=== PATIENT | male | born 1965 | race Caucasian/White ===

== ENCOUNTER → 2019-11-02 17:10 | Outpatient (CLI) | payer MEDICAID, SELFPAY ==
[2019-11-02 17:57] LABS: Chloride 103 mmol/L (98-107); Potassium 4.5 mmoL/L (3.5-5.1); Sodium 137 mmol/L (136-145)
[2019-11-02 17:59] LABS: Blood Urea Nitrogen 6 mg/dl (9-20); Estimated Glomerular Filt Rate 118 ml/min (>60); GFR (African American) 142 ML/MIN (>60)
[2019-11-02 18:00] LABS: Alanine Aminotransferase 41 U/L (12-78); Albumin Level 3.7 g/dl (3.5-5.0); Albumin/Globulin Ratio 1.3 (1.1-1.8); Alkaline Phosphatase 215 U/L (38-126); Anion Gap 11.5 mEq/L (5-15); Aspartate Amino Transferase 61 U/L (17-59); Bilirubin,Total 0.7 mg/dl (0.2-1.3); Carbon Dioxide 27 mmol/L (22.0-30.0); Globulin 2.8 g/dL (1.3-3.2); Glucose 90 mg/dl (74-100); Lipase 177 U/L (23-300); Total Protein,Serum 6.5 g/dl (6.3-8.2)
== END ==
PROVIDERS: Visit Provider Family Medicine
DX: E87.6 Hypokalemia (principal)
CPT/HCPCS: 80053; 83690

== ENCOUNTER 2019-11-15 00:03 | Inpatient (IN) | payer MEDICAID, SELFPAY ==
[2019-11-15] VITALS (22 sets, daily range): BP systolic 124–163; BP diastolic 57–94; PULSE 76–122; RESP 16–18; TEMP 36.7–36.9; O2SAT 96–100; BMI 25.8; BMI 24.6; BMI 24.7
--- NOTE | 2019-11-15 00:26 | CT_ITS ---
PROCEDURE: CT ABDOMEN PELVIS W CON CLINICAL INDICATION: abd pain Generalized abdominal with nausea and vomiting with loss of COMPARISON: No exams were available for comparison TECHNIQUE: IV Contrast: 75ML OPTIRAY 350 Oral Contrast None Axial images obtained with sagittal and coronal reformats. All CT scans at the facility use one or more dose reduction, viz: automated exposure control, ma/kV adjustment per patient size (including targeted exams where dose is matched to indication, i.e. head), or iterative reconstruction technique. FINDINGS: LOWER THORAX: No acute finding ABDOMEN & PELVIS: The liver, spleen, and adrenal glands have an unremarkable appearance. Gallbladder slightly distended with gallstones. There is wispy and homogeneous peripancreatic fluid attenuation without definite mead adjacent to the pancreatic body and tail. Edematous changes are present within the pancreas body and tail the. There is some decreased attenuation of the pancreatic tail and lateral body. A 2 mm stone is present within the pancreatic duct image 42 series 3. No pancreatic gas. There is stranding of the left anterior pararenal fascia. Edematous changes are present involving the wall the stomach. No renal or ureteral calculi or hydronephrosis. There are left renal cysts. No intestinal obstruction or free air. Unremarkable appendix. There is thickening of the descending colon. There is scattered small mesenteric lymph nodes nonspecific. IMPRESSION: The findings are compatible with acute interstitial edematous pancreatitis with acute peripancreatic inflammation with a small amount of peripancreatic fluid. There is some decreased enhancement of the tail the pancreas. Cannot exclude the possibility of acute necrotic pancreatitis. Follow-up suggested. Small stone is present in the pancreatic duct Cholelithiasis. Dictated by: Pk Jacobsen MD 11/15/2019 08:28 Electronically signed by Pk Jacobsen MD in [place] 11/15/2019 08:28
[2019-11-15 00:32] LABS: Microscopic, Urine URINE MICROSCOPIC (MICROSCOPIC)
[2019-11-15 00:33] LABS: Appearance,Urine CLEAR (Clear); Bilirubin,Urine Negative (Negative); Blood, Urine Negative (Negative); Color,Urine YELLOW (Yellow); Glucose,Urine (UA) Negative (Negative); Ketones,Urine Negative (Negative); Leukocyte Esterase,Urine Negative (Negative); Nitrate,Urine Negative (Negative); Protein,Urine Negative (Negative); Specific Gravity, Urine 1.025 (1.005-1.030); Urobilinogen,Urine 0.2 EU/dl (0.2)
[2019-11-15 01:18] LABS: Basophils % 0.3 % (0.1-2.0); Eosinophils # 0.1 K/mm3 (0.0-0.4); Eosinophils % 0.9 % (0.1-12.0); Hematocrit 48.8 % (42.0-52.0); Hemoglobin 16.9 g/dL (14.1-18.0); Lymphocytes # 2.2 K/mm3 (0.7-4.5); Lymphocytes % 17.7 % (10-50); Mean Corpuscular HGB Conc 34.7 g/dL (31.8-35.4); Mean Corpuscular Hemoglobin 32.9 pg (27.0-31.2); Mean Corpuscular Volume 94.7 fl (80-94); Mean Platelet Volume 8.1 fl (7.4-10.4); Monocytes # 0.7 K/mm3 (0.1-1.0); Monocytes % 5.9 % (1.7-9.3); Neutrophils # 9.2 K/mm3 (1.8-7.8); Neutrophils % 75.3 % (37.0-80.0); Platelet Count 313 K/mm3 (142-424); Red Blood Count 5.15 M/mm3 (4.60-6.20); Red Cell Distribution Width 13.7 % (11.5-17.5); White Blood Count 12.3 K/mm3 (4.8-10.8)
[2019-11-15 01:24] LABS: Alanine Aminotransferase 58 U/L (12-78); Albumin Level 4.6 g/dl (3.5-5.0); Albumin/Globulin Ratio 1.3 (1.1-1.8); Alkaline Phosphatase 264 U/L (38-126); Amylase 122 U/L (30-110); Anion Gap 17.7 mEq/L (5-15); Aspartate Amino Transferase 91 U/L (17-59); Bilirubin,Total 0.8 mg/dl (0.2-1.3); Blood Urea Nitrogen 7 mg/dl (9-20); Calcium 9.6 mg/dl (8.4-10.2); Carbon Dioxide 26 mmol/L (22.0-30.0); Chloride 92 mmol/L (98-107); Creatinine Clearance Estimated 154 mL/min (50-200); Estimated Glomerular Filt Rate 140 ml/min (>60); GFR (African American) 170 ML/MIN (>60); Globulin 3.5 g/dL (1.3-3.2); Glucose 140 mg/dl (74-100); Potassium 3.7 mmoL/L (3.5-5.1); Sodium 132 mmol/L (136-145); Total Protein,Serum 8.1 g/dl (6.3-8.2)
[2019-11-15 01:26] LABS: Lipase 734 U/L (23-300)
[2019-11-15 01:29] LABS: C-Reactive Protein 0.9 mg/L (0-4)
[2019-11-15 01:41] LABS: Erythrocyte Sedimentation Rate 4 mm/hr (0-20)
--- NOTE | 2019-11-15 02:54 | HMH.EDNVD ---
ED Disposition Clinical Impression: Alcohol abuse Pancreatitis, acute Qualifiers: Pancreatitis type: unspecified pancreatitis type Acute pancreatitis complication: no infection or necrosis Qualified Code(s): K85.90 - Acute pancreatitis without necrosis or infection, unspecified Cholelithiasis Qualifiers: Cholelithiasis location: gallbladder Cholecystitis presence: with cholecystitis Cholecystitis acuity: acute and chronic Biliary obstruction: without biliary obstruction Qualified Code(s): K80.12 - Calculus of gallbladder with acute and chronic cholecystitis without obstruction Disposition: Admitted As Inpatient Condition on Discharge: Fair Instructions: DI for Acute Abdomen Referrals: Richard Edgar MD [Primary Care Provider] - - Critical Care Critical Care Time: No Attestation: On 11/15/19, the high probability of a clinically significant, sudden or life threatening deterioration of the following system(s) required my full and direct attention, intervention and personal management. The time I documented below is in addition to time spent performing reported procedures but includes the following listed in this critical care notation. Medical Decision Making - Medical Records Medical records reviewed: Yes: I reviewed the patient's medical records. - Medhat Inquiry Pt receiving controlled substance: No Vital Signs: 11/15/19 00:14 Temperature 98.4 F Temperature Source Oral Pulse Rate [Right] 122 H Respiratory Rate 16 Blood Pressure [Right Arm] 155/91 H Blood Pressure Mean [Right Arm] 112 Blood Pressure Source [Right Arm] Automatic Cuff Blood Pressure Position [Right Arm] Sitting 02 Sat by Pulse Oximetry 98 Oxygen Delivery Method Room Air - Lab Data Lab results reviewed: Yes: I reviewed the patient's lab results. Lab Results 11/15/19 00:15: Urine Color Yellow, Urine Appearance Clear, Urine pH 6.0, Ur Specific [place] 1.025, Urine Protein Negative, Urine Glucose (UA) Negative, Urine Ketones Negative, Urine Blood Negative, Urine Nitrate Negative, Urine Bilirubin Negative, Urine Urobilinogen 0.2, Ur Leukocyte Esterase Negative, Urine WBC 3-5, Ur Squamous Epith Cells 3-5 11/15/19 00:15: WBC 12.3 H, RBC 5.15, Hgb 16.9, Hct 48.8, MCV 94.7 H, MCH 32.9 H, MCHC 34.7, RDW 13.7, Plt Count 313, MPV 8.1, Neut % (Auto) 75.3, Lymph % (Auto) 17.7, [place] % (Auto) 5.9, Eos % (Auto) 0.9, Baso % (Auto) 0.3, Neut # (Auto) 9.2 H, Lymph # (Auto) 2.2, [place] # (Auto) 0.7, Eos # (Auto) 0.1, Baso # (Auto) 0.0, ESR 4 11/15/19 00:15: Sodium 132 L, Potassium 3.7, Chloride 92 L, Carbon Dioxide 26, Anion Gap 17.7 H, BUN 7 L, Creatinine 0.60 L, Estimated Creat Clear 154, Estimated GFR 140, Est GFR ( Amer) 170, Glucose 140 H, Calcium 9.6, Total Bilirubin 0.8, AST 91 H, ALT 58, Alkaline Phosphatase 264 H, C-Reactive Protein 0.9, Total Protein 8.1, Albumin 4.6, Globulin 3.5 H, Albumin/Globulin Ratio 1.3, Amylase 122 H, Lipase 734 H 11/15/19 00:15: Plasma/Serum Alcohol 84 H Result diagrams: 11/15/19 00:15 11/15/19 00:15 Orders (Tests/Meds): ED MEDICATIONS Generic Name Dose Route Start Last Admin Trade Name Freq PRN Reason Stop Dose Admin Sodium Chloride 1,000 mls @ 999 mls/hr 11/15/19 00:30 11/15/19 00:33 Sod Chlor 0.9% 1000ml Bag IV 11/15/19 01:30 999 mls/hr .Q1H1M BUZZ Administration Sodium Chloride 8 ml 11/15/19 00:26 Sodium Chloride 0.9% 10ml Vial IV 12/15/19 00:25 NEEDED PRN dilute pepcid Discontinued Medications Generic Name Dose Route Start Last Admin Trade Name Freq PRN Reason Stop Dose Admin Famotidine 20 mg 11/15/19 00:26 11/15/19 00:33 Pepcid 20mg/2ml Vial IV 11/15/19 00:27 20 mg ONCE ONE Administration Ioversol 75 ml 11/15/19 01:53 11/15/19 01:54 Rad-Optiray 350 100ml Vial IV 11/15/19 01:54 75 ml ONCE ONE Administration Protocol Ketorolac Tromethamine 30 mg 11/15/19 00:32 11/15/19 00:33 Toradol 30mg/Ml Vial IV 11/15/19 00:33 30 mg ONCE ONE
[2019-11-15 03:01] LABS: Ethyl Alcohol 84 mg/dl (0-10)
--- NOTE | 2019-11-15 06:54 | P.CONPHA_ITS ---
[facility] Pharmacy VTE Monitoring - Patient Demographics Admission date: 11/15/19 Report Date: 11/15/19 Time: 06:54 Allergies/Adverse Reactions: Patient Allergies cephalexin [From Keflex] Allergy (Mild, Verified 11/15/19 00:34) Hives diphenhydramine [DIPHENHYDRAMINE] Allergy (Unknown, Verified 11/15/19 00:34) sulfamethoxazole [From BACTRIM] Allergy (Unknown, Verified 11/15/19 00:34) trimethoprim [From BACTRIM] Allergy (Unknown, Verified 11/15/19 00:34) Height: 1.73 m Weight: 73.539 kg Patient Problems: Current Active Problems Pancreatitis, acute (Acute) Cholelithiasis (Acute) Alcohol abuse (Acute) - VTE Risk Labs: VTE Related Lab Results Hgb 16.9 g/dL (14.1-18.0) 11/15/19 00:15 Hct 48.8 % (42.0-52.0) 11/15/19 00:15 Plt Count 313 K/mm3 (142-424) 11/15/19 00:15 BUN 7 mg/dl (9-20) L 11/15/19 00:15 Creatinine 0.60 mg/dl (0.66-1.25) L 11/15/19 00:15 Estimated Creat Clear 154 mL/min (50-200) 11/15/19 00:15 VTE Score: 6 VTE Risk Level: Moderate Risk - Prophylaxis VTE Prophylaxis Ordered?: Yes Types of VTE Prophylaxis: TEDS Knee High Location of Applied Device: Bilateral Lower Extremeties - VTE Diagnosis Confirmed Treatment or plan recommended: Continue Current Treatment
--- NOTE | 2019-11-15 07:17 | PC.NURSE ---
Dr. Trevino was beeped and i spoke with him about consult
--- NOTE | 2019-11-15 08:18 | US_ITS ---
PROCEDURE: US GALLBLADDER CLINICAL INDICATION: pancreatitis Abdominal pain, gallstones COMPARISON: CT ABDOMEN PELVIS W CON from 11/15/2019 FINDINGS: Pancreas: There is some heterogeneous echogenicity of pancreas. The pancreatic tail is not well delineated. Liver: Unremarkable. There is appropriate direction of blood flow within a non dilated portal vein. Right kidney: Unremarkable appearing. No hydronephrosis. Gallbladder: There are gallstones present. Common bile duct is upper normal at 6 mm. Gallbladder wall slightly thickened 4 mm. No pericholecystic fluid evident. IMPRESSION: Cholelithiasis with mildly thickened gallbladder wall. Common bile duct upper normal at 6 mm. Heterogeneous echogenicity of the pancreas in keeping with pancreatitis as seen on recent CT Dictated by: Pk Jacobsen MD 11/15/2019 10:29 Electronically signed by Pk Jacobsen MD in [place] 11/15/2019 10:29
--- NOTE | 2019-11-15 08:26 | HMH.GSCON ---
*Admission Date: 11/15/19 *Reason for consult:: Gallstones, pancreatitis *History of present illness: Patient is a 54-year-old white male with admitted history of alcohol abuse with several hospitalizations for pancreatitis in the past. He does apparently have a history of gallstones. He was scheduled to see me in the office as an outpatient today due to his history of gallstones. Patient presented to the emergency department with cramping abdominal pain and was found to have elevated amylase and lipase. He was admitted for inpatient management and surgical consultation. Patient admits to drinking every day both day and night. Review of Systems - Review of Systems Review of systems:: pertinent systems reviewed and negative unless documented below - *Neurologic Denies localized weakness, Denies seizure-like activity [facility] History Medical History: Reports:: Anxiety, Cancer (lung, spine), Depression, MRSA Denies:: Diabetes Mellitus Type 1, Diabetes Mellitus Type 2 *Have you ever received a pneumonia vaccine?: Yes *Have you received a flu vaccine this season?: Yes Other Surgeries: Yes: No Previous Surgery Amputation: No Fractures: No - *Social History Smoking Status: Current every day smoker Tobacco Type: cigarettes # Packs/Day (cigarettes): 2 Alcohol Intake: current Alcohol Intake Frequency:: 3 or more drinks per day Substance Use Type: denies use *Occupational Status:: disabled *Travel in the last 8 weeks: None - Psychiatric History Pschychiatric History:: Reports:: Anxiety, Depression Family Hx:: Bleeding Disorder, Cancer, Alcoholism Meds Home Medications Medication Instructions Recorded Confirmed Type buspirone 15 mg tablet 15 mg PO TID tab 11/02/19 11/15/19 History levetiracetam 500 mg tablet 500 mg PO BID tab 11/02/19 11/15/19 History lorazepam 2 mg tablet 2 mg PO TID tab 11/02/19 11/15/19 History omeprazole 40 mg capsule,delayed 40 mg PO DAILY cap 11/02/19 11/15/19 History release potassium chloride 10 mEq 10 meq PO DAILY cap 11/02/19 11/15/19 History capsule,extended release Hydrocodone/Acetaminophen [[place] 1 each PO TID 11/15/19 11/15/19 History 5-325 Tablet] Leucovorin/Pyridox/Mecobalamin 1 each PO DAILY 11/15/19 11/15/19 History [Folinic-Plus Caplet] Thiamine Mononitrate (Vit B1) 100 mg PO DAILY 11/15/19 11/15/19 History [Vitamin B-1] Vitamin B Complex [B Complex] 1 each PO DAILY 11/15/19 11/15/19 History Allergies Allergy/AdvReac Type Severity Reaction Status Date / Time cephalexin [From Keflex] Allergy Mild Hives Verified 11/15/19 00:34 diphenhydramine Allergy Unknown Verified 11/15/19 00:34 [DIPHENHYDRAMINE] sulfamethoxazole Allergy Unknown Verified 11/15/19 00:34 [From BACTRIM] trimethoprim [From BACTRIM] Allergy Unknown Verified 11/15/19 00:34 Exam Vital signs and Labs for Last 24 Hours: Temp Pulse Resp BP Pulse Ox 98.0 F 117 H 16 149/94 H 97 11/15/19 07:56 11/15/19 07:56 11/15/19 07:56 11/15/19 07:56 11/15/19 07:56 Laboratory Results - last 24 hr 11/15/19 00:15: Urine Color Yellow, Urine Appearance Clear, Urine pH 6.0, Ur Specific [place] 1.025, Urine Protein Negative, Urine Glucose (UA) Negative, Urine Ketones Negative, Urine Blood Negative, Urine Nitrate Negative, Urine Bilirubin Negative, Urine Urobilinogen 0.2, Ur Leukocyte Esterase Negative, Urine WBC 3-5, Ur Squamous Epith Cells 3-5 11/15/19 00:15: WBC 12.3 H, RBC 5.15, Hgb 16.9, Hct 48.8, MCV 94.7 H, MCH 32.9 H, MCHC 34.7, RDW 13.7, Plt Count 313, MPV 8.1, Neut % (Auto) 75.3, Lymph % (Auto) 17.7, [place] % (Auto) 5.9, Eos % (Auto) 0.9, Baso % (Auto) 0.3, Neut # (Auto) 9.2 H, Lymph # (Auto) 2.2, [place] # (Auto) 0.7, Eos # (Auto) 0.1, Baso # (Auto) 0.0, ESR 4 11/15/19 00:15: Sodium 132 L, Potassium 3.7, Chloride 92 L, Carbon Dioxide 26, Anion Gap 17.7 H, BUN 7 L, Creatinine 0.60 L, Estimated Creat Clear 154, Estimated GFR 140, Est GFR ( Amer) 170, Glucose 140 H, Calcium 9.6, Total [place]
--- NOTE | 2019-11-15 08:57 | CT_ITS ---
PROCEDURE: CT CHEST W CON CLINCAL INDICATION: elevated alkaline phos with history of lung cancer Pain COMPARISON: CXR CHEST(2 VIEWS-NOT PORTABLE) from 09/22/2012 CT ABDOMEN PELVIS W CON from 11/15/2019 TECHNIQUE: IV Contrast: 75ml Optiray 350 Axial images obtained with sagittal and coronal reformats. All CT scans at the facility use one or more dose reduction, viz: automated exposure control, ma/kV adjustment per patient size (including targeted exams where dose is matched to indication, i.e. head), or iterative reconstruction technique. FINDINGS: HEART AND MEDIASTINAL STRUCTURES: No mediastinal or hilar mass or adenopathy. There is mild thickening of the distal esophagus which is nonspecific. LUNGS AND PLEURAL SPACES: Changes COPD. Irregular opacity is present along the upper aspect of the right major fissure at 13 by 7 mm. This is flat like in nature and could be due to an area of scarring or an area of treated neoplasm. There are no old CTs available for comparison at this institution. No lobar consolidation or collapse. No effusions. Minimal nodularity in the CP angle posteriorly on the left which is nonspecific. The. BONY STRUCTURES: There is mild thoracic curvature convex right. There is degenerative disc disease at C7-T1. No bony lytic or blastic lesions are evident. UPPER ABDOMEN: Changes of acute pancreatitis again noted.. There is some decreased enhancement of the tail of the pancreas compared to the body edema and fluid along the left anterior pararenal fascia noted. Cholelithiasis present. Fluid collections ADDITIONAL FINDINGS: Gynecomastia IMPRESSION: 1. COPD with irregular opacity along the right major fissure which could be due to an area of scarring or even treated neoplasm. Suggest 3 month follow-up to confirm stability as active neoplasm is not excluded. No previous studies available at this institution 2. No lytic or bony blastic lesions evident. There is degenerative disc disease at C7-T1 3. Acute pancreatitis. There is some decreased enhancement of the tail the pancreas compared to the body raising the suspicion of acute necrotic pancreatitis. Recommend follow-up . Dictated by: Pk Jacobsen MD 11/15/2019 10:38 Electronically signed by Pk Jacobsen MD in [place] 11/15/2019 10:38
--- NOTE | 2019-11-15 09:03 | HMH.HP ---
*Admission Date: 11/15/19 *Chief complaint: Abdominal pain with pancreatitis *History of present illness: Is a 54-year-old white male, followed by my practice. He was admitted last evening for increasing abdominal pain, clinical findings suggesting pancreatitis. This is his third hospital admission for pancreatitis. He was previously at [facility] in [place]. By his history previous imaging studies have suggested gallstones. We did have a pending surgery consult to address this. It also seems that alcohol is a factor. RONALD in the emergency room was 84. He does admit to drinking on a regular basis. He has been a somewhat heavy drinker for several years. On admission his white cell count was slightly elevated, his amylase and lipase were slightly elevated, and his alkaline phosphatase was slightly elevated. He is currently n.p.o., on seizure precautions, getting IV fluid, and has Ativan on board for seizures and withdrawal. He was previously taking Keppra, his last seizure was about a year and a half ago. We have spoken to the pharmacist regarding his regimen. Is had no seizure activity since being admitted. Reports moderate mid epigastric discomfort. He has had vomiting on a few occasions, no hematemesis, no black tarry stool, no overt signs of blood loss. He has no jaundiced, no flap, and is at his baseline mentation. [facility] History Medical History: Reports:: Anxiety, Cancer (lung, spine), Depression, MRSA Denies:: Diabetes Mellitus Type 1, Diabetes Mellitus Type 2 *Have you ever received a pneumonia vaccine?: Yes *Have you received a flu vaccine this season?: Yes Other Surgeries: Yes: No Previous Surgery Amputation: No Fractures: No - *Social History Smoking Status: Current every day smoker Tobacco Type: cigarettes # Packs/Day (cigarettes): 2 Alcohol Intake: current Alcohol Intake Frequency:: 3 or more drinks per day Substance Use Type: denies use *Occupational Status:: disabled *Travel in the last 8 weeks: None - Psychiatric History Expresses thoughts of harming self/others: None Pschychiatric History:: Reports:: Anxiety, Depression Family Hx:: Bleeding Disorder, Cancer, Alcoholism Review of Systems - Constitutional Reports weight loss - Eyes Denies blind spots - ENT Denies abnormal hearing - *Cardiovascular Denies chest pain, Denies shortness of breath - *Respiratory Denies change in phlegm color - *Gastrointestinal Reports abdominal pain, Reports bloating, Reports heartburn, Reports vomiting, Denies coffee ground vomit, Denies vomiting blood, Denies bright, red blood in stools - *Genitourinary Denies difficulty urinating - *Musculoskeletal Denies loss of height - Integumentary/Breasts Denies bleeding lesions - *Neurologic Denies localized weakness, Denies seizure-like activity - Psychiatric Reports anxiety, Denies confusion, Denies paranoia - Allergic/Immunologic Denies GI upset with certain foods Meds Home Medications Medication Instructions Recorded Confirmed Type buspirone 15 mg tablet 15 mg PO TID tab 11/02/19 11/15/19 History levetiracetam 500 mg tablet 500 mg PO BID tab 11/02/19 11/15/19 History lorazepam 2 mg tablet 2 mg PO TID tab 11/02/19 11/15/19 History omeprazole 40 mg capsule,delayed 40 mg PO DAILY cap 11/02/19 11/15/19 History release potassium chloride 10 mEq 10 meq PO DAILY cap 11/02/19 11/15/19 History capsule,extended release Hydrocodone/Acetaminophen [[place] 1 each PO TID 11/15/19 11/15/19 History 5-325 Tablet] Leucovorin/Pyridox/Mecobalamin 1 each PO DAILY 11/15/19 11/15/19 History [Folinic-Plus Caplet] Thiamine Mononitrate (Vit B1) 100 mg PO DAILY 11/15/19 11/15/19 History [Vitamin B-1] Vitamin B Complex [B Complex] 1 each PO DAILY 11/15/19 11/15/19 History Allergies Allergy/AdvReac Type Severity Reaction Status Date / Time cephalexin [From Keflex] Allergy Mild Hives Verified 11/15/19 00:34 diphenhydramine Allergy Unknown
--- NOTE | 2019-11-15 09:16 | PC.NURSE ---
PT TO RADIOLOGY AT THIS TIME PER W/C FOR GALLBLADDER U/S
--- NOTE | 2019-11-15 09:38 | HMH.PHAINT ---
COMPLETED MEDICATION RECONCILIATION USING EXTERNAL FILL HISTORY AND PHARMACY
--- NOTE | 2019-11-15 10:37 | FL_ITS ---
PROCEDURE: FL ERCP CLINICAL INDICATION: acute pancreatitis with cholelithiasis COMPARISON: No exams were available for comparison FINDINGS: Fluoroscopy time: 1 minutes 55 seconds. Select images submitted from the ERCP showing normal caliber common bile duct. No radiographic intraluminal filling defects were apparent. The gallbladder did not fill. Pancreatic duct was cannulated with a small amount of contrast injected showing some irregularity of the pancreatic duct. There were some possible filling defects in the pancreatic duct versus air bubbles. IMPRESSION: Irregular appearance of the pancreatic duct suggesting chronic pancreatitis with questionable small stones in the pancreatic duct. Please correlate with fluoroscopic findings. No obvious choledocholithiasis Dictated by: Pk Jacobsen MD 11/17/2019 18:40 Electronically signed by Pk Jacobsen MD in [place] 11/17/2019 18:40
[2019-11-15 11:32] LABS: Chloride 102 mmol/L (98-107); Lymphocytes # 0.4 K/mm3 (0.7-4.5); Mean Corpuscular HGB Conc 35.4 g/dL (31.8-35.4); Monocytes # 0.4 K/mm3 (0.1-1.0); White Blood Count 8.7 K/mm3 (4.8-10.8)
[2019-11-15 11:33] LABS: Potassium 4.2 mmoL/L (3.5-5.1); Sodium 133 mmol/L (136-145)
[2019-11-15 11:35] LABS: Alanine Aminotransferase 50 U/L (12-78); Alkaline Phosphatase 208 U/L (38-126); Anion Gap 8.2 mEq/L (5-15); Aspartate Amino Transferase 86 U/L (17-59); Bilirubin,Total 1.4 mg/dl (0.2-1.3); Blood Urea Nitrogen 6 mg/dl (9-20); Carbon Dioxide 27 mmol/L (22.0-30.0); Creatinine Clearance Estimated 125 mL/min (50-200); Estimated Glomerular Filt Rate 118 ml/min (>60); GFR (African American) 142 ML/MIN (>60); Phosphorous 3.7 mg/dl (2.5-4.5)
[2019-11-15 11:36] LABS: Albumin Level 3.5 g/dl (3.5-5.0); Albumin/Globulin Ratio 1.2 (1.1-1.8); Amylase 87 U/L (30-110); Calcium 8.8 mg/dl (8.4-10.2); Glucose 115 mg/dl (74-100); Magnesium 1.6 mg/dl (1.6-2.3); Total Protein,Serum 6.5 g/dl (6.3-8.2)
[2019-11-15 11:39] LABS: Basophils % 0.3 % (0.1-2.0); Eosinophils # 0.1 K/mm3 (0.0-0.4); Eosinophils % 1.6 % (0.1-12.0); Hematocrit 42.9 % (42.0-52.0); Lymphocytes % 4.2 % (10-50); Mean Corpuscular Hemoglobin 33.6 pg (27.0-31.2); Monocytes % 4.2 % (1.7-9.3); Neutrophils # 7.8 K/mm3 (1.8-7.8); Neutrophils % 89.7 % (37.0-80.0); Platelet Count 169 K/mm3 (142-424); Red Blood Count 4.52 M/mm3 (4.60-6.20); Red Cell Distribution Width 13.6 % (11.5-17.5)
[2019-11-15 11:40] LABS: Hemoglobin 15.2 g/dL (14.1-18.0)
[2019-11-15 11:44] LABS: MANUAL DIFFERENTIAL MANUAL DIFFERENTIAL (MANUAL DIFF)
[2019-11-15 12:35] LABS: Benzodiazepines Screen,Urine Negative ng/ml (<200)
[2019-11-15 12:36] LABS: Amphetamine/Metha Screen,Urine Negative ng/ml (<1000); Barbiturates Screen,Urine Negative ng/ml (<200)
[2019-11-15 12:38] LABS: Cannabinoid Screen,Urine Negative ng/ml (<50); Cocaine Screen,Urine Negative ng/ml (<300)
[2019-11-15 12:39] LABS: Methadone Screen,Urine Negative ng/ml (<300); Opiate Screen,Urine Positive ng/ml (<300)
[2019-11-15 12:40] LABS: Phencyclidine Screen,Urine Negative ng/ml (<25)
[2019-11-15 12:56] LABS: Activated Partial Thrombo Time 26.8 seconds (23.6-34.0); INR 1.18 (0.9-1.1); Prothrombin Time 12.1 seconds (9.4-11.8)
[2019-11-15 13:19] LABS: Eosinophils % 1 % (0-3); Lymphocytes % 4 % (10-50); Monocytes % 5 % (2-9); Neutrophils % 90 % (42-76); Platelet Estimate Normal; RBC Morphology Normal; Total Cells Counted 100
[2019-11-15 13:30] LABS: Coronavirus 19 IgG Antibody Negative (Negative); Coronavirus 19 IgM Antibody Negative (Negative)
--- NOTE | 2019-11-15 14:52 | PC.NURSE ---
pt off floor for procedure
--- NOTE | 2019-11-15 16:44 | HMH.PROC ---
[facility] Procedure Note Procedure Note:: ERCP procedure Report: Endoscopic retrograde cholangiopancreatography with biliary sphincterotomy, balloon extraction and cold biopsies Endoscopist: Tino Jack II, MD Referring Physician: Nelson Edgar MD Date of Procedure: November 15, 2019 Equipment: Olympus 180 side viewing endoscope duodenoscope Sedation: MAC sedation Indication: Mr. Casarez is a 54-year-old gentleman with his third bout of pancreatitis. The patient does have a history of heavy alcohol use. He also has a history of gallstones. He presents again with pancreatitis and his CAT scan did show decreased attenuation within the tail of the pancreas with a 2 mm stone in the head of the pancreas. The patient's amylase 122 and lipase 734 were mildly elevated. The patient's alkaline phosphatase 264 was moderately elevated but there was no clear evidence of biliary ductal dilation. The patient's transaminases were AST 91 and ALT 58 (transaminase ratio favoring alcohol). There was evidence of gallbladder stone/cholelithiasis but no clear evidence of cholecystitis. The patient is on hydrocodone/[place]. Procedure: Prior to the procedure, a history and physical exam was performed, and patient's medications and allergies were reviewed. The risks, benefits and alternatives of the sedation and procedure were discussed with the patient. All questions were answered and informed consent was obtained. The patient was brought to the fluoroscopic radiology room. Patient identification and proposed procedure were verified by the physician and the nurse. The patient was placed in a swimmer's position between left lateral decubitus and prone position and the scope was passed under direct vision. Throughout the procedure, the patient's blood pressure, pulse, and oxygen saturations were monitored continuously. The ERCP was accomplished without difficulty. The patient tolerated the procedure well. Findings: The side-viewing duodenal scope was passed directly into the upper esophagus and advanced to the second portion of the duodenum. The esophagus was normal without evidence of reflux esophagitis, Venegas's or varices. The stomach had moderate chronic gastritis and cold biopsies were obtained to rule out H. pylori. The duodenal bulb and post bulbar duodenum were normal. The ampulla was well visualized. Both the pancreatic duct and common bile duct were cannulated selectively. The pancreatogram did show a beaded and irregular pancreatic duct in the head and neck of the pancreas with some mild stricturing at the junction of the neck and body of the pancreas and evidence of chronic pancreatitis. There were some ductular ectasias. The common bile duct was cannulated and there was some mild stenosis at the ampulla suggestive of some sphincter of Oddi dysfunction. There was delayed drainage of contrast and bile after injection of contrast. The common bile duct was 7 to 8 mm (mildly dilated). There was a lack of filling of the cystic duct and gallbladder. The intrahepatic biliary system appeared to be normal and there were no strictures or filling defects identified. A biliary sphincterotomy was made generously. A 9 mm sweeping balloon was placed at the hilum and swept through the biliary system with the passage of mostly bile and contrast but some sludge which was thick and bright yellow consistent with early choledocholithiasis. After complete decompression of the biliary system the procedure was ended. Impression: 1. 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 Mild chronic pancreatitis Plan: The patient does have multiple reasons for pancreatitis including alcohol and choledocholithiasis. Opiates are an independent risk factor for pancreatitis and sphincter of Oddi dysfunction. Biliary sphincterotomy with balloon clearance should help. I would recommend
--- NOTE | 2019-11-15 17:05 | PC.NURSE ---
pt back to the floor from procedure
--- NOTE | 2019-11-15 18:13 | HMH.CONS ---
*Admission Date: 11/15/19 *Reason for consult:: Acute pancreatitis *History of present illness: Patient is a 54-year-old white male with long history of alcohol abuse. He reports 8-10 alcoholic drinks per day since he was a teenager and smokes 2 packs of cigarettes per day. He also reports that this is his third episode of acute pancreatitis this year. Upon arrival here with acute abdominal pain, his amylase was 122 and his lipase was 734 he also an elevation of his AST of 91 and alk phos of 264 which favors alcoholism. He did have a blood alcohol level of 84 on arrival to the ED as well. He reports a diagnosis of enlarged liver a couple of years ago but he denies any further diagnoses or treatment for any liver dysfunction. He denies any history of cirrhosis. He did have a CT scan that showed interstitial acute edematous pancreatitis and possibly a small stone present in the pancreatic duct. Dr. Trevino was consulted regarding possible cholecystectomy and recommends surgery after the acute pancreatitis resolves. The patient reports intermittent but ongoing abdominal discomfort that radiates straight through to his back. His abdomen is generally tender to palpation but mildly, worse left upper quadrant. He is normotensive with good urine output and moist mucous membranes with current IV hydration. He has seen Dr. Trevino for surgical consult regarding his cholelithiasis who recommends cholecystectomy after resolution of acute pancreatitis episode. [facility] History Medical History: Reports:: Anxiety, Cancer (lung, spine), Depression, MRSA Denies:: Diabetes Mellitus Type 1, Diabetes Mellitus Type 2 *Have you ever received a pneumonia vaccine?: Yes *Have you received a flu vaccine this season?: Yes Comment:: Chronic alcohol abuse Other Surgeries: Yes: No Previous Surgery Amputation: No Fractures: No - *Social History Smoking Status: Current every day smoker Tobacco Type: cigarettes # Packs/Day (cigarettes): 2 Alcohol Intake: current Alcohol Intake Frequency:: 3 or more drinks per day Substance Use Type: denies use *Occupational Status:: disabled *Travel in the last 8 weeks: None - Psychiatric History Expresses thoughts of harming self/others: None Pschychiatric History:: Reports:: Anxiety, Depression Family Hx:: Bleeding Disorder, Cancer, Alcoholism Review of Systems - Constitutional Denies anorexia, Denies chills, Denies fever(s) - Eyes Denies blurry vision, Denies discharge, Denies pain - ENT Denies abnormal hearing, Denies dizziness, Denies difficulty swallowing, Denies headache(s) - *Cardiovascular Denies chest pain, Denies shortness of breath, Denies leg swelling - *Respiratory Denies chest congestion, Denies cough, Denies shortness of breath, Denies wheezing - *Gastrointestinal Reports abdominal pain, Reports nausea, Denies belching, Denies bloating, Denies change in bowel habits, Denies heartburn, Denies bright, red blood in stools, Denies black, tarry stools, Denies vomiting - *Genitourinary Denies difficulty urinating, Denies blood in urine, Denies urinary incontinence - *Musculoskeletal Denies abnormal walking, Denies muscle weakness - Integumentary/Breasts Denies skin ulcer, Denies sores, Denies wounds - *Neurologic Denies abnormal hearing, Denies confusion, Denies localized weakness, Denies headache(s), Denies numbness, Denies seizure-like activity - Psychiatric Reports anxiety - Endocrine Denies cold intolerance, Denies heat intolerance Meds Home Medications Medication Instructions Recorded Confirmed Type buspirone 15 mg tablet 15 mg PO TID tab 11/02/19 11/15/19 History levetiracetam 500 mg tablet 500 mg PO BID tab 11/02/19 11/15/19 History lorazepam 2 mg tablet 2 mg PO TID tab 11/02/19 11/15/19 History omeprazole 40 mg capsule,delayed 40 mg PO DAILY cap 11/02/19 11/15/19 History release potassium chloride 10 mEq 10 meq PO DAILY cap 11/02/19 11/15/19 History capsule,extended release
--- NOTE | 2019-11-15 19:01 | PC.NURSE ---
Pt has rested in bed this shift. He reports abd pain as a 1-2/. Tylenol administered and pt resting w/eyes closed upon reassessment. He utilizes a urinal at bedside with 650mls of clear yellow urine out this shift. He has been anxious, prn ativan given x2 with relief noted. CIWA's have been zero. He remains on seizure precautions. No further questions or complaints.
--- NOTE | 2019-11-15 19:18 | PC.NURSE ---
report given to fátima
[2019-11-16] VITALS: BP 151/82; PULSE 87; RESP 18; TEMP 36.8; O2SAT 99
--- NOTE | 2019-11-16 03:07 | PC.NURSE ---
A&OX4. PT HAS TOLERATED ROOM AIR WELL THROUGHOUT SHIFT. RESPIRATIONS REGULAR AND UNLABORED. LUNG SOUNDS BILATERALLY CLEAR. NO COUGH NOTED. ABDOMEN SOFT AND TENDER. BOWEL SOUNDS HEARD IN ALL 4 QUADRANTS. HEART RATE REGULAR. PT HAS AMBULATED TO THE RESTROOM WITH STANDBY ASSIST. PT TOLERATED WELL. STEADY GAIT NOTED. PT HAS REPORTED PAIN 10/10 SEVERAL TIMES THROUGHOUT SHIFT. PT HAS RECEIVED MORPHINE PER MAR NEEDED WELL TYLENOL. ON REASSESSMENT, PT HAS BEEN PLAYING ON HIS PHONE OR RESTING W HIS EYES CLOSED. PT STATES MORPHINE HASN'T HELPED HIS PAIN AND HE HASN'T SLEPT. SEVERAL TIMES STAFF MEMBERS HAVE SEEN THE PATIENT RESTING W EYES CLOSED OR CONVERSING ON THE PHONE AND LAUGHING. PT HAS ALSO RECEIVED ATIVAN PER MAR NEEDED TO HELP W HIS ANXIETY. CIWA ASSESSMENT HAS BEEN PERFORMED NEEDED WITH A SCORE OF 0-1 THROUGHOUT THE SHIFT. WILL CONTINUE TO MONITOR. NS INFUSING AT 100ML/HR. PT CURRENTLY RESTING IN BED. BED IN LOWEST POSITION. CALL LIGHT WITHIN REACH. VSS. NO CONCERNS AT THIS TIME. WILL CONTINUE TO MONITOR.
[2019-11-16 03:58] VITALS: BP 152/88; PULSE 83; RESP 20; TEMP 36.7; O2SAT 98
[2019-11-16 03:59] VITALS: BMI 25.9
[2019-11-16 06:42] LABS: Basophils % 0.7 % (0.1-2.0); Eosinophils # 0.2 K/mm3 (0.0-0.4); Eosinophils % 4.1 % (0.1-12.0); Hematocrit 42.2 % (42.0-52.0); Hemoglobin 14.8 g/dL (14.1-18.0); Lymphocytes # 1.1 K/mm3 (0.7-4.5); Lymphocytes % 17.9 % (10-50); Mean Corpuscular Hemoglobin 33.8 pg (27.0-31.2); Mean Corpuscular Volume 96.4 fl (80-94); Mean Platelet Volume 8.7 fl (7.4-10.4); Monocytes # 0.5 K/mm3 (0.1-1.0); Monocytes % 7.7 % (1.7-9.3); Neutrophils # 4.1 K/mm3 (1.8-7.8); Neutrophils % 69.6 % (37.0-80.0); Platelet Count 129 K/mm3 (142-424); Red Blood Count 4.38 M/mm3 (4.60-6.20); Red Cell Distribution Width 13.6 % (11.5-17.5); White Blood Count 5.8 K/mm3 (4.8-10.8)
[2019-11-16 06:49] LABS: Chloride 103 mmol/L (98-107); Potassium 3.7 mmoL/L (3.5-5.1); Sodium 132 mmol/L (136-145)
[2019-11-16 06:51] LABS: Lipase 1733 U/L (23-300)
[2019-11-16 06:52] LABS: Alanine Aminotransferase 47 U/L (12-78); Albumin Level 3.3 g/dl (3.5-5.0); Alkaline Phosphatase 233 U/L (38-126); Amylase 119 U/L (30-110); Anion Gap 8.7 mEq/L (5-15); Aspartate Amino Transferase 76 U/L (17-59); Blood Urea Nitrogen 7 mg/dl (9-20); Calcium 8.9 mg/dl (8.4-10.2); Carbon Dioxide 24 mmol/L (22.0-30.0); Creatinine Clearance Estimated 154 mL/min (50-200); Estimated Glomerular Filt Rate 140 ml/min (>60); GFR (African American) 170 ML/MIN (>60); Globulin 3.2 g/dL (1.3-3.2); Glucose 75 mg/dl (74-100); Total Protein,Serum 6.5 g/dl (6.3-8.2)
[2019-11-16 07:42] VITALS: BP 143/80; PULSE 100; RESP 16; TEMP 36.6; O2SAT 96
--- NOTE | 2019-11-16 08:40 | HMH.ACPN2 ---
Internal Medicine - PN: Subj *Date: 11/16/19 *Time: 08:40 Interval history: Findings: The side-viewing duodenal scope was passed directly into the upper esophagus and advanced to the second portion of the duodenum. The esophagus was normal without evidence of reflux esophagitis, Venegas's or varices. The stomach had moderate chronic gastritis and cold biopsies were obtained to rule out H. pylori. The duodenal bulb and post bulbar duodenum were normal. The ampulla was well visualized. Both the pancreatic duct and common bile duct were cannulated selectively. The pancreatogram did show a beaded and irregular pancreatic duct in the head and neck of the pancreas with some mild stricturing at the junction of the neck and body of the pancreas and evidence of chronic pancreatitis. There were some ductular ectasias. The common bile duct was cannulated and there was some mild stenosis at the ampulla suggestive of some sphincter of Oddi dysfunction. There was delayed drainage of contrast and bile after injection of contrast. The common bile duct was 7 to 8 mm (mildly dilated). There was a lack of filling of the cystic duct and gallbladder. The intrahepatic biliary system appeared to be normal and there were no strictures or filling defects identified. A biliary sphincterotomy was made generously. A 9 mm sweeping balloon was placed at the hilum and swept through the biliary system with the passage of mostly bile and contrast but some sludge which was thick and bright yellow consistent with early choledocholithiasis. After complete decompression of the biliary system the procedure was ended. Impression: 1. 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 Mild chronic pancreatitis Plan: The patient does have multiple reasons for pancreatitis including alcohol and choledocholithiasis. Opiates are an independent risk factor for pancreatitis and sphincter of Oddi dysfunction. Biliary sphincterotomy with balloon clearance should help. I would recommend elective cholecystectomy. He has been seen by Dr. Parviz Trevino. I would like for him to have fecal elastase testing to rule out exocrine pancreatic insufficiency. I will also obtain CA-19-9 level. I would still initiate pancreatic digestive enzyme supplementation with Creon 36 2 capsules with meals. He should remain on omeprazole. I also feel that he has some alcoholic pancreatitis. He also had chronic gastritis and will rule out H. pylori. He will need follow-up as an outpatient. Patient underwent ERCP and biliary sphincterotomy yesterday per Dr. Jack. The result is included above. He is also been seen in consultation with general surgery, they have recommended elective cholecystectomy once the acute pancreatitis resolves. The patient reports ongoing abdominal discomfort. His labs this morning showed a white count of 5.8, hemoglobin of 14.8 a bilirubin of 2.0. His lipase remains elevated at 1733, up from the mid 700s yesterday. His amylase is 119. Remains n.p.o. There is some anxiety but no seizure activity. We will resume his Keppra. His history of lung cancer we also performed a CT of his chest yesterday. This showed some COPD changes. There was an opacity demonstrated along the right major fissure, more suggestive of scar tissue formation than an active neoplasm. Reevaluation in 3 months was recommended. Patient was treated with Keytruda in the past. He has not had much in the way of bowel movements, is not taking anything p.o. yet. We will increase his IV fluids to 175, and increase his morphine coverage to 2 mg IV every 2 hours as needed Exam Vital signs and Labs for Last 24 Hours: Temp Pulse Resp BP Pulse Ox 97.8 F 100 H 16 143/80 H 96 11/16/19 07:42 11/16/19 07:42 11/16/19 07:42 11/16/19 07:42 11/16/19 07:42 Laboratory Results - last 24 hr 11/15/19 00:15: U
--- NOTE | 2019-11-16 10:01 | SW/DCPLANNER ---
I have received a referral for this patient regarding alcohol cessation programs. I have spoke with this patient this morning regarding referral and resources. I have provided this patient with a list of : AA classes in [place], Inpatient and Outpatient resources. Patient did not express much interested stating I will look over paper later but was appreciative. I will follow up with this patient prior to discharge regarding resources. I will assist this patient in setting up resources if interested.
[2019-11-16 15:59] VITALS: BP 145/85; PULSE 98; RESP 18; TEMP 36.4; O2SAT 98
[2019-11-16 19:47] VITALS: BP 130/92; PULSE 101; RESP 18; TEMP 36.8; O2SAT 98
--- NOTE | 2019-11-16 19:48 | PC.NURSE ---
pt has c/o of abd pain every 2 hours. rating it a 10/10. prn meds given as ordered. pt walks in the room, in a good mood, had family visit today. vss. will cont. to monitor.
--- NOTE | 2019-11-16 19:49 | PC.NURSE ---
nurse made aware of blood pressure and heart rate
[2019-11-16 20:00] VITALS: PULSE 101
--- NOTE | 2019-11-16 22:49 | PC.NURSE ---
Late entry: @ 2029 pt very agitated with staff, stating he needs hydrocortisone for my butt, the itching is driving me crazy and when staff was asking the pt to describe further and assess the area pt kept saying huh? and what? and as staff tried to speak louder, pt sat up in bed and shouted don't yell at me! You can drop the attitude! . Staff again tried to explain to pt I was not yelling but trying to speak louder d/t him asking Huh and what after my questions. When addressing CIWA questions, pt was asked by this RN if he was hearing or seeing and disturbances and pt stated Yea, you . When asked is he was experiencing any nausea or GI upset pt stated I am gagging but nothing comes up , pt denied feeling sick to his stomach pt also denies forcing himself to throw-up. As pt was c/o his bottom itching, this RN s/w Dr. Gates about a hydrocortisone or like order for pt, no new order for this issue at this time. Staff will continue to use the barrier ointment and/or powder. Pt also requested a diaper at shift change d/t having occasional bowel incontinence when he has pancreatitis, and then the next sentence, pt requested something to help me poop, I feel like I need to . Pt reports his last BM was 11/15/2019 and denied any loose stool or incontinence a that time. When this RN was addressing this issue during his assessment and med pass, pt became very agitated and denied he ever asked for a diaper or stool med. Pt has men's briefs in his bathroom and when asked about it pt stated My mom brought those because you don't have any male underwear for me here. Pt is currently wearing mesh underwear provided by [employer] shift. Administered meds per MAR and gave PRN ativan d/t agitation and anxiety. Will continue to monitor.
[2019-11-17 04:00] VITALS: BP 161/80; PULSE 104; RESP 20; TEMP 36.9; O2SAT 97
[2019-11-17 04:47] VITALS: BMI 24.4
--- NOTE | 2019-11-17 04:51 | PC.NURSE ---
A&OX4 pt lungs clear throughout. pt has C/O Abd pain and being anxious and has been medicated per JUL. Dr smith changed pain meds to dilaudid Q4.On reaccessment pain had decrease. Pt also C/O of an itching rectum, Pt was given moisture barrier cream and offer to have a shower set up for him but he declined. Pt has rested several hours during shift.
[2019-11-17 08:00] VITALS: BP 121/79; PULSE 105; RESP 18; TEMP 36.9; O2SAT 96
[2019-11-17 08:05] LABS: Chloride 102 mmol/L (98-107); Potassium 3.7 mmoL/L (3.5-5.1); Sodium 133 mmol/L (136-145)
[2019-11-17 08:07] LABS: Alanine Aminotransferase 35 U/L (12-78); Aspartate Amino Transferase 52 U/L (17-59); Blood Urea Nitrogen 7 mg/dl (9-20); Creatinine Clearance Estimated 146 mL/min (50-200); Estimated Glomerular Filt Rate 140 ml/min (>60); GFR (African American) 170 ML/MIN (>60)
[2019-11-17 08:08] LABS: Albumin Level 3.4 g/dl (3.5-5.0); Albumin/Globulin Ratio 1.2 (1.1-1.8); Alkaline Phosphatase 228 U/L (38-126); Anion Gap 11.7 mEq/L (5-15); Bilirubin,Total 2.2 mg/dl (0.2-1.3); Calcium 8.8 mg/dl (8.4-10.2); Carbon Dioxide 23 mmol/L (22.0-30.0); Globulin 2.9 g/dL (1.3-3.2); Glucose 88 mg/dl (74-100); Total Protein,Serum 6.3 g/dl (6.3-8.2)
[2019-11-17 08:22] LABS: Basophils # 0.1 K/mm3 (0-0.2); Basophils % 1.5 % (0.1-2.0); Eosinophils # 0.2 K/mm3 (0.0-0.4); Eosinophils % 2.1 % (0.1-12.0); Hematocrit 44.6 % (42.0-52.0); Hemoglobin 13.9 g/dL (14.1-18.0); Lymphocytes # 1.6 K/mm3 (0.7-4.5); Lymphocytes % 18.5 % (10-50); Mean Corpuscular HGB Conc 31.2 g/dL (31.8-35.4); Mean Corpuscular Hemoglobin 33.4 pg (27.0-31.2); Mean Corpuscular Volume 107.1 fl (80-94); Mean Platelet Volume 11.9 fl (7.4-10.4); Monocytes # 0.6 K/mm3 (0.1-1.0); Monocytes % 6.6 % (1.7-9.3); Neutrophils # 6.2 K/mm3 (1.8-7.8); Neutrophils % 72.7 % (37.0-80.0); Platelet Count 139 K/mm3 (142-424); Red Blood Count 4.16 M/mm3 (4.60-6.20); Red Cell Distribution Width 20.7 % (11.5-17.5); White Blood Count 8.6 K/mm3 (4.8-10.8)
[2019-11-17 08:36] LABS: Lipase 642 U/L (23-300)
--- NOTE | 2019-11-17 09:11 | HMH.ACPN2 ---
Internal Medicine - PN: Subj *Date: 11/17/19 *Time: 09:11 Interval history: doing better lipase better but still with little po intake Exam Vital signs and Labs for Last 24 Hours: Temp Pulse Resp BP Pulse Ox 98.5 F 105 H 18 121/79 96 11/17/19 08:00 11/17/19 08:00 11/17/19 08:00 11/17/19 08:00 11/17/19 08:00 Laboratory Results - last 24 hr 11/17/19 07:35: WBC 8.6 D, RBC 4.16 L, Hgb 13.9 L, Hct 44.6, MCV 107.1 H, MCH 33.4 H, MCHC 31.2 L, RDW 20.7 H D, Plt Count 139 L, MPV 11.9 H, Neut % (Auto) 72.7, Lymph % (Auto) 18.5, [place] % (Auto) 6.6, Eos % (Auto) 2.1, Baso % (Auto) 1.5, Neut # (Auto) 6.2, Lymph # (Auto) 1.6, [place] # (Auto) 0.6, Eos # (Auto) 0.2, Baso # (Auto) 0.1 11/17/19 07:35: Sodium 133 L, Potassium 3.7, Chloride 102, Carbon Dioxide 23, Anion Gap 11.7, BUN 7 L, Creatinine 0.60 L, Estimated Creat Clear 146, Estimated GFR 140, Est GFR ( Amer) 170, Glucose 88, Calcium 8.8, Total Bilirubin 2.2 H, AST 52 D, ALT 35 D, Alkaline Phosphatase 228 H, Total Protein 6.3, Albumin 3.4 L, Globulin 2.9, Albumin/Globulin Ratio 1.2, Lipase 642 H I & O for Last 24 hours: Intake & Output 11/14/19 11/15/19 11/16/19 11/17/19 11:59 11:59 11:59 11:59 Intake Total 1292 / 1292 2293 / 2293 4332 / 4332 Output Total 250 / 250 1400 / 1400 2385 / 2385 Balance 1042 / 1042 893 / 893 1947 / 194 Weight 162 lb 2 oz 171 lb 1 oz 161 lb 5 oz - Constitutional no acute distress - *Routine HEENT Exam Head: Present: normocephalic Eye: Present: EOMI, PERRL ENT: Present: mucous membranes dry - *Routine Neck Exam Present: supple - *Routine Respiratory Exam Absent: respiratory distress - *Routine Cardiovascular Exam Present: RRR - *Routine Abdominal Exam Present: soft - *Routine Extremities Exam Present: full ROM - *Routine Skin Exam Present: intact - *Routine Neurological Exam Present: alert, CN II-XII intact - Routine Psychiatric Exam Present: normal affect Assessment and Plan (1) History of lung cancer Current visit: Yes Status: Chronic Category: Medical Code(s): Z85.118 - Personal history of other malignant neoplasm of bronchus and lung (2) Pancreatitis, acute Current visit: Yes Status: Acute Qualifiers: Pancreatitis type: alcohol induced Acute pancreatitis complication: no infection or necrosis Qualified Code(s): K85.20 - Alcohol induced acute pancreatitis without necrosis or infection Category: Medical Code(s): K85.90 - Acute pancreatitis without necrosis or infection, unspecified (3) Cholelithiasis Current visit: Yes Status: Acute Qualifiers: Cholelithiasis location: gallbladder and bile duct Cholecystitis presence: with cholecystitis Cholecystitis acuity: acute and chronic Biliary obstruction: without biliary obstruction Qualified Code(s): K80.66 - Calculus of gallbladder and bile duct with acute and chronic cholecystitis without obstruction Category: Medical Code(s): K80.20 - Calculus of gallbladder without cholecystitis without obstruction (4) Alcohol abuse Current visit: Yes Status: Chronic Category: Social Hx Code(s): F10.10 - Alcohol abuse, uncomplicated (5) Gallstone pancreatitis Problem details: will refer to surgery Current visit: No Status: Acute Category: Medical Code(s): K85.10 - Biliary acute pancreatitis without necrosis or infection (6) Pancreatitis Current visit: No Status: Acute Category: Medical Code(s): K85.90 - Acute pancreatitis without necrosis or infection, unspecified (7) Hypokalemia Current visit: No Status: Acute Category: Medical Code(s): E87.6 - Hypokalemia
--- NOTE | 2019-11-17 10:59 | DIET.NUTRFU ---
Pt has shown clinical improvement of pancreatitis with documented well toleration of 50-75% PO intake of low fat diet. Of note, pt has voiced confusion about symptoms/tolerance. After saying abdominal symptoms have improved and denying N/V/D he then said he does get diarrhea after eating, and then relays he has not had a BM since admit. Documentation confirms no BM in past 3 days. Weight is stable. Continuing to monitor for tolerance and further needs.
--- OUTSIDE RECORDS SUMMARY | 2019-11-17 11:10 | XMS_ITS | Continuity of Care Document ---
:1965 Author Organization [facility] Address [address] [place] [address] Phone Care Team Providers Name Role Phone Neus Primary Care Provider Neus Attending Provider Allran Attending Provider Allergies, Adverse Reactions, Alerts Allergen Type Severity Reaction Last Verified Status Updated cephalexin Allergy Mild Hives November 14, Yes Active 2019 12:34am diphenhydramine Allergy Unknown November 14, Yes Act kirill 2019 12:34am sulfamethoxazole Allergy Unknown November 14, Yes Ac tive 2019 12:34am
[2019-11-17 11:39] LABS: CA 19-9 1 U/mL (0-35)
[2019-11-17 16:00] VITALS: BP 135/86; PULSE 94; RESP 18; TEMP 36.9; O2SAT 99
--- NOTE | 2019-11-17 17:36 | PC.NURSE ---
Pt complained of abd pain the entire shift. He watched the clock and requested Dilaudid 1mg Q4hrs. Tolerablel pain level is a 5. He has not appeared to be in pain. CIWA score 1 @ 0800 and 0 @ 1200/1600. He ambulated to bathroom on his own. Has been up in chair all day. He refuses TEDS. VSS. Has been A&Ox3.
--- NOTE | 2019-11-17 19:09 | PC.NURSE ---
report given to shea
[2019-11-17 20:00] VITALS: BP 142/79; PULSE 90; RESP 16; TEMP 36.7; O2SAT 97
[2019-11-18 04:00] VITALS: BP 128/79; PULSE 114; RESP 16; TEMP 36.8; O2SAT 96
--- NOTE | 2019-11-18 04:07 | PC.NURSE ---
Pt is A&Ox4 and has ambulated in room and to the BR a few times this shift and tolerated well. Pt has c/o pain to ABD t/o this shift, rating 10/10 each assessment. Pain scale reviewed with pt, and after wards pt reports that yes, this pain is like I just broke every bone in my body. Pt's mother at bedside and after reviewing pain scale with pt, the pt and his mother were laughing. Pt able to ambulate without difficulty or guarding, denies any N/V/D. ABD tender to palpation on LUQ. Pt calls out frequently to ask Is my pain shot due? . Pt has received Dilaudid 2x and Ativan 1x thus far, and has slept for several hours after med administration. When pt has awakened for VS or d/t IV pumping beeping, he then reports with eyes still closed that his pain is 10/10. On 1 occasion that pt used call bustos to request pain medication and this RN went to assess pt and he had fallen asleep with 1 min of calling out for med. Pt c/o not having a bowel movement since 11/15/19, this RN education pt on opioids and constipation risk. Pt encouraged to drink water, offered prune juice but pt refused. Pt denies feeling bloated. Pt and mother concerned with pt still in so much pain . Pt tolerated his meals fair eating 50% of his 3 meals on previous shift. Lungs CTA. TEDS refused. Pt continues on NS IVF @ 175ml/hr. VSS, call light within reach will continue to monitor.
[2019-11-18 04:31] VITALS: BMI 25.4
[2019-11-18 07:42] VITALS: BP 137/83; PULSE 97; RESP 18; TEMP 36.9; O2SAT 98
[2019-11-18 07:44] VITALS: O2SAT 98
--- NOTE | 2019-11-18 08:25 | PC.NURSE ---
DR SHEIKH AT BEDSIDE ASSESSING PATIENT. PLANS TO DISCHARGE PATIENT TODAY IF LABS COME BACK WNL AND FOLLOW UP WITH SURGERY IN A FEW WEEKS. ORDERS RECEIVED FOR STOOL SOFTENER D/T PT C/O LBM 3 DAYS AGO- ADMIN PER JUL.
[2019-11-18 08:31] LABS: Basophils % 0.3 % (0.1-2.0); Eosinophils # 0.2 K/mm3 (0.0-0.4); Eosinophils % 2.7 % (0.1-12.0); Hematocrit 35.1 % (42.0-52.0); Hemoglobin 12.4 g/dL (14.1-18.0); Lymphocytes # 1.1 K/mm3 (0.7-4.5); Lymphocytes % 19.4 % (10-50); Mean Corpuscular HGB Conc 35.4 g/dL (31.8-35.4); Mean Corpuscular Hemoglobin 33.7 pg (27.0-31.2); Mean Corpuscular Volume 95.2 fl (80-94); Mean Platelet Volume 9.2 fl (7.4-10.4); Monocytes # 0.5 K/mm3 (0.1-1.0); Neutrophils # 4.1 K/mm3 (1.8-7.8); Neutrophils % 69.7 % (37.0-80.0); Platelet Count 103 K/mm3 (142-424); Red Blood Count 3.69 M/mm3 (4.60-6.20); Red Cell Distribution Width 13.7 % (11.5-17.5); White Blood Count 5.9 K/mm3 (4.8-10.8)
[2019-11-18 08:38] LABS: Chloride 101 mmol/L (98-107); Potassium 3.5 mmoL/L (3.5-5.1); Sodium 134 mmol/L (136-145)
[2019-11-18 08:41] LABS: Alanine Aminotransferase 26 U/L (12-78); Albumin Level 3.2 g/dl (3.5-5.0); Albumin/Globulin Ratio 1.1 (1.1-1.8); Alkaline Phosphatase 202 U/L (38-126); Anion Gap 9.5 mEq/L (5-15); Aspartate Amino Transferase 35 U/L (17-59); Bilirubin,Total 2.1 mg/dl (0.2-1.3); Blood Urea Nitrogen 4 mg/dl (9-20); Carbon Dioxide 27 mmol/L (22.0-30.0); Creatinine Clearance Estimated 152 mL/min (50-200); Estimated Glomerular Filt Rate 140 ml/min (>60); GFR (African American) 170 ML/MIN (>60); Total Protein,Serum 6.2 g/dl (6.3-8.2)
[2019-11-18 08:42] LABS: Calcium 8.8 mg/dl (8.4-10.2); Glucose 104 mg/dl (74-100)
[2019-11-18 09:03] LABS: Lipase 601 U/L (23-300)
--- NOTE | 2019-11-18 12:29 | HMH.DCSUM ---
General - General Admission date:: 11/15/19 Discharge date: 11/18/19 HPI HPI: Is a 54-year-old white male, followed by my practice. He was admitted last evening for increasing abdominal pain, clinical findings suggesting pancreatitis. This is his third hospital admission for pancreatitis. He was previously at [facility] in [place]. By his history previous imaging studies have suggested gallstones. We did have a pending surgery consult to address this. It also seems that alcohol is a factor. RONALD in the emergency room was 84. He does admit to drinking on a regular basis. He has been a somewhat heavy drinker for several years. On admission his white cell count was slightly elevated, his amylase and lipase were slightly elevated, and his alkaline phosphatase was slightly elevated. He is currently n.p.o., on seizure precautions, getting IV fluid, and has Ativan on board for seizures and withdrawal. He was previously taking Keppra, his last seizure was about a year and a half ago. We have spoken to the pharmacist regarding his regimen. Is had no seizure activity since being admitted. Reports moderate mid epigastric discomfort. He has had vomiting on a few occasions, no hematemesis, no black tarry stool, no overt signs of blood loss. He has no jaundiced, no flap, and is at his baseline mentation. red level Hospital Course Hospital Course: FINDINGS: LOWER THORAX: No acute finding ABDOMEN & PELVIS: The liver, spleen, and adrenal glands have an unremarkable appearance. Gallbladder slightly distended with gallstones. There is wispy and homogeneous peripancreatic fluid attenuation without definite mead adjacent to the pancreatic body and tail. Edematous changes are present within the pancreas body and tail the. There is some decreased attenuation of the pancreatic tail and lateral body. A 2 mm stone is present within the pancreatic duct image 42 series 3. No pancreatic gas. There is stranding of the left anterior pararenal fascia. Edematous changes are present involving the wall the stomach. No renal or ureteral calculi or hydronephrosis. There are left renal cysts. No intestinal obstruction or free air. Unremarkable appendix. There is thickening of the descending colon. There is scattered small mesenteric lymph nodes nonspecific. IMPRESSION: The findings are compatible with acute interstitial edematous pancreatitis with acute peripancreatic inflammation with a small amount of peripancreatic fluid. There is some decreased enhancement of the tail the pancreas. Cannot exclude the possibility of acute necrotic pancreatitis. Follow-up suggested. Small stone is present in the pancreatic duct Cholelithiasis. FINDINGS: Pancreas: There is some heterogeneous echogenicity of pancreas. The pancreatic tail is not well delineated. Liver: Unremarkable. There is appropriate direction of blood flow within a non dilated portal vein. Right kidney: Unremarkable appearing. No hydronephrosis. Gallbladder: There are gallstones present. Common bile duct is upper normal at 6 mm. Gallbladder wall slightly thickened 4 mm. No pericholecystic fluid evident. IMPRESSION: Cholelithiasis with mildly thickened gallbladder wall. Common bile duct upper normal at 6 mm. Heterogeneous echogenicity of the pancreas in keeping with pancreatitis as seen on recent CT [facility] Procedure Note Procedure Note:: ERCP procedure Report: Endoscopic retrograde cholangiopancreatography with biliary sphincterotomy, balloon extraction and cold biopsies Endoscopist: Tino Jack II, MD Referring Physician: Nelson Edgar MD Date of Procedure: November 15, 2019 Equipment: Olympus 180 side viewing endoscope duodenoscope Sedation: MAC sedation Indication: Mr. Casarez is a 54-year-old gentleman with his third bout of pancreatitis. The patient does have a history of heavy alcohol use. He also has a
--- NOTE | 2019-11-18 13:37 | HMH.PHAINT ---
Addendum entered and electronically signed by Jeannette Ho PharmD 11/18/19 13:41: NEW PRESCRIPTION FOR CREON 36,[address]ACY PER DR. SHEIKH' REQUEST. PT GIVEN NEW MEDICATION LIST AND MEDICATION DELIVERED TO BEDSIDE. Original Note: PATIENT WAS COUNSELED TO CONTINUE ALL HOME MEDICATIONS. THE PATIENT DID NOT HAVE ANY QUESTIONS ON THEIR MEDICATIONS.
--- NOTE | 2019-11-18 14:24 | PC.NURSE ---
pharmacy delivered patients prescription creon. mother at bedside. patient discharged all belongings sent with patient
== END 2019-11-18 14:25 | disposition home or self-care (01) | DRG 439 ==
LOC: ER 03:20 → 2ND 03:35
PROVIDERS: Internal Medicine Gastroenterology; Admitting Provider Emergency Medicine; Emergency Provider Emergency Medicine; PCP Family Medicine; Visit Provider Family Medicine
PROC: 0F798ZZ Dilation of Common Bile Duct, Via Natural or Artificial Opening Endoscopic (ICD-10-PCS; CPT 43264; principal; 2019-11-15 15:00)
DX: K85.10 Biliary acute pancreatitis without necrosis or infection (principal); C34.91 Malignant neoplasm of unspecified part of right bronchus or lung; K80.43 Calculus of bile duct with acute cholecystitis with obstruction; Z72.0 Tobacco use; F10.10 Alcohol abuse, uncomplicated; Y90.4 Blood alcohol level of 80-99 mg/100 ml; E87.6 Hypokalemia; Z79.899 Other long term (current) drug therapy; Z88.2 Allergy status to sulfonamides; K29.50 Unspecified chronic gastritis without bleeding
CPT/HCPCS: 43264; 36415; 71260; 74177; 74330; 76705; 80053; 80305; 81001; 82150; 83690; 83735; 84100; 85007; 85025; 85610; 85651; 85730; 86140; 86316; 86328; 88305; 96365; 96375; 99284; J2405; Q9967

== ENCOUNTER → 2019-11-25 15:11 | Outpatient (CLI) | payer MEDICAID, SELFPAY ==
[2019-11-25 16:13] LABS: Amylase 59 U/L (30-110); Lipase 599 U/L (23-300)
== END ==
PROVIDERS: Visit Provider Family Medicine
DX: K85.90 Acute pancreatitis without necrosis or infection, unspecified (principal)
CPT/HCPCS: 82150; 83690

== ENCOUNTER 2019-12-05 21:38 | Emergency (ER) | payer MEDICAID, SELFPAY ==
[2019-12-05 21:46] VITALS: BP 128/71; PULSE 115; RESP 16; TEMP 37.2; O2SAT 96; BMI 25.5
[2019-12-05 22:00] LABS: Basophils # 0.1 K/mm3 (0-0.2); Basophils % 0.5 % (0.1-2.0); Eosinophils # 0.3 K/mm3 (0.0-0.4); Eosinophils % 3.5 % (0.1-12.0); Hematocrit 40.5 % (42.0-52.0); Hemoglobin 13.8 g/dL (14.1-18.0); Lymphocytes # 1.6 K/mm3 (0.7-4.5); Lymphocytes % 18.3 % (10-50); Mean Corpuscular HGB Conc 34.2 g/dL (31.8-35.4); Mean Corpuscular Hemoglobin 33.1 pg (27.0-31.2); Mean Corpuscular Volume 96.8 fl (80-94); Mean Platelet Volume 8.5 fl (7.4-10.4); Monocytes # 0.5 K/mm3 (0.1-1.0); Monocytes % 5.2 % (1.7-9.3); Neutrophils # 6.3 K/mm3 (1.8-7.8); Neutrophils % 72.4 % (37.0-80.0); Platelet Count 248 K/mm3 (142-424); Red Blood Count 4.19 M/mm3 (4.60-6.20); Red Cell Distribution Width 13.9 % (11.5-17.5); White Blood Count 8.8 K/mm3 (4.8-10.8)
[2019-12-05 22:09] LABS: Alanine Aminotransferase 18 U/L (12-78); Albumin/Globulin Ratio 1.2 (1.1-1.8); Alkaline Phosphatase 152 U/L (38-126); Amylase 69 U/L (30-110); Anion Gap 11.1 mEq/L (5-15); Aspartate Amino Transferase 33 U/L (17-59); Bilirubin,Total 0.3 mg/dl (0.2-1.3); Blood Urea Nitrogen 4 mg/dl (9-20); Calcium 9.3 mg/dl (8.4-10.2); Carbon Dioxide 26 mmol/L (22.0-30.0); Chloride 106 mmol/L (98-107); Creatinine Clearance Estimated 152 mL/min (50-200); Estimated Glomerular Filt Rate 140 ml/min (>60); GFR (African American) 170 ML/MIN (>60); Globulin 3.4 g/dL (1.3-3.2); Glucose 152 mg/dl (74-100); Lipase 412 U/L (23-300); Potassium 4.1 mmoL/L (3.5-5.1); Sodium 139 mmol/L (136-145); Total Protein,Serum 7.4 g/dl (6.3-8.2)
--- NOTE | 2019-12-05 22:20 | HMH.EDNVD ---
ED Disposition Clinical Impression: Cholelithiasis Qualifiers: Cholelithiasis location: gallbladder Cholecystitis presence: without cholecystitis Biliary obstruction: without biliary obstruction Qualified Code(s): K80.20 - Calculus of gallbladder without cholecystitis without obstruction Disposition: Home, Self-Care Condition on Discharge: Good Instructions: DI for Acute Abdomen Additional Instructions: see pcp for follow up Referrals: Richard Edgar MD [Primary Care Provider] - - Critical Care Critical Care Time: No Attestation: On 12/05/19, the high probability of a clinically significant, sudden or life threatening deterioration of the following system(s) required my full and direct attention, intervention and personal management. The time I documented below is in addition to time spent performing reported procedures but includes the following listed in this critical care notation. Medical Decision Making - Medical Records Medical records reviewed: Yes: I reviewed the patient's medical records. - Medhat Inquiry Pt receiving controlled substance: No Vital Signs: 12/05/19 21:46 Temperature 98.9 F Temperature Source Oral Pulse Rate [Right Brachial] 115 H Respiratory Rate 16 Blood Pressure [Right Arm] 128/71 Blood Pressure Mean [Right Arm] 90 Blood Pressure Source [Right Arm] Automatic Cuff Blood Pressure Position [Right Arm] Sitting 02 Sat by Pulse Oximetry 96 Oxygen Delivery Method Room Air - Lab Data Lab results reviewed: Yes: I reviewed the patient's lab results. Lab Results 12/05/19 21:50: WBC 8.8, RBC 4.19 L, Hgb 13.8 L, Hct 40.5 L, MCV 96.8 H, MCH 33.1 H, MCHC 34.2, RDW 13.9, Plt Count 248, MPV 8.5, Neut % (Auto) 72.4, Lymph % (Auto) 18.3, [place] % (Auto) 5.2, Eos % (Auto) 3.5, Baso % (Auto) 0.5, Neut # (Auto) 6.3, Lymph # (Auto) 1.6, [place] # (Auto) 0.5, Eos # (Auto) 0.3, Baso # (Auto) 0.1 12/05/19 21:50: Sodium 139, Potassium 4.1, Chloride 106, Carbon Dioxide 26, Anion Gap 11.1, BUN 4 L, Creatinine 0.60 L, Estimated Creat Clear 152, Estimated GFR 140, Est GFR ( Amer) 170, Glucose 152 H, Calcium 9.3, Total Bilirubin 0.3, AST 33, ALT 18, Alkaline Phosphatase 152 H, Total Protein 7.4, Albumin 4.0, Globulin 3.4 H, Albumin/Globulin Ratio 1.2, Amylase 69, Lipase 412 H Result diagrams: 12/05/19 21:50 12/05/19 21:50 Orders (Tests/Meds): ED MEDICATIONS Generic Name Dose Route Start Last Admin Trade Name Freq PRN Reason Stop Dose Admin Sodium Chloride 1,000 mls @ 999 mls/hr 12/05/19 22:00 12/05/19 22:00 Sod Chlor 0.9% 1000ml Bag IV 12/05/19 23:00 999 mls/hr .Q1H1M BUZZ Administration Sodium Chloride 8 ml 12/05/19 21:53 Sodium Chloride 0.9% 10ml Vial IV 01/04/20 21:52 NEEDED PRN dilute pepcid Discontinued Medications Generic Name Dose Route Start Last Admin Trade Name Freq PRN Reason Stop Dose Admin Famotidine 20 mg 12/05/19 21:53 12/05/19 22:00 Pepcid 20mg/2ml Vial IV 12/05/19 21:54 20 mg ONCE ONE Administration Ketorolac Tromethamine 30 mg 12/05/19 21:53 12/05/19 22:00 Toradol 30mg/Ml Vial IV 12/05/19 21:54 30 mg ONCE ONE Administration Metoclopramide HCl 10 mg 12/05/19 21:53 12/05/19 22:00 Reglan 10mg/2ml Vial IVP 12/05/19 21:54 10 mg ONCE ONE Administration Ondansetron HCl 4 mg 12/05/19 21:53 12/05/19 22:00 Zofran 4mg/2ml Vial IV 12/05/19 21:54 4 mg ONCE ONE Administration ORDERS Category Date Time Status Blood alcohol [Ethyl Alcohol] Stat Lab 12/05/19 21:50 Received Urinalysis and Microscopic Stat Lab 12/05/19 21:54 Ordered Nausea/Vomiting/Diarrhea HPI - General Chief complaint: Abdominal Pain Stated complaint: Severe abdominal pain Time Seen by Provider: 12/05/19 22:00 Mode of Arrival: Family Vehicle Source of Information: Patient, Parent(s), Medical Record Limitations: No Limitations Description of Symptoms (Recalled from ER Triage Doc. by RN): presents with abd pain that he feels i
[2019-12-05 22:41] LABS: Ethyl Alcohol < 10 mg/dl (0-10)
--- NOTE | 2019-12-05 22:43 | PC.NURSE ---
patient instructed to call mom for signature and ride
[2019-12-05 22:49] VITALS: BP 138/77; PULSE 98; RESP 16; TEMP 36.7; O2SAT 99
== END 2019-12-05 22:55 | disposition home or self-care (01) ==
PROVIDERS: Emergency Provider Emergency Medicine; PCP Family Medicine
DX: K80.20 Calculus of gallbladder without cholecystitis without obstruction (principal); F41.8 Other specified anxiety disorders; F10.10 Alcohol abuse, uncomplicated; F17.210 Nicotine dependence, cigarettes, uncomplicated
CPT/HCPCS: 80053; 82150; 83690; 85025; 96365; 96375; 99282; 99283; J2405

== ENCOUNTER → 2019-12-13 12:25 | Outpatient (POV) | payer MEDICAID, SELFPAY | PROVIDERS: PCP Family Medicine; Visit Provider Nurse Practitioner Family | DX: Z00.00 Encounter for general adult medical examination without abnormal findings (principal) ==

== ENCOUNTER → 2019-12-13 13:29 | Outpatient (CLI) | payer MEDICAID, SELFPAY ==
[2019-12-13 14:46] LABS: Basophils % 0.5 % (0.1-2.0); Eosinophils # 0.3 K/mm3 (0.0-0.4); Eosinophils % 4.3 % (0.1-12.0); Hematocrit 43.1 % (42.0-52.0); Hemoglobin 14.7 g/dL (14.1-18.0); Lymphocytes # 1.8 K/mm3 (0.7-4.5); Lymphocytes % 22.8 % (10-50); Mean Corpuscular Hemoglobin 33.1 pg (27.0-31.2); Mean Corpuscular Volume 97.4 fl (80-94); Monocytes # 0.5 K/mm3 (0.1-1.0); Monocytes % 5.8 % (1.7-9.3); Neutrophils # 5.1 K/mm3 (1.8-7.8); Neutrophils % 66.6 % (37.0-80.0); Platelet Count 208 K/mm3 (142-424); Red Blood Count 4.43 M/mm3 (4.60-6.20); Red Cell Distribution Width 13.9 % (11.5-17.5); White Blood Count 7.7 K/mm3 (4.8-10.8)
[2019-12-13 14:48] LABS: Chloride 102 mmol/L (98-107); Potassium 5.2 mmoL/L (3.5-5.1); Sodium 136 mmol/L (136-145)
[2019-12-13 14:51] LABS: Alanine Aminotransferase 14 U/L (12-78); Albumin Level 3.9 g/dl (3.5-5.0); Albumin/Globulin Ratio 1.3 (1.1-1.8); Alkaline Phosphatase 119 U/L (38-126); Amylase 41 U/L (30-110); Anion Gap 12.2 mEq/L (5-15); Aspartate Amino Transferase 28 U/L (17-59); Bilirubin,Total 0.4 mg/dl (0.2-1.3); Blood Urea Nitrogen 6 mg/dl (9-20); Calcium 9.6 mg/dl (8.4-10.2); Carbon Dioxide 27 mmol/L (22.0-30.0); Estimated Glomerular Filt Rate 118 ml/min (>60); GFR (African American) 142 ML/MIN (>60); Globulin 2.9 g/dL (1.3-3.2); Glucose 98 mg/dl (74-100); Lipase 142 U/L (23-300); Total Protein,Serum 6.8 g/dl (6.3-8.2)
[2019-12-13 15:36] LABS: INR 1.05 (0.9-1.1); Prothrombin Time 10.8 seconds (9.4-11.8)
[2019-12-13 20:14] LABS: Coronavirus 19 IgG Antibody Negative (Negative); Coronavirus 19 IgM Antibody Negative (Negative)
== END ==
PROVIDERS: Visit Provider Surgery
DX: Z01.818 Encounter for other preprocedural examination (principal); K80.20 Calculus of gallbladder without cholecystitis without obstruction
CPT/HCPCS: 36415; 80053; 82150; 83690; 85025; 85610; 86328

== ENCOUNTER 2019-12-15 07:35 | Day surgery (SDC) | payer MEDICAID, SELFPAY ==
[2019-12-15] VITALS (11 sets, daily range): BP systolic 98–134; BP diastolic 55–88; PULSE 71–82; RESP 16–20; TEMP 36.2–36.5; O2SAT 96–100
--- NOTE | 2019-12-15 08:18 | HMH.ANESCL ---
[facility] Anesthesia Checklist - Patient Identification Patient Identification: Arm Band - Structural Data Admitted From: Home Planned Operative Procedure/s: laparoscopic cholecystectomy Consent for Planned Operative Procedure(s) Verified: Yes Verified Documents: Surgical Consent, History and Physical - NPO Status Verified Time NPO: 00:00 - Additional verifications Anesthesia Reactions: No Hx Blood Transfusions: No Blood Transfusion Reaction: No - Airway Assessment C-Spine Mobility Assessed: Yes (mp2) TMJ Mobility Assessed: Yes Dentition: Edentulous - Neurological Assessment Level of Consciousness: Awake, Alert - Anesthesia Plan Anesthesia Risk discussed: Yes Anesthesia Plan: Verified ASA Class: III Anesthesia Type: General [facility] History I have reviewed the patient's past medical history: Yes Medical History: Reports:: Anxiety, Cancer (spinal ca), Chronic Obstructive Pulmonary Disease (COPD), Depression, Gastroesophageal Reflux Disease(GERD), Hepatitis (Hx alcohol induced hepatitis ), MRSA, Seizures (1 year ago) Denies:: Diabetes Mellitus Type 1, Diabetes Mellitus Type 2, Internal Pacemaker *Have you ever received a pneumonia vaccine?: Yes *Have you received a flu vaccine this season?: Yes Other Medical History: Denies: Blood Transfusion Reaction Anesthesia experience/problems:: nac Other Surgeries: Yes: Other. No: Pacemaker Amputation: No Fractures: No - *Social History Last grade of school completed: GED Smoking Status: Current every day smoker Tobacco Type: cigarettes # Packs/Day (cigarettes): 2 Alcohol Intake: current Alcohol Intake Frequency:: a few times a week Substance Use Type: denies use *Occupational Status:: disabled Housing: house Household Members: family *Travel in the last 8 weeks: None - Psychiatric History Pschychiatric History:: Reports:: Anxiety, Depression Family Hx:: Bleeding Disorder, Cancer, Alcoholism
--- NOTE | 2019-12-15 10:25 | P.OP_ITS ---
Date of procedure: 12/15/19 Pre-op Diagnosis:: Gallstones, pancreatitis Post-op Diagnosis:: Same Procedure performed:: Laparoscopic cholecystectomy Surgeon:: Parviz Trevino MD [employer] SPECIALIST:: Mitch Lux Anesthesia: LIZ Estimated blood loss (mL): 15 Clinical Note:: Is a 54-year-old white male, followed by Nelson Edgar MD. He was recently hospitalized for his third admission for pancreatitis. He was previously at [facility] in [place]. By his history previous imaging studies have suggested gallstones. He also has a history of heavy alcohol use. When he was recently admitted his CAT scan that showed decreased attenuation with findings of possible stone in the pancreatic duct. Pancreatic enzymes were mildly elevated as were transaminases. When he was admitted he underwent gastroenterology and surgical consultations. Dr. Jack saw the patient and performed ERCP. It was felt that he would benefit from outpatient cholecystectomy although etiology of his pancreatitis may be alcohol related. Patient states that he has continued to abstain from alcohol consumption since hospitalization. He still does have some minor cramping abdominal pain but it is much improved. Operative findings:: He had a thickened gallbladder. There is evidence of cirrhosis of the liver. Operative note:: Patient was taken to the operating room. He was given preoperative intravenous antibiotics. In the operating room he was placed in a supine position. General anesthesia was induced via endotracheal tube. Abdomen was prepped and draped in the standard surgical fashion. Subumbilical skin incision was made and while performing abdominal wall lift Veress needle was inserted. CO2 pneumoperitoneum was achieved to 15 mmHg. 11 mm optical trocar was inserted at the umbilicus. Intraperitoneal contents were visualized. He was immediately noted to have evidence suggestive of liver cirrhosis. Gallbladder was identified and grasped and retracted anteriorly and superiorly over the dome of the liver. Adhesions to the gallbladder were taken down using blunt dissection. Infundibulum/H artman's pouch of the gallbladder was retracted anterior laterally. Blunt dissection was carried out the neck of the gallbladder bluntly incising the visceral peritoneum. There is evidence of chronic inflammation with thickening of the visceral peritoneum around the cystic duct. This is ultimately dissected free and isolated. Cystic duct and cystic artery were identified. Cystic duct was isolated, multiply clipped and sharply divided. Cystic artery appeared to be quite close proximity to the cystic duct and it was carefully coagulated with NBA ultrasonic robotic [place] and divided. Gallbladder was dissected free from the liver in a retrograde fashion using NBA ultrasonic harmonic [place]. Gallbladder was placed within an Endo Catch retrieval device and removed from the peritoneal cavity via the umbilical trocar site. Limited irrigation was performed of the gallbladder fossa. There was some limited use of electrocautery for good hemostasis. Trochars were removed as CO2 pneumop eritoneum was evacuated. Fascia at the umbilicus was closed with 0 Vicryl suture. Local anesthetic was infiltrated. Skin incisions were closed with 4-0 Monocryl in a subcuticular fashion. Steri-Strips and dressings were applied. Condition: stable Disposition: PACU Specimens:: Gallbladder and contents Complications:: None immediately apparent
--- NOTE | 2019-12-15 10:33 | HMH.ANESI ---
[facility] Anesthesia Record Part I Intake, IV Amount: 1,000 Estimated blood loss (mL): 25 Urine output (mL): 0 (NM) Blood Products used (#): none Blood Pressure: 98/55 SaO2: 99 Pulse Rate: 71 Respiratory Rate: 17 Temperature: 97.7 F Patient is:: Drowsy, Oral/Nasal airway, Stable Stable to PACU at:: 10:28
--- NOTE | 2019-12-15 10:40 | PC.NURSE ---
1038-oral airway removed at this time, pt awakening and drowsy, o2 sats stable on room air
--- NOTE | 2019-12-15 10:54 | PC.NURSE ---
1054-detailed report called to Anju,RN 1058-pt transported to post op via stretcher w/enrike rails up, vss, pt stable
--- NOTE | 2019-12-15 12:45 | HMH.ANESII ---
[facility] Anesthesia Record Part II Discharge Time: 10:58 Destination: Surgical Day Care (OP Surgery) PACU nurse assessment reviewed?: Yes Patient Condition:: Good Anesthesia Complications:: None Swallowing reflex intact?: Yes Cyanosis?: No Blood Pressure: 117/75 Pulse Rate: 76 Temperature: 97.6 F Mental Status: Alert & Oriented Pain level:: 0 Nausea and/or vomitting:: None Intake, IV Amount: 0
== END 2019-12-15 11:44 | disposition home or self-care (01) ==
LOC: OR 07:36
PROVIDERS: PCP Family Medicine; Visit Provider Surgery
PROC: 0FT44ZZ Resection of Gallbladder, Percutaneous Endoscopic Approach (ICD-10-PCS; CPT 47562; principal; 2019-12-15 09:15)
DX: K80.20 Calculus of gallbladder without cholecystitis without obstruction (principal); K85.10 Biliary acute pancreatitis without necrosis or infection; K66.0 Peritoneal adhesions (postprocedural) (postinfection); K70.30 Alcoholic cirrhosis of liver without ascites; F10.10 Alcohol abuse, uncomplicated; F41.9 Anxiety disorder, unspecified; Z85.89 Personal history of malignant neoplasm of other organs and systems; J44.9 Chronic obstructive pulmonary disease, unspecified; F32.9 Major depressive disorder, single episode, unspecified; K21.9 Gastro-esophageal reflux disease without esophagitis; K70.10 Alcoholic hepatitis without ascites; Z86.14 Personal history of Methicillin resistant Staphylococcus aureus infection
CPT/HCPCS: 47562; 96374; J2405; J2710

== ENCOUNTER 2020-01-18 13:36 | Emergency (ER) | payer MEDICAID, SELFPAY ==
[2020-01-18 14:12] VITALS: BP 127/73; PULSE 132; RESP 26; TEMP 37.1; O2SAT 97; BMI 24.3
--- NOTE | 2020-01-18 14:24 | HMH.EDUTC ---
[facility] [place] Clinical Impression: Vomiting Qualifiers: Vomiting type: unspecified Vomiting Intractability: unspecified Nausea presence: with nausea Qualified Code(s): R11.2 - Nausea with vomiting, unspecified Disposition: Still a Patient Condition on Discharge: Fair Referrals: Richard Edgar MD [Primary Care Provider] - Time of Disposition: 14:32 Medical Decision Making - Medhat Inquiry Pt receiving controlled substance: No Medhat was queried for this patient: No Vital Signs: 01/18/20 14:12 Temperature 98.7 F Temperature Source Oral Pulse Rate [Right Brachial] 132 H Respiratory Rate 26 H Blood Pressure [Right Arm] 127/73 Blood Pressure Mean [Right Arm] 91 Blood Pressure Source [Right Arm] Automatic Cuff Blood Pressure Position [Right Arm] Sitting 02 Sat by Pulse Oximetry 97 Oxygen Delivery Method Room Air Medical Decision Narrative: Patient laying on exam table and advised hard to raise his head up, States that he started having vomiting and diarrhea last night and had some pain/discomfort in his chest area has history of pancreatitis and reports consuming large amounts of alcohol daily and had drink earlier today Recommended that patient be transferred to ED for further work up and evaluation Patient reports feels like he is dying patient report given to ED and patient transferred to room 7 [facility] [place] HPI - General Stated complaint: vomiting, no taste, Time Seen by Provider: 01/18/20 14:24 Mode of Arrival: Ambulatory Source of Information: Patient Limitations: No Limitations Description of Symptoms (Recalled from Triage Doc. by RN): PATIENT C/O VOMITING AND DIARRHEA SINCE LAST NIGHT. HE REPORTS HE VOMITING SO MUCH LAST NIGHT THAT HIS THROAT BECAME SORE. ALSO REPORTS MID-STERNAL CHEST PAIN WHILE VOMITING. PATIENT STATES I FEEL LIKE I'M DYING . HE REPORTS HE IS A HEAVY DRINKER AND STATES HIS LAST DRINK WAS 3 BEERS RIGHT BEFORE HE CAME IN HERE HEENT Symptoms (Recalled from RN notes): No Resp Symptoms (Recalled from RN notes): No Skin Symptoms (Recalled from RN notes): No MS Symptoms (Recalled from RN notes): No Functional Status (Recalled from RN notes): WNL - History of Present Illness Provider Complaint: Patient states that he is a heavy drinker and mother reports that he often consumes large amounts of alcohol and has history of pancreatitis States that he started having vomiting and diarrhea yesterday and not sure if vomiting caused chest to hurt or chest caused vomiting States that he has been drinking and unable to keep anything down. States that he feels like he is dying today and mother concerned because he was so weak. - Related Data Home Medications Medication Instructions Recorded Confirmed buspirone 15 mg tablet 15 mg PO TID tab 11/02/19 01/07/20 levetiracetam 500 mg tablet 500 mg PO BID tab 11/02/19 01/07/20 omeprazole 40 mg capsule,delayed 40 mg PO DAILY cap 11/02/19 01/07/20 release potassium chloride 10 mEq 10 meq PO DAILY cap 11/02/19 01/07/20 capsule,extended release Hydrocodone/Acetaminophen [Reagan 1 each PO TID 11/15/19 01/07/20 5-325 Tablet] Leucovorin/Pyridox/Mecobalamin 1 each PO DAILY 11/15/19 01/07/20 [Folinic-Plus Caplet] Thiamine Mononitrate (Vit B1) 100 mg PO DAILY 11/15/19 01/07/20 [Vitamin B-1] albuterol sulfate 90 mcg/actuation 1 inh INHALATION Q4-6H PRN 11/25/19 01/07/20 breath activated powder inhaler,sensor Lipase/Protease/Amylase [Creon Dr 2 each PO TIDWM 12/05/19 01/07/20 36,000 Units Capsule] Previous Rx's Medication Instructions Recorded lorazepam 2 mg tablet See Rx Instructions .ROUTE 11/25/19 .COMPLEX #90 tab dicyclomine 20 mg tablet 20 mg PO Q6H PRN #45 tab 12/06/19 Allergies Allergy/AdvReac Type Severity Reaction Status Date / Time cephalexin [From Keflex] Allergy Mild Hives Verified 01/07/20 10:33 diphenhydramine Allergy Unknown Verified 01/07/20 10:33 [DIPHENHYDRAMINE] sulfamethoxazole Allergy Unknown Ve
--- NOTE | 2020-01-18 14:31 | HMH.EDGENADL ---
ED Disposition Clinical Impression: Dehydration, Hypokalemia Vomiting Qualifiers: Vomiting type: unspecified Vomiting Intractability: unspecified Nausea presence: with nausea Qualified Code(s): R11.2 - Nausea with vomiting, unspecified Disposition: Home, Self-Care Condition on Discharge: Good Instructions: DI for Alcohol Poisoning, DI for Dehydration -- Adult Prescriptions: Potassium Chloride [Klor-con 20 mEq tablet] 20 meq PO DAILY #5 tab Prescription Printed Ondansetron [Zofran 4mg ODT] 4 mg PO Q6 PRN #10 tab.rapdis PRN Reason: Nausea Prescription Printed Referrals: Richard Edgar MD [Primary Care Provider] - 3 days - Critical Care Critical Care Time: No Attestation: On 01/18/20, the high probability of a clinically significant, sudden or life threatening deterioration of the following system(s) required my full and direct attention, intervention and personal management. The time I documented below is in addition to time spent performing reported procedures but includes the following listed in this critical care notation. Medical Decision Making - Medical Records Medical records reviewed: Yes: I reviewed the patient's medical records. - Medhat Inquiry Pt receiving controlled substance: No Vital Signs: 01/18/20 14:12 01/18/20 14:32 01/18/20 15:28 Temperature 98.7 F 97.5 F L Temperature Source Oral Oral Pulse Rate [Right Brachial] 132 H 117 H 102 H Respiratory Rate 26 H 19 Blood Pressure [Right Arm] 127/73 121/84 114/66 Blood Pressure Mean [Right Arm] 91 96 82 Blood Pressure Source [Right Arm] Automatic Cuff Automatic Cuff Automatic Cuff Blood Pressure Position [Right Arm] Sitting Sitting Sitting 02 Sat by Pulse Oximetry 97 96 99 Oxygen Delivery Method Room Air Room Air 01/18/20 15:48 Temperature Temperature Source Pulse Rate [Right Brachial] 105 H Respiratory Rate Blood Pressure [Right Arm] 114/66 Blood Pressure Mean [Right Arm] 82 Blood Pressure Source [Right Arm] Automatic Cuff Blood Pressure Position [Right Arm] Sitting 02 Sat by Pulse Oximetry 100 Oxygen Delivery Method Room Air - Lab Data Lab results reviewed: Yes: I reviewed the patient's lab results. Lab Results 01/18/20 14:50: WBC 14.3 H, RBC 4.73, Hgb 15.6, Hct 44.8, MCV 94.8 H, MCH 33.1 H, MCHC 34.9, RDW 13.4, Plt Count 146, MPV 7.9, Neut % (Auto) 85.3 H, Lymph % (Auto) 8.7 L, [place] % (Auto) 5.5, Eos % (Auto) 0.4, Baso % (Auto) 0.2, Neut # (Auto) 12.2 H, Lymph # (Auto) 1.2, [place] # (Auto) 0.8, Eos # (Auto) 0.1, Baso # (Auto) 0.0, Total Counted 100, Neutrophils % (Manual) 83 H, Lymphocytes % (Manual) 11, Monocytes % (Manual) 6, Platelet Estimate Normal, RBC Morphology Normal 01/18/20 14:50: Sodium 134 L, Potassium 2.9 L*, Chloride 87 L, Carbon Dioxide 30, Anion Gap 19.9 H, BUN 8 L, Creatinine 0.60 L, Estimated Creat Clear 144, Estimated GFR 140, Est GFR ( Amer) 170, Glucose 127 H, Calcium 9.3, Total Bilirubin 1.6 H, AST 92 H, ALT 43, Alkaline Phosphatase 218 H, Total Protein 7.6, Albumin 4.4, Globulin 3.2, Albumin/Globulin Ratio 1.4, Lipase 97 01/18/20 14:50: Plasma/Serum Alcohol 44 H Result diagrams: 01/18/20 14:50 01/18/20 14:50 Orders (Tests/Meds): ED MEDICATIONS Generic Name Dose Route Start Last Admin Trade Name Freq PRN Reason Stop Dose Admin Sodium Chloride 10 ml 01/18/20 14:30 Sodium Chloride 0.9% 10ml Vial IV 02/17/20 14:29 NEEDED PRN dilute protonix Discontinued Medications Generic Name Dose Route Start Last Admin Trade Name Freq PRN Reason Stop Dose Admin Sodium Chloride 1,000 mls @ 999 mls/hr 01/18/20 14:30 01/18/20 14:47 Sod Chlor 0.9% 1000ml Bag IV 01/18/20 15:30 999 mls/hr .Q1H1M BUZZ Administration Sodium Chloride 1,000 mls @ 999 mls/hr 01/18/20 15:00 01/18/20 15:26 Sod Chlor 0.9% 1000ml Bag IV 01/18/20 16:00 999 mls/hr .Q1H1M BUZZ Administration Ondansetron HCl 4 mg 01/18/20 14:29 01/18/20 14:50 Zofran 4mg/2ml Vial IV 01/18/20 1
[2020-01-18 14:32] VITALS: BP 121/84; PULSE 117; RESP 19; TEMP 36.4; O2SAT 96; BMI 24.3
[2020-01-18 15:06] LABS: Basophils % 0.2 % (0.1-2.0); Eosinophils # 0.1 K/mm3 (0.0-0.4); Eosinophils % 0.4 % (0.1-12.0); Hematocrit 44.8 % (42.0-52.0); Hemoglobin 15.6 g/dL (14.1-18.0); Lymphocytes # 1.2 K/mm3 (0.7-4.5); Lymphocytes % 8.7 % (10-50); Mean Corpuscular HGB Conc 34.9 g/dL (31.8-35.4); Mean Corpuscular Hemoglobin 33.1 pg (27.0-31.2); Mean Corpuscular Volume 94.8 fl (80-94); Mean Platelet Volume 7.9 fl (7.4-10.4); Monocytes # 0.8 K/mm3 (0.1-1.0); Monocytes % 5.5 % (1.7-9.3); Neutrophils # 12.2 K/mm3 (1.8-7.8); Neutrophils % 85.3 % (37.0-80.0); Platelet Count 146 K/mm3 (142-424); Red Blood Count 4.73 M/mm3 (4.60-6.20); Red Cell Distribution Width 13.4 % (11.5-17.5); White Blood Count 14.3 K/mm3 (4.8-10.8)
[2020-01-18 15:11] LABS: Chloride 87 mmol/L (98-107); Sodium 134 mmol/L (136-145)
[2020-01-18 15:14] LABS: Alanine Aminotransferase 43 U/L (12-78); Albumin Level 4.4 g/dl (3.5-5.0); Albumin/Globulin Ratio 1.4 (1.1-1.8); Alkaline Phosphatase 218 U/L (38-126); Anion Gap 19.9 mEq/L (5-15); Aspartate Amino Transferase 92 U/L (17-59); Bilirubin,Total 1.6 mg/dl (0.2-1.3); Blood Urea Nitrogen 8 mg/dl (9-20); Calcium 9.3 mg/dl (8.4-10.2); Carbon Dioxide 30 mmol/L (22.0-30.0); Creatinine Clearance Estimated 144 mL/min (50-200); Estimated Glomerular Filt Rate 140 ml/min (>60); Ethyl Alcohol 44 mg/dl (0-10); GFR (African American) 170 ML/MIN (>60); Globulin 3.2 g/dL (1.3-3.2); Glucose 127 mg/dl (74-100); Lipase 97 U/L (23-300); Total Protein,Serum 7.6 g/dl (6.3-8.2)
[2020-01-18 15:27] LABS: Potassium 2.9 mmoL/L (3.5-5.1)
[2020-01-18 15:28] VITALS: BP 114/66; PULSE 102; O2SAT 99
[2020-01-18 15:34] LABS: MANUAL DIFFERENTIAL MANUAL DIFFERENTIAL (MANUAL DIFF)
[2020-01-18 15:48] VITALS: BP 114/66; PULSE 105; O2SAT 100
[2020-01-18 16:11] LABS: Lymphocytes % 11 % (10-50); Monocytes % 6 % (2-9); Neutrophils % 83 % (42-76); Platelet Estimate Normal; RBC Morphology Normal; Total Cells Counted 100
[2020-01-18 16:40] VITALS: BP 142/84; PULSE 88; RESP 16; TEMP 36.7; O2SAT 98
== END 2020-01-18 16:48 | disposition home or self-care (01) ==
LOC: UTC 13:41 → ER 14:24
PROVIDERS: Emergency Provider Emergency Medicine; PCP Family Medicine
DX: E86.0 Dehydration (principal); E87.6 Hypokalemia; F10.20 Alcohol dependence, uncomplicated; Y90.2 Blood alcohol level of 40-59 mg/100 ml; J44.9 Chronic obstructive pulmonary disease, unspecified; F41.8 Other specified anxiety disorders; K21.9 Gastro-esophageal reflux disease without esophagitis; F17.210 Nicotine dependence, cigarettes, uncomplicated; Z88.1 Allergy status to other antibiotic agents; Z88.2 Allergy status to sulfonamides
CPT/HCPCS: 80053; 83690; 85007; 85025; 96365; 96366; 96375; 99283; J2405

== ENCOUNTER 2020-02-14 20:34 | Emergency (ER) | payer MEDICAID, SELFPAY ==
--- NOTE | 2020-02-14 20:36 | ECG_ITS ---
APPROVED REPORT Exam: Resting ECG HR:102 bpm ECG Measurements Heart Rate 102 AXES OH 146 P 75 QRSd 84 QRS 82 QT 340 T 80 QTc 443 <Conclusion> Sinus tachycardia Otherwise normal ECG Electronically signed by : Nelson Regan, 02/15/2020 20:21:17
--- NOTE | 2020-02-14 20:40 | XR_ITS ---
PROCEDURE: XR CHEST 2V CLINICAL HISTORY: feels like his heart is racing Tachycardia, smoker COMPARISON: CR CXR CHEST(2 VIEWS-NOT PORTABLE) from 07/31/2012 CR CXR CHEST(2 VIEWS-NOT PORTABLE) from 09/22/[address] CHEST W CON from 11/15/2019 FINDINGS: The cardiomediastinal silhouette and pulmonary vascularity are within normal limits. No lobar consolidation or collapse. Mild chronic prominence of the bronchovascular markings/interstitial markings which may be seen with smoking related lung disease. No acute bony abnormalities. IMPRESSION: As above, no acute finding Dictated by: Pk Jacobsen MD 02/15/2020 05:55 Pk Jacobsen MD in [place] 02/15/2020 05:55
[2020-02-14 20:41] VITALS: BP 150/96; PULSE 104; RESP 18; TEMP 36.8; O2SAT 97; BMI 24.3
[2020-02-14 20:54] LABS: Basophils % 0.8 % (0.1-2.0); Eosinophils # 0.2 K/mm3 (0.0-0.4); Eosinophils % 4.6 % (0.1-12.0); Hematocrit 45.1 % (42.0-52.0); Hemoglobin 15.2 g/dL (14.1-18.0); Lymphocytes # 1.1 K/mm3 (0.7-4.5); Lymphocytes % 21.5 % (10-50); Mean Corpuscular HGB Conc 33.7 g/dL (31.8-35.4); Mean Corpuscular Hemoglobin 33.8 pg (27.0-31.2); Mean Corpuscular Volume 100.1 fl (80-94); Mean Platelet Volume 7.6 fl (7.4-10.4); Monocytes # 0.5 K/mm3 (0.1-1.0); Monocytes % 9.6 % (1.7-9.3); Neutrophils # 3.4 K/mm3 (1.8-7.8); Neutrophils % 63.6 % (37.0-80.0); Platelet Count 141 K/mm3 (142-424); Red Cell Distribution Width 13.8 % (11.5-17.5); White Blood Count 5.3 K/mm3 (4.8-10.8)
[2020-02-14 21:00] LABS: Chloride 94 mmol/L (98-107); Potassium 3.9 mmoL/L (3.5-5.1); Sodium 137 mmol/L (136-145)
[2020-02-14 21:02] LABS: Microscopic, Urine URINE MICROSCOPIC (MICROSCOPIC)
[2020-02-14 21:03] LABS: Blood Urea Nitrogen 2 mg/dl (9-20); Creatinine Clearance Estimated 173 mL/min (50-200); Estimated Glomerular Filt Rate 173 ml/min (>60); GFR (African American) 210 ML/MIN (>60)
[2020-02-14 21:04] LABS: Anion Gap 17.9 mEq/L (5-15); Calcium 9.8 mg/dl (8.4-10.2); Carbon Dioxide 29 mmol/L (22.0-30.0); Ethyl Alcohol 178 mg/dl (0-10); Glucose 139 mg/dl (74-100)
[2020-02-14 21:05] LABS: Appearance,Urine CLEAR (Clear); Bilirubin,Urine Negative (Negative); Blood, Urine Negative (Negative); Color,Urine YELLOW (Yellow); Glucose,Urine (UA) Negative (Negative); Ketones,Urine Negative (Negative); Leukocyte Esterase,Urine Negative (Negative); Nitrate,Urine Negative (Negative); Protein,Urine Negative (Negative); Specific Gravity, Urine <= 1.005 (1.005-1.030); Urobilinogen,Urine 0.2 EU/dl (0.2)
--- NOTE | 2020-02-14 21:05 | HMH.EDARPALP ---
ED Disposition Clinical Impression: Sinus tachycardia Alcohol intoxication Qualifiers: Complication of substance-induced condition: with unspecified complication Qualified Code(s): F10.929 - Alcohol use, unspecified with intoxication, unspecified Disposition: Home, Self-Care Condition on Discharge: Good Instructions: DI for Alcohol Abuse Additional Instructions: call pcp in am and consider rehab Referrals: Richard Edgar MD [Primary Care Provider] - - Critical Care Critical Care Time: No Attestation: On 02/14/20, the high probability of a clinically significant, sudden or life threatening deterioration of the following system(s) required my full and direct attention, intervention and personal management. The time I documented below is in addition to time spent performing reported procedures but includes the following listed in this critical care notation. Medical Decision Making - Medical Records Medical records reviewed: Yes: I reviewed the patient's medical records. - Medhat Inquiry Pt receiving controlled substance: No Vital Signs: 02/14/20 20:41 02/14/20 21:29 Temperature 98.2 F Temperature Source Oral Pulse Rate [Right] 104 H 81 Respiratory Rate 18 18 Blood Pressure [Right Arm] 150/96 H 157/87 H Blood Pressure Mean [Right Arm] 114 110 Blood Pressure Source [Right Arm] Automatic Cuff Blood Pressure Position [Right Arm] Sitting 02 Sat by Pulse Oximetry 97 98 Oxygen Delivery Method Room Air Room Air - Lab Data Lab results reviewed: Yes: I reviewed the patient's lab results. Lab Results 02/14/20 20:47: WBC 5.3, RBC 4.50 L, Hgb 15.2, Hct 45.1, MCV 100.1 H, MCH 33.8 H, MCHC 33.7, RDW 13.8, Plt Count 141 L, MPV 7.6, Neut % (Auto) 63.6, Lymph % (Auto) 21.5, [place] % (Auto) 9.6 H, Eos % (Auto) 4.6, Baso % (Auto) 0.8, Neut # (Auto) 3.4, Lymph # (Auto) 1.1, [place] # (Auto) 0.5, Eos # (Auto) 0.2, Baso # (Auto) 0.0 02/14/20 20:47: Sodium 137, Potassium 3.9, Chloride 94 L, Carbon Dioxide 29, Anion Gap 17.9 H, BUN 2 L, Creatinine 0.50 L, Estimated Creat Clear 173, Estimated GFR 173, Est GFR ( Amer) 210, Glucose 139 H, Calcium 9.8, Troponin I < 0.01 02/14/20 20:47: Plasma/Serum Alcohol 178 H 02/14/20 20:55: Urine Color Yellow, Urine Appearance Clear, Urine pH 7.0, Ur Specific [place] <= 1.005, Urine Protein Negative, Urine Glucose (UA) Negative, Urine Ketones Negative, Urine Blood Negative, Urine Nitrate Negative, Urine Bilirubin Negative, Urine Urobilinogen 0.2, Ur Leukocyte Esterase Negative, Urine WBC Occasional, Urine Bacteria Trace 02/14/20 20:55: Urine Opiates Screen Negative, Urine Methadone Screen Negative, Ur Barbituates Screen Negative, Ur Phencyclidine Scrn Negative, Ur Amphetamines Screen Negative, U Benzodiazepines Scrn Negative, Urine Cocaine Screen Negative, U Marijuana (THC) Screen Negative Result diagrams: 02/14/20 20:47 02/14/20 20:47 Orders (Tests/Meds): ED MEDICATIONS Generic Name Dose Route Start Last Admin Trade Name Almasq PRN Reason Stop Dose Admin Sodium Chloride 1,000 mls @ 999 mls/hr 02/14/20 21:00 02/14/20 20:56 Sod Chlor 0.9% 1000ml Bag IV 02/14/20 22:00 999 mls/hr .Q1H1M BUZZ Administration ORDERS Category Date Time Status XR chest 2V Stat Exams 02/14/20 20:40 Taken Troponin I Q3H Lab 02/14/20 23:45 Ordered Troponin I Q3H Lab 02/15/20 02:45 Ordered - Radiology Data #1 Image(s): Chest Image Reviewed: Yes I reviewed the patient's radiology image Preliminary Findings: Normal/NAD - ECG Data Tracing #1 Arrhythmias present: sinus tach Ischemic changes: non-specific ST-T wave changes - JAMES Score for Non-Stemi Age of Patient: 50-59 years old Heart Rate: 90-109 bpm Systolic Blood Pressure: 140-159 mmHg Serum Creatinine: 0.40-0.79 mg/dl CHF [place] Class: I-No CHF Other Risk Factors: None Non-Stemi Risk Score: 84 Arrhythmia/Palpitations HPI - General Chief Complaint: Arrhythmia/Palpitations Stated Complaint: Heart Racing Jerardo
[2020-02-14 21:15] LABS: Amphetamine/Metha Screen,Urine Negative ng/ml (<1000)
[2020-02-14 21:16] LABS: Barbiturates Screen,Urine Negative ng/ml (<200); Benzodiazepines Screen,Urine Negative ng/ml (<200)
[2020-02-14 21:17] LABS: Cannabinoid Screen,Urine Negative ng/ml (<50)
[2020-02-14 21:18] LABS: Cocaine Screen,Urine Negative ng/ml (<300); Methadone Screen,Urine Negative ng/ml (<300)
[2020-02-14 21:19] LABS: Opiate Screen,Urine Negative ng/ml (<300)
[2020-02-14 21:20] LABS: Phencyclidine Screen,Urine Negative ng/ml (<25)
[2020-02-14 21:23] LABS: Bacteria,Urine Trace /lpf; WBC,Urine Occasional #/hpf (0-3)
[2020-02-14 21:24] LABS: Troponin I < 0.01 ng/ml (0.00-0.034)
[2020-02-14 21:29] VITALS: BP 157/87; PULSE 81; RESP 18; O2SAT 98
[2020-02-14 22:04] VITALS: BP 135/78; PULSE 68; RESP 18; O2SAT 98
[2020-02-14 22:08] VITALS: BP 132/62; PULSE 68; RESP 12; TEMP 36.8; O2SAT 98
== END 2020-02-14 22:11 | disposition home or self-care (01) ==
PROVIDERS: Emergency Provider Emergency Medicine; PCP Family Medicine
DX: R00.0 Tachycardia, unspecified (principal); F10.929 Alcohol use, unspecified with intoxication, unspecified; F41.8 Other specified anxiety disorders; K21.9 Gastro-esophageal reflux disease without esophagitis; J44.9 Chronic obstructive pulmonary disease, unspecified; F17.210 Nicotine dependence, cigarettes, uncomplicated; Z88.2 Allergy status to sulfonamides
CPT/HCPCS: 71046; 80048; 80305; 81001; 84484; 85025; 93005; 96365; 96375; 99284

== ENCOUNTER → 2020-05-16 14:39 | Outpatient (CLI) | payer MEDICAID, SELFPAY ==
[2020-05-16 15:08] LABS: Hemoglobin A1C 5.1 % (4.0-6.0)
[2020-05-16 15:43] LABS: Alanine Aminotransferase 37 U/L (12-78); Albumin Level 4.2 g/dl (3.5-5.0); Albumin/Globulin Ratio 1.3 (1.1-1.8); Alkaline Phosphatase 164 U/L (38-126); Aspartate Amino Transferase 44 U/L (17-59); Bilirubin,Total 0.5 mg/dl (0.2-1.3); Blood Urea Nitrogen 4 mg/dl (9-20); Calcium 9.7 mg/dl (8.4-10.2); Carbon Dioxide 28 mmol/L (22.0-30.0); Chloride 100 mmol/L (98-107); Estimated Glomerular Filt Rate 140 ml/min (>60); GFR (African American) 169 ML/MIN (>60); Globulin 3.2 g/dL (1.3-3.2); Glucose 114 mg/dl (74-100); Sodium 132 mmol/L (136-145); Total Protein,Serum 7.4 g/dl (6.3-8.2)
[2020-05-16 15:58] LABS: Lipase 730 U/L (23-300)
== END ==
PROVIDERS: Visit Provider Family Medicine
DX: K85.90 Acute pancreatitis without necrosis or infection, unspecified (principal); R73.09 Other abnormal glucose; E11.9 Type 2 diabetes mellitus without complications
CPT/HCPCS: 80053; 83036; 83690

== ENCOUNTER → 2020-05-30 11:27 | Outpatient (CLI) | payer MEDICAID, SELFPAY ==
[2020-05-31 09:26] LABS: Lipase 180 U/L (23-300)
== END ==
PROVIDERS: Visit Provider Family Medicine
DX: K85.90 Acute pancreatitis without necrosis or infection, unspecified (principal)
CPT/HCPCS: 83690

== ENCOUNTER → 2020-06-12 07:44 | Outpatient (CLI) | payer MEDICAID, SELFPAY ==
--- NOTE | 2020-06-12 07:44 | CT_ITS ---
PROCEDURE: CT ABDOMEN WO CON CLINICAL HISTORY: pancreatitis pancreatitis f/u Pancreatitis x 4 times spot on pancreas per patient flu Asymptomatic at this time COMPARISON: CT CT ABDOMEN PELVIS W CON from 11/15/2019 TECHNIQUE: Axial images obtained with sagittal and coronal reformats. All CT scans at the facility use one or more dose reduction, viz: automated exposure control, ma/kV adjustment per patient size (including targeted exams where dose is matched to indication, i.e. head), or iterative reconstruction technique. FINDINGS: Minimal atelectatic or fibrotic changes are present in the left lung base. A 6 mm subpleural opacity is present in the left lower lobe posteriorly and could be due to an area of atelectasis versus developing nodule. Follow-up may confirm stability. Interval cholecystectomy. The liver and spleen have an unremarkable appearance. No adrenal mass evident. Previously there was a question of a necrotic area in the tail the pancreas. This is not well evaluated without IV contrast. No obvious pancreatic mass evident. The previously noted pancreatitis has improved with improvement in the peripancreatic inflammatory change. No abscess apparent. Minimal calcification noted in the head of the pancreas No renal or ureteral calculi. There is a mild amount of retained colonic feces. No evidence of appendicitis. A rounded soft tissue density is present anterior to the tail the pancreas consistent with a splenule at 12 mm. The bowel gas pattern is nonspecific. There are some fluid-filled nondistended loops of small bowel which could be related to ileus or enteritis. Degenerative disc disease L5-S1. IMPRESSION: 1. Interval improvement in the pancreatitis. No obvious pancreatic necrosis is evident however, evaluation for necrosis is limited without IV contrast. No areas pseudo cyst or abscess involvement suspected. 2. Possible ileus/enteritis 3. Nodular opacity left lung base possibly due to an area of atelectasis. Stability may be confirmed with follow-up to exclude developing nodule. Dictated by: Pk Jacobsen MD 06/13/2020 10:29 Pk Jacobsen MD in [place] 06/13/2020 10:29
== END ==
PROVIDERS: PCP Family Medicine; Visit Provider Family Medicine
DX: K85.90 Acute pancreatitis without necrosis or infection, unspecified (principal)
CPT/HCPCS: 74150

== ENCOUNTER → 2020-06-23 13:08 | Outpatient (CLI) | payer MEDICAID, SELFPAY ==
[2020-06-23 13:50] LABS: Blood Urea Nitrogen 7 mg/dl (9-20); Estimated Glomerular Filt Rate 100 ml/min (>60); GFR (African American) 121 ML/MIN (>60)
== END ==
PROVIDERS: Visit Provider Internal Medicine Medical Oncology
DX: Z01.818 Encounter for other preprocedural examination (principal)
CPT/HCPCS: 36415; 82565; 84520

== ENCOUNTER → 2020-06-26 10:19 | Outpatient (CLI) | payer MEDICAID, SELFPAY ==
--- NOTE | 2020-06-26 10:24 | MR_ITS ---
PROCEDURE: MR HEAD/BRAIN WO/W CON CLINICAL INDICATION: LUNG CANCER HX NON-SMALL CELL LUNG CANCER DIAGNOSED IN 2016. CANCER METASTASIZED TO BACK YRS AGO. Metastatic non-small cell cancer of the lung COMPARISON: No exams were available for comparison TECHNIQUE: Routine multiplanar multi echo sequences are performed without and with gadolinium enhancement. FINDINGS: No midline shift, mass effect, intracranial hemorrhage, or hydrocephalus is evident. No evidence of acute infarction. There is mild generalized atrophy. No enhancing lesions. The cerebellopontine angles, cerebellum, and brainstem have an unremarkable appearance. No mastoid effusion or sinus air-fluid level. The pituitary, optic chiasm, corpus callosum, and craniocervical junction have an unremarkable appearance. IMPRESSION: No acute intracranial findings. No evidence of metastatic disease. Dictated by: Pk Jacobsen MD 06/27/2020 11:27 Pk Jacobsen MD in [place] 06/27/2020 11:27
== END ==
PROVIDERS: PCP Family Medicine; Visit Provider Internal Medicine Medical Oncology
DX: Z85.118 Personal history of other malignant neoplasm of bronchus and lung (principal); R91.1 Solitary pulmonary nodule
CPT/HCPCS: 70553; A9576

== ENCOUNTER → 2020-11-27 17:35 | Outpatient (CLI) | payer MEDICAID, SELFPAY ==
[2020-11-27 18:20] LABS: Basophils % 0.8 % (0.1-2.0); Eosinophils # 0.1 K/mm3 (0.0-0.4); Eosinophils % 1.9 % (0.1-12.0); Hemoglobin 15.5 g/dL (14.1-18.0); Lymphocytes # 0.8 K/mm3 (0.7-4.5); Lymphocytes % 15.6 % (10-50); Mean Corpuscular HGB Conc 34.5 g/dL (31.8-35.4); Mean Corpuscular Hemoglobin 34.7 pg (27.0-31.2); Mean Corpuscular Volume 100.5 fl (80-94); Mean Platelet Volume 9.7 fl (7.4-10.4); Monocytes # 0.4 K/mm3 (0.1-1.0); Monocytes % 7.7 % (1.7-9.3); Neutrophils # 3.9 K/mm3 (1.8-7.8); Platelet Count 129 K/mm3 (142-424); Red Blood Count 4.48 M/mm3 (4.60-6.20); Red Cell Distribution Width 16.2 % (11.5-17.5); White Blood Count 5.2 K/mm3 (4.8-10.8)
[2020-11-27 18:36] LABS: Alanine Aminotransferase 102 U/L (12-78); Albumin Level 4.8 g/dl (3.5-5.0); Albumin/Globulin Ratio 1.5 (1.1-1.8); Alkaline Phosphatase 328 U/L (38-126); Aspartate Amino Transferase 251 U/L (17-59); Bilirubin,Total 1.4 mg/dl (0.2-1.3); Blood Urea Nitrogen 3 mg/dl (9-20); Calcium 9.4 mg/dl (8.4-10.2); Carbon Dioxide 24 mmol/L (22.0-30.0); Chloride 96 mmol/L (98-107); Estimated Glomerular Filt Rate 140 ml/min (>60); GFR (African American) 169 ML/MIN (>60); Globulin 3.3 g/dL (1.3-3.2); Glucose 92 mg/dl (74-100); Lipase 394 U/L (23-300); Sodium 136 mmol/L (136-145); Total Protein,Serum 8.1 g/dl (6.3-8.2)
== END ==
PROVIDERS: Visit Provider Family Medicine
DX: R10.9 Unspecified abdominal pain (principal)
CPT/HCPCS: 80053; 83690; 85025

== ENCOUNTER → 2021-01-30 18:39 | Outpatient (CLI) | payer MEDICAID, SELFPAY ==
[2021-01-30 20:07] LABS: Alanine Aminotransferase 47 U/L (12-78); Albumin Level 3.6 g/dl (3.5-5.0); Albumin/Globulin Ratio 1.1 (1.1-1.8); Alkaline Phosphatase 508 U/L (38-126); Anion Gap 16.3 mEq/L (5-15); Aspartate Amino Transferase 92 U/L (17-59); Bilirubin,Total 1.2 mg/dl (0.2-1.3); Calcium 8.9 mg/dl (8.4-10.2); Carbon Dioxide 24 mmol/L (22.0-30.0); Chloride 96 mmol/L (98-107); Estimated Glomerular Filt Rate 173 ml/min (>60); GFR (African American) 209 ML/MIN (>60); Globulin 3.4 g/dL (1.3-3.2); Glucose 110 mg/dl (74-100); Lipase 95 U/L (23-300); Potassium 5.3 mmoL/L (3.5-5.1); Sodium 131 mmol/L (136-145)
[2021-01-30 20:08] LABS: Blood Urea Nitrogen < 2 mg/dl (9-20)
== END ==
PROVIDERS: Visit Provider Family Medicine
DX: K85.90 Acute pancreatitis without necrosis or infection, unspecified (principal)
CPT/HCPCS: 80053; 83690

== ENCOUNTER 2021-02-05 13:44 | Emergency (ER) | payer MEDICAID, SELFPAY ==
[2021-02-05 13:46] VITALS: BP 118/78; PULSE 89; RESP 18; TEMP 36.8; O2SAT 100; BMI 22.8
[2021-02-05 14:00] VITALS: BP 113/78; PULSE 87; O2SAT 100
[2021-02-05 14:30] VITALS: BP 115/68; PULSE 89; O2SAT 100
[2021-02-05 14:42] LABS: Basophils # 0.1 K/mm3 (0-0.2); Basophils % 0.6 % (0.1-2.0); Eosinophils # 0.1 K/mm3 (0.0-0.4); Eosinophils % 1.5 % (0.1-12.0); Hematocrit 42.3 % (42.0-52.0); Hemoglobin 14.1 g/dL (14.1-18.0); Lymphocytes % 10.7 % (10-50); Mean Corpuscular HGB Conc 33.4 g/dL (31.8-35.4); Mean Corpuscular Hemoglobin 38.8 pg (27.0-31.2); Mean Corpuscular Volume 116.1 fl (80-94); Mean Platelet Volume 9.3 fl (7.4-10.4); Monocytes # 0.3 K/mm3 (0.1-1.0); Monocytes % 3.8 % (1.7-9.3); Neutrophils # 7.4 K/mm3 (1.8-7.8); Neutrophils % 83.3 % (37.0-80.0); Platelet Count 235 K/mm3 (142-424); Red Blood Count 3.64 M/mm3 (4.60-6.20); Red Cell Distribution Width 13.7 % (11.5-17.5); White Blood Count 8.9 K/mm3 (4.8-10.8)
[2021-02-05 15:04] LABS: Microscopic, Urine URINE MICROSCOPIC (MICROSCOPIC)
[2021-02-05 15:06] LABS: Appearance,Urine CLEAR (Clear); Bilirubin,Urine Negative (Negative); Blood, Urine Negative (Negative); Color,Urine YELLOW (Yellow); Glucose,Urine (UA) Negative (Negative); Ketones,Urine Negative (Negative); Leukocyte Esterase,Urine Negative (Negative); Nitrate,Urine Negative (Negative); Protein,Urine Negative (Negative); Specific Gravity, Urine <= 1.005 (1.005-1.030); Urobilinogen,Urine 0.2 EU/dl (0.2)
[2021-02-05 15:13] LABS: Alanine Aminotransferase 35 U/L (12-78); Albumin Level 3.2 g/dl (3.5-5.0); Alkaline Phosphatase 598 U/L (38-126); Anion Gap 12.2 mEq/L (5-15); Aspartate Amino Transferase 81 U/L (17-59); Bilirubin,Total 1.3 mg/dl (0.2-1.3); Blood Urea Nitrogen 2 mg/dl (9-20); Calcium 8.5 mg/dl (8.4-10.2); Carbon Dioxide 24 mmol/L (22.0-30.0); Chloride 97 mmol/L (98-107); Creatinine Clearance Estimated 161 mL/min (50-200); Estimated Glomerular Filt Rate 173 ml/min (>60); GFR (African American) 209 ML/MIN (>60); Globulin 3.1 g/dL (1.3-3.2); Glucose 131 mg/dl (74-100); Lipase 101 U/L (23-300); Potassium 4.2 mmoL/L (3.5-5.1); Sodium 129 mmol/L (136-145); Total Protein,Serum 6.3 g/dl (6.3-8.2)
[2021-02-05 15:14] LABS: Bacteria,Urine Trace /lpf; Squamous Epithelial Cell,Urine Occasional #/hpf (0-5)
[2021-02-05 15:25] LABS: Troponin I < 0.01 ng/ml (0.00-0.034)
--- NOTE | 2021-02-05 15:27 | HMH.EDGENADL ---
ED Disposition Clinical Impression: Chronic alcohol abuse, Elevated alkaline phosphatase level, Hyponatremia Disposition: Home, Self-Care Condition on Discharge: Good Instructions: DI for Acute Abdominal Pain Additional Instructions: Work on reducing your alcohol intake. Follow-up with PCP in 1 to 2 days. Referrals: Richard Edgar MD [Primary Care Provider] - 3 days Time of Disposition: 15:41 - Critical Care Critical Care Time: No Attestation: On 02/05/21, the high probability of a clinically significant, sudden or life threatening deterioration of the following system(s) required my full and direct attention, intervention and personal management. The time I documented below is in addition to time spent performing reported procedures but includes the following listed in this critical care notation. Medical Decision Making - Medical Records Medical records reviewed: Yes: I reviewed the patient's medical records. - Medhat Inquiry Pt receiving controlled substance: No Vital Signs: 02/05/21 13:46 02/05/21 14:00 02/05/21 14:30 Temperature 98.3 F Temperature Source Oral Pulse Rate 87 89 Pulse Rate [Left Radial] 89 Respiratory Rate 18 Blood Pressure 113/78 115/68 Blood Pressure [Right Arm] 118/78 Blood Pressure Mean 86 76 Blood Pressure Mean [Right Arm] 91 Blood Pressure Source [Right Arm] Automatic Cuff Blood Pressure Position [Right Arm] Sitting 02 Sat by Pulse Oximetry 100 100 100 Oxygen Delivery Method Room Air - Lab Data Lab results reviewed: Yes: I reviewed the patient's lab results. Lab Results 02/05/21 14:20: WBC 8.9, RBC 3.64 L, Hgb 14.1, Hct 42.3, MCV 116.1 H, MCH 38.8 H, MCHC 33.4, RDW 13.7, Plt Count 235, MPV 9.3, Neut % (Auto) 83.3 H, Lymph % (Auto) 10.7, [place] % (Auto) 3.8, Eos % (Auto) 1.5, Baso % (Auto) 0.6, Neut # (Auto) 7.4, Lymph # (Auto) 1.0, [place] # (Auto) 0.3, Eos # (Auto) 0.1, Baso # (Auto) 0.1 02/05/21 14:50: Sodium 129 L, Potassium 4.2, Chloride 97 L, Carbon Dioxide 24, Anion Gap 12.2, BUN 2 L, Creatinine 0.50 L, Estimated Creat Clear 161, Estimated GFR 173, Est GFR ( Amer) 209, Glucose 131 H, Calcium 8.5, Total Bilirubin 1.3, AST 81 H, ALT 35, Alkaline Phosphatase 598 H, Troponin I < 0.01, Total Protein 6.3, Albumin 3.2 L, Globulin 3.1, Albumin/Globulin Ratio 1.0 L, Lipase 101 02/05/21 14:50: Urine Color Yellow, Urine Appearance Clear, Urine pH 7.0, Ur Specific [place] <= 1.005, Urine Protein Negative, Urine Glucose (UA) Negative, Urine Ketones Negative, Urine Blood Negative, Urine Nitrate Negative, Urine Bilirubin Negative, Urine Urobilinogen 0.2, Ur Leukocyte Esterase Negative, Urine RBC None, Urine WBC None, Ur Squamous Epith Cells Occasional, Urine Bacteria Trace Result diagrams: 02/05/21 14:20 02/05/21 14:50 Orders (Tests/Meds): ORDERS Category Date Time Status CT abdomen pelvis w con Stat Cat Scan 02/05/21 15:26 Ordered Medical Decision Narrative: 55yo M evaluated for stated complaint of acute pancreatitis. Patient no acute distress on initial evaluation. He had no episodes of nausea or vomiting during his evaluation in the emergency department. Patient's physical exam is unremarkable except for subjective epigastric tenderness but there is no guarding, withdraw from pain, grimace. Patient's laboratory studies reveal mild hyponatremia, mild increase in AST and a consistently chronic elevated alkaline phosphatase. Given lack of concerning physical exam findings, the patient CT was canceled. He is rehydrated with normal saline and discharged home in stable condition. General Adult HPI - General Chief complaint: Abdominal Pain Stated complaint: abdominal pain Time Seen by Provider: 02/05/21 15:27 Mode of Arrival: Ambulatory Limitations: No Limitations Description of Symptoms (Recalled from ER Triage Doc. by RN): c/o cramping and shaking for one month, sent over by pcp for further evaulation - History of Present Illness HPI narrative
[2021-02-05 16:06] VITALS: BP 123/75; PULSE 89; RESP 20; TEMP 36.8; O2SAT 99
== END 2021-02-05 16:08 | disposition home or self-care (01) ==
PROVIDERS: Emergency Provider Family Medicine; PCP Family Medicine
DX: F10.10 Alcohol abuse, uncomplicated (principal); K86.0 Alcohol-induced chronic pancreatitis; E87.1 Hypo-osmolality and hyponatremia; R74.8 Abnormal levels of other serum enzymes; J44.9 Chronic obstructive pulmonary disease, unspecified; K21.9 Gastro-esophageal reflux disease without esophagitis; Z79.899 Other long term (current) drug therapy
CPT/HCPCS: 80053; 81001; 83690; 84484; 85025; 96365; 99283

== ENCOUNTER 2021-02-09 15:10 | Outpatient (CLI) | payer MEDICAID, SELFPAY ==
[2021-02-09 15:19] VITALS: BMI 22.8
[2021-02-09 15:30] VITALS: BP 115/52; PULSE 78; RESP 20; TEMP 36.9; O2SAT 98
[2021-02-09 15:39] LABS: Basophils # 0.1 K/mm3 (0-0.2); Basophils % 0.5 % (0.1-2.0); Eosinophils # 0.2 K/mm3 (0.0-0.4); Eosinophils % 1.6 % (0.1-12.0); Hematocrit 40.6 % (42.0-52.0); Hemoglobin 13.3 g/dL (14.1-18.0); Lymphocytes # 1.1 K/mm3 (0.7-4.5); Mean Corpuscular HGB Conc 32.8 g/dL (31.8-35.4); Mean Corpuscular Hemoglobin 37.8 pg (27.0-31.2); Mean Corpuscular Volume 115.3 fl (80-94); Monocytes # 0.5 K/mm3 (0.1-1.0); Monocytes % 4.4 % (1.7-9.3); Neutrophils # 8.4 K/mm3 (1.8-7.8); Neutrophils % 82.6 % (37.0-80.0); Platelet Count 220 K/mm3 (142-424); Red Blood Count 3.52 M/mm3 (4.60-6.20); Red Cell Distribution Width 13.8 % (11.5-17.5); White Blood Count 10.2 K/mm3 (4.8-10.8)
[2021-02-09 15:50] LABS: Chloride 95 mmol/L (98-107); Potassium 4.3 mmoL/L (3.5-5.1); Sodium 126 mmol/L (136-145)
[2021-02-09 15:53] LABS: Alanine Aminotransferase 40 U/L (12-78); Albumin Level 3.5 g/dl (3.5-5.0); Albumin/Globulin Ratio 1.2 (1.1-1.8); Alkaline Phosphatase 782 U/L (38-126); Anion Gap 15.3 mEq/L (5-15); Aspartate Amino Transferase 97 U/L (17-59); Bilirubin,Total 1.4 mg/dl (0.2-1.3); Calcium 8.4 mg/dl (8.4-10.2); Carbon Dioxide 20 mmol/L (22.0-30.0); Creatinine Clearance Estimated 161 mL/min (50-200); Estimated Glomerular Filt Rate 173 ml/min (>60); Ethyl Alcohol 130 mg/dl (0-10); GFR (African American) 209 ML/MIN (>60); Glucose 141 mg/dl (74-100); Lipase 85 U/L (23-300); Total Protein,Serum 6.5 g/dl (6.3-8.2)
[2021-02-09 15:58] LABS: Blood Urea Nitrogen < 2 mg/dl (9-20)
[2021-02-09 16:00] VITALS: BP 115/58; PULSE 78; RESP 20; TEMP 36.9; O2SAT 95
[2021-02-09 16:27] VITALS: BP 112/71; PULSE 68; RESP 20; TEMP 36.9; O2SAT 95
== END 2021-02-09 16:36 | disposition home or self-care (01) ==
LOC: INF 15:11
PROVIDERS: PCP Family Medicine; Visit Provider Family Medicine
DX: K85.90 Acute pancreatitis without necrosis or infection, unspecified (principal); E86.0 Dehydration
CPT/HCPCS: 80053; 83690; 85025; 96360; 96361; J2405

== ENCOUNTER 2021-02-17 14:20 | Inpatient (IN) | payer MEDICAID, SELFPAY ==
[2021-02-17] VITALS (8 sets, daily range): BP systolic 130–142; BP diastolic 60–87; PULSE 70–93; RESP 16–20; TEMP 36.8–36.9; O2SAT 96–100; BMI 21.2; BMI 22.1
--- NOTE | 2021-02-17 14:34 | ECG_ITS ---
APPROVED REPORT Exam: Resting ECG HR:88 bpm ECG Measurements Heart Rate 88 AXES KS 128 P 68 QRSd 80 QRS 72 QT 370 T 70 QTc 447 Conclusion Normal sinus rhythm Normal ECG Electronically signed by : Nelson Regan MD 02/18/2021 09:17:51
--- NOTE | 2021-02-17 14:36 | HMH.EDGENADL ---
ED Disposition Clinical Impression: Alcoholism Alcoholic pancreatitis Qualifiers: Chronicity: acute Acute pancreatitis complication: no infection or necrosis Qualified Code(s): K85.20 - Alcohol induced acute pancreatitis without necrosis or infection Disposition: Admitted As Inpatient Condition on Discharge: Fair - Critical Care Critical Care Time: No Attestation: On 02/17/21, the high probability of a clinically significant, sudden or life threatening deterioration of the following system(s) required my full and direct attention, intervention and personal management. The time I documented below is in addition to time spent performing reported procedures but includes the following listed in this critical care notation. Medical Decision Making - Medical Records Medical records reviewed: Yes: I reviewed the patient's medical records. MR Comment: Reviewed emergency department note from visit on 02/05/2021 for same complaint. Reviewed most recent note from outpatient primary care provider visit on 02/13/2021. Also noted that patient has had CT scans from outside hospitals imported into his results. Most recent result was from 01/15/2021 from the [facility]. It showed acute upon chronic pancreatitis with 3.1 and 1.7 cm pseudocyst. Mural thickening involving cecum and proximal ascending colon most compatible with infectious/inflammatory colitis. Profound fatty infiltration of liver with mild hepatomegaly. Stable lytic lesion in the left iliac wing likely reflecting metastatic disease. - Medhat Inquiry Pt receiving controlled substance: Yes Medhat was queried for this patient: Yes Risks and benefits of using a controlled substance: were not discussed with pt by me Vital Signs: 02/17/21 14:22 02/17/21 15:30 02/17/21 16:00 Temperature 98.2 F Temperature Source Oral Pulse Rate 86 81 Pulse Rate [Right] 92 H Respiratory Rate 16 Blood Pressure Blood Pressure [Right Arm] 132/64 Blood Pressure Mean [Right Arm] 86 Blood Pressure Source Blood Pressure Source [Right Arm] Automatic Cuff Blood Pressure Position Blood Pressure Position [Right Arm] Sitting 02 Sat by Pulse Oximetry 99 96 96 Oxygen Delivery Method 02/17/21 18:31 02/17/21 19:09 Temperature Temperature Source Pulse Rate 70 74 Pulse Rate [Right] Respiratory Rate 16 16 Blood Pressure 130/60 130/72 Blood Pressure [Right Arm] Blood Pressure Mean [Right Arm] Blood Pressure Source Automatic Cuff Automatic Cuff Blood Pressure Source [Right Arm] Blood Pressure Position Sitting Sitting Blood Pressure Position [Right Arm] 02 Sat by Pulse Oximetry 98 98 Oxygen Delivery Method Room Air Room Air - Lab Data Lab Results 02/17/21 14:49: Urine Color Yellow, Urine Appearance Clear, Urine pH 7.5, Ur Specific [place] 1.010, Urine Protein Negative, Urine Glucose (UA) Negative, Urine Ketones Trace, Urine Blood Negative, Urine Nitrate Negative, Urine Bilirubin 1+ A, Urine Urobilinogen 1.0, Ur Leukocyte Esterase Negative, Urine RBC None, Urine WBC None, Ur Squamous Epith Cells 5-10, Amorphous Sediment Trace, Urine Bacteria 1+ 02/17/21 15:02: WBC 10.0, RBC 3.24 L, Hgb 12.2 L, Hct 37.5 L, MCV 115.6 H, MCH 37.6 H, MCHC 32.5, RDW 13.7, Plt Count 219, MPV 9.1, Neut % (Auto) 84.5 H, Lymph % (Auto) 8.7 L, [place] % (Auto) 5.5, Eos % (Auto) 1.0, Baso % (Auto) 0.3, Neut # (Auto) 8.5 H, Lymph # (Auto) 0.9, [place] # (Auto) 0.6, Eos # (Auto) 0.1, Baso # (Auto) 0.0 02/17/21 15:02: Sodium 132 L, Potassium 4.1, Chloride 97 L, Carbon Dioxide 26, Anion Gap 13.1, BUN 2 L, Creatinine 0.50 L, Estimated Creat Clear 150, Estimated GFR 173, Est GFR ( Amer) 209, Glucose 138 H, Calcium 8.2 L, Total Bilirubin 1.1, AST 72 H, ALT 26, Alkaline Phosphatase 685 H, Total Protein 6.1 L, Albumin 3.0 L, Globulin 3.1, Albumin/Globulin Ratio 1.0 L, Amylase 68, Lipase 577 H 02/17/21 15:02: Plasma/Serum Alcohol < 10 02/17/21 15:02: Troponin I < 0.01 Result diagrams: 10
--- NOTE | 2021-02-17 15:18 | CT_ITS ---
PROCEDURE INFORMATION: Exam: CT Abdomen And Pelvis With Contrast Exam date and time: 02/17/2021 3:18 PM Age: 55 years old Clinical indication: Abdominal tenderness; Patient HX: Abdomen pain-- prior studies done and also did delays for kidneys; Additional info: Abd pain. History of pancreatitis. TECHNIQUE: Imaging protocol: Computed tomography of the abdomen and pelvis with contrast. Radiation optimization: All CT scans at this facility use at least one of these dose optimization techniques: automated exposure control; mA and/or kV adjustment per patient size (includes targeted exams where dose is matched to clinical indication); or iterative reconstruction. Contrast material: ISOVUE; Contrast volume: 75 ml; Contrast route: IV; COMPARISON: CT ABDOMEN WO CON 06/12/2020 7:56 AM FINDINGS: Lungs: Minimal chronic interstitial scarring and atelectasis at the posterolateral left lung base. No suspicious enlarging nodule compared with the prior exam. No consolidation. Liver: Heterogeneous liver attenuation suggesting patchy fatty change. No suspicious mass. Minimal liver nodularity, a tiny exophytic isodense 1 cm nodule at the inferior tip of the right lobe of liver coronal series 601, image 30; no suspicious appearing masses. Borderline hepatomegaly, slightly enlarged compared with the prior exam. Gallbladder and bile ducts: There has been interval cholecystectomy. Biliary tree is within normal limits. No calcified stones. Pancreas: Findings of recurrent pancreatitis. Infiltrative edema in the proximal pancreas and mild peripancreatic phlegmon. A new loculated, organizing pseudocyst interposed between the distal body of pancreas and stomach, measuring 2.9 x 2.6 x 2.2 cm series 3, image 38, coronal series 601, image 27. This shows faint rim enhancement. Other smaller ill-defined fluid collections. No significant ductal dilatation. Retroperitoneal soft tissue stranding/edema fluid. Spleen: No splenomegaly. Calcified splenic granulomas. Adrenal glands: The adrenal glands are normal. Kidneys and ureters: Left renal cortical cystic lesions with benign appearance, largest approximately 1.7 cm in the posterior mid left kidney coronal series 601, image 50, smaller lesion of 9 mm inferolateral to this coronal image 47, too small to accurately characterize. No suspicious masses. No hydronephrosis, hydroureter, or obstructing calcified stones. Stomach and bowel: Slight fatty thickening of multiple colon loops which may be a constitutional variant or less likely as the sequela of inflammatory bowel disease. No acute findings in the colon.There is no evidence of intestinal perforation or obstruction. There are scattered small intestinal air-fluid levels, but no significantly dilated loops or mucosal thickening, this is probably slight ileus or enteritis. There is perigastric soft tissue edema, and mild fluid, likely related to the pancreatitis, there may be associated secondary gastritis. No gastric perforation or extraluminal gas bubbles. Appendix: No findings of appendicitis. Intraperitoneal space: Trace free fluid.There is no free intraperitoneal air. Vasculature: The vasculature demonstrates scattered mild atherosclerotic calcification. There is no aortic aneurysm. Some coronary artery calcifications noted in the chest. No splenic artery aneurysm. Patent enhancing portal vein Lymph nodes: No significantly enlarged lymph nodes by short axis criteria. Urinary bladder: The bladder is normal. Reproductive: The prostate and seminal vesicles are normal. Bones/joints: Spinal degenerative changes, disc disease and spondylosis most severe L5-S1. Mild T8 anterior
[2021-02-17 15:28] LABS: Chloride 97 mmol/L (98-107); Potassium 4.1 mmoL/L (3.5-5.1); Sodium 132 mmol/L (136-145)
[2021-02-17 15:31] LABS: Alanine Aminotransferase 26 U/L (12-78); Alkaline Phosphatase 685 U/L (38-126); Amylase 68 U/L (30-110); Anion Gap 13.1 mEq/L (5-15); Aspartate Amino Transferase 72 U/L (17-59); Basophils % 0.3 % (0.1-2.0); Bilirubin,Total 1.1 mg/dl (0.2-1.3); Blood Urea Nitrogen 2 mg/dl (9-20); Calcium 8.2 mg/dl (8.4-10.2); Carbon Dioxide 26 mmol/L (22.0-30.0); Creatinine Clearance Estimated 150 mL/min (50-200); Eosinophils # 0.1 K/mm3 (0.0-0.4); Estimated Glomerular Filt Rate 173 ml/min (>60); GFR (African American) 209 ML/MIN (>60); Glucose 138 mg/dl (74-100); Hematocrit 37.5 % (42.0-52.0); Hemoglobin 12.2 g/dL (14.1-18.0); Lipase 577 U/L (23-300); Lymphocytes # 0.9 K/mm3 (0.7-4.5); Lymphocytes % 8.7 % (10-50); Mean Corpuscular HGB Conc 32.5 g/dL (31.8-35.4); Mean Corpuscular Hemoglobin 37.6 pg (27.0-31.2); Mean Corpuscular Volume 115.6 fl (80-94); Mean Platelet Volume 9.1 fl (7.4-10.4); Monocytes # 0.6 K/mm3 (0.1-1.0); Monocytes % 5.5 % (1.7-9.3); Neutrophils # 8.5 K/mm3 (1.8-7.8); Neutrophils % 84.5 % (37.0-80.0); Platelet Count 219 K/mm3 (142-424); Red Blood Count 3.24 M/mm3 (4.60-6.20); Red Cell Distribution Width 13.7 % (11.5-17.5)
[2021-02-17 15:32] LABS: Globulin 3.1 g/dL (1.3-3.2); Total Protein,Serum 6.1 g/dl (6.3-8.2)
[2021-02-17 15:34] LABS: Ethyl Alcohol < 10 mg/dl (0-10)
[2021-02-17 15:43] LABS: Microscopic, Urine URINE MICROSCOPIC (MICROSCOPIC)
[2021-02-17 15:50] LABS: Appearance,Urine CLEAR (Clear); Blood, Urine Negative (Negative); Color,Urine YELLOW (Yellow); Glucose,Urine (UA) Negative (Negative); Ketones,Urine TRACE (Negative); Leukocyte Esterase,Urine Negative (Negative); Nitrate,Urine Negative (Negative); PH,Urine 7.5 (5.0-8.5); Protein,Urine Negative (Negative)
[2021-02-17 15:52] LABS: Bilirubin,Urine 1+ (Negative)
[2021-02-17 15:53] LABS: Troponin I < 0.01 ng/ml (0.00-0.034)
[2021-02-17 16:02] LABS: Bacteria,Urine 1+ /lpf
[2021-02-17 16:03] LABS: Amorphous Sediment,Urine Trace /lpf
--- NOTE | 2021-02-17 17:00 | PC.NURSE ---
House aware of admission
[2021-02-17 17:20] LABS: Coronavirus 19, PCR Not Detected (NotDetected); Influenza A, PCR Not Detected (NotDetected); Influenza B, PCR Not Detected (NotDetected)
--- NOTE | 2021-02-17 18:03 | PC.NURSE ---
Waiting on CT results
--- NOTE | 2021-02-17 18:06 | PC.NURSE ---
waiting on Ct results before calling report.
--- NOTE | 2021-02-17 19:11 | PC.NURSE ---
Lab at bedside. Dr. Regan paged at this time
--- NOTE | 2021-02-17 19:26 | PC.NURSE ---
Unable to obtain correct medications from patient. Attempted to verify names with patient and he tells me he doesn't know what he takes or the names of any of them. Advised MD correct medication list was unobtainable at this time.
--- NOTE | 2021-02-17 19:36 | PC.NURSE ---
patient up to floor via wheelchair
[2021-02-17 19:54] LABS: Troponin I < 0.01 ng/ml (0.00-0.034)
[2021-02-17 20:04] LABS: Magnesium 1.8 mg/dl (1.6-2.3); Phosphorous 3.3 mg/dl (2.5-4.5)
[2021-02-17 20:05] LABS: Activated Partial Thrombo Time 31.6 seconds (22.8-30.6); INR 1.06 (0.9-1.1); Prothrombin Time 11.9 seconds (10.1-12.5)
[2021-02-17 20:31] LABS: Amphetamine/Metha Screen,Urine Negative ng/ml (<1000); Barbiturates Screen,Urine Negative ng/ml (<200)
[2021-02-17 20:32] LABS: Benzodiazepines Screen,Urine Negative ng/ml (<200); Cannabinoid Screen,Urine Negative ng/ml (<50)
[2021-02-17 20:33] LABS: Cocaine Screen,Urine Negative ng/ml (<300)
[2021-02-17 20:34] LABS: Methadone Screen,Urine Negative ng/ml (<300)
[2021-02-17 20:35] LABS: Opiate Screen,Urine Negative ng/ml (<300); Phencyclidine Screen,Urine Negative ng/ml (<25)
[2021-02-18 04:00] VITALS: BP 130/75; PULSE 88; RESP 16; TEMP 36.9; O2SAT 98
[2021-02-18 05:16] VITALS: BMI 22.3
--- NOTE | 2021-02-18 07:28 | PC.NURSE ---
Shift summary. Pt c/o abdominal pain x2 and slight headache t/o shift. Tx per JUL. Pt able to use urinal independently. VSS. Seizure pads in place for safety.
[2021-02-18 08:00] VITALS: BP 123/64; PULSE 82; RESP 16; TEMP 36.8; O2SAT 96; O2SAT 97
[2021-02-18 08:01] LABS: Lipase 252 U/L (23-300)
--- NOTE | 2021-02-18 09:04 | HMH.PHAVTE ---
[facility] Pharmacy VTE Monitoring - Patient Demographics Admission date: 02/17/21 Report Date: 02/18/21 Time: 09:04 Allergies/Adverse Reactions: Patient Allergies cephalexin [From Keflex] Allergy (Mild, Verified 02/13/21 13:10) Hives diphenhydramine [DIPHENHYDRAMINE] Allergy (Unknown, Verified 02/13/21 13:10) sulfamethoxazole [From BACTRIM] Allergy (Unknown, Verified 02/13/21 13:10) trimethoprim [From BACTRIM] Allergy (Unknown, Verified 02/13/21 13:10) Height: 1.73 m Weight: 66.735 kg Patient Problems: Current Active Problems (Last Updated 11/02/19 @ 14:48 by Richard Edgar MD) Alcoholic pancreatitis (Acute) Alcoholism (Acute) - VTE Risk Labs: VTE Related Lab Results Hgb 12.2 g/dL (14.1-18.0) L 02/17/21 15:02 Hct 37.5 % (42.0-52.0) L 02/17/21 15:02 Plt Count 219 K/mm3 (142-424) 02/17/21 15:02 PT 11.9 seconds (10.1-12.5) 02/17/21 15:02 INR 1.06 (0.9-1.1) 02/17/21 15:02 APTT 31.6 seconds (22.8-30.6) H 02/17/21 15:02 BUN 2 mg/dl (9-20) L 02/17/21 15:02 Creatinine 0.50 mg/dl (0.66-1.25) L 02/17/21 15:02 Estimated Creat Clear 150 mL/min (50-200) 02/17/21 15:02 Was VTE Risk Assessment Performed: No Clinical Trial Participant: No - Prophylaxis VTE Prophylaxis Ordered?: Yes Types of VTE Prophylaxis: TEDS Knee High Location of Applied Device: Bilateral Lower Extremeties
--- NOTE | 2021-02-18 09:05 | HMH.PHAINT ---
MEDICATION RECONCILIATION COMPLETE USING LIST FROM MD OFFICE AND EXTERNAL PHARMACY FILL HISTORY.
--- NOTE | 2021-02-18 10:09 | HMH.HP ---
*Admission Date: 02/17/21 *Chief complaint: abd pain *History of present illness: this patient presented to the ed with abd pain -pt epigastric pain going up into his chest. States pain has been present for a month, but keeps getting worse. He says Dr. Edgar has told him that his liver and pancreas are inflamed. He says he takes dicyclomine. It does not seem to be helping. He is an alcoholic. He says he drinks all day every day. He drinks a 12 pack a day. He has had 2 beers today. He has vomiting associated with his pain, he says he last vomited this morning. Has intermittent diarrhea without blood. Denies fever. States he last saw Dr. Edgar 1 day last week. pt had abn ct scan in the ed - eviewed emergency department note from visit on 02/05/2021 for same complaint. Reviewed most recent note from outpatient primary care provider visit on 02/13/2021. Also noted that patient has had CT scans from outside hospitals imported into his results. Most recent result was from 01/15/2021 from the [facility]. It showed acute upon chronic pancreatitis with 3.1 and 1.7 cm pseudocyst. Mural thickening involving cecum and proximal ascending colon most compatible with infectious/inflammatory colitis. Profound fatty infiltration of liver with mild hepatomegaly. Stable lytic lesion in the left iliac wing likely reflecting metastatic disease. pt was admitted at this time for iv meds and fluids H History I have reviewed the patient's past medical history: Yes Medical History: Reports:: Anxiety, Cancer, Chronic Obstructive Pulmonary Disease (COPD), Depression, Gastroesophageal Reflux Disease(GERD), Hepatitis, MRSA, Seizures Denies:: Diabetes Mellitus Type 1, Diabetes Mellitus Type 2, Internal Pacemaker *Have you ever received a pneumonia vaccine?: No *Have you received a flu vaccine this season?: No Other Medical History: Denies: Blood Transfusion Reaction Other Surgeries: Yes: No Previous Surgery, Cholecystectomy, Other. No: Pacemaker Amputation: No Fractures: No - *Social History Smoking Status: Current every day smoker Tobacco Type: cigarettes # Packs/Day (cigarettes): 3 Alcohol Intake: current Alcohol Intake Frequency:: 3 or more drinks per day Substance Use Type: denies use *Occupational Status:: unemployed Housing: house Household Members: family *Travel in the last 8 weeks: None - Psychiatric History Pschychiatric History:: Reports:: Anxiety, Depression Family Hx:: Bleeding Disorder, Cancer, Alcoholism Review of Systems - Review of Systems Review of systems:: pertinent systems reviewed and negative unless documented below - Constitutional Denies fever(s) - Eyes Denies change in vision - ENT Denies sore throat - *Cardiovascular Denies chest pain at rest - *Respiratory Denies cough - *Gastrointestinal Reports abdominal pain, Reports nausea, Reports vomiting, Denies black, tarry stools - *Genitourinary Denies blood in urine - *Musculoskeletal Denies joint pain - Integumentary/Breasts Denies rash - *Neurologic Denies headache(s), Denies seizure-like activity Meds Home Medications Medication Instructions Recorded Confirmed Type buspirone 15 mg tablet 15 mg PO TID tab 11/02/19 02/17/21 History Leucovorin/Pyridox/Mecobalamin 1 cap PO DAILY 11/15/19 02/18/21 History [Folinic-Plus Caplet] albuterol sulfate 90 mcg/actuation 1 inh INHALATION Q4-6H PRN 11/25/19 02/18/21 History breath activated powder inhaler,sensor potassium chloride 10 mEq 10 meq PO DAILY #90 cap 02/24/20 02/17/21 Rx capsule,extended release ondansetron HCl 4 mg tablet 4 mg PO Q8H PRN #60 tab 01/30/21 02/17/21 Rx levetiracetam 500 mg tablet 500 mg PO BID #60 tab 02/13/21 02/17/21 Rx oxazepam 15 mg capsule 15 mg PO BID PRN #30 cap 02/13/21 02/17/21 Rx tramadol 50 mg tablet 50 mg PO BID PRN #30 tab 02/13/21 02/17/21 Rx thiamine mononitrate (vit B1) 100 100 mg PO DAILY #90 tab 02/15/21 02/17/21 Rx mg tablet Pantoprazo
[2021-02-18 12:00] VITALS: BP 137/73; PULSE 72; RESP 22; TEMP 37; O2SAT 98
[2021-02-18 15:24] VITALS: BP 148/72; PULSE 80; RESP 20; TEMP 36.9; O2SAT 98
[2021-02-18 20:00] VITALS: BP 140/64; PULSE 62; RESP 17; TEMP 36.9; O2SAT 94; O2SAT 96
[2021-02-19] VITALS: BP 136/74; PULSE 70; RESP 17; TEMP 36.9; O2SAT 94
[2021-02-19 04:00] VITALS: BP 128/72; PULSE 85; RESP 17; TEMP 36.6; O2SAT 98
[2021-02-19 05:00] VITALS: BMI 22.3
--- NOTE | 2021-02-19 06:57 | PC.NURSE ---
Patient has had an uneventful night this shift; No s/s of acute distress noted this shift, call light within reach, bed at lowest level for safety; will continue to monitor.
[2021-02-19 07:06] LABS: Basophils % 0.5 % (0.1-2.0); Eosinophils # 0.2 K/mm3 (0.0-0.4); Eosinophils % 3.6 % (0.1-12.0); Hematocrit 32.5 % (42.0-52.0); Hemoglobin 10.8 g/dL (14.1-18.0); Lymphocytes % 14.3 % (10-50); Mean Corpuscular Hemoglobin 38.2 pg (27.0-31.2); Mean Corpuscular Volume 115.8 fl (80-94); Mean Platelet Volume 8.5 fl (7.4-10.4); Monocytes # 0.3 K/mm3 (0.1-1.0); Monocytes % 4.1 % (1.7-9.3); Neutrophils # 5.3 K/mm3 (1.8-7.8); Neutrophils % 77.5 % (37.0-80.0); Platelet Count 178 K/mm3 (142-424); Red Blood Count 2.81 M/mm3 (4.60-6.20); Red Cell Distribution Width 13.4 % (11.5-17.5); White Blood Count 6.8 K/mm3 (4.8-10.8)
[2021-02-19 07:15] LABS: Chloride 104 mmol/L (98-107); Potassium 3.8 mmoL/L (3.5-5.1); Sodium 132 mmol/L (136-145)
[2021-02-19 07:18] LABS: Amylase 45 U/L (30-110); Anion Gap 10.8 mEq/L (5-15); Blood Urea Nitrogen 4 mg/dl (9-20); Carbon Dioxide 21 mmol/L (22.0-30.0); Creatinine Clearance Estimated 197 mL/min (50-200); Estimated Glomerular Filt Rate 223 ml/min (>60); GFR (African American) 270 ML/MIN (>60); Glucose 80 mg/dl (74-100); Lipase 122 U/L (23-300)
[2021-02-19 08:00] VITALS: BP 133/74; PULSE 86; RESP 16; TEMP 36.8; O2SAT 99
--- NOTE | 2021-02-19 09:20 | HMH.DCSUM ---
General - General Admission date:: 02/17/21 Discharge date: 02/19/21 HPI HPI: this patient presented to the ed with abd pain -pt epigastric pain going up into his chest. States pain has been present for a month, but keeps getting worse. He says Dr. Edgar has told him that his liver and pancreas are inflamed. He says he takes dicyclomine. It does not seem to be helping. He is an alcoholic. He says he drinks all day every day. He drinks a 12 pack a day. He has had 2 beers today. He has vomiting associated with his pain, he says he last vomited this morning. Has intermittent diarrhea without blood. Denies fever. States he last saw Dr. Edgar 1 day last week. pt had abn ct scan in the ed - eviewed emergency department note from visit on 02/05/2021 for same complaint. Reviewed most recent note from outpatient primary care provider visit on 02/13/2021. Also noted that patient has had CT scans from outside hospitals imported into his results. Most recent result was from 01/15/2021 from the [facility]. It showed acute upon chronic pancreatitis with 3.1 and 1.7 cm pseudocyst. Mural thickening involving cecum and proximal ascending colon most compatible with infectious/inflammatory colitis. Profound fatty infiltration of liver with mild hepatomegaly. Stable lytic lesion in the left iliac wing likely reflecting metastatic disease. pt was admitted at this time for iv meds and fluids Hospital Course Hospital Course: Laboratory Tests 02/17/21 02/17/21 02/17/21 14:49 14:49 15:02 WBC 10.0 RBC 3.24 L Hgb 12.2 L Hct 37.5 L MCV 115.6 H MCH 37.6 H MCHC 32.5 RDW 13.7 Plt Count 219 MPV 9.1 Neut % (Auto) 84.5 H Lymph % (Auto) 8.7 L [place] % (Auto) 5.5 Eos % (Auto) 1.0 Baso % (Auto) 0.3 Neut # (Auto) 8.5 H Lymph # (Auto) 0.9 [place] # (Auto) 0.6 Eos # (Auto) 0.1 Baso # (Auto) 0.0 PT INR APTT Sodium Potassium Chloride Carbon Dioxide Anion Gap BUN Creatinine Estimated Creat Clear Estimated GFR Est GFR ( Amer) Glucose Calcium Phosphorus Magnesium Total Bilirubin AST ALT Alkaline Phosphatase Troponin I Total Protein Albumin Globulin Albumin/Globulin Ratio Amylase Lipase Urine Color Yellow Urine Appearance Clear Urine pH 7.5 Ur Specific [place] 1.010 Urine Protein Negative Urine Glucose (UA) Negative Urine Ketones Trace Urine Blood Negative Urine Nitrate Negative Urine Bilirubin 1+ A Urine Urobilinogen 1.0 Ur Leukocyte Esterase Negative Urine RBC None Urine WBC None Ur Squamous Epith Cells 5-10 Amorphous Sediment Trace Urine Bacteria 1+ Urine Opiates Screen Negative Urine Methadone Screen Negative Ur Barbituates Screen Negative Ur Phencyclidine Scrn Negative Ur Amphetamines Screen Negative U Benzodiazepines Scrn Negative Urine Cocaine Screen Negative U Marijuana (THC) Screen Negative Plasma/Serum Alcohol SARS-CoV-2 (PCR) Influenza A Untype (PCR) Influenza Type B (PCR) 02/17/21 02/17/21 02/17/21 15:02 15:02 15:02 WBC RBC Hgb Hct MCV MCH MCHC RDW Plt Count MPV Neut % (Auto) Lymph % (Auto) [place] % (Auto) Eos % (Auto) Baso % (Auto) Neut # (Auto) Lymph # (Auto) [place] # (Auto) Eos # (Auto) Baso # (Auto) PT INR APTT Sodium 132 L Potassium 4.1 Chloride 97 L Carbon Dioxide 26 Anion Gap 13.1 BUN 2 L Creatinine 0.50 L Estimated Creat Clear 150 Estimated GFR 173 Est GFR ( Amer) 209 Glucose 138 H Calcium 8.2 L Phosphorus Magnesium Total Bilirubin 1.1 AST 72 H ALT 26 Alkaline Phosphatase 685 H Troponin I < 0.01 Total Protein 6.1 L Albumin 3.0 L Globulin 3.1 Albumin/Globulin Ratio 1.0 L Amylase 68
--- NOTE | 2021-02-19 11:55 | HMH.PHAINT ---
medication discharge education complete. Pt expressed concern over carlineoger filling his oxazepam while he takes lorazepam. Pt hs been instructed to stop lorazepam while taking oxazepam and if eddier knows this and what it is for then it should be okay. Informed patient to call if any issues or tell the [facility] pharmacy to call us
[2021-02-19 12:00] VITALS: BP 137/69; PULSE 78; RESP 14; TEMP 36.7; O2SAT 98
== END 2021-02-19 12:45 | disposition home or self-care (01) | DRG 439 ==
LOC: ER 14:28 → 2ND 17:09
PROVIDERS: Nurse Practitioner Family; Admitting Provider Internal Medicine Adolescent Medicine; Emergency Provider Emergency Medicine; PCP Family Medicine; Visit Provider Family Medicine
DX: K85.20 Alcohol induced acute pancreatitis without necrosis or infection (principal); K86.3 Pseudocyst of pancreas; K56.7 Ileus, unspecified; K29.20 Alcoholic gastritis without bleeding; F10.20 Alcohol dependence, uncomplicated; F17.210 Nicotine dependence, cigarettes, uncomplicated; F41.9 Anxiety disorder, unspecified; F32.A Depression, unspecified; J44.9 Chronic obstructive pulmonary disease, unspecified; K21.9 Gastro-esophageal reflux disease without esophagitis
CPT/HCPCS: 36415; 74177; 80048; 80053; 80305; 81001; 82150; 83690; 83735; 84100; 84484; 85025; 85610; 85730; 93005; 96365; 96375; 99284; C9803; J2405; Q9967; U0003; U0005

== ENCOUNTER 2021-06-06 13:36 | Emergency (ER) | payer MEDICAID, SELFPAY ==
[2021-06-06 14:23] VITALS: PULSE 93; RESP 16; TEMP 37; O2SAT 98; BMI 21.2
--- NOTE | 2021-06-06 14:28 | CT_ITS ---
FINAL REPORT CLINICAL HISTORY: abdominal pain COMPARISON: February 17, 2021 FINDINGS: CT OF THE ABDOMEN AND PELVIS WITH CONTRAST Axial CT images of the abdomen and pelvis were obtained after the administration of intravenous contrast. Coronal reformatted images were also obtained and reviewed.This study was performed with techniques to keep radiation doses as low as reasonably achievable (ALARA). Individualized dose reduction techniques using automated exposure control or adjustment of mA and/or kV according to the patient's size were employed. Abdomen: There is mild scarring in the lung bases.. The heart is normal in size. There is a mild nodular contour of the liver that may represent cirrhosis. There has been cholecystectomy. There is no evidence of biliary ductal dilatation. The spleen is at the upper limits of normal measuring 12 cm. No adrenal mass is present. There is persistent stranding adjacent to the pancreas consistent with persistent pancreatitis. There is a complex fluid collection superior to the tail of the pancreas measuring 7.7 x 4.9 cm that previously measured 2.9 x 2.6 cm. This is consistent with interval enlargement of a presumed pseudocyst. There is significant wall thickening of the posterior stomach consistent with edema/inflammation. Left renal cysts are stable. There are multiple mildly distended bowel loops that may represent an ileus. There are presumed varices in the left abdomen. Pelvis: The appendix is not well-visualized. Mild urinary bladder wall thickening is likely inflammatory. No inflammatory process is seen. There is no evidence of mass or adenopathy. There are L5 pars defects. IMPRESSION: Interval enlargement of left abdomen fluid collection consistent with interval enlargement of a presumed pseudocyst. Persistent pancreatitis. Significant posterior gastric wall thickening/edema. Cirrhosis with upper abdomen varices. Reviewed, Interpreted and Dictated by Parviz Correa III, MD Transcribed by Carson Hernandez Authenticated by Parviz Correa III, MD on 06/06/2021 03:59:23 PM [facility]
--- NOTE | 2021-06-06 14:28 | HMH.EDGENADL ---
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 Take antibiotic as prescribed. Recommend you stop drinking, stay away from fatty foods as this can worsen inflammation of the pancreas. Prescriptions: Cefdinir [Omnicef 300mg Capsule] 300 mg PO BID 10 Days #20 cap Transmission Status: Received by SADIE GARCIA [facility] Referrals: Richard Edgar MD [Primary Care Provider] - - Critical Care Critical Care Time: No Attestation: On 06/06/21, the high probability of a clinically significant, sudden or life threatening deterioration of the following system(s) required my full and direct attention, intervention and personal management. The time I documented below is in addition to time spent performing reported procedures but includes the following listed in this critical care notation. Medical Decision Making - Medical Records Medical records reviewed: Yes: I reviewed the patient's medical records. - Medhat Inquiry Pt receiving controlled substance: No Vital Signs: 06/06/21 14:23 06/06/21 16:49 Temperature 98.6 F 98.2 F Temperature Source Oral Oral Pulse Rate 80 Pulse Rate [Left Radial] 93 H Respiratory Rate 16 17 Blood Pressure 128/74 02 Sat by Pulse Oximetry 98 Oxygen Delivery Method Room Air Room Air - Lab Data Lab results reviewed: Yes: I reviewed the patient's lab results. Lab Results 06/06/21 14:33: WBC 8.0, RBC 4.29 L, Hgb 14.3, Hct 43.4, MCV 101.2 H, MCH 33.5 H, MCHC 33.1, RDW 12.8, Plt Count 188, MPV 9.3, Neut % (Auto) 74.7, Lymph % (Auto) 15.5, [place] % (Auto) 8.5, Eos % (Auto) 0.6, Baso % (Auto) 0.7, Neut # (Auto) 6.0, Lymph # (Auto) 1.2, [place] # (Auto) 0.7, Eos # (Auto) 0.1, Baso # (Auto) 0.1 06/06/21 14:33: Sodium 131 L, Potassium 4.0, Chloride 94 L, Carbon Dioxide 31 H, Anion Gap 10.0, BUN 4 L, Creatinine 0.60 L, Estimated Creat Clear 123, Estimated GFR 139, Est GFR ( Amer) 169, Glucose 122 H, Calcium 9.3, Total Bilirubin 0.7, AST 29, ALT 22, Alkaline Phosphatase 147 H, Total Protein 7.1, Albumin 4.1, Globulin 3.0, Albumin/Globulin Ratio 1.4, Lipase 98 06/06/21 14:43: Urine Color Yellow, Urine Appearance Clear, Urine pH 8.5, Ur Specific [place] 1.015, Urine Protein Negative, Urine Glucose (UA) Negative, Urine Ketones Trace, Urine Blood Negative, Urine Nitrate Negative, Urine Bilirubin Negative, Urine Urobilinogen 0.2, Ur Leukocyte Esterase Negative, Urine RBC None, Urine WBC 10-20, Ur Squamous Epith Cells 3-5, Urine Bacteria 3+, Urine Yeast 1+ Result diagrams: 06/06/21 14:33 06/06/21 14:33 Orders (Tests/Meds): ED MEDICATIONS Discontinued Medications Generic Name Dose Route Start Last Admin Trade Name Papito PRN Reason Stop Dose Admin Lactated Ringer's 1,000 mls @ 999 mls/hr 06/06/21 14:30 06/06/21 14:38 Lactated Ringer's 1000 Ml Bag IV 06/06/21 15:30 999 mls/hr .Q1H1M BUZZ Administration Iopamidol 75 ml 06/06/21 15:26 06/06/21 15:27 Iopamidol-370 (76%);100ml Bottle IV 06/06/21 15:27 75 ml ONCE ONE Administration Morphine Sulfate 4 mg 06/06/21 14:30 06/06/21 14:38 Morphine 4mg/Ml Syringe IV 06/06/21 14:31 4 mg ONCE ONE Administration Ondansetron HCl 4 mg 06/06/21 14:30 06/06/21 14:38 Ondansetron 4mg/2ml Vial IV 06/06/21 14:31 4 mg ONCE ONE Administration Sodium Chloride 10 ml 06/06/21 15:26 06/06/21 15:27 Sodium Chloride 0.9% 10ml Syr (Rad Only) IV 06/06/21 15:27 10 ml ONCE ONE Administration ORDERS Category Date Time Status Urine Culture St
[2021-06-06 14:54] LABS: Microscopic, Urine URINE MICROSCOPIC (MICROSCOPIC)
[2021-06-06 14:54] LABS: Basophils # 0.1 K/mm3 (0-0.2); Basophils % 0.7 % (0.1-2.0); Eosinophils # 0.1 K/mm3 (0.0-0.4); Eosinophils % 0.6 % (0.1-12.0); Hematocrit 43.4 % (42.0-52.0); Hemoglobin 14.3 g/dL (14.1-18.0); Lymphocytes # 1.2 K/mm3 (0.7-4.5); Lymphocytes % 15.5 % (10-50); Mean Corpuscular HGB Conc 33.1 g/dL (31.8-35.4); Mean Corpuscular Hemoglobin 33.5 pg (27.0-31.2); Mean Corpuscular Volume 101.2 fl (80-94); Mean Platelet Volume 9.3 fl (7.4-10.4); Monocytes # 0.7 K/mm3 (0.1-1.0); Monocytes % 8.5 % (1.7-9.3); Neutrophils % 74.7 % (37.0-80.0); Platelet Count 188 K/mm3 (142-424); Red Blood Count 4.29 M/mm3 (4.60-6.20); Red Cell Distribution Width 12.8 % (11.5-17.5)
[2021-06-06 14:56] LABS: Alanine Aminotransferase 22 U/L (12-78); Albumin Level 4.1 g/dl (3.5-5.0); Albumin/Globulin Ratio 1.4 (1.1-1.8); Alkaline Phosphatase 147 U/L (38-126); Aspartate Amino Transferase 29 U/L (17-59); Bilirubin,Total 0.7 mg/dl (0.2-1.3); Blood Urea Nitrogen 4 mg/dl (9-20); Calcium 9.3 mg/dl (8.4-10.2); Carbon Dioxide 31 mmol/L (22.0-30.0); Chloride 94 mmol/L (98-107); Creatinine Clearance Estimated 123 mL/min (50-200); Estimated Glomerular Filt Rate 139 ml/min (>60); GFR (African American) 169 ML/MIN (>60); Glucose 122 mg/dl (74-100); Lipase 98 U/L (23-300); Sodium 131 mmol/L (136-145); Total Protein,Serum 7.1 g/dl (6.3-8.2)
[2021-06-06 15:00] LABS: Appearance,Urine CLEAR (Clear); Bilirubin,Urine Negative (Negative); Blood, Urine Negative (Negative); Color,Urine YELLOW (Yellow); Glucose,Urine (UA) Negative (Negative); Ketones,Urine TRACE (Negative); Leukocyte Esterase,Urine Negative (Negative); Nitrate,Urine Negative (Negative); PH,Urine 8.5 (5.0-8.5); Protein,Urine Negative (Negative); Specific Gravity, Urine 1.015 (1.005-1.030); Urobilinogen,Urine 0.2 EU/dl (0.2)
[2021-06-06 15:35] LABS: Yeast,Urine 1+ /lpf
[2021-06-06 15:36] LABS: Bacteria,Urine 3+ /lpf
[2021-06-06 16:49] VITALS: BP 128/74; PULSE 80; RESP 17; TEMP 36.8; O2SAT 97
== END 2021-06-06 16:50 | disposition home or self-care (01) ==
PROVIDERS: Emergency Provider Emergency Medicine; PCP Family Medicine
DX: K85.20 Alcohol induced acute pancreatitis without necrosis or infection (principal); N30.90 Cystitis, unspecified without hematuria; K86.3 Pseudocyst of pancreas; F41.8 Other specified anxiety disorders; K21.9 Gastro-esophageal reflux disease without esophagitis
CPT/HCPCS: 74177; 80053; 81001; 83690; 85025; 87086; 87088; 87186; 96365; 96375; 99283; J2405; Q9967

== ENCOUNTER → 2021-07-30 17:08 | Outpatient (CLI) | payer MEDICAID, SELFPAY ==
[2021-07-30 20:06] LABS: Basophils # 0.1 K/mm3 (0-0.2); Eosinophils # 0.2 K/mm3 (0.0-0.4); Eosinophils % 2.1 % (0.1-12.0); Hematocrit 44.9 % (42.0-52.0); Hemoglobin 14.8 g/dL (14.1-18.0); Lymphocytes # 2.2 K/mm3 (0.7-4.5); Lymphocytes % 22.1 % (10-50); Mean Corpuscular HGB Conc 32.9 g/dL (31.8-35.4); Mean Corpuscular Hemoglobin 32.6 pg (27.0-31.2); Mean Corpuscular Volume 99.1 fl (80-94); Mean Platelet Volume 9.6 fl (7.4-10.4); Monocytes # 0.7 K/mm3 (0.1-1.0); Monocytes % 6.5 % (1.7-9.3); Neutrophils # 6.8 K/mm3 (1.8-7.8); Neutrophils % 68.3 % (37.0-80.0); Platelet Count 380 K/mm3 (142-424); Red Blood Count 4.53 M/mm3 (4.60-6.20); Red Cell Distribution Width 14.1 % (11.5-17.5)
[2021-07-30 21:04] LABS: Alanine Aminotransferase 15 U/L (12-78); Albumin Level 4.6 g/dl (3.5-5.0); Albumin/Globulin Ratio 1.5 (1.1-1.8); Alkaline Phosphatase 168 U/L (38-126); Anion Gap 12.5 mEq/L (5-15); Aspartate Amino Transferase 29 U/L (17-59); Bilirubin,Total 0.7 mg/dl (0.2-1.3); Blood Urea Nitrogen 6 mg/dl (9-20); Calcium 9.5 mg/dl (8.4-10.2); Carbon Dioxide 26 mmol/L (22.0-30.0); Chloride 101 mmol/L (98-107); Estimated Glomerular Filt Rate 139 ml/min (>60); GFR (African American) 169 ML/MIN (>60); Glucose 99 mg/dl (74-100); Lipase 484 U/L (23-300); Potassium 4.5 mmoL/L (3.5-5.1); Sodium 135 mmol/L (136-145); Total Protein,Serum 7.6 g/dl (6.3-8.2)
== END ==
PROVIDERS: Visit Provider Family Medicine
DX: R11.2 Nausea with vomiting, unspecified (principal)
CPT/HCPCS: 80053; 83690; 84443; 85025

== ENCOUNTER → 2021-08-07 07:10 | Outpatient (CLI) | payer MEDICAID, SELFPAY ==
--- NOTE | 2021-08-07 07:11 | CT_ITS ---
FINAL REPORT TECHNIQUE: Axial images through the abdomen was performed by computed tomography. This study was performed with techniques to keep radiation doses as low as reasonably achievable (ALARA). Individualized dose reduction techniques using automated exposure control or adjustment of mA and/or kV according to the patient's size were employed. CLINICAL HISTORY: gastric thickening COMPARISON: 06/06/2021 FINDINGS: The liver parenchyma is homogeneous. The gallbladder is absent. The adrenals are normal. There are calcified granulomas within the spleen. There is a cystic structure within the pancreatic bed measuring 5.5 x 3.3 cm which is decreased in size since prior. There is surrounding inflammation. There are small scattered calcifications in the pancreatic head and bed consistent with chronic pancreatitis. There is a benign-appearing cyst in left kidney measuring 1.5 cm. The aorta is normal in caliber. There is no free fluid or adenopathy. There are advanced changes of degenerative disc disease in the lower lumbar spine. IMPRESSION: Cystic structure within the pancreatic bed, probably due to resolving pseudocyst. Mild changes of chronic pancreatitis. Reviewed, Interpreted and Dictated by Glenn Jones MD Transcribed by Kathleen Forbes Authenticated by Glenn Jones MD on 08/07/2021 11:26:[address] [facility]
--- NOTE | 2021-08-07 07:13 | CT_ITS ---
FINAL REPORT TECHNIQUE: Axial images were obtained through the chest without contrast. This study was performed with techniques to keep radiation doses as low as reasonably achievable (ALARA). Individualized dose reduction techniques using automated exposure control or adjustment of mA and/or kV according to the patient's size were employed. CLINICAL HISTORY: history of lung cancer COMPARISON: 11/15/2019 FINDINGS: There is a linear pleural based density in the anterior margin of the right major fissure measuring 1.4 x 0.5 cm which is stable and likely postinflammatory. There are minimal changes of obstructive airways disease. The heart size is normal. There is no pericardial or pleural effusion. Limited images of the upper abdomen are unremarkable. IMPRESSION: Stable pleural-based density in the anterior margin of the right major fissure, likely postinflammatory. Reviewed, Interpreted and Dictated by Glenn Jones MD Transcribed by Kathleen Forbes Authenticated by Glenn Jones MD on 08/07/2021 11:26:52 AM [facility]
== END ==
PROVIDERS: PCP Family Medicine; Visit Provider Family Medicine
DX: K31.89 Other diseases of stomach and duodenum (principal); Z85.118 Personal history of other malignant neoplasm of bronchus and lung
CPT/HCPCS: 71250; 74150

== ENCOUNTER 2021-08-11 17:58 | Observation (INO) | payer MEDICAID, SELFPAY ==
[2021-08-11] VITALS (9 sets, daily range): BP systolic 114–144; BP diastolic 63–90; PULSE 81–112; RESP 16–18; TEMP 36.6–36.9; O2SAT 96–100; BMI 19.8; BMI 20.5
--- NOTE | 2021-08-11 18:07 | PC.NURSE ---
pt is sitting up on the side of the bed hooked up to vital signs and nurse is bedside. call light was given to the patient.
--- NOTE | 2021-08-11 18:11 | PC.NURSE ---
urine was collected and sent to the lab.
[2021-08-11 18:23] LABS: Microscopic, Urine URINE MICROSCOPIC (MICROSCOPIC)
[2021-08-11 18:36] LABS: Appearance,Urine CLEAR (Clear); Bilirubin,Urine Negative (Negative); Blood, Urine Negative (Negative); Color,Urine YELLOW (Yellow); Glucose,Urine (UA) Negative (Negative); Ketones,Urine 1+ (Negative); Leukocyte Esterase,Urine Negative (Negative); Nitrate,Urine Negative (Negative); Protein,Urine Negative (Negative); Urobilinogen,Urine 0.2 EU/dl (0.2)
[2021-08-11 18:40] LABS: Amorphous Sediment,Urine Trace /lpf; WBC,Urine Occasional #/hpf (0-3)
--- NOTE | 2021-08-11 18:48 | HMH.EDGENADL ---
ED Disposition Clinical Impression: Dehydration Pancreatitis Qualifiers: Chronicity: acute Pancreatitis type: idiopathic Acute pancreatitis complication: no infection or necrosis Qualified Code(s): K85.00 - Idiopathic acute pancreatitis without necrosis or infection GI bleed Qualifiers: GI bleed type/associated pathology: unspecified gastrointestinal hemorrhage type Qualified Code(s): K92.2 - Gastrointestinal hemorrhage, unspecified Disposition: Admitted As Inpatient Condition on Discharge: Good Instructions: DI for Acute Abdominal Pain Referrals: Richard Edgar MD [Primary Care Provider] - - Critical Care Critical Care Time: No Attestation: On 08/11/21, the high probability of a clinically significant, sudden or life threatening deterioration of the following system(s) required my full and direct attention, intervention and personal management. The time I documented below is in addition to time spent performing reported procedures but includes the following listed in this critical care notation. Medical Decision Making - Medical Records Medical records reviewed: Yes: I reviewed the patient's medical records. - Medhat Inquiry Pt receiving controlled substance: No Vital Signs: 08/11/21 17:59 08/11/21 18:05 08/11/21 19:00 Temperature 98 F Temperature Source Oral Pulse Rate 96 H 99 H Pulse Rate [Radial] 112 H Respiratory Rate 18 16 Blood Pressure 144/90 H 114/79 Blood Pressure [Right Arm] 144/90 H Blood Pressure Mean 105 Blood Pressure Mean [Right Arm] 108 Blood Pressure Position [Right Arm] Sitting 02 Sat by Pulse Oximetry 98 99 98 Oxygen Delivery Method Room Air Room Air - Lab Data Lab Results 08/11/21 18:00: Urine Color Yellow, Urine Appearance Clear, Urine pH 8.0, Ur Specific [place] 1.020, Urine Protein Negative, Urine Glucose (UA) Negative, Urine Ketones 1+, Urine Blood Negative, Urine Nitrate Negative, Urine Bilirubin Negative, Urine Urobilinogen 0.2, Ur Leukocyte Esterase Negative, Urine WBC Occasional, Amorphous Sediment Trace 08/11/21 18:40: WBC 8.0, RBC 4.30 L, Hgb 13.6 L, Hct 43.4, MCV 101.0 H, MCH 31.6 H, MCHC 31.3 L, RDW 14.7, Plt Count 247, MPV 9.2, Neut % (Auto) 73.4, Lymph % (Auto) 17.6, [place] % (Auto) 5.1, Eos % (Auto) 3.2, Baso % (Auto) 0.7, Neut # (Auto) 5.9, Lymph # (Auto) 1.4, [place] # (Auto) 0.4, Eos # (Auto) 0.3, Baso # (Auto) 0.1 08/11/21 18:40: Sodium 135 L, Potassium 4.0, Chloride 101, Carbon Dioxide 27, Anion Gap 11.0, BUN 6 L, Creatinine 0.70, Estimated Creat Clear 98, Estimated GFR 117, Est GFR ( Amer) 141, Glucose 112 H, Calcium 8.9, Total Bilirubin 0.7, AST 30, ALT 15, Alkaline Phosphatase 126, Total Protein 6.9, Albumin 4.0, Globulin 2.9, Albumin/Globulin Ratio 1.4, Lipase 496 H 08/11/21 18:45: SARS-CoV-2 (PCR) Not detected, Influenza A Untype (PCR) Not detected, Influenza Type B (PCR) Not detected Result diagrams: 08/11/21 18:40 08/11/21 18:40 Orders (Tests/Meds): ED MEDICATIONS Generic Name Dose Route Start Last Admin Trade Name Freq PRN Reason Stop Dose Admin Lactated Ringer's 1,000 mls @ 999 mls/hr 08/11/21 18:45 08/11/21 18:59 Lactated Ringer's 1000 Ml Bag IV 08/11/21 19:45 999 mls/hr .Q1H1M BUZZ Administration Pantoprazole Sodium 80 mg/ 100 mls @ 100 mls/hr 08/11/21 19:42 Sodium Chloride IV 09/10/21 19:41 BID BUZZ Lactated Ringer's 1,000 mls @ 50 mls/hr 08/11/21 20:00 Lactated Ringer's 1000 Ml Bag IV 09/10/21 19:59 .Q20H BUZZ Pantoprazole Sodium 40 mg 08/11/21 21:00 Pantoprazole 40mg Vial IV 09/10/21 20:59 BID BUZZ Discontinued Medications Generic Name Dose Route Start Last Admin Trade Name Freq PRN Reason Stop Dose Admin Hydromorphone HCl 1 mg 08/11/21 18:53 08/11/21 18:59 Hydromorphone 2mg/Ml Syringe IV 08/11/21 18:54 1 mg ONCE ONE Administration Ondansetron HCl 4 mg 08/11/21 18:43 08/11/21 18:59 Ondansetron 4mg/2ml Vial IV 08/11/21 18:44 4 mg ONCE ONE Admin
[2021-08-11 18:53] LABS: Coronavirus 19, PCR Not Detected (NotDetected); Influenza A, PCR Not Detected (NotDetected); Influenza B, PCR Not Detected (NotDetected)
[2021-08-11 19:11] LABS: Basophils # 0.1 K/mm3 (0-0.2); Basophils % 0.7 % (0.1-2.0); Eosinophils # 0.3 K/mm3 (0.0-0.4); Eosinophils % 3.2 % (0.1-12.0); Hematocrit 43.4 % (42.0-52.0); Hemoglobin 13.6 g/dL (14.1-18.0); Lymphocytes # 1.4 K/mm3 (0.7-4.5); Lymphocytes % 17.6 % (10-50); Mean Corpuscular HGB Conc 31.3 g/dL (31.8-35.4); Mean Corpuscular Hemoglobin 31.6 pg (27.0-31.2); Mean Platelet Volume 9.2 fl (7.4-10.4); Monocytes # 0.4 K/mm3 (0.1-1.0); Monocytes % 5.1 % (1.7-9.3); Neutrophils # 5.9 K/mm3 (1.8-7.8); Neutrophils % 73.4 % (37.0-80.0); Platelet Count 247 K/mm3 (142-424); Red Cell Distribution Width 14.7 % (11.5-17.5)
[2021-08-11 19:16] LABS: Alanine Aminotransferase 15 U/L (12-78); Albumin/Globulin Ratio 1.4 (1.1-1.8); Alkaline Phosphatase 126 U/L (38-126); Aspartate Amino Transferase 30 U/L (17-59); Bilirubin,Total 0.7 mg/dl (0.2-1.3); Blood Urea Nitrogen 6 mg/dl (9-20); Calcium 8.9 mg/dl (8.4-10.2); Carbon Dioxide 27 mmol/L (22.0-30.0); Chloride 101 mmol/L (98-107); Creatinine Clearance Estimated 98 mL/min (50-200); Estimated Glomerular Filt Rate 117 ml/min (>60); GFR (African American) 141 ML/MIN (>60); Globulin 2.9 g/dL (1.3-3.2); Glucose 112 mg/dl (74-100); Lipase 496 U/L (23-300); Sodium 135 mmol/L (136-145); Total Protein,Serum 6.9 g/dl (6.3-8.2)
--- NOTE | 2021-08-11 19:26 | PC.NURSE ---
paged dr cantu at this time
--- NOTE | 2021-08-11 19:49 | PC.NURSE ---
ER talking to dr cantu
--- NOTE | 2021-08-11 19:54 | PC.NURSE ---
[facility] notified of admission for a bed
[2021-08-11 20:08] LABS: Cholesterol 153 mg/dl (140-200); HDL Cholesterol 38 mg/dl (40-60); Triglycerides 104 mg/dl (30-150); VLDL Cholesterol 21 mg/dL (0-40)
[2021-08-11 20:19] LABS: Direct LDL Cholesterol 77.89 mg/dL (100-129)
--- NOTE | 2021-08-11 21:43 | PC.NURSE ---
PT ARRIVED TO FLOOR VIA W/C FROM ED W/STAFF @ 1893
[2021-08-12] VITALS: BP 133/56; PULSE 80; RESP 17; TEMP 36.8; O2SAT 96
[2021-08-12 03:57] VITALS: BP 115/60; PULSE 74; RESP 16; TEMP 36.7; O2SAT 97
--- NOTE | 2021-08-12 04:51 | PC.NURSE ---
pt has rested well since arrival to floor, no complaints of pain or discomfort, no vomiting noted, vss, no change from previous assessment, seizure pads in place, CIWA= 4. will continue to monitor at this time
[2021-08-12 08:00] VITALS: BP 107/61; PULSE 65; RESP 18; TEMP 36.5; O2SAT 95
--- NOTE | 2021-08-12 08:13 | P.CONPHA_ITS ---
[facility] Pharmacy VTE Monitoring - Patient Demographics Admission date: 08/11/21 Report Date: 08/12/21 Time: 08:13 Allergies/Adverse Reactions: Patient Allergies cephalexin [From Keflex] Allergy (Mild, Verified 08/09/21 10:34) Hives sulfamethoxazole [From BACTRIM] Allergy (Unknown, Verified 08/09/21 10:34) trimethoprim [From BACTRIM] Allergy (Unknown, Verified 08/09/21 10:34) Height: 1.73 m Weight: 61.377 kg Patient Problems: Current Active Problems (Last Updated 11/02/19 @ 14:48 by Richard Edgar MD) GI bleed (Acute) Dehydration (Acute) Pancreatitis (Acute) - VTE Risk Labs: VTE Related Lab Results Hgb 13.6 g/dL (14.1-18.0) L 08/11/21 18:40 Hct 43.4 % (42.0-52.0) 08/11/21 18:40 Plt Count 247 K/mm3 (142-424) 08/11/21 18:40 BUN 6 mg/dl (9-20) L 08/11/21 18:40 Creatinine 0.70 mg/dl (0.66-1.25) 08/11/21 18:40 Estimated Creat Clear 98 mL/min (50-200) 08/11/21 18:40 Was VTE Risk Assessment Performed: Yes VTE Score: 6 VTE Risk Level: Moderate Risk - Prophylaxis VTE Prophylaxis Ordered?: Yes Types of VTE Prophylaxis: TEDS Knee High Location of Applied Device: Bilateral Lower Extremeties
--- NOTE | 2021-08-12 08:13 | HMH.PHAINT ---
MEDICATION RECONCILIATION COMPLETED ON PATIENT USING EXTERNAL FILL HISTORY FROM PHARMACY AND OFFICE VISIT FROM 07/30/21. -NIOKLE REYESD
--- NOTE | 2021-08-12 11:38 | HMH.HP ---
*Admission Date: 08/11/21 *Chief complaint: pancreatitis and upper gi bleed *History of present illness: Patient is a 56-year-old white male, known to me through the practice, who was admitted through the emergency room with nominal pain and coffee-ground emesis. Patient has a propensity for pancreatitis, most oftentimes alcohol induced, and has a history of pancreatic pseudocyst formation. He was seen in consultation at [facility] GI department. No procedural intervention has been performed, and radiographically the pseudocysts appear to be resolving. Patient has a history of lung cancer. He was treated with Keytruda. Patient had recent imaging of the chest and abdomen. A linear density in the fissure in the right lung was felt to be postinflammatory change. There was suggestion of pseudocyst resolution on CT abdomen. Patient relays mid epigastric tenderness with coffee-ground emesis over the last few days. Nursing staff has noted no significant instances of nature of blood loss. The repeat hemoglobin is pending. Lipase on admission was 500. Repeat lipase is pending. [facility] History Medical History: Reports:: Anxiety, Cancer, Chronic Obstructive Pulmonary Disease (COPD), Depression, Gastroesophageal Reflux Disease(GERD), Hepatitis, Seizures Denies:: Diabetes Mellitus Type 1, Diabetes Mellitus Type 2, Internal Pacemaker, MRSA *Have you ever received a pneumonia vaccine?: No *Have you received a flu vaccine this season?: No Other Medical History: Reports: Radiation Therapy, Sinus Problems. Denies: Blood Transfusion Reaction Other Surgeries: Yes: No Previous Surgery, Cholecystectomy, Other. No: Pacemaker Amputation: No Fractures: No - *Social History Last grade of school completed: GED Smoking Status: Current every day smoker Tobacco Type: cigarettes # Packs/Day (cigarettes): 2 Alcohol Intake: current Alcohol Intake Frequency:: a few times a week Substance Use Type: denies use *Occupational Status:: disabled Housing: house Household Members: family *Travel in the last 8 weeks: None - Psychiatric History Pschychiatric History:: Reports:: Anxiety, Depression Family Hx:: Asthma, Bleeding Disorder Review of Systems - Constitutional Reports anorexia, Reports lack of energy - Eyes Denies change in vision - ENT Denies abnormal hearing - *Cardiovascular Denies chest pain - *Respiratory Denies coughing up blood - *Gastrointestinal Reports abdominal pain, Reports coffee ground vomit, Reports nausea, Reports vomiting, Denies black, tarry stools - *Genitourinary Denies difficulty urinating - *Musculoskeletal Reports back pain - Integumentary/Breasts Denies yellowing of the skin - *Neurologic Reports weakness, Denies abnormal speech - Psychiatric Reports anxiety, Denies behavioral changes - Endocrine Denies cold intolerance, Denies excessive sweating - Hematologic/Lymphatic Denies easy bleeding, Denies easy bruising - Allergic/Immunologic Denies hives Meds Home Medications Medication Instructions Recorded Confirmed Type albuterol sulfate 90 mcg/actuation 1 puff IH Q4HP PRN 11/25/19 08/12/21 History breath activated powder inhaler,sensor levetiracetam 500 mg tablet 500 mg PO BID #60 tab 02/13/21 08/11/21 Rx Lipase/Protease/Amylase [Montse Fuentes 2 cap PO TIDWMEAL 02/18/21 08/11/21 History 36,000 Unit Capsule] prenat.vits,dank,zto-pknp-fcpbe 1 tab PO DAILY #90 tab 02/26/21 08/11/21 Rx thiamine mononitrate (vit B1) 100 100 mg PO DAILY #90 tab 02/26/21 08/11/21 Rx mg tablet potassium chloride 10 mEq 10 meq PO DAILY #90 cap 03/27/21 08/11/21 Rx capsule,extended release LORazepam [Lorazepam] 2 mg PO TIDP PRN 08/12/21 08/12/21 History Pantoprazole Sodium 40 mg PO DAILY 08/12/21 08/11/21 History Allergies Allergy/AdvReac Type Severity Reaction Status Date / Time cephalexin [From Keflex] Allergy Mild Hives Verified 08/09/21 10:34 sulfamethoxazole Allergy Unknown Versong
[2021-08-12 12:05] LABS: Basophils % 0.5 % (0.1-2.0); Eosinophils # 0.2 K/mm3 (0.0-0.4); Eosinophils % 4.5 % (0.1-12.0); Hematocrit 36.9 % (42.0-52.0); Lymphocytes # 1.3 K/mm3 (0.7-4.5); Lymphocytes % 26.5 % (10-50); Mean Corpuscular HGB Conc 33.1 g/dL (31.8-35.4); Mean Corpuscular Hemoglobin 32.9 pg (27.0-31.2); Mean Corpuscular Volume 99.2 fl (80-94); Monocytes # 0.3 K/mm3 (0.1-1.0); Monocytes % 6.6 % (1.7-9.3); Neutrophils # 3.1 K/mm3 (1.8-7.8); Neutrophils % 61.9 % (37.0-80.0); Platelet Count 168 K/mm3 (142-424); Red Blood Count 3.72 M/mm3 (4.60-6.20); Red Cell Distribution Width 14.5 % (11.5-17.5); White Blood Count 5.1 K/mm3 (4.8-10.8)
[2021-08-12 12:08] LABS: Hemoglobin 12.2 g/dL (14.1-18.0)
--- NOTE | 2021-08-12 12:19 | PC.NURSE ---
Pt refused PO ativan. Ativan had already been removed from packaging. Ativan wasted on Omni, and was verified w/ Shae. NANNETTE Gonzalez.
[2021-08-12 13:46] LABS: Alanine Aminotransferase 15 U/L (12-78); Albumin Level 3.2 g/dl (3.5-5.0); Albumin/Globulin Ratio 1.3 (1.1-1.8); Alkaline Phosphatase 101 U/L (38-126); Anion Gap 10.5 mEq/L (5-15); Aspartate Amino Transferase 26 U/L (17-59); Bilirubin,Total 0.9 mg/dl (0.2-1.3); Blood Urea Nitrogen 6 mg/dl (9-20); Calcium 8.6 mg/dl (8.4-10.2); Carbon Dioxide 23 mmol/L (22.0-30.0); Chloride 105 mmol/L (98-107); Creatinine Clearance Estimated 119 mL/min (50-200); Estimated Glomerular Filt Rate 139 ml/min (>60); GFR (African American) 169 ML/MIN (>60); Globulin 2.4 g/dL (1.3-3.2); Glucose 89 mg/dl (74-100); Lipase 323 U/L (23-300); Potassium 4.5 mmoL/L (3.5-5.1); Sodium 134 mmol/L (136-145); Total Protein,Serum 5.6 g/dl (6.3-8.2)
[2021-08-12 15:19] VITALS: BP 91/53; PULSE 74; RESP 16; TEMP 36.6; O2SAT 98
--- NOTE | 2021-08-12 15:57 | PC.NURSE ---
Courtesy round done. trash taken out. pt is NPO
[2021-08-12 20:00] VITALS: BP 102/55; PULSE 82; RESP 18; TEMP 36.8; O2SAT 96
[2021-08-13] VITALS: BP 98/45; PULSE 76; RESP 16; TEMP 36.7; O2SAT 94
[2021-08-13 05:00] VITALS: BMI 20.6
--- NOTE | 2021-08-13 05:15 | PC.NURSE ---
pt is resting comfortably at this time, no complaints of pain or discomfort, no episodes of nausea or vomiting, pt continues to be npo, no change from previous assessment, call light within reach will continue to monitor at this time
--- NOTE | 2021-08-13 07:29 | HMH.GSCON ---
*Admission Date: 08/11/21 *Reason for consult:: coffee ground emesis with pancreatitis *History of present illness: Patient is a 56-year-old male who had presented to the emergency department several days ago with greater than a several week long history of epigastric pain, symptoms consistent with possible coffee-ground emesis and possible melena along with weight loss. Work-up in the emergency department revealed elevated lipase. He was admitted for inpatient management on 08/11/2021. He had been started on a proton pump inhibitor for the symptoms as an outpatient. He has had decreased oral intake secondary to nausea. Patient apparently does have a history of intermittent acute pancreatitis presumably related to heavy alcohol. He also has a history of pancreatic pseudocyst. He has been seen in consultation by gastroenterology at [facility]. Hemoglobin was 13.6 on admission and 12.2 on 08/12/2021. He has not had any imaging during this admission. He did undergo an outpatient CT scan of the chest abdomen pelvis on 08/07/2021 without any contrast whatsoever which revealed cystic structure within the pancreatic bed, probably due to resolving pseudocyst. Mild changes of chronic pancreatitis. I had previously performed laparoscopic cholecystectomy on him for symptomatic gallstones and pancreatitis. Patient has been n.p.o. for several days. Review of Systems - Review of Systems Review of systems:: pertinent systems reviewed and negative unless documented below - *Neurologic Reports weakness, Denies abnormal hearing, Denies abnormal speech, Denies behavioral changes [facility] History I have reviewed the patient's past medical history: Yes Medical History: Reports:: Anxiety, Cancer, Chronic Obstructive Pulmonary Disease (COPD), Depression, Gastroesophageal Reflux Disease(GERD), Hepatitis, Seizures Denies:: Diabetes Mellitus Type 1, Diabetes Mellitus Type 2, Internal Pacemaker, MRSA *Have you ever received a pneumonia vaccine?: No *Have you received a flu vaccine this season?: No Other Medical History: Reports: Radiation Therapy, Sinus Problems. Denies: Blood Transfusion Reaction Other Surgeries: Yes: No Previous Surgery, Cholecystectomy, Other. No: Pacemaker Amputation: No Fractures: No - *Social History Last grade of school completed: GED Smoking Status: Current every day smoker Tobacco Type: cigarettes # Packs/Day (cigarettes): 2 Alcohol Intake: current Alcohol Intake Frequency:: a few times a week Substance Use Type: denies use *Occupational Status:: disabled Housing: house Household Members: family *Travel in the last 8 weeks: None - Psychiatric History Pschychiatric History:: Reports:: Anxiety, Depression Family Hx:: Asthma, Bleeding Disorder Meds Home Medications Medication Instructions Recorded Confirmed Type albuterol sulfate 90 mcg/actuation 1 puff IH Q4HP PRN 11/25/19 08/12/21 History breath activated powder inhaler,sensor levetiracetam 500 mg tablet 500 mg PO BID #60 tab 02/13/21 08/11/21 Rx Lipase/Protease/Amylase [Montse Fuentes 2 cap PO TIDWMEAL 02/18/21 08/11/21 History 36,000 Unit Capsule] prenat.vits,dank,jjj-ozwt-wfpop 1 tab PO DAILY #90 tab 02/26/21 08/11/21 Rx thiamine mononitrate (vit B1) 100 100 mg PO DAILY #90 tab 02/26/21 08/11/21 Rx mg tablet potassium chloride 10 mEq 10 meq PO DAILY #90 cap 03/27/21 08/11/21 Rx capsule,extended release LORazepam [Lorazepam] 2 mg PO TIDP PRN 08/12/21 08/12/21 History Pantoprazole Sodium 40 mg PO DAILY 08/12/21 08/11/21 History Allergies Allergy/AdvReac Type Severity Reaction Status Date / Time cephalexin [From Keflex] Allergy Mild Hives Verified 08/09/21 10:34 sulfamethoxazole Allergy Unknown Verified 08/09/21 10:34 [From BACTRIM] trimethoprim [From BACTRIM] Allergy Unknown Verified 08/09/21 10:34 Exam Vital signs and Labs for Last 24 Hours: Temp Pulse Resp BP Pulse Ox 98.1 F 76 16 98/45 L 94 L 08/13/21 00:00 07/18
[2021-08-13 08:00] VITALS: BP 103/58; PULSE 82; RESP 20; TEMP 36.6; O2SAT 98
[2021-08-13 08:06] LABS: Basophils % 1.2 % (0.1-2.0); Eosinophils # 0.2 K/mm3 (0.0-0.4); Eosinophils % 5.7 % (0.1-12.0); Hematocrit 34.9 % (42.0-52.0); Hemoglobin 11.2 g/dL (14.1-18.0); Lymphocytes # 1.2 K/mm3 (0.7-4.5); Lymphocytes % 33.2 % (10-50); Mean Corpuscular Hemoglobin 31.7 pg (27.0-31.2); Mean Corpuscular Volume 98.9 fl (80-94); Mean Platelet Volume 8.8 fl (7.4-10.4); Monocytes # 0.3 K/mm3 (0.1-1.0); Monocytes % 7.8 % (1.7-9.3); Neutrophils # 1.9 K/mm3 (1.8-7.8); Neutrophils % 52.1 % (37.0-80.0); Platelet Count 144 K/mm3 (142-424); Red Blood Count 3.53 M/mm3 (4.60-6.20); Red Cell Distribution Width 14.2 % (11.5-17.5); White Blood Count 3.6 K/mm3 (4.8-10.8)
[2021-08-13 08:18] LABS: Alanine Aminotransferase 11 U/L (12-78); Albumin Level 3.1 g/dl (3.5-5.0); Albumin/Globulin Ratio 1.2 (1.1-1.8); Alkaline Phosphatase 96 U/L (38-126); Amylase 44 U/L (30-110); Anion Gap 9.4 mEq/L (5-15); Aspartate Amino Transferase 27 U/L (17-59); Bilirubin,Total 0.7 mg/dl (0.2-1.3); Blood Urea Nitrogen 8 mg/dl (9-20); Calcium 8.4 mg/dl (8.4-10.2); Carbon Dioxide 24 mmol/L (22.0-30.0); Chloride 104 mmol/L (98-107); Creatinine Clearance Estimated 120 mL/min (50-200); Estimated Glomerular Filt Rate 139 ml/min (>60); GFR (African American) 169 ML/MIN (>60); Globulin 2.5 g/dL (1.3-3.2); Glucose 63 mg/dl (74-100); Lipase 114 U/L (23-300); Potassium 4.4 mmoL/L (3.5-5.1); Sodium 133 mmol/L (136-145); Total Protein,Serum 5.6 g/dl (6.3-8.2)
[2021-08-13 08:19] LABS: INR 1.12 (0.9-1.1); Prothrombin Time 12.5 seconds (10.1-12.5)
--- NOTE | 2021-08-13 09:32 | HMH.DCSUM ---
General - General Admission date:: 08/11/21 Discharge date: 08/13/21 HPI HPI: Patient is a 56-year-old white male, known to me through the practice, who was admitted through the emergency room with nominal pain and coffee-ground emesis. Patient has a propensity for pancreatitis, most oftentimes alcohol induced, and has a history of pancreatic pseudocyst formation. He was seen in consultation at [facility] GI department. No procedural intervention has been performed, and radiographically the pseudocysts appear to be resolving. Patient has a history of lung cancer. He was treated with Keytruda. Patient had recent imaging of the chest and abdomen. A linear density in the fissure in the right lung was felt to be postinflammatory change. There was suggestion of pseudocyst resolution on CT abdomen. Patient relays mid epigastric tenderness with coffee-ground emesis over the last few days. Nursing staff has noted no significant instances of nature of blood loss. The repeat hemoglobin is pending. Lipase on admission was 500. Repeat lipase is pending. Hospital Course Hospital Course: Patient is a 56-year-old white male, known to me through the practice, who was admitted through the emergency room with nominal pain and coffee-ground emesis. Patient has a propensity for pancreatitis, most oftentimes alcohol induced, and has a history of pancreatic pseudocyst formation. He was seen in consultation at [facility] GI department. No procedural intervention has been performed, and radiographically the pseudocysts appear to be resolving. General surgery has seen and recommends: Patient's hemoglobin has shown very slight decrease. Labs today pending. No evidence of any active acute GI bleeding. I will check his coagulation profile due to potential hepatic insufficiency. I did review his noncontrast CT scan. It does appear as though he has an appreciable residual pancreatic pseudocyst. However, this is done without oral or IV contrast. Patient may be candidate for upper endoscopy in near future to evaluate potential upper GI hemorrhage. Likely however need gastroenterology evaluation for definitive care. 56-year-old male patient sitting up in bed resting quietly, he reports he feels better today than yesterday. He denies any visible blood in stool and denies emesis. Today's hemoglobin is 11.2 lipase is decreased to 123 we will schedule a follow-up GI appointment for outpatient EGD. Discussed discharge home today and he is agreeable to this. Lengthy discussion regarding importance of taking medicines per instruction. PLAN: 1. We will discharge home today 2. Take all medications per instruction 3. Follow-up with GI at follow-up with PCP 1 week Objective Vital signs: Temp Pulse Resp BP Pulse Ox 98.1 F 76 16 98/45 L 94 L 08/13/21 00:00 08/13/21 00:00 08/13/21 00:00 08/13/21 00:00 08/13/21 00:00 no acute distress, chronically ill appearing - *Routine HEENT Exam Head: Present: normocephalic Eye: Present: EOMI ENT: Present: mucous membranes moist - *Routine Neck Exam Present: trachea midline. Absent: tracheal deviation - *Routine Respiratory Exam Present: CTA bilaterally. Absent: accessory muscle use - *Routine Cardiovascular Exam Present: RRR - *Routine Abdominal Exam Present: soft, normoactive bowel sounds. Absent: tenderness, firm - *Routine Extremities Exam Present: full ROM, pulses intact. Absent: cyanosis, clubbing - *Routine Skin Exam Present: intact, dry. Absent: cyanosis, erythema - *Routine Neurological Exam Present: alert, oriented X3. Absent: motor deficit - Routine Psychiatric Exam Present: normal affect, normal thought process. Absent: visual hallucinations Results Labs on day of discharge: Labs from last 24 hours 08/13/21 08/13/21 08/13/21 07:58 07:58 07:58 WBC 3.6 L D RBC 3.53 L Hgb 11.2 L Hct
--- NOTE | 2021-08-14 14:27 | CARE MANAGER ---
Attempted to contact patient related to post discharge hospital follow up. No voicemail option. NANNETTE Soares
== END 2021-08-13 13:38 | disposition home or self-care (01) ==
LOC: ER 20:01 → 2ND 20:11
PROVIDERS: Surgery; Admitting Provider Internal Medicine Adolescent Medicine; Emergency Provider Student in an Organized Health Care Education/Training Program; PCP Family Medicine; Visit Provider Family Medicine
DX: K85.90 Acute pancreatitis without necrosis or infection, unspecified (principal); E86.0 Dehydration; F17.210 Nicotine dependence, cigarettes, uncomplicated; Z20.822 Contact with and (suspected) exposure to COVID-19; K92.2 Gastrointestinal hemorrhage, unspecified; Z79.899 Other long term (current) drug therapy; Z88.1 Allergy status to other antibiotic agents
CPT/HCPCS: 36415; 80053; 80061; 81001; 82150; 83690; 85025; 85610; 86850; 96365; 96366; 96375; 99285; C9803; G0378; J2405; U0003; U0005

== ENCOUNTER 2021-08-14 16:50 | Inpatient (IN) | payer MEDICAID, SELFPAY ==
[2021-08-14 16:52] VITALS: BP 119/68; PULSE 76; PULSE 97; RESP 20; TEMP 36.9; O2SAT 100; O2SAT 96; BMI 20.5
--- NOTE | 2021-08-14 17:24 | HMH.EDGENADL ---
ED Disposition Clinical Impression: Pancreatitis Qualifiers: Chronicity: chronic Pancreatitis type: unspecified pancreatitis type Qualified Code(s): K86.1 - Other chronic pancreatitis Disposition: Admitted as Observation Condition on Discharge: Good Instructions: DI for Diarrhea and Traveler's Diarrhea -- Adult, DI for Diarrhea and Traveler's Diarrhea -- Child, DI for Nausea -- Adult, DI for Nausea -- Child Referrals: Richard Edgar MD [Primary Care Provider] - - Critical Care Critical Care Time: No Attestation: On 08/14/21, the high probability of a clinically significant, sudden or life threatening deterioration of the following system(s) required my full and direct attention, intervention and personal management. The time I documented below is in addition to time spent performing reported procedures but includes the following listed in this critical care notation. Medical Decision Making - Medical Records Medical records reviewed: Yes: I reviewed the patient's medical records. - Medhat Inquiry Pt receiving controlled substance: No Vital Signs: 08/14/21 16:52 Temperature 98.5 F Temperature Source Oral Pulse Rate 97 H Pulse Rate [Left Radial] 76 Respiratory Rate 20 Blood Pressure 119/68 Blood Pressure [Right Arm] 119/68 Blood Pressure Mean [Right Arm] 85 Blood Pressure Source Automatic Cuff Blood Pressure Source [Right Arm] Automatic Cuff Blood Pressure Position Supine Blood Pressure Position [Right Arm] Sitting 02 Sat by Pulse Oximetry 96 Oxygen Delivery Method Room Air - Lab Data Lab Results 08/14/21 17:10: WBC 7.1 D, RBC 4.01 L, Hgb 12.8 L, Hct 38.5 L, MCV 96.0 H, MCH 31.9 H, MCHC 33.2, RDW 14.4, Plt Count 228 D, MPV 9.3, Neut % (Auto) 75.9, Lymph % (Auto) 14.2, [place] % (Auto) 5.6, Eos % (Auto) 3.8, Baso % (Auto) 0.5, Neut # (Auto) 5.4, Lymph # (Auto) 1.0, [place] # (Auto) 0.4, Eos # (Auto) 0.3, Baso # (Auto) 0.0 08/14/21 17:10: Sodium 138, Potassium 3.6, Chloride 102, Carbon Dioxide 30, Anion Gap 9.6, BUN 5 L D, Creatinine 0.60 L, Estimated Creat Clear 119, Estimated GFR 139, Est GFR ( Amer) 169, Glucose 115 H, Calcium 8.8, Total Bilirubin 0.5, AST 24, ALT 15 D, Alkaline Phosphatase 115, Total Protein 6.7, Albumin 3.9 D, Globulin 2.8, Albumin/Globulin Ratio 1.4, Amylase 72, Lipase 626 H Result diagrams: 08/14/21 17:10 08/14/21 17:10 Orders (Tests/Meds): ED MEDICATIONS Generic Name Dose Route Start Last Admin Trade Name Freq PRN Reason Stop Dose Admin Sodium Chloride 10 ml 08/14/21 17:22 Sodium Chloride 0.9% 10ml Vial IV 09/13/21 17:21 NEEDED PRN dilute protonix Discontinued Medications Generic Name Dose Route Start Last Admin Trade Name Freq PRN Reason Stop Dose Admin Hydrocodone Bitart/Acetaminophen 1 tab 08/14/21 17:23 Hydrocodone/Apap 5/325 Mg Tablet PO 08/14/21 17:24 ONCE ONE Metoclopramide HCl 10 mg 08/14/21 17:23 Metoclopramide Hcl 10mg/2ml Vial IVP 08/14/21 17:24 ONCE ONE Pantoprazole Sodium 40 mg 08/14/21 17:22 Pantoprazole 40mg Vial IV 08/14/21 17:23 ONCE ONE General Adult HPI - General Chief complaint: Nausea/Vomiting/Diarrhea Stated complaint: vomiting abd pain Time Seen by Provider: 08/14/21 17:24 Mode of Arrival: Ambulatory Source of Information: Patient Limitations: No Limitations Description of Symptoms (Recalled from ER Triage Doc. by RN): c/o cramping, vomiting, coffee ground emesis for one month. PT states he was DC from [facility] yesterday and he feels that he was released to soon - History of Present Illness HPI narrative: upper abd pain, n/v, d/c from inpt here yest for same h/o pancreatitis, upper gi bleed worse today Radiation: non-radiation Severity: moderate Relieving factors: none Exacerbating factors: none Associated symptoms: nausea/vomiting - Related Data Home Medications Medication Instructions Recorded Confirmed albuterol sulfate 90 mcg/actuation 1 p
[2021-08-14 17:50] LABS: Basophils % 0.5 % (0.1-2.0); Eosinophils # 0.3 K/mm3 (0.0-0.4); Eosinophils % 3.8 % (0.1-12.0); Hematocrit 38.5 % (42.0-52.0); Hemoglobin 12.8 g/dL (14.1-18.0); Lymphocytes % 14.2 % (10-50); Mean Corpuscular HGB Conc 33.2 g/dL (31.8-35.4); Mean Corpuscular Hemoglobin 31.9 pg (27.0-31.2); Mean Platelet Volume 9.3 fl (7.4-10.4); Monocytes # 0.4 K/mm3 (0.1-1.0); Monocytes % 5.6 % (1.7-9.3); Neutrophils # 5.4 K/mm3 (1.8-7.8); Neutrophils % 75.9 % (37.0-80.0); Platelet Count 228 K/mm3 (142-424); Red Blood Count 4.01 M/mm3 (4.60-6.20); Red Cell Distribution Width 14.4 % (11.5-17.5); White Blood Count 7.1 K/mm3 (4.8-10.8)
[2021-08-14 17:55] LABS: Alanine Aminotransferase 15 U/L (12-78); Albumin Level 3.9 g/dl (3.5-5.0); Albumin/Globulin Ratio 1.4 (1.1-1.8); Alkaline Phosphatase 115 U/L (38-126); Amylase 72 U/L (30-110); Anion Gap 9.6 mEq/L (5-15); Aspartate Amino Transferase 24 U/L (17-59); Bilirubin,Total 0.5 mg/dl (0.2-1.3); Blood Urea Nitrogen 5 mg/dl (9-20); Calcium 8.8 mg/dl (8.4-10.2); Carbon Dioxide 30 mmol/L (22.0-30.0); Chloride 102 mmol/L (98-107); Creatinine Clearance Estimated 119 mL/min (50-200); Estimated Glomerular Filt Rate 139 ml/min (>60); GFR (African American) 169 ML/MIN (>60); Globulin 2.8 g/dL (1.3-3.2); Glucose 115 mg/dl (74-100); Potassium 3.6 mmoL/L (3.5-5.1); Sodium 138 mmol/L (136-145); Total Protein,Serum 6.7 g/dl (6.3-8.2)
[2021-08-14 18:10] LABS: Lipase 626 U/L (23-300)
--- NOTE | 2021-08-14 18:11 | PC.NURSE ---
Critical lipase given per nurse to
--- NOTE | 2021-08-14 18:32 | PC.NURSE ---
HOUSE CALLED FOR BED
[2021-08-14 19:32] LABS: Coronavirus 19, PCR Not Detected (NotDetected); Influenza A, PCR Not Detected (NotDetected); Influenza B, PCR Not Detected (NotDetected)
[2021-08-14 19:43] VITALS: BMI 20.5
[2021-08-14 19:56] VITALS: BP 117/75; PULSE 89; RESP 20; TEMP 36.9; O2SAT 96
[2021-08-14 20:00] VITALS: BP 112/68; PULSE 91; RESP 17; TEMP 37; O2SAT 97
--- NOTE | 2021-08-14 20:16 | PC.NURSE ---
pt arrived to floor via wheelchair at this time
[2021-08-14 21:03] LABS: Microscopic, Urine URINE MICROSCOPIC (MICROSCOPIC)
[2021-08-14 21:06] LABS: Appearance,Urine CLEAR (Clear); Bilirubin,Urine Negative (Negative); Blood, Urine Negative (Negative); Color,Urine YELLOW (Yellow); Glucose,Urine (UA) Negative (Negative); Ketones,Urine Negative (Negative); Leukocyte Esterase,Urine Negative (Negative); Nitrate,Urine Negative (Negative); PH,Urine 7.5 (5.0-8.5); Protein,Urine Negative (Negative); Specific Gravity, Urine 1.015 (1.005-1.030); Urobilinogen,Urine 0.2 EU/dl (0.2)
[2021-08-14 21:29] LABS: Bacteria,Urine Trace /lpf; WBC,Urine Occasional #/hpf (0-3)
[2021-08-15] VITALS (15 sets, daily range): BP systolic 93–130; BP diastolic 49–73; PULSE 57–102; RESP 14–18; TEMP 36.8–37.2; O2SAT 91–98
[2021-08-15 06:43] LABS: Basophils % 0.3 % (0.1-2.0); Eosinophils # 0.1 K/mm3 (0.0-0.4); Eosinophils % 1.5 % (0.1-12.0); Hemoglobin 12.3 g/dL (14.1-18.0); Lymphocytes # 1.5 K/mm3 (0.7-4.5); Lymphocytes % 21.2 % (10-50); Mean Corpuscular HGB Conc 33.2 g/dL (31.8-35.4); Mean Corpuscular Hemoglobin 32.2 pg (27.0-31.2); Mean Corpuscular Volume 97.2 fl (80-94); Mean Platelet Volume 9.5 fl (7.4-10.4); Monocytes # 0.8 K/mm3 (0.1-1.0); Monocytes % 10.3 % (1.7-9.3); Neutrophils # 4.9 K/mm3 (1.8-7.8); Neutrophils % 66.8 % (37.0-80.0); Platelet Count 236 K/mm3 (142-424); Red Cell Distribution Width 14.7 % (11.5-17.5); White Blood Count 7.3 K/mm3 (4.8-10.8)
[2021-08-15 06:49] LABS: Alanine Aminotransferase 16 U/L (12-78); Albumin Level 3.1 g/dl (3.5-5.0); Albumin/Globulin Ratio 1.2 (1.1-1.8); Alkaline Phosphatase 96 U/L (38-126); Anion Gap 7.3 mEq/L (5-15); Aspartate Amino Transferase 28 U/L (17-59); Bilirubin,Total 0.7 mg/dl (0.2-1.3); Blood Urea Nitrogen 4 mg/dl (9-20); Calcium 8.2 mg/dl (8.4-10.2); Carbon Dioxide 27 mmol/L (22.0-30.0); Chloride 105 mmol/L (98-107); Creatinine Clearance Estimated 102 mL/min (50-200); Estimated Glomerular Filt Rate 117 ml/min (>60); GFR (African American) 141 ML/MIN (>60); Globulin 2.6 g/dL (1.3-3.2); Glucose 138 mg/dl (74-100); Potassium 4.3 mmoL/L (3.5-5.1); Sodium 135 mmol/L (136-145); Total Protein,Serum 5.7 g/dl (6.3-8.2)
--- NOTE | 2021-08-15 07:08 | P.CONPHA_ITS ---
[facility] Pharmacy VTE Monitoring - Patient Demographics Admission date: 08/14/21 Report Date: 08/15/21 Time: 07:08 Allergies/Adverse Reactions: Patient Allergies cephalexin [From Keflex] Allergy (Mild, Verified 08/14/21 20:51) Hives sulfamethoxazole [From BACTRIM] Allergy (Unknown, Verified 08/14/21 20:51) trimethoprim [From BACTRIM] Allergy (Unknown, Verified 08/14/21 20:51) Height: 1.73 m Weight: 61.235 kg Patient Problems: Current Active Problems (Last Updated 11/02/19 @ 14:48 by Richard Edgar MD) Pancreatitis (Acute) - VTE Risk Labs: VTE Related Lab Results Hgb 12.3 g/dL (14.1-18.0) L 08/15/21 06:03 Hct 37.0 % (42.0-52.0) L 08/15/21 06:03 Plt Count 236 K/mm3 (142-424) 08/15/21 06:03 BUN 4 mg/dl (9-20) L 08/15/21 06:03 Creatinine 0.70 mg/dl (0.66-1.25) 08/15/21 06:03 Estimated Creat Clear 102 mL/min (50-200) 08/15/21 06:03 VTE Score: 8 VTE Risk Level: Moderate Risk - Prophylaxis VTE Prophylaxis Ordered?: Yes Types of VTE Prophylaxis: TEDS Knee High Location of Applied Device: Bilateral Lower Extremeties
--- NOTE | 2021-08-15 07:31 | HMH.PHAINT ---
MEDICATION RECONCILIATION COMPLETED ON PATIENT USING DISCHARGE SUMMARY FROM PREVIOUS ADMISSION. -YESIKA SMITH, NIKOLED
--- NOTE | 2021-08-15 09:57 | HMH.GSCON ---
*Admission Date: 08/14/21 *Reason for consult:: Abdominal Pain. ? gastritis *History of present illness: Asked to see this patient for possible gastritis . He is a 56-year-old male who had presented to the emergency department on 08/11/21 with greater than a several week long history of epigastric pain, symptoms consistent with possible coffee-ground emesis, and possible melena along with weight loss and some nausea. Work-up in the emergency department at that time revealed elevated lipase. He was admitted for inpatient management on 08/11/2021. Patient has a history of intermittent acute pancreatitis presumably related to heavy alcohol consumption. He also has a history of pancreatic pseudocyst. He has been seen in consultation by gastroenterology at [facility]. Hemoglobin was 13.6 on admission on 08/11/21. He did undergo an outpatient CT scan of the chest abdomen pelvis on 08/07/2021 without any contrast whatsoever which revealed cystic structure within the pancreatic bed, probably due to resolving pseudocyst. Mild changes of chronic pancreatitis. He had previously undergone laparoscopic cholecystectomy for symptomatic gallstones and pancreatitis. He had been admitted on 08/11/2021. Surgical consultation was obtained on 08/13/2021. It was felt that the majority of his symptoms may be secondary to his underlying pancreatic issues and he would ultimately need gastroenterology evaluation and input. Consideration was being given for EGD. Patient was discharged shortly after surgical consultation. His lipase had normalized to 114 on day of discharge (08/13/21). Patient presented back to the emergency department on 08/14/2021 with recurrent complaints of abdominal cramping, vomiting, possible coffee-ground emesis. He was found to have elevated lipase of 626. Hemoglobin is 12.3 which is essentially stable since 08/12/2021. Surgical consultation was ordered today. Review of Systems - Review of Systems Review of systems:: pertinent systems reviewed and negative unless documented below [facility] History I have reviewed the patient's past medical history: Yes Medical History: Reports:: Anxiety, Chronic Obstructive Pulmonary Disease (COPD), Depression, Gastroesophageal Reflux Disease(GERD), Hepatitis, Seizures Denies:: Cancer, Diabetes Mellitus Type 1, Diabetes Mellitus Type 2, Internal Pacemaker, MRSA *Have you ever received a pneumonia vaccine?: Yes *Have you received a flu vaccine this season?: Yes Other Medical History: Reports: Radiation Therapy, Sinus Problems. Denies: Blood Transfusion Reaction Other Surgeries: Yes: No Previous Surgery, Cholecystectomy, Other. No: Pacemaker Amputation: No Fractures: No - *Social History Smoking Status: Current every day smoker Tobacco Type: cigarettes # Packs/Day (cigarettes): 2 Alcohol Intake: current Alcohol Intake Frequency:: a few times a week Substance Use Type: denies use *Occupational Status:: disabled Housing: house Household Members: family *Travel in the last 8 weeks: None - Psychiatric History Pschychiatric History:: Reports:: Anxiety, Depression Family Hx:: Asthma, Bleeding Disorder Meds Home Medications Medication Instructions Recorded Confirmed Type albuterol sulfate 90 mcg/actuation 1 puff IH Q4HP PRN 11/25/19 08/14/21 History breath activated powder inhaler,sensor levetiracetam 500 mg tablet 500 mg PO BID #60 tab 02/13/21 08/14/21 Rx Lipase/Protease/Amylase [Creon Dr 2 cap PO TIDWMEAL 02/18/21 08/14/21 History 36,000 Unit Capsule] prenat.vits,dank,rvm-fslk-vzkhg 1 tab PO DAILY #90 tab 02/26/21 08/14/21 Rx thiamine mononitrate (vit B1) 100 100 mg PO DAILY #90 tab 02/26/21 08/14/21 Rx mg tablet potassium chloride 10 mEq 10 meq PO DAILY #90 cap 03/27/21 08/14/21 Rx capsule,extended release LORazepam [Lorazepam] 2 mg PO TIDP PRN 08/12/21 08/14/21 History Pantoprazole Sodium 40 mg PO DAILY 08/12/21 08/14/21 History Allergies Allergy/AdvReac Type Se
[2021-08-15 11:03] LABS: Ethyl Alcohol < 10 mg/dl (0-10)
--- NOTE | 2021-08-15 15:52 | HMH.SCOPE ---
- Procedure: Date: 08/15/21 Patient Date of :: 1965 Procedure Performed:: Esophagogastroduodenoscopy with biopsies Indications:: Asked to see this patient for possible gastritis . He is a 56-year-old male who had presented to the emergency department on 08/11/21 with greater than a several week long history of epigastric pain, symptoms consistent with possible coffee-ground emesis, and possible melena along with weight loss and some nausea. Work-up in the emergency department at that time revealed elevated lipase. He was admitted for inpatient management on 08/11/2021. Patient has a history of intermittent acute pancreatitis presumably related to heavy alcohol consumption. He also has a history of pancreatic pseudocyst. He has been seen in consultation by gastroenterology at [facility]. Hemoglobin was 13.6 on admission on 08/11/21. He did undergo an outpatient CT scan of the chest abdomen pelvis on 08/07/2021 without any contrast whatsoever which revealed cystic structure within the pancreatic bed, probably due to resolving pseudocyst. Mild changes of chronic pancreatitis. He had previously undergone laparoscopic cholecystectomy for symptomatic gallstones and pancreatitis. He had been admitted on 08/11/2021. Surgical consultation was obtained on 08/13/2021. It was felt that the majority of his symptoms may be secondary to his underlying pancreatic issues and he would ultimately need gastroenterology evaluation and input. Consideration was being given for EGD. Patient was discharged shortly after surgical consultation. His lipase had normalized to 114 on day of discharge (08/13/21). Patient presented back to the emergency department on 08/14/2021 with recurrent complaints of abdominal cramping, vomiting, possible coffee-ground emesis. He was found to have elevated lipase of 626. Hemoglobin is 12.3 which is essentially stable since 08/12/2021. Surgical consultation was ordered today. Performing Provider:: Parviz Trevino MD Referring Provider:: Deven Gates MD Sedation:: MAC sedation Procedure:: Patient was taken to endoscopy procedure room. He was positioned in lateral decubitus position. Adequate intravenous sedation was achieved with anesthesia titration of propofol. Olympus endoscope was inserted via the oropharynx. Esophagus was cannulated. Endoscope was advanced. Esophagus overall appeared normal. Gastroesophageal junction was encountered at approximately 39 cm from the incisors. Stomach was cannulated. There was some bilious liquid within the stomach which was suctioned free. Overall mucosa of the gastric lumen appeared unremarkable however in the proximal fundus there was a focal area of significant gastritis versus even possible neoplasm. Pylorus was traversed. Duodenum appeared unremarkable. Endoscope was able to be advanced a generous distance into the duodenum which appeared unremarkable. Endoscope was withdrawn into the stomach. Gastric antral mucosal biopsy was obtained. While performing retroflexion numerous cold biopsies were obtained of the area of inflammation in the proximal fundus. Stomach was desufflated and the endoscope was withdrawn. Findings:: Gastroesophageal junction at 39 cm from the incisors Area of significant inflammation in the proximal fundus. Possible severe focal gastritis versus neoplasm. Numerous biopsies obtained Recommendations:: Treat with proton pump inhibitors. Follow-up on biopsy results. He will require gastroenterology input regarding his complicated nonbiliary pancreatitis with pseudocyst formation. Complications:: None immediately apparent Estimated blood obtained (mL): 3
--- NOTE | 2021-08-15 16:08 | HMH.HP ---
*Admission Date: 08/14/21 *Chief complaint: abd pain *History of present illness: Patient presented back to the emergency department on 08/14/2021 with recurrent complaints of abdominal cramping, vomiting, possible coffee-ground emesis. PT states he was DC from [facility] on Friday. Admitted for elevated lipase of 626, hx chronic pancreatitis with cyst. general surgery consult for egd for poss gi bleed [facility] History I have reviewed the patient's past medical history: Yes Medical History: Reports:: Anxiety, Chronic Obstructive Pulmonary Disease (COPD), Depression, Gastroesophageal Reflux Disease(GERD), Hepatitis, Seizures Denies:: Cancer, Diabetes Mellitus Type 1, Diabetes Mellitus Type 2, Internal Pacemaker, MRSA *Have you ever received a pneumonia vaccine?: Yes *Have you received a flu vaccine this season?: Yes Other Medical History: Reports: Radiation Therapy, Sinus Problems. Denies: Blood Transfusion Reaction Other Surgeries: Yes: No Previous Surgery, Cholecystectomy, Other. No: Pacemaker Amputation: No Fractures: No - *Social History Smoking Status: Current every day smoker Tobacco Type: cigarettes # Packs/Day (cigarettes): 2 Alcohol Intake: current Alcohol Intake Frequency:: a few times a week Substance Use Type: denies use *Occupational Status:: disabled Housing: house Household Members: family *Travel in the last 8 weeks: None - Psychiatric History Pschychiatric History:: Reports:: Anxiety, Depression Family Hx:: Asthma, Bleeding Disorder Review of Systems - Review of Systems Review of systems:: pertinent systems reviewed and negative unless documented below - Constitutional Denies body ache(s), Denies fatigue - Eyes Denies blurry vision - ENT Denies abnormal hearing - *Cardiovascular Denies chest pain at rest - *Respiratory Denies change in phlegm color - *Gastrointestinal Reports abdominal pain, Reports bloating, Reports nausea, Reports vomiting - *Genitourinary Denies urinary frequency - *Musculoskeletal Denies muscle weakness - Integumentary/Breasts Denies rash - *Neurologic Denies abnormal hearing - Psychiatric Denies lack of enjoyment - Endocrine Denies excessive sweating - Hematologic/Lymphatic Denies easy bruising - Allergic/Immunologic Denies itchy eyes Meds Home Medications Medication Instructions Recorded Confirmed Type albuterol sulfate 90 mcg/actuation 1 puff IH Q4HP PRN 11/25/19 08/14/21 History breath activated powder inhaler,sensor levetiracetam 500 mg tablet 500 mg PO BID #60 tab 02/13/21 08/14/21 Rx Lipase/Protease/Amylase [Montse Fuentes 2 cap PO TIDWMEAL 02/18/21 08/14/21 History 36,000 Unit Capsule] prenat.vits,dank,vfv-kiib-ngemu 1 tab PO DAILY #90 tab 02/26/21 08/14/21 Rx thiamine mononitrate (vit B1) 100 100 mg PO DAILY #90 tab 02/26/21 08/14/21 Rx mg tablet potassium chloride 10 mEq 10 meq PO DAILY #90 cap 03/27/21 08/14/21 Rx capsule,extended release LORazepam [Lorazepam] 2 mg PO TIDP PRN 08/12/21 08/14/21 History Pantoprazole Sodium 40 mg PO DAILY 08/12/21 08/14/21 History Allergies Allergy/AdvReac Type Severity Reaction Status Date / Time cephalexin [From Keflex] Allergy Mild Hives Verified 08/14/21 20:51 sulfamethoxazole Allergy Unknown Verified 08/14/21 20:51 [From BACTRIM] trimethoprim [From BACTRIM] Allergy Unknown Verified 08/14/21 20:51 Exam Vital signs and Labs for Last 24 Hours: Temp Pulse Resp BP Pulse Ox 98.4 F 94 H 14 99/65 L 93 L 08/15/21 08:00 08/15/21 08:00 08/15/21 08:00 08/15/21 08:00 08/15/21 08:00 Laboratory Results - last 24 hr 08/14/21 17:10: WBC 7.1 D, RBC 4.01 L, Hgb 12.8 L, Hct 38.5 L, MCV 96.0 H, MCH 31.9 H, MCHC 33.2, RDW 14.4, Plt Count 228 D, MPV 9.3, Neut % (Auto) 75.9, Lymph % (Auto) 14.2, [place] % (Auto) 5.6, Eos % (Auto) 3.8, Baso % (Auto) 0.5, Neut # (Auto) 5.4, Lymph # (Auto) 1.0, [place] # (Auto) 0.4, Eos # (Auto) 0.3, Baso # (Auto) 0.0 08/14/21 17:10: Sodium 1
--- NOTE | 2021-08-15 17:40 | PC.NURSE ---
Pt is alert and oriented x4. Lungs are clear, bowel sounds active x4. He remains on RA w/O2 sats measuring in the upper 90's. His abd is soft and tender. Appetite has been ok. He's tolerating his clear liquid diet. He's used a urinal at the bedside. Treated x1 in the AM for abd pain. Favorable results noted on reassessment. Pt has no questions or concerns at this time.
--- NOTE | 2021-08-15 20:21 | HMH.ANESCL ---
[facility] Anesthesia Checklist - Patient Identification Patient Identification: Arm Band, Verbal (Name & ) - Structural Data Admitted From: Inpatient Planned Operative Procedure/s: EGD Consent for Planned Operative Procedure(s) Verified: Yes Verified Documents: Surgical Consent - NPO Status Verified Time NPO: 00:00 - Additional verifications Anesthesia Reactions: No Hx Blood Transfusions: No Blood Transfusion Reaction: No - Airway Assessment C-Spine Mobility Assessed: Yes TMJ Mobility Assessed: Yes Dentition: Edentulous - Neurological Assessment Level of Consciousness: Awake, Alert, Appropriate - Anesthesia Plan Anesthesia Risk discussed: Yes ASA Class: III Anesthesia Type: MAC [facility] History Medical History: Reports:: Anxiety, Chronic Obstructive Pulmonary Disease (COPD), Depression, Gastroesophageal Reflux Disease(GERD), Hepatitis, Seizures Denies:: Cancer, Diabetes Mellitus Type 1, Diabetes Mellitus Type 2, Internal Pacemaker, MRSA *Have you ever received a pneumonia vaccine?: Yes *Have you received a flu vaccine this season?: Yes Other Medical History: Reports: Radiation Therapy, Sinus Problems. Denies: Blood Transfusion Reaction Anesthesia experience/problems:: no issues Other Surgeries: Yes: No Previous Surgery, Cholecystectomy, Other. No: Pacemaker Amputation: No Fractures: No - *Social History Smoking Status: Current every day smoker Tobacco Type: cigarettes # Packs/Day (cigarettes): 2 Alcohol Intake: current Alcohol Intake Frequency:: a few times a week Substance Use Type: denies use *Occupational Status:: disabled Housing: house Household Members: family *Travel in the last 8 weeks: None - Psychiatric History Pschychiatric History:: Reports:: Anxiety, Depression Family Hx:: Asthma, Bleeding Disorder
[2021-08-16] VITALS: BP 93/50; PULSE 87; RESP 18; TEMP 36.5; O2SAT 95
[2021-08-16 04:00] VITALS: BP 98/52; PULSE 87; RESP 18; TEMP 36.9; O2SAT 93
[2021-08-16 05:00] VITALS: BMI 20.5
[2021-08-16 06:24] LABS: Basophils % 0.2 % (0.1-2.0); Eosinophils # 0.2 K/mm3 (0.0-0.4); Eosinophils % 2.9 % (0.1-12.0); Hematocrit 32.4 % (42.0-52.0); Lymphocytes # 1.2 K/mm3 (0.7-4.5); Lymphocytes % 20.6 % (10-50); Mean Corpuscular Hemoglobin 32.9 pg (27.0-31.2); Mean Corpuscular Volume 96.9 fl (80-94); Mean Platelet Volume 9.6 fl (7.4-10.4); Monocytes # 0.5 K/mm3 (0.1-1.0); Monocytes % 8.2 % (1.7-9.3); Neutrophils % 68.2 % (37.0-80.0); Platelet Count 183 K/mm3 (142-424); Red Blood Count 3.34 M/mm3 (4.60-6.20); Red Cell Distribution Width 14.3 % (11.5-17.5); White Blood Count 5.8 K/mm3 (4.8-10.8)
[2021-08-16 06:31] LABS: Amylase 81 U/L (30-110); Anion Gap 7.8 mEq/L (5-15); Blood Urea Nitrogen 4 mg/dl (9-20); Calcium 8.1 mg/dl (8.4-10.2); Carbon Dioxide 25 mmol/L (22.0-30.0); Chloride 104 mmol/L (98-107); Creatinine Clearance Estimated 119 mL/min (50-200); Estimated Glomerular Filt Rate 139 ml/min (>60); GFR (African American) 169 ML/MIN (>60); Glucose 121 mg/dl (74-100); Lipase 401 U/L (23-300); Potassium 3.8 mmoL/L (3.5-5.1); Sodium 133 mmol/L (136-145)
--- NOTE | 2021-08-16 07:12 | P.PN_ITS ---
Subjective Narrative: Patient complains of cramping pain, belching. Feels the need to vomit. Taking clears. EGD yesterday reveals inflammatory area in fundus, possible neoplasm vs. focal severe gastritis. Progress Note: A&P (1) Pancreatitis Status: Acute (2) Alcoholic pancreatitis Status: Acute (3) Chronic alcohol abuse Status: Acute (4) Chronic pancreatitis Status: Acute Assessment and Plan for All Diagnoses:: Some decrease in Hgb since admission. No clinical bleeding however. Lipase remains elevated. Continue inpatient management. Pathology on gastric lesion pending. Many of current symptoms likely secondary to non-biliary pancreatitis Exam Vital signs and Labs for Last 24 Hours: Temp Pulse Resp BP Pulse Ox 98.4 F 87 18 98/52 L 93 L 08/16/21 04:00 08/16/21 04:00 08/16/21 04:00 08/16/21 04:00 08/16/21 04:00 Laboratory Results - last 24 hr 08/15/21 06:03: Plasma/Serum Alcohol < 10 08/16/21 05:19: WBC 5.8, RBC 3.34 L, Hct 32.4 L, MCV 96.9 H, MCH 32.9 H, MCHC 34.0, RDW 14.3, Plt Count 183, MPV 9.6, Neut % (Auto) 68.2, Lymph % (Auto) 20.6, [place] % (Auto) 8.2, Eos % (Auto) 2.9, Baso % (Auto) 0.2, Neut # (Auto) 4.0, Lymph # (Auto) 1.2, [place] # (Auto) 0.5, Eos # (Auto) 0.2, Baso # (Auto) 0.0 08/16/21 05:19: Sodium 133 L, Potassium 3.8, Chloride 104, Carbon Dioxide 25, Anion Gap 7.8, BUN 4 L, Creatinine 0.60 L, Estimated Creat Clear 119, Estimated GFR 139, Est GFR ( Amer) 169, Glucose 121 H, Calcium 8.1 L, Amylase 81, Lipase 401 H I & O for Last 24 hours: Intake & Output 08/13/21 08/14/21 08/15/21 08/16/21 11:59 11:59 11:59 11:59 Intake Total 996 / 996 496 / 496 Output Total 425 / 425 1400 / 1400 Balance 571 / 571 -904 / -904 Weight 135 lb 0.001 oz 135 lb 0.001 oz - Constitutional no acute distress
[2021-08-16 08:00] VITALS: BP 92/52; PULSE 87; RESP 16; TEMP 36.9; O2SAT 98
--- NOTE | 2021-08-16 09:34 | HMH.ACPN2 ---
Internal Medicine - PN: Subj *Date: 08/16/21 *Time: 12:54 Interval history: 56-year-old male patient resting in bed quietly with eyes open, he reports he is abdomen was yeast distiller still reports pain and cramping. He had an EGD performed yesterday per general surgery which revealed: Area of significant inflammation in the proximal fundus. Possible severe focal gastritis versus neoplasm. Numerous biopsies obtained Recommendations:: Treat with proton pump inhibitors. Follow-up on biopsy results. He will require gastroenterology input regarding his complicated nonbiliary pancreatitis with pseudocyst formation. Exam Vital signs and Labs for Last 24 Hours: Temp Pulse Resp BP Pulse Ox 98.4 F 87 16 92/52 L 98 08/16/21 08:00 08/16/21 08:00 08/16/21 08:00 08/16/21 08:00 08/16/21 08:00 Laboratory Results - last 24 hr 08/15/21 06:03: Plasma/Serum Alcohol < 10 08/16/21 05:19: WBC 5.8, RBC 3.34 L, Hgb 11.0 L D, Hct 32.4 L, MCV 96.9 H, MCH 32.9 H, MCHC 34.0, RDW 14.3, Plt Count 183, MPV 9.6, Neut % (Auto) 68.2, Lymph % (Auto) 20.6, [place] % (Auto) 8.2, Eos % (Auto) 2.9, Baso % (Auto) 0.2, Neut # (Auto) 4.0, Lymph # (Auto) 1.2, [place] # (Auto) 0.5, Eos # (Auto) 0.2, Baso # (Auto) 0.0 08/16/21 05:19: Sodium 133 L, Potassium 3.8, Chloride 104, Carbon Dioxide 25, Anion Gap 7.8, BUN 4 L, Creatinine 0.60 L, Estimated Creat Clear 119, Estimated GFR 139, Est GFR ( Amer) 169, Glucose 121 H, Calcium 8.1 L, Amylase 81, Lipase 401 H I & O for Last 24 hours: Intake & Output 08/13/21 08/14/21 08/15/21 08/16/21 23:59 23:59 23:59 23:59 Intake Total 1492 / 1492 Output Total 725 / 725 1100 / 1100 Balance 767 / 767 -1100 / -1100 Weight 135 lb 0.001 oz 135 lb 0.001 oz - Constitutional no acute distress, chronically ill appearing - *Routine HEENT Exam Head: Present: normocephalic Eye: Present: EOMI ENT: Present: mucous membranes dry - *Routine Neck Exam Present: trachea midline. Absent: supple, tracheal deviation - *Routine Respiratory Exam Present: decreased breath sounds. Absent: accessory muscle use - *Routine Cardiovascular Exam Present: RRR - *Routine Abdominal Exam Present: soft, normoactive bowel sounds, tenderness. Absent: distended - *Routine Extremities Exam Present: full ROM, pulses intact. Absent: cyanosis, clubbing, edema - *Routine Skin Exam Present: intact, dry. Absent: cyanosis, erythema - *Routine Neurological Exam Present: alert, oriented X3. Absent: altered mental status - Routine Psychiatric Exam Present: normal affect, normal thought process. Absent: visual hallucinations Assessment and Plan (1) Pancreatitis Status: Acute Qualifiers: Chronicity: chronic Pancreatitis type: unspecified pancreatitis type Qualified Code(s): K86.1 - Other chronic pancreatitis Category: Medical Code(s): K85.90 - Acute pancreatitis without necrosis or infection, unspecified (2) Alcoholic pancreatitis Status: Acute Qualifiers: Chronicity: acute Acute pancreatitis complication: no infection or necrosis Qualified Code(s): K85.20 - Alcohol induced acute pancreatitis without necrosis or infection Category: Medical Code(s): K85.20 - Alcohol induced acute pancreatitis without necrosis or infection (3) Chronic alcohol abuse Status: Acute Category: Medical Code(s): F10.10 - Alcohol abuse, uncomplicated (4) Chronic pancreatitis Status: Acute Qualifiers: Pancreatitis type: alcohol induced Qualified Code(s): K86.0 - Alcohol-induced chronic pancreatitis Category: Medical Code(s): K86.1 - Other chronic pancreatitis - Assessment and plan all Dx Assessment and Plan for all problems:: Rounded with Dr. Edgar, all orders per Dr. Edgar: 1. Bentyl 10 mg 4 times daily 2. Advance diet as tolerated 3. Add Ativan as needed
[2021-08-16 12:00] VITALS: BP 114/64; PULSE 81; RESP 18; TEMP 36.9; O2SAT 94
[2021-08-16 16:00] VITALS: BP 120/70; PULSE 75; RESP 16; TEMP 37.1; O2SAT 99
[2021-08-16 20:00] VITALS: BP 108/66; PULSE 70; RESP 20; TEMP 36.9; O2SAT 96
[2021-08-17] VITALS: BP 101/58; PULSE 71; RESP 16; TEMP 36.9; O2SAT 98
[2021-08-17 04:00] VITALS: BP 102/59; PULSE 65; RESP 14; TEMP 36.8; O2SAT 99
[2021-08-17 05:00] VITALS: BMI 19.7
[2021-08-17 06:01] LABS: Basophils % 0.8 % (0.1-2.0); Eosinophils # 0.2 K/mm3 (0.0-0.4); Eosinophils % 5.2 % (0.1-12.0); Hematocrit 32.8 % (42.0-52.0); Lymphocytes # 1.2 K/mm3 (0.7-4.5); Lymphocytes % 31.5 % (10-50); Mean Corpuscular HGB Conc 33.6 g/dL (31.8-35.4); Mean Corpuscular Hemoglobin 32.8 pg (27.0-31.2); Mean Corpuscular Volume 97.5 fl (80-94); Mean Platelet Volume 9.6 fl (7.4-10.4); Monocytes # 0.3 K/mm3 (0.1-1.0); Monocytes % 8.8 % (1.7-9.3); Neutrophils % 53.7 % (37.0-80.0); Platelet Count 164 K/mm3 (142-424); Red Blood Count 3.37 M/mm3 (4.60-6.20); White Blood Count 3.7 K/mm3 (4.8-10.8)
[2021-08-17 06:05] LABS: Chloride 106 mmol/L (98-107); Potassium 3.8 mmoL/L (3.5-5.1); Sodium 135 mmol/L (136-145)
[2021-08-17 06:08] LABS: Amylase 52 U/L (30-110); Anion Gap 8.8 mEq/L (5-15); Blood Urea Nitrogen 3 mg/dl (9-20); Carbon Dioxide 24 mmol/L (22.0-30.0); Creatinine Clearance Estimated 116 mL/min (50-200); Estimated Glomerular Filt Rate 139 ml/min (>60); GFR (African American) 169 ML/MIN (>60); Lipase 118 U/L (23-300)
[2021-08-17 06:09] LABS: Glucose 104 mg/dl (74-100)
[2021-08-17 07:47] VITALS: BP 103/60; PULSE 63; RESP 16; TEMP 36.9; O2SAT 96
--- NOTE | 2021-08-17 09:31 | SW/DCPLANNER ---
The plan is for this patient to discharge home today. I discussed with patient drug/alcohol resources available and patient denied all resources at this time.
--- NOTE | 2021-08-17 10:24 | HMH.DCSUM ---
General - General Admission date:: 08/15/21 Discharge date: 08/17/21 HPI HPI: Patient presented back to the emergency department on 08/14/2021 with recurrent complaints of abdominal cramping, vomiting, possible coffee-ground emesis. PT states he was DC from [facility] floor on Friday. Admitted for elevated lipase of 626, hx chronic pancreatitis with cyst. general surgery consult for egd for poss gi bleed Hospital Course Hospital Course: Abnormal Lab Results 08/17/21 05:19: WBC 3.7 L D, RBC 3.37 L, Hgb 11.0 L, Hct 32.8 L, MCV 97.5 H, MCH 32.8 H 08/17/21 05:19: Sodium 135 L, BUN 3 L, Creatinine 0.60 L, Glucose 104 H, Calcium 8.0 L Procedure: Date: 08/15/21 Patient Date of :: 1965 Procedure Performed:: Esophagogastroduodenoscopy with biopsies Indications:: Asked to see this patient for possible gastritis . He is a 56-year-old male who had presented to the emergency department on 08/11/21 with greater than a several week long history of epigastric pain, symptoms consistent with possible coffee-ground emesis, and possible melena along with weight loss and some nausea. Work-up in the emergency department at that time revealed elevated lipase. He was admitted for inpatient management on 08/11/2021. Patient has a history of intermittent acute pancreatitis presumably related to heavy alcohol consumption. He also has a history of pancreatic pseudocyst. He has been seen in consultation by gastroenterology at [facility]. Hemoglobin was 13.6 on admission on 08/11/21. He did undergo an outpatient CT scan of the chest abdomen pelvis on 08/07/2021 without any contrast whatsoever which revealed cystic structure within the pancreatic bed, probably due to resolving pseudocyst. Mild changes of chronic pancreatitis. He had previously undergone laparoscopic cholecystectomy for symptomatic gallstones and pancreatitis. He had been admitted on 08/11/2021. Surgical consultation was obtained on 08/13/2021. It was felt that the majority of his symptoms may be secondary to his underlying pancreatic issues and he would ultimately need gastroenterology evaluation and input. Consideration was being given for EGD. Patient was discharged shortly after surgical consultation. His lipase had normalized to 114 on day of discharge (08/13/21). Patient presented back to the emergency department on 08/14/2021 with recurrent complaints of abdominal cramping, vomiting, possible coffee-ground emesis. He was found to have elevated lipase of 626. Hemoglobin is 12.3 which is essentially stable since 08/12/2021. Surgical consultation was ordered today. Performing Provider:: Parviz Trevino MD Referring Provider:: Deven Gates MD Sedation:: MAC sedation Procedure:: Patient was taken to endoscopy procedure room. He was positioned in lateral decubitus position. Adequate intravenous sedation was achieved with anesthesia titration of propofol. Olympus endoscope was inserted via the oropharynx. Esophagus was cannulated. Endoscope was advanced. Esophagus overall appeared normal. Gastroesophageal junction was encountered at approximately 39 cm from the incisors. Stomach was cannulated. There was some bilious liquid within the stomach which was suctioned free. Overall mucosa of the gastric lumen appeared unremarkable however in the proximal fundus there was a focal area of significant gastritis versus even possible neoplasm. Pylorus was traversed. Duodenum appeared unremarkable. Endoscope was able to be advanced a generous distance into the duodenum which appeared unremarkable. Endoscope was withdrawn into the stomach. Gastric antral mucosal biopsy was obtained. While performing retroflexion numerous cold biopsies were obtained of the area of inflammation in the proximal fundus. Stomach was desufflated and the endoscope was withdrawn. Findings:: Gastroesophageal junction at 39 cm from the incisors Area of significant inf
[2021-08-17 11:07] VITALS: BP 111/60; PULSE 69; RESP 16; TEMP 37; O2SAT 99
--- NOTE | 2021-08-17 11:10 | HMH.PHAINT ---
DISCHARGE MEDICATION COUNSELING PROVIDED. DISCUSSED THE NORCO AND DICYCLOMINE PRESCRIPTIONS THE PATIENT WILL BE SENT HOME WITH. DISCUSSED HOW TO TAKE (WITH FOOD) AND WHAT TO EXPECT (DRY EYES/MOUTH, DIZZINESS, WITH DICYCLOMINE, NAUSEA AND ONLY TAKE IF NEEDED FOR THE NORCO). PATIENT ENDORSED NO FURTHER QUESTIONS AT THIS TIME.
--- NOTE | 2021-08-20 14:27 | CARE MANAGER ---
CM called and spoke with patient r/t post discharge status. Patient states that he went for a f/u with Dr. Edgar today and does not have any known needs at this time.
[2021-08-22 13:43] LABS: Levetiracetam (Keppra) 13.4 ug/mL (10.0-40.0)
== END 2021-08-17 11:37 | disposition home or self-care (01) | DRG 440 ==
LOC: ER 18:19 → 2ND 19:44
PROVIDERS: Nurse Practitioner Family; Surgery; Admitting Provider Emergency Medicine; Emergency Provider Emergency Medicine; PCP Family Medicine; Visit Provider Family Medicine
PROC: 0DJ08ZZ Inspection of Upper Intestinal Tract, Via Natural or Artificial Opening Endoscopic (ICD-10-PCS; CPT 43235; principal; 2021-08-15 14:30)
DX: K85.20 Alcohol induced acute pancreatitis without necrosis or infection (principal); K86.1 Other chronic pancreatitis; J44.9 Chronic obstructive pulmonary disease, unspecified; F17.210 Nicotine dependence, cigarettes, uncomplicated; Z20.822 Contact with and (suspected) exposure to COVID-19; Z79.899 Other long term (current) drug therapy; E86.0 Dehydration; K92.9 Disease of digestive system, unspecified; Z88.1 Allergy status to other antibiotic agents; F32.A Depression, unspecified; K21.9 Gastro-esophageal reflux disease without esophagitis; R56.9 Unspecified convulsions; F10.10 Alcohol abuse, uncomplicated; F41.9 Anxiety disorder, unspecified
CPT/HCPCS: 43239; 36415; 80048; 80053; 80061; 80177; 81001; 82150; 83690; 85025; 85610; 86850; 88305; 96365; 96366; 96374; 96375; 99285; C9803; G0378; J2405; U0003; U0005

== ENCOUNTER 2021-09-07 10:14 | Inpatient (IN) | payer MEDICAID, SELFPAY ==
[2021-09-07] VITALS (13 sets, daily range): BP systolic 104–135; BP diastolic 62–78; PULSE 75–92; RESP 14–24; TEMP 36.6–37.1; O2SAT 96–100; BMI 19.8; BMI 19.4
--- NOTE | 2021-09-07 10:27 | ECG_ITS ---
APPROVED REPORT Exam: Resting ECG HR:86 bpm ECG Measurements Heart Rate 86 AXES FL 151 P 83 QRSd 87 QRS 83 QT 358 T 76 QTc 401 Conclusion SINUS RHYTHM NORMAL ECG UNCONFIRMED REPORT Electronically signed by : Nelson Regan MD 09/08/2021 12:13:11
--- NOTE | 2021-09-07 10:30 | XR_ITS ---
FINAL REPORT CLINICAL HISTORY: abd pain, nausea FINDINGS: SINGLE VIEW CHEST The heart size is enlarged. The mediastinum is within normal limits. The lungs are hyperinflated consistent with COPD. There is no acute process. There is no evidence of pneumothorax. The bony thorax is intact. IMPRESSION: No acute cardiopulmonary process. Hyperinflated lungs consistent with COPD. Reviewed, Interpreted and Dictated by Parviz Correa III, MD Transcribed by Kathleen Forbes Authenticated by Parviz Correa III, MD on 09/07/2021 11:14:06 AM [facility]
--- NOTE | 2021-09-07 10:31 | HMH.EDGENADL ---
ED Disposition Clinical Impression: Pancreatitis Qualifiers: Chronicity: acute Pancreatitis type: unspecified pancreatitis type Acute pancreatitis complication: no infection or necrosis Qualified Code(s): K85.90 - Acute pancreatitis without necrosis or infection, unspecified Hematemesis Qualifiers: Nausea presence: with nausea Qualified Code(s): K92.0 - Hematemesis Disposition: Admitted as Observation Condition on Discharge: [facility] - Critical Care Critical Care Time: No Attestation: On 09/07/21, the high probability of a clinically significant, sudden or life threatening deterioration of the following system(s) required my full and direct attention, intervention and personal management. The time I documented below is in addition to time spent performing reported procedures but includes the following listed in this critical care notation. Medical Decision Making - Medical Records Medical records reviewed: Yes: I reviewed the patient's medical records. MR Comment: Reviewed discharge summary from admission 08/15/2021 to 08/17/2021. Reviewed endoscopy results. No esophageal varices. Possible severe gastritis of the fundus versus neoplasm, biopsies negative. - [place] Inquiry Pt receiving controlled substance: No Vital Signs: 09/07/21 10:15 09/07/21 10:18 09/07/21 10:42 Temperature 97.8 F Temperature Source Oral Pulse Rate 86 87 Pulse Rate [Radial] 92 H Respiratory Rate 18 16 18 Blood Pressure 135/78 106/73 L Blood Pressure [Right Arm] 135/78 Blood Pressure Mean 111 84 Blood Pressure Mean [Right Arm] 97 Blood Pressure Position [Right Arm] Sitting 02 Sat by Pulse Oximetry 98 99 99 Oxygen Delivery Method Room Air 09/07/21 11:01 09/07/21 11:30 09/07/21 12:00 Temperature Temperature Source Pulse Rate 76 78 78 Pulse Rate [Radial] Respiratory Rate 24 24 21 Blood Pressure 112/75 125/77 123/77 Blood Pressure [Right Arm] Blood Pressure Mean 84 91 91 Blood Pressure Mean [Right Arm] Blood Pressure Position [Right Arm] 02 Sat by Pulse Oximetry 100 99 100 Oxygen Delivery Method 09/07/21 12:30 Temperature Temperature Source Pulse Rate 82 Pulse Rate [Radial] Respiratory Rate 21 Blood Pressure 108/66 L Blood Pressure [Right Arm] Blood Pressure Mean 80 Blood Pressure Mean [Right Arm] Blood Pressure Position [Right Arm] 02 Sat by Pulse Oximetry 99 Oxygen Delivery Method - Lab Data Lab Results 09/07/21 10:15: Urine Color Yellow, Urine Appearance Clear, Urine pH 8.5, Ur Specific [place] 1.010, Urine Protein Negative, Urine Glucose (UA) Negative, Urine Ketones Negative, Urine Blood Negative, Urine Nitrate Negative, Urine Bilirubin Negative, Urine Urobilinogen 0.2, Ur Leukocyte Esterase Negative, Ur Squamous Epith Cells Occasional, Amorphous Sediment Trace, Urine Bacteria Trace 09/07/21 10:36: WBC 6.3, RBC 3.97 L, Hgb 12.3 L, Hct 38.8 L, MCV 97.7 H, MCH 30.9, MCHC 31.7 L, RDW 14.8, Plt Count 218, MPV 9.1, Neut % (Auto) 70.8, Lymph % (Auto) 19.9, [place] % (Auto) 6.2, Eos % (Auto) 2.5, Baso % (Auto) 0.6, Neut # (Auto) 4.5, Lymph # (Auto) 1.3, [place] # (Auto) 0.4, Eos # (Auto) 0.2, Baso # (Auto) 0.0 09/07/21 10:36: Sodium 136, Potassium 4.5, Chloride 103, Carbon Dioxide 30, Anion Gap 7.5, BUN 5 L, Creatinine 0.80, Estimated Creat Clear 86, Estimated GFR 100, Est GFR ( Amer) 121, Glucose 117 H, Calcium 8.8, Total Bilirubin 0.6, AST 30, ALT 16, Alkaline Phosphatase 134 H, Total Protein 6.8, Albumin 3.8, Globulin 3.0, Albumin/Globulin Ratio 1.3, Lipase 991 H 09/07/21 11:35: SARS-CoV-2 (PCR) Not detected, Influenza A Untype (PCR) Not detected, Influenza Type B (PCR) Not detected Result diagrams: 09/07/21 10:36 09/07/21 10:36 Orders (Tests/Meds): ED MEDICATIONS Generic Name Dose Route Start Last Admin Trade Name Freq PRN Reason Stop Dose Admin Acetaminophen 650 mg 09/07/21 13:12 Acetaminophen 325mg Tab PO 10/07/21 13:11 Q4HP PRN Fever or Mild Pain [place]
[2021-09-07 10:42] LABS: Microscopic, Urine URINE MICROSCOPIC (MICROSCOPIC)
[2021-09-07 10:55] LABS: Basophils % 0.6 % (0.1-2.0); Eosinophils # 0.2 K/mm3 (0.0-0.4); Eosinophils % 2.5 % (0.1-12.0); Hematocrit 38.8 % (42.0-52.0); Hemoglobin 12.3 g/dL (14.1-18.0); Lymphocytes # 1.3 K/mm3 (0.7-4.5); Lymphocytes % 19.9 % (10-50); Mean Corpuscular HGB Conc 31.7 g/dL (31.8-35.4); Mean Corpuscular Hemoglobin 30.9 pg (27.0-31.2); Mean Corpuscular Volume 97.7 fl (80-94); Mean Platelet Volume 9.1 fl (7.4-10.4); Monocytes # 0.4 K/mm3 (0.1-1.0); Monocytes % 6.2 % (1.7-9.3); Neutrophils # 4.5 K/mm3 (1.8-7.8); Neutrophils % 70.8 % (37.0-80.0); Platelet Count 218 K/mm3 (142-424); Red Blood Count 3.97 M/mm3 (4.60-6.20); Red Cell Distribution Width 14.8 % (11.5-17.5); White Blood Count 6.3 K/mm3 (4.8-10.8)
[2021-09-07 10:59] LABS: Alanine Aminotransferase 16 U/L (12-78); Aspartate Amino Transferase 30 U/L (17-59); Blood Urea Nitrogen 5 mg/dl (9-20); Calcium 8.8 mg/dl (8.4-10.2); Carbon Dioxide 30 mmol/L (22.0-30.0); Creatinine Clearance Estimated 86 mL/min (50-200); Estimated Glomerular Filt Rate 100 ml/min (>60); GFR (African American) 121 ML/MIN (>60); Glucose 117 mg/dl (74-100)
[2021-09-07 11:01] LABS: Appearance,Urine CLEAR (Clear); Bilirubin,Urine Negative (Negative); Blood, Urine Negative (Negative); Color,Urine YELLOW (Yellow); Glucose,Urine (UA) Negative (Negative); Ketones,Urine Negative (Negative); Leukocyte Esterase,Urine Negative (Negative); Nitrate,Urine Negative (Negative); PH,Urine 8.5 (5.0-8.5); Protein,Urine Negative (Negative); Urobilinogen,Urine 0.2 EU/dl (0.2)
[2021-09-07 11:14] LABS: Amorphous Sediment,Urine Trace /lpf; Bacteria,Urine Trace /lpf; Squamous Epithelial Cell,Urine Occasional #/hpf (0-5)
[2021-09-07 11:25] LABS: Anion Gap 7.5 mEq/L (5-15); Chloride 103 mmol/L (98-107); Potassium 4.5 mmoL/L (3.5-5.1); Sodium 136 mmol/L (136-145)
[2021-09-07 11:28] LABS: Albumin Level 3.8 g/dl (3.5-5.0); Albumin/Globulin Ratio 1.3 (1.1-1.8); Alkaline Phosphatase 134 U/L (38-126); Bilirubin,Total 0.6 mg/dl (0.2-1.3); Total Protein,Serum 6.8 g/dl (6.3-8.2)
[2021-09-07 11:31] LABS: Lipase 991 U/L (23-300)
--- NOTE | 2021-09-07 11:31 | PC.NURSE ---
lab called with critical lipase 991 Dr Menard notified
[2021-09-07 11:43] LABS: Coronavirus 19, PCR Not Detected (NotDetected); Influenza A, PCR Not Detected (NotDetected); Influenza B, PCR Not Detected (NotDetected)
--- NOTE | 2021-09-07 11:51 | PC.NURSE ---
contacted Dr. Edgar office for admission per ER MD request, office staff states he is a room, will give him the message to call us back when his is finished.
--- NOTE | 2021-09-07 12:41 | PC.NURSE ---
KHALIF CHIRINOS speaking with Dr. Edgar.
--- NOTE | 2021-09-07 12:45 | PC.NURSE ---
has been called. will call back
--- NOTE | 2021-09-07 12:48 | PC.NURSE ---
rounded on pt at this time, pt was on the phone at the time, states no needs at this time. Notified pt ER MD is speaking with Dr. Edgar at this time for admission.
--- NOTE | 2021-09-07 13:08 | PC.NURSE ---
per second floor staff pt now assigned to room 201
--- NOTE | 2021-09-07 13:10 | PC.NURSE ---
report called to floor
--- NOTE | 2021-09-07 14:31 | HMH.GSCON ---
*Admission Date: 09/07/21 *Reason for consult:: Hematemesis *History of present illness: Patient is a 56-year-old male with history of heavy alcohol abuse who has a history of recurrent pancreatitis over several years. He does have a history of gallstones and as this was a complicating issue he underwent laparoscopic cholecystectomy 2 years ago. He was found to have what appeared to be cirrhosis of the liver. After his cholecystectomy he still continued to have bouts of pancreatitis, presumably alcohol induced. He had an admission on 08/11/2021 with epigastric pain and possible melena and pancreatitis. He was discharged a couple of days later. He returned to the emergency department due to recurrent symptoms on 08/14/2021 and was found to have elevated lipase at that time consistent with exacerbation of acute pancreatitis. He did undergo EGD during that admission at which time he was found to have an area of significant inflammation in the proximal fundus which was felt to either be focal severe gastritis versus neoplasm. Biopsies were consistent with fragmented fundic gland polyp . There was no notable evidence of any varices at that time. He was brought to the emergency department by EMS today, 09/07/21, with complaints of epigastric cramping abdominal pain for several days. He also stated he had vomited bright red blood x2 this morning. He denies recent alcohol intake. He has not noticed any obvious hematochezia or melena. Evaluation in the emergency department revealed elevated lipase. Hemoglobin is 12.3. It was 11 on discharge on 08/17/2021. BUN 5 with a creatinine of 0.8. He was admitted for inpatient management. Surgical consultation was obtained for the reported history of hematemesis. Patient has previously been seen by [facility] for his complicated pancreatitis. Since his last discharge she has seen Dr. Gage Puga, gastroenterology in [place], for his pseudocyst. Last imaging was done on 08/07/[address] scan of the pelvis which revealed cystic structure within the pancreatic head probably due to resolving pseudocyst. Mild changes of chronic pancreatitis. Review of Systems - Review of Systems Review of systems:: pertinent systems reviewed and negative unless documented below [facility] History I have reviewed the patient's past medical history: Yes Medical History: Reports:: Anxiety, Chronic Obstructive Pulmonary Disease (COPD), Depression, Gastroesophageal Reflux Disease(GERD), Hepatitis, Seizures Denies:: Cancer, Diabetes Mellitus Type 1, Diabetes Mellitus Type 2, Internal Pacemaker, MRSA *Have you ever received a pneumonia vaccine?: Yes *Have you received a flu vaccine this season?: No Other Medical History: Reports: Radiation Therapy, Sinus Problems. Denies: Blood Transfusion Reaction Other Surgeries: Yes: No Previous Surgery, Cholecystectomy, Other. No: Pacemaker Amputation: No Fractures: No - *Social History Smoking Status: Current every day smoker Tobacco Type: cigarettes # Packs/Day (cigarettes): 2 Alcohol Intake: current Alcohol Intake Frequency:: a few times a week Substance Use Type: denies use *Occupational Status:: disabled Housing: house Household Members: family *Travel in the last 8 weeks: None - Psychiatric History Pschychiatric History:: Reports:: Anxiety, Depression Family Hx:: Asthma, Bleeding Disorder Meds Home Medications Medication Instructions Recorded Confirmed Type albuterol sulfate 90 mcg/actuation 1 puff IH Q4HP PRN 11/25/19 09/07/21 History breath activated powder inhaler,sensor levetiracetam 500 mg tablet 500 mg PO BID #60 tab 02/13/21 09/07/21 Rx Lipase/Protease/Amylase [Montse Fuentes 2 cap PO TIDWMEAL 02/18/21 09/07/21 History 36,000 Unit Capsule] thiamine mononitrate (vit B1) 100 100 mg PO DAILY #90 tab 02/26/21 09/07/21 Rx mg tablet potassium chloride 10 mEq 10 meq PO DAILY #90 cap 03/27/21 09/07/21 Rx capsule,extended release Pantoprazole Sodium
[2021-09-07 15:10] LABS: Ethyl Alcohol < 10 mg/dl (0-10)
[2021-09-07 15:19] LABS: INR 1.04 (0.9-1.1); Prothrombin Time 11.7 seconds (10.1-12.5)
--- NOTE | 2021-09-07 15:26 | HMH.PHAVTE ---
[facility] Pharmacy VTE Monitoring - Patient Demographics Admission date: 09/07/21 Report Date: 09/07/21 Time: 15:26 Allergies/Adverse Reactions: Patient Allergies cephalexin [From Keflex] Allergy (Mild, Verified 08/20/21 10:38) Hives sulfamethoxazole [From BACTRIM] Allergy (Unknown, Verified 08/20/21 10:38) trimethoprim [From BACTRIM] Allergy (Unknown, Verified 08/20/21 10:38) Height: 1.73 m Weight: 58.088 kg Patient Problems: Current Active Problems (Last Updated 11/02/19 @ 14:48 by Richard Edgar MD) Hematemesis (Acute) Pancreatitis (Acute) - VTE Risk Labs: VTE Related Lab Results Hgb 12.3 g/dL (14.1-18.0) L 09/07/21 10:36 Hct 38.8 % (42.0-52.0) L 09/07/21 10:36 Plt Count 218 K/mm3 (142-424) 09/07/21 10:36 PT 11.7 seconds (10.1-12.5) 09/07/21 15:00 INR 1.04 (0.9-1.1) 09/07/21 15:00 BUN 5 mg/dl (9-20) L 09/07/21 10:36 Creatinine 0.80 mg/dl (0.66-1.25) 09/07/21 10:36 Estimated Creat Clear 86 mL/min (50-200) 09/07/21 10:36 Was VTE Risk Assessment Performed: Yes VTE Score: 4 VTE Risk Level: Low Risk Clinical Trial Participant: No - Prophylaxis VTE Prophylaxis Ordered?: Yes Types of VTE Prophylaxis: TEDS Knee High Location of Applied Device: Bilateral Lower Extremeties
--- NOTE | 2021-09-07 15:36 | HMH.PHAINT ---
MEDICATION RECONCILIATION COMPLETE USING MOST RECENT MD OFFICE VISIT (08/2021) AND EXTERNAL PHARMACY FILL HISTORY.
--- NOTE | 2021-09-07 17:08 | PC.NURSE ---
No complaints since admission other than abdominal cramping, patient receiving PRN medication as directed. Pt resting in bed at this time with no needs stated. VSS, call light in reach, will continue to monitor.
--- NOTE | 2021-09-07 18:56 | HMH.HP ---
*Admission Date: 09/07/21 *History of present illness: He was brought to the emergency department by EMS today, 09/07/21, with complaints of epigastric cramping abdominal pain for several days. He also stated he had vomited bright red blood x2 this morning. He denies recent alcohol intake. He has not noticed any obvious hematochezia or melena. Evaluation in the emergency department revealed elevated lipase. Hemoglobin is 12.3. It was 11 on discharge on 08/17/2021. BUN 5 with a creatinine of 0.8. He was admitted for inpatient management. Patient has history of heavy alcohol ingestion but has abstained for the last month or so. He is status post lap gallbladder last year, and cirrhosis was noted. Patient also has a history of pancreatic pseudocyst which by last imaging was thought to be resolving. Patient has seen Dr. Puga Patient underwent an EGD in late July during admission here. Findings included significant inflammation in the proximal fundus findings consistent with severe gastritis. Fundic gland polyp was noted on pathology report. Patient had complaints of mid epigastric pain, relieved with 1 dose of IV morphine. He is currently tolerating clear liquids and is comfortable. Palpation to the mid epigastrium continues to elicit. No palpable masses are evident. Patient has had no rectal bleeding or melanotic stools. [facility] History I have reviewed the patient's past medical history: Yes Medical History: Reports:: Anxiety, Chronic Obstructive Pulmonary Disease (COPD), Depression, Gastroesophageal Reflux Disease(GERD), Hepatitis, Seizures Denies:: Cancer, Diabetes Mellitus Type 1, Diabetes Mellitus Type 2, Internal Pacemaker, MRSA *Have you ever received a pneumonia vaccine?: Yes *Have you received a flu vaccine this season?: No Other Medical History: Reports: Radiation Therapy, Sinus Problems. Denies: Blood Transfusion Reaction Other Surgeries: Yes: No Previous Surgery, Cholecystectomy, Other. No: Pacemaker Amputation: No Fractures: No - *Social History Smoking Status: Current every day smoker Tobacco Type: cigarettes # Packs/Day (cigarettes): 3 Alcohol Intake: former Alcohol Intake Frequency:: a few times a week Substance Use Type: denies use *Occupational Status:: unemployed Housing: house Household Members: family *Travel in the last 8 weeks: None - Psychiatric History Pschychiatric History:: Reports:: Anxiety, Depression Family Hx:: Asthma, Bleeding Disorder Review of Systems - Constitutional Denies anorexia, Denies weight gain - Eyes Denies change in vision - ENT Denies abnormal hearing - *Cardiovascular Denies chest pain - *Respiratory Denies chest congestion - *Gastrointestinal Reports abdominal pain, Reports vomiting blood, Reports nausea, Denies black, tarry stools - *Genitourinary Denies difficulty urinating - *Musculoskeletal Denies abnormal walking - Integumentary/Breasts Denies yellowing of the skin - *Neurologic Denies behavioral changes - Psychiatric Denies behavioral changes - Endocrine Denies cold intolerance - Hematologic/Lymphatic Denies easy bleeding, Denies easy bruising - Allergic/Immunologic Denies hives Meds Home Medications Medication Instructions Recorded Confirmed Type albuterol sulfate 90 mcg/actuation 1 puff IH Q4HP PRN 11/25/19 09/07/21 History breath activated powder inhaler,sensor levetiracetam 500 mg tablet 500 mg PO BID #60 tab 02/13/21 09/07/21 Rx Lipase/Protease/Amylase [Creon Dr 2 cap PO TIDWMEAL 02/18/21 09/07/21 History 36,000 Unit Capsule] thiamine mononitrate (vit B1) 100 100 mg PO DAILY #90 tab 02/26/21 09/07/21 Rx mg tablet potassium chloride 10 mEq 10 meq PO DAILY #90 cap 03/27/21 09/07/21 Rx capsule,extended release Pantoprazole Sodium 40 mg PO DAILY 08/12/21 09/07/21 History lorazepam 2 mg tablet 2 mg PO TIDP PRN #90 tab 08/20/21 09/07/21 Rx prenat.vits,dank,[id number] 1 tab PO DAILY #90 tab 08/20/21
[2021-09-07 20:02] LABS: Eosinophils # 0.2 K/mm3 (0.0-0.4); Eosinophils % 3.8 % (0.1-12.0); Hematocrit 33.2 % (42.0-52.0); Lymphocytes # 1.6 K/mm3 (0.7-4.5); Lymphocytes % 35.5 % (10-50); Mean Corpuscular HGB Conc 32.6 g/dL (31.8-35.4); Mean Corpuscular Hemoglobin 31.9 pg (27.0-31.2); Mean Corpuscular Volume 97.8 fl (80-94); Mean Platelet Volume 8.7 fl (7.4-10.4); Monocytes # 0.3 K/mm3 (0.1-1.0); Monocytes % 5.6 % (1.7-9.3); Neutrophils # 2.5 K/mm3 (1.8-7.8); Neutrophils % 54.1 % (37.0-80.0); Platelet Count 178 K/mm3 (142-424); Red Blood Count 3.39 M/mm3 (4.60-6.20); Red Cell Distribution Width 14.8 % (11.5-17.5); White Blood Count 4.5 K/mm3 (4.8-10.8)
[2021-09-07 20:08] LABS: Hemoglobin 10.8 g/dL (14.1-18.0)
--- NOTE | 2021-09-08 02:58 | PC.NURSE ---
Pt resting in bed at this time no complaints thus far. VSS throughout shift, call light in reach, seizure precautions in place. Will continue to monitor.
[2021-09-08 04:00] VITALS: BP 106/48; PULSE 66; RESP 17; TEMP 36.6; O2SAT 92
[2021-09-08 05:00] VITALS: BMI 19.8
[2021-09-08 05:55] VITALS: PULSE 69; PULSE 71; O2SAT 96
--- NOTE | 2021-09-08 06:27 | P.PN_ITS ---
Subjective Narrative: When asked if the patient has had any more symptoms consistent with hematemesis he replies not yet . He wonders about going home. No melena or hematochezia. Progress Note: A&P (1) Hematemesis Status: Acute (2) Pancreatitis Status: Acute (3) Anxiety Status: Acute (4) GI bleed Status: Acute (5) History of lung cancer Status: Acute (6) Pancreatic pseudocyst Status: Acute (7) Vomiting Status: Acute Assessment and Plan for All Diagnoses:: Labs pending. CT scan ordered for today. Exam Vital signs and Labs for Last 24 Hours: Temp Pulse Resp BP Pulse Ox 97.9 F 69 17 106/48 L 96 09/08/21 04:00 09/08/21 05:55 09/08/21 04:00 09/08/21 04:00 09/08/21 05:55 Laboratory Results - last 24 hr 09/07/21 10:15: Urine Color Yellow, Urine Appearance Clear, Urine pH 8.5, Ur Specific [place] 1.010, Urine Protein Negative, Urine Glucose (UA) Negative, Urine Ketones Negative, Urine Blood Negative, Urine Nitrate Negative, Urine Bilirubin Negative, Urine Urobilinogen 0.2, Ur Leukocyte Esterase Negative, Ur Squamous Epith Cells Occasional, Amorphous Sediment Trace, Urine Bacteria Trace 09/07/21 10:36: WBC 6.3, RBC 3.97 L, Hgb 12.3 L, Hct 38.8 L, MCV 97.7 H, MCH 30.9, MCHC 31.7 L, RDW 14.8, Plt Count 218, MPV 9.1, Neut % (Auto) 70.8, Lymph % (Auto) 19.9, [place] % (Auto) 6.2, Eos % (Auto) 2.5, Baso % (Auto) 0.6, Neut # (Auto) 4.5, Lymph # (Auto) 1.3, [place] # (Auto) 0.4, Eos # (Auto) 0.2, Baso # (Auto) 0.0 09/07/21 10:36: Sodium 136, Potassium 4.5, Chloride 103, Carbon Dioxide 30, Anion Gap 7.5, BUN 5 L, Creatinine 0.80, Estimated Creat Clear 86, Estimated GFR 100, Est GFR ( Amer) 121, Glucose 117 H, Calcium 8.8, Total Bilirubin 0.6, AST 30, ALT 16, Alkaline Phosphatase 134 H, Total Protein 6.8, Albumin 3.8, Globulin 3.0, Albumin/Globulin Ratio 1.3, Lipase 991 H 09/07/21 10:36: Plasma/Serum Alcohol < 10 09/07/21 11:35: SARS-CoV-2 (PCR) Not detected, Influenza A Untype (PCR) Not detected, Influenza Type B (PCR) Not detected 09/07/21 15:00: PT 11.7, INR 1.04 09/07/21 19:54: WBC 4.5 L D, RBC 3.39 L, Hgb 10.8 L D, Hct 33.2 L, MCV 97.8 H, MCH 31.9 H, MCHC 32.6, RDW 14.8, Plt Count 178, MPV 8.7, Neut % (Auto) 54.1, Lymph % (Auto) 35.5, [place] % (Auto) 5.6, Eos % (Auto) 3.8, Baso % (Auto) 1.0, Neut # (Auto) 2.5, Lymph # (Auto) 1.6, [place] # (Auto) 0.3, Eos # (Auto) 0.2, Baso # (Auto) 0.0 I & O for Last 24 hours: Intake & Output 09/05/21 09/06/21 09/07/21 09/08/21 11:59 11:59 11:59 11:59 Intake Total 480 / 480 Output Total 975 / 975 Balance -495 / -495 Weight 130 lb 131 lb 3.2 oz - Constitutional no acute distress
[2021-09-08 07:19] LABS: Chloride 105 mmol/L (98-107); Potassium 3.7 mmoL/L (3.5-5.1); Sodium 134 mmol/L (136-145)
[2021-09-08 07:21] LABS: Blood Urea Nitrogen 5 mg/dl (9-20); Creatinine Clearance Estimated 99 mL/min (50-200); Estimated Glomerular Filt Rate 117 ml/min (>60); GFR (African American) 141 ML/MIN (>60)
[2021-09-08 07:22] LABS: Alanine Aminotransferase 15 U/L (12-78); Albumin Level 3.3 g/dl (3.5-5.0); Albumin/Globulin Ratio 1.3 (1.1-1.8); Alkaline Phosphatase 118 U/L (38-126); Anion Gap 8.7 mEq/L (5-15); Aspartate Amino Transferase 27 U/L (17-59); Bilirubin,Total 0.6 mg/dl (0.2-1.3); Calcium 8.3 mg/dl (8.4-10.2); Carbon Dioxide 24 mmol/L (22.0-30.0); Globulin 2.6 g/dL (1.3-3.2); Glucose 83 mg/dl (74-100); Lipase 225 U/L (23-300); Total Protein,Serum 5.9 g/dl (6.3-8.2)
[2021-09-08 07:39] LABS: Basophils % 0.3 % (0.1-2.0); Eosinophils # 0.2 K/mm3 (0.0-0.4); Eosinophils % 4.8 % (0.1-12.0); Hematocrit 31.3 % (42.0-52.0); Hemoglobin 10.8 g/dL (14.1-18.0); Lymphocytes # 1.5 K/mm3 (0.7-4.5); Mean Corpuscular HGB Conc 34.5 g/dL (31.8-35.4); Mean Corpuscular Hemoglobin 31.8 pg (27.0-31.2); Mean Corpuscular Volume 92.3 fl (80-94); Monocytes # 0.3 K/mm3 (0.1-1.0); Monocytes % 7.8 % (1.7-9.3); Neutrophils # 1.9 K/mm3 (1.8-7.8); Neutrophils % 49.2 % (37.0-80.0); Platelet Count 128 K/mm3 (142-424); Red Blood Count 3.39 M/mm3 (4.60-6.20); White Blood Count 3.9 K/mm3 (4.8-10.8)
[2021-09-08 07:40] VITALS: BP 108/61; PULSE 75; RESP 18; TEMP 36.7; O2SAT 97
--- NOTE | 2021-09-08 08:00 | CT_ITS ---
PROCEDURE INFORMATION: Exam: CT Abdomen With Contrast Exam date and time: 09/08/2021 8:02 AM Age: 56 years old Clinical indication: Abdominal pain; Generalized; Additional info: Pancreatitis TECHNIQUE: Imaging protocol: Computed tomography images of the abdomen with intravenous contrast. Radiation optimization: All CT scans at this facility use at least one of these dose optimization techniques: automated exposure control; mA and/or kV adjustment per patient size (includes targeted exams where dose is matched to clinical indication); or iterative reconstruction. Contrast material: ISOVUE; Contrast volume: 60 ml; Contrast route: IV; COMPARISON: CT ABDOMEN WO CON 08/07/2021 7:22 AM FINDINGS: Liver: Normal. No mass. Gallbladder and bile ducts: Cholecystectomy. Pancreas: Decreased size of the pseudocyst adjacent to the lesser curvature, now measuring approximately 4.0 x 3.3 cm, previously 6.3 x 3.7 cm. There is now a 1.4 cm pseudoaneurysm along the ventral margin of the pseudocyst, presumably arising from a branch of the left gastric artery (series 3, image 29 and series 1001, image 21). There is likely a small amount of hemorrhagic material within the pseudocyst. The pseudocyst also may be slightly less well-defined than on the prior exams. There are again changes of acute on chronic pancreatitis with some ill-defined fluid in the anterior pararenal space an adjacent to the gastric antrum. Spleen: Calcified splenic granulomas. Adrenals: Normal. No mass. Kidneys and ureters: No hydronephrosis. Left renal cyst. Stomach and bowel: Visualized stomach and bowel are unremarkable. No obstruction. No mucosal thickening. Intraperitoneal space: Unremarkable. No free air. No significant fluid collection. Arteries: See above. Lymph nodes: Unremarkable. No enlarged lymph nodes. Bones/joints: Unremarkable. No acute fracture. No dislocation. Soft tissues: Unremarkable. IMPRESSION: 1. Redemonstrated changes of acute on chronic pancreatitis. There is now a 1.4 cm pseudoaneurysm along the lesser curvature along the ventral margin of the pseudocyst. 2. The pseudocyst is mildly decreased size compared to prior as detailed above. COMMENTS: Consistent with the [employer]'s Incidental Findings Committee white paper (J Am Blair Radiol 2018): Any incidental renal lesion less than 1 cm or classified as too small to characterize, or any incidental cystic renal lesion characterized as simple-appearing, is likely benign. No follow-up imaging is recommended for these lesions per consensus recommendations based on imaging criteria.
--- NOTE | 2021-09-08 08:45 | PC.NURSE ---
notified operations accountant of CT results
[2021-09-08 09:55] VITALS: PULSE 79; PULSE 83; O2SAT 98
--- NOTE | 2021-09-08 09:55 | HMH.ACPN2 ---
Internal Medicine - PN: Subj *Date: 09/09/21 *Time: 01:42 Interval history: doing better and had ct this am - Exam Vital signs and Labs for Last 24 Hours: Temp Pulse Resp BP Pulse Ox 98.1 F 75 18 108/61 L 97 09/08/21 07:40 09/08/21 07:40 09/08/21 07:40 09/08/21 07:40 09/08/21 07:40 Laboratory Results - last 24 hr 09/07/21 10:15: Urine Color Yellow, Urine Appearance Clear, Urine pH 8.5, Ur Specific [place] 1.010, Urine Protein Negative, Urine Glucose (UA) Negative, Urine Ketones Negative, Urine Blood Negative, Urine Nitrate Negative, Urine Bilirubin Negative, Urine Urobilinogen 0.2, Ur Leukocyte Esterase Negative, Ur Squamous Epith Cells Occasional, Amorphous Sediment Trace, Urine Bacteria Trace 09/07/21 10:36: WBC 6.3, RBC 3.97 L, Hgb 12.3 L, Hct 38.8 L, MCV 97.7 H, MCH 30.9, MCHC 31.7 L, RDW 14.8, Plt Count 218, MPV 9.1, Neut % (Auto) 70.8, Lymph % (Auto) 19.9, [place] % (Auto) 6.2, Eos % (Auto) 2.5, Baso % (Auto) 0.6, Neut # (Auto) 4.5, Lymph # (Auto) 1.3, [place] # (Auto) 0.4, Eos # (Auto) 0.2, Baso # (Auto) 0.0 09/07/21 10:36: Sodium 136, Potassium 4.5, Chloride 103, Carbon Dioxide 30, Anion Gap 7.5, BUN 5 L, Creatinine 0.80, Estimated Creat Clear 86, Estimated GFR 100, Est GFR ( Amer) 121, Glucose 117 H, Calcium 8.8, Total Bilirubin 0.6, AST 30, ALT 16, Alkaline Phosphatase 134 H, Total Protein 6.8, Albumin 3.8, Globulin 3.0, Albumin/Globulin Ratio 1.3, Lipase 991 H 09/07/21 10:36: Plasma/Serum Alcohol < 10 09/07/21 11:35: SARS-CoV-2 (PCR) Not detected, Influenza A Untype (PCR) Not detected, Influenza Type B (PCR) Not detected 09/07/21 15:00: PT 11.7, INR 1.04 09/07/21 19:54: WBC 4.5 L D, RBC 3.39 L, Hgb 10.8 L D, Hct 33.2 L, MCV 97.8 H, MCH 31.9 H, MCHC 32.6, RDW 14.8, Plt Count 178, MPV 8.7, Neut % (Auto) 54.1, Lymph % (Auto) 35.5, [place] % (Auto) 5.6, Eos % (Auto) 3.8, Baso % (Auto) 1.0, Neut # (Auto) 2.5, Lymph # (Auto) 1.6, [place] # (Auto) 0.3, Eos # (Auto) 0.2, Baso # (Auto) 0.0 09/08/21 06:36: Sodium 134 L, Potassium 3.7, Chloride 105, Carbon Dioxide 24, Anion Gap 8.7, BUN 5 L, Creatinine 0.70, Estimated Creat Clear 99, Estimated GFR 117, Est GFR ( Amer) 141, Glucose 83 D, Calcium 8.3 L, Total Bilirubin 0.6, AST 27, ALT 15, Alkaline Phosphatase 118, Total Protein 5.9 L, Albumin 3.3 L D, Globulin 2.6, Albumin/Globulin Ratio 1.3, Lipase 225 09/08/21 07:18: WBC 3.9 L, RBC 3.39 L, Hgb 10.8 L, Hct 31.3 L, MCV 92.3, MCH 31.8 H, MCHC 34.5, RDW 14.0, Plt Count 128 L D, MPV 9.0, Neut % (Auto) 49.2, Lymph % (Auto) 38.0, [place] % (Auto) 7.8, Eos % (Auto) 4.8, Baso % (Auto) 0.3, Neut # (Auto) 1.9, Lymph # (Auto) 1.5, [place] # (Auto) 0.3, Eos # (Auto) 0.2, Baso # (Auto) 0.0 I & O for Last 24 hours: Intake & Output 09/05/21 09/06/21 09/07/21 09/08/21 11:59 11:59 11:59 11:59 Intake Total 720 / 720 Output Total 975 / 975 Balance -255 / -255 Weight 130 lb 131 lb 3.2 oz - Constitutional no acute distress, thin - *Routine HEENT Exam Head: Present: normocephalic Eye: Present: EOMI, PERRL ENT: Present: mucous membranes dry - *Routine Neck Exam Absent: JVD - *Routine Respiratory Exam Present: decreased breath sounds - *Routine Cardiovascular Exam Present: RRR, murmur - *Routine Abdominal Exam Present: soft. Absent: tenderness, distended - *Routine Extremities Exam Absent: edema, calf tenderness - *Routine Skin Exam Present: intact - *Routine Neurological Exam Present: alert, CN II-XII intact - Routine Psychiatric Exam Present: normal affect Assessment and Plan (1) Hematemesis Status: Acute Qualifiers: Nausea presence: with nausea Qualified Code(s): K92.0 - Hematemesis Category: Medical Code(s): K92.0 - Hematemesis (2) Pancreatitis Status: Acute Qualifiers: Chronicity: acute Pancreatitis type: unspecified pancreatitis type Acute pancreatitis complication: no infection or necrosis Qualified Code(s): K85.90 - Acute pancreatitis without necrosis or infecti
[2021-09-08 15:06] VITALS: BP 97/56; PULSE 70; RESP 17; TEMP 37.2; O2SAT 98
[2021-09-08 20:35] VITALS: BP 107/59; PULSE 68; RESP 20; TEMP 36.8; O2SAT 98
--- NOTE | 2021-09-09 04:05 | PC.NURSE ---
Pt A&O x 4. Pt has slept majority of my shift. Pt says his stomach is lathe tender at times, but has not needed pain medication this shift. Tolerating clear liquids well. Pt received one dose of Ativan thus far, no adverse effects noted. No reports of nausea or vomiting. IV infusing per order. Pt is voiding yellow urine per urinal with adequate output. Call light in reach. No needs at this time.
[2021-09-09 04:24] VITALS: BP 93/51; PULSE 63; RESP 20; TEMP 36.7; O2SAT 98
[2021-09-09 05:00] VITALS: BMI 43.4
[2021-09-09 07:33] VITALS: BP 107/64; PULSE 70; RESP 16; TEMP 36.7; O2SAT 98
[2021-09-09 07:46] LABS: Basophils % 0.5 % (0.1-2.0); Eosinophils # 0.2 K/mm3 (0.0-0.4); Eosinophils % 4.9 % (0.1-12.0); Hematocrit 30.3 % (42.0-52.0); Lymphocytes # 1.1 K/mm3 (0.7-4.5); Lymphocytes % 29.4 % (10-50); Mean Corpuscular HGB Conc 32.9 g/dL (31.8-35.4); Mean Corpuscular Hemoglobin 31.1 pg (27.0-31.2); Mean Corpuscular Volume 94.5 fl (80-94); Mean Platelet Volume 8.9 fl (7.4-10.4); Monocytes # 0.3 K/mm3 (0.1-1.0); Monocytes % 7.8 % (1.7-9.3); Neutrophils # 2.2 K/mm3 (1.8-7.8); Neutrophils % 57.4 % (37.0-80.0); Platelet Count 138 K/mm3 (142-424); Red Blood Count 3.21 M/mm3 (4.60-6.20); Red Cell Distribution Width 13.9 % (11.5-17.5); White Blood Count 3.8 K/mm3 (4.8-10.8)
[2021-09-09 07:56] LABS: Chloride 106 mmol/L (98-107); Sodium 135 mmol/L (136-145)
[2021-09-09 07:59] LABS: Alanine Aminotransferase 11 U/L (12-78); Albumin Level 3.1 g/dl (3.5-5.0); Albumin/Globulin Ratio 1.2 (1.1-1.8); Alkaline Phosphatase 94 U/L (38-126); Aspartate Amino Transferase 26 U/L (17-59); Bilirubin,Total 0.5 mg/dl (0.2-1.3); Blood Urea Nitrogen 6 mg/dl (9-20); Calcium 8.3 mg/dl (8.4-10.2); Carbon Dioxide 24 mmol/L (22.0-30.0); Creatinine Clearance Estimated 114 mL/min (50-200); Estimated Glomerular Filt Rate 117 ml/min (>60); GFR (African American) 141 ML/MIN (>60); Globulin 2.6 g/dL (1.3-3.2); Glucose 76 mg/dl (74-100); Lipase 98 U/L (23-300); Total Protein,Serum 5.7 g/dl (6.3-8.2)
--- NOTE | 2021-09-09 09:12 | HMH.GSPN ---
Subjective Narrative: Patient is without any new complaints. He had a CT scan yesterday which revealed findings of redemonstrated changes of acute on chronic pancreatitis. There is now a 1.4 cm pseudoaneurysm along the lesser curvature along the ventral margin of the pseudocyst. The pseudocyst is mildly decreased in size compared to prior . Patient's hemoglobin has been stable. He has normalized lipase. He is on clear liquids. No additional hematemesis. Progress Note: A&P (1) Hematemesis Status: Acute (2) Pancreatitis Status: Acute (3) Anxiety Status: Acute (4) GI bleed Status: Acute (5) History of lung cancer Status: Acute (6) Pancreatic pseudocyst Status: Acute (7) Vomiting Status: Acute Assessment and Plan for All Diagnoses:: Continue medical care. No indication for urgent EGD. Exam Vital signs and Labs for Last 24 Hours: Temp Pulse Resp BP Pulse Ox 98.0 F 70 16 107/64 L 98 09/09/21 07:33 09/09/21 07:33 09/09/21 07:33 09/09/21 07:33 09/09/21 07:33 Laboratory Results - last 24 hr 09/09/21 06:21: WBC 3.8 L, RBC 3.21 L, Hgb 10.0 L, Hct 30.3 L, MCV 94.5 H, MCH 31.1, MCHC 32.9, RDW 13.9, Plt Count 138 L, MPV 8.9, Neut % (Auto) 57.4, Lymph % (Auto) 29.4, [place] % (Auto) 7.8, Eos % (Auto) 4.9, Baso % (Auto) 0.5, Neut # (Auto) 2.2, Lymph # (Auto) 1.1, [place] # (Auto) 0.3, Eos # (Auto) 0.2, Baso # (Auto) 0.0 09/09/21 06:21: Sodium 135 L, Potassium 4.0, Chloride 106, Carbon Dioxide 24, Anion Gap 9.0, BUN 6 L, Creatinine 0.70, Estimated Creat Clear 114, Estimated GFR 117, Est GFR ( Amer) 141, Glucose 76, Calcium 8.3 L, Total Bilirubin 0.5, AST 26, ALT 11 L D, Alkaline Phosphatase 94, Total Protein 5.7 L, Albumin 3.1 L, Globulin 2.6, Albumin/Globulin Ratio 1.2, Lipase 98 I & O for Last 24 hours: Intake & Output 09/06/21 09/07/21 09/08/21 09/09/21 11:59 11:59 11:59 11:59 Intake Total 720 / 720 1740 / 1740 Output Total 975 / 975 1500 / 1500 Balance -255 / -255 240 / 240 Weight 130 lb 131 lb 3.2 oz 287 lb 0.67 oz - *Routine Abdominal Exam Present: soft
--- NOTE | 2021-09-09 10:41 | HMH.ACPN2 ---
Internal Medicine - PN: Subj *Date: 09/09/21 *Time: 10:41 Interval history: doing better-no bleeding - discussed with [facility] about abn ct Exam Vital signs and Labs for Last 24 Hours: Temp Pulse Resp BP Pulse Ox 98.0 F 70 16 107/64 L 98 09/09/21 07:33 09/09/21 07:33 09/09/21 07:33 09/09/21 07:33 09/09/21 07:33 Laboratory Results - last 24 hr 09/09/21 06:21: WBC 3.8 L, RBC 3.21 L, Hgb 10.0 L, Hct 30.3 L, MCV 94.5 H, MCH 31.1, MCHC 32.9, RDW 13.9, Plt Count 138 L, MPV 8.9, Neut % (Auto) 57.4, Lymph % (Auto) 29.4, [place] % (Auto) 7.8, Eos % (Auto) 4.9, Baso % (Auto) 0.5, Neut # (Auto) 2.2, Lymph # (Auto) 1.1, [place] # (Auto) 0.3, Eos # (Auto) 0.2, Baso # (Auto) 0.0 09/09/21 06:21: Sodium 135 L, Potassium 4.0, Chloride 106, Carbon Dioxide 24, Anion Gap 9.0, BUN 6 L, Creatinine 0.70, Estimated Creat Clear 114, Estimated GFR 117, Est GFR ( Amer) 141, Glucose 76, Calcium 8.3 L, Total Bilirubin 0.5, AST 26, ALT 11 L D, Alkaline Phosphatase 94, Total Protein 5.7 L, Albumin 3.1 L, Globulin 2.6, Albumin/Globulin Ratio 1.2, Lipase 98 I & O for Last 24 hours: Intake & Output 09/06/21 09/07/21 09/08/21 09/09/21 11:59 11:59 11:59 11:59 Intake Total 720 / 720 1740 / 1740 Output Total 975 / 975 1500 / 1500 Balance -255 / -255 240 / 240 Weight 130 lb 131 lb 3.2 oz 287 lb 0.67 oz - Constitutional no acute distress - *Routine HEENT Exam Head: Present: normocephalic Eye: Present: EOMI, PERRL ENT: Present: mucous membranes dry - *Routine Neck Exam Present: supple. Absent: JVD - *Routine Respiratory Exam Present: CTA bilaterally - *Routine Cardiovascular Exam Present: RRR, murmur - *Routine Abdominal Exam Present: soft, tenderness, other (no def bruit ). Absent: distended, rebound - *Routine Extremities Exam Present: full ROM - *Routine Skin Exam Present: intact - *Routine Neurological Exam Present: alert, CN II-XII intact - Routine Psychiatric Exam Present: normal affect Assessment and Plan (1) Hematemesis Status: Acute Qualifiers: Nausea presence: with nausea Qualified Code(s): K92.0 - Hematemesis Category: Medical Code(s): K92.0 - Hematemesis (2) Pancreatitis Status: Acute Qualifiers: Chronicity: acute Pancreatitis type: unspecified pancreatitis type Acute pancreatitis complication: no infection or necrosis Qualified Code(s): K85.90 - Acute pancreatitis without necrosis or infection, unspecified Category: Medical Code(s): K85.90 - Acute pancreatitis without necrosis or infection, unspecified (3) Anxiety Status: Acute Category: Medical Code(s): F41.9 - Anxiety disorder, unspecified (4) GI bleed Status: Acute Qualifiers: GI bleed type/associated pathology: unspecified gastrointestinal hemorrhage type Qualified Code(s): K92.2 - Gastrointestinal hemorrhage, unspecified Category: Medical Code(s): K92.2 - Gastrointestinal hemorrhage, unspecified (5) History of lung cancer Status: Acute Category: Medical Code(s): Z85.118 - Personal history of other malignant neoplasm of bronchus and lung (6) Pancreatic pseudocyst Status: Acute Category: Medical Code(s): K86.3 - Pseudocyst of pancreas (7) Vomiting Status: Acute Qualifiers: Vomiting type: unspecified Nausea presence: with nausea Category: Medical Code(s): R11.10 - Vomiting, unspecified (8) Pseudoaneurysm Status: Acute Category: Medical Code(s): I72.9 - Aneurysm of unspecified site
[2021-09-09 10:46] VITALS: BMI 19.8
--- NOTE | 2021-09-09 10:49 | HMH.DCSUM ---
General - General Admission date:: 09/07/21 Discharge date: 09/09/21 HPI HPI: He was brought to the emergency department by EMS today, 09/07/21, with complaints of epigastric cramping abdominal pain for several days. He also stated he had vomited bright red blood x2 this morning. He denies recent alcohol intake. He has not noticed any obvious hematochezia or melena. Evaluation in the emergency department revealed elevated lipase. Hemoglobin is 12.3. It was 11 on discharge on 08/17/2021. BUN 5 with a creatinine of 0.8. He was admitted for inpatient management. Patient has history of heavy alcohol ingestion but has abstained for the last month or so. He is status post lap gallbladder last year, and cirrhosis was noted. Patient also has a history of pancreatic pseudocyst which by last imaging was thought to be resolving. Patient has seen Dr. Puga Patient underwent an EGD in late July during admission here. Findings included significant inflammation in the proximal fundus findings consistent with severe gastritis. Fundic gland polyp was noted on pathology report. Patient had complaints of mid epigastric pain, relieved with 1 dose of IV morphine. He is currently tolerating clear liquids and is comfortable. Palpation to the mid epigastrium continues to elicit. No palpable masses are evident. Patient has had no rectal bleeding or melanotic stools. Hospital Course Hospital Course: pt with vomiting with episodes of blood with hx of pancreatitis and pancreatic pseudocyst and on current ct showed a new issue of gastric art pseudoaneurysm - pt was seen by surg -pt without any new complaints. He had a CT scan yesterday which revealed findings of redemonstrated changes of acute on chronic pancreatitis. There is now a 1.4 cm pseudoaneurysm along the lesser curvature along the ventral margin of the pseudocyst. The pseudocyst is mildly decreased in size compared to prior . Patient's hemoglobin has been stable. He has normalized lipase. He is on clear liquids. No additional hematemesis. pt was discussed with and will be transferred for care as the pt needs service not provided at [facility] on urgent basis Objective Vital signs: Temp Pulse Resp BP Pulse Ox 98.0 F 70 16 107/64 L 98 09/09/21 07:33 09/09/21 07:33 09/09/21 07:33 09/09/21 07:33 09/09/21 07:33 no acute distress, thin, cooperative - *Routine HEENT Exam Head: Present: normocephalic Eye: Present: EOMI, PERRL ENT: Present: mucous membranes moist - *Routine Neck Exam Absent: JVD - *Routine Respiratory Exam Present: CTA bilaterally - *Routine Cardiovascular Exam Present: RRR, murmur - *Routine Abdominal Exam Present: soft, tenderness, other (no bruit noted ). Absent: distended, rebound - *Routine Extremities Exam Absent: calf tenderness - *Routine Skin Exam Present: intact - *Routine Neurological Exam Present: alert, CN II-XII intact - Routine Psychiatric Exam Present: normal affect Results Labs on day of discharge: Labs from last 24 hours 09/09/21 09/09/21 06:21 06:21 WBC 3.8 L RBC 3.21 L Hgb 10.0 L Hct 30.3 L MCV 94.5 H MCH 31.1 MCHC 32.9 RDW 13.9 Plt Count 138 L MPV 8.9 Neut % (Auto) 57.4 Lymph % (Auto) 29.4 [place] % (Auto) 7.8 Eos % (Auto) 4.9 Baso % (Auto) 0.5 Neut # (Auto) 2.2 Lymph # (Auto) 1.1 [place] # (Auto) 0.3 Eos # (Auto) 0.2 Baso # (Auto) 0.0 Sodium 135 L Potassium 4.0 Chloride 106 Carbon Dioxide 24 Anion Gap 9.0 BUN 6 L Creatinine 0.70 Estimated Creat Clear 114 Estimated GFR 117 Est GFR ( Amer) 141 Glucose 76 Calcium 8.3 L Total Bilirubin 0.5 AST 26 ALT 11 L D Alkaline Phosphatase 94 Total Protein 5.7 L Albumin 3.1 L Globulin 2.6 Albumin/Globulin Ratio 1.2 Lipase 98 DS: Diagnosis - Discharge Diagnosis (1) Hematemesis Status: Acute (2) Pancreatitis Status: Acute (3)
--- NOTE | 2021-09-09 11:30 | PC.NURSE ---
Spoke with Franca BRUNSON. She spoke with Dr. Gates. Pt was accepted to , but we are waiting on a bed. I have told pt.
--- NOTE | 2021-09-09 11:31 | PC.NURSE ---
Attempted to change current IV that was placed via EMS. He refused stated that he did not want to be stuck again since this one is working fine. I told charge nurse.
[2021-09-09 15:02] VITALS: BP 103/60; PULSE 60; RESP 18; TEMP 36.7; O2SAT 99
--- NOTE | 2021-09-09 18:18 | PC.NURSE ---
Pt is starting to get combative in the fact that anything I ask him to do he has some sort of snarky comment. He is starting to have diarrhea, nausea, vomiting, and very agitated. I asked him when his last drink of alcohol was he got very irate and stated that he has not had a drink in over a month. I explained that I just wanted to make sure that he wasn't detoxing. He explained that it takes him a long time to detox so even though its been a month since his last drink he maybe detoxing anyways. He also is blaming the diarrhea on the clear liquid diet. He is still refusing to let me change the EMS IV since he is allergic to the IV tape. I offered to make a boarder with the tape he stated that he wasn't allergic to, and then place the IV tape over that he completely refused.
[2021-09-09 20:00] VITALS: BP 124/65; PULSE 64; RESP 20; TEMP 36.8; O2SAT 100
[2021-09-10 04:00] VITALS: BP 101/64; PULSE 69; RESP 18; TEMP 36.9; O2SAT 98
[2021-09-10 05:00] VITALS: BMI 19.9
--- NOTE | 2021-09-10 05:21 | PC.NURSE ---
Pt is A&O x 4. On room air, VSS. Pt has c/o abd cramps multiple times this shift. Medicating per MAR. Pt states he is so hungry but even when he has the clear liquids that he has been ordered he feels nauseous afterwards. Pt stated that he did vomit once right before shift change. Pt also states that he had one episode of diarrhea. BS active x 4, abd soft, but tender. IV infusing per order. No other complaints voiced at this time. Call light in reach.
[2021-09-10 08:00] VITALS: BP 117/63; PULSE 65; RESP 16; TEMP 36.7; O2SAT 97
--- NOTE | 2021-09-10 08:52 | HMH.ACPN2 ---
Internal Medicine - PN: Subj *Date: 09/10/21 *Time: 08:00 Interval history: pt states he did not sleep well last pm. Exam Vital signs and Labs for Last 24 Hours: Temp Pulse Resp BP Pulse Ox 98.4 F 69 18 101/64 L 98 09/10/21 04:00 09/10/21 04:00 09/10/21 04:00 09/10/21 04:00 09/10/21 04:00 I & O for Last 24 hours: Intake & Output 09/07/21 09/08/21 09/09/21 09/10/21 11:59 11:59 11:59 11:59 Intake Total 720 / 720 1740 / 1740 1440 / 1440 Output Total 975 / 975 1500 / 1500 150 / 150 Balance -255 / -255 240 / 240 1290 / 1290 Weight 130 lb 131 lb 3.2 oz 130 lb 8 oz 131 lb 9.6 oz - Constitutional no acute distress, thin - *Routine HEENT Exam Head: Present: normocephalic Eye: Present: PERRL ENT: Present: mucous membranes moist - *Routine Neck Exam Present: supple. Absent: lymphadenopathy - *Routine Respiratory Exam Present: CTA bilaterally - *Routine Cardiovascular Exam Present: RRR - *Routine Abdominal Exam Present: soft, normoactive bowel sounds, tenderness - *Routine Extremities Exam Absent: cyanosis, clubbing, edema - *Routine Skin Exam Present: warm. Absent: rash - *Routine Neurological Exam Present: alert, oriented X3 Assessment and Plan (1) Hematemesis Status: Acute Qualifiers: Nausea presence: with nausea Qualified Code(s): K92.0 - Hematemesis Category: Medical Code(s): K92.0 - Hematemesis (2) Pancreatitis Status: Acute Qualifiers: Chronicity: acute Pancreatitis type: unspecified pancreatitis type Acute pancreatitis complication: no infection or necrosis Qualified Code(s): K85.90 - Acute pancreatitis without necrosis or infection, unspecified Category: Medical Code(s): K85.90 - Acute pancreatitis without necrosis or infection, unspecified (3) Anxiety Status: Acute Category: Medical Code(s): F41.9 - Anxiety disorder, unspecified (4) GI bleed Status: Acute Qualifiers: GI bleed type/associated pathology: unspecified gastrointestinal hemorrhage type Qualified Code(s): K92.2 - Gastrointestinal hemorrhage, unspecified Category: Medical Code(s): K92.2 - Gastrointestinal hemorrhage, unspecified (5) History of lung cancer Status: Acute Category: Medical Code(s): Z85.118 - Personal history of other malignant neoplasm of bronchus and lung (6) Pancreatic pseudocyst Status: Acute Category: Medical Code(s): K86.3 - Pseudocyst of pancreas (7) Vomiting Status: Acute Qualifiers: Vomiting type: unspecified Nausea presence: with nausea Category: Medical Code(s): R11.10 - Vomiting, unspecified (8) Pseudoaneurysm Status: Acute Category: Medical Code(s): I72.9 - Aneurysm of unspecified site - Assessment and plan all Dx Assessment and Plan for all problems:: rounded with dr palomares all orders per dr smith waiting on bed at
--- NOTE | 2021-09-10 11:00 | PC.NURSE ---
[facility] called and got update on patient. no beds at this time.
[2021-09-10 12:00] VITALS: BP 104/54; PULSE 68; RESP 18; TEMP 36.6; O2SAT 100
--- NOTE | 2021-09-10 14:45 | PC.NURSE ---
patient has done well this shift. rings out as needed. independent in room. vitals stable. complaints of pain in abdomen described as a cramping sensation. tolerating diet okay. visiting with family.
--- NOTE | 2021-09-10 15:09 | PC.NURSE ---
educated patient on importance of changing iv every three days. at this time patient is refusing to have it changed out stating it works fine, noted dressing on iv was changed on 09/09.
[2021-09-10 16:00] VITALS: BP 102/64; PULSE 83; RESP 20; TEMP 36.7; O2SAT 100
[2021-09-10 20:00] VITALS: BP 99/62; PULSE 75; RESP 18; TEMP 36.7; O2SAT 98
--- NOTE | 2021-09-11 03:59 | PC.NURSE ---
Pt has rested well this shift. Pt has voiced no c/o of N/V or pain this shift. Abdomen is soft but tender. Pt has tolerated clear liquid diet with no complaints. Pt uses the urinal independently with 1,200ml in output thus far in shift. [facility] called @ 04:00 to be updated on pt's status, no bed available at this time.
[2021-09-11 04:00] VITALS: BP 101/57; PULSE 74; RESP 16; TEMP 36.7; O2SAT 98
[2021-09-11 08:00] VITALS: BP 101/59; PULSE 68; RESP 14; TEMP 37.1; O2SAT 99
[2021-09-11 08:05] LABS: Basophils % 0.5 % (0.1-2.0); Eosinophils # 0.3 K/mm3 (0.0-0.4); Eosinophils % 6.4 % (0.1-12.0); Hemoglobin 10.3 g/dL (14.1-18.0); Lymphocytes # 1.1 K/mm3 (0.7-4.5); Mean Corpuscular HGB Conc 33.4 g/dL (31.8-35.4); Mean Corpuscular Hemoglobin 32.9 pg (27.0-31.2); Mean Corpuscular Volume 98.5 fl (80-94); Mean Platelet Volume 9.3 fl (7.4-10.4); Monocytes # 0.3 K/mm3 (0.1-1.0); Neutrophils # 2.5 K/mm3 (1.8-7.8); Platelet Count 146 K/mm3 (142-424); Red Blood Count 3.14 M/mm3 (4.60-6.20); White Blood Count 4.2 K/mm3 (4.8-10.8)
[2021-09-11 08:06] LABS: Chloride 106 mmol/L (98-107); Sodium 136 mmol/L (136-145)
[2021-09-11 08:09] LABS: Blood Urea Nitrogen 5 mg/dl (9-20); Calcium 9.2 mg/dl (8.4-10.2); Carbon Dioxide 26 mmol/L (22.0-30.0); Creatinine Clearance Estimated 100 mL/min (50-200); Estimated Glomerular Filt Rate 117 ml/min (>60); GFR (African American) 141 ML/MIN (>60); Glucose 111 mg/dl (74-100)
--- NOTE | 2021-09-11 10:08 | HMH.ACPN2 ---
Internal Medicine - PN: Subj *Date: 09/11/21 *Time: 18:56 Interval history: 56-year-old male patient sitting up in bed resting quietly tolerating full liquid breakfast without any difficulties. He does report of generalized abdominal tenderness no more hematemesis since before ER and denies liquid stools. Discussed patient's status with Dr. Branham attending [facility] , he reports he would keep patient until transfer due to extreme possibilities of ruptured pseudoaneurysm. Dr. Morton from a transfer station reports he will reevaluate patient and try to expedite transfer. Patient aware of conversation as he was requesting to be discharged home and he states he will stay and be transferred to [facility] Exam Vital signs and Labs for Last 24 Hours: Temp Pulse Resp BP Pulse Ox 98.7 F 68 14 101/59 L 99 09/11/21 08:00 09/11/21 08:00 09/11/21 08:00 09/11/21 08:00 09/11/21 08:00 Laboratory Results - last 24 hr 09/11/21 07:25: WBC 4.2 L, RBC 3.14 L, Hgb 10.3 L, Hct 31.0 L, MCV 98.5 H, MCH 32.9 H, MCHC 33.4, RDW 15.0, Plt Count 146, MPV 9.3, Neut % (Auto) 58.0, Lymph % (Auto) 27.0, [place] % (Auto) 8.0, Eos % (Auto) 6.4, Baso % (Auto) 0.5, Neut # (Auto) 2.5, Lymph # (Auto) 1.1, [place] # (Auto) 0.3, Eos # (Auto) 0.3, Baso # (Auto) 0.0 09/11/21 07:25: Sodium 136, Potassium 4.0, Chloride 106, Carbon Dioxide 26, Anion Gap 8.0, BUN 5 L, Creatinine 0.70, Estimated Creat Clear 100, Estimated GFR 117, Est GFR ( Amer) 141, Glucose 111 H, Calcium 9.2 I & O for Last 24 hours: Intake & Output 09/08/21 09/09/21 09/10/21 09/11/21 23:59 23:59 23:59 23:59 Intake Total 1200 / 1200 1620 / 1620 3368 / 3368 626 / 626 Output Total 1625 / 1775 600 / 750 2100 / 2500 1000 / 1000 Balance -425 / -575 1020 / 870 1268 / 868 -374 / -374 Weight 131 lb 3.2 oz 130 lb 8 oz 131 lb 9.6 oz 131 lb 14.4 oz - Constitutional no acute distress, chronically ill appearing - *Routine Neck Exam Present: trachea midline. Absent: tracheal deviation - *Routine Respiratory Exam Present: CTA bilaterally. Absent: accessory muscle use - *Routine Cardiovascular Exam Present: RRR - *Routine Abdominal Exam Present: soft, normoactive bowel sounds, tenderness - *Routine Extremities Exam Present: full ROM, pulses intact. Absent: cyanosis, clubbing - *Routine Skin Exam Present: intact, dry. Absent: cyanosis, erythema - *Routine Neurological Exam Present: alert, oriented X3. Absent: motor deficit - Routine Psychiatric Exam Present: normal affect, normal thought process. Absent: auditory hallucinations Assessment and Plan (1) Hematemesis Status: Acute Qualifiers: Nausea presence: with nausea Qualified Code(s): K92.0 - Hematemesis Category: Medical Code(s): K92.0 - Hematemesis (2) Pancreatitis Status: Acute Qualifiers: Chronicity: acute Pancreatitis type: unspecified pancreatitis type Acute pancreatitis complication: no infection or necrosis Qualified Code(s): K85.90 - Acute pancreatitis without necrosis or infection, unspecified Category: Medical Code(s): K85.90 - Acute pancreatitis without necrosis or infection, unspecified (3) Anxiety Status: Acute Category: Medical Code(s): F41.9 - Anxiety disorder, unspecified (4) GI bleed Status: Acute Qualifiers: GI bleed type/associated pathology: unspecified gastrointestinal hemorrhage type Qualified Code(s): K92.2 - Gastrointestinal hemorrhage, unspecified Category: Medical Code(s): K92.2 - Gastrointestinal hemorrhage, unspecified (5) History of lung cancer Status: Acute Category: Medical Code(s): Z85.118 - Personal history of other malignant neoplasm of bronchus and lung (6) Pancreatic pseudocyst Status: Acute Category: Medical Code(s): K86.3 - Pseudocyst of pancreas (7) Vomiting Status: Acute Qualifiers: Vomiting type: unspecified Nausea presence: with nausea Category: Medical Code(s): R11.10 - Vomiti
--- NOTE | 2021-09-11 14:34 | PC.NURSE ---
patient has done well this shift sleeping off and on. has had no complaints. rings out as needed. patient continues to wait on bed for [facility]. tolerating liquids well.
[2021-09-11 16:00] VITALS: BP 85/56; PULSE 71; RESP 15; TEMP 36.5; O2SAT 99
[2021-09-11 20:00] VITALS: BP 100/59; PULSE 69; RESP 16; TEMP 36.3; O2SAT 100
[2021-09-12 04:00] VITALS: BP 115/60; PULSE 72; RESP 16; TEMP 36.6; O2SAT 95
[2021-09-12 05:00] VITALS: BMI 19.9
--- NOTE | 2021-09-12 05:18 | PC.NURSE ---
pt has rested intermittently t/o shift, has complained of pain one time and was treated per JUL, remains on room air with O2 sats 95-100%
[2021-09-12 06:02] VITALS: PULSE 65; PULSE 70; O2SAT 98
[2021-09-12 07:23] LABS: Chloride 104 mmol/L (98-107); Potassium 3.8 mmoL/L (3.5-5.1); Sodium 136 mmol/L (136-145)
[2021-09-12 07:26] LABS: Anion Gap 9.8 mEq/L (5-15); Blood Urea Nitrogen 7 mg/dl (9-20); Calcium 9.3 mg/dl (8.4-10.2); Carbon Dioxide 26 mmol/L (22.0-30.0); Creatinine Clearance Estimated 99 mL/min (50-200); Estimated Glomerular Filt Rate 117 ml/min (>60); GFR (African American) 141 ML/MIN (>60); Glucose 120 mg/dl (74-100)
[2021-09-12 07:34] LABS: Basophils % 0.4 % (0.1-2.0); Eosinophils # 0.2 K/mm3 (0.0-0.4); Eosinophils % 6.3 % (0.1-12.0); Hematocrit 32.4 % (42.0-52.0); Hemoglobin 10.5 g/dL (14.1-18.0); Lymphocytes # 1.4 K/mm3 (0.7-4.5); Lymphocytes % 42.9 % (10-50); Mean Corpuscular HGB Conc 32.4 g/dL (31.8-35.4); Mean Corpuscular Hemoglobin 31.1 pg (27.0-31.2); Mean Corpuscular Volume 96.2 fl (80-94); Mean Platelet Volume 9.2 fl (7.4-10.4); Monocytes # 0.2 K/mm3 (0.1-1.0); Monocytes % 5.9 % (1.7-9.3); Neutrophils # 1.5 K/mm3 (1.8-7.8); Neutrophils % 44.5 % (37.0-80.0); Platelet Count 123 K/mm3 (142-424); Red Blood Count 3.37 M/mm3 (4.60-6.20); Red Cell Distribution Width 14.2 % (11.5-17.5); White Blood Count 3.3 K/mm3 (4.8-10.8)
[2021-09-12 08:00] VITALS: BP 100/60; PULSE 81; RESP 17; TEMP 36.6; O2SAT 100
--- NOTE | 2021-09-12 09:06 | HMH.ACPN2 ---
Internal Medicine - PN: Subj *Date: 09/12/21 *Time: 09:25 Interval history: pt with nausea - no melena- - labs stable - awaiting [facility] transfer Exam Vital signs and Labs for Last 24 Hours: Temp Pulse Resp BP Pulse Ox 97.9 F 81 17 100/60 L 100 09/12/21 08:00 09/12/21 08:00 09/12/21 08:00 09/12/21 08:00 09/12/21 08:00 Laboratory Results - last 24 hr 09/12/21 07:05: WBC 3.3 L, RBC 3.37 L, Hgb 10.5 L, Hct 32.4 L, MCV 96.2 H, MCH 31.1, MCHC 32.4, RDW 14.2, Plt Count 123 L, MPV 9.2, Neut % (Auto) 44.5, Lymph % (Auto) 42.9, [place] % (Auto) 5.9, Eos % (Auto) 6.3, Baso % (Auto) 0.4, Neut # (Auto) 1.5 L, Lymph # (Auto) 1.4, [place] # (Auto) 0.2, Eos # (Auto) 0.2, Baso # (Auto) 0.0 09/12/21 07:05: Sodium 136, Potassium 3.8, Chloride 104, Carbon Dioxide 26, Anion Gap 9.8, BUN 7 L D, Creatinine 0.70, Estimated Creat Clear 99, Estimated GFR 117, Est GFR ( Amer) 141, Glucose 120 H, Calcium 9.3 I & O for Last 24 hours: Intake & Output 09/09/21 09/10/21 09/11/21 09/12/21 11:59 11:59 11:59 11:59 Intake Total 1740 / 1740 1920 / 1920 2914 / 2914 2733 / 2733 Output Total 1500 / 1500 800 / 1100 2300 / 2300 1150 / 1150 Balance 240 / 240 1120 / 820 614 / 614 1583 / 1583 Weight 130 lb 8 oz 131 lb 9.6 oz 131 lb 14.4 oz 131 lb 6.4 oz - Constitutional no acute distress - *Routine HEENT Exam Head: Present: normocephalic Eye: Present: EOMI, PERRL ENT: Present: mucous membranes dry - *Routine Neck Exam Present: supple - *Routine Respiratory Exam Present: decreased breath sounds - *Routine Cardiovascular Exam Present: RRR, murmur - *Routine Abdominal Exam Present: soft - *Routine Extremities Exam Present: edema - *Routine Skin Exam Present: intact - *Routine Neurological Exam Present: alert, CN II-XII intact - Routine Psychiatric Exam Present: normal affect Assessment and Plan (1) Hematemesis Status: Acute Qualifiers: Nausea presence: with nausea Qualified Code(s): K92.0 - Hematemesis Category: Medical Code(s): K92.0 - Hematemesis (2) Pancreatitis Status: Acute Qualifiers: Chronicity: acute Pancreatitis type: unspecified pancreatitis type Acute pancreatitis complication: no infection or necrosis Qualified Code(s): K85.90 - Acute pancreatitis without necrosis or infection, unspecified Category: Medical Code(s): K85.90 - Acute pancreatitis without necrosis or infection, unspecified (3) Anxiety Status: Acute Category: Medical Code(s): F41.9 - Anxiety disorder, unspecified (4) GI bleed Status: Acute Qualifiers: GI bleed type/associated pathology: unspecified gastrointestinal hemorrhage type Qualified Code(s): K92.2 - Gastrointestinal hemorrhage, unspecified Category: Medical Code(s): K92.2 - Gastrointestinal hemorrhage, unspecified (5) History of lung cancer Status: Acute Category: Medical Code(s): Z85.118 - Personal history of other malignant neoplasm of bronchus and lung (6) Pancreatic pseudocyst Status: Acute Category: Medical Code(s): K86.3 - Pseudocyst of pancreas (7) Vomiting Status: Acute Qualifiers: Vomiting type: unspecified Nausea presence: with nausea Category: Medical Code(s): R11.10 - Vomiting, unspecified (8) Pseudoaneurysm Status: Acute Category: Medical Code(s): I72.9 - Aneurysm of unspecified site
--- NOTE | 2021-09-12 13:28 | PC.NURSE ---
[facility] called to update on bed status, no beds available at this time. She said she will call back with daily for updates.
--- NOTE | 2021-09-12 14:36 | PC.NURSE ---
Pt is alert and oriented x4. Abdomen is soft and tender. He's complained of abdominal cramping. Morphine administered x1 with relief noted on reassessment. Tolerating clear liquid diet. He's ambulated in his room independently. He states last BM was 2 days ago, he feels like he might be able to do something but hasn't had any luck yet . Nicotine patch requested. No complaints other than abdominal cramping. Bed is locked in the lowest position, call light within reach.
[2021-09-12 15:00] VITALS: BP 106/50; PULSE 57; RESP 18; TEMP 36.8; O2SAT 92
[2021-09-12 20:00] VITALS: BP 108/64; PULSE 69; RESP 17; TEMP 36.6; O2SAT 100
[2021-09-13 05:00] VITALS: BP 109/48; PULSE 69; RESP 17; TEMP 36.6; O2SAT 99; BMI 19.7
[2021-09-13 07:28] LABS: Chloride 103 mmol/L (98-107)
[2021-09-13 07:29] LABS: Potassium 4.4 mmoL/L (3.5-5.1); Sodium 134 mmol/L (136-145)
[2021-09-13 07:31] LABS: Blood Urea Nitrogen 4 mg/dl (9-20); Creatinine Clearance Estimated 115 mL/min (50-200); Estimated Glomerular Filt Rate 139 ml/min (>60); GFR (African American) 169 ML/MIN (>60)
[2021-09-13 07:32] LABS: Anion Gap 9.4 mEq/L (5-15); Calcium 9.5 mg/dl (8.4-10.2); Carbon Dioxide 26 mmol/L (22.0-30.0); Glucose 103 mg/dl (74-100)
[2021-09-13 08:00] VITALS: BP 112/61; PULSE 64; RESP 19; TEMP 36.8; O2SAT 100
--- NOTE | 2021-09-13 08:40 | PC.NURSE ---
CALLED [facility] TO CHECK ON STATUS OF BED. STILL NO BED AVAILABLE AT THIS TIME BUT PT IS A HIGH PRIORITY PER [facility] STAFF
--- NOTE | 2021-09-13 09:01 | HMH.ACPN2 ---
Internal Medicine - PN: Subj *Date: 09/13/21 *Time: 09:01 Interval history: pt with nausea but no bleeding -awaiting transfer Exam Vital signs and Labs for Last 24 Hours: Temp Pulse Resp BP Pulse Ox 98.2 F 64 19 112/61 100 09/13/21 08:00 09/13/21 08:00 09/13/21 08:00 09/13/21 08:00 09/13/21 08:00 Laboratory Results - last 24 hr 09/13/21 07:06: Sodium 134 L, Potassium 4.4, Chloride 103, Carbon Dioxide 26, Anion Gap 9.4, BUN 4 L D, Creatinine 0.60 L, Estimated Creat Clear 115, Estimated GFR 139, Est GFR ( Amer) 169, Glucose 103 H, Calcium 9.5 I & O for Last 24 hours: Intake & Output 09/10/21 09/11/21 09/12/21 09/13/21 11:59 11:59 11:59 11:59 Intake Total 1920 / 1920 2914 / 2914 2733 / 2733 1562 / 1562 Output Total 800 / 1100 2300 / 2300 1450 / 1450 1100 / 1100 Balance 1120 / 820 614 / 614 1283 / 1283 462 / 462 Weight 131 lb 9.6 oz 131 lb 14.4 oz 131 lb 6.4 oz 130 lb - Constitutional no acute distress - *Routine HEENT Exam Head: Present: normocephalic Eye: Present: EOMI, PERRL ENT: Present: mucous membranes dry - *Routine Neck Exam Present: supple - *Routine Respiratory Exam Present: CTA bilaterally - *Routine Cardiovascular Exam Present: RRR - *Routine Abdominal Exam Present: soft - *Routine Extremities Exam Present: full ROM - *Routine Skin Exam Present: intact - *Routine Neurological Exam Present: alert, CN II-XII intact - Routine Psychiatric Exam Present: normal affect Assessment and Plan (1) Hematemesis Status: Acute Qualifiers: Nausea presence: with nausea Qualified Code(s): K92.0 - Hematemesis Category: Medical Code(s): K92.0 - Hematemesis (2) Pancreatitis Status: Acute Qualifiers: Chronicity: acute Pancreatitis type: unspecified pancreatitis type Acute pancreatitis complication: no infection or necrosis Qualified Code(s): K85.90 - Acute pancreatitis without necrosis or infection, unspecified Category: Medical Code(s): K85.90 - Acute pancreatitis without necrosis or infection, unspecified (3) Anxiety Status: Acute Category: Medical Code(s): F41.9 - Anxiety disorder, unspecified (4) GI bleed Status: Acute Qualifiers: GI bleed type/associated pathology: unspecified gastrointestinal hemorrhage type Qualified Code(s): K92.2 - Gastrointestinal hemorrhage, unspecified Category: Medical Code(s): K92.2 - Gastrointestinal hemorrhage, unspecified (5) History of lung cancer Status: Acute Category: Medical Code(s): Z85.118 - Personal history of other malignant neoplasm of bronchus and lung (6) Pancreatic pseudocyst Status: Acute Category: Medical Code(s): K86.3 - Pseudocyst of pancreas (7) Vomiting Status: Acute Qualifiers: Vomiting type: unspecified Nausea presence: with nausea Category: Medical Code(s): R11.10 - Vomiting, unspecified (8) Pseudoaneurysm Status: Acute Category: Medical Code(s): I72.9 - Aneurysm of unspecified site
[2021-09-13 09:54] LABS: Red Blood Count 3.33 M/mm3 (4.60-6.20)
[2021-09-13 09:58] LABS: Hematocrit 30.9 % (42.0-52.0); Hemoglobin 10.5 g/dL (14.1-18.0); Mean Corpuscular Volume 92.8 fl (80-94)
[2021-09-13 09:59] LABS: Basophils % 0.9 % (0.1-2.0); Eosinophils % 5.1 % (0.1-12.0); Lymphocytes # 1.1 K/mm3 (0.7-4.5); Lymphocytes % 24.3 % (10-50); Mean Corpuscular Hemoglobin 31.5 pg (27.0-31.2); Mean Platelet Volume 12.6 fl (7.4-10.4); Monocytes # 0.3 K/mm3 (0.1-1.0); Monocytes % 7.6 % (1.7-9.3); Neutrophils # 2.7 K/mm3 (1.8-7.8); Neutrophils % 61.9 % (37.0-80.0); Platelet Count 131 K/mm3 (142-424); Red Cell Distribution Width 14.2 % (11.5-17.5)
[2021-09-13 10:06] LABS: Eosinophils # 0.2 K/mm3 (0.0-0.4)
[2021-09-13 10:08] LABS: White Blood Count 4.3 K/mm3 (4.8-10.8)
--- NOTE | 2021-09-13 12:15 | PC.NURSE ---
RECEIVED CALL FROM [facility]. PT WILL HAVE BED TODAY AND FACILITY WILL CALL WHEN BED IS OFFICIALLY ASSIGNED.
--- NOTE | 2021-09-13 15:30 | PC.NURSE ---
PT CALLED OUT AND STATED HE WAS VOMITING. THIS RN ENTERED ROOM AND WITNESSED KIRA RED BLOOD IN TRASH CAN. PT WAS GIVEN PRN DOSE OF MORPHINE PER AND ZOFRAN PER MAR. MD SHEIKH WAS MADE AWARE AND ORDERED STAT H/H. FACILITY WAS ALSO CONTACTED IN CASE NEW FINDINGS WOULD AFFECT LEVEL OF CARE. STAFF STATED THAT PATIENT WAS NOW A HIGHER PRIORITY AND GAVE PT BED ASSIGNMENT AND THIS RN NUMBER TO CALL REPORT. REPORT WAS IMMEDIATELY CALLED TO JAYME DECKER RN AT [facility] AND EMS WAS CONTACTED FOR TRANSPORT. EMS HAD ANOTHER TRANSPORT BEFORE THIS ONE AND TOLD THIS RN THEY WOULD TAKE PT ONCE THEY RETURN FROM TRANSPORTING ANOTHER PT THAT WAS HIGHER ACUITY.
--- NOTE | 2021-09-13 15:33 | DIET.NUTRFU ---
Patient continues on clear liquids, waiting for transfer to [facility]. 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 At this time he is tolerating clear liquids, still c/o some nausea. Started boost clear to help caloric needs- he is at risk for weight loss d/t minimal calories taken in. Na 134L, continues on IVF. Wt stable at 59kg. Multiple vitamin are also in place secondary to PMH. RD will continue to follow
[2021-09-13 15:42] LABS: Hematocrit 36.4 % (42.0-52.0)
[2021-09-13 15:48] LABS: Hemoglobin 12.3 g/dL (14.1-18.0)
[2021-09-13 16:00] VITALS: BP 124/68; PULSE 70; RESP 16; TEMP 36.7; O2SAT 98
--- NOTE | 2021-09-13 19:02 | PC.NURSE ---
Pt leaving for with EMS at this time
== END 2021-09-13 19:03 | disposition short-term general hospital (02) | DRG 439 ==
LOC: ER 12:45 → 2ND 13:08
PROVIDERS: Emergency Medicine; Nurse Practitioner Family; Surgery; Admitting Provider Family Medicine; Emergency Provider Emergency Medicine; PCP Family Medicine; Visit Provider Family Medicine
DX: K85.90 Acute pancreatitis without necrosis or infection, unspecified (principal); K92.0 Hematemesis; K86.3 Pseudocyst of pancreas; Z20.822 Contact with and (suspected) exposure to COVID-19; F41.9 Anxiety disorder, unspecified; Z85.118 Personal history of other malignant neoplasm of bronchus and lung; I72.8 Aneurysm of other specified arteries
CPT/HCPCS: 36415; 71045; 74160; 80048; 80053; 81001; 83690; 85014; 85018; 85025; 85610; 93005; 94640; 96375; 99285; C9803; J2405; Q9967; U0003; U0005

== ENCOUNTER → 2021-09-27 19:14 | Outpatient (CLI) | payer MEDICAID, SELFPAY ==
[2021-09-27 13:29] LABS: Basophils # 0.1 K/mm3 (0-0.2); Eosinophils # 0.3 K/mm3 (0.0-0.4); Eosinophils % 4.4 % (0.1-12.0); Hematocrit 32.8 % (42.0-52.0); Hemoglobin 10.8 g/dL (14.1-18.0); Lymphocytes # 1.6 K/mm3 (0.7-4.5); Lymphocytes % 27.4 % (10-50); Mean Corpuscular Hemoglobin 33.1 pg (27.0-31.2); Mean Corpuscular Volume 100.2 fl (80-94); Mean Platelet Volume 9.8 fl (7.4-10.4); Monocytes # 0.4 K/mm3 (0.1-1.0); Monocytes % 6.1 % (1.7-9.3); Neutrophils # 3.6 K/mm3 (1.8-7.8); Neutrophils % 61.1 % (37.0-80.0); Platelet Count 281 K/mm3 (142-424); Red Blood Count 3.27 M/mm3 (4.60-6.20); Red Cell Distribution Width 14.7 % (11.5-17.5); White Blood Count 5.9 K/mm3 (4.8-10.8)
[2021-09-27 13:35] LABS: Lipase 532 U/L (23-300)
== END ==
PROVIDERS: Visit Provider Family Medicine
DX: K92.2 Gastrointestinal hemorrhage, unspecified (principal)
CPT/HCPCS: 83690; 85025

== ENCOUNTER → 2021-10-16 11:40 | Outpatient (CLI) | payer MEDICAID, SELFPAY ==
[2021-10-16 18:23] LABS: Basophils # 0.1 K/mm3 (0-0.2); Basophils % 0.8 % (0.1-2.0); Eosinophils # 0.2 K/mm3 (0.0-0.4); Eosinophils % 3.2 % (0.1-12.0); Hematocrit 40.3 % (42.0-52.0); Hemoglobin 13.2 g/dL (14.1-18.0); Lymphocytes # 1.9 K/mm3 (0.7-4.5); Lymphocytes % 27.8 % (10-50); Mean Corpuscular HGB Conc 32.8 g/dL (31.8-35.4); Mean Corpuscular Hemoglobin 31.9 pg (27.0-31.2); Mean Corpuscular Volume 97.3 fl (80-94); Mean Platelet Volume 11.1 fl (7.4-10.4); Monocytes # 0.4 K/mm3 (0.1-1.0); Neutrophils # 4.2 K/mm3 (1.8-7.8); Neutrophils % 62.2 % (37.0-80.0); Platelet Count 214 K/mm3 (142-424); Red Blood Count 4.15 M/mm3 (4.60-6.20); Red Cell Distribution Width 14.1 % (11.5-17.5); White Blood Count 6.7 K/mm3 (4.8-10.8)
[2021-10-16 18:34] LABS: Hemoglobin A1C 5.5 % (4.0-6.0)
[2021-10-16 19:58] LABS: Lipase 670 U/L (23-300)
== END ==
PROVIDERS: PCP Family Medicine; Visit Provider Family Medicine
DX: K92.2 Gastrointestinal hemorrhage, unspecified (principal); R73.9 Hyperglycemia, unspecified; E87.1 Hypo-osmolality and hyponatremia
CPT/HCPCS: 83036; 83690; 85025

== ENCOUNTER → 2021-10-26 09:45 | Outpatient (CLI) | payer MEDICAID, SELFPAY ==
[2021-10-26 17:22] LABS: Lipase 1962 U/L (23-300)
== END ==
PROVIDERS: PCP Family Medicine; Visit Provider Family Medicine
DX: K85.90 Acute pancreatitis without necrosis or infection, unspecified (principal)
CPT/HCPCS: 83690

== ENCOUNTER → 2021-11-05 13:06 | Outpatient (CLI) | payer MEDICAID, SELFPAY ==
[2021-11-05 13:33] LABS: Basophils # 0.1 K/mm3 (0-0.2); Basophils % 0.6 % (0.1-2.0); Eosinophils # 0.2 K/mm3 (0.0-0.4); Eosinophils % 1.9 % (0.1-12.0); Hematocrit 45.4 % (42.0-52.0); Hemoglobin 15.1 g/dL (14.1-18.0); Lymphocytes # 1.4 K/mm3 (0.7-4.5); Lymphocytes % 13.7 % (10-50); Mean Corpuscular HGB Conc 33.4 g/dL (31.8-35.4); Mean Corpuscular Volume 95.8 fl (80-94); Mean Platelet Volume 9.3 fl (7.4-10.4); Monocytes # 0.5 K/mm3 (0.1-1.0); Monocytes % 4.5 % (1.7-9.3); Neutrophils # 8.1 K/mm3 (1.8-7.8); Neutrophils % 79.3 % (37.0-80.0); Platelet Count 232 K/mm3 (142-424); Red Blood Count 4.74 M/mm3 (4.60-6.20); Red Cell Distribution Width 13.9 % (11.5-17.5); White Blood Count 10.2 K/mm3 (4.8-10.8)
[2021-11-05 14:25] LABS: Lipase 1050 U/L (23-300)
[2021-11-05 14:58] LABS: Thyroid Stimulating Hormone 2.55 uIU/mL (0.465-4.68)
== END ==
PROVIDERS: PCP Family Medicine; Visit Provider Family Medicine
DX: K86.1 Other chronic pancreatitis (principal)
CPT/HCPCS: 36415; 83690; 84443; 85025

== ENCOUNTER → 2021-12-14 06:34 | Outpatient (CLI) | payer MEDICAID, SELFPAY ==
[2021-12-13 19:03] LABS: Alanine Aminotransferase 20 U/L (12-78); Albumin Level 3.9 g/dl (3.5-5.0); Albumin/Globulin Ratio 1.3 (1.1-1.8); Alkaline Phosphatase 145 U/L (38-126); Anion Gap 10.3 mEq/L (5-15); Aspartate Amino Transferase 31 U/L (17-59); Bilirubin,Total 0.3 mg/dl (0.2-1.3); Blood Urea Nitrogen 6 mg/dl (9-20); Calcium 9.1 mg/dl (8.4-10.2); Carbon Dioxide 24 mmol/L (22.0-30.0); Chloride 104 mmol/L (98-107); Estimated Glomerular Filt Rate 139 ml/min (>60); GFR (African American) 169 ML/MIN (>60); Globulin 2.9 g/dL (1.3-3.2); Glucose 177 mg/dl (74-100); Potassium 4.3 mmoL/L (3.5-5.1); Sodium 134 mmol/L (136-145); Total Protein,Serum 6.8 g/dl (6.3-8.2)
[2021-12-13 19:12] LABS: Lipase 1861 U/L (23-300)
== END ==
PROVIDERS: PCP Family Medicine; Visit Provider Family Medicine
DX: K86.1 Other chronic pancreatitis (principal)
CPT/HCPCS: 80053; 83690

== ENCOUNTER 2021-12-28 10:50 | Emergency (ER) | payer MEDICAID, SELFPAY ==
--- NOTE | 2021-12-28 11:09 | HMH.EDUTC ---
[facility] [place] Clinical Impression: Chronic alcohol abuse Fatigue Qualifiers: Fatigue type: chronic, unspecified Qualified Code(s): R53.82 - Chronic fatigue, unspecified Pancreatitis Qualifiers: Chronicity: acute Pancreatitis type: unspecified pancreatitis type Acute pancreatitis complication: unspecified Qualified Code(s): K85.90 - Acute pancreatitis without necrosis or infection, unspecified Disposition: Still a Patient Condition on Discharge: Fair Referrals: Richard Edgar MD [Primary Care Provider] - Time of Disposition: 13:16 Medical Decision Making - Medical Records Medical records reviewed: No: I reviewed the patient's medical records. - Medhat Inquiry Pt receiving controlled substance: No Vital Signs: 12/28/21 11:11 Temperature 97.8 F Temperature Source Oral Pulse Rate [Left] 87 Respiratory Rate 16 Blood Pressure [Right Arm] 111/74 Blood Pressure Mean [Right Arm] 86 02 Sat by Pulse Oximetry 100 - Lab Data Lab results reviewed: Yes: I reviewed the patient's lab results. Lab Results 12/28/21 11:14: Urine Color Dark yellow, Urine Appearance Clear, Urine pH 6.5, Ur Specific [place] 1.015, Urine Protein Negative, Urine Glucose (UA) Negative, Urine Ketones Moderate, Urine Blood Negative, Urine Nitrate Negative, Urine Bilirubin Negative, Urine Urobilinogen 0.2, Ur Leukocyte Esterase Negative 12/28/21 12:05: WBC 8.2, RBC 4.21 L, Hgb 13.3 L, Hct 41.7 L, MCV 99.1 H, MCH 31.5 H, MCHC 31.8, RDW 15.2, Plt Count 267, MPV 9.5, Neut % (Auto) 63.5, Lymph % (Auto) 22.8, [place] % (Auto) 9.6 H, Eos % (Auto) 3.0, Baso % (Auto) 1.1, Neut # (Auto) 5.2, Lymph # (Auto) 1.9, [place] # (Auto) 0.8, Eos # (Auto) 0.3, Baso # (Auto) 0.1 12/28/21 12:05: Sodium 130 L, Chloride 94 L, Carbon Dioxide 29, BUN 11, Creatinine 0.60 L, Estimated Creat Clear 106, Estimated GFR 139, Est GFR ( Amer) 169, Glucose 109 H, Calcium 9.7, Total Bilirubin 0.8, AST 35, ALT 26, Alkaline Phosphatase 218 H, Total Protein 7.8, Albumin 4.4, Globulin 3.4 H, Albumin/Globulin Ratio 1.3, Amylase 133 H, Lipase 668 H 12/28/21 12:05: Phosphorus 3.4, Magnesium 1.8 Result diagrams: 12/28/21 12:05 12/28/21 12:05 Orders (Tests/Meds): ORDERS Category Date Time Status Amylase Stat Lab 12/28/21 12:05 Results Comprehensive Metabolic Panel Stat Lab 12/28/21 12:05 Results Lipase Stat Lab 12/28/21 12:05 Results PT/PTT Stat Lab 12/28/21 12:05 Received Medical Decision Narrative: He was transferred to the ER due to his abdominal pain and elevated lipase. [facility] [place] - General Stated complaint: Possible UTI Time Seen by Provider: 12/28/21 11:35 - History of Present Illness Provider Complaint: He is here with complaints of abdominal pain, poor appetite, nausea, vomiting x2 yesterday and he is having dark urine. - Related Data Home Medications Medication Instructions Recorded Confirmed albuterol sulfate 90 mcg/actuation 1 puff IH Q4HP PRN 11/25/19 12/13/21 breath activated powder inhaler,sensor Lipase/Protease/Amylase [Montse Fuentes 2 cap PO TIDWMEAL 02/18/21 12/13/21 36,000 Unit Capsule] Pantoprazole Sodium 40 mg PO DAILY 08/12/21 12/13/21 hyoscyamine sulfate 0.125 mg tablet 0.125 mg PO Q4-6H PRN tab 09/27/21 12/13/21 oxycodone 5 mg tablet 5 mg PO Q6H PRN tab 09/27/21 12/13/21 Previous Rx's Medication Instructions Recorded thiamine HCl (vitamin B1) 100 mg 100 mg PO DAILY #30 tab 09/14/21 tablet dicyclomine 10 mg capsule 10 mg PO TID #90 cap 10/16/21 pantoprazole 40 mg tablet,delayed 40 mg PO BID #180 tab 10/16/21 release levetiracetam 500 mg tablet 500 mg PO BID #60 tab 10/24/21 sennosides 8.6 mg-docusate sodium 1 tab-cap PO BID #60 tab 10/24/21 50 mg tablet lorazepam 2 mg tablet 2 mg PO TIDP PRN #45 tab 11/12/21 hydrocodone 5 mg-acetaminophen 325 1 tab PO BIDP PRN #30 tab 12/20/21 mg tablet Allergies Allergy/AdvReac Type Severity Reaction Status Date / Time cephalexin [From Keflex] Allergy Mild Hives Alda
[2021-12-28 11:11] VITALS: BP 111/74; PULSE 87; RESP 16; TEMP 36.6; O2SAT 100; BMI 18.2
[2021-12-28 11:20] LABS: Apearance,Urine Clear (Clear); Color,Urine Dark Yellow (Yellow); Glucose,Urine (UA) Negative (Negative); Ketones,Urine Moderate (Negative); PH,Urine 6.5 (5.0-8.5); Protein,Urine Negative (Negative); Specific Gravity, Urine 1.015 (1.005-1.030)
[2021-12-28 11:21] LABS: Bilirubin,Urine Negative (Negative); Blood, Urine Negative (Negative); UTC Leukocyte Esterase,Urine Negative (Negative); UTC Nitrate,Urine Negative (Negative); Urobilinogen,Urine 0.2 EU/dl (0.2)
--- NOTE | 2021-12-28 11:47 | XR_ITS ---
FINAL REPORT CLINICAL HISTORY: cough, congestion COMPARISON: September 07, 2021 FINDINGS: Two views of the chest were obtained. The heart size and pulmonary vascularity are within normal limits. The mediastinum is normal. There are mild left lung base opacities which may represent atelectasis or pneumonia. There is no pneumothorax. The bony thorax is intact. IMPRESSION: Mild left lung base atelectasis or pneumonia. Reviewed, Interpreted and Dictated by Parviz Correa III, MD Transcribed by Atiya Barrios Authenticated and [facility]
[2021-12-28 12:37] LABS: Basophils # 0.1 K/mm3 (0-0.2); Basophils % 1.1 % (0.1-2.0); Eosinophils # 0.3 K/mm3 (0.0-0.4); Hematocrit 41.7 % (42.0-52.0); Hemoglobin 13.3 g/dL (14.1-18.0); Lymphocytes # 1.9 K/mm3 (0.7-4.5); Lymphocytes % 22.8 % (10-50); Mean Corpuscular HGB Conc 31.8 g/dL (31.8-35.4); Mean Corpuscular Hemoglobin 31.5 pg (27.0-31.2); Mean Corpuscular Volume 99.1 fl (80-94); Mean Platelet Volume 9.5 fl (7.4-10.4); Monocytes # 0.8 K/mm3 (0.1-1.0); Monocytes % 9.6 % (1.7-9.3); Neutrophils # 5.2 K/mm3 (1.8-7.8); Neutrophils % 63.5 % (37.0-80.0); Platelet Count 267 K/mm3 (142-424); Red Blood Count 4.21 M/mm3 (4.60-6.20); Red Cell Distribution Width 15.2 % (11.5-17.5); White Blood Count 8.2 K/mm3 (4.8-10.8)
[2021-12-28 12:44] LABS: Alanine Aminotransferase 26 U/L (12-78); Albumin Level 4.4 g/dl (3.5-5.0); Albumin/Globulin Ratio 1.3 (1.1-1.8); Alkaline Phosphatase 218 U/L (38-126); Amylase 133 U/L (30-110); Aspartate Amino Transferase 35 U/L (17-59); Bilirubin,Total 0.8 mg/dl (0.2-1.3); Blood Urea Nitrogen 11 mg/dl (9-20); Calcium 9.7 mg/dl (8.4-10.2); Carbon Dioxide 29 mmol/L (22.0-30.0); Chloride 94 mmol/L (98-107); Creatinine Clearance Estimated 106 mL/min (50-200); Estimated Glomerular Filt Rate 139 ml/min (>60); GFR (African American) 169 ML/MIN (>60); Globulin 3.4 g/dL (1.3-3.2); Glucose 109 mg/dl (74-100); Sodium 130 mmol/L (136-145); Total Protein,Serum 7.8 g/dl (6.3-8.2)
[2021-12-28 12:45] LABS: Magnesium 1.8 mg/dl (1.6-2.3); Phosphorous 3.4 mg/dl (2.5-4.5)
[2021-12-28 12:47] LABS: Lipase 668 U/L (23-300)
[2021-12-28 13:18] VITALS: BP 119/75; PULSE 68; RESP 16; TEMP 37.1; O2SAT 100; BMI 18.1
--- NOTE | 2021-12-28 13:27 | PC.NURSE ---
KHALIF CHIRINOS at for pt jonathanal
[2021-12-28 13:32] LABS: Anion Gap 11.8 mEq/L (5-15); Potassium 4.8 mmoL/L (3.5-5.1)
[2021-12-28 13:38] LABS: Activated Partial Thrombo Time 35.5 seconds (22.8-30.6); INR 1.08 (0.9-1.1); Prothrombin Time 12.1 seconds (10.1-12.5)
--- NOTE | 2021-12-28 13:40 | HMH.EDGENADL ---
ED Disposition Clinical Impression: Fatigue Qualifiers: Fatigue type: chronic, unspecified Qualified Code(s): R53.82 - Chronic fatigue, unspecified Pancreatitis Qualifiers: Chronicity: acute Pancreatitis type: unspecified pancreatitis type Acute pancreatitis complication: unspecified Qualified Code(s): K85.90 - Acute pancreatitis without necrosis or infection, unspecified Disposition: Still a Patient Condition on Discharge: Fair Additional Instructions: At this time it was felt you are safe to be discharged home. If new or worsening symptoms please do not hesitate to return to the emergency department. Please follow-up with your family doctor early next week. Referrals: Richard Edgar MD [Primary Care Provider] - - Critical Care Critical Care Time: No Attestation: On 12/28/21, the high probability of a clinically significant, sudden or life threatening deterioration of the following system(s) required my full and direct attention, intervention and personal management. The time I documented below is in addition to time spent performing reported procedures but includes the following listed in this critical care notation. Medical Decision Making - Medhat Inquiry Pt receiving controlled substance: No Vital Signs: 12/28/21 11:11 12/28/21 13:18 Temperature 97.8 F 98.7 F Temperature Source Oral Oral Pulse Rate [Left] 87 68 Respiratory Rate 16 16 Blood Pressure [Right Arm] 111/74 119/75 Blood Pressure Mean [Right Arm] 86 89 Blood Pressure Source [Right Arm] Automatic Cuff Blood Pressure Position [Right Arm] Sitting 02 Sat by Pulse Oximetry 100 100 Oxygen Delivery Method Room Air - Lab Data Lab Results 12/28/21 11:14: Urine Color Dark yellow, Urine Appearance Clear, Urine pH 6.5, Ur Specific [place] 1.015, Urine Protein Negative, Urine Glucose (UA) Negative, Urine Ketones Moderate, Urine Blood Negative, Urine Nitrate Negative, Urine Bilirubin Negative, Urine Urobilinogen 0.2, Ur Leukocyte Esterase Negative 12/28/21 12:05: WBC 8.2, RBC 4.21 L, Hgb 13.3 L, Hct 41.7 L, MCV 99.1 H, MCH 31.5 H, MCHC 31.8, RDW 15.2, Plt Count 267, MPV 9.5, Neut % (Auto) 63.5, Lymph % (Auto) 22.8, [place] % (Auto) 9.6 H, Eos % (Auto) 3.0, Baso % (Auto) 1.1, Neut # (Auto) 5.2, Lymph # (Auto) 1.9, [place] # (Auto) 0.8, Eos # (Auto) 0.3, Baso # (Auto) 0.1 12/28/21 12:05: Sodium 130 L, Potassium 4.8, Chloride 94 L, Carbon Dioxide 29, Anion Gap 11.8, BUN 11, Creatinine 0.60 L, Estimated Creat Clear 106, Estimated GFR 139, Est GFR ( Amer) 169, Glucose 109 H, Calcium 9.7, Total Bilirubin 0.8, AST 35, ALT 26, Alkaline Phosphatase 218 H, Total Protein 7.8, Albumin 4.4, Globulin 3.4 H, Albumin/Globulin Ratio 1.3, Amylase 133 H, Lipase 668 H 12/28/21 12:05: PT 12.1, INR 1.08, APTT 35.5 H 12/28/21 12:05: Phosphorus 3.4, Magnesium 1.8 Result diagrams: 12/28/21 12:05 12/28/21 12:05 Orders (Tests/Meds): ED MEDICATIONS Generic Name Dose Route Start Last Admin Trade Name Freq PRN Reason Stop Dose Admin Lactated Ringer's 1,000 mls @ 999 mls/hr 12/28/21 13:45 12/28/21 13:56 Lactated Ringer's 1000 Ml Bag IV 12/28/21 14:45 999 mls/hr .Q1H1M BUZZ Administration Discontinued Medications Generic Name Dose Route Start Last Admin Trade Name Freq PRN Reason Stop Dose Admin Morphine Sulfate 4 mg 12/28/21 13:39 12/28/21 13:56 Morphine 4mg/Ml Syringe IV 12/28/21 13:40 Not Given ONCE ONE Ondansetron HCl 4 mg 12/28/21 13:39 12/28/21 13:55 Ondansetron 4mg/2ml Vial IV 12/28/21 13:40 4 mg ONCE ONE Administration Medical Decision Narrative: In summary this is a 56-year-old male with past medical history described above who presents emergency department for evaluation of epigastric pain in the setting of chronic pancreatitis. Patient is hemodynamically stable nontoxic-appearing upon arrival, with mild epigastric tenderness. Given that his pain is consistent with his prior pancreatitis limited work-up will be conducte
[2021-12-28 14:48] VITALS: BP 124/76; PULSE 69; RESP 16; TEMP 36.7; O2SAT 99
== END 2021-12-28 14:49 | disposition still patient (30) ==
LOC: UTC 11:53 → ER 13:01
PROVIDERS: Nurse Practitioner Family; Emergency Provider Emergency Medicine; PCP Family Medicine
DX: K85.90 Acute pancreatitis without necrosis or infection, unspecified (principal); R53.82 Chronic fatigue, unspecified; E87.6 Hypokalemia; K21.9 Gastro-esophageal reflux disease without esophagitis; K75.9 Inflammatory liver disease, unspecified; G40.909 Epilepsy, unspecified, not intractable, without status epilepticus; F41.9 Anxiety disorder, unspecified; J44.9 Chronic obstructive pulmonary disease, unspecified; Z79.52 Long term (current) use of systemic steroids; Z79.899 Other long term (current) drug therapy; Z88.2 Allergy status to sulfonamides; Z88.8 Allergy status to other drugs, medicaments and biological substances; Z87.891 Personal history of nicotine dependence; Z82.5 Family history of asthma and other chronic lower respiratory diseases
CPT/HCPCS: 71046; 80053; 81003; 82150; 83690; 83735; 84100; 85025; 85610; 85730; 96361; 96374; 96375; 99284; J2405

== ENCOUNTER → 2022-01-25 11:55 | Outpatient (CLI) | payer MEDICAID, SELFPAY ==
[2022-01-25 14:04] LABS: Basophils # 0.1 K/mm3 (0-0.2); Basophils % 1.2 % (0.1-2.0); Eosinophils # 0.3 K/mm3 (0.0-0.4); Eosinophils % 4.6 % (0.1-12.0); Hematocrit 36.8 % (42.0-52.0); Hemoglobin 11.8 g/dL (14.1-18.0); Lymphocytes # 2.1 K/mm3 (0.7-4.5); Lymphocytes % 34.9 % (10-50); Mean Corpuscular HGB Conc 32.2 g/dL (31.8-35.4); Mean Corpuscular Volume 99.4 fl (80-94); Mean Platelet Volume 16.3 fl (7.4-10.4); Monocytes # 0.4 K/mm3 (0.1-1.0); Monocytes % 7.1 % (1.7-9.3); Neutrophils # 3.1 K/mm3 (1.8-7.8); Neutrophils % 52.2 % (37.0-80.0); Platelet Count 175 K/mm3 (142-424); Red Cell Distribution Width 16.3 % (11.5-17.5)
[2022-01-25 15:00] LABS: Alanine Aminotransferase 20 U/L (12-78); Albumin Level 3.9 g/dl (3.5-5.0); Albumin/Globulin Ratio 1.6 (1.1-1.8); Alkaline Phosphatase 119 U/L (38-126); Anion Gap 9.7 mEq/L (5-15); Aspartate Amino Transferase 34 U/L (17-59); Bilirubin,Total 0.2 mg/dl (0.2-1.3); Blood Urea Nitrogen 14 mg/dl (9-20); Calcium 8.9 mg/dl (8.4-10.2); Carbon Dioxide 29 mmol/L (22.0-30.0); Chloride 102 mmol/L (98-107); Estimated Glomerular Filt Rate 117 ml/min (>60); GFR (African American) 141 ML/MIN (>60); Globulin 2.5 g/dL (1.3-3.2); Glucose 79 mg/dl (74-100); Potassium 4.7 mmoL/L (3.5-5.1); Sodium 136 mmol/L (136-145); Total Protein,Serum 6.4 g/dl (6.3-8.2)
[2022-01-27 10:15] LABS: Prealbumin 23 mg/dL (10-36)
== END ==
PROVIDERS: PCP Family Medicine; Visit Provider Student in an Organized Health Care Education/Training Program
DX: R63.4 Abnormal weight loss; Z68.1 Body mass index [BMI] 19.9 or less, adult; K86.0 Alcohol-induced chronic pancreatitis
CPT/HCPCS: 36415; 80053; 84134; 85025

== ENCOUNTER → 2022-03-04 14:02 | Outpatient (CLI) | payer MEDICAID, SELFPAY ==
[2022-03-04 17:05] LABS: Chloride 99 mmol/L (98-107); Sodium 137 mmol/L (136-145)
[2022-03-04 17:07] LABS: Alanine Aminotransferase 16 U/L (12-78); Aspartate Amino Transferase 32 U/L (17-59); Blood Urea Nitrogen 8 mg/dl (9-20); Estimated Glomerular Filt Rate 117 ml/min (>60); GFR (African American) 141 ML/MIN (>60)
[2022-03-04 17:08] LABS: Albumin Level 4.4 g/dl (3.5-5.0); Albumin/Globulin Ratio 1.7 (1.1-1.8); Alkaline Phosphatase 96 U/L (38-126); Bilirubin,Total 0.6 mg/dl (0.2-1.3); Calcium 9.3 mg/dl (8.4-10.2); Carbon Dioxide 28 mmol/L (22.0-30.0); Globulin 2.6 g/dL (1.3-3.2); Glucose 67 mg/dl (74-100); Lipase 456 U/L (23-300)
== END ==
PROVIDERS: PCP Family Medicine; Visit Provider Family Medicine
DX: E87.6 Hypokalemia (principal)
CPT/HCPCS: 80053; 83690

== ENCOUNTER → 2022-03-28 10:19 | Outpatient (CLI) | payer MEDICAID, SELFPAY ==
--- NOTE | 2022-03-28 10:23 | XR_ITS ---
FINAL REPORT TECHNIQUE: Chest PA & Lateral CLINICAL HISTORY: lung discomfort COMPARISON: December 2021 FINDINGS: 2 views of the chest were performed. The heart size is normal. The mediastinum is within normal limits. There is no acute cardiopulmonary process. There are no pleural effusions. There is no pneumothorax. The bony thorax appears intact. There is irregular density projecting in the region of the GE junction that may be artifactual. IMPRESSION: No acute cardiopulmonary process. Reviewed, Interpreted and Dictated by Glenn Jones MD Transcribed by Carson Hernandez Authenticated and [facility]
== END ==
PROVIDERS: PCP Family Medicine; Visit Provider Family Medicine
DX: Z85.118 Personal history of other malignant neoplasm of bronchus and lung (principal)
CPT/HCPCS: 71046

== ENCOUNTER 2022-04-07 11:37 | Emergency (ER) | payer MEDICAID, SELFPAY ==
[2022-04-07 13:57] VITALS: BP 0/0; PULSE 0; RESP 0; TEMP -17.7; TEMP 0
== END 2022-04-07 13:58 | disposition left against medical advice (07) ==
PROVIDERS: Emergency Provider Nurse Practitioner Family; PCP Family Medicine
DX: R11.0 Nausea (principal); M79.10 Myalgia, unspecified site; E87.6 Hypokalemia; K85.10 Biliary acute pancreatitis without necrosis or infection; K85.90 Acute pancreatitis without necrosis or infection, unspecified; F17.210 Nicotine dependence, cigarettes, uncomplicated; Z79.51 Long term (current) use of inhaled steroids; Z79.899 Other long term (current) drug therapy; Z88.2 Allergy status to sulfonamides; Z88.8 Allergy status to other drugs, medicaments and biological substances; Z53.21 Procedure and treatment not carried out due to patient leaving prior to being seen by health care provider

== ENCOUNTER 2022-05-29 22:39 | Emergency (ER) | payer MEDICAID, SELFPAY ==
[2022-05-29 22:39] VITALS: RESP 17; O2SAT 96; BMI 21.7
--- NOTE | 2022-05-29 23:14 | HMH.EDWEAK ---
Discharge Plan Disposition Patient Disposition: Home, Self-Care Chief Complaint: Weakness Prescriptions Prescriptions: No Action oxycodone 5 mg tablet 5 mg PO Q6H PRN hyoscyamine sulfate 0.125 mg tablet 0.125 mg PO Q4-6H PRN (Reason: cramping or diarrhea) mecobalamin (vitamin B12) 5,000 mcg tablet,chewable 5,000 mcg PO DAILY Qty: 90 3RF albuterol sulfate 90 mcg/actuation aero powdr breath act w/sensor 1 puff IH Q4HP PRN (Reason: Shortness Of Breath) pantoprazole 40 mg tablet,delayed release (DR/EC) 40 mg PO BID Qty: 180 3RF levetiracetam 500 mg tablet 500 mg PO BID Qty: 60 3RF sennosides-docusate sodium [Senexon-S] 8.6-50 mg tablet 1 tab-cap PO BID Qty: 60 3RF dicyclomine 10 mg capsule 10 mg PO TID Qty: 90 3RF thiamine HCl (vitamin B1) 100 mg tablet 100 mg PO DAILY Qty: 30 3RF hydrocodone-acetaminophen 5-325 mg tablet 1 tab PO DAILY PRN (Reason: Severe Pain) Qty: 20 0RF ondansetron 4 mg tablet,disintegrating 4 mg PO Q6H Qty: 60 0RF lorazepam 2 mg tablet 2 mg PO TIDP PRN (Reason: alcohol withdrawal) Qty: 90 1RF uzemoc-whgxwunf-dzebvvu 1 EACH capsule,delayed release(DR/EC) 2 cap PO TIDWMEAL Referrals Follow up/Referrals: Richard Edgar MD [Primary Care Provider] - See instructions Clinical Impressions Clinical Impression: Alcohol intoxication, Benzodiazepine misuse Instructions Patient Instructions: Alcohol Use Disorder, Taking Prescription Medications Discharge ED Provider: Jovi Gates HPI General Chief complaint: Weakness Stated complaint: withdrawal Time Seen by Provider: 05/29/22 23:14 Mode of Arrival: EMS Source of Information: Patient, EMS and Medical Record Limitations: No Limitations Description of Symptoms (Recalled from ER Triage Doc. by RN): Patient called out for EMS stating he was out of his Ativan early and is going into withdraw. History of Present Illness HPI Narrative: this pt presents to ed with c/c of out of ativan - last dose 3 days ago MD Complaint: generalized weakness Onset (ago): day(s) Duration: intermittent Location: generalized Migration: none Severity: moderate Associated symptoms: denies other symptoms Related Data Home Medications Medication Instructions Recorded Confirmed albuterol sulfate 90 mcg/actuation 1 puff inhalation Q4HP PRN 11/25/19 03/04/22 breath activated powder Shortness Of Breath inhaler,sensor inbvdd-ablcxirw-rqqljow 2 cap PO TIDWMEAL PANCREATIC 02/18/21 03/04/22 36,000-114,000-180,000 unit INSUFFICIENCY capsule,delay rel hyoscyamine sulfate 0.125 mg tablet 0.125 mg PO Q4-6H PRN cramping or 09/27/21 03/04/22 diarrhea oxycodone 5 mg tablet 5 mg PO Q6H PRN 09/27/21 03/04/22 Previous Rx's Medication Instructions Recorded pantoprazole 40 mg tablet,delayed 40 mg PO BID #180 tabs 10/16/21 release levetiracetam 500 mg tablet 500 mg PO BID seizures #60 tabs 10/24/21 sennosides 8.6 mg-docusate sodium 1 tab-cap PO BID #60 tabs 10/24/21 50 mg tablet (Senexon-S) dicyclomine 10 mg capsule 10 mg PO TID Pain #90 caps 02/12/22 mecobalamin (vitamin B12) 5,000 5,000 mcg PO DAILY #90 tabs 03/04/22 mcg chewable tablet thiamine HCl (vitamin B1) 100 mg 100 mg PO DAILY #30 tabs 03/07/22 tablet hydrocodone 5 mg-acetaminophen 325 1 tab PO DAILY PRN Severe Pain #20 05/23/22 mg tablet tabs lorazepam 2 mg tablet 2 mg PO TIDP PRN alcohol 05/28/22 withdrawal #90 tabs ondansetron 4 mg disintegrating 4 mg PO Q6H Nausea & vomiting #60 05/28/22 tablet tabs Allergies Allergy/AdvReac Type Severity Reaction Status Date / Time cephalexin [From Keflex] Allergy Mild Hives Verified 03/04/22 13:07 sulfamethoxazole Allergy Unknown Verified 03/04/22 13:07 [From BACTRIM] trimethoprim [From BACTRIM] Allergy Unknown Verified 03/04/22 13:07 [facility] Disclaimer: The information contained in this section may have been updated after the patient was seen, as thi
[2022-05-29 23:20] LABS: Basophils # 0.1 K/mm3 (0-0.2); Basophils % 1.6 % (0.1-2.0); Eosinophils # 0.2 K/mm3 (0.0-0.4); Eosinophils % 3.6 % (0.1-12.0); Hematocrit 44.1 % (42.0-52.0); Hemoglobin 14.3 g/dL (14.1-18.0); Lymphocytes # 1.4 K/mm3 (0.7-4.5); Lymphocytes % 28.7 % (10-50); Mean Corpuscular HGB Conc 32.4 g/dL (31.8-35.4); Mean Corpuscular Hemoglobin 34.6 pg (27.0-31.2); Mean Corpuscular Volume 106.9 fl (80-94); Mean Platelet Volume 8.4 fl (7.4-10.4); Monocytes # 0.4 K/mm3 (0.1-1.0); Monocytes % 8.6 % (1.7-9.3); Neutrophils # 2.8 K/mm3 (1.8-7.8); Neutrophils % 57.5 % (37.0-80.0); Platelet Count 178 K/mm3 (142-424); Red Blood Count 4.13 M/mm3 (4.60-6.20); Red Cell Distribution Width 16.6 % (11.5-17.5); White Blood Count 4.9 K/mm3 (4.8-10.8)
--- NOTE | 2022-05-29 23:27 | PC.NURSE ---
2 green tops collected. pt reported he called his sister and she is willing to come pick him up fei
[2022-05-29 23:40] LABS: Chloride 87 mmol/L (98-107); Sodium 129 mmol/L (136-145)
[2022-05-29 23:43] LABS: Alanine Aminotransferase 53 U/L (12-78); Albumin Level 3.8 g/dl (3.5-5.0); Albumin/Globulin Ratio 1.3 (1.1-1.8); Alkaline Phosphatase 305 U/L (38-126); Aspartate Amino Transferase 111 U/L (17-59); Bilirubin,Total 0.5 mg/dl (0.2-1.3); Blood Urea Nitrogen 4 mg/dl (9-20); Calcium 7.9 mg/dl (8.4-10.2); Carbon Dioxide 34 mmol/L (22.0-30.0); Creatinine Clearance Estimated 125 mL/min (50-200); Estimated Glomerular Filt Rate 139 ml/min (>60); Ethyl Alcohol 281 mg/dl (0-10); GFR (African American) 168 ML/MIN (>60); Globulin 2.9 g/dL (1.3-3.2); Glucose 112 mg/dl (74-100); Total Protein,Serum 6.7 g/dl (6.3-8.2)
[2022-05-30 00:20] VITALS: BP 130/77; PULSE 79; RESP 20; TEMP 36.6; O2SAT 94
== END 2022-05-30 00:28 | disposition home or self-care (01) ==
PROVIDERS: Emergency Provider Emergency Medicine; PCP Family Medicine
DX: F13.239 Sedative, hypnotic or anxiolytic dependence with withdrawal, unspecified (principal); F10.929 Alcohol use, unspecified with intoxication, unspecified; F17.210 Nicotine dependence, cigarettes, uncomplicated; Z87.19 Personal history of other diseases of the digestive system
CPT/HCPCS: 80053; 85025; 96361; 96374; 99285; J2405

== ENCOUNTER 2022-06-06 01:27 | Inpatient (IN) | payer MEDICAID, SELFPAY ==
[2022-06-06] VITALS (16 sets, daily range): BP systolic 106–154; BP diastolic 56–92; PULSE 65–117; RESP 16–20; TEMP 36.7–37.1; O2SAT 97–100; BMI 17.8
--- NOTE | 2022-06-06 01:29 | CT_ITS ---
PROCEDURE INFORMATION: Exam: CT Abdomen And Pelvis With Contrast Exam date and time: 06/06/2022 2:19 AM Age: 57 years old Clinical indication: Nausea and vomiting; Abdominal pain; Additional info: Abd pain, n/v, anuria 4 days. HX of pancreatitis TECHNIQUE: Imaging protocol: Computed tomography of the abdomen and pelvis with contrast. Radiation optimization: All CT scans at this facility use at least one of these dose optimization techniques: automated exposure control; mA and/or kV adjustment per patient size (includes targeted exams where dose is matched to clinical indication); or iterative reconstruction. Contrast material: ISOVUE; Contrast volume: 75 ml; Contrast route: IV; COMPARISON: CT ABDOMEN W CON 09/08/2021 8:02 AM FINDINGS: Lungs: No acute finding. Diaphragm: A small hiatal hernia is present. Liver: Mild hepatic steatosis is evident. Gallbladder and bile ducts: The gallbladder is absent. There is no biliary ductal dilation. Pancreas: Pancreatic calcifications are present consistent with chronic pancreatitis. Spleen: Normal. No splenomegaly. Adrenal glands: Normal. No mass. Kidneys and ureters: There are 17 and 10 mm left cortical cysts. The kidneys are otherwise unremarkable. Stomach and bowel: The stomach is severely distended and fluid-filled. There is edematous wall thickening of the duodenal bulb. There is a complex 3.5 cm cystic lesion adjacent to the medial aspect of the duodenal bulb causing mass effect on the pancreatic head and neck. Appendix: No evidence of appendicitis. Intraperitoneal space: Unremarkable. No free air. No significant fluid collection. Vasculature: There is mild calcific atherosclerotic disease. There is no aneurysmal dilation of the abdominal aorta. Lymph nodes: Unremarkable. No enlarged lymph nodes. Urinary bladder: The bladder is decompressed by a Huang catheter. The bladder wall is diffusely thickened. This may be secondary to chronic bladder outlet obstruction or cystitis. Reproductive: The prostate gland is enlarged. Bones/joints: Unremarkable. No acute fracture. Soft tissues: Unremarkable. IMPRESSION: 1. Findings consistent with gastric outlet obstruction with diffuse edematous wall thickening of the duodenal bulb and complex 3.5 cm cystic structure adjacent to the medial wall of the duodenal bulb causing mass effect on the pancreatic head and neck. This may represent a giant duodenal diverticulum, ulcer or pancreatic pseudocyst. There are no findings present to suggest that this represents a pseudoaneurysm. 2. The urinary bladder is decompressed by a Huang catheter however, there is diffuse wall thickening present either related to chronic bladder outlet obstruction or cystitis. 3. Other findings as detailed. COMMENTS: Consistent with the [employer]'s Incidental Findings Committee white paper (J Am Blair Radiol 2018): Any incidental renal lesion less than 1 cm or classified as too small to characterize, or any incidental cystic renal lesion characterized as simple-appearing, is likely benign. No follow-up imaging is recommended for these lesions per consensus recommendations based on imaging criteria. THIS REPORT CONTAINS FINDINGS THAT MAY BE CRITICAL TO PATIENT CARE. The findings were verbally communicated via telephone conference at 2:52 AM EST on 06/06/2022 with KALPANA HERMAN. The findings were acknowledged and understood.
[2022-06-06 01:39] LABS: Microscopic, Urine URINE MICROSCOPIC (MICROSCOPIC)
[2022-06-06 01:41] LABS: Basophils # 0.1 K/mm3 (0-0.2); Chloride 93 mmol/L (98-107); Eosinophils # 0.1 K/mm3 (0.0-0.4); Eosinophils % 1.9 % (0.1-12.0); Hematocrit 45.1 % (42.0-52.0); Lymphocytes # 1.2 K/mm3 (0.7-4.5); Lymphocytes % 18.1 % (10-50); Mean Corpuscular HGB Conc 33.2 g/dL (31.8-35.4); Mean Corpuscular Hemoglobin 34.7 pg (27.0-31.2); Mean Corpuscular Volume 104.6 fl (80-94); Mean Platelet Volume 9.3 fl (7.4-10.4); Monocytes # 0.8 K/mm3 (0.1-1.0); Monocytes % 12.1 % (1.7-9.3); Neutrophils # 4.6 K/mm3 (1.8-7.8); Platelet Count 200 K/mm3 (142-424); Potassium 3.6 mmoL/L (3.5-5.1); Red Blood Count 4.31 M/mm3 (4.60-6.20); Red Cell Distribution Width 15.9 % (11.5-17.5); Sodium 139 mmol/L (136-145); White Blood Count 6.8 K/mm3 (4.8-10.8)
[2022-06-06 01:43] LABS: Amylase 140 U/L (30-110); Blood Urea Nitrogen 14 mg/dl (9-20); Creatinine Clearance Estimated 61 mL/min (50-200); Estimated Glomerular Filt Rate 77 ml/min (>60); GFR (African American) 93 ML/MIN (>60)
[2022-06-06 01:44] LABS: Alanine Aminotransferase 49 U/L (12-78); Albumin Level 4.6 g/dl (3.5-5.0); Albumin/Globulin Ratio 1.4 (1.1-1.8); Alkaline Phosphatase 174 U/L (38-126); Anion Gap 15.6 mEq/L (5-15); Aspartate Amino Transferase 57 U/L (17-59); Bilirubin,Total 0.7 mg/dl (0.2-1.3); Calcium 9.3 mg/dl (8.4-10.2); Carbon Dioxide 34 mmol/L (22.0-30.0); Globulin 3.3 g/dL (1.3-3.2); Glucose 136 mg/dl (74-100); Lipase 513 U/L (23-300); Total Protein,Serum 7.9 g/dl (6.3-8.2)
[2022-06-06 01:45] LABS: Appearance,Urine CLEAR (Clear); Blood, Urine 2+ (Negative); Color,Urine DK YELLOW (Yellow); Glucose,Urine (UA) Negative (Negative); Ketones,Urine 1+ (Negative); Leukocyte Esterase,Urine Negative (Negative); Nitrate,Urine Negative (Negative); Protein,Urine 2+ (Negative)
[2022-06-06 01:47] LABS: Ethyl Alcohol < 10 mg/dl (0-10)
[2022-06-06 01:49] LABS: Lactic Acid 1.6 mmol/L (0.7-2.1)
[2022-06-06 01:50] LABS: Bilirubin,Urine 1+ (Negative); PH,Urine >= 9.0 (5.0-8.5)
[2022-06-06 01:57] LABS: Hyaline Casts,Urine Occasional #/lpf (0); RBC,Urine 20-50 #/hpf (0-3)
--- NOTE | 2022-06-06 02:00 | HMH.EDABDPAI ---
Discharge Plan Disposition Patient Disposition: Admitted As Inpatient Chief Complaint: Abdominal Pain Prescriptions Prescriptions: No Action hyoscyamine sulfate 0.125 mg tablet 0.125 mg PO Q4-6H PRN (Reason: cramping or diarrhea) albuterol sulfate 90 mcg/actuation aero powdr breath act w/sensor 1 puff IH Q4HP PRN (Reason: Shortness Of Breath) levetiracetam 500 mg tablet 500 mg PO BID Qty: 60 3RF dicyclomine 10 mg capsule 10 mg PO TID Qty: 90 3RF hydrocodone-acetaminophen 5-325 mg tablet 1 tab PO DAILY PRN (Reason: Severe Pain) Qty: 20 0RF ondansetron 4 mg tablet,disintegrating 4 mg PO Q6H Qty: 60 0RF lorazepam 2 mg tablet 2 mg PO TIDP PRN (Reason: alcohol withdrawal) Qty: 90 1RF zwhets-xyybqerr-jszwrpe 1 EACH capsule,delayed release(DR/EC) 2 cap PO TIDWMEAL sennosides-docusate sodium [Senexon-S] 8.6-50 mg tablet 1 tab-cap PO BID thiamine HCl (vitamin B1) 100 mg tablet 100 mg PO DAILY pantoprazole 40 mg tablet,delayed release (DR/EC) 40 mg PO BID mecobalamin (vitamin B12) 5,000 mcg tablet,chewable 5,000 mcg PO DAILY Discharge ED Provider: Jovi Gates Abdominal Pain HPI General Chief Complaint: Abdominal Pain Stated Complaint: ABD pain, n/v, no urine for 4 days Time Seen by Provider: 06/06/22 02:00 Mode of Arrival: Ambulatory Source of Information: Patient, EMS and Medical Record Limitations: No Limitations Description of Symptoms (Recalled from ER Triage Doc. by RN): the pt states that he has been vomiting for 4 days and has also been unable to urinate as well. pt stated pain in the abdomen upon palpation History of Present Illness HPI narrative: pt with reported vomiting for 4 days - pt denied etoh and also reported dec urination - pt with mid abd pain MD complaint: abdominal pain Onset (ago): day(s) Consistency: intermittent Location: diffuse Severity: moderate Radiation: epigastric Related Data Home Medications Medication Instructions Recorded Confirmed albuterol sulfate 90 mcg/actuation 1 puff inhalation Q4HP PRN 11/25/19 06/06/22 breath activated powder Shortness Of Breath inhaler,sensor snzsal-nqkzflto-dvffyqm 2 cap PO TIDWMEAL PANCREATIC 02/18/21 06/06/22 36,000-114,000-180,000 unit INSUFFICIENCY capsule,delay rel hyoscyamine sulfate 0.125 mg tablet 0.125 mg PO Q4-6H PRN cramping or 09/27/21 06/06/22 diarrhea mecobalamin (vitamin B12) 5,000 5,000 mcg PO DAILY Supplement 06/06/22 06/06/22 mcg chewable tablet pantoprazole 40 mg tablet,delayed 40 mg PO BID GERD 06/06/22 06/06/22 release sennosides 8.6 mg-docusate sodium 1 tab-cap PO BID stool softner 06/06/22 06/06/22 50 mg tablet (Senexon-S) thiamine HCl (vitamin B1) 100 mg 100 mg PO DAILY Supplement 06/06/22 06/06/22 tablet Previous Rx's Medication Instructions Recorded levetiracetam 500 mg tablet 500 mg PO BID seizures #60 tabs 10/24/21 dicyclomine 10 mg capsule 10 mg PO TID Pain #90 caps 02/12/22 hydrocodone 5 mg-acetaminophen 325 1 tab PO DAILY PRN Severe Pain #20 05/23/22 mg tablet tabs lorazepam 2 mg tablet 2 mg PO TIDP PRN alcohol 05/28/22 withdrawal #90 tabs ondansetron 4 mg disintegrating 4 mg PO Q6H Nausea & vomiting #60 05/28/22 tablet tabs Allergies Allergy/AdvReac Type Severity Reaction Status Date / Time cephalexin [From Keflex] Allergy Mild Hives Verified 03/04/22 13:07 sulfamethoxazole Allergy Unknown Verified 03/04/22 13:07 [From BACTRIM] trimethoprim [From BACTRIM] Allergy Unknown Verified 03/04/22 13:07 PFS PFS Disclaimer: The information contained in this section may have been updated after the patient was seen, as this information can be updated by other users. Medical History (Updated 05/30/22 @ 00:13 by Jovi Gates MD) Gallstone pancreatitis Hypokalemia Pancreatitis Social History (Updated 06/06/22 @ 03:44 by Norah Cevallos RN) Smoking Status: Current every day smoker tobacco type:
[2022-06-06 02:06] LABS: C-Reactive Protein 9.2 mg/L (0-4)
[2022-06-06 02:18] LABS: Erythrocyte Sedimentation Rate 18 mm/hr (0-20)
[2022-06-06 02:19] LABS: Procalcitonin 0.093 ng/mL (0.0-2.0)
--- NOTE | 2022-06-06 02:51 | PC.NURSE ---
Dr. Gates s/w [facility]
--- NOTE | 2022-06-06 03:00 | XR_ITS ---
PROCEDURE INFORMATION: Exam: XR Chest Exam date and time: 06/06/2022 3:15 AM Age: 57 years old Clinical indication: Device placement; Ng tube; Additional info: Confirm ng tube placement TECHNIQUE: Imaging protocol: Radiologic exam of the chest. Views: 1 view. COMPARISON: CR XR CHEST 2V 03/28/2022 10:47 AM FINDINGS: Tubes, catheters and devices: Interval placement of nasogastric tube with tip and side hole overlying left upper quadrant of abdomen. Lungs: Partially visualized hyperaerated lungs. Pleural spaces: Unremarkable. No pleural effusion. No pneumothorax. Heart/Mediastinum: Heart not enlarged. Bones/joints: Thoracoabdominal dextroconvex spinal curvature. Soft tissues: Upper abdominal surgical clips. IMPRESSION: Nonacute appearance.
[2022-06-06 03:05] LABS: Coronavirus 19, PCR Not Detected (NotDetected); Influenza A, PCR Not Detected (NotDetected); Influenza B, PCR Not Detected (NotDetected)
--- NOTE | 2022-06-06 03:33 | PC.NURSE ---
Addendum entered by Norah Cevallos RN 06/06/22 03:54: Correction: s/w Dr. Darnell Original Note: [facility], Dr. Jewell
--- NOTE | 2022-06-06 03:42 | PC.NURSE ---
[facility] is currently on wait list for [facility] pending bed assignment.
--- NOTE | 2022-06-06 03:51 | PC.NURSE ---
Dr. Gates s/w hospitalist Irma
--- NOTE | 2022-06-06 03:53 | PC.NURSE ---
compounding and finishing supervisor notified for bed assignment
--- NOTE | 2022-06-06 03:53 | PC.NURSE ---
Hospitalist at bedside
--- NOTE | 2022-06-06 04:05 | EXP.HP ---
History of Present Illness *Admission Date: 06/06/22 *Reason for visit:: vomiting *History of present illness: This is a 57-year-old male with past medical history of chronic alcohol abuse, chronic alcoholic pancreatitis, anxiety who presents emergency department today with complaints of 4 days of nausea vomiting and inability to void. he also endorses upper abdominal pain and distention. He has had previous visits for alcoholic pancreatitis, alcohol withdrawal and pancreatic pseudocyst and pseudoaneurysms. He presented in August of 2021 with similar complaints and was transferred to for further evaluation. Patient is a poor historian and unable to tell me if this is similar to previous event. He denies any fever, cough, congestion, chest pain. He denies any melena or hematemesis Emergency department work-up significant for elevated alk phos, elevated CRP. CT imaging of abdomen significant for gastric outlet obstruction with diffuse edematous wall thickening of the duodenal bulb and complex 3.5 cm cystic structure. Alk phos elevated, LFTs normal. Patient was attempted to be transferred to for further evaluation, he is excepted but he is waitlisted. He will be admitted here for IV hydration, NG tube And supportive care. [facility] Disclaimer: The information contained in this section may have been updated after the patient was seen, as this information can be updated by other users. Medical History Gallstone pancreatitis Hypokalemia Pancreatitis Social History Smoking Status: Current every day smoker tobacco type: cigarettes packs per day: 3 alcohol intake: current substance use type: denies use current occupational status: unemployed Travel in the last 8 weeks: None household members: family housing: house current occupational exposures/hazards: No caffeine: No Review of Systems Constitutional Constitutional: Reports system reviewed and no additional complaints, except as documented Eyes Eyes: Reports system reviewed and no additional complaints, except as documented ENT Ears, Nose, Mouth, and Throat: Reports system reviewed and no additional complaints, except as documented *Cardiovascular Cardiovascular: Reports system reviewed and no additional complaints, except as documented *Respiratory Respiratory: Reports system reviewed and no additional complaints, except as documented *Gastrointestinal Gastrointestinal: Reports abdominal pain, Reports belching, Reports early satiety and Reports vomiting *Genitourinary Genitourinary: Reports oliguria *Musculoskeletal Musculoskeletal: Reports system reviewed and no additional complaints, except as documented Integumentary/Breasts Skin/Breast: Reports system reviewed and no additional complaints, except as documented *Neurologic Neurologic: Reports system reviewed and no additional complaints, except as documented Meds Home Medications and Allergies Home Medications Medication Instructions Recorded Confirmed Type albuterol sulfate 90 mcg/actuation 1 puff inhalation Q4HP PRN 11/25/19 06/06/22 History breath activated powder Shortness Of Breath inhaler,sensor sbkhno-fhwwilvd-vjbvroj 2 cap PO TIDWMEAL PANCREATIC 02/18/21 06/06/22 History 36,000-114,000-180,000 unit INSUFFICIENCY capsule,delay rel hyoscyamine sulfate 0.125 mg tablet 0.125 mg PO Q4-6H PRN cramping or 09/27/21 06/06/22 History diarrhea levetiracetam 500 mg tablet 500 mg PO BID seizures #60 tabs 10/24/21 06/06/22 Rx dicyclomine 10 mg capsule 10 mg PO TID Pain #90 caps 02/12/22 06/06/22 Rx hydrocodone 5 mg-acetaminophen 325 1 tab PO DAILY PRN Severe Pain #20 05/23/22 06/06/22 Rx mg tablet tabs lorazepam 2 mg tablet 2 mg PO TIDP PRN alcohol 05/28/22 06/06/22 Rx withdrawal #90 tabs ondansetron 4 mg disintegrating 4 mg PO Q6H Nausea & vomiting #60 05/28/22 06/06/22
[2022-06-06 04:31] LABS: Occult Blood,Gastric Fluid Positive (Negative)
--- NOTE | 2022-06-06 04:31 | PC.NURSE ---
report called to Lora
[2022-06-06 06:16] LABS: Basophils % 0.6 % (0.1-2.0); Eosinophils # 0.1 K/mm3 (0.0-0.4); Monocytes # 0.6 K/mm3 (0.1-1.0); Red Cell Distribution Width 15.8 % (11.5-17.5)
[2022-06-06 06:27] LABS: Alanine Aminotransferase 31 U/L (12-78); Albumin Level 3.6 g/dl (3.5-5.0); Albumin/Globulin Ratio 1.4 (1.1-1.8); Alkaline Phosphatase 136 U/L (38-126); Anion Gap 10.7 mEq/L (5-15); Aspartate Amino Transferase 43 U/L (17-59); Bilirubin,Total 0.5 mg/dl (0.2-1.3); Blood Urea Nitrogen 15 mg/dl (9-20); Calcium 7.9 mg/dl (8.4-10.2); Carbon Dioxide 30 mmol/L (22.0-30.0); Chloride 99 mmol/L (98-107); Creatinine Clearance Estimated 68 mL/min (50-200); Estimated Glomerular Filt Rate 87 ml/min (>60); GFR (African American) 105 ML/MIN (>60); Globulin 2.6 g/dL (1.3-3.2); Glucose 99 mg/dl (74-100); Magnesium 2.2 mg/dl (1.6-2.3); Potassium 3.7 mmoL/L (3.5-5.1); Sodium 136 mmol/L (136-145); Total Protein,Serum 6.2 g/dl (6.3-8.2)
[2022-06-06 06:30] LABS: Activated Partial Thrombo Time 26.2 seconds (22.8-30.6); INR 1.11 (0.9-1.1); Prothrombin Time 11.9 seconds (10.1-12.5)
[2022-06-06 07:06] LABS: Eosinophils % 1.2 % (0.1-12.0); Hematocrit 37.8 % (42.0-52.0); Lymphocytes % 19.4 % (10-50); Mean Corpuscular HGB Conc 32.3 g/dL (31.8-35.4); Mean Corpuscular Volume 108.3 fl (80-94); Mean Platelet Volume 9.9 fl (7.4-10.4); Monocytes % 11.9 % (1.7-9.3); Neutrophils # 3.4 K/mm3 (1.8-7.8); Neutrophils % 66.8 % (37.0-80.0); Platelet Count 150 K/mm3 (142-424); Red Blood Count 3.49 M/mm3 (4.60-6.20)
[2022-06-06 07:07] LABS: Hemoglobin 12.2 g/dL (14.1-18.0)
[2022-06-06 07:40] LABS: Phosphorous 4.2 mg/dl (2.5-4.5)
--- NOTE | 2022-06-06 11:06 | HMH.PHAINT1 ---
Pharmacy Intervention Comments: Home medication reconciliation completed on patient using external fill history from outside pharmacy. -Hillary Hurtado, PharmD Candidate 2022
--- NOTE | 2022-06-06 13:38 | EXP.PN ---
Subjective *Date: 06/06/22 *Time: 17:27 Interval history: Date of service June 06, 2022 The patient reports that he is feeling better with his NG tube therapy. Nursing staff report that he remains afebrile with stable vital signs and saturating appropriately on room air. He is not vomiting. He reports that it has been more than 5 days since he has had any alcohol consumption. His Sister Eli Morales [phone] supports his history. His sister reports previous admissions to [facility]. His ED labs have been reviewed including a lipase of 513, normal CBC, normal INR and improved electrolytes and creatinine. CT of the abdomen and pelvis with contrast identifies no lung disease with fatty liver previous cholecystectomy and chronic pancreatitis. There is a 3.5 sonometer complex cyst at the level of the duodenal bulb causing mass-effect pancreatic head and neck. He is on a pending list for transition of care to [facility]. We will proceed with MRi of his abdomen to delineate pathology identified on CT scan of abdomen. Exam Data for Last 24 hours Vital signs and Labs for Last 24 Hours: Temp Pulse Resp BP Pulse Ox 98.1 F 87 17 121/74 98 06/06/22 11:04 06/06/22 11:04 06/06/22 11:04 06/06/22 11:04 06/06/22 11:04 Laboratory Results - last 24 hr 06/06/22 01:25: WBC 6.8, RBC 4.31 L, Hgb 15.0, Hct 45.1, MCV 104.6 H, MCH 34.7 H, MCHC 33.2, RDW 15.9, Plt Count 200, MPV 9.3, Neut % (Auto) 67.0, Lymph % (Auto) 18.1, [place] % (Auto) 12.1 H, Eos % (Auto) 1.9, Baso % (Auto) 1.0, Neut # (Auto) 4.6, Lymph # (Auto) 1.2, Le[place] # (Auto) 0.8, Eos # (Auto) 0.1, Baso # (Auto) 0.1, ESR 18 06/06/22 01:25: Sodium 139, Potassium 3.6, Chloride 93 L, Carbon Dioxide 34 H, Anion Gap 15.6 H, BUN 14, Creatinine 1.00, Estimated Creat Clear 61, Estimated GFR 77, Est GFR ( Amer) 93, Glucose 136 H, Calcium 9.3, Total Bilirubin 0.7, AST 57, ALT 49, Alkaline Phosphatase 174 H, C-Reactive Protein 9.2 H, Total Protein 7.9, Albumin 4.6, Globulin 3.3 H, Albumin/Globulin Ratio 1.4, Amylase 140 H, Lipase 513 H, Procalcitonin 0.093 06/06/22 01:25: Lactate 1.6 06/06/22 01:25: Plasma/Serum Alcohol < 10 06/06/22 01:35: Urine Color Dk yellow, Urine Appearance Clear, Urine pH >= 9.0 H, Ur Specific [place] 1.010, Urine Protein 2+, Urine Glucose (UA) Negative, Urine Ketones 1+, Urine Blood 2+, Urine Nitrate Negative, Urine Bilirubin 1+ A, Urine Urobilinogen 1.0, Ur Leukocyte Esterase Negative, Urine RBC 20-50, Urine WBC None, Ur Squamous Epith Cells 5-10, Urine Bacteria None, Hyaline Casts Occasional 06/06/22 03:00: SARS-CoV-2 (PCR) Not detected, Influenza A Untype (PCR) Not detected, Influenza Type B (PCR) Not detected 06/06/22 04:25: Gastric Occult Blood Positive 06/06/22 06:05: WBC 5.0 D, RBC 3.49 L, Hgb 12.2 L D, Hct 37.8 L, MCV 108.3 H, MCH 35.0 H, MCHC 32.3, RDW 15.8, Plt Count 150, MPV 9.9, Neut % (Auto) 66.8, Lymph % (Auto) 19.4, [place] % (Auto) 11.9 H, Eos % (Auto) 1.2, Baso % (Auto) 0.6, Neut # (Auto) 3.4, Lymph # (Auto) 1.0, Lea # (Auto) 0.6, Eos # (Auto) 0.1, Baso # (Auto) 0.0 06/06/22 06:05: Sodium 136, Potassium 3.7, Chloride 99, Carbon Dioxide 30, Anion Gap 10.7, BUN 15, Creatinine 0.90, Estimated Creat Clear 68, Estimated GFR 87, Est GFR ( Amer) 105, Glucose 99 D, Calcium 7.9 L, Magnesium 2.2, Total Bilirubin 0.5, AST 43, ALT 31 D, Alkaline Phosphatase 136 H, Total Protein 6.2 L, Albumin 3.6 D, Globulin 2.6, Albumin/Globulin Ratio 1.4 06/06/22 06:05: PT 11.9, INR 1.11 H, APTT 26.2 06/06/22 06:05: Phosphorus 4.2 I & O for Last 24 hours: Intake & Output 06/03/22 06/04/22 06/05/22 06/06/22 23:59 23:59 23:59 23:59 Intake Total 1100 / 1100 Output Total 810 / 810 Balance 290 / 290 Weight 53.07 kg Constitutional Constitutional: no acute distress, thin, chronically ill appearing and cooperative *Routine HEENT Exam Head: Present normocephalic Eye: Present EOMI and PERRL ENT: Present mucous membranes moist Comments: NG tube secu
--- NOTE | 2022-06-06 18:13 | PC.NURSE ---
VS stable, NG in place at left nare. 800 cc's out. Abdomen slightly distended, some pain noted. Bowel sounds hypoactive. No other changes noted.
[2022-06-07] VITALS (7 sets, daily range): BP systolic 116–133; BP diastolic 57–70; PULSE 66–85; RESP 15–20; TEMP 36.7–36.9; O2SAT 99–100; BMI 18.1
[2022-06-07 07:09] LABS: Basophils % 0.7 % (0.1-2.0); Eosinophils # 0.1 K/mm3 (0.0-0.4); Eosinophils % 3.2 % (0.1-12.0); Hematocrit 35.4 % (42.0-52.0); Hemoglobin 11.6 g/dL (14.1-18.0); Lymphocytes # 0.9 K/mm3 (0.7-4.5); Lymphocytes % 21.7 % (10-50); Mean Corpuscular HGB Conc 32.9 g/dL (31.8-35.4); Mean Corpuscular Hemoglobin 35.3 pg (27.0-31.2); Mean Corpuscular Volume 107.3 fl (80-94); Mean Platelet Volume 9.1 fl (7.4-10.4); Monocytes # 0.4 K/mm3 (0.1-1.0); Monocytes % 10.8 % (1.7-9.3); Neutrophils # 2.6 K/mm3 (1.8-7.8); Neutrophils % 63.7 % (37.0-80.0); Platelet Count 146 K/mm3 (142-424); Red Blood Count 3.29 M/mm3 (4.60-6.20); Red Cell Distribution Width 15.6 % (11.5-17.5)
[2022-06-07 07:17] LABS: Anion Gap 13.9 mEq/L (5-15); Blood Urea Nitrogen 17 mg/dl (9-20); Calcium 7.9 mg/dl (8.4-10.2); Carbon Dioxide 25 mmol/L (22.0-30.0); Chloride 104 mmol/L (98-107); Creatinine Clearance Estimated 90 mL/min (50-200); Estimated Glomerular Filt Rate 116 ml/min (>60); GFR (African American) 141 ML/MIN (>60); Glucose 72 mg/dl (74-100); Lipase 552 U/L (23-300); Sodium 140 mmol/L (136-145)
[2022-06-07 07:25] LABS: Potassium 2.9 mmoL/L (3.5-5.1)
--- NOTE | 2022-06-07 08:21 | DIET.NUTRFU ---
Continue NPO status due high output from NG tube of 1300ml yesterday. IV fluids continues to help with hydration. Potassium depleted, provider to replace. Will continue to monitor diet status.
--- NOTE | 2022-06-07 10:22 | EXP.PN ---
Subjective *Date: 06/07/22 *Time: 10:22 Interval history: Date of service June 07, 2022 The patient reports no acute events overnight. He reports an increased appetite. I am accompanied by several members of the multidisciplinary rounds team including his nurse. Staff are reporting approximately 1300 cc via his NG tube. He remains afebrile with stable vital signs and saturating appropriately on room air. He continues to tolerate his IV antibiotic for Klebsiella UTI. He is on transfer list to the [facility] for his abdominal findings of gastric outlet obstruction. Exam Data for Last 24 hours Vital signs and Labs for Last 24 Hours: Temp Pulse Resp BP Pulse Ox 98.1 F 76 18 130/69 99 06/07/22 08:00 06/07/22 08:00 06/07/22 08:00 06/07/22 08:00 06/07/22 08:00 Laboratory Results - last 24 hr 06/07/22 06:38: WBC 4.0 L, RBC 3.29 L, Hgb 11.6 L, Hct 35.4 L, MCV 107.3 H, MCH 35.3 H, MCHC 32.9, RDW 15.6, Plt Count 146, MPV 9.1, Neut % (Auto) 63.7, Lymph % (Auto) 21.7, [place] % (Auto) 10.8 H, Eos % (Auto) 3.2, Baso % (Auto) 0.7, Neut # (Auto) 2.6, Lymph # (Auto) 0.9, [place] # (Auto) 0.4, Eos # (Auto) 0.1, Baso # (Auto) 0.0 06/07/22 06:38: Sodium 140, Potassium 2.9 L* D, Chloride 104, Carbon Dioxide 25, Anion Gap 13.9, BUN 17, Creatinine 0.70 D, Estimated Creat Clear 90, Estimated GFR 116, Est GFR ( Amer) 141 D, Glucose 72 L, Calcium 7.9 L, Lipase 552 H I & O for Last 24 hours: Intake & Output 06/04/22 06/05/22 06/06/22 06/07/22 23:59 23:59 23:59 23:59 Intake Total 2522 / 3622 1100 / 1100 Output Total 1160 / 1960 1920 / 1920 Balance 1362 / 1662 -820 / -820 Weight 53.07 kg 54.431 kg Constitutional Constitutional: no acute distress, thin, chronically ill appearing and cooperative *Routine HEENT Exam Head: Present normocephalic Eye: Present EOMI and PERRL ENT: Present mucous membranes moist Comments: NG tube secured *Routine Neck Exam Neck: Present supple and trachea midline; Absent lymphadenopathy *Routine Respiratory Exam Respiratory: Present rhonchi, normal respiratory effort and symmetric chest movement *Routine Cardiovascular Exam Cardiovascular: Present RRR; Absent murmur *Routine Abdominal Exam Abdominal: Present soft, normoactive bowel sounds and tenderness; Absent distended, rebound or guarding *Routine Extremities Exam Extremities: Present full ROM, pulses intact and normal capillary refill; Absent cyanosis, clubbing or edema *Routine Skin Exam Skin: Present warm; Absent rash *Routine Neurological Exam Neurological: Present alert, oriented X3, moving all extremities, vision grossly intact and hearing grossly intact Routine Psychiatric Exam Psychiatric: Present normal affect, normal thought process, cooperative, good insight and good judgment Assessment and Plan *Assessment and plan (1) Gastric outlet obstruction: Status: Acute Category: Medical Code(s): K31.1 - Adult hypertrophic pyloric stenosis (2) Chronic pancreatitis: Status: Acute Qualifiers: Pancreatitis type: alcohol induced Qualified Code(s): K86.0 - Alcohol-induced chronic pancreatitis Category: Medical Code(s): K86.1 - Other chronic pancreatitis (3) Chronic alcohol abuse: Status: Acute Category: Medical Code(s): F10.10 - Alcohol abuse, uncomplicated (4) UTI due to Klebsiella species: Status: Acute Category: Medical Code(s): N39.0 - Urinary tract infection, site not specified; B96.89 - Other specified bacterial agents as the cause of diseases classified elsewhere Plan 57-year-old male that presents to the ED with nausea and vomiting not resolved with home care. In the ED he was found to have a gastric outlet obstruction via CT scan imaging. An NG tube was placed and [facility] was contacted for transition of care with his findings on CT abdomen and pelvis. Problems addressed are as follows: Gastric outlet obstru
--- NOTE | 2022-06-07 17:52 | PC.NURSE ---
no acute changes this shift. 400 cc noted in ng tube drainage container. did c/o nausea once this shift and was medicated with prn zofran with good effectiveness.
--- NOTE | 2022-06-07 23:42 | EXP.DC.SUM ---
General Admission date:: 06/06/22 Discharge date: 06/07/22 HPI HPI HPI: This is a 57-year-old male with past medical history of chronic alcohol abuse, chronic alcoholic pancreatitis, anxiety who presents emergency department today with complaints of 4 days of nausea vomiting and inability to void. he also endorses upper abdominal pain and distention. He has had previous visits for alcoholic pancreatitis, alcohol withdrawal and pancreatic pseudocyst and pseudoaneurysms. He presented in August of 2021 with similar complaints and was transferred to for further evaluation. Patient is a poor historian and unable to tell me if this is similar to previous event. He denies any fever, cough, congestion, chest pain. He denies any melena or hematemesis Emergency department work-up significant for elevated alk phos, elevated CRP. CT imaging of abdomen significant for gastric outlet obstruction with diffuse edematous wall thickening of the duodenal bulb and complex 3.5 cm cystic structure. Alk phos elevated, LFTs normal. Patient was attempted to be transferred to for further evaluation, he is excepted but he is waitlisted. He will be admitted here for IV hydration, NG tube And supportive care. Hospital Course Hospital Course Hospital Course: this is a 57-year-old male with past medical history of chronic alcohol abuse, chronic pancreatitis, prior pancreatic pseudocyst and now with gastric outlet obstruction who initially presented to emergency department with 4 days of nausea vomiting and poor p.o. intake. On work-up in the emergency department he was noted to have gastric outlet obstruction with cystic-like structure. At time of admission transfer to was attempted but due to capacity patient remained here for further evaluation. He did undergo NG tube placement, IV fluid hydration. through hospitalization he remained afebrile but was noted to have Klebsiella UTI. He tolerated antibiotics appropriately and remained waitlisted for transfer to . On the date of discharge, patient pulled out NG tube and IV and demanded to go home AMA. Bedside nurse, charge nurse and myself attempted to redirect patient and informed him of risks versus benefits of leaving the hospital and potentially engaging in further alcohol use and not completing full course of medical treatment for gastric outlet obstruction. Patient was informed of risks to include . He was able to read back the visit risks and benefits and deemed to have capacity to make own medical decisions. At the time of discharge/AMA, vital signs stable and in no distress. Exam Data for Last 24 hours Vital signs and Labs for Last 24 Hours: Temp Pulse Resp BP Pulse Ox 98.0 F 66 15 118/62 100 06/07/22 20:00 06/07/22 20:00 06/07/22 20:00 06/07/22 20:00 06/07/22 20:00 Laboratory Results - last 24 hr 06/07/22 06:38: WBC 4.0 L, RBC 3.29 L, Hgb 11.6 L, Hct 35.4 L, MCV 107.3 H, MCH 35.3 H, MCHC 32.9, RDW 15.6, Plt Count 146, MPV 9.1, Neut % (Auto) 63.7, Lymph % (Auto) 21.7, [place] % (Auto) 10.8 H, Eos % (Auto) 3.2, Baso % (Auto) 0.7, Neut # (Auto) 2.6, Lymph # (Auto) 0.9, [place] # (Auto) 0.4, Eos # (Auto) 0.1, Baso # (Auto) 0.0 06/07/22 06:38: Sodium 140, Potassium 2.9 L* D, Chloride 104, Carbon Dioxide 25, Anion Gap 13.9, BUN 17, Creatinine 0.70 D, Estimated Creat Clear 90, Estimated GFR 116, Est GFR ( Amer) 141 D, Glucose 72 L, Calcium 7.9 L, Lipase 552 H I & O for Last 24 hours: Intake & Output 06/04/22 06/05/22 06/06/22 06/07/22 23:59 23:59 23:59 23:59 Intake Total 2522 / 3622 2975 / 2975 Output Total 1160 / 1960 2670 / 2670 Balance 1362 / 1662 305 / 305 Weight 53.07 kg 54.431 kg Constitutional Constitutional: no acute distress *Routine HEENT Exam Head: Present atraumatic Eye: Present EOMI and PERRL ENT: Present mucous membranes moist *Routine Neck Exam Neck: Present supple and full ROM *Routine Respiratory Exam Respiratory: Present normal re
--- NOTE | 2022-06-07 23:54 | PC.NURSE ---
pt called out and asked to speak with this rn. pt stated he wanted to go home right now. laborer cook house made aware. pt educated on need for hospitalization and his condition. pt stated understanding. MANAGER WILLOW Irma Richey came to speak with pt regarding wanting to leave ama. pt verbalized understanding of his condition and possible outcomes if he left the hospital. pt removed his own NG tube. iv removed. pt is dressing and sitting in chair at this time calling his ride.
--- NOTE | 2022-06-11 12:48 | CARE MANAGER ---
Attempted post-discharge phone interview, no answer.
== END 2022-06-08 00:40 | disposition left against medical advice (07) | DRG 381 ==
LOC: ER 02:06 → 2ND 04:03
PROVIDERS: Nurse Practitioner Acute Care; Admitting Provider Family Medicine; Emergency Provider Emergency Medicine; PCP Family Medicine; Visit Provider Family Medicine
DX: K31.1 Adult hypertrophic pyloric stenosis (principal); K86.0 Alcohol-induced chronic pancreatitis; N39.0 Urinary tract infection, site not specified; F10.10 Alcohol abuse, uncomplicated; F17.210 Nicotine dependence, cigarettes, uncomplicated; B96.1 Klebsiella pneumoniae [K. pneumoniae] as the cause of diseases classified elsewhere; K57.10 Diverticulosis of small intestine without perforation or abscess without bleeding
CPT/HCPCS: 36415; 51702; 71045; 74177; 80048; 80053; 81001; 82150; 82272; 83605; 83690; 83735; 84100; 84145; 85025; 85610; 85651; 85730; 86140; 99285; C9803; G0328; J0696; J1953; J2405; Q9967; U0003; U0005

== ENCOUNTER → 2022-07-26 10:48 | Outpatient (CLI) | payer MEDICAID, SELFPAY ==
[2022-07-26 11:44] LABS: Basophils # 0.1 K/mm3 (0-0.2); Eosinophils # 0.3 K/mm3 (0.0-0.4); Eosinophils % 4.5 % (0.1-12.0); Hematocrit 39.6 % (42.0-52.0); Hemoglobin 12.9 g/dL (14.1-18.0); Lymphocytes # 1.6 K/mm3 (0.7-4.5); Lymphocytes % 25.1 % (10-50); Mean Corpuscular HGB Conc 32.6 g/dL (31.8-35.4); Mean Corpuscular Hemoglobin 33.2 pg (27.0-31.2); Mean Corpuscular Volume 101.9 fl (80-94); Mean Platelet Volume 8.6 fl (7.4-10.4); Monocytes # 0.4 K/mm3 (0.1-1.0); Neutrophils % 63.5 % (37.0-80.0); Platelet Count 190 K/mm3 (142-424); Red Blood Count 3.89 M/mm3 (4.60-6.20); Red Cell Distribution Width 13.4 % (11.5-17.5); White Blood Count 6.3 K/mm3 (4.8-10.8)
[2022-07-26 11:56] LABS: Chloride 101 mmol/L (98-107)
[2022-07-26 11:57] LABS: Potassium 4.7 mmoL/L (3.5-5.1); Sodium 138 mmol/L (136-145)
[2022-07-26 11:59] LABS: Alanine Aminotransferase 19 U/L (12-78); Alkaline Phosphatase 73 U/L (38-126); Anion Gap 7.7 mEq/L (5-15); Aspartate Amino Transferase 25 U/L (17-59); Bilirubin,Total 0.3 mg/dl (0.2-1.3); Blood Urea Nitrogen 19 mg/dl (9-20); Carbon Dioxide 34 mmol/L (22.0-30.0); Estimated Glomerular Filt Rate 139 ml/min (>60); GFR (African American) 168 ML/MIN (>60)
[2022-07-26 12:00] LABS: Albumin Level 4.1 g/dl (3.5-5.0); Albumin/Globulin Ratio 1.6 (1.1-1.8); Calcium 8.8 mg/dl (8.4-10.2); Globulin 2.5 g/dL (1.3-3.2); Glucose 100 mg/dl (74-100); Total Protein,Serum 6.6 g/dl (6.3-8.2)
[2022-07-26 12:27] LABS: Lipase 766 U/L (23-300)
[2022-07-26 12:34] LABS: Prostate Specific Ag Screen 0.5 ng/ml (0.0-4.0)
== END ==
PROVIDERS: PCP Family Medicine; Visit Provider Family Medicine
DX: K85.20 Alcohol induced acute pancreatitis without necrosis or infection (principal); Z12.5 Encounter for screening for malignant neoplasm of prostate
CPT/HCPCS: 36415; 80053; 83690; 85025; G0103

== ENCOUNTER 2022-09-24 14:35 | Emergency (ER) | payer MEDICAID, SELFPAY ==
[2022-09-24] VITALS (10 sets, daily range): BP systolic 107–125; BP diastolic 61–85; PULSE 67–82; RESP 18–20; TEMP 36.6–37.1; O2SAT 96–99; BMI 17.8
--- NOTE | 2022-09-24 15:01 | CT_ITS ---
FINAL REPORT TECHNIQUE: Axial images through the abdomen and pelvis was performed by computed tomography. Sagittal and coronal reformatted images were obtained and reviewed. This study was performed with techniques to keep radiation doses as low as reasonably achievable (ALARA). Individualized dose reduction techniques using automated exposure control or adjustment of mA and/or kV according to the patient's size were employed. CLINICAL HISTORY: abdominal pain COMPARISON: 06/06/2022 FINDINGS: Abdomen: Lung bases are clear. The gallbladder is unremarkable. Liver has an unremarkable CT appearance. There are changes of chronic pancreatitis. There are multiple pseudocysts in the right upper quadrant. Largest cyst is adjacent to the right pancreatic head measures 2.0 cm, previously measured 3.3 cm however there is a pseudocyst extending to the evelio hepatis which is slightly larger than previous measuring up to 1.5 cm. There has been interval replacement of a PEG tube with gastric decompression. There is progressive perigastric varicosies, likely related to portal vein compression from pancreatitis. The spleen, and adrenal glands are unremarkable. Kidneys show no mass or obstruction. No bowel obstruction or fluid collection is seen. Pelvis: The appendix is unremarkable. There is a small amount of free fluid. There is chronic bladder wall thickening. Pelvic bowel loops are unremarkable. No fluid collection or adenopathy is seen. IMPRESSION: Persistent changes of pancreatitis with chronic changes. Numerous peripancreatic pseudocysts, largest is moderately improved since prior. No evidence of biliary obstruction or bowel obstruction. No new significant inflammatory changes or pseudocysts. Reviewed, Interpreted and Dictated by Rafi Brizuela MD Transcribed by Kathleen Forbes Authenticated and [facility]
--- NOTE | 2022-09-24 15:02 | CT_ITS ---
FINAL REPORT TECHNIQUE: Thin section axial CT with contrast with multiplanar reconstruction. This study was performed with techniques to keep radiation doses as low as reasonably achievable (ALARA). Individualized dose reduction techniques using automated exposure control or adjustment of mA and/or kV according to the patient's size were employed. CLINICAL HISTORY: pain, SOA FINDINGS: Pulmonary vessels enhance in normal fashion without evidence of embolism. Thoracic aorta shows no dissection or aneurysm. No pulmonary mass or infiltrate is present. There is no significant pleural effusion. There is no significant pericardial effusion. No mediastinal or hilar adenopathy is present. IMPRESSION: 1. No evidence of pulmonary embolism Reviewed, Interpreted and Dictated by Rafi Brizuela MD Transcribed by Kathleen Forbes Authenticated and [facility]
--- NOTE | 2022-09-24 15:19 | HMH.EDABDPAI ---
Discharge Plan Disposition Patient Disposition: Home, Self-Care Condition: Good Prescriptions Prescriptions: No Action hyoscyamine sulfate 0.125 mg tablet 0.125 mg PO Q4-6H PRN (Reason: cramping or diarrhea) lorazepam 2 mg tablet 2 mg PO BID PRN (Reason: alcohol withdrawal) Qty: 60 1RF albuterol sulfate 90 mcg/actuation aero powdr breath act w/sensor 1 puff IH Q4HP PRN (Reason: Shortness Of Breath) polyethylene glycol 3350 [Miralax] 17 gram/dose powder 17 g PO DAILY Qty: 238 10RF ondansetron 4 mg tablet,disintegrating 4 mg PO Q6H Qty: 60 0RF sennosides-docusate sodium [Senexon-S] 8.6-50 mg tablet 1 tab-cap PO BID PRN (Reason: stool softener) Qty: 20 10RF dicyclomine 10 mg capsule 10 mg PO TID Qty: 90 3RF hydrocodone-acetaminophen 5-325 mg tablet 1 tab PO DAILY PRN (Reason: Severe Pain) Qty: 20 0RF sucralfate [Carafate] 1 gram tablet 1 g PO BID Qty: 180 3RF levetiracetam 500 mg tablet See Rx Instructions .ROUTE .COMPLEX Qty: 60 0RF Dose Instruction: TAKE ONE TABLET BY MOUTH TWICE A DAY FOR SEIZURES Rx Instructions: TAKE ONE TABLET BY MOUTH TWICE A DAY FOR SEIZURES [id number]-[id number] 1 EACH capsule,delayed release(DR/EC) 2 cap PO TIDWMEAL Label Comments: [id number] thiamine HCl (vitamin B1) 100 mg tablet 100 mg PO DAILY pantoprazole 40 mg tablet,delayed release (DR/EC) 40 mg PO BID mecobalamin (vitamin B12) 5,000 mcg tablet,chewable 5,000 mcg PO DAILY Referrals Follow up/Referrals: Richard Edgar MD [Primary Care Provider] - See instructions Activity Restrictions/Add. Instructions Additional Instructions/Restrictions: You were evaluated in the emergency department today. Please follow-up closely with your primary care provider over the next 48 hours. Return to the emergency department for new or worsening symptoms. Clinical Impressions Clinical Impression: Abdominal pain Qualifiers: Abdominal location: generalized Qualified Code(s): R10.84 - Generalized abdominal pain Instructions Patient Instructions: DI for Acute Abdominal Pain Discharge ED Provider: Jen Garcia Abdominal Pain HPI General Chief Complaint: Abdominal Pain Stated Complaint: Phys ref, nausea abd pain Time Seen by Provider: 09/24/22 14:54 Mode of Arrival: Ambulatory Source of Information: Patient Limitations: No Limitations Description of Symptoms (Recalled from ER Triage Doc. by RN): pt to ed c/o left lower quad pain. pt states he was sent to ed for eval by pcp. pt states a hx of gtube. pt states this pain has been persistant x2 days. 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 Patient reports that he has had abdominal pain for several days, but it acutely worsened last night. It is severe, constant, and located in the epigastric regions and around his feeding tube. He states that he feels like there is a knot beneath his feeding tube. He states he has been nauseated but has not had vomiting. He denies any changes in bowel movements, but states that he is constipated. Related Data Home Medications Medication Instructions Recorded Confirmed albuterol sulfate 90 mcg/actuation 1 puff inhalation Q4HP PRN 11/25/19 09/24/22 breath activated powder Shortness Of Breath inhaler,sensor [id number]-[id number]-[id number] 2 cap PO TIDWMEAL PANCREATIC 02/18/21 09/24/22 36,000-114,000-180,000 unit INSUFFICIENCY capsule,delay rel h
[2022-09-24 15:49] LABS: Basophils % 0.4 % (0.1-2.0); Eosinophils # 0.2 K/mm3 (0.0-0.4); Eosinophils % 3.2 % (0.1-12.0); Hematocrit 40.3 % (42.0-52.0); Hemoglobin 13.2 g/dL (14.1-18.0); Lymphocytes # 1.7 K/mm3 (0.7-4.5); Lymphocytes % 28.8 % (10-50); Mean Corpuscular HGB Conc 32.8 g/dL (31.8-35.4); Mean Corpuscular Hemoglobin 31.3 pg (27.0-31.2); Mean Corpuscular Volume 95.4 fl (80-94); Mean Platelet Volume 10.2 fl (7.4-10.4); Monocytes # 0.5 K/mm3 (0.1-1.0); Monocytes % 7.9 % (1.7-9.3); Neutrophils # 3.6 K/mm3 (1.8-7.8); Neutrophils % 59.7 % (37.0-80.0); Platelet Count 130 K/mm3 (142-424); Red Blood Count 4.23 M/mm3 (4.60-6.20); Red Cell Distribution Width 13.9 % (11.5-17.5); White Blood Count 6.1 K/mm3 (4.8-10.8)
[2022-09-24 15:55] LABS: Chloride 96 mmol/L (98-107); Potassium 3.8 mmoL/L (3.5-5.1); Sodium 139 mmol/L (136-145)
[2022-09-24 15:57] LABS: Blood Urea Nitrogen 15 mg/dl (9-20); Creatinine Clearance Estimated 68 mL/min (50-200); Estimated Glomerular Filt Rate 87 ml/min (>60); GFR (African American) 105 ML/MIN (>60)
[2022-09-24 15:58] LABS: Alanine Aminotransferase 23 U/L (12-78); Albumin Level 4.2 g/dl (3.5-5.0); Albumin/Globulin Ratio 1.4 (1.1-1.8); Alkaline Phosphatase 88 U/L (38-126); Anion Gap 16.8 mEq/L (5-15); Aspartate Amino Transferase 32 U/L (17-59); Bilirubin,Total 0.6 mg/dl (0.2-1.3); Calcium 10.3 mg/dl (8.4-10.2); Carbon Dioxide 30 mmol/L (22.0-30.0); Globulin 3.1 g/dL (1.3-3.2); Glucose 95 mg/dl (74-100); Lipase 344 U/L (23-300); Total Protein,Serum 7.3 g/dl (6.3-8.2)
[2022-09-24 15:59] LABS: Lactic Acid 0.8 mmol/L (0.7-2.1)
[2022-09-24 16:38] LABS: Microscopic, Urine URINE MICROSCOPIC (MICROSCOPIC)
--- NOTE | 2022-09-24 16:40 | PC.NURSE ---
rounded on pt, urine sent to lab at this time
[2022-09-24 17:02] LABS: Appearance,Urine CLOUDY (Clear); Blood, Urine Negative (Negative); Color,Urine YELLOW (Yellow); Glucose,Urine (UA) Negative (Negative); Ketones,Urine 3+ (Negative); Leukocyte Esterase,Urine Negative (Negative); Nitrate,Urine Negative (Negative); Protein,Urine Negative (Negative); Urobilinogen,Urine 0.2 EU/dl (0.2)
[2022-09-24 17:14] LABS: Bilirubin,Urine 1+ (Negative)
[2022-09-24 17:22] LABS: Amorphous Sediment,Urine 2+ /lpf; Squamous Epithelial Cell,Urine Occasional #/hpf (0-5); WBC,Urine Occasional #/hpf (0-3)
--- NOTE | 2022-09-24 17:23 | PC.NURSE ---
rounded on pt states no complaints at this time,call light at bs
== END 2022-09-24 18:40 | disposition home or self-care (01) ==
PROVIDERS: Emergency Provider Emergency Medicine; PCP Family Medicine
DX: R10.84 Generalized abdominal pain (principal); F10.10 Alcohol abuse, uncomplicated; R00.0 Tachycardia, unspecified
CPT/HCPCS: 71275; 74177; 80053; 81001; 83605; 83690; 85025; 96361; 96374; 96375; 99285; J2405; Q9967

== ENCOUNTER → 2022-11-05 07:04 | Outpatient (CLI) | payer MEDICAID, SELFPAY ==
[2022-11-04 18:27] LABS: Chloride 95 mmol/L (98-107); Potassium 4.5 mmoL/L (3.5-5.1); Sodium 134 mmol/L (136-145)
[2022-11-04 18:28] LABS: Basophils % 0.3 % (0.1-2.0); Eosinophils # 0.2 K/mm3 (0.0-0.4); Eosinophils % 4.5 % (0.1-12.0); Hematocrit 39.4 % (42.0-52.0); Hemoglobin 12.6 g/dL (14.1-18.0); Lymphocytes # 1.7 K/mm3 (0.7-4.5); Lymphocytes % 36.5 % (10-50); Mean Corpuscular HGB Conc 31.9 g/dL (31.8-35.4); Mean Corpuscular Hemoglobin 29.7 pg (27.0-31.2); Mean Corpuscular Volume 93.2 fl (80-94); Mean Platelet Volume 9.5 fl (7.4-10.4); Monocytes # 0.3 K/mm3 (0.1-1.0); Monocytes % 7.2 % (1.7-9.3); Neutrophils # 2.4 K/mm3 (1.8-7.8); Neutrophils % 51.7 % (37.0-80.0); Platelet Count 259 K/mm3 (142-424); Red Blood Count 4.22 M/mm3 (4.60-6.20); Red Cell Distribution Width 13.7 % (11.5-17.5); White Blood Count 4.7 K/mm3 (4.8-10.8)
[2022-11-04 18:30] LABS: Alanine Aminotransferase 16 U/L (12-78); Albumin Level 3.8 g/dl (3.5-5.0); Albumin/Globulin Ratio 1.3 (1.1-1.8); Alkaline Phosphatase 96 U/L (38-126); Anion Gap 15.5 mEq/L (5-15); Aspartate Amino Transferase 25 U/L (17-59); Bilirubin,Total 0.2 mg/dl (0.2-1.3); Blood Urea Nitrogen 9 mg/dl (9-20); Calcium 9.3 mg/dl (8.4-10.2); Carbon Dioxide 28 mmol/L (22.0-30.0); Estimated Glomerular Filt Rate 100 ml/min (>60); GFR (African American) 121 ML/MIN (>60); Globulin 2.9 g/dL (1.3-3.2); Glucose 103 mg/dl (74-100); Lipase 428 U/L (23-300); Total Protein,Serum 6.7 g/dl (6.3-8.2)
== END ==
PROVIDERS: PCP Family Medicine; Visit Provider Family Medicine
DX: K85.90 Acute pancreatitis without necrosis or infection, unspecified (principal)
CPT/HCPCS: 80053; 83690; 85025

== ENCOUNTER 2022-11-05 12:46 | Inpatient (IN) | payer MEDICAID, SELFPAY ==
[2022-11-05] VITALS (14 sets, daily range): BP systolic 74–101; BP diastolic 49–71; PULSE 67–93; RESP 16–19; TEMP 36.3–36.8; O2SAT 97–100; BMI 17.8; BMI 18.1
--- NOTE | 2022-11-05 13:02 | CT_ITS ---
FINAL REPORT TECHNIQUE: Postcontrast axial images through the abdomen and pelvis were performed. This study was performed with techniques to keep radiation doses as low as reasonably achievable, (ALARA). Individualized dose reduction techniques using automated exposure control or adjustment of mA and/or kV according to the patient's size were employed. CLINICAL HISTORY: abd pain, pancreatitis COMPARISON: September 24, 2022 FINDINGS: Abdomen: The lung bases are clear. There is mild fatty infiltration of the liver. The gallbladder is surgically absent. A gastric tube is present with a new jejunostomy in the proximal jejunum. The spleen is unremarkable. The adrenals are normal. There is dense calcification throughout the pancreas consistent with chronic pancreatitis. The kidneys enhance appropriately. The aorta is normal in caliber. No free fluid or adenopathy is identified. There are multiple fluid-filled bowel loops in the upper abdomen and right upper quadrant. There are multilocular cystic structures in the right upper quadrant probably due to multilocular pseudocysts. Pseudocysts measures 6.2 x 4.6 cm in aggregate dimensions and are slightly larger as compared to prior. There is a large amount of colonic stool consistent with constipation. Pelvis: The appendix is not identified. The urinary bladder is unremarkable. No free fluid, free air, abscess or adenopathy is identified. There is a diffuse disc bulge with endplate hypertrophy and moderate to high-grade bilateral neural foraminal narrowing at L5-S1. IMPRESSION: Worsening pseudocysts in the right upper quadrant. Interval placement of jejunostomy. Constipation. Reviewed, Interpreted and Dictated by Glenn Jones MD Transcribed by Carson Hernandez Authenticated and [facility]
[2022-11-05 13:15] LABS: Basophils % 0.4 % (0.1-2.0); Eosinophils # 0.3 K/mm3 (0.0-0.4); Hematocrit 41.9 % (42.0-52.0); Hemoglobin 13.5 g/dL (14.1-18.0); Lymphocytes # 1.7 K/mm3 (0.7-4.5); Lymphocytes % 32.8 % (10-50); Mean Corpuscular HGB Conc 32.1 g/dL (31.8-35.4); Mean Corpuscular Hemoglobin 29.7 pg (27.0-31.2); Mean Corpuscular Volume 92.4 fl (80-94); Mean Platelet Volume 8.6 fl (7.4-10.4); Monocytes # 0.4 K/mm3 (0.1-1.0); Monocytes % 7.1 % (1.7-9.3); Neutrophils # 2.9 K/mm3 (1.8-7.8); Neutrophils % 54.6 % (37.0-80.0); Platelet Count 295 K/mm3 (142-424); Red Blood Count 4.54 M/mm3 (4.60-6.20); Red Cell Distribution Width 13.5 % (11.5-17.5); White Blood Count 5.3 K/mm3 (4.8-10.8)
[2022-11-05 13:22] LABS: Alanine Aminotransferase 19 U/L (12-78); Albumin Level 4.2 g/dl (3.5-5.0); Albumin/Globulin Ratio 1.3 (1.1-1.8); Alkaline Phosphatase 124 U/L (38-126); Aspartate Amino Transferase 31 U/L (17-59); Bilirubin,Total 0.5 mg/dl (0.2-1.3); Blood Urea Nitrogen 11 mg/dl (9-20); Calcium 9.2 mg/dl (8.4-10.2); Carbon Dioxide 27 mmol/L (22.0-30.0); Chloride 98 mmol/L (98-107); Creatinine Clearance Estimated 76 mL/min (50-200); Estimated Glomerular Filt Rate 100 ml/min (>60); GFR (African American) 121 ML/MIN (>60); Globulin 3.3 g/dL (1.3-3.2); Glucose 97 mg/dl (74-100); Lipase 389 U/L (23-300); Sodium 136 mmol/L (136-145); Total Protein,Serum 7.5 g/dl (6.3-8.2)
[2022-11-05 13:23] LABS: Ethyl Alcohol < 10 mg/dl (0-10)
--- NOTE | 2022-11-05 15:30 | HMH.EDGENADL ---
Discharge Plan Disposition Patient Disposition: Admitted Condition: Fair Prescriptions Prescriptions: No Action albuterol sulfate 90 mcg/actuation aero powdr breath act w/sensor 1 puff IH Q4HP PRN (Reason: Shortness Of Breath) polyethylene glycol 3350 [Miralax] 17 gram/dose powder 17 g PO DAILY Qty: 238 10RF sennosides-docusate sodium [Senexon-S] 8.6-50 mg tablet 1 tab-cap PO BID PRN (Reason: stool softener) Qty: 30 10RF hyoscyamine sulfate 0.125 mg tablet 0.125 mg PO Q4-6H PRN (Reason: cramping or diarrhea) Qty: 60 0RF pantoprazole 40 mg tablet,delayed release (DR/EC) 40 mg PO BID Qty: 60 10RF prochlorperazine maleate [Compazine] 10 mg tablet 10 mg PO Q8H PRN (Reason: nausea and vomiting) Qty: 90 5RF dicyclomine 10 mg capsule 10 mg PO TID Qty: 90 3RF hydrocodone-acetaminophen 5-325 mg tablet 1 tab PO DAILY PRN (Reason: Severe Pain) Qty: 20 0RF sucralfate [Carafate] 1 gram tablet 1 g PO BID Qty: 180 3RF lorazepam 2 mg tablet 2 mg PO BID PRN (Reason: alcohol withdrawal) Qty: 60 1RF levetiracetam 500 mg tablet See Rx Instructions .ROUTE .COMPLEX Qty: 60 0RF Dose Instruction: TAKE ONE TABLET BY MOUTH TWICE A DAY FOR SEIZURES Rx Instructions: TAKE ONE TABLET BY MOUTH TWICE A DAY FOR SEIZURES ysdugc-owcxxahb-ahsyrbe 1 EACH capsule,delayed release(DR/EC) 2 cap PO TIDWMEAL Label Comments: -60 thiamine HCl (vitamin B1) 100 mg tablet 100 mg PO DAILY mecobalamin (vitamin B12) 5,000 mcg tablet,chewable 5,000 mcg PO DAILY Referrals Follow up/Referrals: Richard Edgar MD [Primary Care Provider] - See instructions Clinical Impressions Clinical Impression: Pancreatic pseudocyst, Pancreatitis, Chronic pancreatitis Instructions Patient Instructions: DI for Acute Abdominal Pain Discharge ED Provider: Richard Everett General Adult [facility] General Chief complaint: Abdominal Pain Stated complaint: Vomiting, weakness Time Seen by Provider: 06/20/23 14:37 Mode of Arrival: Ambulatory Limitations: No Limitations Description of Symptoms (Recalled from ER Triage Doc. by RN): 57 yo M presents to ED with abdominal pain ongoing for a few days. pt does have hx of pancreatitis. pt reports he went to see his pcp for ongoing pain, pcp alexis blood work. results come back today and pt was told by doctor that he should come to ED for evaluation for pancreatitis. History of Present Illness HPI narrative: This is a 57-year-old male with a history of pancreatitis who originally went to his primary care doctor for ongoing upper abdominal pain who did outpatient labs and told him to go to the emergency department. Patient is with epigastric pain nausea vomiting and unable to hold any food down. Patient says the pain radiates through to the back describes simply as pain nonprovoked not palliated no melena hematochezia or hematemesis. Patient does have a indwelling jejunostomy tube which was placed at [facility]. Patient denies fevers chills or dysuria Related Data Home Medications Medication Instructions Recorded Confirmed albuterol sulfate 90 mcg/actuation 1 puff inhalation Q4HP PRN 11/25/19 11/04/22 breath activated powder Shortness Of Breath inhaler,sensor zplxoa-rrxkaxlk-gjojgiz 2 cap PO TIDWMEAL PANCREATIC 02/18/21 11/04/22 36,000-114,000-180,000 unit INSUFFICIENCY capsule,delay rel mecobalamin (vitamin B12) 5,000 5,000 mcg PO DAILY Supplement 06/06/22 11/04/22 mcg chewable tablet thiamine HCl (vitamin B1) 100 mg 100 mg PO DAILY Supplement 06/06/22 11/04/22 tablet Previous Rx's Medication Instructions Recorded dicyclomine 10 mg capsule 10 mg PO TID Pain #90 caps 02/12/22 hydrocodone 5 mg-acetaminophen 325 1 tab PO DAILY PRN Severe Pain #20 05/23/22 mg tablet tabs sucralfate 1 gram tablet (Carafate) 1 g PO BID #180 tabs 08/13/22 polyethylene glycol 3350 17 17 g PO DAILY #238 grams 08/27/22 gram/dose oral powder (M
--- NOTE | 2022-11-05 15:37 | PC.NURSE ---
calling [facility]
--- NOTE | 2022-11-05 15:39 | PC.NURSE ---
[facility] states they will call back
--- NOTE | 2022-11-05 15:55 | PC.NURSE ---
per ER Doc called [facility] both of those had waiting lists so contacted [facility] and we are awaiting a callback from the GI Doctor to speak with our ER Doc
--- NOTE | 2022-11-05 16:00 | PC.NURSE ---
[facility] called back and is speaking with ER Doc
--- NOTE | 2022-11-05 16:14 | PC.NURSE ---
called [facility] per ER Doc to speak with GI Doctor.. advised they would page the doctor and call us back
--- NOTE | 2022-11-05 16:26 | PC.NURSE ---
KHALIF CHIRINOS on phone with ЕЛЕНА CHIRINOS
--- NOTE | 2022-11-05 16:33 | PC.NURSE ---
DR Gifford HAS SPOKE WITH [facility] AND HAS BEEN PLACED ON WAITING LIST . WE SPOKE WITH [facility] AND [facility] THEY ALL HAVE [address] GIFFORD SPOKE WITH HOSPITALIST AND THEY HAVE AGREED TO ADMIT PT HERE
[2022-11-05 16:50] LABS: Microscopic, Urine URINE MICROSCOPIC (MICROSCOPIC)
--- NOTE | 2022-11-05 16:53 | PC.NURSE ---
call made to [facility] attendant for bed assignment
[2022-11-05 16:55] LABS: Appearance,Urine CLEAR (Clear); Blood, Urine Negative (Negative); Color,Urine YELLOW (Yellow); Glucose,Urine (UA) Negative (Negative); Ketones,Urine 1+ (Negative); Leukocyte Esterase,Urine Negative (Negative); Nitrate,Urine Negative (Negative); PH,Urine 7.5 (5.0-8.5); Protein,Urine Negative (Negative)
[2022-11-05 17:00] LABS: Coronavirus 19, PCR Not Detected (NotDetected); Influenza A, PCR Not Detected (NotDetected); Influenza B, PCR Not Detected (NotDetected)
[2022-11-05 17:09] LABS: Amphetamine/Metha Screen,Urine Negative ng/ml (<1000); Barbiturates Screen,Urine Negative ng/ml (<200)
[2022-11-05 17:10] LABS: Amorphous Sediment,Urine Trace /lpf; Benzodiazepines Screen,Urine Negative ng/ml (<200); Bilirubin,Urine 1+ (Negative)
[2022-11-05 17:11] LABS: Cannabinoid Screen,Urine Negative ng/ml (<50); Cocaine Screen,Urine Negative ng/ml (<300)
[2022-11-05 17:12] LABS: Methadone Screen,Urine Negative ng/ml (<300); Opiate Screen,Urine Negative ng/ml (<300)
[2022-11-05 17:13] LABS: Phencyclidine Screen,Urine Negative ng/ml (<25)
--- NOTE | 2022-11-05 17:23 | PC.NURSE ---
report called to belle on second floor
--- NOTE | 2022-11-05 17:36 | PC.NURSE ---
PT BEING TRANSPORTED UP FOR ADMISSION
--- NOTE | 2022-11-05 18:04 | EXP.HP ---
History of Present Illness *Admission Date: 11/05/22 *Reason for visit:: Loculated pancreatic pseudocyst *History of present illness: Really nice patient with past medical history G-tube placement, gastric emptying issues, history of gastric bypass, metastatic lung cancer with known mets to spine. Patient's status post known radiation and Keytruda therapy. Patient also suffers from chronic pancreatitis. Patient presents complaining of several days of nausea/abdominal pain. Describes abdominal pain as 5/10, sharp, stabbing. Presents with lipase in the 300s. CT abdomen/pelvis done in emergency room shows loculated pseudocyst. Emergency room appropriately attempted transfer to , but beds unavailable for several days. Emergency room then attempted transfer to [facility], with beds unavailable for 24 to 48 hours. Patient subsequently admitted for acute on chronic pancreatitis with loculated pseudocyst management. States pain better after receiving pain meds in emergency room. [facility] Disclaimer: The information contained in this section may have been updated after the patient was seen, as this information can be updated by other users. Medical History Bone marrow disorder Cirrhosis COPD (chronic obstructive pulmonary disease) Gallstone pancreatitis will refer to surgery GERD (gastroesophageal reflux disease) Hypokalemia Pancreatitis Surgical History Hx of cholecystectomy Family History Other Cancer of lung Emphysema lung Social History Smoking Status: Current every day smoker tobacco type: cigarettes packs per day: 3 alcohol intake: current substance use type: denies use current occupational status: unemployed Travel in the last 8 weeks: None household members: family housing: house current occupational exposures/hazards: No caffeine: No Review of Systems Review of Systems Review of systems:: pertinent systems reviewed and negative unless documented below Meds Home Medications and Allergies Home Medications Medication Instructions Recorded Confirmed Type albuterol sulfate 90 mcg/actuation 1 puff inhalation Q4HP PRN 11/25/19 11/05/22 History breath activated powder Shortness Of Breath inhaler,sensor axxcfn-xnlyhhil-vmeoueo 2 cap PO TIDWMEAL PANCREATIC 02/18/21 11/05/22 History 36,000-114,000-180,000 unit INSUFFICIENCY capsule,delay rel dicyclomine 10 mg capsule 10 mg PO TID Pain #90 caps 02/12/22 11/05/22 Rx hydrocodone 5 mg-acetaminophen 325 1 tab PO DAILY PRN Severe Pain #20 05/23/22 11/05/22 Rx mg tablet tabs mecobalamin (vitamin B12) 5,000 5,000 mcg PO DAILY Supplement 06/06/22 11/05/22 History mcg chewable tablet thiamine HCl (vitamin B1) 100 mg 100 mg PO DAILY Supplement 06/06/22 11/05/22 History tablet lorazepam 2 mg tablet 2 mg PO BID PRN alcohol withdrawal 10/07/22 11/05/22 Rx #60 tabs hyoscyamine sulfate 0.125 mg tablet 0.125 mg PO Q4-6H PRN cramping or 10/22/22 11/05/22 Rx diarrhea #60 tabs pantoprazole 40 mg tablet,delayed 40 mg PO BID Acid reflux #60 tabs 10/22/22 11/05/22 Rx release sennosides 8.6 mg-docusate sodium 1 tab-cap PO BID PRN stool 10/22/22 11/05/22 Rx 50 mg tablet (Senexon-S) softener #30 tabs prochlorperazine maleate 10 mg 10 mg PO Q8H PRN nausea and 11/04/22 11/05/22 Rx tablet (Compazine) vomiting #90 tabs levetiracetam 500 mg tablet See Rx Instructions .Route 11/05/22 11/05/22 History .COMPLEX seizures zjnzrp-ivhqenek-rrmgzoy 12,000 cap PO TIDWMEAL . 11/05/22 11/05/22 History 12,000-38,000-60,000 unit capsule,delayed rel (Creon) ondansetron 4 mg disintegrating 4 mg PO NEEDED PRN Nausea 11/05/22 11/05/22 History tablet polyethylene glycol 3350 17 17 g PO DAILY cons
--- NOTE | 2022-11-05 18:21 | PC.NURSE ---
A&OX4. TOLERATING RA WELL. PT STATES HE IS FREE FROM PAIN AT THE MOMENT. AMBULATES WITH STANDBY ASSIST IN ROOM. URINAL AT BEDSIDE. PT HAD A LARGE APPETITE, STATING HE STILL EATS EVEN THOUGH G-TUBE IS PRESENT. PT IS WORRIED ABOUT HIS CAR THAT IS IN THE ER PARKING LOT, KNOWING HE WILL BE TRANSFERRED TO SOON. NO OTHER NEEDS OR C/O SINCE ARRIVAL, B/P HAS BEEN ON THE LOWER SIDE. AWARE. VSS.
--- NOTE | 2022-11-05 19:48 | DIET.NUTRFU ---
RD consulted to initiate TF, nurse helped with interview. Patient has a J-tube and eats orally. Has not been eating well and dependent on TF for nutrition. Today ate dinner at 100%, feels that is the best he has eaten in a while. Patient wants to continue both TF and oral diet. At home he runs TF at 60ml/hr continuous, he has a hx of gastric emptying and is on carafate, creon, miralax, compazine and protonix. Currently on IVF. He may not be hungry at home when running TF ATC, expressed desire to try just running TF at night and let his gut rest during day so he can eat. Ordered osmolite 1.2 at 20ml/hr x8hr during night and will interview in morning and determine goal rate and increase to best meet needs. Ordered minumal flush of 50ml [id number] while IVF running. Labs reviewed hydration and albumin WNL. He BMI is low at 18, will review wt hx with patient.
--- NOTE | 2022-11-05 20:00 | PC.NURSE ---
received in shift change report pt was indecisive about code status. After discussing options with pt, he decided to be a full code as of this evening. I educated pt that at anytime he wishes, he can change his code status. pt verbalized understanding.
[2022-11-05 21:19] LABS: POC Glucose,Bedside 170 (70-110)
--- NOTE | 2022-11-05 21:27 | PC.NURSE ---
Addendum entered by Anibal Whitten RN 11/05/22 21:30: feeding started at 2044. Original Note: spoke with photoresist printer. osmolite 1.2 dank started at 20ml/hr with q6h 50 ml flush running continuously for 8 hours/160ml total. photoresist printer will reevaluated in AM. confirmed gtube placement via auscultation 0 residual noted.
--- NOTE | 2022-11-06 01:20 | PC.NURSE ---
nauseous, gave 4mg zofran IV
[2022-11-06 04:00] VITALS: BP 94/52; PULSE 66; RESP 16; TEMP 36.7; O2SAT 99; BMI 18.1
[2022-11-06 06:06] LABS: Basophils % 0.3 % (0.1-2.0); Eosinophils # 0.2 K/mm3 (0.0-0.4); Eosinophils % 3.6 % (0.1-12.0); Hematocrit 35.1 % (42.0-52.0); Lymphocytes # 1.3 K/mm3 (0.7-4.5); Lymphocytes % 19.8 % (10-50); Mean Corpuscular HGB Conc 32.2 g/dL (31.8-35.4); Mean Corpuscular Hemoglobin 30.2 pg (27.0-31.2); Mean Corpuscular Volume 93.8 fl (80-94); Monocytes # 0.4 K/mm3 (0.1-1.0); Neutrophils # 4.4 K/mm3 (1.8-7.8); Neutrophils % 69.3 % (37.0-80.0); Platelet Count 187 K/mm3 (142-424); Red Blood Count 3.74 M/mm3 (4.60-6.20); Red Cell Distribution Width 13.6 % (11.5-17.5); White Blood Count 6.3 K/mm3 (4.8-10.8)
[2022-11-06 06:10] LABS: Chloride 101 mmol/L (98-107); Potassium 4.4 mmoL/L (3.5-5.1); Sodium 135 mmol/L (136-145)
[2022-11-06 06:13] LABS: Anion Gap 11.4 mEq/L (5-15); Blood Urea Nitrogen 14 mg/dl (9-20); Calcium 8.3 mg/dl (8.4-10.2); Carbon Dioxide 27 mmol/L (22.0-30.0); Creatinine Clearance Estimated 78 mL/min (50-200); Estimated Glomerular Filt Rate 100 ml/min (>60); GFR (African American) 121 ML/MIN (>60); Glucose 114 mg/dl (74-100); Magnesium 1.9 mg/dl (1.6-2.3); Phosphorous 2.9 mg/dl (2.5-4.5)
[2022-11-06 06:19] LABS: Hemoglobin 11.4 g/dL (14.1-18.0)
[2022-11-06 06:23] LABS: Lactic Acid < 0.5 mmol/L (0.7-2.1)
[2022-11-06 07:32] VITALS: BP 132/75; PULSE 67; RESP 18; TEMP 36.5; O2SAT 99
--- NOTE | 2022-11-06 07:55 | HMH.PHAINT1 ---
Pharmacy Intervention Comments: home medication reviewed via patient interview
--- NOTE | 2022-11-06 08:33 | DIET.NUTRFU ---
Addendum entered by Dixie Coy RD, RICKEY 11/06/22 13:43: nursing advanced up to 50ml/hr, tolerating well with no residuals. Addendum entered by Dixie Coy RD, RICKEY 11/06/22 13:32: TF is now up to 40ml/hr, tolerating with no residuals. No complaints of pain or nausea per nursing. Goal rate is 60ml/hr continuous Addendum entered by Diixe Coy RD, RICKEY 11/06/22 08:42: Meds reviewed: compazine/protonix/carafate/senekot/miralax/KCL/Zofran/Creon/Levsin. Labs reviewed slightly depleted at 135L. Patient did not want to review weight hx and asked this RD to leave. Consulted with provider and changed to NPO and increased TF at 30ml/hr and increase to 60ml/hr to provide 1440ml of formula/1728kcal (32kcal/kg)/79gm protein (1.4gm/kg) and 1180ml formula water. Once IVF discontinued increase flush to 50ml [id number] for [id number]/day or 27ml/kg. RD will continue to follow to monitor TF Original Note: This RD saw patient this morning, Reviewed oral diet at home with patient. At home he eats cheerios in the morning and sweet potatoes for dinner then junk food the remainder of the time. Likes sweets- eats multiple honey buns/little debbies and other sweet foods like ice cream. He reports oral food causes him pain today he reported 10/10. He ate 100% breakfast, he reports he likes to eat but causes him pain. He feels like he should not eat and would like the trays discontinued. He is noted to have pancreatitis with cyst present, bowl obstruction, gastric emptying. He reports he had J-tube placed about 3 months ago at , he was running it at 60ml/hr ATC at home but stopped using it about 1 month ago due to the pain the oral diet was causing. He has a pump at home and backpack to use when doing house chores. Yesterday TF ran over night at 20ml/hr [id number] with no residuals. He reports BM Q3D at home and is pretty firm, takes multiple BM meds at home. No BM since admit. He is receiving IVF and takes his meds orally with water-will continue. He also takes multiple medcation for gastic/
[2022-11-06 08:56] VITALS: BMI 18.0
[2022-11-06 15:09] VITALS: BP 91/49; PULSE 68; RESP 18; TEMP 36.7; O2SAT 99
--- NOTE | 2022-11-06 16:51 | EXP.PN ---
Subjective *Date: 11/06/22 *Time: 16:51 Interval history: Patient reports abdominal discomfort after eating breakfast this morning. Patient now amenable to being n.p.o. until nausea/vomiting respiratory distress resolves. No other complaints this AM. Exam Data for Last 24 hours Vital signs and Labs for Last 24 Hours: Temp Pulse Resp BP Pulse Ox 98.0 F 68 18 91/49 L 99 11/06/22 15:11/06/22 15:11/06/22 15:11/06/22 15:11/06/22 15:09 Laboratory Results - last 24 hr 11/05/22 16:42: Urine Color Yellow, Urine Appearance Clear, Urine pH 7.5, Ur Specific [place] 1.010, Urine Protein Negative, Urine Glucose (UA) Negative, Urine Ketones 1+, Urine Blood Negative, Urine Nitrate Negative, Urine Bilirubin 1+ A, Urine Urobilinogen 1.0, Ur Leukocyte Esterase Negative, Urine RBC None, Urine WBC None, Ur Squamous Epith Cells 3-5, Amorphous Sediment Trace, Urine Bacteria None 11/05/22 16:42: Urine Opiates Screen Negative, Urine Methadone Screen Negative, Ur Barbituates Screen Negative, Ur Phencyclidine Scrn Negative, Ur Amphetamines Screen Negative, U Benzodiazepines Scrn Negative, Urine Cocaine Screen Negative, U Marijuana (THC) Screen Negative 11/05/22 16:55: SARS-CoV-2 (PCR) Not detected, Influenza A Untype (PCR) Not detected, Influenza Type B (PCR) Not detected 11/05/22 20:46: POC Glucose 170 H 11/06/22 05:50: WBC 6.3, RBC 3.74 L, Hgb 11.4 L D, Hct 35.1 L, MCV 93.8, MCH 30.2, MCHC 32.2, RDW 13.6, Plt Count 187 D, MPV 9.0, Neut % (Auto) 69.3, Lymph % (Auto) 19.8, Hartley % (Auto) 7.0, Eos % (Auto) 3.6, Baso % (Auto) 0.3, Neut # (Auto) 4.4, Lymph # (Auto) 1.3, [place] # (Auto) 0.4, Eos # (Auto) 0.2, Baso # (Auto) 0.0 11/06/22 05:50: Sodium 135 L, Potassium 4.4, Chloride 101, Carbon Dioxide 27, Anion Gap 11.4, BUN 14 D, Creatinine 0.80, Estimated Creat Clear 78, Estimated GFR 100, Est GFR ( Amer) 121, Glucose 114 H, Calcium 8.3 L, Phosphorus 2.9, Magnesium 1.9 11/06/22 05:50: Lactate < 0.5 L I & O for Last 24 hours: Intake & Output 11/03/22 11/04/22 11/05/22 11/06/22 23:59 23:59 23:59 23:59 Intake Total 120 / 240 2607 / 2607 Output Total 1750 / 1750 Balance 120 / 40 857 / 857 Weight 54.176 kg 54 kg Constitutional Constitutional: no acute distress, thin, cachectic and chronically ill appearing *Routine HEENT Exam Head: Present normocephalic Eye: Present EOMI and normal accommodation ENT: Present mucous membranes moist *Routine Neck Exam Neck: Present supple and full ROM *Routine Respiratory Exam Respiratory: Present diminished air movement; Absent accessory muscle use *Routine Cardiovascular Exam Cardiovascular: Present RRR and Normal S1 *Routine Abdominal Exam Abdominal: Present soft, normoactive bowel sounds and guarding; Absent rebound *Routine Rectal Exam Comments: deferred *Routine Exam Comments: deferred *Routine Extremities Exam Extremities: Present full ROM and normal capillary refill *Routine Skin Exam Skin: Present intact and warm *Routine Neurological Exam Neurological: Present alert and normal reflexes Assessment and Plan *Assessment and plan (1) Pancreatic pseudocyst: Status: Acute Category: Medical Code(s): K86.3 - Pseudocyst of pancreas (2) Abdominal pain: Status: Acute Qualifiers: Abdominal location: generalized Qualified Code(s): R10.84 - Generalized abdominal pain Category: Medical Code(s): R10.9 - Unspecified abdominal pain (3) History of lung cancer: Status: Chronic Category: Medical Code(s): Z85.118 - Personal history of other malignant neoplasm of bronchus and lung (4) Dehydration: Status: Acute Category: Medical Code(s): E86.0 - Dehydration (5) Gastric outlet obstruction: Status: Acute Category: Medical Code(s): K31.1 - Adult hypertrophic pyloric stenosis (6) Pancreatitis: Status: Acute Category: Medical Code(s): K85.90 - Acute p
--- NOTE | 2022-11-06 17:40 | PC.NURSE ---
Patient complained of sharp pain in abdomen twice during shift, medicated with prn pain medications. Patient stated he had relief from medications. No residuals noted from J-tube, tube feeding advanced to 60 ml/hr. VS stable, patient remained on room air. Awaiting bed at
[2022-11-06 19:50] VITALS: BP 89/59; PULSE 81; RESP 18; TEMP 36.8; O2SAT 96
[2022-11-06 20:00] VITALS: O2SAT 96
--- NOTE | 2022-11-06 20:07 | XR_ITS ---
PROCEDURE INFORMATION: Exam: XR Chest Exam date and time: 11/06/2022 8:34 PM Age: 57 years old Clinical indication: Pain; Shortness of breath; Left-sided; Additional info: Shortness of air, chest pain TECHNIQUE: Imaging protocol: Radiologic exam of the chest. Views: 1 view. COMPARISON: CR XR CHEST PORTABLE 06/06/2022 3:15 AM FINDINGS: Lungs: Tubing overlying the left lower lung field which may be external to the patient. No consolidation. Pleural spaces: No pneumothorax. Heart/Mediastinum: No cardiomegaly. Bones/joints: No acute abnormality. IMPRESSION: No definite acute findings.
[2022-11-07 04:00] VITALS: BP 101/62; PULSE 70; RESP 18; TEMP 36.6; O2SAT 96; BMI 19.1
[2022-11-07 06:37] LABS: Basophils % 0.4 % (0.1-2.0); Chloride 104 mmol/L (98-107); Eosinophils # 0.3 K/mm3 (0.0-0.4); Hematocrit 33.2 % (42.0-52.0); Hemoglobin 10.8 g/dL (14.1-18.0); Lymphocytes # 1.1 K/mm3 (0.7-4.5); Lymphocytes % 29.4 % (10-50); Mean Corpuscular HGB Conc 32.4 g/dL (31.8-35.4); Mean Corpuscular Volume 92.4 fl (80-94); Mean Platelet Volume 9.3 fl (7.4-10.4); Monocytes # 0.3 K/mm3 (0.1-1.0); Monocytes % 7.9 % (1.7-9.3); Neutrophils % 55.2 % (37.0-80.0); Platelet Count 166 K/mm3 (142-424); Potassium 4.5 mmoL/L (3.5-5.1); Red Cell Distribution Width 13.8 % (11.5-17.5); Sodium 135 mmol/L (136-145); White Blood Count 3.7 K/mm3 (4.8-10.8)
[2022-11-07 06:40] LABS: Anion Gap 9.5 mEq/L (5-15); Blood Urea Nitrogen 9 mg/dl (9-20); Carbon Dioxide 26 mmol/L (22.0-30.0); Creatinine Clearance Estimated 94 mL/min (50-200); Estimated Glomerular Filt Rate 116 ml/min (>60); GFR (African American) 141 ML/MIN (>60); Phosphorous 2.9 mg/dl (2.5-4.5)
[2022-11-07 06:41] LABS: Glucose 83 mg/dl (74-100); Magnesium 1.9 mg/dl (1.6-2.3)
[2022-11-07 06:43] LABS: Lipase 761 U/L (23-300)
--- NOTE | 2022-11-07 06:44 | PC.NURSE ---
0640 CRITICAL LAB VALUE RECEIVED FROM LAB, LIPASE 761. CECIL Wheatley HAT MODEL NOTIFIED.
--- NOTE | 2022-11-07 06:45 | PC.NURSE ---
PATIENT RESTING IN BED. REFUSED BED BATH. TF OSMOLITE INFUSING AT 60 ML/HR/PUMP. TOLERATING WELL. DRSG C/D/I TO GT SITE. AWAITING TRANSFER TO [facility] WHEN BED AVAILABLE.
[2022-11-07 08:00] VITALS: BP 102/61; PULSE 74; RESP 16; TEMP 36.5; O2SAT 96
--- NOTE | 2022-11-07 08:46 | PC.NURSE ---
TECH NOTE; NOTIFIED NURSE OF LOW BLOOD PRESSURE 0800 VITAL SIGNS Isis MIRANDA, SRNA
--- NOTE | 2022-11-07 10:39 | DIET.NUTRFU ---
Patient is tolerating goal rate of 60ml/hr of Osmolite 1.2, providing 100% of needs with no residuals. He had BM this morning. He did complain of abdominal pain yesterday, secondary to dx, medications were effective. Patient started on clear liquids this morning, mainly just to provide some water by mouth, he was encouraged by nursing not to over do it and not to order carbonated beverages. he is still waiting for transfer to have pancreatic cysts drained. Urine output was good yesterday at 3425ml. Labs reviewed, Na 135L and lipase up at 761. Continues on IVF, continue minimal flush via J-tube.
[2022-11-07 11:56] LABS: POC Glucose,Bedside 146 (70-110)
--- NOTE | 2022-11-07 13:46 | EXP.PN ---
Subjective *Date: 11/07/22 *Time: 14:03 Interval history: Patient states nausea/vomiting better after bowel rest yesterday. Now would like to try clear liquid diet I at least want something to drink. Denies fevers, chills overnight. Eager for transfer to [facility] once bed available. Exam Data for Last 24 hours Vital signs and Labs for Last 24 Hours: Temp Pulse Resp BP Pulse Ox 97.7 F 74 16 102/61 L 96 11/07/22 08:00 11/07/22 08:00 11/07/22 08:00 11/07/22 08:00 11/07/22 08:00 Laboratory Results - last 24 hr 11/07/22 05:39: WBC 3.7 L D, RBC 3.60 L, Hgb 10.8 L, Hct 33.2 L, MCV 92.4, MCH 30.0, MCHC 32.4, RDW 13.8, Plt Count 166, MPV 9.3, Neut % (Auto) 55.2, Lymph % (Auto) 29.4, [place] % (Auto) 7.9, Eos % (Auto) 7.0, Baso % (Auto) 0.4, Neut # (Auto) 2.0, Lymph # (Auto) 1.1, [place] # (Auto) 0.3, Eos # (Auto) 0.3, Baso # (Auto) 0.0 11/07/22 05:39: Sodium 135 L, Potassium 4.5, Chloride 104, Carbon Dioxide 26, Anion Gap 9.5, BUN 9 D, Creatinine 0.70, Estimated Creat Clear 94, Estimated GFR 116, Est GFR ( Amer) 141, Glucose 83 D, Calcium 8.0 L, Phosphorus 2.9, Magnesium 1.9 11/07/22 05:39: Lipase 761 H 11/07/22 11:47: POC Glucose 146 H I & O for Last 24 hours: Intake & Output 11/04/22 11/05/22 11/06/22 11/07/22 23:59 23:59 23:59 23:59 Intake Total 120 / 240 4388 / 4388 1055 / 1055 Output Total 3425 / 3425 1390 / 1390 Balance 120 / 40 963 / 963 -335 / -335 Weight 54.176 kg 54 kg 57.351 kg Constitutional Constitutional: no acute distress, thin and cachectic *Routine HEENT Exam Head: Present normocephalic and atraumatic Eye: Present EOMI and normal accommodation ENT: Present mucous membranes moist *Routine Neck Exam Neck: Present supple Assessment and Plan *Assessment and plan (1) Pancreatic pseudocyst: Status: Acute Category: Medical Code(s): K86.3 - Pseudocyst of pancreas (2) Pancreatitis, acute: Status: Acute Qualifiers: Acute pancreatitis complication: unspecified Pancreatitis type: alcohol induced Qualified Code(s): K85.20 - Alcohol induced acute pancreatitis without necrosis or infection Category: Medical Code(s): K85.90 - Acute pancreatitis without necrosis or infection, unspecified (3) History of lung cancer: Status: Chronic Category: Medical Code(s): Z85.118 - Personal history of other malignant neoplasm of bronchus and lung (4) Dehydration: Status: Acute Category: Medical Code(s): E86.0 - Dehydration (5) Chronic pancreatitis: Status: Acute Category: Medical Code(s): K86.1 - Other chronic pancreatitis (6) Gastric outlet obstruction: Status: Acute Category: Medical Code(s): K31.1 - Adult hypertrophic pyloric stenosis Plan Acute on chronic pancreatitis with loculated pseudocyst: - Admit for supportive care, transfer to [facility] once bed available, empiric antibiotics. -11/07/2022 still awaiting transfer to [facility]. Condition improved with bowel rest over the past 24 hours. Will advance diet to clears today. Chronic malnutrition secondary to gastric outlet obstruction: ? Continue J-tube feeds. Hypotension/Hypoglycemia secondary to dehydration: ? Cautious rehydration during hospitalization. - 11/07 A.m. blood work glucose low normal while Accu-Cheks throughout day high normal. We will tentatively place patient on D5 LR over next 24 hours and watch trend closely. PPx: Lovenox subcutaneous FEN - G-tube feeds - downgraded to n.p.o. 11/06 secondary to nausea/vomiting issues. - Upgraded 11/07 to clear liquid diet. CODE STATUS 11/07/22 patient now desires full CODE STATUS. Changed to full code. Disposition: -Hopefully transfer to [facility] within next 72 hours once bed available. - 11/07/22 at 201pm called [facility] [place] transfer line [phone] ([phone]). Pt still on pending list and my get b
[2022-11-07 16:00] VITALS: BP 95/56; PULSE 73; RESP 16; TEMP 36.6; O2SAT 97
--- NOTE | 2022-11-07 16:52 | PC.NURSE ---
TECH NOTE; PT REFUSED BATHING THREE TIMES THIS SHIFT, RN NOTIFIED Isis MIRANDA, SRNA
--- NOTE | 2022-11-07 17:11 | PC.NURSE ---
Patient stated he just wanted to rest for most of shift. Patient offered to get a bath several times in the am but stated he would later in shift. Later in shift patient stated he did not want a bath and still just wanted a bath. VS stable and patient remained on room air. Tube feeding tolerated, 0 residual noted. Patient able to have BM in am. Some nausea noted, prn pain medication given with relief noted.
[2022-11-07 17:53] LABS: POC Glucose,Bedside 127 (70-110)
--- NOTE | 2022-11-07 18:50 | PC.NURSE ---
TECH NOTE; PT AGREED TO BATHE, REFUSED TO WEAR HOSPITAL GOWN, PT WANTED TO PUT THE SAME CLOTHING BACK ON. BED LINEN CHANGED AND NAIL CARE PROVIDED TO [employer]ENAILS. PT REQUESTED GAUZE BE CHANGED ON ABDOMEN FOR FEEDING TUBE, NURSE NOTIFIED. Isis MIRANDA, SRNA
[2022-11-07 20:00] VITALS: BP 110/67; PULSE 61; RESP 18; TEMP 36.5; O2SAT 100; O2SAT 97
--- NOTE | 2022-11-07 21:46 | PC.NURSE ---
UNABLE TO GET OSMOLITE TONIGHT. PATIENT IS TOLERATING CLEAR LIQS. CECIL Wheatley RESPIRATORY CARE INSTRUCTOR NOTIFIED. TO HOLD TUBE FEEDING UNTIL AM WHEN ABLE TO GET OSMOLITE.
--- NOTE | 2022-11-07 22:23 | PC.NURSE ---
RESTING IN BED. WATCHING TV. NO FURTHER C/O GAS PAINS SINCE 2148. SIMETHICON EFFECTIVE. GT IN PLACE. VOID PER URINAL. URINE CLEAR YELLOW.
[2022-11-07 23:17] LABS: POC Glucose,Bedside 154 (70-110)
[2022-11-08 04:00] VITALS: BP 87/47; PULSE 66; RESP 20; TEMP 36.7; O2SAT 95; BMI 18.8
[2022-11-08 05:42] LABS: POC Glucose,Bedside 120 (70-110)
[2022-11-08 05:57] LABS: Basophils % 0.2 % (0.1-2.0); Eosinophils # 0.3 K/mm3 (0.0-0.4); Eosinophils % 5.8 % (0.1-12.0); Hematocrit 33.2 % (42.0-52.0); Hemoglobin 10.7 g/dL (14.1-18.0); Lymphocytes # 1.1 K/mm3 (0.7-4.5); Lymphocytes % 24.2 % (10-50); Mean Corpuscular HGB Conc 32.2 g/dL (31.8-35.4); Mean Corpuscular Hemoglobin 29.7 pg (27.0-31.2); Mean Corpuscular Volume 92.1 fl (80-94); Mean Platelet Volume 9.5 fl (7.4-10.4); Monocytes # 0.4 K/mm3 (0.1-1.0); Monocytes % 7.9 % (1.7-9.3); Neutrophils # 2.9 K/mm3 (1.8-7.8); Neutrophils % 61.9 % (37.0-80.0); Platelet Count 180 K/mm3 (142-424); Red Cell Distribution Width 13.8 % (11.5-17.5); White Blood Count 4.7 K/mm3 (4.8-10.8)
[2022-11-08 06:06] LABS: Chloride 102 mmol/L (98-107)
[2022-11-08 06:07] LABS: Potassium 4.4 mmoL/L (3.5-5.1); Sodium 134 mmol/L (136-145)
[2022-11-08 06:09] LABS: Blood Urea Nitrogen 10 mg/dl (9-20); Creatinine Clearance Estimated 109 mL/min (50-200); Estimated Glomerular Filt Rate 139 ml/min (>60); GFR (African American) 168 ML/MIN (>60)
[2022-11-08 06:10] LABS: Anion Gap 11.4 mEq/L (5-15); Calcium 8.1 mg/dl (8.4-10.2); Carbon Dioxide 25 mmol/L (22.0-30.0); Glucose 107 mg/dl (74-100); Magnesium 1.8 mg/dl (1.6-2.3); Phosphorous 3.2 mg/dl (2.5-4.5)
[2022-11-08 06:29] LABS: Lipase 992 U/L (23-300)
--- NOTE | 2022-11-08 06:31 | PC.NURSE ---
0630 lab called critical lipase 992. Satnam Wheatley NP notified.
[2022-11-08 07:20] VITALS: BP 92/55; PULSE 68; RESP 18; TEMP 36.7; O2SAT 99
--- NOTE | 2022-11-08 08:17 | EXP.PHA.PN ---
Subjective *Date: 11/08/22 *Time: 08:17 Medical Exam Vital signs and Labs for Last 24 Hours: Vital Signs Temp Pulse Resp BP Pulse Ox 11/08/22 07:20 98.0 F 68 18 92/55 L 99 11/08/22 04:00 98.1 F 66 20 87/47 L 95 11/07/22 20:00 97.7 F 61 18 110/67 100 11/07/22 20:00 97 11/07/22 16:00 97.9 F 73 16 95/56 L 97 Intake and Output 11/07/22 11/08/22 11/08/22 23:59 07:59 15:59 Intake Total 3308 / 4603 1605 / 1605 Output Total 900 / 2290 1950 / 1950 Balance 2408 / 2313 -345 / -345 Intake: Intake, Oral Amount 720 / 960 720 / 720 Intake, Tube Feeding Amount 1064 / 1392 Intake, Tube Irrigant Amount 50 / 50 Intake, Total IV Amount 1474 / 2201 885 / 885 Cefepime HCl 2 gm In 0.9 % 100 / 200 100 / 100 Sodium Chloride 100 ml @ 200 mls/hr IV Q12H BUZZ Rx#:[id number] Dextrose 5%-Lactated Ringers 1, 685 / 685 000 ml @ 125 mls/hr IV .Q8H BUZZ Rx#:[id number] Lactated Ringers 1000ML 1,000 1274 / 1801 ml @ 100 mls/hr IV .Q10H BUZZ Rx #:[id number] Metronidaz/Sod Chl 500 mg In 100 / 200 100 / 100 100 ml @ 100 mls/hr IV Q8H BUZZ Rx#:[id number] Output: Output, Urine Amount 900 / 2290 1950 / 1950 Other: Number of Unmeasured Voids 2 0 Weight 56.501 kg Patient Weight 11/08/22 23:59 Weight 56.501 kg Laboratory Results - last 24 hr 11/07/22 11:47: POC Glucose 146 H 11/07/22 17:35: POC Glucose 127 H 11/07/22 23:09: POC Glucose 154 H 11/08/22 05:34: POC Glucose 120 H 11/08/22 05:35: WBC 4.7 L D, RBC 3.60 L, Hgb 10.7 L, Hct 33.2 L, MCV 92.1, MCH 29.7, MCHC 32.2, RDW 13.8, Plt Count 180, MPV 9.5, Neut % (Auto) 61.9, Lymph % (Auto) 24.2, [place] % (Auto) 7.9, Eos % (Auto) 5.8, Baso % (Auto) 0.2, Neut # (Auto) 2.9, Lymph # (Auto) 1.1, [place] # (Auto) 0.4, Eos # (Auto) 0.3, Baso # (Auto) 0.0 11/08/22 05:35: Sodium 134 L, Potassium 4.4, Chloride 102, Carbon Dioxide 25, Anion Gap 11.4, BUN 10, Creatinine 0.60 L, Estimated Creat Clear 109, Estimated GFR 139, Est GFR ( Amer) 168, Glucose 107 H D, Calcium 8.1 L, Phosphorus 3.2, Magnesium 1.8 11/08/22 05:35: Lipase 992 H I & O for Labs for Last 24 Hours: Intake & Output 11/05/22 11/06/22 11/07/22 11/08/22 23:59 23:59 23:59 23:59 Intake Total 120 / 240 4388 / 4388 4603 / 4603 1605 / 1605 Output Total 3425 / 3425 2290 / 2290 1950 / 1950 Balance 120 / 40 963 / 963 2313 / 2313 -345 / -345 Weight 54.176 kg 54 kg 57.351 kg 56.501 kg The patient's infection will respond to the chosen ABx?: Yes Is the patient receiving the right drug, dose, and route?: Yes Could a more targeted ABx be ordered?: No (NO CULTURE, WBC WNL OR LOW, AFEBRILE)
--- NOTE | 2022-11-08 08:34 | PC.NURSE ---
COURTESY TECH NOTE; ROUNDED ON PT 0750, PT DENIED NEED FOR DRINK, ASSISTANCE WITH RESTROOM, OR NEED TO REPOSITION IN BED. CALL LIGHT WITHIN REACH, NO FURTHER REQUESTS AT THIS TIME KARIN MARROQUIN
--- NOTE | 2022-11-08 09:56 | DIET.NUTRFU ---
Addendum entered by Dixie Coy RD, LD 11/08/22 13:04: Spoke to provider about discontinuing IVF and providing additional fluid via flush. Changed flush to [id number]/day, Osmolite 1.2 60ml/hr to provide 1440ml of formula/1728kcal (32kcal/kg)/79gm protein (1.4gm/kg) and 1180ml formula water total 1480ml/day or 27ml/kg. RD will continue to follow to monitor TF. provide has also upgraded diet to soft, will continue to follow tolerance of TF and oral intake Original Note: Checked on Patient this morning is up and running. Nursing notified provider they ran out of formula at 21:46 and was unable to restart. More formula was restocked on unit this AM and TF restarted. Tolerating at this time.Lipase continues to be elevated was 761 yesterday and now 992, secondary to dx. He is still reciving dextrose IVF, will continue minimal flush. If discharged home he can continue his previous TF regimen at home. He has a pump and other supplies already
[2022-11-08 12:06] LABS: POC Glucose,Bedside 181 (70-110)
[2022-11-08 15:25] VITALS: BP 98/75; PULSE 72; RESP 18; TEMP 36.9; O2SAT 97
[2022-11-08 18:32] LABS: POC Glucose,Bedside 167 (70-110)
--- NOTE | 2022-11-08 18:48 | PC.NURSE ---
COURTESY TECH NOTE; ROUNDED ON PT, PT DENIED NEED FOR DRINK, ASSISTANCE WITH RESTROOM, AND NEED TO REPOSITION. CALL LIGHT WITHIN REACH, NO FURTHER REQUESTS AT THIS TIME KARIN MARROQUIN
--- NOTE | 2022-11-08 19:20 | PC.NURSE ---
pt up to chair this shift, no complaints of pain, has tolerated diet, tube feeding running
[2022-11-08 20:00] VITALS: BP 92/66; PULSE 72; RESP 18; TEMP 36.7; O2SAT 98
[2022-11-08 21:38] LABS: POC Glucose,Bedside 190 (70-110)
--- NOTE | 2022-11-08 21:53 | EXP.PN ---
Subjective *Date: 11/08/22 *Time: 21:56 Interval history: No new issues. Patient requesting rice cakes and time spent today. Still attempting to obtain outside transfer arrangements for patient. Exam Data for Last 24 hours Vital signs and Labs for Last 24 Hours: Temp Pulse Resp BP Pulse Ox 98.1 F 72 18 92/66 L 98 11/08/22 20:00 11/08/22 20:00 11/08/22 20:00 11/08/22 20:00 11/08/22 20:00 Laboratory Results - last 24 hr 11/07/22 23:09: POC Glucose 154 H 11/08/22 05:34: POC Glucose 120 H 11/08/22 05:35: WBC 4.7 L D, RBC 3.60 L, Hgb 10.7 L, Hct 33.2 L, MCV 92.1, MCH 29.7, MCHC 32.2, RDW 13.8, Plt Count 180, MPV 9.5, Neut % (Auto) 61.9, Lymph % (Auto) 24.2, [place] % (Auto) 7.9, Eos % (Auto) 5.8, Baso % (Auto) 0.2, Neut # (Auto) 2.9, Lymph # (Auto) 1.1, [place] # (Auto) 0.4, Eos # (Auto) 0.3, Baso # (Auto) 0.0 11/08/22 05:35: Sodium 134 L, Potassium 4.4, Chloride 102, Carbon Dioxide 25, Anion Gap 11.4, BUN 10, Creatinine 0.60 L, Estimated Creat Clear 109, Estimated GFR 139, Est GFR ( Amer) 168, Glucose 107 H D, Calcium 8.1 L, Phosphorus 3.2, Magnesium 1.8 11/08/22 05:35: Lipase 992 H 11/08/22 11:54: POC Glucose 181 H 11/08/22 18:23: POC Glucose 167 H 11/08/22 21:31: POC Glucose 190 H I & O for Last 24 hours: Intake & Output 11/05/22 11/06/22 11/07/22 11/08/22 23:59 23:59 23:59 23:59 Intake Total 120 / 240 4388 / 4388 4603 / 4603 2445 / 2445 Output Total 3425 / 3425 2290 / 2290 2750 / 2750 Balance 120 / 40 963 / 963 2313 / 2313 -305 / -305 Weight 54.176 kg 54 kg 57.351 kg 56.501 kg *Routine HEENT Exam Head: Present normocephalic Eye: Present EOMI ENT: Present mucous membranes moist *Routine Neck Exam Neck: Present supple and full ROM *Routine Respiratory Exam Respiratory: Present CTA bilaterally; Absent accessory muscle use *Routine Cardiovascular Exam Cardiovascular: Present RRR and Normal S1 *Routine Abdominal Exam Abdominal: Present soft and normoactive bowel sounds *Routine Rectal Exam Comments: defered *Routine Exam Comments: defered *Routine Extremities Exam Extremities: Present normal capillary refill *Routine Skin Exam Skin: Present intact and warm *Routine Neurological Exam Neurological: Present alert, oriented X3 and normal reflexes Assessment and Plan *Assessment and plan (1) Pancreatic pseudocyst: Status: Acute Category: Medical Code(s): K86.3 - Pseudocyst of pancreas (2) History of lung cancer: Status: Chronic Category: Medical Code(s): Z85.118 - Personal history of other malignant neoplasm of bronchus and lung (3) Dehydration: Status: Acute Category: Medical Code(s): E86.0 - Dehydration (4) Chronic pancreatitis: Status: Acute Category: Medical Code(s): K86.1 - Other chronic pancreatitis (5) Gastric outlet obstruction: Status: Acute Category: Medical Code(s): K31.1 - Adult hypertrophic pyloric stenosis Plan Acute on chronic pancreatitis with loculated pseudocyst: - Admit for supportive care, transfer to [facility] once bed available, empiric antibiotics. -11/07/2022 still awaiting transfer to [facility].? Condition improved with bowel rest over the past 24 hours.? Will advance diet to clears today. Chronic malnutrition secondary to gastric outlet obstruction: ? Continue J-tube feeds. Hypotension/Hypoglycemia secondary to dehydration: ? Cautious rehydration during hospitalization. - 11/07 A.m. blood work glucose low normal while Accu-Cheks throughout day high normal.? We will tentatively place patient on D5 LR over next 24 hours and watch trend closely. PPx: Lovenox subcutaneous FEN - G-tube feeds - downgraded to n.p.o. 11/06 secondary to nausea/vomiting issues.? - Upgraded 11/07 to clear liquid diet. CODE STATUS 11/07/22 patient now desires full CODE STATUS.? Changed to full code. Disposition: -Hopefully transfer to [facility]
[2022-11-09 04:00] VITALS: BP 90/64; PULSE 72; RESP 18; TEMP 36.9; O2SAT 97; BMI 18.8
--- NOTE | 2022-11-09 04:03 | PC.NURSE ---
PATIENT HAS NOT C/O ABDOMINAL PAIN SINCE RECEIVING MORPHINE 4 MG IVP AT 2230. TOLERATING TF OSMOLITE 60 ML/HR/PUMP. BP LOW AT TIME. AFEBRILE. WAITING FOR TRANSFER.
[2022-11-09 06:14] LABS: POC Glucose,Bedside 162 (70-110)
[2022-11-09 07:28] LABS: Basophils % 0.3 % (0.1-2.0); Eosinophils # 0.4 K/mm3 (0.0-0.4); Eosinophils % 8.2 % (0.1-12.0); Hematocrit 34.1 % (42.0-52.0); Hemoglobin 11.1 g/dL (14.1-18.0); Lymphocytes # 1.5 K/mm3 (0.7-4.5); Lymphocytes % 29.8 % (10-50); Mean Corpuscular HGB Conc 32.5 g/dL (31.8-35.4); Mean Corpuscular Hemoglobin 30.2 pg (27.0-31.2); Mean Corpuscular Volume 92.8 fl (80-94); Mean Platelet Volume 9.2 fl (7.4-10.4); Monocytes # 0.4 K/mm3 (0.1-1.0); Monocytes % 8.8 % (1.7-9.3); Neutrophils # 2.6 K/mm3 (1.8-7.8); Platelet Count 181 K/mm3 (142-424); Red Blood Count 3.68 M/mm3 (4.60-6.20); Red Cell Distribution Width 13.8 % (11.5-17.5); White Blood Count 4.9 K/mm3 (4.8-10.8)
[2022-11-09 07:35] LABS: Chloride 103 mmol/L (98-107); Potassium 4.4 mmoL/L (3.5-5.1); Sodium 135 mmol/L (136-145)
[2022-11-09 07:38] VITALS: BP 107/41; PULSE 65; RESP 18; TEMP 36.3; O2SAT 100
[2022-11-09 07:38] LABS: Anion Gap 11.4 mEq/L (5-15); Blood Urea Nitrogen 14 mg/dl (9-20); Carbon Dioxide 25 mmol/L (22.0-30.0); Creatinine Clearance Estimated 93 mL/min (50-200); Estimated Glomerular Filt Rate 116 ml/min (>60); GFR (African American) 141 ML/MIN (>60); Phosphorous 3.3 mg/dl (2.5-4.5)
[2022-11-09 07:39] LABS: Calcium 7.9 mg/dl (8.4-10.2); Glucose 135 mg/dl (74-100); Magnesium 1.8 mg/dl (1.6-2.3)
[2022-11-09 08:31] LABS: Lipase 1222 U/L (23-300)
[2022-11-09 15:18] VITALS: BP 101/64; PULSE 73; RESP 18; TEMP 36.4; O2SAT 100
--- NOTE | 2022-11-09 15:47 | EXP.PN ---
Subjective *Date: 11/09/22 *Time: 15:47 Interval history: Patient's lipase continue to rise. Patient still suffering from intermittent nausea/vomiting but wishes to continue cautious oral feeding. Patient currently on [facility] transfer list awaiting bed. Exam Data for Last 24 hours Vital signs and Labs for Last 24 Hours: Temp Pulse Resp BP Pulse Ox 97.5 F L 73 18 101/64 L 100 11/09/22 15:18 11/09/22 15:18 11/09/22 15:18 11/09/22 15:18 11/09/22 15:18 Laboratory Results - last 24 hr 11/08/22 18:23: POC Glucose 167 H 11/08/22 21:31: POC Glucose 190 H 11/09/22 05:48: POC Glucose 162 H 11/09/22 06:41: WBC 4.9, RBC 3.68 L, Hgb 11.1 L, Hct 34.1 L, MCV 92.8, MCH 30.2, MCHC 32.5, RDW 13.8, Plt Count 181, MPV 9.2, Neut % (Auto) 53.0, Lymph % (Auto) 29.8, [place] % (Auto) 8.8, Eos % (Auto) 8.2, Baso % (Auto) 0.3, Neut # (Auto) 2.6, Lymph # (Auto) 1.5, [place] # (Auto) 0.4, Eos # (Auto) 0.4, Baso # (Auto) 0.0 11/09/22 06:41: Sodium 135 L, Potassium 4.4, Chloride 103, Carbon Dioxide 25, Anion Gap 11.4, BUN 14 D, Creatinine 0.70, Estimated Creat Clear 93, Estimated GFR 116, Est GFR ( Amer) 141, Glucose 135 H, Calcium 7.9 L, Phosphorus 3.3, Magnesium 1.8 11/09/22 06:41: Lipase 1222 H I & O for Last 24 hours: Intake & Output 11/06/22 11/07/22 11/08/22 11/09/22 23:59 23:59 23:59 23:59 Intake Total 4388 / 4388 4603 / 4603 2445 / 2545 2392 / 2392 Output Total 3425 / 3425 2290 / 2290 2750 / 2900 1700 / 1700 Balance 963 / 963 2313 / 2313 -305 / -355 692 / 692 Weight 54 kg 57.351 kg 56.501 kg 56.416 kg *Routine HEENT Exam Head: Present normocephalic Eye: Present EOMI and normal accommodation ENT: Present mucous membranes moist *Routine Neck Exam Neck: Present supple and full ROM *Routine Respiratory Exam Respiratory: Present CTA bilaterally; Absent accessory muscle use *Routine Cardiovascular Exam Cardiovascular: Present RRR, Normal S1 and Normal S2 *Routine Abdominal Exam Abdominal: Present soft, distended and guarding; Absent rebound *Routine Rectal Exam Comments: deferred *Routine Exam Comments: deferred *Routine Extremities Exam Extremities: Present normal capillary refill *Routine Skin Exam Skin: Present intact *Routine Neurological Exam Neurological: Present alert, oriented X3 and moving all extremities Assessment and Plan *Assessment and plan (1) Pancreatic pseudocyst: Status: Acute Category: Medical Code(s): K86.3 - Pseudocyst of pancreas (2) History of lung cancer: Status: Chronic Category: Medical Code(s): Z85.118 - Personal history of other malignant neoplasm of bronchus and lung (3) Vomiting: Status: Acute Qualifiers: Nausea presence: with nausea Vomiting Intractability: unspecified Vomiting type: unspecified Category: Medical Code(s): R11.10 - Vomiting, unspecified (4) Dehydration: Status: Acute Category: Medical Code(s): E86.0 - Dehydration (5) Anxiety: Status: Acute Category: Medical Code(s): F41.9 - Anxiety disorder, unspecified (6) Pancreatic pseudocyst: Status: Acute Category: Medical Code(s): K86.3 - Pseudocyst of pancreas (7) Gastric outlet obstruction: Status: Acute Category: Medical Code(s): K31.1 - Adult hypertrophic pyloric stenosis Plan Acute on chronic pancreatitis with loculated pseudocyst: - Admit for supportive care, transfer to [facility] once bed available, empiric antibiotics. -11/07/2022 still awaiting transfer to [facility].? Condition improved with bowel rest over the past 24 hours.? Will advance diet to clears today. ?11/09 still awaiting transfer to outside institution. Still suffering from intermittent abdominal discomfort/nausea. Lipase continues to elevate. Chronic malnutrition secondary to gastric outlet obstruction: ? Continue J-tube f
[2022-11-09 17:58] LABS: POC Glucose,Bedside 122 (70-110)
--- NOTE | 2022-11-09 18:56 | PC.NURSE ---
bed available @ [facility]. Report clled to Alejandro Allen
--- NOTE | 2022-11-09 19:17 | EXP.DC.SUM ---
General Admission date:: 11/05/22 Discharge date: 11/09/22 HPI HPI HPI: Really nice patient with past medical history G-tube placement, gastric emptying issues, history of gastric bypass, metastatic lung cancer with known mets to spine. Patient's status post known radiation and Keytruda therapy. Patient also suffers from chronic pancreatitis. Patient presents complaining of several days of nausea/abdominal pain. Describes abdominal pain as 5/10, sharp, stabbing. Presents with lipase in the 300s. CT abdomen/pelvis done in emergency room shows loculated pseudocyst. Emergency room appropriately attempted transfer to , but beds unavailable for several days. Emergency room then attempted transfer to [facility], with beds unavailable for 24 to 48 hours. Patient subsequently admitted for acute on chronic pancreatitis with loculated pseudocyst management. States pain better after receiving pain meds in emergency room. Hospital Course Hospital Course Hospital Course: Really nice yet unfortunate patient with past medical history of metastatic lung cancer and acute on chronic pancreatitis. Patient presented to emergency room 11/05/2022 complaining of abdominal discomfort, nausea. Patient also had elevated lipase and diagnosed with acute on chronic pancreatitis. Patient also has past medical history of gastric outlet obstruction with J-tube placement. Patient placed on J-tube feedings throughout hospitalization. Patient intermittently had oral feedings during hospitalization. Patient noted to suffer from numerous nausea/abdominal pain episodes while eating, yet expressed continued desire to continue soft diet throughout hospitalization. Patient will require evaluation for gastric outlet obstruction at [facility] after transfer. Patient empirically started on IV antibiotics at time of admission. General surgery Dr. Trammell was consulted on day of admission, and stated patient and appropriate for long-term admission or surgical amelioration of problem at this institution. General surgery recommended MICAELA transfer to [facility] for possible infected pseudocyst drainage, and gastric outlet obstruction evaluation. CT abdomen/pelvis done at admission showed numerous pseudocysts with questionable acute infection. Radiologist commented that pseudocyst had increased in number and size versus previous CT abdomen/pelvis a few months ago. Emergency room physician called [facility]. [facility] accepted patient, but bed was unavailable from over 5 days. [facility] was also called by emergency room physician at time of admission, and accepted patient, but inpatient transfer bed never became available. [facility] was called, but had no bed availability. [facility] was called, but also had no bed availability. [facility] was contacted, with bed become available finally 11/09/2022 around 7 PM. Patient then transferred to [facility] without hesitation or complication. Of special note, patient's lipase is continued to trend upward during hospitalization and by time of hospital discharge patient's lipase over thousand. Patient afebrile without leukocytosis throughout hospitalization on IV cefepime/Flagyl therapy. Patient did suffer from low normal blood pressures throughout hospitalization, treated initially with maintenance IV fluids, then by increasing J-tube flush amount administration. Exam Data for Last 24 hours Vital signs and Labs for Last 24 Hours: Temp Pulse Resp BP Pulse Ox 97.5 F L 73 18 101/64 L 100 11/09/22 15:18 11/09/22 15:18 11/09/22 15:18 11/09/22 15:18 11/09/22 15:18 Laboratory Results - last 24 hr 11/08/22 21:31: POC Glucose 190 H 11/09/22 05:48: POC Glucose 162 H 11/09/22 06:41: WBC 4.9, RBC 3.68 L, Hgb 11.1 L, Hct 34.1 L, MCV 92.8, MCH 30.2, MCHC 32.5, RDW 13.8, Plt Count 18
[2022-11-09 19:44] VITALS: BP 96/57; PULSE 94; RESP 18; TEMP 36.8; O2SAT 99
--- NOTE | 2022-11-09 20:09 | PC.NURSE ---
[facility] CALLED TO TELL THIS RN THAT PT ROOM STATUS AND LOCATION HAD CHANGED. PT IS STILL GOING TO [facility] BUT WILL NOW BE ON . REPORT WAS GIVEN TO NANNETTE CANTU AT [facility] AT 2009.
[2022-11-09 20:41] LABS: POC Glucose,Bedside 132 (70-110)
[2022-11-09 21:46] LABS: POC Glucose,Bedside 97 (70-110)
--- NOTE | 2022-11-09 21:50 | PC.NURSE ---
PT CALLED OUT TO SAY HE FELT WEIRD AND WANTED HIS VITAL SIGNS TAKEN. VITALS ARE WNL AND FSBS WAS 97. NIDIA CADENA WAS NOTIFIED AND SAW PT. TAMMI STATED IT WAS OK TO GIVE PT'S KEPPRA 15 MINUTES EARLY AND TO GIVE HIM A DOSE OF ATIVAN.
--- NOTE | 2022-11-09 22:23 | PC.NURSE ---
Pt off floor via stretcher with EMS to [facility] @ this time
== END 2022-11-09 22:23 | disposition short-term general hospital (02) | DRG 438 ==
LOC: ER 16:37 → 2ND 11-06 00:11
PROVIDERS: Admitting Provider Internal Medicine; Emergency Provider Emergency Medicine; PCP Family Medicine; Visit Provider Internal Medicine
DX: K85.20 Alcohol induced acute pancreatitis without necrosis or infection (principal); E43 Unspecified severe protein-calorie malnutrition; C34.90 Malignant neoplasm of unspecified part of unspecified bronchus or lung; K86.3 Pseudocyst of pancreas; K31.1 Adult hypertrophic pyloric stenosis; C79.51 Secondary malignant neoplasm of bone; Z68.1 Body mass index [BMI] 19.9 or less, adult; K56.609 Unspecified intestinal obstruction, unspecified as to partial versus complete obstruction; E46 Unspecified protein-calorie malnutrition; K85.90 Acute pancreatitis without necrosis or infection, unspecified; E86.0 Dehydration; F17.210 Nicotine dependence, cigarettes, uncomplicated; Z79.899 Other long term (current) drug therapy; J44.9 Chronic obstructive pulmonary disease, unspecified; K74.60 Unspecified cirrhosis of liver; F41.9 Anxiety disorder, unspecified; Z93.1 Gastrostomy status
CPT/HCPCS: 36415; 71045; 74177; 80048; 80053; 80305; 81001; 82962; 83605; 83690; 83735; 84100; 85025; 87636; 99285; C9803; J2405; Q9967; U0003; U0005

== ENCOUNTER → 2022-12-13 11:00 | Outpatient (CLI) | payer MEDICAID, SELFPAY ==
[2022-12-13 17:59] LABS: Basophils % 0.2 % (0.1-2.0); Eosinophils # 0.3 K/mm3 (0.0-0.4); Eosinophils % 5.4 % (0.1-12.0); Hematocrit 34.9 % (42.0-52.0); Hemoglobin 11.4 g/dL (14.1-18.0); Lymphocytes # 1.7 K/mm3 (0.7-4.5); Lymphocytes % 27.9 % (10-50); Mean Corpuscular HGB Conc 32.6 g/dL (31.8-35.4); Monocytes # 0.5 K/mm3 (0.1-1.0); Monocytes % 7.7 % (1.7-9.3); Neutrophils # 3.6 K/mm3 (1.8-7.8); Neutrophils % 58.8 % (37.0-80.0); Platelet Count 244 K/mm3 (142-424); Red Blood Count 3.68 M/mm3 (4.60-6.20); Red Cell Distribution Width 14.6 % (11.5-17.5); White Blood Count 6.2 K/mm3 (4.8-10.8)
[2022-12-13 18:15] LABS: Alanine Aminotransferase 35 U/L (12-78); Albumin Level 3.9 g/dl (3.5-5.0); Albumin/Globulin Ratio 1.4 (1.1-1.8); Alkaline Phosphatase 138 U/L (38-126); Anion Gap 11.3 mEq/L (5-15); Aspartate Amino Transferase 37 U/L (17-59); Bilirubin,Total 0.6 mg/dl (0.2-1.3); Blood Urea Nitrogen 13 mg/dl (9-20); Calcium 9.2 mg/dl (8.4-10.2); Carbon Dioxide 31 mmol/L (22.0-30.0); Chloride 103 mmol/L (98-107); Estimated Glomerular Filt Rate 116 ml/min (>60); GFR (African American) 141 ML/MIN (>60); Globulin 2.8 g/dL (1.3-3.2); Glucose 115 mg/dl (74-100); Potassium 5.3 mmoL/L (3.5-5.1); Sodium 140 mmol/L (136-145); Total Protein,Serum 6.7 g/dl (6.3-8.2)
[2022-12-13 18:28] LABS: Lipase 2533 U/L (23-300)
== END ==
PROVIDERS: PCP Family Medicine; Visit Provider Family Medicine
DX: K86.3 Pseudocyst of pancreas (principal)
CPT/HCPCS: 80053; 83690; 85025

== ENCOUNTER → 2022-12-20 23:17 | Outpatient (CLI) | payer MEDICAID, SELFPAY ==
[2022-12-20 18:34] LABS: Basophils % 0.2 % (0.1-2.0); Eosinophils # 0.3 K/mm3 (0.0-0.4); Eosinophils % 5.1 % (0.1-12.0); Hematocrit 33.8 % (42.0-52.0); Hemoglobin 10.9 g/dL (14.1-18.0); Lymphocytes # 1.6 K/mm3 (0.7-4.5); Lymphocytes % 26.1 % (10-50); Mean Corpuscular HGB Conc 32.2 g/dL (31.8-35.4); Mean Corpuscular Hemoglobin 30.4 pg (27.0-31.2); Mean Corpuscular Volume 94.4 fl (80-94); Mean Platelet Volume 9.1 fl (7.4-10.4); Monocytes # 0.5 K/mm3 (0.1-1.0); Monocytes % 8.5 % (1.7-9.3); Neutrophils # 3.7 K/mm3 (1.8-7.8); Neutrophils % 60.1 % (37.0-80.0); Platelet Count 257 K/mm3 (142-424); Red Blood Count 3.58 M/mm3 (4.60-6.20); Red Cell Distribution Width 14.4 % (11.5-17.5); White Blood Count 6.2 K/mm3 (4.8-10.8)
[2022-12-20 19:09] LABS: Alanine Aminotransferase 21 U/L (12-78); Albumin Level 3.7 g/dl (3.5-5.0); Albumin/Globulin Ratio 1.3 (1.1-1.8); Alkaline Phosphatase 137 U/L (38-126); Anion Gap 12.6 mEq/L (5-15); Aspartate Amino Transferase 25 U/L (17-59); Bilirubin,Total 0.2 mg/dl (0.2-1.3); Blood Urea Nitrogen 13 mg/dl (9-20); Calcium 8.9 mg/dl (8.4-10.2); Carbon Dioxide 23 mmol/L (22.0-30.0); Chloride 107 mmol/L (98-107); Estimated Glomerular Filt Rate 116 ml/min (>60); GFR (African American) 141 ML/MIN (>60); Globulin 2.9 g/dL (1.3-3.2); Glucose 100 mg/dl (74-100); Potassium 4.6 mmoL/L (3.5-5.1); Sodium 138 mmol/L (136-145); Total Protein,Serum 6.6 g/dl (6.3-8.2)
[2022-12-20 20:28] LABS: Lipase 4130 U/L (23-300)
== END ==
PROVIDERS: PCP Family Medicine; Visit Provider Family Medicine
DX: K86.3 Pseudocyst of pancreas (principal)
CPT/HCPCS: 80053; 83690; 85025

== ENCOUNTER 2023-01-11 00:35 | Emergency (ER) | payer MEDICAID, SELFPAY ==
[2023-01-11] VITALS (12 sets, daily range): BP systolic 101–118; BP diastolic 58–77; PULSE 63–89; RESP 17–20; TEMP 36.4–36.7; O2SAT 95–100; BMI 17.8
--- NOTE | 2023-01-11 01:04 | CT_ITS ---
PROCEDURE INFORMATION: Exam: CT Abdomen And Pelvis With Contrast Exam date and time: 01/11/2023 2:22 AM Age: 57 years old Clinical indication: Abdominal pain; Additional info: Abd pain known pseudocyst, R flank pain TECHNIQUE: Imaging protocol: Computed tomography of the abdomen and pelvis with contrast. Radiation optimization: All CT scans at this facility use at least one of these dose optimization techniques: automated exposure control; mA and/or kV adjustment per patient size (includes targeted exams where dose is matched to clinical indication); or iterative reconstruction. Contrast material: ISOVUE; Contrast volume: 75 ml; Contrast route: IV; REPORTING DATA: Count of CT and Cardiac NM exams in prior 12 months: This patient has received 4 known CTs and 0 known cardiac nuclear medicine studies in the 12 months prior to the current study. COMPARISON: CT ABDOMEN PELVIS W CON 11/05/2022 1:32 PM FINDINGS: Tubes, catheters and devices: Percutaneous gastro jejunostomy catheter. Lungs: Clear lung bases. Liver: Since the prior examination, there has been tremendous progression cystic changes along the medial aspect of the liver. New 3 x 4 x 7 cm collection along the posterior margin of the intrahepatic IVC. New cystic collection in the portacaval space measures 2 x 4 cm. Other cystic changes in the region of the hepatoduodenal ligament are mildly worsened, as well. These are likely related to pseudocyst formation but the severity of surrounding edema/inflammation raises the possibility of secondary infection. Gallbladder and bile ducts: Prior cholecystectomy noted. Pancreas: The pancreatic duct is prominent but there is no evidence of acute pancreatitis. Calcifications of chronic pancreatitis without definite acute pancreatic inflammation. Spleen: Normal. No splenomegaly. Adrenal glands: Normal. No mass. Kidneys and ureters: 19 mm likely benign left renal cyst requiring no further evaluation. Stomach and bowel: See Liver finding. Appendix: The appendix is not identified but no evidence of appendicitis. Intraperitoneal space: Small volume free pelvic fluid. Vasculature: Severe compression of the inferior vena cava and main portal vein is resulting from worsened cystic accumulation in the upper abdomen. Atherosclerosis is evident. Flow artifact in the inferior vena cava noted at the level of renal venous inflow. Below this level, patency can not be assured due to lack of contrast but no definite thrombus on the basis of this exam. Lymph nodes: Prominent upper abdominal retroperitoneal lymph nodes. Urinary bladder: Unremarkable as visualized. Reproductive: Unremarkable as visualized. Bones/joints: Chronic bilateral pars defects are present at L5. Facet joint degenerative changes are present. Multifocal neural foraminal stenosis, due to degeneration. Soft tissues: Unremarkable. IMPRESSION: 1. Since the prior examination, there has been tremendous progression cystic changes along the medial aspect of the liver. New 3 x 4 x 7 cm collection along the posterior margin of the intrahepatic IVC. New cystic collection in the portacaval space measures 2 x 4 cm. Other cystic changes in the region of the hepatoduodenal ligament are mildly worsened, as well. These are likely related to pseudocyst formation but the severity of surrounding edema/inflammation raises the possibility of secondary infection. Recommend clinical correlation for concern of potential abscess. 2. Small volume free pelvic fluid. 3. Severe compression of the inferior vena cava and main portal vein is resulting from worsened cystic accumulation in the upper abdomen. COMMENTS: Consistent with the [employer]'s Incidental Findings Commit
--- NOTE | 2023-01-11 01:06 | HMH.EDGENADL ---
Discharge Plan Disposition Patient Disposition: Xfer Short-Term Hosp Condition: Fair Chief Complaint: Abdominal Pain Prescriptions Prescriptions: No Action hyoscyamine sulfate 0.125 mg tablet 0.125 mg PO Q4-6H PRN (Reason: cramping or diarrhea) Qty: 60 10RF levetiracetam 500 mg tablet 500 mg PO BID Qty: 180 3RF Rx Instructions: TAKE ONE TABLET BY MOUTH TWICE A DAY FOR SEIZURES [id number] 36,000-114,000- 180,000 unit capsule,delayed release(DR/EC) 2 cap PO TIDWMEAL Qty: 180 12RF pantoprazole 40 mg tablet,delayed release (DR/EC) 40 mg PO BID Qty: 180 10RF prochlorperazine maleate [Compazine] 10 mg tablet 10 mg PO Q8H PRN (Reason: nausea and vomiting) Qty: 90 5RF polyethylene glycol 3350 17 gram powder in packet 17 g PO DAILY Qty: 100 10RF sucralfate [Carafate] 1 gram tablet 1 g PO BID Qty: 180 4RF sennosides-docusate sodium [Senexon-S] 8.6-50 mg tablet 1 tab-cap PO BID PRN (Reason: stool softener) Qty: 30 10RF lorazepam 2 mg tablet 2 mg PO BID PRN (Reason: alcohol withdrawal) Qty: 60 1RF Referrals Follow up/Referrals: Richard Edgar MD [Primary Care Provider] - See instructions Activity Restrictions/Add. Instructions Additional Instructions/Restrictions: You are being transferred to for evaluation of intra-abdominal fluid collections. Clinical Impressions Clinical Impression: Intra-abdominal fluid collection Stand Alone Forms Stand Alone Forms: Transfer Record - ED Instructions Patient Instructions: DI for Acute Abdominal Pain [facility] General Chief complaint: Abdominal Pain Stated complaint: Abdominal Pain,vomiting,unable to relieve gas Time Seen by Provider: 01/11/23 00:59 Mode of Arrival: Ambulatory Source of Information: Patient Limitations: No Limitations Description of Symptoms (Recalled from ER Triage Doc. by RN): Pt presents with c/o upper abdominal pain, nausea, vomiting, increased weakness with chills. Hx of pancreatitis, due to have a pancreatic cyst drained on 01/25 at . Pt states these symptoms started 2 days ago and tonight it started going into his right side and lower back. History of Present Illness HPI narrative: This 57-year-old male with a history of pancreatic pseudocyst presents to the emergency department with concerns of abdominal pain, nausea, 1 episode of vomiting today. Vomiting was nonbloody, nonbilious. Patient's most recent bowel movement was earlier today. It was normal. Patient states he also has right lower abdomen/right flank pain. Patient states he also has history of prior metastatic cancer that is currently in remission. Patient has J-tube. He states he believes he is dehydrated. He states his pain is at baseline, however the right flank pain is not something he consistently has. He denies any dysuria or hematuria. Patient is scheduled to have pseudocyst drained at in January. Related Data Previous Rx's Medication Instructions Recorded sennosides 8.6 mg-docusate sodium 1 tab-cap PO BID PRN stool 10/22/22 50 mg tablet (Senexon-S) softener #30 tabs hyoscyamine sulfate 0.125 mg tablet 0.125 mg PO Q4-6H PRN cramping or 11/15/22 diarrhea #60 tabs levetiracetam 500 mg tablet 500 mg PO BID seizures #180 tabs 11/15/22 unexyu-bbtylhfj-ffyoscn 2 cap PO TIDWMEAL PANCREATIC 11/15/22 36,000-114,000-180,000 unit INSUFFICIENCY #180 caps capsule,delay rel pantoprazole 40 mg tablet,delayed 40 mg PO BID Acid reflux #180 tabs 11/15/22 release polyethylene glycol 3350 17 gram 17 g PO DAILY Constipation #100 ea 11/15/22 oral powder packet prochlorperazine maleate 10 mg 10 mg PO Q8H PRN nausea and 11/15/22 tablet (Compazine) vomiting #90 tabs sucralfate 1 gram tablet (Carafate) 1 g PO BID Ulcers #180 tabs 11/15/22 lorazepam 2 mg tablet 2 mg PO BID PRN alcohol withdrawal 12/13/22 #60 tabs Allergies Allergy/AdvReac Type Severity Reaction Status Date /
[2023-01-11 01:19] LABS: Basophils % 0.6 % (0.1-2.0); Eosinophils # 0.3 K/mm3 (0.0-0.4); Hematocrit 33.8 % (42.0-52.0); Hemoglobin 11.3 g/dL (14.1-18.0); Lymphocytes # 1.7 K/mm3 (0.7-4.5); Lymphocytes % 26.6 % (10-50); Mean Corpuscular HGB Conc 33.5 g/dL (31.8-35.4); Mean Corpuscular Volume 92.6 fl (80-94); Mean Platelet Volume 8.4 fl (7.4-10.4); Monocytes # 0.5 K/mm3 (0.1-1.0); Monocytes % 7.1 % (1.7-9.3); Neutrophils % 61.7 % (37.0-80.0); Platelet Count 198 K/mm3 (142-424); Red Blood Count 3.65 M/mm3 (4.60-6.20); Red Cell Distribution Width 14.5 % (11.5-17.5); White Blood Count 6.4 K/mm3 (4.8-10.8)
[2023-01-11 01:32] LABS: Alanine Aminotransferase 18 U/L (12-78); Albumin Level 3.4 g/dl (3.5-5.0); Albumin/Globulin Ratio 1.1 (1.1-1.8); Alkaline Phosphatase 117 U/L (38-126); Anion Gap 11.3 mEq/L (5-15); Aspartate Amino Transferase 23 U/L (17-59); Bilirubin,Total 0.3 mg/dl (0.2-1.3); Blood Urea Nitrogen 13 mg/dl (9-20); Calcium 8.4 mg/dl (8.4-10.2); Carbon Dioxide 28 mmol/L (22.0-30.0); Chloride 103 mmol/L (98-107); Creatinine Clearance Estimated 87 mL/min (50-200); Estimated Glomerular Filt Rate 116 ml/min (>60); GFR (African American) 141 ML/MIN (>60); Globulin 3.1 g/dL (1.3-3.2); Glucose 104 mg/dl (74-100); Potassium 3.3 mmoL/L (3.5-5.1); Sodium 139 mmol/L (136-145); Total Protein,Serum 6.5 g/dl (6.3-8.2)
[2023-01-11 01:35] LABS: Lactic Acid 0.8 mmol/L (0.7-2.1)
[2023-01-11 01:48] LABS: Lipase 781 U/L (23-300)
--- NOTE | 2023-01-11 01:50 | PC.NURSE ---
Jil from lab reported Lipase 781. Notified Dr. Britt.
--- NOTE | 2023-01-11 01:57 | PC.NURSE ---
Rounded on pt. No needs voiced at this time.
[2023-01-11 02:01] LABS: Microscopic, Urine URINE MICROSCOPIC (MICROSCOPIC)
[2023-01-11 02:06] LABS: Appearance,Urine CLEAR (Clear); Bilirubin,Urine Negative (Negative); Blood, Urine Negative (Negative); Color,Urine YELLOW (Yellow); Glucose,Urine (UA) Negative (Negative); Ketones,Urine TRACE (Negative); Leukocyte Esterase,Urine Negative (Negative); Nitrate,Urine Negative (Negative); Protein,Urine 1+ (Negative); Specific Gravity, Urine 1.015 (1.005-1.030)
--- NOTE | 2023-01-11 02:15 | PC.NURSE ---
Pt gone to RAD via wheelchair
[2023-01-11 02:43] LABS: Bacteria,Urine Trace /lpf
--- NOTE | 2023-01-11 05:08 | PC.NURSE ---
call placed to [facility]
--- NOTE | 2023-01-11 06:01 | PC.NURSE ---
Report called to [facility]
--- NOTE | 2023-01-11 06:22 | PC.NURSE ---
Pt resting comfortably at this time, Vanc started, call light within reach , no other needs at this time
--- NOTE | 2023-01-11 07:42 | PC.NURSE ---
report given to [facility] for transfer to [place]
== END 2023-01-11 07:50 | disposition short-term general hospital (02) ==
PROVIDERS: Emergency Provider Emergency Medicine; PCP Family Medicine
DX: R18.8 Other ascites (principal); K86.3 Pseudocyst of pancreas; K74.60 Unspecified cirrhosis of liver; K21.9 Gastro-esophageal reflux disease without esophagitis; F17.210 Nicotine dependence, cigarettes, uncomplicated
CPT/HCPCS: 74177; 80053; 81001; 83605; 83690; 85025; 96361; 96374; 96375; 99285; J2405; J2543; J3370; Q9967

== ENCOUNTER → 2023-01-30 12:33 | Outpatient (CLI) | payer MEDICAID, SELFPAY ==
--- NOTE | 2023-01-30 12:49 | XR_ITS ---
FINAL REPORT CLINICAL HISTORY: Right lung pain with inspiration COMPARISON: 11/06/2022 FINDINGS: Two views of the chest were obtained. The heart size and pulmonary vascularity are within normal limits. The mediastinum is normal. The lungs are hyperinflated which may represent COPD. No acute pulmonary abnormality is identified. There is no pneumothorax. The bony thorax is intact. IMPRESSION: No active cardiopulmonary disease. Reviewed, Interpreted and Dictated by Parviz Correa III, MD Transcribed by Eliana Ocampo Authenticated and [facility]
== END ==
PROVIDERS: PCP Family Medicine; Visit Provider Family Medicine
DX: Z85.118 Personal history of other malignant neoplasm of bronchus and lung (principal)
CPT/HCPCS: 71046

== ENCOUNTER 2023-02-11 18:51 | Emergency (ER) | payer MEDICAID, SELFPAY ==
[2023-02-11 20:25] VITALS: BP 0/0; PULSE 0; RESP 0; TEMP -17.7; TEMP 0
== END 2023-02-11 20:18 | disposition left against medical advice (07) ==
LOC: ER 19:58
PROVIDERS: Emergency Provider Emergency Medicine; PCP Family Medicine
DX: Z53.21 Procedure and treatment not carried out due to patient leaving prior to being seen by health care provider (principal)
CPT/HCPCS: 99211

== ENCOUNTER 2023-02-13 17:05 | Emergency (ER) | payer MEDICAID, SELFPAY ==
[2023-02-13 17:06] VITALS: BP 104/71; PULSE 96; RESP 18; TEMP 36.6; O2SAT 100; BMI 17.8
--- NOTE | 2023-02-13 17:21 | PC.NURSE ---
DR MEYER AT BEDSIDE
--- NOTE | 2023-02-13 17:49 | HMH.EDGENADL ---
Discharge Plan Disposition Patient Disposition: Home, Self-Care Prescriptions Prescriptions: No Action hyoscyamine sulfate 0.125 mg tablet 0.125 mg PO Q4-6H PRN (Reason: cramping or diarrhea) Qty: 60 10RF levetiracetam 500 mg tablet 500 mg PO BID Qty: 180 3RF Rx Instructions: TAKE ONE TABLET BY MOUTH TWICE A DAY FOR SEIZURES [id number]-bavilmpn-ehxrkcd 36,000-114,000- 180,000 unit capsule,delayed release(DR/EC) 2 cap PO TIDWMEAL Qty: 180 12RF pantoprazole 40 mg tablet,delayed release (DR/EC) 40 mg PO BID Qty: 180 10RF prochlorperazine maleate [Compazine] 10 mg tablet 10 mg PO Q8H PRN (Reason: nausea and vomiting) Qty: 90 5RF polyethylene glycol 3350 17 gram powder in packet 17 g PO DAILY Qty: 100 10RF sucralfate [Carafate] 1 gram tablet 1 g PO BID Qty: 180 4RF sennosides-docusate sodium [Senexon-S] 8.6-50 mg tablet 1 tab-cap PO BID PRN (Reason: stool softener) Qty: 30 10RF lorazepam 2 mg tablet 2 mg PO BID PRN (Reason: alcohol withdrawal) Qty: 60 1RF Referrals Follow up/Referrals: Richard Edgar MD [Primary Care Provider] - See instructions Activity Restrictions/Add. Instructions Additional Instructions/Restrictions: Call your family doctor to establish care for this visit to the emergency department and schedule follow-up within 48 hours to ensure improvement. If you have any worsening of your condition or any other concerning signs or symptoms, return to the emergency department or your primary care doctor for further evaluation. Clinical Impressions Clinical Impression: Acute pancreatitis Instructions Patient Instructions: Acute Pancreatitis Discharge ED Provider: Robert Santana General Adult HPI General Chief complaint: Nausea/Vomiting/Diarrhea Stated complaint: vomiting, abd pain Time Seen by Provider: 02/13/23 17:10 Mode of Arrival: Ambulatory Limitations: No Limitations Description of Symptoms (Recalled from ER Triage Doc. by RN): PT WITH ONGOING VOMITING X 3 DAYS, LEFT SIDED ABDOMINAL PAIN. PT WITH PANCREATIC PSEUDOCYST. History of Present Illness HPI narrative: 57-year-old male with history of alcoholic pancreatitis status post numerous episodes of pancreatitis and development of a pancreatic pseudocyst currently following at outside hospital for transgastric percutaneous drainage of cyst (no longer drinking), alcoholic hepatitis with known varices, bowel stricture, status post J-tube placement, cholecystectomy presenting with vomiting. Patient states he started vomiting 3 days prior to arrival 02/10. Has been able to tolerate small sips of water and [place] since that time, but feels dehydrated. Pain is moderate in intensity, epigastric/left upper quadrant, does not radiate. Associated with nonbloody, nonbilious vomiting. Has not had fevers or chills. No dysuria, hematuria, diarrhea, or other concerns. No yellowing of the skin or eyes as well. Related Data Previous Rx's Medication Instructions Recorded sennosides 8.6 mg-docusate sodium 1 tab-cap PO BID PRN stool 10/22/22 50 mg tablet (Senexon-S) softener #30 tabs hyoscyamine sulfate 0.125 mg tablet 0.125 mg PO Q4-6H PRN cramping or 11/15/22 diarrhea #60 tabs levetiracetam 500 mg tablet 500 mg PO BID seizures #180 tabs 11/15/22 ucjdku-sduzfgzk-rvokqaa 2 cap PO TIDWMEAL PANCREATIC 11/15/22 36,000-114,000-180,000 unit INSUFFICIENCY #180 caps capsule,delay rel pantoprazole 40 mg tablet,delayed 40 mg PO BID Acid reflux #180 tabs 11/15/22 release polyethylene glycol 3350 17 gram 17 g PO DAILY Constipation #100 ea 11/15/22 oral powder packet prochlorperazine maleate 10 mg 10 mg PO Q8H PRN nausea and 11/15/22 tablet (Compazine) vomiting #90 tabs sucralfate 1 gram tablet (Carafate) 1 g PO BID Ulcers #180 tabs 11/15/22 lorazepam 2 mg tablet 2 mg PO BID PRN alcohol withdrawal 12/13/22 #60 tabs Allergies Allergy/AdvReac Type Severity Reaction Status Date / Time cephalexin [From Keflex] All
--- NOTE | 2023-02-13 17:51 | PC.NURSE ---
Urine sample collected and sent to lab
[2023-02-13 17:52] LABS: Microscopic, Urine URINE MICROSCOPIC (MICROSCOPIC)
[2023-02-13 17:59] LABS: Basophils % 0.2 % (0.1-2.0); Eosinophils # 0.2 K/mm3 (0.0-0.4); Eosinophils % 4.2 % (0.1-12.0); Hematocrit 38.8 % (42.0-52.0); Hemoglobin 12.3 g/dL (14.1-18.0); Lymphocytes # 1.5 K/mm3 (0.7-4.5); Lymphocytes % 28.7 % (10-50); Mean Corpuscular HGB Conc 31.7 g/dL (31.8-35.4); Mean Corpuscular Hemoglobin 29.5 pg (27.0-31.2); Mean Corpuscular Volume 93.1 fl (80-94); Mean Platelet Volume 8.4 fl (7.4-10.4); Monocytes # 0.5 K/mm3 (0.1-1.0); Monocytes % 9.2 % (1.7-9.3); Neutrophils % 57.7 % (37.0-80.0); Platelet Count 236 K/mm3 (142-424); Red Blood Count 4.17 M/mm3 (4.60-6.20); Red Cell Distribution Width 13.9 % (11.5-17.5); White Blood Count 5.2 K/mm3 (4.8-10.8)
[2023-02-13 18:03] LABS: Chloride 97 mmol/L (98-107)
[2023-02-13 18:04] LABS: Sodium 134 mmol/L (136-145)
[2023-02-13 18:06] LABS: Alanine Aminotransferase 19 U/L (12-78); Alkaline Phosphatase 108 U/L (38-126); Aspartate Amino Transferase 27 U/L (17-59); Bilirubin,Total 0.3 mg/dl (0.2-1.3); Blood Urea Nitrogen 8 mg/dl (9-20); Carbon Dioxide 31 mmol/L (22.0-30.0); Creatinine Clearance Estimated 102 mL/min (50-200); Estimated Glomerular Filt Rate 139 ml/min (>60); GFR (African American) 168 ML/MIN (>60)
[2023-02-13 18:07] LABS: Albumin Level 3.8 g/dl (3.5-5.0); Albumin/Globulin Ratio 1.2 (1.1-1.8); Calcium 8.8 mg/dl (8.4-10.2); Globulin 3.3 g/dL (1.3-3.2); Glucose 108 mg/dl (74-100); Total Protein,Serum 7.1 g/dl (6.3-8.2)
[2023-02-13 18:08] LABS: Lipase 782 U/L (23-300)
[2023-02-13 18:08] LABS: Appearance,Urine CLEAR (Clear); Bilirubin,Urine Negative (Negative); Blood, Urine Negative (Negative); Color,Urine YELLOW (Yellow); Glucose,Urine (UA) Negative (Negative); Ketones,Urine Negative (Negative); Leukocyte Esterase,Urine Negative (Negative); Nitrate,Urine Negative (Negative); PH,Urine 7.5 (5.0-8.5); Protein,Urine TRACE (Negative)
--- NOTE | 2023-02-13 18:08 | PC.NURSE ---
CRITICAL LIPASE 782 RECEIVED FROM [facility] IN LAB, PT NAME AND R/V. DR MEYER NOTIFIED
--- NOTE | 2023-02-13 18:09 | CT_ITS ---
PROCEDURE INFORMATION: Exam: CT Abdomen And Pelvis With Contrast Exam date and time: 02/13/2023 6:30 PM Age: 57 years old Clinical indication: Abdominal pain; Generalized; Additional info: Pseudocyst, rule out gas, obstruction, infection, TECHNIQUE: Imaging protocol: Computed tomography of the abdomen and pelvis with contrast. Radiation optimization: All CT scans at this facility use at least one of these dose optimization techniques: automated exposure control; mA and/or kV adjustment per patient size (includes targeted exams where dose is matched to clinical indication); or iterative reconstruction. Contrast material: ISOVUE; Contrast volume: 75 ml; Contrast route: IV; REPORTING DATA: Count of CT and Cardiac NM exams in prior 12 months: This patient has received 5 known CTs and 0 known cardiac nuclear medicine studies in the 12 months prior to the current study. COMPARISON: CT ABDOMEN PELVIS W CON 01/11/2023 2:22 AM FINDINGS: Tubes, catheters and devices: GJ tube present in place. Lungs: Lung bases appear clear. Heart: No significant coronary calcifications. No cardiomegaly. No significant pericardial effusion. Liver: Normal. No mass. Gallbladder and bile ducts: Normal. No calcified stones. No ductal dilation. Pancreas: Multiple pseudocysts. No ductal dilation. Spleen: Normal. No splenomegaly. Adrenal glands: Normal. No mass. Kidneys and ureters: Simple renal cysts. No hydronephrosis. Stomach and bowel: Unremarkable. No obstruction. No mucosal thickening. Appendix: No evidence of appendicitis. Intraperitoneal space: Unremarkable. No free air. No significant fluid collection. Retroperitoneal space: No significant retroperitoneal inflammatory changes are noted. Vasculature: Iliocaval veins and IVC poorly opacified. Consider venous Doppler. No abdominal aortic aneurysm. Lymph nodes: Unremarkable. No enlarged lymph nodes. Urinary bladder: Unremarkable as visualized. Reproductive: Unremarkable as visualized. Bones/joints: Vacuum disc L5-S1. No acute fracture. Soft tissues: Unremarkable. IMPRESSION: 1. No acute findings. 2. Multiple large pseudocysts similar to comparison. 3. Iliocaval veins and IVC poorly opacified. Consider venous Doppler. COMMENTS: Consistent with the [employer]'s Incidental Findings Committee white paper (J [employer]iol 2018): Any incidental renal lesion less than 1 cm or classified as too small to characterize, or any incidental cystic renal lesion characterized as simple-appearing, is likely benign. No follow-up imaging is recommended for these lesions per consensus recommendations based on imaging criteria.
[2023-02-13 18:31] LABS: Lactic Acid 0.8 mmol/L (0.7-2.1)
[2023-02-13 18:33] LABS: Squamous Epithelial Cell,Urine Occasional #/hpf (0-5); WBC,Urine Occasional #/hpf (0-3)
--- NOTE | 2023-02-13 20:48 | PC.NURSE ---
Dr. Santana s/w hospitalist for admission.
--- NOTE | 2023-02-13 20:54 | PC.NURSE ---
House notified for admission.
--- NOTE | 2023-02-13 20:58 | PC.NURSE ---
PATIENT ADMITTED TO [facility] WITH DX OF PANCREATITIS TO SERVICE OF HOSPITALIST.
--- NOTE | 2023-02-13 21:01 | PC.NURSE ---
Hospitalist at bedside
--- NOTE | 2023-02-13 21:14 | PC.NURSE ---
ADMISSION CANCELLED PER HOSPITALIST.
[2023-02-13 21:50] VITALS: BP 117/70; PULSE 75; RESP 18; TEMP 36.6; O2SAT 98
== END 2023-02-13 21:45 | disposition home or self-care (01) ==
LOC: ER 17:13 → 2ND 21:07 → ER 21:37
PROVIDERS: Emergency Provider Emergency Medicine; PCP Family Medicine
DX: K85.90 Acute pancreatitis without necrosis or infection, unspecified (principal); K70.10 Alcoholic hepatitis without ascites; R10.13 Epigastric pain; R11.10 Vomiting, unspecified; J44.9 Chronic obstructive pulmonary disease, unspecified; F17.210 Nicotine dependence, cigarettes, uncomplicated; K21.9 Gastro-esophageal reflux disease without esophagitis
CPT/HCPCS: 74177; 80053; 81001; 83605; 83690; 85025; 96361; 96374; 96375; 99285; J2405; Q9967

== ENCOUNTER → 2023-02-20 09:29 | Outpatient (CLI) | payer MEDICAID, SELFPAY ==
--- NOTE | 2023-02-20 09:30 | CT_ITS ---
FINAL REPORT TECHNIQUE: Axial CT images of the abdomen and pelvis were obtained before and after the administration of IV contrast. This study was performed with techniques to keep radiation doses as low as reasonably achievable (ALARA). Individualized dose reduction techniques using automated exposure control or adjustment of mA and/or kV according to the patient's size were employed. CLINICAL HISTORY: pseudocyst pancreas hx lung, spine ca Jtube COMPARISON: 02/13/2023 FINDINGS: Abdomen: The lung bases are clear. The heart is normal in size. Gastrostomy and jejunostomy tubes are again noted. There are multiple calcifications noted in the pancreas consistent with chronic pancreatitis. There are multiple abdominal fluid collections again identified, consistent with multiple pancreatic pseudocysts. The largest pseudocyst is in the right upper quadrant, and measures 9.6 x 5.4 cm in size, as compared to 10 x 5.1 cm in size on the prior exam, stable. There are multiple other stable in size pseudocysts. There is heterogeneous enhancement of the liver consistent with partial fatty infiltration. The gallbladder has been surgically removed. . The spleen is unremarkable. No adrenal masses present. The kidneys enhance normally, with several left renal cysts identified. The aorta is normal in caliber. A small amount of ascites is noted in the abdomen and pelvis, worse than seen on the prior CT of February 13. Pelvis: The appendix is not well visualized. The urinary bladder is unremarkable. No inflammatory process is seen. There is no evidence of mass or adenopathy. There is no evidence of bowel obstruction. Bilateral L5 pars intraarticularis defects are noted. There is a nonspecific lytic focus in the left iliac bone, measuring 12 mm in size, stable since the prior CT. IMPRESSION: Multiple intra-abdominal fluid collections again identified consistent with numerous pseudocysts. The pseudocysts are stable since the prior CT of February 13. Heterogeneous enhancement of the liver consistent with partial fatty infiltration. There is a small amount of ascites present, somewhat worse than noted on the prior CT. Lytic focus left iliac wing, nonspecific, stable. Reviewed, Interpreted and Dictated by Parviz Correa III, MD Transcribed by Janet Aponte Authenticated and [facility]
== END ==
PROVIDERS: PCP Family Medicine; Visit Provider Family Medicine
DX: K86.3 Pseudocyst of pancreas (principal)
CPT/HCPCS: 74178; Q9967

== ENCOUNTER 2023-02-23 03:41 | Observation (INO) | payer MEDICAID, SELFPAY ==
[2023-02-23] VITALS (10 sets, daily range): BP systolic 93–148; BP diastolic 51–74; PULSE 64–94; RESP 17–24; TEMP 36.6–36.8; O2SAT 95–100; BMI 17.8
--- NOTE | 2023-02-23 03:50 | ECG_ITS ---
APPROVED REPORT Exam: Resting ECG HR:99 bpm ECG Measurements Heart Rate 99 AXES TX 152 P 79 QRSd 87 QRS 93 QT 332 T 60 QTc 388 Conclusion SINUS RHYTHM BORDERLINE RIGHT AXIS DEVIATION [QRS AXIS > 90] BORDERLINE ECG UNCONFIRMED REPORT Electronically signed by : Nelson Regan MD 02/24/2023 19:43:52
--- NOTE | 2023-02-23 03:50 | HMH.EDGENADL ---
Discharge Plan Disposition Patient Disposition: Admitted Clinical Impressions Clinical Impression: Pancreatitis, Abdominal pain, Lung cancer metastatic to bone, Malnutrition compromising bodily function Discharge ED Provider: Cody Peterson Adult HPI General Chief complaint: Abdominal Pain Stated complaint: stomach pain, soa Time Seen by Provider: 02/23/23 03:50 History of Present Illness HPI narrative: 57-year-old male, history of metastatic lung cancer, chronic pancreatitis with pseudocyst, fed by J-tube presents with severe epigastric and generalized abdominal pain for the last couple of days. He believes that he has a flare of his pancreatitis. He believes this is a result of him eating food by mouth over the last few days. He reports that he is not supposed to, he is only supposed to feed his J-tube. Given his pain and concern for pancreatitis, patient has not been feeding his J-tube recently. Is concerned that he might be dehydrated. Patient also reports chest pain and shortness of breath, pain worse with deep inspiration. No reported fevers at home. Related Data Home Medications Medication Instructions Recorded Confirmed levetiracetam 500 mg tablet 500 mg PO BID Seizures 02/23/23 02/23/23 oajplm-cutwkmwe-ctddqtl 2 cap PO TIDWMEAL Pancreatic 02/23/23 02/23/23 36,000-114,000-180,000 unit insufficiency capsule,delay rel lorazepam 2 mg tablet 2 mg PO BIDP PRN alcohol withdrawal 02/23/23 02/23/23 Previous Rx's Medication Instructions Recorded pantoprazole 40 mg tablet,delayed 40 mg PO BID Acid reflux #180 tabs 11/15/22 release sucralfate 1 gram tablet (Carafate) 1 g PO BID Ulcers #180 tabs 11/15/22 Allergies Allergy/AdvReac Type Severity Reaction Status Date / Time cephalexin [From Keflex] Allergy Mild Hives Verified 01/23/23 14:02 sulfamethoxazole Allergy Unknown Verified 01/23/23 14:02 [From BACTRIM] trimethoprim [From BACTRIM] Allergy Unknown Verified 01/23/23 14:02 [facility] Disclaimer: The information contained in this section may have been updated after the patient was seen, as this information can be updated by other users. Medical History Bone marrow disorder Cirrhosis COPD (chronic obstructive pulmonary disease) Gallstone pancreatitis GERD (gastroesophageal reflux disease) Hypokalemia Pancreatitis Surgical History Hx of cholecystectomy Family History Emphysema lung Cancer of lung Social History Smoking Status: Current every day smoker tobacco type: cigarettes packs per day: 3 alcohol intake: current substance use type: denies use current occupational status: unemployed Travel in the last 8 weeks: None household members: family housing: house current occupational exposures/hazards: No caffeine: No ROS Obtained: Yes All systems reviewed & no additional complaints except as documented Physical Exam General General appearance: alert and cachectic Head Head exam: atraumatic Eye Eye exam: Present normal appearance, PERRL and EOMI ENT ENT exam: Present normal oropharynx, mucous membranes dry and normal external ear exam Neck Neck exam: Present normal inspection and full ROM Chest Chest inspection: Present normal inspection, symmetric chest wall rise and tenderness Respiratory Respiratory exam: Present normal lung sounds bilaterally; Absent respiratory distress Cardiovascular Cardiovascular exam: Present regular rate and normal rhythm Abdominal Exam Abdominal exam: Present soft and tenderness (Generalized, worse in the left upper quadrant/epigastrium. J-tube in place.); Absent distention or guarding Extremities Exam Extremities exam: Present normal inspection; Absent edema or joint swelling Back Exam Back exam: Present normal inspection;
--- NOTE | 2023-02-23 04:00 | CT_ITS ---
PROCEDURE INFORMATION: Exam: CT Abdomen And Pelvis With Contrast Exam date and time: 02/23/2023 4:53 AM Age: 57 years old Clinical indication: Abdominal pain; Additional info: Severe abd pain, HX chronic panc, met CA, j tube TECHNIQUE: Imaging protocol: Computed tomography of the abdomen and pelvis with contrast. Radiation optimization: All CT scans at this facility use at least one of these dose optimization techniques: automated exposure control; mA and/or kV adjustment per patient size (includes targeted exams where dose is matched to clinical indication); or iterative reconstruction. Contrast material: ISOVUE; Contrast volume: 70 ml; Contrast route: IV; REPORTING DATA: Count of CT and Cardiac NM exams in prior 12 months: This patient has received 7 known CTs and 0 known cardiac nuclear medicine studies in the 12 months prior to the current study. COMPARISON: CT ABDOMEN PELVIS WO/W CON 02/20/2023 9:53 AM FINDINGS: Tubes, catheters and devices: a gastro jejunostomy feeding tube is present with the distal tip is in the proximal jejunum. Liver: Some fluid also seen along the liver margin. Gallbladder and bile ducts: Normal. No calcified stones. No ductal dilation. Pancreas: Diffuse calcification of the pancreas with atrophy consistent with chronic pancreatitis. Spleen: Normal. No splenomegaly. Adrenal glands: Normal. No mass. Kidneys and ureters: Normal. No hydronephrosis. Stomach and bowel: Multiple fluid collections are again seen in the upper abdomen adjacent to the stomach and the right liver margin. Overall these do not appear to be significantly changed in size or appearance when compared to the prior study. Appendix: No evidence of appendicitis. Intraperitoneal space: Some free fluid is seen in the deep pelvis. Vasculature: Unremarkable. No abdominal aortic aneurysm. Lymph nodes: Unremarkable. No enlarged lymph nodes. Urinary bladder: Unremarkable as visualized. Reproductive: Unremarkable as visualized. Bones/joints: Stable lytic area left ilium.. No acute fracture. Soft tissues: Unremarkable. IMPRESSION: 1. Stable loculated upper retroperitoneal collections consistent with pseudocysts. 2. There is some increasing free fluid seen anteriorly in the abdomen is well as along the splenic margin and in the pelvis the source of this is not clear. No pneumoperitoneum noted. No evidence of bowel obstruction. 3. Percutaneous gastro jejunostomy feeding tube in good position. 4. Stable lytic area left ilium.
--- NOTE | 2023-02-23 04:01 | CT_ITS ---
PROCEDURE INFORMATION: Exam: CTA Chest With Contrast Exam date and time: 02/23/2023 4:53 AM Age: 57 years old Clinical indication: Shortness of breath; Additional info: Cp, SOA, HX met cancer TECHNIQUE: Imaging protocol: Computed tomographic angiography of the chest with contrast. Exam focused on the arteries. 3D rendering (Not supervised by radiologist): MIP and/or 3D reconstructed images were created by the technologist. Radiation optimization: All CT scans at this facility use at least one of these dose optimization techniques: automated exposure control; mA and/or kV adjustment per patient size (includes targeted exams where dose is matched to clinical indication); or iterative reconstruction. Contrast material: ISOVUE; Contrast volume: 70 ml; Contrast route: INTRAVENOUS (IV); REPORTING DATA: Count of CT and Cardiac NM exams in prior 12 months: This patient has received 7 known CTs and 0 known cardiac nuclear medicine studies in the 12 months prior to the current study. COMPARISON: CT ANGIO CHEST PE PROTOCOL 09/24/2022 4:05 PM FINDINGS: Pulmonary arteries: Normal. No pulmonary emboli. Aorta: Unremarkable. No aortic aneurysm. No aortic dissection. Lungs: Unremarkable. No consolidation. No masses. Pleural spaces: Unremarkable. No pneumothorax. No pleural effusion. Heart: Unremarkable. No cardiomegaly. No pericardial effusion. Coronary arteries: Coronary atherosclerosis. Lymph nodes: Unremarkable. No enlarged lymph nodes. Intraperitoneal space: Some loculated fluid is seen in the upper abdomen see concurrently performed abdomen and pelvis CT. Bones/joints: Unremarkable. No acute fracture. Soft tissues: Unremarkable. IMPRESSION: 1. No evidence of pulmonary embolism or other acute intrathoracic process. 2. Coronary atherosclerosis.
[2023-02-23 04:24] LABS: Microscopic, Urine URINE MICROSCOPIC (MICROSCOPIC)
[2023-02-23 04:27] LABS: Appearance,Urine CLOUDY (Clear); Bilirubin,Urine Negative (Negative); Blood, Urine Negative (Negative); Chloride 98 mmol/L (98-107); Color,Urine YELLOW (Yellow); Glucose,Urine (UA) Negative (Negative); Ketones,Urine Negative (Negative); Leukocyte Esterase,Urine Negative (Negative); Nitrate,Urine Negative (Negative); Protein,Urine Negative (Negative); Urobilinogen,Urine 0.2 EU/dl (0.2)
[2023-02-23 04:28] LABS: Potassium 4.1 mmoL/L (3.5-5.1); Sodium 138 mmol/L (136-145)
[2023-02-23 04:30] LABS: Alanine Aminotransferase 19 U/L (12-78); Alkaline Phosphatase 92 U/L (38-126); Anion Gap 14.1 mEq/L (5-15); Aspartate Amino Transferase 28 U/L (17-59); Bilirubin,Total 0.4 mg/dl (0.2-1.3); Blood Urea Nitrogen 12 mg/dl (9-20); Carbon Dioxide 30 mmol/L (22.0-30.0); Creatinine Clearance Estimated 87 mL/min (50-200); Estimated Glomerular Filt Rate 116 ml/min (>60); GFR (African American) 141 ML/MIN (>60)
[2023-02-23 04:31] LABS: Albumin Level 4.2 g/dl (3.5-5.0); Albumin/Globulin Ratio 1.1 (1.1-1.8); Basophils % 0.4 % (0.1-2.0); Calcium 8.8 mg/dl (8.4-10.2); Eosinophils # 0.2 K/mm3 (0.0-0.4); Eosinophils % 2.5 % (0.1-12.0); Globulin 3.8 g/dL (1.3-3.2); Glucose 124 mg/dl (74-100); Hematocrit 41.2 % (42.0-52.0); Hemoglobin 13.1 g/dL (14.1-18.0); Lymphocytes # 1.3 K/mm3 (0.7-4.5); Lymphocytes % 15.4 % (10-50); Magnesium 1.8 mg/dl (1.6-2.3); Mean Corpuscular HGB Conc 31.8 g/dL (31.8-35.4); Mean Corpuscular Hemoglobin 29.7 pg (27.0-31.2); Mean Corpuscular Volume 93.3 fl (80-94); Mean Platelet Volume 8.7 fl (7.4-10.4); Monocytes # 0.4 K/mm3 (0.1-1.0); Monocytes % 4.9 % (1.7-9.3); Neutrophils # 6.5 K/mm3 (1.8-7.8); Neutrophils % 76.9 % (37.0-80.0); Platelet Count 232 K/mm3 (142-424); Red Blood Count 4.41 M/mm3 (4.60-6.20); White Blood Count 8.4 K/mm3 (4.8-10.8)
[2023-02-23 04:42] LABS: Amorphous Sediment,Urine 2+ /lpf; Bacteria,Urine 1+ /lpf; Squamous Epithelial Cell,Urine Occasional #/hpf (0-5); WBC,Urine Occasional #/hpf (0-3)
[2023-02-23 04:45] LABS: Troponin I < 0.01 ng/ml (0.00-0.034)
[2023-02-23 04:46] LABS: Lipase 2635 U/L (23-300)
--- NOTE | 2023-02-23 07:23 | PC.NURSE ---
Dr. Milan at BS
--- NOTE | 2023-02-23 07:26 | PC.NURSE ---
gave report to Jeannette Franklin RN. Dr. Milan at bedside and will official admit or discharge . I let her know I will inform her after Dr. Milan and the pt discuss POC
--- NOTE | 2023-02-23 07:48 | PC.NURSE ---
Dr. Milan agrees to admit pt. I let Nanci Franklin RN know this information. Dr. Milan denies needing continued troponin, lab informed.
--- NOTE | 2023-02-23 07:50 | PC.NURSE ---
Per Dr. Milan -pt does not need repeat troponin. Notified Daja in lab
--- NOTE | 2023-02-23 07:50 | PC.NURSE ---
Pt voiced concern of making sure he received his medication for his seizures. Notified Rafi Cevallos RN.
--- NOTE | 2023-02-23 07:51 | EXP.HP ---
History of Present Illness *Admission Date: 02/23/23 *Reason for visit:: abdominal pain *History of present illness: Mr. Casarez is a 57-year-old male with history of metastatic lung cancer, GJ tube, gastric emptying difficulty 2/2 obstruction, chronic alcohol induced pancreatitis, who presented to the ER with worsening abdominal pain. Patient admits to eating by mouth that he is not supposed to per instruction from his commercial estimator. His pain is predominantly in the left upper abdomen. Lipase on presentation elevated above 2000, baseline is in the 500-700 range. Denies any fever, nausea or vomiting. Has not had a bowel movement in 2 days. Pain radiating to bilateral shoulders from his abdomen. Stable on room air. Imaging of abdomen showing stable pseudocysts on CT. Patient quite weak and unable to discharge safely home. Lives with his 82-year-old mother who also has metastatic lung cancer. Unable to care for self at this time. ER salted medicine for admission for pain control, fluid management, and acute on chronic pancreatitis. On evaluation, patient states he is supposed to have a procedure tomorrow at that he does not believe they will do because of the flare in his pancreatitis. Is requesting the room be colder because he is hot. States his pain is a little bit better after pain medication in the ER. Is alert and oriented x3 PFSH [facility] Disclaimer: The information contained in this section may have been updated after the patient was seen, as this information can be updated by other users. Medical History Bone marrow disorder Cirrhosis COPD (chronic obstructive pulmonary disease) Gallstone pancreatitis GERD (gastroesophageal reflux disease) Hypokalemia Pancreatitis Surgical History Hx of cholecystectomy Family History Emphysema lung Cancer of lung Social History Smoking Status: Current every day smoker tobacco type: cigarettes packs per day: 3 alcohol intake: current substance use type: denies use current occupational status: unemployed Travel in the last 8 weeks: None household members: family housing: house current occupational exposures/hazards: No caffeine: No Review of Systems Review of Systems Review of systems (narrative): 14 point review of systems performed, pertinent positives and negatives as per HPI Meds Home Medications and Allergies Home Medications Medication Instructions Recorded Confirmed Type pantoprazole 40 mg tablet,delayed 40 mg PO BID Acid reflux #180 tabs 11/15/22 02/23/23 Rx release sucralfate 1 gram tablet (Carafate) 1 g PO BID Ulcers #180 tabs 11/15/22 02/23/23 Rx levetiracetam 500 mg tablet 500 mg PO BID Seizures 02/23/23 02/23/23 History wyqixh-igzzreei-bssphtw 2 cap PO TIDWMEAL Pancreatic 02/23/23 02/23/23 History 36,000-114,000-180,000 unit insufficiency capsule,delay rel lorazepam 2 mg tablet 2 mg PO BIDP PRN alcohol withdrawal 02/23/23 02/23/23 History New Prescriptions to Start Prescriptions: Allergies Allergy/AdvReac Type Severity Reaction Status Date / Time cephalexin [From Keflex] Allergy Mild Hives Verified 01/23/23 14:02 sulfamethoxazole Allergy Unknown Verified 01/23/23 14:02 [From BACTRIM] trimethoprim [From BACTRIM] Allergy Unknown Verified 01/23/23 14:02 Exam Data for Last 24 hours Vital signs and Labs for Last 24 Hours: Temp Pulse Resp BP Pulse Ox O2 Del Method 98.2 F 81 22 99/51 L 97 Room Air 02/23/23 03:51 02/23/23 07:00 02/23/23 07:00 02/23/23 07:00 02/23/23 07:00 02/23/23 07:00 Laboratory Results - last 24 hr 02/23/23 04:06: WBC 8.4, RBC 4.41 L, Hgb 13.1 L, Hct 41.2 L, MCV 93.3, MCH 29.7, MCHC 31.8, RDW 14.0, Plt Count 232, MPV 8.7, Neut % (Auto) 76.9, Lymph % (Auto) 15.4, Da[place]hin % (A
--- NOTE | 2023-02-23 08:11 | PC.NURSE ---
Pt transferred to 2nd floor.
--- NOTE | 2023-02-23 08:13 | PC.NURSE ---
arrived to floor by stretcher from ED
--- NOTE | 2023-02-23 11:38 | DIET.NUTRFU ---
Addendum entered by Dixie Coy RD, LD 02/23/23 12:43: Reviewed tubefeeding formulas on hand, closet equivalent is Osmolite 1.2 with monitor of tolerating. Started at 30ml/hr to provide 720ml/864kcal/40gm/590ml formula water. Goal rate of 60ml/hr ATC will provide 1440ml/1728kcal and 80gm protein with 1180ml formula water. Continues to receive dextrose IV, will flush with minimal water of 50ml RIF=016tu/day. Once IVF discontinued will increase flush to better meet needs at 75ml Q6H= 450ml. Check residual [id number] and monitor for TF tolerance: any GI distress-nausea, vomiting, diarrhea, abdominal distention, discomfort, bloating or fullness. Nursing did indicate he was already experiencing some pain prior to tubefeeding starting. Original Note: RD reviewed chart, patient was admitted with Pancreatitis. He has a J-tube and is receiving 100% nutrition via J-tube. He is not recommended to eat oral diet for nutrition. He has been eating at house recently, no obstruction, but has not had BM in couple days per provider. Per provider he was using Peptamen 1.5 at 60ml/hr ATC at lmjc=4312fx/2160kcal/98gm protein and 1108ml formula water. Nutritional needs for wt gains d/t low BMI and high stress d/t Dx are 1700-2100kcal and 74-82gm protein with 1600ml fluid/day. He is currently NPO with dextrose IV running. Facility does not have equivalent formula in house, it is a speciality formula and will require special order. He does have supplies at home but unable to bring to hospital at current time. Provider may consider clear liquids when ready. Reviewing chart wt has been stable at 53kg, he sees Dr. Edgar as PCP and saw him on 09/24/22 with weight of 53kg also. His BMI is low at 17. Will continue to gather information to evaluate for severe PCM.
--- NOTE | 2023-02-23 13:02 | PC.NURSE ---
Addendum entered by Jeannette Franklin RN 02/23/23 17:30: PLACEMENT VERIFIED PER AUSCULTATION. Original Note: PT HAS HAD BM. OSMOLITE 1.2 TUBE FEED STARTED AT 1300. ZERO RESIDUAL NOTED BEFORE TUBE FEED START. STARTED AT 30ML/HR. WILL RECHECK RESIDUAL AND INCREASE RATE AT 1700.
--- NOTE | 2023-02-23 16:21 | PC.NURSE ---
A&OX4. TOLERATING RA WELL. PT IS UP INDEPENDENTLY IN ROOM TO BATHROOM. HAS HAD DIARRHEA X2 THUS FAR THIS SHIFT. PT HAS HAD NO C/O SINCE ARRIVAL TO FLOOR. HAS SLEPT MAJORITY OF SHIFT. J TUBE PRESENT TO ABD. TUBE FEEDS CONTINUING. PT TOLERATING WELL. IV FLUIDS INFUSING. SEIZURE PADS IN PLACE. NO NEEDS OR C/O NOTED THUS FAR, VSS.
--- NOTE | 2023-02-23 17:15 | PC.NURSE ---
NO RESIDUAL NOTED. RATE INCREASED TO 50ML/HR. PT TOLERATING WELL.
--- NOTE | 2023-02-23 17:51 | PC.NURSE ---
MD BAUTISTA STATES HE IS OKAY WITH NO FLUSH BEING ADMINISTERED THROUGH T/F AT THIS TIME D/T ORAL INTAKE.
[2023-02-23 17:53] LABS: Lipase 1582 U/L (23-300)
--- NOTE | 2023-02-23 20:16 | PC.NURSE ---
increased tube feed to 60ml/hr, 0 residual noted, no complaints at this time
[2023-02-24 04:00] VITALS: BP 102/54; PULSE 78; RESP 18; TEMP 36.4; O2SAT 97; BMI 19.5
--- NOTE | 2023-02-24 04:34 | PC.NURSE ---
Pt is alert and oriented x4, currently on RA, Pt is tolerating tube feedings well and is receiving 60/ml hr, pt has had no residual this shift. Pain has rested well for the most part of the shift, Pt denies needs and pain at this time.
[2023-02-24 06:58] LABS: Basophils % 0.1 % (0.1-2.0); Eosinophils # 0.2 K/mm3 (0.0-0.4); Eosinophils % 3.2 % (0.1-12.0); Hematocrit 34.2 % (42.0-52.0); Hemoglobin 11.1 g/dL (14.1-18.0); Lymphocytes # 1.1 K/mm3 (0.7-4.5); Lymphocytes % 22.1 % (10-50); Mean Corpuscular HGB Conc 32.4 g/dL (31.8-35.4); Mean Corpuscular Volume 92.5 fl (80-94); Mean Platelet Volume 8.9 fl (7.4-10.4); Monocytes # 0.4 K/mm3 (0.1-1.0); Monocytes % 8.6 % (1.7-9.3); Neutrophils # 3.4 K/mm3 (1.8-7.8); Platelet Count 191 K/mm3 (142-424); White Blood Count 5.1 K/mm3 (4.8-10.8)
[2023-02-24 07:05] LABS: Chloride 104 mmol/L (98-107); Potassium 4.5 mmoL/L (3.5-5.1); Sodium 132 mmol/L (136-145)
[2023-02-24 07:07] LABS: Alanine Aminotransferase 12 U/L (12-78); Aspartate Amino Transferase 19 U/L (17-59); Blood Urea Nitrogen 10 mg/dl (9-20); Creatinine Clearance Estimated 113 mL/min (50-200); Estimated Glomerular Filt Rate 139 ml/min (>60); GFR (African American) 168 ML/MIN (>60)
[2023-02-24 07:08] LABS: Albumin Level 2.9 g/dl (3.5-5.0); Albumin/Globulin Ratio 1.1 (1.1-1.8); Alkaline Phosphatase 64 U/L (38-126); Anion Gap 7.5 mEq/L (5-15); Bilirubin,Total 0.2 mg/dl (0.2-1.3); Calcium 7.7 mg/dl (8.4-10.2); Carbon Dioxide 25 mmol/L (22.0-30.0); Globulin 2.6 g/dL (1.3-3.2); Glucose 129 mg/dl (74-100); Magnesium 1.8 mg/dl (1.6-2.3); Total Protein,Serum 5.5 g/dl (6.3-8.2)
[2023-02-24 07:45] LABS: Lipase 2113 U/L (23-300)
[2023-02-24 08:00] VITALS: BP 95/50; PULSE 70; RESP 18; TEMP 36.7; O2SAT 98
--- NOTE | 2023-02-24 08:53 | EXP.DC.SUM ---
General Admission date:: 02/23/23 Discharge date: 02/24/23 HPI HPI HPI: Mr. Casarez is a 57-year-old male with history of metastatic lung cancer, GJ tube, gastric emptying difficulty 2/2 obstruction, chronic alcohol induced pancreatitis, who presented to the ER with worsening abdominal pain. Patient admits to eating by mouth that he is not supposed to per instruction from his gambreler helper. His pain is predominantly in the left upper abdomen. Lipase on presentation elevated above 2000, baseline is in the 500-700 range. Denies any fever, nausea or vomiting. Has not had a bowel movement in 2 days. Pain radiating to bilateral shoulders from his abdomen. Stable on room air. Imaging of abdomen showing stable pseudocysts on CT. Patient quite weak and unable to discharge safely home. Lives with his 82-year-old mother who also has metastatic lung cancer. Unable to care for self at this time. ER salted medicine for admission for pain control, fluid management, and acute on chronic pancreatitis. On evaluation, patient states he is supposed to have a procedure tomorrow at that he does not believe they will do because of the flare in his pancreatitis. Is requesting the room be colder because he is hot. States his pain is a little bit better after pain medication in the ER. Is alert and oriented x3 Hospital Course Hospital Course Hospital Course: 57-year-old gentleman with significant history of metastatic lung cancer, chronic pancreatitis, G-tube dependent. Recent hospitalizations and ER visits for flares of his pancreatitis. Presents with acute abdominal pain and increase in lipase from baseline. Discussed case with the ER, patient too weak to go home. Needs IV pain control. Requested admission for further management. Admitted overnight. Tolerated initiation of tube feeds. Lipase showed some improvement. Clinically patient improving and stable for discharge home. Recommend close follow-up with his gambreler helper at . Spoke to Dr. Juarez's team and patient has follow-up in 2 weeks for ERCP. Strongly encourage patient to keep that appointment. States that he has transportation with either his sister or himself driving. Problems addressed as follows during admission: Acute on chronic pancreatitis Pancreatic pseudocyst Chronic alcoholic pancreatitis -Patient has not had alcohol since June per his report. On admission patient having left upper quadrant pain and elevation in his lipase to 2600. Baseline is 702,000. Chronically has pain but pain was somewhat worse than normal. CT of abdomen obtained showing no inflammation of the pancreas, stable pseudocysts. Patient was admitted and initiated on IV pain control. Tolerated well with good improvement. Tube feeds were initiated using Osmolite 1.2. Patient tolerated well without increase in pain. Tolerating clear liquids by mouth. Given his improvement in lipase to 1500, tolerance of nutrition, and stable CBC and CMP, patient meeting criteria for discharge home. Recommend resuming Peptamen at home. Encouraged him to have minimal p.o. intake. Resume home regimen for medications. Extensive discussion with patient's GI at . He has follow-up on 03/10 for ERCP. Will have follow-up on 03/20 in the office. Encouraged to keep appointment. Chronic malnutrition/severe protein calorie malnutrition G-tube been -Patient tolerates p.o. fluids, will continue with clear liquid diet orally; tube feeds initiated and tolerated as above Seizure disorder -Continue home Keppra 500 mg twice daily and Ativan 2 mg twice daily Metastatic non-small cell lung cancer, complicates his overall health. We will continue to discuss goals of care given worsening pancreatitis acute on chronic in the setting of metastatic cancer. Extensive discussion with patient about his condition, need for intervention with GI, and importance of keeping appointments. Patient states understanding. Stable for discharg
[2023-02-24 09:07] VITALS: BMI 19.8
--- NOTE | 2023-02-24 09:54 | HMH.OTEV ---
OT Inpatient Evaluation Rehab OT IP Evaluation Start: 02/24/23 08:45 Freq: ONCE Status: Active Protocol: Document 02/24/23 09:50 [facility] (Rec: 02/24/23 09:54 [facility] [id number]) Rehab OT IP Assessment Subjective History Pt oriented x 3 on arrival. Pt agreeable to engage in therapy evaluation. Pt admitted on 02/23/23 due to acute pancreatitis. Mr. Casarez is a 57-year-old male with history of metastatic lung cancer, GJ tube, gastric emptying difficulty 2/2 obstruction, chronic alcohol induced pancreatitis, who presented to the ER with worsening abdominal pain. Patient admits to eating by mouth that he is not supposed to per instruction from his open hearth furnace laborer. Prior to being in the hospital , pt lived at home with his mother. Pt claims he is normally independent with all ADLs such as feeding, dressing , and bathing. Pt's mother assists/completes all IADLs. Pt does not require any type of AE during functional transfers. Subjective I can do this on my own. Objective Patient Orientation Person,Place,Birthday Upper Extremity Gross ROM WFL Bed Mobility bed mobility-scooting,bed mobility - supine/sit Assist Level Supervision/Stand by Transfer Training Sit/Stand Transfer Assist Level Supervision/Stand by Chair Transfer Ability Supervision/Stand by Chair Transfer Technique Sit to/from Ambulatory Chair Transfer Assistive Devices None Lower Body Dressing Ability Standby Assistance Rehab OT IP prob,goals,plan Problems Date of Evaluation: 02/24/23 Rehab Potential Rehab Potential Innapropriate for Skilled Therapy Discharge Plan OT Discharge Plan Pt appears to be at his baseline with functional transfers and ADL independence . Pt can return home with mother once pt is discharged
--- NOTE | 2023-02-24 10:18 | HMH.PTEV ---
Physical Therapy Evaluation Rehab PT IP Evaluation Start: 02/24/23 08:45 Freq: ONCE Status: Active Protocol: Document 02/24/23 10:15 [facility] (Rec: 02/24/23 10:18 [facility] [id number]) Subjective/History History History 57 yowm adm to [facility] with acute pancreatitis. PMH of metastatic lung cancer, GJ tube. Pt reports he lives with his mother, no steps to enter the home, he is generally independent with all ambulation and ADLs without an AD. Subjective Subjective Pt with no c/o this am. New diagnosis of cancer in past 12 Yes months? Rehab PT IP Eval Objective Appearance Patient Behavior Appropriate Patient Orientation Person,Place,Time Difficulty following instructions none Speech Pattern Clear Ambulation Patient Able to Ambulate Yes Ambulation Observation IP General Gait Pattern Observation No Deviations/Normal Ambulation Distance (feet) 20 Ambulation Assistive Device None Ambulation Ability Independent Balance Ability to Arise Able, uses arms to help Sitting Balance Steady, safe Standing Balance Narrow stance w/o support Dynamic Sitting Balance Ability Good Dynamic Standing Balance Ability Good Transfers Bed Transfer Ability Independent Chair Transfer Ability Independent Sit to Stand Bed Transfer Ability Independent Sit to Stand Chair Transfer Ability Independent Rehab PT IP prob,goals,plan Problems Date of Evaluation: 02/24/23 Discharge Plan PT Discharge Plan Pt is currently at baseline for all mobility and has no inpatient therapy needs. He is appropriate to return home once medically stable for d/c. Eval Complexity Eval Charge Codes 46605 - High Complexity PHYSICIAN CERTIFICATION: I certify the specified therapy services for Richard Casarez are required, authorized, and reviewed every 30 days.
--- NOTE | 2023-02-25 14:05 | SW/DCPLANNER ---
Follow up phone call was made w/ this patient today. Patient stated that he is doing well at home at this time. Patient is aware of all follow up appointments. Patient does not have any further needs/questions at this time.
== END 2023-02-24 13:31 | disposition home or self-care (01) ==
LOC: ER 03:46 → 2ND 06:31
PROVIDERS: Admitting Provider Internal Medicine Adolescent Medicine; Emergency Provider Emergency Medicine; PCP Family Medicine; Visit Provider Internal Medicine Adolescent Medicine
DX: K85.20 Alcohol induced acute pancreatitis without necrosis or infection (principal); E43 Unspecified severe protein-calorie malnutrition; K86.3 Pseudocyst of pancreas; R10.84 Generalized abdominal pain; K31.1 Adult hypertrophic pyloric stenosis; C34.90 Malignant neoplasm of unspecified part of unspecified bronchus or lung; Z93.1 Gastrostomy status; Z68.1 Body mass index [BMI] 19.9 or less, adult
CPT/HCPCS: 36415; 71275; 74177; 80053; 81001; 83690; 83735; 84484; 85025; 93005; 97163; 97165; 99285; G0378; Q9967

== ENCOUNTER 2023-02-28 12:04 | Emergency (ER) | payer MEDICAID, SELFPAY ==
[2023-02-28 12:07] VITALS: BP 193/113; PULSE 93; RESP 19; TEMP 36.5; O2SAT 100; BMI 18.3
--- NOTE | 2023-02-28 12:08 | CT_ITS ---
FINAL REPORT TECHNIQUE: Postcontrast axial images through the abdomen and pelvis were performed. This study was performed with techniques to keep radiation doses as low as reasonably achievable, (ALARA). Individualized dose reduction techniques using automated exposure control or adjustment of mA and/or kV according to the patient's size were employed. CLINICAL HISTORY: worsening abd pain, acute/chronic panc. met ca COMPARISON: 02/23/2023 FINDINGS: Abdomen: There is mild atelectasis in left lung base. Gastrojejunostomy is present. There are postoperative changes medial to the stomach. The liver is normal in size and attenuation. Patient is status post cholecystectomy. The spleen is unremarkable. The adrenals are normal. There are diffuse pancreatic calcifications consistent with chronic pancreatitis. Fluid collection is seen superior to the right kidney measuring 10 x 4.6 cm which is stable. There is also fluid collection in the evelio hepatis measuring 7.8 cm which is stable. These likely represent pseudocysts. Left renal cysts are identified. The aorta is normal in caliber. There is a small to moderate amount of ascites in the abdomen and pelvis. Pelvis: The appendix is not identified. The urinary bladder is unremarkable. There is no free air, abscess, or adenopathy. Note is made of bilateral L5 pars defects. IMPRESSION: Stable fluid collections in the abdomen, likely represent pseudocysts. Stable ascites. Reviewed, Interpreted and Dictated by Parviz Correa III, MD Transcribed by Kathleen Forbes Authenticated and [facility]
--- NOTE | 2023-02-28 12:09 | HMH.EDGENADL ---
Discharge Plan Disposition Patient Disposition: Admitted Chief Complaint: Abdominal Pain Prescriptions Prescriptions: No Action pantoprazole 40 mg tablet,delayed release (DR/EC) 40 mg PO BID Qty: 180 10RF sucralfate [Carafate] 1 gram tablet 1 g PO BID Qty: 180 4RF levetiracetam 500 mg tablet 500 mg PO BID Rx Instructions: TAKE ONE TABLET BY MOUTH TWICE A DAY FOR SEIZURES lorazepam 2 mg tablet 2 mg PO BIDP PRN (Reason: alcohol withdrawal) [id number]-wctoxing-fjbqlca 36,000-114,000- 180,000 unit capsule,delayed release(DR/EC) 2 cap PO TIDWMEAL Referrals Follow up/Referrals: Provider,Referral, MD [Referring] - See instructions Clinical Impressions Clinical Impression: Acute on chronic pancreatitis, Cachexia Instructions Patient Instructions: DI for Acute Abdominal Pain Discharge ED Provider: Ja Pardo General Adult HPI General Chief complaint: Abdominal Pain Stated complaint: adm pain Time Seen by Provider: 02/28/23 12:05 History of Present Illness HPI narrative: Patient is a 57-year-old male here with a history of acute on chronic pancreatitis recently admitted in our hospital for pain control. His pancreatitis is secondary to chronic alcoholism but he has been sober for an extended period of time. He has a G-tube and history of protein malnutrition. He also has metastatic lung cancer with mets to his skeleton. States his abdominal pain is worsened over the last several days and is here with worsening discomfort. He is followed by Dr. Edgar outpatient as well as Dr. Albright at [facility] and he states there is nothing they can do for me . He is not on hospice that we are aware of. And he states he needs to be admitted for IV pain control. Related Data Home Medications Medication Instructions Recorded Confirmed levetiracetam 500 mg tablet 500 mg PO BID Seizures 02/23/23 02/28/23 zlaona-phstfied-eodpjvx 2 cap PO TIDWMEAL Pancreatic 02/23/23 02/28/23 36,000-114,000-180,000 unit insufficiency capsule,delay rel lorazepam 2 mg tablet 2 mg PO BIDP PRN alcohol withdrawal 02/23/23 02/28/23 Previous Rx's Medication Instructions Recorded pantoprazole 40 mg tablet,delayed 40 mg PO BID Acid reflux #180 tabs 11/15/22 release sucralfate 1 gram tablet (Carafate) 1 g PO BID Ulcers #180 tabs 11/15/22 Allergies Allergy/AdvReac Type Severity Reaction Status Date / Time cephalexin [From Keflex] Allergy Mild Hives Verified 02/28/23 12:35 sulfamethoxazole Allergy Unknown Verified 02/28/23 12:35 [From BACTRIM] trimethoprim [From BACTRIM] Allergy Unknown Verified 02/28/23 12:35 PFSH PFS Disclaimer: The information contained in this section may have been updated after the patient was seen, as this information can be updated by other users. Medical History Bone marrow disorder Cirrhosis COPD (chronic obstructive pulmonary disease) Gallstone pancreatitis GERD (gastroesophageal reflux disease) Hypokalemia Pancreatitis Surgical History Hx of cholecystectomy Family History Emphysema lung Cancer of lung Social History Smoking Status: Current every day smoker tobacco type: cigarettes packs per day: 3 alcohol intake: current substance use type: denies use current occupational status: unemployed Travel in the last 8 weeks: None household members: family housing: house current occupational exposures/hazards: No caffeine: No ROS Obtained: Yes All systems reviewed & no additional complaints except as documented Physical Exam General General appearance: cachectic Respiratory Respiratory exam: Present normal lung sounds bilaterally Cardiovascular Cardiovascular exam: Present regular rate; Absent tachycardia Abdominal Exam
--- OUTSIDE RECORDS SUMMARY | 2023-02-28 12:13 | XMS_ITS | Continuity of Care Document ---
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 Role Phone LYN SHEIKH (REF) Primary Care Physician [phone] Encounter [facility] Date(s): 11/09/22 - 11/13/22 [facility] [address] [place] [address]- [place] Encounter Diagnosis Chronic obstructive pulmonary disease (COPD)(Discharge Diagnosis) - 11/10/22 Seizure disorder(Discharge Diagnosis) - 11/10/22 Tobacco use(Discharge Diagnosis) - 11/10/22 Acute on chronic pancreatitis(Discharge Diagnosis) - 11/10/22 Gastric outlet obstruction(Discharge Diagnosis) - 11/10/22 Metastatic primary lung cancer(Discharge Diagnosis) - 11/10/22 Alcohol abuse(Discharge Diagnosis) - 11/10/22 Pancreatic pseudocyst(Discharge Diagnosis) - 11/10/22 Discharge Disposition: IP Self Care / Home Attending Physician: TRENTON BRIGHT MD-INT Admitting Physician: WILMAN FRANCO MD-INT Allergies, Adverse Reactions, Alerts Substance Reaction Severity Status sulfamethoxazole Active trimethoprim Active Keflex Active Assessment and Plan Extracted from: Title:Gastroenterology Daily Progress Note,_Acute Care_ULP Author:LYN SHARIF DO-GAE Date:11/13/22 Patient: LYN JAIME Age: 57 years Sex: Male : 1965 Associated Diagnoses: None Author: LYN SHARIF DO-GAE [facility] Gastroenterology Inpatient Progress Note Basic Information Interval History: () location, quality, severity, duration, timing, context, modifiers, associated signs/symptoms Source of History: _ ( ) Patient alone; ( ) Patient + Other (give relation): ; ( ) Other (give relation): _ Patient seen on exam resting comfortably. Denies nausea/vomiting/fevers/chills. Unable to obtain Complete Interval H.P.I., R.O.S., Past Medical, Social, nor Family History due to inability of the patient to give the information (due to medical condition: _ ) and because other reliable source is not available at this time: _ (when appropriate, write YES and describe condition, to request Credit as Comprehensive History) Review of Systems ROS: () _ Constitutional: No fever; No anorexia Respiratory:
[2023-02-28 12:29] LABS: Alanine Aminotransferase 22 U/L (12-78); Albumin Level 4.3 g/dl (3.5-5.0); Albumin/Globulin Ratio 1.2 (1.1-1.8); Alkaline Phosphatase 107 U/L (38-126); Anion Gap 11.5 mEq/L (5-15); Aspartate Amino Transferase 32 U/L (17-59); Basophils % 0.2 % (0.1-2.0); Bilirubin,Total 0.5 mg/dl (0.2-1.3); Blood Urea Nitrogen 14 mg/dl (9-20); Calcium 9.4 mg/dl (8.4-10.2); Carbon Dioxide 30 mmol/L (22.0-30.0); Chloride 97 mmol/L (98-107); Creatinine Clearance Estimated 164 mL/min (50-200); Eosinophils # 0.2 K/mm3 (0.0-0.4); Eosinophils % 1.9 % (0.1-12.0); Estimated Glomerular Filt Rate 116 ml/min (>60); GFR (African American) 141 ML/MIN (>60); Globulin 3.7 g/dL (1.3-3.2); Glucose 119 mg/dl (74-100); Hematocrit 39.8 % (42.0-52.0); Hemoglobin 13.4 g/dL (14.1-18.0); Lymphocytes # 1.3 K/mm3 (0.7-4.5); Lymphocytes % 13.3 % (10-50); Mean Corpuscular HGB Conc 33.8 g/dL (31.8-35.4); Mean Corpuscular Hemoglobin 31.5 pg (27.0-31.2); Mean Corpuscular Volume 93.2 fl (80-94); Mean Platelet Volume 8.9 fl (7.4-10.4); Monocytes # 0.6 K/mm3 (0.1-1.0); Monocytes % 5.9 % (1.7-9.3); Neutrophils # 7.6 K/mm3 (1.8-7.8); Neutrophils % 78.6 % (37.0-80.0); Platelet Count 229 K/mm3 (142-424); Potassium 4.5 mmoL/L (3.5-5.1); Red Blood Count 4.27 M/mm3 (4.60-6.20); Sodium 134 mmol/L (136-145); White Blood Count 9.7 K/mm3 (4.8-10.8)
[2023-02-28 12:30] VITALS: BP 111/73; PULSE 98; O2SAT 98
[2023-02-28 12:36] LABS: Lipase 1961 U/L (23-300)
--- NOTE | 2023-02-28 12:36 | PC.NURSE ---
critical lab results reported to dr schwarz.
--- NOTE | 2023-02-28 12:43 | PC.NURSE ---
Pt gone to RAD via wheelchair
--- NOTE | 2023-02-28 12:53 | PC.NURSE ---
Pt returned from RAD
--- NOTE | 2023-02-28 12:54 | PC.NURSE ---
Dr. Pardo at BS for pt eval
[2023-02-28 14:04] VITALS: BP 97/64; PULSE 87; O2SAT 100
[2023-02-28 14:05] VITALS: BP 97/64; PULSE 88; O2SAT 99
--- NOTE | 2023-02-28 14:30 | PC.NURSE ---
call made to care management for bed assignment
--- NOTE | 2023-02-28 14:42 | PC.NURSE ---
Dr. Vogt at to speak with pt
--- NOTE | 2023-02-28 15:16 | CARE MANAGER ---
CM went down to ED with Dr. Vogt to discuss possible Hospice consult with patient. Patient has agreed to a hospice consult and will discharge home. [facility] will be faxed clinical and order. I have spoken with intake and plan is for patient to be seen today if at all possible. Patient Choice signed and scanned into chart.
--- NOTE | 2023-02-28 15:37 | HMH.PHAINT1 ---
Pharmacy Intervention Comments: MEDICATION RECONCILIATION COMPLETED ON PATIENT USING EXTERNAL FILL HISTORY FROM PHARMACY. -YESIKA SMITH, NIKOLED
--- NOTE | 2023-02-28 15:41 | EXP.DC.SUM ---
General Admission date:: 02/28/2023 Discharge date: 02/28/23 HPI HPI HPI: Patient is a 57-year-old male here with a history of acute on chronic pancreatitis recently admitted in our hospital for pain control. His pancreatitis is secondary to chronic alcoholism but he has been sober for an extended period of time. He has a G-tube and history of protein malnutrition. He also has metastatic lung cancer with mets to his skeleton. States his abdominal pain is worsened over the last several days and is here with worsening discomfort. He is followed by Dr. Edgar outpatient as well as Dr. Albright at [facility] and he states there is nothing they can do for me . He is not on hospice that we are aware of. And he states he needs to be admitted for IV pain control. Hospitalist service was consulted for direction of care. Care management was consulted for hospice care. Hospital Course Hospital Course Hospital Course: The patient was evaluated in the ED and he reported concerns with acute on chronic abdominal pain. His ED labs have been reviewed and discussed including a CBC with a normal white blood cell count, stable hemoglobin and normal platelets. His chemistry panel is normal with a normal creatinine of 0.7. His LFTs are normal. His lipase has improved from his discharge on February 24. A repeat CT of the abdomen and pelvis with contrast identifies stable fluid collections in the abdomen representing pancreatic pseudocyst and stable ascites with no acute findings. He reports that he is not currently prescribed opioid therapy. He voiced interest in having discussions with hospice. Case management assisted with hospice communication. He will be discharged home with liquid morphine through the weekend and subsequent hospice care. I spent 35 minutes in [id number] time with the patient, case management and nursing staff concerning the discharge process. We discussed his ED evaluation. We discussed his chronic medical problems and interested in enrolling in hospice care. We reviewed inpatient studies and imaging. The patient voiced understanding on the importance of follow-up with his primary care provider and specialist(s). The patient plans to be compliant with the medication regimen prescribed and follow-up appointments. He understands that he can return to the emergency department with any sudden changes or concerns. Exam Data for Last 24 hours Vital signs and Labs for Last 24 Hours: Temp Pulse Resp BP Pulse Ox O2 Del Method 97.7 F 88 19 97/64 L 99 Room Air 02/28/23 12:07 02/28/23 14:05 02/28/23 12:07 02/28/23 14:05 02/28/23 14:05 02/28/23 14:05 Laboratory Results - last 24 hr 02/28/23 12:06: WBC 9.7, RBC 4.27 L, Hgb 13.4 L, Hct 39.8 L, MCV 93.2, MCH 31.5 H, MCHC 33.8, RDW 14.0, Plt Count 229, MPV 8.9, Neut % (Auto) 78.6, Lymph % (Auto) 13.3, [place] % (Auto) 5.9, Eos % (Auto) 1.9, Baso % (Auto) 0.2, Neut # (Auto) 7.6, Lymph # (Auto) 1.3, [place] # (Auto) 0.6, Eos # (Auto) 0.2, Baso # (Auto) 0.0, Sodium 134 L, Potassium 4.5, Chloride 97 L, Carbon Dioxide 30, Anion Gap 11.5, BUN 14, Creatinine 0.70, Estimated Creat Clear 164, Estimated GFR 116, Est GFR ( Amer) 141, Glucose 119 H, Calcium 9.4, Total Bilirubin 0.5, AST 32, ALT 22, Alkaline Phosphatase 107, Total Protein 8.0 D, Albumin 4.3, Globulin 3.7 H, Albumin/Globulin Ratio 1.2, Lipase 1961 H I & O for Last 24 hours: Intake & Output 02/25/23 02/26/23 02/27/23 02/28/23 23:59 23:59 23:59 23:59 Weight 53.07 kg Constitutional Constitutional: no acute distress, thin, chronically ill appearing, disheveled and cooperative *Routine HEENT Exam Head: Present normocephalic Eye: Present EOMI and normal accommodation *Routine Neck Exam Neck: Present supple, full ROM and trachea midline; Absent lymphadenopathy *Routine Respiratory Exam Respiratory: Present rhonchi, diminished air movement, normal respiratory effort and symmetric chest movement; Absent respirat
[2023-02-28 15:57] VITALS: BP 97/64; PULSE 88; RESP 16; TEMP 36.7
== END 2023-02-28 15:57 | disposition hospice, home (50) ==
PROVIDERS: Emergency Provider Student in an Organized Health Care Education/Training Program; PCP Family Medicine
DX: K85.90 Acute pancreatitis without necrosis or infection, unspecified (principal); R10.0 Acute abdomen; R64 Cachexia; F17.210 Nicotine dependence, cigarettes, uncomplicated; J44.9 Chronic obstructive pulmonary disease, unspecified; K70.30 Alcoholic cirrhosis of liver without ascites; K21.9 Gastro-esophageal reflux disease without esophagitis; F10.11 Alcohol abuse, in remission
CPT/HCPCS: 74177; 80053; 83690; 85025; 96361; 96374; 96375; 99285; J2405; Q9967

== ENCOUNTER 2023-04-08 20:04 | Emergency (ER) | payer MEDICAID, SELFPAY ==
[2023-04-08 20:05] VITALS: BP 108/70; PULSE 65; RESP 20; TEMP 37; O2SAT 99; BMI 18.2
[2023-04-08 20:38] LABS: MANUAL DIFFERENTIAL MANUAL DIFFERENTIAL (MANUAL DIFF)
[2023-04-08 20:41] LABS: Basophils % 0.3 % (0.1-2.0); Eosinophils # 0.1 K/mm3 (0.0-0.4); Eosinophils % 2.1 % (0.1-12.0); Hematocrit 38.8 % (42.0-52.0); Lymphocytes # 0.4 K/mm3 (0.7-4.5); Lymphocytes % 10.9 % (10-50); Mean Corpuscular HGB Conc 33.5 g/dL (31.8-35.4); Mean Corpuscular Hemoglobin 30.1 pg (27.0-31.2); Mean Corpuscular Volume 89.7 fl (80-94); Mean Platelet Volume 9.4 fl (7.4-10.4); Monocytes # 0.3 K/mm3 (0.1-1.0); Monocytes % 6.9 % (1.7-9.3); Neutrophils # 3.3 K/mm3 (1.8-7.8); Neutrophils % 79.9 % (37.0-80.0); Platelet Count 120 K/mm3 (142-424); Red Blood Count 4.32 M/mm3 (4.60-6.20); Red Cell Distribution Width 14.7 % (11.5-17.5); White Blood Count 4.1 K/mm3 (4.8-10.8)
[2023-04-08 20:47] LABS: Chloride 99 mmol/L (98-107); Sodium 134 mmol/L (136-145)
[2023-04-08 20:49] LABS: Alanine Aminotransferase 22 U/L (12-78); Aspartate Amino Transferase 34 U/L (17-59); Blood Urea Nitrogen 13 mg/dl (9-20); Creatinine Clearance Estimated 77 mL/min (50-200); Estimated Glomerular Filt Rate 99 ml/min (>60); GFR (African American) 120 ML/MIN (>60)
--- NOTE | 2023-04-08 20:49 | PC.NURSE ---
urinal at bedside, pt aware of specimen needed, blanket provided
[2023-04-08 20:50] LABS: Albumin Level 4.4 g/dl (3.5-5.0); Albumin/Globulin Ratio 1.2 (1.1-1.8); Alkaline Phosphatase 130 U/L (38-126); Bilirubin,Total 0.4 mg/dl (0.2-1.3); Calcium 9.3 mg/dl (8.4-10.2); Carbon Dioxide 29 mmol/L (22.0-30.0); Globulin 3.7 g/dL (1.3-3.2); Glucose 109 mg/dl (74-100); Total Protein,Serum 8.1 g/dl (6.3-8.2)
[2023-04-08 20:54] LABS: Lipase 712 U/L (23-300)
[2023-04-08 20:56] LABS: Amylase 207 U/L (30-110)
[2023-04-08 21:01] LABS: Lymphocytes % 14 % (10-50); Monocytes % 3 % (2-9); Neutrophils % 83 % (42-76); Platelet Estimate Slight Decrease; RBC Morphology Normal; Total Cells Counted 100
--- NOTE | 2023-04-08 21:27 | HMH.EDGENADL ---
Discharge Plan Disposition Patient Disposition: Home, Self-Care Prescriptions Prescriptions: New metoclopramide HCl [Reglan] 10 mg tablet 10 mg PO Q6H PRN (Reason: nausea and vomiting) Qty: 30 0RF No Action pantoprazole 40 mg tablet,delayed release (DR/EC) 40 mg PO BID Qty: 180 10RF sucralfate [Carafate] 1 gram tablet 1 g PO BID Qty: 180 4RF promethazine 25 mg tablet 25 mg PO TID PRN (Reason: nausea and vomiting) Qty: 90 10RF oxycodone 10 mg tablet 10 mg PO BID PRN (Reason: pain) Qty: 60 0RF levetiracetam 500 mg tablet 500 mg PO BID lorazepam 2 mg tablet 2 mg PO BIDP PRN (Reason: Anxiety) hbsjrx-nufbtndl-jkaqbxl 36,000-114,000- 180,000 unit capsule,delayed release(DR/EC) 2 cap PO TIDWMEAL Referrals Follow up/Referrals: Richard Edgar MD [Primary Care Provider] - See instructions Activity Restrictions/Add. Instructions Additional Instructions/Restrictions: Call your family doctor to establish care for this visit to the emergency department and schedule follow-up within 48 hours to ensure improvement. If you have any worsening of your condition or any other concerning signs or symptoms, return to the emergency department or your primary care doctor for further evaluation. Reglan every 6 hours as needed for nausea and vomiting and to promote bowel movement. Clinical Impressions Clinical Impression: Abdominal pain, Acute pancreatitis Instructions Patient Instructions: DI for Acute Abdominal Pain Discharge ED Provider: Robert Santana General Adult HPI General Chief complaint: Abdominal Pain Stated complaint: temp, nausea, cannot eat Time Seen by Provider: 04/08/23 20:14 Mode of Arrival: Ambulatory Source of Information: Spouse Limitations: No Limitations Description of Symptoms (Recalled from ER Triage Doc. by RN): Pt presents with multiple complaints including nausea, vomiting, constipation, weakness, inability to eat, abdominal pain, and fever. Asking if he can be admitted at this time, informed would evaluate him and go from there. Pt afebrile at this time. History of Present Illness HPI narrative: The 8-year-old male with history of chronic pancreatitis, chronic abdominal pain, malnutrition, pancreatic pseudocyst status post drainage recently presenting with abdominal pain and belching. Patient states that he has had abdominal pain chronically for as long as he can remove. Has started getting worse over the past 2 days. Patient states that he has been having constant hiccups, feeling as if he needs to belch but cannot. No fevers or chills, but patient has had nausea without vomiting as well as constipation. States that he feels dehydrated. Abdominal pain is mild, not as bad as it has been in the past, radiates to his left flank. Oxycodone helps. Denies bowel or bladder dysfunction, hemoptysis, blood in the stool, or any other concerns. Related Data Home Medications Medication Instructions Recorded Confirmed levetiracetam 500 mg tablet 500 mg PO BID Seizures 02/23/23 03/05/23 bhscec-qmlkymwa-odshmnv 2 cap PO TIDWMEAL Pancreatic 02/23/23 03/05/23 36,000-114,000-180,000 unit insufficiency capsule,delay rel lorazepam 2 mg tablet 2 mg PO BIDP PRN Anxiety 02/23/23 03/05/23 Previous Rx's Medication Instructions Recorded pantoprazole 40 mg tablet,delayed 40 mg PO BID Acid reflux #180 tabs 11/15/22 release sucralfate 1 gram tablet (Carafate) 1 g PO BID Ulcers #180 tabs 11/15/22 promethazine 25 mg tablet 25 mg PO TID PRN nausea and 03/05/23 vomiting #90 tabs oxycodone 10 mg tablet 10 mg PO BID PRN pain #60 tabs 04/07/23 metoclopramide HCl 10 mg tablet 10 mg PO Q6H PRN nausea and 04/08/23 (Reglan) vomiting #30 tabs Allergies Allergy/AdvReac Type Severity Reaction Status Date / Time cephalexin [From Keflex] Allergy Mild Hives Verified 03/05/23 08:59 sulfamethoxazole Allergy Unknown Verified 03/05/23 08:59 [From BACTRIM] trimethoprim [From BA
[2023-04-08 21:30] VITALS: BP 94/62; PULSE 111; O2SAT 96
[2023-04-08 22:00] VITALS: BP 92/64; PULSE 95; O2SAT 97
[2023-04-08 22:30] VITALS: BP 96/61; PULSE 89; O2SAT 96
[2023-04-08 23:58] VITALS: BP 109/67; PULSE 84; RESP 20; TEMP 36.8; O2SAT 98
== END 2023-04-08 23:59 | disposition home or self-care (01) ==
PROVIDERS: Emergency Provider Emergency Medicine; PCP Family Medicine
DX: R10.84 Generalized abdominal pain (principal); K85.90 Acute pancreatitis without necrosis or infection, unspecified; E86.0 Dehydration; R00.0 Tachycardia, unspecified; R11.0 Nausea; F17.210 Nicotine dependence, cigarettes, uncomplicated; J44.9 Chronic obstructive pulmonary disease, unspecified; K21.9 Gastro-esophageal reflux disease without esophagitis; F10.988 Alcohol use, unspecified with other alcohol-induced disorder; Z93.1 Gastrostomy status; K86.1 Other chronic pancreatitis; K70.30 Alcoholic cirrhosis of liver without ascites; Z85.118 Personal history of other malignant neoplasm of bronchus and lung
CPT/HCPCS: 80053; 82150; 83690; 85007; 85014; 85018; 85048; 85049; 96361; 96374; 96375; 99284

== ENCOUNTER 2023-07-02 21:27 | Outpatient (CLI) | payer MEDICAID, SELFPAY ==
[2023-07-02 19:25] LABS: Basophils % 0.3 % (0.1-2.0); Eosinophils # 0.3 K/mm3 (0.0-0.4); Eosinophils % 6.4 % (0.1-12.0); Hematocrit 37.1 % (42.0-52.0); Hemoglobin 12.3 g/dL (14.1-18.0); Lymphocytes % 41.2 % (10-50); Mean Corpuscular HGB Conc 33.2 g/dL (31.8-35.4); Mean Corpuscular Hemoglobin 29.5 pg (27.0-31.2); Mean Corpuscular Volume 88.9 fl (80-94); Mean Platelet Volume 9.8 fl (7.4-10.4); Monocytes # 0.4 K/mm3 (0.1-1.0); Monocytes % 7.5 % (1.7-9.3); Neutrophils # 2.2 K/mm3 (1.8-7.8); Neutrophils % 44.7 % (37.0-80.0); Platelet Count 164 K/mm3 (142-424); Red Blood Count 4.18 M/mm3 (4.60-6.20); Red Cell Distribution Width 17.3 % (11.5-17.5); White Blood Count 4.9 K/mm3 (4.8-10.8)
[2023-07-02 19:39] LABS: Chloride 101 mmol/L (98-107); Potassium 4.4 mmoL/L (3.5-5.1); Sodium 131 mmol/L (136-145)
[2023-07-02 19:41] LABS: Blood Urea Nitrogen 8 mg/dl (9-20); Estimated Glomerular Filt Rate 116 ml/min (>60); GFR (African American) 140 ML/MIN (>60)
[2023-07-02 19:42] LABS: Alanine Aminotransferase 15 U/L (12-78); Albumin Level 3.7 g/dl (3.5-5.0); Albumin/Globulin Ratio 1.3 (1.1-1.8); Alkaline Phosphatase 99 U/L (38-126); Anion Gap 7.4 mEq/L (5-15); Aspartate Amino Transferase 29 U/L (17-59); Bilirubin,Total 0.3 mg/dl (0.2-1.3); Calcium 8.6 mg/dl (8.4-10.2); Carbon Dioxide 27 mmol/L (22.0-30.0); Globulin 2.8 g/dL (1.3-3.2); Glucose 91 mg/dl (74-100); Lipase 555 U/L (23-300); Total Protein,Serum 6.5 g/dl (6.3-8.2)
[2023-07-04 08:26] LABS: Testosterone,Total 400 ng/dL (264-916)
== END 2023-07-02 23:59 ==
LOC: LAB.DROPOF 21:28
PROVIDERS: PCP Family Medicine; Visit Provider Family Medicine
DX: K85.90 Acute pancreatitis without necrosis or infection, unspecified (principal); K86.3 Pseudocyst of pancreas; R53.83 Other fatigue
CPT/HCPCS: 80053; 83690; 84403; 85025

== ENCOUNTER 2023-07-04 00:44 | Observation (INO) | payer MEDICAID, SELFPAY ==
[2023-07-04] VITALS (16 sets, daily range): BP systolic 88–120; BP diastolic 48–80; PULSE 65–92; RESP 15–16; TEMP 36.3–36.7; O2SAT 96–100; BMI 19.8; BMI 19.7
--- NOTE | 2023-07-04 01:05 | ED_ITS ---
Discharge Plan Disposition Chief Complaint: Abdominal Pain Clinical Impressions Clinical Impression: Pancreatitis, Pancreatic pseudocyst, SBO (small bowel obstruction) Discharge ED Provider: Jen Garcia General Adult HPI General Chief complaint: Abdominal Pain Stated complaint: vomiting, abd pain, strep + Time Seen by Provider: 07/04/23 00:51 Mode of Arrival: Ambulatory Source of Information: Patient Limitations: No Limitations Description of Symptoms (Recalled from ER Triage Doc. by RN): pt c/o abd pain with vomitting that started yesterday morning. pt has a history of pancreatitis. pt also tested positive for strep throat on friday History of Present Illness HPI narrative: This patient is a 58-year-old male with a history of chronic recurrent panc reatitis, pancreatic pseudocyst, and lung cancer with metastatic to the bone presented to the emergency department for evaluation with concern for epigastric abdominal pain radiating to his back and shoulders as well as nausea and constipation. He states that this started last night but is acutely worsened this morning. It feels similar to prior pancreatitis flares, but he states that he is feeling a little bit worse. He states he has not had imaging of his belly in a long time. He is on Creon and reports compliance with his medications. No fevers, chills, chest pain, shortness of breath, urinary symptoms, or other concerns. Of note, he is currently on amoxicillin for strep. Related Data Home Medications Medication Instructions Recorded Confirmed levetiracetam 500 mg tablet 500 mg PO BID Seizures 02/23/23 07/04/23 [id number] 2 cap PO TIDWMEAL Pancreatic 02/23/23 07/04/23 36,000-114,000-180,000 unit insufficiency capsule,delay rel Previous Rx's Medication Instructions Recorded pantoprazole 40 mg tablet,delayed 40 mg PO BID Acid reflux #180 tabs 11/15/22 release sucralfate 1 gram tablet (Carafate) 1 g PO BID Ulcers #180 tabs 11/15/22 promethazine 25 mg tablet 25 mg PO TID PRN nausea and 03/05/23 vomiting #90 tabs metoclopramide HCl 10 mg tablet 10 mg PO Q6H PRN nausea and 04/08/23 (Reglan) vomiting #30 tabs lorazepam 2 mg tablet 2 mg PO BIDP PRN Anxiety #60 tabs 05/01/23 albuterol sulfate 90 mcg/actuation 1 inh inhalation Q4HP PRN 06/02/23 breath activated powder Shortness Of Breath #1 ea inhaler,sensor oxycodone 10 mg tablet 10 mg PO BID PRN pain #60 tabs 06/09/23 Allergies Allergy/AdvReac Type Severity Reaction Status Date / Time cephalexin [From Keflex] Allergy Mild Hives Verified 07/02/23 13:27 sulfamethoxazole Allergy Unknown Verified 07/02/23 13:27 [From BACTRIM] trimethoprim [From BACTRIM] Allergy Unknown Verified 07/02/23 13:27 [facility] Disclaimer: The information contained in this section may have been updated after the patient was seen, as this information can be updated by other users. Medical History Alcohol abuse Alcoholic pancreatitis Bone marrow disorder Chronic alcohol abuse Cirrhosis COPD (chronic obstructive pulmonary disease) Gallstone pancreatitis GERD (gastroesophageal reflux disease) History of lung cancer History of lung cancer Hypokalemia Pancreatitis Surgical History Hx of cholecystectomy Family History Other Cancer of lung Emphysema lung Social History Smoking Status: Current every day smoker tobacco type: cigarettes packs per day: 3 alcohol intake: current substance use type: denies use current occupational status: unemployed Travel in the last 8 weeks: None household members: family housing: house current occupational exposures/hazards: No caffeine: No ROS Obtained: Yes All systems reviewed & no additional complaints except as documented Physical Exam General General appearance: alert, in no apparent distress and cachectic Comment: Chronically ill-appearing Head Head exam: atraumatic and normocephalic Eye Eye exam: Present normal appearance, PERRL and EOMI ENT ENT exam: Present normal oropharynx, mucous membranes dry and normal external ear exam Neck Neck exam: Present normal inspection, full ROM and trachea midline; Absent tenderness Chest Chest inspection: Present normal inspection and symmetric chest wall rise; Absent tenderness Respiratory Respiratory exam: Present normal lung sounds bilaterally; Absent respiratory distress, wheezes, stridor or accessory muscle use Cardiovascular Cardiovascular exam: Present regular rate and normal rhythm Abdominal Exam Abdominal exam: Present soft, tenderness (Generalized), guarding (Epigastric) and normal bowel sounds; Absent distention, rebound or rigidity Extremities Exam Extremities exam: Present normal inspection, full ROM and normal capillary refill; Absent tenderness or edema Back Exam Back exam: Present normal inspection and full ROM; Absent tenderness Neurological Exam Neurological exam: Present alert, oriented X3, CN II-XII intact and normal gait; Absent motor sensory deficit Psychiatric Psychiatric exam: Present normal affect and normal mood Skin Skin exam: Present warm and dry Medical Decision Making Medical Records Medical records reviewed: Yes I reviewed the patient's medical records. [place] Inquiry Pt receiving controlled substance: No Vital Signs: 07/04/23 00:46 07/04/23 01:30 07/04/23 02:00 Temperature 97.6 F Temperature Source Oral Pulse Rate 84 87 Pulse Rate [Right] 92 H Respiratory Rate 16 Blood Pressure 104/66 L 108/66 L Blood Pressure [Right Arm] 120/80 Blood Pressure Mean [Right Arm] 93 02 Sat by Pulse Oximetry 99 100 98 Oxygen Delivery Method Room Air Room Air 07/04/23 02:30 07/04/23 03:00 Temperature Temperature Source Pulse Rate 92 H 89 Pulse Rate [Right] Respiratory Rate Blood Pressure 120/76 117/70 Blood Pressure [Right Arm] Blood Pressure Mean [Right Arm] 02 Sat by Pulse Oximetry 99 99 Oxygen Delivery Method Room Air Room Air Lab Data Lab results reviewed: Yes I reviewed the patient's lab results. Lab Results 07/04/23 01:06: WBC 10.2 D, RBC 4.78, Hgb 14.1, Hct 42.2, MCV 88.3, MCH 29.5, MCHC 33.4, RDW 17.0, Plt Count 212 D, MPV 9.9, Neut % (Auto) 73.7, Lymph % (Auto) 19.6, [place] % (Auto) 3.2, Eos % (Auto) 3.3, Baso % (Auto) 0.2, Neut # (Auto) 7.5, Lymph # (Auto) 2.0, [place] # (Auto) 0.3, Eos # (Auto) 0.3, Baso # (Auto) 0.0 07/04/23 01:22: Urine Color Yellow, Urine Appearance Clear, Urine pH 7.5, Ur Specific [place] 1.015, Urine Protein Negative, Urine Glucose (UA) Negative, Urine Ketones Negative, Urine Blood Negative, Urine Nitrate Negative, Urine Bilirubin Negative, Urine Urobilinogen 0.2, Ur Leukocyte Esterase Negative, Urine RBC None, Urine WBC None, Ur Squamous Epith Cells Occasional, Urine Bacteria Trace 07/04/23 01:30: Sodium 134 L, Potassium 4.2, Chloride 102, Carbon Dioxide 27, Anion Gap 9.2, BUN 9, Creatinine 0.60 L, Estimated Creat Clear 112, Estimated GFR 138, Est GFR ( Amer) 167, Glucose 105 H, Calcium 8.6, Total Bilirubin 0.6, AST 26, ALT 15, Alkaline Phosphatase 101, Total Protein 6.6, Albumin 3.7, Globulin 2.9, Albumin/Globulin Ratio 1.3, Lipase 1587 H 07/04/23 01:06 07/04/23 01:30 Orders (Tests/Meds): ED MEDICATIONS Generic Name Dose Route Start Last Admin Trade Name Freq PRN Reason Stop Dose Admin Acetaminophen 650 mg 07/04/23 03:26 Acetaminophen 325mg Tab PO 08/03/23 03:25 Q4HP PRN Fever or Mild Pain (1-3) Sodium Chloride 1,000 mls @ 100 mls/hr 07/04/23 03:30 Sod Chlor 0.9% 1000ml Bag IV 08/03/23 03:29 .Q10H BUZZ Morphine Sulfate 2 mg 07/04/23 03:26 Morphine 2mg/Ml Syringe IV 08/03/23 03:25 Q2HP PRN Severe Pain (7-10) Nicotine 21 mg 07/04/23 03:26 Nicotine 21mg/24hr Patch TD 08/03/23 03:25 DAILYP PRN Nicotine Cravings Ondansetron HCl 4 mg 07/04/23 03:26 Ondansetron 4mg/2ml Vial IV 08/03/23 03:25 Q8HP PRN Nausea Pantoprazole Sodium 40 mg 07/04/23 21:00 Pantoprazole 40mg Vial IV 08/03/23 20:59 HS BUZZ Sodium Chloride 10 ml 07/04/23 01:48 07/04/23 01:49 Sodium Chloride 0.9% 10ml Syr (Rad Only) IV 08/03/23 01:47 10 ml NEEDED PRN Administration Maintain IV Site Discontinued Medications Generic Name Dose Route Start Last Admin Trade Name Freq PRN Reason Stop Dose Admin Sodium Chloride 1,000 mls @ 999 mls/hr 07/04/23 00:54 07/04/23 01:10 Sod Chlor 0.9% 1000ml Bag IV 07/04/23 01:54 999 mls/hr .Q1H1M ONE Administration Sodium Chloride 1,000 mls @ 999 mls/hr 07/04/23 01:47 07/04/23 01:52 Sod Chlor 0.9% 1000ml Bag IV 07/04/23 02:47 999 mls/hr .Q1H1M ONE Administration Iopamidol 75 ml 07/04/23 01:48 07/04/23 01:49 Iopamidol-370 (76%);100ml Bottle IV 07/04/23 01:49 75 ml ONCE ONE Administration Morphine Sulfate 4 mg 07/04/23 00:54 07/04/23 01:10 Morphine 4mg/Ml Syringe IV 07/04/23 00:55 4 mg ONCE ONE Administration Ondansetron HCl 4 mg 07/04/23 00:54 07/04/23 01:10 Ondansetron 4mg/2ml Vial IV 07/04/23 00:55 4 mg ONCE ONE Administration ORDERS Category Date Time Status CT abdomen pelvis w con Stat Cat Scan 07/04/23 01:06 Completed On-Call Gen'l Surgery Consult [Consult to On-Call Gen'l Cons 07/04/23 03:26 Ordered Surgeon] [CONS] Routine Complete Blood Count Auto Diff AMLAB Lab 07/04/23 06:00 Ordered Complete Blood Count Auto Diff Stat Lab 07/04/23 01:06 Completed Comprehensive Metabolic Panel AMLAB Lab 07/04/23 06:00 Ordered Comprehensive Metabolic Panel Stat Lab 07/04/23 01:30 Completed Lipase Stat Lab 07/04/23 01:30 Completed Urinalysis and Microscopic Stat Lab 07/04/23 01:22 Completed Medical Decision Narrative: In summary, this patient is a 58-year-old male presenting to the Emergency Department for evaluation of epigastric abdominal pain radiating to his back as well as difficulty having bowel movement. Differential diagnoses considered include but are not limited to acute on chronic pancreatitis, constipation, bowel obstruction, bowel perforation, gastroenteritis. Ruling out the most morbid conditions drove assessment. On exam, the patient is chronically ill-appearing and cachectic, but he is in no acute distress with normal vital signs on cardiac telemetry. He does have epigastric abdominal tenderness, but no rebound or rigidity. Workup included CBC, CMP, lipase, urinalysis, and CT abdomen pelvis with IV contrast. He was given a liter bolus of IV fluids as well as IV morphine and Zofran for symptomatic improvement. I independently interpreted CT scan prior to the radiologist read and noted no obvious acute changes in the pancreas, however patient does have findings concerning for small bowel obstruction. Please see their read for final interpretation. I had an indirect discussion with the radiologist regarding the patient's peripancreatic fluid collections, and they noted that these are largely unchanged from previous. No obvious transition po int for small bowel obstruction. Labs were obtained that demonstrated pace of 1500, but no other obvious acutely concerning abnormalities at this time. On reassessment, patient had good improvement after administration of as above. Given his small bowel obstruction as well as pancreatitis, feel he would benefit from admission for continued monitoring and fluid resuscitation. I had an interactive discussion with the hospitalist who admitted the patient.. Critical Care Critical Care Time Critical Care Time: No
--- NOTE | 2023-07-04 01:06 | CT_ITS ---
PROCEDURE INFORMATION: Exam: CT Abdomen And Pelvis With Contrast Exam date and time: 07/04/2023 1:42 AM Age: 58 years old Clinical indication: Abdominal pain; Additional info: Epigastric abd pain, h/o pancreatic pseudocyst TECHNIQUE: Imaging protocol: Computed tomography of the abdomen and pelvis with contrast. Radiation optimization: All CT scans at this facility use at least one of these dose optimization techniques: automated exposure control; mA and/or kV adjustment per patient size (includes targeted exams where dose is matched to clinical indication); or iterative reconstruction. Contrast material: ISOVUE; Contrast volume: 75 ml; Contrast route: IV; COMPARISON: CT ABDOMEN PELVIS W CON 02/28/2023 12:50 PM FINDINGS: Tubes, catheters and devices: A percutaneous gastrojejunostomy tube is noted in appropriate position. Lungs: No acute finding. Liver: Right upper quadrant fluid collection posteromedial to the right hepatic lobe measures 6.0 x 11.7 cm compared to 4.6 x 10.0 cm. Fluid collection posteromedial to the left hepatic lobe measures 1.7 x 4.6 cm compared to maximum dimension of 7.8 cm previously. These 2 fluid collections appear to have some communication in the region of the evelio hepatis. Gallbladder and bile ducts: The gallbladder is absent. There is no biliary ductal dilation. Pancreas: Diffuse pancreatic calcifications are present consistent with chronic pancreatitis. Spleen: Normal. No splenomegaly. Adrenal glands: Normal. No mass. Kidneys and ureters: The kidneys demonstrate symmetric function. Two left renal cortical cysts are noted. Stomach and bowel: The stomach is dilated and fluid-filled. Multiple fluid-filled loops of small bowel measuring up to 3.2 cm in diameter. Distal small bowel loops are normal in caliber. Moderate fecal content throughout the colon. Appendix: The appendix is not identified. Intraperitoneal space: There is mild ascites. Vasculature: There is mild calcific atherosclerotic disease without aneurysmal dilation of the aorta. No dissection. Lymph nodes: Unremarkable. No enlarged lymph nodes. Urinary bladder: Unremarkable as visualized. Reproductive: Unremarkable as visualized. Bones/joints: Severe degenerative disc disease noted at L5-S1. Bilateral L5 pars defects. No acute fracture. Soft tissues: There is mild body wall edema. IMPRESSION: 1. Fluid-filled dilated proximal and mid small bowel loops with decompressed distal small bowel loops suggest a developing small bowel obstruction. I can not identify a transition zone or obstructing mass. Follow-up is recommended. 2. Mild ascites slightly less evident than on the prior exam. 3. Persistent loculated fluid collections adjacent to the liver which appear to communicate with one another. The anterior component is smaller in size and the posterior component is larger size compared to the prior exam. 4. Other nonurgent findings as detailed. COMMENTS: Consistent with the [employer]'s Incidental Findings Committee white paper (J Am Blair Radiol 2018): Any incidental renal lesion less than 1 cm or classified as too small to characterize, or any incidental cystic renal lesion characterized as simple-appearing, is likely benign. No follow-up imaging is recommended for these lesions per consensus recommendations based on imaging criteria. THIS REPORT CONTAINS FINDINGS THAT MAY BE CRITICAL TO PATIENT CARE. The findings were verbally communicated via telephone conference at 3:15 AM EST on 07/04/2023 with Jen Garcia. The findings were acknowledged and understood.
[2023-07-04] MEDS: ONDANSETRON 4MG/2ML VIAL 4 MG IV (01:10)
[2023-07-04] MEDS: 0.9 % SODIUM CHLORIDE 1000ML 1,000 ML 999 ML IV ×2 (01:10→01:52)
[2023-07-04] MEDS: MORPHINE 4MG/ML SYRINGE 4 MG IV (01:10)
[2023-07-04 01:15] LABS: Basophils % 0.2 % (0.1-2.0); Eosinophils # 0.3 K/mm3 (0.0-0.4); Eosinophils % 3.3 % (0.1-12.0); Hematocrit 42.2 % (42.0-52.0); Hemoglobin 14.1 g/dL (14.1-18.0); Lymphocytes % 19.6 % (10-50); Mean Corpuscular HGB Conc 33.4 g/dL (31.8-35.4); Mean Corpuscular Hemoglobin 29.5 pg (27.0-31.2); Mean Corpuscular Volume 88.3 fl (80-94); Mean Platelet Volume 9.9 fl (7.4-10.4); Monocytes # 0.3 K/mm3 (0.1-1.0); Monocytes % 3.2 % (1.7-9.3); Neutrophils # 7.5 K/mm3 (1.8-7.8); Neutrophils % 73.7 % (37.0-80.0); Platelet Count 212 K/mm3 (142-424); Red Blood Count 4.78 M/mm3 (4.60-6.20); White Blood Count 10.2 K/mm3 (4.8-10.8)
[2023-07-04 01:28] LABS: Microscopic, Urine URINE MICROSCOPIC (MICROSCOPIC)
[2023-07-04 01:31] LABS: Appearance,Urine CLEAR (Clear); Bilirubin,Urine Negative (Negative); Blood, Urine Negative (Negative); Color,Urine YELLOW (Yellow); Glucose,Urine (UA) Negative (Negative); Ketones,Urine Negative (Negative); Leukocyte Esterase,Urine Negative (Negative); Nitrate,Urine Negative (Negative); PH,Urine 7.5 (5.0-8.5); Protein,Urine Negative (Negative); Specific Gravity, Urine 1.015 (1.005-1.030); Urobilinogen,Urine 0.2 EU/dl (0.2)
--- NOTE | 2023-07-04 01:41 | PC.NURSE ---
pt to radiology
[2023-07-04 01:44] LABS: Alanine Aminotransferase 15 U/L (12-78); Albumin Level 3.7 g/dl (3.5-5.0); Albumin/Globulin Ratio 1.3 (1.1-1.8); Alkaline Phosphatase 101 U/L (38-126); Anion Gap 9.2 mEq/L (5-15); Aspartate Amino Transferase 26 U/L (17-59); Bilirubin,Total 0.6 mg/dl (0.2-1.3); Blood Urea Nitrogen 9 mg/dl (9-20); Calcium 8.6 mg/dl (8.4-10.2); Carbon Dioxide 27 mmol/L (22.0-30.0); Chloride 102 mmol/L (98-107); Creatinine Clearance Estimated 112 mL/min (50-200); Estimated Glomerular Filt Rate 138 ml/min (>60); GFR (African American) 167 ML/MIN (>60); Globulin 2.9 g/dL (1.3-3.2); Glucose 105 mg/dl (74-100); Potassium 4.2 mmoL/L (3.5-5.1); Sodium 134 mmol/L (136-145); Total Protein,Serum 6.6 g/dl (6.3-8.2)
[2023-07-04 01:46] LABS: Lipase 1587 U/L (23-300)
[2023-07-04] MEDS: IOPAMIDOL-370 (76%);100ML BOTTLE 75 ML IV (01:49)
[2023-07-04] MEDS: SODIUM CHLORIDE 0.9% 10ML SYR (RAD ONLY) 10 ML IV (01:49)
[2023-07-04 02:02] LABS: Bacteria,Urine Trace /lpf; Squamous Epithelial Cell,Urine Occasional #/hpf (0-5)
--- NOTE | 2023-07-04 03:27 | PC.NURSE ---
on phone with hospitalist. notified house detective of admission
--- NOTE | 2023-07-04 03:28 | PC.NURSE ---
pt will be boarding in er
--- NOTE | 2023-07-04 03:38 | P.HP_ITS ---
Attending attestation Patient was seen and evaluated at the bedside myself, agree with [facility] note. History of Present Illness *Admission Date: 07/04/23 *Reason for visit:: abd pain *History of present illness: This is a well known 58-year-old male with history of metastatic lung cancer, GJ tube, gastric emptying difficulty 2/2 obstruction, chronic alcohol induced pancreatitis, who presented to the ER with worsening abdominal pain. Patient referred epigastric abdominal pain radiating to his back and shoulders as well as nausea and constipation. He states that this started last night but is acutely worsened this morning. It feels similar to prior pancreatitis flares, but he states that he is feeling a little bit worse. He states he has not had imaging of his belly in a long time. He is on Creon and reports compliance with his medications. No fevers, chills, chest pain, shortness of breath, urinary symptoms, or other concerns. Of note, he is currently on amoxicillin for strep. Admitted for further work up and management. [facility] Disclaimer: The information contained in this section may have been updated after the patient was seen, as this information can be updated by other users. Medical History Alcohol abuse Alcoholic pancreatitis Bone marrow disorder Chronic alcohol abuse Cirrhosis COPD (chronic obstructive pulmonary disease) Gallstone pancreatitis GERD (gastroesophageal reflux disease) History of lung cancer History of lung cancer Hypokalemia Pancreatitis Surgical History Hx of cholecystectomy Family History Other Cancer of lung Emphysema lung Social History Smoking Status: Current every day smoker tobacco type: cigarettes packs per day: 3 alcohol intake: current substance use type: denies use current occupational status: unemployed Travel in the last 8 weeks: None household members: family housing: house current occupational exposures/hazards: No caffeine: No Review of Systems Review of Systems Review of systems:: pertinent systems reviewed and negative unless documented below Meds Home Medications and Allergies Home Medications Medication Instructions Recorded Confirmed Type pantoprazole 40 mg tablet,delayed 40 mg PO BID Acid reflux #180 tabs 11/15/22 07/04/23 Rx release sucralfate 1 gram tablet (Carafate) 1 g PO BID Ulcers #180 tabs 11/15/22 07/04/23 Rx levetiracetam 500 mg tablet 500 mg PO BID Seizures 02/23/23 07/04/23 History [id number]-[id number] 2 cap PO TIDWMEAL Pancreatic 02/23/23 07/04/23 History 36,000-114,000-180,000 unit insufficiency capsule,delay rel promethazine 25 mg tablet 25 mg PO TID PRN nausea and 03/05/23 07/04/23 Rx vomiting #90 tabs metoclopramide HCl 10 mg tablet 10 mg PO Q6H PRN nausea and 04/08/23 07/04/23 Rx (Reglan) vomiting #30 tabs lorazepam 2 mg tablet 2 mg PO BIDP PRN Anxiety #60 tabs 05/01/23 07/04/23 Rx albuterol sulfate 90 mcg/actuation 1 inh inhalation Q4HP PRN 06/02/23 07/04/23 Rx breath activated powder Shortness Of Breath #1 ea inhaler,sensor oxycodone 10 mg tablet 10 mg PO BID PRN pain #60 tabs 06/09/23 07/04/23 Rx New Prescriptions to Start Prescriptions: Allergies Allergy/AdvReac Type Severity Reaction Status Date / Time cephalexin [From Keflex] Allergy Mild Hives Verified 07/02/23 13:27 sulfamethoxazole Allergy Unknown Verified 07/02/23 13:27 [From BACTRIM] trimethoprim [From BACTRIM] Allergy Unknown Verified 07/02/23 13:27 Exam Data for Last 24 hours Vital signs and Labs for Last 24 Hours: Temp Pulse Resp BP Pulse Ox O2 Del Method 97.6 F 89 16 117/70 99 Room Air 07/04/23 00:46 07/04/23 03:00 07/04/23 00:46 07/04/23 03:00 07/04/23 03:00 07/04/23 03:00 Laboratory Results - last 24 hr 07/04/23 01:06: WBC 10.2 D, RBC 4.78, Hgb 14.1, Hct 42.2, MCV 88.3, MCH 29.5, MCHC 33.4, RDW 17.0, Plt Count 212 D, MPV 9.9, Neut % (Auto) 73.7, Lymph % (Auto) 19.6, [place] % (Auto) 3.2, Eos % (Auto) 3.3, Baso % (Auto) 0.2, Neut # (Auto) 7.5, Lymph # (Auto) 2.0, [place] # (Auto) 0.3, Eos # (Auto) 0.3, Baso # (Auto) 0.0 07/04/23 01:22: Urine Color Yellow, Urine Appearance Clear, Urine pH 7.5, Ur Specific [place] 1.015, Urine Protein Negative, Urine Glucose (UA) Negative, Urine Ketones Negative, Urine Blood Negative, Urine Nitrate Negative, Urine Bilirubin Negative, Urine Urobilinogen 0.2, Ur Leukocyte Esterase Negative, Urine RBC None, Urine WBC None, Ur Squamous Epith Cells Occasional, Urine Bacteria Trace 07/04/23 01:30: Sodium 134 L, Potassium 4.2, Chloride 102, Carbon Dioxide 27, Anion Gap 9.2, BUN 9, Creatinine 0.60 L, Estimated Creat Clear 112, Estimated GFR 138, Est GFR ( Amer) 167, Glucose 105 H, Calcium 8.6, Total Bilirubin 0.6, AST 26, ALT 15, Alkaline Phosphatase 101, Total Protein 6.6, Albumin 3.7, Globulin 2.9, Albumin/Globulin Ratio 1.3, Lipase 1587 H I & O for Last 24 hours: Intake & Output 07/01/23 07/02/23 07/03/23 07/04/23 23:59 23:59 23:59 23:59 Weight 58.967 kg Constitutional Constitutional: no acute distress, thin, cachectic and chronically ill appearing *Routine HEENT Exam Head: Present normocephalic Eye: Present EOMI and normal accommodation ENT: Present mucous membranes moist *Routine Neck Exam Neck: Present supple and full ROM *Routine Respiratory Exam Respiratory: Present normal respiratory effort; Absent accessory muscle use or rhonchi *Routine Cardiovascular Exam Cardiovascular: Present RRR and Normal S1 *Routine Abdominal Exam Abdominal: Present soft, normoactive bowel sounds and tenderness (LUQ); Absent rebound or guarding Comments: G tube in place in right abdomen *Routine Rectal Exam Rectal:: deferred *Routine Genitalia Exam Genitalia:: deferred *Routine Extremities Exam Extremities: Present full ROM Comments: thin *Routine Skin Exam Skin: Present intact *Routine Neurological Exam Neurological: Present alert, oriented X3, normal reflexes and moving all extremities; Absent altered mental status H&P: Result Imaging and Cardiology CT scan - abdomen: Status: image reviewed by me, Preliminary report and final report EKG: Status: image reviewed by me and Preliminary report Assessment and Plan *Assessment and plan (1) SBO (small bowel obstruction): Status: Acute Category: Medical Code(s): K56.609 - Unspecified intestinal obstruction, unspecified as to partial versus complete obstruction (2) Acute on chronic pancreatitis: Status: Acute Category: Medical Code(s): K85.90 - Acute pancreatitis without necrosis or infection, unspecified; K86.1 - Other chronic pancreatitis (3) Abdominal pain: Status: Acute Qualifiers: Abdominal location: generalized Qualified Code(s): R10.84 - Generalized abdominal pain Category: Medical Code(s): R10.9 - Unspecified abdominal pain (4) Pancreatic pseudocyst: Status: Chronic Category: Medical Code(s): K86.3 - Pseudocyst of pancreas (5) Gastric outlet obstruction: Status: Chronic Category: Medical Code(s): K31.1 - Adult hypertrophic pyloric stenosis (6) Metastatic non-small cell lung cancer: Status: Chronic Category: Medical Code(s): C34.90 - Malignant neoplasm of unspecified part of unspecified bronchus or lung (7) Gastrostomy tube dependent: Status: Chronic Category: Medical Code(s): Z93.1 - Gastrostomy status (8) Severe protein-calorie malnutrition: Status: Acute Category: Medical Code(s): E43 - Unspecified severe protein-calorie malnutrition Plan 58-year-old male with history of metastatic lung cancer, GJ tube, gastric emptying difficulty 2/2 obstruction, chronic alcohol induced pancreatitis, who presented to the ER with worsening abdominal pain. Patient referred epigastric abdominal pain radiating to his back and shoulders as well as nausea and constip ation. Presents with acute abdominal pain and increase in lipase from baseline. Discussed case with the ER, concerning for new SBO. Requested admission for further management. Medicine agreed to admit for nutrition eval, pain control, and further management. Problems addressed as follows: SBO Acute on chronic pancreatitis Pancreatic pseudocyst Chronic alcoholic pancreatitis -Lipase elevated to 1587 on initial labs. Baseline approximately 700. -CT of the abdomen showing no acute inflammation of pancreas, pseudocyst remained stable. Concerning for SBO. -IV Toradol 30 mg every 6 hours as needed and IV morphine 4 mg every 2 hours as needed for moderate to severe pain respectively. Monitor for toxicity -Repeat CBC, CMP, lipase ordered for the morning Chronic malnutrition/severe protein calorie malnutrition G-tube been -Patient tolerates p.o. fluids, will continue with clear liquid diet orally; initiate tube feeds with the assistance of nutrition Seizure disorder -Continue home Keppra 500 mg twice daily and Ativan 2 mg twice daily Metastatic non-small cell lung cancer, complicates his overall health. We will continue to discuss goals of care given worsening pancreatitis acute on chronic in the setting of metastatic cancer. Full code Tube feeds, p.o. clear fluids Lovenox 40 mg subcu daily. on Protonix
[2023-07-04] MEDS: 0.9 % SODIUM CHLORIDE 1000ML 1,000 ML 100 ML IV ×2 (04:00→10:35)
[2023-07-04] MEDS: METRONIDAZ/SOD CHL 500 MG/100 ML PIGGYBACK 100 MG IV ×3 (06:08→21:01)
--- NOTE | 2023-07-04 06:45 | PC.NURSE ---
Observation admission to 202 with dx of pancreatitis to service of the hospitalist.
--- NOTE | 2023-07-04 07:23 | HMH.PHAINT1 ---
Pharmacy Intervention Comments: MEDICATION RECONCILIATION COMPLETED ON PATIENT USING EXTERNAL FILL HISTORY FROM PHARMACY AND LIST FROM PCP OFFICE. -YESIKA SMITH, NIKOLED
--- NOTE | 2023-07-04 07:46 | PC.NURSE ---
rounded on pt turned heat down to about 70 per pt request and he was given a urinal, call light at bs
[2023-07-04 08:07] LABS: Basophils % 0.3 % (0.1-2.0); Eosinophils # 0.2 K/mm3 (0.0-0.4); Eosinophils % 2.7 % (0.1-12.0); Lymphocytes # 1.7 K/mm3 (0.7-4.5); Lymphocytes % 29.5 % (10-50); Mean Corpuscular HGB Conc 32.9 g/dL (31.8-35.4); Mean Corpuscular Hemoglobin 29.1 pg (27.0-31.2); Mean Corpuscular Volume 88.4 fl (80-94); Mean Platelet Volume 8.5 fl (7.4-10.4); Monocytes # 0.4 K/mm3 (0.1-1.0); Monocytes % 6.9 % (1.7-9.3); Neutrophils # 3.5 K/mm3 (1.8-7.8); Neutrophils % 60.7 % (37.0-80.0); Platelet Count 160 K/mm3 (142-424); Red Blood Count 3.96 M/mm3 (4.60-6.20); Red Cell Distribution Width 17.2 % (11.5-17.5); White Blood Count 5.8 K/mm3 (4.8-10.8)
[2023-07-04 08:17] LABS: Chloride 107 mmol/L (98-107); Potassium 4.1 mmoL/L (3.5-5.1); Sodium 133 mmol/L (136-145)
[2023-07-04 08:20] LABS: Alanine Aminotransferase 16 U/L (12-78); Albumin Level 2.8 g/dl (3.5-5.0); Albumin/Globulin Ratio 1.1 (1.1-1.8); Alkaline Phosphatase 82 U/L (38-126); Anion Gap 3.1 mEq/L (5-15); Aspartate Amino Transferase 27 U/L (17-59); Bilirubin,Total 0.4 mg/dl (0.2-1.3); Blood Urea Nitrogen 7 mg/dl (9-20); Carbon Dioxide 27 mmol/L (22.0-30.0); Creatinine Clearance Estimated 112 mL/min (50-200); Estimated Glomerular Filt Rate 138 ml/min (>60); GFR (African American) 167 ML/MIN (>60); Globulin 2.6 g/dL (1.3-3.2); Total Protein,Serum 5.4 g/dl (6.3-8.2)
[2023-07-04 08:21] LABS: Calcium 7.8 mg/dl (8.4-10.2); Glucose 93 mg/dl (74-100)
[2023-07-04 08:48] LABS: Hemoglobin 11.6 g/dL (14.1-18.0)
--- NOTE | 2023-07-04 08:52 | PC.NURSE ---
Report given to NANNETTE Remy on Med Surg.
--- NOTE | 2023-07-04 09:07 | PC.NURSE ---
arrived from ED by w/c
[2023-07-04] MEDS: levETIRAcetam 500 MG TABLET PO ×2 (13:03→20:20)
[2023-07-04] MEDS: LORAZEPAM 2 MG 2 EACH PO (13:09)
--- NOTE | 2023-07-04 13:16 | P.CONS_ITS ---
History of Present Illness *Admission Date: 07/04/23 *Reason for visit:: Possible small bowel obstruction *History of present illness: This is a 58-year-old gentleman seen in consultation after presenting to the emergency department with increasing abdominal pain. He has an exceptionally complex medical/surgical history as noted below. Evaluation included a CT scan which revealed a fluid-filled dilated proximal and mid small bowel with decompressed distal loops concerning for developing obstruction. Focal transition point not noted. Obstructing mass not noted. The patient states that he continues to have bowel function and had a lin normal bowel movement yesterday . He states that he is not nauseous and has had no emesis. Forwarded from admission H&P: This is a well known 58-year-old male with history of metastatic lung cancer, GJ tube, gastric emptying difficulty 2/2 obstruction, chronic alcohol induced pancreatitis, who presented to the ER with worsening abdominal pain. Patient referred epigastric abdominal pain radiating to his back and shoulders as well as nausea and constipation. He states that this started last night but is acutely worsened this morning. It feels similar to prior pancreatitis flares, but he states that he is feeling a little bit worse. He states he has not had imaging of his belly in a long time. He is on Creon and reports compliance with his medications. No fevers, chills, chest pain, shortness of breath, urinary symptoms, or other concerns. Of note, he is currently on amoxicillin for strep. Admitted for further work up and management. Forwarded from emergency department evaluation: This patient is a 58-year-old male with a history of chronic recurrent pancreatitis, pancreatic pseudocyst, and lung cancer with metastatic to the bone presented to the emergency department for evaluation with concern for epigastric abdominal pain radiating to his back and shoulders as well as nausea and constipation. He states that this started last night but is acutely worsened this morning. It feels similar to prior pancreatitis flares, but he states that he is feeling a little bit worse. He states he has not had imaging of his belly in a long time. He is on Creon and reports compliance with his medications. No fevers, chills, chest pain, shortness of breath, urinary symptoms, or other concerns. Of note, he is currently on amoxicillin for strep. PFSH [facility] Disclaimer: The information contained in this section may have been updated after the patient was seen, as this information can be updated by other users. Medical History Alcohol abuse Alcoholic pancreatitis Bone marrow disorder Chronic alcohol abuse Cirrhosis COPD (chronic obstructive pulmonary disease) Gallstone pancreatitis GERD (gastroesophageal reflux disease) History of lung cancer History of lung cancer Hypokalemia Pancreatitis Surgical History Hx of cholecystectomy Family History Other Cancer of lung Emphysema lung Social History (Updated 07/04/23 @ 11:30 by Maricarmen Hopkins RN) Smoking Status: Current every day smoker tobacco type: cigarettes packs per day: 3 alcohol intake: current substance use type: denies use current occupational status: unemployed Travel in the last 8 weeks: None household members: family housing: house current occupational exposures/hazards: No caffeine: No Meds Home Medications and Allergies Home Medications Medication Instructions Recorded Confirmed Type pantoprazole 40 mg tablet,delayed 40 mg PO BID Acid reflux #180 tabs 11/15/22 07/04/23 Rx release sucralfate 1 gram tablet (Carafate) 1 g PO BID Ulcers #180 tabs 11/15/22 07/04/23 Rx levetiracetam 500 mg tablet 500 mg PO BID Seizures 02/23/23 07/04/23 History cujbje-afxyphgf-ryntxko 2 cap PO TIDWMEAL Pancreatic 02/23/23 07/04/23 History 36,000-114,000-180,000 unit insufficiency capsule,delay rel lorazepam 2 mg tablet 2 mg PO BIDP PRN Anxiety #60 tabs 05/01/23 07/04/23 Rx albuterol sulfate 90 mcg/actuation 1 inh inhalation Q4HP PRN 06/02/23 07/04/23 Rx breath activated powder Shortness Of Breath #1 ea inhaler,sensor oxycodone 10 mg tablet 10 mg PO BIDP PRN Moderate Pain 07/04/23 07/04/23 History (Scale Score 5-6) promethazine 25 mg tablet 25 mg PO TIDP PRN nausea and 07/04/23 07/04/23 History vomiting New Prescriptions to Start Prescriptions: Allergies Allergy/AdvReac Type Severity Reaction Status Date / Time cephalexin [From Keflex] Allergy Mild Hives Verified 07/02/23 13:27 sulfamethoxazole Allergy Unknown Verified 07/02/23 13:27 [From BACTRIM] trimethoprim [From BACTRIM] Allergy Unknown Verified 07/02/23 13:27 Exam (Inpt) Vital signs and Labs for Last 24 Hours: Temp Pulse Resp BP Pulse Ox O2 Del Method 98.0 F 74 16 102/68 L 98 Room Air 07/04/23 09:11 07/04/23 09:11 07/04/23 09:11 07/04/23 09:11 07/04/23 08:30 07/04/23 12:57 Laboratory Results - last 24 hr 07/04/23 01:06: WBC 10.2 D, RBC 4.78, Hgb 14.1, Hct 42.2, MCV 88.3, MCH 29.5, MCHC 33.4, RDW 17.0, Plt Count 212 D, MPV 9.9, Neut % (Auto) 73.7, Lymph % (Auto) 19.6, [place] % (Auto) 3.2, Eos % (Auto) 3.3, Baso % (Auto) 0.2, Neut # (Auto) 7.5, Lymph # (Auto) 2.0, [place] # (Auto) 0.3, Eos # (Auto) 0.3, Baso # (Auto) 0.0 07/04/23 01:22: Urine Color Yellow, Urine Appearance Clear, Urine pH 7.5, Ur Specific [place] 1.015, Urine Protein Negative, Urine Glucose (UA) Negative, Urine Ketones Negative, Urine Blood Negative, Urine Nitrate Negative, Urine Bilirubin Negative, Urine Urobilinogen 0.2, Ur Leukocyte Esterase Negative, Urine RBC None, Urine WBC None, Ur Squamous Epith Cells Occasional, Urine Bacteria Trace 07/04/23 01:30: Sodium 134 L, Potassium 4.2, Chloride 102, Carbon Dioxide 27, Anion Gap 9.2, BUN 9, Creatinine 0.60 L, Estimated Creat Clear 112, Estimated GFR 138, Est GFR ( Amer) 167, Glucose 105 H, Calcium 8.6, Total Bilirubin 0.6, AST 26, ALT 15, Alkaline Phosphatase 101, Total Protein 6.6, Albumin 3.7, Globulin 2.9, Albumin/Globulin Ratio 1.3, Lipase 1587 H 07/04/23 07:46: WBC 5.8 D, RBC 3.96 L, Hgb 11.6 L D, Hct 35.0 L, MCV 88.4, MCH 29.1, MCHC 32.9, RDW 17.2, Plt Count 160, MPV 8.5, Neut % (Auto) 60.7, Lymph % (Auto) 29.5, [place] % (Auto) 6.9, Eos % (Auto) 2.7, Baso % (Auto) 0.3, Neut # (Auto) 3.5, Lymph # (Auto) 1.7, [place] # (Auto) 0.4, Eos # (Auto) 0.2, Baso # (Auto) 0.0, Sodium 133 L, Potassium 4.1, Chloride 107, Carbon Dioxide 27, Anion Gap 3.1 L, BUN 7 L, Creatinine 0.60 L, Estimated Creat Clear 112, Estimated GFR 138, Est GFR ( Amer) 167, Glucose 93, Calcium 7.8 L, Total Bilirubin 0.4, AST 27, ALT 16, Alkaline Phosphatase 82, Total Protein 5.4 L, Albumin 2.8 L D, Globulin 2.6, Albumin/Globulin Ratio 1.1 I & O for Labs for Last 24 Hours: Intake & Output 07/02/23 07/03/23 07/04/23 07/05/23 11:59 11:59 11:59 11:59 Output Total 0 / 0 Balance 0 / 0 Weight 129 lb 15.753 oz Constitutional: no acute distress Respiratory: Absent respiratory distress Cardiac: Absent Tachycardia GI: Present soft and tenderness (Mild to moderate tenderness throughout); Absent distention Comments:: Gastrostomy (PEG/J) tube in position without evidence of infection or significant migration. Results Labs 07/04/23 07:46 07/04/23 07:46 Labs: Laboratory Results - last 24 hr 07/04/23 01:06: WBC 10.2 D, RBC 4.78, Hgb 14.1, Hct 42.2, MCV 88.3, MCH 29.5, MCHC 33.4, RDW 17.0, Plt Count 212 D, MPV 9.9, Neut % (Auto) 73.7, Lymph % (Auto) 19.6, [place] % (Auto) 3.2, Eos % (Auto) 3.3, Baso % (Auto) 0.2, Neut # (A uto) 7.5, Lymph # (Auto) 2.0, [place] # (Auto) 0.3, Eos # (Auto) 0.3, Baso # (Auto) 0.0 07/04/23 01:22: Urine Color Yellow, Urine Appearance Clear, Urine pH 7.5, Ur Specific [place] 1.015, Urine Protein Negative, Urine Glucose (UA) Negative, Urine Ketones Negative, Urine Blood Negative, Urine Nitrate Negative, Urine Bilirubin Negative, Urine Urobilinogen 0.2, Ur Leukocyte Esterase Negative, Urine RBC None, Urine WBC None, Ur Squamous Epith Cells Occasional, Urine Bacteria Trace 07/04/23 01:30: Sodium 134 L, Potassium 4.2, Chloride 102, Carbon Dioxide 27, Anion Gap 9.2, BUN 9, Creatinine 0.60 L, Estimated Creat Clear 112, Estimated GFR 138, Est GFR ( Amer) 167, Glucose 105 H, Calcium 8.6, Total Bilirubin 0.6, AST 26, ALT 15, Alkaline Phosphatase 101, Total Protein 6.6, Albumin 3.7, Globulin 2.9, Albumin/Globulin Ratio 1.3, Lipase 1587 H 07/04/23 07:46: WBC 5.8 D, RBC 3.96 L, Hgb 11.6 L D, Hct 35.0 L, MCV 88.4, MCH 29.1, MCHC 32.9, RDW 17.2, Plt Count 160, MPV 8.5, Neut % (Auto) 60.7, Lymph % (Auto) 29.5, [place] % (Auto) 6.9, Eos % (Auto) 2.7, Baso % (Auto) 0.3, Neut # (Auto) 3.5, Lymph # (Auto) 1.7, [place] # (Auto) 0.4, Eos # (Auto) 0.2, Baso # (Auto) 0.0, Sodium 133 L, Potassium 4.1, Chloride 107, Carbon Dioxide 27, Anion Gap 3.1 L, BUN 7 L, Creatinine 0.60 L, Estimated Creat Clear 112, Estimated GFR 138, Est GFR ( Amer) 167, Glucose 93, Calcium 7.8 L, Total Bilirubin 0.4, AST 27, ALT 16, Alkaline Phosphatase 82, Total Protein 5.4 L, Albumin 2.8 L D, Globulin 2.6, Albumin/Globulin Ratio 1.1 Assessment and Plan *Assessment and plan (1) SBO (small bowel obstruction): Status: Acute Category: Medical Code(s): K56.609 - Unspecified intestinal obstruction, unspecified as to partial versus complete obstruction Plan: The patient reports a relatively normal bowel movement yesterday. He has not experienced nausea/emesis. His abdomen is not currently distended. Although he may have partial or developing mechanical obstruction, ileus remains a definitive possibility. I have had a long discussion with the patient regarding his profound surgical risk (if mechanical obstruction proven). He clearly states that he would not choose to undergo surgery even if it was an emergency . If the patient develo ps need for surgical intervention and if he (changes his opinion) wishes to pursue surgical intervention...he would absolutely require transfer to a tertiary facility as overall management would be beyond the scope of this facility. (2) Acute pancreatitis: Status: Acute Qualifiers: Pancreatitis type: alcohol induced Acute pancreatitis complication: no infection or necrosis Qualified Code(s): K85.20 - Alcohol induced acute pancreatitis without necrosis or infection Category: Medical Code(s): K85.90 - Acute pancreatitis without necrosis or infection, unspecified (3) Malnutrition compromising bodily function: Status: Acute Category: Medical Code(s): E46 - Unspecified protein-calorie malnutrition (4) Lung cancer metastatic to bone: Status: Acute Category: Medical Code(s): C34.90 - Malignant neoplasm of unspecified part of unspecified bronchus or lung; C79.51 - Secondary malignant neoplasm of bone (5) Pancreatic pseudocyst: Status: Chronic Category: Medical Code(s): K86.3 - Pseudocyst of pancreas
--- NOTE | 2023-07-04 14:04 | DIET.NUTRFU ---
This RD tried to visit upon admit and he had to make urgent phone call and when tried to come back he was asleep. Patient has hx of GJ tube and last admit in Feb he was receiving peptamen at 60ml/hr, this facility does not carry peptamen, tolerated osmolite 1.2 at 60ml/hr to meet nutritional needs. According to Dr. Edgar office visit on 07/02 he was not using the GJ tube and eating orally. Admitted for possible bowel obstruction, sx indicated he does not want surgery. Patient reported to sx that he had lin normal bowel movement yesterday . He states that he is not nauseous and has had no emesis. Lipase elevated at 1587, indicating pancreatitis, IVF started. Will continue to monitor
[2023-07-04] MEDS: SUCRALFATE 1GM TABLET 1 GM PO ×2 (14:53→20:20)
[2023-07-04] MEDS: PANTOPRAZOLE 40MG TABLET 40 MG PO ×2 (14:53→20:20)
[2023-07-04] MEDS: LIPASE/PROTEASE/AMYLASE 1 EACH CAPSULE.DR 2 EACH PO (16:44)
--- NOTE | 2023-07-04 16:55 | PC.NURSE ---
Pt. is aox 4, 98% on RA, up ad marc, 20g L UA with NS @ 100 ml/hr, ct with sbo...
[2023-07-04] MEDS: LORazepam 1MG TABLET 2 MG PO (21:01)
--- NOTE | 2023-07-05 03:09 | PC.NURSE ---
PATIENT DOES NOT WANT SIDE RAILS PADDED. HAS NOT HAD A SEIZURE IN YEARS . NPO ORDERED. THERE HAS BEEN NO N/V/D REPORTED THIS SHIFT. RESTING WELL. SEIZURE PRECAUTIONS/DROPLET PRECAUTIONS.
[2023-07-05 04:00] VITALS: BP 107/66; PULSE 71; RESP 16; TEMP 36.4; O2SAT 97; BMI 19.5
[2023-07-05] MEDS: 0.9 % SODIUM CHLORIDE 1000ML 1,000 ML 100 ML IV (04:17)
[2023-07-05] MEDS: METRONIDAZ/SOD CHL 500 MG/100 ML PIGGYBACK 100 MG IV (05:06)
--- NOTE | 2023-07-05 06:00 | XR_ITS ---
PROCEDURE INFORMATION: Exam: XR Complete Acute Abdomen Series Including Chest Exam date and time: 07/05/2023 5:47 AM Age: 58 years old Clinical indication: Other: Sbo vs ileus TECHNIQUE: Imaging protocol: Radiologic exam. Complete acute abdomen series, including 2 or more views of the abdomen and a single view chest. COMPARISON: CT ABDOMEN PELVIS W CON 07/04/2023 1:42 AM FINDINGS: Lungs: Normal. No consolidation. Pleural spaces: Normal. No pleural effusions. No pneumothorax. Heart/Mediastinum: Normal. No cardiomegaly. Gastrointestinal tract: Normal. No bowel dilation. Intraperitoneal space: Normal. No free air. Bones/joints: Normal. No acute fracture. Soft tissues: Normal. IMPRESSION: No acute findings.
[2023-07-05 08:00] VITALS: BP 106/53; PULSE 61; RESP 16; TEMP 36.8; O2SAT 91
[2023-07-05] MEDS: LIPASE/PROTEASE/AMYLASE 1 EACH CAPSULE.DR 2 EACH PO (08:44)
[2023-07-05] MEDS: SUCRALFATE 1GM TABLET 1 GM PO (08:45)
[2023-07-05] MEDS: PANTOPRAZOLE 40MG TABLET 40 MG PO (08:45)
[2023-07-05] MEDS: levETIRAcetam 500 MG TABLET PO (08:45)
[2023-07-05] MEDS: LORazepam 1MG TABLET 2 MG PO (08:49)
[2023-07-05 09:32] LABS: Basophils % 0.5 % (0.1-2.0); Eosinophils # 0.2 K/mm3 (0.0-0.4); Eosinophils % 3.4 % (0.1-12.0); Hematocrit 37.6 % (42.0-52.0); Hemoglobin 12.1 g/dL (14.1-18.0); Lymphocytes # 1.6 K/mm3 (0.7-4.5); Lymphocytes % 36.1 % (10-50); Mean Corpuscular HGB Conc 32.3 g/dL (31.8-35.4); Mean Corpuscular Hemoglobin 28.5 pg (27.0-31.2); Mean Corpuscular Volume 88.4 fl (80-94); Mean Platelet Volume 9.1 fl (7.4-10.4); Monocytes # 0.3 K/mm3 (0.1-1.0); Monocytes % 6.3 % (1.7-9.3); Neutrophils # 2.4 K/mm3 (1.8-7.8); Neutrophils % 53.7 % (37.0-80.0); Platelet Count 173 K/mm3 (142-424); Red Blood Count 4.25 M/mm3 (4.60-6.20); White Blood Count 4.4 K/mm3 (4.8-10.8)
[2023-07-05 09:56] LABS: Anion Gap 11.4 mEq/L (5-15); Blood Urea Nitrogen 11 mg/dl (9-20); Calcium 8.5 mg/dl (8.4-10.2); Carbon Dioxide 22 mmol/L (22.0-30.0); Chloride 107 mmol/L (98-107); Creatinine Clearance Estimated 95 mL/min (50-200); Estimated Glomerular Filt Rate 116 ml/min (>60); GFR (African American) 140 ML/MIN (>60); Glucose 64 mg/dl (74-100); Potassium 4.4 mmoL/L (3.5-5.1); Sodium 136 mmol/L (136-145)
--- NOTE | 2023-07-05 13:27 | EXP.DC.SUM ---
General Admission date:: 07/04/23 Discharge date: 07/05/23 HPI HPI HPI: This is a 58-year-old gentleman seen in consultation after presenting to the emergency department with increasing abdominal pain. He has an exceptionally complex medical/surgical history as noted below. Evaluation included a CT scan which revealed a fluid-filled dilated proximal and mid small bowel with decompressed distal loops concerning for developing obstruction. Focal transition point not noted. Obstructing mass not noted. The patient states that he continues to have bowel function and had a lin normal bowel movement yesterday . He states that he is not nauseous and has had no emesis. Forwarded from admission H&P: This is a well known 58-year-old male with history of metastatic lung cancer, GJ tube, gastric emptying difficulty 2/2 obstruction, chronic alcohol induced pancreatitis, who presented to the ER with worsening abdominal pain. Patient referred epigastric abdominal pain radiating to his back and shoulders as well as nausea and constipation. He states that this started last night but is acutely worsened this morning. It feels similar to prior pancreatitis flares, but he states that he is feeling a little bit worse. He states he has not had imaging of his belly in a long time. He is on Creon and reports compliance with his medications. No fevers, chills, chest pain, shortness of breath, urinary symptoms, or other concerns. Of note, he is currently on amoxicillin for strep. Admitted for further work up and management. Forwarded from emergency department evaluation: This patient is a 58-year-old male with a history of chronic recurrent pancreatitis, pancreatic pseudocyst, and lung cancer with metastatic to the bone presented to the emergency department for evaluation with concern for epigastric abdominal pain radiating to his back and shoulders as well as nausea and constipation. He states that this started last night but is acutely worsened this morning. It feels similar to prior pancreatitis flares, but he states that he is feeling a little bit worse. He states he has not had imaging of his belly in a long time. He is on Creon and reports compliance with his medications. No fevers, chills, chest pain, shortness of breath, urinary symptoms, or other concerns. Of note, he is currently on amoxicillin for strep. Hospital Course Hospital Course Hospital Course: 58-year-old male with history of metastatic lung cancer, GJ tube, gastric emptying difficulty 2/2 obstruction, chronic alcohol induced pancreatitis, who presented to the ER with worsening abdominal pain. Patient referred epigastric abdominal pain radiating to his back and shoulders as well as nausea and constipation. Presents with acute abdominal pain and increase in lipase from baseline. Discussed case with the ER, concerning for new SBO. Requested admission for further management. Medicine agreed to admit for nutrition eval, pain control, and further management. Problems addressed as follows: SBO - resolved Acute on chronic pancreatitis - improved, no complains of abdominal pain, or nausea with food, he tolerated regular diet Pancreatic pseudocyst Chronic alcoholic pancreatitis -Lipase elevated to 1587 on initial labs. Baseline approximately 700. stable for discharge Chronic malnutrition/severe protein calorie malnutrition Seizure disorder -Continue home Keppra 500 mg twice daily and Ativan 2 mg twice daily Metastatic non-small cell lung cancer, complicates his overall health. We will continue to discuss goals of care given worsening pancreatitis acute on chronic in the setting of metastatic cancer. Full code Lovenox 40 mg subcu daily. on Protonix Exam Data for Last 24 hours Vital signs and Labs for Last 24 Hours: Temp Pulse Resp BP Pulse Ox O2 Del Method 98.3 F 61 16 106/53 L 91 L Room Air 07/05/23 08:00 07/05/23 08:00 07/05/23 08:00 07/05/23 08:00 07/05/23 08:00 07/05/23 11:00 Laboratory Results - last 24 hr 07/05/23 09:01: WBC 4.4 L, RBC 4.25 L, Hgb 12.1 L, Hct 37.6 L, MCV 88.4, MCH 28.5, MCHC 32.3, RDW 17.0, Plt Count 173, MPV 9.1, Neut % (Auto) 53.7, Lymph % (Auto) 36.1, [place] % (Auto) 6.3, Eos % (Auto) 3.4, Baso % (Auto) 0.5, Neut # (Auto) 2.4, Lymph # (Auto) 1.6, [place] # (Auto) 0.3, Eos # (Auto) 0.2, Baso # (Auto) 0.0, Sodium 136, Potassium 4.4, Chloride 107, Carbon Dioxide 22, Anion Gap 11.4, BUN 11 D, Creatinine 0.70, Estimated Creat Clear 95, Estimated GFR 116, Est GFR ( Amer) 140, Glucose 64 L, Calcium 8.5 I & O for Last 24 hours: Intake & Output 07/02/23 07/03/23 07/04/23 07/05/23 23:59 23:59 23:59 23:59 Intake Total 1633 / 1633 Output Total 402 / 802 1651 / 1651 Balance -402 / 371 -18 / -18 Weight 58.96 kg 58.649 kg Constitutional Constitutional: no acute distress *Routine HEENT Exam Head: Present normocephalic Eye: Present EOMI and PERRL ENT: Present mucous membranes moist *Routine Neck Exam Neck: Present supple; Absent lymphadenopathy *Routine Respiratory Exam Respiratory: Present CTA bilaterally *Routine Cardiovascular Exam Cardiovascular: Present RRR *Routine Abdominal Exam Abdominal: Present soft and normoactive bowel sounds; Absent tenderness *Routine Extremities Exam Extremities: Absent cyanosis, clubbing or edema *Routine Skin Exam Skin: Present warm; Absent rash *Routine Neurological Exam Neurological: Present alert and oriented X3 Results Data Completed and Pending Labs on day of discharge: Labs from last 24 hours 07/05/23 09:01 WBC 4.4 L RBC 4.25 L Hgb 12.1 L Hct 37.6 L MCV 88.4 MCH 28.5 MCHC 32.3 RDW 17.0 Plt Count 173 MPV 9.1 Neut % (Auto) 53.7 Lymph % (Auto) 36.1 [place] % (Auto) 6.3 Eos % (Auto) 3.4 Baso % (Auto) 0.5 Neut # (Auto) 2.4 Lymph # (Auto) 1.6 [place] # (Auto) 0.3 Eos # (Auto) 0.2 Baso # (Auto) 0.0 Sodium 136 Potassium 4.4 Chloride 107 Carbon Dioxide 22 Anion Gap 11.4 BUN 11 D Creatinine 0.70 Estimated Creat Clear 95 Estimated GFR 116 Est GFR ( Amer) 140 Glucose 64 L Calcium 8.5 DS: Diagnosis Discharge Diagnosis (1) SBO (small bowel obstruction): Status: Acute Code(s): K56.609 - Unspecified intestinal obstruction, unspecified as to partial versus complete obstruction (2) Acute pancreatitis: Status: Acute Code(s): K85.90 - Acute pancreatitis without necrosis or infection, unspecified Qualifiers: Acute pancreatitis complication: no infection or necrosis Pancreatitis type: alcohol induced Qualified Code(s): K85.20 - Alcohol induced acute pancreatitis without necrosis or infection (3) Malnutrition compromising bodily function: Status: Acute Code(s): E46 - Unspecified protein-calorie malnutrition (4) Lung cancer metastatic to bone: Status: Acute Code(s): C34.90 - Malignant neoplasm of unspecified part of unspecified bronchus or lung; C79.51 - Secondary malignant neoplasm of bone (5) Pancreatic pseudocyst: Status: Chronic Code(s): K86.3 - Pseudocyst of pancreas Meds Home Medications and Allergies Home Medications Medication Instructions Recorded Confirmed Type pantoprazole 40 mg tablet,delayed 40 mg PO BID Acid reflux #180 tabs 11/15/22 07/04/23 Rx release sucralfate 1 gram tablet (Carafate) 1 g PO BID Ulcers #180 tabs 11/15/22 07/04/23 Rx levetiracetam 500 mg tablet 500 mg PO BID Seizures 02/23/23 07/04/23 History hrobgv-xafxrave-hladxmg 2 cap PO TIDWMEAL Pancreatic 02/23/23 07/04/23 History 36,000-114,000-180,000 unit insufficiency capsule,delay rel lorazepam 2 mg tablet 2 mg PO BIDP PRN Anxiety #60 tabs 05/01/23 07/04/23 Rx albuterol sulfate 90 mcg/actuation 1 inh inhalation Q4HP PRN 06/02/23 07/04/23 Rx breath activated powder Shortness Of Breath #1 ea inhaler,sensor oxycodone 10 mg tablet 10 mg PO BIDP PRN Moderate Pain 07/04/23 07/04/23 History (Scale Score 5-6) promethazine 25 mg tablet 25 mg PO TIDP PRN nausea and 07/04/23 07/04/23 History vomiting levetiracetam 500 mg tablet 500 mg PO BID 14 days #28 tabs 07/05/23 Rx (Keppra) nicotine 21 mg/24 hr daily 21 mg transdermal DAILYP PRN 07/05/23 Rx transdermal patch Nicotine Cravings 14 days #14 ea New Prescriptions to Start Prescriptions: levetiracetam [Keppra] Jensen,Irfan nicotine Jensen,Irfan Allergies Allergy/AdvReac Type Severity Reaction Status Date / Time cephalexin [From Keflex] Allergy Mild Hives Verified 07/02/23 13:27 sulfamethoxazole Allergy Unknown Verified 07/02/23 13:27 [From BACTRIM] trimethoprim [From BACTRIM] Allergy Unknown Verified 07/02/23 13:27 Discharge Plan Disposition Patient Disposition: Home, Self-Care Condition: Good Follow up Plan Follow up with: Richard Edgar MD [Primary Care Provider] - 2 weeks Vin Trammell MD [Staff Physician] - 1 week Prescriptions/Medication Reconciliation: New levetiracetam [Keppra] 500 mg Tablet 500 mg PO BID 14 Days Qty: 28 0RF nicotine 21 mg/24 hr Patch 24 Hour 21 mg transdermal DAILYP PRN (Reason: Nicotine Cravings) 14 Days Qty: 14 0RF Continued pantoprazole 40 mg tablet,delayed release (DR/EC) 40 mg PO BID Qty: 180 10RF sucralfate [Carafate] 1 gram tablet 1 g PO BID Qty: 180 4RF lorazepam 2 mg tablet 2 mg PO BIDP PRN (Reason: Anxiety) Qty: 60 3RF albuterol sulfate 90 mcg/actuation aero powdr breath act w/sensor 1 inh IH Q4HP PRN (Reason: Shortness Of Breath) Qty: 1 0RF levetiracetam 500 mg tablet 500 mg PO BID ejeaur-pnmiblos-aazxbza 36,000-114,000- 180,000 unit capsule,delayed release(DR/EC) 2 cap PO TIDWMEAL promethazine 25 mg tablet 25 mg PO TIDP PRN (Reason: nausea and vomiting) oxycodone 10 mg tablet 10 mg PO BIDP PRN (Reason: Moderate Pain (Scale Score 5-6)) Problem Reconciliation Problems Reviewed?: Yes Patient Discharge Instructions ACTIVITY: Ambulate as tolerated DIET: advance to your usual diet Patient Instructions: DI for Pancreatitis Providers Primary Care Provider: Richard Edgar Admit Provider: Domonique Styles Attending Provider: Domonique Styles
--- NOTE | 2023-07-07 13:09 | CARE MANAGER ---
Contacted patient related to hospital discharge. Patient states he got the nicotine patches but he already had Keppra. He states that he isn't following up with Dr. Trammell since he isn't having surgery and he will see Dr. Edgar when he is sick. Encouraged follow up twice with Dr. Edgar within 1-2 weeks, but he denies that he is going to do it. He denies any questions or concerns at this time.NANNETTE Soares
== END 2023-07-05 14:03 | disposition home or self-care (01) ==
LOC: ER 01:00 → 2ND 08:10
PROVIDERS: Nurse Practitioner Family; Admitting Provider Internal Medicine; Emergency Provider Emergency Medicine; PCP Family Medicine; Visit Provider Internal Medicine
DX: K85.20 Alcohol induced acute pancreatitis without necrosis or infection (principal); E46 Unspecified protein-calorie malnutrition; Z79.899 Other long term (current) drug therapy; C34.90 Malignant neoplasm of unspecified part of unspecified bronchus or lung; C79.51 Secondary malignant neoplasm of bone; K86.3 Pseudocyst of pancreas; F17.210 Nicotine dependence, cigarettes, uncomplicated; Z68.1 Body mass index [BMI] 19.9 or less, adult; K31.1 Adult hypertrophic pyloric stenosis; Z93.1 Gastrostomy status; E43 Unspecified severe protein-calorie malnutrition; K56.609 Unspecified intestinal obstruction, unspecified as to partial versus complete obstruction
CPT/HCPCS: 36415; 74021; 74177; 80048; 80053; 81001; 83690; 85025; 99285; G0378; J2405; Q9967

== ENCOUNTER 2023-09-03 14:42 | Emergency (ER) | payer MEDICAID, SELFPAY ==
[2023-09-03] VITALS (7 sets, daily range): BP systolic 98–122; BP diastolic 65–76; PULSE 90–111; RESP 18–20; TEMP 36.8–37; O2SAT 97–100; BMI 18.2
--- NOTE | 2023-09-03 15:10 | PC.NURSE ---
DR VILLALTA AT BEDSIDE
--- NOTE | 2023-09-03 15:11 | PC.NURSE ---
PT PROVIDED WARM BLANKET
[2023-09-03] MEDS: MORPHINE 4MG/ML SYRINGE 4 MG IV (15:18)
[2023-09-03] MEDS: ONDANSETRON 4MG/2ML VIAL 4 MG IV (15:18)
[2023-09-03] MEDS: LACTATED RINGERS 1000ML 1,000 ML 999 ML IV (15:18)
[2023-09-03 15:19] LABS: Basophils % 0.5 % (0.1-2.0); Eosinophils # 0.2 K/mm3 (0.0-0.4); Eosinophils % 1.9 % (0.1-12.0); Hemoglobin 14.9 g/dL (14.1-18.0); Lymphocytes # 0.8 K/mm3 (0.7-4.5); Lymphocytes % 9.9 % (10-50); Mean Corpuscular HGB Conc 33.8 g/dL (31.8-35.4); Mean Corpuscular Volume 88.9 fl (80-94); Mean Platelet Volume 7.5 fl (7.4-10.4); Monocytes # 0.4 K/mm3 (0.1-1.0); Monocytes % 4.4 % (1.7-9.3); Neutrophils # 6.6 K/mm3 (1.8-7.8); Neutrophils % 83.3 % (37.0-80.0); Platelet Count 238 K/mm3 (142-424); Red Blood Count 4.95 M/mm3 (4.60-6.20); Red Cell Distribution Width 16.3 % (11.5-17.5); White Blood Count 7.9 K/mm3 (4.8-10.8)
[2023-09-03 15:35] LABS: Chloride 96 mmol/L (98-107)
[2023-09-03 15:36] LABS: Potassium 5.3 mmoL/L (3.5-5.1); Sodium 129 mmol/L (136-145)
--- NOTE | 2023-09-03 15:37 | HMH.EDGENADL ---
Discharge Plan Disposition Patient Disposition: Home, Self-Care Prescriptions Prescriptions: New ondansetron 4 mg tablet,disintegrating 4 mg PO Q6H PRN (Reason: nausea and vomiting) 5 Days Qty: 20 0RF No Action sucralfate [Carafate] 1 gram tablet 1 g PO BID Qty: 180 4RF oxycodone 10 mg tablet 10 mg PO BIDP PRN (Reason: Moderate Pain (Scale Score 5-6)) Qty: 60 0RF Rx Instructions: for pain arising from pancreatitis fluticasone propionate [Flonase Allergy Relief] 50 mcg/actuation spray,suspension 2 spray intranasal BID Qty: 16 4RF Rx Instructions: administer into each nostril albuterol sulfate 90 mcg/actuation aero powdr breath act w/sensor 1 inh IH Q4HP PRN (Reason: Shortness Of Breath) Qty: 1 0RF lorazepam 2 mg tablet 2 mg PO BIDP PRN (Reason: Anxiety) Qty: 60 3RF [id number]-ezqyccp 36,000-114,000- 180,000 unit capsule,delayed release(DR/EC) 2 cap PO TIDWMEAL promethazine 25 mg tablet 25 mg PO TIDP PRN (Reason: nausea and vomiting) levetiracetam [Keppra] 500 mg Tablet 500 mg PO BID 14 Days Qty: 28 0RF Referrals Follow up/Referrals: Richard Edgar MD [Primary Care Provider] - See instructions Activity Restrictions/Add. Instructions Additional Instructions/Restrictions: No emergent medical condition identified today please continue follow-up with your executive candidate developer and your primary care doctor for chronic pain control Clinical Impressions Clinical Impression: Chronic pancreatitis, Cachexia, Chronic pain Instructions Patient Instructions: DI for Acute Abdominal Pain Discharge ED Provider: Ja Pardo General Adult HPI General Chief complaint: Abdominal Pain Stated complaint: vomiting, diarrea, pain in center abd, dehydrated Time Seen by Provider: 09/03/23 15:02 Mode of Arrival: Ambulatory Source of Information: Patient Limitations: No Limitations Description of Symptoms (Recalled from ER Triage Doc. by RN): pt to ed c/o abd pain , v/d x3 days. pt states a hx of pancreatitis. History of Present Illness HPI narrative: Patient is a 58-year-old male with a history of chronic alcoholic pancreatitis with pseudocyst cirrhosis seizure COPD duodenal stricture with J-tube and metastatic lung cancer that is been in remission since 2017 presenting to here tomorrow for worsening abdominal pain. States that he ran out of his oxycodone yesterday. This is most likely what is causing his pain. However he has been drinking again over the last 3 days he has had a sixpack of beer daily over the last 3 days. Related Data Home Medications Medication Instructions Recorded Confirmed hefjmf-kxsuffaq-sdalytu 2 cap PO TIDWMEAL Pancreatic 02/23/23 08/12/23 36,000-114,000-180,000 unit insufficiency capsule,delay rel promethazine 25 mg tablet 25 mg PO TIDP PRN nausea and 07/04/23 08/12/23 vomiting Previous Rx's Medication Instructions Recorded sucralfate 1 gram tablet (Carafate) 1 g PO BID Ulcers #180 tabs 11/15/22 albuterol sulfate 90 mcg/actuation 1 inh inhalation Q4HP PRN 06/02/23 breath activated powder Shortness Of Breath #1 ea inhaler,sensor levetiracetam 500 mg tablet 500 mg PO BID 14 days #28 tabs 07/05/23 (Keppra) oxycodone 10 mg tablet 10 mg PO BIDP PRN Moderate Pain 08/06/23 (Scale Score 5-6) #60 tabs fluticasone propionate 50 2 spray intranasal BID allergy 08/12/23 mcg/actuation nasal symptoms #16 grams spray,suspension (Flonase Allergy Relief) lorazepam 2 mg tablet 2 mg PO BIDP PRN Anxiety #60 tabs 08/25/23 ondansetron 4 mg disintegrating 4 mg PO Q6H PRN nausea and 09/03/23 tablet vomiting 5 days #20 tabs Allergies Allergy/AdvReac Type Severity Reaction Status Date / Time cephalexin [From Keflex] Allergy Mild Hives Verified 08/12/23 11:31 sulfamethoxazole Allergy Unknown Verified 08/12/23 11:31 [From BACTRIM] trimethoprim [From BACTRIM] Allergy Unknown Verified 08/12/23 11:31 [facility] Disclaimer: The information contained in this section may have been updated after the patient was seen, as this information can be updated by other users. Medical History (Updated 09/03/23 @ 15:14 by Ja Pardo MD) Excessive cerumen in left ear canal SBO (small bowel obstruction) Acute pancreatitis Cachexia Acute on chronic pancreatitis Gastrostomy tube dependent Metastatic non-small cell lung cancer Severe protein-calorie malnutrition Lung cancer metastatic to bone Abdominal pain Pancreatic pseudocyst Abdominal pain Bone marrow disorder Cirrhosis COPD (chronic obstructive pulmonary disease) GERD (gastroesophageal reflux disease) Gastric outlet obstruction History of lung cancer Pancreatic pseudocyst Alcoholic pancreatitis Chronic alcohol abuse Anxiety History of lung cancer Alcohol abuse Pancreatitis, acute Gallstone pancreatitis Pancreatitis Hypokalemia Surgical History Hx of cholecystectomy Family History Other Cancer of lung Emphysema lung Social History Smoking Status: Current every day smoker tobacco type: cigarettes packs per day: 3 alcohol intake: current substance use type: denies use current occupational status: unemployed Travel in the last 8 weeks: None household members: family housing: house current occupational exposures/hazards: No caffeine: No ROS Obtained: Yes All systems reviewed & no additional complaints except as documented Physical Exam General General appearance: cachectic Respiratory Respiratory exam: Present normal lung sounds bilaterally Cardiovascular Cardiovascular exam: Present regular rate and normal rhythm Abdominal Exam Abdominal exam: Present other (Patient is cachectic has a feeding tube is in place without any erythema or significant tenderness surrounding this his abdomen is otherwise soft with no significant tenderness rebound or guarding) Neurological Exam Neurological exam: Present alert and oriented X3 Medical Decision Making [place] Inquiry Pt receiving controlled substance: No Vital Signs: 09/03/23 14:50 09/03/23 15:01 09/03/23 15:30 Temperature 98.3 F Temperature Source Oral Pulse Rate 110 H 95 H Pulse Rate [Left Radial] 111 H Respiratory Rate 20 Blood Pressure 104/68 L 122/75 Blood Pressure [Right Arm] 99/65 L Blood Pressure Mean [Right Arm] 76 02 Sat by Pulse Oximetry 98 98 97 Oxygen Delivery Method Room Air Room Air 09/03/23 16:00 09/03/23 16:30 09/03/23 17:01 Temperature Temperature Source Pulse Rate 92 H 90 92 H Pulse Rate [Left Radial] Respiratory Rate Blood Pressure 122/76 120/69 98/65 L Blood Pressure [Right Arm] Blood Pressure Mean [Right Arm] 02 Sat by Pulse Oximetry 100 99 100 Oxygen Delivery Method Room Air Lab Data Lab results reviewed: Yes I reviewed the patient's lab results. Lab Results 09/03/23 15:10: WBC 7.9, RBC 4.95, Hgb 14.9, Hct 44.0, MCV 88.9, MCH 30.0, MCHC 33.8, RDW 16.3, Plt Count 238, MPV 7.5, Neut % (Auto) 83.3 H, Lymph % (Auto) 9.9 L, [place] % (Auto) 4.4, Eos % (Auto) 1.9, Baso % (Auto) 0.5, Neut # (Auto) 6.6, Lymph # (Auto) 0.8, [place] # (Auto) 0.4, Eos # (Auto) 0.2, Baso # (Auto) 0.0, Sodium 129 L, Potassium 5.3 H, Chloride 96 L, Carbon Dioxide 19 L, Anion Gap 19.3 H, BUN 12, Creatinine 0.60 L, Estimated Creat Clear 103, Estimated GFR 138, Est GFR ( Amer) 167, Glucose 66 L, Calcium 9.6, Phosphorus 4.6 H, Magnesium 2.3, Total Bilirubin 0.8, AST 48, ALT 27, Alkaline Phosphatase 189 H, Total Protein 7.0 D, Albumin 4.2, Globulin 2.8, Albumin/Globulin Ratio 1.5, Lipase 188 09/03/23 15:10 09/03/23 15:10 Orders (Tests/Meds): ED MEDICATIONS Discontinued Medications Generic Name Dose Route Start Last Admin Trade Name Freq PRN Reason Stop Dose Admin Lactated Ringer's 1,000 mls @ 999 mls/hr 09/03/23 15:15 09/03/23 15:18 Lactated Ringer's 1000 Ml Bag IV 09/03/23 16:15 999 mls/hr .Q1H1M BUZZ Administration Morphine Sulfate 4 mg 09/03/23 15:12 09/03/23 15:18 Morphine 4mg/Ml Syringe IV 09/03/23 15:13 4 mg ONCE ONE Administration Ondansetron HCl 4 mg 09/03/23 15:12 09/03/23 15:18 Ondansetron 4mg/2ml Vial IV 09/03/23 15:13 4 mg ONCE ONE Administration ORDERS Category Date Time Status CBC w/Auto Diff [Complete Blood Count Auto Diff] Stat Lab 09/03/23 15:10 Completed CMP [Comprehensive Metabolic Panel] Stat Lab 09/03/23 15:10 Completed Lipase Stat Lab 09/03/23 15:10 Completed Magnesium Stat Lab 09/03/23 15:10 Completed Phosphorous Stat Lab 09/03/23 15:10 Completed Medical Decision Narrative: 58-year-old with above history. He has chronic pain secondary to chronic alcohol use and pancreatitis. His abdominal exam is benign right now not concerned about any type of significant worsening of his condition. He ran out of his oxycodone yesterday most likely the exacerbation of his pain. States he has been taking it more than normal recently. No fevers I am not concerned about a necrotizing component of this or other intra-abdominal pathology that would require surgical intervention. IV fluids pain medicine have been administered will hold off on CT scan right now and perform labs and reassess. Reassessment 5:36 PM patient sleeping comfortably in the ED pain is adequately controlled serial abdominal exams are benign labs unremarkable he was discharged in stable condition with advised to follow-up with his primary care doctor and executive candidate developer for chronic pain control Critical Care Critical Care Time Critical Care Time: No
[2023-09-03 15:38] LABS: Alanine Aminotransferase 27 U/L (12-78); Albumin Level 4.2 g/dl (3.5-5.0); Albumin/Globulin Ratio 1.5 (1.1-1.8); Alkaline Phosphatase 189 U/L (38-126); Anion Gap 19.3 mEq/L (5-15); Aspartate Amino Transferase 48 U/L (17-59); Bilirubin,Total 0.8 mg/dl (0.2-1.3); Blood Urea Nitrogen 12 mg/dl (9-20); Calcium 9.6 mg/dl (8.4-10.2); Carbon Dioxide 19 mmol/L (22.0-30.0); Creatinine Clearance Estimated 103 mL/min (50-200); Estimated Glomerular Filt Rate 138 ml/min (>60); GFR (African American) 167 ML/MIN (>60); Globulin 2.8 g/dL (1.3-3.2); Glucose 66 mg/dl (74-100); Lipase 188 U/L (23-300); Phosphorous 4.6 mg/dl (2.5-4.5)
[2023-09-03 15:39] LABS: Magnesium 2.3 mg/dl (1.6-2.3)
--- NOTE | 2023-09-03 17:29 | PC.NURSE ---
DR VILLALTA AT BEDSIDE
== END 2023-09-03 17:50 | disposition home or self-care (01) ==
PROVIDERS: Emergency Provider Student in an Organized Health Care Education/Training Program; PCP Family Medicine
DX: K86.0 Alcohol-induced chronic pancreatitis (principal); R10.9 Unspecified abdominal pain; R64 Cachexia; R11.2 Nausea with vomiting, unspecified; E87.1 Hypo-osmolality and hyponatremia; G89.29 Other chronic pain; F10.188 Alcohol abuse with other alcohol-induced disorder; F17.210 Nicotine dependence, cigarettes, uncomplicated; J44.9 Chronic obstructive pulmonary disease, unspecified; K21.9 Gastro-esophageal reflux disease without esophagitis
CPT/HCPCS: 80053; 83690; 83735; 84100; 85025; 96361; 96374; 96375; 99285; J2405

== ENCOUNTER 2023-09-24 12:14 | Outpatient (POV) | payer MEDICAID, SELFPAY | END 2023-09-24 23:59 | disposition home or self-care (01) | LOC: SC 12:14 | PROVIDERS: Visit Provider Specialist/Technologist | DX: Z00.00 Encounter for general adult medical examination without abnormal findings (principal) ==

== ENCOUNTER 2023-10-07 05:28 | Emergency (ER) | payer MEDICAID, SELFPAY ==
[2023-10-07 05:28] VITALS: BP 106/70; PULSE 104; RESP 16; TEMP 36.4; O2SAT 98; BMI 18.2
--- NOTE | 2023-10-07 05:32 | CT_ITS ---
FINAL REPORT TECHNIQUE: After the administration of intravenous contrast, axial images were obtained through the abdomen and pelvis by computed tomography. The study was performed with techniques to keep radiation dose as low as reasonably achievable, (ALARA). Individual dose reduction techniques using automated exposure control or adjustment of mA and/or kV according to the patient's size were employed. CLINICAL HISTORY: hx cancer, having vomiting COMPARISON: 07/04/2023 FINDINGS: Abdomen: The lung bases are clear. The liver parenchyma is homogeneous. The gallbladder is absent. There are calcified granulomas in the spleen. Streak artifact is noted from surgical clips in the upper abdomen. There are dense vascular calcifications throughout the pancreas consistent with chronic pancreatitis. There is a new cystic structure measuring about 2.0 cm in the tail of the pancreas best seen on image 30 of series 3, probably related to a small pseudocyst. Previously noted localized fluid collections along the medial margins of the anterior and posterior portions of the liver have resolved. There is soft tissue stranding surrounding the right adrenal gland at the location of the previously noted fluid collection. Benign cysts are noted in the left kidney. There is a relative lack of intra-abdominal fat limiting sensitivity of this exam. There is a large amount of stool in the colon. Pelvis: The appendix is not identified. The urinary bladder is moderately distended. There is no free fluid or adenopathy. IMPRESSION: Interval resolution of fluid collections adjacent to the liver may be related to resolved pseudocyst. New presumed pseudocyst in the tail of the pancreas. Changes of chronic pancreatitis. Reviewed, Interpreted and Dictated by Glenn Jones MD Transcribed by Eliana Ocampo Authenticated and [facility]
--- NOTE | 2023-10-07 05:32 | ECG_ITS ---
APPROVED REPORT Exam: Resting ECG HR:78 bpm ECG Measurements Heart Rate 78 AXES VA 167 P 78 QRSd 88 QRS 81 QT 403 T 74 QTc 436 Conclusion SINUS RHYTHM NORMAL ECG INTERPRETATION BASED ON A DEFAULT AGE OF 40 YEARS No STEMI Electronically signed by : PEBBLES NASH, 10/08/2023 06:49:49
--- NOTE | 2023-10-07 05:41 | HMH.EDGENADL ---
Discharge Plan Disposition Patient Disposition: Xfer Short-Term Hosp Prescriptions Prescriptions: No Action sucralfate [Carafate] 1 gram tablet 1 g PO BID Qty: 180 4RF fluticasone propionate [Flonase Allergy Relief] 50 mcg/actuation spray,suspension 2 spray intranasal BID Qty: 16 4RF Rx Instructions: administer into each nostril albuterol sulfate 90 mcg/actuation aero powdr breath act w/sensor 1 inh IH Q4HP PRN (Reason: Shortness Of Breath) Qty: 1 0RF lorazepam 2 mg tablet 2 mg PO BIDP PRN (Reason: Anxiety) Qty: 60 3RF oxycodone 10 mg tablet 10 mg PO BIDP PRN (Reason: Moderate Pain (Scale Score 5-6)) Qty: 60 0RF Rx Instructions: for pain arising from pancreatitis okay to fill early [id number] 36,000-114,000- 180,000 unit capsule,delayed release(DR/EC) 2 cap PO TIDWMEAL promethazine 25 mg tablet 25 mg PO TIDP PRN (Reason: nausea and vomiting) levetiracetam [Keppra] 500 mg Tablet 500 mg PO BID 14 Days Qty: 28 0RF ondansetron 4 mg tablet,disintegrating 4 mg PO Q6H PRN (Reason: nausea and vomiting) 5 Days Qty: 20 0RF Referrals Follow up/Referrals: Provider,Referral, [Primary Care Provider] - See instructions Clinical Impressions Clinical Impression: Pancreatic pseudocyst, Nausea & vomiting, Acute hyponatremia, Hypochloremia, Acute on chronic pancreatitis Stand Alone Forms Stand Alone Forms: Transfer Record - ED Instructions Patient Instructions: DI for Diarrhea and Traveler's Diarrhea -- Adult, DI for Nausea -- Adult Discharge ED Provider: Robert Santana General Adult HPI <Yovani Britt MD - Last Filed: 10/07/23 06:29> General Chief complaint: Nausea/Vomiting/Diarrhea Stated complaint: Vomiting Time Seen by Provider: 10/07/23 05:41 Mode of Arrival: EMS Source of Information: Patient Limitations: No Limitations Description of Symptoms (Recalled from ER Triage Doc. by RN): pt c/o n/v x 1.5 days and feels like he going to have a seizure. pt states has a g tube but unable to used due to being clog. History of Present Illness HPI narrative: 58-year-old male with history of seizures, previous metastatic lung cancer, G-tube that has been malfunctioning for the last month male presents to the ER with concerns of nausea and vomiting for the last 1.5 days. Patient is concerned he could have a seizure due to dehydration and vomiting. Patient states he has been taking his medications, but he has had emesis after he took his medications including his seizure medication. He is unsure if he actually kept the seizure meds down. Patient does not describe any bilious or bloody emesis. He has not had any diarrhea, last bowel movement was yesterday. Patient states he has had episodes of sweats and chills. He has not been able to tolerate oral intake well in the last day and a half. Patient states he has a G-tube but has been unable to use it for more than 1.5 months due to it being clogged. He is scheduled for removal. Patient reports no known active cancer. Related Data Home Medications Medication Instructions Recorded Confirmed [id number] 2 cap PO TIDWMEAL Pancreatic 02/23/23 09/22/23 36,000-114,000-180,000 unit insufficiency capsule,delay rel promethazine 25 mg tablet 25 mg PO TIDP PRN nausea and 07/04/23 09/22/23 vomiting Previous Rx's Medication Instructions Recorded sucralfate 1 gram tablet (Carafate) 1 g PO BID Ulcers #180 tabs 11/15/22 albuterol sulfate 90 mcg/actuation 1 inh inhalation Q4HP PRN 06/02/23 breath activated powder Shortness Of Breath #1 ea inhaler,sensor levetiracetam 500 mg tablet 500 mg PO BID 14 days #28 tabs 07/05/23 (Keppra) fluticasone propionate 50 2 spray intranasal BID allergy 08/12/23 mcg/actuation nasal symptoms #16 grams spray,suspension (Flonase Allergy Relief) lorazepam 2 mg tablet 2 mg PO BIDP PRN Anxiety #60 tabs 08/25/23 ondansetron 4 mg disintegrating 4 mg PO Q6H PRN nausea and 09/03/23 tablet vomiting 5 days #20 tabs oxycodone 10 mg tablet 10 mg PO BIDP PRN Moderate Pain 09/04/23 (Scale Score 5-6) #60 tabs Allergies Allergy/AdvReac Type Severity Reaction Status Date / Time cephalexin [From Keflex] Allergy Mild Hives Verified 09/22/23 13:32 sulfamethoxazole Allergy Unknown Verified 09/22/23 13:32 [From BACTRIM] trimethoprim [From BACTRIM] Allergy Unknown Verified 09/22/23 13:32 PFSH <Yovani Britt MD - Last Filed: 10/07/23 06:29> [facility] Disclaimer: The information contained in this section may have been updated after the patient was seen, as this information can be updated by other users. Medical History Excessive cerumen in left ear canal SBO (small bowel obstruction) Acute pancreatitis Cachexia Acute on chronic pancreatitis Gastrostomy tube dependent Metastatic non-small cell lung cancer Severe protein-calorie malnutrition Lung cancer metastatic to bone Abdominal pain Pancreatic pseudocyst Abdominal pain Bone marrow disorder Cirrhosis COPD (chronic obstructive pulmonary disease) GERD (gastroesophageal reflux disease) Gastric outlet obstruction History of lung cancer Pancreatic pseudocyst Alcoholic pancreatitis Chronic alcohol abuse Anxiety History of lung cancer Alcohol abuse Pancreatitis, acute Gallstone pancreatitis will refer to surgery Pancreatitis Hypokalemia Surgical History Hx of cholecystectomy Family History Other Cancer of lung Emphysema lung Social History Smoking Status: Current every day smoker tobacco type: cigarettes packs per day: 3 alcohol intake: current alcohol intake frequency: a few times a week substance use type: denies use current occupational status: unemployed Travel in the last 8 weeks: None household members: family housing: house current occupational exposures/hazards: No caffeine: No <Yovani Britt MD - Last Filed: 10/07/23 06:29> ROS Obtained: Yes All systems reviewed & no additional complaints except as documented Constitutional Constitutional: Reports chills, Denies fever(s), Denies headache(s) and Denies weakness Eyes Eyes: Denies change in vision ENT Ears, Nose, Mouth, and Throat: Denies dizziness, Denies headache(s), Denies nasal congestion and Denies sore throat Cardiovascular Cardiovascular: Denies chest pain, Denies dyspnea and Denies leg edema Respiratory Respiratory: Denies cough and Denies dyspnea Gastrointestinal Gastrointestingal: Reports nausea and vomiting; Denies constipation or diarrhea Genitourinary Male Genitourinary: Denies difficulty urinating Musculoskeletal Musculoskeletal: Denies arthralgias, Denies myalgias, Denies numbness and Denies tingling Integumentary/Breasts Skin/Breast: Denies change in pigmentation Neurologic Neurologic: Denies dizziness, Denies headache(s), Denies numbness, Denies tingling and Denies weakness Physical Exam <Yovani Britt MD - Last Filed: 10/07/23 06:29> General General appearance: alert and in no apparent distress Head Head exam: atraumatic and normocephalic Eye Eye exam: Present PERRL and EOMI ENT ENT exam: Present mucous membranes moist Neck Neck exam: Present normal inspection and full ROM Chest Chest inspection: Present symmetric chest wall rise Respiratory Respiratory exam: Present normal lung sounds bilaterally; Absent respiratory distress, wheezes or stridor Cardiovascular Cardiovascular exam: Present regular rate and normal rhythm Abdominal Exam Abdominal exam: Present soft; Absent distention, tenderness, guarding or rebound Comment: G-tube site clean and dry, no findings of infection. G-tube has small amount of dark material in it, patient states he has not had any discharge from it. He denies bloody emesis or melena. Extremities Exam Extremities exam: Present full ROM Neurological Exam Neurological exam: Present alert and oriented X3; Absent motor sensory deficit Psychiatric Psychiatric exam: Present normal affect and normal mood Skin Skin exam: Present warm and dry Medical Decision Making <Yovani Britt MD - Last Filed: 10/07/23 06:29> Medical Records Medical records reviewed: Yes I reviewed the patient's medical records. MR Comment: Most recent note from oncology was from 2020. Demonstrates patient had negative PET scan at that time, no findings of active cancer. It does document he has a history of alcoholism. [place] Inquiry Pt receiving controlled substance: No Vital Signs: 10/07/23 05:28 Temperature 97.5 F L Temperature Source Oral Pulse Rate [Right] 104 H Respiratory Rate 16 Blood Pressure [Right Arm] 106/70 L Blood Pressure Mean [Right Arm] 82 02 Sat by Pulse Oximetry 98 Lab Data Lab Results 10/07/23 05:45: WBC 8.7, RBC 4.89, Hgb 16.8, Hct 43.4, MCV 88.7, MCH 34.4 H, MCHC 38.8 H, RDW 17.6 H, Plt Count 195, MPV 7.9, Neut % (Auto) 81.4 H, Lymph % (Auto) 11.6, [place] % (Auto) 5.2, Eos % (Auto) 1.1, Baso % (Auto) 0.6, Neut # (Auto) 7.1, Lymph # (Auto) 1.0, [place] # (Auto) 0.5, Eos # (Auto) 0.1, Baso # (Auto) 0.1, Sodium 123 L, Potassium 3.9, Chloride 71 L, Carbon Dioxide 30, Anion Gap 25.9 H, BUN 13, Creatinine 1.00, Estimated Creat Clear 62, Estimated GFR 77, Est GFR ( Amer) 93, Glucose 92, Calcium 10.3 H, Total Bilirubin 0.9, AST 47, ALT 40, Alkaline Phosphatase 249 H, Troponin I < 0.01, Total Protein 8.6 H, Albumin 5.2 H, Globulin 3.4 H, Albumin/Globulin Ratio 1.5, Lipase 312 H 10/07/23 05:55: Lactate 3.5 H 10/07/23 05:45 10/07/23 05:45 Orders (Tests/Meds): ED MEDICATIONS Generic Name Dose Route Start Last Admin Trade Name Freq PRN Reason Stop Dose Admin Levofloxacin/Dextrose 250 mg in 50 mls @ 100 mls/hr 10/07/23 08:30 Levaquin 250mg/50ml Premix IV 10/17/23 08:29 Q24H BUZZ Metronidazole 500 mg in 100 mls @ 100 mls/hr 10/07/23 08:21 Flagyl 500mg/100ml Ivpb IV 10/07/23 09:20 ONCE ONE Discontinued Medications Generic Name Dose Route Start Last Admin Trade Name Freq PRN Reason Stop Dose Admin Lactated Ringer's 1,000 mls @ 2,000 mls/hr 10/07/23 05:32 10/07/23 05:51 Lactated Ringer's 1000 Ml Bag IV 10/07/23 06:01 Not Given .Q30M ONE Lactated Ringer's 2,000 mls @ 999 mls/hr 10/07/23 05:49 10/07/23 05:58 Lactated Ringer's 1000 Ml Bag IV 10/07/23 07:49 999 mls/hr .Q2H1M ONE Administration Iopamidol 75 ml 10/07/23 07:22 10/07/23 07:23 Iopamidol-370 (76%);100ml Bottle IV 10/07/23 07:23 75 ml ONCE ONE Administration Ondansetron HCl 4 mg 10/07/23 05:33 10/07/23 05:59 Ondansetron 4mg/2ml Vial IV 10/07/23 05:34 4 mg ONCE ONE Administration Sodium Chloride 10 ml 10/07/23 07:22 10/07/23 07:22 Sodium Chloride 0.9% 10ml Syr (Rad Only) IV 10/07/23 07:23 10 ml ONCE ONE Administration ORDERS Category Date Time Status CT abdomen pelvis w con Stat Cat Scan 10/07/23 05:32 Completed CBC w/Auto Diff [Complete Blood Count Auto Diff] Stat Lab 10/07/23 05:45 Completed CMP [Comprehensive Metabolic Panel] Stat Lab 10/07/23 05:45 Completed Lactic Acid Stat Lab 10/07/23 05:55 Completed Lipase Stat Lab 10/07/23 05:45 Completed Trop I [Troponin I] Stat Lab 10/07/23 05:45 Completed Troponin I Q3H Lab 10/07/23 08:45 Ordered Troponin I Q3H Lab 10/07/23 11:45 Ordered Blood Culture Stat Micro 10/07/23 08:24 Ordered ECG Request Stat Y 10/07/23 05:32 Ordered Medical Decision Narrative: In summary, this 58-year-old male presents to the emergency department today with concerns of nausea, vomiting, possible dehydration. On initial evaluation patient is mildly tachycardic but otherwise hemodynamically stable, afebrile. He reports his blood pressure usually runs between 100-110. Patient has no neurologic deficits, abdomen is soft, nontender, nondistended, G-tube does not appear to be functioning well but the site is clean, dry, intact, no findings of infection. differential diagnosis includes but is not limited to viral syndrome, dehydration, electrolyte abnormality, patient has a history of chronic pancreatitis and it is possible that this is flaring that he does not have pain, also considered possibility of malignancy, obstruction. Overall patient has complicated comorbidities including history of cancer, chronic pancreatitis, G-tube that has malfunction, among others. These all increases overall morbidity and the amount of data to be reviewed. Based on these concerns, I ordered basic labs, IV fluids, CT imaging of the abdomen pelvis. I did also consider the possibility of cardiac etiology though I have much lower suspicion for this. ECG personally interpreted demonstrates normal sinus rhythm, rate 78, normal axis, CT and QTc within normal limits. Patient does have slight J-point elevation in lead II, 3, aVF, however he does not have reciprocal changes and is not having chest pain or shortness of breath no STEMI.. Will obtain repeat EKG. Patient received IV fluids, Zofran for treatment. Labs personally reviewed demonstrate no leukocytosis or anemia, platelets normal 195, additional labs pending. CT imaging pending. Patient handed off to Dr. Santana at physician shift change pending additional labs, cardiac biomarkers, CT imaging, repeat EKG. <Robert Santana MD - Last Filed: 10/07/23 08:38> Vital Signs: 10/07/23 05:28 Temperature 97.5 F L Temperature Source Oral Pulse Rate [Right] 104 H Respiratory Rate 16 Blood Pressure [Right Arm] 106/70 L Blood Pressure Mean [Right Arm] 82 02 Sat by Pulse Oximetry 98 Lab Data Lab Results 10/07/23 05:45: WBC 8.7, RBC 4.89, Hgb 16.8, Hct 43.4, MCV 88.7, MCH 34.4 H, MCHC 38.8 H, RDW 17.6 H, Plt Count 195, MPV 7.9, Neut % (Auto) 81.4 H, Lymph % (Auto) 11.6, [place] % (Auto) 5.2, Eos % (Auto) 1.1, Baso % (Auto) 0.6, Neut # (Auto) 7.1, Lymph # (Auto) 1.0, [place] # (Auto) 0.5, Eos # (Auto) 0.1, Baso # (Auto) 0.1, Sodium 123 L, Potassium 3.9, Chloride 71 L, Carbon Dioxide 30, Anion Gap 25.9 H, BUN 13, Creatinine 1.00, Estimated Creat Clear 62, Estimated GFR 77, Est GFR ( Amer) 93, Glucose 92, Calcium 10.3 H, Total Bilirubin 0.9, AST 47, ALT 40, Alkaline Phosphatase 249 H, Troponin I < 0.01, Total Protein 8.6 H, Albumin 5.2 H, Globulin 3.4 H, Albumin/Globulin Ratio 1.5, Lipase 312 H 10/07/23 05:55: Lactate 3.5 H Orders (Tests/Meds): ED MEDICATIONS Generic Name Dose Route Start Last Admin Trade Name Freq PRN Reason Stop Dose Admin Levofloxacin/Dextrose 250 mg in 50 mls @ 100 mls/hr 10/07/23 08:30 Levaquin 250mg/50ml Premix IV 10/17/23 08:29 Q24H BUZZ Metronidazole 500 mg in 100 mls @ 100 mls/hr 10/07/23 08:21 Flagyl 500mg/100ml Ivpb IV 10/07/23 09:20 ONCE ONE Discontinued Medications Generic Name Dose Route Start Last Admin Trade Name Freq PRN Reason Stop Dose Admin Lactated Ringer's 1,000 mls @ 2,000 mls/hr 10/07/23 05:32 10/07/23 05:51 Lactated Ringer's 1000 Ml Bag IV 10/07/23 06:01 Not Given .Q30M ONE Lactated Ringer's 2,000 mls @ 999 mls/hr 10/07/23 05:49 10/07/23 05:58 Lactated Ringer's 1000 Ml Bag IV 10/07/23 07:49 999 mls/hr .Q2H1M ONE Administration Iopamidol 75 ml 10/07/23 07:22 10/07/23 07:23 Iopamidol-370 (76%);100ml Bottle IV 10/07/23 07:23 75 ml ONCE ONE Administration Ondansetron HCl 4 mg 10/07/23 05:33 10/07/23 05:59 Ondansetron 4mg/2ml Vial IV 10/07/23 05:34 4 mg ONCE ONE Administration Sodium Chloride 10 ml 10/07/23 07:22 10/07/23 07:22 Sodium Chloride 0.9% 10ml Syr (Rad Only) IV 10/07/23 07:23 10 ml ONCE ONE Administration ORDERS Category Date Time Status CT abdomen pelvis w con Stat Cat Scan 10/07/23 05:32 Completed CBC w/Auto Diff [Complete Blood Count Auto Diff] Stat Lab 10/07/23 05:45 Completed CMP [Comprehensive Metabolic Panel] Stat Lab 10/07/23 05:45 Completed Lactic Acid Stat Lab 10/07/23 05:55 Completed Lipase Stat Lab 10/07/23 05:45 Completed Trop I [Troponin I] Stat Lab 10/07/23 05:45 Completed Troponin I Q3H Lab 10/07/23 08:45 Ordered Troponin I Q3H Lab 10/07/23 11:45 Ordered Blood Culture Stat Micro 10/07/23 08:24 Ordered ECG Request Stat Y 10/07/23 05:32 Ordered Medical Decision Narrative: In summary, this 58-year-old male presents to the emergency department today with concerns of nausea, vomiting, possible dehydration. On initial evaluation patient is mildly tachycardic but otherwise hemodynamically stable, afebrile. He reports his blood pressure usually runs between 100-110. Patient has no neurologic deficits, abdomen is soft, nontender, nondistended, G-tube does not appear to be functioning well but the site is clean, dry, intact, no findings of infection. differential diagnosis includes but is not limited to viral syndrome, dehydration, electrolyte abnormality, patient has a history of chronic pancreatitis and it is possible that this is flaring that he does not have pain, also considered possibility of malignancy, obstruction. Overall patient has complicated comorbidities including history of cancer, chronic pancreatitis, G-tube that has malfunction, among others. These all increases overall morbidity and the amount of data to be reviewed. Based on these concerns, I ordered basic labs, IV fluids, CT imaging of the abdomen pelvis. I did also consider the possibility of cardiac etiology though I have much lower suspicion for this. ECG personally interpreted demonstrates normal sinus rhythm, rate 78, normal axis, CT and QTc within normal limits. Patient does have slight J-point elevation in lead II, 3, aVF, however he does not have reciprocal changes and is not having chest pain or shortness of breath no STEMI.. Will obtain repeat EKG. Patient received IV fluids, Zofran for treatment. Labs personally reviewed demonstrate no leukocytosis or anemia, platelets normal 195, additional labs pending. CT imaging pending. Patient handed off to Dr. Santana at physician shift change pending additional labs, cardiac biomarkers, CT imaging, repeat EKG. Esther: I assumed primary responsibility for this patient after signout from previous physician. On my evaluation, patient with mild to moderate abdominal tenderness primarily in his epigastrium, states it does not radiate. He is nondistended, nonperitoneal. Persistently hypotensive after review of blood pressures overnight, this is despite 2 L of IV fluid. Lactate 3.5, anion gap, so patient was given Levaquin and Flagyl due to his allergies to cephalexin and sulfa drugs. Independent rotation of workup demonstrates hyponatremia, hypochloremia with lactic acid 3.5 and anion gap 25.9. Lipase elevated at 312, per chart review, it appears to be 600-700 pretty frequently on his monthly visits to the emergency department. CT abdomen pelvis with general gaseous distention of bowel, no obvious obstruction. He does have a new pseudocyst at the tail of the pancreas with proximally dilated stomach, difficult to discern if this is due to mass effect given image quality. Hospitalist was contacted here at [facility], pseudocysts unable to be managed here. I contacted [facility] gastroenterology, they graciously excepted transfer. Because patient high risk for clinical decompensation if discharged, deemed appropriate for transfer and inpatient admission. Results were relayed to patient who voiced understanding and patient was agreeable to transfer, inpatient admission, and management. Patient was graciously accepted and transferred to for further definitive management, under Dr. Street. Critical Care <Yovani Britt MD - Last Filed: 10/07/23 06:29> Critical Care Time Critical Care Time: No
[2023-10-07 05:56] LABS: Basophils # 0.1 K/mm3 (0-0.2); Basophils % 0.6 % (0.1-2.0); Eosinophils # 0.1 K/mm3 (0.0-0.4); Eosinophils % 1.1 % (0.1-12.0); Hematocrit 43.4 % (42.0-52.0); Hemoglobin 16.8 g/dL (14.1-18.0); Lymphocytes % 11.6 % (10-50); Mean Corpuscular HGB Conc 38.8 g/dL (31.8-35.4); Mean Corpuscular Hemoglobin 34.4 pg (27.0-31.2); Mean Corpuscular Volume 88.7 fl (80-94); Mean Platelet Volume 7.9 fl (7.4-10.4); Monocytes # 0.5 K/mm3 (0.1-1.0); Monocytes % 5.2 % (1.7-9.3); Neutrophils # 7.1 K/mm3 (1.8-7.8); Neutrophils % 81.4 % (37.0-80.0); Platelet Count 195 K/mm3 (142-424); Red Blood Count 4.89 M/mm3 (4.60-6.20); Red Cell Distribution Width 17.6 % (11.5-17.5); White Blood Count 8.7 K/mm3 (4.8-10.8)
[2023-10-07] MEDS: LACTATED RINGERS 1000ML 2,000 ML 999 ML IV (05:58)
[2023-10-07] MEDS: ONDANSETRON 4MG/2ML VIAL 4 MG IV (05:59)
[2023-10-07 06:05] LABS: Alanine Aminotransferase 40 U/L (12-78); Albumin Level 5.2 g/dl (3.5-5.0); Albumin/Globulin Ratio 1.5 (1.1-1.8); Alkaline Phosphatase 249 U/L (38-126); Anion Gap 25.9 mEq/L (5-15); Aspartate Amino Transferase 47 U/L (17-59); Bilirubin,Total 0.9 mg/dl (0.2-1.3); Blood Urea Nitrogen 13 mg/dl (9-20); Calcium 10.3 mg/dl (8.4-10.2); Carbon Dioxide 30 mmol/L (22.0-30.0); Creatinine Clearance Estimated 62 mL/min (50-200); Estimated Glomerular Filt Rate 77 ml/min (>60); GFR (African American) 93 ML/MIN (>60); Globulin 3.4 g/dL (1.3-3.2); Glucose 92 mg/dl (74-100); Lipase 312 U/L (23-300); Potassium 3.9 mmoL/L (3.5-5.1); Sodium 123 mmol/L (136-145); Total Protein,Serum 8.6 g/dl (6.3-8.2)
[2023-10-07 06:42] LABS: Troponin I < 0.01 ng/ml (0.00-0.034)
[2023-10-07 06:42] LABS: Lactic Acid 3.5 mmol/L (0.7-2.1)
[2023-10-07 06:45] LABS: Chloride 71 mmol/L (98-107)
--- NOTE | 2023-10-07 06:47 | PC.NURSE ---
Milady from the lab called with a critical lab value of Chloride - 71. and RN notified. CR
[2023-10-07] MEDS: SODIUM CHLORIDE 0.9% 10ML SYR (RAD ONLY) 10 ML IV (07:22)
[2023-10-07] MEDS: IOPAMIDOL-370 (76%);100ML BOTTLE 75 ML IV (07:23)
--- NOTE | 2023-10-07 08:27 | PC.NURSE ---
called [facility] to speak with gastro neurology about this pt. While on the phone with they spoke with Dr Cosme who is speaking with Dr Santana at this time
--- NOTE | 2023-10-07 08:28 | PC.NURSE ---
Lab notified of blood cultures needed at this time.
[2023-10-07 08:33] VITALS: BP 162/97; PULSE 91; RESP 20; TEMP 36.7; O2SAT 96
--- NOTE | 2023-10-07 08:35 | PC.NURSE ---
Dr. Santana s/w Dr. Street @ [facility]. He accepted pt ER to ER
--- NOTE | 2023-10-07 08:37 | PC.NURSE ---
lab is at [facility]
[2023-10-07] MEDS: LEVOFLOXACIN/D5W 250 MG/50 ML PIGGYBACK 100 MG IV (09:08)
[2023-10-07] MEDS: MVI, ADULT NO.1 WITH VIT K 10 ML, THIAMINE HCL 100 MG, MAGNESIUM SULFATE 2 GM in LACTAT... 750 ML IV (09:08)
[2023-10-07] MEDS: LORazepam 1MG TABLET 2 MG PO (09:09)
[2023-10-07] MEDS: levETIRAcetam 500 MG TABLET PO (09:09)
[2023-10-07] MEDS: FOLIC ACID 1MG TABLET 1 MG PO (09:09)
[2023-10-07 09:21] LABS: Troponin I < 0.01 ng/ml (0.00-0.034)
--- NOTE | 2023-10-07 09:30 | PC.NURSE ---
report called to [facility] milly charge
[2023-10-07] MEDS: METRONIDAZ/SOD CHL 500 MG/100 ML PIGGYBACK 100 MG IV (09:34)
[2023-10-07] MEDS: HYDROMORPHONE 2MG/ML SYRINGE 0.5 MG IV (09:47)
[2023-10-07 10:09] LABS: Reflex Lactic Add Lactic Reflex
== END 2023-10-07 10:55 | disposition short-term general hospital (02) ==
PROVIDERS: Emergency Medicine; Emergency Provider Emergency Medicine
DX: R11.2 Nausea with vomiting, unspecified (principal); E87.8 Other disorders of electrolyte and fluid balance, not elsewhere classified; E87.1 Hypo-osmolality and hyponatremia; K85.20 Alcohol induced acute pancreatitis without necrosis or infection; K86.3 Pseudocyst of pancreas; J44.9 Chronic obstructive pulmonary disease, unspecified; F17.210 Nicotine dependence, cigarettes, uncomplicated; Z85.118 Personal history of other malignant neoplasm of bronchus and lung; R10.816 Epigastric abdominal tenderness; R74.02 Elevation of levels of lactic acid dehydrogenase [LDH]
CPT/HCPCS: 36415; 74177; 80053; 83605; 83690; 84484; 85025; 87040; 93005; 96361; 96365; 96366; 96375; 99285; J1956; J2405; Q9967

== ENCOUNTER 2023-10-09 11:24 | Outpatient (CLI) | payer MEDICAID, SELFPAY ==
--- NOTE | 2023-10-09 11:30 | XR_ITS ---
FINAL REPORT TECHNIQUE: Chest PA & Lateral CLINICAL HISTORY: Cough pain in left lung with inhalation per pt 2016-cancer in R lung per pt smoker COMPARISON: 01/30/2023 FINDINGS: 2 views of the chest were performed. The heart size is normal. The mediastinum is within normal limits. There is no acute cardiopulmonary process. There are no pleural effusions. There is no pneumothorax. The bony thorax appears intact. IMPRESSION: No acute cardiopulmonary process. Reviewed, Interpreted and Dictated by Glenn Jones MD Transcribed by Janet Aponte Authenticated and [facility]
== END 2023-10-09 23:59 | disposition home or self-care (01) ==
LOC: RAD 11:25
PROVIDERS: PCP Family Medicine; Visit Provider Family Medicine
DX: G89.29 Other chronic pain (principal); F17.210 Nicotine dependence, cigarettes, uncomplicated
CPT/HCPCS: 71046

== ENCOUNTER 2023-10-10 09:52 | Outpatient (CLI) | payer MEDICAID, SELFPAY ==
[2023-10-10 18:22] LABS: Basophils % 0.5 % (0.1-2.0); Eosinophils # 0.3 K/mm3 (0.0-0.4); Eosinophils % 6.3 % (0.1-12.0); Hematocrit 42.1 % (42.0-52.0); Hemoglobin 13.7 g/dL (14.1-18.0); Lymphocytes # 1.3 K/mm3 (0.7-4.5); Lymphocytes % 27.9 % (10-50); Mean Corpuscular HGB Conc 32.6 g/dL (31.8-35.4); Mean Corpuscular Hemoglobin 30.1 pg (27.0-31.2); Mean Corpuscular Volume 92.4 fl (80-94); Mean Platelet Volume 9.3 fl (7.4-10.4); Monocytes # 0.3 K/mm3 (0.1-1.0); Monocytes % 5.9 % (1.7-9.3); Neutrophils # 2.9 K/mm3 (1.8-7.8); Neutrophils % 59.4 % (37.0-80.0); Platelet Count 163 K/mm3 (142-424); Red Blood Count 4.55 M/mm3 (4.60-6.20); Red Cell Distribution Width 17.6 % (11.5-17.5); White Blood Count 4.8 K/mm3 (4.8-10.8)
[2023-10-10 18:42] LABS: Alanine Aminotransferase 25 U/L (12-78); Albumin Level 4.2 g/dl (3.5-5.0); Albumin/Globulin Ratio 1.5 (1.1-1.8); Alkaline Phosphatase 145 U/L (38-126); Anion Gap 12.5 mEq/L (5-15); Aspartate Amino Transferase 30 U/L (17-59); Bilirubin,Total 0.6 mg/dl (0.2-1.3); Blood Urea Nitrogen 4 mg/dl (9-20); Calcium 9.4 mg/dl (8.4-10.2); Carbon Dioxide 28 mmol/L (22.0-30.0); Chloride 95 mmol/L (98-107); Estimated Glomerular Filt Rate 116 ml/min (>60); GFR (African American) 140 ML/MIN (>60); Globulin 2.8 g/dL (1.3-3.2); Glucose 141 mg/dl (74-100); Lipase 546 U/L (23-300); Potassium 4.5 mmoL/L (3.5-5.1); Sodium 131 mmol/L (136-145)
== END 2023-10-10 23:59 | disposition home or self-care (01) ==
LOC: LAB.DROPOF 10-14 09:53
PROVIDERS: PCP Family Medicine; Visit Provider Family Medicine
DX: G89.29 Other chronic pain (principal)
CPT/HCPCS: 80053; 83690; 85025

== ENCOUNTER 2023-12-19 14:32 | Outpatient (CLI) | payer MEDICAID, SELFPAY ==
--- NOTE | 2023-12-19 14:32 | CT_ITS ---
FINAL REPORT TECHNIQUE: Axial images were obtained through the chest without contrast. Axial images through the chest were performed by computed tomography. This study was performed with techniques to keep radiation doses as low as reasonably achievable, (ALARA). Individualized dose reduction techniques using automated exposure control or adjustment of mA and/or kV according to the patient's size were employed. CLINICAL HISTORY: Hx of Lung Cancer COMPARISON: 02/23/2023 FINDINGS: CT CHEST WITHOUT CONTRAST: There are ill-defined densities in the medial right upper lobe, 8 mm in size, best seen on image #28 of series 2 as well as in the posterior aspect of the right upper lobe, stable. There is a new abnormal density, ill-defined, best seen on image #81 of series 3. The heart size is normal. There is no pericardial or pleural effusion. There is calcification within the pancreas consistent with chronic pancreatitis. No suspicious infiltrate or nodule identified. IMPRESSION: Several stable nodules are again identified, with a new nodular opacity, ill-defined, as described above. Would recommend follow-up CT in 3 to 6 months to reevaluate. Calcification within the pancreas consistent with chronic pancreatitis. Reviewed, Interpreted and Dictated by Glenn Jones MD Transcribed by Janet Aponte Authenticated and [facility]
== END 2023-12-19 23:59 | disposition home or self-care (01) ==
LOC: RAD 14:32
PROVIDERS: PCP Family Medicine; Visit Provider Family Medicine
DX: R91.1 Solitary pulmonary nodule (principal); Z85.118 Personal history of other malignant neoplasm of bronchus and lung; F17.210 Nicotine dependence, cigarettes, uncomplicated
CPT/HCPCS: 71250

== ENCOUNTER 2024-02-04 16:17 | Inpatient (IN) | payer MEDICAID, SELFPAY ==
[2024-02-04] VITALS (12 sets, daily range): BP systolic 115–161; BP diastolic 73–129; PULSE 67–104; RESP 18–20; TEMP 36.4–36.8; O2SAT 95–100; BMI 18.2; BMI 21.6; BMI 20.4
--- NOTE | 2024-02-04 16:30 | CT_ITS ---
PROCEDURE INFORMATION: Exam: CT Abdomen And Pelvis With Contrast Exam date and time: 02/04/2024 5:49 PM Age: 58 years old Clinical indication: Abdominal pain; Generalized; Additional info: Gen abd pain, intractable n/v TECHNIQUE: Imaging protocol: Computed tomography of the abdomen and pelvis with contrast. Radiation optimization: All CT scans at this facility use at least one of these dose optimization techniques: automated exposure control; mA and/or kV adjustment per patient size (includes targeted exams where dose is matched to clinical indication); or iterative reconstruction. Contrast material: ISOVUE; Contrast volume: 75 ml; Contrast route: IV; COMPARISON: 1. CT ABDOMEN PELVIS W CON 10/07/2023 7:[address] ABDOMEN PELVIS W CON 07/04/2023 1:42 AM FINDINGS: Tubes, catheters and devices: Embolization coils adjacent to the lesser curvature of the stomach. Liver: Punctate calcified granulomas in the liver. No hepatomegaly. Gallbladder and biliary ducts: Status post cholecystectomy. No significant biliary ductal dilitation. Pancreas: Pancreatic calcifications and atrophy consistent with chronic pancreatitis. Fluid collection adjacent to the pancreatic tail is smaller measuring 1.6 cm (previously 2.5 cm). Fluid collection between the head of the pancreas and duodenum is smaller measuring 0.7 cm (previously 1.8 cm). Fat infiltration around the pancreatic head is unchanged. Spleen: Calcified granulomas in the spleen. No splenomegaly. Adrenal glands: Normal. No mass. Kidneys and ureters: Simple cysts in the left kidney are unchanged measuring 2.2 cm and 0.9 cm. No right renal lesions. No hydronephrosis. Stomach and bowel: Scattered mildly dilated small bowel loops. No bowel wall thickening. Appendix: No evidence of appendicitis. Intraperitoneal space: Unremarkable. No free air. No significant fluid collection. Vasculature: Mild/moderate atherosclerotic disease without aneurysm. Patent portal, splenic, and superior mesenteric veins. Lymph nodes: Unremarkable. No enlarged lymph nodes. Urinary bladder: Unremarkable as visualized. Reproductive: Unremarkable as visualized. Bones/joints: Unremarkable. No acute fracture. Soft tissues: Unremarkable. IMPRESSION: 1. Changes of chronic pancreatitis again seen. Decreased size of small pseudocysts adjacent to the pancreatic tail and head. 2. Unchanged infiltration of the fat adjacent to the pancreatic head which is presumably the sequela of chronic pancreatitis. This appearance could obscure mild acute pancreatitis or even infiltrating tumor. 3. Scattered mildly dilated small bowel loops could be due to an ileus or enteritis.
--- NOTE | 2024-02-04 16:32 | ED_ITS ---
Discharge Plan Disposition Patient Disposition: Admitted Clinical Impressions Clinical Impression: Ileus, Acute hyponatremia, Acute on chronic pancreatitis Discharge ED Provider: Jen Gracia General Adult HPI General Chief complaint: Abdominal Pain Stated complaint: pain in abdomin Time Seen by Provider: 02/04/24 16:23 History of Present Illness HPI narrative: This patient is a 58-year-old male with a history of chronic pancreatitis, pancreatic pseudocyst, small bowel obstruction, cachexia, prior gastrostomy tube that is since been removed, and metastatic lung cancer to the bone presenting to the emergency department for evaluation with concern for pancreas pain. He states that his pancreas is hurting really bad in his epigastric region and he is having intractable nausea and vomiting. He notes his emesis is kind of green. He denies fevers, chills, or other concerns. He does note that he had a decrease in bowel movements and gas, and he can remember when his last bowel movement was. On medical record review, he has been seen for this multiple times in the past with flares of pancreatitis Related Data Home Medications ?Medication ?Instructions ?Recorded ?Confirmed [id number] 2 cap PO TIDWMEAL Pancreatic 02/23/23 02/04/24 36,000-114,000-180,000 unit insufficiency capsule,delay rel ascorbic acid (vitamin C) 250 mg 250 mg PO DAILY 02/04/24 02/04/24 tablet lorazepam 2 mg tablet 2 mg PO BIDP PRN Anxiety 02/04/24 02/04/24 Previous Rx's ?Medication ?Instructions ?Recorded albuterol sulfate 90 mcg/actuation 1 inh inhalation Q4HP PRN 06/02/23 breath activated powder Shortness Of Breath #1 ea inhaler,sensor fluticasone propionate 50 2 spray intranasal BID allergy 08/12/23 mcg/actuation nasal symptoms #16 grams spray,suspension (Flonase Allergy Relief) folic acid 1 mg tablet 1 mg PO DAILY #100 tabs 12/01/23 thiamine HCl (vitamin B1) 100 mg 100 mg PO DAILY #100 tabs 12/01/23 tablet oxycodone 10 mg tablet 10 mg PO BIDP PRN pain #60 tabs 12/29/23 pantoprazole 40 mg tablet,delayed 40 mg PO DAILY #90 tabs 01/06/24 release sucralfate 1 gram tablet (Carafate) 1 g PO BID Ulcers #180 tabs 01/21/24 levetiracetam 500 mg tablet 500 mg PO BID #60 tabs 02/02/24 (Keppra) Allergies Allergy/AdvReac Type Severity Reaction Status Date / Time cephalexin [From Keflex] Allergy Mild Hives Verified 12/29/23 13:26 sulfamethoxazole Allergy Unknown Verified 12/29/23 13:26 [From BACTRIM] trimethoprim [From BACTRIM] Allergy Unknown Verified 12/29/23 13:26 [facility] Disclaimer: The information contained in this section may have been updated after the patient was seen, as this information can be updated by other users. Medical History (Updated 02/05/24 @ 12:03 by Tino Jack MD) Pancreatic pseudocyst Chronic alcohol abuse Bipolar 1 disorder Seizures Abdominal aneurysm Excessive cerumen in left ear canal SBO (small bowel obstruction) Acute pancreatitis Cachexia Acute on chronic pancreatitis Gastrostomy tube dependent Metastatic non-small cell lung cancer Severe protein-calorie malnutrition Lung cancer metastatic to bone Abdominal pain Pancreatic pseudocyst Abdominal pain Bone marrow disorder Cirrhosis COPD (chronic obstructive pulmonary disease) GERD (gastroesophageal reflux disease) Gastric outlet obstruction History of lung cancer Pancreatic pseudocyst Alcoholic pancreatitis Anxiety History of lung cancer Alcohol abuse Pancreatitis, acute Gallstone pancreatitis Pancreatitis Hypokalemia Surgical History (Updated 02/04/24 @ 21:14 by Karina Castellon RN) History of cholecystectomy Hx of cholecystectomy Family History Other Cancer of lung Emphysema lung Social History (Updated 02/04/24 @ 21:16 by Karina Castellon RN) Smoking Status: Current every day smoker tobacco type: cigarettes packs per day: 3 alcohol intake: current alcohol intake frequency: a few times a week substance use type: denies use current occupational status: unemployed Travel in the last 8 weeks: None household members: family housing: house current occupational exposures/hazards: No caffeine: No ROS Obtained: Yes All systems reviewed & no additional complaints except as documented Physical Exam General General appearance: alert and in no apparent distress Head Head exam: atraumatic and normocephalic Eye Eye exam: Present normal appearance, PERRL and EOMI ENT ENT exam: Present normal exam, normal oropharynx, mucous membranes moist and normal external ear exam Neck Neck exam: Present normal inspection, full ROM and trachea midline; Absent tenderness Chest Chest inspection: Present normal inspection and symmetric chest wall rise; Absent tenderness Respiratory Respiratory exam: Present normal lung sounds bilaterally; Absent respiratory distress, wheezes, stridor or accessory muscle use Cardiovascular Cardiovascular exam: Present regular rate and normal rhythm Abdominal Exam Abdominal exam: Present soft and tenderness (Generalized); Absent distention or guarding Extremities Exam Extremities exam: Present normal inspection, full ROM and normal capillary refill; Absent tenderness or edema Back Exam Back exam: Present normal inspection and full ROM; Absent tenderness Neurological Exam Neurological exam: Present alert, oriented X3, CN II-XII intact and normal gait; Absent motor sensory deficit Psychiatric Psychiatric exam: Present normal affect and normal mood Skin Skin exam: Present warm and dry Medical Decision Making Medical Records Medical records reviewed: Yes I reviewed the patient's medical records. Screening: Per USPSTF and CDC recommendations, given the prevalence of disease in our region, it is our hospital?s policy to screen for HIV and viral Hepatitis for all patients aged 18 and over and those with ongoing risk factors. [place] Inquiry Pt receiving controlled substance: No Vital Signs: 02/04/24 16:18 02/04/24 18:00 02/04/24 18:10 Temperature 98.3 F Temperature Source Oral Pulse Rate 70 71 Pulse Rate [Radial] 104 H Respiratory Rate 18 Blood Pressure 134/73 135/80 Blood Pressure [Right Arm] 141/81 H Blood Pressure Mean [Right Arm] 101 Blood Pressure Source Blood Pressure Source [Right Arm] Automatic Cuff Blood Pressure Position Blood Pressure Position [Right Arm] Sitting 02 Sat by Pulse Oximetry 98 100 95 Oxygen Delivery Method Room Air 02/04/24 18:20 02/04/24 18:30 02/04/24 18:40 Temperature Temperature Source Pulse Rate 68 67 67 Pulse Rate [Radial] Respiratory Rate Blood Pressure 144/79 H 122/79 132/77 Blood Pressure [Right Arm] Blood Pressure Mean [Right Arm] Blood Pressure Source Blood Pressure Source [Right Arm] Blood Pressure Position Blood Pressure Position [Right Arm] 02 Sat by Pulse Oximetry 100 100 100 Oxygen Delivery Method 02/04/24 18:50 02/04/24 19:00 02/04/24 19:30 Temperature Temperature Source Pulse Rate 68 69 79 Pulse Rate [Radial] Respiratory Rate Blood Pressure 138/76 161/129 H 118/80 Blood Pressure [Right Arm] Blood Pressure Mean [Right Arm] Blood Pressure Source Blood Pressure Source [Right Arm] Blood Pressure Position Blood Pressure Position [Right Arm] 02 Sat by Pulse Oximetry 100 100 100 Oxygen Delivery Method 02/04/24 20:00 02/04/24 20:00 02/04/24 20:35 Temperature 98.2 F Temperature Source Oral Pulse Rate 77 69 Pulse Rate [Radial] Respiratory Rate 20 Blood Pressure 133/85 115/76 Blood Pressure [Right Arm] Blood Pressure Mean [Right Arm] Blood Pressure Source Automatic Cuff Blood Pressure Source [Right Arm] Blood Pressure Position Sitting Blood Pressure Position [Right Arm] 02 Sat by Pulse Oximetry 100 Oxygen Delivery Method Room Air Room Air Lab Data Lab results reviewed: Yes I reviewed the patient's lab results. Lab Results 02/04/24 16:24: Urine Color Yellow, Urine Appearance Clear, Urine pH 6.5, Ur Specific [place] <= 1.005, Urine Protein Negative, Urine Glucose (UA) Negative, Urine Ketones Negative, Urine Blood Negative, Urine Nitrate Negative, Urine Bilirubin Negative, Urine Urobilinogen 0.2, Ur Leukocyte Esterase Negative, Urine RBC Occasional, Urine WBC Occasional, Ur Squamous Epith Cells Occasional 02/04/24 16:25: WBC 8.3, RBC 4.20 L, Hgb 14.1, Hct 42.4, MCV 101.0 H, MCH 33.6 H , MCHC 33.2, RDW 14.6, Plt Count 167, MPV 8.7, Neut % (Auto) 81.5 H, Lymph % (Auto) 9.9 L, [place] % (Auto) 6.0, Eos % (Auto) 2.3, Baso % (Auto) 0.4, Neut # (Auto) 6.8, Lymph # (Auto) 0.8, [place] # (Auto) 0.5, Eos # (Auto) 0.2, Baso # (Auto) 0.0, Sodium 119 L, Potassium 4.5, Chloride 89 L, Carbon Dioxide 23, Anion Gap 11.5, BUN 5 L, Creatinine 0.60 L, Estimated Creat Clear 103, Estimated GFR 138, Est GFR ( Amer) 167, Glucose 85, Calcium 8.7, Phosphorus 3.3, Magnesium 1.8, Total Bilirubin 1.1, AST 33, ALT 15, Alkaline Phosphatase 77, Total Protein 7.8, Albumin 4.9, Globulin 2.9, Albumin/Globulin Ratio 1.7, Lipase 521 H, HIV 1&2 Antibody Rapid Nonreactive 02/05/24 05:19 02/05/24 12:12 Orders (Tests/Meds): ED MEDICATIONS Generic Name Dose Route Start Last Admin Trade Name Freq PRN Reason Stop Dose Admin Acetaminophen 650 mg 02/04/24 19:40 Acetaminophen 325mg Tab PO 03/05/24 19:39 Q4HP PRN Fever or Mild Pain (1-3) Albuterol Sulfate 2.5 mg 02/05/24 07:34 Albuterol 0.083% 2.5 Mg/3 Ml Neb IH 03/06/24 07:33 Q4HP PRN Shortness Of Breath Lipase/Protease/Amylase 2 each 02/05/24 07:30 02/05/24 11:46 Lipase/Protease/Amylase 1 Each Capsule. PO 03/06/24 07:29 2 each TIDWMEAL BUZZ Administration Ascorbic Acid 500 mg 02/05/24 09:00 02/05/24 08:41 Ascorbic Acid 500mg Tab PO 03/06/24 08:59 500 mg DAILY BUZZ Administration Fluticasone Propionate 2 spray 02/05/24 09:00 02/05/24 08:41 Fluticasone Prop 50mcg Nasal [place] 16gm NS 03/06/24 08:59 2 spray BID BUZZ Administration Folic Acid 1 mg 02/05/24 09:00 02/05/24 08:41 Folic Acid 1mg Tablet PO 03/06/24 08:59 1 mg DAILY BUZZ Administration Haloperidol Lactate 5 mg 02/04/24 21:25 Haloperidol Lactate 5 Mg/Ml Vial IV 03/05/24 21:24 Q1HP PRN Agitation Sodium Chloride 1,000 mls @ 50 mls/hr 02/04/24 19:45 02/04/24 21:59 Sod Chlor 0.9% 1000ml Bag IV 03/05/24 19:44 50 mls/hr .Q20H BUZZ Administration Levetiracetam 500 mg 02/04/24 21:20 02/05/24 08:40 Levetiracetam 500 Mg Tablet PO 03/05/24 21:19 500 mg BID BUZZ Administration Lorazepam 2 mg 02/04/24 21:25 Lorazepam 2mg/Ml Vial IV 03/05/24 21:24 Q1HP PRN CIWA >16 Lorazepam 1 mg 02/04/24 21:25 Lorazepam 2mg/Ml Vial IV 03/05/24 21:24 Q1HP PRN CIWA Score 8-15 Lorazepam 1 mg 02/04/24 21:25 02/05/24 11:46 Lorazepam 1mg Tablet PO 03/05/24 21:24 1 mg Q6HP PRN Administration CIWA 2-7 Lorazepam 2 mg 02/05/24 07:31 Lorazepam 1mg Tablet PO 03/06/24 07:30 BIDP PRN Anxiety Morphine Sulfate 2 mg 02/04/24 19:40 02/05/24 06:06 Morphine 2mg/Ml Syringe IV 03/05/24 19:39 2 mg Q2HP PRN Administration Severe Pain (7-10) Multivitamins 1 each 02/05/24 17:00 Multivitamin Tablet PO 03/06/24 16:59 1700 BUZZ Nicotine 21 mg 02/04/24 19:40 02/04/24 21:59 Nicotine 21mg/24hr Patch TD 03/05/24 19:39 21 mg DAILYP PRN Administration Nicotine Cravings Ondansetron HCl 4 mg 02/04/24 19:40 02/05/24 06:07 Ondansetron 4mg/2ml Vial IV 03/05/24 19:39 4 mg Q8HP PRN Administration Nausea Oxycodone HCl 10 mg 02/05/24 07:32 02/05/24 14:37 Oxycodone 5mg Immediate Release Tablet PO 03/06/24 07:31 10 mg BIDP PRN Administration Severe Pain (7-10) Pantoprazole Sodium 40 mg 02/05/24 09:00 Pantoprazole 40mg Tablet PO 03/06/24 08:59 HS BUZZ Sodium Chloride 10 ml 02/04/24 21:25 Sodium Chloride 0.9% 10ml Vial IV 03/05/24 21:24 NEEDED PRN to Dilute Lorazepam inj Sodium Chloride 10 ml 02/05/24 11:07 Sodium Chloride 0.9% 10ml Flush Syringe IV 03/06/24 11:06 NEEDED PRN Maintain IV Site Sucralfate 1 gm 02/05/24 09:00 02/05/24 08:41 Sucralfate 1gm Tablet PO 03/06/24 08:59 1 gm BID BUZZ Administration Thiamine HCl 100 mg 02/05/24 09:00 02/05/24 08:41 Thiamine 100mg Tablet PO 03/06/24 08:59 100 mg DAILY BUZZ Administration Tiotropium [place] 1 cap 02/05/24 14:30 Tiotropium 18mcg/Puff Inhaler IH 03/06/24 14:29 DAILY BUZZ Discontinued Medications Generic Name Dose Route Start Last Admin Trade Name Freq PRN Reason Stop Dose Admin Acetaminophen 1,000 mg 02/04/24 16:27 02/04/24 16:51 Acetaminophen 1,000mg/100ml Vial IV 02/04/24 16:28 1,000 mg ONCE ONE Administration Enoxaparin Sodium 40 mg 02/05/24 09:00 02/05/24 08:41 Enoxaparin 40mg/0.4ml Syringe SQ 03/06/24 08:59 40 mg DAILY BUZZ Administration Lactated Ringer's 1,000 mls @ 999 mls/hr 02/04/24 16:27 02/04/24 16:52 Lactated Ringer's 1000 Ml Bag IV 02/04/24 17:27 999 mls/hr .Q1H1M ONE Administration Iopamidol 75 ml 02/04/24 17:49 02/04/24 17:49 Iopamidol-370 (76%);100ml Bottle IV 02/04/24 17:50 75 ml ONCE ONE Administration Ketorolac Tromethamine 15 mg 02/04/24 16:27 02/04/24 16:52 Ketorolac 30mg/Ml Vial IV 02/04/24 16:28 15 mg ONCE ONE Administration Non-Formulary Medication 2 mg 02/04/24 21:30 02/04/24 21:35 Lorazepam PO 03/05/24 21:29 2 mg BIDP BUZZ Administration Non-Formulary Medication 10 mg 02/04/24 21:18 02/04/24 21:59 Oxycodone PO 10 mg BIDP PRN Administration pain Ondansetron HCl 4 mg 02/04/24 16:27 02/04/24 16:52 Ondansetron 4mg/2ml Vial IV 02/04/24 16:28 4 mg ONCE ONE Administration Pantoprazole Sodium 40 mg 02/05/24 09:00 02/05/24 03:14 Pantoprazole 40mg Tablet PO 03/06/24 08:59 40 mg DAILY BUZZ Administration Sodium Chloride 10 ml 02/04/24 17:49 02/04/24 17:50 Sodium Chloride 0.9% 10ml Syr (Rad Only) IV 03/05/24 17:48 10 ml NEEDED PRN Administration Maintain IV Site ORDERS Category Date Time Status CT abdomen pelvis w con Stat Cat Scan 02/04/24 16:30 Completed GI consult [Consult to Gastroenterology] [CONS] Routine Cons 02/04/24 19:40 Active Complete Blood Count Auto Diff AMLAB Lab 02/05/24 05:19 Completed Complete Blood Count Auto Diff Stat Lab 02/04/24 16:25 Completed Comprehensive Metabolic Panel AMLAB Lab 02/05/24 05:19 Completed Comprehensive Metabolic Panel Stat Lab 02/04/24 16:25 Completed HIV (1&2) Antibody Rapid Stat Lab 02/04/24 16:25 Completed Hep C Ab with Reflex to RNA Stat Lab 02/04/24 16:25 Received Lipase Stat Lab 02/04/24 16:25 Completed MAG [Magnesium] Stat Lab 02/04/24 16:25 Completed Magnesium AMLAB Lab 02/05/24 05:19 Completed PHOS [Phosphorous] Stat Lab 02/04/24 16:25 Completed UA [Urinalysis and Microscopic] Stat Lab 02/04/24 16:24 Completed ECG Data Tracing #1: I reviewed this ECG and interpreted as documented below: Normal sinus rhythm with a ventricular rate of [address] changes concerning for ischemia. Normal axis and intervals ECG initial impression date: 02/04/24 ECG initial impression time: 16:48 Medical Decision Narrative: In summary, this patient is a 58-year-old male presenting to the Emergency Department for evaluation of epigastric pain that he feels is pancreatitis as well as nausea and vomiting. Differential diagnoses considered include but are not limited to acute on chronic pancreatitis, bowel obstruction, pancreatic pseudocyst, colitis, gastritis. Ruling out the most morbid conditions drove assessment. I reviewed patient's past medical records and noted previous evaluations and previous diagnoses of pancreatitis and bowel obstruction. On exam, the patient is sitting upright in no acute distress with reassuring vital signs on cardiac telemetry. He has epigastric and generalized abdominal tenderness but no rebound or guarding. workup included CBC, CMP, lipase, magnesium, phosphorus, EKG, and CT abdomen pelvis with IV contrast. Patient was given a bolus of IV fluids as well as IV Toradol, acetaminophen, and Zofran for symptomatic improvement.. I independently interpreted CT scan prior to the radiologist read and noted chronic pancreatitis and concerns for ileus but no obvious acute bowel obstruction. Please see their read for final interpretation. Labs were obtained that demonstrated elevated lipase, hyponatremia which is acute on chronic. Labs are otherwise reassuring. On reassessment, patient had minimal improvement after administration of interventions above. He states he still feels bad. Given his worsening hyponatremia in the setting of intractable abdominal pain, pancreatitis, ileus, and his chronic comorbidities, I feel he would benefit from admission for fluid resuscitation and continued monitoring. I had an interactive discussion with the hospitalist who admitted the patient in stable condition. Critical Care Critical Care Time Critical Care Time: No
[2024-02-04 16:47] LABS: Microscopic, Urine URINE MICROSCOPIC (MICROSCOPIC)
--- NOTE | 2024-02-04 16:47 | ECG_ITS ---
APPROVED REPORT Exam: Resting ECG HR:85 bpm ECG Measurements Heart Rate 85 AXES TN 169 P 83 QRSd 88 QRS 85 QT 355 T 74 QTc 397 Conclusion SINUS RHYTHM NORMAL ECG Electronically signed by : NICKI ROCA, 02/04/2024 22:21:09
[2024-02-04] MEDS: ACETAMINOPHEN 1,000MG/100ML VIAL 1000 MG IV (16:51)
[2024-02-04] MEDS: ONDANSETRON 4MG/2ML VIAL 4 MG IV (16:52)
[2024-02-04] MEDS: LACTATED RINGERS 1000ML 1,000 ML 999 ML IV (16:52)
[2024-02-04] MEDS: KETOROLAC 30MG/ML VIAL 15 MG IV (16:52)
[2024-02-04 16:53] LABS: Appearance,Urine CLEAR (Clear); Bilirubin,Urine Negative (Negative); Blood, Urine Negative (Negative); Color,Urine YELLOW (Yellow); Glucose,Urine (UA) Negative (Negative); Ketones,Urine Negative (Negative); Leukocyte Esterase,Urine Negative (Negative); Nitrate,Urine Negative (Negative); PH,Urine 6.5 (5.0-8.5); Protein,Urine Negative (Negative); Specific Gravity, Urine <= 1.005 (1.005-1.030); Urobilinogen,Urine 0.2 EU/dl (0.2)
[2024-02-04 17:01] LABS: Albumin Level 4.9 g/dl (3.5-5.0); Chloride 89 mmol/L (98-107); Potassium 4.5 mmoL/L (3.5-5.1); Sodium 119 mmol/L (136-145)
[2024-02-04 17:04] LABS: RBC,Urine Occasional #/hpf (0-3); Squamous Epithelial Cell,Urine Occasional #/hpf (0-5); WBC,Urine Occasional #/hpf (0-3)
[2024-02-04 17:04] LABS: Alanine Aminotransferase 15 U/L (12-78); Albumin/Globulin Ratio 1.7 (1.1-1.8); Alkaline Phosphatase 77 U/L (38-126); Anion Gap 11.5 mEq/L (5-15); Aspartate Amino Transferase 33 U/L (17-59); Bilirubin,Total 1.1 mg/dl (0.2-1.3); Blood Urea Nitrogen 5 mg/dl (9-20); Calcium 8.7 mg/dl (8.4-10.2); Carbon Dioxide 23 mmol/L (22.0-30.0); Creatinine Clearance Estimated 103 mL/min (50-200); Estimated Glomerular Filt Rate 138 ml/min (>60); GFR (African American) 167 ML/MIN (>60); Globulin 2.9 g/dL (1.3-3.2); Glucose 85 mg/dl (74-100); Lipase 521 U/L (23-300); Magnesium 1.8 mg/dl (1.6-2.3); Phosphorous 3.3 mg/dl (2.5-4.5); Total Protein,Serum 7.8 g/dl (6.3-8.2)
[2024-02-04 17:13] LABS: Basophils % 0.4 % (0.1-2.0); Eosinophils # 0.2 K/mm3 (0.0-0.4); Eosinophils % 2.3 % (0.1-12.0); Hematocrit 42.4 % (42.0-52.0); Hemoglobin 14.1 g/dL (14.1-18.0); Lymphocytes # 0.8 K/mm3 (0.7-4.5); Lymphocytes % 9.9 % (10-50); Mean Corpuscular HGB Conc 33.2 g/dL (31.8-35.4); Mean Corpuscular Hemoglobin 33.6 pg (27.0-31.2); Mean Platelet Volume 8.7 fl (7.4-10.4); Monocytes # 0.5 K/mm3 (0.1-1.0); Neutrophils # 6.8 K/mm3 (1.8-7.8); Neutrophils % 81.5 % (37.0-80.0); Platelet Count 167 K/mm3 (142-424); Red Cell Distribution Width 14.6 % (11.5-17.5); White Blood Count 8.3 K/mm3 (4.8-10.8)
--- NOTE | 2024-02-04 17:41 | PC.NURSE ---
pt to ct scan via wheelchair
[2024-02-04] MEDS: IOPAMIDOL-370 (76%);100ML BOTTLE 75 ML IV (17:49)
[2024-02-04] MEDS: SODIUM CHLORIDE 0.9% 10ML SYR (RAD ONLY) 10 ML IV (17:50)
--- NOTE | 2024-02-04 19:43 | PC.NURSE ---
Notified admissions for admit
--- NOTE | 2024-02-04 19:44 | P.HP_ITS ---
<Statement entered by Vitor Lopez MD - 02/11/24 17:01> Attestation: I saw and evaluated the patient. I agree with the findings and plan of care as documented in the CASING MACHINE OPERATOR?s note. History of Present Illness *Admission Date: 02/04/24 *Reason for visit:: abd pain *History of present illness: This is a 58-year-old male with a history of chronic pancreatitis, pancreatic pseudocyst, small bowel obstruction, cachexia, prior gastrostomy tube that is since been removed, and metastatic lung cancer to the bone presenting to the emergency department for evaluation with concern for pancreas pain. He states that his pancreas is hurting really bad in his epigastric region and he is having intractable nausea and vomiting. He notes his emesis is kind of green. He denies fevers, chills, or other concerns. He does note that he had a decrease in bowel movements and gas, and he can remember when his last bowel movement was. On medical record review, he has been seen for this multiple times in the past with flares of pancreatitis [facility] Disclaimer: The information contained in this section may have been updated after the patient was seen, as this information can be updated by other users. Medical History (Updated 02/04/24 @ 21:24 by Chong Dowell APRN) Chronic alcohol abuse Bipolar 1 disorder Seizures Abdominal aneurysm Excessive cerumen in left ear canal SBO (small bowel obstruction) Acute pancreatitis Cachexia Acute on chronic pancreatitis Gastrostomy tube dependent Metastatic non-small cell lung cancer Severe protein-calorie malnutrition Lung cancer metastatic to bone Abdominal pain Pancreatic pseudocyst Abdominal pain Bone marrow disorder Cirrhosis COPD (chronic obstructive pulmonary disease) GERD (gastroesophageal reflux disease) Gastric outlet obstruction History of lung cancer Pancreatic pseudocyst Alcoholic pancreatitis Anxiety History of lung cancer Alcohol abuse Pancreatitis, acute Gallstone pancreatitis Pancreatitis Hypokalemia Surgical History (Updated 02/04/24 @ 21:14 by Karina Castellon RN) History of cholecystectomy Hx of cholecystectomy Family History Other Cancer of lung Emphysema lung Social History (Updated 02/04/24 @ 21:16 by Karina Castellon RN) Smoking Status: Current every day smoker tobacco type: cigarettes packs per d ay: 3 alcohol intake: current alcohol intake frequency: a few times a week substance use type: denies use current occupational status: unemployed Travel in the last 8 weeks: None household members: family housing: house current occupational exposures/hazards: No caffeine: No Review of Systems Review of Systems Review of systems:: pertinent systems reviewed and negative unless documented below Meds Home Medications and Allergies Home Medications ?Medication ?Instructions ?Recorded ?Confirmed ?Type [id number] 2 cap PO TIDWMEAL Pancreatic 02/23/23 02/04/24 History 36,000-114,000-180,000 unit insufficiency capsule,delay rel albuterol sulfate 90 mcg/actuation 1 inh inhalation Q4HP PRN 06/02/23 02/04/24 Rx breath activated powder Shortness Of Breath #1 ea inhaler,sensor fluticasone propionate 50 2 spray intranasal BID allergy 08/12/23 02/04/24 Rx mcg/actuation nasal symptoms #16 grams spray,suspension (Flonase Allergy Relief) ondansetron 4 mg disintegrating 4 mg PO Q6H PRN nausea and 09/03/23 02/04/24 Rx tablet vomiting 5 days #20 tabs folic acid 1 mg tablet 1 mg PO DAILY #100 tabs 12/01/23 02/04/24 Rx thiamine HCl (vitamin B1) 100 mg 100 mg PO DAILY #100 tabs 12/01/23 02/04/24 Rx tablet oxycodone 10 mg tablet 10 mg PO BIDP PRN pain #60 tabs 12/29/23 02/04/24 Rx pantoprazole 40 mg tablet,delayed 40 mg PO DAILY #90 tabs 01/06/24 02/04/24 Rx release sucralfate 1 gram tablet (Carafate) 1 g PO BID Ulcers #180 tabs 01/21/24 02/04/24 Rx levetiracetam 500 mg tablet 500 mg PO BID #60 tabs 02/02/24 02/04/24 Rx (Keppra) ascorbic acid (vitamin C) 250 mg 250 mg PO DAILY 02/04/24 02/04/24 History tablet lorazepam 2 mg tablet 2 mg PO BIDP seizures 02/04/24 02/04/24 History New Prescriptions to Start Prescriptions: Allergies Allergy/AdvReac Type Severity Reaction Status Date / Time cephalexin [From Keflex] Allergy Mild Hives Verified 08/12/24 13:26 sulfamethoxazole Allergy Unknown Verified 12/29/23 13:26 [From BACTRIM] trimethoprim [From BACTRIM] Allergy Unknown Verified 12/29/23 13:26 Exam Data for Last 24 hours Vital signs and Labs for Last 24 Hours: Temp Pulse Resp BP Pulse Ox O2 Del Method 98.3 F 68 18 138/76 100 Room Air 02/04/24 16:18 02/04/24 18:50 02/04/24 16:18 02/04/24 18:50 02/04/24 18:50 02/04/24 16:18 Laboratory Results - last 24 hr 02/04/24 16:24: Urine Color Yellow, Urine Appearance Clear, Urine pH 6.5, Ur Specific [place] <= 1.005, Urine Protein Negative, Urine Glucose (UA) Negative, Urine Ketones Negative, Urine Blood Negative, Urine Nitrate Negative, Urine Bilirubin Negative, Urine Urobilinogen 0.2, Ur Leukocyte Esterase Negative, Urine RBC Occasional, Urine WBC Occasional, Ur Squamous Epith Cells Occasional 02/04/24 16:25: WBC 8.3, RBC 4.20 L, Hgb 14.1, Hct 42.4, MCV 101.0 H, MCH 33.6 H , MCHC 33.2, RDW 14.6, Plt Count 167, MPV 8.7, Neut % (Auto) 81.5 H, Lymph % (Auto) 9.9 L, [place] % (Auto) 6.0, Eos % (Auto) 2.3, Baso % (Auto) 0.4, Neut # (Auto) 6.8, Lymph # (Auto) 0.8, [place] # (Auto) 0.5, Eos # (Auto) 0.2, Baso # (Auto) 0.0, Sodium 119 L, Potassium 4.5, Chloride 89 L, Carbon Dioxide 23, Anion Gap 11.5, BUN 5 L, Creatinine 0.60 L, Estimated Creat Clear 103, Estimated GFR 138, Est GFR ( Amer) 167, Glucose 85, Calcium 8.7, Phosphorus 3.3, Magnesium 1.8, Total Bilirubin 1.1, AST 33, ALT 15, Alkaline Phosphatase 77, Total Protein 7.8, Albumin 4.9, Globulin 2.9, Albumin/Globulin Ratio 1.7, Lipase 521 H Temp Pulse Resp BP Pulse Ox O2 Del Method 97.6 F 89 16 117/70 99 Room Air 07/04/23 00:46 07/04/23 03:00 07/04/23 00:46 07/04/23 03:00 07/04/23 03:00 07/04/23 03:00 Laboratory Results - last 24 hr 07/04/23 01:06: WBC 10.2 D, RBC 4.78, Hgb 14.1, Hct 42.2, MCV 88.3, MCH 29.5, MCHC 33.4, RDW 17.0, Plt Count 212 D, MPV 9.9, Neut % (Auto) 73.7, Lymph % (Auto) 19.6, [place] % (Auto) 3.2, Eos % (Auto) 3.3, Baso % (Auto) 0.2, Neut # (Auto) 7.5, Lymph # (Auto) 2.0, [place] # (Auto) 0.3, Eos # (Auto) 0.3, Baso # (Auto) 0.0 07/04/23 01:22: Urine Color Yellow, Urine Appearance Clear, Urine pH 7.5, Ur Specific [place] 1.015, Urine Protein Negative, Urine Glucose (UA) Negative, Urine Ketones Negative, Urine Blood Negative, Urine Nitrate Negative, Urine Bilirubin Negative, Urine Urobilinogen 0.2, Ur Leukocyte Esterase Negative, Urine RBC None, Urine WBC None, Ur Squamous Epith Cells Occasional, Urine Bacteria Trace 07/04/23 01:30: Sodium 134 L, Potassium 4.2, Chloride 102, Carbon Dioxide 27, Anion Gap 9.2, BUN 9, Creatinine 0.60 L, Estimated Creat Clear 112, Estimated GFR 138, Est GFR ( Amer) 167, Glucose 105 H, Calcium 8.6, Total Bilirubin 0.6, AST 26, ALT 15, Alkaline Phosphatase 101, Total Protein 6.6, Albumin 3.7, Globulin 2.9, Albumin/Globulin Ratio 1.3, Lipase 1587 H I & O for Last 24 hours: Intake & Output 02/01/24 02/02/24 02/03/24 02/04/24 23:59 23:59 23:59 23:59 Weight 64.41 kg Intake & Output 07/01/23 07/02/23 07/03/23 07/04/23 23:59 23:59 23:59 23:59 Weight 58.967 kg Constitutional Constitutional: no acute distress, thin, cachectic and chronically ill appearing *Routine HEENT Exam Head: Present normocephalic Eye: Present EOMI and normal accommodation ENT: Present mucous membranes moist *Routine Neck Exam Neck: Present supple and full ROM *Routine Respiratory Exam Respiratory: Present normal respiratory effort; Absent accessory muscle use or rhonchi *Routine Cardiovascular Exam Cardiovascular: Present RRR and Normal S1 *Routine Abdominal Exam Abdominal: Present soft, normoactive bowel sounds and tenderness (LUQ); Absent rebound or guarding Comments: G tube in place in right abdomen *Routine Rectal Exam Rectal:: deferred *Routine Genitalia Exam Genitalia:: deferred *Routine Extremities Exam Extremities: Present full ROM Comments: thin *Routine Skin Exam Skin: Present intact *Routine Neurological Exam Neurological: Present alert, oriented X3, normal reflexes and moving all extremities; Absent altered mental status H&P: Result Imaging and Cardiology EKG: Status: image reviewed by me, Preliminary report and final report CT scan - abdomen: Status: image reviewed by me, Preliminary report and final report Assessment and Plan *Assessment and plan (1) Acute on chronic pancreatitis: Status: Acute Category: Medical Code(s): K85.90 - Acute pancreatitis without necrosis or infection, unspecified; K86.1 - Other chronic pancreatitis (2) Ileus: Status: Acute Category: Medical Code(s): K56.7 - Ileus, unspecified (3) Acute hyponatremia: Status: Acute Category: Medical Code(s): E87.1 - Hypo-osmolality and hyponatremia (4) Metastatic non-small cell lung cancer: Status: Acute Category: Medical Code(s): C34.90 - Malignant neoplasm of unspecified part of unspecified bronchus or lung (5) Pancreatic pseudocyst: Status: Acute Category: Medical Code(s): K86.3 - Pseudocyst of pancreas (6) Seizures: Status: Acute Category: Medical Code(s): R56.9 - Unspecified convulsions (7) COPD (chronic obstructive pulmonary disease): Status: Acute Category: Medical Code(s): J44.9 - Chronic obstructive pulmonary disease, unspecified (8) GERD (gastroesophageal reflux disease): Status: Acute Category: Medical Code(s): K21.9 - Gastro-esophageal reflux disease without esophagitis (9) Chronic alcohol abuse: Status: Acute Category: Medical Code(s): F10.10 - Alcohol abuse, uncomplicated (10) Severe protein-calorie malnutrition: Status: Inactive Category: Medical Code(s): E43 - Unspecified severe protein-calorie malnutrition Plan 58-year-old male with history of metastatic lung cancer, chronic alcohol induced pancreatitis, who presented to the ER with worsening abdominal pain. Patient referred epigastric abdominal pain radiating to his back and shoulders as well as nausea and constipation. Presents with acute abdominal pain and lipase around baseline. labs showed acute hyponatremia Na 119. Discussed case with the ER, concerning for ileus/ SBO. Requested admission for further management. Medicine agreed to admit for nutrition eval, pain control, and further management. Problems addressed as follows: SBO/ileus Acute on chronic pancreatitis presented with abdominal pain Pancreatic pseudocyst Chronic alcoholic pancreatitis Acute hyponatremia suspected poor intake and/or excessive loss -lipase around baseline -CT of the abdomen showing no acute inflammation of pancreas, pseudocyst remained stable. Concerning for SBO. -Gi consulted. -Repeat CBC, CMP, -monitor for Na and other electrolytes imbalances Chronic malnutrition/severe protein calorie malnutrition G-tube been removed -Patient tolerates p.o. fluids, will continue with clear liquid diet orally; Seizure disorder -Continue home Keppra 500 mg twice daily and Ativan 2 mg twice daily Metastatic non-small cell lung cancer, complicates his overall health. resume pain management. Oxy 10mg BID alcohol abuse continue daily drinker. monitor CIWA. alcohol withdrawal Full code p.o. clear fluids. avance as tolerated Lovenox 40 mg subcu daily. on Protonix
--- NOTE | 2024-02-04 19:50 | PC.NURSE ---
Called report to Wilner BRUNSON at this time.
[2024-02-04 19:54] LABS: HIV (1&2) Antibody Rapid NONREACTIVE (NONREACTIVE)
--- NOTE | 2024-02-04 20:38 | PC.NURSE ---
Patient arrived to floor via wheelchair from ED at 20:35.
[2024-02-04] MEDS: levETIRAcetam 500 MG TABLET PO (21:35)
[2024-02-04] MEDS: LORAZEPAM 2 MG 2 EACH PO (21:35)
[2024-02-04] MEDS: PATIENT'S OWN HOME MEDICATION (Oxycodone 10 mg tablet) 10 EACH PO (21:59)
[2024-02-04] MEDS: 0.9 % SODIUM CHLORIDE 1000ML 1,000 ML 50 ML IV (21:59)
[2024-02-04] MEDS: NICOTINE 21MG/24HR PATCH 21 MG TD (21:59)
[2024-02-05] MEDS: PANTOPRAZOLE 40MG TABLET 40 MG PO ×2 (03:14→20:59)
[2024-02-05 04:00] VITALS: BP 98/60; PULSE 80; RESP 16; TEMP 36.6; O2SAT 100; BMI 20.4
[2024-02-05 04:06] LABS: POC Glucose,Bedside 73 (70-110)
[2024-02-05] MEDS: LORazepam 1MG TABLET 1 MG PO ×3 (05:08→21:09)
[2024-02-05] MEDS: MORPHINE 2MG/ML SYRINGE 2 MG IV (06:06)
[2024-02-05 06:07] LABS: Basophils % 0.7 % (0.1-2.0); Eosinophils # 0.1 K/mm3 (0.0-0.4); Eosinophils % 1.5 % (0.1-12.0); Hemoglobin 13.6 g/dL (14.1-18.0); Lymphocytes # 0.4 K/mm3 (0.7-4.5); Lymphocytes % 11.7 % (10-50); Mean Corpuscular HGB Conc 33.2 g/dL (31.8-35.4); Mean Corpuscular Hemoglobin 33.7 pg (27.0-31.2); Mean Corpuscular Volume 101.2 fl (80-94); Mean Platelet Volume 8.1 fl (7.4-10.4); Monocytes # 0.3 K/mm3 (0.1-1.0); Monocytes % 7.6 % (1.7-9.3); Neutrophils # 2.9 K/mm3 (1.8-7.8); Neutrophils % 78.4 % (37.0-80.0); Platelet Count 97 K/mm3 (142-424); Red Blood Count 4.05 M/mm3 (4.60-6.20); Red Cell Distribution Width 14.3 % (11.5-17.5); White Blood Count 3.7 K/mm3 (4.8-10.8)
[2024-02-05] MEDS: ONDANSETRON 4MG/2ML VIAL 4 MG IV (06:07)
[2024-02-05 06:16] LABS: Alanine Aminotransferase 16 U/L (12-78); Albumin Level 3.6 g/dl (3.5-5.0); Albumin/Globulin Ratio 1.3 (1.1-1.8); Alkaline Phosphatase 60 U/L (38-126); Aspartate Amino Transferase 30 U/L (17-59); Bilirubin,Total 0.8 mg/dl (0.2-1.3); Blood Urea Nitrogen 8 mg/dl (9-20); Calcium 8.7 mg/dl (8.4-10.2); Carbon Dioxide 23 mmol/L (22.0-30.0); Chloride 96 mmol/L (98-107); Creatinine Clearance Estimated 116 mL/min (50-200); Estimated Glomerular Filt Rate 138 ml/min (>60); GFR (African American) 167 ML/MIN (>60); Globulin 2.8 g/dL (1.3-3.2); Glucose 136 mg/dl (74-100); Magnesium 1.7 mg/dl (1.6-2.3); Sodium 123 mmol/L (136-145); Total Protein,Serum 6.4 g/dl (6.3-8.2)
--- NOTE | 2024-02-05 06:16 | PC.NURSE ---
Pt is a&ox4 and has tolerated room air. Initial CIWA score of 2. On recheck it was 5. 1 mg Ativan given. Pt has complained of abdominal pain twice and was treated per jul. Pt has had ns going @50ml/hr. No complaints at this time, call light within reach.
[2024-02-05 06:36] LABS: Anion Gap 8.4 mEq/L (5-15); Potassium 4.4 mmoL/L (3.5-5.1)
[2024-02-05 07:37] VITALS: BP 97/62; PULSE 88; RESP 18; TEMP 36.4; O2SAT 98
[2024-02-05] MEDS: levETIRAcetam 500 MG TABLET PO ×2 (08:40→20:59)
[2024-02-05] MEDS: LIPASE/PROTEASE/AMYLASE 1 EACH CAPSULE.DR 2 EACH PO ×3 (08:40→16:44)
[2024-02-05] MEDS: FLUTICASONE PROP 50MCG NASAL SPRAY 16GM 2 SPRAY NS ×2 (08:41→20:59)
[2024-02-05] MEDS: FOLIC ACID 1MG TABLET 1 MG PO (08:41)
[2024-02-05] MEDS: ENOXAPARIN 40MG/0.4ML SYRINGE 40 MG SQ (08:41)
[2024-02-05] MEDS: THIAMINE 100MG TABLET 100 MG PO (08:41)
[2024-02-05] MEDS: SUCRALFATE 1GM TABLET 1 GM PO ×2 (08:41→20:59)
[2024-02-05] MEDS: ASCORBIC ACID 500MG TAB 500 MG PO (08:41)
--- NOTE | 2024-02-05 09:42 | HMH.PHAINT1 ---
Pharmacy Intervention Comments: HOME MEDICATION LIST VERIFIED USING LIST FROM OUTPATIENT PHARMACY
--- NOTE | 2024-02-05 10:33 | P.CONS_ITS ---
History of Present Illness *Admission Date: 02/04/24 *Reason for visit:: GI consulted for chronic pancreatitis *History of present illness: 58-year-old male with longstanding chronic pancreatitis for more than 10 years and does take pancreatic digestive enzymes (Pancrease or Creon) at home 2 capsules daily. The patient Did have an imaging study done yesterday (CAT scan of the abdomen and pelvis with contrast). This did show changes of chronic pancreatitis with decrease size of small pseudocyst adjacent to the pancreatic tail and head. There was moderate pancreatic atrophy with pancreatic calcifications. There is some fat stranding adjacent to the pancreas. There is no significant pancreatic ductal dilation or biliary ductal dilation. The patient continues to drink alcohol and smoke tobacco daily/regularly. The patient does take oxycodone at home. He has been admitted for intractable abdominal pain. The patient previously had acute on chronic pancreatitis and had pancreatic pseudocyst but these are reducing in size compared to previous imaging studies. The patient tells me today that over the course of time his pain has improved and today his pain is much better. He has been on morphine sulfate. He has no fever or chills. This is a 58-year-old male with a history of chronic pancreatitis, pancreatic pseudocyst, small bowel obstruction, cachexia, prior gastrostomy tube that is since been removed, and metastatic lung cancer to the bone presenting to the emergency department for evaluation with concern for pancreas pain. He states that his pancreas is hurting really bad in his epigastric region and he is having intractable nausea and vomiting. He notes his emesis is kind of green. He denies fevers, chills, or other concerns. He does note that he had a decrease in bowel movements and gas, and he can remember when his last bowel movement was. On medical record review, he has been seen for this multiple times in the past with flares of pancreatitis [facility] Disclaimer: The information contained in this section may have been updated after the patient was seen, as this information can be updated by other users. Medical History (Updated 02/05/24 @ 12:03 by Tino Jack MD) Pancreatic pseudocyst Chronic alcohol abuse Bipolar 1 disorder Seizures Abdominal aneurysm Excessive cerumen in left ear canal SBO (small bowel obstruction) Acute pancreatitis Cachexia Acute on chronic pancreatitis Gastrostomy tube dependent Metastatic non-small cell lung cancer Severe protein-calorie malnutrition Lung cancer metastatic to bone Abdominal pain Pancreatic pseudocyst Abdominal pain Bone marrow disorder Cirrhosis COPD (chronic obstructive pulmonary disease) GERD (gastroesophageal reflux disease) Gastric outlet obstruction History of lung cancer Pancreatic pseudocyst Alcoholic pancreatitis Anxiety History of lung cancer Alcohol abuse Pancreatitis, acute Gallstone pancreatitis Pancreatitis Hypokalemia Surgical History (Updated 02/04/24 @ 21:14 by Karina Castellon RN) History of cholecystectomy Hx of cholecystectomy Family History Other Cancer of lung Emphysema lung Social History (Updated 02/04/24 @ 21:16 by Karina Castellon RN) Smoking Status: Current every day smoker tobacco type: cigarettes packs per day: 3 alcohol intake: current alcohol intake frequency: a few times a week substance use type: denies use current occupational status: unemployed Travel in the last 8 weeks: None household members: family housing: house current occupational exposures/hazards: No caffeine: No Meds Home Medications and Allergies Home Medications ?Medication ?Instructions ?Recorded ?Confirmed ?Type [id number]-[id number] 2 cap PO TIDWMEAL Pancreatic 02/23/23 02/04/24 History 36,000-114,000-180,000 unit insufficiency capsule,delay rel albuterol sulfate 90 mcg/actuation 1 inh inhalation Q4HP PRN 06/02/23 02/04/24 Rx breath activated powder Shortness Of Breath #1 ea inhaler,sensor fluticasone propionate 50 2 spray intranasal BID allergy 08/12/23 02/04/24 Rx mcg/actuation nasal symptoms #16 grams spray,suspension (Flonase Allergy Relief) folic acid 1 mg tablet 1 mg PO DAILY #100 tabs 12/01/23 02/04/24 Rx thiamine HCl (vitamin B1) 100 mg 100 mg PO DAILY #100 tabs 12/01/23 02/04/24 Rx tablet oxycodone 10 mg tablet 10 mg PO BIDP PRN pain #60 tabs 12/29/23 02/04/24 Rx pantoprazole 40 mg tablet,delayed 40 mg PO DAILY #90 tabs 01/06/24 02/04/24 Rx release sucralfate 1 gram tablet (Carafate) 1 g PO BID Ulcers #180 tabs 01/21/24 02/04/24 Rx levetiracetam 500 mg tablet 500 mg PO BID #60 tabs 02/02/24 02/04/24 Rx (Keppra) ascorbic acid (vitamin C) 250 mg 250 mg PO DAILY 02/04/24 02/04/24 History tablet lorazepam 2 mg tablet 2 mg PO BIDP PRN Anxiety 02/04/24 02/04/24 History New Prescriptions to Start Prescriptions: Allergies Allergy/AdvReac Type Severity Reaction Status Date / Time cephalexin [From Keflex] Allergy Mild Hives Verified 12/29/23 13:26 sulfamethoxazole Allergy Unknown Verified 12/29/23 13:26 [From BACTRIM] trimethoprim [From BACTRIM] Allergy Unknown Verified 12/29/23 13:26 Exam (Inpt) Vital signs and Labs for Last 24 Hours: Temp Pulse Resp BP Pulse Ox O2 Del Method 97.6 F 88 18 97/62 L 98 Room Air 02/05/24 07:37 02/05/24 07:37 02/05/24 07:37 02/05/24 07:37 02/05/24 07:37 02/05/24 07:37 Laboratory Results - last 24 hr 02/04/24 16:24: Urine Color Yellow, Urine Appearance Clear, Urine pH 6.5, Ur Specific [place] <= 1.005, Urine Protein Negative, Urine Glucose (UA) Negative, Urine Ketones Negative, Urine Blood Negative, Urine Nitrate Negative, Urine Bilirubin Negative, Urine Urobilinogen 0.2, Ur Leukocyte Esterase Negative, Urine RBC Occasional, Urine WBC Occasional, Ur Squamous Epith Cells Occasional 02/04/24 16:25: WBC 8.3, RBC 4.20 L, Hgb 14.1, Hct 42.4, MCV 101.0 H, MCH 33.6 H , MCHC 33.2, RDW 14.6, Plt Count 167, MPV 8.7, Neut % (Auto) 81.5 H, Lymph % (Auto) 9.9 L, [place] % (Auto) 6.0, Eos % (Auto) 2.3, Baso % (Auto) 0.4, Neut # (Auto) 6.8, Lymph # (Auto) 0.8, [place] # (Auto) 0.5, Eos # (Auto) 0.2, Baso # (Auto) 0.0, Sodium 119 L, Potassium 4.5, Chloride 89 L, Carbon Dioxide 23, Anion Gap 11.5, BUN 5 L, Creatinine 0.60 L, Estimated Creat Clear 103, Estimated GFR 138, Est GFR ( Amer) 167, Glucose 85, Calcium 8.7, Phosphorus 3.3, Magnesium 1.8, Total Bilirubin 1.1, AST 33, ALT 15, Alkaline Phosphatase 77, Total Protein 7.8, Albumin 4.9, Globulin 2.9, Albumin/Globulin Ratio 1.7, Lipase 521 H, HIV 1&2 Antibody Rapid Nonreactive 02/05/24 03:57: POC Glucose 73 02/05/24 05:19: WBC 3.7 L D, RBC 4.05 L, Hgb 13.6 L, Hct 41.0 L, MCV 101.2 H, M CH 33.7 H, MCHC 33.2, RDW 14.3, Plt Count 97 L D, MPV 8.1, Neut % (Auto) 78.4, Lymph % (Auto) 11.7, [place] % (Auto) 7.6, Eos % (Auto) 1.5, Baso % (Auto) 0.7, Neut # (Auto) 2.9, Lymph # (Auto) 0.4 L, [place] # (Auto) 0.3, Eos # (Auto) 0.1, Baso # (Auto) 0.0, Sodium 123 L, Potassium 4.4, Chloride 96 L, Carbon Dioxide 23, Anion Gap 8.4, BUN 8 L D, Creatinine 0.60 L, Estimated Creat Clear 116, Estimated GFR 138, Est GFR ( Amer) 167, Glucose 136 H D, Calcium 8.7, Magnesium 1.7, Total Bilirubin 0.8, AST 30, ALT 16, Alkaline Phosphatase 60, Total Protein 6.4, Albumin 3.6 D, Globulin 2.8, Albumin/Globulin Ratio 1.3 I & O for Labs for Last 24 Hours: Intake & Output 02/02/24 02/03/24 02/04/24 02/05/24 23:59 23:59 23:59 23:59 Output Total 1799 / 1800 Balance -1800 / -1800 Weight 134 lb 11.2 oz 134 lb 11.204 oz GI: Present tenderness and normal bowel sounds Comments:: Normoactive bowel sounds, soft thin scaphoid abdomen moderately tender without rebound or guarding, no masses Results Labs 02/05/24 05:19 02/05/24 05:19 Labs: Laboratory Results - last 24 hr 02/04/24 16:24: Urine Color Yellow, Urine Appearance Clear, Urine pH 6.5, Ur Specific [place] <= 1.005, Urine Protein Negative, Urine Glucose (UA) Negative, Urine Ketones Negative, Urine Blood Negative, Urine Nitrate Negative, Urine Bilirubin Negative, Urine Urobilinogen 0.2, Ur Leukocyte Esterase Negative, Urine RBC Occasional, Urine WBC Occasional, Ur Squamous Epith Cells Occasional 02/04/24 16:25: WBC 8.3, RBC 4.20 L, Hgb 14.1, Hct 42.4, MCV 101.0 H, MCH 33.6 H , MCHC 33.2, RDW 14.6, Plt Count 167, MPV 8.7, Neut % (Auto) 81.5 H, Lymph % (Auto) 9.9 L, [place] % (Auto) 6.0, Eos % (Auto) 2.3, Baso % (Auto) 0.4, Neut # (Auto) 6.8, Lymph # (Auto) 0.8, [place] # (Auto) 0.5, Eos # (Auto) 0.2, Baso # (Auto) 0.0, Sodium 119 L, Potassium 4.5, Chloride 89 L, Carbon Dioxide 23, Anion Gap 11.5, BUN 5 L, Creatinine 0.60 L, Estimated Creat Clear 103, Estimated GFR 138, Est GFR ( Amer) 167, Glucose 85, Calcium 8.7, Phosphorus 3.3, Magnesium 1.8, Total Bilirubin 1.1, AST 33, ALT 15, Alkaline Phosphatase 77, Total Protein 7.8, Albumin 4.9, Globulin 2.9, Albumin/Globulin Ratio 1.7, Lipase 521 H, HIV 1&2 Antibody Rapid Nonreactive 02/05/24 03:57: POC Glucose 73 02/05/24 05:19: WBC 3.7 L D, RBC 4.05 L, Hgb 13.6 L, Hct 41.0 L, MCV 101.2 H, M CH 33.7 H, MCHC 33.2, RDW 14.3, Plt Count 97 L D, MPV 8.1, Neut % (Auto) 78.4, Lymph % (Auto) 11.7, [place] % (Auto) 7.6, Eos % (Auto) 1.5, Baso % (Auto) 0.7, Neut # (Auto) 2.9, Lymph # (Auto) 0.4 L, [place] # (Auto) 0.3, Eos # (Auto) 0.1, Baso # (Auto) 0.0, Sodium 123 L, Potassium 4.4, Chloride 96 L, Carbon Dioxide 23, Anion Gap 8.4, BUN 8 L D, Creatinine 0.60 L, Estimated Creat Clear 116, Estimated GFR 138, Est GFR ( Amer) 167, Glucose 136 H D, Calcium 8.7, Magnesium 1.7, Total Bilirubin 0.8, AST 30, ALT 16, Alkaline Phosphatase 60, Total Protein 6.4, Albumin 3.6 D, Globulin 2.8, Albumin/Globulin Ratio 1.3 Assessment and Plan *Assessment and plan (1) Chronic pancreatitis due to chronic alcoholism: Status: Acute Category: Medical Code(s): K86.0 - Alcohol-induced chronic pancreatitis; F10.20 - Alcohol dependence, uncomplicated (2) Periumbilical abdominal pain: Status: Acute Category: Medical Code(s): R10.33 - Periumbilical pain (3) Pancreatic pseudocyst: Status: Acute Category: Medical Code(s): K86.3 - Pseudocyst of pancreas Plan 1. Moderate to severe chronic pancreatitis. The patient does have a reduction in size of pseudocyst with improved findings of fluid collection on imaging. He does have pancreatic atrophy and pancreatic calcifications. Chronic pancreatitis is chronic inflammation within the pancreas which results in damage, destruction and scar tissue accumulation within the pancreas. Depending on the severity, a variable amount of the pancreas may become scarred forever and the function of this portion of the pancreas is lost. This can result in a variety of symptoms including abdominal pain, indigestion, diarrhea and weight loss. Half of these cases are due to alcohol consumption over many years. In most of the other cases, there are other factors that may contribute including cigarette smoking, genetic factors, autoimmune factors, former abdominal trauma or blockage of the pancreatic ductal system. Sometimes, the cause may remain unknown. The type of damage is often variable and unpredictable. The main pancreatic duct is often involved with dilation or strictures. Sometimes there are calcium deposits within the pancreas which can be seen on x-rays and CAT scans. In up to half of patients with chronic pancreatitis, the pancreas becomes damaged to the point that it is no longer able to produce the pancreas enzymes necessary to digest food properly. When this happens, the patient is not getting the proper vitamins and nutrients from the food that they eat leading to vitamin and mineral deficiencies and malabsorption and in some cases, unintentional weight loss. The treatment of chronic pancreatitis can sometimes be challenging. The goal is to reduce pain and improve nutrition and weight. Pancreatic enzymes are often given and can help with digestion. The use of these pancreatic enzyme supplements helps to target weight loss, malnutrition and malabsorption. The replacement enzymes aid in absorbing the vitamins and nutrients from ingested food. The pancreas generally makes 700,000 IU of amylase per meal and each capsule of Creon has 36,000. He is only on 2 capsules daily. We use 1 to 2 capsules for mild but for severe chronic pancreatitis he will likely need 4 to 6 capsules of pancreatic enzyme replacement/Creon. His chief complaint is chronic abdominal pain secondary to the chronic pancreatitis. I do feel that if this persist, he should be with the pain clinic. We try to avoid opioids if possible and initiate nonnarcotic analgesics with even NSAIDs but also adjunctive agents such as gabapentin. The use of antioxidants which have been shown to reduce pain even though the effect is small. We generally use a combination of vitamin E 200 IU with vitamin C, beta- carotene and selenium. The patient does not have a dilated pancreatic duct on imaging. For dilated pancreatic duct, ERCP with stenting or dilation of strictures can be helpful. Sometimes surgical treatments including [place]/lateral pancreaticojejunostomy are very useful in controlling pain. However, this is not indicated in this patient with a nondilated duct. In patients with a nondilated pancreatic duct the approach after failure of medicine would be celiac plexus block and eventual surgical resection. Given the fact that the patient states that his symptoms have improved over time, I do not feel that this is necessary but I do feel that he should be managed in a pain clinic so that he does not continue to increase need for opioids.
--- NOTE | 2024-02-05 11:53 | SW/DCPLANNER ---
I spoke w/ this patient regarding plans once medically stable for discharge. Patient stated that he will have transportation home. Patient also stated that he is interested in AA information. I have provided this patient w/ [facility] resource list. Patient does have an upcoming appointment w/ [facility] on 02/09 in [place]. Patient does not have any further questions/needs at this time.
[2024-02-05 11:54] VITALS: BP 98/63
--- NOTE | 2024-02-05 12:27 | DIET.NUTRFU ---
Addendum entered by Dixie Coy RD, LD 02/05/24 12:30: Wt on 06/2023 was 58kg with CBW of 61kg, therefore does not qualify for SPCM at this time. Is at high risk and will monitor po intake Original Note: Patient is at risk for malnutrition secondary to EtOH and previous swallowing issues. He previously had a PEG for nutrition and had it removed in September 2023. He reports tolerating a soft diet at home, does not wear teeth. Eat hamburgers alot and cornflakes in AM. Encouarged more protein intake, 3 meals/day with protein at all meals. Based on wt hx he is gaining wt
[2024-02-05 12:29] LABS: Chloride 99 mmol/L (98-107); Potassium 4.1 mmoL/L (3.5-5.1); Sodium 127 mmol/L (136-145)
[2024-02-05 12:32] LABS: Blood Urea Nitrogen 7 mg/dl (9-20); Creatinine Clearance Estimated 116 mL/min (50-200); Estimated Glomerular Filt Rate 138 ml/min (>60); GFR (African American) 167 ML/MIN (>60)
[2024-02-05 12:33] LABS: Calcium 8.8 mg/dl (8.4-10.2); Glucose 80 mg/dl (74-100)
[2024-02-05 13:46] VITALS: BMI 20.4
[2024-02-05] MEDS: OXYCODONE 5MG IMMEDIATE RELEASE TABLET 10 MG PO ×2 (14:37→21:00)
[2024-02-05 14:52] LABS: Anion Gap 10.1 mEq/L (5-15); Carbon Dioxide 22 mmol/L (22.0-30.0)
[2024-02-05 15:55] VITALS: BP 100/62; PULSE 82; RESP 16; TEMP 36.9; O2SAT 99
[2024-02-05] MEDS: MULTIVITAMIN TABLET 1 EACH PO (16:44)
[2024-02-05] MEDS: 0.9 % SODIUM CHLORIDE 1000ML 1,000 ML 50 ML IV (17:39)
--- NOTE | 2024-02-05 17:59 | PC.NURSE ---
PT IS RESTING IN BED. ALERT AND ORIENTED X4. TOLERATING FULL LIQUIDS WELL. MEDICATED PER MAR FOR ABDOMINAL DISCOMFORT. LAST CIWA SCORE WAS 5. LUNG SOUNDS CLEAR. ABDOMINAL TENDERNESS NOTED WITH HYPOACTIVE BOWEL SOUNDS. BP HAS BEEN LOW T/O THE SHIFT. WILL CONTINUE TO MONITOR.
--- NOTE | 2024-02-05 18:06 | EXP.PN ---
Subjective *Date: 02/05/24 *Time: 18:06 Interval history: Patient was lying in bed comfortably this morning. Very pleasant. States his abdominal pain is much better this morning. Tolerating full liquid diet. Denies chest pain, shortness of breath. Exam Data for Last 24 hours Vital signs and Labs for Last 24 Hours: Temp Pulse Resp BP Pulse Ox O2 Del Method 98.4 F 82 16 100/62 L 99 Room Air 02/05/24 15:55 02/05/24 15:55 02/05/24 15:55 02/05/24 15:55 02/05/24 15:55 02/05/24 17:00 Laboratory Results - last 24 hr 02/04/24 16:25: HIV 1&2 Antibody Rapid Nonreactive 02/05/24 03:57: POC Glucose 73 02/05/24 05:19: WBC 3.7 L D, RBC 4.05 L, Hgb 13.6 L, Hct 41.0 L, MCV 101.2 H, MCH 33.7 H, MCHC 33.2, RDW 14.3, Plt Count 97 L D, MPV 8.1, Neut % (Auto) 78.4, Lymph % (Auto) 11.7, [place] % (Auto) 7.6, Eos % (Auto) 1.5, Baso % (Auto) 0.7, Neut # (Auto) 2.9, Lymph # (Auto) 0.4 L, [place] # (Auto) 0.3, Eos # (Auto) 0.1, Baso # (Auto) 0.0, Sodium 123 L, Potassium 4.4, Chloride 96 L, Carbon Dioxide 23, Anion Gap 8.4, BUN 8 L D, Creatinine 0.60 L, Estimated Creat Clear 116, Estimated GFR 138, Est GFR ( Amer) 167, Glucose 136 H D, Calcium 8.7, Magnesium 1.7, Total Bilirubin 0.8, AST 30, ALT 16, Alkaline Phosphatase 60, Total Protein 6.4, Albumin 3.6 D, Globulin 2.8, Albumin/Globulin Ratio 1.3 02/05/24 12:12: Sodium 127 L, Potassium 4.1, Chloride 99, Carbon Dioxide 22, Anion Gap 10.1, BUN 7 L, Creatinine 0.60 L, Estimated Creat Clear 116, Estimated GFR 138, Est GFR ( Amer) 167, Glucose 80 D, Calcium 8.8 I & O for Last 24 hours: Intake & Output 02/02/24 02/03/24 02/04/24 02/05/24 23:59 23:59 23:59 23:59 Intake Total 1190 / 1190 Output Total 3000 / 3000 Balance -1810 / -1810 Weight 61.099 kg 61.09 kg Constitutional Constitutional: no acute distress *Routine HEENT Exam Head: Present normocephalic Eye: Present EOMI and PERRL ENT: Present mucous membranes moist *Routine Neck Exam Neck: Present supple; Absent lymphadenopathy *Routine Respiratory Exam Respiratory: Present CTA bilaterally *Routine Cardiovascular Exam Cardiovascular: Present RRR *Routine Abdominal Exam Abdominal: Present soft, normoactive bowel sounds and tenderness Comments: Mild epigastric abdominal tenderness. *Routine Extremities Exam Extremities: Absent cyanosis, clubbing or edema *Routine Skin Exam Skin: Present warm; Absent rash *Routine Neurological Exam Neurological: Present alert and oriented X3 Assessment and Plan *Assessment and plan (1) Acute on chronic pancreatitis: Status: Acute Category: Medical Code(s): K85.90 - Acute pancreatitis without necrosis or infection, unspecified; K86.1 - Other chronic pancreatitis (2) Ileus: Status: Acute Category: Medical Code(s): K56.7 - Ileus, unspecified (3) Acute hyponatremia: Status: Acute Category: Medical Code(s): E87.1 - Hypo-osmolality and hyponatremia (4) Metastatic non-small cell lung cancer: Status: Acute Category: Medical Code(s): C34.90 - Malignant neoplasm of unspecified part of unspecified bronchus or lung (5) Pancreatic pseudocyst: Status: Acute Category: Medical Code(s): K86.3 - Pseudocyst of pancreas (6) Seizures: Status: Acute Category: Medical Code(s): R56.9 - Unspecified convulsions (7) COPD (chronic obstructive pulmonary disease): Status: Acute Category: Medical Code(s): J44.9 - Chronic obstructive pulmonary disease, unspecified (8) GERD (gastroesophageal reflux disease): Status: Acute Category: Medical Code(s): K21.9 - Gastro-esophageal reflux disease without esophagitis (9) Chronic alcohol abuse: Status: Acute Category: Medical Code(s): F10.10 - Alcohol abuse, uncomplicated (10) Severe protein-calorie malnutrition: Status: Inactive Category: Medical Code(s): E43 - Unspecified severe protein-calorie malnutrition Plan 58-year-old male with history of metastatic lung cancer, chronic alcohol induced pancreatitis, who presented to the ER with worsening abdominal pain. Patient referred epigastric abdominal pain radiating to his back and shoulders as well as nausea and constipation. Presents with acute abdominal pain and lipase around baseline. labs showed acute hyponatremia Na 119. Discussed case with the ER, concerning for ileus/ SBO. Requested admission for further management. Medicine agreed to admit for nutrition eval, pain control, and further management. Problems addressed as follows: #Hyponatremia ? Likely secondary to beer potomania as patient states he has been drinking more than normal before admission. ? Initial sodium, 119 improved to 127 after 20 hours of fluid restriction. ? Continue fluid restriction, recheck BMP every 8 hours. ? Patient is alert and oriented x 3, no signs of encephalopathy. No seizures. Ileus versus enteritis, resolving Chronic alcoholic pancreatitis presented with abdominal pain, improving Pancreatic pseudocyst, chronic -lipase around baseline -CT of the abdomen showing no acute inflammation of pancreas, pseudocyst remained stable. Also showed scattered mildly dilated small bowel loops possibly consistent with ileus or enteritis. -Gi consulted, appreciate recommendations. ? Continue pancreatic enzymes, multivitamins. ? Patient states he feels better today, including abdominal pain. Tolerating full liquid diet appropriately. Follow-up bowel movement ? Will advance to low residue diet. #Chronic bronchitis ? Longstanding history of smoking, and patient reports several month history of clear productive cough worse when laying on his side and better when laying on his back. ? Denies peripheral edema, orthopnea, PND. ? Started Spiriva, will need follow-up with PCP. Chronic malnutrition/severe protein calorie malnutrition G-tube been removed -Patient tolerates p.o. fluids Seizure disorder -Continue home Keppra 500 mg twice daily and Ativan 2 mg twice daily Metastatic non-small cell lung cancer, complicates his overall health. resume pain management. Oxy 10mg BID alcohol abuse continue daily drinker. monitor CIWA. alcohol withdrawal Full code p.o. clear fluids. avance as tolerated Lovenox 40 mg subcu daily. on Protonix
[2024-02-05 20:00] VITALS: BP 103/63; PULSE 83; RESP 16; TEMP 37; O2SAT 99
[2024-02-05 20:15] LABS: Chloride 101 mmol/L (98-107); Potassium 4.3 mmoL/L (3.5-5.1); Sodium 128 mmol/L (136-145)
[2024-02-05 20:18] LABS: Anion Gap 6.3 mEq/L (5-15); Blood Urea Nitrogen 8 mg/dl (9-20); Calcium 8.7 mg/dl (8.4-10.2); Carbon Dioxide 25 mmol/L (22.0-30.0); Creatinine Clearance Estimated 99 mL/min (50-200); Estimated Glomerular Filt Rate 116 ml/min (>60); GFR (African American) 140 ML/MIN (>60); Glucose 152 mg/dl (74-100)
[2024-02-05] MEDS: NICOTINE 21MG/24HR PATCH 21 MG TD (21:00)
[2024-02-06 04:00] VITALS: BP 127/72; PULSE 76; RESP 18; TEMP 36.6; O2SAT 98; BMI 20.4
--- NOTE | 2024-02-06 04:22 | PC.NURSE ---
58 yo male pt has remained A/O X 4. He has voided per urinal with no BM. Pt reported pain almost a 10 earlier in shift for which he was medicated with oxycodone. Pt also request Ativan for anxiety. CIWA has been 2-5 through the night. He reported at one point feeling like his heart was racing but VS were all WNL for pt. Pt has denied further complaints through the night
[2024-02-06 04:25] LABS: Chloride 101 mmol/L (98-107); Potassium 4.2 mmoL/L (3.5-5.1); Sodium 129 mmol/L (136-145)
[2024-02-06 04:28] LABS: Anion Gap 7.2 mEq/L (5-15); Blood Urea Nitrogen 6 mg/dl (9-20); Carbon Dioxide 25 mmol/L (22.0-30.0); Creatinine Clearance Estimated 116 mL/min (50-200); Estimated Glomerular Filt Rate 138 ml/min (>60); GFR (African American) 167 ML/MIN (>60); Glucose 107 mg/dl (74-100)
[2024-02-06] MEDS: TIOTROPIUM 18MCG/PUFF INHALER 1 CAP IH (06:25)
[2024-02-06 08:00] VITALS: BP 102/59; PULSE 71; RESP 15; TEMP 36.5; O2SAT 99
[2024-02-06] MEDS: LORazepam 1MG TABLET 1 MG PO (08:09)
[2024-02-06] MEDS: THIAMINE 100MG TABLET 100 MG PO (08:10)
[2024-02-06] MEDS: SUCRALFATE 1GM TABLET 1 GM PO (08:10)
[2024-02-06] MEDS: ASCORBIC ACID 500MG TAB 500 MG PO (08:10)
[2024-02-06] MEDS: levETIRAcetam 500 MG TABLET PO (08:10)
[2024-02-06] MEDS: LIPASE/PROTEASE/AMYLASE 1 EACH CAPSULE.DR 2 EACH PO ×2 (08:10→12:09)
[2024-02-06] MEDS: FLUTICASONE PROP 50MCG NASAL SPRAY 16GM 2 SPRAY NS (08:10)
[2024-02-06] MEDS: FOLIC ACID 1MG TABLET 1 MG PO (08:10)
[2024-02-06 08:26] LABS: HCV Ab Non Reactive (Non Reactive)
[2024-02-06] MEDS: 0.9 % SODIUM CHLORIDE 1000ML 1,000 ML 50 ML IV (11:49)
[2024-02-06 12:33] LABS: Chloride 97 mmol/L (98-107); Sodium 130 mmol/L (136-145)
[2024-02-06 12:34] LABS: Potassium 3.9 mmoL/L (3.5-5.1)
[2024-02-06 12:37] LABS: Anion Gap 11.9 mEq/L (5-15); Blood Urea Nitrogen 5 mg/dl (9-20); Calcium 9.2 mg/dl (8.4-10.2); Carbon Dioxide 25 mmol/L (22.0-30.0); Creatinine Clearance Estimated 116 mL/min (50-200); Estimated Glomerular Filt Rate 138 ml/min (>60); GFR (African American) 167 ML/MIN (>60); Glucose 111 mg/dl (74-100)
--- NOTE | 2024-02-10 14:05 | CARE MANAGER ---
Contacted patient related to hospital discharge. He states he is feeling better. He doesn't have any new medications and is aware of follow up appointment. Denies any questions or concerns at this time. NANNETTE Soares
--- NOTE | 2024-02-18 21:52 | EXP.DC.SUM ---
General Admission date:: 02/04/24 HPI HPI HPI: 58-year-old male with longstanding chronic pancreatitis for more than 10 years and does take pancreatic digestive enzymes (Pancrease or Creon) at home 2 capsules daily. The patient Did have an imaging study done yesterday (CAT scan of the abdomen and pelvis with contrast). This did show changes of chronic pancreatitis with decrease size of small pseudocyst adjacent to the pancreatic tail and head. There was moderate pancreatic atrophy with pancreatic calcifications. There is some fat stranding adjacent to the pancreas. There is no significant pancreatic ductal dilation or biliary ductal dilation. The patient continues to drink alcohol and smoke tobacco daily/regularly. The patient does take oxycodone at home. He has been admitted for intractable abdominal pain. The patient previously had acute on chronic pancreatitis and had pancreatic pseudocyst but these are reducing in size compared to previous imaging studies. The patient tells me today that over the course of time his pain has improved and today his pain is much better. He has been on morphine sulfate. He has no fever or chills. This is a 58-year-old male with a history of chronic pancreatitis, pancreatic pseudocyst, small bowel obstruction, cachexia, prior gastrostomy tube that is since been removed, and metastatic lung cancer to the bone presenting to the emergency department for evaluation with concern for pancreas pain. He states that his pancreas is hurting really bad in his epigastric region and he is having intractable nausea and vomiting. He notes his emesis is kind of green. He denies fevers, chills, or other concerns. He does note that he had a decrease in bowel movements and gas, and he can remember when his last bowel movement was. On medical record review, he has been seen for this multiple times in the past with flares of pancreatitis Hospital Course Hospital Course Hospital Course: 58-year-old male with history of metastatic lung cancer, chronic alcohol induced pancreatitis, who presented to the ER with worsening abdominal pain. Patient referred epigastric abdominal pain radiating to his back and shoulders as well as nausea and constipation. Presents with acute abdominal pain and lipase around baseline. labs showed acute hyponatremia Na 119. Discussed case with the ER, concerning for ileus/ SBO. Requested admission for further management. Medicine agreed to admit for nutrition eval, pain control, and further management. Problems addressed as follows: #Alcohol use disorder #Hyponatremia ? Likely secondary to beer potomania as patient states he has been drinking more than normal before admission. ? Initial sodium, 119 improved to 130 with fluid restriction. ? Patient is alert and oriented x 3, no signs of encephalopathy. Initiated on CIWA protocol, no seizures. Ileus versus enteritis, resolving Chronic alcoholic pancreatitis presented with abdominal pain, improving Pancreatic pseudocyst, chronic -lipase around baseline -CT of the abdomen showing no acute inflammation of pancreas, pseudocyst remained stable. Also showed scattered mildly dilated small bowel loops possibly consistent with ileus or enteritis. -Gi consulted, recommended increasing dose of pancreatic enzymes. ? Patient states he feels better today, including abdominal pain. Tolerating full liquid diet appropriately and having bowel movements. #Chronic bronchitis ? Longstanding history of smoking, and patient reports several month history of clear productive cough worse when laying on his side and better when laying on his back. ? Denies peripheral edema, orthopnea, PND. ? Started Spiriva, will need follow-up with PCP. Chronic malnutrition/severe protein calorie malnutrition G-tube been removed -Patient tolerates p.o. fluids Seizure disorder -Continue home Keppra 500 mg twice daily and Ativan 2 mg twice daily Metastatic non-small cell lung cancer, complicates his overall health. resume pain management. Oxy 10mg BID Exam Data for Last 24 hours Vital signs and Labs for Last 24 Hours: Temp Pulse Resp BP Pulse Ox O2 Del Method 97.7 F 71 15 102/59 L 99 Room Air 02/06/24 08:00 02/06/24 08:00 02/06/24 08:00 02/06/24 08:00 02/06/24 08:00 02/06/24 12:45 Constitutional Constitutional: no acute distress *Routine HEENT Exam Head: Present normocephalic Eye: Present EOMI and PERRL ENT: Present mucous membranes moist *Routine Neck Exam Neck: Present supple; Absent lymphadenopathy *Routine Respiratory Exam Respiratory: Present CTA bilaterally *Routine Cardiovascular Exam Cardiovascular: Present RRR *Routine Abdominal Exam Abdominal: Present soft, normoactive bowel sounds and tenderness Comments: Mild epigastric abdominal tenderness. *Routine Extremities Exam Extremities: Absent cyanosis, clubbing or edema *Routine Skin Exam Skin: Present warm; Absent rash *Routine Neurological Exam Neurological: Present alert and oriented X3 DS: Diagnosis Discharge Diagnosis (1) Acute on chronic pancreatitis: Status: Inactive Code(s): K85.90 - Acute pancreatitis without necrosis or infection, unspecified; K86.1 - Other chronic pancreatitis (2) Ileus: Status: Resolved Code(s): K56.7 - Ileus, unspecified (3) Acute hyponatremia: Status: Acute Code(s): E87.1 - Hypo-osmolality and hyponatremia (4) Metastatic non-small cell lung cancer: Status: Inactive Code(s): C34.90 - Malignant neoplasm of unspecified part of unspecified bronchus or lung (5) Pancreatic pseudocyst: Status: Acute Code(s): K86.3 - Pseudocyst of pancreas (6) Seizures: Status: Resolved Code(s): R56.9 - Unspecified convulsions (7) COPD (chronic obstructive pulmonary disease): Status: Acute Code(s): J44.9 - Chronic obstructive pulmonary disease, unspecified (8) GERD (gastroesophageal reflux disease): Status: Acute Code(s): K21.9 - Gastro-esophageal reflux disease without esophagitis (9) Chronic alcohol abuse: Status: Acute Code(s): F10.10 - Alcohol abuse, uncomplicated (10) Severe protein-calorie malnutrition: Status: Inactive Code(s): E43 - Unspecified severe protein-calorie malnutrition Meds Home Medications and Allergies Home Medications ?Medication ?Instructions ?Recorded ?Confirmed ?Type fluticasone propionate 50 2 spray intranasal BID allergy 08/12/23 02/12/24 Rx mcg/actuation nasal symptoms #16 grams spray,suspension (Flonase Allergy Relief) folic acid 1 mg tablet 1 mg PO DAILY #100 tabs 12/01/23 02/12/24 Rx thiamine HCl (vitamin B1) 100 mg 100 mg PO DAILY #100 tabs 12/01/23 02/12/24 Rx tablet pantoprazole 40 mg tablet,delayed 40 mg PO DAILY #90 tabs 01/06/24 02/12/24 Rx release sucralfate 1 gram tablet (Carafate) 1 g PO BID Ulcers #180 tabs 01/21/24 02/12/24 Rx ascorbic acid (vitamin C) 250 mg 250 mg PO DAILY 02/04/24 02/12/24 History tablet xatavw-[id number] 6 cap PO TIDWMEAL Pancreatic 02/06/24 02/12/24 Rx 36,000-114,000-180,000 unit insufficiency 30 days #540 caps capsule,delay rel oxycodone 10 mg tablet 10 mg PO BIDP PRN pain #60 tabs 02/06/24 02/12/24 Rx levetiracetam 500 mg tablet See Rx Instructions .Route 02/09/24 02/12/24 Rx .COMPLEX #60 tabs albuterol sulfate 90 mcg/actuation 1 inh inhalation Q4HP PRN 02/12/24 02/12/24 Rx breath activated powder Shortness Of Breath #1 ea inhaler,sensor lorazepam 2 mg tablet 2 mg PO BIDP PRN Anxiety #60 tabs 02/12/24 02/12/24 Rx New Prescriptions to Start Prescriptions: [id number] João [place] Allergies Allergy/AdvReac Type Severity Reaction Status Date / Time cephalexin [From Keflex] Allergy Mild Hives Verified 02/12/24 10:13 sulfamethoxazole Allergy Unknown Verified 02/12/24 10:13 [From BACTRIM] trimethoprim [From BACTRIM] Allergy Unknown Verified 02/12/24 10:13 Discharge Plan Disposition Patient Disposition: Home, Self-Care Condition: Fair Discharge Order Discharge Orders: Discharge Order (Routine); Ordered 02/06/24 Ordered By: Vitor Lopez Follow up Plan Follow up with: Richard Edgar MD [Primary Care Provider] - 02/12/24 10:00 am Prescriptions/Medication Reconciliation: Continued folic acid 1 mg tablet 1 mg PO DAILY Qty: 100 10RF thiamine HCl (vitamin B1) 100 mg tablet 100 mg PO DAILY Qty: 100 10RF albuterol sulfate 90 mcg/actuation aero powdr breath act w/sensor 1 inh IH Q4HP PRN (Reason: Shortness Of Breath) Qty: 1 12RF lorazepam 2 mg tablet 2 mg PO BIDP PRN (Reason: Anxiety) Qty: 60 3RF Rx Instructions: for anxiety and control of seizures fluticasone propionate [Flonase Allergy Relief] 50 mcg/actuation spray,suspension 2 spray intranasal BID Qty: 16 4RF Rx Instructions: administer into each nostril pantoprazole 40 mg tablet,delayed release (DR/EC) 40 mg PO DAILY Qty: 90 0RF sucralfate [Carafate] 1 gram tablet 1 g PO BID Qty: 180 4RF oxycodone 10 mg tablet 10 mg PO BIDP PRN (Reason: pain) Qty: 60 0RF Rx Instructions: for pain arising from pancreatitis levetiracetam 500 mg tablet See Rx Instructions .ROUTE .COMPLEX Qty: 60 0RF Dose Instruction: TAKE 1 TABLET BY MOUTH 2 TIMES A DAY Rx Instructions: TAKE 1 TABLET BY MOUTH 2 TIMES A DAY ascorbic acid (vitamin C) 250 mg tablet 250 mg PO DAILY Changed qwqckx-nojjclle-wrrrbdz 36,000-114,000- 180,000 unit capsule,delayed release(DR/EC) 6 cap PO TIDWMEAL 30 Days Qty: 540 0RF Problem Reconciliation Problems Reviewed?: Yes Patient Discharge Instructions ACTIVITY: Continue current activity DIET: low fat, low cholesterol Patient Instructions: DI for Pancreatitis, DI for Drug or Alcohol Withdrawal Print Language: Norwegian Providers Primary Care Provider: Richard Edgar Provider: Vitor Lopez Attending Provider: Vitor Lopez
== END 2024-02-06 13:40 | disposition home or self-care (01) | DRG 388 ==
LOC: ER 16:27 → 2ND 20:04
PROVIDERS: Internal Medicine Adolescent Medicine; Nurse Practitioner Family; Admitting Provider Student in an Organized Health Care Education/Training Program; Emergency Provider Emergency Medicine; PCP Family Medicine; Visit Provider Student in an Organized Health Care Education/Training Program
DX: K56.7 Ileus, unspecified (principal); E43 Unspecified severe protein-calorie malnutrition; K86.3 Pseudocyst of pancreas; E87.1 Hypo-osmolality and hyponatremia; C34.90 Malignant neoplasm of unspecified part of unspecified bronchus or lung; C79.51 Secondary malignant neoplasm of bone; K86.0 Alcohol-induced chronic pancreatitis; K86.1 Other chronic pancreatitis; K52.9 Noninfective gastroenteritis and colitis, unspecified; F10.20 Alcohol dependence, uncomplicated; R56.9 Unspecified convulsions; Z79.899 Other long term (current) drug therapy; J42 Unspecified chronic bronchitis; Z68.20 Body mass index [BMI] 20.0-20.9, adult; F10.10 Alcohol abuse, uncomplicated; Z93.1 Gastrostomy status; F17.210 Nicotine dependence, cigarettes, uncomplicated
CPT/HCPCS: 36415; 74177; 80048; 80053; 81001; 82962; 83690; 83735; 84100; 85025; 86803; 87389; 93005; 99251; 99285; J0131; J1650; J1885; J2270; J2405; J7030; J7120; Q9967

== ENCOUNTER 2024-02-25 10:29 | Outpatient (CLI) | payer MEDICAID, SELFPAY ==
[2024-02-25 11:32] LABS: Basophils # 0.1 K/mm3 (0-0.2); Basophils % 1.3 % (0.1-2.0); Eosinophils # 0.3 K/mm3 (0.0-0.4); Eosinophils % 4.4 % (0.1-12.0); Hematocrit 41.4 % (42.0-52.0); Hemoglobin 13.7 g/dL (14.1-18.0); Lymphocytes # 1.9 K/mm3 (0.7-4.5); Lymphocytes % 33.3 % (10-50); Mean Corpuscular HGB Conc 33.2 g/dL (31.8-35.4); Mean Corpuscular Hemoglobin 32.9 pg (27.0-31.2); Mean Corpuscular Volume 99.2 fl (80-94); Mean Platelet Volume 8.6 fl (7.4-10.4); Monocytes # 0.5 K/mm3 (0.1-1.0); Monocytes % 8.6 % (1.7-9.3); Neutrophils # 2.9 K/mm3 (1.8-7.8); Neutrophils % 52.5 % (37.0-80.0); Platelet Count 162 K/mm3 (142-424); Red Blood Count 4.17 M/mm3 (4.60-6.20); Red Cell Distribution Width 14.1 % (11.5-17.5); White Blood Count 5.6 K/mm3 (4.8-10.8)
[2024-02-25 11:50] LABS: Chloride 99 mmol/L (98-107); Sodium 133 mmol/L (136-145)
[2024-02-25 11:53] LABS: Blood Urea Nitrogen 7 mg/dl (9-20); Calcium 9.5 mg/dl (8.4-10.2); Carbon Dioxide 28 mmol/L (22.0-30.0); Estimated Glomerular Filt Rate 116 ml/min (>60); GFR (African American) 140 ML/MIN (>60); Glucose 100 mg/dl (74-100)
== END 2024-02-25 23:59 | disposition home or self-care (01) ==
LOC: LAB 10:30
PROVIDERS: PCP Family Medicine; Visit Provider Surgery
DX: L72.3 Sebaceous cyst (principal)
CPT/HCPCS: 36415; 80048; 85025

== ENCOUNTER 2024-03-02 12:03 | Outpatient (CLI) | payer MEDICAID, SELFPAY | END 2024-03-02 23:59 | disposition home or self-care (01) | LOC: PREOP 12:04 | PROVIDERS: PCP Family Medicine; Visit Provider Surgery | DX: Z01.818 Encounter for other preprocedural examination (principal) ==

== ENCOUNTER 2024-03-11 07:40 | Day surgery (SDC) | payer MEDICAID, SELFPAY ==
[2024-03-02 12:48] VITALS: BMI 19.1
[2024-03-11] VITALS (9 sets, daily range): BP systolic 115–134; BP diastolic 71–75; PULSE 69–80; RESP 16–18; TEMP 36.3–36.6; O2SAT 98–100
[2024-03-11] MEDS: LACTATED RINGERS 1000ML 1,000 ML 25 ML IV (08:42)
--- NOTE | 2024-03-11 09:20 | EXP.ANES.CKL ---
[facility] Disclaimer: The information contained in this section may have been updated after the patient was seen, as this information can be updated by other users. Medical History Acute on chronic pancreatitis Lung nodule Acute on chronic pancreatitis Hypochloremia Hearing loss Pancreatic pseudocyst Chronic alcohol abuse Bipolar 1 disorder Seizures Abdominal aneurysm Excessive cerumen in left ear canal SBO (small bowel obstruction) Acute pancreatitis Cachexia Acute on chronic pancreatitis Gastrostomy tube dependent Metastatic non-small cell lung cancer Severe protein-calorie malnutrition Lung cancer metastatic to bone Abdominal pain Pancreatic pseudocyst Abdominal pain Bone marrow disorder Cirrhosis COPD (chronic obstructive pulmonary disease) GERD (gastroesophageal reflux disease) Gastric outlet obstruction History of lung cancer Pancreatic pseudocyst Alcoholic pancreatitis Anxiety History of lung cancer Alcohol abuse Pancreatitis, acute Gallstone pancreatitis Pancreatitis Hypokalemia Surgical History History of aortic aneurysm repair History of cholecystectomy Hx of cholecystectomy Family History Other Cancer of lung Emphysema lung Social History Smoking Status: Current every day smoker tobacco type: cigarettes packs per day: 3 alcohol intake: former substance use type: denies use current occupational status: unemployed and disabled Travel in the last 8 weeks: None household members: family housing: house current occupational exposures/hazards: No caffeine: No H Anesthesia Checklist Patient Identification Patient Identification: Arm Band and Verbal (Name & ) Structural Data Admitted From: Home Planned Operative Procedure/s: Excision cyst back of neck Consent for Planned Operative Procedure(s) Verified: Yes Verified Documents: Surgical Consent and History and Physical NPO Status Verified Time NPO: 00:00 Additional verifications Anesthesia Reactions: No Hx Blood Transfusions: No Blood Transfusion Reaction: No Airway Assessment Mallampati Score:: Class I C-Spine Mobility Assessed: Yes TMJ Mobility Assessed: Yes Dentition: Edentulous Neurological Assessment Level of Consciousness: Awake Hx Seizures: Yes Numbness or tingling in extremities: No Anesthesia Plan Anesthesia Risk discussed: Yes Anesthesia Plan: Verified ASA Class: III Anesthesia Type: General
[2024-03-11] MEDS: CLINDAMYCIN PHOSPHATE/D5W 900 MG/50 ML PIGGYBACK 100 MG IV (10:45)
[2024-03-11] MEDS: LIDOCAINE 1% 20ML MDV 20 ML (11:04)
--- NOTE | 2024-03-11 11:19 | EXP.OP.NOTE ---
Date of procedure: 03/11/24 Pre-op Diagnosis:: Right posterior neck sebaceous cyst with intermittent infection/abscess (2.5 cm) Post-op Diagnosis:: Same Procedure performed:: Excision of 2.5 cm right posterior neck sebaceous cyst Surgeon:: Vin Trammell MD [employer]AL[employer] ENGINEER:: Davion Camacho Anesthesia: local and LMA Estimated blood loss (mL): 10 Operative findings:: Lesion excised in toto Complex sebaceous cyst with extension to the fascial margin Operative note:: After informed consent was obtained the patient was taken to the operating room and placed in the left lateral decubitus position. General anesthesia with laryngeal mask airway was achieved. The right posterior neck region was prepped and draped in a sterile fashion. After infiltration with local anesthetic an elliptical incision was made around the lesion (a complex sebaceous cyst with extension to the fascial margin). The lesion was excised in toto with a combination of sharp dissection and electrocautery. It was then passed off for pathologic evaluation. Electrocautery was utilized to achieve hemostasis. Skin was reapproximated with 4-0 nylon in an interrupted mattress fashion. Dressings were applied and the patient was transferred to recovery in stable condition. Condition: stable Disposition: PACU Specimens:: 2.5 cm right posterior neck cyst Complications:: No immediate
--- NOTE | 2024-03-11 11:29 | EXP.ANES.I ---
[facility] Anesthesia Record Part I Anesthesia Record I Intake, IV Amount: 1,000 Hydration: Adequate Estimated blood loss (mL): 5 Urine output (mL): 0 Blood Products used (#): none Blood Pressure: 118/71 SaO2: 100 Pulse Rate: 69 Airway Patency: Patent Respiratory Rate: 16 Temperature: 97.9 F Patient is:: Drowsy and Stable Stable to PACU at:: 11:25
--- NOTE | 2024-03-12 13:24 | P.PNANES_ITS ---
[facility] Anesthesia Record Part II Anesthesia Record Part II Discharge Time: 11:55 Destination: Surgical Day Care (OP Surgery) PACU nurse assessment reviewed?: Yes Patient Condition:: Good Anesthesia Complications:: None Swallowing reflex intact?: Yes Airway Patency: Patent Cyanosis?: No Blood Pressure: 121/73 SaO2: 98 Respiratory Rate: 16 Pulse Rate: 77 Temperature: 97.4 F Mental Status: Alert & Oriented Pain level:: 0 Nausea and/or vomitting:: None Intake, IV Amount: 0 Hydration: Adequate
[2024-03-12 13:25] VITALS: BP 121/73; PULSE 77; RESP 16; TEMP 36.3; O2SAT 98
== END 2024-03-11 12:26 | disposition home or self-care (01) ==
PROVIDERS: PCP Family Medicine; Visit Provider Surgery
PROC: (CPT 11423; principal; 2024-03-11 10:15)
DX: L72.3 Sebaceous cyst (principal)
CPT/HCPCS: 11423; 96374; J1100; J2250; J2405; J3010; J7120

== ENCOUNTER 2024-04-10 15:11 | Emergency (ER) | payer MEDICAID, SELFPAY ==
[2024-04-10 15:12] VITALS: BP 108/78; PULSE 80; RESP 18; TEMP 36.3; O2SAT 98; BMI 18.2
--- NOTE | 2024-04-10 15:40 | HMH.EDGENADL ---
Discharge Plan Disposition Patient Disposition: Home, Self-Care Condition: Good Prescriptions Prescriptions: New promethazine 25 mg tablet 25 mg PO Q6H PRN (Reason: nausea and vomiting) Qty: 12 0RF No Action folic acid 1 mg tablet 1 mg PO DAILY Qty: 100 10RF thiamine HCl (vitamin B1) 100 mg tablet 100 mg PO DAILY Qty: 100 10RF albuterol sulfate 90 mcg/actuation aero powdr breath act w/sensor 1 inh IH Q4HP PRN (Reason: Shortness Of Breath) Qty: 1 12RF lorazepam 2 mg tablet 2 mg PO BIDP PRN (Reason: Anxiety) Qty: 60 3RF Rx Instructions: for anxiety and control of seizures Senna Plus 8.6-50 mg capsule 1 tab-cap PO BID PRN (Reason: constipation) Qty: 60 12RF fluticasone propionate [Flonase Allergy Relief] 50 mcg/actuation spray,suspension 2 spray intranasal BID Qty: 16 4RF Rx Instructions: administer into each nostril sucralfate [Carafate] 1 gram tablet 1 g PO BID Qty: 180 4RF oxycodone 10 mg tablet 10 mg PO BIDP PRN (Reason: pain) Qty: 60 0RF Rx Instructions: for pain arising from pancreatitis pantoprazole 40 mg tablet,delayed release (DR/EC) 40 mg PO DAILY Qty: 90 0RF levetiracetam 500 mg tablet See Rx Instructions .ROUTE .COMPLEX Qty: 60 0RF Dose Instruction: TAKE 1 TABLET BY MOUTH 2 TIMES A DAY Rx Instructions: TAKE 1 TABLET BY MOUTH 2 TIMES A DAY ascorbic acid (vitamin C) 250 mg tablet 250 mg PO DAILY pzbnzs-llyizoud-hhrrrug 36,000-114,000- 180,000 unit capsule,delayed release(DR/EC) 6 cap PO TIDWMEAL 30 Days Qty: 540 0RF Referrals Follow up/Referrals: Tino Jack II, MD [Staff Physician] - See instructions Richard Edgar MD [Primary Care Provider] - See instructions Activity Restrictions/Add. Instructions Additional Instructions/Restrictions: You were evaluated in the emergency department today. Please follow-up very closely with your primary care provider over the next 48 hours. I also recommend close follow-up with gastroenterology. 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 Return to the emergency department for new or worsening symptoms Clinical Impressions Clinical Impression: Abdominal pain, chronic, epigastric, Nausea, vomiting, and diarrhea Instructions Patient Instructions: DI for Acute Abdominal Pain, Nausea and Vomiting-Adult Print Language Print Language: Ecuadorean Discharge ED Provider: Jen Garcia General Adult HPI General Chief complaint: Abdominal Pain Stated complaint: stomach pain with vomiting Time Seen by Provider: 04/10/24 15:21 History of Present Illness HPI narrative: This patient is a 59-year-old male with a history of pancreatic pseudocyst, chronic pancreatitis, prior small bowel obstruction presenting to the emergency department for evaluation with concern for abdominal pain, nausea, vomiting, and diarrhea. Patient states that he is having bad chronic pain. He states that he thinks it is his pancreas again. Symptoms are similar to flareups of prior bouts of pancreatitis with no new features or concerns. He notes has been feeling bad for about a week now and is and vomiting for several days. He thinks he is dehydrated. No hematemesis, melena, or hematochezia noted. Related Data Home Medications ?Medication ?Instructions ?Recorded ?Confirmed ascorbic acid (vitamin C) 250 mg 250 mg PO DAILY 02/04/24 03/26/24 tablet Previous Rx's ?Medication ?Instructions ?Recorded fluticasone propionate 50 2 spray intranasal BID allergy 08/12/23 mcg/actuation nasal symptoms #16 grams spray,suspension (Flonase Allergy Relief) folic acid 1 mg tablet 1 mg PO DAILY #100 tabs 12/01/23 thiamine HCl (vitamin B1) 100 mg 100 mg PO DAILY #100 tabs 12/01/23 tablet sucralfate 1 gram tablet (Carafate) 1 g PO BID Ulcers #180 tabs 01/21/24 kctzrb-yelcgfji-znpyzgb 6 cap PO TIDWMEAL Pancreatic 02/06/24 36,000-114,000-180,000 unit insufficiency 30 days #540 caps capsule,delay rel albuterol sulfate 90 mcg/actuation 1 inh inhalation Q4HP PRN 02/12/24 breath activated powder Shortness Of Breath #1 ea inhaler,sensor lorazepam 2 mg tablet 2 mg PO BIDP PRN Anxiety #60 tabs 02/12/24 oxycodone 10 mg tablet 10 mg PO BIDP PRN pain #60 tabs 03/11/24 pantoprazole 40 mg tablet,delayed 40 mg PO DAILY #90 tabs 03/15/24 release sennosides 8.6 mg-docusate sodium 1 tab-cap PO BID PRN constipation 03/18/24 50 mg capsule (Senna Plus) #60 caps levetiracetam 500 mg tablet See Rx Instructions .Route 03/29/24 .COMPLEX #60 tabs promethazine 25 mg tablet 25 mg PO Q6H PRN nausea and 04/10/24 vomiting #12 tabs Allergies Allergy/AdvReac Type Severity Reaction Status Date / Time cephalexin (From Keflex) Allergy Mild Hives Verified 03/26/24 10:21 sulfamethoxazole (From Allergy Unknown Hives Verified 03/26/24 10:21 BACTRIM) trimethoprim (From BACTRIM) Allergy Unknown Hives Verified 03/26/24 10:21 PFS PFS Disclaimer: The information contained in this section may have been updated after the patient was seen, as this information can be updated by other users. Medical History Lung nodule Acute on chronic pancreatitis Acute on chronic pancreatitis Hypochloremia Hearing loss Pancreatic pseudocyst Chronic alcohol abuse Bipolar 1 disorder Seizures Abdominal aneurysm Excessive cerumen in left ear canal SBO (small bowel obstruction) Acute pancreatitis Cachexia Acute on chronic pancreatitis Gastrostomy tube dependent Metastatic non-small cell lung cancer Severe protein-calorie malnutrition Lung cancer metastatic to bone Abdominal pain Pancreatic pseudocyst Abdominal pain Bone marrow disorder Cirrhosis COPD (chronic obstructive pulmonary disease) GERD (gastroesophageal reflux disease) Gastric outlet obstruction History of lung cancer Pancreatic pseudocyst Alcoholic pancreatitis Anxiety History of lung cancer Alcohol abuse Pancreatitis, acute Gallstone pancreatitis Pancreatitis Hypokalemia Surgical History History of local excision of skin lesion History of aortic aneurysm repair History of cholecystectomy Hx of cholecystectomy Family History Other Cancer of lung Emphysema lung Social History Smoking Status: Current every day smoker tobacco type: cigarettes packs per day: 3 alcohol intake: former substance use type: denies use current occupational status: unemployed and disabled household members: family housing: house current occupational exposures/hazards: No caffeine: No Other Medical History Have you received the Flu Vaccine for this season: No Have you received the Pneumonia Vaccine: Yes ROS Obtained: Yes All systems reviewed & no additional complaints except as documented Physical Exam General General appearance: alert and in no apparent distress Head Head exam: atraumatic and normocephalic Eye Eye exam: Present normal appearance, PERRL and EOMI ENT ENT exam: Present normal exam, normal oropharynx, mucous membranes moist and normal external ear exam Neck Neck exam: Present normal inspection, full ROM and trachea midline; Absent tenderness Chest Chest inspection: Present normal inspection and symmetric chest wall rise; Absent tenderness Respiratory Respiratory exam: Present normal lung sounds bilaterally; Absent respiratory distress, wheezes, stridor or accessory muscle use Cardiovascular Cardiovascular exam: Present regular rate and normal rhythm Abdominal Exam Abdominal exam: Present soft and tenderness (Epigastric); Absent distention, guarding, rebound or rigidity Extremities Exam Extremities exam: Present normal inspection, full ROM and normal capillary refill; Absent tenderness or edema Back Exam Back exam: Present normal inspection and full ROM; Absent tenderness Neurological Exam Neurological exam: Present alert, oriented X3, CN II-XII intact and normal gait; Absent motor sensory deficit Psychiatric Psychiatric exam: Present normal affect and normal mood Skin Skin exam: Present warm and dry Medical Decision Making Medical Records Medical records reviewed: Yes I reviewed the patient's medical records. Screening: Per USPSTF and CDC recommendations, given the prevalence of disease in our region, it is our hospital?s policy to screen for HIV and viral Hepatitis for all patients aged 18 and over and those with ongoing risk factors. [place] Inquiry Pt receiving controlled substance: No Vital Signs: 04/10/24 15:12 04/10/24 16:00 04/10/24 16:30 Temperature 97.4 F L Temperature Source Oral Pulse Rate 71 63 Pulse Rate [Right Brachial] 80 Respiratory Rate 18 Blood Pressure 112/80 122/74 Blood Pressure [Right Arm] 108/78 L Blood Pressure Mean [Right Arm] 88 02 Sat by Pulse Oximetry 98 99 97 Oxygen Delivery Method Room Air 04/10/24 17:00 04/10/24 17:22 04/10/24 18:00 Temperature 97.8 F Temperature Source Oral Pulse Rate 66 68 71 Pulse Rate [Right Brachial] Respiratory Rate 18 Blood Pressure 110/72 125/79 117/89 Blood Pressure [Right Arm] Blood Pressure Mean [Right Arm] 02 Sat by Pulse Oximetry 98 98 Oxygen Delivery Method Room Air Lab Data Lab results reviewed: Yes I reviewed the patient's lab results. Lab Results 04/10/24 15:40: WBC 5.3, RBC 4.23 L, Hgb 14.0 L, Hct 39.5 L, MCV 93.4, MCH 33.1 H, MCHC 35.4, RDW 14.0, Plt Count 169, MPV 8.5, Neut % (Auto) 59.4, Lymph % (Auto) 26.6, [place] % (Auto) 8.0, Eos % (Auto) 5.1, Baso % (Auto) 0.9, Neut # (Auto) 3.1, Lymph # (Auto) 1.4, [place] # (Auto) 0.4, Eos # (Auto) 0.3, Baso # (Auto) 0.1, Sodium 125 L, Potassium 4.7, Chloride 93 L, Carbon Dioxide 22, Anion Gap 14.7, BUN 4 L, Creatinine 0.70, Estimated Creat Clear 87, Estimated GFR 115, Est GFR ( Amer) 140, Glucose 124 H, Calcium 9.5, Total Bilirubin 0.7, AST 29, ALT 15, Alkaline Phosphatase 74, Total Protein 7.6, Albumin 4.6, Globulin 3.0, Albumin/Globulin Ratio 1.5, Lipase 116 04/10/24 15:40 04/10/24 15:40 Orders (Tests/Meds): ED MEDICATIONS Discontinued Medications Generic Name Dose Route Start Last Admin Trade Name Almasq PRN Reason Stop Dose Admin Acetaminophen 1,000 mg 04/10/24 15:34 04/10/24 15:49 Acetaminophen 1,000mg/100ml Vial IV 04/10/24 15:35 1,000 mg ONCE ONE Administration Droperidol 2.5 mg 04/10/24 15:34 04/10/24 15:49 Droperidol 5mg/2ml Vial IV 04/10/24 15:35 2.5 mg ONCE ONE Administration Famotidine 20 mg 04/10/24 15:34 04/10/24 15:51 Famotidine 20mg/2ml Vial IV 04/10/24 15:35 20 mg ONCE ONE Administration Sodium Chloride 1,000 mls @ 999 mls/hr 04/10/24 16:33 04/10/24 16:59 Sod Chlor 0.9% 1000ml Bag IV 04/10/24 17:33 999 mls/hr .Q1H1M ONE Administration Ketorolac Tromethamine 15 mg 04/10/24 15:34 04/10/24 15:50 Ketorolac 30mg/Ml Vial IV 04/10/24 15:35 15 mg ONCE ONE Administration Sodium Chloride 8 ml 04/10/24 15:34 04/10/24 15:51 Sodium Chloride 0.9% 10ml Vial IV 05/10/24 15:33 8 ml NEEDED PRN Administration dilute pepcid ORDERS Category Date Time Status Complete Blood Count Auto Diff Stat Lab 04/10/24 15:40 Completed Comprehensive Metabolic Panel Stat Lab 04/10/24 15:40 Completed Lipase Stat Lab 04/10/24 15:40 Completed ECG Data Tracing #1: I reviewed this ECG and interpreted as documented below: Normal sinus rhythm with a ventricular rate of [address] changes concerning for ischemia. Normal intervals. Borderline right axis deviation. ECG initial impression date: 04/10/24 ECG initial impression time: 16:03 Medical Decision Narrative: In summary, this patient is a 59-year-old male presenting to the Emergency Department for evaluation of acute on chronic abdominal pain, nausea, vomiting, and diarrhea. Differential diagnoses considered include but are not limited to pancreatitis flare, dehydration, electrolyte derangements, gastroenteritis, colitis, bowel obstruction. Ruling out the most morbid conditions drove assessment. It should be noted patient's history includes chronic pancreatitis, GERD which are not at goal therapy. This complicates all aspects of care by increasing patient's risk for morbidity. I reviewed patient's past medical records and noted multiple previous ED evaluations for similar complaints as well as prior admissions for similar symptoms. I also noted that the patient has been seen outpatient by primary care for chronic pain. No recent evaluations that I can see from gastroenterology. On exam, the patient is lying in bed in no acute distress. He has normal vital signs on cardiac telemetry. He has epigastric tenderness but no rebound or guarding. No abdominal distention or peritonitis. Workup included CBC, CMP, lipase, EKG. EKG obtained is reassuring. Patient was given IV droperidol, Toradol, acetaminophen, and Pepcid for symptomatic improvement. Patient was in observation for 2 hours following droperidol with resolution of symptoms. He is able to tolerate oral intake and is feeling a lot better. Multiple subsequent reassessments, he is resting comfortably with benign abdominal exam and reassuring vital signs on cardiac telemetry. Labs are reassuring. He has chronic hyponatremia is not singly changed from baseline. He did receive a liter bolus of IV fluids here. Lipase is negative. Ultimately given resolution of symptoms and reassuring labs, I do not feel that imaging is indicated. I feel the patient is appropriate for discharge home with instruction for supportive management, close follow-up as an outpatient, and prescription for Phenergan to treat nausea and vomiting. He does have follow-up with his primary care provider arranged this week. Patient was given strict return precautions and was discharged after all questions were answered Critical Care Critical Care Time Critical Care Time: No
[2024-04-10] MEDS: droPERidol 5MG/2ML VIAL 2.5 MG IV (15:49)
[2024-04-10] MEDS: ACETAMINOPHEN 1,000MG/100ML VIAL 1000 MG IV (15:49)
[2024-04-10] MEDS: KETOROLAC 30MG/ML VIAL 15 MG IV (15:50)
[2024-04-10] MEDS: SODIUM CHLORIDE 0.9% 10ML VIAL 8 ML IV (15:51)
[2024-04-10] MEDS: FAMOTIDINE 20MG/2ML VIAL 20 MG IV (15:51)
--- NOTE | 2024-04-10 15:59 | ECG_ITS ---
APPROVED REPORT Exam: Resting ECG HR:72 bpm ECG Measurements Heart Rate 72 AXES MS 177 P 81 QRSd 92 QRS 91 QT 380 T 73 QTc 404 Conclusion SINUS RHYTHM BORDERLINE RIGHT AXIS DEVIATION [QRS AXIS > 90] BORDERLINE ECG UNCONFIRMED REPORT Electronically signed by : JDUIE NICHOLAS, 04/10/2024 23:11:16
[2024-04-10 16:00] VITALS: BP 112/80; PULSE 71; O2SAT 99
[2024-04-10 16:01] LABS: Albumin Level 4.6 g/dl (3.5-5.0); Chloride 93 mmol/L (98-107); Potassium 4.7 mmoL/L (3.5-5.1); Sodium 125 mmol/L (136-145)
[2024-04-10 16:04] LABS: Alanine Aminotransferase 15 U/L (12-78); Albumin/Globulin Ratio 1.5 (1.1-1.8); Alkaline Phosphatase 74 U/L (38-126); Anion Gap 14.7 mEq/L (5-15); Aspartate Amino Transferase 29 U/L (17-59); Bilirubin,Total 0.7 mg/dl (0.2-1.3); Blood Urea Nitrogen 4 mg/dl (9-20); Calcium 9.5 mg/dl (8.4-10.2); Carbon Dioxide 22 mmol/L (22.0-30.0); Creatinine Clearance Estimated 87 mL/min (50-200); Estimated Glomerular Filt Rate 115 ml/min (>60); GFR (African American) 140 ML/MIN (>60); Glucose 124 mg/dl (74-100); Lipase 116 U/L (23-300); Total Protein,Serum 7.6 g/dl (6.3-8.2)
[2024-04-10 16:12] LABS: Basophils # 0.1 K/mm3 (0-0.2); Basophils % 0.9 % (0.1-2.0); Eosinophils # 0.3 K/mm3 (0.0-0.4); Eosinophils % 5.1 % (0.1-12.0); Hematocrit 39.5 % (42.0-52.0); Lymphocytes # 1.4 K/mm3 (0.7-4.5); Lymphocytes % 26.6 % (10-50); Mean Corpuscular HGB Conc 35.4 g/dL (31.8-35.4); Mean Corpuscular Hemoglobin 33.1 pg (27.0-31.2); Mean Corpuscular Volume 93.4 fl (80-94); Mean Platelet Volume 8.5 fl (7.4-10.4); Monocytes # 0.4 K/mm3 (0.1-1.0); Neutrophils # 3.1 K/mm3 (1.8-7.8); Neutrophils % 59.4 % (37.0-80.0); Platelet Count 169 K/mm3 (142-424); Red Blood Count 4.23 M/mm3 (4.60-6.20); White Blood Count 5.3 K/mm3 (4.8-10.8)
[2024-04-10 16:30] VITALS: BP 122/74; PULSE 63; O2SAT 97
[2024-04-10] MEDS: 0.9 % SODIUM CHLORIDE 1000ML 1,000 ML 999 ML IV (16:59)
[2024-04-10 17:00] VITALS: BP 110/72; PULSE 66; O2SAT 98
[2024-04-10 17:22] VITALS: BP 125/79; PULSE 68; O2SAT 98
[2024-04-10 18:00] VITALS: BP 117/89; PULSE 71; RESP 18; TEMP 36.6; O2SAT 98
== END 2024-04-10 18:11 | disposition home or self-care (01) ==
PROVIDERS: Emergency Provider Emergency Medicine; PCP Family Medicine
DX: R10.13 Epigastric pain (principal); R11.2 Nausea with vomiting, unspecified; R19.7 Diarrhea, unspecified
CPT/HCPCS: 80053; 83690; 85025; 93005; 96361; 96374; 96375; 99283; J0131; J1790; J1885; J7030; S0028

== ENCOUNTER 2024-04-14 07:29 | Observation (INO) | payer MEDICAID, SELFPAY ==
[2024-04-14] VITALS (17 sets, daily range): BP systolic 107–154; BP diastolic 27–89; PULSE 76–104; RESP 14–24; TEMP 36.6–37.3; O2SAT 91–99; BMI 18.2; BMI 20.7
--- NOTE | 2024-04-14 07:32 | ECG_ITS ---
APPROVED REPORT Exam: Resting ECG HR:80 bpm ECG Measurements Heart Rate [address] 201 P 67 QRSd 96 QRS 87 QT 392 T 82 QTc 428 Conclusion SINUS RHYTHM NORMAL ECG Significant chatter, normal sinus Electronically signed by : MARIELENA CHAMBERS, 04/17/2024 17:31:17
--- NOTE | 2024-04-14 07:40 | XR_ITS ---
FINAL REPORT CLINICAL HISTORY: vomiting, CP FINDINGS: A single AP view of the chest was obtained. There is no prior exam for comparison. The cardiac and mediastinal silhouettes are within normal limits. The lungs are clear. There is no effusion or pneumothorax. IMPRESSION: No radiographic evidence of acute cardiac or pulmonary disease on this single view of the chest. Reviewed, Interpreted and Dictated by Jaymie Marshall MD Transcribed by Karina Vazquez Authenticated and [facility]
--- NOTE | 2024-04-14 07:47 | HMH.EDGENADL ---
Discharge Plan Disposition Patient Disposition: Admitted Chief Complaint: Nausea/Vomiting/Diarrhea Clinical Impressions Clinical Impression: Acute hyponatremia, Weakness Discharge ED Provider: Robert Santana General Adult HPI General Chief complaint: Nausea/Vomiting/Diarrhea Stated complaint: chest pain Time Seen by Provider: 04/14/24 07:33 Mode of Arrival: EMS Source of Information: Patient Limitations: No Limitations Description of Symptoms (Recalled from ER Triage Doc. by RN): Patient reports he is an alcoholic and approx 2 hours ago he began vomiting and having chest pain. States his last drink was just before EMS arrival. History of Present Illness HPI narrative: Please note that above description of symptoms, in this electronic medical record under categorization of recalled from ER triage doctor by RN are reflective of an initial nursing assessment, however, is not reflective of my full history and physical exam that was personally taken and clarified. Consequentially, this preceding description of symptoms, which may include the patient's categorized chief complaint in the EMR, do not reflect my personal clinical impression, and the ultimate description of history of present illness and patient stated complaints should be deferred to this section of the note. Unless stated otherwise or congruent with this section of the note, additional signs, symptoms, or incongruence should be interpreted as inaccurate with my clinical impression. Related Data Home Medications ?Medication ?Instructions ?Recorded ?Confirmed ascorbic acid (vitamin C) 250 mg 250 mg PO DAILY 02/04/24 03/26/24 tablet Previous Rx's ?Medication ?Instructions ?Recorded fluticasone propionate 50 2 spray intranasal BID allergy 08/12/23 mcg/actuation nasal symptoms #16 grams spray,suspension (Flonase Allergy Relief) folic acid 1 mg tablet 1 mg PO DAILY #100 tabs 12/01/23 thiamine HCl (vitamin B1) 100 mg 100 mg PO DAILY #100 tabs 12/01/23 tablet sucralfate 1 gram tablet (Carafate) 1 g PO BID Ulcers #180 tabs 01/21/24 [id number]-[id number] 6 cap PO TIDWMEAL Pancreatic 02/06/24 36,000-114,000-180,000 unit insufficiency 30 days #540 caps capsule,delay rel albuterol sulfate 90 mcg/actuation 1 inh inhalation Q4HP PRN 02/12/24 breath activated powder Shortness Of Breath #1 ea inhaler,sensor lorazepam 2 mg tablet 2 mg PO BIDP PRN Anxiety #60 tabs 02/12/24 pantoprazole 40 mg tablet,delayed 40 mg PO DAILY #90 tabs 03/15/24 release sennosides 8.6 mg-docusate sodium 1 tab-cap PO BID PRN constipation 03/18/24 50 mg capsule (Senna Plus) #60 caps levetiracetam 500 mg tablet See Rx Instructions .Route 03/29/24 .COMPLEX #60 tabs promethazine 25 mg tablet 25 mg PO Q6H PRN nausea and 04/10/24 vomiting #12 tabs oxycodone 10 mg tablet 10 mg PO BIDP PRN pain #60 tabs 04/12/24 Allergies Allergy/AdvReac Type Severity Reaction Status Date / Time cephalexin (From Keflex) Allergy Mild Hives Verified 03/26/24 10:21 sulfamethoxazole (From Allergy Unknown Hives Verified 03/26/24 10:21 BACTRIM) trimethoprim (From BACTRIM) Allergy Unknown Hives Verified 03/26/24 10:21 PFSH PFSH Disclaimer: The information contained in this section may have been updated after the patient was seen, as this information can be updated by other users. Medical History Lung nodule Acute on chronic pancreatitis Acute on chronic pancreatitis Hypochloremia Hearing loss Pancreatic pseudocyst Chronic alcohol abuse Bipolar 1 disorder Seizures Abdominal aneurysm Excessive cerumen in left ear canal SBO (small bowel obstruction) Acute pancreatitis Cachexia Acute on chronic pancreatitis Gastrostomy tube dependent Metastatic non-small cell lung cancer Severe protein-calorie malnutrition Lung cancer metastatic to bone Abdominal pain Pancreatic pseudocyst Abdominal pain Bone marrow disorder Cirrhosis COPD (chronic obstructive pulmonary disease) GERD (gastroesophageal reflux disease) Gastric outlet obstruction History of lung cancer Pancreatic pseudocyst Alcoholic pancreatitis Anxiety History of lung cancer Alcohol abuse Pancreatitis, acute Gallstone pancreatitis Pancreatitis Hypokalemia Surgical History History of local excision of skin lesion History of aortic aneurysm repair History of cholecystectomy Hx of cholecystectomy Family History Other Cancer of lung Emphysema lung Social History (Updated 04/10/24 @ 18:19 by Jen Garcia DO) Smoking Status: Current every day smoker tobacco type: cigarettes packs per day: 3 alcohol intake: former substance use type: denies use current occupational status: unemployed and disabled household members: family housing: house current occupational exposures/hazards: No caffeine: No Other Medical History Have you received the Flu Vaccine for this season: No Have you received the Pneumonia Vaccine: Yes ROS Obtained: Yes All systems reviewed & no additional complaints except as documented Physical Exam General General appearance: alert, appears intoxicated and cachectic Head Head exam: atraumatic and normocephalic Eye Eye exam: Present normal appearance, PERRL and EOMI Neck Neck exam: Present normal inspection, full ROM and trachea midline Respiratory Respiratory exam: Present normal lung sounds bilaterally; Absent respiratory distress, wheezes, stridor, accessory muscle use or prolonged expiratory phase Cardiovascular Cardiovascular exam: Present regular rate, normal rhythm and other (Pulses equal symmetric in upper and lower extremities) Abdominal Exam Abdominal exam: Present soft; Absent distention, tenderness, guarding, rebound, rigidity or pulsatile mass Extremities Exam Extremities exam: Present normal inspection and full ROM; Absent tenderness or edema Neurological Exam Neurological exam: Present alert, oriented X3, CN II-XII intact and normal gait; Absent motor sensory deficit Skin Skin exam: Present warm and dry; Absent diaphoresis or erythema Medical Decision Making Medical Records Medical records reviewed: Yes I reviewed the patient's medical records. Screening: Per USPSTF and CDC recommendations, given the prevalence of disease in our region, it is our hospital?s policy to screen for HIV and viral Hepatitis for all patients aged 18 and over and those with ongoing risk factors. Med[place] Inquiry Pt receiving controlled substance: No Medhat was queried for this patient: No Vital Signs: 04/14/24 07:29 04/14/24 08:00 04/14/24 08:30 Temperature 97.9 F Temperature Source Oral Pulse Rate 82 77 Pulse Rate [Radial] 79 Respiratory Rate 16 14 22 Blood Pressure 141/89 H 121/69 Blood Pressure [Right Arm] 124/76 Blood Pressure Mean [Right Arm] 92 Blood Pressure Source [Right Arm] Automatic Cuff Blood Pressure Position [Right Arm] Sitting 02 Sat by Pulse Oximetry 97 96 96 Oxygen Delivery Method Room Air 04/14/24 09:00 Temperature Temperature Source Pulse Rate 77 Pulse Rate [Radial] Respiratory Rate 18 Blood Pressure 116/79 Blood Pressure [Right Arm] Blood Pressure Mean [Right Arm] Blood Pressure Source [Right Arm] Blood Pressure Position [Right Arm] 02 Sat by Pulse Oximetry 91 L Oxygen Delivery Method Lab Data Lab Results 04/14/24 07:37: WBC 9.6, RBC 4.39 L, Hgb 14.7, Hct 40.4 L, MCV 92.0, MCH 33.4 H, MCHC 36.3 H, RDW 14.0, Plt Count 163, MPV 7.7, Neut % (Auto) 83.4 H, Lymph % (Auto) 7.2 L, [place] % (Auto) 7.4, Eos % (Auto) 1.5, Baso % (Auto) 0.5, Neut # (Auto) 8.0 H, Lymph # (Auto) 0.7, [place] # (Auto) 0.7, Eos # (Auto) 0.1, Baso # (Auto) 0.1, PT 10.4, INR 0.92, APTT 27.8, Sodium 120 L, Potassium 3.8, Chloride 80 L, Carbon Dioxide 29, Anion Gap 14.8, BUN 7 L, Creatinine 0.70, Estimated Creat Clear 87, Estimated GFR 115, Est GFR ( Amer) 140, Glucose 96, Calcium 10.3 H, Total Bilirubin 0.8, AST 36, ALT 17, Alkaline Phosphatase 96, Troponin I < 0.01, NT-Pro-B Natriuret Pep 82.3, Total Protein 7.4, Albumin 4.7, Globulin 2.7, Albumin/Globulin Ratio 1.7, Lipase 96, Plasma/Serum Alcohol 151 H 04/14/24 07:40: VBG pH 7.39, VBG pCO2 47.0, VBG pO2 26.9 L, VBG HCO3 27.5, VBG Total CO2 28.9 H, VBG O2 Saturation 50.1, VBG Base Excess 2.5 H, VBG Lactic Acid 2.9 H 04/14/24 07:37 04/14/24 07:37 Orders (Tests/Meds): ED MEDICATIONS Generic Name Dose Route Start Last Admin Trade Name Freq PRN Reason Stop Dose Admin Acetaminophen 650 mg 04/14/24 09:01 Acetaminophen 325mg Tab PO 05/14/24 09:00 Q4HP PRN Fever or Mild Pain (1-3) Enoxaparin Sodium 40 mg 04/15/24 09:00 Enoxaparin 40mg/0.4ml Syringe SUBCUT 12/28/24 08:59 DAILY BUZZ Folic Acid 1 mg 04/15/24 09:00 Folic Acid 1mg Tablet PO 05/15/24 08:59 DAILY BUZZ Multivitamins 10 ml/ Thiamine 1,015 mls @ 500 mls/hr 04/14/24 08:00 04/14/24 08:04 HCl 100 mg/ Magnesium Sulfate IV 04/14/24 10:01 500 mls/hr 2 gm/ Lactated Ringer's .Q2H2M ONE Administration Sodium Chloride 500 mls @ 25 mls/hr 04/14/24 09:04 Sod Chloride 3% 500ml Bag (Hypertonic) IV 04/15/24 05:03 .Q20H ONE Lorazepam 2 mg 04/14/24 09:01 Lorazepam 2mg/Ml Vial IV 05/14/24 09:00 Q1HP PRN CIWA >16 Lorazepam 1 mg 04/14/24 09:01 Lorazepam 2mg/Ml Vial IV 05/14/24 09:00 Q1HP PRN CIWA Score 8-15 Multivitamins 1 each 04/14/24 17:00 Multivitamin Tablet PO 05/14/24 16:59 1700 BUZZ Ondansetron HCl 4 mg 04/14/24 09:01 Ondansetron 4mg/2ml Vial IV 05/14/24 09:00 Q8HP PRN Nausea Sodium Chloride 10 ml 04/14/24 09:01 Sodium Chloride 0.9% 10ml Vial IV 05/14/24 09:00 NEEDED PRN to Dilute Lorazepam inj Thiamine HCl 100 mg 04/15/24 09:00 Thiamine 100mg Tablet PO 04/17/24 09:01 DAILY BUZZ Discontinued Medications Generic Name Dose Route Start Last Admin Trade Name Freq PRN Reason Stop Dose Admin Ondansetron HCl 4 mg 04/14/24 07:40 04/14/24 07:48 Ondansetron 4mg/2ml Vial IV 04/14/24 07:41 4 mg ONCE ONE Administration ORDERS Category Date Time Status Type and Screen Stat BBK 04/14/24 07:55 Results XR chest portable Stat Exams 04/14/24 07:40 Taken Complete Blood Count Auto Diff [facility] Lab 04/15/24 06:00 Ordered Complete Blood Count Auto Diff [facility] Lab 04/16/24 06:00 Ordered Complete Blood Count Auto Diff [facility] Lab 04/17/24 06:00 Ordered Complete Blood Count Auto Diff AMLAB Lab 04/18/24 06:00 Ordered Complete Blood Count Auto Diff AMLAB Lab 04/19/24 06:00 Ordered Complete Blood Count Auto Diff Stat Lab 04/14/24 07:37 Completed Comprehensive Metabolic Panel [facility] Lab 04/15/24 06:00 Ordered Comprehensive Metabolic Panel [facility] Lab 04/16/24 06:00 Ordered Comprehensive Metabolic Panel [facility] Lab 04/17/24 06:00 Ordered Comprehensive Metabolic Panel [facility] Lab 04/18/24 06:00 Ordered Comprehensive Metabolic Panel AML[facility] Lab 04/19/24 06:00 Ordered Comprehensive Metabolic Panel Stat Lab 04/14/24 07:37 Completed Drug Screen,Urine Routine Lab 04/14/24 09:05 Ordered Ethanol [Ethyl Alcohol] Stat Lab 04/14/24 07:37 Completed Lipase Stat Lab 04/14/24 07:37 Completed Magnesium AML[facility] Lab 04/15/24 06:00 Ordered Magnesium AML[facility] Lab 04/16/24 06:00 Ordered Magnesium AMLAB Lab 04/17/24 06:00 Ordered Magnesium AMLAB Lab 04/18/24 06:00 Ordered Magnesium AML[facility] Lab 04/19/24 06:00 Ordered NT Pro Brain Natriuretic Pep. Stat Lab 04/14/24 07:37 Completed PTT [Activated Partial Thrombo Time] Stat Lab 04/14/24 07:37 Completed Phosphorous AML[facility] Lab 04/15/24 06:00 Ordered Phosphorous AMLAB Lab 04/16/24 06:00 Ordered Phosphorous AMLAB Lab 04/17/24 06:00 Ordered Phosphorous AMLAB Lab 04/18/24 06:00 Ordered Phosphorous AMLAB Lab 04/19/24 06:00 Ordered Prothrombin Time INR Stat Lab 04/14/24 07:37 Completed Troponin I Q3H Lab 04/14/24 10:45 Ordered Troponin I Q3H Lab 04/14/24 13:45 Ordered Troponin I Stat Lab 04/14/24 07:37 Completed Venous Blood Gas Stat RT 04/14/24 07:40 Completed Medical Decision Narrative: 59-year-old male history of hypertension, hyperlipidemia, COPD still smoking and not on home oxygen, alcohol abuse disorder, chronic pancreatitis complicated by previous pseudocyst presenting with vomiting. Patient states that he had a seizure and started vomiting this morning, 04/14. States that the last time he drank alcohol prior to his seizure this morning was about 48 hours ago. States that he had a seizure, started drinking alcohol he woke up. Has been vomiting since that time. No blood or bile in his vomit. Also having associated new diarrhea this been going on for approximately 2 days. States that he is also having substernal chest pain that does not radiate and is nonpositional, not associated with any other symptoms started last night, 04/13 before he went to bed. Still intermittent today. No abdominal pain, urinary symptoms, shortness of breath, cough, fevers, melena or hematochezia, or any other notable symptoms or history.. History was obtained via conversation with patient and EMS. On arrival, patient hemodynamically stable, alert, oriented x4, appropriate, GCS 15, moving all extremities spontaneously, pupils equal and reactive to light. Full physical exam performed and significant for 59-year-old male in no acute distress. Intermittently hiccuping. Abdomen soft, nontender, nondistended. No Freed sign tenderness, McBurney's point tenderness, signs of peritonitis. Cardiac exam within normal limits without murmurs gallops or rubs. Patient's lungs are mildly wheezy, but no prolonged expiratory phase, no increased work of breathing. Appears and smells intoxicated. Differential includes alcohol withdrawal seizure, benzodiazepine withdrawal seizure, gastritis, enteritis, pancreatitis, peptic ulcer disease, ACS, [place], vitamin or mineral deficiency, pneumonia, among others. Patient placed on continuous cardiac monitoring and continuous pulse ox with initial blood pressure 124/76, heart rate 79, saturation 97% on room air. Independent interpretation of EKG shows sinus rhythm [address] or T wave changes concerning for acute ischemia. ID 201, QRS 96, QTc 428 with normal axis. Patient was given banana bag, Zofran for symptomatic management and correction of underlying abnormalities. Workup independently interpreted and significant for acute on chronic hyponatremia. Nonactionable CBC or VBG. Lipase negative, Trope and BNP negative. Ethanol level 150. On independent interpretation of imaging, no acute cardiopulmonary space disease on chest x-ray. See radiology read for full review of final results. On reevaluation, patient resting comfortably. Hospital medicine contacted and case discussed at length. Patient to be admitted for acute hyponatremia and weakness. Senior Ssis Developer disclaimer Much of this encounter note is an electronic bindery library technical assistant spoken language to printed text. Electronic bindery library technical assistant of the spoken language may permit errors. Although I have reviewed the note, some errors may still exist. Critical Care Critical Care Time Critical Care Time: No
[2024-04-14 07:48] LABS: VBG Base Excess 2.5 mmol/L (-2.4-2.3); VBG HCO3 27.5 mmol/L (23-30); VBG Oxygen Saturation 50.1 % (50-70); VBG PH 7.39 mmol/L (7.31-7.41); VBG PO2 26.9 mmol/L (28-40); VBG Total CO2 28.9 mmol/L (23-27)
[2024-04-14] MEDS: ONDANSETRON 4MG/2ML VIAL 4 MG IV (07:48)
[2024-04-14 07:49] LABS: Lactate Venous 2.9 mmol/L (0.4-2.0)
[2024-04-14 07:51] LABS: Basophils # 0.1 K/mm3 (0-0.2); Basophils % 0.5 % (0.1-2.0); Eosinophils # 0.1 K/mm3 (0.0-0.4); Eosinophils % 1.5 % (0.1-12.0); Hematocrit 40.4 % (42.0-52.0); Hemoglobin 14.7 g/dL (14.1-18.0); Lymphocytes # 0.7 K/mm3 (0.7-4.5); Lymphocytes % 7.2 % (10-50); Mean Corpuscular HGB Conc 36.3 g/dL (31.8-35.4); Mean Corpuscular Hemoglobin 33.4 pg (27.0-31.2); Mean Platelet Volume 7.7 fl (7.4-10.4); Monocytes # 0.7 K/mm3 (0.1-1.0); Monocytes % 7.4 % (1.7-9.3); Neutrophils % 83.4 % (37.0-80.0); Platelet Count 163 K/mm3 (142-424); Red Blood Count 4.39 M/mm3 (4.60-6.20); White Blood Count 9.6 K/mm3 (4.8-10.8)
[2024-04-14 07:57] LABS: INR 0.92 (0.9-1.1); Prothrombin Time 10.4 seconds (10.1-12.5)
[2024-04-14 08:04] LABS: Alanine Aminotransferase 17 U/L (12-78); Albumin Level 4.7 g/dl (3.5-5.0); Albumin/Globulin Ratio 1.7 (1.1-1.8); Alkaline Phosphatase 96 U/L (38-126); Anion Gap 14.8 mEq/L (5-15); Aspartate Amino Transferase 36 U/L (17-59); Bilirubin,Total 0.8 mg/dl (0.2-1.3); Blood Urea Nitrogen 7 mg/dl (9-20); Calcium 10.3 mg/dl (8.4-10.2); Carbon Dioxide 29 mmol/L (22.0-30.0); Chloride 80 mmol/L (98-107); Creatinine Clearance Estimated 87 mL/min (50-200); Estimated Glomerular Filt Rate 115 ml/min (>60); Ethyl Alcohol 151 mg/dl (0-10); GFR (African American) 140 ML/MIN (>60); Globulin 2.7 g/dL (1.3-3.2); Glucose 96 mg/dl (74-100); Lipase 96 U/L (23-300); Potassium 3.8 mmoL/L (3.5-5.1); Sodium 120 mmol/L (136-145); Total Protein,Serum 7.4 g/dl (6.3-8.2)
[2024-04-14] MEDS: MVI, ADULT NO.1 WITH VIT K 10 ML, THIAMINE HCL 100 MG, MAGNESIUM SULFATE 2 GM in LACTAT... 500 ML IV (08:04)
[2024-04-14 08:06] LABS: Activated Partial Thrombo Time 27.8 seconds (22.8-30.6)
[2024-04-14 08:13] LABS: NT Pro Brain Natriuretic Pep. 82.3 pg/mL (0-125)
[2024-04-14 08:16] LABS: Troponin I < 0.01 ng/ml (0.00-0.034)
--- NOTE | 2024-04-14 09:02 | PC.NURSE ---
HS aware of admission
--- NOTE | 2024-04-14 09:20 | HMH.PHAINT1 ---
Pharmacy Intervention Comments: MEDICATION RECONCILIATION COMPLETED ON PATIENT USING EXTERNAL FILL HISTORY FROM PHARMACY, LIST FROM PCP OFFICE, AND PILO REPORT. -NIKOLE REYESD
[2024-04-14] MEDS: ACETAMINOPHEN 325MG TAB 650 MG PO (10:33)
[2024-04-14] MEDS: LORazepam 1MG TABLET 1 MG PO (10:33)
[2024-04-14] MEDS: SODIUM CHLORIDE 3 % 500 ML 25 ML IV (10:50)
[2024-04-14 11:37] LABS: Troponin I < 0.01 ng/ml (0.00-0.034)
[2024-04-14 11:50] LABS: Reflex Lactic Add Lactic Reflex
[2024-04-14] MEDS: PANTOPRAZOLE 40MG TABLET 40 MG PO (12:07)
[2024-04-14] MEDS: levETIRAcetam 500 MG TABLET PO ×2 (12:07→20:44)
[2024-04-14] MEDS: LORazepam 1MG TABLET 2 MG PO (12:07)
--- NOTE | 2024-04-14 14:44 | PC.NURSE ---
pt asleep when q4h CIWA due. will complete when pt awake
--- NOTE | 2024-04-14 15:06 | PC.NURSE ---
ARRIVED BY AVINASH @[id number]
[2024-04-14 15:19] LABS: Albumin Level 4.1 g/dl (3.5-5.0); Chloride 89 mmol/L (98-107); Sodium 125 mmol/L (136-145)
[2024-04-14 15:20] LABS: Potassium 4.8 mmoL/L (3.5-5.1)
[2024-04-14 15:22] LABS: Alanine Aminotransferase 13 U/L (12-78); Anion Gap 11.8 mEq/L (5-15); Aspartate Amino Transferase 33 U/L (17-59); Bilirubin,Total 0.8 mg/dl (0.2-1.3); Blood Urea Nitrogen 8 mg/dl (9-20); Carbon Dioxide 29 mmol/L (22.0-30.0); Creatinine Clearance Estimated 100 mL/min (50-200); Estimated Glomerular Filt Rate 115 ml/min (>60); GFR (African American) 140 ML/MIN (>60)
[2024-04-14 15:23] LABS: Albumin/Globulin Ratio 1.7 (1.1-1.8); Alkaline Phosphatase 83 U/L (38-126); Calcium 9.4 mg/dl (8.4-10.2); Globulin 2.4 g/dL (1.3-3.2); Glucose 99 mg/dl (74-100); Total Protein,Serum 6.5 g/dl (6.3-8.2)
[2024-04-14 15:39] LABS: Troponin I < 0.01 ng/ml (0.00-0.034)
--- NOTE | 2024-04-14 16:03 | P.HP_ITS ---
History of Present Illness *History of present illness: Nelson Casarez is a 59-year-old male with a medical history significant for alcohol use disorder, seizure disorder associated with AUD, chronic pancreatitis with pancreatic pseudocyst, COPD on room air, metastatic non-small cell lung cancer to spine s/p radiation and chemotherapy presented with vomiting. Patient states that he had a seizure and started vomiting this morning, 04/14. States that the last time he drank alcohol prior to this seizure was about 48 hours ago. States that he had a seizure, started drinking alcohol. Has been vomiting since that time. No blood or bile in his vomit. Also having associated new diarrhea this been going on for approximately 2 days. States that he is also having substernal chest pain that does not radiate and is nonpositional, not associated with any other symptoms started last night, 04/13 before he went to bed. Still intermittent today. No abdominal pain, urinary symptoms, shortness of breath, cough, fevers, melena or hematochezia, or any other notable symptoms or history. History was obtained via conversation with patient and EMS. On arrival, patient hemodynamically stable, alert, oriented x4, appropriate, GCS 15, moving all extremities spontaneously, pupils equal and reactive to light. Full physical exam performed and significant for 59-year-old male in no acute distress. Workup in the ED significant for sodium 120, serum alcohol 151. CXR unremarkable for acute findings. Case discussed with ED provider and decision was made to admit patient for alcohol withdrawal and hyponatremia. [facility] Disclaimer: The information contained in this section may have been updated after the patient was seen, as this information can be updated by other users. Medical History Lung nodule Acute on chronic pancreatitis Acute on chronic pancreatitis Hypochloremia Hearing loss Pancreatic pseudocyst Chronic alcohol abuse Bipolar 1 disorder Seizures Abdominal aneurysm Excessive cerumen in left ear canal SBO (small bowel obstruction) Acute pancreatitis Cachexia Acute on chronic pancreatitis Gastrostomy tube dependent Metastatic non-small cell lung cancer Severe protein-calorie malnutrition Lung cancer metastatic to bone Abdominal pain Pancreatic pseudocyst Abdominal pain Bone marrow disorder Cirrhosis COPD (chronic obstructive pulmonary disease) GERD (gastroesophageal reflux disease) Gastric outlet obstruction History of lung cancer Pancreatic pseudocyst Alcoholic pancreatitis Anxiety History of lung cancer Alcohol abuse Pancreatitis, acute Gallstone pancreatitis Pancreatitis Hypokalemia Surgical History History of local excision of skin lesion History of aortic aneurysm repair History of cholecystectomy Hx of cholecystectomy Family History Other Cancer of lung Emphysema lung Social History (Updated 04/14/24 @ 11:30 by Pita Reeves RN) Smoking Status: Current every day smoker tobacco type: cigarettes packs per day: 3 alcohol intake: current alcohol intake frequency: a few times a week substance use type: denies use current occupational status: unemployed and disabled Travel in the last 8 weeks: None household members: family housing: house current occupational exposures/hazards: No caffeine: No Other Medical History Have you received the Flu Vaccine for this season: No Have you received the Pneumonia Vaccine: No Meds Home Medications and Allergies Home Medications ?Medication ?Instructions ?Recorded ?Confirmed ?Type folic acid 1 mg tablet 1 mg PO DAILY #100 tabs 12/01/23 04/14/24 Rx thiamine HCl (vitamin B1) 100 mg 100 mg PO DAILY #100 tabs 12/01/23 04/14/24 Rx tablet ascorbic acid (vitamin C) 250 mg 250 mg PO DAILY 02/04/24 04/14/24 History tablet albuterol sulfate 90 mcg/actuation 1 inh inhalation Q4HP PRN 02/12/24 04/14/24 Rx breath activated powder Shortness Of Breath #1 ea inhaler,sensor lorazepam 2 mg tablet 2 mg PO BIDP PRN Anxiety #60 tabs 02/12/24 04/14/24 Rx pantoprazole 40 mg tablet,delayed 40 mg PO DAILY #90 tabs 03/15/24 04/14/24 Rx release fluticasone propionate 50 2 spray intranasal BID 04/14/24 04/14/24 History mcg/actuation nasal spray,suspension (Flonase Allergy Relief) levetiracetam 500 mg tablet 500 mg PO BID 04/14/24 04/14/24 History wqwjpd-iwkoebmn-asnkjws 6 cap PO BIDWMEAL 04/14/24 04/14/24 History 36,000-114,000-180,000 unit capsule,delay rel oxycodone 10 mg tablet 10 mg PO BIDP PRN Moderate Pain 04/14/24 04/14/24 History (Scale Score 5-6) promethazine 25 mg tablet 25 mg PO Q6HP PRN nausea and 04/14/24 04/14/24 History vomiting sennosides 8.6 mg-docusate sodium 1 tab-cap PO BIDP PRN constipation 04/14/24 04/14/24 History 50 mg capsule (Senna Plus) sucralfate 1 gram tablet (Carafate) 1 g PO BID 04/14/24 04/14/24 History New Prescriptions to Start Prescriptions: Allergies Allergy/AdvReac Type Severity Reaction Status Date / Time cephalexin (From Keflex) Allergy Mild Hives Verified 03/26/24 10:21 sulfamethoxazole (From Allergy Unknown Hives Verified 03/26/24 10:21 BACTRIM) trimethoprim (From BACTRIM) Allergy Unknown Hives Verified 03/26/24 10:21 Exam Data for Last 24 hours Vital signs and Labs for Last 24 Hours: Temp Pulse Resp BP Pulse Ox O2 Del Method 98.9 F 76 18 132/71 93 L Room Air 04/14/24 12:00 04/14/24 14:00 04/14/24 14:00 04/14/24 14:00 04/14/24 14:00 04/14/24 15:05 Laboratory Results - last 24 hr 04/14/24 07:37: WBC 9.6, RBC 4.39 L, Hgb 14.7, Hct 40.4 L, MCV 92.0, MCH 33.4 H, MCHC 36.3 H, RDW 14.0, Plt Count 163, MPV 7.7, Neut % (Auto) 83.4 H, Lymph % (Auto) 7.2 L, Andrew % (Auto) 7.4, Eos % (Auto) 1.5, Baso % (Auto) 0.5, Neut # (Auto) 8.0 H, Lymph # (Auto) 0.7, Andrew # (Auto) 0.7, Eos # (Auto) 0.1, Baso # (Auto) 0.1, PT 10.4, INR 0.92, APTT 27.8, Sodium 120 L, Potassium 3.8, Chloride 80 L, Carbon Dioxide 29, Anion Gap 14.8, BUN 7 L, Creatinine 0.70, Estimated Creat Clear 87, Estimated GFR 115, Est GFR ( Amer) 140, Glucose 96, Calcium 10.3 H, Total Bilirubin 0.8, AST 36, ALT 17, Alkaline Phosphatase 96, Troponin I < 0.01, NT-Pro-B Natriuret Pep 82.3, Total Protein 7.4, Albumin 4.7, Globulin 2.7, Albumin/Globulin Ratio 1.7, Lipase 96, Plasma/Serum Alcohol 151 H 04/14/24 07:40: VBG pH 7.39, VBG pCO2 47.0, VBG pO2 26.9 L, VBG HCO3 27.5, VBG Total CO2 28.9 H, VBG O2 Saturation 50.1, VBG Base Excess 2.5 H, VBG Lactic Acid 2.9 H 04/14/24 07:55: Blood Type A Positive, Antibody Screen Negative 04/14/24 10:55: Troponin I < 0.01 04/14/24 12:15: Lactate 2.0 04/14/24 15:00: Sodium 125 L, Potassium 4.8 D, Chloride 89 L, Carbon Dioxide 29, Anion Gap 11.8, BUN 8 L, Creatinine 0.70, Estimated Creat Clear 100, Estimated GFR 115, Est GFR ( Amer) 140, Glucose 99, Calcium 9.4, Total Bilirubin 0.8, AST 33, ALT 13, Alkaline Phosphatase 83, Troponin I < 0.01, Total Protein 6.5, Albumin 4.1 D, Globulin 2.4, Albumin/Globulin Ratio 1.7 I & O for Last 24 hours: Intake & Output 04/11/24 04/12/24 04/13/24 04/14/24 23:59 23:59 23:59 23:59 Intake Total 1473 / 1473 Output Total 2550 / 2550 Balance -1077 / -1077 Weight 61.915 kg Constitutional Constitutional: no acute distress *Routine HEENT Exam Head: Present normocephalic Eye: Present EOMI and PERRL ENT: Present mucous membranes moist *Routine Neck Exam Neck: Present supple; Absent lymphadenopathy *Routine Respiratory Exam Respiratory: Present CTA bilaterally *Routine Cardiovascular Exam Cardiovascular: Present RRR *Routine Abdominal Exam Abdominal: Present soft and normoactive bowel sounds; Absent tenderness *Routine Rectal Exam Rectal:: deferred *Routine Genitalia Exam Genitalia:: deferred *Routine Extremities Exam Extremities: Absent cyanosis, clubbing or edema *Routine Skin Exam Skin: Present warm; Absent rash *Routine Neurological Exam Neurological: Present alert and oriented X3 Assessment and Plan *Assessment and plan (1) Hyponatremia: Status: Resolved Category: Medical Code(s): E87.1 - Hypo-osmolality and hyponatremia (2) Alcohol withdrawal: Status: Acute Category: Medical Code(s): F10.939 - Alcohol use, unspecified with withdrawal, unspecified Plan Nelson Casarez is a 59-year-old male with a medical history significant for alcoh ol use disorder, seizure disorder associated with AUD, chronic pancreatitis with pancreatic pseudocyst, COPD on room air, metastatic non-small cell lung cancer to spine s/p radiation and chemotherapy presented with vomiting. Patient states that he had a seizure and started vomiting this morning, 04/14. States that the last time he drank alcohol prior to this seizure was about 48 hours ago. States that he had a seizure, started drinking alcohol. Has been vomiting since that time. No blood or bile in his vomit. Also having associated new diarrhea this been going on for approximately 2 days. States that he is also having substernal chest pain that does not radiate and is nonpositional, not associated with any other symptoms started last night, 04/13 before he went to bed. Still intermittent today. No abdominal pain, urinary symptoms, shortness of breath, cough, fevers, melena or hematochezia, or any other notable symptoms or history. History was obtained via conversation with patient and EMS. On arrival, patient hemodynamically stable, alert, oriented x4, appropriate, GCS 15, moving all extremities spontaneously, pupils equal and reactive to light. Full physical exam performed and significant for 59-year-old male in no acute distress. Workup in the ED significant for sodium 120, serum alcohol 151. CXR unremarkable for acute findings. Case discussed with ED provider and decision was made to admit patient for alcohol withdrawal and hyponatremia. #Symptomatic hyponatremia #Suspected beer potomania ? Patient has a longstanding history of alcohol use disorder, has been drinking a lot more over the past weeks. Mother earlier this year. Stopped drinking about 2 days ago, apparently had seizure-like activity this morning and started drinking again. ? Admitted for similar presentation about in January. Responded well to fluid restriction. ? Initial sodium 120, serum alcohol level 151. ? Hyponatremia is most likely due to beer potomania at this time. However, patient does have history of metastatic non-small cell lung cancer s/p radiation and chemotherapy. ? Given hypertonic saline for 4 hours, sodium improved to 125. ? Fluid restriction 1500 mL/day. ? Max sodium correction 8 to 10 mEq/day. ? Follow-up BMP at 9 PM. #Alcohol use disorder #Alcohol withdrawal #History of seizures ? Patient is interested in detox. Case management consulted, pending recommendations. ? Consider starting naltrexone on discharge. ? CIWA protocol. Ativan as needed. Multivitamins. Received banana bag in the ED. ? Resumed home Keppra 500 mg twice daily. #Chronic pancreatitis with pseudocyst ? Restarted home Creon and oxycodone. #COPD ? DuoNebs 3 times daily as patient does have mild increased cough. Full code DVT prophylaxis: Lovenox 40 mg
[2024-04-14] MEDS: LIPASE/PROTEASE/AMYLASE 1 EACH CAPSULE.DR 6 EACH PO (16:52)
[2024-04-14] MEDS: OXYCODONE 5MG IMMEDIATE RELEASE TABLET 10 MG PO (16:52)
[2024-04-14] MEDS: MULTIVITAMIN TABLET 1 EACH PO (16:52)
[2024-04-14] MEDS: PHENOL THROAT SPRAY 177 ML BOTTLE PO (18:37)
[2024-04-14] MEDS: IPRATROPIUM/ALBUTEROL 3 ML NEB IH (18:58)
--- NOTE | 2024-04-14 21:42 | PEERSUPPORT ---
Peer Support Note Patient Information Patient Information: DOS: ? Pt is emotional when sharing of his drinking and history. He is aware of the effects to his health and does not understand why he keeps drinking. Pt is grieving the of his mother and aware that drinking is how he has coped to not feel the loss knowing it is not healthy. ? Ps provided empathetic listening to validate feelings without judgement. ? Patient has insight to alcoholic anonymous saying he use to attend meetings and they did help him. He stopped attending due to not having enough money to travel. ? Ps suggest online options providing links to access these on a phone that is compatible. ? Pt states he is addicted to drugs as well. Ps explored what drugs, the pain pills that are prescribed from my primary care doctor for years for my pain . ? Ps inquired if he feels they are a problem for him, pt states no but he feels he will not be able to live without them. ? Ps shared personal relevant stories to inform of alternative or added options to pain management as well as proper medication management without misuse or abuse. -Therapy -Support Group ? Pt has benefited from therapy at [facility] in [facility]. He stopped going due to not having gas money to travel. ? Support System: Sister- very supportive and compassionate ? Current Stressors: Alcohol withdrawals Health concerns: Pt is scared to catch any cold or flu including covid, he thinks he would . ? Patient says he is losing weight and very weak unable to eat. Fear that inpatient would reject him due to his pancreas condition. ? Motivation for Change: Fair: Patient is concerned with his health and is scared he will if he does not make changes to how he is living. He shows interested in inpatient. Patient would need to detox from opiates and he is concerned of that. ? Potential Barriers: Local store within walking distance to buy alcohol. Chronic health conditions limiting him to treatment options. Opiates RX continued disapproval through treatment facilities. Travel expenses to AA meetings. ? Harm Reduction: Therapy for processing grief Attend AA meetings- Discuss with provider medication options: Naltrexone Agreed to follow up phone calls with [facility] [employer]? Attend judaism ? Recovery Plan: -Consider options of treatment and medications, discuss with provider and nurse. -Step works information with nurse if decides to detox from opiates(medical detox available within facility if medically cleared from [facility]) -[facility] will continue to follow up with patient post discharge. ? Thank you for allowing [facility] peer support to assist in caring for patient!
[2024-04-14 21:54] LABS: Chloride 89 mmol/L (98-107); Potassium 4.3 mmoL/L (3.5-5.1); Sodium 126 mmol/L (136-145)
[2024-04-14 21:57] LABS: Anion Gap 12.3 mEq/L (5-15); Blood Urea Nitrogen 10 mg/dl (9-20); Calcium 8.8 mg/dl (8.4-10.2); Carbon Dioxide 29 mmol/L (22.0-30.0); Creatinine Clearance Estimated 87 mL/min (50-200); Estimated Glomerular Filt Rate 99 ml/min (>60); GFR (African American) 120 ML/MIN (>60); Glucose 215 mg/dl (74-100)
[2024-04-15] VITALS (11 sets, daily range): BP systolic 107–127; BP diastolic 55–75; PULSE 60–98; RESP 14–22; TEMP 36.9–37.5; O2SAT 93–98; BMI 20.7
[2024-04-15] MEDS: KETOROLAC 30MG/ML VIAL 15 MG IV (00:01)
[2024-04-15] MEDS: LORazepam 1MG TABLET 2 MG PO ×2 (00:01→12:08)
[2024-04-15 06:29] LABS: Alanine Aminotransferase 11 U/L (12-78); Albumin Level 3.5 g/dl (3.5-5.0); Albumin/Globulin Ratio 1.5 (1.1-1.8); Alkaline Phosphatase 74 U/L (38-126); Aspartate Amino Transferase 28 U/L (17-59); Bilirubin,Total 0.8 mg/dl (0.2-1.3); Blood Urea Nitrogen 11 mg/dl (9-20); Calcium 8.7 mg/dl (8.4-10.2); Carbon Dioxide 30 mmol/L (22.0-30.0); Chloride 92 mmol/L (98-107); Creatinine Clearance Estimated 87 mL/min (50-200); Estimated Glomerular Filt Rate 99 ml/min (>60); GFR (African American) 120 ML/MIN (>60); Globulin 2.3 g/dL (1.3-3.2); Glucose 92 mg/dl (74-100); Magnesium 1.9 mg/dl (1.6-2.3); Phosphorous 3.3 mg/dl (2.5-4.5); Sodium 126 mmol/L (136-145); Total Protein,Serum 5.8 g/dl (6.3-8.2)
[2024-04-15] MEDS: IPRATROPIUM/ALBUTEROL 3 ML NEB IH ×2 (06:32→13:03)
[2024-04-15 06:37] LABS: Eosinophils % 0.9 % (0.1-12.0); Lymphocytes # 0.8 K/mm3 (0.7-4.5); Lymphocytes % 17.9 % (10-50); Mean Corpuscular HGB Conc 34.7 g/dL (31.8-35.4); Mean Corpuscular Hemoglobin 32.3 pg (27.0-31.2); Mean Corpuscular Volume 93.1 fl (80-94); Mean Platelet Volume 8.1 fl (7.4-10.4); Monocytes # 0.4 K/mm3 (0.1-1.0); Neutrophils # 2.9 K/mm3 (1.8-7.8); Neutrophils % 70.2 % (37.0-80.0); Platelet Count 119 K/mm3 (142-424); Red Blood Count 3.66 M/mm3 (4.60-6.20); Red Cell Distribution Width 14.4 % (11.5-17.5); White Blood Count 4.1 K/mm3 (4.8-10.8)
[2024-04-15 06:55] LABS: Hemoglobin 11.8 g/dL (14.1-18.0)
[2024-04-15] MEDS: LIPASE/PROTEASE/AMYLASE 1 EACH CAPSULE.DR 6 EACH PO (08:07)
[2024-04-15] MEDS: FOLIC ACID 1MG TABLET 1 MG PO (08:07)
[2024-04-15] MEDS: PANTOPRAZOLE 40MG TABLET 40 MG PO (08:07)
[2024-04-15] MEDS: levETIRAcetam 500 MG TABLET PO (08:07)
[2024-04-15] MEDS: THIAMINE 100MG TABLET 100 MG PO (08:07)
[2024-04-15] MEDS: ENOXAPARIN 40MG/0.4ML SYRINGE 40 MG SUBCUT (08:08)
[2024-04-15 08:30] LABS: Chol/HDL Ratio 1.8 (1-3.5); Cholesterol 108 mg/dl (140-200); HDL Cholesterol 61 mg/dl (40-60); Triglycerides 43 mg/dl (30-150); VLDL Cholesterol 9 mg/dL (0-40)
[2024-04-15 08:41] LABS: Direct LDL Cholesterol 38.89 mg/dL (100-129)
[2024-04-15 09:01] LABS: Thyroid Stimulating Hormone 2.85 uIU/mL (0.465-4.68)
[2024-04-15] MEDS: OXYCODONE 5MG IMMEDIATE RELEASE TABLET 10 MG PO (12:31)
[2024-04-15 13:46] LABS: Anion Gap 10.8 mEq/L (5-15); Blood Urea Nitrogen 10 mg/dl (9-20); Calcium 8.7 mg/dl (8.4-10.2); Carbon Dioxide 30 mmol/L (22.0-30.0); Chloride 92 mmol/L (98-107); Creatinine Clearance Estimated 87 mL/min (50-200); Estimated Glomerular Filt Rate 99 ml/min (>60); GFR (African American) 120 ML/MIN (>60); Glucose 169 mg/dl (74-100); Potassium 3.8 mmoL/L (3.5-5.1); Sodium 129 mmol/L (136-145)
--- NOTE | 2024-04-15 14:38 | EXP.DC.SUM ---
General Admission date:: 04/14/24 HPI HPI HPI: Nelson Casarez is a 59-year-old male with a medical history significant for alcohol use disorder, seizure disorder associated with AUD, chronic pancreatitis with pancreatic pseudocyst, COPD on room air, metastatic non-small cell lung cancer to spine s/p radiation and chemotherapy presented with vomiting. Patient states that he had a seizure and started vomiting this morning, 04/14. States that the last time he drank alcohol prior to this seizure was about 48 hours ago. States that he had a seizure, started drinking alcohol. Has been vomiting since that time. No blood or bile in his vomit. Also having associated new diarrhea this been going on for approximately 2 days. States that he is also having substernal chest pain that does not radiate and is nonpositional, not associated with any other symptoms started last night, 04/13 before he went to bed. Still intermittent today. No abdominal pain, urinary symptoms, shortness of breath, cough, fevers, melena or hematochezia, or any other notable symptoms or history. History was obtained via conversation with patient and EMS. On arrival, patient hemodynamically stable, alert, oriented x4, appropriate, GCS 15, moving all extremities spontaneously, pupils equal and reactive to light. Full physical exam performed and significant for 59-year-old male in no acute distress. Workup in the ED significant for sodium 120, serum alcohol 151. CXR unremarkable for acute findings. Case discussed with ED provider and decision was made to admit patient for alcohol withdrawal and hyponatremia. Hospital Course Hospital Course Hospital Course: Nelson Casarez is a 59-year-old male with a medical history significant for alcohol use disorder, seizure disorder associated with AUD, chronic pancreatitis with pancreatic pseudocyst, COPD on room air, metastatic non-small cell lung cancer to spine s/p radiation and chemotherapy presented with vomiting. Patient states that he had a seizure and started vomiting this morning, 04/14. States that the last time he drank alcohol prior to this seizure was about 48 hours ago. States that he had a seizure, started drinking alcohol. Has been vomiting since that time. No blood or bile in his vomit. Also having associated new diarrhea this been going on for approximately 2 days. States that he is also having substernal chest pain that does not radiate and is nonpositional, not associated with any other symptoms started last night, 04/13 before he went to bed. Still intermittent today. No abdominal pain, urinary symptoms, shortness of breath, cough, fevers, melena or hematochezia, or any other notable symptoms or history. History was obtained via conversation with patient and EMS. On arrival, patient hemodynamically stable, alert, oriented x4, appropriate, GCS 15, moving all extremities spontaneously, pupils equal and reactive to light. Full physical exam performed and significant for 59-year-old male in no acute distress. Workup in the ED significant for sodium 120, serum alcohol 151. CXR unremarkable for acute findings. Case discussed with ED provider and decision was made to admit patient for alcohol withdrawal and hyponatremia. #Symptomatic hyponatremia #Suspected beer potomania ? Patient has a longstanding history of alcohol use disorder, has been drinking a lot more over the past weeks. Mother earlier this year. Stopped drinking about 2 days ago, apparently had seizure-like activity this morning and started drinking again. ? Admitted for similar presentation about in January. Responded well to fluid restriction. - Na improved from 120 to 129 over 24 hours with hypertonic saline, fluid restriction. - AOx4. Motivated to stop drinking. - Referred to [facility]. Initially was interested in inpatient rehab but changed his mind. - Discharged with naltrexone 50mg. Will follow-up with [facility]. #Alcohol use disorder #Alcohol withdrawal #History of seizures ? Patient is interested in detox. ? [facility] protocol. Ativan as needed, though required minimal. Multivitamins. ? Resumed home Keppra 500 mg twice daily. - Naltrexone and [facility] referral as above. #Chronic pancreatitis with pseudocyst ? Restarted home Creon and oxycodone. #COPD ? Resume home albuterol. Previously prescribed LABA/LAMA but unable to afford. Exam Data for Last 24 hours Vital signs and Labs for Last 24 Hours: Temp Pulse Resp BP Pulse Ox O2 Del Method 98.6 F 70 20 115/60 97 Room Air 04/15/24 12:00 04/15/24 13:03 04/15/24 12:00 04/15/24 12:00 04/15/24 13:03 04/15/24 13:20 Laboratory Results - last 24 hr 04/14/24 15:00: Sodium 125 L, Potassium 4.8 D, Chloride 89 L, Carbon Dioxide 29, Anion Gap 11.8, BUN 8 L, Creatinine 0.70, Estimated Creat Clear 100, Estimated GFR 115, Est GFR ([facility]) 140, Glucose 99, Calcium 9.4, Total Bilirubin 0.8, AST 33, ALT 13, Alkaline Phosphatase 83, Troponin I < 0.01, Total Protein 6.5, Albumin 4.1 D, Globulin 2.4, Albumin/Globulin Ratio 1.7 04/14/24 21:39: Sodium 126 L, Potassium 4.3, Chloride 89 L, Carbon Dioxide 29, Anion Gap 12.3, BUN 10, Creatinine 0.80, Estimated Creat Clear 87, Estimated GFR 99, [facility] 120, Glucose 215 H D, Calcium 8.8 04/15/24 05:24: WBC 4.1 L D, RBC 3.66 L, Hgb 11.8 L D, Hct 34.0 L, MCV 93.1, MCH 32.3 H, MCHC 34.7, RDW 14.4, Plt Count 119 L D, MPV 8.1, Neut % (Auto) 70.2, Lymph % (Auto) 17.9, Hutchinson % (Auto) 10.0 H, Eos % (Auto) 0.9, Baso % (Auto) 1.0, Neut # (Auto) 2.9, Lymph # (Auto) 0.8, Hutchinson # (Auto) 0.4, Eos # (Auto) 0.0, Baso # (Auto) 0.0, Sodium 126 L, Potassium 4.0, Chloride 92 L, Carbon Dioxide 30, Anion Gap 8.0, BUN 11, Creatinine 0.80, Estimated Creat Clear 87, Estimated GFR 99, Est GFR ([facility]) 120, Glucose 92 D, Calcium 8.7, Phosphorus 3.3, Magnesium 1.9, Total Bilirubin 0.8, AST 28, ALT 11 L, Alkaline Phosphatase 74, Total Protein 5.8 L, Albumin 3.5 D, Globulin 2.3, Albumin/Globulin Ratio 1.5, Triglycerides 43, Cholesterol 108 L, LDL Cholesterol Direct 38.89 L, VLDL Cholesterol 9, HDL Cholesterol 61 H, Cholesterol/HDL Ratio 1.8, TSH 2.85 04/15/24 13:20: Sodium 129 L, Potassium 3.8, Chloride 92 L, Carbon Dioxide 30, Anion Gap 10.8, BUN 10, Creatinine 0.80, Estimated Creat Clear 87, Estimated GFR 99, Est GFR ( Amer) 120, Glucose 169 H D, Calcium 8.7 I & O for Last 24 hours: Intake & Output 04/12/24 04/13/24 04/14/24 04/15/24 23:59 23:59 23:59 23:59 Intake Total 1683 / 1913 455 / 455 Output Total 3000 / 3000 400 / 400 Balance -1317 / -1087 55 / 55 Weight 61.915 kg 62.006 kg Constitutional Constitutional: no acute distress *Routine HEENT Exam Head: Present normocephalic Eye: Present EOMI and PERRL ENT: Present mucous membranes moist *Routine Neck Exam Neck: Present supple; Absent lymphadenopathy *Routine Respiratory Exam Respiratory: Present CTA bilaterally *Routine Cardiovascular Exam Cardiovascular: Present RRR *Routine Abdominal Exam Abdominal: Present soft and normoactive bowel sounds; Absent tenderness *Routine Extremities Exam Extremities: Absent cyanosis, clubbing or edema *Routine Skin Exam Skin: Present warm; Absent rash *Routine Neurological Exam Neurological: Present alert and oriented X3 Results Data Completed and Pending Labs on day of discharge: Labs from last 24 hours 04/15/24 04/15/24 04/14/24 13:20 05:24 21:39 WBC 4.1 L D RBC 3.66 L Hgb 11.8 L D Hct 34.0 L MCV 93.1 MCH 32.3 H MCHC 34.7 RDW 14.4 Plt Count 119 L D MPV 8.1 Neut % (Auto) 70.2 Lymph % (Auto) 17.9 Hutchinson % (Auto) 10.0 H Eos % (Auto) 0.9 Baso % (Auto) 1.0 Neut # (Auto) 2.9 Lymph # (Auto) 0.8 Hutchinson # (Auto) 0.4 Eos # (Auto) 0.0 Baso # (Auto) 0.0 Sodium 129 L 126 L 126 L Potassium 3.8 4.0 4.3 Chloride 92 L 92 L 89 L Carbon Dioxide 30 30 29 Anion Gap 10.8 8.0 12.3 BUN 10 11 10 Creatinine 0.80 0.80 0.80 Estimated Creat Clear 87 87 87 Estimated GFR 99 99 99 Est GFR ( Amer) 120 120 120 Glucose 169 H D 92 D 215 H D Calcium 8.7 8.7 8.8 Phosphorus 3.3 Magnesium 1.9 Total Bilirubin 0.8 AST 28 ALT 11 L Alkaline Phosphatase 74 Troponin I Total Protein 5.8 L Albumin 3.5 D Globulin 2.3 Albumin/Globulin Ratio 1.5 Triglycerides 43 Cholesterol 108 L LDL Cholesterol Direct 38.89 L VLDL Cholesterol 9 HDL Cholesterol 61 H Cholesterol/HDL Ratio 1.8 TSH 2.85 04/14/24 15:00 WBC RBC Hgb Hct MCV MCH MCHC RDW Plt Count MPV Neut % (Auto) Lymph % (Auto) Hutchinson % (Auto) Eos % (Auto) Baso % (Auto) Neut # (Auto) Lymph # (Auto) Hutchinson # (Auto) Eos # (Auto) Baso # (Auto) Sodium 125 L Potassium 4.8 D Chloride 89 L Carbon Dioxide 29 Anion Gap 11.8 BUN 8 L Creatinine 0.70 Estimated Creat Clear 100 Estimated GFR 115 Est GFR ( Amer) 140 Glucose 99 Calcium 9.4 Phosphorus Magnesium Total Bilirubin 0.8 AST 33 ALT 13 Alkaline Phosphatase 83 Troponin I < 0.01 Total Protein 6.5 Albumin 4.1 D Globulin 2.4 Albumin/Globulin Ratio 1.7 Triglycerides Cholesterol LDL Cholesterol Direct VLDL Cholesterol HDL Cholesterol Cholesterol/HDL Ratio TSH DS: Diagnosis Discharge Diagnosis (1) Hyponatremia: Status: Resolved Code(s): E87.1 - Hypo-osmolality and hyponatremia (2) Alcohol withdrawal: Status: Acute Code(s): F10.939 - Alcohol use, unspecified with withdrawal, unspecified Meds Home Medications and Allergies Home Medications ?Medication ?Instructions ?Recorded ?Confirmed ?Type folic acid 1 mg tablet 1 mg PO DAILY #100 tabs 12/01/23 04/14/24 Rx thiamine HCl (vitamin B1) 100 mg 100 mg PO DAILY #100 tabs 12/01/23 04/14/24 Rx tablet ascorbic acid (vitamin C) 250 mg 250 mg PO DAILY 02/04/24 04/14/24 History tablet albuterol sulfate 90 mcg/actuation 1 inh inhalation Q4HP PRN 02/12/24 04/14/24 Rx breath activated powder Shortness Of Breath #1 ea inhaler,sensor pantoprazole 40 mg tablet,delayed 40 mg PO DAILY #90 tabs 03/15/24 04/14/24 Rx release fluticasone propionate 50 2 spray intranasal BID 04/14/24 04/14/24 History mcg/actuation nasal spray,suspension (Flonase Allergy Relief) [id number] 6 cap PO BIDWMEAL 04/14/24 04/14/24 History 36,000-114,000-180,000 unit capsule,delay rel oxycodone 10 mg tablet 10 mg PO BIDP PRN Moderate Pain 04/14/24 04/14/24 History (Scale Score 5-6) promethazine 25 mg tablet 25 mg PO Q6HP PRN nausea and 04/14/24 04/14/24 History vomiting sennosides 8.6 mg-docusate sodium 1 tab-cap PO BIDP PRN constipation 04/14/24 04/14/24 History 50 mg capsule (Senna Plus) sucralfate 1 gram tablet (Carafate) 1 g PO BID 04/14/24 04/14/24 History naltrexone 50 mg tablet 50 mg PO DAILY #30 tabs 04/15/24 Rx levetiracetam 500 mg tablet 500 mg PO BID #60 tabs 04/26/24 Rx lorazepam 2 mg tablet 2 mg PO BIDP PRN Anxiety #60 tabs 04/28/24 Rx New Prescriptions to Start Prescriptions: Vitor Becerra Allergies Allergy/AdvReac Type Severity Reaction Status Date / Time cephalexin (From Keflex) Allergy Mild Hives Verified 03/26/24 10:21 sulfamethoxazole (From Allergy Unknown Hives Verified 03/26/24 10:21 BACTRIM) trimethoprim (From BACTRIM) Allergy Unknown Hives Verified 03/26/24 10:21 Discharge Plan Disposition Patient Disposition: Home, Self-Care Follow up Plan Follow up with: Richard Edgar MD [Primary Care Provider] - 1 week (Call office to make appointment) Prescriptions/Medication Reconciliation: New naltrexone 50 mg tablet 50 mg PO DAILY Qty: 30 0RF Continued folic acid 1 mg tablet 1 mg PO DAILY Qty: 100 10RF thiamine HCl (vitamin B1) 100 mg tablet 100 mg PO DAILY Qty: 100 10RF albuterol sulfate 90 mcg/actuation aero powdr breath act w/sensor 1 inh IH Q4HP PRN (Reason: Shortness Of Breath) Qty: 1 12RF pantoprazole 40 mg tablet,delayed release (DR/EC) 40 mg PO DAILY Qty: 90 0RF ascorbic acid (vitamin C) 250 mg tablet 250 mg PO DAILY sucralfate [Carafate] 1 gram tablet 1 g PO BID promethazine 25 mg tablet 25 mg PO Q6HP PRN (Reason: nausea and vomiting) fluticasone propionate [Flonase Allergy Relief] 50 mcg/actuation spray,suspension 2 spray intranasal BID Rx Instructions: administer into each nostril oxycodone 10 mg tablet 10 mg PO BIDP PRN (Reason: Moderate Pain (Scale Score 5-6)) [id number]-cxssplis-tkdnyon 36,000-114,000- 180,000 unit capsule,delayed release(DR/EC) 6 cap PO BIDWMEAL Senna Plus 8.6-50 mg capsule 1 tab-cap PO BIDP PRN (Reason: constipation) No Action levetiracetam 500 mg tablet 500 mg PO BID Qty: 60 2RF lorazepam 2 mg tablet 2 mg PO BIDP PRN (Reason: Anxiety) Qty: 60 3RF Rx Instructions: for anxiety and control of seizures Problem Reconciliation Problems Reviewed?: Yes Patient Discharge Instructions Patient Instructions: DI for Hyponatremia, DI for Muscle Weakness, Hyponatremia-Adult Print Language: Palestinian Providers Primary Care Provider: Richard Edgar Admit Provider: João Milan Attending Provider: João Milan
--- NOTE | 2024-04-19 11:03 | SW/DCPLANNER ---
Spoke with patient on the phone. Patient stated that he thinks he is coming down with a cold. Patient stated that he is aware of his appointments and that he was able to get his new medicine filled and that he took it and made him feel funny and had to call 911 and he flushed the medicine down the toilet. Patient stated he had no concerns or questions at this time. Vish Kimble
== END 2024-04-15 16:08 | disposition home or self-care (01) ==
LOC: ER 08:22 → 2ND 09:18
PROVIDERS: Student in an Organized Health Care Education/Training Program; Admitting Provider Internal Medicine Adolescent Medicine; Emergency Provider Emergency Medicine; PCP Family Medicine; Visit Provider Internal Medicine Adolescent Medicine
DX: E87.1 Hypo-osmolality and hyponatremia (principal); F10.139 Alcohol abuse with withdrawal, unspecified; J44.9 Chronic obstructive pulmonary disease, unspecified; F17.210 Nicotine dependence, cigarettes, uncomplicated; C34.90 Malignant neoplasm of unspecified part of unspecified bronchus or lung; C79.51 Secondary malignant neoplasm of bone; K86.1 Other chronic pancreatitis; K86.3 Pseudocyst of pancreas; Z79.899 Other long term (current) drug therapy
CPT/HCPCS: 36415; 71045; 80048; 80053; 80061; 80320; 82533; 82803; 83605; 83690; 83735; 83880; 84100; 84443; 84484; 85025; 85610; 85730; 86850; 93005; 94640; 99285; G0378; G0480; J1650; J1885; J2405; J3411; J7120; J7620

== ENCOUNTER 2024-04-16 21:17 | Emergency (ER) | payer MEDICAID, SELFPAY ==
[2024-04-16 21:17] VITALS: BP 125/81; PULSE 93; RESP 16; TEMP 36.9; O2SAT 98; BMI 18.2
--- NOTE | 2024-04-16 21:28 | HMH.EDGENADL ---
Discharge Plan Disposition Patient Disposition: Home, Self-Care Prescriptions Prescriptions: No Action folic acid 1 mg tablet 1 mg PO DAILY Qty: 100 10RF thiamine HCl (vitamin B1) 100 mg tablet 100 mg PO DAILY Qty: 100 10RF albuterol sulfate 90 mcg/actuation aero powdr breath act w/sensor 1 inh IH Q4HP PRN (Reason: Shortness Of Breath) Qty: 1 12RF lorazepam 2 mg tablet 2 mg PO BIDP PRN (Reason: Anxiety) Qty: 60 3RF Rx Instructions: for anxiety and control of seizures pantoprazole 40 mg tablet,delayed release (DR/EC) 40 mg PO DAILY Qty: 90 0RF ascorbic acid (vitamin C) 250 mg tablet 250 mg PO DAILY levetiracetam 500 mg tablet 500 mg PO BID sucralfate [Carafate] 1 gram tablet 1 g PO BID promethazine 25 mg tablet 25 mg PO Q6HP PRN (Reason: nausea and vomiting) fluticasone propionate [Flonase Allergy Relief] 50 mcg/actuation spray,suspension 2 spray intranasal BID Rx Instructions: administer into each nostril oxycodone 10 mg tablet 10 mg PO BIDP PRN (Reason: Moderate Pain (Scale Score 5-6)) [id number]-igpkzdkx-ypvwpvm 36,000-114,000- 180,000 unit capsule,delayed release(DR/EC) 6 cap PO BIDWMEAL Senna Plus 8.6-50 mg capsule 1 tab-cap PO BIDP PRN (Reason: constipation) naltrexone 50 mg tablet 50 mg PO DAILY Qty: 30 0RF Activity Restrictions/Add. Instructions Additional Instructions/Restrictions: Your symptoms today were secondary to having some mild withdrawal that were induced from the naltrexone which can cause some type of withdrawal while you are taking chronic opioids. I recommend you stop that medication. You may follow-up with primary care doctor but no further emergent medical diagnostic or treatment interventions were needed. Clinical Impressions Clinical Impression: Paresthesias, Piloerection, Opioid withdrawal, Chronic alcohol abuse, Chronic hyponatremia Print Language Print Language: French Discharge ED Provider: Ja Pardo General Adult HPI General Chief complaint: Allergic Reaction Stated complaint: allergic reaction Time Seen by Provider: 04/16/24 21:18 History of Present Illness HPI narrative: Patient is a 59-year-old male with a history of chronic alcohol abuse and chronic hyponatremia who is also on 2 mg twice daily of Ativan also takes Keppra 500 mg twice daily who presents today with paresthesias and here standing on him. He was recently in the hospital for hyponatremia and seizures and was started on naltrexone however he is chronically on opiates and since he has been taking that medication he has been having paresthesias in the piloerection on his arms. Denies any nausea vomiting or any other symptoms at the moment. He has not had his home Ativan or Keppra and is concerned that he may have a seizure but he has not had any today. Related Data Home Medications ?Medication ?Instructions ?Recorded ?Confirmed ascorbic acid (vitamin C) 250 mg 250 mg PO DAILY 02/04/24 04/14/24 tablet fluticasone propionate 50 2 spray intranasal BID 04/14/24 04/14/24 mcg/actuation nasal spray,suspension (Flonase Allergy Relief) levetiracetam 500 mg tablet 500 mg PO BID 04/14/24 04/14/24 [id number]-hdidqhwc-hpspkpb 6 cap PO BIDWMEAL 04/14/24 04/14/24 36,000-114,000-180,000 unit capsule,delay rel oxycodone 10 mg tablet 10 mg PO BIDP PRN Moderate Pain 04/14/24 04/14/24 (Scale Score 5-6) promethazine 25 mg tablet 25 mg PO Q6HP PRN nausea and 04/14/24 04/14/24 vomiting sennosides 8.6 mg-docusate sodium 1 tab-cap PO BIDP PRN constipation 04/14/24 04/14/24 50 mg capsule (Senna Plus) sucralfate 1 gram tablet (Carafate) 1 g PO BID 04/14/24 04/14/24 Previous Rx's ?Medication ?Instructions ?Recorded folic acid 1 mg tablet 1 mg PO DAILY #100 tabs 12/01/23 thiamine HCl (vitamin B1) 100 mg 100 mg PO DAILY #100 tabs 12/01/23 tablet albuterol sulfate 90 mcg/actuation 1 inh inhalation Q4HP PRN 02/12/24 breath activated powder Shortness Of Breath #1 ea inhaler,sensor lorazepam 2 mg tablet 2 mg PO BIDP PRN Anxiety #60 tabs 02/12/24 pantoprazole 40 mg tablet,delayed 40 mg PO DAILY #90 tabs 03/15/24 release naltrexone 50 mg tablet 50 mg PO DAILY #30 tabs 04/15/24 Allergies Allergy/AdvReac Type Severity Reaction Status Date / Time cephalexin (From Keflex) Allergy Mild Hives Verified 03/26/24 10:21 sulfamethoxazole (From Allergy Unknown Hives Verified 03/26/24 10:21 BACTRIM) trimethoprim (From BACTRIM) Allergy Unknown Hives Verified 03/26/24 10:21 PFSH [facility] Disclaimer: The information contained in this section may have been updated after the patient was seen, as this information can be updated by other users. Medical History Lung nodule Acute on chronic pancreatitis Acute on chronic pancreatitis Hypochloremia Hearing loss Pancreatic pseudocyst Chronic alcohol abuse Bipolar 1 disorder Seizures Abdominal aneurysm Excessive cerumen in left ear canal SBO (small bowel obstruction) Acute pancreatitis Cachexia Acute on chronic pancreatitis Gastrostomy tube dependent Metastatic non-small cell lung cancer Severe protein-calorie malnutrition Lung cancer metastatic to bone Abdominal pain Pancreatic pseudocyst Abdominal pain Bone marrow disorder Cirrhosis COPD (chronic obstructive pulmonary disease) GERD (gastroesophageal reflux disease) Gastric outlet obstruction History of lung cancer Pancreatic pseudocyst Alcoholic pancreatitis Anxiety History of lung cancer Alcohol abuse Pancreatitis, acute Gallstone pancreatitis Pancreatitis Hypokalemia Surgical History History of local excision of skin lesion History of aortic aneurysm repair History of cholecystectomy Hx of cholecystectomy Family History Other Cancer of lung Emphysema lung Social History (Updated 04/14/24 @ 11:30 by Pita Reeves RN) Smoking Status: Current every day smoker tobacco type: cigarettes packs per day: 3 alcohol intake: current alcohol intake frequency: a few times a week substance use type: denies use current occupational status: unemployed and disabled household members: family housing: house current occupational exposures/hazards: No caffeine: No Other Medical History Have you received the Flu Vaccine for this season: No Have you received the Pneumonia Vaccine: No ROS Obtained: Yes All systems reviewed & no additional complaints except as documented Physical Exam General General appearance: other (Generalized piloerection) Respiratory Respiratory exam: Present normal lung sounds bilaterally Cardiovascular Cardiovascular exam: Present regular rate and normal rhythm Abdominal Exam Abdominal exam: Present soft; Absent distention or tenderness Neurological Exam Neurological exam: Present alert, oriented X3, CN II-XII intact and normal gait; Absent motor sensory deficit Medical Decision Making Medical Records Screening: Per USPSTF and CDC recommendations, given the prevalence of disease in our region, it is our hospital?s policy to screen for HIV and viral Hepatitis for all patients aged 18 and over and those with ongoing risk factors. [place] Inquiry Pt receiving controlled substance: No Vital Signs: 04/16/24 21:17 04/16/24 22:00 Temperature 98.4 F Temperature Source Tympanic Pulse Rate 80 Pulse Rate [Left] 93 H Respiratory Rate 16 Blood Pressure 123/80 Blood Pressure [Right Arm] 125/81 Blood Pressure Mean [Right Arm] 95 02 Sat by Pulse Oximetry 98 97 Oxygen Delivery Method Room Air Lab Data Lab results reviewed: Yes I reviewed the patient's lab results. Lab Results 04/16/24 21:16: WBC 5.8 D, RBC 4.02 L, Hgb 13.2 L, Hct 39.0 L, MCV 96.8 H, MCH 32.8 H, MCHC 33.9, RDW 14.2, Plt Count 124 L, MPV 8.5, Neut % (Auto) 84.2 H, Lymph % (Auto) 8.7 L, Hale % (Auto) 4.3, Eos % (Auto) 2.4, Baso % (Auto) 0.5, Neut # (Auto) 4.9, Lymph # (Auto) 0.5 L, Hale # (Auto) 0.3, Eos # (Auto) 0.1, Baso # (Auto) 0.0, Sodium 131 L, Potassium 4.2, Chloride 96 L, Carbon Dioxide 29, Anion Gap 10.2, BUN 5 L D, Creatinine 0.70, Estimated Creat Clear 87, Estimated GFR 115, Est GFR ( Amer) 140, Glucose 153 H, Calcium 9.3, Phosphorus 3.1, Magnesium 1.8, Total Bilirubin 0.6, AST 38 D, ALT 19 D, Alkaline Phosphatase 80, Total Protein 7.7 D, Albumin 4.6, Globulin 3.1, Albumin/Globulin Ratio 1.5, Plasma/Serum Alcohol < 10 04/16/24 21:16 04/16/24 21:16 Orders (Tests/Meds): ED MEDICATIONS Discontinued Medications Generic Name Dose Route Start Last Admin Trade Name Papito PRN Reason Stop Dose Admin Levetiracetam 500 mg 04/16/24 21:25 04/16/24 21:39 Levetiracetam 500 Mg Tablet PO 04/16/24 21:26 Not Given ONCE ONE Levetiracetam 500 mg 04/16/24 21:38 04/16/24 21:39 Levetiracetam 100 Mg/Ml Solution PO 04/16/24 21:39 500 mg ONCE ONE Administration Lorazepam 2 mg 04/16/24 21:25 04/16/24 21:34 Lorazepam 1mg Tablet PO 04/16/24 21:26 2 mg ONCE ONE Administration ORDERS Category Date Time Status CBC w/Auto Diff [Complete Blood Count Auto Diff] Stat Lab 04/16/24 21:16 Completed CMP [Comprehensive Metabolic Panel] Stat Lab 04/16/24 21:16 Completed Ethanol [Ethyl Alcohol] Stat Lab 04/16/24 21:16 Completed Magnesium Stat Lab 04/16/24 21:16 Completed Phosphorous Stat Lab 04/16/24 21:16 Completed Medical Decision Narrative: 59-year-old with chronic alcoholism chronic hyponatremia recently hospitalized and started on naltrexone however the patient takes daily opiates, oxycodone, and states that since has been taken naltrexone which is a partial mu agonist he has been having piloerection and paresthesias which are likely some mild withdrawal associated with chronic opioid use. I will tell him to discontinue this medication he is also chronically on Ativan 2 mg twice daily I am not concerned about alcohol withdrawal. He has no evidence of any type of cardiopulmonary or neurologic abnormality/emergency at the moment. Will to recheck his electrolytes given how severe his hyponatremia has been in the past give his home dose of Ativan and Keppra and he will be discharged with close outpatient follow-up assuming his workup is unremarkable. Reassessment 10:35 PM patient sleeping comfortably no evidence of any seizures or acute neurologic abnormalities. I discussed with him the side effects of naltrexone and particularly when taking opiates. I have advised that he stop taking this medication and to follow-up with his primary care doctor regarding chronic alcohol abuse as well as curbing his appetite for that. Sodium had essentially recovered at this point and is significantly higher than it was last time he was in the hospital. No evidence of seizure-like activity while the emergency department Keppra was initiated and he has further Keppra at home. He also is on benzos that he has at home patient was discharged in stable condition Critical Care Critical Care Time Critical Care Time: No
[2024-04-16 21:31] LABS: Basophils % 0.5 % (0.1-2.0); Eosinophils # 0.1 K/mm3 (0.0-0.4); Eosinophils % 2.4 % (0.1-12.0); Hemoglobin 13.2 g/dL (14.1-18.0); Lymphocytes # 0.5 K/mm3 (0.7-4.5); Lymphocytes % 8.7 % (10-50); Mean Corpuscular HGB Conc 33.9 g/dL (31.8-35.4); Mean Corpuscular Hemoglobin 32.8 pg (27.0-31.2); Mean Corpuscular Volume 96.8 fl (80-94); Mean Platelet Volume 8.5 fl (7.4-10.4); Monocytes # 0.3 K/mm3 (0.1-1.0); Monocytes % 4.3 % (1.7-9.3); Neutrophils # 4.9 K/mm3 (1.8-7.8); Neutrophils % 84.2 % (37.0-80.0); Platelet Count 124 K/mm3 (142-424); Red Blood Count 4.02 M/mm3 (4.60-6.20); Red Cell Distribution Width 14.2 % (11.5-17.5); White Blood Count 5.8 K/mm3 (4.8-10.8)
[2024-04-16 21:34] LABS: Albumin Level 4.6 g/dl (3.5-5.0); Chloride 96 mmol/L (98-107); Potassium 4.2 mmoL/L (3.5-5.1); Sodium 131 mmol/L (136-145)
[2024-04-16] MEDS: LORazepam 1MG TABLET 2 MG PO (21:34)
[2024-04-16 21:36] LABS: Alanine Aminotransferase 19 U/L (12-78); Aspartate Amino Transferase 38 U/L (17-59); Blood Urea Nitrogen 5 mg/dl (9-20); Creatinine Clearance Estimated 87 mL/min (50-200); Estimated Glomerular Filt Rate 115 ml/min (>60); GFR (African American) 140 ML/MIN (>60)
[2024-04-16 21:37] LABS: Albumin/Globulin Ratio 1.5 (1.1-1.8); Alkaline Phosphatase 80 U/L (38-126); Anion Gap 10.2 mEq/L (5-15); Bilirubin,Total 0.6 mg/dl (0.2-1.3); Calcium 9.3 mg/dl (8.4-10.2); Carbon Dioxide 29 mmol/L (22.0-30.0); Globulin 3.1 g/dL (1.3-3.2); Glucose 153 mg/dl (74-100); Magnesium 1.8 mg/dl (1.6-2.3); Phosphorous 3.1 mg/dl (2.5-4.5); Total Protein,Serum 7.7 g/dl (6.3-8.2)
[2024-04-16 21:38] LABS: Ethyl Alcohol < 10 mg/dl (0-10)
[2024-04-16] MEDS: levETIRAcetam 100 MG/ML SOLUTION 500 MG PO (21:39)
[2024-04-16 22:00] VITALS: BP 123/80; PULSE 80; O2SAT 97
[2024-04-16 22:35] VITALS: BP 118/75; PULSE 91; RESP 22; TEMP 36.5; O2SAT 97
== END 2024-04-16 22:40 | disposition home or self-care (01) ==
PROVIDERS: Emergency Provider Student in an Organized Health Care Education/Training Program; PCP Family Medicine
DX: R20.2 Paresthesia of skin (principal); E87.1 Hypo-osmolality and hyponatremia; F11.93 Opioid use, unspecified with withdrawal; R29.898 Other symptoms and signs involving the musculoskeletal system; F10.10 Alcohol abuse, uncomplicated
CPT/HCPCS: 80053; 80320; 83735; 84100; 85025; 99283; G0480

== ENCOUNTER 2024-05-15 07:51 | Inpatient (IN) | payer MEDICAID, SELFPAY ==
[2024-05-15] VITALS (20 sets, daily range): BP systolic 102–177; BP diastolic 61–83; PULSE 68–85; RESP 12–20; TEMP 36.6–37.1; O2SAT 95–98; BMI 20.5; BMI 21.5
--- NOTE | 2024-05-15 07:40 | ECG_ITS ---
APPROVED REPORT Exam: Resting ECG HR:79 bpm ECG Measurements Heart Rate 79 AXES [place] 173 P 83 QRSd 96 QRS 86 QT 388 T 81 QTc 423 Conclusion SINUS RHYTHM NORMAL ECG Electronically signed by : MARIELENA CHAMBERS, 05/18/2024 07:07:43
--- NOTE | 2024-05-15 07:53 | PC.NURSE ---
dr lopez at bedside
--- NOTE | 2024-05-15 07:58 | CT_ITS ---
PROCEDURE INFORMATION: Exam: CT Abdomen And Pelvis With Contrast Exam date and time: 05/15/2024 9:31 AM Age: 59 years old Clinical indication: Vomiting and other: Pain; Additional info: Epigastric pain, vomiting TECHNIQUE: Imaging protocol: Computed tomography of the abdomen and pelvis with contrast. Radiation optimization: All CT scans at this facility use at least one of these dose optimization techniques: automated exposure control; mA and/or kV adjustment per patient size (includes targeted exams where dose is matched to clinical indication); or iterative reconstruction. Contrast material: ISOVUE; Contrast volume: 75 ml; Contrast route: IV; COMPARISON: CT ABDOMEN PELVIS W CON 02/04/2024 5:49 PM FINDINGS: Esophagus: Circumferential thickening and distension of the distal esophagus can be seen in the context of esophageal dysmotility. Liver: No focal hepatic lesions. Gallbladder and biliary ducts: There has been a cholecystectomy. Pancreas: Pancreas is diffusely atrophic with multiple calcifications. Spleen: No splenomegaly. Adrenal glands: The adrenal glands are normal. Kidneys and ureters: There is a simple cyst in the left kidney. Stomach and bowel: Mucosal hyperenhancement and submucosal edema along the pyloric region can be seen in the context of gastritis. Appendix: A normal appendix is identified. Intraperitoneal space: There is no evidence of free intraperitoneal or pelvic fluid. There is no evidence of free intraperitoneal or pelvic fluid. Vasculature: Unremarkable. No abdominal aortic aneurysm. Lymph nodes: No evidence of retroperitoneal or mesenteric lymphadenopathy. Urinary bladder: Urinary bladder is unremarkable. Reproductive: Unremarkable as visualized. Bones/joints: Multilevel degenerative changes of the included spine. Soft tissues: Unremarkable. IMPRESSION: 1. Circumferential thickening and distension of the distal esophagus can be seen in the context of esophageal dysmotility. 2. Chronic pancreatitis 3. Mucosal hyperenhancement and submucosal edema along the pyloric region can be seen in the context of gastritis. COMMENTS: Consistent with the [employer]'s Incidental Findings Committee white paper (J Am Blair Radiol 2018): Any incidental renal lesion less than 1 cm or classified as too small to characterize, or any incidental cystic renal lesion characterized as simple-appearing, is likely benign. No follow-up imaging is recommended for these lesions per consensus recommendations based on imaging criteria.
--- NOTE | 2024-05-15 07:58 | XR_ITS ---
PROCEDURE INFORMATION: Exam: XR Chest Exam date and time: 05/15/2024 8:20 AM Age: 59 years old Clinical indication: Pain; Chest pressure TECHNIQUE: Imaging protocol: Radiologic exam of the chest. Views: 1 view. COMPARISON: CR XR CHEST PORTABLE 04/14/2024 8:02 AM FINDINGS: Lungs: No evidence of pneumonia or interstitial edema. Pleural spaces: Unremarkable. No pleural effusion. No pneumothorax. Heart/Mediastinum: Unremarkable. No cardiomegaly. Bones/joints: Unremarkable. IMPRESSION: No evidence of pneumonia or interstitial edema.
--- NOTE | 2024-05-15 08:07 | ED_ITS ---
Discharge Plan Disposition Chief Complaint: Nausea/Vomiting/Diarrhea Discharge ED Provider: Rafat Salazar General Adult HPI General Chief complaint: Nausea/Vomiting/Diarrhea Stated complaint: Vomiting Time Seen by Provider: 05/15/24 07:53 History of Present Illness HPI narrative: Patient is a 59-year-old male past medical history of polysubstance abuse, chronic alcohol abuse, who presents emergency department for evaluation of vomiting and left-sided chest fullness. Onset was acute over the last 72 hours. With respect of vomiting patient has had multiple episodes of emesis that have blood in them, the blood showed up in the last 24 hours and was stingy rather than entirely made of blood he is stooling normally last bowel movement today although it was loose there is no discoloration. He is longstanding history of alcohol abuse and drinks multiple cans of beer a day, last use was just prior to arrival. He does drink 12 beers in the last 24 hours. He also has a seizure disorder that is well-controlled on Keppra. He has been admitted to the hospital for alcohol withdrawal with seizures previously. Surgical history has had past cholecystectomy, he also has a history of chronic pancreatitis. No sick contacts. He also has a history of pulmonary nodules that are undergoing surveillance. With respect to the left-sided chest fullness that has been persistent throughout the 72-hour course and he states it feels like a gas bubble . Due to persistent symptoms he presents here for continued evaluation. Related Data Home Medications ?Medication ?Instructions ?Recorded ?Confirmed fluticasone propionate 50 2 spray intranasal BID 04/14/24 04/14/24 mcg/actuation nasal spray,suspension (Flonase Allergy Relief) [id number] 6 cap PO BIDWMEAL 04/14/24 04/14/24 36,000-114,000-180,000 unit capsule,delay rel promethazine 25 mg tablet 25 mg PO Q6HP PRN nausea and 04/14/24 04/14/24 vomiting sennosides 8.6 mg-docusate sodium 1 tab-cap PO BIDP PRN constipation 04/14/24 04/14/24 50 mg capsule (Senna Plus) sucralfate 1 gram tablet (Carafate) 1 g PO BID 04/14/24 04/14/24 Previous Rx's ?Medication ?Instructions ?Recorded folic acid 1 mg tablet 1 mg PO DAILY #100 tabs 12/01/23 thiamine HCl (vitamin B1) 100 mg 100 mg PO DAILY #100 tabs 12/01/23 tablet albuterol sulfate 90 mcg/actuation 1 inh inhalation Q4HP PRN 02/12/24 breath activated powder Shortness Of Breath #1 ea inhaler,sensor pantoprazole 40 mg tablet,delayed 40 mg PO DAILY #90 tabs 03/15/24 release naltrexone 50 mg tablet 50 mg PO DAILY #30 tabs 04/15/24 levetiracetam 500 mg tablet 500 mg PO BID #60 tabs 04/26/24 lorazepam 2 mg tablet 2 mg PO BIDP PRN Anxiety #60 tabs 04/28/24 ascorbic acid (vitamin C) 250 mg 250 mg PO DAILY #100 tabs 05/07/24 tablet oxycodone 10 mg tablet 10 mg PO BIDP PRN Moderate Pain 05/13/24 (Scale Score 5-6) #60 tabs Allergies Allergy/AdvReac Type Severity Reaction Status Date / Time cephalexin (From Keflex) Allergy Mild Hives Verified 03/26/24 10:21 sulfamethoxazole (From Allergy Unknown Hives Verified 03/26/24 10:21 BACTRIM) trimethoprim (From BACTRIM) Allergy Unknown Hives Verified 03/26/24 10:21 PFSH PFS Disclaimer: The information contained in this section may have been updated after the patient was seen, as this information can be updated by other users. Medical History Lung nodule Acute on chronic pancreatitis Acute on chronic pancreatitis Hypochloremia Hearing loss Pancreatic pseudocyst Chronic alcohol abuse Bipolar 1 disorder Seizures Abdominal aneurysm Excessive cerumen in left ear canal SBO (small bowel obstruction) Acute pancreatitis Cachexia Acute on chronic pancreatitis Gastrostomy tube dependent Metastatic non-small cell lung cancer Severe protein-calorie malnutrition Lung cancer metastatic to bone Abdominal pain Pancreatic pseudocyst Abdominal pain Bone marrow disorder Cirrhosis COPD (chronic obstructive pulmonary disease) GERD (gastroesophageal reflux disease) Gastric outlet obstruction History of lung cancer Pancreatic pseudocyst Alcoholic pancreatitis Anxiety History of lung cancer Alcohol abuse Pancreatitis, acute Gallstone pancreatitis Pancreatitis Hypokalemia Surgical History History of local excision of skin lesion History of aortic aneurysm repair History of cholecystectomy Hx of cholecystectomy Family History Other Cancer of lung Emphysema lung Social History (Updated 04/14/24 @ 11:30 by Pita Reeves RN) Smoking Status: Current every day smoker tobacco type: cigarettes packs per day: 3 alcohol intake: current alcohol intake frequency: a few times a week substance use type: denies use current occupational status: unemployed and disabled Travel in the last 8 weeks: None household members: family housing: house current occupational exposures/hazards: No caffeine: No Have you lived/traveled outside [place] in past 30 days?: No Contact w/someone who lives/traveled outside [place] past 30 days?: No Exposure to someone with infectious disease in past 14 days?: No Do you have a fever (greater than 100.4 F or 38 C)?: No Have you tested positive for COVID-19: No Exposed to someone with COVID-19 in past 14 days?: No Do you have a sore throat?: No Do you have a cough?: No Do you have any weakness?: No Do you have any diarrhea?: No Are you experiencing any unusual bleeding?: No Do you have any muscle aches/pain?: No Do you have any abdominal pain?: No Are you experiencing loss of taste or smell?: No Other Medical History Have you received the Flu Vaccine for this season: No Have you received the Pneumonia Vaccine: No ROS Obtained: Yes Systems reviewed as appropriate & no additional complaints except as documented Physical Exam General General appearance: alert and in no apparent distress Head Head exam: atraumatic and normocephalic Eye Eye exam: Present PERRL ENT ENT exam: Present normal oropharynx and mucous membranes moist Neck Neck exam: Present normal inspection Chest Chest inspection: Present normal inspection and symmetric chest wall rise Respiratory Respiratory exam: Present normal lung sounds bilaterally; Absent respiratory distress Cardiovascular Cardiovascular exam: Present regular rate and normal rhythm Abdominal Exam Abdominal exam: Present soft and tenderness (Mild, epigastric); Absent guarding or rebound Extremities Exam Extremities exam: Present normal inspection Neurological Exam Neurological exam: Present alert Psychiatric Psychiatric exam: Present normal affect Skin Skin exam: Present warm and dry Medical Decision Making Medical Records Screening: Per USPSTF and CDC recommendations, given the prevalence of disease in our region, it is our hospital?s policy to screen for HIV and viral Hepatitis for all patients aged 18 and over and those with ongoing risk factors. [place] Inquiry Pt receiving controlled substance: No Vital Signs: 05/15/24 07:51 05/15/24 09:00 05/15/24 10:00 Temperature 97.8 F Temperature Source Oral Pulse Rate 73 85 Pulse Rate [Right] 82 Respiratory Rate 19 18 Blood Pressure 112/73 112/71 Blood Pressure [Right Arm] 128/67 Blood Pressure Mean [Right Arm] 87 Blood Pressure Source [Right Arm] Automatic Cuff 02 Sat by Pulse Oximetry 96 96 96 Oxygen Delivery Method Room Air Room Air Room Air 05/15/24 10:30 05/15/24 11:00 05/15/24 11:30 Temperature Temperature Source Pulse Rate 80 75 77 Pulse Rate [Right] Respiratory Rate 16 15 17 Blood Pressure 108/77 L 117/72 102/61 L Blood Pressure [Right Arm] Blood Pressure Mean [Right Arm] Blood Pressure Source [Right Arm] 02 Sat by Pulse Oximetry 98 96 95 Oxygen Delivery Method Room Air Room Air Room Air 05/15/24 12:00 Temperature Temperature Source Pulse Rate 73 Pulse Rate [Right] Respiratory Rate 17 Blood Pressure 106/63 L Blood Pressure [Right Arm] Blood Pressure Mean [Right Arm] Blood Pressure Source [Right Arm] 02 Sat by Pulse Oximetry 96 Oxygen Delivery Method Room Air Lab Data Lab Results 05/15/24 07:40: WBC 6.5, RBC 3.76 L, Hgb 12.5 L, Hct 33.4 L, MCV 88.8, MCH 33.2 H, MCHC 37.4 H, RDW 12.7, Plt Count 173, MPV 10.8 H, Neut % (Auto) 69.3, Lymph % (Auto) 14.5, [place] % (Auto) 12.8 H, Eos % (Auto) 2.6, Baso % (Auto) 0.5, Neut # (Auto) 4.5, Lymph # (Auto) 0.9, [place] # (Auto) 0.8, Eos # (Auto) 0.2, Baso # (Auto) 0.0 05/15/24 08:09: SARS-CoV-2 (PCR) Not detected, Influenza A Untype (PCR) Not detected, Influenza Type B (PCR) Not detected 05/15/24 08:35: PT 10.6, INR 0.94, APTT 31.3 H, Sodium 118 L, Potassium 3.8, C hloride 77 L, Carbon Dioxide 34 H, Anion Gap 10.8, BUN 8 L, Creatinine 0.70, Estimated Creat Clear 98, Estimated GFR 115, Est GFR ( Amer) 140, Glucose 94, Calcium 9.5, Phosphorus 4.5, Magnesium 1.7, Total Bilirubin 0.5, AST 41, ALT 19, Alkaline Phosphatase 99, Ammonia < 9 L, Troponin I < 0.01, Total Protein 7.4, Albumin 4.5, Globulin 2.9, Albumin/Globulin Ratio 1.6, Lipase 73, P lasma/Serum Alcohol 74 H, Blood Type A Positive, Antibody Screen Negative 05/15/24 07:40 05/15/24 08:35 Orders (Tests/Meds): ED MEDICATIONS Generic Name Dose Route Start Last Admin Trade Name Freq PRN Reason Stop Dose Admin Diazepam 10 mg 05/15/24 08:02 Diazepam 10mg/2ml Syringe IV 06/14/24 08:01 Q1HP PRN CIWA >16 Diazepam 5 mg 05/15/24 08:02 05/15/24 11:24 Diazepam 10mg/2ml Syringe IV 06/14/24 08:01 5 mg Q1HP PRN Administration CIWA Score 8-15 Octreotide Acetate 500 mcg/ 255 mls @ 25.5 mls/hr 05/15/24 08:15 05/15/24 09:10 Sodium Chloride IV 06/14/24 08:14 25.5 mls/hr .Q10H BUZZ Administration 50 MCG/HR Multivitamins 10 ml/ Thiamine 1,015 mls @ 150 mls/hr 05/15/24 08:15 05/15/24 08:57 HCl 100 mg/ Magnesium Sulfate IV 05/15/24 15:00 150 mls/hr 2 gm/ Lactated Ringer's .[id number] BUZZ Administration Levetiracetam 500 mg 05/15/24 09:39 05/15/24 09:49 Levetiracetam 500 Mg Tablet PO 06/14/24 09:38 500 mg TID BUZZ Administration Sodium Chloride 10 ml 05/15/24 08:02 Sodium Chloride 0.9% 10ml Vial IV 06/14/24 08:01 NEEDED PRN dilute protonix Discontinued Medications Generic Name Dose Route Start Last Admin Trade Name Freq PRN Reason Stop Dose Admin Folic Acid 1 mg 05/15/24 08:02 05/15/24 08:58 Folic Acid 1mg Tablet PO 05/15/24 08:03 1 mg ONCE ONE Administration Ceftriaxone Sodium 1 gm/ 50 mls @ 100 mls/hr 05/15/24 08:03 05/15/24 11:14 Sodium Chloride IV 05/15/24 08:32 100 mls/hr ONCE ONE Administration Octreotide Acetate 50 mcg 05/15/24 10:00 05/15/24 09:49 Octreotide 100 Mcg/Ml 1ml Amp SUBCUT 05/15/24 10:01 50 mcg ONCE ONE Administration Ondansetron HCl 4 mg 05/15/24 08:01 05/15/24 08:38 Ondansetron 4mg/2ml Vial IV 05/15/24 08:02 4 mg ONCE ONE Administration Pantoprazole Sodium 40 mg 05/15/24 08:02 05/15/24 08:38 Pantoprazole 40mg Vial IV 05/15/24 08:03 40 mg ONCE ONE Administration Phenobarbital Sodium 130 mg 05/15/24 11:48 05/15/24 11:53 Phenobarbital Sod 65mg/Ml Inj IV 05/15/24 11:49 130 mg ONCE ONE Administration ORDERS Category Date Time Status Type and Screen Stat BBK 05/15/24 08:[address] abdomen pelvis w con Stat Cat Scan 05/15/24 07:58 Completed CXR --portable [XR chest portable] Stat Exams 05/15/24 07:58 Completed Activated Partial Thrombo Time Routine Lab 05/15/24 08:35 Completed Ammonia Stat Lab 05/15/24 08:35 Completed Basic Metabolic Panel Q6H Lab 05/15/24 14:00 Ordered Basic Metabolic Panel Q6H Lab 05/15/24 20:00 Ordered Basic Metabolic Panel Q6H Lab 05/16/24 02:00 Ordered CBC w/Auto Diff [Complete Blood Count Auto Diff] Stat Lab 05/15/24 07:40 Completed CMP [Comprehensive Metabolic Panel] Stat Lab 05/15/24 08:35 Completed Complete Blood Count Auto Diff AMLAB Lab 05/16/24 06:00 Ordered Comprehensive Metabolic Panel AMLAB Lab 05/16/24 06:00 Ordered Drug Screen,Urine Routine Lab 05/15/24 12:47 Received Ethyl Alcohol Stat Lab 05/15/24 08:35 Completed Lipase Stat Lab 05/15/24 08:35 Completed Magnesium AMLAB Lab 05/16/24 06:00 Ordered Magnesium Routine Lab 05/15/24 08:35 Completed PT INR [Prothrombin Time INR] Stat Lab 05/15/24 08:35 Completed Phosphorous Routine Lab 05/15/24 08:35 Completed Rapid PCR Covid and Flu A/B Stat Lab 05/15/24 08:09 Completed Trop I [Troponin I] Stat Lab 05/15/24 08:35 Completed Blood Culture Stat Micro 05/15/24 10:45 Ordered ECG Data Tracing #1: Independently interpreted by me rate of 79, rhythm is regular, axis is normal, no ST elevation in anatomical contiguous leads, QTc 423. Medical Decision Narrative: In summary patient is a 59-year-old male past medical history described above who presents emergency department for evaluation of vomiting and left-sided chest fullness in the setting of longstanding alcohol abuse, chronic pancreatitis. Patient is hemodynamically stable and nontoxic-appearing upon arrival, afebrile. Differential diagnosis includes nonspecific viral syndrome with vomiting, peptic ulcer mediated gastrointestinal bleed, variceal mediated gastrointestinal bleed, pancreatic fluid collection, among others. Workup be conducted with hematologic labs, CT of the abdomen pelvis IV contrast, EKG, troponins, chest x-ray. Covering for variceal and not variceal GI bleed patient will be covered with ceftriaxone, octreotide, Protonix. Patient will be put on CIWA precautions diazepam protocol and will be started with rally pack. Based on history and physical exam atypical ACS is less likely but will be screened with troponins. Initial workup reviewed by me, hemoglobin is stable, no significant leukocytosis, normal platelets, no elevated PT/INR. There is an acute hyponatremia of 118 and hypochloremia consistent with his vomiting, initial troponin undetectably low, lipase 73 alcohol [address] imaging showed circumferential thickening and distention of the distal esophagus which can be seen in esophageal dysmotility, evidence of chronic pancreatitis and mucosal enhancement with submucosal edema along the pyloric region which can be seen in the context of gastritis. The case was discussed with Dr. Milan at length, I do not think that patient has a significant variceal bleed as it is not evidence in his lower esophagus, does not have melena or discordant BUN to creatinine, has no significant coagulopathy although he does have a significant hyponatremia and he does have evidence of gastritis on his CT scan. Given this shared decision-making discussion was had with Dr. Milan and we both agree the patient is appropriate for inpatient management at this institution at this time. Patient will be loaded with phenobarbital in an effort to decrease his benzodiazepine requirement throughout his hospital stay. Critical Care Critical Care Time Critical Care Time: Yes Attestation: On 05/15/24, the high probability of a clinically significant, sudden or life threatening deterioration of the following system(s) required my full and direct attention, intervention and personal management. The time I documented below is in addition to time spent performing reported procedures but includes the following listed in this critical care notation. Total Time Total Critical Care Time: 40
[2024-05-15 08:10] LABS: Basophils % 0.5 % (0.1-2.0); Eosinophils # 0.2 K/mm3 (0.0-0.4); Eosinophils % 2.6 % (0.1-12.0); Hematocrit 33.4 % (42.0-52.0); Hemoglobin 12.5 g/dL (14.1-18.0); Lymphocytes # 0.9 K/mm3 (0.7-4.5); Lymphocytes % 14.5 % (10-50); Mean Corpuscular HGB Conc 37.4 g/dL (31.8-35.4); Mean Corpuscular Hemoglobin 33.2 pg (27.0-31.2); Mean Corpuscular Volume 88.8 fl (80-94); Mean Platelet Volume 10.8 fl (7.4-10.4); Monocytes # 0.8 K/mm3 (0.1-1.0); Monocytes % 12.8 % (1.7-9.3); Neutrophils # 4.5 K/mm3 (1.8-7.8); Neutrophils % 69.3 % (37.0-80.0); Platelet Count 173 K/mm3 (142-424); Red Blood Count 3.76 M/mm3 (4.60-6.20); Red Cell Distribution Width 12.7 % (11.5-17.5); White Blood Count 6.5 K/mm3 (4.8-10.8)
[2024-05-15 08:15] LABS: Coronavirus 19, PCR Not Detected (NotDetected); Influenza A, PCR Not Detected (NotDetected); Influenza B, PCR Not Detected (NotDetected)
--- NOTE | 2024-05-15 08:15 | PC.NURSE ---
Seizure pads and precautions in place
[2024-05-15] MEDS: ONDANSETRON 4MG/2ML VIAL 4 MG IV (08:38)
[2024-05-15] MEDS: PANTOPRAZOLE 40MG VIAL 40 MG IV ×2 (08:38→20:39)
[2024-05-15] MEDS: MVI, ADULT NO.1 WITH VIT K 10 ML, THIAMINE HCL 100 MG, MAGNESIUM SULFATE 2 GM in LACTAT... 150 ML IV (08:57)
[2024-05-15] MEDS: FOLIC ACID 1MG TABLET 1 MG PO (08:58)
[2024-05-15 08:59] LABS: Ammonia < 9 umol/L (9-30); Ethyl Alcohol 74 mg/dl (0-10)
[2024-05-15 09:00] LABS: INR 0.94 (0.9-1.1); Prothrombin Time 10.6 seconds (10.1-12.5)
[2024-05-15 09:05] LABS: Chloride 77 mmol/L (98-107); Potassium 3.8 mmoL/L (3.5-5.1); Sodium 118 mmol/L (136-145)
[2024-05-15 09:07] LABS: Alanine Aminotransferase 19 U/L (12-78); Aspartate Amino Transferase 41 U/L (17-59); Blood Urea Nitrogen 8 mg/dl (9-20); Creatinine Clearance Estimated 98 mL/min (50-200); Estimated Glomerular Filt Rate 115 ml/min (>60); GFR (African American) 140 ML/MIN (>60)
[2024-05-15 09:08] LABS: Alkaline Phosphatase 99 U/L (38-126); Anion Gap 10.8 mEq/L (5-15); Bilirubin,Total 0.5 mg/dl (0.2-1.3); Calcium 9.5 mg/dl (8.4-10.2); Carbon Dioxide 34 mmol/L (22.0-30.0); Glucose 94 mg/dl (74-100); Lipase 73 U/L (23-300); Total Protein,Serum 7.4 g/dl (6.3-8.2)
[2024-05-15 09:09] LABS: Magnesium 1.7 mg/dl (1.6-2.3); Phosphorous 4.5 mg/dl (2.5-4.5)
[2024-05-15] MEDS: OCTREOTIDE ACETATE 500 MCG in 0.9 % SODIUM CHLORIDE 250 ML 25.5 MCG IV ×2 (09:10→19:55)
[2024-05-15 09:13] LABS: Activated Partial Thrombo Time 31.3 seconds (22.8-30.6)
[2024-05-15 09:16] LABS: Troponin I < 0.01 ng/ml (0.00-0.034)
[2024-05-15] MEDS: levETIRAcetam 500 MG TABLET PO ×3 (09:49→20:39)
[2024-05-15] MEDS: OCTREOTIDE 100 MCG/ML 1ML AMP 50 MCG SUBCUT (09:49)
[2024-05-15 09:59] LABS: Albumin Level 4.5 g/dl (3.5-5.0); Albumin/Globulin Ratio 1.6 (1.1-1.8); Globulin 2.9 g/dL (1.3-3.2)
--- NOTE | 2024-05-15 10:10 | PC.NURSE ---
I rounded on the pt and emptied 580ml out of his urinal. no needs voiced. call bustos in reach.
[2024-05-15] MEDS: CEFTRIAXONE 1 GM 1 GM in 0.9 % SODIUM CHLORIDE 50 ML IV (11:14)
[2024-05-15] MEDS: diazePAM 10MG/2ML SYRINGE 5 MG IV ×4 (11:24→21:11)
--- NOTE | 2024-05-15 11:38 | PC.NURSE ---
DR CHAMBERS SPEAKING WITH DR BAUTISTA FOR POSSIBLE ADMISSION
--- NOTE | 2024-05-15 11:41 | PC.NURSE ---
Dr Salazar s/w Dr Milan for possible admit
--- NOTE | 2024-05-15 11:49 | EXP.HP ---
History of Present Illness *Admission Date: 05/15/24 *Reason for visit:: Vomiting, alcohol withdrawal *History of present illness: Mr. Casarez is a 59-year-old male with significant history of polysubstance abuse, chronic alcohol dependence, malnutrition, withdrawal seizures, and chronic hyponatremia. He presented to the ER for evaluation of worsening nausea and vomiting. States he had an episode of blood-streaked vomit over the past 24 hours. Last drink was last night per his report. Symptoms have worsened over the past 3 days. States he has been having chills. Denies diarrhea. Drinks 12-18 beers a day. Has had seizures in the past with withdrawal. Currently taking Keppra. Seen previously for similar presentation. Worked up extensively earlier this year with surgery including EGD that did not identify varices. Patient also has history of cholecystectomy and chronic pancreatitis for which she is on Creon. Workup in the ER concerning for positive alcohol level, withdrawal symptoms. Found to have severe hyponatremia at 118. Patient initiated on CIWA protocol and medicine consulted for admission and further management Since arriving to the floor, patient is feeling more stable. Concerned about having a seizure if he does not have his Ativan. Explained that he is on Valium for CIWA protocol. Loaded with phenobarbital in the ER with 130 mg IV. Still mildly tremulous. Has a cold washcloth on his face. Stable on room air. Complains of epigastric pain. Thin and malnourished appearing [facility] Disclaimer: The information contained in this section may have been updated after the patient was seen, as this information can be updated by other users. Medical History Lung nodule Acute on chronic pancreatitis Acute on chronic pancreatitis Hypochloremia Hearing loss Pancreatic pseudocyst Chronic alcohol abuse Bipolar 1 disorder Seizures Abdominal aneurysm Excessive cerumen in left ear canal SBO (small bowel obstruction) Acute pancreatitis Cachexia Acute on chronic pancreatitis Gastrostomy tube dependent Metastatic non-small cell lung cancer Severe protein-calorie malnutrition Lung cancer metastatic to bone Abdominal pain Pancreatic pseudocyst Abdominal pain Bone marrow disorder Cirrhosis COPD (chronic obstructive pulmonary disease) GERD (gastroesophageal reflux disease) Gastric outlet obstruction History of lung cancer Pancreatic pseudocyst Alcoholic pancreatitis Anxiety History of lung cancer Alcohol abuse Pancreatitis, acute Gallstone pancreatitis Pancreatitis Hypokalemia Surgical History History of local excision of skin lesion History of aortic aneurysm repair History of cholecystectomy Hx of cholecystectomy Family History Other Cancer of lung Emphysema lung Social History Smoking Status: Current every day smoker tobacco type: cigarettes packs per day: 3 alcohol intake: current alcohol intake frequency: a few times a week substance use type: denies use current occupational status: unemployed and disabled Travel in the last 8 weeks: None household members: family housing: house current occupational exposures/hazards: No caffeine: No Have you lived/traveled outside [place] in past 30 days?: No Contact w/someone who lives/traveled outside US past 30 days?: No Exposure to someone with infectious disease in past 14 days?: No Do you have a fever (greater than 100.4 F or 38 C)?: No Have you tested positive for COVID-19: No Exposed to someone with COVID-19 in past 14 days?: No Do you have a sore throat?: No Do you have a cough?: No Do you have any weakness?: No Do you have any diarrhea?: No Are you experiencing any unusual bleeding?: No Do you have any muscle aches/pain?: No Do you have any abdominal pain?: No Are you experiencing loss of taste or smell?: No Other Medical History Have you received the Flu Vaccine for this season: No Have you received the Pneumonia Vaccine: No Review of Systems Review of Systems Review of systems (narrative): 14 point review of systems performed, pertinent positives and negatives as per HPI Meds Home Medications and Allergies Home Medications ?Medication ?Instructions ?Recorded ?Confirmed ?Type folic acid 1 mg tablet 1 mg PO DAILY #100 tabs 12/01/23 05/15/24 Rx thiamine HCl (vitamin B1) 100 mg 100 mg PO DAILY #100 tabs 12/01/23 05/15/24 Rx tablet albuterol sulfate 90 mcg/actuation 1 inh inhalation Q4HP PRN 02/12/24 05/15/24 Rx breath activated powder Shortness Of Breath #1 ea inhaler,sensor pantoprazole 40 mg tablet,delayed 40 mg PO DAILY #90 tabs 03/15/24 05/15/24 Rx release fluticasone propionate 50 2 spray intranasal BID 11/27/24 12/28/24 History mcg/actuation nasal spray,suspension (Flonase Allergy Relief) [id number] 3 cap PO BIDWMEAL 04/14/24 05/15/24 History 36,000-114,000-180,000 unit capsule,delay rel sucralfate 1 gram tablet (Carafate) 1 g PO BID 04/14/24 05/15/24 History levetiracetam 500 mg tablet 500 mg PO BID #60 tabs 04/26/24 05/15/24 Rx lorazepam 2 mg tablet 2 mg PO BIDP PRN Anxiety #60 tabs 04/28/24 05/15/24 Rx ascorbic acid (vitamin C) 250 mg 250 mg PO DAILY #100 tabs 05/07/24 05/15/24 Rx tablet oxycodone 10 mg tablet 10 mg PO BIDP PRN Moderate Pain 05/13/24 05/15/24 Rx (Scale Score 5-6) #60 tabs New Prescriptions to Start Prescriptions: Allergies Allergy/AdvReac Type Severity Reaction Status Date / Time cephalexin (From Keflex) Allergy Mild Hives Verified 03/26/24 10:21 sulfamethoxazole (From Allergy Unknown Hives Verified 03/26/24 10:21 BACTRIM) trimethoprim (From BACTRIM) Allergy Unknown Hives Verified 03/26/24 10:21 Exam Data for Last 24 hours Vital signs and Labs for Last 24 Hours: Temp Pulse Resp BP Pulse Ox O2 Del Method 97.8 F 80 16 108/77 L 98 Room Air 05/15/24 07:51 05/15/24 10:30 05/15/24 10:30 05/15/24 10:30 05/15/24 10:30 05/15/24 10:30 Laboratory Results - last 24 hr 05/15/24 07:40: WBC 6.5, RBC 3.76 L, Hgb 12.5 L, Hct 33.4 L, MCV 88.8, MCH 33.2 H, MCHC 37.4 H, RDW 12.7, Plt Count 173, MPV 10.8 H, Neut % (Auto) 69.3, Lymph % (Auto) 14.5, Dawes % (Auto) 12.8 H, Eos % (Auto) 2.6, Baso % (Auto) 0.5, Neut # (Auto) 4.5, Lymph # (Auto) 0.9, Dawes # (Auto) 0.8, Eos # (Auto) 0.2, Baso # (Auto) 0.0 05/15/24 08:09: SARS-CoV-2 (PCR) Not detected, Influenza A Untype (PCR) Not detected, Influenza Type B (PCR) Not detected 05/15/24 08:35: PT 10.6, INR 0.94, APTT 31.3 H, Sodium 118 L, Potassium 3.8, Chloride 77 L, Carbon Dioxide 34 H, Anion Gap 10.8, BUN 8 L, Creatinine 0.70, Estimated Creat Clear 98, Estimated GFR 115, Est GFR ( Amer) 140, Glucose 94, Calcium 9.5, Phosphorus 4.5, Magnesium 1.7, Total Bilirubin 0.5, AST 41, ALT 19, Alkaline Phosphatase 99, Ammonia < 9 L, Troponin I < 0.01, Total Protein 7.4, Albumin 4.5, Globulin 2.9, Albumin/Globulin Ratio 1.6, Lipase 73, Plasma/Serum Alcohol 74 H, Blood Type A Positive, Antibody Screen Negative I & O for Last 24 hours: Intake & Output 05/12/24 05/13/24 05/14/24 05/15/24 23:59 23:59 23:59 23:59 Output Total 580 / 580 Balance -580 / -580 Weight 61.235 kg Constitutional Constitutional: no acute distress, cachectic, chronically ill appearing and cooperative *Routine HEENT Exam Head: Present normocephalic Eye: Present EOMI ENT: Present mucous membranes moist Comments: Left pupil deformity *Routine Neck Exam Neck: Present supple; Absent lymphadenopathy *Routine Respiratory Exam Respiratory: Present CTA bilaterally and prolonged expiratory phase; Absent respiratory distress, rhonchi, wheezes or crackles *Routine Cardiovascular Exam Cardiovascular: Present RRR *Routine Abdominal Exam Abdominal: Present soft, normoactive bowel sounds and tenderness (Epigastric) *Routine Rectal Exam Rectal:: deferred *Routine Genitalia Exam Genitalia:: deferred *Routine Extremities Exam Extremities: Absent cyanosis, clubbing or edema Comments: Thin, loss of muscle mass *Routine Skin Exam Skin: Present warm; Absent rash *Routine Neurological Exam Neurological: Present alert, oriented X3, moving all extremities and tremors; Absent altered mental status Assessment and Plan *Assessment and plan (1) Hyponatremia: Status: Acute Category: Medical Code(s): E87.1 - Hypo-osmolality and hyponatremia (2) Alcohol withdrawal: Status: Acute Category: Medical Code(s): F10.939 - Alcohol use, unspecified with withdrawal, unspecified (3) Nausea, vomiting, and diarrhea: Status: Acute Category: Medical Code(s): R11.2 - Nausea with vomiting, unspecified; R19.7 - Diarrhea, unspecified (4) Chronic pancreatitis due to chronic alcoholism: Status: Acute Category: Medical Code(s): K86.0 - Alcohol-induced chronic pancreatitis; F10.20 - Alcohol dependence, uncomplicated (5) COPD (chronic obstructive pulmonary disease): Status: Acute Category: Medical Code(s): J44.9 - Chronic obstructive pulmonary disease, unspecified (6) GERD (gastroesophageal reflux disease): Status: Acute Category: Medical Code(s): K21.9 - Gastro-esophageal reflux disease without esophagitis (7) Chronic alcohol abuse: Status: Acute Category: Medical Code(s): F10.10 - Alcohol abuse, uncomplicated (8) Malnutrition compromising bodily function: Status: Acute Category: Medical Code(s): E46 - Unspecified protein-calorie malnutrition Plan 59-year-old male who presents with nausea and vomiting. Found to have hyponatremia. Concern for alcohol withdrawal. Discussed case with ER physician, request admission for CIWA protocol and correction of hyponatremia. I agreed to admit for further management. Admitted to ICU for tonight. Will monitor closely with slow correction of his sodium and treatment for alcohol withdrawal given his history of seizures. Problems addressed as follows: Alcohol withdrawal History of alcohol withdrawal seizures -Initiated on CIWA protocol. Initial CIWA of 8 -Loaded with phenobarbital 130 mg once -Continue Valium per protocol -Seizure precautions -Initial alcohol level of 70. Will consult civil design specialist on Friday to assist with detox/rehab if patient is interested - Ammonia normal at less than 9 -Repeat CBC, CMP, magnesium ordered for the morning. -Vitamin replacement with daily rally pack, folic acid 1 mg daily, thiamine 100 mg tablet daily Nausea and vomiting Hematemesis -Blood-streaked vomit. Continue pantoprazole 40 mg IV twice - Zofran 4 mg IV once in the ER. Will monitor closely for any further needs. - White count normal at 6.5, hemoglobin 12.5, platelets 173 Hyponatremia: - Sodium 118 on presentation. Will monitor closely for correction 8 to 10 mEq a day. Rally pack daily, monitor serum sodium every 6 hours pending improvement. Sodium appears to run about 130 from review of past year of patient's labs. More fatigued and slightly confused today. -Chloride 83. Potassium 4.4. Kidney function normal with BUN 8, creatinine 0.7. Seizure disorder: Will continue home Keppra 500 mg p.o. twice daily. -Initiate phenobarbital 130 mg load in the ER. Will continue 65 mg twice daily to decrease risk for alcohol withdrawal seizures. Valium per CIWA protocol Chronic pancreatic insufficiency: Continue Creon 3 times a day with meals COPD: Does not appear to be in patient. Will consider nebulizer if patient develops shortness of breath or wheeze Full code Holding on anticoagulation given concern for hematemesis Regular diet
[2024-05-15] MEDS: PHENobarbital SOD 65MG/ML INJ 130 MG IV (11:53)
--- NOTE | 2024-05-15 11:55 | PC.NURSE ---
Dr. Milan has agreed to accept pt, ICU level bed. Called supervisor burling and joining for a bed assignment. There is no ICU level bed at this time so admission will be delayed until pt rooms are changed and cleaned. Pt updated with admission, expected wait time for the floor.
[2024-05-15] MEDS: LIDOCAINE 2% UROJET 10ML 10 ML UR (12:50)
[2024-05-15 13:11] LABS: Benzodiazepines Screen,Urine Negative ng/ml (<200)
[2024-05-15 13:12] LABS: Amphetamine/Metha Screen,Urine Negative ng/ml (<1000); Barbiturates Screen,Urine Negative ng/ml (<200)
[2024-05-15 13:13] LABS: Cannabinoid Screen,Urine Negative ng/ml (<50); Cocaine Screen,Urine Negative ng/ml (<300)
[2024-05-15 13:14] LABS: Methadone Screen,Urine Negative ng/ml (<300)
[2024-05-15 13:15] LABS: Opiate Screen,Urine Negative ng/ml (<300)
[2024-05-15 13:16] LABS: Phencyclidine Screen,Urine Negative ng/ml (<25)
--- NOTE | 2024-05-15 13:23 | PC.NURSE ---
REPORT GIVEN TO HINA RN
--- NOTE | 2024-05-15 13:50 | PC.NURSE ---
elimination output- 1,300ml via catheter
--- NOTE | 2024-05-15 13:50 | PC.NURSE ---
arrived by stretcher from ED
[2024-05-15 14:28] LABS: Chloride 83 mmol/L (98-107); Potassium 4.4 mmoL/L (3.5-5.1); Sodium 119 mmol/L (136-145)
[2024-05-15 14:31] LABS: Anion Gap 10.4 mEq/L (5-15); Blood Urea Nitrogen 8 mg/dl (9-20); Calcium 9.2 mg/dl (8.4-10.2); Carbon Dioxide 30 mmol/L (22.0-30.0); Creatinine Clearance Estimated 98 mL/min (50-200); Estimated Glomerular Filt Rate 115 ml/min (>60); GFR (African American) 140 ML/MIN (>60); Glucose 110 mg/dl (74-100)
[2024-05-15] MEDS: SUCRALFATE 1GM TABLET 1 GM PO (20:38)
[2024-05-15] MEDS: PHENobarbital SOD 65MG/ML INJ 65 MG IV (20:39)
[2024-05-15 20:51] LABS: Anion Gap 10.5 mEq/L (5-15); Blood Urea Nitrogen 10 mg/dl (9-20); Calcium 9.2 mg/dl (8.4-10.2); Carbon Dioxide 28 mmol/L (22.0-30.0); Chloride 90 mmol/L (98-107); Creatinine Clearance Estimated 104 mL/min (50-200); Estimated Glomerular Filt Rate 115 ml/min (>60); GFR (African American) 140 ML/MIN (>60); Glucose 132 mg/dl (74-100); Potassium 4.5 mmoL/L (3.5-5.1); Sodium 124 mmol/L (136-145)
[2024-05-16] VITALS (12 sets, daily range): BP systolic 106–139; BP diastolic 66–79; PULSE 62–71; RESP 12–21; TEMP 36.6–37.1; O2SAT 94–99; BMI 21.4
[2024-05-16] MEDS: diazePAM 10MG/2ML SYRINGE 5 MG IV (01:06)
[2024-05-16 02:27] LABS: Anion Gap 9.4 mEq/L (5-15); Blood Urea Nitrogen 11 mg/dl (9-20); Calcium 9.1 mg/dl (8.4-10.2); Carbon Dioxide 28 mmol/L (22.0-30.0); Chloride 93 mmol/L (98-107); Creatinine Clearance Estimated 91 mL/min (50-200); Estimated Glomerular Filt Rate 99 ml/min (>60); GFR (African American) 120 ML/MIN (>60); Glucose 111 mg/dl (74-100); Potassium 4.4 mmoL/L (3.5-5.1); Sodium 126 mmol/L (136-145)
[2024-05-16] MEDS: OCTREOTIDE ACETATE 500 MCG in 0.9 % SODIUM CHLORIDE 250 ML 25.5 MCG IV ×3 (06:30→23:51)
--- NOTE | 2024-05-16 06:48 | PC.NURSE ---
Pt has remained A/O x4. Pt has voiced complaints of severe anxiety stating he was worried it would bring on seizure activity multiple times during shift. Pt CIWA 8 while awake, diazepam administered. No seizure activity throughout shift. Pads in place. Call light within reach.
[2024-05-16 06:55] LABS: Basophils % 1.1 % (0.1-2.0); Eosinophils # 0.2 K/mm3 (0.0-0.4); Eosinophils % 5.7 % (0.1-12.0); Hematocrit 32.7 % (42.0-52.0); Hemoglobin 11.7 g/dL (14.1-18.0); Lymphocytes # 0.8 K/mm3 (0.7-4.5); Lymphocytes % 29.7 % (10-50); Mean Corpuscular HGB Conc 35.8 g/dL (31.8-35.4); Mean Corpuscular Hemoglobin 33.1 pg (27.0-31.2); Mean Corpuscular Volume 92.6 fl (80-94); Mean Platelet Volume 10.3 fl (7.4-10.4); Monocytes # 0.4 K/mm3 (0.1-1.0); Monocytes % 15.5 % (1.7-9.3); Neutrophils # 1.4 K/mm3 (1.8-7.8); Neutrophils % 47.6 % (37.0-80.0); Platelet Count 123 K/mm3 (142-424); Red Blood Count 3.53 M/mm3 (4.60-6.20); Red Cell Distribution Width 13.3 % (11.5-17.5); White Blood Count 2.8 K/mm3 (4.8-10.8)
[2024-05-16 07:01] LABS: Albumin Level 3.9 g/dl (3.5-5.0); Chloride 94 mmol/L (98-107); Potassium 4.4 mmoL/L (3.5-5.1); Sodium 126 mmol/L (136-145)
[2024-05-16 07:04] LABS: Alanine Aminotransferase 16 U/L (12-78); Albumin/Globulin Ratio 1.5 (1.1-1.8); Anion Gap 8.4 mEq/L (5-15); Aspartate Amino Transferase 34 U/L (17-59); Blood Urea Nitrogen 12 mg/dl (9-20); Calcium 9.1 mg/dl (8.4-10.2); Carbon Dioxide 28 mmol/L (22.0-30.0); Creatinine Clearance Estimated 91 mL/min (50-200); Estimated Glomerular Filt Rate 99 ml/min (>60); GFR (African American) 120 ML/MIN (>60); Globulin 2.6 g/dL (1.3-3.2); Glucose 91 mg/dl (74-100); Total Protein,Serum 6.5 g/dl (6.3-8.2)
[2024-05-16 07:05] LABS: Alkaline Phosphatase 85 U/L (38-126); Bilirubin,Total 0.6 mg/dl (0.2-1.3); Magnesium 2.2 mg/dl (1.6-2.3)
[2024-05-16] MEDS: SODIUM CHLORIDE 0.9% 10ML VIAL 10 ML IV ×2 (08:40→21:42)
[2024-05-16] MEDS: PANTOPRAZOLE 40MG VIAL 40 MG IV ×2 (08:40→21:42)
[2024-05-16] MEDS: PHENobarbital SOD 65MG/ML INJ 65 MG IV ×2 (08:40→22:03)
[2024-05-16] MEDS: THIAMINE 100MG TABLET 100 MG PO (08:40)
[2024-05-16] MEDS: FOLIC ACID 1MG TABLET 1 MG PO (08:40)
[2024-05-16] MEDS: SODIUM CHLORIDE 1,000MG TABLET 1000 MG PO ×2 (08:40→16:55)
[2024-05-16] MEDS: SUCRALFATE 1GM TABLET 1 GM PO ×2 (08:40→21:50)
[2024-05-16] MEDS: levETIRAcetam 500 MG TABLET PO ×2 (08:40→21:50)
--- NOTE | 2024-05-16 09:41 | P.PN_ITS ---
Subjective *Date: 05/16/24 *Time: 14:07 Interval history: No seizure activity overnight. Stable on room air. Sodium having some improvement. Tolerating p.o. intake. Improved epigastric pain. Denies any further vomiting. Alert and oriented. Fixated on his Ativan, concerned he is going to have withdrawal from his Ativan. Reassured him that he is on 2 antiseizure medications and receiving Valium. Medical Exam Vital signs and Labs for Last 24 Hours: Vital Signs Temp Pulse Pulse Resp BP BP Pulse Ox 05/16/24 09:00 05/16/24 08:10 05/16/24 08:00 64 18 123/69 98 05/16/24 07:00 67 12 106/66 L 94 L 05/16/24 06:32 05/16/24 06:00 62 17 137/79 97 05/16/24 05:00 62 17 117/77 97 05/16/24 05:00 05/16/24 04:00 98.8 F 05/16/24 04:00 70 05/16/24 04:00 96 05/16/24 04:00 65 05/16/24 04:00 65 17 135/76 98 05/16/24 03:00 66 18 117/69 96 05/16/24 03:00 05/16/24 02:00 65 17 117/72 95 05/16/24 01:00 68 15 128/77 97 05/16/24 01:00 05/16/24 00:00 98.0 F 05/16/24 00:00 70 05/16/24 00:00 94 L 05/16/24 00:00 71 21 135/73 94 L 05/15/24 23:00 76 16 144/78 H 98 05/15/24 22:48 05/15/24 22:00 68 12 136/76 97 05/15/24 21:00 71 17 129/72 97 05/15/24 21:00 05/15/24 20:00 73 05/15/24 20:00 98.7 F 05/15/24 20:00 96 05/15/24 20:00 72 12 139/77 95 05/15/24 19:00 78 20 147/82 H 97 05/15/24 18:45 05/15/24 18:00 71 18 136/71 96 05/15/24 17:00 70 20 136/76 97 05/15/24 17:00 05/15/24 16:00 70 05/15/24 16:00 68 18 132/75 96 05/15/24 15:05 05/15/24 15:00 05/15/24 15:00 74 18 146/80 H 98 05/15/24 14:00 79 18 177/81 H 96 05/15/24 13:50 98.6 F 76 14 138/83 95 05/15/24 13:23 98.2 F 73 18 135/79 05/15/24 13:01 71 16 135/79 05/15/24 12:00 73 17 106/63 L 96 05/15/24 11:30 77 17 102/61 L 95 05/15/24 11:00 75 15 117/72 96 05/15/24 10:30 80 16 108/77 L 98 05/15/24 10:00 85 112/71 96 O2 Del Method 05/16/24 09:00 Room Air 05/16/24 08:10 Room Air 05/16/24 08:00 Room Air 05/16/24 07:00 Room Air 05/16/24 06:32 Room Air 05/16/24 06:00 Room Air 05/16/24 05:00 Room Air 05/16/24 05:00 Room Air 05/16/24 04:00 05/16/24 04:00 05/16/24 04:00 Room Air 05/16/24 04:00 05/16/24 04:00 Room Air 05/16/24 03:00 Room Air 05/16/24 03:00 Room Air 05/16/24 02:00 Room Air 05/16/24 01:00 Room Air 05/16/24 01:00 Room Air 05/16/24 00:00 05/16/24 00:00 05/16/24 00:00 Room Air 05/16/24 00:00 Room Air 05/15/24 23:00 Room Air 05/15/24 22:48 Room Air 05/15/24 22:00 Room Air 05/15/24 21:00 Room Air 05/15/24 21:00 Room Air 05/15/24 20:00 05/15/24 20:00 05/15/24 20:00 Room Air 05/15/24 20:00 Room Air 05/15/24 19:00 Room Air 05/15/24 18:45 Room Air 05/15/24 18:00 Room Air 05/15/24 17:00 Room Air 05/15/24 17:00 Room Air 05/15/24 16:00 05/15/24 16:00 Room Air 05/15/24 15:05 Room Air 05/15/24 15:00 Room Air 05/15/24 15:00 Room Air 05/15/24 14:00 Room Air 05/15/24 13:50 05/15/24 13:23 Room Air 05/15/24 13:01 05/15/24 12:00 Room Air 05/15/24 11:30 Room Air 05/15/24 11:00 Room Air 05/15/24 10:30 Room Air 05/15/24 10:00 Room Air Intake and Output 05/15/24 05/16/24 05/16/24 23:59 07:59 15:59 Intake Total 1350 / 1400 531 / 531 Output Total 1120 / 2850 1150 / 1150 Balance 230 / -1450 -619 / -619 Intake: Intake, Oral Amount 360 / 360 Intake, Total IV Amount 990 / 1040 531 / 531 Mvi, Adult No.1 with Vit K 10 990 / 990 ml Thiamine HCl 100 mg Magnesium Sulfate 2 gm In Lactated Ringers 1000ML 1,000 ml @ 150 mls/hr IV .Q6H46M [facility] Rx#:[id number] Octreotide Acetate 500 mcg In 0 531 / 531 .9 % Sodium Chloride 250 ml @ 50 MCG/HR 25.5 mls/hr IV .Q10H [facility] Rx#:[id number] Output: Output, Urine Amount (Catheter) 1120 / 1520 1150 / 1150 Huang 1120 / 1520 1150 / 1150 Other: Number of Unmeasured Voids 0 0 Weight 64.367 kg Patient Weight 05/16/24 23:59 Weight 64.367 kg Laboratory Results - last 24 hr 05/15/24 08:35: Albumin 4.5, Globulin 2.9, Albumin/Globulin Ratio 1.6 05/15/24 12:47: Urine Opiates Screen Negative, Urine Methadone Screen Negative, Ur Barbituates Screen Negative, Ur Phencyclidine Scrn Negative, Ur Amphetamines Screen Negative, U Benzodiazepines Scrn Negative, Urine Cocaine Screen Negative, U Marijuana (THC) Screen Negative 05/15/24 14:05: Sodium 119 L, Potassium 4.4, Chloride 83 L, Carbon Dioxide 30, Anion Gap 10.4, BUN 8 L, Creatinine 0.70, Estimated Creat Clear 98, Estimated GFR 115, Est GFR ( Amer) 140, Glucose 110 H, Calcium 9.2 05/15/24 20:20: Sodium 124 L, Potassium 4.5, Chloride 90 L, Carbon Dioxide 28, Anion Gap 10.5, BUN 10, Creatinine 0.70, Estimated Creat Clear 104, Estimated GFR 115, Est GFR ( Amer) 140, Glucose 132 H, Calcium 9.2 05/16/24 01:35: Sodium 126 L, Potassium 4.4, Chloride 93 L, Carbon Dioxide 28, Anion Gap 9.4, BUN 11, Creatinine 0.80, Estimated Creat Clear 91, Estimated GFR 99, Est GFR ( Amer) 120, Glucose 111 H, Calcium 9.1 05/16/24 06:25: WBC 2.8 L D, RBC 3.53 L, Hgb 11.7 L, Hct 32.7 L, MCV 92.6, MCH 33.1 H, MCHC 35.8 H, RDW 13.3, Plt Count 123 L D, MPV 10.3, Neut % (Auto) 47.6, Lymph % (Auto) 29.7, [place] % (Auto) 15.5 H, Eos % (Auto) 5.7, Baso % (Auto) 1.1, Neut # (Auto) 1.4 L, Lymph # (Auto) 0.8, [place] # (Auto) 0.4, Eos # (Auto) 0.2, Baso # (Auto) 0.0, Sodium 126 L, Potassium 4.4, Chloride 94 L, Carbon Dioxide 28, Anion Gap 8.4, BUN 12, Creatinine 0.80, Estimated Creat Clear 91, Estimated GFR 99, Est GFR ( Amer) 120, Glucose 91, Calcium 9.1, Magnesium 2.2 D, Total Bilirubin 0.6, AST 34, ALT 16, Alkaline Phosphatase 85, Total Protein 6.5, Albumin 3.9 D, Globulin 2.6, Albumin/Globulin Ratio 1.5 I & O for Labs for Last 24 Hours: Intake & Output 05/13/24 05/14/24 05/15/24 05/16/24 23:59 23:59 23:59 23:59 Intake Total 1400 / 1400 531 / 531 Output Total 2850 / 2850 1150 / 1150 Balance -1450 / -1450 -619 / -619 Weight 64.455 kg 64.367 kg Constitutional: Present no acute distress, thin, chronically ill appearing and cooperative Head: Present atraumatic and normocephalic ENT: Present normal exam Respiratory: Present normal respiratory effort; Absent rhonchi, wheezes or crack les Cardiac: Present Regular Rhythm and Tachycardia GI: Present soft, tenderness (Interval improvement in epigastric pain) and normal bowel sounds; Absent distention Extremities: Present normal inspection and full ROM Skin: Present intact; Absent erythema Neuro: Present Grossly Intact, alert, awake, oriented x 3 and moves all extremities Assessment and Plan *Assessment and plan (1) Hyponatremia: Status: Acute Category: Medical Code(s): E87.1 - Hypo-osmolality and hyponatremia (2) Alcohol withdrawal: Status: Acute Category: Medical Code(s): F10.939 - Alcohol use, unspecified with withdrawal, unspecified (3) Nausea, vomiting, and diarrhea: Status: Acute Category: Medical Code(s): R11.2 - Nausea with vomiting, unspecified; R19.7 - Diarrhea, unspecified (4) Chronic pancreatitis due to chronic alcoholism: Status: Acute Category: Medical Code(s): K86.0 - Alcohol-induced chronic pancreatitis; F10.20 - Alcohol dependence, uncomplicated (5) COPD (chronic obstructive pulmonary disease): Status: Acute Category: Medical Code(s): J44.9 - Chronic obstructive pulmonary disease, unspecified (6) GERD (gastroesophageal reflux disease): Status: Acute Category: Medical Code(s): K21.9 - Gastro-esophageal reflux disease without esophagitis (7) Chronic alcohol abuse: Status: Acute Category: Medical Code(s): F10.10 - Alcohol abuse, uncomplicated (8) Malnutrition compromising bodily function: Status: Acute Category: Medical Code(s): E46 - Unspecified protein-calorie malnutrition Plan 59-year-old male who presents with nausea and vomiting. Found to have hyponatremia. Concern for alcohol withdrawal. Discussed case with ER physician, request admission for [facility] protocol and correction of hyponatremia. I agreed to admit for further management. Admitted to ICU. Showing improvement in sodium. No seizure since admission. Will de-escalate to MedSurg. Continues to require inpatient management. Problems addressed as follows: Alcohol withdrawal History of alcohol withdrawal seizures -Initiated on CIWI protocol. Initial CIWA of 8. Has received Valium once this morning, at least 3 times in the past 24 hours. Monitor for toxicity. -Loaded with phenobarbital 130 mg once. Continue 65 mg twice daily -Continue Valium per protocol -Seizure precautions -Initial alcohol level of 70. Will consult senior specialist on Friday to assist with detox/rehab if patient is interested -Kidney function normal at BUN of 12, creatinine 0.8. Potassium 4.4, magnesium 2.2. -Repeat CBC, CMP, magnesium ordered for the morning. -Vitamin replacement with daily rally pack, folic acid 1 mg daily, thiamine 100 mg tablet daily Nausea and vomiting Hematemesis -Blood-streaked vomit. Continue pantoprazole 40 mg IV twice - Zofran 4 mg IV once in the ER. Will monitor closely for any further needs. - White count decreased to 2.8, hemoglobin remained stable 11.7. Platelets 123. No signs of bleeding. No further hematemesis. Hyponatremia: - Sodium 118 on presentation. Correcting within range of 8 to 10 mEq a day. Improved to 126 this morning. Chloride 96. Initiate sodium chloride tablets 1000 mg twice daily. Concern for beer Potomania the source of his hyponatremia and nutritional deficiency given his consumption of 12-18 beers a day. Improving mentation. Still fatigued. Seizure disorder: - continue home Keppra 500 mg p.o. twice daily. -Phenobarbital 65 mg twice daily to decrease risk for alcohol withdrawal seizures for at least 3 days. Valium per [facility] protocol Chronic pancreatic insufficiency: Continue Creon 3 times a day with meals COPD: Does not appear to be in patient. Will consider nebulizer if patient develops shortness of breath or wheeze Full code Holding on anticoagulation given concern for hematemesis Regular diet
--- NOTE | 2024-05-16 13:52 | PC.NURSE ---
. called because patient thinks he is going to have a seizure!'
[2024-05-16] MEDS: diazePAM 10MG/2ML SYRINGE 10 MG IV (15:11)
[2024-05-16] MEDS: LIPASE/PROTEASE/AMYLASE 1 EACH CAPSULE.DR 3 EACH PO (16:55)
[2024-05-16 17:41] LABS: Chloride 98 mmol/L (98-107); Sodium 127 mmol/L (136-145)
[2024-05-16 17:42] LABS: Potassium 4.3 mmoL/L (3.5-5.1)
[2024-05-16 17:44] LABS: Blood Urea Nitrogen 9 mg/dl (9-20); Creatinine Clearance Estimated 91 mL/min (50-200); Estimated Glomerular Filt Rate 99 ml/min (>60); GFR (African American) 120 ML/MIN (>60)
[2024-05-16 17:45] LABS: Anion Gap 11.3 mEq/L (5-15); Calcium 8.8 mg/dl (8.4-10.2); Carbon Dioxide 22 mmol/L (22.0-30.0); Glucose 118 mg/dl (74-100)
[2024-05-17] VITALS: BP 131/69; PULSE 60; RESP 16; TEMP 36.6; O2SAT 98
[2024-05-17 04:00] VITALS: BP 133/68; PULSE 65; RESP 14; TEMP 36.3; O2SAT 97; BMI 21.9
[2024-05-17] MEDS: LIPASE/PROTEASE/AMYLASE 1 EACH CAPSULE.DR 3 EACH PO (06:47)
[2024-05-17] MEDS: diazePAM 10MG/2ML SYRINGE 5 MG IV (07:08)
[2024-05-17 07:17] LABS: Chloride 101 mmol/L (98-107)
[2024-05-17 07:18] LABS: Albumin Level 3.4 g/dl (3.5-5.0); Sodium 132 mmol/L (136-145)
[2024-05-17 07:19] LABS: Eosinophils # 0.2 K/mm3 (0.0-0.4); Hematocrit 30.4 % (42.0-52.0); Hemoglobin 10.6 g/dL (14.1-18.0); Lymphocytes # 0.9 K/mm3 (0.7-4.5); Lymphocytes % 30.6 % (10-50); Mean Corpuscular HGB Conc 34.9 g/dL (31.8-35.4); Mean Corpuscular Hemoglobin 32.7 pg (27.0-31.2); Mean Corpuscular Volume 93.8 fl (80-94); Mean Platelet Volume 10.6 fl (7.4-10.4); Monocytes # 0.4 K/mm3 (0.1-1.0); Neutrophils # 1.5 K/mm3 (1.8-7.8); Neutrophils % 49.1 % (37.0-80.0); Platelet Count 120 K/mm3 (142-424); Red Blood Count 3.24 M/mm3 (4.60-6.20); Red Cell Distribution Width 13.3 % (11.5-17.5)
[2024-05-17 07:20] LABS: Blood Urea Nitrogen 9 mg/dl (9-20); Carbon Dioxide 24 mmol/L (22.0-30.0); Creatinine Clearance Estimated 92 mL/min (50-200); Estimated Glomerular Filt Rate 99 ml/min (>60); GFR (African American) 120 ML/MIN (>60)
[2024-05-17 07:21] LABS: Alanine Aminotransferase 14 U/L (12-78); Albumin/Globulin Ratio 1.5 (1.1-1.8); Alkaline Phosphatase 71 U/L (38-126); Aspartate Amino Transferase 28 U/L (17-59); Bilirubin,Total 0.4 mg/dl (0.2-1.3); Calcium 8.6 mg/dl (8.4-10.2); Globulin 2.3 g/dL (1.3-3.2); Glucose 168 mg/dl (74-100); Magnesium 1.9 mg/dl (1.6-2.3); Total Protein,Serum 5.7 g/dl (6.3-8.2)
--- NOTE | 2024-05-17 07:31 | PC.WOUNDNOTE ---
Pt. is alert and orientated x 4. Pt being monitored for alcohol withdraw. CIWA scores 6-8 overnight. this am Pt. felt anxious , c/o headache, seeing spots before his eyes and felt like h was going to have a seizure. Pt. medicated with Valium. Pt. states he just does not feel wee. VSS. Personal items and call bustos in reach.
--- NOTE | 2024-05-17 07:53 | EXP.DC.SUM ---
General Admission date:: 05/15/24 Discharge date: 05/17/24 HPI HPI HPI: Mr. Casarez is a 59-year-old male with significant history of polysubstance abuse, chronic alcohol dependence, malnutrition, withdrawal seizures, and chronic hyponatremia. He presented to the ER for evaluation of worsening nausea and vomiting. States he had an episode of blood-streaked vomit over the past 24 hours. Last drink was last night per his report. Symptoms have worsened over the past 3 days. States he has been having chills. Denies diarrhea. Drinks 12-18 beers a day. Has had seizures in the past with withdrawal. Currently taking Keppra. Seen previously for similar presentation. Worked up extensively earlier this year with surgery including EGD that did not identify varices. Patient also has history of cholecystectomy and chronic pancreatitis for which she is on Creon. Workup in the ER concerning for positive alcohol level, withdrawal symptoms. Found to have severe hyponatremia at 118. Patient initiated on CIWA protocol and medicine consulted for admission and further management Since arriving to the floor, patient is feeling more stable. Concerned about having a seizure if he does not have his Ativan. Explained that he is on Valium for CIWA protocol. Loaded with phenobarbital in the ER with 130 mg IV. Still mildly tremulous. Has a cold washcloth on his face. Stable on room air. Complains of epigastric pain. Thin and malnourished appearing Hospital Course Hospital Course Hospital Course: 59-year-old male who presents with nausea and vomiting. Found to have hyponatremia. Concern for alcohol withdrawal. Discussed case with ER physician, request admission for CIWA protocol and correction of hyponatremia. I agreed to admit for further management. Admitted to ICU. Patient showed gradual improvement in his sodium levels. Nausea and vomiting resolved. Blood levels remained fairly stable. No significant alcohol withdrawal seizures. Managed on CIWA protocol. Given his clinical improvement, improvement in sodium, and stable hemodynamics along with toleration of p.o. intake, will discharge home. Follow-up with PCP in the next 1 to 2 weeks. Problems addressed as follows: Alcohol withdrawal History of alcohol withdrawal seizures -Patient presented with symptoms of alcohol withdrawal, inability to tolerate p.o. intake, and retching for few days. Initiated on CIWA protocol. Initial CIWA of 8. Treated with Valium. Loaded with phenobarbital in the ER. Continued on 65 mg twice daily to decrease risk for seizures given underlying seizure disorder. Patient showed gradual improvement during course of admission. Seizure precautions taken however no seizures noted during admission. Patient's initial alcohol level was 70. Patient does express some interest in stopping drinking. Overall did well during admission. As he is on Ativan at home and Keppra, will discharge home to resume home regimen. Treated with vitamin replacement including daily rally pack, folic acid, thiamine during admission. Resume home vitamin regimen. Nausea and vomiting Hematemesis -Blood-streaked vomit. Initiated on pantoprazole 40 mg IV twice daily. No further episodes after admission. Hemoglobin relatively stable at 10 on day of discharge. Given no active signs of bleeding, continue PPI therapy. Patient has had many workups in the past. Would benefit from outpatient follow-up with GI to evaluate esophagitis/GERD. Platelets stable at 120. Hyponatremia: - Sodium 118 on presentation. Corrected within range of 8 to 10 mEq a day. Showed gradual improvement. Consistent with beer [place]. Initiated on supplementation with sodium chloride tablets. c continue at discharge. Sodium improved to 132, chloride 101 on day of discharge. Would benefit from repeat CBC and CMP in 1 week to monitor for normalization of electrolytes. Seizure disorder: No Seizures during admission, continue home Keppra 500 mg p.o. twice daily. Withdrawal treated with Phenobarbital 65 mg twice daily for 3 days to decrease risk for alcohol withdrawal seizures. Resume home ativan regimen at discharge. Chronic pancreatic insufficiency: Continue Creon 3 times a day with meals COPD: Does not appear to be in exacerbation. stable on RA during admission Total time spent on discharge 37 minutes in counseling, documentation, chart review, and direct care with patient. Exam Data for Last 24 hours Vital signs and Labs for Last 24 Hours: Temp Pulse Resp BP Pulse Ox O2 Del Method 97.4 F L 65 14 133/68 97 Room Air 05/17/24 04:00 05/17/24 04:00 05/17/24 04:00 05/17/24 04:00 05/17/24 04:00 05/17/24 07:00 Laboratory Results - last 24 hr 05/16/24 17:20: Sodium 127 L, Potassium 4.3, Chloride 98, Carbon Dioxide 22, Anion Gap 11.3, BUN 9, Creatinine 0.80, Estimated Creat Clear 91, Estimated GFR 99, Est GFR ( Amer) 120, Glucose 118 H D, Calcium 8.8 05/17/24 06:21: WBC 3.0 L, RBC 3.24 L, Hgb 10.6 L, Hct 30.4 L, MCV 93.8, MCH 32.7 H, MCHC 34.9, RDW 13.3, Plt Count 120 L, MPV 10.6 H, Neut % (Auto) 49.1, Lymph % (Auto) 30.6, [place] % (Auto) 13.0 H, Eos % (Auto) 6.0, Baso % (Auto) 1.0, Neut # (Auto) 1.5 L, Lymph # (Auto) 0.9, [place] # (Auto) 0.4, Eos # (Auto) 0.2, Baso # (Auto) 0.0, Sodium 132 L, Potassium 4.0, Chloride 101, Carbon Dioxide 24, Anion Gap 11.0, BUN 9, Creatinine 0.80, Estimated Creat Clear 92, Estimated GFR 99, Est GFR ( Amer) 120, Glucose 168 H D, Calcium 8.6, Magnesium 1.9 D, Total Bilirubin 0.4, AST 28, ALT 14, Alkaline Phosphatase 71, Total Protein 5.7 L, Albumin 3.4 L D, Globulin 2.3, Albumin/Globulin Ratio 1.5 I & O for Last 24 hours: Intake & Output 05/14/24 05/15/24 05/16/24 05/17/24 23:59 23:59 23:59 23:59 Intake Total 1400 / 1400 1480 / 1480 Output Total 2850 / 2850 2400 / 2400 Balance -1450 / -1450 -920 / -920 Weight 64.455 kg 64.367 kg 65.635 kg Microbiology Reports for the Last 24 Hours: Microbiology 05/15/24 10:30 Blood Blood Culture - Preliminary 05/15/24 10:30 Blood Blood Culture - Preliminary Constitutional Constitutional: no acute distress, thin and chronically ill appearing *Routine HEENT Exam Head: Present normocephalic Eye: Present EOMI and normal accommodation ENT: Present mucous membranes moist *Routine Neck Exam Neck: Present supple and full ROM *Routine Respiratory Exam Respiratory: Present diminished air movement; Absent accessory muscle use *Routine Cardiovascular Exam Cardiovascular: Present RRR, Normal S1 and Normal S2 *Routine Abdominal Exam Abdominal: Present soft and normoactive bowel sounds; Absent tenderness, distended, rebound or guarding *Routine Rectal Exam Patient deferred: visual exam *Routine Exam Patient deferred: penile exam *Routine Extremities Exam Extremities: Present normal capillary refill *Routine Skin Exam Skin: Present intact and warm *Routine Neurological Exam Neurological: Present alert, oriented X3 and moving all extremities; Absent altered mental status Results Data Completed and Pending Labs on day of discharge: Labs from last 24 hours 05/17/24 05/16/24 06:21 17:20 WBC 3.0 L RBC 3.24 L Hgb 10.6 L Hct 30.4 L MCV 93.8 MCH 32.7 H MCHC 34.9 RDW 13.3 Plt Count 120 L MPV 10.6 H Neut % (Auto) 49.1 Lymph % (Auto) 30.6 [place] % (Auto) 13.0 H Eos % (Auto) 6.0 Baso % (Auto) 1.0 Neut # (Auto) 1.5 L Lymph # (Auto) 0.9 [place] # (Auto) 0.4 Eos # (Auto) 0.2 Baso # (Auto) 0.0 Sodium 132 L 127 L Potassium 4.0 4.3 Chloride 101 98 Carbon Dioxide 24 22 Anion Gap 11.0 11.3 BUN 9 9 Creatinine 0.80 0.80 Estimated Creat Clear 92 91 Estimated GFR 99 99 Est GFR ( Amer) 120 120 Glucose 168 H D 118 H D Calcium 8.6 8.8 Magnesium 1.9 D Total Bilirubin 0.4 AST 28 ALT 14 Alkaline Phosphatase 71 Total Protein 5.7 L Albumin 3.4 L D Globulin 2.3 Albumin/Globulin Ratio 1.5 Preliminary micro results at discharge 05/15/24 10:30 Blood Culture - Preliminary Blood 05/15/24 10:30 Blood Culture - Preliminary Blood DS: Diagnosis Discharge Diagnosis (1) Hyponatremia: Status: Acute Code(s): E87.1 - Hypo-osmolality and hyponatremia (2) Alcohol withdrawal: Status: Resolved Code(s): F10.939 - Alcohol use, unspecified with withdrawal, unspecified (3) Nausea, vomiting, and diarrhea: Status: Inactive Code(s): R11.2 - Nausea with vomiting, unspecified; R19.7 - Diarrhea, unspecified (4) Chronic pancreatitis due to chronic alcoholism: Status: Acute Code(s): K86.0 - Alcohol-induced chronic pancreatitis; F10.20 - Alcohol dependence, uncomplicated (5) COPD (chronic obstructive pulmonary disease): Status: Acute Code(s): J44.9 - Chronic obstructive pulmonary disease, unspecified (6) GERD (gastroesophageal reflux disease): Status: Acute Code(s): K21.9 - Gastro-esophageal reflux disease without esophagitis (7) Chronic alcohol abuse: Status: Acute Code(s): F10.10 - Alcohol abuse, uncomplicated (8) Malnutrition compromising bodily function: Status: Acute Code(s): E46 - Unspecified protein-calorie malnutrition Meds Home Medications and Allergies Home Medications ?Medication ?Instructions ?Recorded ?Confirmed ?Type folic acid 1 mg tablet 1 mg PO DAILY #100 tabs 12/01/23 05/17/24 Rx thiamine HCl (vitamin B1) 100 mg 100 mg PO DAILY #100 tabs 12/01/23 05/17/24 Rx tablet albuterol sulfate 90 mcg/actuation 1 inh inhalation Q4HP PRN 02/12/24 05/17/24 Rx breath activated powder Shortness Of Breath #1 ea inhaler,sensor fluticasone propionate 50 2 spray intranasal BID 04/14/24 05/17/24 History mcg/actuation nasal spray,suspension (Flonase Allergy Relief) [id number] 3 cap PO BIDWMEAL 04/14/24 05/17/24 History 36,000-114,000-180,000 unit capsule,delay rel sucralfate 1 gram tablet (Carafate) 1 g PO BID 04/14/24 05/17/24 History levetiracetam 500 mg tablet 500 mg PO BID #60 tabs 04/26/24 05/17/24 Rx lorazepam 2 mg tablet 2 mg PO BIDP PRN Anxiety #60 tabs 04/28/24 05/17/24 Rx ascorbic acid (vitamin C) 250 mg 250 mg PO DAILY #100 tabs 05/07/24 05/17/24 Rx tablet oxycodone 10 mg tablet 10 mg PO BIDP PRN Moderate Pain 05/13/24 05/17/24 Rx (Scale Score 5-6) #60 tabs omeprazole 40 mg capsule,delayed 40 mg PO HS #30 caps 05/17/24 Rx release sodium chloride 1,000 mg soluble 1,000 mg PO BIDWMEAL 30 days #60 05/17/24 Rx tablet tabs New Prescriptions to Start Prescriptions: João Ledesma sodium chloride João Milan Allergies Allergy/AdvReac Type Severity Reaction Status Date / Time cephalexin (From Keflex) Allergy Mild Hives Verified 03/26/24 10:21 sulfamethoxazole (From Allergy Unknown Hives Verified 03/26/24 10:21 BACTRIM) trimethoprim (From BACTRIM) Allergy Unknown Hives Verified 03/26/24 10:21 Discharge Plan Disposition Patient Disposition: Home, Self-Care Condition: Fair Discharge Order Discharge Orders: Discharge Order (Routine); Ordered 05/17/24 Ordered By: João Milan Follow up Plan Follow up with: Richard Edgar MD [Primary Care Provider] - 05/21/24 11:00 am Prescriptions/Medication Reconciliation: New omeprazole 40 mg capsule,delayed release(DR/EC) 40 mg PO HS Qty: 30 2RF sodium chloride 1,000 mg Tablet,Soluble 1,000 mg PO BIDWMEAL 30 Days Qty: 60 0RF Continued folic acid 1 mg tablet 1 mg PO DAILY Qty: 100 10RF thiamine HCl (vitamin B1) 100 mg tablet 100 mg PO DAILY Qty: 100 10RF albuterol sulfate 90 mcg/actuation aero powdr breath act w/sensor 1 inh IH Q4HP PRN (Reason: Shortness Of Breath) Qty: 1 12RF levetiracetam 500 mg tablet 500 mg PO BID Qty: 60 2RF lorazepam 2 mg tablet 2 mg PO BIDP PRN (Reason: Anxiety) Qty: 60 3RF Rx Instructions: for anxiety and control of seizures ascorbic acid (vitamin C) 250 mg tablet 250 mg PO DAILY Qty: 100 10RF oxycodone 10 mg tablet 10 mg PO BIDP PRN (Reason: Moderate Pain (Scale Score 5-6)) Qty: 60 0RF sucralfate [Carafate] 1 gram tablet 1 g PO BID fluticasone propionate [Flonase Allergy Relief] 50 mcg/actuation spray,suspension 2 spray intranasal BID Rx Instructions: administer into each nostril [id number] 36,000-114,000- 180,000 unit capsule,delayed release(DR/EC) 3 cap PO BIDWMEAL Problem Reconciliation Problems Reviewed?: Yes Patient Discharge Instructions ACTIVITY: Continue current activity DIET: continue same diet Patient Instructions: Alcohol Withdrawal, DI for Drug or Alcohol Withdrawal Print Language: Citizen Of [place] Providers Primary Care Provider: Richard Edgar Admit Provider: Jãoo Milan Attending Provider: João Milan
[2024-05-17 08:00] VITALS: BP 136/71; PULSE 66; PULSE 90; RESP 18; TEMP 36.8; O2SAT 99
--- NOTE | 2024-05-17 08:11 | SW/DCPLANNER ---
I spoke w/ this patient regarding resources once returning home. Patient is interested in resources for AA, outpatient rehab and transportation. I have provided this patient w/ an outpatient [facility] resources list. Patient stated that he will have transportation home once medically stable for discharge. Per MD patient will discharge home this afternoon.
[2024-05-17] MEDS: SUCRALFATE 1GM TABLET 1 GM PO (08:18)
[2024-05-17] MEDS: SODIUM CHLORIDE 1,000MG TABLET 1000 MG PO (08:18)
[2024-05-17] MEDS: PANTOPRAZOLE 40MG VIAL 40 MG IV (08:18)
[2024-05-17] MEDS: SODIUM CHLORIDE 0.9% 10ML VIAL 10 ML IV (08:18)
[2024-05-17] MEDS: FOLIC ACID 1MG TABLET 1 MG PO (08:19)
[2024-05-17] MEDS: levETIRAcetam 500 MG TABLET PO (08:19)
[2024-05-17] MEDS: THIAMINE 100MG TABLET 100 MG PO (08:19)
[2024-05-17] MEDS: PHENobarbital SOD 65MG/ML INJ 65 MG IV (08:33)
[2024-05-17 12:00] VITALS: BP 139/79; PULSE 77; RESP 15; TEMP 36.6; O2SAT 98
--- NOTE | 2024-05-18 11:00 | SW/DCPLANNER ---
Spoke with patient on the phone. Patient stated that he is doing well. Patient stated that he is aware of his upcoming appointments and that he was able to get his new medicine before he left the hospital. Patient stated that he has no concerns or questions at this time. Vish Kimble
== END 2024-05-17 12:40 | disposition home or self-care (01) | DRG 378 ==
LOC: ER 08:31 → 2ND 12:33
PROVIDERS: Admitting Provider Internal Medicine Adolescent Medicine; Emergency Provider Emergency Medicine; PCP Family Medicine; Visit Provider Internal Medicine Adolescent Medicine
DX: K92.0 Hematemesis (principal); E87.1 Hypo-osmolality and hyponatremia; K86.0 Alcohol-induced chronic pancreatitis; F10.939 Alcohol use, unspecified with withdrawal, unspecified; J44.9 Chronic obstructive pulmonary disease, unspecified; F19.90 Other psychoactive substance use, unspecified, uncomplicated; K70.30 Alcoholic cirrhosis of liver without ascites; Y90.3 Blood alcohol level of 60-79 mg/100 ml; G40.909 Epilepsy, unspecified, not intractable, without status epilepticus; F17.210 Nicotine dependence, cigarettes, uncomplicated; F31.9 Bipolar disorder, unspecified; K21.9 Gastro-esophageal reflux disease without esophagitis; Z79.899 Other long term (current) drug therapy; Z79.51 Long term (current) use of inhaled steroids; Z79.01 Long term (current) use of anticoagulants; Z90.49 Acquired absence of other specified parts of digestive tract; Z85.118 Personal history of other malignant neoplasm of bronchus and lung
CPT/HCPCS: 36415; 51702; 71045; 74177; 80048; 80053; 80307; 80320; 82140; 83690; 83735; 84100; 84484; 85025; 85610; 85730; 86850; 87040; 87077; 87186; 87636; 93005; 99291; J0696; J2354; J2405; J3360; J3411; J7120

== ENCOUNTER 2024-05-20 14:24 | Outpatient (CLI) | payer MEDICAID, SELFPAY ==
--- NOTE | 2024-05-20 14:25 | CT_ITS ---
FINAL REPORT TECHNIQUE: Thin section axial images were obtained from the lung apices through the upper abdomen without contrast. This study was performed with techniques to keep radiation doses as low as reasonably achievable (ALARA). Individualized dose reduction techniques using automated exposure control or adjustment of mA and/or kV according to the patient's size were employed. CLINICAL HISTORY: 8MM NODULE COMPARISON: 12/19/2023 FINDINGS: There is no mediastinal, hilar, or axillary lymphadenopathy. No pleural or pericardial effusion. There is a stable subpleural, slightly spiculated nodule in the medial right lung apex. This measures 8 mm. There is a small cluster of nodules in the left upper lobe on axial images 3332, also similar to the prior exam. A subpleural left upper lobe nodule on axial image 17 has increased slightly in size, now measuring 7 mm. This was 4 mm. Elongated nodule along the right major fissure is stable. What was previously a new ill-defined right upper lobe nodularity has resolved. There are new dependent densities within the distal trachea and both the left and right mainstem bronchus. This is likely secretions. Limited, unenhanced imaging of the upper abdomen reveals calcifications within the pancreas consistent with chronic pancreatitis. There is a large amount of ingested material in the stomach. Mild left perinephric stranding and a hypodense left renal lesion are unchanged. There is no acute osseous abnormality. IMPRESSION: 1. Previously seen new 8 mm right upper lobe nodularity has resolved. 2. Interval increase in size and a subpleural left upper lobe nodule. 3. Otherwise, pulmonary nodules are stable. 4. New dependent material within the trachea and mainstem bronchi which is likely related to secretions. Consider follow-up. Authenticated and ERN
== END 2024-05-20 23:59 | disposition home or self-care (01) ==
LOC: RAD 14:25
PROVIDERS: PCP Family Medicine; Visit Provider Family Medicine
DX: R22.2 Localized swelling, mass and lump, trunk (principal)
CPT/HCPCS: 71250

== ENCOUNTER 2024-05-25 15:53 | Emergency (ER) | payer MEDICAID, SELFPAY ==
--- NOTE | 2024-05-25 15:58 | XR_ITS ---
PROCEDURE INFORMATION: Exam: XR Left Elbow Exam date and time: 05/25/2024 4:05 PM Age: 59 years old Clinical indication: Injury or trauma; Fall; Blunt trauma (contusions or hematomas); Elbow; Left; Additional info: Fall, left arm pain TECHNIQUE: Imaging protocol: Radiologic exam of the left elbow. Views: 3 or more views. COMPARISON: CR Wrist L 05/25/2024 4:02 PM FINDINGS: Bones/joints: There is a nondisplaced fracture through the proximal ulna/olecranon process. Soft tissues: Normal. IMPRESSION: There is a nondisplaced fracture through the proximal ulna/olecranon process.
--- NOTE | 2024-05-25 15:58 | XR_ITS ---
PROCEDURE INFORMATION: Exam: XR Left Forearm Exam date and time: 05/25/2024 4:07 PM Age: 59 years old Clinical indication: Injury or trauma; Fall; Blunt trauma (contusions or hematomas); Arm, lower; Left; Additional info: Fall, left arm pain TECHNIQUE: Imaging protocol: Radiologic exam of the left forearm. Views: 2 views. COMPARISON: CR Wrist L 05/25/2024 4:02 PM FINDINGS: Bones/joints: Partially visualized nondisplaced fracture of the proximal ulna. Soft tissues: Normal. IMPRESSION: Partially visualized nondisplaced fracture of the proximal ulna.
--- NOTE | 2024-05-25 15:58 | XR_ITS ---
PROCEDURE INFORMATION: Exam: XR Left Humerus Exam date and time: 05/25/2024 3:59 PM Age: 59 years old Clinical indication: Injury or trauma; Fall; Blunt trauma (contusions or hematomas); Arm, upper; Left; Additional info: Fall, left arm pain TECHNIQUE: Imaging protocol: Radiologic exam of the left humerus. Views: 2 or more views. COMPARISON: CR Shoulder L 05/25/2024 3:56 PM FINDINGS: Bones/joints: Normal. Soft tissues: Normal. IMPRESSION: No acute findings.
--- NOTE | 2024-05-25 15:58 | XR_ITS ---
PROCEDURE INFORMATION: Exam: XR Left Wrist Exam date and time: 05/25/2024 4:02 PM Age: 59 years old Clinical indication: Injury or trauma; Fall; Blunt trauma (contusions or hematomas); Wrist; Left; Additional info: Fall, left arm pain TECHNIQUE: Imaging protocol: Radiologic exam of the left wrist. Views: 3 or more views. COMPARISON: CR Hand L 05/25/2024 4:01 PM FINDINGS: Bones/joints: Multiple views were obtained. The osseous structures appear intact with no evidence of acute fracture, dislocation, or malalignment. Degenerative changes are noted, consistent with age-related wear and tear. Joint spaces are generally preserved. No abnormal bone density or destructive lesions are noted. Soft tissues: Soft tissue swelling is observed, warranting further clinical correlation. IMPRESSION: At the time of imaging, the skeletal radiograph demonstrates no acute osseous abnormalities but shows signs of degenerative changes and soft tissue swelling.
--- NOTE | 2024-05-25 15:58 | XR_ITS ---
PROCEDURE INFORMATION: Exam: XR Left Hand Exam date and time: 05/25/2024 4:01 PM Age: 59 years old Clinical indication: Injury or trauma; Fall; Blunt trauma (contusions or hematomas); Hand; Left; Additional info: Fall, left arm pain TECHNIQUE: Imaging protocol: Radiologic exam of the left hand. Views: 3 or more views. COMPARISON: No relevant prior studies available. FINDINGS: Bones/joints: There is a small fragment at the base of the 2nd proximal phalanx which may reflect an old injury. Multiple views were obtained. The osseous structures appear intact with no evidence of acute fracture, dislocation, or malalignment. Joint spaces are preserved. No abnormal bone density or destructive lesions are noted. Soft tissues: Soft tissue swelling is observed, and further clinical correlation is advised. IMPRESSION: At the time of imaging, the skeletal radiograph demonstrates no acute osseous abnormalities but does show soft tissue swelling.
--- NOTE | 2024-05-25 15:58 | XR_ITS ---
PROCEDURE INFORMATION: Exam: XR Left Shoulder Exam date and time: 05/25/2024 3:56 PM Age: 59 years old Clinical indication: Injury or trauma; Fall; Blunt trauma (contusions or hematomas); Shoulder; Left; Additional info: Fall, left arm pain TECHNIQUE: Imaging protocol: Radiologic exam of the left shoulder. Views: 2 or more views. COMPARISON: CR XR CHEST PORTABLE 05/15/2024 8:20 AM FINDINGS: Bones/joints: Normal. Soft tissues: Normal. IMPRESSION: No acute findings.
[2024-05-25 16:27] VITALS: BP 105/64; PULSE 94; RESP 18; TEMP 36.6; O2SAT 98; BMI 20.5
--- NOTE | 2024-05-25 16:35 | ED_ITS ---
Discharge Plan Disposition Patient Disposition: Home, Self-Care Condition: Good Prescriptions Prescriptions: No Action folic acid 1 mg tablet 1 mg PO DAILY Qty: 100 10RF thiamine HCl (vitamin B1) 100 mg tablet 100 mg PO DAILY Qty: 100 10RF albuterol sulfate 90 mcg/actuation aero powdr breath act w/sensor 1 inh IH Q4HP PRN (Reason: Shortness Of Breath) Qty: 1 12RF levetiracetam 500 mg tablet 500 mg PO BID Qty: 60 2RF lorazepam 2 mg tablet 2 mg PO BIDP PRN (Reason: Anxiety) Qty: 60 3RF Rx Instructions: for anxiety and control of seizures ascorbic acid (vitamin C) 250 mg tablet 250 mg PO DAILY Qty: 100 10RF oxycodone 10 mg tablet 10 mg PO BIDP PRN (Reason: Moderate Pain (Scale Score 5-6)) Qty: 60 0RF sodium chloride 1,000 mg tablet,soluble 1,000 mg PO BIDWMEAL 30 Days Qty: 60 0RF omeprazole 40 mg capsule,delayed release(DR/EC) 40 mg PO HS Qty: 30 2RF sucralfate [Carafate] 1 gram tablet 1 g PO BID fluticasone propionate [Flonase Allergy Relief] 50 mcg/actuation spray,suspension 2 spray intranasal BID Rx Instructions: administer into each nostril [id number] 36,000-114,000- 180,000 unit capsule,delayed release(DR/EC) 3 cap PO BIDWMEAL Referrals Follow up/Referrals: Baltazar Hdz DO [Staff Physician] - See instructions Richard Edgar MD [Primary Care Provider] - See instructions Activity Restrictions/Add. Instructions Additional Instructions/Restrictions: Rest the extremity, apply ice for 15 minutes as tolerated three or four times per day, Elevate the extremity as tolerated while you are resting. Take ibuprofen for pain. Follow up with Dr. Hdz (orthopedics). I put in a referral and called Dr. Hdz about your injury, but you need to call his office in the morning to schedule an appointment to be seen there. His office phone number will be on this paperwork. Follow up with your regular doctor. GO TO THE ER FOR ANY WORSENING SYMPTOMS Keep an eye on your swelling and make sure your finger stay warm and and that you have normal feeling in them. If your fractured elbow swells through the night it could interfere with blood flow down your arm. If you have any doubts you could remove the top elastic bandage and wrap them back looser. Clinical Impressions Clinical Impression: Closed fracture of head of left ulna Instructions Patient Instructions: Elbow Fracture, DI for Elbow Fracture, How to Take Care of Your Splint Print Language Print Language: Omani Discharge ED Provider: João Varner [facility] [place] HPI General Stated complaint: AO01/07@1200 fall Lt elbow inj Mode of Arrival: Ambulatory Source of Information: Patient Time Seen by Provider: 05/25/24 16:30 Description of Symptoms (Recalled from Triage Doc. by RN): FALL ON LEFT SIDE HEENT Symptoms (Recalled from RN notes): No Resp Symptoms (Recalled from RN notes): No Skin Symptoms (Recalled from RN notes): No MS Symptoms (Recalled from RN notes): Yes Functional Status (Recalled from RN notes): HURTS TO MOVE ARM History of Present Illness Provider Complaint: He states that he fell earlier today on ice and came down directly on his left elbow. Since then she has had left elbow pain and swelling. He is also having forearm pain and upper arm pain. He denies any other injury. He denies hitting his head and he denies any neck pain. Related Data Home Medications ?Medication ?Instructions ?Recorded ?Confirmed fluticasone propionate 50 2 spray intranasal BID 04/14/24 05/21/24 mcg/actuation nasal spray,suspension (Flonase Allergy Relief) [id number] 3 cap PO BIDWMEAL 04/14/24 05/21/24 36,000-114,000-180,000 unit capsule,delay rel sucralfate 1 gram tablet (Carafate) 1 g PO BID 04/14/24 05/21/24 Previous Rx's ?Medication ?Instructions ?Recorded folic acid 1 mg tablet 1 mg PO DAILY #100 tabs 12/01/23 thiamine HCl (vitamin B1) 100 mg 100 mg PO DAILY #100 tabs 12/01/23 tablet albuterol sulfate 90 mcg/actuation 1 inh inhalation Q4HP PRN 02/12/24 breath activated powder Shortness Of Breath #1 ea inhaler,sensor levetiracetam 500 mg tablet 500 mg PO BID #60 tabs 04/26/24 lorazepam 2 mg tablet 2 mg PO BIDP PRN Anxiety #60 tabs 04/28/24 ascorbic acid (vitamin C) 250 mg 250 mg PO DAILY #100 tabs 05/07/24 tablet oxycodone 10 mg tablet 10 mg PO BIDP PRN Moderate Pain 05/13/24 (Scale Score 5-6) #60 tabs omeprazole 40 mg capsule,delayed 40 mg PO HS #30 caps 05/17/24 release sodium chloride 1,000 mg soluble 1,000 mg PO BIDWMEAL 30 days #60 05/24/24 tablet tabs Allergies Allergy/AdvReac Type Severity Reaction Status Date / Time cephalexin (From Keflex) Allergy Mild Hives Verified 05/21/24 11:03 sulfamethoxazole (From Allergy Unknown Hives Verified 05/21/24 11:03 BACTRIM) trimethoprim (From BACTRIM) Allergy Unknown Hives Verified 05/21/24 11:03 Worker's Comp Is this a Worker's Comp case?: No [facility] Disclaimer: The information contained in this section may have been updated after the patient was seen, as this information can be updated by other users. Medical History Piloerection Paresthesias Weakness Nausea, vomiting, and diarrhea Abdominal pain, chronic, epigastric Periumbilical abdominal pain Cough Lung nodule Acute on chronic pancreatitis Acute on chronic pancreatitis Hypochloremia Hearing loss Pancreatic pseudocyst Chronic alcohol abuse Bipolar 1 disorder Seizures Abdominal aneurysm Excessive cerumen in left ear canal SBO (small bowel obstruction) Acute pancreatitis Cachexia Acute on chronic pancreatitis Gastrostomy tube dependent Metastatic non-small cell lung cancer Severe protein-calorie malnutrition Lung cancer metastatic to bone Abdominal pain Pancreatic pseudocyst Abdominal pain Bone marrow disorder Cirrhosis COPD (chronic obstructive pulmonary disease) GERD (gastroesophageal reflux disease) Gastric outlet obstruction History of lung cancer Pancreatic pseudocyst Alcoholic pancreatitis Anxiety History of lung cancer Alcohol abuse Pancreatitis, acute Gallstone pancreatitis will refer to surgery Pancreatitis Hypokalemia Surgical History History of local excision of skin lesion History of aortic aneurysm repair History of cholecystectomy Hx of cholecystectomy Family History Other Cancer of lung Emphysema lung Social History Smoking Status: Current every day smoker tobacco type: cigarettes packs per day: 3 alcohol intake: current alcohol intake frequency: a few times a week substance use type: denies use current occupational status: unemployed and disabled Travel in the last 8 weeks: None household members: family housing: house current occupational exposures/hazards: No caffeine: No Have you lived/traveled outside [place] in past 30 days?: No Contact w/someone who lives/traveled outside [place] past 30 days?: No Exposure to someone with infectious disease in past 14 days?: No Do you have a fever (greater than 100.4 F or 38 C)?: No Have you tested positive for COVID-19: No Exposed to someone with COVID-19 in past 14 days?: No Do you have a sore throat?: No Do you have a cough?: No Do you have any weakness?: No Do you have any diarrhea?: No Are you experiencing any unusual bleeding?: No Do you have any muscle aches/pain?: No Do you have any abdominal pain?: No Are you experiencing loss of taste or smell?: No ROS Obtained: Yes All systems reviewed & no additional complaints except as documented Constitutional Constitutional: Denies chills and Denies fever(s) Eyes Eyes: Denies eye discharge ENT Ears, Nose, Mouth, and Throat: Denies dizziness, Denies otalgia, Denies neck pain and Denies sore throat Cardiovascular Cardiovascular: Denies chest pain Respiratory Respiratory: Denies shortness of breath, Denies chest congestion, Denies cough, Denies stridor and Denies wheezing Gastrointestinal Gastrointestingal: Denies nausea or vomiting Musculoskeletal Musculoskeletal: Reports as per HPI, Denies back pain and Denies neck pain Integumentary/Breasts Skin/Breast: Denies redness, Denies rash and Denies wounds Neurologic Neurologic: Denies dizziness and Denies paresthesias Allergic/Immunologic Allergic/Immunologic: Denies wheezing Physical Exam General General appearance: alert and in no apparent distress Head Head exam: atraumatic, normocephalic and normal inspection Eye Eye exam: Present normal appearance, PERRL and EOMI ENT ENT exam: Present normal exam, normal oropharynx, mucous membranes moist, TM's normal bilaterally and normal external ear exam Neck Neck exam: Present normal inspection, full ROM and trachea midline; Absent meningismus or lymphadenopathy Chest Chest inspection: Present normal inspection and symmetric chest wall rise; Absent tenderness Respiratory Respiratory exam: Present normal lung sounds bilaterally; Absent respiratory distress Cardiovascular Cardiovascular exam: Present regular rate and normal rhythm; Absent JVD Abdominal Exam Abdominal exam: Present soft and normal bowel sounds; Absent distention, tenderness or guarding Extremities Exam Extremities exam: Present normal capillary refill; Absent calf tenderness Expanded Upper Extremity Exam Left: Shoulder exam: Present full ROM; Absent tenderness, swelling, abrasion, laceration, ecchymosis, deformity, crepitus, dislocation, erythema or tenderness over AC joint Arm exam: Present full ROM and tenderness; Absent swelling, abrasion, laceration, ecchymosis, deformity, crepitus or erythema Elbow exam: Present tenderness, swelling, pain w/ pronation/supination and tenderness over radial head; Absent full ROM, abrasion, laceration, ecchymosis, deformity, crepitus, dislocation, erythema or effusion Forearm/Wrist exam: Present normal inspection and full ROM; Absent tender ness, swelling, abrasion, laceration, ecchymosis, deformity, crepitus, dislocation, erythema, tenderness over anatomical snuff box or pain with axial thumb loading Hand exam: Present normal inspection and full ROM; Absent tenderness, swelling, abrasion, laceration, skin avulsion, ecchymosis, deformity, crepitus, dislocation, erythema, amputation, nail avulsion or subungual hematoma Neuromotor exam: Normal wrist extension, thumb opposition, thumb IP flexion, thumb adduction and fingers 2-5 abduction Neurosensory exam: Normal radial nerve, ulnar nerve and median nerve Vascular exam: Normal capillary refill, radial pulse and ulnar pulse Back Exam Back exam: Present normal inspection; Absent tenderness Neurological Exam Neurological exam: Present alert and oriented X3 Psychiatric Psychiatric exam: Present normal affect and normal mood Skin Skin exam: Present warm, dry, intact and normal color Lymphatic Lymphatic Findings: no adenopathy Medical Decision Making Medical Records Medical records reviewed: No I reviewed the patient's medical records. Screening: Per USPSTF and CDC recommendations, given the prevalence of disease in our region, it is our hospital?s policy to screen for HIV and viral Hepatitis for all patients aged 18 and over and those with ongoing risk factors. [place] Inquiry Pt receiving controlled substance: No Vital Signs: 05/25/24 16:27 Temperature 97.9 F Temperature Source Oral Pulse Rate [Left Radial] 94 H Respiratory Rate 18 Blood Pressure [Left Arm] 105/64 L Blood Pressure Mean [Left Arm] 77 02 Sat by Pulse Oximetry 98 Orders (Tests/Meds): ORDERS Category Date Time Status XR elbow LT min 3V Stat Exams 05/25/24 15:58 Completed XR forearm LT 2V Stat Exams 05/25/24 15:58 Taken XR hand LT min 3V Stat Exams 05/25/24 15:58 Completed XR humerus LT Stat Exams 05/25/24 15:58 Taken XR shoulder LT min 2V Stat Exams 05/25/24 15:58 Completed XR wrist LT min 3V Stat Exams 05/25/24 15:58 Completed Radiology Data #1: Image(s): Elbow Image Reviewed: Yes I reviewed the patient's radiology image and Yes I have reviewed radiologist's interpretation Preliminary Findings: Abnormal Accession No. : [id number] Patient Name / ID : ADDISON NICHOLSON / [id number] Exam Date : 05/25/2024 16:05:46 ( Final ) Study Comment : Sex / Age : M / 59Y Creator : SHAINA SHERWOOD MD Dictator : Deli Department Manager : Disassembler : SHAINA SHERWOOD MD Approver2 : Report Date : 05/25/2024 16:34:01 My Comment : PROCEDURE INFORMATION: Exam: XR Left Elbow Exam date and time: 05/25/2024 4:05 PM Age: 59 years old Clinical indication: Injury or trauma; Fall; Blunt trauma (contusions or hematomas); Elbow; Left; Additional info: Fall, left arm pain TECHNIQUE: Imaging protocol: Radiologic exam of the left elbow. Views: 3 or more views. COMPARISON: CR Wrist L 05/25/2024 4:02 PM FINDINGS: Bones/joints: There is a nondisplaced fracture through the proximal ulna/olecranon process. Soft tissues: Normal. IMPRESSION: There is a nondisplaced fracture through the proximal ulna/olecranon process. Procedures Risk/Benefits of Procedure(s) Were Explained: Yes Orthopedic Splinting/Casting Injury #1: Side: left Upper Extremity Injury Location: upper arm, elbow and forearm Upper Extremity Immobilizer: posterior splint and applied by nurse/dr wallace Post Cast/Splinting Neuro Status: intact and no change Post Cast/Splinting Vasc Status: intact and no change
[2024-05-25 18:00] VITALS: BP 105/64; PULSE 94; RESP 18; TEMP 36.6
== END 2024-05-25 18:25 | disposition home or self-care (01) ==
PROVIDERS: Emergency Provider Nurse Practitioner Family; PCP Family Medicine
DX: S52.002A Unspecified fracture of upper end of left ulna, initial encounter for closed fracture (principal); M79.602 Pain in left arm
CPT/HCPCS: 29105; 73030; 73060; 73080; 73090; 73110; 73130; 99212; G0381

== ENCOUNTER 2024-06-15 19:01 | Inpatient (IN) | payer MEDICAID, SELFPAY ==
[2024-06-15 19:01] VITALS: BP 143/79; PULSE 75; RESP 18; TEMP 36.9; O2SAT 97; BMI 20.5
[2024-06-15 19:28] LABS: Albumin Level 4.4 g/dl (3.5-5.0); Chloride 79 mmol/L (98-107)
[2024-06-15 19:29] LABS: Potassium 3.3 mmoL/L (3.5-5.1); Sodium 117 mmol/L (136-145)
[2024-06-15] MEDS: PANTOPRAZOLE 40MG VIAL 40 MG IV (19:30)
[2024-06-15 19:31] LABS: Alanine Aminotransferase 18 U/L (12-78); Anion Gap 12.3 mEq/L (5-15); Aspartate Amino Transferase 37 U/L (17-59); Blood Urea Nitrogen 4 mg/dl (9-20); Carbon Dioxide 29 mmol/L (22.0-30.0); Creatinine Clearance Estimated 138 mL/min (50-200); Estimated Glomerular Filt Rate 170 ml/min (>60); GFR (African American) 206 ML/MIN (>60)
[2024-06-15] MEDS: KETOROLAC 30MG/ML VIAL 15 MG IV (19:31)
[2024-06-15] MEDS: METOCLOPRAMIDE HCL 10MG/2ML VIAL 10 MG IVP (19:31)
[2024-06-15 19:32] LABS: Albumin/Globulin Ratio 1.8 (1.1-1.8); Alkaline Phosphatase 87 U/L (38-126); Bilirubin,Total 0.4 mg/dl (0.2-1.3); Calcium 8.5 mg/dl (8.4-10.2); Globulin 2.4 g/dL (1.3-3.2); Glucose 121 mg/dl (74-100); Magnesium 1.5 mg/dl (1.6-2.3); Phosphorous 2.7 mg/dl (2.5-4.5); Total Protein,Serum 6.8 g/dl (6.3-8.2)
[2024-06-15 19:33] LABS: Basophils % 0.7 % (0.1-2.0); Eosinophils # 0.2 K/mm3 (0.0-0.4); Eosinophils % 3.5 % (0.1-12.0); Hematocrit 31.5 % (42.0-52.0); Hemoglobin 11.7 g/dL (14.1-18.0); Lymphocytes # 0.7 K/mm3 (0.7-4.5); Lymphocytes % 15.4 % (10-50); Mean Corpuscular HGB Conc 37.1 g/dL (31.8-35.4); Mean Corpuscular Hemoglobin 32.5 pg (27.0-31.2); Mean Corpuscular Volume 87.5 fl (80-94); Mean Platelet Volume 9.6 fl (7.4-10.4); Monocytes # 0.6 K/mm3 (0.1-1.0); Monocytes % 13.3 % (1.7-9.3); Neutrophils # 2.9 K/mm3 (1.8-7.8); Neutrophils % 66.9 % (37.0-80.0); Platelet Count 164 K/mm3 (142-424); White Blood Count 4.3 K/mm3 (4.8-10.8)
--- NOTE | 2024-06-15 19:33 | ED_ITS ---
Discharge Plan Disposition Patient Disposition: Admitted Condition: Good Clinical Impressions Clinical Impression: Substance use disorder, Hyponatremia, Alcohol intoxication Discharge ED Provider: Jen Garcia General Adult HPI General Chief complaint: Alcohol Stated complaint: n/v- alcohol withdrawl Time Seen by Provider: 06/15/24 19:16 Mode of Arrival: EMS Source of Information: Patient and EMS Limitations: No Limitations Description of Symptoms (Recalled from ER Triage Doc. by RN): Patient presents to ED via [facility] with vomiting 2-3 days. Patient states he has been drinking alcohol daily usually 12+ beers a day. Last drink was a few hours ago at home. Patient reports no food intake in days. History of Present Illness HPI narrative: This patient is a 59-year-old male well-known to the emergency department with history of alcohol abuse, pancreatic pseudocyst, recurrent alcoholic pancreatitis presenting to the emergency department for evaluation with concern for nausea, vomiting, inability to tolerate oral intake. Patient has had multiple visits for this concern over the last several months here in the ED. He states that this episode is similar and feels like a flare of his chronic symptoms. He is coming in requesting his nighttime Ativan, stating that he has alcohol withdrawal seizures and seizures in general if he does not take the Ativan. He states that he is not been able to keep anything down but was able to drink some alcohol just prior to arrival and keep it down. He typically drinks 12 beers a day. Related Data Home Medications ?Medication ?Instructions ?Recorded ?Confirmed fluticasone propionate 50 2 spray intranasal BID 04/14/24 05/27/24 mcg/actuation nasal spray,suspension (Flonase Allergy Relief) [id number] 3 cap PO BIDWMEAL 04/14/24 05/27/24 36,000-114,000-180,000 unit capsule,delay rel sucralfate 1 gram tablet (Carafate) 1 g PO BID 04/14/24 05/27/24 Previous Rx's ?Medication ?Instructions ?Recorded folic acid 1 mg tablet 1 mg PO DAILY #100 tabs 12/01/23 thiamine HCl (vitamin B1) 100 mg 100 mg PO DAILY #100 tabs 12/01/23 tablet albuterol sulfate 90 mcg/actuation 1 inh inhalation Q4HP PRN 02/12/24 breath activated powder Shortness Of Breath #1 ea inhaler,sensor levetiracetam 500 mg tablet 500 mg PO BID #60 tabs 04/26/24 lorazepam 2 mg tablet 2 mg PO BIDP PRN Anxiety #60 tabs 04/28/24 ascorbic acid (vitamin C) 250 mg 250 mg PO DAILY #100 tabs 05/07/24 tablet omeprazole 40 mg capsule,delayed 40 mg PO HS #30 caps 05/17/24 release sodium chloride 1,000 mg soluble 1,000 mg PO BIDWMEAL 30 days #60 05/24/24 tablet tabs oxycodone 10 mg tablet 10 mg PO BIDP PRN Moderate Pain 06/11/24 (Scale Score 5-6) #60 tabs Allergies Allergy/AdvReac Type Severity Reaction Status Date / Time cephalexin (From Keflex) Allergy Mild Hives Verified 05/27/24 10:07 sulfamethoxazole (From Allergy Unknown Hives Verified 05/27/24 10:07 BACTRIM) trimethoprim (From BACTRIM) Allergy Unknown Hives Verified 05/27/24 10:07 [facility] Disclaimer: The information contained in this section may have been updated after the patient was seen, as this information can be updated by other users. Medical History Piloerection Paresthesias Weakness Nausea, vomiting, and diarrhea Abdominal pain, chronic, epigastric Periumbilical abdominal pain Cough Lung nodule Acute on chronic pancreatitis Acute on chronic pancreatitis Hypochloremia Hearing loss Pancreatic pseudocyst Chronic alcohol abuse Bipolar 1 disorder Seizures Abdominal aneurysm Excessive cerumen in left ear canal SBO (small bowel obstruction) Acute pancreatitis Cachexia Acute on chronic pancreatitis Gastrostomy tube dependent Metastatic non-small cell lung cancer Severe protein-calorie malnutrition Lung cancer metastatic to bone Abdominal pain Pancreatic pseudocyst Abdominal pain Bone marrow disorder Cirrhosis COPD (chronic obstructive pulmonary disease) GERD (gastroesophageal reflux disease) Gastric outlet obstruction History of lung cancer Pancreatic pseudocyst Alcoholic pancreatitis Anxiety History of lung cancer Alcohol abuse Pancreatitis, acute Gallstone pancreatitis Pancreatitis Hypokalemia Surgical History History of local excision of skin lesion History of aortic aneurysm repair History of cholecystectomy Hx of cholecystectomy Family History Other Cancer of lung Emphysema lung Social History Smoking Status: Current every day smoker tobacco type: cigarettes packs per day: 3 alcohol intake: current alcohol intake frequency: a few times a week substance use type: denies use current occupational status: unemployed and disabled Travel in the last 8 weeks: None household members: family housing: house current occupational exposures/hazards: No caffeine: No Have you lived/traveled outside [place] in past 30 days?: No Contact w/someone who lives/traveled outside [place] past 30 days?: No Exposure to someone with infectious disease in past 14 days?: No Do you have a fever (greater than 100.4 F or 38 C)?: No Have you tested positive for COVID-19: No Exposed to someone with COVID-19 in past 14 days?: No Do you have a sore throat?: No Do you have a cough?: No Do you have any weakness?: No Do you have any diarrhea?: No Are you experiencing any unusual bleeding?: No Do you have any muscle aches/pain?: No Do you have any abdominal pain?: No Are you experiencing loss of taste or smell?: No Other Medical History Have you received the Flu Vaccine for this season: No Have you received the Pneumonia Vaccine: No ROS Obtained: Yes All systems reviewed & no additional complaints except as documented Physical Exam General General appearance: alert and in no apparent distress Head Head exam: atraumatic and normocephalic Eye Eye exam: Present normal appearance, PERRL and EOMI ENT ENT exam: Present normal exam, normal oropharynx, mucous membranes moist and normal external ear exam Neck Neck exam: Present normal inspection, full ROM and trachea midline; Absent tenderness Chest Chest inspection: Present normal inspection and symmetric chest wall rise; Absent tenderness Respiratory Respiratory exam: Present normal lung sounds bilaterally; Absent respiratory distress, wheezes, stridor or accessory muscle use Cardiovascular Cardiovascular exam: Present regular rate and normal rhythm Abdominal Exam Abdominal exam: Present soft; Absent distention, tenderness or guarding Extremities Exam Extremities exam: Present normal inspection, full ROM and normal capillary refill; Absent tenderness or edema Back Exam Back exam: Present normal inspection and full ROM; Absent tenderness Neurological Exam Neurological exam: Present alert, oriented X3, CN II-XII intact and normal gait; Absent motor sensory deficit Psychiatric Psychiatric exam: Present normal affect and normal mood Skin Skin exam: Present warm and dry Medical Decision Making Medical Records Medical records reviewed: Yes I reviewed the patient's medical records. Screening: Per USPSTF and CDC recommendations, given the prevalence of disease in our region, it is our hospital?s policy to screen for HIV and viral Hepatitis for all patients aged 18 and over and those with ongoing risk factors. [place] Inquiry Pt receiving controlled substance: No Vital Signs: 06/15/24 19:01 06/15/24 21:26 Temperature 98.5 F 98 F Temperature Source Oral Pulse Rate 88 Pulse Rate [Right Brachial] 75 Respiratory Rate 18 20 Blood Pressure 112/78 Blood Pressure [Right Arm] 143/79 H Blood Pressure Mean [Right Arm] 100 Blood Pressure Source [Right Arm] Automatic Cuff Blood Pressure Position [Right Arm] Supine 02 Sat by Pulse Oximetry 97 Oxygen Delivery Method Room Air Room Air Lab Data Lab results reviewed: Yes I reviewed the patient's lab results. Lab Results 06/15/24 19:12: WBC 4.3 L, RBC 3.60 L, Hgb 11.7 L, Hct 31.5 L, MCV 87.5, MCH 32.5 H, MCHC 37.1 H, RDW 12.0, Plt Count 164, MPV 9.6, Neut % (Auto) 66.9, Lymph % (Auto) 15.4, Quay % (Auto) 13.3 H, Eos % (Auto) 3.5, Baso % (Auto) 0.7, Neut # (Auto) 2.9, Lymph # (Auto) 0.7, Quay # (Auto) 0.6, Eos # (Auto) 0.2, Baso # (Auto) 0.0, PT 10.3, INR 0.93, APTT 28.7 H, Sodium 117 L, Potassium 3.3 L, C hloride 79 L, Carbon Dioxide 29, Anion Gap 12.3, BUN 4 L, Creatinine 0.50 L, Estimated Creat Clear 138, Estimated GFR 170, Est GFR ( Amer) 206, G lucose 121 H, Calcium 8.5, Phosphorus 2.7, Magnesium 1.5 L, Total Bilirubin 0.4, AST 37, ALT 18, Alkaline Phosphatase 87, Total Protein 6.8, Albumin 4.4, Globulin 2.4, Albumin/Globulin Ratio 1.8, Lipase 100, Plasma/Serum Alcohol 65 H, HCV Ab SHELDON w/Rflx PCR Qn Negative, HIV Ag/Ab Combo Qual Negative 06/15/24 21:02: Urine Opiates Screen Negative, Urine Methadone Screen Negative, Ur Barbituates Screen Negative, Ur Phencyclidine Scrn Negative, Ur Amphetamines Screen Negative, U Benzodiazepines Scrn Negative, Urine Cocaine Screen Negative, U Marijuana (THC) Screen Negative 06/15/24 21:13: Urine Color Yellow, Urine Appearance Clear, Urine pH 7.0, Ur Specific [place] 1.010, Urine Protein Negative, Urine Glucose (UA) Negative, Urine Ketones Negative, Urine Blood Negative, Urine Nitrate Negative, Urine Bilirubin Negative, Urine Urobilinogen 0.2, Ur Leukocyte Esterase Negative, Urine RBC Occasional, Urine WBC Occasional, Ur Squamous Epith Cells 3-5 06/15/24 19:12 06/15/24 19:12 Orders (Tests/Meds): ED MEDICATIONS Generic Name Dose Route Start Last Admin Trade Name Freq PRN Reason Stop Dose Admin Enoxaparin Sodium 40 mg 06/16/24 09:00 Enoxaparin 40mg/0.4ml Syringe SUBCUT 07/16/24 08:59 DAILY [facility] Folic Acid 1 mg 06/16/24 09:00 Folic Acid 1mg Tablet PO 07/16/24 08:59 DAILY [facility] Levetiracetam 500 mg 06/15/24 22:00 06/15/24 22:34 Levetiracetam 100 Mg/Ml Solution PO 07/15/24 21:59 500 mg BID BUZZ Administration Lorazepam 2 mg 06/15/24 22:00 Lorazepam 2mg/Ml Vial IV 07/15/24 21:59 Q1HP PRN CIWA >16 Lorazepam 1 mg 06/15/24 22:00 06/15/24 22:34 Lorazepam 1mg Tablet PO 07/15/24 21:59 1 mg Q6HP PRN Administration CIWA 2-7 Lorazepam 1 mg 06/15/24 22:00 Lorazepam 1mg Tablet PO 07/15/24 21:59 Q1HP PRN CIWA Score 8-15 Magnesium Oxide 800 mg 06/16/24 09:00 Magnesium Oxide 400mg Tablet PO 07/16/24 08:59 DAILY [facility] Multivitamins 1 each 06/16/24 17:00 Multivitamin Tablet PO 07/16/24 16:59 1700 [facility] Nicotine 21 mg 06/15/24 21:55 Nicotine 21mg/24hr Patch TD 07/15/24 21:54 DAILYP PRN Nicotine Cravings Ondansetron HCl 4 mg 06/15/24 21:55 Ondansetron 4mg/2ml Vial IV 07/15/24 21:54 Q8HP PRN Nausea Sodium Chloride 10 ml 06/15/24 19:22 Sodium Chloride 0.9% 10ml Vial IV 07/15/24 19:21 NEEDED PRN dilute protonix Sodium Chloride 10 ml 06/15/24 21:55 Sodium Chloride 0.9% 10ml Flush Syringe IV 07/15/24 21:54 NEEDED PRN Maintain IV Site Sodium Chloride 10 ml 06/15/24 22:00 Sodium Chloride 0.9% 10ml Vial IV 07/15/24 21:59 NEEDED PRN to Dilute Lorazepam inj Thiamine HCl 100 mg 06/16/24 09:00 Thiamine 100mg Tablet PO 06/18/24 09:01 DAILY BUZZ Discontinued Medications Generic Name Dose Route Start Last Admin Trade Name Freq PRN Reason Stop Dose Admin Sodium Chloride 1,000 mls @ 999 mls/hr 06/15/24 19:39 06/15/24 19:53 Sod Chlor 0.9% 1000ml Bag IV 06/15/24 20:39 999 mls/hr .Q1H1M ONE Administration Magnesium Sulfate 2 gm in 50 mls @ 50 mls/hr 06/15/24 19:39 06/15/24 19:53 Magnesium Sulfate 2gm/50ml Premix IV 06/15/24 20:38 50 mls/hr ONCE ONE Administration Potassium Chloride/Water 100 mls @ 100 mls/hr 06/15/24 19:39 06/15/24 19:53 Potassium Chloride 10meq/100ml Ivpb IV 06/15/24 20:38 100 mls/hr ONCE ONE Administration Ketorolac Tromethamine 15 mg 06/15/24 19:22 06/15/24 19:31 Ketorolac 30mg/Ml Vial IV 06/15/24 19:23 15 mg ONCE ONE Administration Metoclopramide HCl 10 mg 06/15/24 19:22 06/15/24 19:31 Metoclopramide Hcl 10mg/2ml Vial IVP 06/15/24 19:23 10 mg ONCE ONE Administration Pantoprazole Sodium 40 mg 06/15/24 19:22 06/15/24 19:30 Pantoprazole 40mg Vial IV 06/15/24 19:23 40 mg ONCE ONE Administration ORDERS Category Date Time Status Consult Shoe Polisher [CONS] Routine Cons 06/15/24 20:17 Active Activated Partial Thrombo Time Routine Lab 06/15/24 19:12 Completed Complete Blood Count Auto Diff Routine Lab 06/15/24 19:12 Completed Comprehensive Metabolic Panel Routine Lab 06/15/24 19:12 Completed Drug Screen,Urine Routine Lab 06/15/24 21:02 Completed Ethyl Alcohol Stat Lab 06/15/24 19:12 Completed HIV Combo Stat Lab 06/15/24 19:12 Completed Hepatitis C Ab Qual. W/ RFX Stat Lab 06/15/24 19:12 Completed Lipase Stat Lab 06/15/24 19:12 Completed Magnesium Routine Lab 06/15/24 19:12 Completed Phosphorous Routine Lab 06/15/24 19:12 Completed Prothrombin Time INR Routine Lab 06/15/24 19:12 Completed UA [Urinalysis and Microscopic] Stat Lab 06/15/24 21:13 Completed ECG Request Routine Y 06/15/24 19:20 Stop Req ECG Data Tracing #1: I reviewed this ECG and interpreted as documented below: Normal sinus rhythm with a first-degree AV block with a ventricular rate of 79 bpm. TX interval is [address] changes concerning for ischemia. Normal intervals including normal QTc at 435 ms ECG initial impression date: 06/15/24 ECG initial impression time: 20:06 Medical Decision Narrative: In summary, this patient is a 59-year-old male presenting to the Emergency Department for evaluation of nausea, vomiting, inability to tolerate oral intake. Differential diagnoses considered include but are not limited to alcohol intoxication, alcohol withdrawal, acute on chronic pancreatitis, flareup of chronic and recurrent nausea and vomiting, alcoholic gastritis. Ruling out the most morbid conditions drove assessment. It should be noted patient's history includes alcohol abuse, chronic pancreatitis, seizure disorder which are not at goal therapy with the exception of seizure disorder, which is well-controlled on Keppra. This complicates all aspects of care by increasing patient's risk for morbidity. I reviewed patient's past medical records and noted multiple previous ED evaluations for similar complaint in the past. As well as multiple bouts of prior abdominal imaging with release 16 CT scans of the abdomen noted and there healthcare record since 2019. He was admitted at the end of April with concerns for hyponatremia related to beer potomania and alcohol withdrawal requiring barbiturates On exam, the patient is lying in bed in no acute distress. He is exhibiting no signs of alcohol withdrawal, and he just drank prior to arrival. Vitals are reassuring on cardiac telemetry with no significant tachycardia, hypotension, or other concerns. Abdominal exam is completely benign with no localizable tenderness and no distention. Workup included CBC, CMP, lipase, magnesium, phosphorus, INR, ethanol level. Patient was given thiamine, folate, IV Reglan, Toradol, pantoprazole. CIWA score is 2. On reassessment, the patient is resting in leads had no recurrence of vomiting. He was found to have hypomagnesemia, for which IV replacement was ordered. He had hypokalemia as well. He has significant hyponatremia with a sodium of 117 down from most recent sodium in the 130s. He was recently admitted for this with concern for beer potomania. I am concerned that this is what is happening again. He is agreeable to be admitted and also would like detox from alcohol. Patient was on cardiac telemetry while receiving magnesium replacement here in the emergency department with no significant changes of vitals. I had an interactive discussion with the hospitalist who admitted the patient in stable condition. Critical Care Critical Care Time Critical Care Time: Yes Attestation: On 06/15/24, the high probability of a clinically significant, sudden or life threatening deterioration of the following system(s) required my full and direct attention, intervention and personal management. The time I documented below is in addition to time spent performing reported procedures but includes the following listed in this critical care notation. Total Time Total Critical Care Time: 30
[2024-06-15 19:40] LABS: Ethyl Alcohol 65 mg/dl (0-10); Lipase 100 U/L (23-300)
[2024-06-15 19:41] LABS: Activated Partial Thrombo Time 28.7 seconds (22.5-28.5); INR 0.93 (0.9-1.1); Prothrombin Time 10.3 seconds (9.2-12.1)
[2024-06-15] MEDS: KCl 10mEq/100ml 100 ML 100 MEQ IV (19:53)
[2024-06-15] MEDS: 0.9 % SODIUM CHLORIDE 1000ML 1,000 ML 999 ML IV (19:53)
[2024-06-15] MEDS: MAGNESIUM SULFATE IN WATER 2 GM/50 ML PIGGYBACK IV (19:53)
--- NOTE | 2024-06-15 20:04 | ECG_ITS ---
APPROVED REPORT Exam: Resting ECG HR:79 bpm ECG Measurements Heart Rate 79 AXES NJ 216 P 77 QRSd 94 QRS 80 QT 400 T 81 QTc 435 Conclusion SINUS RHYTHM WITH FIRST DEGREE AV BLOCK Electronically signed by : NICKI ROCA, 06/15/2024 23:00:55
[2024-06-15 20:22] LABS: HIV Combo NEGATIVE (Negative)
[2024-06-15 20:29] LABS: Hepatitis C Ab Qual. W/ RFX NEGATIVE (Negative)
[2024-06-15 21:16] LABS: Appearance,Urine CLEAR (Clear); Bilirubin,Urine Negative (Negative); Blood, Urine Negative (Negative); Color,Urine YELLOW (Yellow); Glucose,Urine (UA) Negative (Negative); Ketones,Urine Negative (Negative); Leukocyte Esterase,Urine Negative (Negative); Microscopic, Urine URINE MICROSCOPIC (MICROSCOPIC); Nitrate,Urine Negative (Negative); Protein,Urine Negative (Negative); Urobilinogen,Urine 0.2 EU/dl (0.2)
[2024-06-15 21:26] VITALS: BP 112/78; PULSE 88; RESP 20; TEMP 36.6; O2SAT 95
[2024-06-15 21:29] LABS: RBC,Urine Occasional #/hpf (0-3); WBC,Urine Occasional #/hpf (0-3)
[2024-06-15 21:30] LABS: Amphetamine/Metha Screen,Urine Negative ng/ml (<1000)
[2024-06-15 21:31] LABS: Barbiturates Screen,Urine Negative ng/ml (<200)
[2024-06-15 21:32] LABS: Benzodiazepines Screen,Urine Negative ng/ml (<200); Cannabinoid Screen,Urine Negative ng/ml (<50)
[2024-06-15 21:33] LABS: Cocaine Screen,Urine Negative ng/ml (<300)
[2024-06-15 21:34] LABS: Methadone Screen,Urine Negative ng/ml (<300); Opiate Screen,Urine Negative ng/ml (<300)
[2024-06-15 21:35] LABS: Phencyclidine Screen,Urine Negative ng/ml (<25)
--- NOTE | 2024-06-15 21:55 | PC.NURSE ---
Patient arrived to floor via stretcher from ED at 21:54.
[2024-06-15 22:00] VITALS: BP 109/71; PULSE 90; RESP 16; TEMP 36.8; O2SAT 95; BMI 21.8
--- NOTE | 2024-06-15 22:04 | P.HP_ITS ---
History of Present Illness *Admission Date: 06/15/24 *Reason for visit:: weakness *History of present illness: [place] [id number] [place] [address] Emergency Department Note Draft Patient: Richard Casarez MR#: [id number] : 1965 Acct:[id number] Patient presents due to weakness after calling EMS. History limited due to active acute alcohol intoxication. History obtained by ER provider as reported below Patient also having concerns for nausea, vomiting, inability to tolerate oral intake. Patient has had multiple visits for this concern over the last several months here in the ED. He states that this episode is similar and feels like a flare of his chronic symptoms. He is coming in requesting his nighttime Ativan, stating that he has alcohol withdrawal seizures and seizures in general if he does not take the Ativan. He states that he is not been able to keep anything down but was able to drink some alcohol just prior to arrival and keep it down. He typically drinks 12 beers a day. His only concern right now is that he wants his Keppra and Ativan. [facility] Disclaimer: The information contained in this section may have been updated after the patient was seen, as this information can be updated by other users. Medical History Piloerection Paresthesias Weakness Nausea, vomiting, and diarrhea Abdominal pain, chronic, epigastric Periumbilical abdominal pain Cough Lung nodule Acute on chronic pancreatitis Acute on chronic pancreatitis Hypochloremia Hearing loss Pancreatic pseudocyst Chronic alcohol abuse Bipolar 1 disorder Seizures Abdominal aneurysm Excessive cerumen in left ear canal SBO (small bowel obstruction) Acute pancreatitis Cachexia Acute on chronic pancreatitis Gastrostomy tube dependent Metastatic non-small cell lung cancer Severe protein-calorie malnutrition Lung cancer metastatic to bone Abdominal pain Pancreatic pseudocyst Abdominal pain Bone marrow disorder Cirrhosis COPD (chronic obstructive pulmonary disease) GERD (gastroesophageal reflux disease) Gastric outlet obstruction History of lung cancer Pancreatic pseudocyst Alcoholic pancreatitis Anxiety History of lung cancer Alcohol abuse Pancreatitis, acute Gallstone pancreatitis Pancreatitis Hypokalemia Surgical History History of local excision of skin lesion History of aortic aneurysm repair History of cholecystectomy Hx of cholecystectomy Family History Other Cancer of lung Emphysema lung Social History Smoking Status: Current every day smoker tobacco type: cigarettes packs per day: 3 alcohol intake: current alcohol intake frequency: a few times a week substance use type: denies use current occupational status: unemployed and disabled Travel in the last 8 weeks: None household members: family housing: house current occupational exposures/hazards: No caffeine: No Have you lived/traveled outside US in past 30 days?: No Contact w/someone who lives/traveled outside US past 30 days?: No Exposure to someone with infectious disease in past 14 days?: No Do you have a fever (greater than 100.4 F or 38 C)?: No Have you tested positive for COVID-19: No Exposed to someone with COVID-19 in past 14 days?: No Do you have a sore throat?: No Do you have a cough?: No Do you have any weakness?: No Do you have any diarrhea?: No Are you experiencing any unusual bleeding?: No Do you have any muscle aches/pain?: No Do you have any abdominal pain?: No Are you experiencing loss of taste or smell?: No Other Medical History Have you received the Flu Vaccine for this season: No Have you received the Pneumonia Vaccine: No Review of Systems Review of Systems Review of systems:: unable to obtain Meds Home Medications and Allergies Home Medications ?Medication ?Instructions ?Recorded ?Confirmed ?Type folic acid 1 mg tablet 1 mg PO DAILY #100 tabs 12/01/23 05/27/24 Rx thiamine HCl (vitamin B1) 100 mg 100 mg PO DAILY #100 tabs 12/01/23 05/27/24 Rx tablet albuterol sulfate 90 mcg/actuation 1 inh inhalation Q4HP PRN 02/12/24 05/27/24 Rx breath activated powder Shortness Of Breath #1 ea inhaler,sensor fluticasone propionate 50 2 spray intranasal BID 04/14/24 05/27/24 History mcg/actuation nasal spray,suspension (Flonase Allergy Relief) tqlhar-[id number]-[id number] 3 cap PO BIDWMEAL 04/14/24 05/27/24 History 36,000-114,000-180,000 unit capsule,delay rel sucralfate 1 gram tablet (Carafate) 1 g PO BID 04/14/24 05/27/24 History levetiracetam 500 mg tablet 500 mg PO BID #60 tabs 04/26/24 05/27/24 Rx lorazepam 2 mg tablet 2 mg PO BIDP PRN Anxiety #60 tabs 04/28/24 05/27/24 Rx ascorbic acid (vitamin C) 250 mg 250 mg PO DAILY #100 tabs 05/07/24 05/27/24 Rx tablet omeprazole 40 mg capsule,delayed 40 mg PO HS #30 caps 05/17/24 05/27/24 Rx release sodium chloride 1,000 mg soluble 1,000 mg PO BIDWMEAL 30 days #60 05/24/24 05/27/24 Rx tablet tabs oxycodone 10 mg tablet 10 mg PO BIDP PRN Moderate Pain 06/11/24 Rx (Scale Score 5-6) #60 tabs New Prescriptions to Start Prescriptions: Allergies Allergy/AdvReac Type Severity Reaction Status Date / Time cephalexin (From Keflex) Allergy Mild Hives Verified 05/27/24 10:07 sulfamethoxazole (From Allergy Unknown Hives Verified 05/27/24 10:07 BACTRIM) trimethoprim (From BACTRIM) Allergy Unknown Hives Verified 05/27/24 10:07 Exam Data for Last 24 hours Vital signs and Labs for Last 24 Hours: Temp Pulse Resp BP Pulse Ox O2 Del Method 98.3 F 90 16 109/71 L 95 Room Air 06/15/24 22:00 06/15/24 22:00 06/15/24 22:00 06/15/24 22:00 06/15/24 22:00 06/15/24 22:00 Laboratory Results - last 24 hr 06/15/24 19:12: WBC 4.3 L, RBC 3.60 L, Hgb 11.7 L, Hct 31.5 L, MCV 87.5, MCH 32 .5 H, MCHC 37.1 H, RDW 12.0, Plt Count 164, MPV 9.6, Neut % (Auto) 66.9, Lymph % (Auto) 15.4, [place] % (Auto) 13.3 H, Eos % (Auto) 3.5, Baso % (Auto) 0.7, Neut # (Auto) 2.9, Lymph # (Auto) 0.7, [place] # (Auto) 0.6, Eos # (Auto) 0.2, Baso # (Auto) 0.0, PT 10.3, INR 0.93, APTT 28.7 H, Sodium 117 L, Potassium 3.3 L, Chloride 79 L, Carbon Dioxide 29, Anion Gap 12.3, BUN 4 L, Creatinine 0.50 L, Estimated Creat Clear 138, Estimated GFR 170, Est GFR ( Amer) 206, Glucose 121 H, Calcium 8.5, Phosphorus 2.7, Magnesium 1.5 L, Total Bilirubin 0.4, AST 37, ALT 18, Alkaline Phosphatase 87, Total Protein 6.8, Albumin 4.4, Globulin 2.4, Albumin/Globulin Ratio 1.8, Lipase 100, Plasma/Serum Alcohol 65 H, HCV Ab SHELDON w/Rflx PCR Qn Negative, HIV Ag/Ab Combo Qual Negative 06/15/24 21:02: Urine Opiates Screen Negative, Urine Methadone Screen Negative, Ur Barbituates Screen Negative, Ur Phencyclidine Scrn Negative, Ur Amphetamines Screen Negative, U Benzodiazepines Scrn Negative, Urine Cocaine Screen Negative, U Marijuana (THC) Screen Negative 06/15/24 21:13: Urine Color Yellow, Urine Appearance Clear, Urine pH 7.0, Ur Specific [place] 1.010, Urine Protein Negative, Urine Glucose (UA) Negative, Urine Ketones Negative, Urine Blood Negative, Urine Nitrate Negative, Urine Bilirubin Negative, Urine Urobilinogen 0.2, Ur Leukocyte Esterase Negative, Urine RBC Occasional, Urine WBC Occasional, Ur Squamous Epith Cells 3-5 I & O for Last 24 hours: Intake & Output 06/12/24 06/13/24 06/14/24 06/15/24 23:59 23:59 23:59 23:59 Output Total 800 / 800 Balance -800 / -800 Weight 65.272 kg Constitutional Constitutional: no acute distress and disheveled Comments: Acutely intoxicated *Routine HEENT Exam Head: Present normocephalic Eye: Present EOMI ENT: Present mucous membranes moist *Routine Neck Exam Neck: Present supple and full ROM; Absent JVD *Routine Respiratory Exam Respiratory: Present CTA bilaterally; Absent diminished air movement *Routine Cardiovascular Exam Cardiovascular: Present RRR, Normal S1 and Normal S2 *Routine Abdominal Exam Abdominal: Present soft *Routine Rectal Exam Rectal:: deferred *Routine Genitalia Exam Genitalia:: deferred *Routine Extremities Exam Extremities: Absent cyanosis, clubbing or edema *Routine Skin Exam Skin: Present intact; Absent cyanosis *Routine Neurological Exam Neurological: Present alert, oriented X3 and CN II-XII intact Comments: Acutely intoxicated Assessment and Plan *Assessment and plan (1) Alcohol intoxication: Status: Acute Category: Medical Code(s): F10.929 - Alcohol use, unspecified with intoxication, unspecified (2) Hyponatremia: Status: Acute Category: Medical Code(s): E87.1 - Hypo-osmolality and hyponatremia (3) Substance use disorder: Status: Acute Category: Medical Code(s): F19.90 - Other psychoactive substance use, unspecified, uncomplicated (4) Pancreatic pseudocyst: Status: Acute Category: Medical Code(s): K86.3 - Pseudocyst of pancreas Plan 59-year-old active severe alcoholism with frequent admissions presenting with weakness and multiple electrolyte abnormalities including severe hyponatremia. Normal mentation other than active alcohol intoxication. Likely a chronic process received fluids in the ER will monitor sodium and hold fluids for now to prevent overcorrection. Concern for alcohol withdrawal, continue CIWA protocol Hyponatremia, severe, chronic - No osm studies at this facility however clinical history likely consistent with chronic induced hyponatremia - Received fluids in ER, will hold further IV fluids to prevent rapid overcorrection -Sodium check every 6 hours -Target rate 4 to 6 mmol over 24 hours maximum of 8 mmol over 24 hours Acute alcohol intoxication High risk for alcohol withdrawal -CIND protocol -Home Keppra -As needed Ativan -Vitamin supplementation -Advised and counseled on alcohol cessation Anemia -Likely nutritional -Can consider iron studies Hypomagnesemia -Replete DVT prophylaxis-Lovenox Resume home meds once verified per pharmacy
[2024-06-15] MEDS: levETIRAcetam 100 MG/ML SOLUTION 500 MG PO (22:34)
[2024-06-15] MEDS: LORazepam 1MG TABLET 1 MG PO (22:34)
[2024-06-15 22:53] LABS: Chloride 83 mmol/L (98-107)
[2024-06-15 22:54] LABS: Potassium 3.9 mmoL/L (3.5-5.1); Sodium 118 mmol/L (136-145)
[2024-06-15 22:57] LABS: Anion Gap 12.9 mEq/L (5-15); Blood Urea Nitrogen 3 mg/dl (9-20); Calcium 8.3 mg/dl (8.4-10.2); Carbon Dioxide 26 mmol/L (22.0-30.0); Creatinine Clearance Estimated 147 mL/min (50-200); Estimated Glomerular Filt Rate 170 ml/min (>60); GFR (African American) 206 ML/MIN (>60); Glucose 148 mg/dl (74-100)
[2024-06-15 23:03] LABS: Activated Partial Thrombo Time 28.8 seconds (22.5-28.5); INR 0.94 (0.9-1.1); Prothrombin Time 10.4 seconds (9.2-12.1)
[2024-06-15 23:06] LABS: Phosphorous 2.6 mg/dl (2.5-4.5)
[2024-06-15] MEDS: NICOTINE 21MG/24HR PATCH 21 MG TD (23:07)
[2024-06-16] VITALS (7 sets, daily range): BP systolic 100–130; BP diastolic 63–70; PULSE 80–88; RESP 16–18; TEMP 36.4–36.9; O2SAT 95–100; BMI 21.8
[2024-06-16] MEDS: LORazepam 1MG TABLET 1 MG PO ×2 (04:31→10:16)
--- NOTE | 2024-06-16 06:15 | CA_ITS ---
APPROVED REPORT EXAM: Comprehensive 2D, Doppler, and color-flow Echocardiogram Tax Compliance Officer: DAMEON Murray, RVS Ht: 5 ft 8 in Wt: 143lbs BSA: 1.77 BP: 109/71 mmHg Indications: Nausea/vomiting with ETOH withdrawl, Abn EKG, COPD 2D Dimensions IVSd 0.85 cm M: 0.6-1.2 LVEF (Visual) 55.60 % PWd 0.78 cm M: 0.6 - 1.2 LA Volume 26.30 mL LVDd 4.32 cm M: 4.2 - 5.9 LA Volume Index 14.86 mL/m2 (M/F) 16-34 LVDs 3.08 cm M: 2.5 - 4.0 Left Atrium 2.92 cm M: 3.0 - 4.0 M-Mode Dimensions LA Diam 3.19 cm (1.9-4.0) LVDd 4.16 cm (3.5-5.7) LVDs 3.03 cm (3.5-5.7) EF (Teich) 53.30% EPSs 0.33 cm FS 27.20% EDV (Teich) 76.80 mL TAPSE 2.10 (<1.7) ESV (Teich) 35.90 mL LV Diastology E Decel Time 170 (160-240 msec) E/A Ratio 0.80 MED A' 9.40 cm/s LAT A' 8.90 cm/s Aortic Valve REZA Index 1.40 cm2/m2 AoV Peak Yandel. 165.0 (50-130 cm/s) AI PHT 430.00 ms AO Peak GR. 10.80 mmHg AO Mean GR. 5.40 (<5 mmHg) AO VTI 31.3 (18-25 cm) REZA (VTI) 2.54 (2.5-4.5 cm2) Mitral Valve MV A Velocity 89.0 (40-130 cm/s) E/A Ratio 0.80 Tricuspid Valve TR P. Velocity 169.00 cm/s RAP Estimate 10.00 mmHg RVSP 21.40 mmHg Left Ventricle The left ventricle is normal size. The left ventricular systolic function is normal. The left ventricular ejection fraction is within the normal range. There is increased LV wall thickness. There is normal LV segmental wall motion. Transmitral Doppler flow pattern suggests impaired LV relaxation. LVEF is 55%. Right Ventricle The right ventricle is normal size. The right ventricular systolic function is normal. Atria The left atrium size is normal. The right atrium size is normal. There is no Doppler evidence of interatrial shunt. Aortic Valve The aortic valve is mildly thickened. There is no aortic valvular stenosis. Moderate aortic regurgitation. Mitral Valve The mitral valve is normal in structure. No evidence of mitral valve stenosis. Trace mitral regurgitation. Tricuspid Valve Tricuspid valve is grossly normal in structure and function. Trace tricuspid regurgitation. There is insufficient TR jet to estimate RVSP. Pulmonic Valve The pulmonary valve is normal in structure. Trace pulmonic regurgitation. Great Vessels The aortic root is normal in size. The ascending aorta is not well-visualized. IVC is normal in size and collapses >50% with inspiration. Pericardium There is no pericardial effusion. Other Information Study Quality: Fair Conclusion Normal biventricular size and systolic function. Moderate AI. In the setting of moderate AI, evaluation with outpatient cardiac MRI (cardiomyopathy protocol and aortic valve view) is suggested to further quantify LV volumes and severity of AI. Electronically signed by : Mona Najera MD 06/16/2024 13:05:16
[2024-06-16 06:57] LABS: POC Glucose,Bedside 129 (70-110)
[2024-06-16 07:16] LABS: Basophils % 0.7 % (0.1-2.0); Eosinophils # 0.2 K/mm3 (0.0-0.4); Eosinophils % 4.2 % (0.1-12.0); Hematocrit 34.6 % (42.0-52.0); Hemoglobin 12.6 g/dL (14.1-18.0); Lymphocytes # 0.7 K/mm3 (0.7-4.5); Lymphocytes % 14.4 % (10-50); Mean Corpuscular HGB Conc 36.4 g/dL (31.8-35.4); Mean Corpuscular Hemoglobin 31.9 pg (27.0-31.2); Mean Corpuscular Volume 87.6 fl (80-94); Mean Platelet Volume 9.9 fl (7.4-10.4); Monocytes # 0.7 K/mm3 (0.1-1.0); Monocytes % 14.9 % (1.7-9.3); Neutrophils % 65.6 % (37.0-80.0); Platelet Count 149 K/mm3 (142-424); Red Blood Count 3.95 M/mm3 (4.60-6.20); White Blood Count 4.6 K/mm3 (4.8-10.8)
--- NOTE | 2024-06-16 07:28 | HMH.PHAINT1 ---
Pharmacy Intervention Comments: MEDICATION RECONCILIATION COMPLETED ON PATIENT USING EXTERNAL FILL HISTORY FROM PHARMACY, LIST FROM PCP OFFICE, AND DISCHARGE SUMMARY FROM PREVIOUS ADMISSION. -YESIKA SMITH, PHARMD
[2024-06-16 07:54] LABS: Alanine Aminotransferase 17 U/L (12-78); Albumin Level 3.9 g/dl (3.5-5.0); Albumin/Globulin Ratio 1.7 (1.1-1.8); Alkaline Phosphatase 93 U/L (38-126); Anion Gap 9.7 mEq/L (5-15); Aspartate Amino Transferase 38 U/L (17-59); Bilirubin,Total 0.6 mg/dl (0.2-1.3); Blood Urea Nitrogen 5 mg/dl (9-20); Calcium 8.6 mg/dl (8.4-10.2); Carbon Dioxide 28 mmol/L (22.0-30.0); Chloride 90 mmol/L (98-107); Creatinine Clearance Estimated 122 mL/min (50-200); Estimated Glomerular Filt Rate 138 ml/min (>60); GFR (African American) 167 ML/MIN (>60); Globulin 2.3 g/dL (1.3-3.2); Glucose 102 mg/dl (74-100); Phosphorous 2.9 mg/dl (2.5-4.5); Potassium 3.7 mmoL/L (3.5-5.1); Sodium 124 mmol/L (136-145); Total Protein,Serum 6.2 g/dl (6.3-8.2)
[2024-06-16] MEDS: levETIRAcetam 100 MG/ML SOLUTION 500 MG PO ×2 (08:13→20:19)
[2024-06-16] MEDS: SODIUM CHLORIDE 3 % 150 ML 30 ML IV (08:13)
[2024-06-16] MEDS: MAGNESIUM OXIDE 400MG TABLET 800 MG PO (08:13)
[2024-06-16] MEDS: ENOXAPARIN 40MG/0.4ML SYRINGE 40 MG SUBCUT (08:13)
[2024-06-16] MEDS: THIAMINE 100MG TABLET 100 MG PO (09:55)
[2024-06-16] MEDS: FOLIC ACID 1MG TABLET 1 MG PO (09:55)
--- NOTE | 2024-06-16 10:28 | SW/DCPLANNER ---
Addendum entered by [facility] 06/17/24 11:17: Patient stated that he prefer to return home at time of discharge. Patient expressed that he does not feel ready to go to [email or web address] at this time. Patient did contact [email or web address] to cancel admission. I will continue to follow up w/ patient. Patient stated he does plan to sign out AMA once his sister arrives to pick him up today. After discussion w/ MD patient is agreeable to wait till Ortho is able to see him before discharging. Addendum entered by [facility] 06/17/24 09:00: Patient is agreeable to [email or web address] in [facility]. [email or web address] confirmed they can transport patient once medically stable for discharge. Ortho has been consulted and once they follow up and patient is discharged I will follow up w/ [email or web address] for transportation. Per MD patient is medically stable for discharge today. Addendum entered by [facility] 06/17/24 08:13: Patient has been accepted to [email or web address] in [facility]. I will update patient and MD. Addendum entered by [facility] 06/16/24 14:12: Per Admission Coordinator w/ [email or web address]: [place] and [place] facilities are willing to accept. They are currently waiting to hear back from [facility] facilities. Addendum entered by [facility] 06/16/24 11:21: Patient information has been faxed to Josseline w/ [email or web address]. Josseline stated that she would reach out to patient this AM to do admissions assessment. Josseline- [phone] Fax #: [phone] Original Note: I spoke w/ this patient regarding plans once medically stable for discharge. Patient expressed an interest in inpatient rehab at [email or web address] in [place]. Patient did give me permission to reach out to [email or web address] regarding bed availability. I will reach out this AM.
[2024-06-16 13:42] LABS: Chloride 92 mmol/L (98-107); Potassium 4.2 mmoL/L (3.5-5.1); Sodium 128 mmol/L (136-145)
[2024-06-16 13:45] LABS: Anion Gap 10.2 mEq/L (5-15); Blood Urea Nitrogen 6 mg/dl (9-20); Carbon Dioxide 30 mmol/L (22.0-30.0); Creatinine Clearance Estimated 105 mL/min (50-200); Estimated Glomerular Filt Rate 115 ml/min (>60); GFR (African American) 140 ML/MIN (>60); Glucose 139 mg/dl (74-100)
[2024-06-16] MEDS: LORazepam 2MG/ML VIAL 2 MG IV (14:48)
[2024-06-16] MEDS: DEXTROSE 5 % IN WATER 500 ML 125 ML IV (14:48)
[2024-06-16] MEDS: SODIUM CHLORIDE 0.9% 10ML FLUSH SYRINGE 10 ML IV (14:50)
[2024-06-16] MEDS: OXYCODONE 5MG IMMEDIATE RELEASE TABLET 10 MG PO (15:04)
--- NOTE | 2024-06-16 15:20 | PEERSUPPORT ---
Peer Support Note Patient Information Patient Information: DOS: 06/15/2024 ? Reason: ETOH ? Ps visited pt at bedside in ED. ? Pt is able to identify ps by name then quickly stated he is interested in going to [facility] in [place], [place]. ? ETOH Last Ingested: Before ambulance picked him up around ?8:00 pm on 06/15/2024. ? ETOH HX: He says he has not been eating or drinking anything other than liquor or beer for weeks now. ? Pt is actively intoxicated, says he needs to rest. ? ? Ps assured him of supportive and compassionate care by [facility], encouraging rest. ? Pt says he is sensitive to light and cold at the moment. ? Ps provided blanket and lights off for patient to rest. ? Pt agrees to follow ups with ps.
--- NOTE | 2024-06-16 15:32 | PEERSUPPORT ---
Peer Support Note Patient Information Patient Information: DOS: 06/16/2024 ? Reason: ETOH ? Building rapport: -Pt stated he just cant seem to stop drinking, he is scared of withdrawals and seizures from alcohol and medication. -Pt has been living at home alone, with no accountability. He says he has been through withdrawal before but dreads it every time. -Pt has been taking his medications from primary care doctor, oxycodone and ativan for a long time. -Pt becomes very emotional when sharing that withdrawal is hard and scary. ? Ps provides empathetic listening without judgement. Ps shares of personal and relevant outcomes through recovery that begin with detox into the process of recovery then ongoing. ? Support System: Sister : friend ? Current Stressors: Withdrawal symptoms: freezing, headache, seeing spots on wall, feeling like he is smothering, feeling clamy. Fear of having seizures No appetite Urges to leave hospital: was able to distract once already today, nurse gave comfort meds. ? ? Motivation for Change: -Pt stated he completed an intake assessment with [facility] now waiting on his approval as well as a date to report to inpatient treatment. ? Ps encourages patient to transport straight to [facility] bringing awareness of safety of preventing relapse or distractions. ? -Pt stated he wanted to case picker clothes from his house and drive his vehicle to treatment. ?Ps is able to bring understanding by confronting the reality of his thoughts and plan with ability to refrain from relapse. -Pt is tearful when saying thank you Xin for caring. ? Potential Barriers: -Call for a ride to leave AMA -Refuses to go to treatment -Desire to go home to get his clothes for inpatient treatment ? Harm Reduction: -Withdrawal Management: ETOH safely and secure medically monitored at [facility] with support -Continue to provide support -Patient to make choices to commit to a recovery plan. ?-Discuss openly the process of inpatient and expectations; Pt has a friend who completed program at [facility] that gives him hope. ? Recovery Plan: ?-[facility] has accepted patient -Pt is wanting Dr. Hdz to remove cast if possible, or check his arm prior to reporting to [facility]. Missed follow up appointment on 06/15/2024. -Transportation details to be discussed with [facility] -Self-care- shower, shave, nails -Discuss a plan to have bank card brought to the hospital by sisters or transportation operations manager to accommodate. -Ps will follow up with patient next day.
[2024-06-16] MEDS: LIPASE/PROTEASE/AMYLASE 1 EACH CAPSULE.DR 3 EACH PO (16:48)
[2024-06-16] MEDS: MULTIVITAMIN TABLET 1 EACH PO (16:48)
[2024-06-16 16:58] LABS: POC Glucose,Bedside 161 (70-110)
--- NOTE | 2024-06-16 17:05 | PC.NURSE ---
pt sitting up in bed eating dinner. seizure precautions in place and bed alarm on. pt has had varying CIWA scores throughout the shift and are as follows: 0800-5,1000-10,1400-25,1500-13,1600-1,1700-1. CIWA scores are q4 at the moment based on the 1700 score of 1. pt was treated with ativan per jul for symptoms. this morning pt stated that he wished to leave ama, but upon discussing goals of care and current condition, pt was agreeable to continue treatment inpatient. spoke to pt sister regarding home medications. pt home oxycodone reordered BID. pt is very apprehensive about the possibility of seizures. peer support saw pt today. pt would like to go to an inpatient rehab. case management is working on this. sodium levels have increased this shift. pt denies any pain at the moment. states that he feels much better . no needs at this time. call light within reach.
--- NOTE | 2024-06-16 17:33 | EXP.PN ---
Subjective *Date: 06/16/24 *Time: 17:33 Interval history: Pleasant and conversational, open to inpatient detox. Accepted to [facility] inpatient detox. Anticipate discharge in the morning once sodium improves. Exam Data for Last 24 hours Vital signs and Labs for Last 24 Hours: Temp Pulse Resp BP Pulse Ox O2 Del Method 98.5 F 85 16 112/67 97 Room Air 06/16/24 16:00 06/16/24 16:00 06/16/24 16:00 06/16/24 16:00 06/16/24 16:00 06/16/24 16:54 Laboratory Results - last 24 hr 06/15/24 19:12: WBC 4.3 L, RBC 3.60 L, Hgb 11.7 L, Hct 31.5 L, MCV 87.5, MCH 32.5 H, MCHC 37.1 H, RDW 12.0, Plt Count 164, MPV 9.6, Neut % (Auto) 66.9, Lymph % (Auto) 15.4, [place] % (Auto) 13.3 H, Eos % (Auto) 3.5, Baso % (Auto) 0.7, Neut # (Auto) 2.9, Lymph # (Auto) 0.7, [place] # (Auto) 0.6, Eos # (Auto) 0.2, Baso # (Auto) 0.0, PT 10.3, INR 0.93, APTT 28.7 H, Sodium 117 L, Potassium 3.3 L, Chloride 79 L, Carbon Dioxide 29, Anion Gap 12.3, BUN 4 L, Creatinine 0.50 L, Estimated Creat Clear 138, Estimated GFR 170, Est GFR ( Amer) 206, Glucose 121 H, Calcium 8.5, Phosphorus 2.7, Magnesium 1.5 L, Total Bilirubin 0.4, AST 37, ALT 18, Alkaline Phosphatase 87, Total Protein 6.8, Albumin 4.4, Globulin 2.4, Albumin/Globulin Ratio 1.8, Lipase 100, Plasma/Serum Alcohol 65 H, HCV Ab SHELDON w/Rflx PCR Qn Negative, HIV Ag/Ab Combo Qual Negative 06/15/24 21:02: Urine Opiates Screen Negative, Urine Methadone Screen Negative, Ur Barbituates Screen Negative, Ur Phencyclidine Scrn Negative, Ur Amphetamines Screen Negative, U Benzodiazepines Scrn Negative, Urine Cocaine Screen Negative, U Marijuana (THC) Screen Negative 06/15/24 21:13: Urine Color Yellow, Urine Appearance Clear, Urine pH 7.0, Ur Specific Virgie 1.010, Urine Protein Negative, Urine Glucose (UA) Negative, Urine Ketones Negative, Urine Blood Negative, Urine Nitrate Negative, Urine Bilirubin Negative, Urine Urobilinogen 0.2, Ur Leukocyte Esterase Negative, Urine RBC Occasional, Urine WBC Occasional, Ur Squamous Epith Cells 3-5 06/15/24 22:37: PT 10.4, INR 0.94, APTT 28.8 H, Sodium 118 L, Potassium 3.9, Chloride 83 L, Carbon Dioxide 26, Anion Gap 12.9, BUN 3 L, Creatinine 0.50 L, Estimated Creat Clear 147, Estimated GFR 170, Est GFR ( Amer) 206, Glucose 148 H D, Calcium 8.3 L, Phosphorus 2.6, Magnesium 2.0 D 06/16/24 06:46: WBC 4.6 L, RBC 3.95 L, Hgb 12.6 L, Hct 34.6 L, MCV 87.6, MCH 31.9 H, MCHC 36.4 H, RDW 12.0, Plt Count 149, MPV 9.9, Neut % (Auto) 65.6, Lymph % (Auto) 14.4, [place] % (Auto) 14.9 H, Eos % (Auto) 4.2, Baso % (Auto) 0.7, Neut # (Auto) 3.0, Lymph # (Auto) 0.7, [place] # (Auto) 0.7, Eos # (Auto) 0.2, Baso # (Auto) 0.0, Sodium 124 L, Potassium 3.7, Chloride 90 L, Carbon Dioxide 28, Anion Gap 9.7, BUN 5 L D, Creatinine 0.60 L, Estimated Creat Clear 122, Estimated GFR 138, Est GFR ( Amer) 167, Glucose 102 H D, Calcium 8.6, Phosphorus 2.9, Magnesium 2.0, Total Bilirubin 0.6, AST 38, ALT 17, Alkaline Phosphatase 93, Total Protein 6.2 L, Albumin 3.9 D, Globulin 2.3, Albumin/Globulin Ratio 1.7 06/16/24 06:50: POC Glucose 129 H 06/16/24 13:27: Sodium 128 L, Potassium 4.2, Chloride 92 L, Carbon Dioxide 30, Anion Gap 10.2, BUN 6 L, Creatinine 0.70, Estimated Creat Clear 105, Estimated GFR 115, Est GFR ( Amer) 140, Glucose 139 H D, Calcium 9.0 06/16/24 16:47: POC Glucose 161 H I & O for Last 24 hours: Intake & Output 06/13/24 06/14/24 06/15/24 06/16/24 23:59 23:59 23:59 23:59 Intake Total 390 / 390 Output Total 800 / 1300 3350 / 3350 Balance -800 / -1150 -2960 / -2960 Weight 65.272 kg 65.27 kg Assessment and Plan *Assessment and plan (1) Hyponatremia: Status: Acute Category: Medical Code(s): E87.1 - Hypo-osmolality and hyponatremia Plan Nelson Casarez is a 59-year-old male with a medical history significant for alcohol use disorder, seizure disorder associated with AUD, chronic pancreatitis with pancreatic pseudocyst, COPD on room air, metastatic non-small cell lung cancer to spine s/p radiation and chemotherapy presented with vomiting and admitted for symptomatic hyponatremia, beer potomania. Has had multiple admissions for similar presentation. #Symptomatic hyponatremia #Suspected beer potomania ? Patient has a longstanding history of alcohol use disorder, has been drinking a lot more over the past weeks. Mother earlier last year. Has been admitted several times over the past few months for similar presentations. ? Initial serum alcohol level 65, sodium 117. ? Given 1 L bolus in the ED and along with hypertonic saline sodium slightly overcorrected to 128. ? IV D5W at 125 mL/h until 6 PM. Recheck BMP at that time. ? Admitted for similar presentation in April. Responded well to fluid restriction, will restrict 1200ml a day. ? Max sodium correction 6-8 mEq/day. #Alcohol use disorder #Alcohol withdrawal #History of seizures ? Patient is interested in patient detox. Peers support consulted, reached out to [facility] who has accepted patient for inpatient detox. Anticipate discharge in the morning once patient is more stable. ? CIWA protocol. Ativan as needed. Multivitamins. ? Resumed home Keppra 500 mg twice daily. ? Will avoid naltrexone given concomitant oxycodone for chronic pancreatitis. #Chronic pancreatitis with pseudocyst ? Restarted home Creon and oxycodone. #COPD ? Stable. On room air Full code DVT prophylaxis: Lovenox 40 mg
[2024-06-16 18:23] LABS: Chloride 94 mmol/L (98-107); Potassium 4.1 mmoL/L (3.5-5.1); Sodium 126 mmol/L (136-145)
[2024-06-16 18:26] LABS: Anion Gap 9.1 mEq/L (5-15); Blood Urea Nitrogen 8 mg/dl (9-20); Carbon Dioxide 27 mmol/L (22.0-30.0); Creatinine Clearance Estimated 122 mL/min (50-200); Estimated Glomerular Filt Rate 138 ml/min (>60); GFR (African American) 167 ML/MIN (>60)
[2024-06-16 18:27] LABS: Calcium 8.7 mg/dl (8.4-10.2); Glucose 185 mg/dl (74-100)
[2024-06-16] MEDS: PANTOPRAZOLE 40MG TABLET 40 MG PO (20:19)
[2024-06-16] MEDS: FLUTICASONE PROP 50MCG NASAL SPRAY 16GM 2 SPRAY NS (20:19)
[2024-06-16] MEDS: NICOTINE 21MG/24HR PATCH 21 MG TD (20:19)
[2024-06-16] MEDS: LORazepam 1MG TABLET 2 MG PO (20:19)
[2024-06-17 04:00] VITALS: BP 93/53; PULSE 82; RESP 16; TEMP 37.3; O2SAT 98; BMI 21.5
[2024-06-17] MEDS: OXYCODONE 5MG IMMEDIATE RELEASE TABLET 10 MG PO (04:29)
--- NOTE | 2024-06-17 06:16 | PC.NURSE ---
Alert and oriented. CIWA Q4 per chart. Continent, urinal and toilet. Patient requested medications for anxiety, treated per mar. Call light in reach. Bed alarm on.
[2024-06-17 06:29] VITALS: BP 102/72
[2024-06-17] MEDS: LIPASE/PROTEASE/AMYLASE 1 EACH CAPSULE.DR 3 EACH PO (06:30)
[2024-06-17 06:34] LABS: Basophils % 0.9 % (0.1-2.0); Eosinophils # 0.2 K/mm3 (0.0-0.4); Eosinophils % 4.3 % (0.1-12.0); Hematocrit 31.2 % (42.0-52.0); Lymphocytes # 0.8 K/mm3 (0.7-4.5); Lymphocytes % 23.3 % (10-50); Mean Corpuscular HGB Conc 35.3 g/dL (31.8-35.4); Mean Corpuscular Hemoglobin 31.5 pg (27.0-31.2); Mean Corpuscular Volume 89.4 fl (80-94); Mean Platelet Volume 10.6 fl (7.4-10.4); Monocytes # 0.5 K/mm3 (0.1-1.0); Monocytes % 15.3 % (1.7-9.3); Neutrophils % 55.6 % (37.0-80.0); Platelet Count 134 K/mm3 (142-424); Red Blood Count 3.49 M/mm3 (4.60-6.20); Red Cell Distribution Width 12.5 % (11.5-17.5); White Blood Count 3.5 K/mm3 (4.8-10.8)
[2024-06-17 06:38] LABS: POC Glucose,Bedside 110 (70-110)
[2024-06-17 06:51] LABS: Alanine Aminotransferase 15 U/L (12-78); Albumin Level 3.6 g/dl (3.5-5.0); Albumin/Globulin Ratio 1.6 (1.1-1.8); Alkaline Phosphatase 80 U/L (38-126); Anion Gap 9.8 mEq/L (5-15); Aspartate Amino Transferase 27 U/L (17-59); Bilirubin,Total 0.3 mg/dl (0.2-1.3); Blood Urea Nitrogen 9 mg/dl (9-20); Calcium 8.8 mg/dl (8.4-10.2); Carbon Dioxide 25 mmol/L (22.0-30.0); Chloride 99 mmol/L (98-107); Creatinine Clearance Estimated 104 mL/min (50-200); Estimated Glomerular Filt Rate 115 ml/min (>60); GFR (African American) 140 ML/MIN (>60); Globulin 2.3 g/dL (1.3-3.2); Glucose 105 mg/dl (74-100); Potassium 3.8 mmoL/L (3.5-5.1); Sodium 130 mmol/L (136-145); Total Protein,Serum 5.9 g/dl (6.3-8.2)
[2024-06-17 07:08] LABS: Hemoglobin 10.9 g/dL (14.1-18.0)
[2024-06-17 07:38] VITALS: BP 110/68; PULSE 89; RESP 18; TEMP 36.4; O2SAT 100
[2024-06-17 07:46] LABS: Magnesium 1.9 mg/dl (1.6-2.3)
[2024-06-17] MEDS: FOLIC ACID 1MG TABLET 1 MG PO (08:05)
[2024-06-17] MEDS: levETIRAcetam 100 MG/ML SOLUTION 500 MG PO (08:05)
[2024-06-17] MEDS: LORazepam 1MG TABLET 2 MG PO (08:05)
[2024-06-17] MEDS: MAGNESIUM OXIDE 400MG TABLET 800 MG PO (08:05)
[2024-06-17] MEDS: THIAMINE 100MG TABLET 100 MG PO (08:05)
[2024-06-17] MEDS: FLUTICASONE PROP 50MCG NASAL SPRAY 16GM 2 SPRAY NS (08:05)
[2024-06-17] MEDS: ENOXAPARIN 40MG/0.4ML SYRINGE 40 MG SUBCUT (08:05)
--- NOTE | 2024-06-17 08:35 | XR_ITS ---
FINAL REPORT CLINICAL HISTORY: cast removal COMPARISON: None FINDINGS: LEFT ELBOW 3 views of the left elbow were obtained. There is an overlying cast obscuring bony detail. There is a transverse fracture through the base of the olecranon with mild bridging callus formation; however, the fracture line remains visible. There is no acute soft tissue abnormality. IMPRESSION: Transverse fracture through the base of olecranon with mild bridging callus formation; however, fracture line remains visible. Reviewed, Interpreted and Dictated by Glenn Jones MD Transcribed by Karen Avila Authenticated and [facility]
[2024-06-17] MEDS: LORazepam 1MG TABLET 1 MG PO (10:52)
[2024-06-17] MEDS: POLYETHYLENE GLYCOL 3350 17 GM PACKET PO (10:53)
[2024-06-17 11:59] VITALS: BP 117/71; PULSE 91; RESP 18; TEMP 36.6; O2SAT 98
--- NOTE | 2024-06-17 12:00 | P.CONS_ITS ---
History of Present Illness *Admission Date: 06/15/24 *Reason for visit:: Left elbow olecranon fracture *History of present illness: 59-year-old male known to me from outpatient visit for olecranon fracture he was placed in a long-arm cast couple weeks ago. He has been in the long-arm cast admitted to hospital severe hyponatremia alcohol intoxication and missed appointment 2 days ago in the orthopedic clinic at that time he was scheduled for cast removal and repeat x-ray. Repeat x-ray performed today Ortho consult for treatment options in regards left elbow.. [facility] Disclaimer: The information contained in this section may have been updated after the patient was seen, as this information can be updated by other users. Medical History Piloerection Paresthesias Weakness Nausea, vomiting, and diarrhea Abdominal pain, chronic, epigastric Periumbilical abdominal pain Cough Lung nodule Acute on chronic pancreatitis Acute on chronic pancreatitis Hypochloremia Hearing loss Pancreatic pseudocyst Chronic alcohol abuse Bipolar 1 disorder Seizures Abdominal aneurysm Excessive cerumen in left ear canal SBO (small bowel obstruction) Acute pancreatitis Cachexia Acute on chronic pancreatitis Gastrostomy tube dependent Metastatic non-small cell lung cancer Severe protein-calorie malnutrition Lung cancer metastatic to bone Abdominal pain Pancreatic pseudocyst Abdominal pain Bone marrow disorder Cirrhosis COPD (chronic obstructive pulmonary disease) GERD (gastroesophageal reflux disease) Gastric outlet obstruction History of lung cancer Pancreatic pseudocyst Alcoholic pancreatitis Anxiety History of lung cancer Alcohol abuse Pancreatitis, acute Gallstone pancreatitis Pancreatitis Hypokalemia Surgical History History of local excision of skin lesion History of aortic aneurysm repair History of cholecystectomy Hx of cholecystectomy Family History Other Cancer of lung Emphysema lung Social History Smoking Status: Current every day smoker tobacco type: cigarettes packs per day: 3 alcohol intake: current alcohol intake frequency: a few times a week substance use type: denies use current occupational status: unemployed and disabled Travel in the last 8 weeks: None household members: family housing: house current occupational exposures/hazards: No caffeine: No Have you lived/traveled outside [place] in past 30 days?: No Contact w/someone who lives/traveled outside [place] past 30 days?: No Exposure to someone with infectious disease in past 14 days?: No Do you have a fever (greater than 100.4 F or 38 C)?: No Have you tested positive for COVID-19: No Exposed to someone with COVID-19 in past 14 days?: No Do you have a sore throat?: No Do you have a cough?: No Do you have any weakness?: No Do you have any diarrhea?: No Are you experiencing any unusual bleeding?: No Do you have any muscle aches/pain?: No Do you have any abdominal pain?: No Are you experiencing loss of taste or smell?: No Meds Home Medications and Allergies Home Medications ?Medication ?Instructions ?Recorded ?Confirmed ?Type folic acid 1 mg tablet 1 mg PO DAILY #100 tabs 12/01/23 06/16/24 Rx thiamine HCl (vitamin B1) 100 mg 100 mg PO DAILY #100 tabs 12/01/23 06/16/24 Rx tablet albuterol sulfate 90 mcg/actuation 1 inh inhalation Q4HP PRN 02/12/24 06/16/24 Rx breath activated powder Shortness Of Breath #1 ea inhaler,sensor fluticasone propionate 50 2 spray intranasal BID 04/14/24 06/16/24 History mcg/actuation nasal spray,suspension (Flonase Allergy Relief) [id number] 3 cap PO BIDWMEAL 04/14/24 06/16/24 History 36,000-114,000-180,000 unit capsule,delay rel sucralfate 1 gram tablet (Carafate) 1 g PO BID 04/14/24 06/16/24 History levetiracetam 500 mg tablet 500 mg PO BID #60 tabs 04/26/24 06/16/24 Rx lorazepam 2 mg tablet 2 mg PO BIDP PRN Anxiety #60 tabs 04/28/24 06/16/24 Rx ascorbic acid (vitamin C) 250 mg 250 mg PO DAILY #100 tabs 05/07/24 06/16/24 Rx tablet omeprazole 40 mg capsule,delayed 40 mg PO HS #30 caps 05/17/24 06/16/24 Rx release sodium chloride 1,000 mg soluble 1,000 mg PO BIDWMEAL 30 days #60 05/24/24 06/16/24 Rx tablet tabs oxycodone 10 mg tablet 10 mg PO BIDP PRN Moderate Pain 06/11/24 06/16/24 Rx (Scale Score 5-6) #60 tabs New Prescriptions to Start Prescriptions: Allergies Allergy/AdvReac Type Severity Reaction Status Date / Time cephalexin (From Keflex) Allergy Mild Hives Verified 05/27/24 10:07 sulfamethoxazole (From Allergy Unknown Hives Verified 05/27/24 10:07 BACTRIM) trimethoprim (From BACTRIM) Allergy Unknown Hives Verified 05/27/24 10:07 Ortho Exam (Inpt) Vital signs and Labs for Last 24 Hours: Temp Pulse Resp BP Pulse Ox O2 Del Method 97.8 F 91 H 18 117/71 98 Room Air 06/17/24 11:59 06/17/24 11:59 06/17/24 11:59 06/17/24 11:59 06/17/24 11:59 06/17/24 11:59 Laboratory Results - last 24 hr 06/16/24 13:27: Sodium 128 L, Potassium 4.2, Chloride 92 L, Carbon Dioxide 30, Anion Gap 10.2, BUN 6 L, Creatinine 0.70, Estimated Creat Clear 105, Estimated GFR 115, Est GFR ( Amer) 140, Glucose 139 H D, Calcium 9.0 06/16/24 16:47: POC Glucose 161 H 06/16/24 18:06: Sodium 126 L, Potassium 4.1, Chloride 94 L, Carbon Dioxide 27, Anion Gap 9.1, BUN 8 L D, Creatinine 0.60 L, Estimated Creat Clear 122, Estimated GFR 138, Est GFR ( Amer) 167, Glucose 185 H D, Calcium 8.7 06/17/24 05:48: WBC 3.5 L, RBC 3.49 L, Hgb 10.9 L D, Hct 31.2 L, MCV 89.4, MCH 31.5 H, MCHC 35.3, RDW 12.5, Plt Count 134 L, MPV 10.6 H, Neut % (Auto) 55.6, Lymph % (Auto) 23.3, [place] % (Auto) 15.3 H, Eos % (Auto) 4.3, Baso % (Auto) 0.9, Neut # (Auto) 2.0, Lymph # (Auto) 0.8, [place] # (Auto) 0.5, Eos # (Auto) 0.2, Baso # (Auto) 0.0, Sodium 130 L, Potassium 3.8, Chloride 99, Carbon Dioxide 25, Anion Gap 9.8, BUN 9, Creatinine 0.70, Estimated Creat Clear 104, Estimated GFR 115, Est GFR ( Amer) 140, Glucose 105 H D, Calcium 8.8, Phosphorus 3.0, Magnesium 1.9, Total Bilirubin 0.3, AST 27 D, ALT 15, Alkaline Phosphatase 80, Total Protein 5.9 L, Albumin 3.6, Globulin 2.3, Albumin/Globulin Ratio 1.6 06/17/24 06:27: POC Glucose 110 I & O for Labs for Last 24 Hours: Intake & Output 06/14/24 06/15/24 06/16/24 06/17/24 23:59 23:59 23:59 23:59 Intake Total 870 / 1170 780 / 780 Output Total 800 / 1300 4250 / 4250 300 / 300 Balance -800 / -1150 -3380 / -3080 480 / 480 Weight 143 lb 14.4 oz 143 lb 14.331 oz 142 lb Head: Present normocephalic and atraumatic Additional findings:: Left elbow: Cast removed skins intact sensations intact there is mild swelling around the olecranon. He is able to actively extend the elbow to -15 degrees bend the elbow to 90 degrees with no pain. . X-rays of the left elbow show comminuted olecranon fracture with small articular step-off compared to injury film alignment remains acceptable. Results Labs 06/17/24 05:48 06/17/24 05:48 Labs: Abnormal lab results 06/16/24 06/16/24 06/16/24 Range/Units 13:27 16:47 18:06 WBC (4.8-10.8) K/mm3 RBC (4.60-6.20) M/mm3 Hgb (14.1-18.0) g/dL Hct (42.0-52.0) % MCH (27.0-31.2) pg Plt Count (142-424) K/mm3 MPV (7.4-10.4) fl [place] % (Auto) (1.7-9.3) % Sodium 128 L 126 L (136-145) mmol/L Chloride 92 L 94 L (98-107) mmol/L BUN 6 L 8 L D (9-20) mg/dl Creatinine 0.60 L (0.66-1.25) mg/dl Glucose 139 H D 185 H D (74-100) mg/dl POC Glucose 161 H (70-110) Total Protein (6.3-8.2) g/dl 06/17/24 Range/Units 05:48 WBC 3.5 L (4.8-10.8) K/mm3 RBC 3.49 L (4.60-6.20) M/mm3 Hgb 10.9 L D (14.1-18.0) g/dL Hct 31.2 L (42.0-52.0) % MCH 31.5 H (27.0-31.2) pg Plt Count 134 L (142-424) K/mm3 MPV 10.6 H (7.4-10.4) fl [place] % (Auto) 15.3 H (1.7-9.3) % Sodium 130 L (136-145) mmol/L Chloride (98-107) mmol/L BUN (9-20) mg/dl Creatinine (0.66-1.25) mg/dl Glucose 105 H D (74-100) mg/dl POC Glucose (70-110) Total Protein 5.9 L (6.3-8.2) g/dl H & H 06/15/24 06/16/24 06/17/24 Range/Units 19:12 06:46 05:48 Hgb 11.7 L 12.6 L 10.9 L D (14.1-18.0) g/dL Hct 31.5 L 34.6 L 31.2 L (42.0-52.0) % Coagulation 06/15/24 06/15/24 Range/Units 19:12 22:37 INR 0.93 0.94 (0.9-1.1) All other labs normal. Assessment and Plan *Assessment and plan (1) Nondisplaced fracture of olecranon process of left ulna with intra-articular extension: Status: Acute Qualifiers: Encounter type: initial encounter Fracture type: closed Qualified Code(s): S52.035A - Nondisplaced fracture of olecranon process with intraarticular extension of left ulna, initial encounter for closed fracture Category: Medical Code(s): S52.035A - Nondisplaced fracture of olecranon process with intraarticular extension of left ulna, initial encounter for closed fracture Plan I remove the cast today in the hospital patient be fitted for a hinged elbow brace with range of motion from 0 degrees extension 90 degrees of flexion. I reviewed x-ray findings with him today. He has no desire for surgical intervention. He also has no desire for any further splinting or casting. We will place him in the elbow brace to allow for protected range of motion 0 to 90 degrees. Discussing displacement and surgical intervention patient reports that he is not interested in surgery regardless of the functional outcome of the elbow. I cautioned him to not fall in the elbow be compliant with the splinting which will allow him the opportunity of the best outcome in regards to his current fracture. If it were to displace can call secondary posttraumatic arthritis and severe limitation in the range of motion of the elbow. Follow-up appointment in clinic 3 weeks with x-ray prior to visit
--- NOTE | 2024-06-17 12:30 | P.DS_ITS ---
General Admission date:: 06/15/24 HPI HPI HPI: 59-year-old male known to me from outpatient visit for olecranon fracture he was placed in a long-arm cast couple weeks ago. He has been in the long-arm cast admitted to hospital severe hyponatremia alcohol intoxication and missed appointment 2 days ago in the orthopedic clinic at that time he was scheduled for cast removal and repeat x-ray. Repeat x-ray performed today Ortho consult for treatment options in regards left elbow.. 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 Has had multiple admissions for similar presentation. #Symptomatic hyponatremia #Suspected beer potomania ? Patient has a longstanding history of alcohol use disorder, has been drinking a lot more over the past weeks. Mother earlier last year. Has been admitted several times over the past few months for similar presentations. ? Initial serum alcohol level 65, sodium 117. ? Sodium clinically improved to 130 with initial fluid resuscitation for dehydration, then fluid restriction. Patient was alert and oriented x 4 during hospital course. No focal deficits. ? Patient is interested in alcohol cessation. Unable to prescribe naltrexone due to chronic opioids for chronic pancreatitis. See below. #Alcohol use disorder #Alcohol withdrawal #History of seizures ? Patient is interested inpatient detox. Peers support consulted, reached out to [facility] who has accepted patient for inpatient detox. However, on the last day of hospitalization patient became very anxious about going [facility] and stated he would like to go home prior to go to [facility] in a day or 2. After extensive conversations with peers support, patient elected to discharge home and consider going to [facility] in the next day or 2. ? Resumed home Keppra 500 mg twice daily. ? Will avoid naltrexone given concomitant oxycodone for chronic pancreatitis. #Chronic pancreatitis with pseudocyst ? Continue home Creon and oxycodone. #COPD ? Stable. On room air #Nondisplaced fracture of the left ulna ? Cast removed by orthopedic surgery, splint placed. Will follow-up with orthopedic surgery in the next 2 weeks. Total time spent on discharge: 32 minutes on chart review, counseling, documentation, and direct care with patient. Exam Data for Last 24 hours Vital signs and Labs for Last 24 Hours: Temp Pulse Resp BP Pulse Ox O2 Del Method 97.8 F 91 H 18 117/71 98 Room Air 06/17/24 11:59 06/17/24 11:59 06/17/24 11:59 06/17/24 11:59 06/17/24 11:59 06/17/24 11:59 Laboratory Results - last 24 hr 06/16/24 13:27: Sodium 128 L, Potassium 4.2, Chloride 92 L, Carbon Dioxide 30, Anion Gap 10.2, BUN 6 L, Creatinine 0.70, Estimated Creat Clear 105, Estimated GFR 115, Est GFR ( Amer) 140, Glucose 139 H D, Calcium 9.0 06/16/24 16:47: POC Glucose 161 H 06/16/24 18:06: Sodium 126 L, Potassium 4.1, Chloride 94 L, Carbon Dioxide 27, Anion Gap 9.1, BUN 8 L D, Creatinine 0.60 L, Estimated Creat Clear 122, Estimated GFR 138, Est GFR ( Amer) 167, Glucose 185 H D, Calcium 8.7 06/17/24 05:48: WBC 3.5 L, RBC 3.49 L, Hgb 10.9 L D, Hct 31.2 L, MCV 89.4, MCH 31.5 H, MCHC 35.3, RDW 12.5, Plt Count 134 L, MPV 10.6 H, Neut % (Auto) 55.6, Lymph % (Auto) 23.3, [place] % (Auto) 15.3 H, Eos % (Auto) 4.3, Baso % (Auto) 0.9, Neut # (Auto) 2.0, Lymph # (Auto) 0.8, [place] # (Auto) 0.5, Eos # (Auto) 0.2, Baso # (Auto) 0.0, Sodium 130 L, Potassium 3.8, Chloride 99, Carbon Dioxide 25, Anion Gap 9.8, BUN 9, Creatinine 0.70, Estimated Creat Clear 104, Estimated GFR 115, Est GFR ( Amer) 140, Glucose 105 H D, Calcium 8.8, Phosphorus 3.0, Magnesium 1.9, Total Bilirubin 0.3, AST 27 D, ALT 15, Alkaline Phosphatase 80, Total Protein 5.9 L, Albumin 3.6, Globulin 2.3, Albumin/Globulin Ratio 1.6 06/17/24 06:27: POC Glucose 110 I & O for Last 24 hours: Intake & Output 06/14/24 06/15/24 06/16/24 06/17/24 23:59 23:59 23:59 23:59 Intake Total 870 / 1170 780 / 780 Output Total 800 / 1300 4250 / 4250 300 / 300 Balance -800 / -1150 -3380 / -3080 480 / 480 Weight 65.272 kg 65.27 kg 64.41 kg Constitutional Constitutional: no acute distress, thin and chronically ill appearing *Routine HEENT Exam Head: Present normocephalic Eye: Present EOMI and normal accommodation ENT: Present mucous membranes moist *Routine Neck Exam Neck: Present supple and full ROM *Routine Respiratory Exam Respiratory: Present diminished air movement; Absent accessory muscle use *Routine Cardiovascular Exam Cardiovascular: Present RRR, Normal S1 and Normal S2 *Routine Abdominal Exam Abdominal: Present soft and normoactive bowel sounds; Absent tenderness, distended, rebound or guarding *Routine Rectal Exam Patient deferred: visual exam *Routine Exam Patient deferred: penile exam *Routine Extremities Exam Extremities: Present normal capillary refill *Routine Skin Exam Skin: Present intact and warm *Routine Neurological Exam Neurological: Present alert, oriented X3 and moving all extremities; Absent altered mental status Results Data Completed and Pending Labs on day of discharge: Labs from last 24 hours 06/17/24 06/17/24 06/16/24 06:27 05:48 18:06 WBC 3.5 L RBC 3.49 L Hgb 10.9 L D Hct 31.2 L MCV 89.4 MCH 31.5 H MCHC 35.3 RDW 12.5 Plt Count 134 L MPV 10.6 H Neut % (Auto) 55.6 Lymph % (Auto) 23.3 [place] % (Auto) 15.3 H Eos % (Auto) 4.3 Baso % (Auto) 0.9 Neut # (Auto) 2.0 Lymph # (Auto) 0.8 [place] # (Auto) 0.5 Eos # (Auto) 0.2 Baso # (Auto) 0.0 Sodium 130 L 126 L Potassium 3.8 4.1 Chloride 99 94 L Carbon Dioxide 25 27 Anion Gap 9.8 9.1 BUN 9 8 L D Creatinine 0.70 0.60 L Estimated Creat Clear 104 122 Estimated GFR 115 138 Est GFR ( Amer) 140 167 Glucose 105 H D 185 H D POC Glucose 110 Calcium 8.8 8.7 Phosphorus 3.0 Magnesium 1.9 Total Bilirubin 0.3 AST 27 D ALT 15 Alkaline Phosphatase 80 Total Protein 5.9 L Albumin 3.6 Globulin 2.3 Albumin/Globulin Ratio 1.6 06/16/24 06/16/24 16:47 13:27 WBC RBC Hgb Hct MCV MCH MCHC RDW Plt Count MPV Neut % (Auto) Lymph % (Auto) [place] % (Auto) Eos % (Auto) Baso % (Auto) Neut # (Auto) Lymph # (Auto) [place] # (Auto) Eos # (Auto) Baso # (Auto) Sodium 128 L Potassium 4.2 Chloride 92 L Carbon Dioxide 30 Anion Gap 10.2 BUN 6 L Creatinine 0.70 Estimated Creat Clear 105 Estimated GFR 115 Est GFR ( Amer) 140 Glucose 139 H D POC Glucose 161 H Calcium 9.0 Phosphorus Magnesium Total Bilirubin AST ALT Alkaline Phosphatase Total Protein Albumin Globulin Albumin/Globulin Ratio DS: Diagnosis Discharge Diagnosis (1) Nondisplaced fracture of olecranon process of left ulna with intra-articular extension: Status: Acute Code(s): S52.035A - Nondisplaced fracture of olecranon process with intraarticular extension of left ulna, initial encounter for closed fracture Qualifiers: Encounter type: initial encounter Fracture type: closed Qualified Code(s): S52.035A - Nondisplaced fracture of olecranon process with intraarticular extension of left ulna, initial encounter for closed fracture Meds Home Medications and Allergies Home Medications ?Medication ?Instructions ?Recorded ?Confirmed ?Type folic acid 1 mg tablet 1 mg PO DAILY #100 tabs 12/01/23 06/16/24 Rx thiamine HCl (vitamin B1) 100 mg 100 mg PO DAILY #100 tabs 12/01/23 06/16/24 Rx tablet albuterol sulfate 90 mcg/actuation 1 inh inhalation Q4HP PRN 02/12/24 06/16/24 Rx breath activated powder Shortness Of Breath #1 ea inhaler,sensor fluticasone propionate 50 2 spray intranasal BID 04/14/24 06/16/24 History mcg/actuation nasal spray,suspension (Flonase Allergy Relief) ouxref-izboqmeq-tmqaofl 3 cap PO BIDWMEAL 04/14/24 06/16/24 History 36,000-114,000-180,000 unit capsule,delay rel sucralfate 1 gram tablet (Carafate) 1 g PO BID 04/14/24 06/16/24 History levetiracetam 500 mg tablet 500 mg PO BID #60 tabs 04/26/24 06/16/24 Rx lorazepam 2 mg tablet 2 mg PO BIDP PRN Anxiety #60 tabs 04/28/24 06/16/24 Rx ascorbic acid (vitamin C) 250 mg 250 mg PO DAILY #100 tabs 05/07/24 06/16/24 Rx tablet omeprazole 40 mg capsule,delayed 40 mg PO HS #30 caps 05/17/24 06/16/24 Rx release sodium chloride 1,000 mg soluble 1,000 mg PO BIDWMEAL 30 days #60 05/24/24 06/16/24 Rx tablet tabs oxycodone 10 mg tablet 10 mg PO BIDP PRN Moderate Pain 06/11/24 06/16/24 Rx (Scale Score 5-6) #60 tabs New Prescriptions to Start Prescriptions: Allergies Allergy/AdvReac Type Severity Reaction Status Date / Time cephalexin (From Keflex) Allergy Mild Hives Verified 05/27/24 10:07 sulfamethoxazole (From Allergy Unknown Hives Verified 05/27/24 10:07 BACTRIM) trimethoprim (From BACTRIM) Allergy Unknown Hives Verified 05/27/24 10:07 Discharge Plan Disposition Patient Disposition: Home, Self-Care Condition: Fair Discharge Order Discharge Orders: Discharge Order (Routine); Ordered 06/17/24 Ordered By: Vitor Lopez Follow up Plan Follow up with: Baltazar Hdz DO [Staff Physician] - 06/24/24 9:15 am Xin Chavez [Parking Technician] - Enter time for follow up (Please call Xin at to follow up with peer support ) Richard Edgar MD [Primary Care Provider] - 06/21/24 11:20 am Prescriptions/Medication Reconciliation: Continued folic acid 1 mg tablet 1 mg PO DAILY Qty: 100 10RF thiamine HCl (vitamin B1) 100 mg tablet 100 mg PO DAILY Qty: 100 10RF albuterol sulfate 90 mcg/actuation aero powdr breath act w/sensor 1 inh IH Q4HP PRN (Reason: Shortness Of Breath) Qty: 1 12RF levetiracetam 500 mg tablet 500 mg PO BID Qty: 60 2RF lorazepam 2 mg tablet 2 mg PO BIDP PRN (Reason: Anxiety) Qty: 60 3RF ascorbic acid (vitamin C) 250 mg tablet 250 mg PO DAILY Qty: 100 10RF sodium chloride 1,000 mg tablet,soluble 1,000 mg PO BIDWMEAL 30 Days Qty: 60 0RF oxycodone 10 mg tablet 10 mg PO BIDP PRN (Reason: Moderate Pain (Scale Score 5-6)) Qty: 60 0RF omeprazole 40 mg capsule,delayed release(DR/EC) 40 mg PO HS Qty: 30 2RF sucralfate [Carafate] 1 gram tablet 1 g PO BID fluticasone propionate [Flonase Allergy Relief] 50 mcg/actuation spray,suspension 2 spray intranasal BID Rx Instructions: administer into each nostril ghozpy-klkzexsb-xafizaz 36,000-114,000- 180,000 unit capsule,delayed release(DR/EC) 3 cap PO BIDWMEAL Problem Reconciliation Problems Reviewed?: Yes Patient Discharge Instructions Patient Instructions: DI for Hyponatremia, DI for Drug or Alcohol Withdrawal Print Language: Austrian Providers Primary Care Provider: Richard Edgar Admit Provider: Vitor Lopez Attending Provider: Vitor Lopez
--- NOTE | 2024-06-17 15:28 | PEERSUPPORT ---
Peer Support Note Patient Information Patient Information: DOS: 06/17/2024 ? Reason: ETOH Ps follow up ? Building Rapport: Pt stated he is not going to treatment today. He wants to go home, until he feels calmer having his stuff and money to have. He asks if [facility] will take approve him again if he does not go. Pt confirms he does have contact numbers for [facility] if he changes his mind to go later while at home. ? Pt feels as if he disappointed everyone with not going ot treatment as planned. ? Ps shares personal experience and relevant stories to bring understanding to the challenges of decision making and awareness of negative feelings with alcohol use disorder. ? Ps affirmed patient that no one is disappointed and will continue to provide the best care and support for him when he is ready as well as ongoing support through follow up phone calls. ? Pt stated his home is shameful and not felt like cleaning so he dreads going to it. ? Ps suggest asking someone from [facility] or friend in recovery who goes to his adventist to help him able to discuss his desire for recovery. ? Ps and Pt discuss triggers and cravings possible once discharged and how to use safe coping skills to help refrain from drinking. ? Safe Coping Skills: -Rest -Eat daily -Shower -Call claims agent right of way, or friend from [facility] who is in recovery -Mindful to finances and budget (Buy food and necessities, Not Alcohol) -Prayer -Feed or pet neighbor's cat ? Plan of Recovery: -Call Xin- Day after discharge to further discuss a relapse prevention plan for weekend. -Ps to check in with continued follow ups. -Healthy conversation with sister on drive home of his plan for recovery -Take medications as directed -Refrain from alcohol -Attend follow up appointments with PCP and DR Hdz. -If pt has thought or desire of going to treatment at any time post discharge: Call [facility] to reassess immediately.
--- NOTE | 2024-06-18 10:10 | SW/DCPLANNER ---
Spoke with patient on the phone. Patient stated that he is doing well. Patient stated that he is aware of his upcoming appointments and that he has written them down on his calender. Patient stated that he stil wants to go to a recovery center when he gets to feeling better. Patient stated that he has no concerns or questions at this time. Vish Kimble
--- NOTE | 2024-06-18 17:09 | PEERSUPPORT ---
Peer Support Note Patient Information Patient Information: DOS: 06/17/2024 ? Reason: Pt contacted Ps post discharge same day ? Pt stated that he does still want to go to treatment at [facility] inpatient. Ps advised him to call [facility] to setup a time of pear picker following day providing home address. ? Pt was able to make contact with [facility] and provide information: ? Ps then assisted pt in devising a plan to prepare the next morning with gathering belongings to take with as well as wake up times and calls to make prior to pear picker. ? Pt is honest and tearful when sharing that he had already drank a beer since he has been discharged, saying he knows that if he continues living the way he does he will not live long. ? Ps provided empathetic listening to validate feelings and shifted back to recovery plan of action with committing to making the right decision and following through with plan to inpatient. ? Pt will contact ps on 06/18/2024 to update on his plan of action for recovery.
--- NOTE | 2024-06-18 17:10 | PEERSUPPORT ---
Peer Support Note Patient Information Patient Information: DOS: 06/18/2024 ? Pt contacts ps with update on plan of action: ? Pt stated he is waiting for [facility] transportation to pick him up, he has felder to take with him, clothes in a bag, cigarettes to smoke, and support from his nephew at home with him currently. ? Pt stated he knows this is his only option to make changes to his lifestyle in order to live or he will . ? Ps affirms patient positively with support to decisions made. ? Pt questions and concerns: -Will they give me my ativan and not let me have seizures? ? Ps responds the doctors onsite at [facility] will be the ones to discuss his medication and take medical history into consideration. ? Skill to use: -Pt to speak his concerns and fears of seizures to doctors openly as well as keep and open minded to trust the doctor care provided to him for his wellness and recovery journey. ? Pt also ask if he will be protected from others who become violent. ' Skill to use: Ps assures that violence will not be tolerated, and if he becomes or feels threatened to report to counselor or staff immediately. ? Pt wants to list Ps as supportive contact during inpatient. Skill to use: Ps approves for pt to give contact information on ps [facility] card provided to [facility] during intake to add to his chart. ? Plan of Action: Admit into [facility] for Alcohol Use Disorder Ps will follow up with patient once program completed. Pt can reach out to Ps when allowed to make phone calls to update.
== END 2024-06-17 15:22 | disposition home or self-care (01) | DRG 897 ==
LOC: ER 21:18 → 2ND 21:39
PROVIDERS: Student in an Organized Health Care Education/Training Program; Admitting Provider Student in an Organized Health Care Education/Training Program; Emergency Provider Emergency Medicine; PCP Family Medicine; Visit Provider Student in an Organized Health Care Education/Training Program
DX: F10.229 Alcohol dependence with intoxication, unspecified (principal); E87.1 Hypo-osmolality and hyponatremia; K86.3 Pseudocyst of pancreas; C34.90 Malignant neoplasm of unspecified part of unspecified bronchus or lung; C79.51 Secondary malignant neoplasm of bone; G40.509 Epileptic seizures related to external causes, not intractable, without status epilepticus; F10.239 Alcohol dependence with withdrawal, unspecified; Y90.3 Blood alcohol level of 60-79 mg/100 ml; Z68.21 Body mass index [BMI] 21.0-21.9, adult; J44.9 Chronic obstructive pulmonary disease, unspecified; Z79.899 Other long term (current) drug therapy; S52.035D Nondisplaced fracture of olecranon process with intraarticular extension of left ulna, subsequent encounter for closed fracture with routine healing; E86.0 Dehydration; F17.210 Nicotine dependence, cigarettes, uncomplicated; D53.9 Nutritional anemia, unspecified
CPT/HCPCS: 36415; 73070; 80048; 80053; 80307; 80320; 81001; 82962; 83690; 83735; 84100; 85025; 85610; 85730; 86803; 87389; 93005; 93306; 99291; J1650; J1885; J2060; J2765; J3475; J3480; J7030; J7060

== ENCOUNTER 2024-07-17 19:46 | Observation (INO) | payer MEDICAID, SELFPAY ==
[2024-07-17] VITALS (14 sets, daily range): BP systolic 100–131; BP diastolic 70–80; PULSE 30–80; RESP 18–20; TEMP 36.4–36.6; O2SAT 80–100; BMI 21.7; BMI 20.9
--- NOTE | 2024-07-17 19:31 | PC.NURSE ---
Pt awake alert and oriented Skin pink warm and dry Resp full and easy Speech clear and appropriate EMS line in right AC without redness or edema Report to Carmen BRUNSON
--- NOTE | 2024-07-17 19:33 | XR_ITS ---
PROCEDURE INFORMATION: Exam: XR Chest Exam date and time: 07/17/2024 7:55 PM Age: 59 years old Clinical indication: Cough; Additional info: SOA TECHNIQUE: Imaging protocol: Radiologic exam of the chest. Views: 1 view. COMPARISON: CT CHEST WO CON 05/20/2024 2:33 PM FINDINGS: Lungs: Unremarkable. No consolidation. Pleural spaces: Unremarkable. No pleural effusion. No pneumothorax. Heart/Mediastinum: Unremarkable. No cardiomegaly. Bones/joints: Unremarkable. IMPRESSION: No acute findings.
[2024-07-17 19:40] LABS: Basophils # 0.1 K/mm3 (0-0.2); Basophils % 0.5 % (0.1-2.0); Eosinophils # 0.2 K/mm3 (0.0-0.4); Eosinophils % 2.2 % (0.1-12.0); Hematocrit 35.7 % (42.0-52.0); Hemoglobin 12.1 g/dL (14.1-18.0); Lymphocytes # 1.6 K/mm3 (0.7-4.5); Lymphocytes % 15.5 % (10-50); Mean Corpuscular HGB Conc 33.9 g/dL (31.8-35.4); Mean Corpuscular Hemoglobin 30.7 pg (27.0-31.2); Mean Corpuscular Volume 90.6 fl (80-94); Mean Platelet Volume 10.5 fl (7.4-10.4); Monocytes # 0.7 K/mm3 (0.1-1.0); Monocytes % 7.2 % (1.7-9.3); Neutrophils # 7.4 K/mm3 (1.8-7.8); Platelet Count 211 K/mm3 (142-424); Red Blood Count 3.94 M/mm3 (4.60-6.20); Red Cell Distribution Width 12.6 % (11.5-17.5)
--- NOTE | 2024-07-17 19:45 | ED_ITS ---
Discharge Plan Disposition Patient Disposition: Admitted Clinical Impressions Clinical Impression: Hypokalemia Discharge ED Provider: Kun Mena General Adult HPI <Rose Marquez APRN - Last Filed: 07/17/24 21:17> General Chief complaint: Upper Respiratory Infection Stated complaint: dizziness Time Seen by Provider: 07/17/24 20:16 Mode of Arrival: EMS Source of Information: Patient Limitations: No Limitations Description of Symptoms (Recalled from ER Triage Doc. by RN): Pt states recently seen at [facility] and [facility] for difficulty breathing Pt states he is having increased difficulty breathing and felt faint today. History of Present Illness HPI narrative: Patient is a 59-year-old male PMHx COPD and current tobacco use who presents to the ED for cough and nausea x 5 days. Patient states he is currently being treated for bronchitis with doxycycline that he received from [place]. Related Data Home Medications ?Medication ?Instructions ?Recorded ?Confirmed fluticasone propionate 50 2 spray intranasal BID 04/14/24 07/17/24 mcg/actuation nasal spray,suspension (Flonase Allergy Relief) [id number] 3 cap PO BIDWMEAL 04/14/24 07/17/24 36,000-114,000-180,000 unit capsule,delay rel sucralfate 1 gram tablet (Carafate) 1 g PO BID 04/14/24 07/17/24 trazodone 100 mg tablet 100 mg PO DAILY 07/09/24 07/17/24 Previous Rx's ?Medication ?Instructions ?Recorded folic acid 1 mg tablet 1 mg PO DAILY #100 tabs 12/01/23 thiamine HCl (vitamin B1) 100 mg 100 mg PO DAILY #100 tabs 12/01/23 tablet albuterol sulfate 90 mcg/actuation 1 inh inhalation Q4HP PRN 02/12/24 breath activated powder Shortness Of Breath #1 ea inhaler,sensor levetiracetam 500 mg tablet 500 mg PO BID #60 tabs 04/26/24 lorazepam 2 mg tablet 2 mg PO BIDP PRN Anxiety #60 tabs 04/28/24 ascorbic acid (vitamin C) 250 mg 250 mg PO DAILY #100 tabs 05/07/24 tablet omeprazole 40 mg capsule,delayed 40 mg PO HS #30 caps 05/17/24 release sodium chloride 1,000 mg soluble 1,000 mg PO BIDWMEAL 30 days #60 05/24/24 tablet tabs benzonatate 100 mg capsule 100 mg PO BID PRN cough #20 caps 07/09/24 doxycycline hyclate 100 mg tablet 100 mg PO BID #20 tabs 07/09/24 oxycodone 10 mg tablet 10 mg PO BIDP PRN Moderate Pain 07/12/24 (Scale Score 5-6) #60 tabs Allergies Allergy/AdvReac Type Severity Reaction Status Date / Time cephalexin (From Keflex) Allergy Mild Hives Verified 07/09/24 14:06 sulfamethoxazole (From Allergy Unknown Hives Verified 07/09/24 14:06 BACTRIM) trimethoprim (From BACTRIM) Allergy Unknown Hives Verified 07/09/24 14:06 [facility] <Rose Marquez, APPLICATION INTEGRATION ENGINEER - Last Filed: 07/17/24 21:17> [facility] Disclaimer: The information contained in this section may have been updated after the patient was seen, as this information can be updated by other users. Medical History Piloerection Paresthesias Weakness Nausea, vomiting, and diarrhea Abdominal pain, chronic, epigastric Periumbilical abdominal pain Cough Lung nodule Acute on chronic pancreatitis Acute on chronic pancreatitis Hypochloremia Hearing loss Pancreatic pseudocyst Chronic alcohol abuse Bipolar 1 disorder Seizures Abdominal aneurysm Excessive cerumen in left ear canal SBO (small bowel obstruction) Acute pancreatitis Cachexia Acute on chronic pancreatitis Gastrostomy tube dependent Metastatic non-small cell lung cancer Severe protein-calorie malnutrition Lung cancer metastatic to bone Abdominal pain Pancreatic pseudocyst Abdominal pain Bone marrow disorder Cirrhosis COPD (chronic obstructive pulmonary disease) GERD (gastroesophageal reflux disease) Gastric outlet obstruction History of lung cancer Pancreatic pseudocyst Alcoholic pancreatitis Anxiety History of lung cancer Alcohol abuse Pancreatitis, acute Gallstone pancreatitis will refer to surgery Pancreatitis Hypokalemia Surgical History History of local excision of skin lesion History of aortic aneurysm repair History of cholecystectomy Hx of cholecystectomy Family History Other Cancer of lung Emphysema lung Social History (Updated 07/17/24 @ 22:51 by Wilner Friedman RN) Smoking Status: Current every day smoker tobacco type: cigarettes packs per day: 3 alcohol intake: former substance use type: denies use current occupational status: unemployed and disabled Travel in the last 8 weeks: None household members: family housing: house current occupational exposures/hazards: No caffeine: No Have you lived/traveled outside [place] in past 30 days?: No Contact w/someone who lives/traveled outside US past 30 days?: No Exposure to someone with infectious disease in past 14 days?: No Do you have a fever (greater than 100.4 F or 38 C)?: No Have you tested positive for COVID-19: No Exposed to someone with COVID-19 in past 14 days?: No Do you have a sore throat?: No Do you have a cough?: No Do you have any weakness?: No Do you have any diarrhea?: No Are you experiencing any unusual bleeding?: No Do you have any muscle aches/pain?: No Do you have any abdominal pain?: No Are you experiencing loss of taste or smell?: No Other Medical History Have you received the Flu Vaccine for this season: No Have you received the Pneumonia Vaccine: No <Rose Marquez APRN - Last Filed: 07/17/24 21:17> ROS Obtained: Yes Systems reviewed as appropriate & no additional complaints except as documented Physical Exam <Rose Marquez APRN - Last Filed: 07/17/24 21:17> General General appearance: alert and in no apparent distress Head Head exam: atraumatic and normocephalic Eye Eye exam: Present normal appearance and PERRL ENT ENT exam: Present normal exam Neck Neck exam: Present normal inspection Chest Chest inspection: Present normal inspection and symmetric chest wall rise; Absent tenderness Respiratory Respiratory exam: Present wheezes; Absent respiratory distress Cardiovascular Cardiovascular exam: Present regular rate Abdominal Exam Abdominal exam: Present soft and normal bowel sounds; Absent tenderness Extremities Exam Extremities exam: Present normal inspection and full ROM Back Exam Back exam: Present normal inspection and full ROM Neurological Exam Neurological exam: Present alert and oriented X3 Psychiatric Psychiatric exam: Present normal affect and normal mood Skin Skin exam: Present warm and dry Medical Decision Making <Rose Marquez APRN - Last Filed: 07/17/24 21:17> Medical Records Screening: Per USPSTF and CDC recommendations, given the prevalence of disease in our region, it is our hospital?s policy to screen for HIV and viral Hepatitis for all patients aged 18 and over and those with ongoing risk factors. [place] Inquiry Pt receiving controlled substance: No [place] was queried for this patient: No Vital Signs: 07/17/24 19:25 07/17/24 19:26 07/17/24 19:26 Temperature 97.5 F L Temperature Source Oral Pulse Rate 30 L 71 Pulse Rate [Bilateral Brachial] 70 Respiratory Rate 20 Blood Pressure 121/80 100/72 L Blood Pressure [Right Arm] 121/80 Blood Pressure Mean [Right Arm] 93 Blood Pressure Source [Right Arm] Automatic Cuff Blood Pressure Position [Right Arm] Sitting 02 Sat by Pulse Oximetry 80 L 96 99 Oxygen Delivery Method Room Air 07/17/24 19:27 07/17/24 19:28 07/17/24 19:29 Temperature Temperature Source Pulse Rate 72 75 72 Pulse Rate [Bilateral Brachial] Respiratory Rate Blood Pressure 111/76 113/70 116/73 Blood Pressure [Right Arm] Blood Pressure Mean [Right Arm] Blood Pressure Source [Right Arm] Blood Pressure Position [Right Arm] 02 Sat by Pulse Oximetry 98 99 100 Oxygen Delivery Method 07/17/24 19:30 07/17/24 19:45 07/17/24 20:00 Temperature Temperature Source Pulse Rate 75 72 78 Pulse Rate [Bilateral Brachial] Respiratory Rate Blood Pressure 112/77 109/74 L Blood Pressure [Right Arm] Blood Pressure Mean [Right Arm] Blood Pressure Source [Right Arm] Blood Pressure Position [Right Arm] 02 Sat by Pulse Oximetry 98 98 98 Oxygen Delivery Method 07/17/24 20:15 07/17/24 20:18 07/17/24 20:18 Temperature Temperature Source Pulse Rate 76 80 74 Pulse Rate [Bilateral Brachial] Respiratory Rate Blood Pressure Blood Pressure [Right Arm] Blood Pressure Mean [Right Arm] Blood Pressure Source [Right Arm] Blood Pressure Position [Right Arm] 02 Sat by Pulse Oximetry 98 Oxygen Delivery Method 07/17/24 20:30 07/17/24 22:01 Temperature 97.9 F Temperature Source Tympanic Pulse Rate 78 78 Pulse Rate [Bilateral Brachial] Respiratory Rate 18 Blood Pressure 131/77 Blood Pressure [Right Arm] Blood Pressure Mean [Right Arm] Blood Pressure Source [Right Arm] Blood Pressure Position [Right Arm] 02 Sat by Pulse Oximetry 98 Oxygen Delivery Method Room Air Lab Data Lab Results 07/17/24 19:32: WBC 10.0, RBC 3.94 L, Hgb 12.1 L, Hct 35.7 L, MCV 90.6, MCH 30.7, MCHC 33.9, RDW 12.6, Plt Count 211, MPV 10.5 H, Neut % (Auto) 74.0, Lymph % (Auto) 15.5, Terry % (Auto) 7.2, Eos % (Auto) 2.2, Baso % (Auto) 0.5, Neut # (Auto) 7.4, Lymph # (Auto) 1.6, Terry # (Auto) 0.7, Eos # (Auto) 0.2, Baso # (Auto) 0.1, Sodium 139, Potassium 2.5 L*, Chloride 119 H, Carbon Dioxide 17 L, Anion Gap 5.5, BUN 5 L, Creatinine 0.40 L, Estimated Creat Clear 182, Estimated GFR 220, Est GFR ( Amer) 266, Glucose 66 L, Calcium 5.1 L*, Magnesium 1.0 L, Total Bilirubin 0.2, AST 16 L, ALT 17, Alkaline Phosphatase 71, Total Protein 4.0 L D, Albumin 2.0 L, Globulin 2.0, Albumin/Globulin Ratio 1.0 L, Plasma/Serum Alcohol < 10 07/17/24 19:51: SARS-CoV-2 (PCR) Not detected, Influenza A Untype (PCR) Not detected, Influenza Type B (PCR) Not detected 07/17/24 19:32 07/17/24 19:32 Orders (Tests/Meds): ED MEDICATIONS Generic Name Dose Route Start Last Admin Trade Name Freq PRN Reason Stop Dose Admin Acetaminophen 650 mg 07/17/24 21:37 Acetaminophen 325mg Tab PO 08/16/24 21:36 Q4HP PRN Fever or Mild Pain (1-3) Albuterol/Ipratropium 3 ml 07/17/24 21:41 Ipratropium/Albuterol 3 Ml Neb 08/16/24 21:40 Q4HP PRN Shortness Of Breath Calcium Carbonate 1,000 mg 07/18/24 09:00 Oyster Shell Calcium (Elemental) 500mg Tab PO 08/17/24 08:59 TID BUZZ Doxycycline Hyclate 100 mg 07/18/24 09:00 Doxycycline Hycl 100 Mg Tablet PO 07/25/24 08:59 Q12H BUZZ Enoxaparin Sodium 40 mg 07/18/24 09:00 Enoxaparin 40mg/0.4ml Syringe SUBCUT 08/17/24 08:59 DAILY BUZZ Guaifenesin 10 ml 07/17/24 21:41 Guaifenesin/Dextromethorphan 200mg/20mg 10ml Udc PO 08/16/24 21:40 Q4HP PRN cough Lactated Ringer's 1,000 mls @ 50 mls/hr 07/17/24 21:45 07/17/24 22:35 Lactated Ringer's 1000 Ml Bag IV 08/16/24 21:44 50 mls/hr .Q20H BUZZ Administration Thiamine HCl 100 mg/ Sodium 51 mls @ 204 mls/hr 07/18/24 09:00 Chloride IV 07/20/24 09:01 DAILY BUZZ Magnesium Sulfate 2 gm in 50 mls @ 50 mls/hr 07/17/24 22:30 07/17/24 22:35 Magnesium Sulfate 2gm/50ml Premix IV 07/18/24 01:29 50 mls/hr Q1H BUZZ Administration Nicotine 21 mg 07/17/24 21:39 Nicotine 21mg/24hr Patch TD 08/16/24 21:38 DAILYP PRN Nicotine Cravings Ondansetron HCl 4 mg 07/17/24 21:37 Ondansetron 4mg/2ml Vial IV 08/16/24 21:36 Q8HP PRN Nausea Potassium Chloride 40 meq 07/17/24 22:30 07/17/24 22:35 Potassium Chloride 20meq Tab PO 07/18/24 02:31 40 meq Q4H BUZZ Administration Discontinued Medications Generic Name Dose Route Start Last Admin Trade Name Freq PRN Reason Stop Dose Admin Albuterol/Ipratropium 3 ml 07/17/24 19:59 07/17/24 20:17 Ipratropium/Albuterol 3 Ml Neb IH 07/17/24 20:00 3 ml ONCE ONE Administration Guaifenesin 200 mg 07/17/24 21:06 07/17/24 21:13 Guaifenesin 200mg/10ml Syrup Udc PO 07/17/24 21:07 200 mg ONCE ONE Administration Potassium Chloride/Water 100 mls @ 100 mls/hr 07/17/24 20:08 07/17/24 20:20 Potassium Chloride 10meq/100ml Ivpb IV 07/17/24 21:07 100 mls/hr ONCE ONE Administration Calcium Gluconate/Sodium Chloride 1 gm in 50 mls @ 50 mls/hr 07/17/24 20:11 07/17/24 20:20 Calcium Gluconate 1,000mg/50ml Nacl Premix IV 07/17/24 21:10 50 mls/hr ONCE ONE Administration Ondansetron HCl 4 mg 07/17/24 19:59 07/17/24 20:07 Ondansetron 4mg/2ml Vial IV 07/17/24 20:00 4 mg ONCE ONE Administration Potassium Chloride 40 meq 07/17/24 20:08 07/17/24 20:20 Potassium Chloride 20meq Tab PO 07/17/24 20:09 40 meq ONCE ONE Administration ORDERS Category Date Time Status CXR --portable [XR chest portable] Stat Exams 07/17/24 19:33 Completed Basic Metabolic Panel AMLAB Lab 07/18/24 06:00 Ordered Basic Metabolic Panel AMLAB Lab 07/19/24 06:00 Ordered Basic Metabolic Panel AMLAB Lab 07/20/24 06:00 Ordered Basic Metabolic Panel AMLAB Lab 07/21/24 06:00 Ordered Basic Metabolic Panel AMLAB Lab 07/22/24 06:00 Ordered CBC w/Auto Diff [Complete Blood Count Auto Diff] Stat Lab 07/17/24 19:32 Completed CMP [Comprehensive Metabolic Panel] Stat Lab 07/17/24 19:32 Completed Complete Blood Count Auto Diff AMLAB Lab 07/18/24 06:00 Ordered Complete Blood Count Auto Diff AMLAB Lab 07/19/24 06:00 Ordered Complete Blood Count Auto Diff AMLAB Lab 07/20/24 06:00 Ordered Complete Blood Count Auto Diff AMLAB Lab 07/21/24 06:00 Ordered Complete Blood Count Auto Diff AMLAB Lab 07/22/24 06:00 Ordered Ethanol [Ethyl Alcohol] Routine Lab 07/17/24 19:32 Completed Magnesium AMLAB Lab 07/18/24 06:00 Ordered Magnesium Stat Lab 07/17/24 19:32 Completed Phosphorous AMLAB Lab 07/18/24 06:00 Ordered Rapid PCR Covid and Flu A/B Stat Lab 07/17/24 19:51 Completed Medical Decision Narrative: In summary, patient is a 59-year-old male PMHx COPD, history of pancreatitis, history of malnutrition history of electrolyte imbalances and current tobacco use (x 40 years) who presents to the ED for cough and nausea x 5 days. Patient states he is currently being treated for bronchitis with doxycycline that he received from [facility]. Patient states he has been compliant with his medication. Upon initial exam, patient is alert, oriented and cooperative. Patient is hemodynamically stable. Physical exam unremarkable. Denies fever, chills, headache, visual disturbances, chest pain, back pain, abdominal pain, nausea, vomiting, dysuria. Differential diagnosis includes bronchitis, COVID, influenza, COPD exacerbation, among others Initial workup will be conducted with hematologic labs, imaging. Initial inventions include DuoNeb and Zofran. Records reviewed, on 06/15/2024 patient was admitted for alcohol intoxication. Initial workup reviewed by me. CBC unremarkable for leukocytosis, stable H&H. CMP remarkable for a sodium of 139, potassium 2.5 (replaced orally and IV), BUN 5, creatinine 0.40, calcium 5.1 (replaced IV). COVID and influenza negative. I informally interpreted the imaging as no acute process, see final read. Due to hypokalemia and hypocalcemia, I discussed admission with patient. He is agreeable. I discussed the case with hospital medicine who is agreed to admit the patient tonight. <Kun Mena MD - Last Filed: 07/17/24 23:24> Vital Signs: 07/17/24 19:25 07/17/24 19:26 07/17/24 19:26 Temperature 97.5 F L Temperature Source Oral Pulse Rate 30 L 71 Pulse Rate [Bilateral Brachial] 70 Respiratory Rate 20 Blood Pressure 121/80 100/72 L Blood Pressure [Right Arm] 121/80 Blood Pressure Mean [Right Arm] 93 Blood Pressure Source [Right Arm] Automatic Cuff Blood Pressure Position [Right Arm] Sitting 02 Sat by Pulse Oximetry 80 L 96 99 Oxygen Delivery Method Room Air 07/17/24 19:27 07/17/24 19:28 07/17/24 19:29 Temperature Temperature Source Pulse Rate 72 75 72 Pulse Rate [Bilateral Brachial] Respiratory Rate Blood Pressure 111/76 113/70 116/73 Blood Pressure [Right Arm] Blood Pressure Mean [Right Arm] Blood Pressure Source [Right Arm] Blood Pressure Position [Right Arm] 02 Sat by Pulse Oximetry 98 99 100 Oxygen Delivery Method 07/17/24 19:30 07/17/24 19:45 07/17/24 20:00 Temperature Temperature Source Pulse Rate 75 72 78 Pulse Rate [Bilateral Brachial] Respiratory Rate Blood Pressure 112/77 109/74 L Blood Pressure [Right Arm] Blood Pressure Mean [Right Arm] Blood Pressure Source [Right Arm] Blood Pressure Position [Right Arm] 02 Sat by Pulse Oximetry 98 98 98 Oxygen Delivery Method 07/17/24 20:15 07/17/24 20:18 07/17/24 20:18 Temperature Temperature Source Pulse Rate 76 80 74 Pulse Rate [Bilateral Brachial] Respiratory Rate Blood Pressure Blood Pressure [Right Arm] Blood Pressure Mean [Right Arm] Blood Pressure Source [Right Arm] Blood Pressure Position [Right Arm] 02 Sat by Pulse Oximetry 98 Oxygen Delivery Method 07/17/24 20:30 07/17/24 22:01 Temperature 97.9 F Temperature Source Tympanic Pulse Rate 78 78 Pulse Rate [Bilateral Brachial] Respiratory Rate 18 Blood Pressure 131/77 Blood Pressure [Right Arm] Blood Pressure Mean [Right Arm] Blood Pressure Source [Right Arm] Blood Pressure Position [Right Arm] 02 Sat by Pulse Oximetry 98 Oxygen Delivery Method Room Air Lab Data Lab Results 07/17/24 19:32: WBC 10.0, RBC 3.94 L, Hgb 12.1 L, Hct 35.7 L, MCV 90.6, MCH 30.7, MCHC 33.9, RDW 12.6, Plt Count 211, MPV 10.5 H, Neut % (Auto) 74.0, Lymph % (Auto) 15.5, Terry % (Auto) 7.2, Eos % (Auto) 2.2, Baso % (Auto) 0.5, Neut # (Auto) 7.4, Lymph # (Auto) 1.6, Terry # (Auto) 0.7, Eos # (Auto) 0.2, Baso # (Auto) 0.1, Sodium 139, Potassium 2.5 L*, Chloride 119 H, Carbon Dioxide 17 L, Anion Gap 5.5, BUN 5 L, Creatinine 0.40 L, Estimated Creat Clear 182, Estimated GFR 220, Est GFR ( Amer) 266, Glucose 66 L, Calcium 5.1 L*, Magnesium 1.0 L, Total Bilirubin 0.2, AST 16 L, ALT 17, Alkaline Phosphatase 71, Total Protein 4.0 L D, Albumin 2.0 L, Globulin 2.0, Albumin/Globulin Ratio 1.0 L, Plasma/Serum Alcohol < 10 07/17/24 19:51: SARS-CoV-2 (PCR) Not detected, Influenza A Untype (PCR) Not detected, Influenza Type B (PCR) Not detected Orders (Tests/Meds): ED MEDICATIONS Generic Name Dose Route Start Last Admin Trade Name Freq PRN Reason Stop Dose Admin Acetaminophen 650 mg 07/17/24 21:37 Acetaminophen 325mg Tab PO 08/16/24 21:36 Q4HP PRN Fever or Mild Pain (1-3) Albuterol/Ipratropium 3 ml 07/17/24 21:41 Ipratropium/Albuterol 3 Ml Neb IH 08/16/24 21:40 Q4HP PRN Shortness Of Breath Calcium Carbonate 1,000 mg 07/18/24 09:00 Oyster Shell Calcium (Elemental) 500mg Tab PO 08/17/24 08:59 TID BUZZ Doxycycline Hyclate 100 mg 07/18/24 09:00 Doxycycline Hycl 100 Mg Tablet PO 07/25/24 08:59 Q12H [facility] Enoxaparin Sodium 40 mg 07/18/24 09:00 Enoxaparin 40mg/0.4ml Syringe SUBCUT 08/17/24 08:59 DAILY BUZZ Guaifenesin 10 ml 07/17/24 21:41 Guaifenesin/Dextromethorphan 200mg/20mg 10ml Udc PO 08/16/24 21:40 Q4HP PRN cough Lactated Ringer's 1,000 mls @ 50 mls/hr 07/17/24 21:45 07/17/24 22:35 Lactated Ringer's 1000 Ml Bag IV 08/16/24 21:44 50 mls/hr .Q20H BUZZ Administration Thiamine HCl 100 mg/ Sodium 51 mls @ 204 mls/hr 07/18/24 09:00 Chloride IV 07/20/24 09:01 DAILY BUZZ Magnesium Sulfate 2 gm in 50 mls @ 50 mls/hr 07/17/24 22:30 07/17/24 22:35 Magnesium Sulfate 2gm/50ml Premix IV 07/18/24 01:29 50 mls/hr Q1H BUZZ Administration Nicotine 21 mg 07/17/24 21:39 Nicotine 21mg/24hr Patch TD 08/16/24 21:38 DAILYP PRN Nicotine Cravings Ondansetron HCl 4 mg 07/17/24 21:37 Ondansetron 4mg/2ml Vial IV 08/16/24 21:36 Q8HP PRN Nausea Potassium Chloride 40 meq 07/17/24 22:30 07/17/24 22:35 Potassium Chloride 20meq Tab PO 07/18/24 02:31 40 meq Q4H BUZZ Administration Discontinued Medications Generic Name Dose Route Start Last Admin Trade Name Freq PRN Reason Stop Dose Admin Albuterol/Ipratropium 3 ml 07/17/24 19:59 07/17/24 20:17 Ipratropium/Albuterol 3 Ml Neb IH 07/17/24 20:00 3 ml ONCE ONE Administration Guaifenesin 200 mg 07/17/24 21:06 07/17/24 21:13 Guaifenesin 200mg/10ml Syrup Udc PO 07/17/24 21:07 200 mg ONCE ONE Administration Potassium Chloride/Water 100 mls @ 100 mls/hr 07/17/24 20:08 07/17/24 20:20 Potassium Chloride 10meq/100ml Ivpb IV 07/17/24 21:07 100 mls/hr ONCE ONE Administration Calcium Gluconate/Sodium Chloride 1 gm in 50 mls @ 50 mls/hr 07/17/24 20:11 07/17/24 20:20 Calcium Gluconate 1,000mg/50ml Nacl Premix IV 07/17/24 21:10 50 mls/hr ONCE ONE Administration Ondansetron HCl 4 mg 07/17/24 19:59 07/17/24 20:07 Ondansetron 4mg/2ml Vial IV 07/17/24 20:00 4 mg ONCE ONE Administration Potassium Chloride 40 meq 07/17/24 20:08 07/17/24 20:20 Potassium Chloride 20meq Tab PO 07/17/24 20:09 40 meq ONCE ONE Administration ORDERS Category Date Time Status CXR --portable [XR chest portable] Stat Exams 07/17/24 19:33 Completed Basic Metabolic Panel AMLAB Lab 07/18/24 06:00 Ordered Basic Metabolic Panel AMLAB Lab 07/19/24 06:00 Ordered Basic Metabolic Panel AMLAB Lab 07/20/24 06:00 Ordered Basic Metabolic Panel AMLAB Lab 07/21/24 06:00 Ordered Basic Metabolic Panel AMLAB Lab 07/22/24 06:00 Ordered CBC w/Auto Diff [Complete Blood Count Auto Diff] Stat Lab 07/17/24 19:32 Completed CMP [Comprehensive Metabolic Panel] Stat Lab 07/17/24 19:32 Completed Complete Blood Count Auto Diff AMLAB Lab 07/18/24 06:00 Ordered Complete Blood Count Auto Diff AMLAB Lab 07/19/24 06:00 Ordered Complete Blood Count Auto Diff AMLAB Lab 07/20/24 06:00 Ordered Complete Blood Count Auto Diff AMLAB Lab 07/21/24 06:00 Ordered Complete Blood Count Auto Diff AMLAB Lab 07/22/24 06:00 Ordered Ethanol [Ethyl Alcohol] Routine Lab 07/17/24 19:32 Completed Magnesium AMLAB Lab 07/18/24 06:00 Ordered Magnesium Stat Lab 07/17/24 19:32 Completed Phosphorous AMLAB Lab 07/18/24 06:00 Ordered Rapid PCR Covid and Flu A/B Stat Lab 07/17/24 19:51 Completed ECG Data Tracing #1: I reviewed this ECG and interpreted as documented below: EKG with normal sinus rhythm. Ventricular rate Of [address] elevation or depression. No flattening of the T waves or prolongation of the QRS segment. QTc normal at 425. NH interval normal at 159. Medical Decision Narrative: In summary, patient is a 59-year-old male PMHx COPD, history of pancreatitis, history of malnutrition history of electrolyte imbalances and current tobacco use (x 40 years) who presents to the ED for cough and nausea x 5 days. Patient states he is currently being treated for bronchitis with doxycycline that he received from [facility]. Patient states he has been compliant with his medication. Upon initial exam, patient is alert, oriented and cooperative. Patient is hemodynamically stable. Physical exam unremarkable. Denies fever, chills, headache, visual disturbances, chest pain, back pain, abdominal pain, nausea, vomiting, dysuria. Differential diagnosis includes bronchitis, COVID, influenza, COPD exacerbation, among others Initial workup will be conducted with hematologic labs, imaging. Initial inventions include DuoNeb and Zofran. Records reviewed, on 06/15/2024 patient was admitted for alcohol intoxication. Initial workup reviewed by me. CBC unremarkable for leukocytosis, stable H&H. CMP remarkable for a sodium of 139, potassium 2.5 (replaced orally and IV), BUN 5, creatinine 0.40, calcium 5.1 (replaced IV). COVID and influenza negative. I informally interpreted the imaging as no acute process, see final read. Due to hypokalemia and hypocalcemia, I discussed admission with patient. He is agreeable. I discussed the case with hospital medicine who is agreed to admit the patient tonight. I was consulted by the [facility], and we discussed the complexity of the problems being addressed. I approve the treatment and management plan for this patient's care in the emergency department, thus performing a substantive portion of the medical decision making. Kun Mena MD Critical Care <Rose Marquez APRN - Last Filed: 07/17/24 21:17> Critical Care Time Critical Care Time: No
[2024-07-17 19:58] LABS: Coronavirus 19, PCR Not Detected (NotDetected); Influenza A, PCR Not Detected (NotDetected); Influenza B, PCR Not Detected (NotDetected)
[2024-07-17 19:58] LABS: Chloride 119 mmol/L (98-107); Sodium 139 mmol/L (136-145)
[2024-07-17 20:00] LABS: Blood Urea Nitrogen 5 mg/dl (9-20)
[2024-07-17 20:01] LABS: Alanine Aminotransferase 17 U/L (12-78); Alkaline Phosphatase 71 U/L (38-126); Anion Gap 5.5 mEq/L (5-15); Aspartate Amino Transferase 16 U/L (17-59); Bilirubin,Total 0.2 mg/dl (0.2-1.3); Carbon Dioxide 17 mmol/L (22.0-30.0); Creatinine Clearance Estimated 182 mL/min (50-200); Estimated Glomerular Filt Rate 220 ml/min (>60); GFR (African American) 266 ML/MIN (>60); Glucose 66 mg/dl (74-100)
[2024-07-17 20:06] LABS: Calcium 5.1 mg/dl (8.4-10.2); Potassium 2.5 mmoL/L (3.5-5.1)
[2024-07-17] MEDS: ONDANSETRON 4MG/2ML VIAL 4 MG IV (20:07)
--- NOTE | 2024-07-17 20:07 | PC.NURSE ---
notified Ann Marquez RN of critical lab results. K+2.5 calc 5.1
--- NOTE | 2024-07-17 20:13 | ECG_ITS ---
APPROVED REPORT Exam: Resting ECG HR:74 bpm ECG Measurements Heart Rate 74 AXES MN 159 P 80 QRSd 88 QRS 85 QT 398 T 78 QTc 425 Conclusion SINUS RHYTHM NORMAL ECG UNCONFIRMED REPORT NSR. No ST elevation or depression. QTC 425. Electronically signed by : BRET THOMPSON, 07/17/2024 21:00:26
[2024-07-17] MEDS: IPRATROPIUM/ALBUTEROL 3 ML NEB IH (20:17)
[2024-07-17] MEDS: POTASSIUM CHLORIDE 20MEQ TAB 40 MEQ PO ×2 (20:20→22:35)
[2024-07-17] MEDS: CALCIUM GLUC IN NACL, ISO-OSM 1 GM/50 ML BAG IV (20:20)
[2024-07-17] MEDS: KCl 10mEq/100ml 100 ML 100 MEQ IV (20:20)
[2024-07-17] MEDS: guaiFENesin 200MG/10ML SYRUP UDC 200 MG PO (21:13)
--- NOTE | 2024-07-17 21:18 | PC.NURSE ---
operations supervisor notified of need for bed assignment
[2024-07-17 22:05] LABS: Ethyl Alcohol < 10 mg/dl (0-10)
--- NOTE | 2024-07-17 22:07 | PC.NURSE ---
Patient arrived to floor via wheelchair from ED at 22:03.
[2024-07-17] MEDS: LACTATED RINGERS 1000ML 1,000 ML 50 ML IV (22:35)
[2024-07-17] MEDS: MAGNESIUM SULFATE IN WATER 2 GM/50 ML PIGGYBACK IV ×2 (22:35→23:47)
[2024-07-17] MEDS: levETIRAcetam 500 MG TABLET PO (23:48)
[2024-07-17] MEDS: LORAZEPAM 2 MG 2 EACH PO (23:49)
[2024-07-18] VITALS: BP 117/61; PULSE 65; PULSE 67; RESP 17; TEMP 36.6; O2SAT 95
[2024-07-18] MEDS: MAGNESIUM SULFATE IN WATER 2 GM/50 ML PIGGYBACK IV (02:28)
[2024-07-18] MEDS: POTASSIUM CHLORIDE 20MEQ TAB 40 MEQ PO (02:28)
--- NOTE | 2024-07-18 03:22 | P.HP_ITS ---
<Statement entered by Vitor Lopez MD - 07/19/24 22:59> Personally evaluated patient and agree with plan of care as outlined by the COIL INSPECTOR. History of Present Illness *Admission Date: 07/17/24 *Reason for visit:: Cough, nausea *History of present illness: The patient is a 59-year-old male with a past medical history of COPD (on home inhalers), current tobacco use (40 pack-years), alcoholic pancreatitis, malnutrition, and prior electrolyte imbalances, who presented to the emergency department (ED) with a 5-day history of cough and nausea. He reports being diagnosed with bronchitis at [facility] prior to this visit and started on doxycycline, with which he states he has been compliant. He denies fever, chills, headache, visual disturbances, chest pain, back pain, abdominal pain, vomiting, or dysuria. Of note, he completed inpatient alcohol rehab and was last admitted for alcohol intoxication on 06/15/2024 per records; he denies current alcohol use. In the ED, he was alert, oriented, and cooperative, with stable hemodynamics. Physical exam was unremarkable. Labs showed no leukocytosis (WBC 10.0), mild anemia (Hgb 12.1, Hct 35.7), hypokalemia (K 2.5), hypocalcemia (Ca 5.1), low CO2 (17), low BUN (5), low creatinine (0.40, eGFR 220), low glucose (66), and hypoalbuminemia (albumin 2.0, total protein 4.0). SARS-CoV-2, influenza A, and influenza B PCRs were negative. Differential diagnosis included bronchitis, COPD exacerbation, and less likely COVID-19, influenza, or other infectious processes. Initial ED interventions included DuoNeb for cough and Zofran for nausea, with potassium and calcium repletion (oral and IV calcium gluconate). Chest imaging, informally interpreted by the ED provider, showed no acute process (pending final read). Given persistent symptoms despite outpatient antibiotics, history of COPD, and significant electrolyte derangements in the context of malnutrition, the patient warrants inpatient admission for further management and monitoring. [facility] Disclaimer: The information contained in this section may have been updated after the patient was seen, as this information can be updated by other users. Medical History Substance use disorder Closed fracture of head of left ulna Hyponatremia Chronic pain Chronic pancreatitis Piloerection Paresthesias Weakness Nausea, vomiting, and diarrhea Abdominal pain, chronic, epigastric Periumbilical abdominal pain Cough Lung nodule Acute on chronic pancreatitis Acute on chronic pancreatitis Hypochloremia Hearing loss Pancreatic pseudocyst Chronic alcohol abuse Bipolar 1 disorder Seizures Abdominal aneurysm Excessive cerumen in left ear canal SBO (small bowel obstruction) Acute pancreatitis Cachexia Acute on chronic pancreatitis Gastrostomy tube dependent Metastatic non-small cell lung cancer Severe protein-calorie malnutrition Lung cancer metastatic to bone Abdominal pain Pancreatic pseudocyst Abdominal pain Bone marrow disorder Cirrhosis COPD (chronic obstructive pulmonary disease) GERD (gastroesophageal reflux disease) Gastric outlet obstruction History of lung cancer Pancreatic pseudocyst Alcoholic pancreatitis Anxiety History of lung cancer Alcohol abuse Pancreatitis, acute Gallstone pancreatitis Pancreatitis Hypokalemia Surgical History History of local excision of skin lesion History of aortic aneurysm repair History of cholecystectomy Hx of cholecystectomy Family History Other Cancer of lung Emphysema lung Social History Smoking Status: Current every day smoker tobacco type: cigarettes packs per day : 3 alcohol intake: former substance use type: denies use current occupational status: unemployed and disabled Travel in the last 8 weeks: None household members: family housing: house current occupational exposures/hazards: No caffeine: No Have you lived/traveled outside [place] in past 30 days?: No Contact w/someone who lives/traveled outside [place] past 30 days?: No Exposure to someone with infectious disease in past 14 days?: No Do you have a fever (greater than 100.4 F or 38 C)?: No Have you tested positive for COVID-19: No Exposed to someone with COVID-19 in past 14 days?: No Do you have a sore throat?: No Do you have a cough?: No Do you have any weakness?: No Do you have any diarrhea?: No Are you experiencing any unusual bleeding?: No Do you have any muscle aches/pain?: No Do you have any abdominal pain?: No Are you experiencing loss of taste or smell?: No Other Medical History Have you received the Flu Vaccine for this season: Yes Have you received the Pneumonia Vaccine: No Review of Systems Review of Systems Review of systems (narrative): 13 point review of systems negative except as listed in HPI Meds Home Medications and Allergies Home Medications ?Medication ?Instructions ?Recorded ?Confirmed ?Type folic acid 1 mg tablet 1 mg PO DAILY #100 tabs 12/01/23 07/17/24 Rx thiamine HCl (vitamin B1) 100 mg 100 mg PO DAILY #100 tabs 12/01/23 07/17/24 Rx tablet albuterol sulfate 90 mcg/actuation 1 inh inhalation Q4HP PRN 02/12/24 07/17/24 Rx breath activated powder Shortness Of Breath #1 ea inhaler,sensor fluticasone propionate 50 2 spray intranasal BID 04/14/24 07/17/24 History mcg/actuation nasal spray,suspension (Flonase Allergy Relief) [id number] 3 cap PO BIDWMEAL 04/14/24 07/17/24 History 36,000-114,000-180,000 unit capsule,delay rel sucralfate 1 gram tablet (Carafate) 1 g PO BID 04/14/24 07/17/24 History levetiracetam 500 mg tablet 500 mg PO BID #60 tabs 04/26/24 07/17/24 Rx lorazepam 2 mg tablet 2 mg PO BIDP PRN Anxiety #60 tabs 04/28/24 07/17/24 Rx ascorbic acid (vitamin C) 250 mg 250 mg PO DAILY #100 tabs 05/07/24 07/17/24 Rx tablet omeprazole 40 mg capsule,delayed 40 mg PO HS #30 caps 05/17/24 07/17/24 Rx release sodium chloride 1,000 mg soluble 1,000 mg PO BIDWMEAL 30 days #60 05/24/24 07/17/24 Rx tablet tabs benzonatate 100 mg capsule 100 mg PO BID PRN cough #20 caps 07/09/24 07/17/24 Rx doxycycline hyclate 100 mg tablet 100 mg PO BID #20 tabs 07/09/24 07/17/24 Rx trazodone 100 mg tablet 100 mg PO DAILY 07/09/24 07/17/24 History oxycodone 10 mg tablet 10 mg PO BIDP PRN Moderate Pain 07/12/24 07/17/24 Rx (Scale Score 5-6) #60 tabs New Prescriptions to Start Prescriptions: Allergies Allergy/AdvReac Type Severity Reaction Status Date / Time cephalexin (From Keflex) Allergy Mild Hives Verified 07/09/24 14:06 sulfamethoxazole (From Allergy Unknown Hives Verified 07/09/24 14:06 BACTRIM) trimethoprim (From BACTRIM) Allergy Unknown Hives Verified 07/09/24 14:06 Exam Data for Last 24 hours Vital signs and Labs for Last 24 Hours: Temp Pulse Resp BP Pulse Ox O2 Del Method 97.8 F 67 17 117/61 95 Room Air 07/18/24 00:00 07/18/24 00:00 07/18/24 00:00 07/18/24 00:00 07/18/24 00:00 07/18/24 00:00 Laboratory Results - last 24 hr 07/17/24 19:32: WBC 10.0, RBC 3.94 L, Hgb 12.1 L, Hct 35.7 L, MCV 90.6, MCH 30.7, MCHC 33.9, RDW 12.6, Plt Count 211, MPV 10.5 H, Neut % (Auto) 74.0, Lymph % (Auto) 15.5, [place] % (Auto) 7.2, Eos % (Auto) 2.2, Baso % (Auto) 0.5, Neut # (Auto) 7.4, Lymph # (Auto) 1.6, [place] # (Auto) 0.7, Eos # (Auto) 0.2, Baso # (Auto) 0.1, Sodium 139, Potassium 2.5 L*, Chloride 119 H, Carbon Dioxide 17 L, Anion Gap 5.5, BUN 5 L, Creatinine 0.40 L, Estimated Creat Clear 182, Estimated GFR 220, Est GFR ( Amer) 266, Glucose 66 L, Calcium 5.1 L*, Magnesium 1.0 L, Total Bilirubin 0.2, AST 16 L, ALT 17, Alkaline Phosphatase 71, Total Protein 4.0 L D, Albumin 2.0 L, Globulin 2.0, Albumin/Globulin Ratio 1.0 L, Plasma/Serum Alcohol < 10 07/17/24 19:51: SARS-CoV-2 (PCR) Not detected, Influenza A Untype (PCR) Not detected, Influenza Type B (PCR) Not detected I & O for Last 24 hours: Intake & Output 07/15/24 07/16/24 07/17/24 07/18/24 23:59 23:59 23:59 23:59 Intake Total 50 / 50 Output Total 400 / 400 Balance -400 / -350 50 / 50 Weight 62.505 kg Constitutional Constitutional: no acute distress *Routine HEENT Exam Head: Present normocephalic Eye: Present EOMI and PERRL ENT: Present mucous membranes moist *Routine Neck Exam Neck: Present supple; Absent lymphadenopathy *Routine Respiratory Exam Respiratory: Present CTA bilaterally *Routine Cardiovascular Exam Cardiovascular: Present RRR *Routine Abdominal Exam Abdominal: Present soft and normoactive bowel sounds; Absent tenderness *Routine Rectal Exam Rectal:: deferred *Routine Genitalia Exam Genitalia:: deferred *Routine Extremities Exam Extremities: Absent cyanosis, clubbing or edema *Routine Skin Exam Skin: Present warm; Absent rash *Routine Neurological Exam Neurological: Present alert and oriented X3 Assessment and Plan *Assessment and plan (1) Hypokalemia: Status: Acute Category: Medical Code(s): E87.6 - Hypokalemia (2) Chronic hyponatremia: Status: Acute Category: Medical Code(s): E87.1 - Hypo-osmolality and hyponatremia (3) Lung nodule: Status: Acute Category: Medical Code(s): R91.1 - Solitary pulmonary nodule (4) Chronic pancreatitis due to chronic alcoholism: Status: Acute Category: Medical Code(s): K86.0 - Alcohol-induced chronic pancreatitis; F10.20 - Alcohol dependence, uncomplicated (5) Malnutrition compromising bodily function: Status: Acute Category: Medical Code(s): E46 - Unspecified protein-calorie malnutrition (6) COPD (chronic obstructive pulmonary disease): Status: Acute Category: Medical Code(s): J44.9 - Chronic obstructive pulmonary disease, unspecified (7) Chronic alcohol abuse: Status: Acute Category: Medical Code(s): F10.10 - Alcohol abuse, uncomplicated (8) Pancreatic pseudocyst: Status: Acute Category: Medical Code(s): K86.3 - Pseudocyst of pancreas Plan * Cough (likely bronchitis vs. COPD exacerbation) * Pertinent Info: 5 days of cough and nausea, diagnosed as bronchitis at [facility], on doxycycline with reported compliance. No fever, leukocytosis (WBC 10.0), or infiltrates on informal CXR read (pending final). COPD history and 40 pack-year smoking raise exacerbation risk. SARS-CoV-2 and influenza negative. * Continue doxycycline 100 mg PO BID x 7 days total for bronchitis coverage (assuming Day 5 now). * DuoNeb (albuterol/ipratropium) q6h for bronchodilation, started in ED; assess response with respiratory rate and O2 sat. * Order sputum culture if productive cough persists to rule out resistant organism. * Await final CXR read; consider chest CT if no improvement or atypical features emerge. * Smoking cessation counseling with nicotine replacement (patch) offered. * Electrolyte imbalances * Pertinent Info: Hypokalemia (K 2.5), hypocalcemia (Ca 5.1), low CO2 (17, likely metabolic acidosis with respiratory compensation), low glucose (66). Likely tied to malnutrition and prior alcohol use; no vomiting/diarrhea reported to explain losses. * Hypokalemia: IV KCl 40 mEq over 4h x 1 (central line if needed), then PO KCl 20 mEq BID; recheck K q8h, target >3.5. * Hypocalcemia: IV calcium gluconate 1 g over 1h (started in ED), then PO calcium carbonate 1 g TID; recheck Ca q12h, adjust for albumin (corrected Ca ~5.9 with albumin 2.0). * Low CO2: Consider ABG to confirm metabolic acidosis (suspect poor nutrition vs. early alcoholic ketoacidosis despite sobriety); IV bicarbonate if pH <7.2. * Hypoglycemia: PO glucose gel 15 g x 1 if symptomatic (asymptomatic now); monitor glucose q6h, refeed with diet as tolerated. * Add magnesium and phosphorus levels to assess refeeding risk; replete PRN. * Malnutrition * Pertinent Info: Albumin 2.0, total protein 4.0, low BUN (5), low creatinine (0.40, eGFR 220), history of alcoholic pancreatitis and rehab. Suggests chronic protein-calorie deficiency. * Start regular diet, advance as tolerated; consult nutrition for high- calorie/protein plan (goal 25-30 kcal/kg). * Thiamine 100 mg IV daily x 3 days, then PO; add multivitamin daily. * Monitor for refeeding syndrome (check Mg, Phos, K q12h x 72h); slow refeeding if labs decline. * Social work consult for post-discharge nutrition support. * COPD (stable chronic) * Pertinent Info: No acute exacerbation signs (no wheezing, hypoxia reported), but cough could signal early flare. Home inhaler regimen unspecified. * Continue DuoNeb q6h * O2 sat monitoring; titrate O2 PRN to SpO2 >90% if hypoxic (baseline unknown). * Pulmonary function testing as outpatient if not recently done. * History of alcohol use * Pertinent Info: Recent rehab, last intoxication admission 06/15/2024, denies current use. Labs (low albumin, electrolytes) reflect chronic effects. * Monitor for withdrawal (CIWA q shift x 24h), though unlikely at 5 days sober. * Addiction medicine consult for relapse prevention strategies. * Serum ethanol level if withdrawal suspected (not ordered in ED). * Mild anemia * Pertinent Info: Hgb 12.1, Hct 35.7, RBC 3.94; likely chronic (malnutrition, inflammation) vs. early blood loss (no overt bleeding). * Monitor CBC q48h; check iron panel, B12, folate if persistent. * No transfusion unless Hgb <7 or symptomatic. * Supportive care * Zofran 4 mg IV q8h PRN nausea (started in ED). * DVT prophylaxis: Subcu Lovenox * Strict I/Os, daily weights for fluid status. * Family updated; confirm sobriety history with collaterals if needed. Disposition: The patient will be admitted to the medical floor under the hospitalist service for management of persistent cough (bronchitis vs. early COPD exacerbation), electrolyte imbalances, and malnutrition in the setting of COPD and prior alcohol use. He requires inpatient monitoring for electrolyte repletion, nutritional support, and symptom control, with an anticipated length of stay of 3-5 days, pending resolution of nausea, cough improvement, and lab stability. Discharge planning will include outpatient pulmonary follow-up, nutrition support, and addiction counseling to reinforce sobriety. Goals of care discussion if clinical decline occurs, though not anticipated given current stability.
[2024-07-18 04:00] VITALS: BP 119/61; PULSE 66; PULSE 70; RESP 16; TEMP 36.7; O2SAT 94; BMI 20.9
--- NOTE | 2024-07-18 06:46 | PC.NURSE ---
Pt A&OX4 and has tolerated room air. Lung sounds clear and bowel sounds active. Pt has had potassium and magnesium replaced this shift. He currently has LR going at 50ml/hr. He has ambulated with standby assist. no complaints at this time, call light within reach.
[2024-07-18 08:00] VITALS: BP 113/63; PULSE 67; PULSE 80; RESP 19; TEMP 36.3; O2SAT 90
[2024-07-18] MEDS: FLUTICASONE PROP 50MCG NASAL SPRAY 16GM 2 SPRAY NS (08:50)
[2024-07-18] MEDS: LIPASE/PROTEASE/AMYLASE 1 EACH CAPSULE.DR 3 EACH PO (08:50)
[2024-07-18] MEDS: LORazepam 1MG TABLET 2 MG PO (08:50)
[2024-07-18] MEDS: DOXYCYCLINE HYCL 100 MG TABLET PO (08:51)
[2024-07-18] MEDS: levETIRAcetam 500 MG TABLET PO (08:51)
[2024-07-18] MEDS: THIAMINE HCL 100 MG in 0.9 % SODIUM CHLORIDE 50 ML 204 MG IV (08:51)
[2024-07-18] MEDS: ENOXAPARIN 40MG/0.4ML SYRINGE 40 MG SUBCUT (08:51)
[2024-07-18] MEDS: OYSTER SHELL CALCIUM (ELEMENTAL) 500MG TAB 1000 MG PO ×2 (08:51→13:14)
[2024-07-18] MEDS: GUAIFENESIN/DEXTROMETHORPHAN 200MG/20MG 10ML UDC 10 ML PO (10:52)
[2024-07-18 11:21] LABS: Anion Gap 13.7 mEq/L (5-15); Basophils # 0.1 K/mm3 (0-0.2); Basophils % 0.8 % (0.1-2.0); Blood Urea Nitrogen 10 mg/dl (9-20); Carbon Dioxide 18 mmol/L (22.0-30.0); Chloride 108 mmol/L (98-107); Creatinine Clearance Estimated 88 mL/min (50-200); Eosinophils # 0.2 K/mm3 (0.0-0.4); Eosinophils % 2.2 % (0.1-12.0); Estimated Glomerular Filt Rate 99 ml/min (>60); GFR (African American) 120 ML/MIN (>60); Glucose 110 mg/dl (74-100); Lymphocytes # 1.3 K/mm3 (0.7-4.5); Lymphocytes % 17.6 % (10-50); Magnesium 2.8 mg/dl (1.6-2.3); Mean Corpuscular HGB Conc 34.2 g/dL (31.8-35.4); Mean Corpuscular Hemoglobin 31.1 pg (27.0-31.2); Mean Corpuscular Volume 90.9 fl (80-94); Mean Platelet Volume 10.8 fl (7.4-10.4); Monocytes # 0.5 K/mm3 (0.1-1.0); Monocytes % 6.9 % (1.7-9.3); Neutrophils # 5.5 K/mm3 (1.8-7.8); Phosphorous 3.1 mg/dl (2.5-4.5); Platelet Count 209 K/mm3 (142-424); Red Blood Count 4.18 M/mm3 (4.60-6.20); Red Cell Distribution Width 12.8 % (11.5-17.5); Sodium 133 mmol/L (136-145); White Blood Count 7.6 K/mm3 (4.8-10.8)
[2024-07-18 11:34] LABS: Potassium 6.7 mmoL/L (3.5-5.1)
--- NOTE | 2024-07-18 11:52 | ECG_ITS ---
APPROVED REPORT Exam: Resting ECG HR:77 bpm ECG Measurements Heart Rate 77 AXES IN 150 P 81 QRSd 85 QRS 81 QT 365 T 81 QTc 397 Conclusion SINUS RHYTHM NORMAL ECG UNCONFIRMED REPORT Electronically signed by : Nelson Regan MD 07/18/2024 16:10:41
[2024-07-18 12:00] VITALS: PULSE 70
--- NOTE | 2024-07-18 12:00 | PC.NURSE ---
Called Lab to re-order a re-draw on patient's BMP this AM per .
[2024-07-18 12:04] LABS: POC Glucose,Bedside 118 (70-110)
[2024-07-18] MEDS: predniSONE 20MG TAB 40 MG PO (13:13)
[2024-07-18 14:19] LABS: Potassium 5.7 mmoL/L (3.5-5.1)
[2024-07-18 14:20] LABS: Free T4 (Free Thyroxine) 1.36 ng/dl (0.78-2.19)
[2024-07-18] MEDS: INSULIN HUMAN REGULAR 100 UNITS/ML 10ML VIAL 10 UNIT IVP (14:27)
[2024-07-18] MEDS: DEXTROSE 50% 50ML SYRINGE (CRASH CART) 50 ML IVP (14:27)
[2024-07-18] MEDS: IPRATROPIUM/ALBUTEROL 3 ML NEB IH (14:42)
[2024-07-18 14:43] VITALS: PULSE 76; PULSE 78
[2024-07-18 14:47] LABS: Intact Parathyroid Hormone 19.3 pg/mL (7.5-53.5)
[2024-07-18 15:05] LABS: Thyroid Stimulating Hormone 1.33 uIU/mL (0.465-4.68)
--- NOTE | 2024-07-18 15:19 | EXP.DC.SUM ---
General Admission date:: 07/17/24 HPI HPI HPI: The patient is a 59-year-old male with a past medical history of COPD (on home inhalers), current tobacco use (40 pack-years), alcoholic pancreatitis, malnutrition, and prior electrolyte imbalances, who presented to the emergency department (ED) with a 5-day history of cough and nausea. He reports being diagnosed with bronchitis at [place] [facility] prior to this visit and started on doxycycline, with which he states he has been compliant. He denies fever, chills, headache, visual disturbances, chest pain, back pain, abdominal pain, vomiting, or dysuria. Of note, he completed inpatient alcohol rehab and was last admitted for alcohol intoxication on 06/15/2024 per records; he denies current alcohol use. In the ED, he was alert, oriented, and cooperative, with stable hemodynamics. Physical exam was unremarkable. Labs showed no leukocytosis (WBC 10.0), mild anemia (Hgb 12.1, Hct 35.7), hypokalemia (K 2.5), hypocalcemia (Ca 5.1), low CO2 (17), low BUN (5), low creatinine (0.40, eGFR 220), low glucose (66), and hypoalbuminemia (albumin 2.0, total protein 4.0). SARS-CoV-2, influenza A, and influenza B PCRs were negative. Differential diagnosis included bronchitis, COPD exacerbation, and less likely COVID-19, influenza, or other infectious processes. Initial ED interventions included DuoNeb for cough and Zofran for nausea, with potassium and calcium repletion (oral and IV calcium gluconate). Chest imaging, informally interpreted by the ED provider, showed no acute process (pending final read). Given persistent symptoms despite outpatient antibiotics, history of COPD, and significant electrolyte derangements in the context of malnutrition, the patient warrants inpatient admission for further management and monitoring. Hospital Course Hospital Course Hospital Course: Richard Casarez is a 59 year old male with a smoking history who presented with persistent cough and was admitted for COPD exacerbation. #COPD exacerbation - Improved with Duoneb and Pulmicort breathing treatments, steroids. - Discharged on room air with Trelegy 100 and prednisone 40mg for 4 more days. #Former alcohol use disorder - Successfully complete inpatient rehab for alcohol cessation, he was congratulated! Exam Data for Last 24 hours Vital signs and Labs for Last 24 Hours: Temp Pulse Resp BP Pulse Ox O2 Del Method O2 Flow Rate 97.4 F L 78 19 113/63 90 L Room Air 2 07/18/24 08:00 07/18/24 14:43 07/18/24 08:00 07/18/24 08:00 07/18/24 08:00 07/18/24 15:00 07/18/24 08:00 Laboratory Results - last 24 hr 07/17/24 19:32: WBC 10.0, RBC 3.94 L, Hgb 12.1 L, Hct 35.7 L, MCV 90.6, MCH 30.7, MCHC 33.9, RDW 12.6, Plt Count 211, MPV 10.5 H, Neut % (Auto) 74.0, Lymph % (Auto) 15.5, [place] % (Auto) 7.2, Eos % (Auto) 2.2, Baso % (Auto) 0.5, Neut # (Auto) 7.4, Lymph # (Auto) 1.6, [place] # (Auto) 0.7, Eos # (Auto) 0.2, Baso # (Auto) 0.1, Sodium 139, Potassium 2.5 L*, Chloride 119 H, Carbon Dioxide 17 L, Anion Gap 5.5, BUN 5 L, Creatinine 0.40 L, Estimated Creat Clear 182, Estimated GFR 220, Est GFR ( Amer) 266, Glucose 66 L, Calcium 5.1 L*, Magnesium 1.0 L, Total Bilirubin 0.2, AST 16 L, ALT 17, Alkaline Phosphatase 71, Total Protein 4.0 L D, Albumin 2.0 L, Globulin 2.0, Albumin/Globulin Ratio 1.0 L, Plasma/Serum Alcohol < 10 07/17/24 19:51: SARS-CoV-2 (PCR) Not detected, Influenza A Untype (PCR) Not detected, Influenza Type B (PCR) Not detected 07/18/24 10:18: WBC 7.6, RBC 4.18 L, Hgb 13.0 L, Hct 38.0 L, MCV 90.9, MCH 31.1, MCHC 34.2, RDW 12.8, Plt Count 209, MPV 10.8 H, Neut % (Auto) 72.0, Lymph % (Auto) 17.6, [place] % (Auto) 6.9, Eos % (Auto) 2.2, Baso % (Auto) 0.8, Neut # (Auto) 5.5, Lymph # (Auto) 1.3, [place] # (Auto) 0.5, Eos # (Auto) 0.2, Baso # (Auto) 0.1, Sodium 133 L, Potassium 6.7 H* D, Chloride 108 H, Carbon Dioxide 18 L, Anion Gap 13.7, BUN 10 D, Creatinine 0.80 D, Estimated Creat Clear 88, Estimated GFR 99, Est GFR ( Amer) 120 D, Glucose 110 H D, Calcium 9.0, Phosphorus 3.1, Magnesium 2.8 H D 07/18/24 11:51: POC Glucose 118 H 07/18/24 12:38: Potassium 5.7 H, TSH 1.33, Free T4 1.36, PTH Intact 19.3 I & O for Last 24 hours: Intake & Output 07/15/24 07/16/24 07/17/24 07/18/24 23:59 23:59 23:59 23:59 Intake Total 340 / 340 Output Total 400 / 400 2300 / 2300 Balance -400 / -350 -1960 / -1960 Weight 62.505 kg 62.505 kg Constitutional Constitutional: no acute distress *Routine HEENT Exam Head: Present normocephalic Eye: Present EOMI and PERRL ENT: Present mucous membranes moist *Routine Neck Exam Neck: Present supple; Absent lymphadenopathy *Routine Respiratory Exam Respiratory: Present CTA bilaterally *Routine Cardiovascular Exam Cardiovascular: Present RRR *Routine Abdominal Exam Abdominal: Present soft and normoactive bowel sounds; Absent tenderness *Routine Extremities Exam Extremities: Absent cyanosis, clubbing or edema *Routine Skin Exam Skin: Present warm; Absent rash *Routine Neurological Exam Neurological: Present alert and oriented X3 Results Data Completed and Pending Labs on day of discharge: Labs from last 24 hours 07/18/24 07/18/24 07/18/24 12:38 11:51 10:18 WBC 7.6 RBC 4.18 L Hgb 13.0 L Hct 38.0 L MCV 90.9 MCH 31.1 MCHC 34.2 RDW 12.8 Plt Count 209 MPV 10.8 H Neut % (Auto) 72.0 Lymph % (Auto) 17.6 [place] % (Auto) 6.9 Eos % (Auto) 2.2 Baso % (Auto) 0.8 Neut # (Auto) 5.5 Lymph # (Auto) 1.3 [place] # (Auto) 0.5 Eos # (Auto) 0.2 Baso # (Auto) 0.1 Sodium 133 L Potassium 5.7 H 6.7 H* D Chloride 108 H Carbon Dioxide 18 L Anion Gap 13.7 BUN 10 D Creatinine 0.80 D Estimated Creat Clear 88 Estimated GFR 99 Est GFR ( Amer) 120 D Glucose 110 H D POC Glucose 118 H Calcium 9.0 Phosphorus 3.1 Magnesium 2.8 H D Total Bilirubin AST ALT Alkaline Phosphatase Total Protein Albumin Globulin Albumin/Globulin Ratio TSH 1.33 Free T4 1.36 PTH Intact 19.3 Plasma/Serum Alcohol SARS-CoV-2 (PCR) Influenza A Untype (PCR) Influenza Type B (PCR) 07/17/24 07/17/24 19:51 19:32 WBC 10.0 RBC 3.94 L Hgb 12.1 L Hct 35.7 L MCV 90.6 MCH 30.7 MCHC 33.9 RDW 12.6 Plt Count 211 MPV 10.5 H Neut % (Auto) 74.0 Lymph % (Auto) 15.5 [place] % (Auto) 7.2 Eos % (Auto) 2.2 Baso % (Auto) 0.5 Neut # (Auto) 7.4 Lymph # (Auto) 1.6 [place] # (Auto) 0.7 Eos # (Auto) 0.2 Baso # (Auto) 0.1 Sodium 139 Potassium 2.5 L* Chloride 119 H Carbon Dioxide 17 L Anion Gap 5.5 BUN 5 L Creatinine 0.40 L Estimated Creat Clear 182 Estimated GFR 220 Est GFR ( Amer) 266 Glucose 66 L POC Glucose Calcium 5.1 L* Phosphorus Magnesium 1.0 L Total Bilirubin 0.2 AST 16 L ALT 17 Alkaline Phosphatase 71 Total Protein 4.0 L D Albumin 2.0 L Globulin 2.0 Albumin/Globulin Ratio 1.0 L TSH Free T4 PTH Intact Plasma/Serum Alcohol < 10 SARS-CoV-2 (PCR) Not detected Influenza A Untype (PCR) Not detected Influenza Type B (PCR) Not detected DS: Diagnosis Discharge Diagnosis (1) Hypokalemia: Status: Acute Code(s): E87.6 - Hypokalemia (2) Chronic hyponatremia: Status: Acute Code(s): E87.1 - Hypo-osmolality and hyponatremia (3) Lung nodule: Status: Acute Code(s): R91.1 - Solitary pulmonary nodule (4) Chronic pancreatitis due to chronic alcoholism: Status: Acute Code(s): K86.0 - Alcohol-induced chronic pancreatitis; F10.20 - Alcohol dependence, uncomplicated (5) Malnutrition compromising bodily function: Status: Acute Code(s): E46 - Unspecified protein-calorie malnutrition (6) COPD (chronic obstructive pulmonary disease): Status: Acute Code(s): J44.9 - Chronic obstructive pulmonary disease, unspecified (7) Chronic alcohol abuse: Status: Acute Code(s): F10.10 - Alcohol abuse, uncomplicated (8) Pancreatic pseudocyst: Status: Acute Code(s): K86.3 - Pseudocyst of pancreas Meds Home Medications and Allergies Home Medications ?Medication ?Instructions ?Recorded ?Confirmed ?Type folic acid 1 mg tablet 1 mg PO DAILY #100 tabs 12/01/23 07/21/24 Rx thiamine HCl (vitamin B1) 100 mg 100 mg PO DAILY #100 tabs 12/01/23 07/21/24 Rx tablet albuterol sulfate 90 mcg/actuation 1 inh inhalation Q4HP PRN 02/12/24 07/21/24 Rx breath activated powder Shortness Of Breath #1 ea inhaler,sensor fluticasone propionate 50 2 spray intranasal BID 04/14/24 07/21/24 History mcg/actuation nasal spray,suspension (Flonase Allergy Relief) sucralfate 1 gram tablet (Carafate) 1 g PO BID 04/14/24 07/21/24 History levetiracetam 500 mg tablet 500 mg PO BID #60 tabs 04/26/24 07/21/24 Rx lorazepam 2 mg tablet 2 mg PO BIDP PRN Anxiety #60 tabs 04/28/24 07/21/24 Rx ascorbic acid (vitamin C) 250 mg 250 mg PO DAILY #100 tabs 05/07/24 07/21/24 Rx tablet sodium chloride 1,000 mg soluble 1,000 mg PO BIDWMEAL 30 days #60 05/24/24 07/21/24 Rx tablet tabs benzonatate 100 mg capsule 100 mg PO BID PRN cough #20 caps 07/09/24 07/21/24 Rx trazodone 100 mg tablet 100 mg PO HS 07/09/24 07/21/24 History oxycodone 10 mg tablet 10 mg PO BIDP PRN Moderate Pain 07/12/24 07/17/24 Rx (Scale Score 5-6) #60 tabs fluticasone fur. 100 mcg-umeclid 1 inh inhalation DAILY 30 days #60 07/18/24 07/21/24 Rx 62.5 mcg-vilant 25 mcg ea inhalat.powder (Trelegy Ellipta) ipratropium 0.5 mg-albuterol 3 mg 3 ml inhalation Q6HP PRN Shortness 07/18/24 07/21/24 Rx (2.5 mg base)/3 mL nebulization Of Breath 30 days #180 mL soln pantoprazole 40 mg tablet,delayed 40 mg PO DAILY 07/18/24 07/21/24 History release prednisone 20 mg tablet 40 mg (2 x 20 mg) PO DAILY 4 days 07/18/24 07/21/24 Rx #8 tabs levofloxacin 500 mg tablet 500 mg PO DAILY 10 days #10 tabs 07/21/24 07/21/24 Rx trazodone 100 mg tablet 100 mg PO DAILY #90 tabs 07/21/24 07/21/24 Rx [id number] 2 cap PO BIDWMEAL #360 caps 07/28/24 Rx 36,000-114,000-180,000 unit capsule,delay rel New Prescriptions to Start Prescriptions: [id number] [Trelegy Ellipta] Vitor Lopez ipratropium-albuterol Vitor Lopez prednisone Vitor Lopez Allergies Allergy/AdvReac Type Severity Reaction Status Date / Time cephalexin (From Keflex) Allergy Mild Hives Verified 07/21/24 15:14 sulfamethoxazole (From Allergy Unknown Hives Verified 07/21/24 15:14 BACTRIM) trimethoprim (From BACTRIM) Allergy Unknown Hives Verified 07/21/24 15:14 Discharge Plan Disposition Patient Disposition: Home, Self-Care Condition: Fair Follow up Plan Follow up with: Richard Edgar MD [Primary Care Provider] - Enter time for follow up (please call for appointment) Prescriptions/Medication Reconciliation: New ipratropium-albuterol 0.5 mg-3 mg(2.5 mg base)/3 mL Solution For Nebulization 3 ml inhalation Q6HP PRN (Reason: Shortness Of Breath) 30 Days Qty: 180 0RF Rx Instructions: For COPD exacerbation prednisone 20 mg Tablet 40 mg PO DAILY 4 Days Qty: 8 0RF Trelegy Ellipta 100-62.5-25 mcg Blister With Device 1 inh inhalation DAILY 30 Days Qty: 60 0RF Continued folic acid 1 mg tablet 1 mg PO DAILY Qty: 100 10RF thiamine HCl (vitamin B1) 100 mg tablet 100 mg PO DAILY Qty: 100 10RF albuterol sulfate 90 mcg/actuation aero powdr breath act w/sensor 1 inh IH Q4HP PRN (Reason: Shortness Of Breath) Qty: 1 12RF trazodone 100 mg tablet 100 mg PO HS benzonatate 100 mg capsule 100 mg PO BID PRN (Reason: cough) Qty: 20 0RF oxycodone 10 mg tablet 10 mg PO BIDP PRN (Reason: Moderate Pain (Scale Score 5-6)) Qty: 60 0RF levetiracetam 500 mg tablet 500 mg PO BID Qty: 60 2RF lorazepam 2 mg tablet 2 mg PO BIDP PRN (Reason: Anxiety) Qty: 60 3RF ascorbic acid (vitamin C) 250 mg tablet 250 mg PO DAILY Qty: 100 10RF sodium chloride 1,000 mg tablet,soluble 1,000 mg PO BIDWMEAL 30 Days Qty: 60 0RF sucralfate [Carafate] 1 gram tablet 1 g PO BID fluticasone propionate [Flonase Allergy Relief] 50 mcg/actuation spray,suspension 2 spray intranasal BID Rx Instructions: administer into each nostril pantoprazole 40 mg tablet,delayed release (DR/EC) 40 mg PO DAILY No Action trazodone 100 mg tablet 100 mg PO DAILY Qty: 90 3RF levofloxacin 500 mg tablet 500 mg PO DAILY 10 Days Qty: 10 0RF [id number]-lzlquwy 36,000-114,000- 180,000 unit capsule,delayed release(DR/EC) 2 cap PO BIDWMEAL Qty: 360 12RF Problem Reconciliation Problems Reviewed?: Yes Patient Discharge Instructions Patient Instructions: DI for Cough -- Adult, DI for Muscle Weakness Print Language: Armenian Providers Primary Care Provider: Richard Edgar Admit Provider: Vitor Lopez Attending Provider: Vitor Lopez
[2024-07-18 15:52] LABS: Potassium 4.5 mmoL/L (3.5-5.1)
[2024-07-18 16:00] VITALS: BP 120/74; PULSE 110; PULSE 94; RESP 15; TEMP 36.5; O2SAT 95
--- NOTE | 2024-07-20 11:06 | SW/DCPLANNER ---
Phoned patient x2. NO answer and wasnt able to leave a message. 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
== END 2024-07-18 17:38 | disposition home or self-care (01) ==
LOC: ER 21:03 → 2ND 22:06
PROVIDERS: Nurse Practitioner; Nurse Practitioner Family; Admitting Provider Student in an Organized Health Care Education/Training Program; Emergency Provider Student in an Organized Health Care Education/Training Program; PCP Family Medicine; Visit Provider Student in an Organized Health Care Education/Training Program
DX: E87.6 Hypokalemia (principal); E87.1 Hypo-osmolality and hyponatremia; E83.51 Hypocalcemia; J44.1 Chronic obstructive pulmonary disease with (acute) exacerbation; F31.9 Bipolar disorder, unspecified; F10.21 Alcohol dependence, in remission; R91.1 Solitary pulmonary nodule; E46 Unspecified protein-calorie malnutrition; K86.0 Alcohol-induced chronic pancreatitis; F17.210 Nicotine dependence, cigarettes, uncomplicated; Z80.1 Family history of malignant neoplasm of trachea, bronchus and lung; Z79.899 Other long term (current) drug therapy; Z79.891 Long term (current) use of opiate analgesic; Z88.2 Allergy status to sulfonamides; Z85.118 Personal history of other malignant neoplasm of bronchus and lung; Z68.20 Body mass index [BMI] 20.0-20.9, adult
CPT/HCPCS: 36415; 71045; 80048; 80053; 80320; 82962; 83735; 83970; 84100; 84132; 84439; 84443; 85025; 87636; 93005; 94640; 99285; G0378; G0480; J1650; J2405; J3411; J3475; J3480; J7120; J7620

== ENCOUNTER 2024-08-16 12:39 | Outpatient (CLI) | payer MEDICAID, SELFPAY ==
[2024-08-16 13:29] LABS: Albumin Level 4.5 g/dl (3.5-5.0); Chloride 101 mmol/L (98-107); Potassium 4.2 mmoL/L (3.5-5.1); Sodium 135 mmol/L (136-145)
[2024-08-16 13:32] LABS: Alanine Aminotransferase 23 U/L (12-78); Alkaline Phosphatase 75 U/L (38-126); Anion Gap 13.2 mEq/L (5-15); Aspartate Amino Transferase 30 U/L (17-59); Bilirubin,Total 0.4 mg/dl (0.2-1.3); Blood Urea Nitrogen 9 mg/dl (9-20); Carbon Dioxide 25 mmol/L (22.0-30.0); Estimated Glomerular Filt Rate 115 ml/min (>60); GFR (African American) 140 ML/MIN (>60); Globulin 2.3 g/dL (1.3-3.2); Lipase 86 U/L (23-300); Total Protein,Serum 6.8 g/dl (6.3-8.2)
[2024-08-16 13:33] LABS: Calcium 9.1 mg/dl (8.4-10.2); Glucose 122 mg/dl (74-100)
[2024-08-16 14:23] LABS: 25-OH Vitamin D, Total 31.6 ng/mL (30-100)
[2024-08-16 14:56] LABS: Vitamin B12 871 pg/mL (239-931)
== END 2024-08-16 23:59 | disposition home or self-care (01) ==
LOC: LAB 12:40
PROVIDERS: PCP Family Medicine; Visit Provider Family Medicine
DX: E87.1 Hypo-osmolality and hyponatremia (principal)
CPT/HCPCS: 36415; 80053; 82306; 82607; 83690

== ENCOUNTER 2024-08-26 16:39 | Outpatient (CLI) | payer MEDICAID, SELFPAY ==
--- NOTE | 2024-08-26 16:42 | XR_ITS ---
PROCEDURE INFORMATION: Exam: XR Chest Exam date and time: 08/26/2024 4:42 PM Age: 59 years old Clinical indication: Cough and shortness of breath TECHNIQUE: Imaging protocol: Radiologic exam of the chest. Views: 2 views. COMPARISON: 1. CR XR CHEST PORTABLE 07/17/2024 7:55 PM 2. CR XR CHEST 2V 10/09/2023 11:31 AM FINDINGS: Lungs: Unremarkable. No consolidation. Pleural spaces: Unremarkable. No pleural effusion. No pneumothorax. Heart/Mediastinum: Unremarkable. No cardiomegaly. Bones/joints: Unremarkable. IMPRESSION: Stable chest x-ray with no acute disease.
[2024-08-26 20:10] LABS: Coronavirus 19, PCR Not Detected (NotDetected); Influenza A, PCR Not Detected (NotDetected); Influenza B, PCR Not Detected (NotDetected)
== END 2024-08-26 23:59 | disposition home or self-care (01) ==
LOC: RAD 16:40
PROVIDERS: PCP Family Medicine; Visit Provider Student in an Organized Health Care Education/Training Program
DX: R06.02 Shortness of breath (principal); R05.9 Cough, unspecified; R52 Pain, unspecified
CPT/HCPCS: 71046; 87636

== ENCOUNTER 2024-09-20 12:46 | Observation (INO) | payer MEDICAID, SELFPAY ==
[2024-09-20] VITALS (21 sets, daily range): BP systolic 89–148; BP diastolic 56–90; PULSE 77–96; RESP 12–24; TEMP 36.7–36.9; O2SAT 96–100; BMI 20.5
[2024-09-20] MEDS: MVI, ADULT NO.1 WITH VIT K 10 ML, THIAMINE HCL 100 MG, MAGNESIUM SULFATE 2 GM in LACTAT... 125 ML IV (13:20)
[2024-09-20] MEDS: ONDANSETRON 4MG/2ML VIAL 4 MG IV (13:21)
--- NOTE | 2024-09-20 13:38 | ECG_ITS ---
APPROVED REPORT Exam: Resting ECG HR:74 bpm ECG Measurements Heart Rate 74 AXES TX 174 P 81 QRSd 91 QRS 83 QT 359 T 79 QTc 386 Conclusion SINUS RHYTHM NORMAL ECG UNCONFIRMED REPORT Electronically signed by : JUDIE NICHOLAS, 09/23/2024 00:24:45
[2024-09-20 13:45] LABS: Basophils % 0.7 % (0.1-2.0); Eosinophils # 0.1 Kmm3 (0.0-0.4); Eosinophils % 1.8 % (0.1-12.0); Hematocrit 40.5 % (42.0-52.0); Hemoglobin 14.4 g/dL (14.1-18.0); Lymphocytes # 1.7 K/mm3 (0.7-4.5); Lymphocytes % 27.5 % (10-50); Mean Corpuscular HGB Conc 35.6 g/dL (31.8-35.4); Mean Corpuscular Hemoglobin 30.8 pg (27.0-31.2); Mean Corpuscular Volume 86.5 fl (80-94); Mean Platelet Volume 9.9 fl (7.4-10.4); Microscopic, Urine URINE MICROSCOPIC (MICROSCOPIC); Monocytes # 0.6 K/mm3 (0.1-1.0); Monocytes % 10.2 % (1.7-9.3); Neutrophils # 3.6 K/mm3 (1.8-7.8); Neutrophils % 59.3 % (37.0-80.0); Nucleated Red Blood Cells # 0 10^3/uL; Nucleated Red Blood Cells % 0 %; Platelet Count 213 K/mm3 (142-424); Red Blood Count 4.68 M/mm3 (4.60-6.20); White Blood Count 6.1 K/mm3 (4.8-10.8)
--- NOTE | 2024-09-20 13:51 | ED_ITS ---
<Statement entered by Misa Gomez MD - 09/23/24 14:56> I was consulted by the MACI, and we discussed the complexity of problems being addressed. I approved the treatment and management plan for this patient's care in the emergency department, thus performing a substantive portion of the medical decision making. Misa Gomez MD Discharge Plan Disposition Patient Disposition: Admitted Discharge ED Provider: Robert Santana General Adult HPI General Chief complaint: Nausea/Vomiting/Diarrhea Stated complaint: nausea Time Seen by Provider: 09/20/24 12:56 Mode of Arrival: EMS Source of Information: Patient and EMS Description of Symptoms (Recalled from ER Triage Doc. by RN): pt presents to ED with c/o n/v/d that began yesterday. pt is also seeking rehab placement for alcohol withdrawal. pt reports to drinking 4 beers today, but typically he drinks a 12 pack per day. History of Present Illness HPI narrative: patient is a 59-year-old male PMHx alcoholism and tobacco dependence, alcohol- induced pancreatitis, bipolar, seizures, COPD, malnutrition, GERD who presents to the ED with complaints of withdrawal, nausea, vomiting, diarrhea. Patient states that he is withdrawing from Ativan and alcohol. Patient states that he normally drinks 14 beers plus an unknown amount of liquor per day, advises that he takes Ativan 2 mg twice daily each day. Related Data Home Medications ?Medication ?Instructions ?Recorded ?Confirmed fluticasone propionate 50 2 spray intranasal BID 04/14/24 09/09/24 mcg/actuation nasal spray,suspension (Flonase Allergy Relief) sucralfate 1 gram tablet (Carafate) 1 g PO BID 04/14/24 09/09/24 buprenorphine HCl 2 mg sublingual 3 mg sublingual DAILY 08/13/24 09/09/24 tablet Previous Rx's ?Medication ?Instructions ?Recorded folic acid 1 mg tablet 1 mg PO DAILY #100 tabs 12/01/23 thiamine HCl (vitamin B1) 100 mg 100 mg PO DAILY #100 tabs 12/01/23 tablet albuterol sulfate 90 mcg/actuation 1 inh inhalation Q4HP PRN 02/12/24 breath activated powder Shortness Of Breath #1 ea inhaler,sensor ascorbic acid (vitamin C) 250 mg 250 mg PO DAILY #100 tabs 05/07/24 tablet sodium chloride 1,000 mg soluble 1,000 mg PO BIDWMEAL 30 days #60 05/24/24 tablet tabs benzonatate 100 mg capsule 100 mg PO BID PRN cough #20 caps 07/09/24 fluticasone fur. 100 mcg-umeclid 1 inh inhalation DAILY 30 days #60 07/18/24 62.5 mcg-vilant 25 mcg ea inhalat.powder (Trelegy Ellipta) ipratropium 0.5 mg-albuterol 3 mg 3 ml inhalation Q6HP PRN Shortness 07/18/24 (2.5 mg base)/3 mL nebulization Of Breath 30 days #180 mL soln trazodone 100 mg tablet 100 mg PO DAILY #90 tabs 07/21/24 [id number]-[id number]-tzpyrpy 2 cap PO BIDWMEAL #360 caps 07/28/24 36,000-114,000-180,000 unit capsule,delay rel levetiracetam 500 mg tablet 500 mg PO BID #60 tabs 08/09/24 pantoprazole 40 mg tablet,delayed 40 mg PO DAILY #30 tabs 08/18/24 release doxycycline hyclate 100 mg tablet 100 mg PO BID #20 tabs 08/26/24 guaifenesin 400 mg tablet 400 mg PO QID PRN cough #20 tabs 08/26/24 lorazepam 2 mg tablet 2 mg PO BIDP PRN Anxiety #60 tabs 09/03/24 oxycodone 10 mg tablet 10 mg PO BIDP PRN Moderate Pain 09/20/24 (Scale Score 5-6) #60 tabs Allergies Allergy/AdvReac Type Severity Reaction Status Date / Time cephalexin (From Keflex) Allergy Mild Hives Verified 09/09/24 10:11 sulfamethoxazole (From Allergy Unknown Hives Verified 09/09/24 10:11 BACTRIM) trimethoprim (From BACTRIM) Allergy Unknown Hives Verified 09/09/24 10:11 [facility] Disclaimer: The information contained in this section may have been updated after the patient was seen, as this information can be updated by other users. Medical History Substance use disorder Closed fracture of head of left ulna Hyponatremia Chronic pain Chronic pancreatitis Piloerection Paresthesias Weakness Nausea, vomiting, and diarrhea Abdominal pain, chronic, epigastric Periumbilical abdominal pain Cough Lung nodule Acute on chronic pancreatitis Acute on chronic pancreatitis Hypochloremia Hearing loss Pancreatic pseudocyst Chronic alcohol abuse Bipolar 1 disorder Seizures Abdominal aneurysm Excessive cerumen in left ear canal SBO (small bowel obstruction) Acute pancreatitis Cachexia Acute on chronic pancreatitis Gastrostomy tube dependent Metastatic non-small cell lung cancer Severe protein-calorie malnutrition Lung cancer metastatic to bone Abdominal pain Pancreatic pseudocyst Abdominal pain Bone marrow disorder Cirrhosis COPD (chronic obstructive pulmonary disease) GERD (gastroesophageal reflux disease) Gastric outlet obstruction History of lung cancer Pancreatic pseudocyst Alcoholic pancreatitis Anxiety History of lung cancer Alcohol abuse Pancreatitis, acute Gallstone pancreatitis will refer to surgery Pancreatitis Hypokalemia Surgical History History of local excision of skin lesion History of aortic aneurysm repair History of cholecystectomy Hx of cholecystectomy Family History Other Cancer of lung Emphysema lung Social History Smoking Status: Current every day smoker tobacco type: cigarettes packs per day: 3 alcohol intake: former substance use type: denies use current occupational status: unemployed and disabled Travel in the last 8 weeks?: None household members: family housing: house current occupational exposures/hazards: No caffeine: No Have you lived/traveled outside [place] in past 30 days?: No Contact w/someone who lives/traveled outside US past 30 days?: No Exposure to someone with infectious disease in past 14 days?: No Do you have a fever (greater than 100.4 F or 38 C)?: No Have you tested positive for COVID-19?: No Exposed to someone with COVID-19 in past 14 days?: No Do you have a sore throat?: No Do you have a cough?: No Do you have any weakness?: No Do you have any diarrhea?: No Are you experiencing any unusual bleeding?: No Do you have any muscle aches/pain?: No Do you have any abdominal pain?: No Are you experiencing loss of taste or smell?: No Other Medical History Have you received the Flu Vaccine for this season: No Have you received the Pneumonia Vaccine: No ROS Obtained: Yes Systems reviewed as appropriate & no additional complaints except as documented Physical Exam General General appearance: alert Head Head exam: atraumatic and normocephalic Eye Eye exam: Present normal appearance and PERRL ENT ENT exam: Present normal exam Neck Neck exam: Present normal inspection Chest Chest inspection: Present normal inspection and symmetric chest wall rise; Absent tenderness Respiratory Respiratory exam: Present normal lung sounds bilaterally; Absent respiratory distress Cardiovascular Cardiovascular exam: Present regular rate Abdominal Exam Abdominal exam: Present soft and normal bowel sounds; Absent tenderness Extremities Exam Extremities exam: Present normal inspection and full ROM Back Exam Back exam: Present normal inspection and full ROM Neurological Exam Neurological exam: Present alert and oriented X3 Psychiatric Psychiatric exam: Present normal affect and normal mood Skin Skin exam: Present warm and dry Medical Decision Making Medical Records Screening: Per USPSTF and CDC recommendations, given the prevalence of disease in our region, it is our hospital?s policy to screen for HIV and viral Hepatitis for all patients aged 18 and over and those with ongoing risk factors. [place] Inquiry Pt receiving controlled substance: No Vital Signs: 09/20/24 12:48 09/20/24 12:53 09/20/24 13:00 Temperature 98.1 F Temperature Source Oral Pulse Rate 83 85 Pulse Rate [Left Radial] 83 Respiratory Rate 19 15 17 Blood Pressure 104/72 L Blood Pressure [Right Arm] 115/79 Blood Pressure Mean 80 Blood Pressure Mean [Right Arm] 91 02 Sat by Pulse Oximetry 96 98 98 09/20/24 13:30 09/20/24 13:30 09/20/24 13:43 Temperature Temperature Source Pulse Rate 77 77 Pulse Rate [Left Radial] Respiratory Rate 23 16 14 Blood Pressure 89/56 L 89/56 L 110/90 Blood Pressure [Right Arm] Blood Pressure Mean 69 96 Blood Pressure Mean [Right Arm] 02 Sat by Pulse Oximetry 98 98 09/20/24 14:00 09/20/24 14:30 09/20/24 15:00 Temperature Temperature Source Pulse Rate Pulse Rate [Left Radial] Respiratory Rate 12 22 15 Blood Pressure 121/80 99/67 L 93/62 L Blood Pressure [Right Arm] Blood Pressure Mean 105 77 Blood Pressure Mean [Right Arm] 02 Sat by Pulse Oximetry 09/20/24 15:30 09/20/24 16:19 Temperature Temperature Source Pulse Rate Pulse Rate [Left Radial] Respiratory Rate 14 24 Blood Pressure 97/72 L 102/63 L Blood Pressure [Right Arm] Blood Pressure Mean 76 Blood Pressure Mean [Right Arm] 02 Sat by Pulse Oximetry Lab Data Lab Results 09/20/24 13:32: WBC 6.1, RBC 4.68, Hgb 14.4, Hct 40.5 L, MCV 86.5, MCH 30.8, M CHC 35.6 H, RDW 15.0, Plt Count 213, MPV 9.9, Neut % (Auto) 59.3, Lymph % (Auto) 27.5, Wayne % (Auto) 10.2 H, Eos % (Auto) 1.8, Baso % (Auto) 0.7, Neut # (Auto) 3.6, Lymph # (Auto) 1.7, Wayne # (Auto) 0.6, Eos # (Auto) 0.1, Baso # (Auto) 0.0, Sodium 129 L, Potassium 4.2, Chloride 94 L, Carbon Dioxide 26, Anion Gap 13.2, B UN 6 L, Creatinine 0.70, Estimated Creat Clear 98, Estimated GFR 115, Est GFR ( Amer) 140, Glucose 106 H, Calcium 8.8, Total Bilirubin 0.3, AST 39, ALT 19, Alkaline Phosphatase 85, Troponin I < 0.01, NT-Pro-B Natriuret Pep < 20.0, Total Protein 7.6, Albumin 4.9, Globulin 2.7, Albumin/Globulin Ratio 1.8, Urine Color Yellow, Urine Appearance Clear, Urine pH 6.0, Ur Specific [place] <= 1.005, Urine Protein Negative, Urine Glucose (UA) Negative, Urine Ketones Negative, Urine Blood Negative, Urine Nitrate Negative, Urine Bilirubin Negative, Urine Urobilinogen 0.2, Ur Leukocyte Esterase Negative, Urine RBC None, Urine WBC None, Ur Squamous Epith Cells Occasional, Urine Bacteria Trace, Plasma/Serum Alcohol 255 H 09/20/24 14:32: Phosphorus 2.9 09/20/24 13:32 09/20/24 13:32 Orders (Tests/Meds): ED MEDICATIONS Generic Name Dose Route Start Last Admin Trade Name Freq PRN Reason Stop Dose Admin Diazepam 10 mg 09/20/24 14:51 Diazepam 10mg/2ml Syringe IV 10/20/24 14:50 Q1HP PRN CIWA >16 Diazepam 5 mg 09/20/24 14:51 Diazepam 5mg Tablet PO 10/20/24 14:50 Q1HP PRN CIWA Score 8-15 Diazepam 5 mg 09/20/24 14:51 Diazepam 10mg/2ml Syringe IV 10/20/24 14:50 Q1HP PRN CIWA Score 8-15 Diazepam 5 mg 09/20/24 14:51 Diazepam 5mg Tablet PO 10/20/24 14:50 Q6HP PRN CIWA 2-7 Folic Acid 1 mg 09/21/24 09:00 Folic Acid 1mg Tablet PO 10/21/24 08:59 DAILY BUZZ Multivitamins 10 ml/ Thiamine 1,015 mls @ 125 mls/hr 09/20/24 13:15 09/20/24 13:20 HCl 100 mg/ Magnesium Sulfate IV 10/20/24 13:14 125 mls/hr 2 gm/ Lactated Ringer's DAILY BUZZ Administration Multivitamins 10 ml/ Thiamine 1,015 mls @ 125 mls/hr 09/21/24 09:00 HCl 100 mg/ Magnesium Sulfate IV 10/21/24 08:59 2 gm/ Lactated Ringer's DAILY BUZZ Phenobarbital Sodium 130 mg 09/20/24 21:00 Phenobarbital Sod 130mg/Ml Inj IV 10/20/24 20:59 BID BUZZ Sodium Chloride 10 ml 09/20/24 13:02 Sodium Chloride 0.9% 10ml Flush Syringe IV 10/20/24 13:01 NEEDED PRN Maintain IV Site Sodium Chloride 10 ml 09/20/24 13:19 Sodium Chloride 0.9% 10ml Vial IV 10/20/24 13:18 NEEDED PRN to Dilute Lorazepam inj Thiamine HCl 100 mg 09/21/24 09:00 Thiamine 100mg Tablet PO 09/23/24 09:01 DAILY BUZZ Discontinued Medications Generic Name Dose Route Start Last Admin Trade Name Freq PRN Reason Stop Dose Admin Thiamine HCl 100 mg/ Sodium 51 mls @ 204 mls/hr 09/20/24 14:54 Chloride IV 09/20/24 14:55 ONCE ONE Ondansetron HCl 4 mg 09/20/24 13:05 09/20/24 13:21 Ondansetron 4mg/2ml Vial IV 09/20/24 13:06 4 mg ONCE ONE Administration Phenobarbital Sodium 130 mg 09/20/24 14:46 09/20/24 15:02 Phenobarbital Sod 130mg/Ml Inj IV 09/20/24 14:47 130 mg ONCE ONE Administration ORDERS Category Date Time Status Consult Building Supervisor [CONS] Routine Cons 09/20/24 13:00 Active BNP [NT Pro Brain Natriuretic Pep.] Stat Lab 09/20/24 13:32 Completed Blood alcohol [Ethyl Alcohol] Stat Lab 09/20/24 13:32 Completed CBC w/Auto Diff [Complete Blood Count Auto Diff] Stat Lab 09/20/24 13:32 Completed CMP [Comprehensive Metabolic Panel] Stat Lab 09/20/24 13:32 Completed Complete Blood Count Auto Diff AMLAB Lab 09/21/24 06:00 Ordered Comprehensive Metabolic Panel AMLAB Lab 09/21/24 06:00 Ordered Magnesium AMLAB Lab 09/21/24 06:00 Ordered Phosphorous Routine Lab 09/20/24 14:32 Completed Prothrombin Time INR Routine Lab 09/20/24 14:32 Received Trop I [Troponin I] Stat Lab 09/20/24 13:32 Completed Troponin I Q3H Lab 09/20/24 16:16 Received Troponin I Q3H Lab 09/20/24 19:15 Ordered Urinalysis and Microscopic Stat Lab 09/20/24 13:32 Completed Medical Decision Narrative: In summary, patient is a 59-year-old male PMHx alcoholism and tobacco dependence, alcohol-induced pancreatitis, bipolar, seizures, COPD, malnutrition, GERD who presents to the ED with complaints of withdrawal, nausea, vomiting, diarrhea. Patient states that he is withdrawing from Ativan and alcohol. Patient states that he normally drinks 14 beers plus an unknown amount of liquor per day, advises that he takes Ativan 2 mg twice daily each day. He states that his last drink was this morning and he drank 4 beers. Patient has not had Ativan today. Patient states he has been alcoholic all his life . He is smokes cigarettes since he was 11. He reports that he has been in benzo and alcohol withdrawal multiple times, has a history of withdrawal seizures, no seizure in 1 year. Patient states he has been in and out of rehab several times, last time was this past May. He is requesting to go to [place] for rehab today. Current CIWA 14, patient has no tremors at this time, has a headache, constant nausea and vomiting, including dry heaving, diarrhea. Upon initial evaluation patient is alert, oriented to self, place, time, situation. He appears to be malnourished, actively dry heaving during evaluation. Discussed with patient that we will obtain labs, administer Ativan and rally bag. Patient is agreeable to plan of care at this time. CBC unremarkable for any leukocytosis, stable H&H. CMP remarkable for sodium of 129, glucose 106, troponin < 0.01, albumin 4.9. Serum alcohol 255. Administered Ativan, patient doing well after medication. He remains alert and oriented, hemodynamically stable. He is agreeable to admission for withdrawal at this time. Discussed admission with hospital medicine, they advised to administer 130 mg loading dose of phenobarbital and admit to the ICU. Patient is agreeable to admission at this time. Critical Care Critical Care Time Critical Care Time: No
[2024-09-20 13:53] LABS: Appearance,Urine CLEAR (Clear); Bilirubin,Urine Negative (Negative); Blood, Urine Negative (Negative); Color,Urine YELLOW (Yellow); Glucose,Urine (UA) Negative (Negative); Ketones,Urine Negative (Negative); Leukocyte Esterase,Urine Negative (Negative); Nitrate,Urine Negative (Negative); Protein,Urine Negative (Negative); Specific Gravity, Urine <= 1.005 (1.005-1.030); Urobilinogen,Urine 0.2 EU/dl (0.2)
[2024-09-20 13:59] LABS: Albumin Level 4.9 g/dl (3.5-5.0); Chloride 94 mmol/L (98-107); Potassium 4.2 mmoL/L (3.5-5.1); Sodium 129 mmol/L (136-145)
[2024-09-20 14:01] LABS: Blood Urea Nitrogen 6 mg/dl (9-20); Creatinine Clearance Estimated 98 mL/min (50-200); Estimated Glomerular Filt Rate 115 ml/min (>60); Ethyl Alcohol 255 mg/dl (0-10); GFR (African American) 140 ML/MIN (>60)
[2024-09-20 14:02] LABS: Alanine Aminotransferase 19 U/L (12-78); Albumin/Globulin Ratio 1.8 (1.1-1.8); Alkaline Phosphatase 85 U/L (38-126); Anion Gap 13.2 mEq/L (5-15); Aspartate Amino Transferase 39 U/L (17-59); Bilirubin,Total 0.3 mg/dl (0.2-1.3); Calcium 8.8 mg/dl (8.4-10.2); Carbon Dioxide 26 mmol/L (22.0-30.0); Globulin 2.7 g/dL (1.3-3.2); Glucose 106 mg/dl (74-100); Total Protein,Serum 7.6 g/dl (6.3-8.2)
[2024-09-20 14:05] LABS: Bacteria,Urine Trace /lpf; Squamous Epithelial Cell,Urine Occasional #/hpf (0-5)
[2024-09-20 14:11] LABS: NT Pro Brain Natriuretic Pep. < 20.0 pg/mL (0-125)
[2024-09-20 14:14] LABS: Troponin I < 0.01 ng/ml (0.00-0.034)
--- NOTE | 2024-09-20 14:54 | P.HP_ITS ---
History of Present Illness *Admission Date: 09/20/24 *Reason for visit:: Alcohol withdrawal, intoxication, nausea and vomiting *History of present illness: The patient is a 59-year-old male with a past medical history of COPD (on home inhalers), current tobacco use (40 pack-years), alcoholic pancreatitis, malnutrition, and prior electrolyte imbalances, who presented to the emergency department (ED) with a 3 to 4-day history of worsening nausea and vomiting and abdominal pain. States he has not eaten anything in 3 to 4 days. Continues to drink alcohol daily. Denies giorgi fever. No blood in vomit or stool. Denies chest pain. Stable on room air. Alert and oriented on presentation. Initial alcohol level 244. Found to have electrolyte disturbances and appearing in giorgi withdrawal with CIWA score of 14. Due to withdrawal symptoms and desire to quit drinking, medicine consulted for admission. On evaluation, states he would like to go to rehab. computer operations specialist consulted. On room air. Resting comfortably [facility] Disclaimer: The information contained in this section may have been updated after the patient was seen, as this information can be updated by other users. Medical History Substance use disorder Closed fracture of head of left ulna Hyponatremia Chronic pain Chronic pancreatitis Piloerection Paresthesias Weakness Nausea, vomiting, and diarrhea Abdominal pain, chronic, epigastric Periumbilical abdominal pain Cough Lung nodule Acute on chronic pancreatitis Acute on chronic pancreatitis Hypochloremia Hearing loss Pancreatic pseudocyst Chronic alcohol abuse Bipolar 1 disorder Seizures Abdominal aneurysm Excessive cerumen in left ear canal SBO (small bowel obstruction) Acute pancreatitis Cachexia Acute on chronic pancreatitis Gastrostomy tube dependent Metastatic non-small cell lung cancer Severe protein-calorie malnutrition Lung cancer metastatic to bone Abdominal pain Pancreatic pseudocyst Abdominal pain Bone marrow disorder Cirrhosis COPD (chronic obstructive pulmonary disease) GERD (gastroesophageal reflux disease) Gastric outlet obstruction History of lung cancer Pancreatic pseudocyst Alcoholic pancreatitis Anxiety History of lung cancer Alcohol abuse Pancreatitis, acute Gallstone pancreatitis Pancreatitis Hypokalemia Surgical History History of local excision of skin lesion History of aortic aneurysm repair History of cholecystectomy Hx of cholecystectomy Family History Other Cancer of lung Emphysema lung Social History Smoking Status: Current every day smoker tobacco type: cigarettes packs per day: 3 alcohol intake: former substance use type: denies use current occupational status: unemployed and disabled Travel in the last 8 weeks?: None household members: family housing: house current occupational exposures/hazards: No caffeine: No Have you lived/traveled outside [place] in past 30 days?: No Contact w/someone who lives/traveled outside US past 30 days?: No Exposure to someone with infectious disease in past 14 days?: No Do you have a fever (greater than 100.4 F or 38 C)?: No Have you tested positive for COVID-19?: No Exposed to someone with COVID-19 in past 14 days?: No Do you have a sore throat?: No Do you have a cough?: No Do you have any weakness?: No Do you have any diarrhea?: No Are you experiencing any unusual bleeding?: No Do you have any muscle aches/pain?: No Do you have any abdominal pain?: No Are you experiencing loss of taste or smell?: No Other Medical History Have you received the Flu Vaccine for this season: No Have you received the Pneumonia Vaccine: No Review of Systems Review of Systems Review of systems (narrative): 14 point review of systems performed, pertinent positives and negatives as per HPI Meds Home Medications and Allergies Home Medications ?Medication ?Instructions ?Recorded ?Confirmed ?Type folic acid 1 mg tablet 1 mg PO DAILY #100 tabs 12/01/23 09/20/24 Rx thiamine HCl (vitamin B1) 100 mg 100 mg PO DAILY #100 tabs 12/01/23 09/20/24 Rx tablet albuterol sulfate 90 mcg/actuation 1 inh inhalation Q4HP PRN 02/12/24 09/20/24 Rx breath activated powder Shortness Of Breath #1 ea inhaler,sensor fluticasone propionate 50 2 spray intranasal BID 04/14/24 09/20/24 History mcg/actuation nasal spray,suspension (Flonase Allergy Relief) sucralfate 1 gram tablet (Carafate) 1 g PO BID 04/14/24 09/20/24 History ascorbic acid (vitamin C) 250 mg 250 mg PO DAILY #100 tabs 05/07/24 09/20/24 Rx tablet sodium chloride 1,000 mg soluble 1,000 mg PO BIDWMEAL 30 days #60 05/24/24 09/20/24 Rx tablet tabs fluticasone fur. 100 mcg-umeclid 1 inh inhalation DAILY 30 days #60 07/18/24 09/20/24 Rx 62.5 mcg-vilant 25 mcg ea inhalat.powder (Trelegy Ellipta) ipratropium 0.5 mg-albuterol 3 mg 3 ml inhalation Q6HP PRN Shortness 07/18/24 09/20/24 Rx (2.5 mg base)/3 mL nebulization Of Breath 30 days #180 mL soln trazodone 100 mg tablet 100 mg PO DAILY #90 tabs 07/21/24 09/20/24 Rx btuagw-dzgqepmz-euejyzx 2 cap PO BIDWMEAL #360 caps 07/28/24 09/20/24 Rx 36,000-114,000-180,000 unit capsule,delay rel levetiracetam 500 mg tablet 500 mg PO BID #60 tabs 08/09/24 09/20/24 Rx pantoprazole 40 mg tablet,delayed 40 mg PO DAILY #30 tabs 08/18/24 09/20/24 Rx release doxycycline hyclate 100 mg tablet 100 mg PO BID #20 tabs 08/26/24 09/20/24 Rx lorazepam 2 mg tablet 2 mg PO BIDP PRN Anxiety #60 tabs 09/03/24 09/20/24 Rx oxycodone 10 mg tablet 10 mg PO BIDP PRN Moderate Pain 09/20/24 09/20/24 Rx (Scale Score 5-6) #60 tabs New Prescriptions to Start Prescriptions: Allergies Allergy/AdvReac Type Severity Reaction Status Date / Time cephalexin (From Keflex) Allergy Mild Hives Verified 09/20/24 18:26 sulfamethoxazole (From Allergy Unknown Hives Verified 09/20/24 18:26 BACTRIM) trimethoprim (From BACTRIM) Allergy Unknown Hives Verified 09/20/24 18:26 Exam Data for Last 24 hours Vital signs and Labs for Last 24 Hours: Temp Pulse Resp BP Pulse Ox 98.1 F 77 22 99/67 L 98 09/20/24 12:48 09/20/24 13:30 09/20/24 14:30 09/20/24 14:30 09/20/24 13:30 Laboratory Results - last 24 hr 09/20/24 13:32: WBC 6.1, RBC 4.68, Hgb 14.4, Hct 40.5 L, MCV 86.5, MCH 30.8, MCHC 35.6 H, RDW 15.0, Plt Count 213, MPV 9.9, Neut % (Auto) 59.3, Lymph % (Auto) 27.5, [place] % (Auto) 10.2 H, Eos % (Auto) 1.8, Baso % (Auto) 0.7, Neut # (Auto) 3.6, Lymph # (Auto) 1.7, [place] # (Auto) 0.6, Eos # (Auto) 0.1, Baso # (Auto) 0.0, Sodium 129 L, Potassium 4.2, Chloride 94 L, Carbon Dioxide 26, Anion Gap 13.2, BUN 6 L, Creatinine 0.70, Estimated Creat Clear 98, Estimated GFR 115, Est GFR ( Amer) 140, Glucose 106 H, Calcium 8.8, Total Bilirubin 0.3, AST 39, ALT 19, Alkaline Phosphatase 85, Troponin I < 0.01, NT-Pro-B Natriuret Pep < 20.0, Total Protein 7.6, Albumin 4.9, Globulin 2.7, Albumin/Globulin Ratio 1.8, Urine Color Yellow, Urine Appearance Clear, Urine pH 6.0, Ur Specific University <= 1.005, Urine Protein Negative, Urine Glucose (UA) Negative, Urine Ketones Negative, Urine Blood Negative, Urine Nitrate Negative, Urine Bilirubin Negative, Urine Urobilinogen 0.2, Ur Leukocyte Esterase Negative, Urine RBC None, Urine WBC None, Ur Squamous Epith Cells Occasional, Urine Bacteria Trace, Plasma/Serum Alcohol 255 H I & O for Last 24 hours: Intake & Output 09/17/24 09/18/24 09/19/24 09/20/24 23:59 23:59 23:59 23:59 Weight 61.235 kg Constitutional Constitutional: mild distress, thin and chronically ill appearing *Routine HEENT Exam Head: Present normocephalic Eye: Present EOMI and PERRL ENT: Present mucous membranes moist *Routine Neck Exam Neck: Present supple; Absent lymphadenopathy *Routine Respiratory Exam Respiratory: Present CTA bilaterally *Routine Cardiovascular Exam Cardiovascular: Present RRR *Routine Abdominal Exam Abdominal: Present soft and normoactive bowel sounds; Absent tenderness *Routine Rectal Exam Rectal:: deferred *Routine Genitalia Exam Genitalia:: deferred *Routine Extremities Exam Extremities: Absent cyanosis, clubbing or edema *Routine Skin Exam Skin: Present warm; Absent rash *Routine Neurological Exam Neurological: Present alert and oriented X3 Assessment and Plan *Assessment and plan (1) Alcohol withdrawal: Status: Resolved Category: Medical Code(s): F10.939 - Alcohol use, unspecified with withdrawal, unspecified (2) Chronic hyponatremia: Status: Resolved Category: Medical Code(s): E87.1 - Hypo-osmolality and hyponatremia (3) Lung nodule: Status: Acute Category: Medical Code(s): R91.1 - Solitary pulmonary nodule (4) Chronic pancreatitis due to chronic alcoholism: Status: Acute Category: Medical Code(s): K86.0 - Alcohol-induced chronic pancreatitis; F10.20 - Alcohol dependence, uncomplicated (5) Malnutrition compromising bodily function: Status: Acute Category: Medical Code(s): E46 - Unspecified protein-calorie malnutrition (6) COPD (chronic obstructive pulmonary disease): Status: Acute Category: Medical Code(s): J44.9 - Chronic obstructive pulmonary disease, unspecified (7) Chronic alcohol abuse: Status: Inactive Category: Medical Code(s): F10.10 - Alcohol abuse, uncomplicated (8) Pancreatic pseudocyst: Status: Acute Category: Medical Code(s): K86.3 - Pseudocyst of pancreas (9) Bipolar 1 disorder: Status: Acute Category: Medical Code(s): F31.9 - Bipolar disorder, unspecified (10) Seizure disorder: Status: Acute Category: Medical Code(s): G40.909 - Epilepsy, unspecified, not intractable, without status epilepticus Plan 59-year-old male who presents with nausea and vomiting. Found to have hyponatr emia. Concern for alcohol withdrawal. Discussed case with ER physician, request admission for CIWA protocol and correction of hyponatremia. I agreed to admit for further management. Admitted to ICU. Problems addressed as follows: Alcohol withdrawal History of alcohol withdrawal seizures -Initiated on CIWA protocol. Valium ordered per protocol. -Loaded with phenobarbital 130 mg once. Continue 130 mg twice daily -Seizure precautions -Initial alcohol level of 244. Will consult custom framing specialist on Friday to assist with detox/rehab if patient is interested -Kidney function normal at BUN of 6, creatinine 0.7. - Repeat CBC, CMP, magnesium ordered for the morning. -Vitamin replacement with daily rally pack, folic acid 1 mg daily, thiamine 100 mg tablet daily; thiamine 100 mg IV once on admission Nausea and vomiting - Zofran 4 mg IV once in the ER. Will monitor closely for any further needs. - White count 6.1, hemoglobin 14.4. Hyponatremia: - Sodium 129, chloride 94. Better than previous presentations with sodium as low as 118. Monitor closely for correction between 8 and 10 mEq a day. Seizure disorder: - continue home Keppra 500 mg p.o. twice daily. -Phenobarbital 65 mg twice daily to decrease risk for alcohol withdrawal seizures for at least 3 days. Valium per [facility] protocol Chronic pancreatic insufficiency: Continue Creon 3 times a day with meals COPD: Does not appear to be in exacerbation, DuoNebs as needed every 6 hours. Resume home Trelegy Full code Holding on anticoagulation given concern for hematemesis Regular diet
--- NOTE | 2024-09-20 15:00 | PC.NURSE ---
called house for bed request
[2024-09-20] MEDS: PHENobarbital SOD 130MG/ML INJ 130 MG IV ×2 (15:02→21:21)
[2024-09-20 15:28] LABS: INR 0.91 (0.9-1.1); Prothrombin Time 10.3 seconds (10.1-12.5)
[2024-09-20 15:29] LABS: Phosphorous 2.9 mg/dl (2.5-4.5)
--- NOTE | 2024-09-20 17:40 | PEERSUPPORT ---
Peer Support Note Patient Information Patient Information: DOS: 09/20/2024 ? Ps follow up: ? Ps contacted pt for follow up. Pt stated he may be dehydrated and still wanting to go to inpatient treatment.? ? Ps reminded him if he needed medical attention the ED is available, to call 911. ? Pt reported to ED. ? Pt and ps discussed alcohol use disorder and process of withdrawal. ? Pt has drank four 16 oz. beers this morning, he is wanting to go treatment. ? Ps and pt discuss [facility] and [facility]. ? Pt identify he needs more than 20 days which all [facility] stated his insurance would cover, then discharged him without a after care plan. ? Pt became tearful overwhelmed with emotions. ? Ps informed him of other available treatment options including [facility]. ? Ps encouraged pt to focus on process of withdrawal and plans to complete discuss further of intake assessment for treatment facility on 09/21/2024. Ps will follow up with pt on 09/21/2024
[2024-09-20] MEDS: THIAMINE HCL 100 MG in 0.9 % SODIUM CHLORIDE 50 ML 204 MG IV (17:43)
--- NOTE | 2024-09-20 18:16 | PC.NURSE ---
arrived by stretcher from ED
--- NOTE | 2024-09-20 18:28 | PC.NURSE ---
spoke with Jeannette in the lab who stated they had received in a second trop but that they didnt have the specimen. This nurse spoke to Rose Marquez about the second trop and she stated it could be canceled since the first one was negative. Jeannette made aware.
[2024-09-20] MEDS: diazePAM 5MG TABLET 5 MG PO (18:46)
--- NOTE | 2024-09-20 18:59 | PC.NURSE ---
New admit this shift for ETOH withdrawal. CIWA score = 7 upon arrival to floor, medicated per protocol. Pt currently sitting up in bed eating dinner tray. No needs voiced @ this time. Educated pt on use of call bustos, w/in reach. Bed alarm in place for safety. POC ongoing.
--- NOTE | 2024-09-20 21:37 | PC.NURSE ---
Pt reports he takes 2mg ativan BID at home, and if he does not have it he will have a grand-mal seizure. Educated pt that he has received valium, and that valium is also a benzo. Pt states it has to be Ativan. Pt called his sister, who is an RN, and wanted me to speak with her. His sister states if he goes 1 day without Ativan specifically, he will seize. Called Ja Richey APRN to bedside to speak with pt.
[2024-09-20] MEDS: LORazepam 1MG TABLET 2 MG PO (21:58)
--- NOTE | 2024-09-20 23:06 | PC.NURSE ---
pt de-sat to 84% while asleep. pt woke up and instructed to take deep breaths. O2 sat increased to 98%. Pt placed on 2L NC. Ja Richey APRN made aware.
[2024-09-21] VITALS (11 sets, daily range): BP systolic 93–150; BP diastolic 55–73; PULSE 63–87; RESP 16–21; TEMP 36.4–36.8; O2SAT 96–100; BMI 20.5
[2024-09-21] MEDS: TRAZODONE 50MG TABLET 100 MG PO (03:23)
[2024-09-21 06:12] LABS: Basophils # 0.1 K/mm3 (0-0.2); Basophils % 0.9 % (0.1-2.0); Eosinophils # 0.1 Kmm3 (0.0-0.4); Eosinophils % 1.9 % (0.1-12.0); Hematocrit 33.4 % (42.0-52.0); Lymphocytes # 1.1 K/mm3 (0.7-4.5); Lymphocytes % 18.9 % (10-50); Mean Corpuscular HGB Conc 35.3 g/dL (31.8-35.4); Mean Corpuscular Hemoglobin 30.7 pg (27.0-31.2); Mean Platelet Volume 10.1 fl (7.4-10.4); Monocytes # 0.7 K/mm3 (0.1-1.0); Monocytes % 12.8 % (1.7-9.3); Neutrophils # 3.7 K/mm3 (1.8-7.8); Neutrophils % 65.1 % (37.0-80.0); Nucleated Red Blood Cells # 0 10^3/uL; Nucleated Red Blood Cells % 0 %; Platelet Count 139 K/mm3 (142-424); Red Blood Count 3.84 M/mm3 (4.60-6.20); Red Cell Distribution Width 15.2 % (11.5-17.5); Red Cell Distribution Width-SD 48.5 fL; White Blood Count 5.7 K/mm3 (4.8-10.8)
[2024-09-21 06:22] LABS: Hemoglobin 11.9 g/dL (14.1-18.0)
[2024-09-21 06:32] LABS: Alanine Aminotransferase 18 U/L (12-78); Albumin Level 3.7 g/dl (3.5-5.0); Albumin/Globulin Ratio 1.6 (1.1-1.8); Alkaline Phosphatase 75 U/L (38-126); Anion Gap 4.5 mEq/L (5-15); Aspartate Amino Transferase 28 U/L (17-59); Bilirubin,Total 0.6 mg/dl (0.2-1.3); Blood Urea Nitrogen 8 mg/dl (9-20); Calcium 8.3 mg/dl (8.4-10.2); Carbon Dioxide 27 mmol/L (22.0-30.0); Chloride 103 mmol/L (98-107); Creatinine Clearance Estimated 99 mL/min (50-200); Estimated Glomerular Filt Rate 115 ml/min (>60); GFR (African American) 140 ML/MIN (>60); Globulin 2.3 g/dL (1.3-3.2); Glucose 110 mg/dl (74-100); Magnesium 2.4 mg/dl (1.6-2.3); Potassium 4.5 mmoL/L (3.5-5.1); Sodium 130 mmol/L (136-145)
--- NOTE | 2024-09-21 08:03 | HMH.PHAINT1 ---
Pharmacy Intervention Comments: HOME MEDICATION LIST CLARIFIED USING LIST FROM OUTPATIENT PHARMACY AND PT INTERVIEW
[2024-09-21] MEDS: MVI, ADULT NO.1 WITH VIT K 10 ML, THIAMINE HCL 100 MG, MAGNESIUM SULFATE 2 GM in LACTAT... 125 ML IV (08:16)
[2024-09-21] MEDS: PHENobarbital SOD 130MG/ML INJ 130 MG IV (08:17)
[2024-09-21] MEDS: LIPASE/PROTEASE/AMYLASE 1 EACH CAPSULE.DR 2 EACH PO (08:17)
[2024-09-21] MEDS: SUCRALFATE 1GM TABLET 1 GM PO (08:17)
[2024-09-21] MEDS: THIAMINE 100MG TABLET 100 MG PO (08:17)
[2024-09-21] MEDS: levETIRAcetam 500 MG TABLET PO (08:17)
--- NOTE | 2024-09-21 09:23 | HMH.OTEV ---
OT Inpatient Evaluation Rehab OT IP Evaluation Start: 09/20/24 23:41 Freq: ONCE Status: Active Protocol: Document 09/21/24 09:20 ROBERT (Rec: 09/21/24 09:23 [facility] [id number]) Rehab OT IP Assessment Subjective History Pt oriented x 3 on arrival. Pt agreeable to engage in therapy evaluation. Pt admitted on 09/20/24 due to alcohol withdrawal. History and physical: The patient is a 59-year-old male with a past medical history of COPD (on home inhalers), current tobacco use (40 pack-years), alcoholic pancreatitis, malnutrition, and prior electrolyte imbalances, who presented to the emergency department (ED) with a 3 to 4-day history of worsening nausea and vomiting and abdominal pain. States he has not eaten anything in 3 to 4 days. Continues to drink alcohol daily. Denies giorgi fever. No blood in vomit or stool. Denies chest pain. Stable on room air. Alert and oriented on presentation. Initial alcohol level 244. Found to have electrolyte disturbances and appearing in giorgi withdrawal with CIWA score of 14. Due to withdrawal symptoms and desire to quit drinking, medicine consulted for admission. Subjective Prior to being in the hospital , pt lived at home alone. Pt claims normally he is independent with all ADLs and IADLs. He does not use any type of AE during functional transfers and he still drives. Objective Patient Orientation Person,Place,Birthday Right Upper Extremity Gross ROM WFL Left Upper Extremity Gross ROM WFL Bed Mobility bed mobility-scooting,bed mobility - supine/sit Assist Level Supervision/Stand by Transfer Training Sit/Stand Transfer Assist Level Supervision/Stand by Chair Transfer Ability Supervision/Stand by Chair Transfer Technique Sit to/from Ambulatory Chair Transfer Assistive Devices None Lower Body Dressing Ability Independent Overall Commode/Toilet Transfer Ability Standby Assistance Rehab OT IP prob,goals,plan Problems Date of Evaluation: 09/21/24 Rehab Potential Rehab Potential Innapropriate for Skilled Therapy Discharge Plan OT Discharge Plan Pt appears to be at his baseline with functional transfers and ADL independence . Pt can return home once he is medically stable per physican. Eval Complexity Eval Charge Codes 91218 - Moderate Complexity PHYSICIAN CERTIFICATION: I certify the specified therapy services for Richard Haider Rice are required, authorized, and reviewed every 30 days.
[2024-09-21] MEDS: FOLIC ACID 1MG TABLET 1 MG PO (09:35)
--- NOTE | 2024-09-21 10:48 | HMH.PTEV ---
Physical Therapy Evaluation Rehab PT IP Evaluation Start: 09/20/24 23:41 Freq: ONCE Status: Active Protocol: Document 09/21/24 10:38 KATIA (Rec: 09/21/24 10:47 KATIA [id number]) Subjective/History History History The patient is a 59-year-old male with a past medical history of COPD (on home inhalers), current tobacco use (40 pack-years), alcoholic pancreatitis, malnutrition, and prior electrolyte imbalances, who presented to the emergency department (ED) with a 3 to 4-day history of worsening nausea and vomiting and abdominal pain. States he has not eaten anything in 3 to 4 days. Continues to drink alcohol daily. Denies giorgi fever. No blood in vomit or stool. Denies chest pain. Stable on room air. Alert and oriented on presentation. Initial alcohol level 244. Found to have electrolyte disturbances and appearing in giorgi withdrawal with CIWA score of 14. Due to withdrawal symptoms and desire to quit drinking, medicine consulted for admission. Subjective Subjective PLOF: IND with all mobility without AD use Home: Lives alone in single- story home. New diagnosis of cancer in past 12 No months? [facility] How much help from another person do you currently need... Turning from your back to your side None while in a flat bed without using bedrails? Moving from lying on back to sitting on None the side of a flat bed without using bedrails? Moving to and from a bed to a chair ( None including a wheelchair)? Standing up from a chair using your arms None ? (e.g., wheelchair, bedside chair) Walking in hospital room? None Climbing 3-5 steps with a railing? A little Mobility Score [address] [facility] Mobility Calculator Mobility 7 Walk 25 feet or more Rehab PT IP Eval Objective Appearance Patient Behavior Appropriate,Cooperative Patient Orientation Person,Place Difficulty following instructions none Speech Pattern Clear Ambulation Patient Able to Ambulate Yes Ambulation Observation IP General Gait Pattern Observation Ataxic Gait Ambulation Distance (feet) 30 Ambulation Assistive Device None Ambulation Ability Supervision/Stand by,Contact Guard/Hand Hold Balance Ability to Arise Able, w/o using arms Sitting Balance Steady, safe Standing Balance Narrow stance w/o support Dynamic Sitting Balance Ability Normal Dynamic Standing Balance Ability Good Transfers Bed Transfer Ability Supervision/Stand by Chair Transfer Ability Supervision/Stand by Sit to Stand Bed Transfer Ability Supervision/Stand by Sit to Stand Chair Transfer Ability Supervision/Stand by Rehab PT IP prob,goals,plan Problems Date of Evaluation: 09/21/24 Rehab Potential Rehab Potential Innapropriate for Skilled Therapy Discharge Plan PT Discharge Plan Pt demo'd good safety awareness and ambulation ability. Pt most appropriate to d/c home. Pt not appropriate for skilled acute care PT d/t mobility being at baseline/IND. Eval Complexity Eval Charge Codes 23612 - Moderate Complexity PHYSICIAN CERTIFICATION: I certify the specified therapy services for Richard Casarez are required, authorized, and reviewed every 30 days.
--- NOTE | 2024-09-21 11:19 | SW/DCPLANNER ---
Addendum entered by Martha Bueno 09/21/24 12:25: I have updated [facility] that patient has opted to return home. Original Note: I spoke w/ this patient regarding plans once medically stable for discharge. I did discuss [facility] vs other inpatient facilities this AM. Patient voiced to MD and myself that he is not interested in rehab at time of discharge. Patient voiced he would like to return home to complete task then go to rehab in a couple days. Patient confirmed that he does have contact information for [facility] for once he returns home and is ready to admit. I did provide patient w/ [facility] Resource List. CM will continue to follow up w/ this patient. Peer Support is also following alongside this patient. Per MD patient will discharge home later today.
[2024-09-21] MEDS: FLUTICASONE/UMECLIDIN/VILANTER 100/62.5/25MCG INHALER 1 PUFF IH (11:25)
[2024-09-21] MEDS: LORazepam 1MG TABLET 2 MG PO (11:30)
--- NOTE | 2024-09-21 12:25 | P.DS_ITS ---
General Admission date:: 09/20/24 HPI HPI HPI: The patient is a 59-year-old male with a past medical history of COPD (on home inhalers), current tobacco use (40 pack-years), alcoholic pancreatitis, malnutrition, and prior electrolyte imbalances, who presented to the emergency department (ED) with a 3 to 4-day history of worsening nausea and vomiting and abdominal pain. States he has not eaten anything in 3 to 4 days. Continues to drink alcohol daily. Denies giorgi fever. No blood in vomit or stool. Denies chest pain. Stable on room air. Alert and oriented on presentation. Initial alcohol level 244. Found to have electrolyte disturbances and appearing in giorgi withdrawal with CIWA score of 14. Due to withdrawal symptoms and desire to quit drinking, medicine consulted for admission. On evaluation, states he would like to go to rehab. junk removal specialist consulted. On room air. Resting comfortably Hospital Course Hospital Course Hospital Course: Richard Casarez is a 59-year-old male who presents with nausea and vomiting. Found to have hyponatremia, and concern for alcohol withdrawal. #Alcohol withdrawal #History of alcohol withdrawal seizures ? Clinically improved with phenobarbital loading dose, and resuming home Ativan 2 mg twice daily. ? Previously went to rehab at [facility] but has unfortunately relapsed. ? Peer support consulted, patient is not interested in inpatient rehab at this time. Will follow-up with [facility] this week. ? Unfortunately unable to prescribe naltrexone as patient is on hydrocodone for chronic pancreatitis. #Hyponatremia: - Sodium 129, chloride 94. Better than previous presentations with sodium as low as 118. Concern for beer Poto cesario. ? Improved to 130, stable. #Seizure disorder: - continue home Keppra 500 mg p.o. twice daily. #Chronic pancreatic insufficiency: ? Continue Creon 3 times a day with meals. ? Continue home oxycodone 10 mg twice daily as needed. #COPD ? Does not appear to be in exacerbation, DuoNebs as needed every 6 hours. Resume home Trelegy Total time spent on discharge: 32 minutes on chart review, counseling, documentation, and direct care with patient. Exam Data for Last 24 hours Vital signs and Labs for Last 24 Hours: Temp Pulse Resp BP Pulse Ox O2 Del Method O2 Flow Rate 97.6 F 69 20 104/62 L 97 Room Air 2 09/21/24 08:00 09/21/24 11:00 09/21/24 11:00 09/21/24 11:00 09/21/24 11:00 09/21/24 12:00 09/21/24 08:00 Laboratory Results - last 24 hr 09/20/24 13:32: WBC 6.1, RBC 4.68, Hgb 14.4, Hct 40.5 L, MCV 86.5, MCH 30.8, MCHC 35.6 H, RDW 15.0, Plt Count 213, MPV 9.9, Neut % (Auto) 59.3, Lymph % (Auto) 27.5, [place] % (Auto) 10.2 H, Eos % (Auto) 1.8, Baso % (Auto) 0.7, Neut # (Auto) 3.6, Lymph # (Auto) 1.7, [place] # (Auto) 0.6, Eos # (Auto) 0.1, Baso # (Auto) 0.0, Sodium 129 L, Potassium 4.2, Chloride 94 L, Carbon Dioxide 26, Anion Gap 13.2, BUN 6 L, Creatinine 0.70, Estimated Creat Clear 98, Estimated GFR 115, Est GFR ( Amer) 140, Glucose 106 H, Calcium 8.8, Total Bilirubin 0.3, AST 39, ALT 19, Alkaline Phosphatase 85, Troponin I < 0.01, NT-Pro-B Natriuret Pep < 20.0, Total Protein 7.6, Albumin 4.9, Globulin 2.7, Albumin/Globulin Ratio 1.8, Urine Color Yellow, Urine Appearance Clear, Urine pH 6.0, Ur Specific [place] <= 1.005, Urine Protein Negative, Urine Glucose (UA) Negative, Urine Ketones Negative, Urine Blood Negative, Urine Nitrate Negative, Urine Bilirubin Negative, Urine Urobilinogen 0.2, Ur Leukocyte Esterase Negative, Urine RBC None, Urine WBC None, Ur Squamous Epith Cells Occasional, Urine Bacteria Trace, Plasma/Serum Alcohol 255 H 09/20/24 14:32: PT 10.3, INR 0.91, Phosphorus 2.9 09/21/24 05:34: WBC 5.7, RBC 3.84 L, Hgb 11.9 L D, Hct 33.4 L, MCV 87.0, MCH 30.7, MCHC 35.3, RDW 15.2, Plt Count 139 L D, MPV 10.1, Neut % (Auto) 65.1, Lymph % (Auto) 18.9, [place] % (Auto) 12.8 H, Eos % (Auto) 1.9, Baso % (Auto) 0.9, Neut # (Auto) 3.7, Lymph # (Auto) 1.1, [place] # (Auto) 0.7, Eos # (Auto) 0.1, Baso # (Auto) 0.1, Sodium 130 L, Potassium 4.5, Chloride 103, Carbon Dioxide 27, Anion Gap 4.5 L, BUN 8 L D, Creatinine 0.70, Estimated Creat Clear 99, Estimated GFR 115, Est GFR ( Amer) 140, Glucose 110 H, Calcium 8.3 L, Magnesium 2.4 H, Total Bilirubin 0.6, AST 28 D, ALT 18, Alkaline Phosphatase 75, Total Protein 6.0 L, Albumin 3.7 D, Globulin 2.3, Albumin/Globulin Ratio 1.6 I & O for Last 24 hours: Intake & Output 09/18/24 09/19/24 09/20/24 09/21/24 23:59 23:59 23:59 23:59 Intake Total 480 / 480 360 / 360 Output Total 1075 / 1075 250 / 250 Balance -595 / -595 110 / 110 Weight 59.931 kg 61.507 kg Constitutional Constitutional: no acute distress *Routine HEENT Exam Head: Present normocephalic Eye: Present EOMI and PERRL ENT: Present mucous membranes moist *Routine Neck Exam Neck: Present supple; Absent lymphadenopathy *Routine Respiratory Exam Respiratory: Present CTA bilaterally *Routine Cardiovascular Exam Cardiovascular: Present RRR *Routine Abdominal Exam Abdominal: Present soft and normoactive bowel sounds; Absent tenderness *Routine Extremities Exam Extremities: Absent cyanosis, clubbing or edema *Routine Skin Exam Skin: Present warm; Absent rash *Routine Neurological Exam Neurological: Present alert and oriented X3 Results Data Completed and Pending Labs on day of discharge: Labs from last 24 hours 09/21/24 09/20/24 09/20/24 05:34 14:32 13:32 WBC 5.7 6.1 RBC 3.84 L 4.68 Hgb 11.9 L D 14.4 Hct 33.4 L 40.5 L MCV 87.0 86.5 MCH 30.7 30.8 MCHC 35.3 35.6 H RDW 15.2 15.0 Plt Count 139 L D 213 MPV 10.1 9.9 Neut % (Auto) 65.1 59.3 Lymph % (Auto) 18.9 27.5 [place] % (Auto) 12.8 H 10.2 H Eos % (Auto) 1.9 1.8 Baso % (Auto) 0.9 0.7 Neut # (Auto) 3.7 3.6 Lymph # (Auto) 1.1 1.7 [place] # (Auto) 0.7 0.6 Eos # (Auto) 0.1 0.1 Baso # (Auto) 0.1 0.0 PT 10.3 INR 0.91 Sodium 130 L 129 L Potassium 4.5 4.2 Chloride 103 94 L Carbon Dioxide 27 26 Anion Gap 4.5 L 13.2 BUN 8 L D 6 L Creatinine 0.70 0.70 Estimated Creat Clear 99 98 Estimated GFR 115 115 Est GFR ( Amer) 140 140 Glucose 110 H 106 H Calcium 8.3 L 8.8 Phosphorus 2.9 Magnesium 2.4 H Total Bilirubin 0.6 0.3 AST 28 D 39 ALT 18 19 Alkaline Phosphatase 75 85 Troponin I < 0.01 NT-Pro-B Natriuret Pep < 20.0 Total Protein 6.0 L 7.6 Albumin 3.7 D 4.9 Globulin 2.3 2.7 Albumin/Globulin Ratio 1.6 1.8 Urine Color Yellow Urine Appearance Clear Urine pH 6.0 Ur Specific [place] <= 1.005 Urine Protein Negative Urine Glucose (UA) Negative Urine Ketones Negative Urine Blood Negative Urine Nitrate Negative Urine Bilirubin Negative Urine Urobilinogen 0.2 Ur Leukocyte Esterase Negative Urine RBC None Urine WBC None Ur Squamous Epith Cells Occasional Urine Bacteria Trace Plasma/Serum Alcohol 255 H DS: Diagnosis Discharge Diagnosis (1) Alcohol withdrawal: Status: Resolved Code(s): F10.939 - Alcohol use, unspecified with withdrawal, unspecified (2) Chronic hyponatremia: Status: Resolved Code(s): E87.1 - Hypo-osmolality and hyponatremia (3) Lung nodule: Status: Acute Code(s): R91.1 - Solitary pulmonary nodule (4) Chronic pancreatitis due to chronic alcoholism: Status: Acute Code(s): K86.0 - Alcohol-induced chronic pancreatitis; F10.20 - Alcohol dependence, uncomplicated (5) Malnutrition compromising bodily function: Status: Acute Code(s): E46 - Unspecified protein-calorie malnutrition (6) COPD (chronic obstructive pulmonary disease): Status: Acute Code(s): J44.9 - Chronic obstructive pulmonary disease, unspecified (7) Chronic alcohol abuse: Status: Inactive Code(s): F10.10 - Alcohol abuse, uncomplicated (8) Pancreatic pseudocyst: Status: Acute Code(s): K86.3 - Pseudocyst of pancreas (9) Bipolar 1 disorder: Status: Acute Code(s): F31.9 - Bipolar disorder, unspecified (10) Seizure disorder: Status: Acute Code(s): G40.909 - Epilepsy, unspecified, not intractable, without status epilepticus Meds Home Medications and Allergies Home Medications ?Medication ?Instructions ?Recorded ?Confirmed ?Type folic acid 1 mg tablet 1 mg PO DAILY #100 tabs 12/01/23 09/20/24 Rx thiamine HCl (vitamin B1) 100 mg 100 mg PO DAILY #100 tabs 12/01/23 09/20/24 Rx tablet albuterol sulfate 90 mcg/actuation 1 inh inhalation Q4HP PRN 02/12/24 09/20/24 Rx breath activated powder Shortness Of Breath #1 ea inhaler,sensor fluticasone propionate 50 2 spray intranasal BID 04/14/24 09/20/24 History mcg/actuation nasal spray,suspension (Flonase Allergy Relief) sucralfate 1 gram tablet (Carafate) 1 g PO BID 04/14/24 09/20/24 History ascorbic acid (vitamin C) 250 mg 250 mg PO DAILY #100 tabs 05/07/24 09/20/24 Rx tablet fluticasone fur. 100 mcg-umeclid 1 inh inhalation DAILY 30 days #60 07/18/24 09/20/24 Rx 62.5 mcg-vilant 25 mcg ea inhalat.powder (Trelegy Ellipta) trazodone 100 mg tablet 100 mg PO DAILY #90 tabs 07/21/24 09/20/24 Rx ifwmdw-hdfpwgoq-gupqxsy 2 cap PO BIDWMEAL #360 caps 07/28/24 09/20/24 Rx 36,000-114,000-180,000 unit capsule,delay rel levetiracetam 500 mg tablet 500 mg PO BID #60 tabs 08/09/24 09/20/24 Rx lorazepam 2 mg tablet 2 mg PO BIDP PRN Anxiety #60 tabs 09/03/24 09/20/24 Rx oxycodone 10 mg tablet 10 mg PO BIDP PRN Moderate Pain 09/20/24 09/20/24 Rx (Scale Score 5-6) #60 tabs ipratropium 0.5 mg-albuterol 3 mg 3 ml inhalation Q6HP PRN Shortness 09/21/24 Rx (2.5 mg base)/3 mL nebulization Of Breath 30 days #180 mL soln omeprazole 40 mg capsule,delayed 40 mg PO HS 09/21/24 09/21/24 History release New Prescriptions to Start Prescriptions: ipratropium-albuterol Vitor Lopez Allergies Allergy/AdvReac Type Severity Reaction Status Date / Time cephalexin (From Keflex) Allergy Mild Hives Verified 09/20/24 18:26 sulfamethoxazole (From Allergy Unknown Hives Verified 09/20/24 18:26 BACTRIM) trimethoprim (From BACTRIM) Allergy Unknown Hives Verified 09/20/24 18:26 Discharge Plan Disposition Patient Disposition: Home, Self-Care Condition: Fair Follow up Plan Follow up with: Richard Edgar MD [Staff Physician] - 09/30/24 10:00 am Prescriptions/Medication Reconciliation: New ipratropium-albuterol 0.5 mg-3 mg(2.5 mg base)/3 mL Solution For Nebulization 3 ml inhalation Q6HP PRN (Reason: Shortness Of Breath) 30 Days Qty: 180 5RF Continued folic acid 1 mg tablet 1 mg PO DAILY Qty: 100 10RF thiamine HCl (vitamin B1) 100 mg tablet 100 mg PO DAILY Qty: 100 10RF albuterol sulfate 90 mcg/actuation aero powdr breath act w/sensor 1 inh IH Q4HP PRN (Reason: Shortness Of Breath) Qty: 1 12RF trazodone 100 mg tablet 100 mg PO DAILY Qty: 90 3RF cyanocobalamin (vitamin B-12) 1,000 mcg/mL solution 1,000 mcg IM ONCE Qty: 1 0RF ascorbic acid (vitamin C) 250 mg tablet 250 mg PO DAILY Qty: 100 10RF pljboh-btyeoinl-fqymepx 36,000-114,000- 180,000 unit capsule,delayed release(DR/EC) 2 cap PO BIDWMEAL Qty: 360 12RF levetiracetam 500 mg tablet 500 mg PO BID Qty: 60 2RF lorazepam 2 mg tablet 2 mg PO BIDP PRN (Reason: Anxiety) Qty: 60 3RF oxycodone 10 mg tablet 10 mg PO BIDP PRN (Reason: Moderate Pain (Scale Score 5-6)) Qty: 60 0RF sucralfate [Carafate] 1 gram tablet 1 g PO BID fluticasone propionate [Flonase Allergy Relief] 50 mcg/actuation spray,suspension 2 spray intranasal BID Rx Instructions: administer into each nostril Trelegy Ellipta 100-62.5-25 mcg Blister With Device 1 inh inhalation DAILY 30 Days Qty: 60 0RF omeprazole 40 mg capsule,delayed release(DR/EC) 40 mg PO HS Problem Reconciliation Problems Reviewed?: Yes Patient Discharge Instructions Patient Instructions: Alcohol Withdrawal Print Language: French Providers Primary Care Provider: Provider,Referral Admit Provider: João Milan Attending Provider: João Milan
--- NOTE | 2024-09-23 10:37 | SW/DCPLANNER ---
Spoke with patient on the phone. Patient stated that he is doing well. Patient stated that he is aware of his upcoming appointment. Patient stated that his new medicine was brought to his room before he was discharged. Patient stated that he has no concerns or questions at this time. Vish Kimble
== END 2024-09-21 16:12 | disposition home or self-care (01) ==
LOC: ER 13:44 → 2ND 15:32
PROVIDERS: Nurse Practitioner; Admitting Provider Internal Medicine Adolescent Medicine; Emergency Provider Emergency Medicine; Visit Provider Internal Medicine Adolescent Medicine
DX: F10.939 Alcohol use, unspecified with withdrawal, unspecified (principal); Y90.8 Blood alcohol level of 240 mg/100 ml or more; F17.210 Nicotine dependence, cigarettes, uncomplicated; Z68.20 Body mass index [BMI] 20.0-20.9, adult; J44.9 Chronic obstructive pulmonary disease, unspecified; E87.1 Hypo-osmolality and hyponatremia; R91.1 Solitary pulmonary nodule; K86.0 Alcohol-induced chronic pancreatitis; E46 Unspecified protein-calorie malnutrition; K86.3 Pseudocyst of pancreas; F31.9 Bipolar disorder, unspecified; G40.909 Epilepsy, unspecified, not intractable, without status epilepticus; Z79.899 Other long term (current) drug therapy; Z88.1 Allergy status to other antibiotic agents; Z79.51 Long term (current) use of inhaled steroids
CPT/HCPCS: 80053; 80320; 81001; 83735; 83880; 84100; 84484; 85025; 85610; 93005; 94640; 97162; 97166; 99285; G0378; J2405; J3411; J7120

== ENCOUNTER 2024-10-18 11:53 | Observation (INO) | payer MEDICAID, SELFPAY ==
[2024-10-18 12:15] VITALS: BP 139/82; PULSE 85; RESP 18; TEMP 36.7; O2SAT 98
--- NOTE | 2024-10-18 12:16 | ECG_ITS ---
APPROVED REPORT Exam: Resting ECG HR:85 bpm ECG Measurements Heart Rate 85 AXES MS 179 P 83 QRSd 89 QRS 84 QT 357 T 77 QTc 400 Conclusion SINUS RHYTHM NORMAL ECG Electronically signed by : PEBBLES NASH, 10/19/2024 06:34:40
[2024-10-18 12:42] LABS: Basophils # 0.1 K/mm3 (0-0.2); Basophils % 1.1 % (0.1-2.0); Eosinophils # 0.3 Kmm3 (0.0-0.4); Eosinophils % 4.4 % (0.1-12.0); Hematocrit 37.4 % (42.0-52.0); Hemoglobin 13.3 g/dL (14.1-18.0); Immature Granulocytes # 0.02 10^3uL; Immature Granulocytes % 0.4 %; Lymphocytes # 1.3 K/mm3 (0.7-4.5); Lymphocytes % 22.5 % (10-50); Mean Corpuscular HGB Conc 35.6 g/dL (31.8-35.4); Mean Corpuscular Hemoglobin 31.4 pg (27.0-31.2); Mean Corpuscular Volume 88.2 fl (80-94); Mean Platelet Volume 9.7 fl (7.4-10.4); Monocytes # 0.5 K/mm3 (0.1-1.0); Monocytes % 9.3 % (1.7-9.3); Neutrophils # 3.6 K/mm3 (1.8-7.8); Neutrophils % 62.3 % (37.0-80.0); Nucleated Red Blood Cells # 0 10^3/uL; Nucleated Red Blood Cells % 0 %; Platelet Count 189 K/mm3 (142-424); Red Blood Count 4.24 M/mm3 (4.60-6.20); Red Cell Distribution Width-SD 48.3 fL; White Blood Count 5.7 K/mm3 (4.8-10.8)
[2024-10-18 12:43] LABS: Alanine Aminotransferase 14 U/L (12-78); Albumin Level 4.8 g/dl (3.5-5.0); Albumin/Globulin Ratio 1.7 (1.1-1.8); Alkaline Phosphatase 75 U/L (38-126); Anion Gap 13.5 mEq/L (5-15); Aspartate Amino Transferase 31 U/L (17-59); Bilirubin,Total 0.5 mg/dl (0.2-1.3); Blood Urea Nitrogen 7 mg/dl (9-20); Calcium 8.9 mg/dl (8.4-10.2); Carbon Dioxide 27 mmol/L (22.0-30.0); Chloride 88 mmol/L (98-107); Creatinine Clearance Estimated 96 mL/min (50-200); Estimated Glomerular Filt Rate 115 ml/min (>60); GFR (African American) 140 ML/MIN (>60); Globulin 2.9 g/dL (1.3-3.2); Glucose 83 mg/dl (74-100); Lipase 44 U/L (23-300); Magnesium 1.7 mg/dl (1.6-2.3); Potassium 4.5 mmoL/L (3.5-5.1); Sodium 124 mmol/L (136-145); Total Protein,Serum 7.7 g/dl (6.3-8.2)
[2024-10-18 12:58] LABS: Troponin I < 0.01 ng/ml (0.00-0.034)
[2024-10-18] MEDS: ASPIRIN 81MG CHEWABLE TABLET 324 MG PO (13:09)
[2024-10-18] MEDS: ONDANSETRON 4MG/2ML VIAL 4 MG IV (13:09)
[2024-10-18] MEDS: 0.9 % SODIUM CHLORIDE 1000ML 1,000 ML 999 ML IV (13:10)
--- NOTE | 2024-10-18 13:39 | ED_ITS ---
Discharge Plan Disposition Patient Disposition: Admitted Prescriptions Prescriptions: No Action folic acid 1 mg tablet 1 mg PO DAILY Qty: 100 10RF albuterol sulfate 90 mcg/actuation aero powdr breath act w/sensor 1 inh IH Q4HP PRN (Reason: Shortness Of Breath) Qty: 1 12RF thiamine HCl (vitamin B1) 100 mg tablet 100 mg PO DAILY Qty: 100 10RF trazodone 100 mg tablet 100 mg PO DAILY Qty: 90 3RF cyanocobalamin (vitamin B-12) 1,000 mcg/mL solution 1,000 mcg IM ONCE Qty: 1 0RF ascorbic acid (vitamin C) 250 mg tablet 250 mg PO DAILY Qty: 100 10RF hzpbly-pkdtzyzn-ibpdqty 36,000-114,000- 180,000 unit capsule,delayed release(DR/EC) 2 cap PO BIDWMEAL Qty: 360 12RF levetiracetam 500 mg tablet 500 mg PO BID Qty: 60 2RF oxycodone 10 mg tablet 10 mg PO BIDP PRN (Reason: Moderate Pain (Scale Score 5-6)) Qty: 60 0RF lorazepam 2 mg tablet 2 mg PO BIDP PRN (Reason: Anxiety) Qty: 60 0RF sodium chloride 1,000 mg tablet,soluble 1,000 mg PO BIDWMEAL 30 Days Qty: 60 0RF sucralfate [Carafate] 1 gram tablet 1 g PO BID fluticasone propionate [Flonase Allergy Relief] 50 mcg/actuation spray,suspension 2 spray intranasal BID Rx Instructions: administer into each nostril Trelegy Ellipta 100-62.5-25 mcg Blister With Device 1 inh inhalation DAILY 30 Days Qty: 60 0RF omeprazole 40 mg capsule,delayed release(DR/EC) 40 mg PO HS ipratropium-albuterol 0.5 mg-3 mg(2.5 mg base)/3 mL Solution For Nebulization 3 ml inhalation Q6HP PRN (Reason: Shortness Of Breath) 30 Days Qty: 180 5RF Referrals Follow up/Referrals: Richard Edgar MD [Primary Care Provider, Family Practice] - See instructions Clinical Impressions Clinical Impression: Withdrawn from alcohol detoxification program, Acute hyponatremia Instructions Patient Instructions: DI for Diarrhea and Traveler's Diarrhea -- Adult, DI for Diarrhea and Traveler's Diarrhea -- Child, DI for Nausea -- Adult, DI for Nausea -- Child Print Language Print Language: Citizen Of [place] Discharge ED Provider: Rafat Salazar General Adult HPI <Lissetmanoj Ma (ED), STRAIGHT K[employer] MACHINE C[employer]TER - Last Filed: 10/18/24 15:24> General Chief complaint: Nausea/Vomiting/Diarrhea Stated complaint: Vomiting, diarrhea, weakness Time Seen by Provider: 10/18/24 12:34 Mode of Arrival: Ambulatory Source of Information: Patient Description of Symptoms (Recalled from ER Triage Doc. by RN): patient complained of vomiting for past 3 days, no diarrhea, no abd pain, cant keep any food down, chest pain for 1 week that comes and goes. Hx of alcoholism, has had 5 beers this AM/budlight. Been in rehab twice. History of Present Illness HPI narrative: This is a 59-year-old male who presents to the ED today for complaint of vomiting, dry heaves for 3 days. No diarrhea, no abdominal pain but he cannot keep food down. He has had chest pain that has been coming and going. He has seen no blood in his vomiting. He is an alcoholic has had 5 beers this morning. Related Data Home Medications ?Medication ?Instructions ?Recorded ?Confirmed fluticasone propionate 50 2 spray intranasal BID 04/1410/04/24 mcg/actuation nasal spray,suspension (Flonase Allergy Relief) sucralfate 1 gram tablet (Carafate) 1 g PO BID 4 10/04/24 omeprazole 40 mg capsule,delayed 40 mg PO HS 09/21/24 10/04/24 release Previous Rx's ?Medication ?Instructions ?Recorded folic acid 1 mg tablet 1 mg PO DAILY #100 tabs 11/16 10/09 albuterol sulfate 90 mcg/actuation 1 inh inhalation Q4 HP PRN 02/12/24 breath activated powder Shortness Of Breath #1 ea inhaler,sensor ascorbic acid (vitamin C) 250 mg 250 mg PO DAILY #100 tabs 05/07/24 tablet fluticasone fur. 100 mcg-umeclid 1 inh inhalation VIOLETA Y 30 days #60 07/18/24 62.5 mcg-vilant 25 mcg ea inhalat.powder (Trelegy Ellipta) trazodone 100 mg tablet 100 mg PO DAILY #90 tabs 10/10 atrped-tkdxxnto-rwmojel 2 cap PO BIDWMEAL #360 caps 07/28/24 36,000-114,000-180,000 unit capsule,delay rel levetiracetam 500 mg tablet 500 mg PO BID #60 tabs oxycodone 10 mg tablet 10 mg PO BIDP PRN Moderate P ain 09/20/24 (Scale Score 5-6) #60 tabs ipratropium 0.5 mg-albuterol 3 mg 3 ml inhalation Q6HP PRN Shortness 09/21/24 (2.5 mg base)/3 mL nebulization Of Breath 30 days #180 mL soln thiamine HCl (vitamin B1) 100 mg 100 mg PO DAILY #100 tabs 10/04/24 tablet lorazepam 2 mg tablet 2 mg PO BIDP PRN Anxiety #60 tabs 10/06/24 sodium chloride 1,000 mg soluble 1,000 mg PO BIDWMEAL 30 days #60 10/14/24 tablet tabs Allergies Allergy/AdvReac Type Severity Reaction Status Date / Time cephalexin (From Keflex) Allergy Mild Hives Verified 10/04/24 13:08 sulfamethoxazole (From Allergy Unknown Hives Verified 10/04/24 13:08 BACTRIM) trimethoprim (From BACTRIM) Allergy Unknown Hives Verified 10/04/24 13:08 PFS <Lisset Ma (ED), STRAIGHT K[employer]IFE MACHINE CUTTER - Last Filed: 10/18/24 15:24> [facility] Disclaimer: The information contained in this section may have been updated after the patient was seen, as this information can be updated by other users. Medical History Substance use disorder Closed fracture of head of left ulna Hyponatremia Chronic pain Chronic pancreatitis Piloerection Paresthesias Weakness Nausea, vomiting, and diarrhea Abdominal pain, chronic, epigastric Periumbilical abdominal pain Cough Lung nodule Acute on chronic pancreatitis Acute on chronic pancreatitis Hypochloremia Hearing loss Pancreatic pseudocyst Chronic alcohol abuse Bipolar 1 disorder Seizures Abdominal aneurysm Excessive cerumen in left ear canal SBO (small bowel obstruction) Acute pancreatitis Cachexia Acute on chronic pancreatitis Gastrostomy tube dependent Metastatic non-small cell lung cancer Severe protein-calorie malnutrition Lung cancer metastatic to bone Abdominal pain Pancreatic pseudocyst Abdominal pain Bone marrow disorder Cirrhosis COPD (chronic obstructive pulmonary disease) GERD (gastroesophageal reflux disease) Gastric outlet obstruction History of lung cancer Pancreatic pseudocyst Alcoholic pancreatitis Anxiety History of lung cancer Alcohol abuse Pancreatitis, acute Gallstone pancreatitis will refer to surgery Pancreatitis Hypokalemia Surgical History History of local excision of skin lesion History of aortic aneurysm repair History of cholecystectomy Hx of cholecystectomy Family History Other Cancer of lung Emphysema lung Social History Smoking Status: Current every day smoker tobacco type: cigarettes packs per day: 3 alcohol intake: former substance use type: denies use current occupational status: unemployed and disabled Travel in the last 8 weeks?: None household members: family housing: house current occupational exposures/hazards: No caffeine: No Have you lived/traveled outside [place] in past 30 days?: No Contact w/someone who lives/traveled outside US past 30 days?: No Exposure to someone with infectious disease in past 14 days?: No Do you have a fever (greater than 100.4 F or 38 C)?: No Have you tested positive for COVID-19?: No Exposed to someone with COVID-19 in past 14 days?: No Do you have a sore throat?: No Do you have a cough?: No Do you have any weakness?: No Do you have any diarrhea?: Yes Are you experiencing any unusual bleeding?: No Do you have any muscle aches/pain?: No Do you have any abdominal pain?: No Are you experiencing loss of taste or smell?: No Other Medical History Have you received the Flu Vaccine for this season: No Have you received the Pneumonia Vaccine: No <Lisset Ma (ED), STRA[employer] K[employer] MACHINE C[employer]TER - Last Filed: 10/18/24 15:24> ROS Obtained: Yes Systems reviewed as appropriate & no additional complaints except as documented Constitutional Constitutional: Reports as per HPI Physical Exam <Lisest Ma (ED), STRAIGHT K[employer]IFE MACHINE C[employer]TER - Last Filed: 10/18/24 15:24> General General appearance: alert and in no apparent distress Head Head exam: normocephalic Eye Eye exam: Present PERRL ENT ENT exam: Present mucous membranes moist Neck Neck exam: Present trachea midline Chest Chest inspection: Present symmetric chest wall rise Respiratory Respiratory exam: Present normal lung sounds bilaterally Cardiovascular Cardiovascular exam: Present regular rate, normal rhythm, normal heart sounds, +S1 and +S2 Abdominal Exam Abdominal exam: Present soft and normal bowel sounds Extremities Exam Extremities exam: Present normal inspection, full ROM and normal capillary refill Back Exam Back exam: Present normal inspection and full ROM Neurological Exam Neurological exam: Present alert, oriented X3 and normal gait Psychiatric Psychiatric exam: Present normal affect and normal mood Skin Skin exam: Present warm and dry Medical Decision Making <Lisset Ma (ED), STRA[employer] K[employer] MACHINE C[employer]TER - Last Filed: 10/18/24 15:24> Medical Records Screening: Per USPSTF and CDC recommendations, given the prevalence of disease in our region, it is our hospital?s policy to screen for HIV and viral Hepatitis for all patients aged 18 and over and those with ongoing risk factors. Medhat Inquiry Pt receiving controlled substance: No Medhat was queried for this patient: No Vital Signs: 10/18/24 12:15 10/18/24 15:24 Temperature 98.1 F Temperature Source Oral Pulse Rate 72 Pulse Rate [Apical] 85 Respiratory Rate 18 Blood Pressure 154/93 H Blood Pressure [Right Arm] 139/82 Blood Pressure Mean [Right Arm] 101 Blood Pressure Source [Right Arm] Automatic Cuff Blood Pressure Position [Right Arm] Sitting 02 Sat by Pulse Oximetry 98 97 Oxygen Delivery Method Room Air Room Air Lab Data Lab Results 10/18/24 12:27: WBC 5.7, RBC 4.24 L, Hgb 13.3 L, Hct 37.4 L, MCV 88.2, MCH 31.4 H, MCHC 35.6 H, RDW 15.0, Plt Count 189, MPV 9.7, Neut % (Auto) 62.3, Lymph % (Auto) 22.5, Gila % (Auto) 9.3, Eos % (Auto) 4.4, Baso % (Auto) 1.1, Neut # (Auto) 3.6, Lymph # (Auto) 1.3, Gila # (Auto) 0.5, Eos # (Auto) 0.3, Baso # (Auto) 0.1, Sodium 124 L, Potassium 4.5, Chloride 88 L, Carbon Dioxide 27, Anion Gap 13.5, BUN 7 L, Creatinine 0.70, Estimated Creat Clear 96, Estimated GFR 115, Est GFR ( Amer) 140, Glucose 83, Calcium 8.9, Magnesium 1.7, Total Bilirubin 0.5, AST 31, ALT 14, Alkaline Phosphatase 75, Troponin I < 0.01, Total Protein 7.7 D, Albumin 4.8, Globulin 2.9, Albumin/Globulin Ratio 1.7, Lipase 44, Plasma/Serum Alcohol 124 H 10/18/24 14:05: Urine Color Yellow, Urine Appearance Clear, Urine pH 7.0, Ur Specific [place] <= 1.005, Urine Protein Negative, Urine Glucose (UA) Negative, Urine Ketones Negative, Urine Blood Negative, Urine Nitrate Negative, Urine Bilirubin Negative, Urine Urobilinogen 0.2, Ur Leukocyte Esterase Negative, Urine RBC None, Urine WBC None, Ur Squamous Epith Cells Occasional, Urine Bacteria Trace 10/18/24 12:27 10/18/24 12:27 Orders (Tests/Meds): ED MEDICATIONS Generic Name Dose Route Start Last Admin Trade Name Freq PRN Reason Stop Dose Admin Multivitamins 10 ml/ Thiamine 1,015 mls @ 125 mls/hr 10/19/24 09:00 HCl 100 mg/ Magnesium Sulfate IV 11/18/24 08:59 2 gm/ Lactated Ringer's DAILY BUZZ Lorazepam 2 mg 10/18/24 15:21 Lorazepam 2mg/Ml Vial IV 11/17/24 15:20 Q1HP PRN CIWA >16 Lorazepam 1 mg 10/18/24 15:21 Lorazepam 1mg Tablet PO 11/17/24 15:20 Q1HP PRN CIWA Score 8-15 Lorazepam 1 mg 10/18/24 15:21 Lorazepam 2mg/Ml Vial IV 11/17/24 15:20 Q1HP PRN CIWA Score 8-15 Lorazepam 1 mg 10/18/24 15:21 Lorazepam 1mg Tablet PO 11/17/24 15:20 Q6HP PRN CIWA 2-7 Nicotine 21 mg 10/18/24 15:21 Nicotine 21mg/24hr Patch TD 11/17/24 15:20 DAILYP PRN Nicotine Cravings Ondansetron HCl 4 mg 10/18/24 15:21 Ondansetron 4mg/2ml Vial IV 11/17/24 15:20 Q6HP PRN Nausea Phenobarbital Sodium 130 mg 10/18/24 15:27 Phenobarbital Sod 130mg/Ml Inj IV 10/18/24 15:28 ONCE ONE Sodium Chloride 10 ml 10/18/24 15:21 Sodium Chloride 0.9% 10ml Vial IV 11/17/24 15:20 NEEDED PRN to Dilute Lorazepam inj Discontinued Medications Generic Name Dose Route Start Last Admin Trade Name Papito PRN Reason Stop Dose Admin Aspirin 324 mg 10/18/24 12:30 10/18/24 13:09 Aspirin 81mg Chewable Tablet PO 10/18/24 12:31 324 mg ONCE ONE Administration Sodium Chloride 1,000 mls @ 999 mls/hr 10/18/24 12:30 10/18/24 13:10 Sod Chlor 0.9% 1000ml Bag IV 10/18/24 13:30 999 mls/hr .Q1H1M ONE Administration Ondansetron HCl 4 mg 10/18/24 12:30 10/18/24 13:09 Ondansetron 4mg/2ml Vial IV 10/18/24 12:31 4 mg ONCE ONE Administration ORDERS Category Date Time Status Consult Ceramic Plater [CONS] Routine Cons 10/18/24 15:26 Active Blood alcohol [Ethyl Alcohol] Stat Lab 10/18/24 12:27 Completed CBC [Complete Blood Count Auto Diff] Stat Lab 10/18/24 12:27 Completed Complete Blood Count Auto Diff AMLAB Lab 10/19/24 06:00 Ordered Comprehensive Metabolic Panel AMLAB Lab 10/19/24 06:00 Ordered Comprehensive Metabolic Panel Stat Lab 10/18/24 12:27 Completed Lipase Stat Lab 10/18/24 12:27 Completed Magnesium AMLAB Lab 10/19/24 06:00 Ordered Magnesium Stat Lab 10/18/24 12:27 Completed Phosphorous AMLAB Lab 10/19/24 06:00 Ordered Trop I [Troponin I] Stat Lab 10/18/24 12:27 Completed Troponin I Q3H Lab 10/18/24 15:45 Ordered Troponin I Q3H Lab 10/18/24 18:45 Ordered UA [Urinalysis and Microscopic] Stat Lab 10/18/24 14:05 Completed Medical Decision Narrative: Patient is a 59-year-old male presenting to the emergency department for evaluation of vomiting and dry heaves for 3 days. He also complains of chest pain over the past couple weeks but none now. Patient is hemodynamically stable and nontoxic-appearing upon arrival, afebrile. Differential diagnosis includes viral illness, alcoholism, among others. Workup will be conducted with hematologic labs, specific imaging, provocative tests. Initial inventions include crystalloid bolus, nausea meds. Initial workup reviewed by me shows low sodium and chloride, normal troponin otherwise unremarkable labs. Imaging considered but did not do due to symptoms being more related to viral illness or alcohol related. Patient has improved after fluids and meds. Heart score is 2 Patient wants to detox from alcohol. He has on Ativan 2 mg twice a [id number] For a long time. This has been given by Dr. Edgar. The patient also drinks 15 beers a day for most of his life. Dr. Milan accepted for alcohol withdrawal <Rafat Salazar MD - Last Filed: 10/18/24 15:36> Vital Signs: 10/18/24 12:15 10/18/24 15:24 Temperature 98.1 F Temperature Source Oral Pulse Rate 72 Pulse Rate [Apical] 85 Respiratory Rate 18 Blood Pressure 154/93 H Blood Pressure [Right Arm] 139/82 Blood Pressure Mean [Right Arm] 101 Blood Pressure Source [Right Arm] Automatic Cuff Blood Pressure Position [Right Arm] Sitting 02 Sat by Pulse Oximetry 98 97 Oxygen Delivery Method Room Air Room Air Lab Data Lab Results 10/18/24 12:27: WBC 5.7, RBC 4.24 L, Hgb 13.3 L, Hct 37.4 L, MCV 88.2, MCH 31.4 H, MCHC 35.6 H, RDW 15.0, Plt Count 189, MPV 9.7, Neut % (Auto) 62.3, Lymph % (Auto) 22.5, Gila % (Auto) 9.3, Eos % (Auto) 4.4, Baso % (Auto) 1.1, Neut # (Auto) 3.6, Lymph # (Auto) 1.3, Gila # (Auto) 0.5, Eos # (Auto) 0.3, Baso # (Auto) 0.1, Sodium 124 L, Potassium 4.5, Chloride 88 L, Carbon Dioxide 27, Anion Gap 13.5, BUN 7 L, Creatinine 0.70, Estimated Creat Clear 96, Estimated GFR 115, Est GFR ( Amer) 140, Glucose 83, Calcium 8.9, Magnesium 1.7, Total Bilirubin 0.5, AST 31, ALT 14, Alkaline Phosphatase 75, Troponin I < 0.01, Total Protein 7.7 D, Albumin 4.8, Globulin 2.9, Albumin/Globulin Ratio 1.7, Lipase 44, Plasma/Serum Alcohol 124 H 10/18/24 14:05: Urine Color Yellow, Urine Appearance Clear, Urine pH 7.0, Ur Specific [place] <= 1.005, Urine Protein Negative, Urine Glucose (UA) Negative, Urine Ketones Negative, Urine Blood Negative, Urine Nitrate Negative, Urine Bilirubin Negative, Urine Urobilinogen 0.2, Ur Leukocyte Esterase Negative, Urine RBC None, Urine WBC None, Ur Squamous Epith Cells Occasional, Urine Bacteria Trace Orders (Tests/Meds): ED MEDICATIONS Generic Name Dose Route Start Last Admin Trade Name Freq PRN Reason Stop Dose Admin Multivitamins 10 ml/ Thiamine 1,015 mls @ 125 mls/hr 10/19/24 09:00 HCl 100 mg/ Magnesium Sulfate IV 11/18/24 08:59 2 gm/ Lactated Ringer's DAILY BUZZ Lorazepam 2 mg 10/18/24 15:21 Lorazepam 2mg/Ml Vial IV 11/17/24 15:20 Q1HP PRN CIWA >16 Lorazepam 1 mg 10/18/24 15:21 Lorazepam 1mg Tablet PO 11/17/24 15:20 Q1HP PRN CIWA Score 8-15 Lorazepam 1 mg 10/18/24 15:21 Lorazepam 2mg/Ml Vial IV 11/17/24 15:20 Q1HP PRN CIWA Score 8-15 Lorazepam 1 mg 10/18/24 15:21 Lorazepam 1mg Tablet PO 11/17/24 15:20 Q6HP PRN CIWA 2-7 Nicotine 21 mg 10/18/24 15:21 Nicotine 21mg/24hr Patch TD 11/17/24 15:20 DAILYP PRN Nicotine Cravings Ondansetron HCl 4 mg 10/18/24 15:21 Ondansetron 4mg/2ml Vial IV 11/17/24 15:20 Q6HP PRN Nausea Phenobarbital Sodium 130 mg 10/18/24 15:27 Phenobarbital Sod 130mg/Ml Inj IV 10/18/24 15:28 ONCE ONE Sodium Chloride 10 ml 10/18/24 15:21 Sodium Chloride 0.9% 10ml Vial IV 11/17/24 15:20 NEEDED PRN to Dilute Lorazepam inj Discontinued Medications Generic Name Dose Route Start Last Admin Trade Name Papito PRN Reason Stop Dose Admin Aspirin 324 mg 10/18/24 12:30 10/18/24 13:09 Aspirin 81mg Chewable Tablet PO 10/18/24 12:31 324 mg ONCE ONE Administration Sodium Chloride 1,000 mls @ 999 mls/hr 10/18/24 12:30 10/18/24 13:10 Sod Chlor 0.9% 1000ml Bag IV 10/18/24 13:30 999 mls/hr .Q1H1M ONE Administration Ondansetron HCl 4 mg 10/18/24 12:30 10/18/24 13:09 Ondansetron 4mg/2ml Vial IV 10/18/24 12:31 4 mg ONCE ONE Administration ORDERS Category Date Time Status Consult Ceramic Plater [CONS] Routine Cons 10/18/24 15:26 Active Blood alcohol [Ethyl Alcohol] Stat Lab 10/18/24 12:27 Completed CBC [Complete Blood Count Auto Diff] Stat Lab 10/18/24 12:27 Completed Complete Blood Count Auto Diff AMLAB Lab 10/19/24 06:00 Ordered Comprehensive Metabolic Panel AMLAB Lab 10/19/24 06:00 Ordered Comprehensive Metabolic Panel Stat Lab 10/18/24 12:27 Completed Lipase Stat Lab 10/18/24 12:27 Completed Magnesium AMLAB Lab 10/19/24 06:00 Ordered Magnesium Stat Lab 10/18/24 12:27 Completed Phosphorous AMLAB Lab 10/19/24 06:00 Ordered Trop I [Troponin I] Stat Lab 10/18/24 12:27 Completed Troponin I Q3H Lab 10/18/24 15:45 Ordered Troponin I Q3H Lab 10/18/24 18:45 Ordered UA [Urinalysis and Microscopic] Stat Lab 10/18/24 14:05 Completed ECG Data Tracing #1: Independently interpreted by Rafat Salazar: Rate is 85, rhythm is regular, axis is normal, no ST elevation in anatomical contiguous leads, QTc 400. Medical Decision Narrative: Patient is a 59-year-old male presenting to the emergency department for evaluation of vomiting and dry heaves for 3 days. He also complains of chest pain over the past couple weeks but none now. Patient is hemodynamically stable and nontoxic-appearing upon arrival, afebrile. Differential diagnosis includes viral illness, alcoholism, among others. Workup will be conducted with hematologic labs, specific imaging, provocative tests. Initial inventions include crystalloid bolus, nausea meds. Initial workup reviewed by me shows low sodium and chloride, normal troponin otherwise unremarkable labs. Imaging considered but did not do due to symptoms being more related to viral illness or alcohol related. Patient has improved after fluids and meds. Heart score is 2 Patient wants to detox from alcohol. He has on Ativan 2 mg twice a [id number] For a long time. This has been given by Dr. Edgar. The patient also drinks 15 beers a day for most of his life. Dr. Milan accepted for alcohol withdrawal I was consulted by the [facility], and we discussed the complexity of the problems being addressed. I approved the treatment and management plan for this patient's care in the emergency department, thus performing a substantive portion of the medical decision making. Patient has a history of alcohol withdrawal seizures, benzodiazepine withdrawal seizures. He takes 2 mg of Ativan twice a day for anxiety . He is wishing to discontinue his alcohol use given he is at high risk for delirium tremens he will require medical clearance prior to possible inpatient rehabilitation. Rafat Salazar MD Critical Care <Lisset Ma (ED), STRAIGHT KNIFE MACHINE CUTTER - Last Filed: 10/18/24 15:24> Critical Care Time Critical Care Time: No
[2024-10-18 14:14] LABS: Microscopic, Urine URINE MICROSCOPIC (MICROSCOPIC)
[2024-10-18 14:16] LABS: Appearance,Urine CLEAR (Clear); Bilirubin,Urine Negative (Negative); Blood, Urine Negative (Negative); Color,Urine YELLOW (Yellow); Glucose,Urine (UA) Negative (Negative); Ketones,Urine Negative (Negative); Leukocyte Esterase,Urine Negative (Negative); Nitrate,Urine Negative (Negative); Protein,Urine Negative (Negative); Specific Gravity, Urine <= 1.005 (1.005-1.030); Urobilinogen,Urine 0.2 EU/dl (0.2)
[2024-10-18 14:38] LABS: Bacteria,Urine Trace /lpf; Squamous Epithelial Cell,Urine Occasional #/hpf (0-5)
[2024-10-18 14:42] LABS: Ethyl Alcohol 124 mg/dl (0-10)
--- NOTE | 2024-10-18 15:21 | PC.NURSE ---
house made aware of bed admission
[2024-10-18 15:24] VITALS: BP 154/93; PULSE 72; O2SAT 97
[2024-10-18 15:39] VITALS: BP 156/95; PULSE 75; RESP 18; TEMP 36.6; O2SAT 100
[2024-10-18] MEDS: PHENobarbital SOD 65MG/ML INJ 130 MG IV (15:55)
--- NOTE | 2024-10-18 15:57 | PC.NURSE ---
report given to FeleciaRN
[2024-10-18 15:59] VITALS: BP 155/95; PULSE 90; RESP 18; TEMP 37
[2024-10-18 16:00] VITALS: BP 138/76; PULSE 83; RESP 18; TEMP 36.6; O2SAT 97; BMI 23.1
--- NOTE | 2024-10-18 16:01 | PC.NURSE ---
Pt admit and taken up to room.
--- NOTE | 2024-10-18 16:05 | PC.NURSE ---
arrived by w/c from ED
[2024-10-18 16:29] LABS: Troponin I 0.02 ng/ml (0.00-0.034)
--- NOTE | 2024-10-18 17:34 | EXP.HP ---
History of Present Illness *Admission Date: 10/18/24 *Reason for visit:: Alcohol withdrawal, intoxication, nausea and vomiting *History of present illness: The patient is a 59-year-old male with a past medical history of COPD (on home inhalers), current tobacco use (40 pack-years), alcoholic pancreatitis, malnutrition, and prior electrolyte imbalances, who presented to the emergency department (ED) with a 3 to 4-day history of worsening nausea and vomiting and abdominal pain. Has had poor p.o. intake. Interested in detox. Alcohol level 124. Also found to have hyponatremia with sodium of 124. Medicine consulted for admission and further management. On evaluation, states he would like to go to rehab. measurement specialist consulted. On room air. Resting comfortably. Similar presentation a month ago. Continues to struggle with alcoholism. [facility] Disclaimer: The information contained in this section may have been updated after the patient was seen, as this information can be updated by other users. Medical History Substance use disorder Closed fracture of head of left ulna Hyponatremia Chronic pain Chronic pancreatitis Piloerection Paresthesias Weakness Nausea, vomiting, and diarrhea Abdominal pain, chronic, epigastric Periumbilical abdominal pain Cough Lung nodule Acute on chronic pancreatitis Acute on chronic pancreatitis Hypochloremia Hearing loss Pancreatic pseudocyst Chronic alcohol abuse Bipolar 1 disorder Seizures Abdominal aneurysm Excessive cerumen in left ear canal SBO (small bowel obstruction) Acute pancreatitis Cachexia Acute on chronic pancreatitis Gastrostomy tube dependent Metastatic non-small cell lung cancer Severe protein-calorie malnutrition Lung cancer metastatic to bone Abdominal pain Pancreatic pseudocyst Abdominal pain Bone marrow disorder Cirrhosis COPD (chronic obstructive pulmonary disease) GERD (gastroesophageal reflux disease) Gastric outlet obstruction History of lung cancer Pancreatic pseudocyst Alcoholic pancreatitis Anxiety History of lung cancer Alcohol abuse Pancreatitis, acute Gallstone pancreatitis Pancreatitis Hypokalemia Surgical History History of local excision of skin lesion History of aortic aneurysm repair History of cholecystectomy Hx of cholecystectomy Family History Emphysema lung Cancer of lung Social History Smoking Status: Current every day smoker tobacco type: cigarettes packs per day: 3 alcohol intake: former substance use type: denies use current occupational status: unemployed and disabled Travel in the last 8 weeks?: None household members: family housing: house current occupational exposures/hazards: No caffeine: No Have you lived/traveled outside US in past 30 days?: No Contact w/someone who lives/traveled outside US past 30 days?: No Exposure to someone with infectious disease in past 14 days?: No Do you have a fever (greater than 100.4 F or 38 C)?: No Have you tested positive for COVID-19?: No Exposed to someone with COVID-19 in past 14 days?: No Do you have a sore throat?: No Do you have a cough?: No Do you have any weakness?: No Do you have any diarrhea?: Yes Are you experiencing any unusual bleeding?: No Do you have any muscle aches/pain?: No Do you have any abdominal pain?: No Are you experiencing loss of taste or smell?: No Other Medical History Have you received the Flu Vaccine for this season: Yes Have you received the Pneumonia Vaccine: Yes Review of Systems Review of Systems Review of systems (narrative): 14 point review of systems performed, pertinent positives and negatives as per HPI Meds Home Medications and Allergies Home Medications ?Medication ?Instructions ?Recorded ?Confirmed ?Type folic acid 1 mg tablet 1 mg PO DAILY #100 tabs 12/01/23 10/04/24 Rx albuterol sulfate 90 mcg/actuation 1 inh inhalation Q4HP PRN 02/12/24 10/04/24 Rx breath activated powder Shortness Of Breath #1 ea inhaler,sensor fluticasone propionate 50 2 spray intranasal BID 04/14/24 10/04/24 History mcg/actuation nasal spray,suspension (Flonase Allergy Relief) sucralfate 1 gram tablet (Carafate) 1 g PO BID 04/14/24 10/04/24 History ascorbic acid (vitamin C) 250 mg 250 mg PO DAILY #100 tabs 05/07/24 10/04/24 Rx tablet fluticasone fur. 100 mcg-umeclid 1 inh inhalation DAILY 30 days #60 07/18/24 10/04/24 Rx 62.5 mcg-vilant 25 mcg ea inhalat.powder (Trelegy Ellipta) trazodone 100 mg tablet 100 mg PO DAILY #90 tabs 07/21/24 10/04/24 Rx jhjlkn-cxtzemqb-arlakyp 2 cap PO BIDWMEAL #360 caps 07/28/24 10/04/24 Rx 36,000-114,000-180,000 unit capsule,delay rel levetiracetam 500 mg tablet 500 mg PO BID #60 tabs 08/09/24 10/04/24 Rx oxycodone 10 mg tablet 10 mg PO BIDP PRN Moderate Pain 09/20/24 10/04/24 Rx (Scale Score 5-6) #60 tabs ipratropium 0.5 mg-albuterol 3 mg 3 ml inhalation Q6HP PRN Shortness 09/21/24 10/04/24 Rx (2.5 mg base)/3 mL nebulization Of Breath 30 days #180 mL soln omeprazole 40 mg capsule,delayed 40 mg PO HS 09/21/24 10/04/24 History release thiamine HCl (vitamin B1) 100 mg 100 mg PO DAILY #100 tabs 10/04/24 10/04/24 Rx tablet lorazepam 2 mg tablet 2 mg PO BIDP PRN Anxiety #60 tabs 10/06/24 Rx sodium chloride 1,000 mg soluble 1,000 mg PO BIDWMEAL 30 days #60 10/14/24 Rx tablet tabs New Prescriptions to Start Prescriptions: Allergies Allergy/AdvReac Type Severity Reaction Status Date / Time cephalexin (From Keflex) Allergy Mild Hives Verified 10/04/24 13:08 sulfamethoxazole (From Allergy Unknown Hives Verified 10/04/24 13:08 BACTRIM) trimethoprim (From BACTRIM) Allergy Unknown Hives Verified 10/04/24 13:08 Exam Data for Last 24 hours Vital signs and Labs for Last 24 Hours: Temp Pulse Resp BP Pulse Ox O2 Del Method 98 F 83 18 138/76 97 Room Air 10/18/24 16:00 10/18/24 16:00 10/18/24 16:00 10/18/24 16:10/18/24 16:00 10/18/24 16:00 Laboratory Results - last 24 hr 10/18/24 12:27: WBC 5.7, RBC 4.24 L, Hgb 13.3 L, Hct 37.4 L, MCV 88.2, MCH 31.4 H, MCHC 35.6 H, RDW 15.0, Plt Count 189, MPV 9.7, Neut % (Auto) 62.3, Lymph % (Auto) 22.5, [place] % (Auto) 9.3, Eos % (Auto) 4.4, Baso % (Auto) 1.1, Neut # (Auto) 3.6, Lymph # (Auto) 1.3, [place] # (Auto) 0.5, Eos # (Auto) 0.3, Baso # (Auto) 0.1, Sodium 124 L, Potassium 4.5, Chloride 88 L, Carbon Dioxide 27, Anion Gap 13.5, BUN 7 L, Creatinine 0.70, Estimated Creat Clear 96, Estimated GFR 115, Est GFR ( Amer) 140, Glucose 83, Calcium 8.9, Magnesium 1.7, Total Bilirubin 0.5, AST 31, ALT 14, Alkaline Phosphatase 75, Troponin I < 0.01, Total Protein 7.7 D, Albumin 4.8, Globulin 2.9, Albumin/Globulin Ratio 1.7, Lipase 44, Plasma/Serum Alcohol 124 H 10/18/24 14:05: Urine Color Yellow, Urine Appearance Clear, Urine pH 7.0, Ur Specific [place] <= 1.005, Urine Protein Negative, Urine Glucose (UA) Negative, Urine Ketones Negative, Urine Blood Negative, Urine Nitrate Negative, Urine Bilirubin Negative, Urine Urobilinogen 0.2, Ur Leukocyte Esterase Negative, Urine RBC None, Urine WBC None, Ur Squamous Epith Cells Occasional, Urine Bacteria Trace 10/18/24 15:45: Troponin I 0.02 I & O for Last 24 hours: Intake & Output 10/15/24 10/16/24 10/17/24 10/18/24 23:59 23:59 23:59 23:59 Output Total 0 / 0 Balance 0 / 0 Weight 68.946 kg Constitutional Constitutional: mild distress, thin and chronically ill appearing *Routine HEENT Exam Head: Present normocephalic Eye: Present EOMI and PERRL ENT: Present mucous membranes moist *Routine Neck Exam Neck: Present supple; Absent lymphadenopathy *Routine Respiratory Exam Respiratory: Present CTA bilaterally *Routine Cardiovascular Exam Cardiovascular: Present RRR *Routine Abdominal Exam Abdominal: Present soft and normoactive bowel sounds; Absent tenderness *Routine Rectal Exam Rectal:: deferred *Routine Genitalia Exam Genitalia:: deferred *Routine Extremities Exam Extremities: Absent cyanosis, clubbing or edema *Routine Skin Exam Skin: Present warm; Absent rash *Routine Neurological Exam Neurological: Present alert, oriented X3 and moving all extremities; Absent altered mental status Assessment and Plan *Assessment and plan (1) Alcohol withdrawal: Status: Resolved Category: Medical Code(s): F10.939 - Alcohol use, unspecified with withdrawal, unspecified (2) Chronic hyponatremia: Status: Resolved Category: Medical Code(s): E87.1 - Hypo-osmolality and hyponatremia (3) Lung nodule: Status: Acute Category: Medical Code(s): R91.1 - Solitary pulmonary nodule (4) Chronic pancreatitis due to chronic alcoholism: Status: Acute Category: Medical Code(s): K86.0 - Alcohol-induced chronic pancreatitis; F10.20 - Alcohol dependence, uncomplicated (5) Malnutrition compromising bodily function: Status: Acute Category: Medical Code(s): E46 - Unspecified protein-calorie malnutrition (6) COPD (chronic obstructive pulmonary disease): Status: Acute Category: Medical Code(s): J44.9 - Chronic obstructive pulmonary disease, unspecified (7) Pancreatic pseudocyst: Status: Acute Category: Medical Code(s): K86.3 - Pseudocyst of pancreas (8) Bipolar 1 disorder: Status: Acute Category: Medical Code(s): F31.9 - Bipolar disorder, unspecified (9) Seizure disorder: Status: Acute Category: Medical Code(s): G40.909 - Epilepsy, unspecified, not intractable, without status epilepticus Plan 59-year-old male who presents with nausea and vomiting. Found to have hyponatremia. Concern for alcohol withdrawal. Discussed case with ER physician, request admission for [facility] protocol and correction of hyponatremia. I agreed to admit for further management. Problems addressed as follows: Alcohol withdrawal History of alcohol withdrawal seizures -Initiated on CIWA protocol. Ativan ordered per protocol. -Loaded with phenobarbital 130 mg once. Reevaluate daily for further dosing -Seizure precautions -Initial alcohol level of 124. Will consult preventive medicine specialist on Friday to assist with detox/rehab if patient is interested -White count normal at 5.7, hemoglobin 13.3. BUN 7, creatinine 0.7. Magnesium 1.7. Liver enzymes normal with bilirubin 0.5, AST 31, ALT 14, alk phos 75 - Repeat CBC, CMP, magnesium ordered for the morning. -Vitamin replacement with daily rally pack, thiamine 100 mg tablet daily Nausea and vomiting - Zofran 4 mg IV as every 6 hours for nausea Hyponatremia: - Sodium 124, chloride 89, better than previous presentations with sodium as low as 118. Monitor closely for correction between 8 and 10 mEq a day. Seizure disorder: - continue home Keppra 500 mg p.o. twice daily. - Ativan per [facility] protocol Chronic pancreatic insufficiency: Continue Creon 3 times a day with meals COPD: Does not appear to be in exacerbation, DuoNebs as needed every 6 hours. Resume home Trelegy Full code Regular diet
--- NOTE | 2024-10-18 18:52 | PC.NURSE ---
A&OX4. TOLERATING RA WELL. NO WITHDRAWEL SYMPTOMS PRESENT AT THIS TIME. CIWA 0. PATIENT HAS SLEPT MAJORITY OF TIME SINCE ARRIVAL TO FLOOR. HAS HAD NO NEEDS OR C/O THUS FAR. SEIZURE PADS IN PLACE. VSS.
[2024-10-18 19:34] LABS: Troponin I < 0.01 ng/ml (0.00-0.034)
[2024-10-18 20:00] VITALS: BP 131/70; PULSE 79; RESP 16; TEMP 36.8; O2SAT 98
--- NOTE | 2024-10-18 20:02 | EXP.EVENT.NO ---
Patient says he is normally on 2 mg of Ativan twice daily to keep him from having seizures, spoke with him that we are looking for the alcohol withdrawals right now that he has a as needed Ativan that the nurses will be able to give that to so that he will not have seizures he is agreeable with that. Also will start Pepcid twice daily due to his history of being on a proton pump inhibitor that we do not have in the hospital. He is not having any signs of heartburn at this time
[2024-10-18] MEDS: LORazepam 1MG TABLET 1 MG PO (20:11)
[2024-10-18] MEDS: FAMOTIDINE 20MG TABLET 20 MG PO (20:11)
[2024-10-18] MEDS: levETIRAcetam 500 MG TABLET PO (20:11)
[2024-10-19] MEDS: LORazepam 1MG TABLET 1 MG PO ×4 (00:14→22:43)
[2024-10-19 04:00] VITALS: BP 125/70; PULSE 67; RESP 18; TEMP 36.8; O2SAT 97; BMI 22.1
[2024-10-19 06:36] LABS: Basophils # 0.1 K/mm3 (0-0.2); Basophils % 1.4 % (0.1-2.0); Eosinophils # 0.2 Kmm3 (0.0-0.4); Eosinophils % 5.2 % (0.1-12.0); Hematocrit 35.5 % (42.0-52.0); Immature Granulocytes # 0.02 10^3uL; Immature Granulocytes % 0.5 %; Lymphocytes # 1.1 K/mm3 (0.7-4.5); Mean Corpuscular HGB Conc 33.8 g/dL (31.8-35.4); Mean Corpuscular Hemoglobin 30.2 pg (27.0-31.2); Mean Corpuscular Volume 89.2 fl (80-94); Monocytes # 0.4 K/mm3 (0.1-1.0); Monocytes % 9.8 % (1.7-9.3); Neutrophils # 2.6 K/mm3 (1.8-7.8); Neutrophils % 59.1 % (37.0-80.0); Nucleated Red Blood Cells # 0 10^3/uL; Nucleated Red Blood Cells % 0 %; Platelet Count 160 K/mm3 (142-424); Red Blood Count 3.98 M/mm3 (4.60-6.20); Red Cell Distribution Width 15.3 % (11.5-17.5); Red Cell Distribution Width-SD 50.5 fL; White Blood Count 4.4 K/mm3 (4.8-10.8)
[2024-10-19 07:17] LABS: Albumin Level 3.7 g/dl (3.5-5.0); Chloride 102 mmol/L (98-107); Potassium 4.3 mmoL/L (3.5-5.1); Sodium 130 mmol/L (136-145)
[2024-10-19 07:20] LABS: Alanine Aminotransferase 12 U/L (12-78); Albumin/Globulin Ratio 1.5 (1.1-1.8); Alkaline Phosphatase 78 U/L (38-126); Anion Gap 7.3 mEq/L (5-15); Aspartate Amino Transferase 29 U/L (17-59); Bilirubin,Total 0.4 mg/dl (0.2-1.3); Blood Urea Nitrogen 8 mg/dl (9-20); Calcium 8.6 mg/dl (8.4-10.2); Carbon Dioxide 25 mmol/L (22.0-30.0); Creatinine Clearance Estimated 107 mL/min (50-200); Estimated Glomerular Filt Rate 115 ml/min (>60); GFR (African American) 140 ML/MIN (>60); Globulin 2.5 g/dL (1.3-3.2); Glucose 100 mg/dl (74-100); Phosphorous 3.6 mg/dl (2.5-4.5); Total Protein,Serum 6.2 g/dl (6.3-8.2)
[2024-10-19 07:21] LABS: Magnesium 1.8 mg/dl (1.6-2.3)
[2024-10-19 08:00] VITALS: BP 153/90; PULSE 70; RESP 18; TEMP 36.6; O2SAT 98
--- NOTE | 2024-10-19 08:13 | SW/DCPLANNER ---
I spoke w/ this patient regarding plans once medically stable for discharge. Per MD note patient expressed an interest in inpatient rehab. During my visit this AM patient stated that he has been to several inpatient rehabs in the past and is not interested in returning due to not working for him. I did ask patient which inpatient rehabs he was admitted to in the past and he responded with I do not want to discuss this w/ you right now . Patient voiced that he is interested in outpatient rehab at time of discharge. I will continue to follow up w/ patient and MD. PS has been consulted. Discharge date is unknown at this time.
[2024-10-19] MEDS: FAMOTIDINE 20MG TABLET 20 MG PO ×2 (08:15→20:03)
[2024-10-19] MEDS: levETIRAcetam 500 MG TABLET PO ×2 (08:15→20:03)
[2024-10-19] MEDS: MVI, ADULT NO.1 WITH VIT K 10 ML, THIAMINE HCL 100 MG, MAGNESIUM SULFATE 2 GM in LACTAT... 125 ML IV (08:15)
[2024-10-19] MEDS: SODIUM CHLORIDE 1,000MG TABLET 1000 MG PO ×2 (08:15→17:06)
[2024-10-19] MEDS: LIPASE/PROTEASE/AMYLASE 1 EACH CAPSULE.DR 2 EACH PO ×2 (08:15→17:07)
[2024-10-19] MEDS: THIAMINE 100MG TABLET 100 MG PO (08:15)
[2024-10-19] MEDS: LORazepam 2MG/ML VIAL 2 MG IV (08:28)
--- NOTE | 2024-10-19 08:39 | HMH.PHAINT1 ---
Pharmacy Intervention Comments: HOME MEDICATION LIST VERIFIED USING LIST FROM OUTPATIENT PHARMACY AND PT INTERVIEW
--- NOTE | 2024-10-19 08:46 | PC.NURSE ---
UPON MY ASSESSMENT THIS AM PT WAS ADAMANT THAT I GIVE HIM HIS HOME DOSE OF 2MG ATIVAN. THIS RN EXPLAINED THAT I HAD TO DO MY CIWA ASSESSMENT BEFORE I COULD GIVE HIM ATIVAN DUE TO HOW IT IS ORDERED FOE HIS ETOH WITHDRAWAL PROTOCOL. HE PRECEDED TO GET MORE AGITATED WITH ME AND STATED THAT I WAS REFUSING TO GIVE HIM HIS ATIVAN. THIS RN ATTEMPTED AGAIN TO EDUCATE PT ON HOW HIS ATIVAN WAS ORDERED FOR HIS ETOH WITHDRAWAL AND THAT I WAS NOT REFUSING TO GIVE HIM HIS ATIVAN BUT I HAD TO ASSESS HIM FIRST TO GO BY THE PROTOCOL. HE PROCEEDED TO CALL HIS SISTER WHOM HE STATED WAS, A RETIRED NURSE AND STATED THAT THE NURSES YESTERDAY WERE REFUSING TO GIVE HIM HIS ATIVAN WELL. HE CALLED HIS SISTER AND I EDUCATED HER WELL THAT I WAS NOT REFUSING TO GIVE HIS ATIVAN BUT I HAD TO DO MY ASSESSMENT FIRST TO GO BY THE CIWA PROTOCOL. SHE STATED THAT THE PATIENT HAS WITHDRAWAL SEIZURES FROM NOT TAKING HIS ATIVAN AND HE NEEDS IT SO I NEED TO GET IT FOR HIM BECAUSE HE CAN ONLY GO ABOUT A DAY WITHOUT IT. THIS RN ATTEMPTED TO EDUCATE THE PATIENT'S SISTER THAT WERE ARE GIVING ATIVAN MORE FREQUENTLY DUE TO THE ETOH WITHDRAWAL PROTOCOL BUT CONTINUED TO REITERATE THAT HE CANNOT GO WITHOUT IT. MADE AWARE OF CIWA SCORE OF 17 AND INFORMED CIWAS WOULD BE Q1HR DUE TO MORNING ASSESSMENT.
[2024-10-19] MEDS: FLUTICASONE/UMECLIDIN/VILANTER 100/62.5/25MCG INHALER 1 PUFF IH (11:21)
--- NOTE | 2024-10-19 12:49 | HMH.OTEV ---
OT Inpatient Evaluation Rehab OT IP Evaluation Start: 10/18/24 17:26 Freq: ONCE Status: Active Protocol: Document 10/19/24 12:40 HANNAH (Rec: 10/19/24 12:49 HANNAH [id number]) Rehab OT IP Assessment Subjective History Per HPI narrative: This is a 59-year-old male who presents to the ED today for complaint of vomiting, dry heaves for 3 days. No diarrhea, no abdominal pain but he cannot keep food down. He has had chest pain that has been coming and going. He has seen no blood in his vomiting. He is an alcoholic has had 5 beers this morning. *History of present illness: The patient is a 59-year-old male with a past medical history of COPD (on home inhalers), current tobacco use (40 pack-years), alcoholic pancreatitis, malnutrition, and prior electrolyte imbalances, who presented to the emergency department (ED) with a 3 to 4-day history of worsening nausea and vomiting and abdominal pain. Has had poor p.o. intake. Interested in detox. Alcohol level 124. Also found to have hyponatremia with sodium of 124. Medicine consulted for admission and further management. On evaluation, states he would like to go to rehab. marketing automation specialist consulted. On room air. Resting comfortably. Similar presentation a month ago. Continues to struggle with alcoholism. Subjective I am not getting up. Pt was supine in bed when therapy arrived this morning. pt had face covered with blanket. pt was agreeable to participate in initial OT eval this afternoon. Pt was orient x3. pt reported they live alone in a 2 story home and they only stay on the first floor. pt reported they have handrails on steps if needed to use steps. pt could not detail how many steps. pt have o steps to get into home. pt reports they still drive. pt reports they are ind in ADLs and IADLs. pt reports they do have people to come over and help if needed. pt reports they have a shower chair and grab bars and raised toliet seat. pt reports they do not use a cane or walker for functional mobility, but have their mothers old ones to use if needed. pt refused to sit up on EOB due to not feeling well and feeling like they were going to be sick. nursing entered room to assess pt. pt left supine in bed with call light and all other needs within reach and left with nursing. Objective Patient Orientation Person,Place,Birthday Decrease in Yes Endurance Rehab OT IP prob,goals,plan Problems Date of Evaluation: 10/19/24 OT IP Problems Bed Mobility,Transfers,Balance,Self care,Safety Rehab Potential Rehab Potential Good Equipment Needs Assistive Devices Straight Cane,Standard Walker Plan OT intervention Plan Bed Mobility,Transfers,Balance,Self care,Safety, Therapeutic Exercise OT Plan Frequency Daily Duration LOS Discharge Goals Bed Mobility Ability Independent Sit to Stand Chair Independent Transfer Ability Chair Transfer Independent Ability Chair Transfer Sit to/from Ambulatory Technique Chair Transfer Standard Walker,Straight Cane Assistive Devices Self care skills dressing/undressing independently Feeding Ability Assist with Tray Set Up Overall Commode/ Independent Toilet Transfer Ability Commode/Toilet Sit to/from Ambulatory Transfer Technique Decrease in No Endurance Discharge Plan OT Discharge Plan At this time, pt would benefit from skilled OT services and interventions in acute care to address functional limitations in occupational performance and address QOL . Once d/c from [facility], pt would benefit from skilled rehab placement to enhance QOL and improve occupational performance. Eval Complexity Eval Charge Codes 40844 - Moderate Complexity PHYSICIAN CERTIFICATION: I certify the specified therapy services for Richard Casarez are required, authorized, and reviewed every 30 days.
[2024-10-19] MEDS: LORazepam 2MG/ML VIAL 1 MG IV (14:00)
--- NOTE | 2024-10-19 14:31 | HMH.PTEV ---
Physical Therapy Evaluation Rehab PT IP Evaluation Start: 10/18/24 17:26 Freq: .once Status: Active Protocol: Document 10/19/24 13:15 BREANNA (Rec: 10/19/24 14:31 BREANNA [id number]) Subjective/History History History The patient is a 59-year-old male with a past medical history of COPD (on home inhalers), current tobacco use (40 pack-years), alcoholic pancreatitis, malnutrition, and prior electrolyte imbalances, who presented to the emergency department (ED) with a 3 to 4-day history of worsening nausea and vomiting and abdominal pain. Interested in detox. Alcohol level 124. Patient currently lives at home and is independent with all mobility at baseline. No steps to enter the home and he does not use an AD currently. Subjective Subjective Patient presents resting supine, alert and oriented to name, , place. Pt is willing to participate with PT and ambulate in the hallway this afternoon. He does not c/o pain at this time. Pt returned to bed with call light in reach. [facility] How much help from another person do you currently need... Turning from your None back to your side while in a flat bed without using bedrails? Moving from lying on None back to sitting on the side of a flat bed without using bedrails? Moving to and from a None bed to a chair ( including a wheelchair)? Standing up from a None chair using your arms? (e.g., wheelchair, bedside chair) Walking in hospital None room? Climbing 3-5 steps None with a railing? Mobility Score 24 Mobility Level [place] [id number] Walk 250 feet or more Mobility Calculator Rehab PT IP Eval Objective Appearance Patient Behavior Appropriate,Cooperative Patient Orientation Person,Place,Birthday Difficulty following none instructions Speech Pattern Clear,Appropriate Ambulation Patient Able to Yes Ambulate Ambulation Observation IP General Gait No Deviations/Normal Pattern Observation Ambulation Distance 250 (feet) Ambulation Assistive None Device Ambulation Ability Supervision/Stand by Balance Ability to Arise Able, w/o using arms Sitting Balance Steady, safe Standing Balance Steady, wide stance Dynamic Sitting Normal Balance Ability Dynamic Standing Normal Balance Ability Transfers Bed Transfer Ability Independent Sit to Stand Bed Independent Transfer Ability Rehab PT IP prob,goals,plan Problems Date of Evaluation: 10/19/24 Discharge Plan PT Discharge Plan Patient is currently most appropriate to return home once medically stable for d/c. Pt demonstrated good strength and balance for ambulation 250+ ft with SBA. Skilled acute therapy is not indicated at this time as patient is at baseline and independent with all mobility at this time. Eval Complexity Eval Charge Codes 29377 - High Complexity PHYSICIAN CERTIFICATION: I certify the specified therapy services for Richard Casarez are required, authorized, and reviewed every 30 days.
[2024-10-19 16:00] VITALS: BP 98/54; PULSE 76; RESP 16; TEMP 36.7; O2SAT 98
--- NOTE | 2024-10-19 18:19 | PC.NURSE ---
PT HAS DONE BETTER SINCE HIS EPISODE THIS AM. HE DID GET A LITTLE AGGRAVATED AROUND 1400. CIWA SCALES HAVE BEEN DONE EVER 1-2 HOURS THIS SHIFT. PRN CIWA MEDS HAVE BEEN GIVEN PER JUL. PT IS OPEN TO [place] SELF UPON DISCHARGE.
--- NOTE | 2024-10-19 18:54 | PEERSUPPORT ---
Peer Support Note Patient Information Patient Information: DOS: 10/19/2024 ? Reason: ETOH ? Ps Consult ? Pt admitted to drinking 15-18 beers per day, he stated he did admit to inpatient treatment in September to [facility] in [place], [place]. He left after 6 days due to medical provider not giving him ativan for seizures. ? Ps and pt discussed outpatient option; [facility] for treatment of alcohol use disorder, process and policy expectations of program. -Weekly appointments; transportation needed for initial if direct reporting to [facility] from [facility]. -lending manager- resources, programs and connection to set and meet goals. -Support Groups -Individual Psychotherapy/Clinician -Medical Provider- medication options; Pt interested in Antabuse for AUD -UDS-accountability ? ? Pt stated he does want to go to [facility] and understands that he is responsible for his part, in attending appointments to receive the services staying compliant. ? Plan of action: -Ps to follow up on 10/20/2024 -Pt to discuss options of transportation with Martha Bueno, on 10/20/2024. [employer]- direct to [facility] and home if possible. -Healthy communication with treatment team
[2024-10-19 20:00] VITALS: BP 120/69; PULSE 67; RESP 18; TEMP 36.8; O2SAT 97
[2024-10-19] MEDS: PANTOPRAZOLE 40MG TABLET 40 MG PO (20:03)
[2024-10-19] MEDS: LORATADINE 10MG TABLET 5 MG PO (21:07)
[2024-10-19] MEDS: FLUTICASONE PROP 50MCG NASAL SPRAY 16GM 1 SPRAY NS (21:07)
--- NOTE | 2024-10-19 22:09 | EXP.PN ---
Subjective *Date: 10/19/24 *Time: 22:09 Interval history: Patient doing well this morning, having intermittent withdrawal symptoms. Responding well to Ativan. Continue to monitor, anticipate discharge tomorrow if stable. Exam Data for Last 24 hours Vital signs and Labs for Last 24 Hours: Temp Pulse Resp BP Pulse Ox O2 Del Method 98.3 F 67 18 120/69 97 Room Air 10/19/24 20:00 10/19/24 20:00 10/19/24 20:00 10/19/24 20:00 10/19/24 20:00 10/19/24 20:00 Laboratory Results - last 24 hr 10/19/24 05:17: WBC 4.4 L, RBC 3.98 L, Hgb 12.0 L, Hct 35.5 L, MCV 89.2, MCH 30.2, MCHC 33.8, RDW 15.3, Plt Count 160, MPV 10.0, Neut % (Auto) 59.1, Lymph % (Auto) 24.0, Gregg % (Auto) 9.8 H, Eos % (Auto) 5.2, Baso % (Auto) 1.4, Neut # (Auto) 2.6, Lymph # (Auto) 1.1, Gregg # (Auto) 0.4, Eos # (Auto) 0.2, Baso # (Auto) 0.1, Sodium 130 L, Potassium 4.3, Chloride 102, Carbon Dioxide 25, Anion Gap 7.3, BUN 8 L, Creatinine 0.70, Estimated Creat Clear 107, Estimated GFR 115, Est GFR ( Amer) 140, Glucose 100 D, Calcium 8.6, Phosphorus 3.6, Magnesium 1.8, Total Bilirubin 0.4, AST 29, ALT 12, Alkaline Phosphatase 78, Total Protein 6.2 L, Albumin 3.7 D, Globulin 2.5, Albumin/Globulin Ratio 1.5 I & O for Last 24 hours: Intake & Output 10/16/24 10/17/24 10/18/24 10/19/24 23:59 23:59 23:59 23:59 Intake Total 540 / 780 2004 Output Total 1000 / 1000 1125 / 1125 Balance -460 / -220 880 / 880 Weight 68.946 kg 66.451 kg Constitutional Constitutional: no acute distress *Routine HEENT Exam Head: Present normocephalic Eye: Present EOMI and PERRL ENT: Present mucous membranes moist *Routine Neck Exam Neck: Present supple; Absent lymphadenopathy *Routine Respiratory Exam Respiratory: Present CTA bilaterally *Routine Cardiovascular Exam Cardiovascular: Present RRR *Routine Abdominal Exam Abdominal: Present soft and normoactive bowel sounds; Absent tenderness *Routine Extremities Exam Extremities: Absent cyanosis, clubbing or edema *Routine Skin Exam Skin: Present warm; Absent rash *Routine Neurological Exam Neurological: Present alert and oriented X3 Assessment and Plan *Assessment and plan (1) Alcohol withdrawal: Status: Resolved Category: Medical Code(s): F10.939 - Alcohol use, unspecified with withdrawal, unspecified (2) Chronic hyponatremia: Status: Resolved Category: Medical Code(s): E87.1 - Hypo-osmolality and hyponatremia (3) Lung nodule: Status: Acute Category: Medical Code(s): R91.1 - Solitary pulmonary nodule (4) Chronic pancreatitis due to chronic alcoholism: Status: Acute Category: Medical Code(s): K86.0 - Alcohol-induced chronic pancreatitis; F10.20 - Alcohol dependence, uncomplicated (5) Malnutrition compromising bodily function: Status: Acute Category: Medical Code(s): E46 - Unspecified protein-calorie malnutrition (6) COPD (chronic obstructive pulmonary disease): Status: Acute Category: Medical Code(s): J44.9 - Chronic obstructive pulmonary disease, unspecified (7) Pancreatic pseudocyst: Status: Acute Category: Medical Code(s): K86.3 - Pseudocyst of pancreas (8) Bipolar 1 disorder: Status: Acute Category: Medical Code(s): F31.9 - Bipolar disorder, unspecified (9) Seizure disorder: Status: Acute Category: Medical Code(s): G40.909 - Epilepsy, unspecified, not intractable, without status epilepticus Plan Richard Casarez is a 59-year-old male who presents with nausea and vomiting. Found to have hyponatremia. Concern for alcohol withdrawal. Discussed case with ER physician, request admission for CIWA protocol and correction of hyponatremia. I agreed to admit for further management. Problems addressed as follows: Alcohol withdrawal History of alcohol withdrawal seizures -Initiated on CIWA protocol. Ativan ordered per protocol. -Loaded with phenobarbital 130 mg once. Reevaluate daily for further dosing -Seizure precautions -Initial alcohol level of 124. Will consult pediatric sports medicine specialist on Friday to assist with detox/rehab if patient is interested - Repeat CBC, CMP, magnesium ordered for the morning. - Vitamin replacement with daily rally pack, thiamine 100 mg tablet daily. ? CIWAs between 8 and 17 today, will continue Ativan as needed per [facility] protocol. Anticipate discharge tomorrow as he was improved. Nausea and vomiting - Zofran 4 mg IV as every 6 hours for nausea Hyponatremia: - Sodium 124-130, better than previous presentations with sodium as low as 118. Monitor closely for correction between 8 and 10 mEq a day. Seizure disorder: - continue home Keppra 500 mg p.o. twice daily. - Ativan per [facility] protocol Chronic pancreatic insufficiency: Continue Creon 3 times a day with meals COPD: Does not appear to be in exacerbation, DuoNebs as needed every 6 hours. Resume home Trelegy Full code Regular diet
[2024-10-20] VITALS: BP 130/74; PULSE 65; RESP 18; TEMP 36.7; O2SAT 100
[2024-10-20] MEDS: LORazepam 1MG TABLET 1 MG PO ×3 (01:03→08:38)
[2024-10-20 04:00] VITALS: BP 123/64; PULSE 89; RESP 14; TEMP 36.8; O2SAT 96; BMI 22.1
--- NOTE | 2024-10-20 04:25 | PC.NURSE ---
Patient is alert and oriented x4. He was observed to have eyes closed, respirations even and unlabored on room air, and no apparent distress throughout the majority of the night. CIWA scores were performed (Q2HR on average). See CIWA Scale interventions for specific scores and withdrawal symptoms presented. Patient has complained of ongoing anxiety as well. Oral Ativan was administered as appropriately per MAR, according to each CIWA score. Other scheduled medications administered per MAR as well. Flonase and Claritin were new orders obtained from Joe Auguste APRN and given for patient's complaint of nasal congestion. Auscultation of his heart, lungs, and bowels were within normal findings. Vital signs stable. Patient continues to tolerate a regular diet quite well. He ambulates independently with supervision in his room/to the bathroom without difficulties. Urinal at bedside for urination needs. Seizure pads in place per precautions. At this time, the patient is resting in bed without any further complaints. No new needs at this time. Call light within reach.
[2024-10-20] MEDS: FLUTICASONE/UMECLIDIN/VILANTER 100/62.5/25MCG INHALER 1 PUFF IH (06:10)
[2024-10-20 06:52] LABS: Chloride 102 mmol/L (98-107)
[2024-10-20 06:53] LABS: Albumin Level 3.6 g/dl (3.5-5.0); Sodium 131 mmol/L (136-145)
[2024-10-20 06:55] LABS: Alanine Aminotransferase 13 U/L (12-78); Aspartate Amino Transferase 24 U/L (17-59); Blood Urea Nitrogen 7 mg/dl (9-20); Carbon Dioxide 24 mmol/L (22.0-30.0); Creatinine Clearance Estimated 106 mL/min (50-200); Estimated Glomerular Filt Rate 115 ml/min (>60); GFR (African American) 140 ML/MIN (>60)
[2024-10-20 06:56] LABS: Albumin/Globulin Ratio 1.6 (1.1-1.8); Alkaline Phosphatase 65 U/L (38-126); Bilirubin,Total 0.2 mg/dl (0.2-1.3); Calcium 8.3 mg/dl (8.4-10.2); Globulin 2.3 g/dL (1.3-3.2); Glucose 155 mg/dl (74-100); Total Protein,Serum 5.9 g/dl (6.3-8.2)
[2024-10-20 08:00] VITALS: BP 141/78; PULSE 68; RESP 16; TEMP 36.6; O2SAT 98
[2024-10-20 08:15] VITALS: O2SAT 98
[2024-10-20] MEDS: LIPASE/PROTEASE/AMYLASE 1 EACH CAPSULE.DR 2 EACH PO (08:34)
[2024-10-20] MEDS: LORATADINE 10MG TABLET 5 MG PO (08:34)
[2024-10-20] MEDS: FAMOTIDINE 20MG TABLET 20 MG PO (08:35)
[2024-10-20] MEDS: THIAMINE 100MG TABLET 100 MG PO (08:35)
[2024-10-20] MEDS: SODIUM CHLORIDE 1,000MG TABLET 1000 MG PO (08:35)
[2024-10-20] MEDS: levETIRAcetam 500 MG TABLET PO (08:35)
[2024-10-20] MEDS: FLUTICASONE PROP 50MCG NASAL SPRAY 16GM 1 SPRAY NS (08:35)
[2024-10-20] MEDS: MVI, ADULT NO.1 WITH VIT K 10 ML, THIAMINE HCL 100 MG, MAGNESIUM SULFATE 2 GM in LACTAT... 125 ML IV (08:56)
--- NOTE | 2024-10-20 12:39 | EXP.DC.SUM ---
General Admission date:: 10/18/24 HPI HPI HPI: The patient is a 59-year-old male with a past medical history of COPD (on home inhalers), current tobacco use (40 pack-years), alcoholic pancreatitis, malnutrition, and prior electrolyte imbalances, who presented to the emergency department (ED) with a 3 to 4-day history of worsening nausea and vomiting and abdominal pain. Has had poor p.o. intake. Interested in detox. Alcohol level 124. Also found to have hyponatremia with sodium of 124. Medicine consulted for admission and further management. On evaluation, states he would like to go to rehab. recreational specialist consulted. On room air. Resting comfortably. Similar presentation a month ago. Continues to struggle with alcoholism. Hospital Course Hospital Course Hospital Course: Richard Casarez is a 59-year-old male who presents with nausea and vomiting. Concern for alcohol withdrawal. Discussed case with ER physician, request admission for CIWA protocol and correction of hyponatremia. #Alcohol intoxication #Alcohol withdrawal #History of alcohol withdrawal seizures ? Monitored on CIWA protocol, given Ativan as needed. Initial alcohol level 124. ? Clinically improved with phenobarbital, Ativan as needed. No significant withdrawal symptoms or seizures. ? Peer support consulted, will follow-up with [facility]. Has previously gone into inpatient rehab twice but unfortunately has relapsed. ? Continue daily vitamins. Patient is interested in Antabuse, advised to follow-up with [facility]. Naltrexone conjugated due to oxycodone therapy. #Hyponatremia: - Sodium 124-131, better than previous presentations with sodium as low as 118. #Seizure disorder #Anxiety - continue home Keppra 500 mg p.o. twice daily. Continue home Ativan 2 mg twice daily as needed. #Chronic pancreatic insufficiency ? Continue Creon 3 times a day with meals, oxycodone 10 mg twice daily as needed. #COPD: ? Does not appear to be in exacerbation, DuoNebs as needed every 6 hours. Resume home Trelegy Exam Data for Last 24 hours Vital signs and Labs for Last 24 Hours: Temp Pulse Resp BP Pulse Ox O2 Del Method 97.9 F 68 16 141/78 H 98 Room Air 10/20/24 08:00 10/20/24 08:00 10/20/24 08:00 10/20/24 08:00 10/20/24 08:15 10/20/24 10:58 Laboratory Results - last 24 hr 10/20/24 06:09: Sodium 131 L, Potassium 4.0, Chloride 102, Carbon Dioxide 24, Anion Gap 9.0, BUN 7 L, Creatinine 0.70, Estimated Creat Clear 106, Estimated GFR 115, Est GFR ( Amer) 140, Glucose 155 H, Calcium 8.3 L, Total Bilirubin 0.2, AST 24, ALT 13, Alkaline Phosphatase 65, Total Protein 5.9 L, Albumin 3.6, Globulin 2.3, Albumin/Globulin Ratio 1.6 I & O for Last 24 hours: Intake & Output 10/17/24 10/18/24 10/19/24 10/20/24 23:59 23:59 23:59 23:59 Intake Total 540 / 780 2004 / 2581 1296 / 1296 Output Total 1000 / 1000 1125 / 1125 0 / 0 Balance -460 / -220 880 / 1456 1296 / 1296 Weight 68.946 kg 66.451 kg 66.134 kg Constitutional Constitutional: no acute distress *Routine HEENT Exam Head: Present normocephalic Eye: Present EOMI and PERRL ENT: Present mucous membranes moist *Routine Neck Exam Neck: Present supple; Absent lymphadenopathy *Routine Respiratory Exam Respiratory: Present CTA bilaterally *Routine Cardiovascular Exam Cardiovascular: Present RRR *Routine Abdominal Exam Abdominal: Present soft and normoactive bowel sounds; Absent tenderness *Routine Extremities Exam Extremities: Absent cyanosis, clubbing or edema *Routine Skin Exam Skin: Present warm; Absent rash *Routine Neurological Exam Neurological: Present alert and oriented X3 Results Data Completed and Pending Labs on day of discharge: Labs from last 24 hours 10/20/24 06:09 Sodium 131 L Potassium 4.0 Chloride 102 Carbon Dioxide 24 Anion Gap 9.0 BUN 7 L Creatinine 0.70 Estimated Creat Clear 106 Estimated GFR 115 Est GFR ( Amer) 140 Glucose 155 H Calcium 8.3 L Total Bilirubin 0.2 AST 24 ALT 13 Alkaline Phosphatase 65 Total Protein 5.9 L Albumin 3.6 Globulin 2.3 Albumin/Globulin Ratio 1.6 DS: Diagnosis Discharge Diagnosis (1) Alcohol withdrawal: Status: Resolved Code(s): F10.939 - Alcohol use, unspecified with withdrawal, unspecified (2) Chronic hyponatremia: Status: Resolved Code(s): E87.1 - Hypo-osmolality and hyponatremia (3) Lung nodule: Status: Acute Code(s): R91.1 - Solitary pulmonary nodule (4) Chronic pancreatitis due to chronic alcoholism: Status: Acute Code(s): K86.0 - Alcohol-induced chronic pancreatitis; F10.20 - Alcohol dependence, uncomplicated (5) Malnutrition compromising bodily function: Status: Acute Code(s): E46 - Unspecified protein-calorie malnutrition (6) COPD (chronic obstructive pulmonary disease): Status: Acute Code(s): J44.9 - Chronic obstructive pulmonary disease, unspecified (7) Pancreatic pseudocyst: Status: Acute Code(s): K86.3 - Pseudocyst of pancreas (8) Bipolar 1 disorder: Status: Acute Code(s): F31.9 - Bipolar disorder, unspecified (9) Seizure disorder: Status: Acute Code(s): G40.909 - Epilepsy, unspecified, not intractable, without status epilepticus Meds Home Medications and Allergies Home Medications ?Medication ?Instructions ?Recorded ?Confirmed ?Type folic acid 1 mg tablet 1 mg PO DAILY #100 tabs 12/01/23 10/19/24 Rx albuterol sulfate 90 mcg/actuation 1 inh inhalation Q4HP PRN 02/12/24 10/19/24 Rx breath activated powder Shortness Of Breath #1 ea inhaler,sensor fluticasone propionate 50 2 spray intranasal BID 04/14/24 10/19/24 History mcg/actuation nasal spray,suspension (Flonase Allergy Relief) sucralfate 1 gram tablet (Carafate) 1 g PO BID 04/14/24 10/19/24 History ascorbic acid (vitamin C) 250 mg 250 mg PO DAILY #100 tabs 05/07/24 10/19/24 Rx tablet fluticasone fur. 100 mcg-umeclid 1 inh inhalation DAILY 30 days #60 07/18/24 10/19/24 Rx 62.5 mcg-vilant 25 mcg ea inhalat.powder (Trelegy Ellipta) trazodone 100 mg tablet 100 mg PO DAILY #90 tabs 07/21/24 10/19/24 Rx [id number]-rvpycpgi-jgdqbfy 2 cap PO BIDWMEAL #360 caps 07/28/24 10/19/24 Rx 36,000-114,000-180,000 unit capsule,delay rel levetiracetam 500 mg tablet 500 mg PO BID #60 tabs 08/09/24 10/19/24 Rx oxycodone 10 mg tablet 10 mg PO BIDP PRN Moderate Pain 09/20/24 10/19/24 Rx (Scale Score 5-6) #60 tabs ipratropium 0.5 mg-albuterol 3 mg 3 ml inhalation Q6HP PRN Shortness 09/21/24 10/19/24 Rx (2.5 mg base)/3 mL nebulization Of Breath 30 days #180 mL soln thiamine HCl (vitamin B1) 100 mg 100 mg PO DAILY #100 tabs 10/04/24 10/19/24 Rx tablet lorazepam 2 mg tablet 2 mg PO BIDP PRN Anxiety #60 tabs 10/06/24 10/19/24 Rx docusate sodium 100 mg capsule 100 mg PO BID 10/19/24 10/19/24 History melatonin 5 mg tablet 10 mg PO HS PRN Sleep 10/19/24 10/19/24 History pantoprazole 40 mg tablet,delayed 40 mg PO DAILY 10/19/24 10/19/24 History release New Prescriptions to Start Prescriptions: Allergies Allergy/AdvReac Type Severity Reaction Status Date / Time cephalexin (From Keflex) Allergy Mild Hives Verified 10/04/24 13:08 sulfamethoxazole (From Allergy Unknown Hives Verified 10/04/24 13:08 BACTRIM) trimethoprim (From BACTRIM) Allergy Unknown Hives Verified 10/04/24 13:08 Discharge Plan Disposition Patient Disposition: Home, Self-Care Condition: Fair Follow up Plan Follow up with: Richard Edgar MD [Primary Care Provider, [facility]] - 10/25/24 1:00 pm Prescriptions/Medication Reconciliation: Continued folic acid 1 mg tablet 1 mg PO DAILY Qty: 100 10RF albuterol sulfate 90 mcg/actuation aero powdr breath act w/sensor 1 inh IH Q4HP PRN (Reason: Shortness Of Breath) Qty: 1 12RF thiamine HCl (vitamin B1) 100 mg tablet 100 mg PO DAILY Qty: 100 10RF trazodone 100 mg tablet 100 mg PO DAILY Qty: 90 3RF ascorbic acid (vitamin C) 250 mg tablet 250 mg PO DAILY Qty: 100 10RF awcdac-fonwwsnk-hapezbz 36,000-114,000- 180,000 unit capsule,delayed release(DR/EC) 2 cap PO BIDWMEAL Qty: 360 12RF levetiracetam 500 mg tablet 500 mg PO BID Qty: 60 2RF oxycodone 10 mg tablet 10 mg PO BIDP PRN (Reason: Moderate Pain (Scale Score 5-6)) Qty: 60 0RF lorazepam 2 mg tablet 2 mg PO BIDP PRN (Reason: Anxiety) Qty: 60 0RF sucralfate [Carafate] 1 gram tablet 1 g PO BID fluticasone propionate [Flonase Allergy Relief] 50 mcg/actuation spray,suspension 2 spray intranasal BID Rx Instructions: administer into each nostril Trelegy Ellipta 100-62.5-25 mcg Blister With Device 1 inh inhalation DAILY 30 Days Qty: 60 0RF ipratropium-albuterol 0.5 mg-3 mg(2.5 mg base)/3 mL Solution For Nebulization 3 ml inhalation Q6HP PRN (Reason: Shortness Of Breath) 30 Days Qty: 180 5RF pantoprazole 40 mg tablet,delayed release (DR/EC) 40 mg PO DAILY docusate sodium 100 mg capsule 100 mg PO BID melatonin 5 mg tablet 10 mg PO HS PRN (Reason: Sleep) Patient Comments: TAKE 2 TABLETS BY MOUTH ONCE A DAY NEEDED Discontinued sodium chloride 1,000 mg tablet,soluble 1,000 mg PO BIDWMEAL 30 Days Qty: 60 0RF Problem Reconciliation Problems Reviewed?: Yes Patient Discharge Instructions Patient Instructions: Alcohol Withdrawal, Nausea and Vomiting-Adult Print Language: Mongolian Providers Primary Care Provider: Richard Edgar Admit Provider: João Milan Attending Provider: João Milan
--- NOTE | 2024-10-20 13:12 | SW/DCPLANNER ---
Called and scheduled transportation for patient with [facility]. Vish RODARTE Machine [employer]
--- NOTE | 2024-10-21 10:48 | SW/DCPLANNER ---
Spoke with patient on the phone. Patient stated that he is doing well. Patient stated that he has an appointment today at 1 with [facility]. Patient stated that he is aware of his upcoming appointment. Patient stated that he has no concerns or questions at this time. Patient was not prescribed any new medicine. Vish Kimble
--- NOTE | 2024-10-21 18:01 | PEERSUPPORT ---
Peer Support Note Patient Information Patient Information: DOS: 10/21/2024 Ps encountered pt at [facility] for initial appointment. Pt admitted to drinking alcohol (one beer) following discharge and (one beer) when he woke up that he was feeling very shaky and nervous. He does acknowledge and identify this is not healthy and not helpful to his recovery. He is hopeful that [facility] will be able to help him, but still feels as if he is having withdrawals from alcohol. He had a friend drive him to [facility], for his appointment. Ps encouraged him to be mindful of his responsibility in sobriety and decisions he makes that are helpful to his recovery. Ps will follow up with pt on 10/22/2024.
--- NOTE | 2024-11-17 14:03 | PEERSUPPORT ---
Peer Support Note Patient Information Patient Information: DOS: ? Pt shared he completed [facility] inpatient treatment for alcohol use. He was discharged on 11/16/2024. He was able to attend an AA meeting in [place], then planning to go to an [facility] in [facility]. ? Pt had vivitrol injection before completing treatment, aware to continue with outpatient to continue injections. He is proud to say he has been able to save money with not drinking and being inpatient treatment. ? Pt to contact [facility] for continued alcohol use treatment and vivitrol management. ? Ps provided praises for his actions and efforts to his recovery, encouraging continued attention to his sobriety as priority and using safe coping skills as well as staying in contact with sober supports. ? Ps will continue to follow up periodically for recovery focused support. ?
== END 2024-10-20 14:28 | disposition home or self-care (01) ==
LOC: ER 15:21 → 2ND 16:04
PROVIDERS: Nurse Practitioner; Student in an Organized Health Care Education/Training Program; Admitting Provider Internal Medicine Adolescent Medicine; Emergency Provider Emergency Medicine; PCP Family Medicine; Visit Provider Internal Medicine Adolescent Medicine
DX: F10.239 Alcohol dependence with withdrawal, unspecified (principal); F10.229 Alcohol dependence with intoxication, unspecified; Y90.6 Blood alcohol level of 120-199 mg/100 ml; E87.1 Hypo-osmolality and hyponatremia; G40.909 Epilepsy, unspecified, not intractable, without status epilepticus; F41.9 Anxiety disorder, unspecified; J44.9 Chronic obstructive pulmonary disease, unspecified; K86.0 Alcohol-induced chronic pancreatitis; F17.210 Nicotine dependence, cigarettes, uncomplicated
CPT/HCPCS: 96361; 96374; 96375 ×3; 96376; 99285; 36415; 80053; 80320; 81001; 83690; 83735; 84100; 84484; 85025; 93005; 94640; 97163; 97166; G0378; J2060; J2405; J2560; J3411; J3475; J7030; J7120

== ENCOUNTER 2024-12-27 12:44 | Emergency (ER) | payer MEDICAID, SELFPAY ==
[2024-12-27] VITALS (13 sets, daily range): BP systolic 86–122; BP diastolic 51–77; PULSE 71–92; RESP 14–22; TEMP 36.4–36.6; O2SAT 93–99; BMI 21.2
--- NOTE | 2024-12-27 12:46 | ECG_ITS ---
APPROVED REPORT Exam: Resting ECG HR:91 bpm ECG Measurements Heart Rate 91 AXES OR 162 P 85 QRSd 88 QRS 84 QT 347 T 77 QTc 395 Conclusion SINUS RHYTHM NORMAL ECG UNCONFIRMED REPORT Electronically signed by : JUDIE NICHOLAS, 12/27/2024 23:44:14
--- NOTE | 2024-12-27 12:49 | HMH.EDGENADL ---
Discharge Plan Disposition Patient Disposition: Home, Self-Care Condition: Good Prescriptions Prescriptions: No Action folic acid 1 mg tablet 1 mg PO DAILY Qty: 100 10RF albuterol sulfate 90 mcg/actuation aero powdr breath act w/sensor 1 inh IH Q4HP PRN (Reason: Shortness Of Breath) Qty: 1 12RF thiamine HCl (vitamin B1) 100 mg tablet 100 mg PO DAILY Qty: 100 10RF permethrin [Elimite] 5 % cream 1 applic topical ONCE Qty: 60 1RF Rx Instructions: apply to entire body surface from neck down let soak in for 12 hours then shower off repeat in 5 days if needed trazodone 100 mg tablet 100 mg PO DAILY Qty: 90 3RF Vivitrol 380 mg suspension,extended rel recon 380 mg IM QMONTH Qty: 1 10RF lorazepam 2 mg tablet 2 mg PO BIDP PRN (Reason: Anxiety) Qty: 60 0RF ascorbic acid (vitamin C) 250 mg tablet 250 mg PO DAILY Qty: 100 10RF iazglw-fmnmigry-itmxqny 36,000-114,000- 180,000 unit capsule,delayed release(DR/EC) 2 cap PO BIDWMEAL Qty: 360 12RF ivermectin 6 mg tablet See Rx Instructions PO WEEKLY Qty: 8 0RF Rx Instructions: four tablets orally weekly; levetiracetam 500 mg tablet 500 mg PO BID Qty: 60 2RF sucralfate [Carafate] 1 gram tablet 1 g PO BID fluticasone propionate [Flonase Allergy Relief] 50 mcg/actuation spray,suspension 2 spray intranasal BID Rx Instructions: administer into each nostril Trelegy Ellipta 100-62.5-25 mcg Blister With Device 1 inh inhalation DAILY 30 Days Qty: 60 0RF ipratropium-albuterol 0.5 mg-3 mg(2.5 mg base)/3 mL Solution For Nebulization 3 ml inhalation Q6HP PRN (Reason: Shortness Of Breath) 30 Days Qty: 180 5RF pantoprazole 40 mg tablet,delayed release (DR/EC) 40 mg PO DAILY docusate sodium 100 mg capsule 100 mg PO BID melatonin 5 mg tablet 10 mg PO HS PRN (Reason: Sleep) Patient Comments: TAKE 2 TABLETS BY MOUTH ONCE A DAY NEEDED Referrals Follow up/Referrals: Provider,Referral, MD [Referring, Medical] - See instructions Activity Restrictions/Add. Instructions Additional Instructions/Restrictions: You are okay to go to the [facility] at this time. Clinical Impressions Clinical Impression: Alcohol intoxication, Chest pain, Nausea, Acute hyponatremia Print Language Print Language: Wolof Discharge ED Provider: Kun Mena General Adult HPI <Kun Mena MD - Last Filed: 12/27/24 19:23> General Chief complaint: Chest Pain Stated complaint: chest pain Time Seen by Provider: 12/27/24 12:49 History of Present Illness HPI narrative: Richard Casarez is a 59-year-old male with past medical history of alcohol abuse, alcohol withdrawal, reported alcohol withdrawal seizures on Ativan 2 mg twice daily, seizures on Keppra, bipolar disorder, who presents to the emergency department for complaints of chest pain, nausea and dry heaving. Patient states that he started drinking alcohol heavily again in November of this year and drinks a 12 pack of beer daily. He states that his last drink was this morning and he drank 7 beers and also took 2 mg of his Ativan. Patient states that today, he has had pain on the left side of his chest as well as nausea and dry heaving. He denies any abdominal pain. He states that he is interested in stopping drinking again. He does state that he is taking Vivitrex but is continue to drink alcohol. Related Data Home Medications ?Medication ?Instructions ?Recorded ?Confirmed fluticasone propionate 50 2 spray intranasal BID 04/14/24 12/03/24 mcg/actuation nasal spray,suspension (Flonase Allergy Relief) sucralfate 1 gram tablet (Carafate) 1 g PO BID 04/14/24 12/03/24 docusate sodium 100 mg capsule 100 mg PO BID 10/19/24 12/03/24 melatonin 5 mg tablet 10 mg PO HS PRN Sleep 10/19/24 12/03/24 pantoprazole 40 mg tablet,delayed 40 mg PO DAILY 10/19/24 12/03/24 release Previous Rx's ?Medication ?Instructions ?Recorded folic acid 1 mg tablet 1 mg PO DAILY #100 tabs 12/01/23 albuterol sulfate 90 mcg/actuation 1 inh inhalation Q4HP PRN 02/12/24 breath activated powder Shortness Of Breath #1 ea inhaler,sensor ascorbic acid (vitamin C) 250 mg 250 mg PO DAILY #100 tabs 05/07/24 tablet fluticasone fur. 100 mcg-umeclid 1 inh inhalation DAILY 30 days #60 07/18/24 62.5 mcg-vilant 25 mcg ea inhalat.powder (Trelegy Ellipta) trazodone 100 mg tablet 100 mg PO DAILY #90 tabs 07/21/24 olbmuu-mulyiemr-ysbnsoe 2 cap PO BIDWMEAL #360 caps 07/28/24 36,000-114,000-180,000 unit capsule,delay rel ipratropium 0.5 mg-albuterol 3 mg 3 ml inhalation Q6HP PRN Shortness 09/21/24 (2.5 mg base)/3 mL nebulization Of Breath 30 days #180 mL soln thiamine HCl (vitamin B1) 100 mg 100 mg PO DAILY #100 tabs 10/04/24 tablet permethrin 5 % topical cream 1 applic topical ONCE 2 doses #60 11/18/24 (Elimite) grams ivermectin 6 mg tablet See Rx Instructions PO WEEKLY 2 11/24/24 doses #8 tabs levetiracetam 500 mg tablet 500 mg PO BID #60 tabs 11/29/24 lorazepam 2 mg tablet 2 mg PO BIDP PRN Anxiety #60 tabs 12/02/24 naltrexone microspheres 380 mg 380 mg IM QMONTH #1 ea 12/02/24 intramuscular suspension,extended release (Vivitrol) Allergies Allergy/AdvReac Type Severity Reaction Status Date / Time cephalexin (From Keflex) Allergy Mild Hives Verified 12/03/24 15:14 sulfamethoxazole (From Allergy Unknown Hives Verified 12/03/24 15:14 BACTRIM) trimethoprim (From BACTRIM) Allergy Unknown Hives Verified 12/03/24 15:14 [facility] <Kun Mena MD - Last Filed: 12/27/24 19:23> [facility] Disclaimer: The information contained in this section may have been updated after the patient was seen, as this information can be updated by other users. Medical History (Updated 12/27/24 @ 14:17 by Kun Mena MD) Alcohol abuse Abdominal pain, chronic, epigastric Substance use disorder Closed fracture of head of left ulna Hyponatremia Chronic pain Chronic pancreatitis Piloerection Paresthesias Nausea, vomiting, and diarrhea Periumbilical abdominal pain Cough Lung nodule Acute on chronic pancreatitis Acute on chronic pancreatitis Hypochloremia Hearing loss Pancreatic pseudocyst Chronic alcohol abuse Bipolar 1 disorder Seizures Abdominal aneurysm Excessive cerumen in left ear canal SBO (small bowel obstruction) Acute pancreatitis Cachexia Acute on chronic pancreatitis Gastrostomy tube dependent Metastatic non-small cell lung cancer Severe protein-calorie malnutrition Lung cancer metastatic to bone Abdominal pain Pancreatic pseudocyst Abdominal pain Bone marrow disorder Cirrhosis COPD (chronic obstructive pulmonary disease) GERD (gastroesophageal reflux disease) Gastric outlet obstruction History of lung cancer Pancreatic pseudocyst Alcoholic pancreatitis Anxiety History of lung cancer Pancreatitis, acute Gallstone pancreatitis Pancreatitis Hypokalemia Surgical History History of local excision of skin lesion History of aortic aneurysm repair History of cholecystectomy Hx of cholecystectomy Family History Other Cancer of lung Emphysema lung Social History Smoking Status: Current every day smoker tobacco type: cigarettes packs per day: 3 pack-years: 201 alcohol intake: former substance use type: denies use current occupational status: unemployed and disabled Travel in the last 8 weeks?: None household members: family housing: house current occupational exposures/hazards: No caffeine: No Have you lived/traveled outside [place] in past 30 days?: No Contact w/someone who lives/traveled outside US past 30 days?: No Exposure to someone with infectious disease in past 14 days?: No Do you have a fever (greater than 100.4 F or 38 C)?: No Have you tested positive for COVID-19?: No Exposed to someone with COVID-19 in past 14 days?: No Do you have a sore throat?: No Do you have a cough?: No Do you have any weakness?: No Do you have any diarrhea?: No Are you experiencing any unusual bleeding?: No Do you have any muscle aches/pain?: No Do you have any abdominal pain?: No Are you experiencing loss of taste or smell?: No Other Medical History Have you received the Flu Vaccine for this season: No Have you received the Pneumonia Vaccine: No <Kun Mena MD - Last Filed: 12/27/24 19:23> ROS Obtained: Yes Systems reviewed as appropriate & no additional complaints except as documented Physical Exam <Kun Mena MD - Last Filed: 12/27/24 19:23> General General appearance: alert, in no apparent distress and appears intoxicated Head Head exam: atraumatic Eye Eye exam: Present normal appearance ENT ENT exam: Present normal external ear exam Neck Neck exam: Present full ROM Chest Chest inspection: Present symmetric chest wall rise Respiratory Respiratory exam: Present normal lung sounds bilaterally; Absent respiratory distress, wheezes or stridor Cardiovascular Cardiovascular exam: Present regular rate and normal rhythm Abdominal Exam Abdominal exam: Present soft; Absent distention, tenderness or guarding exam: Present deferred Extremities Exam Extremities exam: Present normal inspection Back Exam Back exam: Present normal inspection Neurological Exam Neurological exam: Present alert and oriented X3 Psychiatric Psychiatric exam: Present normal affect Skin Skin exam: Present warm and dry Medical Decision Making <Kun Mena MD - Last Filed: 12/27/24 19:23> Medical Records Screening: Per USPSTF and CDC recommendations, given the prevalence of disease in our region, it is our hospital?s policy to screen for HIV and viral Hepatitis for all patients aged 18 and over and those with ongoing risk factors. [place] Inquiry Pt receiving controlled substance: No Vital Signs: 12/27/24 12:44 12/27/24 13:00 12/27/24 13:30 Temperature 97.5 F L Temperature Source Oral Pulse Rate 77 Pulse Rate [Radial] 86 Respiratory Rate 18 19 15 Blood Pressure 114/73 115/74 Blood Pressure [Right Arm] 122/76 Blood Pressure Mean [Right Arm] 91 Blood Pressure Source Blood Pressure Source [Right Arm] Automatic Cuff Blood Pressure Position Blood Pressure Position [Right Arm] Sitting 02 Sat by Pulse Oximetry 97 93 L Oxygen Delivery Method Room Air 12/27/24 14:00 12/27/24 14:30 12/27/24 15:00 Temperature Temperature Source Pulse Rate 92 H 71 80 Pulse Rate [Radial] Respiratory Rate 14 21 16 Blood Pressure 103/67 L 98/63 L 86/53 L Blood Pressure [Right Arm] Blood Pressure Mean [Right Arm] Blood Pressure Source Blood Pressure Source [Right Arm] Blood Pressure Position Blood Pressure Position [Right Arm] 02 Sat by Pulse Oximetry 96 98 99 Oxygen Delivery Method 12/27/24 15:30 12/27/24 16:00 12/27/24 16:30 Temperature Temperature Source Pulse Rate 81 75 Pulse Rate [Radial] Respiratory Rate 16 22 21 Blood Pressure 116/77 114/67 89/51 L Blood Pressure [Right Arm] Blood Pressure Mean [Right Arm] Blood Pressure Source Blood Pressure Source [Right Arm] Blood Pressure Position Blood Pressure Position [Right Arm] 02 Sat by Pulse Oximetry 98 94 L Oxygen Delivery Method 12/27/24 17:00 12/27/24 17:19 12/27/24 17:32 Temperature Temperature Source Pulse Rate 72 80 Pulse Rate [Radial] Respiratory Rate 21 16 18 Blood Pressure 88/52 L 99/67 L 97/70 L Blood Pressure [Right Arm] Blood Pressure Mean [Right Arm] Blood Pressure Source Blood Pressure Source [Right Arm] Blood Pressure Position Blood Pressure Position [Right Arm] 02 Sat by Pulse Oximetry 93 L 97 Oxygen Delivery Method 12/27/24 17:53 Temperature 97.8 F Temperature Source Oral Pulse Rate 88 Pulse Rate [Radial] Respiratory Rate 18 Blood Pressure 107/70 L Blood Pressure [Right Arm] Blood Pressure Mean [Right Arm] Blood Pressure Source Automatic Cuff Blood Pressure Source [Right Arm] Blood Pressure Position Sitting Blood Pressure Position [Right Arm] 02 Sat by Pulse Oximetry Oxygen Delivery Method Room Air Lab Data Lab Results 12/27/24 12:55: WBC 6.1, RBC 3.91 L, Hgb 12.6 L, Hct 34.5 L, MCV 88.2, MCH 32.2 H, MCHC 36.5 H, RDW 14.0, Plt Count 174, MPV 9.4, Neut % (Auto) 63.7, Lymph % (Auto) 20.3, Burt % (Auto) 8.3, Eos % (Auto) 6.4, Baso % (Auto) 1.1, Neut # (Auto) 3.9, Lymph # (Auto) 1.2, Burt # (Auto) 0.5, Eos # (Auto) 0.4, Baso # (Auto) 0.1, VBG pH 7.39, VBG pCO2 35.2, VBG pO2 151.9 H, VBG HCO3 21.0 L, VBG Total CO2 22.1 L, VBG O2 Saturation 98.7 H, VBG Base Excess -3.9 L, VBG Lactic Acid 2.8 H, Sodium 125 L, Potassium 4.0, Chloride 91 L, Carbon Dioxide 22, Anion Gap 16.0 H, BUN 7 L, Creatinine 0.60 L, Estimated Creat Clear 119, Estimated GFR 138, Est GFR ( Amer) 167, Glucose 95, Calcium 8.3 L, Magnesium 1.8, Total Bilirubin 0.8, AST 41, ALT 17, Alkaline Phosphatase 100, Troponin I < 0.01, Total Protein 6.7, Albumin 4.3, Globulin 2.4, Albumin/Globulin Ratio 1.8, Lipase 45, Plasma/Serum Alcohol 182 H 12/27/24 16:10: Troponin I < 0.01 12/27/24 12:55 12/27/24 12:55 Orders (Tests/Meds): ED MEDICATIONS Discontinued Medications Generic Name Dose Route Start Last Admin Trade Name Almasq PRN Reason Stop Dose Admin Folic Acid 1 mg 12/27/24 14:26 12/27/24 14:30 Folic Acid 1mg Tablet PO 12/27/24 14:27 1 mg ONCE ONE Administration Lactated Ringer's 1,000 mls @ 999 mls/hr 12/27/24 13:20 12/27/24 13:26 Lactated Ringer's 1000 Ml Bag IV 12/27/24 14:20 999 mls/hr .Q1H1M ONE Administration Ondansetron HCl 4 mg 12/27/24 13:00 12/27/24 13:24 Ondansetron 4mg/2ml Vial IV 12/27/24 13:01 4 mg ONCE ONE Administration Thiamine HCl 100 mg 12/27/24 14:25 12/27/24 14:30 Thiamine 100mg Tablet PO 12/27/24 14:26 100 mg ONCE ONE Administration ORDERS Category Date Time Status CXR --portable [XR chest portable] Stat Exams 12/27/24 12:55 Completed CBC w/Auto Diff [Complete Blood Count Auto Diff] Stat Lab 12/27/24 12:55 Completed CMP [Comprehensive Metabolic Panel] Stat Lab 12/27/24 12:55 Completed Ethyl Alcohol Stat Lab 12/27/24 12:55 Completed Lipase Stat Lab 12/27/24 12:55 Completed Magnesium Stat Lab 12/27/24 12:55 Completed Troponin I Q3H Lab 12/27/24 16:10 Completed Troponin I Stat Lab 12/27/24 12:55 Completed VBG [Venous Blood Gas] Stat RT 12/27/24 12:55 Completed ECG Data Tracing #1: I reviewed this ECG and interpreted as documented below: Normal sinus rhythm. No ST elevations or depressions. No T wave inversions. QTc normal at 395 Medical Decision Narrative: Richard Casarez is a 59-year-old male with past medical history of alcohol abuse, alcohol withdrawal, reported alcohol withdrawal seizures on Ativan 2 mg twice daily, seizures on Keppra, bipolar disorder, who presents to the emergency department for complaints of chest pain, nausea and dry heaving. Patient states that he started drinking alcohol heavily again in November of this year and drinks a 12 pack of beer daily. He states that his last drink was this morning and he drank 7 beers and also took 2 mg of his Ativan. Patient states that today, he has had pain on the left side of his chest as well as nausea and dry heaving. He denies any abdominal pain. He states that he is interested in stopping drinking again. He does state that he is taking Vivitrex but is continue to drink alcohol. On arrival, patient is normotensive, heart rate within norm limits, breathing comfortably on room air with appropriate oxygen saturation. Afebrile. Physical exam, stated above, revealed an overall well-appearing male in no distress. He is intoxicated. Abdomen is soft, nontender nondistended. Cardiopulmonary exam is unremarkable. He is alert and following commands and answering questions appropriately. Differential diagnosis includes, but is not limited to: ACS, pericarditis, pneumonia, pneumothorax, alcohol intoxication, acute pancreatitis, low concern for alcohol withdrawal at this time based on patient's recent alcohol use and lack of withdrawal symptoms. The most morbid conditions were considered and workup was based on these. Workup in the emergency department included: Chest x-ray, EKG, CBC, CMP, lipase, UDS, UA, alcohol level, magnesium level, troponin, VBG. Patient was treated with 4 mg IV Zofran EKG interpreted by me personally. No ischemic findings. See interpretation above. Chest x-ray interpreted by me personally. No focal consolidation, no pneumothorax, no widened mediastinum, no enlargement of the cardiac silhouette. Unremarkable chest x-ray. See radiology report for details. Laboratory studies show no leukocytosis, stably low hemoglobin at 12.6, hematocrit 34.5. Platelets normal at 174. Lactate mildly elevated at 2.8 (will administer 1 L lactated ringer) pH normal 7.39. pCO2 normal at 35.2. Bicarb mildly low at 21. Sodium is low at 125 (was previously 131 on 10/20/2024) and does appear chronically low but this is below his baseline, likely secondary to beer [place], potassium normal at 4, chloride mildly low at 91. Anion gap is mildly elevated at 16, likely secondary to elevated lactic acid. No AMA. Liver enzymes within normal limits. Bilirubin normal at 0.8. Magnesium normal at 1.8. Initial troponin less than 0.01. Lipase normal at 45. Alcohol level is 182. I did talk with Dr. Milan with hospital medicine service for possible admission given his mild hyponatremia and alcohol detox. He notes that he has been admitted several times for the exact same complaints and always promises to stop drinking alcohol and once he completes his detox, he goes right back to drinking alcohol again. Will attempt to have our credit collection specialist evaluate the patient. At this time, patient's care was handed off to the oncoming physician, Dr. Corrales, pending peer support evaluation and repeat troponin. If unable to provide reliable outpatient follow-up, Dr. Milan is agreeable to admit the patient. Nia Corrales DO I assumed care of the patient at 1500. Patient second troponin in the emergency department was unremarkable. Patient was excepted at the outside house. At this time I felt the patient was appropriate and stable given that he had an appropriate place for treatment. Patient was otherwise discharged home in stable condition. <Nia Corrales DO - Last Filed: 12/27/24 17:51> Vital Signs: 12/27/24 12:44 12/27/24 13:00 12/27/24 13:30 Temperature 97.5 F L Temperature Source Oral Pulse Rate 77 Pulse Rate [Radial] 86 Respiratory Rate 18 19 15 Blood Pressure 114/73 115/74 Blood Pressure [Right Arm] 122/76 Blood Pressure Mean [Right Arm] 91 Blood Pressure Source Blood Pressure Source [Right Arm] Automatic Cuff Blood Pressure Position Blood Pressure Position [Right Arm] Sitting 02 Sat by Pulse Oximetry 97 93 L Oxygen Delivery Method Room Air 12/27/24 14:00 12/27/24 14:30 12/27/24 15:00 Temperature Temperature Source Pulse Rate 92 H 71 80 Pulse Rate [Radial] Respiratory Rate 14 21 16 Blood Pressure 103/67 L 98/63 L 86/53 L Blood Pressure [Right Arm] Blood Pressure Mean [Right Arm] Blood Pressure Source Blood Pressure Source [Right Arm] Blood Pressure Position Blood Pressure Position [Right Arm] 02 Sat by Pulse Oximetry 96 98 99 Oxygen Delivery Method 12/27/24 15:30 12/27/24 16:00 12/27/24 16:30 Temperature Temperature Source Pulse Rate 81 75 Pulse Rate [Radial] Respiratory Rate 16 22 21 Blood Pressure 116/77 114/67 89/51 L Blood Pressure [Right Arm] Blood Pressure Mean [Right Arm] Blood Pressure Source Blood Pressure Source [Right Arm] Blood Pressure Position Blood Pressure Position [Right Arm] 02 Sat by Pulse Oximetry 98 94 L Oxygen Delivery Method 12/27/24 17:00 12/27/24 17:19 12/27/24 17:32 Temperature Temperature Source Pulse Rate 72 80 Pulse Rate [Radial] Respiratory Rate 21 16 18 Blood Pressure 88/52 L 99/67 L 97/70 L Blood Pressure [Right Arm] Blood Pressure Mean [Right Arm] Blood Pressure Source Blood Pressure Source [Right Arm] Blood Pressure Position Blood Pressure Position [Right Arm] 02 Sat by Pulse Oximetry 93 L 97 Oxygen Delivery Method 12/27/24 17:53 Temperature 97.8 F Temperature Source Oral Pulse Rate 88 Pulse Rate [Radial] Respiratory Rate 18 Blood Pressure 107/70 L Blood Pressure [Right Arm] Blood Pressure Mean [Right Arm] Blood Pressure Source Automatic Cuff Blood Pressure Source [Right Arm] Blood Pressure Position Sitting Blood Pressure Position [Right Arm] 02 Sat by Pulse Oximetry Oxygen Delivery Method Room Air Lab Data Lab Results 12/27/24 12:55: WBC 6.1, RBC 3.91 L, Hgb 12.6 L, Hct 34.5 L, MCV 88.2, MCH 32.2 H, MCHC 36.5 H, RDW 14.0, Plt Count 174, MPV 9.4, Neut % (Auto) 63.7, Lymph % (Auto) 20.3, Burt % (Auto) 8.3, Eos % (Auto) 6.4, Baso % (Auto) 1.1, Neut # (Auto) 3.9, Lymph # (Auto) 1.2, Burt # (Auto) 0.5, Eos # (Auto) 0.4, Baso # (Auto) 0.1, VBG pH 7.39, VBG pCO2 35.2, VBG pO2 151.9 H, VBG HCO3 21.0 L, VBG Total CO2 22.1 L, VBG O2 Saturation 98.7 H, VBG Base Excess -3.9 L, VBG Lactic Acid 2.8 H, Sodium 125 L, Potassium 4.0, Chloride 91 L, Carbon Dioxide 22, Anion Gap 16.0 H, BUN 7 L, Creatinine 0.60 L, Estimated Creat Clear 119, Estimated GFR 138, Est GFR ( Amer) 167, Glucose 95, Calcium 8.3 L, Magnesium 1.8, Total Bilirubin 0.8, AST 41, ALT 17, Alkaline Phosphatase 100, Troponin I < 0.01, Total Protein 6.7, Albumin 4.3, Globulin 2.4, Albumin/Globulin Ratio 1.8, Lipase 45, Plasma/Serum Alcohol 182 H 12/27/24 16:10: Troponin I < 0.01 Orders (Tests/Meds): ED MEDICATIONS Discontinued Medications Generic Name Dose Route Start Last Admin Trade Name Freq PRN Reason Stop Dose Admin Folic Acid 1 mg 12/27/24 14:26 12/27/24 14:30 Folic Acid 1mg Tablet PO 12/27/24 14:27 1 mg ONCE ONE Administration Lactated Ringer's 1,000 mls @ 999 mls/hr 12/27/24 13:20 12/27/24 13:26 Lactated Ringer's 1000 Ml Bag IV 12/27/24 14:20 999 mls/hr .Q1H1M ONE Administration Ondansetron HCl 4 mg 12/27/24 13:00 12/27/24 13:24 Ondansetron 4mg/2ml Vial IV 12/27/24 13:01 4 mg ONCE ONE Administration Thiamine HCl 100 mg 12/27/24 14:25 12/27/24 14:30 Thiamine 100mg Tablet PO 12/27/24 14:26 100 mg ONCE ONE Administration ORDERS Category Date Time Status CXR --portable [XR chest portable] Stat Exams 12/27/24 12:55 Completed CBC w/Auto Diff [Complete Blood Count Auto Diff] Stat Lab 12/27/24 12:55 Completed CMP [Comprehensive Metabolic Panel] Stat Lab 12/27/24 12:55 Completed Ethyl Alcohol Stat Lab 12/27/24 12:55 Completed Lipase Stat Lab 12/27/24 12:55 Completed Magnesium Stat Lab 12/27/24 12:55 Completed Troponin I Q3H Lab 12/27/24 16:10 Completed Troponin I Stat Lab 12/27/24 12:55 Completed VBG [Venous Blood Gas] Stat RT 12/27/24 12:55 Completed Medical Decision Narrative: Richard Casarez is a 59-year-old male with past medical history of alcohol abuse, alcohol withdrawal, reported alcohol withdrawal seizures on Ativan 2 mg twice daily, seizures on Keppra, bipolar disorder, who presents to the emergency department for complaints of chest pain, nausea and dry heaving. Patient states that he started drinking alcohol heavily again in November of this year and drinks a 12 pack of beer daily. He states that his last drink was this morning and he drank 7 beers and also took 2 mg of his Ativan. Patient states that today, he has had pain on the left side of his chest as well as nausea and dry heaving. He denies any abdominal pain. He states that he is interested in stopping drinking again. He does state that he is taking Vivitrex but is continue to drink alcohol. On arrival, patient is normotensive, heart rate within norm limits, breathing comfortably on room air with appropriate oxygen saturation. Afebrile. Physical exam, stated above, revealed an overall well-appearing male in no distress. He is intoxicated. Abdomen is soft, nontender nondistended. Cardiopulmonary exam is unremarkable. He is alert and following commands and answering questions appropriately. Differential diagnosis includes, but is not limited to: ACS, pericarditis, pneumonia, pneumothorax, alcohol intoxication, acute pancreatitis, low concern for alcohol withdrawal at this time based on patient's recent alcohol use and lack of withdrawal symptoms. The most morbid conditions were considered and workup was based on these. Workup in the emergency department included: Chest x-ray, EKG, CBC, CMP, lipase, UDS, UA, alcohol level, magnesium level, troponin, VBG. Patient was treated with 4 mg IV Zofran EKG interpreted by me personally. No ischemic findings. See interpretation above. Chest x-ray interpreted by me personally. No focal consolidation, no pneumothorax, no widened mediastinum, no enlargement of the cardiac silhouette. Unremarkable chest x-ray. See radiology report for details. Laboratory studies show no leukocytosis, stably low hemoglobin at 12.6, hematocrit 34.5. Platelets normal at 174. Lactate mildly elevated at 2.8 (will administer 1 L lactated ringer) pH normal 7.39. pCO2 normal at 35.2. Bicarb mildly low at 21. Sodium is low at 125 (was previously 131 on 10/20/2024) and does appear chronically low but this is below his baseline, likely secondary to beer Poto cesario, potassium normal at 4, chloride mildly low at 91. Anion gap is mildly elevated at 16, likely secondary to elevated lactic acid. No AMA. Liver enzymes within normal limits. Bilirubin normal at 0.8. Magnesium normal at 1.8. Initial troponin less than 0.01. Lipase normal at 45. Alcohol level is 182. I did talk with Dr. Milan with hospital medicine service for possible admission given his mild hyponatremia and alcohol detox. He notes that he has been admitted several times for the exact same complaints and always promises to stop drinking alcohol and once he completes his detox, he goes right back to drinking alcohol again. Will attempt to have our credit collection specialist evaluate the patient. At this time, patient's care was handed off to the oncoming physician, Dr. Corrales, pending peers support evaluation. If unable to provide reliable outpatient follow-up, Dr. Milan is agreeable to admit the patient. Nia Corrales, DO I assumed care of the patient at 1500. Patient second troponin in the emergency department was unremarkable. Patient was excepted at the outside house. At this time I felt the patient was appropriate and stable given that he had an appropriate place for treatment. Patient was otherwise discharged home in stable condition. Critical Care <Kun Mena MD - Last Filed: 12/27/24 19:23> Critical Care Time Critical Care Time: No
--- OUTSIDE RECORDS SUMMARY | 2024-12-27 12:51 | XMS_ITS | Clinical Summary ---
Author Organization [facility] Address [address] [place] [address] Care Team Providers Care Heavy Equipment Technician Name Role Phone Richard Edgar MD Primary Care Provider [phone] Allergies Active Allergy Reactions Criticality Noted Date Comments Cephalexin Unknown - Patient states they do not know rxn details,Hives Medium 04/28/2020 Diphenhydramine Unknown - Patient states they do not know rxn details Low 05/30/2019 Sulfamethoxazole Other - please docum ent in the comment field Low 11/25/2017 Sulfamethoxazole-Trimethoprim Hives,Othe r - please document in the comment field Medium 06/02/2013 Trimethoprim Hives,Other - please document in the comment field Medium 11/25/2017 Medications LORazepam (Ativan) 1 MG tablet Take 2 tablets (2 mg) by mouth 2 (two) times a day if needed. Active levETIRAcetam (Keppra) 500 MG tablet Take 1 tablet (500 mg) by mouth 2 (two) times a day. Active pancrelipase, Blx-Kytr-Lunm, (Creon) 22023-41820 units capsule See administration instructions. Take two capsules by mouth three times daily with meals and one capsule by mouth two times daily with snacks Active pantoprazole (Protonix) 40 MG EC tablet Take 1 tablet (40 mg) by mouth 2 (two) times a day. Do not crush, chew, or split. Active polyethylene glycol (Miralax) 17 GM/SCOOP powder Take 17 g by mouth every night. Active sucralfate (Carafate) 1 g tablet Take 1 tablet (1 g) by mouth 2 (two) times a day. Active Enteral Nutrition Supplies [facility] Feeding tube supply kit, tubing, extension sets 1 each 01/11/20 Active folic acid (Folvite) 1 MG tablet Take 1 tablet (1 mg) by mouth 1 (one) time each day. 90 tablet 3 10/09/19 24 Active naltrexone (ReVia) 50 MG tablet Take 1 tablet (50 mg) by mouth 1 (one) time each day. 30 tablet 10/08/19 24 Active Additional Information Patient not taking.Reported on 10/14/2023 thiamine (Vitamin B-1) 100 MG tablet Take 1 tablet (100 mg) by mouth 1 (one) time each day. 90 tablet 3 10/10/19 24 Active docusate sodium (Colace) 100 MG capsule Take 2 capsules (200 mg) by mouth every night. Active Aspirin Effervescent (YANNI-SELTZER PO) Take 1 Dose by mouth 1 (one) time each day if needed (indigestion). Active oxyCODONE (Roxicodone) 10 MG immediate release tablet Take 1 tablet (10 mg) by mouth 2 (two) times a day if needed for moderate pain. Active calcium carbonate (Tums) 500 MG chewable tablet Chew 2 tablets (1,000 mg) 3 (three) times a day if needed for indigestion or heartburn. Active Ascorbic Acid (vitamin C) 250 MG tablet Take 1 tablet (250 mg) by mouth 1 (one) time each day. 30 tablet 5 11/03/19 24 Active Active Problems Problem Noted Date Diagnosed Date Alcohol withdrawal with inpatient treatment, unc omplicated 10/07/2023 Gastroesophageal reflux disease 01/13/2023 Liver cirrhosis 01/13/2023 Severe protein-calorie malnutrition 01/13/2023 Acute on chronic pancreatitis 12/21/2022 Pancreatitis, unspecified pancreatitis type 07/17 Pancreatic pseudocyst 06/23/2022 Overview (06/23/2022): Too distant to drain endoscopically Chronic pancreatitis 06/23/2022 Hypomagnesemia 06/23/2022 Overview (06/23/2022): Replace as needed Hypophosphatemia 06/23/2022 Overview (06/23/2022): Replace as needed Chronic obstructive pulmonary disease 06/20/2022 Overview (06/20/2022): No oxygen Gastric outlet obstruction 06/13/2022 Overview (06/23/2022): S/p PEG-J Vent G for symptoms On J feeds - advancing to goals Epigastric pain 09/14/2021 History of alcohol use disorder 09/13/2021 Overview (06/23/2022): Complicates care No CIWA needed Seizure disorder 09/13/2021 Overview (09/13/2021): - Restart home Keppra and Ativan. Anemia 09/13/2021 Overview (09/13/2021): - Etiology likely from prolonged EtOH use and recent hematemesis. - Transfuse if patient hemodynamically unstable. 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 NPO at midnight Hematemesis 09/13/2021 09/17/2021 Overview (09/13/2021): - IV Protonix BID. - Follow-up CBC. Immunizations Immunization Administration Dates Next Due Influenza, injectable, quadr ivalent, preservative free 03/04/2022,02/24/2020 Pneumococcal 20-carmela Conj Vaccine 023(Deferred: Patient Refused - Patient would like to follow up with PCP about this.) Pneumococcal Conjugate PCV 13 09/14/2021 Pneumococcal Polysaccharide PPV23 03/06/2016, Family History Medical History Relation Name Comments Emphysema Father Arthritis Mother Hypertension Mother thrombocytosis Mother Relation Name Status Comments Father Mother Social History Tobacco Use Types Packs/Day Years Used Date Smoking Tobacco: Every Day Cigarettes 2 49.6 Started: 05/19/1975 Passive Smoke Exposure: Current Smokeless Tobacco: Never Tobacco Cessation:Ready to Q uit: Not Asked; Counseling Given: Not Answered Comments:vape Alcohol Use Standard Drinks/Week Comments Not Currently 0 (1 standard drink = 0.6 oz pure alcohol) Alcoholic Drinks/day: Daily alcohol use PHQ-2 Answer Date Recorded Patient Health Questionnaire-2 Score 0 01/09/2023 CAGE ASSESSMENT Answer Date Recorded Cage unable to access Not on file 08/04/2022 Maximum number of drinks you had on a given occasion in the last month? 0 drinks 08/04/2022 How many alcoholic Beverages do you typically drink in a week? 0 - 7 per week 08/04/2022 Have you ever felt you should CUT down on your d rinking? 1 08/04/2022 Have you been ANNOYED by peo ple criticizing your drinking? 0 08/04/2022 Have you felt GUILTY about your drinking? 1 08/04/2022 Have you had a drink first t ynug in the morning (EYE-INPATIENT PHARMACIST) to 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 or to get rid of a hangover? 1 08/04/2022 CAGE Questionnaire Score 3 023 PHQ-2A Answer Date Recorded Patient Health Questionnaire-2 Score 0 01/09/2023 Sex and Gender Information Value Date Recorded Sex Assigned at Male 08/04/2022 11:45 AM EDT Legal Sex Male 8:02 PM EDT Gender Identity Male 08/04/2022 11:45 AM EDT Sexual Orientation Straight 08/04/2022 11 :45 AM EDT Last Filed Vital Signs Vital Sign Reading Time Taken Comments Blood Pressure 134/76 10/14/2023 2:34 PM EDT Pulse 84 10/14/2023 2:34 PM EDT Temperature 36.8 C (98.3 F) 10/14/2023 2:34 PM EDT Respiratory Rate 16 10/08/2023 12:51 PM EDT Oxygen Saturation 100% 10/14/2023 2:34 PM EDT Inhaled Oxygen Concentration - - Weight 54.1 kg (119 lb 4.3 oz) 10/14/2023 2:34 P M EDT Height 172.7 cm (5' 8 ) 10/14/2023 2:34 PM EDT Body Mass Index 18.13 10/14/2023 2:34 PM EDT Plan of Treatment Health Maintenance Due Date Last Done Comments [facility]-Infant/Child/Adol SDOH Screenings 1965 [id number] Vaccine (#1) 1970 [facility]- SDOH Screenings 1983 [facility]-Adult SDOH Screenings 1983 [facility]-DTaP,Tdap,and Td Vaccines (1 - Tdap) 1984 [facility]-Hepatitis A Vaccines (1 of 2 - Risk 2-dose series) 1984 [facility]-Hepatitis B Vaccines (1 of 3 - 19+ 3-dose series) 1984 CT Colonography 2010 Colonoscopy 2010 FIT-DNA 2010 FIT 2010 FOBT 2010 Sigmoidoscopy 2010 [facility]-Colorectal Cancer Screening 2010 [facility]-Zoster Vaccines (1 of 2) 2015 [facility]-Depression Screening 01/10/2024 01/09/2023 [facility]-Influenza Vaccine (#1) 2025 03/04/2022, [facility]-Pneumococcal Vaccine: 50+ Years (3 of 3 - PCV20 or PCV21) 09/14/2026 09/14/2021, 03/06/2016, 03/05/2016 [facility]-Lung Cancer Screening Discontinued 2019, 05/02/2016, 04/02/2016, Additional history exists [facility]-Diabetes: Hemoglobin A1C Discontinued 03/06/2021 [facility]-HIV Screening Completed 06/13/2022 [facility]-Hepatitis C Screening Completed 2023, 06/13/2022, 11/10/2018 HPV Vaccines Aged Out No longer eligi ble based on patient's age to complete this topic [facility]-HIB Vaccines Aged Out No longer e ligible based on patient's age to complete this topic [facility]-IPV Vaccines Aged Out No longer e ligible based on patient's age to complete this topic [facility]-Rotavirus Vaccines Aged Out No lo nger eligible based on patient's age to complete this topic Medical Devices Implanted Type Area Dance Costume Designer Device Identifier Shelf Expiration Date Model / Serial / Lot Stephen 18 - [id number] Implanted:Qty: 1 on 09/17/2021 at [facility] [employer] [id number] 05/22/2024 [id number] 00-06 0 / / [id number] Description:Implanted by Dr Juan Ramon Ta Vip Vascular Closure Device 6 Fr - [id number] Implanted:Qty: 1 on 09/17/2021 at [facility] [id number] 06/18/2022 [id number] / / [id number] Description:Deployed by Dr Nanci Ta Procedures Procedure Name Priority Date/Time Associated Diagnosis Comments HEPATITIS C ANTIBODY - ED W/REFLEX TO HCV QUANT PCR STAT 10/07/2023 12:32 PM EDT HIV 1/2 ANTIBODY/ANTIGEN SCREEN WITH REFLEX TO HIV I/II DIFFERENTIATION STAT 06/13/2022 5:58 PM EST HEMOGLOBIN A1C Routine 03/06/2021 2:26 PM EDT Alcohol-induced chronic pancreatitis (CMS/HCC) from Last 3 Months or Most Recently Relevant to Health Maintenance Results * Hepatitis C Antibody - ED (10/07/2023 12:32 PM EDT) Hepatitis C Antibody Negative Negative 10/07/2023 1:37 PM EDT [facility] Blood Venous blood specimen / Unknown Venipuncture / Unknown 10/07/2023 12:32 PM EDT 10/07/2023 12:47 PM EDT us Melchor Estrada MD LAB BLOOD ORDERABLES Final Resu lt [facility] [address] [place] [address] * HIV 1 & 2 Antibody/Antigen Screen (06/13/2022 5:58 PM EST) HIV 1 & 2 Antibody/Anti gen Screen Nonreactive Nonreactive 06/13/2022 7:11 PM EST [facility] Blood Venous blood specimen / Unknown Venipuncture / Unknown 06/13/2022 5:58 PM EST 06/13/2022 6:09 PM EST Norah Mathew DO LAB BLOOD ORDERABLES Final Re sult Performing Organization Address City/[facility]/ZIP Co de Phone Number [facility] [address] [place] [address] * Hemoglobin A1c (03/06/2021 2:26 PM EDT) Hemoglobin A1c 4.7 <5.7 % 03/06/2021 3:33 PM EDT [facility] Blood Venous blood specimen / Unknown Venipuncture / Unknown 03/06/2021 2:26 PM EDT 03/06/2021 2:26 PM EDT Narrative [facility] - 03/06/2021 3:33 PM EDT HA1C Interpretive Data: Diagnosis of Diabetes: Diabetic > or = 6.5% Pre-diabetic 5.7 to 6.4% Non-diabetic < or = 5.6% Glycemic Targets for Type I and Type II Diabetics: Non- Adults <7.0% Adults <6.0% Children and Adolescents <7.5% Source: [place] [employer]. Standards of medical care in diabetes,2017. Diabetes Care.2017:40 (suppl 1):S1-S135. HbA1c assay performed by an ion-exchange chromatography method that is certified traceable to the DCCT. Teresa Banerjee MD LAB BLOOD ORDERABLES Final Resul t Performing Organization Address City/[facility]/ZIP Co de Phone Number [facility] [address] [place] [address] from Last 3 Months or Most Recently Relevant to Health Maintenance Insurance Gracie NGUYEN FUENTES [id number] [facility] MEDICAID Advance Directives * Full Code (Latest Code Status on File) Date Activated Date Inactivated Comments 10/07/2023 6:42 PM 10/08/2023 4:22 PM Question Answer Comments Patient has decision-making capacity? Yes * Full Code Date Activated Date Inactivated Comments 01/11/2023 4:04 PM 01/14/2023 8:13 PM Question Answer Comments Patient has decision-making capacity? Yes * Full Code Date Activated Date Inactivated Comments 12/21/2022 5:54 AM 12/23/2022 7:57 PM Question Answer Comments Patient has decision-making capacity? Yes * Full Code Date Activated Date Inactivated Comments 08/04/2022 5:24 AM 08/06/2022 5:23 PM Question Answer Comments Patient has decision-making capacity? Yes * Full Code Date Activated Date Inactivated Comments 06/13/2022 10:32 PM 06/26/2022 8:11 PM Question Answer Comments Patient has decision-making capacity? Yes Care Teams Heavy Equipment Technician Relationship Specialty Start Date End Date Richard Edgar MD PCP - General 09/29/20
--- OUTSIDE RECORDS SUMMARY | 2024-12-27 12:51 | XMS_ITS ---
Author Name Interface, [id number] lity Address [address] [place] [address] [facility] Address [address] [place], [place] [id number] Allergies and Adverse Reactions Plan Reason for Visit Encounters Diagnostic Results Medications Problems Vital Signs Notes Section
--- OUTSIDE RECORDS SUMMARY | 2024-12-27 12:51 | XMS_ITS ---
Author Name Interface, [id number] lity Address [address] [place] [address] [facility] Address [address] [place], [place] [id number] Allergies and Adverse Reactions Plan Reason for Visit Encounters Diagnostic Results Medications Problems Vital Signs Notes Section
--- OUTSIDE RECORDS SUMMARY | 2024-12-27 12:51 | XMS_ITS | CCD ---
Author Name Interface, [id number] lity Address [address] [place] [address] Organization [facility] Address [address] [place], [place] [id number] Care Team Providers Care Evaluation Manager Name Role Phone Jennifer CHIRINOS, Bill Brar Unavailable Unavailable Allergies and Adverse Reactions Reason for Visit Functional Status Medications Problems Social History
--- OUTSIDE RECORDS SUMMARY | 2024-12-27 12:51 | XMS_ITS | Clinical Summary ---
Author Organization [facility] Address [address], [address] [place] [address] Care Team Providers Care Litigation Docket Manager Name Role Phone Marlyn Quintero MD, Pantera Primary Care Provider U navailmira Allergies Active Allergy Reactions Criticality Noted Date Comments Sulfamethoxazole-Trimethoprim 2015 Medications omeprazole (PRILOSEC) 20 MG delayed release capsule Take 20 mg by mouth daily Active prochlorperazin e (COMPAZINE) 10 MG tablet Take 1 tablet by mouth every 6 hours as needed (nausea) 120 tablet 3 7 Active ondansetron (ZOFRAN) 8 MG tablet Take 1 tablet by mouth every 8 hours as needed for Nausea or Vomiting 12 tablet 6 7 Active oxyCODONE-aceta minophen (PERCOCET) 10-325 MG per tabletIndicatio ns:Secondary malignant neoplasm of bone (HCC) Take 1 tablet by mouth every 6 hours as needed for Pain . 90 tablet 7 Active LORazepam (ATIVAN) 2 MG tabletIndicatio ns:Anxiety Take 1 tablet by mouth every 6 hours as needed for Anxiety 90 tablet 7 Active Folinic Acid-Vit B6-Vit B12 4-50-2 MG TABS Take 1 tablet by mouth daily Active b complex vitamins capsule Take 1 capsule by mouth daily Active albuterol sulfate HFA (VENTOLIN HFA) 108 (90 Base) MCG/ACT inhaler Inhale 2 puffs into the lungs every 6 hours as needed for Wheezing or Shortness of Breath Active Active Problems Problem Noted Date Diagnosed Date Acute hepatitis 06/17/2017 Alcohol abuse 06/17/2017 Chronic right shoulder pain 05/07/2016 Malignant neoplasm of upper lobe of right lung 1 07/08/2015 Cancer Staging:Clinical:Stage IV(TX, NX, M1b) - Signed by Bill Rodriguez MD on 05/07/2016 Pathologic: Unsigned Secondary malignant neoplasm of bone 04/30/2016 Pulmonary nodule, right 04/16/2016 Tobacco abuse 04/16/2016 Chronic cough 04/16/2016 B12 deficiency 04/16/2016 Osteoarthritis of multiple joints 04/16/2016 Gastroesophageal reflux disease without esophagi tis 04/16/2016 Social History Tobacco Use Types Packs/Day Years Used Date Smoking Tobacco: Every Day Cigarettes 2 40 Smokeless Tobacco: Never Tobacco Cessation:Ready to Q uit: Yes; Counseling Given: Yes Alcohol Use Standard Drinks/Week Comments Yes 42 (1 standard drink = 0.6 oz pu re alcohol) 6 cans daily Sex and Gender Information Value Date Recorded Sex Assigned at Not on file Legal Sex Male 11:40 AM EST Gender Identity Not on file Sexual Orientation Not on file Last Filed Vital Signs Vital Sign Reading Time Taken Comments Blood Pressure 142/80 06/20/2017 1:51 PM EST Pulse 97 06/20/2017 1:51 PM EST Temperature 35.8 C (96.5 F) 06/20/2017 1:51 PM EST Respiratory Rate 18 06/20/2017 1:51 PM EST Oxygen Saturation 97% 06/20/2017 1:51 PM EST Inhaled Oxygen Concentration - - Weight 78.7 kg (173 lb 6.4 oz) 06/20/2017 2:37 A M EST Height 167.6 cm (5' 6 ) 06/17/2017 7:07 PM EST Body Mass Index 27.99 06/17/2017 7:07 PM EST Plan of Treatment Not on file Insurance MEDICAID [employer] Advance Directives * Full Code (Latest Code Status on File) Date Activated Date Inactivated Comments 06/17/2017 6:50 PM 06/20/2017 5:30 PM Care Teams Litigation Docket Manager Relationship Specialty Start Date End Date Pantera Cline MD [address] [place] [address] PCP - General 09/03/17
--- OUTSIDE RECORDS SUMMARY | 2024-12-27 12:51 | XMS_ITS ---
Author Name Interface, [id number] lity Address [address] [id number] Organization [facility] Address [address] [place] [address] Allergies and Adverse Reactions Medication/Group Name Reaction Severity Date SULFAMETHOXAZOLE-TRIMETHOPRIM 12/30/2017 Plan Date Type Value 08/16/2020 APPOINTMENT EMAIL SENT/NOTED CB 01/20/2018 APPOINTMENT MACI+TX 01/20/2018 APPOINTMENT MACI+TX 01/20/2018 APPOINTMENT MACI+TX 12/30/2017 APPOINTMENT TX ONLY 12/30/2017 APPOINTMENT TX ONLY 12/23/2017 APPOINTMENT scan results 12/23/2017 APPOINTMENT scan results 12/23/2017 LABORDER CMP 12/23/2017 LABORDER CBC w/ auto diff 12/23/2017 LABORDER FISH panel 12/30/2017 LABORDER CMP 12/30/2017 LABORDER CBC w/ auto diff 01/20/2018 LABORDER CMP 01/20/2018 LABORDER CBC w/ auto diff Reason for Visit EMAIL SENT/NOTED CB Encounters Date Name 12/23/2017 Non-small cell lung cancer (disorder) 12/23/2017 Peripheral neuropath y 12/23/2017 Secondary malignant neoplasm of bone (disorder) Diagnostic Results Date Type Test Units Lower Limit Upper Limit Result Flag Comments Status Ordered By Specimen Source Lab Address 12/23 Lab Repor t See director medical d 12/30 Lab Repor t See director medical d 12/30 Lab Repor t See director medical d 12/31 Lab Repor t See director medical d 01/07 Lab Repor t See director medical d Medications Date Name Route Dose Frequency Instructions Start Date End Date Status Potassium Chloride Oral ER Tab orally 1.0 tablet extended release every day quantity sufficient for 3 days; 1 refills active Prednisolone Oral Liquid orally 20.0 every 12 hours for 5 days active Levetiracetam Oral (Keppra) orally 250.0 mg 2 times per day active 05/26 4 ML pembrolizumab 25 MG/ML Injection intravenous 200.0 mg once Dilute with NS or D5W to a final concentration of 1-10 mg/mL. Infuse with low protein binding filter (0.2 - 5 micron). Do not mix with other drugs. Do not shake. 2018 active 05/26 Hydrocortisone IV intravenously 100.0 mg Re-initiate treatment only upon physician approval. 2018 active 05/26 diphenhydramin e hydrochloride 0.5 MG/ML Injectable Solution intravenously 50.0 mg Re-initiate treatment only upon physician approval. 2018 active 05/26 Methylpredniso lone IV intravenously 125.0 mg Re-initiate treatment only upon physician approval. 2018 active 05/05 Methylpredniso lone IV intravenously 125.0 mg Re-initiate treatment only upon physician approval. 2017 active 05/05 Hydrocortisone IV intravenously 100.0 mg Re-initiate treatment only upon physician approval. 2017 active 05/05 4 ML pembrolizumab 25 MG/ML Injection intravenous 200.0 mg once Dilute with NS or D5W to a final concentration of 1-10 mg/mL. Infuse with low protein binding filter (0.2 - 5 micron). Do not mix with other drugs. Do not shake. 2017 active 05/05 diphenhydramin e hydrochloride 0.5 MG/ML Injectable Solution intravenously 50.0 mg Re-initiate treatment only upon physician approval. 2017 active 04/14 4 ML pembrolizumab 25 MG/ML Injection intravenous 200.0 mg once Dilute with NS or D5W to a final concentration of 1-10 mg/mL. Infuse with low protein binding filter (0.2 - 5 micron). Do not mix with other drugs. Do not shake. 2017 active 04/14 diphenhydramin e hydrochloride 0.5 MG/ML Injectable Solution intravenously 50.0 mg Re-initiate treatment only upon physician approval. 2017 active 04/14 Hydrocortisone IV intravenously 100.0 mg Re-initiate treatment only upon physician approval. 2017 active 04/14 Methylpredniso lone IV intravenously 125.0 mg Re-initiate treatment only upon physician approval. 2017 active 03/24 diphenhydramin e hydrochloride 0.5 MG/ML Injectable Solution intravenously 50.0 mg Re-initiate treatment only upon physician approval. 2017 active 03/24 Hydrocortisone IV intravenously 100.0 mg Re-initiate treatment only upon physician approval. 2017 active 03/24 Methylpredniso lone IV intravenously 125.0 mg Re-initiate treatment only upon physician approval. 2017 active 03/24 4 ML pembrolizumab 25 MG/ML Injection intravenous 200.0 mg once Dilute with NS or D5W to a final concentration of 1-10 mg/mL. Infuse with low protein binding filter (0.2 - 5 micron). Do not mix with other drugs. Do not shake. 2017 active 03/03 diphenhydramin e hydrochloride 0.5 MG/ML Injectable Solution intravenously 50.0 mg Re-initiate treatment only upon physician approval. 2017 active 03/03 Methylpredniso lone IV intravenously 125.0 mg Re-initiate treatment only upon physician approval. 2017 active 03/03 4 ML pembrolizumab 25 MG/ML Injection intravenous 200.0 mg once Dilute with NS or D5W to a final concentration of 1-10 mg/mL. Infuse with low protein binding filter (0.2 - 5 micron). Do not mix with other drugs. Do not shake. 2017 active 03/03 Hydrocortisone IV intravenously 100.0 mg Re-initiate treatment only upon physician approval. 2017 active 02/24 hydrocortisone 100 MG Injection intravenously 100.0 mg Re-initiate treatment only upon physician approval. 2017 active 02/24 1.7 ML denosumab 70 MG/ML Injection subcutaneously 120.0 mg once Administer in upper arm, upper thigh, or abdomen. 2017 active 02/24 methylpredniso lone 2000 MG Injection intravenously 125.0 mg Re-initiate treatment only upon physician approval. 2017 active 02/24 diphenhydramin e hydrochloride 0.5 MG/ML Injectable Solution intravenously 50.0 mg Re-initiate treatment only upon physician approval. 2017 active 02/10 Hydrocortisone IV intravenously 100.0 mg Re-initiate treatment only upon physician approval. 2017 active 02/10 Methylpredniso lone IV intravenously 125.0 mg Re-initiate treatment only upon physician approval. 2017 active 02/10 4 ML pembrolizumab 25 MG/ML Injection intravenous 200.0 mg once Dilute with NS or D5W to a final concentration of 1-10 mg/mL. Infuse with low protein binding filter (0.2 - 5 micron). Do not mix with other drugs. Do not shake. 2017 active 02/10 diphenhydramin e hydrochloride 0.5 MG/ML Injectable Solution intravenously 50.0 mg Re-initiate treatment only upon physician approval. 2017 active 01/27 methylpredniso lone 2000 MG Injection intravenously 125.0 mg Re-initiate treatment only upon physician approval. 2017 active 01/27 1.7 ML denosumab 70 MG/ML Injection subcutaneously 120.0 mg once Administer in upper arm, upper thigh, or abdomen. 2017 active 01/27 diphenhydramin e hydrochloride 0.5 MG/ML Injectable Solution intravenously 50.0 mg Re-initiate treatment only upon physician approval. 2017 active 01/27 hydrocortisone 100 MG Injection intravenously 100.0 mg Re-initiate treatment only upon physician approval. 2017 active 01/20 Hydrocortisone IV intravenously 100.0 mg Re-initiate treatment only upon physician approval. 2017 active 01/20 4 ML pembrolizumab 25 MG/ML Injection intravenous 200.0 mg once Dilute with NS or D5W to a final concentration of 1-10 mg/mL. Infuse with low protein binding filter (0.2 - 5 micron). Do not mix with other drugs. Do not shake. 2017 active 01/20 Methylpredniso lone IV intravenously 125.0 mg Re-initiate treatment only upon physician approval. 2017 active 01/20 diphenhydramin e hydrochloride 0.5 MG/ML Injectable Solution intravenously 50.0 mg Re-initiate treatment only upon physician approval. 2017 active 12/30 hydrocortisone 100 MG Injection intravenously 100.0 mg Re-initiate treatment only upon physician approval. 2017 active 12/30 Methylpredniso lone IV intravenously 125.0 mg Re-initiate treatment only upon physician approval. 2017 active 12/30 methylpredniso lone 2000 MG Injection intravenously 125.0 mg Re-initiate treatment only upon physician approval. 2017 active 12/30 Hydrocortisone IV intravenously 100.0 mg Re-initiate treatment only upon physician approval. 2017 active 12/30 diphenhydramin e hydrochloride 0.5 MG/ML Injectable Solution intravenously 50.0 mg Re-initiate treatment only upon physician approval. 2017 active 09/09 Methylpredniso lone IV intravenously 125.0 mg Re-initiate treatment only upon physician approval. 2017 active 09/09 diphenhydramin e hydrochloride 0.5 MG/ML Injectable Solution intravenously 50.0 mg Re-initiate treatment only upon physician approval. 2017 active 09/09 Hydrocortisone IV intravenously 100.0 mg Re-initiate treatment only upon physician approval. 2017 active 09/02 hydrocortisone 100 MG Injection intravenously 100.0 mg Re-initiate treatment only upon physician approval. 2017 active 09/02 diphenhydramin e hydrochloride 0.5 MG/ML Injectable Solution intravenously 50.0 mg Re-initiate treatment only upon physician approval. 2017 active 09/02 methylpredniso lone 2000 MG Injection intravenously 125.0 mg Re-initiate treatment only upon physician approval. 2017 active 08/19 diphenhydramin e hydrochloride 0.5 MG/ML Injectable Solution intravenously 50.0 mg Re-initiate treatment only upon physician approval. 2017 active 08/19 Methylpredniso lone IV intravenously 125.0 mg Re-initiate treatment only upon physician approval. 2017 active 08/19 Hydrocortisone IV intravenously 100.0 mg Re-initiate treatment only upon physician approval. 2017 active 08/05 methylpredniso lone 2000 MG Injection intravenously 125.0 mg Re-initiate treatment only upon physician approval. 2017 active 08/05 hydrocortisone 100 MG Injection intravenously 100.0 mg Re-initiate treatment only upon physician approval. 2017 active 08/05 diphenhydramin e hydrochloride 0.5 MG/ML Injectable Solution intravenously 50.0 mg Re-initiate treatment only upon physician approval. 2017 active 07/29 Hydrocortisone IV intravenously 100.0 mg Re-initiate treatment only upon physician approval. 2017 active 07/29 diphenhydramin e hydrochloride 0.5 MG/ML Injectable Solution intravenously 50.0 mg Re-initiate treatment only upon physician approval. 2017 active 07/29 Methylpredniso lone IV intravenously 125.0 mg Re-initiate treatment only upon physician approval. 2017 active 07/08 hydrocortisone 100 MG Injection intravenously 100.0 mg Re-initiate treatment only upon physician approval. 2017 active 07/08 Methylpredniso lone IV intravenously 125.0 mg Re-initiate treatment only upon physician approval. 2017 active 07/08 Hydrocortisone IV intravenously 100.0 mg Re-initiate treatment only upon physician approval. 2017 active 07/08 methylpredniso lone 2000 MG Injection intravenously 125.0 mg Re-initiate treatment only upon physician approval. 2017 active 07/08 diphenhydramin e hydrochloride 0.5 MG/ML Injectable Solution intravenously 50.0 mg Re-initiate treatment only upon physician approval. 2017 active 06/21 Prednisolone Oral Liquid Oral 40.0 mg 2017 active 05/20 diphenhydramin e hydrochloride 0.5 MG/ML Injectable Solution intravenously 50.0 mg Re-initiate treatment only upon physician approval. 2017 active 05/20 Hydrocortisone IV intravenously 100.0 mg Re-initiate treatment only upon physician approval. 2017 active 05/20 methylpredniso lone 2000 MG Injection intravenously 125.0 mg Re-initiate treatment only upon physician approval. 2017 active 05/20 Methylpredniso lone IV intravenously 125.0 mg Re-initiate treatment only upon physician approval. 2017 active 05/20 hydrocortisone 100 MG Injection intravenously 100.0 mg Re-initiate treatment only upon physician approval. 2017 active 04/29 Methylpredniso lone IV intravenously 125.0 mg Re-initiate treatment only upon physician approval. 2016 active 04/29 Hydrocortisone IV intravenously 100.0 mg Re-initiate treatment only upon physician approval. 2016 active 04/29 diphenhydramin e hydrochloride 0.5 MG/ML Injectable Solution intravenously 50.0 mg Re-initiate treatment only upon physician approval. 2016 active 04/08 Hydrocortisone IV intravenously 100.0 mg Re-initiate treatment only upon physician approval. 2016 active 04/08 diphenhydramin e hydrochloride 0.5 MG/ML Injectable Solution intravenously 50.0 mg Re-initiate treatment only upon physician approval. 2016 active 04/08 methylpredniso lone 2000 MG Injection intravenously 125.0 mg Re-initiate treatment only upon physician approval. 2016 active 04/08 Methylpredniso lone IV intravenously 125.0 mg Re-initiate treatment only upon physician approval. 2016 active 04/08 hydrocortisone 100 MG Injection intravenously 100.0 mg Re-initiate treatment only upon physician approval. 2016 active 02/11 Magic Mouthwash (Lidocaine-Celio dtgum-Ocsmlk-C ystatin) orally 2.0 tsp every 4 to 6 hours 2016 active 09/24 Oxycodone-Acet aminophen Oral 10 mg-325 mg Oral 1.0 1 Once every 6 Hours 2016 active 06/04 Ondansetron Oral Oral 8.0 1 Once every 8 Hours 2016 active 06/04 Prochlorperazi ne Oral Oral 10.0 1 Once every 6 Hours 2016 active 04/26 Prednisone Oral 2015 active Problems Diagnosis Status Date of Diagnosis Resolution Date GERD Active Peripheral neuropathy Active Joint pain (finding) Active Secondary malignant neoplasm of bone (disorder) Active Vitamin B12 deficiency Active Non-small cell lung cancer (disorder) Active Osteoarthritis (disorder) Active Tobacco use Active Chest pain Active Oral moar Active Alcohol abuse Active Jaundice Active Vital Signs Date Type Value 12/23/2017 Body Temperature 98.00 12/23/2017 Heart Beat 119.00 12/23/2017 BSA 1.86 12/23/2017 BMI 26.31 12/23/2017 Height 66.00 12/23/2017 Weight 163.00 12/23/2017 Pain Scale 0.00 12/23/2017 Intravascular Systolic 136 12/23/2017 Intravascular Diastolic 90 12/23/2017 Respiratory Rate 18.00 12/30/2017 Body Temperature 98.10 12/30/2017 BMI 26.20 12/30/2017 Height 66.00 12/30/2017 Weight 162.30 12/30/2017 BSA 1.85 12/30/2017 Intravascular Systolic 134 12/30/2017 Intravascular Diastolic 80 12/30/2017 Respiratory Rate 18.00 12/30/2017 Heart Beat 122.00 12/30/2017 Pain Scale 0.00 Notes Section * Nurse Note for: 30-DEC-17 [facility] Nurse Note Print Location: Unknown Date/Time Printed: 12/27/2024 12:50 ([facility]) Patient: LYN JAIME Sex: Male : 1965 Date of Service: 12/30/2017 Allergies : SULFAMETHOXAZOLE-TRIMETHOPRIM Vital Signs : Time: 09:51. Weight: 162.3 lb (73.62 kg). Height: 66 in (167.64 cm). BMI: 26.2 (kg/m2) . BSA: 1.85 (m2) . Temperature: 98.1 F (36.72 C). Pulse: 122 (/min) . Respirations: 18 (/min) . Blood pressure: 134/80 (mm Hg). Pain Scale: 0. Entered by Marisol Contreras MA 12/30/2017 09:52 Patient Assessment : Positive results Assessment : Labs Verified: Yes, Alert, oriented with appropriate behavior. Complains of Fatigue. Negative results Assessment : Gait Changes. Denies Neuropathy , Pain -0-No pain, Anxiety/Depression , Fever, Chills or Night Sweats , Signs of Infection , Skin Changes , Dizziness , Headaches , Nausea , Breathing Changes , Cough , Mouth Sores/Stomatitis/Mucositis , Changes in Appetite , Vomiting , Diarrhea , Constipation , Urinary Changes , Bleeding . Entered By Jayashree Bauer RN on 14:00 IV Access/Lab Draw : IV Access-Peripheral - New Start, Needle Type-Iv Cath, Needle Size-22 Gauge, Needle Length-3/4 inch, Access Site-Left Wrist, Flush-10ml NS, Site Assess List- Blood Return,No Redness,No Swelling,No Tenderness,No Bruising, Site Care Checklist-Aseptic Technique, Lab Drawn-Yes, Tube Color-Lavender,Mint,SST, Access Attempts-1 time(s), Comments-CBC and CMP drawn Entered By Jayashree Bauer RN on 14:01 IV De-Access : Line Flushed-10ml NS, Catheter-Dc'd, Site Care-Site Dressing Applied,IV Infusion Completed,Blood Return Noted During Administration,Therapy Completed Without Adverse Event, Site Assess-Line Intact,NoRedness,No Swelling,No Tenderness,No Bruising, Entered By Jayashree Bauer RN on 14: IV De-Access : Line Flushed-10ml NS, Catheter-Dc'd, Site Care-Site Dressing Applied,IV Infusion Completed,Blood Return Noted During Administration,Therapy Completed Without Adverse Event, Site Assess-Line Intact,NoRedness,No Swelling,No Tenderness,No Bruising, Entered By Jayashree Bauer RN on 14:01 Medication Administration : Incident to: Bill Rodriguez MD Pembrolizumab Maintenance Q21D + Xgeva Immunotherapy Pembrolizumab IV, 200 mg intravenous Piggyback once, Instructions: Dilute with NS or D5W to a finalconcentration of 1-10 mg/mL. Infuse with low protein binding filter (0.2 - 5 micron). Do not mix with other drugs. Do not shake., Allow Substitution GIVEN: 200 mg Pharmacy plan: Dispense/Waste: 200/0 mg Amount in mL: 8 Pharmacy dispense: [facility]: [id number] Dispense/Waste: 200/0 mg Given Dose/Discard: 200/0 mg Start Time: 09:35, Entered By: Jayashree Bauer RN, Stop Time: 10:55, Entered By: Jayashree Bauer RN Admix Fluid: 0.9 % sodium chloride, Admix Fluid Volume: 100mL, Total Volume: 108mL Checked By: Kayli Humphries RN on 12/30/2017 14:06 Incident to: Bill Rodriguez MD Denosumab (Xgeva) D1 Q28D Immunotherapy Denosumab Subcutaneous (Xgeva), 120 mg/1.7 mL (70 mg/mL) solution, 120 mg subcutaneously once, Instructions: Administer in upper arm, upper thigh, or abdomen., Allow Substitution GIVEN: 120 mg Pharmacy plan: Dose Form Description: 120 mg/1.7 mL (70 mg/mL) solution Dispense/Waste: 120/0 mg Amount in mL: 1.7 Pharmacy dispense: [facility]: [id number] Dispense/Waste: 120/0 mg Given Dose/Discard: 120/0 mg Time: 10:35, Entered By: Jayashree Bauer RN Checked By: Kayli Humphries RN on 12/30/2017 14:06 Free Text Note : 5 rights [id number] - PIV started in left wrist. CBC and CMP drawn. 0935 - Keytruda infusing via pump, + blood [id number] - Xgeva given sub cut into right arm. Site clear. Bandaid applied to site.1059 - Keytruda infused. PIV flushed with NS + blood return. PIV dc'd and pressure dsg applied to site. Pt ambulated out of tx center without difficulty with mother. Entered By Jayashree Bauer RN on 14:05
--- OUTSIDE RECORDS SUMMARY | 2024-12-27 12:51 | XMS_ITS ---
Author Name Interface, [id number] lity Address [address] [place] [address] [facility] Address [address] [place], [place] [id number] Allergies and Adverse Reactions Plan Reason for Visit Encounters Diagnostic Results Medications Problems Vital Signs Notes Section
--- OUTSIDE RECORDS SUMMARY | 2024-12-27 12:51 | XMS_ITS | CCD ---
Author Name Interface, [id number] lity Address [address] [place] [address] Organization [facility] Address [address] [place] [id number] Care Team Providers Care Chief Psychologist Name Role Phone Jennifer CHIRINOS, Bill Brar Unavailable Unavailable Allergies and Adverse Reactions Medication/Group Name Reaction Severity Date SULFAMETHOXAZOLE-TRIMETHOPRIM 12/30/2017 Reason for Visit EMAIL SENT/NOTED CB Functional Status Date Name Score 05/20/2017 ECOG performance status - grade 0 0 06/17/2017 ECOG performance status - grade 0 0 06/24/2017 ECOG performance status - grade 0 0 07/01/2017 ECOG performance status - grade 0 0 07/08/2017 ECOG performance status - grade 0 0 07/29/2017 ECOG performance status - grade 0 0 08/05/2017 ECOG performance status - grade 0 0 08/19/2017 ECOG performance status - grade 0 0 10/24/2016 ECOG performance status - grade 1 1 02/04/2017 ECOG performance status - grade 1 1 02/25/2017 ECOG performance status - grade 1 1 04/08/2017 ECOG performance status - grade 0 0 12/30/2017 ECOG performance status - grade 1 1 09/09/2017 ECOG performance status - grade 0 0 09/02/2017 ECOG performance status - grade 0 0 12/23/2017 ECOG performance status - grade 2 2 12/16/2017 ECOG performance status - grade 0 0 Medications Date Name Route Dose Frequency Instructions Start Date End Date Status Levetiracetam Oral (Keppra) orally 250.0 mg 2 times per day active Prednisolone Oral Liquid orally 20.0 every 12 hours for 5 days active Potassium Chloride Oral ER Tab orally 1.0 tablet extended release every day quantity sufficient for 3 days; 1 refills active 2016 Oxycodone-Acetamin ophen Oral 10 mg-325 mg Oral 1.0 1 Once every 6 Hours 2016 stopped 2016 Oxycodone-Acetamin ophen Oral 10 mg-325 mg Oral 1.0 1 Once every 6 Hours 2016 active 2016 Ondansetron Oral Oral 8.0 1 Once every 8 Hours 2016 stopped 2016 Ondansetron Oral Oral 8.0 1 Once every 8 Hours 2016 active 2016 Prochlorperazine Oral Oral 10.0 1 Once every 6 Hours 2016 active 2015 Prednisone Oral 2015 active Problems Diagnosis Status Date of Diagnosis Resolution Date GERD Active Peripheral neuropathy Active Joint pain (finding) Active Secondary malignant neoplasm of bone (disorder) Active Vitamin B12 deficiency Active Non-small cell lung cancer (disorder) Active Osteoarthritis (disorder) Active Tobacco use Active Chest pain Active Oral omar Active Alcohol abuse Active Jaundice Active Social History Date Name Value Sex Male
--- OUTSIDE RECORDS SUMMARY | 2024-12-27 12:51 | XMS_ITS | Encounter Summary ---
Author Organization Healthcare Address [address] [place] [address] Care Team Providers Care Toy Maker Name Role Phone Richard Edgar MD Primary Care Provider [phone] Reason for Referral * Consultation (Routine) - Authorized Specialty Diagnoses / Procedures Referred By Contac t Referred To Contact Endocrinology Diagnoses None to low serum cortisol response with adrenocorticotrophic hormone (ACTH) stimulation test Richard Edgar MD [address] [place] [address] Phone: tel: fax: [facility] [address] [place] [phone] Phone: tel: fax: Referral ID Status Reason Start Date Expiration Date Visits Requested Visits Authorized [id number] Authorized Specialty Services Required 11/03/2023 05/04/2025 1 1 Encounter Details Date Type Department Care Team (Latest Contact Info) Description 11/03/2023 Community [facility] [address] [place] [phone] Richard Edgar MD [address] [place] [id number] None to low serum cortisol response with adrenocorticotrophic hormone (ACTH) stimulation test (Primary Dx) Social History Tobacco Use Types Packs/Day Years Used Date Smoking Tobacco: Every Day Cigarettes 2 49.6 Started: 05/19/1975 Passive Smoke Exposure: Current Smokeless Tobacco: Never Comments:vape Alcohol Use Standard Drinks/Week Comments Not [...] Have you had 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) to 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 or to get [...] Orientation Straight 08/04/2022 11 :45 AM EDT documented as of this encounter Plan of Treatment Scheduled Referrals Name Type Priority Associated Diagnoses Orde r Schedule Ambulatory referral to Endocrinology Outpatient Referral Routine None to low serum cortisol response with adrenocorticotrophic hormone (ACTH) stimulation test Expected: 11/03/2023 (Approximate), Expires: 05/04/2025 documented as of this encounter Visit Diagnoses Diagnosis None to low serum cortisol response with adrenocorticotrophic hormone (ACTH) stimulation test- Primary documented in this encounter Additional Health Concerns Assessment Noted Time A fall risk assessment has been complete d for the patient 10/14/2023 2:39 PM EDT A Body Mass Index follow-up plan has been documented for the patient 10/14/2023 3:19 PM EDT documented as of this encounter Care Teams Toy Maker Relationship Specialty Start Date End Date Richard Edgar MD PCP - General 09/29/20 documented as of this encounter
--- OUTSIDE RECORDS SUMMARY | 2024-12-27 12:51 | XMS_ITS | Clinical Summary ---
Author Organization [facility] SOILA Lanier T Address [address] [place] [address] Phone Care Team Providers Care Poultry Farm Supervisor Name Role Phone Unavailable Primary Care Provider Unavailabl e Allergies Active Allergy Reactions Criticality Noted Date Comments Septra I.V. 08/16/2015 Medications pantoprazole (PROTONIX) 40 mg Oral Tablet, Delayed Release (E.C.) Take 40 mg by mouth. Active potassium chloride (KLOR-CON) 10 mEq Oral Tablet Sustained Release Take by mouth. Activ e dicyclomine (BENTYL) 10 mg Oral Capsule 2 Active levETIRAcetam (KEPPRA) 500 mg Oral Tablet 2 Active ondansetron (ZOFRAN) 8 mg Oral Tablet 06/04/2016 Ondansetron Oral Oral 8.0 1 Once every 8 Hours 06/04/2016 active 7 Active HYDROcodone-acet aminophen (NORCO) 5-325 mg Oral Tablet Take 1 Tablet by mouth. Active VITAMIN B-1, MONONITRATE, 100 mg Oral Tablet 2 Active LORazepam (ATIVAN) 2 mg Oral Tablet TAKE TABLET take one-half to 1 tab po every 6hrs prn for anxiety or tremors 7 Active oxyCODONE (ROXICODONE) 5 mg Oral Tablet 2 Active SENNA-S 8.6-50 mg Oral Tablet 2 Active albuterol (PROVENTIL HFA;VENTOLIN HFA) 90 mcg/actuation Inhl HFA Aerosol Inhaler Inhale 2 Puffs into the lungs every 6 hours as needed. Active CREON 12,000-38,000 -60,000 unit Oral Capsule, Delayed Release(E.C.)Ind ications:Weight loss, unintentional,Al cohol-induced chronic pancreatitis (HCC) TAKE TWO CAPSULES BY MOUTH THREE TIMES A DAY WITH MEALS TAKE ONE CAPSULE BY MOUTH TWICE A DAY WITH SNACKS 180 Capsule 2 3 Active Surgical History Surgery Date Site/Laterality Comments CHOLECYSTECTOMY STOMACH SURGERY Social History Tobacco Use Types Packs/Day Years Used Date Smoking Tobacco: Every Day Smokeless Tobacco: Never Alcohol Use Standard Drinks/Week Comments Not Currently 0 (1 standard drink = 0.6 oz pur e alcohol) quite 2 1/2 months ago Sex and Gender Information Value Date Recorded Sex Assigned at Not on file Legal Sex Male 1:18 PM EDT Gender Identity Not on file Sexual Orientation Not on file Obstetrics History Last Filed Vital Signs Vital Sign Reading Time Taken Comments Blood Pressure 103/65 01/24/2022 12:52 PM EDT Pulse 82 01/24/2022 12:52 PM EDT Temperature 36.4 C (97.6 F) 01/24/2022 12:52 PM EDT Respiratory Rate 18 01/24/2022 12:52 PM EDT Oxygen Saturation - - Inhaled Oxygen Concentration - - Weight 55 kg (121 lb 3.2 oz) 01/24/2022 12:52 PM EDT Height 172.7 cm (5' 8 ) 01/24/2022 12:52 PM EDT Body Mass Index 18.43 01/24/2022 12:52 PM EDT Plan of Treatment Health Maintenance Due Date Last Done Comments Annual Wellness Exam 1968 Hepatitis C Screening 1983 DTaP/TDaP/Td (1 - Tdap) 1984 Hepatitis B Vaccine (1 of 3 - 19+ 3-dose series) 1984 Cologuard 2010 Colon Cancer Screening 2010 Colonoscopy 2010 FIT 2010 Sigmoidoscopy 2010 Virtual Colonography 2010 Zoster (1 of 2) 2015 COVID-19 Vaccine (1 - 2023-2 5 season) 2024 Influenza Vaccine (#1) 2025 02/24/2020 Pneumococcal Vaccine 50+ (3 of 3 - PCV20 or PCV21) 09/14/2026 09/14/2021, 03/06/2016, 03/05/2016 Meningococcal B Vaccine Aged Out No l onger eligible based on patient's age to complete this topic Insurance [facility] [facility] [place] [id number] [place] [facility] [facility] [place] [id number] [place] [place] [id number] [place] [id number]
--- OUTSIDE RECORDS SUMMARY | 2024-12-27 12:51 | XMS_ITS ---
Author Name Interface, [id number] lity Address [address] [place] [address] [facility] Address [address] [place], [place] [id number] Allergies and Adverse Reactions Plan Reason for Visit Encounters Diagnostic Results Medications Problems Vital Signs Notes Section
--- OUTSIDE RECORDS SUMMARY | 2024-12-27 12:51 | XMS_ITS | Clinical Summary ---
Author Organization [facility] Address [address] [facility] [address] [facility] [address] [place] [address] Care Team Providers Care Parcel Wrapper Name Role Phone Richard Edgar MD Primary Care Provider [phone] Social History Tobacco Use Types Packs/Day Years Used Date Smoking Tobacco: Never Assessed Sex and Gender Information Value Date Recorded Sex Assigned at Not on file Legal Sex Male 8:47 PM EDT Gender Identity Not on file Sexual Orientation Not on file Plan of Treatment Health Maintenance Due Date Last Done Comments CT Colonography 1965 Colonoscopy 1965 Colorectal Cancer Screening 1965 FIT-DNA (Cologuard) 1965 FIT 1965 FOBT 1965 HIV Screening 1965 Hepatitis C Screening 1965 Lipid Panel 1965 Sigmoidoscopy 1965 MMR Vaccines (1 of 1 - Standard series) 1966 Hepatitis B Screening 1983 DTaP/Tdap/Td Vaccines (1 - Tdap) 1984 Hepatitis A Vaccines (1 of 2 - Risk 2-dose series) 1984 Hepatitis B Vaccines (1 of 3 - 19+ 3-dose series) 1984 Pneumococcal Vaccine: 50+ Years (1 of 2 - PCV) 1984 Zoster Vaccines (1 of 2) 2015 COVID-19 Vaccine (2023-2 5 season) 2024 Depression Risk Screening 05/19/2024 SDOH Screening 05/19/2024 Influenza Vaccine (#1) 2025 2, 02/24/2020 HIB Vaccines Aged Out No longer eligi ble based on patient's age to complete this topic HPV Vaccines Aged Out No longer eligi ble based on patient's age to complete this topic IPV Vaccines Aged Out No longer eligi ble based on patient's age to complete this topic Meningococcal B Vaccine Aged Out No l onger eligible based on patient's age to complete this topic Meningococcal Vaccine Aged Out No karis jaimee eligible based on patient's age to complete this topic Rotavirus Vaccines Aged Out No longer eligible based on patient's age to complete this topic Insurance [place] MED[place] Care Teams Parcel Wrapper Relationship Specialty [place] [address] [place] [phone] PCP - General Family Medicine 07/20/20
--- OUTSIDE RECORDS SUMMARY | 2024-12-27 12:52 | XMS_ITS ---
Author Name Interface, [id number] lity Address [address] [place] [address] [facility] Address [address] [place], [place] [id number] Allergies and Adverse Reactions Plan Reason for Visit Encounters Diagnostic Results Medications Problems Vital Signs Notes Section
--- OUTSIDE RECORDS SUMMARY | 2024-12-27 12:52 | XMS_ITS ---
Author Organization [facility] Address [address] [place] [address] Care Team Providers Care Community Engagement Manager Name Role Phone Marlyn Quintero MD, [place] Primary Care Provider [facility] Active Problems Problem Noted Date Diagnosed Date [...] Gastroesophageal reflux disease without esophagi tis 04/16/2016 Current Treatment and Therapy Plans No current plan information found. Past Treatment and Therapy Plans Onc Therapy Treatment Plan Name Start Date Discontinue Date Treatment Medications Discontinue Reason Plan Provider OHC HYDRATION & OHC HYDRATION 11/26/2016 09/12/2017 IV hydration builder Therapy Complete Bill Rodriguez MD Oncology Treatment Plan Name Start Date Discontinue Date Treatment Medications Discontinue Reason Plan Provider Cycles Pembrolizumab (Keytruda) Q21D 7 09/12/2017 dexAMETHasone (DECADRON)diphe nhydrAMINE (BENADRYL)LORaz epam (ATIVAN)methylP REDNISolone sodium succ (SOLU-MEDROL)pe mbrolizumab (KEYTRUDA) IVPB Therapy Complete Bill Rodriguez MD 11 of 12 cycles started Oncology Treatment Plan 2 Plan Name Start Date Discontinue Date Treatment Medications Discontinue Reason Plan Provider Cycles Denosumab (Xgeva) every 28 days 06/04/2016 09/12/2017 denosumab (XGEVA)dexAMET Hasone (DECADRON)diph enhydrAMINE (BENADRYL)Brandi zepam (ATIVAN)methyl PREDNISolone sodium succ (SOLU-MEDROL) Therapy Complete Bill Rodriguez MD 3 of 6 cycles started
--- OUTSIDE RECORDS SUMMARY | 2024-12-27 12:52 | XMS_ITS | Clinical Summary ---
Author Organization [facility] Address [address] [place] [address] Care Team Providers Care Supervisor Fishing Name Role Phone Richard Edgar MD Primary Care Provider [phone] Allergies Active Allergy Reactions Criticality Noted Date Comments Cephalexin 04/28/2020 Sulfamethoxazole-Trimethoprim 2015 Medications levETIRAcetam (KEPPRA) 500 mg Tablet Take 500 mg by mouth 2 times daily. Active LORazepam (ATIVAN) 2 mg tablet Take 2 mg by mouth 3 times daily. Active Active Problems Problem Noted Date Diagnosed Date Alcohol-induced acute pancreatitis 04/28/2020 Acute necrotizing pancreatitis 04/28/2020 Social History Tobacco Use Types Packs/Day Years Used Date Smoking Tobacco: Every Day Cigarettes 4 49.6 Started: 05/28/1975 Smokeless Tobacco: Never Tobacco Cessation:Ready to Q uit: No Alcohol Use Standard Drinks/Week Comments Yes 120 (1 standard drink = 0.6 oz p ure alcohol) Sex and Gender Information Value Date Recorded Sex Assigned at Not on file Legal Sex Male 7:24 PM EST Gender Identity Not on file Sexual Orientation Not on file Last Filed Vital Signs Vital Sign Reading Time Taken Comments Blood Pressure 154/82 05/01/2020 11:54 AM EST Pulse 72 05/01/2020 11:54 AM EST Temperature 36.7 C (98.1 F) 05/01/2020 11:54 AM EST Respiratory Rate 17 05/01/2020 11:54 AM EST Oxygen Saturation 98% 05/01/2020 11:54 AM EST Inhaled Oxygen Concentration - - Weight 71.3 kg (157 lb 3.2 oz) 05/01/2020 6:00 A M EST Height 172.7 cm (5' 8 ) 04/27/2020 10:58 PM EST Body Mass Index 23.9 04/27/2020 10:58 PM EST Plan of Treatment Not on file Insurance [facility] Advance Directives For more information, please contact: [phone] Documents on File Type Date Recorded Patient Tow Operator Expl anation Advance Directives and Living Will 05/03/2020 9:46 AM FOR[facility]LY [facility] POWER OF HYDROGEOLOGIST * Full Code (Latest Code Status on File) Date Activated Date Inactivated Comments 04/28/2020 12:20 AM No automated chest compression devices for VAD Patients Care Teams Supervisor Fishing Relationship Specialty [place] [address] [place] [address] PCP - General Family Medicine 04/27/20
--- OUTSIDE RECORDS SUMMARY | 2024-12-27 12:52 | XMS_ITS | Clinical Summary ---
Author Organization [facility] Address [address] [place] [address] Care Team Providers Care Pediatrician Name Role Phone Unknown, Attending Provider Primary Care Provide r Unavailable Source Comments This information has been disclosed to you from confidential records protectedfrom disclosure by state law. You shall make no further disclosure of thisinformation without the specific, written, and informed release of theindividual to whom it pertains, or as otherwise permitted by law. A generalauthorization for the release of medical or other information is not sufficientfor the purposes of therelease of HIV test results or diagnoses. [id number] Allergies Active Allergy Reactions Criticality Noted Date Comments Sulfamethoxazole-Trimethoprim Hives 2022 Social History Tobacco Use Types Packs/Day Years Used Date Smoking Tobacco: Every Day Cigarettes Tobacco Cessation:Ready to Q uit: Not Asked; Counseling Given: Not Answered Alcohol Use Standard Drinks/Week Comments Not Currently 0 (1 standard drink = 0.6 oz pur e alcohol) Sex and Gender Information Value Date Recorded Sex Assigned at Not on file Legal Sex Male 4:13 PM EDT Gender Identity Not on file Sexual Orientation Not on file Last Filed Vital Signs Vital Sign Reading Time Taken Comments Blood Pressure 93/68 01/24/2023 12:21 PM EDT Pulse 75 01/24/2023 12:21 PM EDT Temperature 36.3 C (97.3 F) 01/23/2023 6:23 PM EDT Respiratory Rate 21 01/24/2023 12:21 PM EDT Oxygen Saturation 98% 01/24/2023 12:21 PM EDT Inhaled Oxygen Concentration 98% 01/24/2023 1 2:21 PM EDT Weight 53.1 kg (117 lb) 01/23/2023 6:23 PM EDT Height 172.7 cm (5' 8 ) 01/23/2023 6:23 PM EDT Body Mass Index 17.79 01/23/2023 6:23 PM EDT Plan of Treatment Health Maintenance Due Date Last Done Comments Abnormal Colonoscopy Follow Up 1965 Hepatitis C Screening (MyChart) 1965 Alcohol Misuse Screening 1983 Depression Screening 1983 HIV Screening 1983 Immunization: DTaP/Tdap/Td (1 - Tdap) 1984 Immunization: Hepatitis B (1 of 3 - 19+ 3-dose series) 1984 Cologuard (FIT-DNA) 2010 Colonoscopy 2010 Colorectal Cancer Screening (MyChart) 2010 Stool Testing (gFOBT) 2010 Immunization: Zoster (1 of 2) 2015 Lung Cancer Screening 2015 Immunization: COVID-19 ( season) 2024 Immunization: Influenza (MyC hernández) (#1) 01/17/2025 03/04/2022, 02/24/2020 Immunization: Pneumococcal ( 3 of 3 - PCV20 or PCV21) 09/14/2026 09/14/2021, 03/06/2016, 03/05/2016 [place] [id number] Care Teams Pediatrician Relationship Specialty Start Date End Date Unknown, Attending Provider PCP - General 11/05/22
--- OUTSIDE RECORDS SUMMARY | 2024-12-27 12:52 | XMS_ITS | Encounter Summary ---
Author Organization [facility] Address [address] [place] [address] Care Team Providers Care Information Security Risk Analyst Name Role Phone Richard Edgar MD Primary Care Provider [phone] Reason for Referral * Consultation (Routine) - Closed Specialty Diagnoses / Procedures Referred By Contac t Referred To Contact Gastroenterology Diagnoses Pseudocyst of pancreas Richard Edgar MD Phone: tel: fax: Marcel Juarez MD [address] [facility] [address] [place] [address] Phone: tel: fax: Referral ID Status Reason Start Date Expiration Date V isits Requested Visits Authorized [id number] Closed Specialty Services Required 03/01/2021 08/31/2022 1 1 Encounter Details Date Type Department Care Team (Late st Contact Info) Description 03/01/2021 Community [facility] [address] [place] [address] Richard Edgar MD [address] [place] [address] Pseudocyst of pancreas (Primary Dx) Social History Tobacco Use Types Packs/Day Years Used Date Smoking Tobacco: Every Day Alcohol Use Standard Drinks/Week Comments Yes 0 (1 standard drink = 0.6 oz pure alcohol) Alcoholic Drinks/day: Daily alcohol use Sex and Gender Information Value Date Recorded Sex Assigned at Male 08/04/2022 11:45 AM EDT Legal Sex Male 8:02 PM EDT Gender Identity Male 08/04/2022 11:45 AM EDT Sexual Orientation Straight 08/04/2022 11 :45 AM EDT documented as of this encounter Plan of Treatment Scheduled Referrals Name Type Priority Associated Diagnoses Order Schedule Ambulatory referral to Gastroenterology Outpatient Referral Routine Pseudocyst of pancreas Expected: 03/01/2021 (Approximate), Expires: 06/01/2021 documented as of this encounter Visit Diagnoses Diagnosis Pseudocyst of pancreas- Primary documented in this encounter Care Teams Information Security Risk Analyst Relationship Specialty Start Date End Date Richard Edgar MD PCP - General 09/29/20 documented as of this encounter
--- NOTE | 2024-12-27 12:55 | XR_ITS ---
FINAL REPORT TECHNIQUE: Single view chest CLINICAL HISTORY: chest pain COMPARISON: 08/26/2024 FINDINGS: A single view of the chest was obtained. The heart and mediastinum are within normal limits. The lungs are clear. There is no pneumothorax. IMPRESSION: No acute cardiopulmonary process. Reviewed, Interpreted and Dictated by Rafi Brizuela MD Transcribed by Amina Rodríguez Authenticated and [facility]
--- NOTE | 2024-12-27 12:55 | PC.NURSE ---
DR THOMPSON AT BEDSIDE
[2024-12-27 13:07] LABS: VBG HCO3 21.0 mmol/L (23-30); VBG PCO2 35.2 mmol/L (35-51); VBG PH 7.39 mmol/L (7.31-7.41); VBG PO2 151.9 mmol/L (28-40)
[2024-12-27 13:10] LABS: Hematocrit 34.5 % (42.0-52.0); Hemoglobin 12.6 g/dL (14.1-18.0); Immature Granulocytes % 0.2 %; Lactate Venous 2.8 mmol/L (0.4-2.0); Mean Corpuscular HGB Conc 36.5 g/dL (31.8-35.4); Mean Corpuscular Hemoglobin 32.2 pg (27.0-31.2); Mean Corpuscular Volume 88.2 fl (80-94); Nucleated Red Blood Cells % 0 %; Platelet Count 174 K/mm3 (142-424); Red Blood Count 3.91 M/mm3 (4.60-6.20); Red Cell Distribution Width-SD 45.4 fL; White Blood Count 6.1 K/mm3 (4.8-10.8)
[2024-12-27] MEDS: ONDANSETRON 4MG/2ML VIAL 4 MG IV (13:24)
[2024-12-27 13:26] LABS: Albumin Level 4.3 g/dl (3.5-5.0); Chloride 91 mmol/L (98-107); Potassium 4.0 mmoL/L (3.5-5.1); Sodium 125 mmol/L (136-145)
[2024-12-27] MEDS: LACTATED RINGERS 1000ML 1,000 ML 999 ML IV (13:26)
--- NOTE | 2024-12-27 13:26 | PC.NURSE ---
XR AT BEDSIDE
[2024-12-27 13:28] LABS: Lipase 45 U/L (23-300)
[2024-12-27 13:29] LABS: Alanine Aminotransferase 17 U/L (12-78); Albumin/Globulin Ratio 1.8 (1.1-1.8); Alkaline Phosphatase 100 U/L (38-126); Anion Gap 16.0 mEq/L (5-15); Aspartate Amino Transferase 41 U/L (17-59); Bilirubin,Total 0.8 mg/dl (0.2-1.3); Blood Urea Nitrogen 7 mg/dl (9-20); Carbon Dioxide 22 mmol/L (22.0-30.0); Creatinine Clearance Estimated 119 mL/min (50-200); Creatinine,Serum 0.60 mg/dl (0.66-1.25); Estimated Glomerular Filt Rate 138 ml/min (>60); GFR (African American) 167 ML/MIN (>60); Globulin 2.4 g/dL (1.3-3.2); Total Protein,Serum 6.7 g/dl (6.3-8.2)
[2024-12-27 13:30] LABS: Calcium 8.3 mg/dl (8.4-10.2); Glucose 95 mg/dl (74-100)
[2024-12-27 13:45] LABS: Troponin I < 0.01 ng/ml (0.00-0.034)
[2024-12-27 13:49] LABS: Magnesium 1.8 mg/dl (1.6-2.3)
[2024-12-27] MEDS: THIAMINE 100MG TABLET 100 MG PO (14:30)
[2024-12-27] MEDS: FOLIC ACID 1MG TABLET 1 MG PO (14:30)
--- NOTE | 2024-12-27 15:07 | PC.NURSE ---
faxed med list, labs, and face sheet to [facility]
[2024-12-27 16:47] LABS: Troponin I < 0.01 ng/ml (0.00-0.034)
[2024-12-27 17:11] LABS: Reflex Lactic Add Lactic Reflex
--- NOTE | 2024-12-27 18:31 | PEERSUPPORT ---
Peer Support Note Patient Information Patient Information: DOS: 12/27/2024 ? Pt stated he returned to drinking after completing treatment at [facility] 11/17/2024. ? He is interested in going to treatment for alcohol use disorder. ? Ps facilitated intake assessment with [facility]eto while in ED. Pt wants to return home to gather his things before going to treatment. ? -[facility] Con[facility]- could not approve without pt agreeing to detox from alcohol and Ativan Rx. ? Pt refuses to detox from Ativan. ? Ps and pt discuss returning to [facility], as they are understanding and accepting of his Ativan Rx. ? Pt plans to call [facility] for intake once he is home, to have transportation to pick him up. ? Ps explores pts options of staying with someone where he is not alone or has access to alcohol. ? Pt has nephew who is supportive and knows of his drinking habits and attempts at recovery. ? Plan of action: -Refrain from drinking alcohol? -Contact [facility]- contact saved in phone -Ps to follow up with pt on 12/28/2024 ?
== END 2024-12-27 17:53 | disposition home or self-care (01) ==
PROVIDERS: Emergency Provider Student in an Organized Health Care Education/Training Program; PCP Family Medicine
DX: R07.9 Chest pain, unspecified (principal); F10.129 Alcohol abuse with intoxication, unspecified; E87.1 Hypo-osmolality and hyponatremia; R11.0 Nausea; F17.210 Nicotine dependence, cigarettes, uncomplicated; Y90.6 Blood alcohol level of 120-199 mg/100 ml
CPT/HCPCS: 71045; 80053; 80320; 82803; 83690; 83735; 84484; 85025; 93005; 96361; 96374; 99285; J2405; J7120

== ENCOUNTER 2025-01-16 12:45 | Emergency (ER) | payer MEDICAID, SELFPAY ==
[2025-01-16] VITALS (11 sets, daily range): BP systolic 102–122; BP diastolic 69–80; PULSE 89–104; RESP 15–22; TEMP 36.7–36.9; O2SAT 93–99; BMI 21.2
--- OUTSIDE RECORDS SUMMARY | 2025-01-16 12:52 | XMS_ITS ---
Author Name Interface, [id number] lity Address [address] [id number] Organization [facility] Address [address] [place] [address] Allergies and Adverse Reactions Medication/Group Name Reaction Severity Date SULFAMETHOXAZOLE-TRIMETHOPRIM 12/30/2017 Plan Date Type Value 08/16/2020 APPOINTMENT EMAIL SENT/NOTED CB 01/20/2018 APPOINTMENT MACI+TX 01/20/2018 APPOINTMENT MACI+TX 01/20/2018 APPOINTMENT MACI+TX 12/30/2017 APPOINTMENT TX ONLY 12/30/2017 APPOINTMENT TX ONLY 12/23/2017 APPOINTMENT scan results 12/23/2017 APPOINTMENT scan results 12/16/2017 APPOINTMENT fu 12/16/2017 APPOINTMENT fu 12/16/2017 APPOINTMENT fu 12/16/2017 LABORDER CBC w/ auto diff 12/16/[address] chest w/ IV c ontrast 12/23/2017 LABORDER CMP 12/23/2017 LABORDER CBC w/ auto diff 12/23/2017 LABORDER FISH panel 12/30/2017 LABORDER CMP 12/30/2017 LABORDER CBC w/ auto diff 01/20/2018 LABORDER CMP 01/20/2018 LABORDER CBC w/ auto diff Reason for Visit EMAIL SENT/NOTED CB Encounters Date Name 12/16/2017 Alcohol abuse 12/16/2017 Non-small cell lung cancer (disorder) 12/16/2017 Oral omar 12/16/2017 Secondary malignant neoplasm of bone (disorder) 12/16/2017 Tobacco use Diagnostic Results Date Type Test Units Lower Limit Upper Limit Result Flag Comments Status Ordered By Specimen Source Lab Address 12/16 Lab Repor t See cut out machine operator d 12/23 Lab Repor t See cut out machine operator d 12/30 Lab Repor t See cut out machine operator d 12/30 Lab Repor t See cut out machine operator d 12/31 Lab Repor t See cut out machine operator d 01/07 Lab Repor t See cut out machine operator d Medications Date Name Route Dose Frequency [...] approval. 2016 active 02/11 Magic Mouthwash (Lidocaine-Celio jeuxu-Kppoif-J ystatin) orally 2.0 tsp every 4 to [...] omar Active Alcohol abuse Active Jaundice Active Vital Signs Date Type Value 12/16/2017 Intravascular Systolic 120 12/16/2017 Intravascular Diastolic 86 12/16/2017 Respiratory Rate 14.00 12/16/2017 Heart Beat 128.00 12/16/2017 Body Temperature 97.60 12/16/2017 BSA 1.84 12/16/2017 Weight 160.20 12/16/2017 Height 66.00 12/16/2017 BMI 25.86 12/16/2017 Pain Scale 0.00 12/23/2017 Intravascular Systolic 136 12/23/2017 Intravascular Diastolic 90 12/23/2017 Respiratory Rate 18.00 12/23/2017 Heart Beat 119.00 12/23/2017 Body Temperature 98.00 12/23/2017 Pain Scale 0.00 12/23/2017 BSA 1.86 12/23/2017 BMI 26.31 12/23/2017 Height 66.00 12/23/2017 Weight 163.00 12/30/2017 Body Temperature 98.10 12/30/2017 Heart Beat 122.00 12/30/2017 Respiratory Rate 18.00 12/30/2017 Intravascular Systolic 134 12/30/2017 Intravascular Diastolic 80 12/30/2017 BSA 1.85 12/30/2017 Height 66.00 12/30/2017 Weight 162.30 12/30/2017 Pain Scale 0.00 12/30/2017 BMI 26.20 Notes Section * Nurse Note for: 30-DEC-17 [facility] Nurse Note Print Location: Unknown Date/Time Printed: 01/16/2025 12:52 ([facility]) Patient: LYN JAIME Sex: Male : 1965 [...] mg Amount in mL: 8 Pharmacy dispense: [facility]: [id number] Dispense/Waste: 200/0 mg Given Dose/Discard: 200/0 mg [...] mg Amount in mL: 1.7 Pharmacy dispense: [facility]: [id number] Dispense/Waste: 120/0 mg Given Dose/Discard: 120/0 mg Time: 10:35, Entered By: Jayashree Bauer RN Checked By: Kayli Humphries RN on 12/30/2017 14:06 Free Text Note : 5 rights [id number] - PIV started in left wrist. CBC and CMP drawn. 0935 - Keytruda infusing via pump, + blood [id number] - Xgeva given sub cut into right arm. Site clear. Bandaid applied to site.1059 - Keytruda infused. PIV flushed with NS + blood return. PIV dc'd and pressure dsg applied to site. Pt ambulated out of tx center without difficulty with mother. Entered By Jayashree Buaer RN on 14:05
--- OUTSIDE RECORDS SUMMARY | 2025-01-16 12:52 | XMS_ITS | Clinical Summary ---
Author Organization [facility] SOILA Lanier T Address [address] [address] [facility] [address] [address] Phone Care Team Providers Care Wildlife Forensic Geneticist Name Role Phone Unavailable Primary Care Provider [...] to complete this topic Insurance [employer] [place] [id number] [place] [employer] [place] [address] [place] [place] [address] [place] [id number]
--- OUTSIDE RECORDS SUMMARY | 2025-01-16 12:52 | XMS_ITS ---
Author Name Interface, [id number] lity Address [address] [id number] Organization [facility] Address [address] [place] [address] Allergies and Adverse Reactions Medication/Group Name Reaction [...] Lab Address 12/23 Lab Repor t See library services dean d 12/30 Lab Repor t See library services dean d 12/30 Lab Repor t See library services dean d 12/31 Lab Repor t See library services dean d 01/07 Lab Repor t See library services dean d Medications Date Name Route Dose Frequency [...] approval. 2016 active 02/11 Magic Mouthwash (Lidocaine-Celio wqhyq-Ddbmzl-J ystatin) orally 2.0 tsp every 4 to [...] Print Location: Unknown Date/Time Printed: 01/16/2025 12:52 ([facility]) Patient: LYN JAIME Sex: Male : 1965 [...] mg Amount in mL: 8 Pharmacy dispense: [facility]: [id number] Dispense/Waste: 200/0 mg Given Dose/Discard: 200/0 mg [...] mg Amount in mL: 1.7 Pharmacy dispense: [facility]: [id number] Dispense/Waste: 120/0 mg Given Dose/Discard: 120/0 mg Time: 10:35, Entered By: Jayashree Bauer RN Checked By: Kayli Humphries RN on 12/30/2017 14:06 Free Text Note : 5 rights [id number] - PIV started in left wrist. CBC and CMP drawn. 0935 - Keytruda infusing via pump, + blood [id number] - Xgeva given sub cut into right arm. Site clear. Bandaid applied to site.1059 - Keytruda infused. PIV flushed with NS + blood return. PIV dc'd and pressure dsg applied to site. Pt ambulated out of tx center without difficulty with mother. Entered By Jayashree Bauer RN on 14:05
--- OUTSIDE RECORDS SUMMARY | 2025-01-16 12:52 | XMS_ITS ---
Author Name Interface, [id number] lity Address [address] [id number] Organization [facility] Address [address] [place] [address] Allergies and Adverse Reactions Medication/Group Name Reaction [...] Lab Address 12/16 Lab Repor t See stop attacher d 12/23 Lab Repor t See stop attacher d 12/30 Lab Repor t See stop attacher d 12/30 Lab Repor t See stop attacher d 12/31 Lab Repor t See stop attacher d 01/07 Lab Repor t See stop attacher d Medications Date Name Route Dose Frequency [...] approval. 2016 active 02/11 Magic Mouthwash (Lidocaine-Celio yrppj-Qikhfp-Y ystatin) orally 2.0 tsp every 4 to [...] Print Location: Unknown Date/Time Printed: 01/16/2025 12:52 ([facility]) Patient: LYN JAIME Sex: Male : [...] mg Amount in mL: 8 Pharmacy dispense: [facility]: [id number] Dispense/Waste: 200/0 mg Given Dose/Discard: 200/0 mg [...] mg Amount in mL: 1.7 Pharmacy dispense: [facility]: [id number] Dispense/Waste: 120/0 mg Given Dose/Discard: 120/0 mg Time: 10:35, Entered By: Jayashree Bauer RN Checked By: Kayli Humphries RN on 12/30/2017 14:06 Free Text Note : 5 rights [id number] - PIV started in left wrist. CBC and CMP drawn. 0935 - Keytruda infusing via pump, + blood [id number] - Xgeva given sub cut into right arm. Site clear. Bandaid applied to site.1059 - Keytruda infused. PIV flushed with NS + blood return. PIV dc'd and pressure dsg applied to site. Pt ambulated out of tx center without difficulty with mother. Entered By Jayashree Bauer RN on 14:05
--- OUTSIDE RECORDS SUMMARY | 2025-01-16 12:52 | XMS_ITS ---
Author Name Interface, [id number] lity Address [address] [id number] Organization [facility] Address [address] [place] [address] Allergies and Adverse Reactions Medication/Group Name Reaction Severity Date SULFAMETHOXAZOLE-TRIMETHOPRIM 12/30/2017 Plan Date Type Value 08/16/2020 APPOINTMENT EMAIL SENT/NOTED CB 01/20/2018 APPOINTMENT MACI+TX 01/20/2018 APPOINTMENT MACI+TX 01/20/2018 APPOINTMENT MACI+TX 12/30/2017 APPOINTMENT TX ONLY 12/30/2017 APPOINTMENT TX ONLY 12/23/2017 APPOINTMENT scan results 12/23/2017 APPOINTMENT scan results 12/16/2017 APPOINTMENT fu 12/16/2017 APPOINTMENT fu 12/16/2017 APPOINTMENT fu 10/14/2017 APPOINTMENT FU + TX + LABS 10/14/2017 APPOINTMENT FU + TX + LABS 10/14/2017 APPOINTMENT FU + TX + LABS 09/30/2017 APPOINTMENT FU + TX + LABS 09/30/2017 APPOINTMENT FU + TX + LABS 09/30/2017 APPOINTMENT FU + TX + LABS 09/09/2017 APPOINTMENT md + tx 09/09/2017 APPOINTMENT md + tx 09/09/2017 APPOINTMENT md + tx 09/02/2017 APPOINTMENT inj only 09/02/2017 APPOINTMENT lab 08/19/2017 APPOINTMENT 3WK MD+TX 08/19/2017 APPOINTMENT 3WK MD+TX 08/19/2017 APPOINTMENT 3WK MD+TX 08/19/2017 APPOINTMENT 3WK MD+TX 08/19/2017 APPOINTMENT 3WK MD+TX 08/19/2017 APPOINTMENT 3WK MD+TX 08/05/2017 APPOINTMENT inj 08/05/2017 APPOINTMENT lab 07/29/2017 APPOINTMENT 3 WK MACI + TX 07/29/2017 APPOINTMENT 3 WK MACI + TX 07/29/2017 APPOINTMENT 3 WK MACI + TX 07/29/2017 LABORDER CBC w/ auto diff 07/29/2017 LABORDER CMP 08/05/2017 LABORDER CBC w/ auto diff 08/19/2017 LABORDER CBC w/ auto diff 08/19/2017 LABORDER CMP 09/02/2017 LABORDER CBC w/ auto diff 09/02/[address] chest/abdomen /pelvis w/ contrast 09/09/2017 LABORDER CMP 09/09/2017 LABORDER CBC w/ auto diff 12/05/[address] chest/abdomen /pelvis w/ contrast 12/16/2017 LABORDER CBC w/ auto diff 12/16/[address] chest w/ IV c ontrast 12/23/2017 LABORDER CMP 12/23/2017 LABORDER CBC w/ auto diff 12/23/2017 LABORDER FISH panel 12/30/2017 LABORDER CMP 12/30/2017 LABORDER CBC w/ auto diff 01/20/2018 LABORDER CMP 01/20/2018 LABORDER CBC w/ auto diff Reason for Visit EMAIL SENT/NOTED CB Encounters Date Name 07/29/2017 Alcohol abuse 07/29/2017 Non-small cell lung cancer (disorder) 07/29/2017 Oral omar 07/29/2017 Secondary malignant neoplasm of bone (disorder) Diagnostic Results Date Type Test Units Lower Limit Upper Limit Result Flag Comments Status Ordered By Specimen Source Lab Address 07/29 Lab Repor t See chronic specialist d 08/05 Lab Repor t See chronic specialist d 08/19 Lab Repor t See chronic specialist d 09/02 Lab Repor t See chronic specialist d 09/03 CT CHEST ABDOM EN PELVI S W CONTR AST EXAMINA TION:CT OF THE CHEST, ABDOMEN , AND PELVIS WITH CONTRAS T 09/04/19 18 3:17 pmTECHN IQUE:CT of the chest, abdomen and pelvis was perform ed with the adminis tration ofintra venous contras t. Multipl justus reforma tted images are provide d for review. Dose modulat ion, iterati ve reconst ruction , and/or weight based adjustm ent ofthe mA/kV was utilize d to reduce the radiati on dose to as low as reasona blyachi evable. 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 Noperic ardial effusio n. No adenopa thy is appreci ated. Unremar kable appeara nceof the thyroid lobes.L ungs/pl eura: Partial ly spicula avinash nodule posteri or right upper lobe axialim age 51 measure s 10 x 16 mm, at the same level on CT in 2016 measuri ng 12 x19 mm. No other pulmona ry nodule is demonst rated.S oft Tissues /Bones: No acute osseous abnorma lity is identif ied at bonewin ernesto. Degener ative changes are noted lower cervica l spine. No suspici ouslyti c or blastic lesion. Abdomen /Pelvis :Organs : Hypoatt enuatio n through out the liver reflect s hepatic steatos is. Nodiscr ete hepatic lesion or intrahe patic bile duct dilatat ion is seen. Thegall bladder , kidneys , spleen, adrenal glands and pancrea s appearu nremark able. Small simple cysts is again seen at the posteri or midpole leftkid lo.GI/ Bowel: Multifo dank diverti cula involve the descend ing and sigmoid colonwi thout evidenc e of acute inflamm atory change. Unremar kable appeara nce ofthe partial ly opacifi ed bowel. No inflamm atory changes evident . Noobstr uction is seen. The normal appendi x is seen right lower quadran t.Pelvi s: Prostat e gland and seminal vesicle s appear unremar kable. Urinary bladder is partial ly filled, unremar kable appeara nce. No adenopa thy or freeflu id.Abigail toneum/ Retrope ritoneu m: Calcifi c atheros cleroti c disease aorta. Noaneur ysm. Unremar kable appeara nce of the IVC. No adenopa thy or fluid.B ones/So ft Tissues : Indeter minate lytic lesion left iliac bone is stablem easurin g 11 x 14 mm axial image 108. No other acute lesion is evident .IMPRES JAMES:1. The right upper lobe pulmona ry nodule is unchang ed compare d with CT04/02. This may be in a benign process . PET-CT correla tion may beconsi dered for additio nal charact erizati on.2. Lucent lesion left iliac bone is stable compari ng with recent previou s CT.This could be sequela from osteoar thritic change or could reflect a maligna ntbone lesion or benign bone lesion. Bone scan correla tion may be useful. Attenti on to this area on PET-CT imaging may be useful. 3. Mild hepatic steatos is.4. Mild calcifi c atheros clerosi s.Inter preted by:Dao Snider by:Arik marcelo, 09/03/ inal resultC onfiden tial Patient Informa tion [place] nied are [facility] l results that are being deliver ed by [facility].I f you receive a clinica l result for a patient that is not yours please fax to [facility] at . FINAL Maddison Harrison 09/09 Lab Repor t See chronic specialist d 12/16 Lab Repor t See chronic specialist d 12/23 Lab Repor t See chronic specialist d 12/30 Lab Repor t See chronic specialist d 12/30 Lab Repor t See chronic specialist d 12/31 Lab Repor t See chronic specialist d 01/07 Lab Repor t See chronic specialist d Medications Date Name Route Dose Frequency [...] approval. 2016 active 02/11 Magic Mouthwash (Lidocaine-Celio onnjn-Bkgzzr-X ystatin) orally 2.0 tsp every 4 to [...] Jaundice Active Vital Signs Date Type Value 07/29/2017 Body Temperature 98.70 07/29/2017 Heart Beat 108.00 07/29/2017 Respiratory Rate 16.00 07/29/2017 Intravascular Systolic 122 07/29/2017 Intravascular Diastolic 72 07/29/2017 BSA 1.92 07/29/2017 Height 66.00 07/29/2017 Weight 174.30 07/29/2017 Pain Scale 0.00 07/29/2017 BMI 28.13 08/05/2017 Body Temperature 98.70 08/05/2017 Heart Beat 104.00 08/05/2017 Respiratory Rate 16.00 08/05/2017 Intravascular Systolic 126 08/05/2017 Intravascular Diastolic 76 08/05/2017 Pain Scale 0.00 08/05/2017 Weight 173.20 08/05/2017 Height 66.00 08/05/2017 BMI 27.95 08/05/2017 BSA 1.91 08/19/2017 Intravascular Systolic 124 08/19/2017 Intravascular Diastolic 70 08/19/2017 Respiratory Rate 16.00 08/19/2017 Heart Beat 108.00 08/19/2017 Body Temperature 98.00 08/19/2017 Pain Scale 0.00 08/19/2017 BSA 1.94 08/19/2017 BMI 28.71 08/19/2017 Height 66.00 08/19/2017 Weight 177.90 09/02/2017 Body Temperature 98.00 09/02/2017 Heart Beat 120.00 09/02/2017 Respiratory Rate 14.00 09/02/2017 Intravascular Systolic 118 09/02/2017 Intravascular Diastolic 60 09/02/2017 BSA 1.94 09/02/2017 Weight 177.80 09/02/2017 Height 66.00 09/02/2017 BMI 28.70 09/02/2017 Pain Scale 0.00 09/09/2017 Intravascular Systolic 118 09/09/2017 Intravascular Diastolic 74 09/09/2017 Respiratory Rate 16.00 09/09/2017 Heart Beat 102.00 09/09/2017 Body Temperature 98.00 09/09/2017 Pain Scale 0.00 09/09/2017 Weight 178.60 09/09/2017 Height 66.00 09/09/2017 BMI 28.83 09/09/2017 BSA 1.94 12/16/2017 Body Temperature 97.60 12/16/2017 Heart Beat 128.00 12/16/2017 Respiratory Rate 14.00 12/16/2017 Intravascular Systolic 120 12/16/2017 Intravascular Diastolic 86 12/16/2017 Pain Scale 0.00 12/16/2017 Weight 160.20 12/16/2017 Height 66.00 12/16/2017 BMI 25.86 12/16/2017 BSA 1.84 12/23/2017 Body Temperature 98.00 12/23/2017 Heart Beat [...] Print Location: Unknown Date/Time Printed: 01/16/2025 12:52 ([facility]) Patient: LYN JAIME Sex: Male : [...] mg Amount in mL: 8 Pharmacy dispense: [facility]: [phone] Dispense/Waste: 200/0 mg Given Dose/Discard: 200/0 mg [...] mg Amount in mL: 1.7 Pharmacy dispense: [place]: [id number] Dispense/Waste: 120/0 mg Given Dose/Discard: 120/0 mg Time: 10:35, Entered By: Jayashree Bauer RN Checked By: Kayli Humphries RN on 12/30/2017 14:06 Free Text Note : 5 rights [id number] - PIV started in left wrist. CBC and CMP drawn. 0935 - Keytruda infusing via pump, + blood [id number] - Xgeva given sub cut into right arm. Site clear. Bandaid applied to site.1059 - Keytruda infused. PIV flushed with NS + blood return. PIV dc'd and pressure dsg applied to site. Pt ambulated out of tx center without difficulty with mother. Entered By Jayashree Bauer RN on 14:05 * Nurse Note for: 09-SEP-17 [facility] Nurse Note Print Location: Unknown Date/Time Printed: 01/16/2025 12:52 ([facility]) Patient: LYN JAIME Sex: Male : 1965 Date of Service: 09/09/2017 Allergies : SULFAMETHOXAZOLE-TRIMETHOPRIM Vital Signs : Time: 09:55. Weight: 178.6 lb (81.01 kg). Height: 66 in (167.64 cm). BMI: 28.83 (kg/m2) . BSA: 1.94(m2) . Temperature: 98 F (36.67 C). Pulse: 102 (/min) . Respirations: 16 (/min) . Blood pressure: 118/74 (mm Hg). Pain Scale: 0. Entered by Marisol Contreras MA 09/09/2017 09:57 Patient Assessment : Positive results Assessment : [...] Urinary Changes , Bleeding . Entered By Kayli Humphries RN on 15:48 IV Access/Lab Draw : IV Access-Peripheral - New Start, Needle Type-Iv Cath, Needle Size-22 Gauge, Access Site-Left Arm, Flush-10ml NS, Site Assess List-Blood Return,No Redness,No Swelling,No Tenderness,No Bruising, Site Care Checklist-Aseptic Technique, Dressing Change-Secure View Port Dressing, Lab Drawn-Yes, Tube Color-Mint,SST, Entered By Kayli Humphries RN on 15:48 IV De-Access : IV Access Method-Peripheral - New Start, IV Access Type-Iv Cath, Line Flushed- 10ml NS, Catheter-Dc'd, Site Care-Bandage Applied,IV Infusion Completed,Blood Return Noted During Administration,Therapy Completed Without Adverse Event, Site Assess-Line Intact,No Redness,No Swelling,No Tenderness,No Bruising, Entered By Kayli Humphries RN on 15:48 Medication Administration : Incident to: Bill Rodriguez [...] mg Amount in mL: 8 Pharmacy dispense: [facility]: [phone] Dispense/Waste: 200/0 mg Given Dose/Discard: 200/0 mg Start Time: 11:50, Entered By: Kayli Humphries RN, Stop Time: 12:20, Entered By: Kayli Humphries RN Admix Fluid: 0.9 % sodium chloride, Admix Fluid Volume: 100mL, Total Volume: 108mL Checked By: Marily Andrade RN on 09/09/2017 15:42 * Nurse Note for: 02-SEP-17 [facility] Nurse Note Print Location: Unknown Date/Time Printed: 01/16/2025 12:52 ([facility]) Patient: LYN JAIME Sex: Male : 1965 Date of Service: 09/02/2017 Allergies : SULFAMETHOXAZOLE-TRIMETHOPRIM Vital Signs : Time: 12:30. Weight: 177.8 lb (80.65 kg). Height: 66 in (167.64 cm). BMI: 28.7 (kg/m2) . BSA: 1.94 (m2) . Temperature: 98 F (36.67 C). Pulse: 120 (/min) . Respirations: 14 (/min) . Blood pressure: 118/60 (mm Hg). Pain Scale: 0. Entered by Norah Manuel MA 09/02/2017 12:32 Patient Assessment : Positive results Assessment : [...] . Entered By Jayashree Bauer RN on 12:44 Medication Administration : Incident to: Bill Rodriguez MD Denosumab (Xgeva) D1 Q28D Immunotherapy Denosumab Subcutaneous (Xgeva), 120 mg/1.7 mL (70 mg/mL) solution, 120 mg subcutaneously once, Instructions: Administer in upper arm, upper thigh, or abdomen., Allow Substitution GIVEN: 120 mg Pharmacy plan: Dose Form Description: 120 mg/1.7 mL (70 mg/mL) solution Dispense/Waste: 120/0 mg Amount in mL: 1.7 Pharmacy dispense: [facility]: [phone] Dispense/Waste: 120/0 mg Given Dose/Discard: 120/0 mg Time: 13:00 Checked By: Kayli Humphries RN on 09/02/2017 13:08 Free Text Note : 5 rights verified Pt received Xgeva injection in upper left arm. Site clear. Bandaid applied. Pt ambulated out of tx center without difficulty. Entered By Jayashree Bauer RN on 13:09 * Nurse Note for: 19-AUG-17 [facility] Nurse Note Print Location: Unknown Date/Time Printed: 01/16/2025 12:52 ([facility]) Patient: LYN JAIME Sex: Male : 1965 Date of Service: 08/19/2017 Allergies : SULFAMETHOXAZOLE-TRIMETHOPRIM Vital Signs : Time: 09:13. Weight: 177.9 lb (80.69 kg). Height: 66 in (167.64 cm). BMI: 28.71 (kg/m2) . BSA: 1.94(m2) . Temperature: 98 F (36.67 C). Pulse: 108 (/min) . Respirations: 16 (/min) . Blood pressure: 124/70 (mm Hg). Pain Scale: 0. Entered by Norah Manuel MA 08/19/2017 09:15 Patient Assessment : Positive results Assessment : Labs Verified: Yes. Negative results Assessment : Denies Neuropathy , Pain -0-No pain, Fatigue , Anxiety/Depression , Fever, Chills or Night Sweats ,Signs of Infection , Skin Changes , Dizziness , Headaches , Nausea , Breathing Changes , Cough , Mouth Sores/Stomatitis/Mucositis , Changes in Appetite , Vomiting , Diarrhea , Constipation , Urinary Changes , Bleeding . Entered By Kayli Humphries RN on 12:07 IV Access/Lab Draw : IV Access-Peripheral - New Start, Needle Type-Iv Cath, Needle Size-22 Gauge, Access Site-Left Arm, Flush-10ml NS, Site Assess List-Blood Return,No Redness,No Swelling,No Tenderness,No Bruising, Site Care Checklist-Aseptic Technique, Dressing Change-Secure View Port Dressing, Lab Drawn-Yes, Tube Color-Mint,SST, Entered By Kayli Humphries RN on 10:30 IV De-Access : IV Access Method-Peripheral - New Start, IV Access Type-Iv Cath, Line Flushed- 10ml NS, Catheter-Dc'd, Site Care-Bandage Applied,IV Infusion Completed,Blood Return Noted During Administration,Therapy Completed Without Adverse Event, Site Assess-Line Intact,No Redness,No Swelling,No Tenderness,No Bruising, Entered By Kayli Humphries RN on 12:07 Medication Administration : Incident to: Bill Rodriguez [...] mg Amount in mL: 8 Pharmacy dispense: [facility]: [phone] Dispense/Waste: 200/0 mg Given Dose/Discard: 200/0 mg Start Time: 10:57, Entered By: Kayli Humphries RN, Stop Time: 11:21, Entered By: Kayli Humphries RN Admix Fluid: 0.9 % sodium chloride, Admix Fluid Volume: 100mL, Total Volume: 108mL Checked By: Jayashree Baeur RN on 08/19/2017 12:04 * Nurse Note for: 05-AUG-17 [facility] Nurse Note Print Location: Unknown Date/Time Printed: 01/16/2025 12:52 ([facility]) Patient: LYN JAIME Sex: Male : 1965 Date of Service: 08/05/2017 Allergies : SULFAMETHOXAZOLE-TRIMETHOPRIM Vital Signs : Time: 13:02. Weight: 173.2 lb (78.56 kg). Height: 66 in (167.64 cm). BMI: 27.95 (kg/m2) . BSA: 1.91(m2) . Temperature: 98.7 F (37.06 C). Pulse: 104 (/min) . Respirations: 16 (/min) . Blood pressure:126/76 (mm Hg). Pain Scale: 0. Entered by Marisol Contreras MA 08/05/2017 13:03 Patient Assessment : Negative results Assessment : Labs Verified: No. Denies Neuropathy , Pain -0-No pain, Fatigue , Anxiety/Depression , Fever, Chills or Night Sweats ,Signs of Infection , Skin Changes , Dizziness , Headaches , Nausea , Breathing Changes , Cough , Mouth Sores/Stomatitis/Mucositis , Changes in Appetite , Vomiting , Diarrhea , Constipation , Urinary Changes , Bleeding . Entered By Kayli Humphries RN on 16:40 Medication Administration : Incident to: Bill Rodriguez MD Denosumab (Xgeva) D1 Q28D Immunotherapy Denosumab Subcutaneous (Xgeva), 120 mg/1.7 mL (70 mg/mL) solution, 120 mg subcutaneously once, Instructions: Administer in upper arm, upper thigh, or abdomen., Allow Substitution GIVEN: 120 mg Pharmacy plan: Dose Form Description: 120 mg/1.7 mL (70 mg/mL) solution Dispense/Waste: 120/0 mg Amount in mL: 1.7 Pharmacy dispense: [facility]: [id number] Dispense/Waste: 120/0 mg Given Dose/Discard: 120/0 mg Time: 13:45 Checked By: Jayashree Bauer RN on 08/05/2017 16:40 * Nurse Note for: 29-JUL-17 [facility] Nurse Note Print Location: Unknown Date/Time Printed: 01/16/2025 12:52 ([facility]) Patient: LYN JAIME Sex: Male : 1965 Date of Service: 07/29/2017 Allergies : SULFAMETHOXAZOLE-TRIMETHOPRIM Vital Signs : Time: 11:24. Weight: 174.3 lb (79.06 kg). Height: 66 in (167.64 cm). BMI: 28.13 (kg/m2) . BSA: 1.92(m2) . Temperature: 98.7 F (37.06 C). Pulse: 108 (/min) . Respirations: 16 (/min) . Blood pressure:122/72 (mm Hg). Pain Scale: 0. Entered by Marisol Contreras MA 07/29/2017 11:25 Patient Assessment : Positive results Assessment : Labs Verified: Yes. Negative results Assessment : Denies Neuropathy , Pain -0-No pain, Fatigue , Anxiety/Depression , Fever, Chills or Night Sweats ,Signs of Infection , Skin Changes , Dizziness , Headaches , Nausea , Breathing Changes , Cough , Mouth Sores/Stomatitis/Mucositis , Changes in Appetite , Vomiting , Diarrhea , Constipation , Urinary Changes , Bleeding . Entered By Jayashree Bauer RN on 13:13 IV Access/Lab Draw : IV Access-Peripheral - New Start, Needle Type-Iv Cath, Needle Size-22 Gauge, Needle Length-3/4 inch, Access Site-Left Arm, Flush-10ml NS, Site Assess List- Blood Return,No Redness,No Swelling,No Tenderness,No Bruising, Site Care Checklist-Aseptic Technique, Lab Drawn-Yes, Tube Color-Mint,SST, Entered By Jayashree Bauer RN on 16:32 Medication Administration : Incident to: Bill Rodriguez MD Pembrolizumab Maintenance Q21D + Xgeva Immunotherapy Pembrolizumab IV, 200 mg intravenous Piggyback once, Instructions: Dilute with NS or D5W to a finalconcentration of 1-10 mg/mL. Infuse with low protein binding filter (0.2 - 5 micron). Do not mix with other drugs. Do not shake., Allow Substitution GIVEN: 200 mg Pharmacy plan: Dose Form Description: 25 mg/mL solution Dispense/Waste: 200/0 mg Amount in mL: 8 Pharmacy dispense: [facility]: [phone] Dispense/Waste: 200/0 mg Given Dose/Discard: 200/0 mg Start Time: 13:30, Entered By: Jayashree Bauer RN, Stop Time: 14:00, Entered By: Jayashree Bauer RN Admix Fluid: 0.9 % sodium chloride, Admix Fluid Volume: 100mL, Total Volume: 108mL Checked By: Kayli Humphries RN on 07/29/2017 16:36 Free Text Note : 5 rights verified PIV started in left arm + blood return. Pt received infusion of keytruda without difficulty. + blood return before, every 30 mins and after. PIV dc'd and pressure dsg applied to site. Pt ambulated out of tx center with mother without difficulty Entered By Jayashree Bauer RN on 16:34
--- OUTSIDE RECORDS SUMMARY | 2025-01-16 12:52 | XMS_ITS | CCD ---
Author Name Interface, [id number] lity Address [address] [place] [address] Organization [facility] Address [address] [place] [id number] Care Team Providers Care Shuttle Threader Name Role Phone Jennifer CHIRINOS, Bill Brar Unavailable Unavailable Allergies and Adverse Reactions Medication/Group Name Reaction Severity Date SULFAMETHOXAZOLE-TRIMETHOPRIM 12/30/2017 Reason for Visit EMAIL SENT/NOTED CB Functional Status Date Name Score 05/20/2017 ECOG performance status - grade 0 0 06/17/2017 ECOG performance status - grade 0 0 07/29/2017 ECOG performance status - grade 0 0 02/04/2017 ECOG performance status - grade 1 1 06/24/2017 ECOG performance status - grade 0 0 07/01/2017 ECOG performance status - grade 0 0 07/08/2017 ECOG performance status - grade 0 0 08/05/2017 ECOG performance status - grade 0 0 08/19/2017 ECOG performance status - grade 0 0 10/24/2016 ECOG performance status - grade 1 1 09/02/2017 ECOG performance status - grade 0 0 12/16/2017 ECOG performance status - grade 0 0 02/25/2017 ECOG performance status - grade 1 1 04/08/2017 ECOG performance status - grade 0 0 12/30/2017 ECOG performance status - grade 1 1 09/09/2017 ECOG performance status - grade 0 0 12/23/2017 ECOG performance status - grade 2 2 Medications Date Name Route Dose Frequency Instructions [...]
--- OUTSIDE RECORDS SUMMARY | 2025-01-16 12:52 | XMS_ITS | Clinical Summary ---
Author Organization [facility] Address [address] [place] [address] Care Team Providers Care Warp Hanger Name Role Phone Richard Edgar MD Primary Care Provider [phone] Allergies Active Allergy Reactions Criticality Noted Date [...] 2 (two) times a day. Active pancrelipase, Cvy-Amdo-Yhcb, (Creon) 90976-[address]996 units capsule See administration instructions. Take two [...] times a day. 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) to 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 or to get [...] Last Done Comments [facility]-Infant/Child/Adol SDOH Screenings 1965 KLR-AUROR-23 Vaccine (#1) 1970 [facility]- SDOH Screenings 1983 [...] this topic Medical Devices Implanted Type Area Director Web Device Identifier Shelf Expiration Date Model / Serial / Lot Stephen 18 - [id number] Implanted:Qty: 1 on 09/17/2021 at [facility] [employer] [id number] 05/22/2024 105-71 00-06 0 / / [id number] Description:Implanted by Dr Juan Ramon Ta Vip Vascular Closure Device 6 Fr - [id number] Implanted:Qty: 1 on 09/17/2021 at [facility] [id number] 06/18/2022 [id number] / / [id number] Description:Deployed by Dr Nanci Ta Procedures Procedure [...] Antibody Negative Negative 10/07/2023 1:37 PM EDT [facility] Blood Venous blood specimen / Unknown Venipuncture / Unknown 10/07/2023 12:32 PM EDT 10/07/2023 12:47 PM EDT us Melchor Estrada MD LAB BLOOD ORDERABLES Final Resu lt [facility] [address] [place] [address] * HIV 1 & 2 Antibody/Antigen Screen (06/13/2022 5:58 PM EST) HIV 1 & 2 Antibody/Anti gen Screen Nonreactive Nonreactive 06/13/2022 7:11 PM EST [facility] Blood Venous blood specimen / Unknown Venipuncture / Unknown 06/13/2022 5:58 PM EST 06/13/2022 6:09 PM EST Norah Mathew DO LAB BLOOD ORDERABLES Final Re sult Performing Organization Address City/[facility]/ZIP Co de Phone Number [facility] [address] [place] [address] * Hemoglobin A1c (03/06/2021 2:26 PM EDT) [...] Adults <6.0% Children and Adolescents <7.5% Source: [place] [employer]. Standards of medical care in diabetes,2017. Diabetes Care.2017:40 (suppl 1):S1-S135. HbA1c assay performed by an ion-exchange chromatography method that is certified traceable to the DCCT. Teresa Banerjee MD LAB BLOOD ORDERABLES Final Resul t Performing Organization Address City/[facility]/ZIP Co de Phone Number [facility] [address] [place] [address] from Last 3 Months or Most Recently Relevant to Health Maintenance Insurance Gracie NGUYEN FUENTES [id number] [facility] MEDICAID Advance Directives * Full Code (Latest [...] Patient has decision-making capacity? Yes Care Teams Warp Hanger Relationship Specialty Start Date End Date Richard Edgar MD PCP - General 09/29/20
--- OUTSIDE RECORDS SUMMARY | 2025-01-16 12:53 | XMS_ITS ---
Author Name Interface, [id number] lity Address [address] [id number] Organization [facility] Address [address] [place] [address] Allergies and Adverse Reactions Medication/Group Name Reaction [...] Lab Address 07/29 Lab Repor t See cut off [employer] d 08/05 Lab Repor t See cut off [employer] [facility] 08/19 Lab Repor t See cut off [employer] [facility] 09/02 Lab Repor t See cut off [employer] [facility] 09/03 CT CHEST ABDOM EN PELVI [...] tial Patient Informa tion [place] n[place] are [facility] l results that are being deliver ed by [email or web address] f you receive a clinica l result for a patient that is not yours please fax to [facility] at . FINAL Maddison Harrison 09/09 Lab Repor t See cut off [employer] [facility] 12/16 Lab Repor t See cut off [employer] [facility] 12/23 Lab Repor t See cut off [employer] [facility] 12/30 Lab Repor t See cut off [employer] [facility] 12/30 Lab Repor t See cut off [employer] [facility] 12/31 Lab Repor t See cut off [employer] [facility] 01/07 Lab Repor t See cut off [employer] [facility] Medications Date Name Route Dose Frequency [...] approval. 2016 active 02/11 Magic Mouthwash (Lidocaine-Celio pehft-Aoitnd-N ystatin) orally 2.0 tsp every 4 to [...] Print Location: Unknown Date/Time Printed: 01/16/2025 12:52 ([facility]) Patient: LYN JAIME Sex: Male [...] mg Amount in mL: 8 Pharmacy dispense: [facility]: [id number] Dispense/Waste: 200/0 mg Given Dose/Discard: 200/0 mg [...] Amount in mL: 1.7 Pharmacy dispense: [place]: [id number] Dispense/Waste: 120/0 mg Given Dose/Discard: 120/0 mg Time: 10:35, Entered By: Jayashree Bauer RN Checked By: Kayli Humphries RN on 12/30/2017 14:06 Free Text Note : 5 rights [id number] - PIV started in left wrist. CBC and CMP drawn. 0935 - Keytruda infusing via pump, + blood [id number] - Xgeva given sub cut into right [...] Print Location: Unknown Date/Time Printed: 01/16/2025 12:52 ([facility]) Patient: LYN JAIME Sex: Male [...] mg Amount in mL: 8 Pharmacy dispense: [facility]: [id number] Dispense/Waste: 200/0 mg Given Dose/Discard: 200/0 mg Start Time: 11:50, Entered By: Kayli Humphries RN, Stop Time: 12:20, Entered By: Kayli Humphries RN Admix Fluid: 0.9 % sodium chloride, Admix Fluid Volume: 100mL, Total Volume: 108mL Checked By: Marily Andrade RN on 09/09/2017 15:42 * Nurse Note for: 02-SEP-17 [facility] Nurse Note Print Location: Unknown Date/Time Printed: 01/16/2025 12:52 ([facility]) Patient: LYN JAIME Sex: Male [...] mg Amount in mL: 1.7 Pharmacy dispense: [facility]: [id number] Dispense/Waste: 120/0 mg Given Dose/Discard: 120/0 mg [...] Print Location: Unknown Date/Time Printed: 01/16/2025 12:52 ([facility]) Patient: LYN JAIME Sex: Male [...] mg Amount in mL: 8 Pharmacy dispense: [facility]: [id number] Dispense/Waste: 200/0 mg Given Dose/Discard: 200/0 mg Start Time: 10:57, Entered By: Kayli Humphries RN, Stop Time: 11:21, Entered By: Kayli Humphries RN Admix Fluid: 0.9 % sodium chloride, Admix Fluid Volume: 100mL, Total Volume: 108mL Checked By: Jayashree Bauer RN on 08/19/2017 12:04 * Nurse Note for: 05-AUG-17 [facility] Nurse Note Print Location: Unknown Date/Time Printed: 01/16/2025 12:52 ([facility]) Patient: LYN JAIME Sex: Male [...] mg Amount in mL: 1.7 Pharmacy dispense: [facility]: [id number] Dispense/Waste: 120/0 mg Given Dose/Discard: 120/0 mg Time: 13:45 Checked By: Jayashree Bauer RN on 08/05/2017 16:40 * Nurse Note for: 29-JUL-17 [facility] Nurse Note Print Location: Unknown Date/Time Printed: 01/16/2025 12:52 ([facility]) Patient: LYN JAIME Sex: Male [...] mg Amount in mL: 8 Pharmacy dispense: [facility]: [id number] Dispense/Waste: 200/0 mg Given Dose/Discard: 200/0 mg [...] with mother without difficulty Entered By Jayashree Buaer RN on 16:34
--- OUTSIDE RECORDS SUMMARY | 2025-01-16 12:53 | XMS_ITS | Clinical Summary ---
Author Organization [facility] Address [address] [place] [address] Care Team Providers Care Fabric Worker Leader Name Role Phone Richard Edgar MD Primary Care Provider [phone] Allergies Active Allergy Reactions Criticality Noted Date [...] Plan of Treatment Not on file Insurance [facility] Advance Directives For more information, please contact: [phone] Documents on File Type Date Recorded Patient Shed Workers Supervisor Expl anation Advance Directives and Living Will 05/03/2020 9:46 AM [facility] POWER OF TAX AGENT * Full Code (Latest Code Status on File) Date Activated Date Inactivated Comments 04/28/2020 12:20 AM No automated chest compression devices for VAD Patients Care Teams Fabric Worker Leader Relationship Specialty [place] [address] [place] [address] PCP - General Family Medicine 04/27/20
--- OUTSIDE RECORDS SUMMARY | 2025-01-16 12:53 | XMS_ITS ---
Author Organization [facility] Address [address], [address] [place] [address] Care Team Providers Care Agricultural Service Worker Name Role Phone Marlyn Quintero MD, Pantera Primary Care Provider [facility] [facility] Active Problems Problem Noted Date Diagnosed [...]
--- OUTSIDE RECORDS SUMMARY | 2025-01-16 12:53 | XMS_ITS ---
Author Name Interface, [id number] lity Address [address] [id number] Organization [facility] Address [address] [place] [id number] Allergies and Adverse Reactions Medication/Group Name Reaction [...] Lab Address 12/23 Lab Repor t See child care provider d 12/30 Lab Repor t See child care provider d 12/30 Lab Repor t See child care provider d 12/31 Lab Repor t See child care provider d 01/07 Lab Repor t See child care provider d Medications Date Name Route Dose Frequency [...] approval. 2016 active 02/11 Magic Mouthwash (Lidocaine-Celio zclgn-Glhthe-V ystatin) orally 2.0 tsp every 4 to [...] Print Location: Unknown Date/Time Printed: 01/16/2025 12:52 ([facility]) Patient: LYN JAIME Sex: Male : [...] mg Amount in mL: 8 Pharmacy dispense: [facility]: [id number] Dispense/Waste: 200/0 mg Given Dose/Discard: 200/0 mg [...] mg Amount in mL: 1.7 Pharmacy dispense: [facility]: [id number] Dispense/Waste: 120/0 mg Given Dose/Discard: 120/0 mg Time: 10:35, Entered By: Jayashree Bauer RN Checked By: Kayli Humphries RN on 12/30/2017 14:06 Free Text Note : 5 rights [id number] - PIV started in left wrist. CBC and CMP drawn. 0935 - Keytruda infusing via pump, + blood [id number] - Xgeva given sub cut into right arm. Site clear. Bandaid applied to site.1059 - Keytruda infused. PIV flushed with NS + blood return. PIV dc'd and pressure dsg applied to site. Pt ambulated out of tx center without difficulty with mother. Entered By Jayashree Bauer RN on 14:05
--- OUTSIDE RECORDS SUMMARY | 2025-01-16 12:53 | XMS_ITS | Encounter Summary ---
Author Organization [facility] Address [address] [place] [address] Care Team Providers Care Stapler Machine Name Role Phone Richard Edgar MD Primary Care Provider [phone] Reason for Referral * Consultation (Routine) - Authorized Specialty Diagnoses / Procedures Referred By Contac t Referred To Contact Endocrinology Diagnoses None to low serum cortisol response with adrenocorticotrophic hormone (ACTH) stimulation test Richard Edgar MD [address] [place] [address] Phone: tel: fax: [facility] [address] [place] [phone] Phone: tel: fax: Referral ID Status Reason Start Date Expiration Date Visits Requested Visits Authorized [id number] Authorized Specialty Services Required 11/03/2023 05/04/2025 1 1 Encounter Details Date Type Department Care Team (Latest Contact Info) Description 11/03/2023 [facility] [address] [place] [address] Richard Edgar MD [address] [place] [id number] None to low serum cortisol response with [...] drink first t yung in the morning (EYE-FABRICATOR FOAM RUBBER) to 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 or to get [...] documented as of this encounter Care Teams Stapler Machine Relationship Specialty Start Date End Date Richard Edgar MD PCP - General 09/29/20 documented as of this encounter
--- OUTSIDE RECORDS SUMMARY | 2025-01-16 12:53 | XMS_ITS | Encounter Summary ---
Author Organization [facility] Address [address] [place] [address] Care Team Providers Care Vehicle Assembly Inspector Name Role Phone Richard Edgar MD Primary Care Provider [phone] Reason for Referral * Consultation (Routine) - Closed Specialty Diagnoses / Procedures Referred By Contac t Referred To Contact Gastroenterology Diagnoses Pseudocyst of pancreas Richard Edgar MD Phone: tel: fax: Marcel Juarez MD [address] [facility] [address] [place] [address] Phone: tel: fax: Referral ID Status Reason Start Date Expiration Date V isits Requested Visits Authorized [id number] Closed Specialty Services Required 03/01/2021 08/31/2022 1 1 Encounter Details Date Type Department Care Team (Late st Contact Info) Description 03/01/2021 Community [facility] [address] [place] [address] Richard Edgar MD [address] [place] [address] Pseudocyst of pancreas (Primary Dx) Social History [...] Primary documented in this encounter Care Teams Vehicle Assembly Inspector Relationship Specialty Start Date End Date Richard Edgar MD PCP - General 09/29/20 documented as of this encounter
--- OUTSIDE RECORDS SUMMARY | 2025-01-16 12:53 | XMS_ITS | CCD ---
Author Name Interface, [id number] lity Address [address] [place] [address] Organization [facility] Address [address] [place] [address] Care Team Providers Care Funeral Limousine Driver Name Role Phone Jennifer CHIRINOS, Bill Brar [...]
--- OUTSIDE RECORDS SUMMARY | 2025-01-16 12:53 | XMS_ITS | Clinical Summary ---
Author Organization [facility] Address [address] [place] [address] Care Team Providers Care Business Objects Architect Name Role Phone Richard Edgar MD Primary Care Provider [phone] Social History Tobacco Use Types Packs/Day Years [...] patient's age to complete this topic Insurance [place] [employer] Care Teams Business Objects Architect Relationship Specialty [place] [address] [address] [place] [phone] PCP - General Family Medicine 07/20/20
--- OUTSIDE RECORDS SUMMARY | 2025-01-16 12:53 | XMS_ITS | Clinical Summary ---
Author Organization [facility] Address [address] [place] [address] Care Team Providers Care Pneumatic Drum Sander Name Role Phone Unknown, Attending Provider Primary [...] therelease of HIV test results or diagnoses. [id number] Allergies Active Allergy Reactions Criticality Noted [...] or PCV21) 09/14/2026 09/14/2021, 03/06/2016, 03/05/2016 [place] [id number] Care Teams Pneumatic Drum Sander Relationship Specialty Start Date End Date Unknown, Attending Provider PCP - General 11/05/22
--- OUTSIDE RECORDS SUMMARY | 2025-01-16 12:53 | XMS_ITS | Clinical Summary ---
Author Organization [facility] Address [address], [address] [place] [address] Care Team Providers Care Textile Machine Operator Name Role Phone Marlyn Quintero MD, Pantera [...] 6:50 PM 06/20/2017 5:30 PM Care Teams Textile Machine Operator Relationship Specialty Start Date End Date Pantera Cline MD [address] [place] [address] PCP - General 09/03/17
--- NOTE | 2025-01-16 13:05 | ED_ITS ---
Discharge Plan Disposition Patient Disposition: Home, Self-Care Condition: Good Prescriptions Prescriptions: No Action folic acid 1 mg tablet 1 mg PO DAILY Qty: 100 10RF albuterol sulfate 90 mcg/actuation aero powdr breath act w/sensor 1 inh IH Q4HP PRN (Reason: Shortness Of Breath) Qty: 1 12RF thiamine HCl (vitamin B1) 100 mg tablet 100 mg PO DAILY Qty: 100 10RF trazodone 100 mg tablet 100 mg PO DAILY Qty: 90 3RF Vivitrol 380 mg suspension,extended rel recon 380 mg IM QMONTH Qty: 1 10RF ascorbic acid (vitamin C) 250 mg tablet 250 mg PO DAILY Qty: 100 10RF vkzoox-hxlesgnd-nxavjye 36,000-114,000- 180,000 unit capsule,delayed release(DR/EC) 2 cap PO BIDWMEAL Qty: 360 12RF ivermectin 6 mg tablet See Rx Instructions PO WEEKLY Qty: 8 0RF Rx Instructions: four tablets orally weekly; levetiracetam 500 mg tablet 500 mg PO BID Qty: 60 2RF lorazepam 2 mg tablet 2 mg PO BIDP PRN (Reason: Anxiety) Qty: 60 0RF permethrin [Elimite] 5 % cream 1 applic topical ONCE Qty: 60 1RF Rx Instructions: apply to entire body surface from neck down let soak in for 12 hours then shower off repeat in 5 days if needed sucralfate [Carafate] 1 gram tablet 1 g PO BID fluticasone propionate [Flonase Allergy Relief] 50 mcg/actuation spray,suspension 2 spray intranasal BID Rx Instructions: administer into each nostril Trelegy Ellipta 100-62.5-25 mcg Blister With Device 1 inh inhalation DAILY 30 Days Qty: 60 0RF ipratropium-albuterol 0.5 mg-3 mg(2.5 mg base)/3 mL Solution For Nebulization 3 ml inhalation Q6HP PRN (Reason: Shortness Of Breath) 30 Days Qty: 180 5RF pantoprazole 40 mg tablet,delayed release (DR/EC) 40 mg PO DAILY docusate sodium 100 mg capsule 100 mg PO BID melatonin 5 mg tablet 10 mg PO HS PRN (Reason: Sleep) Patient Comments: TAKE 2 TABLETS BY MOUTH ONCE A DAY NEEDED Referrals Follow up/Referrals: Provider,Referral, MD [Primary Care Provider, Medical] - See instructions Activity Restrictions/Add. Instructions Additional Instructions/Restrictions: Please take all your medication as prescribed, please follow-up with your PCP and outpatient alcohol detoxification programs if you want to pursue/attempt to get help with your alcohol use disorder. Please return to the emergency department with any worsening signs or symptoms. Clinical Impressions Clinical Impression: Alcohol intoxication, Nausea, Alcohol abuse, Hyponatremia Instructions Patient Instructions: DI for Alcohol Use Disorder, DI for Hyponatremia, DI for Nausea -- Adult Print Language Print Language: Italian Discharge ED Provider: Frida Choi General Adult HPI <RAMA Bains - Last Filed: 01/16/25 16:16> General Chief complaint: Nausea/Vomiting/Diarrhea Stated complaint: N/V/D Time Seen by Provider: 01/16/25 12:52 Mode of Arrival: EMS Source of Information: Patient and Medical Record Limitations: No Limitations History of Present Illness HPI narrative: 59-year-old male presents the emergency department via EMS with initial concern for seizure , patient at the bedside is not postictal appearing, EMS did not witness any seizure activity, patient states I do not think you had a seizure, I have just blacked out . Patient chief complaint is nausea vomiting for the last 3 days, diarrhea for 1 week, patient states I think I am dehydrated . Patient states he is a current everyday drinker, he is currently Vivitrol therapy, last dose was November 30, patient tells me I know I cannot drink on this medication but I do anyway , patient states that he typically drinks around 15 beers daily, last drink was around 5 AM this morning, patient had around 3 beers, patient states that he is generally weak and shaky , denies any fever chills chest pain shortness of breath, nausea, denies any abdominal pain, denies any constipation, denies any hematuria melena hematochezia or hematemesis, initial triage vitals are notable for tachycardia, patient is a current everyday smoker, denies any other drug use, other past medical history is consistent with alcohol abuse, bipolar 1 disorder, COPD, GERD, pancreatic pseudocyst, patient is on anticonvulsant therapy with Keppra has been taking this medication as prescribed, as well as Ativan as needed last dose was around 5 AM this morning. My initial CIWA score was 7-8 Please note that above description of symptoms, in this electronic medical record under categorization of recalled from ER triage doctor by RN are reflective of an initial nursing assessment, however, is not reflective of my full history and physical exam that was personally taken and clarified. Consequentially, this preceding description of symptoms, which may include the patient's categorized chief complaint in the EMR, do not reflect my personal clinical impression, and the ultimate description of history of present illness and patient stated complaints should be deferred to this section of the note. Unless stated otherwise or congruent with this section of the note, additional signs, symptoms, or incongruence should be interpreted as inaccurate with my clinical impression. Onset (ago): hour(s) Related Data Home Medications ?Medication ?Instructions ?Recorded ?Confirmed fluticasone propionate 50 2 spray intranasal BID 04/1412/03/24 mcg/actuation nasal spray,suspension (Flonase Allergy Relief) sucralfate 1 gram tablet (Carafate) 1 g PO BID 4 12/03/24 docusate sodium 100 mg capsule 100 mg PO BID 10/19/24 12/03/24 melatonin 5 mg tablet 10 mg PO HS PRN Sleep 12/03/24 pantoprazole 40 mg tablet,delayed 40 mg PO DAILY 10/1912/03/24 release Previous Rx's ?Medication ?Instructions ?Recorded folic acid 1 mg tablet 1 mg PO DAILY #100 tabs 11/16 10/09 albuterol sulfate 90 mcg/actuation 1 inh inhalation Q4 HP PRN 02/12/24 breath activated powder Shortness Of Breath #1 ea inhaler,sensor ascorbic acid (vitamin C) 250 mg 250 mg PO DAILY #100 tabs 05/07/24 tablet fluticasone fur. 100 mcg-umeclid 1 inh inhalation VIOLETA Y 30 days #60 07/18/24 62.5 mcg-vilant 25 mcg ea inhalat.powder (Trelegy Ellipta) trazodone 100 mg tablet 100 mg PO DAILY #90 tabs 10/10 etkqai-lbmistzd-iefesaz 2 cap PO BIDWMEAL #360 caps 07/28/24 36,000-114,000-180,000 unit capsule,delay rel ipratropium 0.5 mg-albuterol 3 mg 3 ml inhalation Q6HP PRN Shortness 09/21/24 (2.5 mg base)/3 mL nebulization Of Breath 30 days #180 mL soln thiamine HCl (vitamin B1) 100 mg 100 mg PO DAILY #100 tabs 10/04/24 tablet ivermectin 6 mg tablet See Rx Instructions PO WEEKL Y 2 11/24/24 doses #8 tabs levetiracetam 500 mg tablet 500 mg PO BID #60 tabs naltrexone microspheres 380 mg 380 mg IM QMONTH #1 ea 12/02/24 intramuscular suspension,extended release (Vivitrol) lorazepam 2 mg tablet 2 mg PO BIDP PRN Anxiety #60 tabs 01/18/25 permethrin 5 % topical cream 1 applic topical ONCE 2 d oses #60 01/18/25 (Elimite) grams Allergies Allergy/AdvReac Type Severity Reaction Status Date / Time cephalexin (From Keflex) Allergy Mild Hives Verified 12/03/24 15:14 sulfamethoxazole (From Allergy Unknown Hives Verified 12/03/24 15:14 BACTRIM) trimethoprim (From BACTRIM) Allergy Unknown Hives Verified 12/03/24 15:14 [facility] <RAMA Bains - Last Filed: 01/16/25 16:16> [facility] Disclaimer: The information contained in this section may have been updated after the patient was seen, as this information can be updated by other users. Medical History (Updated 01/16/25 @ 16:15 by RAMA Bains) Alcohol abuse Abdominal pain, chronic, epigastric Substance use disorder Closed fracture of head of left ulna Hyponatremia Chronic pain Chronic pancreatitis Piloerection Paresthesias Nausea, vomiting, and diarrhea Periumbilical abdominal pain Cough Lung nodule Acute on chronic pancreatitis Acute on chronic pancreatitis Hypochloremia Hearing loss Pancreatic pseudocyst Chronic alcohol abuse Bipolar 1 disorder Seizures Abdominal aneurysm Excessive cerumen in left ear canal SBO (small bowel obstruction) Acute pancreatitis Cachexia Acute on chronic pancreatitis Gastrostomy tube dependent Metastatic non-small cell lung cancer Severe protein-calorie malnutrition Lung cancer metastatic to bone Abdominal pain Pancreatic pseudocyst Abdominal pain Bone marrow disorder Cirrhosis COPD (chronic obstructive pulmonary disease) GERD (gastroesophageal reflux disease) Gastric outlet obstruction History of lung cancer Pancreatic pseudocyst Alcoholic pancreatitis Anxiety History of lung cancer Pancreatitis, acute Gallstone pancreatitis Pancreatitis Hypokalemia Surgical History History of local excision of skin lesion History of aortic aneurysm repair History of cholecystectomy Hx of cholecystectomy Family History Other Cancer of lung Emphysema lung Social History Smoking Status: Current every day smoker tobacco type: cigarettes packs per day: 3 pack-years: 201 alcohol intake: former substance use type: denies use current occupational status: unemployed and disabled Travel in the last 8 weeks?: None household members: family housing: house current occupational exposures/hazards: No caffeine: No Have you lived/traveled outside [place] in past 30 days?: No Contact w/someone who lives/traveled outside US past 30 days?: No Exposure to someone with infectious disease in past 14 days?: No Do you have a fever (greater than 100.4 F or 38 C)?: No Have you tested positive for COVID-19?: No Exposed to someone with COVID-19 in past 14 days?: No Do you have a sore throat?: No Do you have a cough?: No Do you have any weakness?: No Do you have any diarrhea?: No Are you experiencing any unusual bleeding?: No Do you have any muscle aches/pain?: No Do you have any abdominal pain?: No Are you experiencing loss of taste or smell?: No Other Medical History Have you received the Flu Vaccine for this season: No Have you received the Pneumonia Vaccine: No <RAMA Bains - Last Filed: 01/16/25 16:16> ROS Obtained: Yes All systems reviewed & no additional complaints except as documented Physical Exam <RAMA Bains - Last Filed: 01/16/25 16:16> General General appearance: alert and in no apparent distress Head Head exam: atraumatic and normocephalic Eye Eye exam: Present PERRL and EOMI ENT ENT exam: Present mucous membranes moist Neck Neck exam: Present normal inspection Chest Chest inspection: Present normal inspection and symmetric chest wall rise Respiratory Respiratory exam: Present normal lung sounds bilaterally; Absent respiratory distress, wheezes or stridor Cardiovascular Cardiovascular exam: Present regular rate and normal rhythm Abdominal Exam Abdominal exam: Present soft; Absent tenderness Extremities Exam Extremities exam: Present normal inspection Neurological Exam Neurological exam: Present alert and oriented X3 Psychiatric Psychiatric exam: Present normal affect Skin Skin exam: Present warm and dry Medical Decision Making <RAMA Bains - Last Filed: 01/16/25 16:16> Medical Records Medical records reviewed: Yes I reviewed the patient's medical records. Screening: Per USPSTF and CDC recommendations, given the prevalence of disease in our region, it is our hospital?s policy to screen for HIV and viral Hepatitis for all patients aged 18 and over and those with ongoing risk factors. Medhat Inquiry Pt receiving controlled substance: No Medhat was queried for this patient: No Vital Signs: 01/16/25 12:54 01/16/25 13:00 01/16/25 13:30 Temperature 98.5 F Temperature Source Oral Pulse Rate 104 H 89 Pulse Rate [Left Radial] 102 H Respiratory Rate 20 15 16 Blood Pressure 107/73 L 115/71 Blood Pressure [Right Arm] 113/78 Blood Pressure Mean 84 Blood Pressure Mean [Right Arm] 89 Blood Pressure Source Blood Pressure Source [Right Arm] Automatic Cuff Blood Pressure Position Blood Pressure Position [Right Arm] Sitting 02 Sat by Pulse Oximetry 96 93 L 98 Oxygen Delivery Method Room Air Room Air 01/16/25 14:00 01/16/25 14:30 01/16/25 15:00 Temperature Temperature Source Pulse Rate 100 H Pulse Rate [Left Radial] Respiratory Rate 19 18 18 Blood Pressure 112/74 105/76 L 122/80 Blood Pressure [Right Arm] Blood Pressure Mean 93 Blood Pressure Mean [Right Arm] Blood Pressure Source Blood Pressure Source [Right Arm] Blood Pressure Position Blood Pressure Position [Right Arm] 02 Sat by Pulse Oximetry 98 Oxygen Delivery Method Room Air 01/16/25 15:30 01/16/25 16:00 01/16/25 16:23 Temperature Temperature Source Pulse Rate Pulse Rate [Left Radial] Respiratory Rate 17 17 22 Blood Pressure 102/73 L 110/73 121/69 Blood Pressure [Right Arm] Blood Pressure Mean Blood Pressure Mean [Right Arm] Blood Pressure Source Blood Pressure Source [Right Arm] Blood Pressure Position Blood Pressure Position [Right Arm] 02 Sat by Pulse Oximetry Oxygen Delivery Method 01/16/25 16:30 01/16/25 16:39 Temperature 98.0 F Temperature Source Oral Pulse Rate 90 Pulse Rate [Left Radial] Respiratory Rate 15 20 Blood Pressure 110/76 121/69 Blood Pressure [Right Arm] Blood Pressure Mean Blood Pressure Mean [Right Arm] Blood Pressure Source Automatic Cuff Blood Pressure Source [Right Arm] Blood Pressure Position Sitting Blood Pressure Position [Right Arm] 02 Sat by Pulse Oximetry Oxygen Delivery Method Room Air Lab Data Lab results reviewed: Yes I reviewed the patient's lab results. Lab Results 01/16/25 13:01: WBC 5.3, RBC 4.35 L, Hgb 14.6, Hct 39.5 L, MCV 90.8, MCH 33.6 H, MCHC 37.0 H, RDW 14.7, Plt Count 197, MPV 9.9, Neut % (Auto) 78.3, Lymph % (Auto) 9.0 L, Bartholomew % (Auto) 10.3 H, Eos % (Auto) 0.9, Baso % (Auto) 1.3, Neut # (Auto) 4.2, Lymph # (Auto) 0.5 L, Bartholomew # (Auto) 0.6, Eos # (Auto) 0.1, Baso # (Auto) 0.1, Total Counted 100, Neutrophils % (Manual) 84 H, Lymphocytes % (Manual) 7 L, Monocytes % (Manual) 8, Basophils % (Manual) 1.0, Platelet Estimate Normal, RBC Morphology Normal, PT 10.7, INR 0.96, APTT 26.9, Sodium 130 L, Potassium 4.1, Chloride 92 L, Carbon Dioxide 28, Anion Gap 14.1, BUN 7 L, Creatinine 0.70, Estimated Creat Clear 102, Estimated GFR 115, Est GFR ( Amer) 140, Glucose 83, Calcium 9.9, Magnesium 1.6, Total Bilirubin 0.9, GGT 156 H, AST 98 H, ALT 36, Alkaline Phosphatase 165 H, Total Protein 7.9, Albumin 4.9, Globulin 3.0, Albumin/Globulin Ratio 1.6, Lipase 50, Plasma/Serum Alcohol 33 H 01/16/25 13:11: Urine Opiates Screen Negative, Urine Methadone Screen Negative, Ur Barbituates Screen Negative, Ur Phencyclidine Scrn Negative, Ur Amphetamines Screen Negative, U Benzodiazepines Scrn Negative, Urine Cocaine Screen Negative, U Marijuana (THC) Screen Negative 01/16/25 13:55: Lactate 2.4 H 01/16/25 15:29: Urine Color Yellow, Urine Appearance Clear, Urine pH 6.0, Ur Specific [place] 1.015, Urine Protein Negative, Urine Glucose (UA) Negative, Urine Ketones 2+, Urine Blood Negative, Urine Nitrate Negative, Urine Bilirubin Negative, Urine Urobilinogen 0.2, Ur Leukocyte Esterase Negative, Urine RBC Occasional, Urine WBC None, Ur Squamous Epith Cells Occasional, Urine Bacteria None 01/16/25 13:01 01/16/25 13:01 Orders (Tests/Meds): ED MEDICATIONS Discontinued Medications Generic Name Dose Route Start Last Admin Trade Name Papito PRN Reason Stop Dose Admin Multivitamins 10 ml/ Thiamine 1,015 mls @ 125 mls/hr 01/16/25 13:13 01/16/25 16:40 HCl 100 mg/ Magnesium Sulfate IV 01/16/25 21:20 Infused 2 gm/ Lactated Ringer's DAILY ONE Infusion ORDERS Category Date Time Status Complete Blood Count Auto Diff Stat Lab 01/16/25 13:01 Completed Comprehensive Metabolic Panel Stat Lab 01/16/25 13:01 Completed Drug Screen,Urine Stat Lab 01/16/25 13:11 Completed Ethanol [Ethyl Alcohol] Stat Lab 01/16/25 13:01 Completed GGT [Gamma Glutamyl Transpeptidase] Stat Lab 01/16/25 13:01 Completed Lactic Acid Stat Lab 01/16/25 13:55 Completed Lipase Stat Lab 01/16/25 13:01 Completed Magnesium Stat Lab 01/16/25 13:01 Completed PT INR [Prothrombin Time INR] Stat Lab 01/16/25 13:01 Completed PTT [Activated Partial Thrombo Time] Stat Lab 01/16/25 13:01 Completed Urinalysis and Microscopic Stat Lab 01/16/25 15:29 Completed Medical Decision Narrative: 59-year-old male presents emergency department with concerns of seizure, nausea vomiting diarrhea, differential diagnosis include but not limited to, acute hypovolemia, cardiac arrhythmia, electrolyte disturbance, acute alcohol intoxication, acute alcohol withdrawal, alcoholic gastritis, among others. I discussed this patient's case with attending physician Will obtain basic laboratory studies, UDS, UA, ethyl alcohol level, GGT lactic acid lipase and magnesium level PT/INR, PTT, will have nursing staff perform CIWA, obtain EKG and place patient on seizure precautions, will give 1 L IV banana bag for fluid and vitamin replacement/electrolyte replacement therapy CBC is notable for erythrocyte pi?a at 4.35 otherwise unremarkable CBC PT/INR and PTT within normal limit CMP is noted for mild hyponatremia at 130, AST is elevated at 98, ALP is elevated at 165, lipase in normal limits Alcohol level is 33 Initial nursing CIWA was 8 Repeat CIWA was 5, nausea and anxiousness have improved. Lactic acidosis at 2.4 is noted GGT is elevated at 156. UDS negative UA is noted for ketonuria, negative leukocyte esterase, negative nitrites, grossly unremarkable UA, UDS negative I discussed this patient's case with the attending physician Dr. Corrales at shift change. I had a long discussion with the patient at the bedside patient is GCS 15 alert oriented able to answer questions appropriately, patient tells me that he has tried multiple attempts at rehabilitation, finished programs multiple times, states he does not want to quit drinking at this time, patient has anticonvulsants to include Keppra as well as Ativan as needed as needed at home, patient is getting continue to keep drinking, I did encourage alcohol cessation and offered to set up outpatient detox program, patient will pursue this via PCP, patient will continue take all medication as prescribed. Patient will return to the emergency department any worsening signs or symptoms. Patient voiced understanding and agreement with current treatment plan/discharge plan. Patient has no signs and symptoms of alcohol withdrawal at this time, patient is already taken multiple anticonvulsants today to include his Keppra and Ativan, patient is continuing to drink, and patient's CIWA is a 4 5 throughout his time in the emergency department. Patient was able to tolerate p.o. intake here. No further episodes of nausea or vomiting. I was consulted by the MACI, and we discussed the complexity of problems being addressed. I approved the treatment and management plan for this patient's care in the emergency department, thus performing a substantial portion of the medical decision making. Frida Choi MD <Frida Choi MD - Last Filed: 01/19/25 09:06> Vital Signs: 01/16/25 12:54 01/16/25 13:00 01/16/25 13:30 Temperature 98.5 F Temperature Source Oral Pulse Rate 104 H 89 Pulse Rate [Left Radial] 102 H Respiratory Rate 20 15 16 Blood Pressure 107/73 L 115/71 Blood Pressure [Right Arm] 113/78 Blood Pressure Mean 84 Blood Pressure Mean [Right Arm] 89 Blood Pressure Source Blood Pressure Source [Right Arm] Automatic Cuff Blood Pressure Position Blood Pressure Position [Right Arm] Sitting 02 Sat by Pulse Oximetry 96 93 L 98 Oxygen Delivery Method Room Air Room Air 01/16/25 14:00 01/16/25 14:30 01/16/25 15:00 Temperature Temperature Source Pulse Rate 100 H Pulse Rate [Left Radial] Respiratory Rate 19 18 18 Blood Pressure 112/74 105/76 L 122/80 Blood Pressure [Right Arm] Blood Pressure Mean 93 Blood Pressure Mean [Right Arm] Blood Pressure Source Blood Pressure Source [Right Arm] Blood Pressure Position Blood Pressure Position [Right Arm] 02 Sat by Pulse Oximetry 98 Oxygen Delivery Method Room Air 01/16/25 15:30 01/16/25 16:00 01/16/25 16:23 Temperature Temperature Source Pulse Rate Pulse Rate [Left Radial] Respiratory Rate 17 17 22 Blood Pressure 102/73 L 110/73 121/69 Blood Pressure [Right Arm] Blood Pressure Mean Blood Pressure Mean [Right Arm] Blood Pressure Source Blood Pressure Source [Right Arm] Blood Pressure Position Blood Pressure Position [Right Arm] 02 Sat by Pulse Oximetry Oxygen Delivery Method 01/16/25 16:30 01/16/25 16:39 Temperature 98.0 F Temperature Source Oral Pulse Rate 90 Pulse Rate [Left Radial] Respiratory Rate 15 20 Blood Pressure 110/76 121/69 Blood Pressure [Right Arm] Blood Pressure Mean Blood Pressure Mean [Right Arm] Blood Pressure Source Automatic Cuff Blood Pressure Source [Right Arm] Blood Pressure Position Sitting Blood Pressure Position [Right Arm] 02 Sat by Pulse Oximetry Oxygen Delivery Method Room Air Lab Data Lab Results 01/16/25 13:01: WBC 5.3, RBC 4.35 L, Hgb 14.6, Hct 39.5 L, MCV 90.8, MCH 33.6 H, MCHC 37.0 H, RDW 14.7, Plt Count 197, MPV 9.9, Neut % (Auto) 78.3, Lymph % (Auto) 9.0 L, Bartholomew % (Auto) 10.3 H, Eos % (Auto) 0.9, Baso % (Auto) 1.3, Neut # (Auto) 4.2, Lymph # (Auto) 0.5 L, Bartholomew # (Auto) 0.6, Eos # (Auto) 0.1, Baso # (Auto) 0.1, Total Counted 100, Neutrophils % (Manual) 84 H, Lymphocytes % (Manual) 7 L, Monocytes % (Manual) 8, Basophils % (Manual) 1.0, Platelet Estimate Normal, RBC Morphology Normal, PT 10.7, INR 0.96, APTT 26.9, Sodium 130 L, Potassium 4.1, Chloride 92 L, Carbon Dioxide 28, Anion Gap 14.1, BUN 7 L, Creatinine 0.70, Estimated Creat Clear 102, Estimated GFR 115, Est GFR ( Amer) 140, Glucose 83, Calcium 9.9, Magnesium 1.6, Total Bilirubin 0.9, GGT 156 H, AST 98 H, ALT 36, Alkaline Phosphatase 165 H, Total Protein 7.9, Albumin 4.9, Globulin 3.0, Albumin/Globulin Ratio 1.6, Lipase 50, Plasma/Serum Alcohol 33 H 01/16/25 13:11: Urine Opiates Screen Negative, Urine Methadone Screen Negative, Ur Barbituates Screen Negative, Ur Phencyclidine Scrn Negative, Ur Amphetamines Screen Negative, U Benzodiazepines Scrn Negative, Urine Cocaine Screen Negative, U Marijuana (THC) Screen Negative 01/16/25 13:55: Lactate 2.4 H 01/16/25 15:29: Urine Color Yellow, Urine Appearance Clear, Urine pH 6.0, Ur Specific [place] 1.015, Urine Protein Negative, Urine Glucose (UA) Negative, Urine Ketones 2+, Urine Blood Negative, Urine Nitrate Negative, Urine Bilirubin Negative, Urine Urobilinogen 0.2, Ur Leukocyte Esterase Negative, Urine RBC Occasional, Urine WBC None, Ur Squamous Epith Cells Occasional, Urine Bacteria None Orders (Tests/Meds): ED MEDICATIONS Discontinued Medications Generic Name Dose Route Start Last Admin Trade Name Freq PRN Reason Stop Dose Admin Multivitamins 10 ml/ Thiamine 1,015 mls @ 125 mls/hr 01/16/25 13:13 01/16/25 16:40 HCl 100 mg/ Magnesium Sulfate IV 01/16/25 21:20 Infused 2 gm/ Lactated Ringer's DAILY ONE Infusion ORDERS Category Date Time Status Complete Blood Count Auto Diff Stat Lab 01/16/25 13:01 Completed Comprehensive Metabolic Panel Stat Lab 01/16/25 13:01 Completed Drug Screen,Urine Stat Lab 01/16/25 13:11 Completed Ethanol [Ethyl Alcohol] Stat Lab 01/16/25 13:01 Completed GGT [Gamma Glutamyl Transpeptidase] Stat Lab 01/16/25 13:01 Completed Lactic Acid Stat Lab 01/16/25 13:55 Completed Lipase Stat Lab 01/16/25 13:01 Completed Magnesium Stat Lab 01/16/25 13:01 Completed PT INR [Prothrombin Time INR] Stat Lab 01/16/25 13:01 Completed PTT [Activated Partial Thrombo Time] Stat Lab 01/16/25 13:01 Completed Urinalysis and Microscopic Stat Lab 01/16/25 15:29 Completed Medical Decision Narrative: 59-year-old male presents emergency department with concerns of seizure, nausea vomiting diarrhea, differential diagnosis include but not limited to, acute hypovolemia, cardiac arrhythmia, electrolyte disturbance, acute alcohol intoxication, acute alcohol withdrawal, alcoholic gastritis, among others. I discussed this patient's case with attending physician Will obtain basic laboratory studies, UDS, UA, ethyl alcohol level, GGT lactic acid lipase and magnesium level PT/INR, PTT, will have nursing staff perform CIWA, obtain EKG and place patient on seizure precautions, will give 1 L IV banana bag for fluid and vitamin replacement/electrolyte replacement therapy CBC is notable for erythrocyte pi?a at 4.35 otherwise unremarkable CBC PT/INR and PTT within normal limit CMP is noted for mild hyponatremia at 130, AST is elevated at 98, ALP is elevated at 165, lipase in normal limits Alcohol level is 33 Initial nursing CIWA was 8 Repeat CIWA was 5, nausea and anxiousness have improved. Lactic acidosis at 2.4 is noted GGT is elevated at 156. UDS negative UA is noted for ketonuria, negative leukocyte esterase, negative nitrites, grossly unremarkable UA, UDS negative I discussed this patient's case with the attending physician Dr. Corrales at shift change. I had a long discussion with the patient at the bedside patient is GCS 15 alert oriented able to answer questions appropriately, patient tells me that he has tried multiple attempts at rehabilitation, finished programs multiple times, states he does not want to quit drinking at this time, patient has anticonvulsants to include Keppra as well as Ativan as needed as needed at home, patient is getting continue to keep drinking, I did encourage alcohol cessation and offered to set up outpatient detox program, patient will pursue this via PCP, patient will continue take all medication as prescribed. Patient will return to the emergency department any worsening signs or symptoms. Patient voiced understanding and agreement with current treatment plan/discharge plan. Patient has no signs and symptoms of alcohol withdrawal at this time, patient is already taken multiple anticonvulsants today to include his Keppra and Ativan, patient is continuing to drink, and patient's CIWA is a 4- 5 throughout his time in the emergency department. Patient was able to tolerate p.o. intake here. No further episodes of nausea or vomiting. I was consulted by the MACI, and we discussed the complexity of problems being addressed. I approved the treatment and management plan for this patient's care in the emergency department, thus performing a substantial portion of the medical decision making. Frida Choi MD Critical Care <RAMA Bains - Last Filed: 01/16/25 16:16> Critical Care Time Critical Care Time: No
--- NOTE | 2025-01-16 13:07 | PC.NURSE ---
nani guadarrama at bedside
[2025-01-16 13:23] LABS: Hematocrit 39.5 % (42.0-52.0); Hemoglobin 14.6 g/dL (14.1-18.0); Immature Granulocytes % 0.2 %; Mean Corpuscular HGB Conc 37.0 g/dL (31.8-35.4); Mean Corpuscular Hemoglobin 33.6 pg (27.0-31.2); Mean Corpuscular Volume 90.8 fl (80-94); Nucleated Red Blood Cells % 0 %; Platelet Count 197 K/mm3 (142-424); Red Blood Count 4.35 M/mm3 (4.60-6.20); Red Cell Distribution Width-SD 49.4 fL; White Blood Count 5.3 K/mm3 (4.8-10.8)
[2025-01-16 13:29] LABS: INR 0.96 (0.9-1.1); Prothrombin Time 10.7 seconds (10.1-12.5)
[2025-01-16] MEDS: MVI, ADULT NO.1 WITH VIT K 10 ML, THIAMINE HCL 100 MG, MAGNESIUM SULFATE 2 GM in LACTAT... 125 ML IV (13:29)
[2025-01-16 13:30] LABS: Chloride 92 mmol/L (98-107)
[2025-01-16 13:31] LABS: Potassium 4.1 mmoL/L (3.5-5.1); Sodium 130 mmol/L (136-145)
[2025-01-16 13:32] LABS: Activated Partial Thrombo Time 26.9 seconds (22.8-30.6)
[2025-01-16 13:33] LABS: Alanine Aminotransferase 36 U/L (12-78); Anion Gap 14.1 mEq/L (5-15); Aspartate Amino Transferase 98 U/L (17-59); Blood Urea Nitrogen 7 mg/dl (9-20); Carbon Dioxide 28 mmol/L (22.0-30.0); Creatinine Clearance Estimated 102 mL/min (50-200); Creatinine,Serum 0.70 mg/dl (0.66-1.25); Estimated Glomerular Filt Rate 115 ml/min (>60); GFR (African American) 140 ML/MIN (>60)
[2025-01-16 13:34] LABS: Alkaline Phosphatase 165 U/L (38-126); Bilirubin,Total 0.9 mg/dl (0.2-1.3); Calcium 9.9 mg/dl (8.4-10.2); Gamma Glutamyl Transpeptidase 156 U/L (15-73); Glucose 83 mg/dl (74-100); Lipase 50 U/L (23-300); Magnesium 1.6 mg/dl (1.6-2.3); Total Protein,Serum 7.9 g/dl (6.3-8.2)
--- NOTE | 2025-01-16 13:34 | ECG_ITS ---
APPROVED REPORT Exam: Resting ECG HR:92 bpm ECG Measurements Heart Rate 92 AXES VT 156 P 80 QRSd 90 QRS 83 QT 353 T 79 QTc 403 Conclusion Normal sinus rhythm no ST elevation or ST depression. T wave inversions in V1 V2. Normal axis Electronically signed by : Frida Choi, 01/16/2025 14:57:50
--- NOTE | 2025-01-16 13:35 | PC.NURSE ---
provided pt with urinal for ua.
[2025-01-16 14:03] LABS: RBC Morphology Normal; Total Cells Counted 100
[2025-01-16 14:59] LABS: Albumin Level 4.9 g/dl (3.5-5.0); Albumin/Globulin Ratio 1.6 (1.1-1.8); Globulin 3.0 g/dL (1.3-3.2)
[2025-01-16 15:32] LABS: Microscopic, Urine URINE MICROSCOPIC (MICROSCOPIC)
[2025-01-16 15:40] LABS: Bilirubin,Urine Negative (Negative); Color,Urine YELLOW (Yellow); Glucose,Urine (UA) Negative (Negative); Ketones,Urine 2+ (Negative); Leukocyte Esterase,Urine Negative (Negative); PH,Urine 6.0 (5.0-8.5); Protein,Urine Negative (Negative); Specific Gravity, Urine 1.015 (1.005-1.030); Urobilinogen,Urine 0.2 EU/dl (0.2)
[2025-01-16 15:52] LABS: Amphetamine/Metha Screen,Urine Negative ng/ml (<1000); Barbiturates Screen,Urine Negative ng/ml (<200)
[2025-01-16 15:53] LABS: Benzodiazepines Screen,Urine Negative ng/ml (<200)
[2025-01-16 15:55] LABS: Methadone Screen,Urine Negative ng/ml (<300); Opiate Screen,Urine Negative ng/ml (<300)
[2025-01-16 15:56] LABS: Phencyclidine Screen,Urine Negative ng/ml (<25)
[2025-01-16 16:03] LABS: RBC,Urine Occasional #/hpf (0-3); Squamous Epithelial Cell,Urine Occasional #/hpf (0-5)
[2025-01-16 17:58] LABS: Reflex Lactic Add Lactic Reflex
== END 2025-01-16 17:00 | disposition home or self-care (01) ==
PROVIDERS: Physician Assistant; Emergency Provider Student in an Organized Health Care Education/Training Program
DX: F10.129 Alcohol abuse with intoxication, unspecified (principal); R11.2 Nausea with vomiting, unspecified; E87.1 Hypo-osmolality and hyponatremia; R74.02 Elevation of levels of lactic acid dehydrogenase [LDH]; F17.210 Nicotine dependence, cigarettes, uncomplicated
CPT/HCPCS: 80053; 80307; 80320; 81001; 82977; 83605; 83690; 83735; 85007; 85025; 85027; 85610; 85730; 93005; 96365; 96366; 99285; J3411; J3475; J7120

== ENCOUNTER 2025-03-04 10:54 | Emergency (ER) | payer MEDICAID, SELFPAY ==
[2025-03-04 11:00] VITALS: BP 119/78; PULSE 97; RESP 18; TEMP 36.6; O2SAT 99; BMI 21.7
--- NOTE | 2025-03-04 11:01 | ECG_ITS ---
APPROVED REPORT Exam: Resting ECG HR:88 bpm ECG Measurements Heart Rate 88 AXES AL 151 P 83 QRSd 90 QRS 90 QT 358 T 76 QTc 403 Conclusion SINUS RHYTHM NORMAL ECG Electronically signed by : MARIELENA CHAMBERS, 03/04/2025 16:05:17
--- OUTSIDE RECORDS SUMMARY | 2025-03-04 11:03 | XMS_ITS | Clinical Summary ---
Author Organization [facility] Address [address], [address] [place] [address] Care Team Providers Care Side Framer Name Role Phone Marlyn Quintero MD, Pantera [...] 6:50 PM 06/20/2017 5:30 PM Care Teams Side Framer Relationship Specialty Start Date End Date Pantera Cline MD [address] [place] [address] PCP - General 09/03/17
--- OUTSIDE RECORDS SUMMARY | 2025-03-04 11:03 | XMS_ITS ---
Author Name Interface, [email or web address] Address [address] [place] [address] Organization [facility] Address [address] [place] [address] Allergies and Adverse Reactions Medication/Group Name Reaction Severity Date SULFAMETHOXAZOLE-TRIMETHOPRIM 12/30/2017 Plan Date Type Value 08/16/2020 APPOINTMENT EMAIL SENT/NOTED CB 01/20/2018 APPOINTMENT MACI+TX 01/20/2018 APPOINTMENT MACI+TX 01/20/2018 APPOINTMENT MACI+TX 12/30/2017 APPOINTMENT TX ONLY 12/30/2017 APPOINTMENT TX ONLY 12/23/2017 APPOINTMENT scan results 12/23/2017 APPOINTMENT scan results 12/16/2017 APPOINTMENT fu 12/16/2017 APPOINTMENT fu 12/16/2017 APPOINTMENT fu 12/16/2017 LAB_ORDER CBC w/ auto diff 12/16/[address] chest w/ IV c ontrast 12/23/2017 LAB_ORDER CMP 12/23/2017 LAB_ORDER CBC w/ auto diff 12/23/2017 LAB_ORDER FISH panel 12/30/2017 LAB_ORDER CMP 12/30/2017 LAB_ORDER CBC w/ auto diff 01/20/2018 LAB_ORDER CMP 01/20/2018 LAB_ORDER CBC w/ auto diff Reason for Visit EMAIL SENT/NOTED CB Encounters Date Name 12/16/2017 Alcohol abuse 12/16/2017 Non-small cell lung cancer (disorder) 12/16/2017 Oral omar 12/16/2017 Secondary malignant neoplasm of bone (disorder) 12/16/2017 Tobacco use Diagnostic Results Date Type Test Units Lower Limit Upper Limit Result Flag Comments Status Ordered By Specimen Source Lab Address 12/16 Lab Repor t See silverware buffer d 12/23 Lab Repor t See silverware buffer d 12/30 Lab Repor t See silverware buffer d 12/30 Lab Repor t See silverware buffer d 12/31 Lab Repor t See silverware buffer d 01/07 Lab Repor t See silverware buffer d Medications Date Name Route Dose Frequency Instructions Start Date End Date Status Fill Status Indication 12/16 Levetir acetam Oral (Keppra ) orally 250.0 mg 2 times per day active 06/24 Prednis olone Oral Liquid orally 20.0 every 12 hours for 5 days active 12/16 Potirvini um Chlorid e Oral ER Tab orally 1.0 tablet extend ed releas e every day quantity sufficient for 3 days; 1 refills active 01/08 Methylp redniso lone IV intrave nously 125.0 mg Re-initiate treatment only upon physician approval. 2018 active Non-small cell lung cancer (disorder) 01/08 Hydroco rtisone IV intrave nously 100.0 mg Re-initiate treatment only upon physician approval. 2018 active Non-small cell lung cancer (disorder) 01/08 4 ML pembrol izumab 25 MG/ML Injecti on intrave nous 200.0 mg once Dilute with NS or D5W to a final concentration of 1-10 mg/mL. Infuse with low protein binding filter (0.2 - 5 micron). Do not mix with other drugs. Do not shake. 2018 active Non-small cell lung cancer (disorder) 01/08 diphenh ydramin e hydroch loride 0.5 MG/ML Injecta ble Solutio n intrave nously 50.0 mg Re-initiate treatment only upon physician approval. 2018 active Non-small cell lung cancer (disorder) 01/08 Hydroco rtisone IV intrave nously 100.0 mg Re-initiate treatment only upon physician approval. 2017 active Non-small cell lung cancer (disorder) 01/08 4 ML pembrol izumab 25 MG/ML Injecti on intrave nous 200.0 mg once Dilute with NS or D5W to a final concentration of 1-10 mg/mL. Infuse with low protein binding filter (0.2 - 5 micron). Do not mix with other drugs. Do not shake. 2017 active Non-small cell lung cancer (disorder) 01/08 Methylp redniso lone IV intrave nously 125.0 mg Re-initiate treatment only upon physician approval. 2017 active Non-small cell lung cancer (disorder) 01/08 diphenh ydramin e hydroch loride 0.5 MG/ML Injecta ble Solutio n intrave nously 50.0 mg Re-initiate treatment only upon physician approval. 2017 active Non-small cell lung cancer (disorder) 01/08 diphenh ydramin e hydroch loride 0.5 MG/ML Injecta ble Solutio n intrave nously 50.0 mg Re-initiate treatment only upon physician approval. 2017 active Non-small cell lung cancer (disorder) 01/08 4 ML pembrol izumab 25 MG/ML Injecti on intrave nous 200.0 mg once Dilute with NS or D5W to a final concentration of 1-10 mg/mL. Infuse with low protein binding filter (0.2 - 5 micron). Do not mix with other drugs. Do not shake. 2017 active Non-small cell lung cancer (disorder) 01/08 Methylp redniso lone IV intrave nously 125.0 mg Re-initiate treatment only upon physician approval. 2017 active Non-small cell lung cancer (disorder) 01/08 Hydroco rtisone IV intrave nously 100.0 mg Re-initiate treatment only upon physician approval. 2017 active Non-small cell lung cancer (disorder) 01/08 diphenh ydramin e hydroch loride 0.5 MG/ML Injecta ble Solutio n intrave nously 50.0 mg Re-initiate treatment only upon physician approval. 2017 active Non-small cell lung cancer (disorder) 01/08 Hydroco rtisone IV intrave nously 100.0 mg Re-initiate treatment only upon physician approval. 2017 active Non-small cell lung cancer (disorder) 01/08 4 ML pembrol izumab 25 MG/ML Injecti on intrave nous 200.0 mg once Dilute with NS or D5W to a final concentration of 1-10 mg/mL. Infuse with low protein binding filter (0.2 - 5 micron). Do not mix with other drugs. Do not shake. 2017 active Non-small cell lung cancer (disorder) 01/08 Methylp redniso lone IV intrave nously 125.0 mg Re-initiate treatment only upon physician approval. 2017 active Non-small cell lung cancer (disorder) 01/08 4 ML pembrol izumab 25 MG/ML Injecti on intrave nous 200.0 mg once Dilute with NS or D5W to a final concentration of 1-10 mg/mL. Infuse with low protein binding filter (0.2 - 5 micron). Do not mix with other drugs. Do not shake. 2017 active Non-small cell lung cancer (disorder) 01/08 diphenh ydramin e hydroch loride 0.5 MG/ML Injecta ble Solutio n intrave nously 50.0 mg Re-initiate treatment only upon physician approval. 2017 active Non-small cell lung cancer (disorder) 01/08 Methylp redniso lone IV intrave nously 125.0 mg Re-initiate treatment only upon physician approval. 2017 active Non-small cell lung cancer (disorder) 01/08 Hydroco rtisone IV intrave nously 100.0 mg Re-initiate treatment only upon physician approval. 2017 active Non-small cell lung cancer (disorder) 10/24 diphenh ydramin e hydroch loride 0.5 MG/ML Injecta ble Solutio n intrave nously 50.0 mg Re-initiate treatment only upon physician approval. 2017 active Secondary malignant neoplasm of bone (disorder) 10/24 hydroco rtisone 100 MG Injecti on intrave nously 100.0 mg Re-initiate treatment only upon physician approval. 2017 active Secondary malignant neoplasm of bone (disorder) 10/24 1.7 ML denosum ab 70 MG/ML Injecti on subcuta neously 120.0 mg once Administer in upper arm, upper thigh, or abdomen. 2017 active Secondary malignant neoplasm of bone (disorder) 10/24 methylp redniso lone 2000 MG Injecti on intrave nously 125.0 mg Re-initiate treatment only upon physician approval. 2017 active Secondary malignant neoplasm of bone (disorder) 01/08 Methylp redniso lone IV intrave nously 125.0 mg Re-initiate treatment only upon physician approval. 2017 active Non-small cell lung cancer (disorder) 01/08 4 ML pembrol izumab 25 MG/ML Injecti on intrave nous 200.0 mg once Dilute with NS or D5W to a final concentration of 1-10 mg/mL. Infuse with low protein binding filter (0.2 - 5 micron). Do not mix with other drugs. Do not shake. 2017 active Non-small cell lung cancer (disorder) 01/08 diphenh ydramin e hydroch loride 0.5 MG/ML Injecta ble Solutio n intrave nously 50.0 mg Re-initiate treatment only upon physician approval. 2017 active Non-small cell lung cancer (disorder) 01/08 Hydroco rtisone IV intrave nously 100.0 mg Re-initiate treatment only upon physician approval. 2017 active Non-small cell lung cancer (disorder) 10/24 methylp redniso lone 2000 MG Injecti on intrave nously 125.0 mg Re-initiate treatment only upon physician approval. 2017 active Secondary malignant neoplasm of bone (disorder) 10/24 diphenh ydramin e hydroch loride 0.5 MG/ML Injecta ble Solutio n intrave nously 50.0 mg Re-initiate treatment only upon physician approval. 2017 active Secondary malignant neoplasm of bone (disorder) 10/24 1.7 ML denosum ab 70 MG/ML Injecti on subcuta neously 120.0 mg once Administer in upper arm, upper thigh, or abdomen. 2017 active Secondary malignant neoplasm of bone (disorder) 10/24 hydroco rtisone 100 MG Injecti on intrave nously 100.0 mg Re-initiate treatment only upon physician approval. 2017 active Secondary malignant neoplasm of bone (disorder) 01/08 diphenh ydramin e hydroch loride 0.5 MG/ML Injecta ble Solutio n intrave nously 50.0 mg Re-initiate treatment only upon physician approval. 2017 active Non-small cell lung cancer (disorder) 01/08 4 ML pembrol izumab 25 MG/ML Injecti on intrave nous 200.0 mg once Dilute with NS or D5W to a final concentration of 1-10 mg/mL. Infuse with low protein binding filter (0.2 - 5 micron). Do not mix with other drugs. Do not shake. 2017 active Non-small cell lung cancer (disorder) 01/08 Hydroco rtisone IV intrave nously 100.0 mg Re-initiate treatment only upon physician approval. 2017 active Non-small cell lung cancer (disorder) 01/08 Methylp redniso lone IV intrave nously 125.0 mg Re-initiate treatment only upon physician approval. 2017 active Non-small cell lung cancer (disorder) 10/24 diphenh ydramin e hydroch loride 0.5 MG/ML Injecta ble Solutio n intrave nously 50.0 mg Re-initiate treatment only upon physician approval. 2017 active Non-small cell lung cancer (disorder) 10/24 methylp redniso lone 2000 MG Injecti on intrave nously 125.0 mg Re-initiate treatment only upon physician approval. 2017 active Secondary malignant neoplasm of bone (disorder) 10/24 Hydroco rtisone IV intrave nously 100.0 mg Re-initiate treatment only upon physician approval. 2017 active Non-small cell lung cancer (disorder) 10/24 Methylp redniso lone IV intrave nously 125.0 mg Re-initiate treatment only upon physician approval. 2017 active Non-small cell lung cancer (disorder) 10/24 hydroco rtisone 100 MG Injecti on intrave nously 100.0 mg Re-initiate treatment only upon physician approval. 2017 active Secondary malignant neoplasm of bone (disorder) 10/24 diphenh ydramin e hydroch loride 0.5 MG/ML Injecta ble Solutio n intrave nously 50.0 mg Re-initiate treatment only upon physician approval. 2017 active Secondary malignant neoplasm of bone (disorder) 10/24 Methylp redniso lone IV intrave nously 125.0 mg Re-initiate treatment only upon physician approval. 2017 active Non-small cell lung cancer (disorder) 10/24 Hydroco rtisone IV intrave nously 100.0 mg Re-initiate treatment only upon physician approval. 2017 active Non-small cell lung cancer (disorder) 10/24 diphenh ydramin e hydroch loride 0.5 MG/ML Injecta ble Solutio n intrave nously 50.0 mg Re-initiate treatment only upon physician approval. 2017 active Non-small cell lung cancer (disorder) 10/24 diphenh ydramin e hydroch loride 0.5 MG/ML Injecta ble Solutio n intrave nously 50.0 mg Re-initiate treatment only upon physician approval. 2017 active Secondary malignant neoplasm of bone (disorder) 10/24 methylp redniso lone 2000 MG Injecti on intrave nously 125.0 mg Re-initiate treatment only upon physician approval. 2017 active Secondary malignant neoplasm of bone (disorder) 10/24 hydroco rtisone 100 MG Injecti on intrave nously 100.0 mg Re-initiate treatment only upon physician approval. 2017 active Secondary malignant neoplasm of bone (disorder) 10/24 Methylp redniso lone IV intrave nously 125.0 mg Re-initiate treatment only upon physician approval. 2017 active Non-small cell lung cancer (disorder) 10/24 Hydroco rtisone IV intrave nously 100.0 mg Re-initiate treatment only upon physician approval. 2017 active Non-small cell lung cancer (disorder) 10/24 diphenh ydramin e hydroch loride 0.5 MG/ML Injecta ble Solutio n intrave nously 50.0 mg Re-initiate treatment only upon physician approval. 2017 active Non-small cell lung cancer (disorder) 10/24 diphenh ydramin e hydroch loride 0.5 MG/ML Injecta ble Solutio n intrave nously 50.0 mg Re-initiate treatment only upon physician approval. 2017 active Secondary malignant neoplasm of bone (disorder) 10/24 methylp redniso lone 2000 MG Injecti on intrave nously 125.0 mg Re-initiate treatment only upon physician approval. 2017 active Secondary malignant neoplasm of bone (disorder) 10/24 hydroco rtisone 100 MG Injecti on intrave nously 100.0 mg Re-initiate treatment only upon physician approval. 2017 active Secondary malignant neoplasm of bone (disorder) 10/24 Methylp redniso lone IV intrave nously 125.0 mg Re-initiate treatment only upon physician approval. 2017 active Non-small cell lung cancer (disorder) 10/24 Hydroco rtisone IV intrave nously 100.0 mg Re-initiate treatment only upon physician approval. 2017 active Non-small cell lung cancer (disorder) 10/24 diphenh ydramin e hydroch loride 0.5 MG/ML Injecta ble Solutio n intrave nously 50.0 mg Re-initiate treatment only upon physician approval. 2017 active Non-small cell lung cancer (disorder) 10/24 Methylp redniso lone IV intrave nously 125.0 mg Re-initiate treatment only upon physician approval. 2017 active Non-small cell lung cancer (disorder) 10/24 diphenh ydramin e hydroch loride 0.5 MG/ML Injecta ble Solutio n intrave nously 50.0 mg Re-initiate treatment only upon physician approval. 2017 active Secondary malignant neoplasm of bone (disorder) 10/24 Hydroco rtisone IV intrave nously 100.0 mg Re-initiate treatment only upon physician approval. 2017 active Non-small cell lung cancer (disorder) 10/24 methylp redniso lone 2000 MG Injecti on intrave nously 125.0 mg Re-initiate treatment only upon physician approval. 2017 active Secondary malignant neoplasm of bone (disorder) 10/24 hydroco rtisone 100 MG Injecti on intrave nously 100.0 mg Re-initiate treatment only upon physician approval. 2017 active Secondary malignant neoplasm of bone (disorder) 10/24 diphenh ydramin e hydroch loride 0.5 MG/ML Injecta ble Solutio n intrave nously 50.0 mg Re-initiate treatment only upon physician approval. 2017 active Non-small cell lung cancer (disorder) 07/01 Prednis olone Oral Liquid Oral 40.0 mg 2017 active 10/24 Hydroco rtisone IV intrave nously 100.0 mg Re-initiate treatment only upon physician approval. 2017 active Non-small cell lung cancer (disorder) 10/24 methylp redniso lone 2000 MG Injecti on intrave nously 125.0 mg Re-initiate treatment only upon physician approval. 2017 active Secondary malignant neoplasm of bone (disorder) 10/24 diphenh ydramin e hydroch loride 0.5 MG/ML Injecta ble Solutio n intrave nously 50.0 mg Re-initiate treatment only upon physician approval. 2017 active Secondary malignant neoplasm of bone (disorder) 10/24 hydroco rtisone 100 MG Injecti on intrave nously 100.0 mg Re-initiate treatment only upon physician approval. 2017 active Secondary malignant neoplasm of bone (disorder) 10/24 Methylp redniso lone IV intrave nously 125.0 mg Re-initiate treatment only upon physician approval. 2017 active Non-small cell lung cancer (disorder) 10/24 diphenh ydramin e hydroch loride 0.5 MG/ML Injecta ble Solutio n intrave nously 50.0 mg Re-initiate treatment only upon physician approval. 2017 active Non-small cell lung cancer (disorder) 10/24 Hydroco rtisone IV intrave nously 100.0 mg Re-initiate treatment only upon physician approval. 2016 active Non-small cell lung cancer (disorder) 10/24 Methylp redniso lone IV intrave nously 125.0 mg Re-initiate treatment only upon physician approval. 2016 active Non-small cell lung cancer (disorder) 10/24 diphenh ydramin e hydroch loride 0.5 MG/ML Injecta ble Solutio n intrave nously 50.0 mg Re-initiate treatment only upon physician approval. 2016 active Non-small cell lung cancer (disorder) 10/24 diphenh ydramin e hydroch loride 0.5 MG/ML Injecta ble Solutio n intrave nously 50.0 mg Re-initiate treatment only upon physician approval. 2016 active Non-small cell lung cancer (disorder) 10/24 methylp redniso lone 2000 MG Injecti on intrave nously 125.0 mg Re-initiate treatment only upon physician approval. 2016 active Secondary malignant neoplasm of bone (disorder) 10/24 diphenh ydramin e hydroch loride 0.5 MG/ML Injecta ble Solutio n intrave nously 50.0 mg Re-initiate treatment only upon physician approval. 2016 active Secondary malignant neoplasm of bone (disorder) 10/24 Methylp redniso lone IV intrave nously 125.0 mg Re-initiate treatment only upon physician approval. 2016 active Non-small cell lung cancer (disorder) 10/24 hydroco rtisone 100 MG Injecti on intrave nously 100.0 mg Re-initiate treatment only upon physician approval. 2016 active Secondary malignant neoplasm of bone (disorder) 10/24 Hydroco rtisone IV intrave nously 100.0 mg Re-initiate treatment only upon physician approval. 2016 active Non-small cell lung cancer (disorder) 02/11 Magic Mouthwa sh (Lidoca ine-Celio adryl-M aalox-N ystatin ) orally 2.0 tsp every 4 to 6 hours 2016 active Non-small cell lung cancer (disorder) 02/04 Oxycodo ne-Acet aminoph en Oral 10 mg-325 mg Oral 1.0 1 Once every 6 Hours 2016 active 02/04 Ondanse jesus Oral Oral 8.0 1 Once every 8 Hours 2016 active 02/04 Prochlo rperazi ne Oral Oral 10.0 1 Once every 6 Hours 2016 active 02/04 Prednis one Oral 2015 active Problems Diagnosis Status Date [...] Beat 119.00 12/23/2017 Body Temperature 98.00 12/23/2017 BMI 26.31 12/23/2017 BSA 1.86 12/23/2017 Height 66.00 12/23/2017 Weight 163.00 12/23/2017 Pain Scale 0.00 12/30/2017 Body Temperature 98.10 12/30/2017 Heart Beat 122.00 12/30/2017 Respiratory Rate 18.00 12/30/2017 Intravascular Systolic 134 12/30/2017 Intravascular Diastolic 80 12/30/2017 BSA 1.85 12/30/2017 Height 66.00 12/30/2017 Weight 162.30 12/30/2017 Pain Scale 0.00 12/30/2017 BMI 26.20 Notes Section * Nurse Note for: 30-DEC-17 [facility] Nurse Note Print Location: Unknown Date/Time Printed: 03/04/2025 11:03 ([facility]) Patient: LYN JAIME Sex: Male [...] mg Amount in mL: 8 Pharmacy dispense: [facility]: [phone] Dispense/Waste: 200/0 mg Given Dose/Discard: 200/0 mg [...] mg Amount in mL: 1.7 Pharmacy dispense: [facility]: [phone] Dispense/Waste: 120/0 mg Given Dose/Discard: 120/0 mg Time: 10:35, Entered By: Jayashree Bauer RN Checked By: Kayli Humphries RN on 12/30/2017 14:06 Free Text Note : 5 rights [id number] - PIV started in left wrist. CBC and CMP drawn. 0935 - Keytruda infusing via pump, + blood [id number] - Xgeva given sub cut into right arm. Site clear. Bandaid applied to site.1059 - Keytruda infused. PIV flushed with NS + blood return. PIV dc'd and pressure dsg applied to site. Pt ambulated out of tx center without difficulty with mother. Entered By Jayashree Bauer RN on 14:05
--- OUTSIDE RECORDS SUMMARY | 2025-03-04 11:03 | XMS_ITS | Encounter Summary ---
Author Organization Healthcare Address [address] [place] [address] Care Team Providers Care Bank Reconciliator Name Role Phone Richard Edgar MD Primary Care Provider Reason for Referral * Consultation (Routine) - Authorized Specialty Diagnoses / Procedures Referred By Contac t Referred To Contact Endocrinology Diagnoses None to low serum cortisol response with adrenocorticotrophic hormone (ACTH) stimulation test Richard Edgar MD [address] [place] [id number] Phone: tel: fax: [facility] [address] [place] [phone] Phone: tel: fax: Referral ID Status Reason Start Date Expiration Date Visits Requested Visits Authorized [id number] Authorized Specialty Services Required 11/03/2023 05/04/2025 1 1 Encounter Details Date Type Department Care Team (Latest Contact Info) Description 11/03/2023 Community [facility] [address] [place] [phone] Richard Edgar MD [address] [place] [id number] None to low serum cortisol response with adrenocorticotrophic hormone (ACTH) stimulation test (Primary Dx) Social History Tobacco Use Types Packs/Day Years Used Date Smoking Tobacco: Every Day Cigarettes 2 49.8 Started: 05/19/1975 Passive Smoke Exposure: Current Smokeless [...] drink first t yung in the morning ([employer]) to 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 or to get [...] documented as of this encounter Care Teams Bank Reconciliator Relationship Specialty Start Date End Date Richard Edgar MD PCP - General 09/29/20 documented as of this encounter
--- OUTSIDE RECORDS SUMMARY | 2025-03-04 11:03 | XMS_ITS | Clinical Summary ---
Author Organization [facility] Address [address] [place] [address] Care Team Providers Care Tinware Lithograph Press Operator Name Role Phone Richard Edgar MD Primary Care Provider [phone] Allergies Active Allergy Reactions Criticality Noted Date [...] 2 (two) times a day. Active pancrelipase, Qeg-Trrj-Oetq, (Creon) [address]20-[address] units capsule See administration instructions. Take two [...] times a day. 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) to 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 or to get [...] Health Maintenance Due Date Last Done Comments [facility]-/Child/Adol SDOH Screenings 1965 [id number] Vaccine (#1) 1970 [facility]- SDOH Screenings 1983 [facility]-Adult SDOH Screenings 1983 [facility]-DTaP,Tdap,and Td Vaccines (1 - Tdap) 1984 [facility]-Hepatitis A Vaccines (1 of 2 - Risk 2-dose series) 1984 [facility]-Hepatitis B Vaccines (1 of 3 - 19+ 3-dose series) 1984 CT Colonography 2010 Colonoscopy 2010 FIT-DNA 2010 FIT 2010 FOBT 2010 Sigmoidoscopy 2010 [facility]-Colorectal Cancer Screening 2010 [facility]-Zoster Vaccines (1 of 2) 2015 [facility]-Lung Cancer Screening 04/28/20212019, 05/02/2016, 04/02/2016, Additional history exists [facility]-Depression Screening 01/10/2024 01/09/2023 [facility]-Influenza Vaccine (#1) 2025 03/04/2022, [facility]-Pneumococcal Vaccine: 50+ Years (3 of 3 - PCV20 or PCV21) 09/14/2026 09/14/2021, 03/06/2016, 03/05/2016 [facility]-Diabetes: Hemoglobin A1C Discontinued 03/06/2021 [facility]-HIV Screening [...] this topic Medical Devices Implanted Type Area Riprap Worker Device Identifier Shelf Expiration Date Model / Serial / Lot [place] 18 - [id number] Implanted:Qty: 1 on 09/17/2021 at [facility] Covidien [id number] 05/22/2024 105-71 00-06 0 / / [id number] Description:Implanted by Dr Juan Ramon Ta Vip Vascular Closure Device 6 Fr - [id number] Implanted:Qty: 1 on 09/17/2021 at [facility] [id number] 06/18/2022 [id number] / / [id number] Description:Deployed by Dr Nanci Ta Procedures Procedure [...] Antibody Negative Negative 10/07/2023 1:37 PM EDT [facility] Blood Venous blood specimen / Unknown Venipuncture / Unknown 10/07/2023 12:32 PM EDT 10/07/2023 12:47 PM EDT us Melchor Estrada MD LAB BLOOD ORDERABLES Final Resu lt [facility] [address] [place] [address] * HIV 1 & 2 Antibody/Antigen Screen (06/13/2022 5:58 PM EST) HIV 1 & 2 Antibody/Anti gen Screen Nonreactive Nonreactive 06/13/2022 7:11 PM EST [facility]ALTH[facility] Blood Venous blood specimen / Unknown Venipuncture / Unknown 06/13/2022 5:58 PM EST 06/13/2022 6:09 PM EST Norah Mathew DO LAB BLOOD ORDERABLES Final Re sult Performing Organization Address [facility] Co de Phone Number HEALTHCARE [facility] [address] [place] [address] * Hemoglobin A1c (03/06/2021 2:26 PM EDT) [...] Adults <6.0% Children and Adolescents <7.5% Source: [place] [employer]. Standards of medical care in diabetes,2017. Diabetes Care.2017:40 (suppl 1):S1-S135. HbA1c assay performed by an ion-exchange chromatography method that is certified traceable to the DCCT. Teresa Banerjee MD LAB BLOOD ORDERABLES Final Resul t Performing Organization Address [facility] Co de Phone Number [facility] [address] [place] [address] from Last 3 Months or Most Recently Relevant to Health Maintenance Insurance [facility] MEDICAID Advance Directives * Full Code (Latest [...] Patient has decision-making capacity? Yes Care Teams Tinware Lithograph Press Operator Relationship Specialty Start Date End Date Richard Edgar MD PCP - General 09/29/20
--- OUTSIDE RECORDS SUMMARY | 2025-03-04 11:03 | XMS_ITS | Clinical Summary ---
Author Organization [facility] Lanier T Address [address] [place] [address] Phone Care Team Providers Care Prior Authorization Nurse Name Role Phone Unavailable Primary Care Provider [...] 01/24/2022 12:52 PM EDT Plan of Treatment Upcoming Encounters Date Type Department Care Team (Late st Contact Info) Description 09/05/2025 1:15 PM EDT Office Visit [facility] Dermatology [facility] [address] [address] Shaan Reddy MD [address] [place] [address] Health Maintenance Due Date Last Done Comments Annual Wellness Exam 1968 Hepatitis C Screening 1983 DTaP/TDaP/Td (1 - Tdap) 1984 Hepatitis B Vaccine (1 of 3 - 19+ 3-dose series) 1984 Cologuard 2010 Colon Cancer Screening 2010 Colonoscopy 2010 FIT 2010 Sigmoidoscopy 2010 Virtual Colonography 2010 Zoster (1 of 2) 2015 COVID-19 Vaccine (1 - 2024-2 6 season) 2025 Influenza Vaccine (#1) 2025 02/24/2020 Pneumococcal Vaccine 50+ (3 of 3 - PCV20 or PCV21) 09/14/2026 09/14/2021, 03/06/2016, 03/05/2016 Meningococcal B Vaccine Aged Out No l onger eligible based on patient's age to complete this topic Insurance [employer] [facility] [place] [id number] MDR [facility] [facility] [place] [id number] MDR [facility] [id number] MDR
--- OUTSIDE RECORDS SUMMARY | 2025-03-04 11:03 | XMS_ITS | Clinical Summary ---
Author Organization [facility] Address [address] [place] [address] Care Team Providers Care Speech And Hearing Director Name Role Phone Richard Edgar MD Primary Care Provider [phone] Social History Tobacco Use Types Packs/Day Years [...] 1984 Zoster Vaccines (1 of 2) 2015 Depression Risk Screening 05/19/2024 SDOH Screening 05/19/2024 COVID-19 Vaccine (1 - 2023-2 5 season) 2025 Influenza Vaccine (#1) 2025 2, 02/24/2020 HIB [...] patient's age to complete this topic Insurance ID MEDICAID [employer] Care Teams Speech And Hearing Director Relationship Specialty [place] [address] [place] [id number] PCP - General Family Medicine 07/20/20
--- OUTSIDE RECORDS SUMMARY | 2025-03-04 11:03 | XMS_ITS | CCD ---
Author Name Interface, [id number] lity Address [address] [id number] Organization [facility] Address [address] [place] [address] Care Team Providers Care Fourth Grade Teacher Name Role Phone Jennifer CHIRINOS, Bill Brar Unavailable Unavailable Allergies and Adverse Reactions Medication/Group Name Reaction Severity Date SULFAMETHOXAZOLE-TRIMETHOPRIM 12/30/2017 Reason for Visit EMAIL SENT/NOTED CB Mental Status Date Value 02/04/2017 Normal concentration 02/04/2017 Memory function norm al 02/04/2017 Mentally alert 02/04/2017 Oriented to person t cristopher and place Functional Status Date Name/Question Score/Answer 05/20/2017 ECOG performance status - grade 0 0 06/17/2017 ECOG performance status - grade 0 0 06/24/2017 ECOG performance status - grade 0 0 07/08/2017 ECOG performance status - grade 0 0 08/19/2017 ECOG performance status - grade 0 0 02/04/2017 ECOG performance status - grade 1 1 07/01/2017 ECOG performance status - grade 0 0 07/29/2017 ECOG performance status - grade 0 0 08/05/2017 ECOG performance status - grade 0 0 10/24/2016 ECOG performance status - grade 1 1 02/25/2017 ECOG performance status - grade 1 1 12/30/2017 ECOG performance status - grade 1 1 09/09/2017 ECOG performance status - grade 0 0 12/23/2017 ECOG performance status - grade 2 2 12/16/2017 ECOG performance status - grade 0 0 04/08/2017 ECOG performance status - grade 0 0 09/02/2017 ECOG performance status - grade 0 0 Medications Date Name Route Dose Frequency Instructions Start Date End Date Status Fill Status Indication 12/16 Levetir acetam Oral (Keppra ) orally 250.0 mg 2 times per day active 12/16 Potassi um Chlorid e Oral ER Tab orally 1.0 tablet extend ed releas e every day quantity sufficient for 3 days; 1 refills active 06/24 Prednis olone Oral Liquid orally 20.0 every 12 hours for 5 days active 02/04 Oxycodo ne-Acet aminoph en Oral 10 mg-325 mg Oral 1.0 1 Once every 6 Hours 2016 stopped 02/04 Oxycodo ne-Acet aminoph en Oral 10 mg-325 mg Oral 1.0 1 Once every 6 Hours 2016 active 02/04 Ondanse jesus Oral Oral 8.0 1 Once every 8 Hours 2016 active 02/04 Ondanse jesus Oral Oral 8.0 1 Once every 8 Hours 2016 stopped 02/04 Prochlo rperazi ne Oral Oral 10.0 [...] Jaundice Active Social History Date Name Value 10/07/2016 Sex Male
--- OUTSIDE RECORDS SUMMARY | 2025-03-04 11:04 | XMS_ITS | Clinical Summary ---
Author Organization [facility] Address [address] [place] [address] Care Team Providers Care Connie Cleaner Name Role Phone Richard Edgar MD Primary Care Provider [phone] Allergies Active Allergy Reactions Criticality Noted Date [...] Date Smoking Tobacco: Every Day Cigarettes 4 49.8 Started: 05/28/1975 Smokeless Tobacco: Never Tobacco Cessation:Ready [...] Plan of Treatment [place] [address] [facility] Advance Directives For more information, please contact: [phone] Documents on File Type Date Recorded Patient Floral Artist Expl anation Advance Directives and Living Will 05/03/2020 9:46 AM [facility] POWER OF SURVEY RESEARCHER * Full Code (Latest Code Status on File) Date Activated Date Inactivated Comments 04/28/2020 12:20 AM No automated chest compression devices for VAD Patients Care Teams Connie Cleaner Relationship Specialty [place] [address] [place] [address] PCP - General Family Medicine 04/27/20
--- OUTSIDE RECORDS SUMMARY | 2025-03-04 11:04 | XMS_ITS ---
Author Name Interface, [id number] lity Address [address] [phone] Organization [facility] Address [address] [place] [address] Allergies and Adverse Reactions Medication/Group Name Reaction [...] APPOINTMENT 3 WK MACI + [place] 07/29/2017 LAB_ORDER CBC w/ auto diff 07/29/2017 LAB_ORDER CMP 08/05/2017 LAB_ORDER CBC w/ auto diff 08/19/2017 LAB_ORDER CBC w/ auto diff 08/19/2017 LAB_ORDER CMP 09/02/2017 LAB_ORDER CBC w/ auto diff 09/02/[address] LAB_[address] chest/abdomen /pelvis w/ contrast 09/09/2017 LAB_ORDER CMP 09/09/2017 LAB_ORDER CBC w/ auto diff 12/05/2017 LAB_[address] chest/abdomen /pelvis w/ contrast 12/16/2017 LAB_ORDER CBC w/ auto diff 12/16/2017 [...] Lab Address 07/29 Lab Repor t See victorian literature professor d 08/05 Lab Repor t See victorian literature professor d 08/19 Lab Repor t See victorian literature professor d 09/02 Lab Repor t See victorian literature professor d 09/03 CT CHEST ABDOM EN PELVI [...] c atheros clerosi s.Inter preted by:Dao Snider d by:Arik marcelo, 09/03/ 18Final resultC onfiden tial Patient Informa tion Accompa nied are [facility] l results that are being deliver ed by [facility].I f you receive a clinica l result for a patient that is not yours please fax to [facility] at . FINAL Maddison Harrison 09/09 Lab Repor t See victorian literature professor d 12/16 Lab Repor t See victorian literature professor d 12/23 Lab Repor t See victorian literature professor d 12/30 Lab Repor t See victorian literature professor d 12/30 Lab Repor t See victorian literature professor d 12/31 Lab Repor t See victorian literature professor d 01/07 Lab Repor t See victorian literature professor d Medications Date Name Route Dose Frequency Instructions Start Date End Date Status Fill Status Indication 12/16 Levetir acetam Oral (Keppra ) orally 250.0 mg 2 times per day active 06/24 Prednis olone Oral Liquid orally 20.0 every 12 hours for 5 days active 12/16 Potassi um Chlorid e Oral [...] Active Vital Signs Date Type Value 07/29/2017 Pain Scale 0.00 07/29/2017 Weight 174.30 07/29/2017 Height 66.00 07/29/2017 BMI 28.13 07/29/2017 BSA 1.92 07/29/2017 Heart Beat 108.00 07/29/2017 Body Temperature 98.70 07/29/2017 Intravascular Systolic 122 07/29/2017 Intravascular Diastolic 72 07/29/2017 Respiratory Rate 16.00 08/05/2017 Respiratory Rate 16.00 08/05/2017 Heart Beat 104.00 08/05/2017 Body Temperature 98.70 08/05/2017 Intravascular Systolic 126 08/05/2017 Intravascular Diastolic 76 08/05/2017 Pain Scale 0.00 08/05/2017 BSA 1.91 08/05/2017 BMI 27.95 08/05/2017 Height 66.00 08/05/2017 Weight 173.20 08/19/2017 BMI 28.71 08/19/2017 Height 66.00 08/19/2017 Weight 177.90 08/19/2017 Pain Scale 0.00 08/19/2017 BSA 1.94 08/19/2017 Body Temperature 98.00 08/19/2017 Heart Beat 108.00 08/19/2017 Respiratory Rate 16.00 08/19/2017 Intravascular Systolic 124 08/19/2017 Intravascular Diastolic 70 09/02/2017 Intravascular Systolic 118 09/02/2017 Intravascular Diastolic 60 09/02/2017 Body Temperature 98.00 09/02/2017 Heart Beat 120.00 09/02/2017 Respiratory Rate 14.00 09/02/2017 Pain Scale 0.00 09/02/2017 Weight 177.80 09/02/2017 Height 66.00 09/02/2017 BMI 28.70 09/02/2017 BSA 1.94 09/09/2017 Intravascular Systolic 118 09/09/2017 Intravascular Diastolic 74 09/09/2017 Body Temperature 98.00 09/09/2017 Heart Beat 102.00 09/09/2017 Respiratory Rate 16.00 09/09/2017 BSA 1.94 09/09/2017 Weight 178.60 09/09/2017 Height 66.00 09/09/2017 BMI 28.83 09/09/2017 Pain Scale 0.00 12/16/2017 BMI 25.86 12/16/2017 Height 66.00 12/16/2017 Weight 160.20 12/16/2017 Pain Scale 0.00 12/16/2017 Intravascular Systolic 120 12/16/2017 Intravascular Diastolic 86 12/16/2017 Respiratory Rate 14.00 12/16/2017 Heart Beat 128.00 12/16/2017 Body Temperature 97.60 12/16/2017 BSA 1.84 12/23/2017 Height 66.00 12/23/2017 Weight 163.00 12/23/2017 Pain Scale 0.00 12/23/2017 Intravascular Systolic 136 12/23/2017 Intravascular Diastolic 90 12/23/2017 BSA 1.86 12/23/2017 Respiratory Rate 18.00 12/23/2017 Heart Beat 119.00 12/23/2017 Body Temperature 98.00 12/23/2017 BMI 26.31 12/30/2017 Intravascular Systolic 134 12/30/2017 Intravascular Diastolic 80 12/30/2017 Body Temperature 98.10 12/30/2017 Heart Beat 122.00 12/30/2017 Respiratory Rate 18.00 12/30/2017 BSA 1.85 12/30/2017 Weight 162.30 12/30/2017 Height 66.00 12/30/2017 BMI 26.20 12/30/2017 Pain Scale 0.00 Notes Section * Nurse Note for: 30-DEC-17 [facility] Nurse Note Print Location: Unknown Date/Time Printed: 03/04/2025 11:03 ([facility]) Patient: LYN JAIME Sex: Male [...] mg Amount in mL: 8 Pharmacy dispense: [facility]: [id number] Dispense/Waste: 200/0 mg Given Dose/Discard: 200/0 mg [...] mg Amount in mL: 1.7 Pharmacy dispense: [facility]: [id number] Dispense/Waste: 120/0 mg Given Dose/Discard: 120/0 mg Time: 10:35, Entered By: Jayashree Bauer RN Checked By: Kayli Humphries RN on 12/30/2017 14:06 Free Text Note : 5 rights [id number] - PIV started in left wrist. CBC and CMP drawn. 0935 - Keytruda infusing via pump, + blood [id number] - Xgeva given sub cut into right [...] Print Location: Unknown Date/Time Printed: 03/04/2025 11:03 ([facility]) Patient: LYN JAIME Sex: Male [...] mg Amount in mL: 8 Pharmacy dispense: [facility]: [id number] Dispense/Waste: 200/0 mg Given Dose/Discard: 200/0 mg Start Time: 11:50, Entered By: Kayli Humphries RN, Stop Time: 12:20, Entered By: Kayli Humphries RN Admix Fluid: 0.9 % sodium chloride, Admix Fluid Volume: 100mL, Total Volume: 108mL Checked By: Marily Andrade RN on 09/09/2017 15:42 * Nurse Note for: 02-SEP-17 [facility] Nurse Note Print Location: Unknown Date/Time Printed: 03/04/2025 11:03 ([place] Patient: LYN JAIME Sex: Male : 1965 [...] mg Amount in mL: 1.7 Pharmacy dispense: [facility]: [id number] Dispense/Waste: 120/0 mg Given Dose/Discard: 120/0 mg [...] Print Location: Unknown Date/Time Printed: 03/04/2025 11:03 ([facility]) Patient: LYN JAIME Sex: Male [...] mg Amount in mL: 8 Pharmacy dispense: [facility]: [id number] Dispense/Waste: 200/0 mg Given Dose/Discard: 200/0 mg Start Time: 10:57, Entered By: Kayli Humphries RN, Stop Time: 11:21, Entered By: Kayli Humphries RN Admix Fluid: 0.9 % sodium chloride, Admix Fluid Volume: 100mL, Total Volume: 108mL Checked By: Jayashree Bauer RN on 08/19/2017 12:04 * Nurse Note for: 05-AUG-17 [facility] Nurse Note Print Location: Unknown Date/Time Printed: 03/04/2025 11:03 ([facility]) Patient: LYN JAIME Sex: Male [...] mg Amount in mL: 1.7 Pharmacy dispense: [facility]: [id number] Dispense/Waste: 120/0 mg Given Dose/Discard: 120/0 mg Time: 13:45 Checked By: Jayashree Bauer RN on 08/05/2017 16:40 * Nurse Note for: 29-JUL-17 [facility] Nurse Note Print Location: Unknown Date/Time Printed: 03/04/2025 11:03 ([facility]) Patient: LYN JAIME Sex: Male [...] mg Amount in mL: 8 Pharmacy dispense: [facility]: [id number] Dispense/Waste: 200/0 mg Given Dose/Discard: 200/0 mg [...]
--- OUTSIDE RECORDS SUMMARY | 2025-03-04 11:04 | XMS_ITS | Encounter Summary ---
Author Organization [facility] Address [address] [place] [address] Care Team Providers Care Surgical Scrub Tech Name Role Phone Richard Edgar MD Primary Care Provider [phone] Reason for Referral * Consultation (Routine) - Closed Specialty Diagnoses / Procedures Referred By Contac t Referred To Contact Gastroenterology Diagnoses Pseudocyst of pancreas Richard Edgar MD Phone: tel: fax: Marcel Juarez MD [address] [facility] [address] [place] [address] Phone: tel: fax: Referral ID Status Reason Start Date Expiration Date V isits Requested Visits Authorized [id number] Closed Specialty Services Required 03/01/2021 08/31/2022 1 1 Encounter Details Date Type Department Care Team (Late st Contact Info) Description 03/01/2021 Community [facility] [address] [place] [address] Richard Edgar MD [address] [place] [address] Pseudocyst of pancreas (Primary Dx) Social History [...] Primary documented in this encounter Care Teams Surgical Scrub Tech Relationship Specialty Start Date End Date Richard Edgar MD PCP - General 09/29/20 documented as of this encounter
--- OUTSIDE RECORDS SUMMARY | 2025-03-04 11:04 | XMS_ITS ---
Author Organization [facility] Address [address] [place] [address] Care Team Providers Care Educational Aid Name Role Phone Marlyn Quintero MD, Pantera [facility] Active Problems Problem Noted Date Diagnosed [...]
--- OUTSIDE RECORDS SUMMARY | 2025-03-04 11:04 | XMS_ITS | Clinical Summary ---
Author Organization [facility] Address [address] [place] [address] Care Team Providers Care Single Wire Saw Operator Name Role Phone Unknown, Attending Provider Primary [...] therelease of HIV test results or diagnoses. [id number] Allergies Active Allergy Reactions Criticality Noted [...] Cancer Screening 2015 Immunization: COVID-19 ( season) 2025 Immunization: Influenza (MyC hernández) (#1) 01/17/2025 03/04/2022, 02/24/2020 Immunization: Pneumococcal ( 3 of 3 - PCV20 or PCV21) 09/14/2026 09/14/2021, 03/06/2016, 03/05/2016 Insurance [facility] care Address: [facility] [address] [place] [address] [place] [id number] Care Teams Single Wire Saw Operator Relationship Specialty Start Date End Date Unknown, Attending Provider PCP - General 11/05/22
--- OUTSIDE RECORDS SUMMARY | 2025-03-04 11:04 | XMS_ITS ---
Author Name Interface, [id number] lity Address [address] [id number] Organization [facility] Address [address] [place], [place] [address] Allergies and Adverse Reactions Medication/Group Name Reaction Severity Date SULFAMETHOXAZOLE-TRIMETHOPRIM 12/30/2017 Plan Date Type Value 08/16/2020 APPOINTMENT EMAIL SENT/NOTED CB 01/20/2018 APPOINTMENT MACI+TX 01/20/2018 APPOINTMENT MACI+TX 01/20/2018 APPOINTMENT MACI+TX 12/30/2017 APPOINTMENT TX ONLY 12/30/2017 APPOINTMENT TX ONLY 12/23/2017 APPOINTMENT scan results 12/23/2017 APPOINTMENT scan results 12/23/2017 LAB_ORDER CMP 12/23/2017 LAB_ORDER CBC w/ [...] Lab Address 12/23 Lab Repor t See drainage design coordinator d 12/30 Lab Repor t See drainage design coordinator d 12/30 Lab Repor t See drainage design coordinator d 12/31 Lab Repor t See drainage design coordinator d 01/07 Lab Repor t See drainage design coordinator d Medications Date Name Route Dose Frequency [...] Print Location: Unknown Date/Time Printed: 03/04/2025 11:03 ([facility]) Patient: LYN JAIME Sex: Male : 1965 [...] mg Amount in mL: 8 Pharmacy dispense: [facility]: [id number] Dispense/Waste: 200/0 mg Given Dose/Discard: 200/0 mg [...] mg Amount in mL: 1.7 Pharmacy dispense: [facility]: [id number] Dispense/Waste: 120/0 mg Given Dose/Discard: 120/0 mg Time: 10:35, Entered By: Jayashree Bauer RN Checked By: Kayli Humphries RN on 12/30/2017 14:06 Free Text Note : 5 rights [id number] - PIV started in left wrist. CBC and CMP drawn. 0935 - Keytruda infusing via pump, + blood [id number] - Xgeva given sub cut into right arm. Site clear. Bandaid applied to site.1059 - Keytruda infused. PIV flushed with NS + blood return. PIV dc'd and pressure dsg applied to site. Pt ambulated out of tx center without difficulty with mother. Entered By Jayashree Bauer RN on 14:05
[2025-03-04 11:12] VITALS: BMI 21.7
[2025-03-04 11:16] LABS: Adenovirus,PCR Not Detected (NotDetected); Chlamydophila Pneumoniae, PCR Not Detected (NotDetected); Coronavirus 19, PCR Not Detected (NotDetected); Coronovirus HKU1,PCR Not Detected (NotDetected); Influenza A, PCR Not Detected (NotDetected); Influenza AH1, 2009 Not Detected (NotDetected); Influenza AH1, PCR Not Detected (NotDetected); Influenza AH3,PCR Not Detected (NotDetected); Influenza B, PCR Not Detected (NotDetected); Mycoplasma Pneumoniae, PCR Not Detected (NotDetected); Parainfluenza 1, PCR Not Detected (NotDetected); Parainfluenza 2, PCR Not Detected (NotDetected); Parainfluenza 3, PCR Not Detected (NotDetected); Parainfluenza 4, PCR Not Detected (NotDetected)
[2025-03-04 11:18] LABS: Hematocrit 40.4 % (42.0-52.0); Hemoglobin 14.4 g/dL (14.1-18.0); Immature Granulocytes % 0.3 %; Mean Corpuscular HGB Conc 35.6 g/dL (31.8-35.4); Mean Corpuscular Hemoglobin 32.7 pg (27.0-31.2); Mean Corpuscular Volume 91.8 fl (80-94); Nucleated Red Blood Cells % 0 %; Platelet Count 187 K/mm3 (142-424); Red Blood Count 4.40 M/mm3 (4.60-6.20); Red Cell Distribution Width-SD 42.0 fL; White Blood Count 6.5 K/mm3 (4.8-10.8)
[2025-03-04 11:23] LABS: Lactate Venous 1.3 mmol/L (0.4-2.0); VBG HCO3 24.5 mmol/L (23-30); VBG PCO2 43.2 mmol/L (35-51); VBG PH 7.37 mmol/L (7.31-7.41); VBG PO2 54.2 mmol/L (28-40)
--- NOTE | 2025-03-04 11:23 | XR_ITS ---
FINAL REPORT CLINICAL HISTORY: Shortness of breath/cough COMPARISON: 12/27/2024 FINDINGS: A portable view of the chest was obtained. Cardiac and mediastinal silhouettes are within normal limits. The lungs are clear. There is no pleural effusion or pneumothorax. IMPRESSION: No acute process on this portable exam. Reviewed, Interpreted and Dictated by Jaymie Marshall MD Transcribed by Eliana Ocampo Authenticated and [facility]
[2025-03-04 11:30] VITALS: BP 116/60; PULSE 83; RESP 25; O2SAT 98
--- NOTE | 2025-03-04 11:44 | CT_ITS ---
FINAL REPORT TECHNIQUE: Axial imaging of the chest is obtained after the administration of contrast. 3-D MIP reformatted images were also obtained and reviewed per PE protocol. CLINICAL HISTORY: prev SCC lung, sob COMPARISON: 05/20/2024 FINDINGS: The pulmonary arteries are well filled. There is no evidence of pulmonary embolus. There is no aortic dissection. Heart size is normal. There is no mediastinal, hilar, or axillary lymphadenopathy. Posterior left upper lobe nodule has increased in size now measuring 13 mm in greatest axial dimension. There is no pleural or pericardial effusion. Limited evaluation of the upper abdomen shows pancreatic calcifications consistent with chronic pancreatitis. There is stable abnormal attenuation along the anterior left pararenal fascia. No acute findings. No acute osseous abnormality. IMPRESSION: No evidence of pulmonary embolism or aortic dissection. Interval increase in size left upper lobe pulmonary nodule. Recurrent or metastatic disease not excluded. Recommend PET-CT for further evaluation. Reviewed, Interpreted and Dictated by Jaymie Marshall MD Transcribed by Eliana Ocampo Authenticated and . [facility]
--- NOTE | 2025-03-04 11:51 | HMH.EDCP ---
Discharge Plan Disposition Patient Disposition: Home, Self-Care Prescriptions Prescriptions: New prednisone 50 mg tablet 50 mg PO DAILY 4 Days Qty: 4 0RF Rx Instructions: First dose on 03-05-2025 azithromycin 250 mg tablet See Rx Instructions .ROUTE .COMPLEX Qty: 6 0RF Rx Instructions: For 250 mg dose pack: take 500 mg today (day 1), then 250 mg for 4 days (days 2-5) Trelegy Ellipta 100-62.5-25 mcg blister with device 1 inh inhalation DAILY Qty: 60 0RF No Action folic acid 1 mg tablet 1 mg PO DAILY Qty: 100 10RF albuterol sulfate 90 mcg/actuation aero powdr breath act w/sensor 1 inh IH Q4HP PRN (Reason: Shortness Of Breath) Qty: 1 12RF thiamine HCl (vitamin B1) 100 mg tablet 100 mg PO DAILY Qty: 100 10RF doxycycline hyclate 100 mg tablet 100 mg PO BID Qty: 20 0RF guaifenesin 200 mg/5 mL liquid 400 mg PO Q6H PRN (Reason: congestion) Qty: 118 0RF trazodone 100 mg tablet 100 mg PO DAILY Qty: 90 3RF permethrin [Elimite] 5 % cream 1 applic topical ONCE Qty: 60 1RF Rx Instructions: apply to entire body surface from neck down let soak in for 12 hours then shower off repeat in 5 days if needed naltrexone 50 mg tablet 50 mg PO DAILY Qty: 30 1RF levetiracetam 500 mg tablet 500 mg PO BID Qty: 180 2RF hydroxyzine pamoate [Vistaril] 25 mg capsule 25 mg PO TID PRN (Reason: itching) Qty: 60 0RF sertraline 50 mg tablet 50 mg PO DAILY Qty: 90 1RF ascorbic acid (vitamin C) 250 mg tablet 250 mg PO DAILY Qty: 100 10RF spxyms-isdyrwpq-amewgeb (pork) 36,000-114,000- 180,000 unit capsule,delayed release(DR/EC) 2 cap PO BIDWMEAL Qty: 360 12RF lorazepam 2 mg tablet 2 mg PO BIDP PRN (Reason: Anxiety) Qty: 60 0RF sucralfate [Carafate] 1 gram tablet 1 g PO BID fluticasone propionate [Flonase Allergy Relief] 50 mcg/actuation spray,suspension 2 spray intranasal BID Rx Instructions: administer into each nostril Trelegy Ellipta 100-62.5-25 mcg Blister With Device 1 inh inhalation DAILY 30 Days Qty: 60 0RF ipratropium-albuterol 0.5 mg-3 mg(2.5 mg base)/3 mL Solution For Nebulization 3 ml inhalation Q6HP PRN (Reason: Shortness Of Breath) 30 Days Qty: 180 5RF pantoprazole 40 mg tablet,delayed release (DR/EC) 40 mg PO DAILY docusate sodium 100 mg capsule 100 mg PO BID melatonin 5 mg tablet 10 mg PO HS PRN (Reason: Sleep) Patient Comments: TAKE 2 TABLETS BY MOUTH ONCE A DAY NEEDED Referrals Follow up/Referrals: Richard Edgar MD [Primary Care Provider, Family Practice] - See instructions Activity Restrictions/Add. Instructions Additional Instructions/Restrictions: At this time it was felt you are safe to be discharged home. If new or worsening symptoms please do not hesitate to return the emergency department. Please use your breathing machine as needed, please take your steroids and azithromycin as prescribed. Please take your Symbicort as prescribed (I changed it from Trelegy due to insurance coverage) and follow-up with your family doctor early next week to make sure things are headed in the right direction and have prolonged prescription of your Symbicort. Clinical Impressions Clinical Impression: Acute exacerbation of chronic obstructive pulmonary disease, Rhinovirus infection, Pulmonary nodule Print Language Print Language: Georgian Discharge ED Provider: Rafat Salazar HPI General Chief Complaint: Shortness of Breath/Dyspnea Stated Complaint: Cough, SOA Time Seen by Provider: 03/04/25 11:13 Mode of Arrival: Ambulatory Source of Information: Patient Description of Symptoms (Recalled from ER Triage Doc. 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 Patient has been shortness of breath and cough for the last few weeks with productive sputum. Patient does not wear oxygen at home. Due to persistent symptoms he presents here for continued evaluation. Related Data Home Medications ?Medication ?Instructions ?Recorded ?Confirmed fluticasone propionate 50 2 spray intranasal BID 04/14/24 02/24/25 mcg/actuation nasal spray,suspension (Flonase Allergy Relief) sucralfate 1 gram tablet (Carafate) 1 g PO BID 04/14/24 02/24/25 docusate sodium 100 mg capsule 100 mg PO BID 10/19/24 02/24/25 melatonin 5 mg tablet 10 mg PO HS PRN Sleep 10/19/24 02/24/25 pantoprazole 40 mg tablet,delayed 40 mg PO DAILY 10/19/24 02/24/25 release Previous Rx's ?Medication ?Instructions ?Recorded folic acid 1 mg tablet 1 mg PO DAILY #100 tabs 12/01/23 albuterol sulfate 90 mcg/actuation 1 inh inhalation Q4HP PRN 02/12/24 breath activated powder Shortness Of Breath #1 ea inhaler,sensor ascorbic acid (vitamin C) 250 mg 250 mg PO DAILY #100 tabs 05/07/24 tablet fluticasone fur. 100 mcg-umeclid 1 inh inhalation DAILY 30 days #60 07/18/24 62.5 mcg-vilant 25 mcg ea inhalat.powder (Trelegy Ellipta) mwcmjq-wxwgprpp-sfzyzrc 2 cap PO BIDWMEAL #360 caps 07/28/24 (pork)36,000-114,000-180k unit capsule,del rel ipratropium 0.5 mg-albuterol 3 mg 3 ml inhalation Q6HP PRN Shortness 09/21/24 (2.5 mg base)/3 mL nebulization Of Breath 30 days #180 mL soln thiamine HCl (vitamin B1) 100 mg 100 mg PO DAILY #100 tabs 10/04/24 tablet doxycycline hyclate 100 mg tablet 100 mg PO BID #20 tabs 02/23/25 guaifenesin 200 mg/5 mL oral liquid 400 mg (10 mL) PO Q6H PRN 02/23/25 congestion #118 mL hydroxyzine pamoate 25 mg capsule 25 mg PO TID PRN itching #60 caps 02/24/25 (Vistaril) levetiracetam 500 mg tablet 500 mg PO BID #180 tabs 02/24/25 naltrexone 50 mg tablet 50 mg PO DAILY #30 tabs 02/24/25 permethrin 5 % topical cream 1 applic topical ONCE 2 doses #60 02/24/25 (Elimite) grams sertraline 50 mg tablet 50 mg PO DAILY #90 tabs 02/24/25 trazodone 100 mg tablet 100 mg PO DAILY #90 tabs 02/24/25 lorazepam 2 mg tablet 2 mg PO BIDP PRN Anxiety #60 tabs 02/28/25 azithromycin 250 mg tablet See Rx Instructions PO .COMPLEX 03/04/25 copd exacerbation #6 tabs fluticasone fur. 100 mcg-umeclid 1 inh inhalation DAILY COPD #60 ea 03/04/25 62.5 mcg-vilant 25 mcg inhalat.powder (Trelegy Ellipta) prednisone 50 mg tablet 50 mg PO DAILY copd exacerbation 4 03/04/25 days #4 tabs Allergies Allergy/AdvReac Type Severity Reaction Status Date / Time cephalexin (From Keflex) Allergy Mild Hives Verified 02/24/25 11:02 sulfamethoxazole (From Allergy Unknown Hives Verified 02/24/25 11:02 BACTRIM) trimethoprim (From BACTRIM) Allergy Unknown Hives Verified 02/24/25 11:02 PFSH [facility] Disclaimer: The information contained in this section may have been updated after the patient was seen, as this information can be updated by other users. Medical History (Updated 03/04/25 @ 14:14 by Rafat Salazar MD) Anxiety Alcohol abuse Abdominal pain, chronic, epigastric Substance use disorder Closed fracture of head of left ulna Hyponatremia Chronic pain Chronic pancreatitis Piloerection Paresthesias Nausea, vomiting, and diarrhea Periumbilical abdominal pain Cough Lung nodule Acute on chronic pancreatitis Acute on chronic pancreatitis Hypochloremia Hearing loss Pancreatic pseudocyst Chronic alcohol abuse Bipolar 1 disorder Seizures Abdominal aneurysm Excessive cerumen in left ear canal SBO (small bowel obstruction) Acute pancreatitis Cachexia Acute on chronic pancreatitis Gastrostomy tube dependent Metastatic non-small cell lung cancer Severe protein-calorie malnutrition Lung cancer metastatic to bone Abdominal pain Pancreatic pseudocyst Abdominal pain Bone marrow disorder Cirrhosis COPD (chronic obstructive pulmonary disease) GERD (gastroesophageal reflux disease) Gastric outlet obstruction History of lung cancer Pancreatic pseudocyst Alcoholic pancreatitis History of lung cancer Pancreatitis, acute Gallstone pancreatitis Pancreatitis Hypokalemia Surgical History History of local excision of skin lesion History of aortic aneurysm repair History of cholecystectomy Hx of cholecystectomy Family History Other Cancer of lung Emphysema lung Social History Smoking Status: Current every day smoker tobacco type: cigarettes packs per day: 3 pack-years: 201 alcohol intake: former substance use type: denies use current occupational status: unemployed and disabled Travel in the last 8 weeks?: None household members: family housing: house current occupational exposures/hazards: No caffeine: No Have you lived/traveled outside US in past 30 days?: No Contact w/someone who lives/traveled outside US past 30 days?: No Exposure to someone with infectious disease in past 14 days?: No Do you have a fever (greater than 100.4 F or 38 C)?: No Have you tested positive for COVID-19?: No Exposed to someone with COVID-19 in past 14 days?: No Do you have a sore throat?: No Do you have a cough?: No Do you have any weakness?: No Do you have any diarrhea?: No Are you experiencing any unusual bleeding?: No Do you have any muscle aches/pain?: No Do you have any abdominal pain?: No Are you experiencing loss of taste or smell?: No Other Medical History Have you received the Flu Vaccine for this season: No Have you received the Pneumonia Vaccine: No ROS Obtained: Yes Systems reviewed as appropriate & no additional complaints except as documented Physical Exam General General appearance: alert and in no apparent distress Head Head exam: atraumatic and normocephalic Eye Eye exam: Present PERRL and EOMI ENT ENT exam: Present mucous membranes moist Neck Neck exam: Present normal inspection Chest Chest inspection: Present normal inspection and symmetric chest wall rise Respiratory Respiratory exam: Present wheezes (Bilateral) and prolonged expiratory phase; Absent normal lung sounds bilaterally or respiratory distress Cardiovascular Cardiovascular exam: Present regular rate and normal rhythm Abdominal Exam Abdominal exam: Present soft; Absent tenderness Extremities Exam Extremities exam: Present normal inspection Neurological Exam Neurological exam: Present alert Psychiatric Psychiatric exam: Present normal affect Skin Skin exam: Present warm and dry HEART Score HEART Score HEART Score assessment performed?: Yes History (anamnesis): Slightly suspicious ECG: Normal Age: 45-65 years Risk factors: 1-2 risk factors Troponin: </= normal limit HEART Score: 2 Critical Care Critical Care Time Critical Care Time: No Medical Decision Making Medhat Inquiry Pt receiving controlled substance: No Vital Signs Vital Signs: 03/04/25 11:00 03/04/25 11:30 03/04/25 12:01 Temperature 97.9 F Temperature Source Oral Pulse Rate 83 78 Pulse Rate [Right Radial] 97 H Respiratory Rate 18 25 H 15 Blood Pressure 116/60 121/78 Blood Pressure [Right Arm] 119/78 Blood Pressure Mean [Right Arm] 91 Blood Pressure Source Blood Pressure Source [Right Arm] Automatic Cuff Blood Pressure Position Blood Pressure Position [Right Arm] Supine 02 Sat by Pulse Oximetry 99 98 97 Oxygen Delivery Method Room Air 03/04/25 13:00 03/04/25 14:01 Temperature 98 F Temperature Source Oral Pulse Rate 99 H 58 L Pulse Rate [Right Radial] Respiratory Rate 24 16 Blood Pressure 121/76 138/99 H Blood Pressure [Right Arm] Blood Pressure Mean [Right Arm] Blood Pressure Source Automatic Cuff Blood Pressure Source [Right Arm] Blood Pressure Position Sitting Blood Pressure Position [Right Arm] 02 Sat by Pulse Oximetry 94 L Oxygen Delivery Method Room Air Lab Data Labs: Lab Results 03/04/25 11:10: WBC 6.5, RBC 4.40 L, Hgb 14.4, Hct 40.4 L, MCV 91.8, MCH 32.7 H, MCHC 35.6 H, RDW 12.4, Plt Count 187, MPV 10.3, Neut % (Auto) 62.0, Lymph % (Auto) 19.3, Russell % (Auto) 8.6, Eos % (Auto) 8.9, Baso % (Auto) 0.9, Neut # (Auto) 4.0, Lymph # (Auto) 1.3, Russell # (Auto) 0.6, Eos # (Auto) 0.6 H, Baso # (Auto) 0.1, Sodium 134 L, Potassium 4.3, Chloride 98, Carbon Dioxide 25, Anion Gap 15.3 H, BUN 12, Creatinine 0.80, Estimated Creat Clear 91, Estimated GFR 99, Est GFR ( Amer) 120, Glucose 129 H, Calcium 9.0, Total Bilirubin 0.4, AST 31, ALT 21, Alkaline Phosphatase 99, Troponin I < 0.01, Total Protein 7.3, Albumin 4.4, Globulin 2.9, Albumin/Globulin Ratio 1.5 03/04/25 11:11: Chlamy pneumoniae PCR Not detected, Adenovirus (PCR) Not detected, B. pertussis DNA (PCR) Not detected, Coronavirus OC43 (PCR) Not detected, Coronavirus HKU1 (PCR) Not detected, Coronavirus 229E (PCR) Not detected, SARS-CoV-2 (PCR) Not detected, Coronavirus NL63 (PCR) Not detected, Human Metapneumovir PCR Not detected, Influenza A (H1) PCR Not detected, Influ A (H1N1/09) PCR Not detected, Influenza A (H3) PCR Not detected, Influenza Type A (PCR) Not detected, Influenza Type B (PCR) Not detected, M. pneumoniae (PCR) Not detected, Parainfluenza 1 (PCR) Not detected, Parainfluenza 2 (PCR) Not detected, Parainfluenza 3 (PCR) Not detected, Parainfluenza 4 (PCR) Not detected, RSV (PCR) Not detected, Entero/Rhino (PCR) Detected A 03/04/25 11:19: VBG pH 7.37, VBG pCO2 43.2, VBG pO2 54.2 H, VBG HCO3 24.5, VBG Total CO2 25.8, VBG O2 Saturation 86.8 H, VBG Base Excess -0.8, VBG Lactic Acid 1.3 03/04/25 11:10 03/04/25 11:10 Response Orders (Tests/Meds): ED MEDICATIONS Discontinued Medications Generic Name Dose Route Start Last Admin Trade Name Freq PRN Reason Stop Dose Admin Albuterol/Ipratropium 9 ml 03/04/25 11:44 03/04/25 11:55 Ipratropium/Albuterol 3 Ml Neb IH 03/04/25 11:45 9 ml ONCE ONE Administration Magnesium Sulfate 2 gm in 50 mls @ 50 mls/hr 03/04/25 11:44 03/04/25 13:24 Magnesium Sulfate 2gm/50ml Premix IV 03/04/25 12:43 Infused ONCE ONE Infusion Doxycycline Hyclate 100 mg/ 250 mls @ 166.667 mls/hr 03/04/25 11:45 03/04/25 14:03 Sodium Chloride IV 03/04/25 11:46 Infused ONCE ONE Infusion Iopamidol 70 ml 03/04/25 12:36 03/04/25 12:37 Iopamidol-370 (76%);100ml Bottle IV 03/04/25 12:37 70 ml ONCE ONE Administration Methylprednisolone Sodium Succinate 125 mg 03/04/25 11:44 03/04/25 11:56 Methylprednisolone Sod Succ 125mg Vial IV 03/04/25 11:45 125 mg ONCE ONE Administration Sodium Chloride 50 ml 03/04/25 12:36 03/04/25 12:37 0.9 % Sodium Chloride 50 Ml Vial IV 03/04/25 12:37 50 ml ONCE ONE Administration Sodium Chloride 10 ml 03/04/25 12:36 03/04/25 12:37 Sodium Chloride 0.9% 10ml Syr (Rad Only) IV 04/03/25 12:35 10 ml NEEDED PRN Administration Maintain IV Site ORDERS Category Date Time Status CT angio chest PE protocol Stat Cat Scan 03/04/25 11:44 Completed XR chest portable Stat Exams 03/04/25 11:23 Completed CMP [Comprehensive Metabolic Panel] Stat Lab 03/04/25 11:10 Completed Complete Blood Count Auto Diff Stat Lab 03/04/25 11:10 Completed Full Resp Panel w/COVID ([facility]) Routine Lab 03/04/25 11:11 Completed Trop I [Troponin I] Stat Lab 03/04/25 11:10 Completed VBG [Venous Blood Gas] Stat RT 03/04/25 11:19 Completed ECG Data Tracing #1: ECG Narrative: Independently interpreted by me rate is 88, rhythm is regular, axis is normal, no ST elevation in anatomical contiguous leads, QTc 403 MDM Narrative Medical Decision Narrative: In summary patient is a 59-year-old male past medical history of scrota above presents emergency department for evaluation of productive cough. Patient is hemodynamically stable nontoxic-appearing upon arrival, afebrile saturating high 90s on room air. He does have cough and congestion posterior oropharynx appears clear, he does have wheezing in the bilateral lung rodríguez. Of note patient is recently out of his Trelegy which may be worsening his pulmonary status given that he does not have baseline control. Differential includes superimposed viral COPD exacerbation, pneumonia, among others. Workup in totality will be conducted with hematologic labs, chest x-ray, EKG, troponin, BNP. Initial inventions include ceftriaxone to broaden antibiotics given that he has atypical coverage currently with doxycycline. Aggressive crystalloid resuscitation was considered but will be deferred given that he does not appear septic on my initial evaluation. EKG nonischemic. Comprehensive viral respiratory panel will be obtained given the subacute nature of his cough. Initial workup reviewed by me no significant leukocytosis no transfusable anemia compensated acid-base status without hypercarbia no critical electrolyte abnormality or AMA initial troponin undetectably low. Viral swab reviewed by me patient has rhino enterovirus which is explanatory of patient's symptoms. Upon repeat evaluation patient had no significant continued respiratory distress, was saturating well on room air, no significant tachypnea. Given this patient is appropriate for discharge at this time and patient will be discharged with a course of steroids, azithromycin for anti-inflammatory effect, chronic COPD controlled medication. CT read no PE or dissection, interval increase in the left upper lobe pulmonary nodule for which continued workup was recommended. These findings were relayed to the patient and patient will continue to be worked up from an outpatient basis.
[2025-03-04] MEDS: IPRATROPIUM/ALBUTEROL 3 ML NEB 9 ML IH (11:55)
[2025-03-04] MEDS: METHYLPREDNISOLONE SOD SUCC 125MG VIAL 125 MG IV (11:56)
[2025-03-04] MEDS: MAGNESIUM SULFATE IN WATER 2 GM/50 ML PIGGYBACK IV (11:56)
[2025-03-04 12:00] LABS: Alanine Aminotransferase 21 U/L (12-78); Albumin Level 4.4 g/dl (3.5-5.0); Albumin/Globulin Ratio 1.5 (1.1-1.8); Alkaline Phosphatase 99 U/L (38-126); Anion Gap 15.3 mEq/L (5-15); Aspartate Amino Transferase 31 U/L (17-59); Bilirubin,Total 0.4 mg/dl (0.2-1.3); Blood Urea Nitrogen 12 mg/dl (9-20); Calcium 9.0 mg/dl (8.4-10.2); Carbon Dioxide 25 mmol/L (22.0-30.0); Chloride 98 mmol/L (98-107); Creatinine Clearance Estimated 91 mL/min (50-200); Creatinine,Serum 0.80 mg/dl (0.66-1.25); Estimated Glomerular Filt Rate 99 ml/min (>60); GFR (African American) 120 ML/MIN (>60); Globulin 2.9 g/dL (1.3-3.2); Glucose 129 mg/dl (74-100); Potassium 4.3 mmoL/L (3.5-5.1); Sodium 134 mmol/L (136-145); Total Protein,Serum 7.3 g/dl (6.3-8.2)
[2025-03-04 12:01] VITALS: BP 121/78; PULSE 78; RESP 15; O2SAT 97
[2025-03-04 12:15] LABS: Troponin I < 0.01 ng/ml (0.00-0.034)
[2025-03-04] MEDS: DOXYCYCLINE HYCLATE 100 MG in 0.9 % SODIUM CHLORIDE 250 ML 166.67 MG IV (12:18)
[2025-03-04] MEDS: IOPAMIDOL-370 (76%);100ML BOTTLE 70 ML IV (12:37)
[2025-03-04] MEDS: 0.9 % SODIUM CHLORIDE 50 ML VIAL IV (12:37)
[2025-03-04] MEDS: SODIUM CHLORIDE 0.9% 10ML SYR (RAD ONLY) 10 ML IV (12:37)
[2025-03-04 13:00] VITALS: BP 121/76; PULSE 99; RESP 24; O2SAT 94
[2025-03-04 14:01] VITALS: BP 138/99; PULSE 58; RESP 16; TEMP 36.6; O2SAT 98
== END 2025-03-04 14:02 | disposition home or self-care (01) ==
PROVIDERS: Emergency Provider Emergency Medicine; PCP Family Medicine
DX: J44.1 Chronic obstructive pulmonary disease with (acute) exacerbation (principal); R91.1 Solitary pulmonary nodule; B34.8 Other viral infections of unspecified site; K21.9 Gastro-esophageal reflux disease without esophagitis
CPT/HCPCS: 0223U; 71045; 71275; 80053; 82803; 84484; 85025; 93005; 96365; 96375; 99285; J2919; J3475; J7050; Q9967

== ENCOUNTER 2025-04-11 14:55 | Outpatient (CLI) | payer MEDICAID, SELFPAY ==
[2025-04-11 20:55] LABS: Coronavirus 19, PCR Not Detected (NotDetected); Influenza A, PCR Not Detected (NotDetected); Influenza B, PCR Not Detected (NotDetected)
--- OUTSIDE RECORDS SUMMARY | 2025-04-12 10:44 | XMS_ITS | Clinical Summary ---
Author Organization [facility] Address [address] [place] [address] Care Team Providers Care Professor Of Graphic Design Name Role Phone Unknown, Attending Provider Primary [...] therelease of HIV test results or diagnoses. [id number] Allergies Active Allergy Reactions Criticality Noted [...] 1983 Immunization: DTaP/Tdap/Td (1 - Tdap) 1984 Cologuard (FIT-DNA) 2010 Colonoscopy 2010 Colorectal Cancer Screening (MyChart) 2010 Stool Testing (gFOBT) 2010 Immunization: Zoster (1 of 2) 2015 Lung Cancer Screening 2015 Immunization: COVID-19 ( - season) 2025 Immunization: Influenza (MyC hernández) (#1) 01/17/2025 03/04/2022, 02/24/2020 Immunization: Pneumococcal ( 3 of 3 - PCV20 or PCV21) 09/14/2026 09/14/2021, 03/06/2016, 03/05/2016 Immunization: RSV (Adult) (1 - 1-dose 75+ series) 2040 Insurance [facility] Care Teams Professor Of Graphic Design Relationship Specialty Start Date End Date Unknown, Attending Provider PCP - General 11/05/22
--- OUTSIDE RECORDS SUMMARY | 2025-04-12 10:44 | XMS_ITS | Clinical Summary ---
Author Organization [facility] Address [address], [address] [place] [address] Care Team Providers Care Statistical Typist Name Role Phone Marlyn Quintero MD, Pantera [...] 6:50 PM 06/20/2017 5:30 PM Care Teams Statistical Typist Relationship Specialty Start Date End Date Pantera Cline MD [address] [place] [address] PCP - General 09/03/17
--- OUTSIDE RECORDS SUMMARY | 2025-04-12 10:44 | XMS_ITS | Clinical Summary ---
Author Organization [facility] Address [address] [place] [address] Care Team Providers Care Toll Collector Supervisor Name Role Phone Richard Edgar MD Primary Care Provider [phone] Allergies Active Allergy Reactions Criticality Noted Date [...] 2 (two) times a day. Active pancrelipase, Lmm-Oryp-Ugbv, (Creon) 55298-45850 units capsule See administration instructions. Take two [...] times a day. Active Enteral Nutrition Supplies [facility] Feeding tube supply kit, tubing, extension sets [...] Date Smoking Tobacco: Every Day Cigarettes 2 49.9 Started: 05/19/1975 Passive Smoke Exposure: Current Smokeless [...] drink first t yung in the morning (EYE-ORE TESTER) to 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 or to get [...] Last Done Comments [facility]-Infant/Child/Adol SDOH Screenings 1965 [facility]-MYREO-59 Vaccine (#1) 1970 [facility]- SDOH Screenings 1983 [facility]-Adult SDOH Screenings 1983 [facility]-DTaP,Tdap,and Td Vaccines (1 - Tdap) 1984 [facility]-Hepatitis A Vaccines (1 of 2 - Risk 2-dose series) 1984 CT Colonography 2010 Colonoscopy 2010 FIT-DNA 2010 FIT 2010 FOBT 2010 Sigmoidoscopy 2010 [facility]-Colorectal Cancer Screening 2010 Lung Cancer Screening Shared Decision Making 2015 [facility]-Zoster Vaccines (1 of 2) 2015 [facility]-Lung Cancer Screening 04/28/20212019, 05/02/2016, 04/02/2016, Additional history exists [facility]-Depression Screening 01/10/2024 01/09/2023 [facility]-Influenza Vaccine (#1) 2025 03/04/2022, [facility]-RSV Vaccine: 60+ Years or (1 - Risk 60-74 years 1-dose series) 2025 [facility]-Pneumococcal Vaccine: 50+ Years (3 of 3 [...] this topic Medical Devices Implanted Type Area Internet Marketing Executive Device Identifier Shelf Expiration Date Model / Serial / Lot [place] 18 - [id number] Implanted:Qty: 1 on 09/17/2021 at [facility] [id number] 05/22/2024 [id number] -[id number] / / [id number] Description:Implanted by Dr Juan Ramon Ta Vip Vascular Closure Device 6 Fr - [id number] Implanted:Qty: 1 on 09/17/2021 at [facility] [id number] 06/18/2022 [id number] / / [id number] Description:Deployed by Dr Nanci Ta Procedures Procedure [...] Antibody Negative Negative 10/07/2023 1:37 PM EDT [facility] Blood Venous blood specimen / Unknown Venipuncture / Unknown 10/07/2023 12:32 PM EDT 10/07/2023 12:47 PM EDT Melchor Estrada MD LAB BLOOD ORDERABLES Final Resu lt Performing Organization Address City/[facility]/ZIP Co de Phone Number [facility] [address] [place] [address] * HIV 1 & 2 Antibody/Antigen Screen (06/13/2022 5:58 PM EST) HIV 1 & 2 Antibody/Anti gen Screen Nonreactive Nonreactive 06/13/2022 7:11 PM EST [facility] Blood Venous blood specimen / Unknown Venipuncture / Unknown 06/13/2022 5:58 PM EST 06/13/2022 6:09 PM EST Norah Mathew DO LAB BLOOD ORDERABLES Final Re sult Performing Organization Address [facility] Co de Phone Number [facility] [address] [place] [address] * Hemoglobin A1c (03/06/2021 2:26 PM EDT) [...] Adults <6.0% Children and Adolescents <7.5% Source: [employer]. Standards of medical care in diabetes,2017. Diabetes Care.2017:40 (suppl 1):S1-S135. HbA1c assay performed by an ion-exchange chromatography method that is certified traceable to the DCCT. Teresa Banerjee MD LAB BLOOD ORDERABLES Final Resul t Performing Organization Address City/[facility] Co de Phone Number [facility] [address] [place] [address] from Last 3 Months or Most Recently Relevant to Health Maintenance Insurance [facility] MEDICAID Advance Directives * Full Code (Latest [...] Patient has decision-making capacity? Yes Care Teams Toll Collector Supervisor Relationship Specialty Start Date End Date Richard Edgar MD PCP - General 09/29/20
--- OUTSIDE RECORDS SUMMARY | 2025-04-12 10:44 | XMS_ITS | Clinical Summary ---
Author Organization [facility] Address [address] [place] [address] Care Team Providers Care Gaming Manager Name Role Phone Richard Edgar MD Primary Care Provider [phone] Social History Tobacco Use Types Packs/Day Years [...] of 2 - Risk 2-dose series) 1984 Pneumococcal Vaccine: 50+ Years (1 of 2 - PCV) 1984 Zoster Vaccines (1 of 2) 2015 Depression Risk Screening 05/19/2024 SDOH Screening 05/19/2024 COVID-19 Vaccine (1 - 2024-2 6 season) 2025 Influenza Vaccine (#1) 2025 2, 02/24/2020 Hepatitis B Vaccines (1 of 3 - Risk 3-dose series) 2025 HIB Vaccines Aged Out No longer eligi [...] patient's age to complete this topic Insurance [place] MED[place]ID [employer] Care Teams Gaming Manager Relationship Specialty [place] [id number] [place] [id number] PCP - General Family Medicine 07/20/20
--- OUTSIDE RECORDS SUMMARY | 2025-04-12 10:44 | XMS_ITS | Clinical Summary ---
Author Organization [facility] SOILA Lanier T Address [address] [facility] [place] [address] Phone Care Team Providers Care Food Counter Attendant Name Role Phone Unavailable Primary Care Provider [...] Description 09/05/2025 1:15 PM EDT Office [place] [facility] [address] [address] Shaan Reddy MD [address] [place] [address] Health Maintenance Due Date Last Done Comments Annual Wellness Exam 1968 Hepatitis C Screening 1983 DTaP/TDaP/Td (1 - Tdap) 1984 Cologuard 2010 Colon Cancer Screening 2010 Colonoscopy 2010 FIT 2010 Sigmoidoscopy 2010 Virtual Colonography 2010 Zoster (1 of 2) 2015 COVID-19 Vaccine (1 - 2024-2 6 season) 2025 Influenza Vaccine (#1) 2025 02/24/2020 Pneumococcal Vaccine 50+ (3 of 3 - PCV20 or PCV21) 09/14/2026 09/14/2021, 03/06/2016, 03/05/2016 Hepatitis B Vaccine Aged Out No longe r eligible based on patient's age to complete this topic Meningococcal B Vaccine Aged Out No l onger eligible based on patient's age to complete this topic Insurance [facility] [facility] [place] [id number] [place] [facility] [facility] [place] [id number] [place] [facility] [facility] [place] [id number] MDR
--- OUTSIDE RECORDS SUMMARY | 2025-04-12 10:44 | XMS_ITS | Clinical Summary ---
Author Organization [facility] Address [address] [place] [address] Care Team Providers Care Windows Application Developer Name Role Phone Richard Edgar MD Primary Care Provider [phone] Allergies Active Allergy Reactions Criticality Noted Date [...] Date Smoking Tobacco: Every Day Cigarettes 4 49.9 Started: 05/28/1975 Smokeless Tobacco: Never Tobacco Cessation:Ready [...] of Treatment [place] [address] [facility] Advance Directives For more information, please contact: [phone] Documents on File Type Date Recorded 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
--- OUTSIDE RECORDS SUMMARY | 2025-04-12 10:44 | XMS_ITS ---
Author Organization [facility] Address [address], [address] [place] [address] Care Team Providers Care Sugar Mixer Name Role Phone Marlyn Quintero MD, Pantera [facility] Active Problems Problem Noted Date Diagnosed [...]
--- OUTSIDE RECORDS SUMMARY | 2025-04-12 10:44 | XMS_ITS | Encounter Summary ---
Author Organization Healthcare Address [address] [place] [address] Care Team Providers Care Flower Picker Name Role Phone Richard Edgar MD Primary Care Provider [phone] Reason for Referral * Consultation (Routine) - Closed Specialty Diagnoses / Procedures Referred By Contac t Referred To Contact Gastroenterology Diagnoses Pseudocyst of pancreas Richard Edgar MD Phone: tel: fax: Marcel Juarez MD [address] [facility] [address] [place] [address] Phone: tel: fax: Referral ID Status Reason Start Date Expiration Date V isits Requested Visits Authorized [id number] Closed Specialty Services Required 03/01/2021 08/31/2022 1 1 Encounter Details Date Type Department Care Team (Late st Contact Info) Description 03/01/2021 Community [facility] [address] [place] [address] Richard Edgar MD [address] [place] [address] Pseudocyst of pancreas (Primary Dx) Social History [...] Primary documented in this encounter Care Teams Flower Picker Relationship Specialty Start Date End Date Richard Edgar MD PCP - General 09/29/20 documented as of this encounter
--- OUTSIDE RECORDS SUMMARY | 2025-04-12 10:44 | XMS_ITS | Encounter Summary ---
Author Organization [facility] Address [address] [place] [address] Care Team Providers Care Application Consultant Name Role Phone Richard Edgar MD Primary Care Provider [phone] Reason for Referral * Consultation (Routine) - Authorized Specialty Diagnoses / Procedures Referred By Contac t Referred To Contact Endocrinology Diagnoses None to low serum cortisol response with adrenocorticotrophic hormone (ACTH) stimulation test Richard Edgar MD [address] [place] [address] Phone: tel: fax: [facility] Endocrinology [address] [place] [address] Phone: tel: fax: Referral ID Status Reason Start Date Expiration Date Visits Requested Visits Authorized [id number] Authorized Specialty Services Required 11/03/2023 05/04/2025 1 1 Encounter Details Date Type Department Care Team (Latest Contact Info) Description 11/03/2023 Community [facility] Community Practice [address] [place] [address] Richard Edgar MD [address] [place] [id number] None to low serum cortisol response with [...] drink first t yung in the morning (EYE-ROOF FITTER) to 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 or to get [...] documented as of this encounter Care Teams Application Consultant Relationship Specialty Start Date End Date Richard Edgar MD PCP - General 09/29/20 documented as of this encounter
== END 2025-04-11 23:59 | disposition home or self-care (01) ==
LOC: LAB.DROPOF 04-12 10:39
PROVIDERS: PCP Family Medicine; Visit Provider Nurse Practitioner
DX: J06.9 Acute upper respiratory infection, unspecified (principal)
CPT/HCPCS: 87631

== ENCOUNTER 2025-05-04 12:42 | Outpatient (CLI) | payer MEDICAID, SELFPAY ==
--- NOTE | 2025-05-04 12:45 | XR_ITS ---
FINAL REPORT CLINICAL HISTORY: L shoulder pain FINDINGS: Three views of the left shoulder were obtained. There is no fracture or dislocation. The joint space is preserved. Soft tissues are unremarkable. IMPRESSION: No acute osseous abnormality of the left shoulder. Reviewed, Interpreted and Dictated by Jaymie Marshall MD Transcribed by Kathleen Forbes Authenticated and [facility]
--- OUTSIDE RECORDS SUMMARY | 2025-05-04 13:28 | XMS_ITS | Clinical Summary ---
Author Organization [facility] SOIL[facility] Lanier T Address [address] [facility] [place] [address] Phone Care Team Providers Care Optical Engineering Manager Name Role Phone Unavailable Primary Care Provider [...] Description 09/05/2025 1:15 PM EDT Office Visit [facility] [address] [address] Shaan Reddy MD [address] [place] [address] Health Maintenance Due Date Last Done Comments [...] to complete this topic Insurance [facility] [facility] [place] [id number] MDR [facility] [facility] [place] [id number] MDR [facility] [facility] [place] [id number] MDR
--- OUTSIDE RECORDS SUMMARY | 2025-05-04 13:28 | XMS_ITS | Clinical Summary ---
Author Organization [facility] Address [address] [facility] [address] [place] [address] Care Team Providers Care Home Child Care Provider Name Role Phone Richard Edgar MD Primary Care Provider [phone] Allergies Active Allergy Reactions Criticality Noted Date [...] 2 (two) times a day. Active pancrelipase, Otf-Shyc-Wccv, (Creon) [address] units capsule See administration instructions. Take two [...] times a day. Active Enteral Nutrition Supplies [facility] Feeding tube supply kit, tubing, extension sets [...] Date Smoking Tobacco: Every Day Cigarettes 2 50 Started: 05/19/1975 Passive Smoke Exposure: Current Smokeless [...] drink first t yung in the morning (EYE-DEBONING TEAM LEADER) to 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 or to get [...] Last Done Comments [facility]-/Child/Adol SDOH Screenings 1965 [id number] Vaccine (#1) 1965 [facility]- SDOH Screenings 1983 [facility]-Adult SDOH Screenings 1983 [facility]-DTaP,Tdap,and Td Vaccines (1 - Tdap) 1984 [facility]-Hepatitis A Vaccines (1 of 2 - Risk 2-dose series) 1984 CT Colonography 2010 Colonoscopy 2010 FIT-DNA 2010 FIT 2010 FOBT 2010 Sigmoidoscopy 2010 [facility]-Colorectal Cancer Screening 2010 Lung Cancer Screening Shared Decision Making 2015 [facility]-RSV Vaccine: 60+ Years or (1 - Risk 50-74 years 1-dose series) 2015 [facility]-Zoster Vaccines (1 of 2) 2015 [facility]-Lung Cancer Screening 04/28/20212019, 05/02/2016, 04/02/2016, Additional history exists [facility]-Depression Screening 01/10/2024 01/09/2023 [facility]-Influenza Vaccine (#1) 2025 03/04/2022, [facility]-Pneumococcal Vaccine: 50+ Years (3 of 3 - PCV20 or PCV21) 09/14/2026 09/14/2021, 03/06/2016, 03/05/2016 [facility]-Diabetes: Hemoglobin A1C Discontinued 03/06/2021 [facility]-HIV Screening Completed 06/13/2022 [facility]-Hepatitis C Screening Completed 2023, 06/13/2022, 11/10/2018 HPV Vaccines (No Doses Required) Completed [facility]-HIB Vaccines Aged Out No longer e ligible based on patient's age to complete this topic [facility]-IPV Vaccines Aged Out No longer e ligible based on patient's age to complete this topic [facility]-Rotavirus Vaccines Aged Out No lo nger eligible based on patient's age to complete this topic Medical Devices Implanted Type Area Metal Furniture Glazier Device Identifier Shelf Expiration Date Model / Serial / Lot Stephen 18 - [id number] Implanted:Qty: 1 on 09/17/2021 at [facility] [place] [employer] [id number] 05/22/2024 [id number] 00-06 0 / / [id number] Description:Implanted by Dr Juan Ramon Ta Vip Vascular Closure Device 6 Fr - [id number] Implanted:Qty: 1 on 09/17/2021 at [facility] [place] [id number] 06/18/2022 [id number] / / [id number] Description:Deployed by Dr Nanci Ta Procedures Procedure [...] Antibody Negative Negative 10/07/2023 1:37 PM EDT [facility] Blood Venous blood specimen / Unknown Venipuncture / Unknown 10/07/2023 12:32 PM EDT 10/07/2023 12:47 PM EDT Melchor Estrada MD LAB BLOOD ORDERABLES Final Resu lt [facility] [address] [place] [address] * HIV 1 & 2 Antibody/Antigen Screen (06/13/2022 5:58 PM EST) HIV 1 & 2 Antibody/Anti gen Screen Nonreactive Nonreactive 06/13/2022 7:11 PM EST [facility] Blood Venous blood specimen / Unknown Venipuncture / Unknown 06/13/2022 5:58 PM EST 06/13/2022 6:09 PM EST Norah Mathew DO LAB BLOOD ORDERABLES Final Re sult Performing Organization Address [facility] Co de Phone Number [facility] [address] [place] [address] * Hemoglobin A1c (03/06/2021 2:26 PM EDT) Hemoglobin A1c 4.7 <5.7 % 03/06/2021 3:33 PM EDT [facility] Blood Venous blood specimen / Unknown Venipuncture / Unknown 03/06/2021 2:26 PM EDT 03/06/2021 2:26 PM EDT Narrative [facility] - 03/06/2021 3:33 PM EDT HA1C Interpretive Data: Diagnosis of Diabetes: Diabetic > or = 6.5% Pre-diabetic 5.7 to 6.4% Non-diabetic < or = 5.6% Glycemic Targets for Type I and Type II Diabetics: Non- Adults <7.0% Adults <6.0% Children and Adolescents <7.5% Source: [place] [employer]. Standards of medical care in diabetes,2017. Diabetes Care.2017:40 (suppl 1):S1-S135. HbA1c assay performed by an ion-exchange chromatography method that is certified traceable to the DCCT. Teresa Banerjee MD LAB BLOOD ORDERABLES Final Resul t Performing Organization Address [facility] Co de Phone Number [facility] [address] [place] [address] from Last 3 Months or Most Recently Relevant to Health Maintenance Insurance [facility] MEDICAID Advance Directives * Full Code [...] Patient has decision-making capacity? Yes Care Teams Home Child Care Provider Relationship Specialty Start Date End Date Richard Edgar MD PCP - General 09/29/20
--- OUTSIDE RECORDS SUMMARY | 2025-05-04 13:29 | XMS_ITS | Encounter Summary ---
Author Organization [facility] Address [address] [place] [address] Care Team Providers Care Senior Maintenance Mechanic Name Role Phone Richard Edgar MD Primary Care Provider [phone] Reason for Referral * Consultation (Routine) - Closed Specialty Diagnoses / Procedures Referred By Contac t Referred To Contact Gastroenterology Diagnoses Pseudocyst of pancreas Richard Edgar MD Phone: tel: fax: Marcel Juarez MD [address] [facility] [address] [place] [address] Phone: tel: fax: Referral ID Status Reason Start Date Expiration Date V isits Requested Visits Authorized [id number] Closed Specialty Services Required 03/01/2021 08/31/2022 1 1 Encounter Details Date Type Department Care Team (Late st Contact Info) Description 03/01/2021 Community [facility] Community Practice [address] [place] [address] Richard Edgar MD [address] [place] [address] Pseudocyst of pancreas (Primary Dx) Social History [...] Primary documented in this encounter Care Teams Senior Maintenance Mechanic Relationship Specialty Start Date End Date Richard Edgar MD PCP - General 09/29/20 documented as of this encounter
--- OUTSIDE RECORDS SUMMARY | 2025-05-04 13:29 | XMS_ITS | Clinical Summary ---
Author Organization [facility] Address [address], [address] [place] [address] Care Team Providers Care Orthopaedic Nurse Name Role Phone Marlyn Quintero MD, Pantera [...] 6:50 PM 06/20/2017 5:30 PM Care Teams Orthopaedic Nurse Relationship Specialty Start Date End Date Pantera Cline MD [address] [place] [address] PCP - General 09/03/17
--- OUTSIDE RECORDS SUMMARY | 2025-05-04 13:29 | XMS_ITS | Data Portability ---
Author Organization On license of [facility] Address [address] [place] [address] Assessment Encounter Date Assessment Date Assessment LastModified by Organization Details LastModified Time 04/01/2018 04/01/2018 Patient presented to office today for a follow up visit for a previous hospital visit that occurred on / / Pt presented to hospital for: Pt s condition is unchanged since discharge; patient denies any new problems since discharge. Medications were reviewed and any necessary updates and renewals were made. Discussed potential side effects of medications. Pt is compliant with medications. Counseling was done on care goals and ways to prevent future hospitalizatio ns. Emphasized preventive health measures and educated pt to help reduce health risks and promote healthy living. Scheduled follow-up appointment for / / to review health status and care plan and instructed pt whom to contact in case of emergency. Further treatment per orders below. Not available 06/23/2018 15:47:45 06/03/2022 06/03/2022 advised again pt and mother to go to ed and they declined advised they could give fluids and get labs results quicker they declined discussed risk of waiting if in kidney failure they decline ed [email or web address] Not available 06/03/2022 16:31:29 Plan of Treatment Reminders Order Date Submit Date Provider Last Modified By Organization Details Last Modified Time Details Appointments None recorded . Lab rapid flu (A+B) 2023 024 [facility], [address], [place], [address], 4 08:18:17 rapid SARS CoV + SARS CoV 2 Ag, QL IA, respirat ory specimen 2023 024 [facility], [address] [place] [address], [address], 4 08:18:17 rapid strep group A, throat 2022 023 [facility], [address] [place] [address], [address], 3 15:45:24 amylase + lipase, serum 2022 023 [facility], [address], Kevin [address], [place], [address], 3 00:06:03 urinalys is, dipstick 2022 023 [facility], [address] [place] [address], [address], 3 16:27:57 culture, urine 2022 023 NANDINI [facility], [address], [address], [place], [address], 3 00:06:03 CMP, serum or plasma 2022 023 [facility], [address], [place] [address], [place], [address], 3 00:06:02 CBC w/ auto diff 2022 023 NANDINI [facility], [address], [place] [address], [place], [address], 3 00:06:02 urinalys is, dipstick 2017 018 [facility], [address] [place], [address], 8 16:11:47 Referral None recorded . Procedures None recorded . Surgeries None recorded . Imaging XR, chest 2017 018 [facility], [address] [place], [address], 8 16:45:39 Medication Orders Zithroma x Z-Jesus 250 mg tablet 2023 024 [facility], [address] [place], [address], 4 08:18:17 predniso ne 20 mg tablet 2023 024 [facility], [address] [place], [address], 4 08:18:17 predniso ne 20 mg tablet 2022 023 [facility] [id number], [address] , [place], [address], 4 13:45:48 Lomotil 2.5 mg-0.025 mg tablet 2017 018 [facility] [id number], [address] , [place], [address], 3 16:04:38 Megace ES 625 mg/5 mL (125 mg/mL) oral suspensi on 2017 018 [facility] [id number], [address] , [place], [address], 9 18:25:22 Zofran 4 mg tablet 2017 018 [facility], [address], [place], [address], 3 14:53:07 Ativan 2 mg tablet 2017 018 [facility] [id number], [address] , [place], [address], 4 13:45:06 Lomotil 2.5 mg-0.025 mg tablet 2017 018 [facility] [id number], [address] , [place], [address], 3 16:04:38 levetira cetam 500 mg tablet 2017 018 arkesbery [facility] [id number], [address] , [place], [address], 8 16:11:47 potassiu m chloride ER 10 mEq capsule, extended release 2017 018 [facility] [id number], [address] , [place], [address], 3 16:06:52 Folinic- Plus 4 mg-50 mg-2 mg tablet 2017 018 [facility] [id number], [address] , [place], [address], 3 16:04:53 cyanocob alamin (vit B-12) 1,000 mcg/mL injectio n solution 2017 018 [facility] [id number], [address] , [place], [address], 3 14:52:38 Patient TargetsNo targets recorded. Patient Instructions Encounter Date Encounter Id Patient Instructions Last Modified By Organization Details Last Modified Time 04/01/2018 [id number] learning about hypoxemia [email or web address] Not available 04/01/2018 16:11:47 blood in the urine: care instructions [email or web address] Not available 04/01/2018 16:11:47 reviewed medications and potential side effects [email or web address] Not available 06/23/2018 15:48:35 05/18/2018 [id number] reviewed medications and potential side effects Not available 05/18/2018 16:36:17 Reason for Referral None Reported. Results Created Date Observation Date Name Description Value Unit Range Abnormal Flag Note LastModifiedBy Organization Detail LastModifiedTime 04/01/20 18 04/01/2018 urina lysis , dipst ick Leukocytes Negati ve Not Available [place] [address] [place], [address], 04/01/2018 10:41:45 04/01/20 18 04/01/2018 urina lysis , dipst ick Nitrite negati ve Not Available [address] [place], [address], 04/01/2018 10:41:45 04/01/20 18 04/01/2018 urina lysis , dipst ick Urobilinogen .2 Not Available [address] [place], [address], 04/01/2018 10:41:45 04/01/20 18 04/01/2018 urina lysis , dipst ick Protein Negati ve Not Available [address] [place], [address], 04/01/2018 10:41:45 04/01/20 18 04/01/2018 urina lysis , dipst ick pH 7.0 Not Available [address] [place], [address], 04/01/2018 10:41:45 04/01/20 18 04/01/2018 urina lysis , dipst ick Blood Negati ve Not Available [address] [place], [address], 04/01/2018 10:41:45 04/01/20 18 04/01/2018 urina lysis , dipst ick Specific [place] 1.015 Not Available [address] [place], [address], 04/01/2018 10:41:45 04/01/20 18 04/01/2018 urina lysis , dipst ick Ketone Negati ve Not Available [address] [place], [address], 04/01/2018 10:41:45 04/01/20 18 04/01/2018 urina lysis , dipst ick Bilirubin Negati ve Not Available [address] [place], [address], 04/01/2018 10:41:45 04/01/20 18 04/01/2018 urina lysis , dipst ick Glucose Negati ve Not Available [address] [place], [address], 04/01/2018 10:41:45 04/01/20 18 04/01/2018 urina lysis , dipst ick Appearance Clear Not Available [address] [place], [address], 04/01/2018 10:41:45 04/01/20 18 04/01/2018 urina lysis , dipst ick Color Yellow Not Available [address] [place], [address], 04/01/2018 10:41:45 09/18/19 19 09/17/2018 hepat itis panel (A+B+ C), acute , serum note See Note Order ing Provi anjel: David Edgar MD Not Available [address] , [place], [address], 09/19/2018 07:10:36 09/18/19 19 09/17/2018 hepat itis panel (A+B+ C), acute , serum Ab hepatitis A IgM Negati ve negati ve Not Available [address] , [place], [address], 09/19/2018 07:10:36 09/18/19 19 09/17/2018 hepat itis panel (A+B+ C), acute , serum Ag hepatitis B surface Negati ve negati ve Not Available [address] [place], [address], 09/19/2018 07:10:36 09/18/1909/17/2018 hepat itis panel (A+B+ C), acute , serum Ab hepatitis B core IgM Negati ve negati ve Not Available [address] [place], [address], 09/19/2018 07:10:36 09/18/1909/17/2018 hepat itis panel (A+B+ C), acute , serum Ab hepatitis C <0.1 0.0-0. 9 INFCE Resul t Units : s/co ratio Negat kirill: < 0.8 Indet ermin ate: 0.8 - 0.9 Posit kirill: > 0.9 . The CDC recom mends that a posit kirill HCV antib mary resul t be follo wed up with a HCV Nucle ic Acid Ampli ficat ion test (0198 13). Perfo rmed At: CB, [facility] [address] [place], [address] [address] jenny bolivar, PhD, Phone : [phone] Not Available [address] [place], [address], 09/19/2018 07:10:36 09/18/19 19 09/17/2018 hepat itis panel (A+B+ C), acute , serum performing lab see note LC2 - [facility] CLIEN T# [id number] [address] [place] [address] Not Available [place] [id number] [facility] [place], [address], 09/19/2018 07:10:36 06/03/1906/04/2022 CBC WITH DIFFE RENTI AL/PL ATELE T WBC 4.2 x10e3 /uL 3.4-10 .8 Not Available [facility] ([facility]) [address] [place], [address], 06/05/2022 00:06:02 06/03/1906/04/2022 CBC WITH DIFFE RENTI AL/PL ATELE T RBC 3.75 x10e6 /uL 4.14-5 .80 below low normal Not Available [facility] ([facility]) [address] [place], [address], 06/05/2022 00:06:02 06/03/1906/04/2022 CBC WITH DIFFE RENTI AL/PL ATELE T hemoglobin 13.0 g/dL 13.0-1 7.7 Not Available [facility] ([facility]) [address] [place], [address], 06/05/2022 00:06:02 06/03/1906/04/2022 CBC WITH DIFFE RENTI AL/PL ATELE T hematocrit 36.9 % 37.5-5 1.0 below low normal Not Available [facility] ([facility]) [address] [place], [address], 06/05/2022 00:06:02 06/03/1906/04/2022 CBC WITH DIFFE RENTI AL/PL ATELE T MCV 98 fL 79-97 above high normal Not Available [facility] ([facility]) [address] [place], [address], 06/05/2022 00:06:02 06/03/1906/04/2022 CBC WITH DIFFE RENTI AL/PL ATELE T MCH 34.7 pg 26.6-3 3.0 above high normal Not Available [facility] ([facility]) [address] [place], [address], 06/05/2022 00:06:02 06/03/1906/04/2022 CBC WITH DIFFE RENTI AL/PL ATELE T MCHC 35.2 g/dL 31.5-3 5.7 Not Available [facility] ([facility]) [address] [place], [address], 06/05/2022 00:06:02 06/03/1906/04/2022 CBC WITH DIFFE RENTI AL/PL ATELE T RDW 14.1 % 11.6-1 5.4 Not Available [facility] ([facility]) [address] [place], [address], 06/05/2022 00:06:02 06/03/1906/04/2022 CBC WITH DIFFE RENTI AL/PL ATELE T platelets 104 x10e3 /uL 150-45 0 below low normal Not Available [facility] ([facility]) [address] [place], [address], 06/05/2022 00:06:02 06/03/1906/04/2022 CBC WITH DIFFE RENTI AL/PL ATELE T neutrophils 53 % not estab. Not Available [facility] ([facility]) [address] [place], [address], 06/05/2022 00:06:02 06/03/1906/04/2022 CBC WITH DIFFE RENTI AL/PL ATELE T lymphs 24 % not estab. Not Available [facility] ([facility]) [address] [place], [address], 06/05/2022 00:06:02 06/03/1906/04/2022 CBC WITH DIFFE RENTI AL/PL ATELE T monocytes 16 % not estab. Not Available [facility] ([facility]) [address] [facility], [place], [address], 06/05/2022 00:06:02 06/03/19 23 06/04/2022 CBC WITH DIFFE RENTI AL/PL ATELE T eos 5 % not estab. Not Available [facility] ([facility]) [address] [facility], [place], [address], 06/05/2022 00:06:02 06/03/1906/04/2022 CBC WITH DIFFE RENTI AL/PL ATELE T basos 1 % not estab. 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 0 Not Available [facility] ([facility]) [address] [facility], [place], [address], 06/05/2022 00:06:02 06/03/1906/04/2022 CBC WITH DIFFE RENTI AL/PL ATELE T lymphs (absolute) 1.0 x10e3 /uL 0.7-3. 1 Not Available [facility] ([facility]) [address] [facility], [place], [address], 06/05/2022 00:06:02 06/03/19 23 06/04/2022 CBC WITH DIFFE RENTI AL/PL ATELE T monocytes(ab solute) 0.7 x10e3 /uL 0.1-0. 9 Not Available [facility] ([facility]) [address] [facility], [place], [address], 06/05/2022 00:06:02 06/03/1906/04/2022 CBC WITH DIFFE RENTI AL/PL ATELE T eos (absolute) 0.2 x10e3 /uL 0.0-0. 4 Not Available [facility] ([facility]) [address] [facility], [place], [address], 06/05/2022 00:06:02 06/03/1906/04/2022 CBC WITH DIFFE RENTI AL/PL ATELE T baso (absolute) 0.0 x10e3 /uL 0.0-0. 2 Not Available [facility] ([facility]) [address] [facility], [place], [address], 06/05/2022 00:06:02 06/03/1906/04/2022 CBC WITH DIFFE RENTI AL/PL ATELE T immature granulocytes 1 % not estab. Not Available [facility] ([facility]) [address] [facility], [place], [address], 06/05/2022 00:06:02 06/03/1906/04/2022 CBC WITH DIFFE RENTI AL/PL ATELE T immature grans (abs) 0.0 x10e3 /uL 0.0-0. 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 METAB OLIC PANEL (14) glucose 115 mg/dL 70-99 above high normal Not Available [facility] ([facility]) [address] [facility] [place], [address], 06/05/2022 00:06:02 06/03/1906/04/2022 COMP. METAB OLIC PANEL (14) BUN 7 mg/dL 6-24 Not Available [facility] ([facility]) [address] [facility] [place], [address], 06/05/2022 00:06:02 06/03/1906/04/2022 COMP. METAB OLIC PANEL (14) creatinine 0.76 mg/dL 0.76-1 .27 Not Available [facility] ([facility]) [address] [facility] [place], [address], 06/05/2022 00:06:02 06/03/1906/04/2022 COMP. METAB OLIC PANEL (14) eGFR 105 mL/mi n/1.7 3 >59 Not Available [facility] ([facility]) [address] [facility] [place], [address], 06/05/2022 00:06:02 06/03/1906/04/2022 COMP. METAB OLIC PANEL (14) BUN/creatini ne ratio 9 9-20 Not Available [facility] ([facility]) [address] [facility] [place], [address], 06/05/2022 00:06:02 06/03/1906/04/2022 COMP. METAB OLIC PANEL (14) sodium 135 mmol/ L 134-14 4 Not Available [facility] ([facility]) [address] [facility] [place], [address], 06/05/2022 00:06:02 06/03/19 23 06/04/2022 COMP. METAB OLIC PANEL (14) potassium 4.2 mmol/ L 3.5-5. 2 Not Available [facility] ([facility]) [address] [facility] [place], [address], 06/05/2022 00:06:02 06/03/19 23 06/04/2022 COMP. METAB OLIC PANEL (14) chloride 96 mmol/ L 96-106 Not Available [facility] ([facility]) [address] [facility] [place], [address], 06/05/2022 00:06:02 06/03/1906/04/2022 COMP. METAB OLIC PANEL (14) carbon dioxide, total 28 mmol/ L 20-29 Not Available [facility] ([facility]) [address] [facility], [place], [address], 06/05/2022 00:06:02 06/03/1906/04/2022 COMP. METAB OLIC PANEL (14) calcium 9.0 mg/dL 8.7-10 .2 Not Available [facility] ([facility]) [address] [facility] [place], [address], 06/05/2022 00:06:02 06/03/1906/04/2022 COMP. METAB OLIC PANEL (14) protein, total 6.6 g/dL 6.0-8. 5 Not Available [facility] ([facility]) [address] [facility] [place], [address], 06/05/2022 00:06:02 06/03/1906/04/2022 COMP. METAB OLIC PANEL (14) albumin 4.1 g/dL 3.8-4. 9 Not Available [facility] ([facility]) [address] [facility] [place], [address], 06/05/2022 00:06:02 06/03/19 23 06/04/2022 COMP. METAB OLIC PANEL (14) globulin, total 2.5 g/dL 1.5-4. 5 Not Available [facility] ([facility]) [address] [facility] [place], [address], 06/05/2022 00:06:02 06/03/19 23 06/04/2022 COMP. METAB OLIC PANEL (14) A/G ratio 1.6 1.2-2. 2 Not Available [facility] ([facility]) [address] [facility] [place], [address], 06/05/2022 00:06:02 06/03/19 23 06/04/2022 COMP. METAB OLIC PANEL (14) bilirubin, total 0.6 mg/dL 0.0-1. 2 Not Available [facility] ([facility]) [address] [facility] [place], [address], 06/05/2022 00:06:02 06/03/19 23 06/04/2022 COMP. METAB OLIC PANEL (14) alkaline phosphatase 200 IU/L 44-121 above high normal Not Available [facility] ([facility]) [address] [place], [address], 06/05/2022 00:06:02 06/03/19 23 06/04/2022 COMP. METAB OLIC PANEL (14) AST (SGOT) 54 IU/L 0-40 above high normal Not Available [facility] ([facility]) [address] [place], [address], 06/05/2022 00:06:02 06/03/19 23 06/04/2022 COMP. METAB OLIC PANEL (14) ALT (SGPT) 34 IU/L 0-44 Not Available [facility] ([facility]) [address] [place], [address], 06/05/2022 00:06:02 06/03/19 23 06/04/2022 ELICEO+L IPASE amylase 163 U/L 31-110 above high normal Not Available [facility] ([facility]) [address] [facility], [place], [address], 06/05/2022 00:06:03 06/03/1906/04/2022 ELICEO+L IPASE lipase 174 U/L 13-78 above high normal Not Available [facility] ([facility]) [address] [facility], [place], [address], 06/05/2022 00:06:03 06/03/1906/04/2022 URINE CULTU RE, ROUTI NE urine culture, routine Final report Not Available [facility] ([facility]) [address] [facility], [place], [address], 06/05/2022 00:06:03 06/03/1906/04/2022 URINE CULTU RE, ROUTI NE result 1 Commen t Mixed uroge nital magui Less than 10,00 0 colon ies/m L Not Available [facility] ([facility]) [address] [facility], [place], [address], 06/05/2022 00:06:03 06/03/1906/04/2022 PLECASA E NOTE please note Commen t The date and/o r time of colle ction was not indic ated on the requi sitio n as requi red by state and abiodun al law. The date of recei pt of the speci men was used as the colle ction date if not suppl ied. Not Available [facility] ([facility]) [address] [facility], [place], [address], 06/05/2022 00:06:04 06/03/1906/03/2022 urina lysis , dipst ick Leukocytes Negati ve Not Available [address], [address], 06/03/2022 16:17:16 06/03/19 23 06/03/2022 urina lysis , dipst ick Nitrite negati ve Not Available [address], [address], 06/03/2022 16:17:16 06/03/19 23 06/03/2022 urina lysis , dipst ick Urobilinogen .2 Not Available [place] [address], [address], 06/03/2022 16:17:16 06/03/19 23 06/03/2022 urina lysis , dipst ick Protein 30 Not Available [address], [address], 06/03/2022 16:17:16 06/03/19 23 06/03/2022 urina lysis , dipst ick pH 8.5 Not Available [address], [address], 06/03/2022 16:17:16 06/03/19 23 06/03/2022 urina lysis , dipst ick Blood Negati ve Not Available [address], [address], 06/03/2022 16:17:16 06/03/19 23 06/03/2022 urina lysis , dipst ick Specific [place] 1.015 Not Available [address], [address], 06/03/2022 16:17:16 06/03/19 23 06/03/2022 urina lysis , dipst ick Ketone Negati ve Not Available [address], [address], 06/03/2022 16:17:16 06/03/19 23 06/03/2022 urina lysis , dipst ick Bilirubin Negati ve Not Available [address], [address], 06/03/2022 16:17:16 06/03/19 23 06/03/2022 urina lysis , dipst ick Glucose Negati ve Not Available [address], [address], 06/03/2022 16:17:16 06/03/19 23 06/03/2022 urina lysis , dipst ick Appearance Clear Not Available [address], [address], 06/03/2022 16:17:16 06/03/19 23 06/03/2022 urina lysis , dipst ick Color Dark Yellow Not Available [address], [address], 06/03/2022 16:17:16 03/17/20 23 03/17/2023 rapid strep group A, throa t Strep negati ve Not Available [address], [address], 03/17/2023 14:50:17 03/17/20 23 03/17/2023 rapid strep group A, throa t Culture No Not Available [address], [address], 03/17/2023 14:50:17 04/22/20 24 04/22/2024 rapid flu (A+B) Flu negati ve Not Available [address], [address], 04/22/2024 13:51:48 04/22/20 24 04/22/2024 rapid flu (A+B) Type Both A & B Not Available [address], [address], 04/22/2024 13:51:48 04/22/20 24 04/22/2024 rapid SARS CoV + SARS CoV 2 Ag, QL IA, respi rator y speci men SARS CoV antigen Negati ve Not Available [address], [address], 04/22/2024 13:51:59 05/18/20 18 05/18/2018 XR, chest No observ ation record ed. [facility] [address] [place], [address], 05/18/2018 16:46:01 Result Notes None recorded. Problems Name Problem SNOMED Code Status Onset Date Resolution Date Notes Provider Name and Address Organization Details Recorded Time Acid reflux 362343144 Active Daniella Scott RN [address], [place], [address] , [place] - [facility] 8 14:11:22 Bipolar disorder 73287430 Active Lupis Lucas [place], [place] - [facility] 3 16:16:03 History of alcoholism 946098494 Active 2008 Daniella Scott RN [address], [place], [address] , [place] - [facility] 8 14:11:22 Cobalamin deficiency 148658650 Active 2015 Daniella Scott RN [address], [place], [address] , [place] - [facility] 8 14:11:22 Tobacco user 868152219 Active 2015 Daniella Scott RN [address], [place], [address] , [facility] - [facility] 8 14:11:22 Malignant neoplasm of lung 872786838 Active 2016 pt states stage 4 Daniella Scott RN [address], [place], [address] , [place] - [facility] 8 14:11:22 Chronic anxiety 045041637 Active 2017 FUENTES Velarde [facility] 8 16:18:33 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 Procedures Surgical History Date Name Laterality Status Provider Name and Address Organization Details Recorded Time 03/10/20 23 drainage of pancreatic pseudocyst completed Lupis Lucas [place] - [facility] 03/17/2023 14:55:11 05/18/20 18 Systolic B/P less than 130 mm Hg [facility] 05/18/2018 14:30:07 05/18/20 18 Diastolic B/P less than 80 mm Hg completed [facility] 05/18/2018 14:30:09 04/01/20 18 Systolic B/P less than [address] [facility] - [facility] 06/23/2018 15:46:15 04/01/20 18 Diastolic B/P less than 80 mm Hg completed [facility] 06/23/2018 15:46:18 04/01/20 18 Medication Reconcilliation completed Kathleen Driscoll [facility] 04/01/2018 10:36:03 cholecystectomy completed Lupis Lucas [facility] 06/03/2022 16:10:35 Imaging Results None recorded. Procedure Notes None recorded. Medical Equipment None Reported. Allergies Allergen ID Allergen Name Allergen Category Reaction Reaction Severity Criticality Documentation Date Start Date Code Code System Note Provider Name and Address Organization Details Recorded Time 059350 trimethop rim medicatio n Not available Not available Not available 11/27/20172017 80464 RxNomargaret Scott RN [address], [place], [address], [place] - [facility] 8 14:10:57 524594 sulfameth oxazole medicatio n Not available Not available Not available 11/27/20172017 51972 RxNomargaret Scott RN [address], [place], [address], [place] - [facility] 8 14:10:57 87223 Bactrim medicatio n Not available Not available Not available 02/23/20162013 [id number] 9 RxNorm Daniella Scott RN [address], [place], [address], [place] - [facility] 8 14:10:57 [id number] Bactrim medicatio n Not available Not available Not available 02/23/20162013 [id number] 9 RxNorm Not Available [facility] 6 09:55:39 Medications Name Sig Start Date Stop Date Status Note LastModified by Organization Details LastModified Time Prescript ion - Renewal 12/10 completed RX-[facility] CET Not Available Not Available Not Available celecoxib 200 mg capsule Take 1 capsule twice a day by oral route. 08/22 completed Not Available Not Available Not Available amoxicill in 500 mg capsule Take 1 capsule 3 times a day by oral route. 04/22 completed Not Available Not Available Not Available promethaz ine-DM 6.25 mg-15 mg/5 mL oral syrup Take 5 mL every 6 hours by oral route. 08/18 completed Not Available Not Available Not Available nystatin 100,000 unit/mL oral suspensio n 04/01 completed Not Available Not Available Not Available potassium chloride ER 10 mEq capsule,e xtended release TAKE ONE CAPSULE BY MOUTH DAILY 06/03 completed Not Available Not Available Not Available Carafate 100 mg/mL oral suspensio n Take 10 mL 4 times a day by oral route. 06/03 completed Not Available Not Available Not Available Ceftin 500 mg tablet take 1 tablet (500 mg) by oral route 2 times per day for 10 days 11/07 completed Ceftin 500 mg oral tablet;P rescribe Status: Prescrib ed on: 08/08/19 16 3:22PM;D iscontin ued Status: Disconti nued on: 11/08/19 16 1:29PM;U ser: markesbe ryh;Est. Completi on: 08/18/19 16;Pharm acyVerif ied: 08/08/19 16 3:22PM Not Available Not Available Not Available polyethyl jen glycol 3350 17 gram oral powder packet 03/17 completed Not Available Not Available Not Available Lidocaine Viscous 2 % mucosal solution 08/22 completed Not Available Not Available Not Available benzonata te 200 mg capsule Take 1 capsule 3 times a day by oral route as needed. 06/03 completed Not Available Not Available Not Available levetirac etam 500 mg tablet TAKE ONE TABLET BY MOUTH TWICE A DAY active Not Available Not Available No t Available hydrocodo ne 5 mg-acetam inophen 325 mg tablet Take 1 tablet every 6 hours by oral route. 03/17 completed Not Available Not Available Not Available Celestone Soluspan 6 mg/mL suspensio n for injection Take 1 mL by injectio n route. 09/25 completed Not Available Not Available Not Available promethaz ine 25 mg rectal supposito ry 08/22 completed Not Available Not Available Not Available ondansetr on HCl 8 mg tablet 08/22 completed Not Available Not Available Not Available sucralfat e 1 gram tablet TAKE ONE TABLET BY MOUTH FOUR TIMES A DAY ON AN EMPTY STOMACH ONE HOUR BEFORE MEALS AND AT BEDTIME active Not Available Not Available No t Available naltrexon e 50 mg tablet active Not Available Not Available Not Available ondansetr on HCl 4 mg tablet Take 1 tablet 4 times a day by oral route as needed. 03/17 completed Not Available Not Available Not Available prednison e 20 mg tablet Take 1 tablet twice a day by oral route for 5 days. 2023 active Not Available Not Available Not Avai lable Zithromax Z-Jesus 250 mg tablet TAKE 2 TABLETS (500 MG) BY ORAL ROUTE ONCE DAILY FOR 1 DAY THEN 1 TABLET (250 MG) BY ORAL ROUTE ONCE DAILY FOR 4 DAYS 2023 active Not Available Not Available Not Avai lable thiamine HCl (vitamin B1) 100 mg tablet active Not Available Not Available No t Available promethaz ine 6.25 mg-codein e 10 mg/5 mL syrup Take 5 mL every 6 hours by oral route. 08/22 completed Not Available Not Available Not Available diphenoxy late-atro pine 2.5 mg-0.025 mg tablet Take 2 tablets 4 times a day by oral route. 06/03 completed Not Available Not Available Not Available penicilli n V potassium 500 mg tablet 08/22 completed Not Available Not Available Not Available senna 8.8 mg/5 mL oral syrup 03/17 completed Not Available Not Available Not Available prochlorp erazine maleate 10 mg tablet TAKE 1 TABLET BY MOUTH EVERY 8 HOURS NEEDED FOR NAUSEA AND VOMITING . 03/17 completed Not Available Not Available Not Available Antabuse 250 mg tablet take 1 tablet (250 mg) by oral route once daily for 30 days 11/01 completed Antabuse 250 mg oral tablet;R ecorded Status: Recorded on: 09/24/19 09 1:52PM;D iscontin ued Status: Disconti nued on: 11/02/19 15 3:00PM;U ser: fabi chapin;Est. Completi on: 10/24/19 09;Indic ation: Alcoholi sm - (3039 ) Not Available Not Available Not Available ciproflox acin 500 mg tablet take 1 tablet (500 mg) by oral route 2 times per day for 10 days 03/24 completed Not Available Not Available Not Available omeprazol e 40 mg capsule,d elayed release TAKE ONE CAPSULE BY MOUTH DAILY 06/03 completed Not Available Not Available Not Available acetamino phen 500 mg tablet 03/17 completed Not Available Not Available Not Available Depo-Medr ol 80 mg/mL suspensio n for injection Take 80 mg by injectio n route. 08/22 completed Not Available Not Available Not Available Bentyl 20 mg tablet take 1 tablet (20 mg) by oral route 3 times per day for 20 days 11/27 completed Bentyl 20 mg oral tablet;P rescribe Status: Prescrib ed on: 11/08/19 16 2:07PM;U ser: fabi chapin;Est. Completi on: 11/28/19 16;Pharm acyVerif ied: 11/08/19 16 2:07PM Not Available Not Available Not Available Tessalon Perles 100 mg capsule take 1 capsule (100 mg) by oral route 3 times per day for 10 days 11/07 completed Tessalon Perles 100 mg oral capsule; Prescrib e Status: Prescrib ed on: 07/24/19 16 12:14PM; Disconti nued Status: Disconti nued on: 11/08/19 16 1:29PM;U ser: woodst;E st. Completi on: 08/03/19 16;Pharm acyVerif ied: 07/24/19 16 12:14PM Not Available Not Available Not Available ceftriaxo ne 1 gram solution for injection Take 1 g by injectio n route. 08/18 completed no reaction to the injectio n site in office Not Available Not Available Not Available chlordiaz epoxide 25 mg capsule Take 1 capsule 3 times a day by oral route. 08/18 completed Not Available Not Available Not Available oxycodone -acetamin ophen 10 mg-325 mg tablet Take 1 tablet every 6 hours by oral route. 08/18 completed Not Available Not Available Not Available lorazepam 2 mg tablet Take 1 tablet 4 times a day by oral route as needed. 04/22 completed Not Available Not Available Not Available ascorbic acid (vitamin C) 250 mg tablet active Not Available Not Available Not Available cephalexi n 500 mg capsule 08/22 completed Not Available Not Available Not Available pantopraz ole 40 mg tablet,de layed release take 1 tablet (40 mg) by oral route 2 times per day for 30 days active Not Available Not Available No t Available hyoscyami ne sulfate 0.125 mg tablet active Not Available Not Available Not Available cyanocoba aisha (vit B-12) 1,000 mcg/mL injection solution Inject 1000 microgra ms every month by intramus cular route. 03/17 completed Not Available Not Available Not Available Lincocin 300 mg/mL injection solution Take 1 mL by injectio n route. 09/25 completed Not Available Not Available Not Available dexametha sone 4 mg tablet 08/22 completed Not Available Not Available Not Available prednison e 50 mg tablet 08/22 completed Not Available Not Available Not Available promethaz ine 25 mg tablet TAKE ONE TABLET BY MOUTH EVERY 6 HOURS NEEDED FOR NAUSEA AND VOMITING active Not Available Not Available No t Available nicotine 21 mg/24 hr daily transderm al patch apply 1 PATCH topicall y EVERY DAY NEEDED FOR nicotine cravings active Not Available Not Available No t Available megestrol 40 mg tablet Take 1 tablet twice a day by oral route. 06/03 completed Not Available Not Available Not Available gabapenti n 300 mg capsule Take 1 capsule 3 times a day by oral route. 08/22 completed Not Available Not Available Not Available omeprazol e 20 mg capsule,d elayed release TAKE TWO CAPSULES BY MOUTH DAILY BEFORE A MEAL 07/02 completed Not Available Not Available Not Available folic acid 1 mg tablet active Not Available Not Available Not Available ranitidin e 150 mg capsule TAKE ONE CAPSULE BY MOUTH ONCE NIGHTLY AT BEDTIME 08/18 completed Not Available Not Available Not Available Marinol 5 mg capsule Take 5 mg 3 times a day by oral route. 08/18 completed Not Available Not Available Not Available lorazepam 1 mg tablet TAKE TWO TABLETS BY MOUTH TWICE DAILY NEEDED FOR ANXIETY active Not Available Not Available No t Available polyethyl jen glycol 3350 17 gram/dose oral powder Take 17 g every day by oral route for 14 days. active Not Available Not Available No t Available levofloxa german 500 mg tablet Take 1 tablet every 24 hours by oral route. 08/18 completed Not Available Not Available Not Available methylpre dnisolone 4 mg tablets in a dose pack take as directed for 6 days 12/10 completed Not Available Not Available Not Available hydrocodo ne 10 mg-chlorp heniramin e 8 mg/5 mL oral susp extend.re l 12hr Take 5 mL every 12 hours by oral route. 09/25 completed Not Available Not Available Not Available fluconazo le 40 mg/mL oral suspensio n 08/22 completed Not Available Not Available Not Available ondansetr on 4 mg disintegr ating tablet DISSOLVE ONE TABLET BY MOUTH EVERY 6 HOURS NEEDED FOR NAUSEA AND VOMITING FOR 5 DAYS 04/22 completed Not Available Not Available Not Available cefdinir 300 mg capsule Take 1 capsule every 12 hours by oral route. 06/03 completed Not Available Not Available Not Available fluticaso ne propionat e 50 mcg/actua tion nasal spray,jes pension INSTILL 2 SPRAYS IN EACH NOSTRIL TWICE DAILY FOR FOR ALLERGY SYMPTOMS active Not Available Not Available No t Available dicyclomi ne 10 mg capsule Take 1 capsule 3 times a day by oral route for 30 days. 03/17 completed Not Available Not Available Not Available metoclopr amide 10 mg tablet Take 1 tablet 4 times a day by oral route. 01/08 completed Not Available Not Available Not Available nicotine 7 mg/24 hr daily transderm al patch 06/03 completed Not Available Not Available Not Available Ventolin HFA 90 mcg/actua tion aerosol inhaler INHALE 1 PUFF BY MOUTH EVERY 4 HOURS NEEDED FOR SHORTNES S OF BREATH active Not Available Not Available No t Available simethico ne 80 mg chewable tablet 03/17 completed Not Available Not Available Not Available oxycodone 5 mg tablet 06/03 completed Not Available Not Available Not Available Senna Plus 8.6 mg-50 mg tablet Take 1 tablet twice a day by oral route for 30 days. active Not Available Not Available No t Available levetirac etam 100 mg/mL oral solution 03/17 completed Not Available Not Available Not Available megestrol 625 mg/5 mL (125 mg/mL) oral suspensio n 05/27 completed Not Available Not Available Not Available Ceftin 1 bid 08/07 completed ceftin 500 mg;Recor ded Status: Recorded on: 08/08/19 16 3:04PM;D iscontin ued Status: Disconti nued on: 08/08/19 16 3:21PM;U ser: markmicbe ryh;Est. Completi on: 08/18/19 16;Indic ation: - (-5) Not Available Not Available Not Available lorazepam 1 bid 11/21 completed lorazepa m 2 mg;Recor ded Status: Recorded on: 10/23/19 16 4:23PM;U ser: markesbe ryh;Est. Completi on: 11/22/19 16;Indic ation: None Availabl e - (-5) Not Available Not Available Not Available Bentyl 1 tid before meals 11/07 completed bentyl 20 mg;Recor ded Status: Recorded on: 11/08/19 16 1:54PM;D iscontin ued Status: Disconti nued on: 11/08/19 16 2:06PM;U ser: markesbe ryh;Est. Completi on: 11/28/19 16;Indic ation: - (-5) Not Available Not Available Not Available Librium 1 tid 11/01 completed librium 25mg;Rec orded Status: Recorded on: 05/22/19 12 1:51PM;D iscontin ued Status: Disconti nued on: 11/02/19 15 3:00PM;U ser: markesbe ryh;Est. Completi on: 06/21/19 12;Indic ation: - (-5);Minnie nted: 05/22/19 12 Not Available Not Available Not Available Prilosec 1bid 03/27 completed prilosec 20 mg;Recor ded Status: Recorded on: 03/27/20 15 1:05PM;D iscontin ued Status: Disconti nued on: 03/27/20 15 1:56PM;U ser: markmicbe ryh;Est. Completi on: 06/25/19 16;Indic ation: - (-5) Not Available Not Available Not Available Tessalon Perles 1 qid prn cough 07/23 completed tessalon pearls 200 mg;Recor ded Status: Recorded on: 07/24/19 16 12:09PM; Disconti nued Status: Disconti nued on: 07/24/19 16 12:14PM; User: fabi chapin;Est. Completi on: 08/05/19 16;Indic ation: - (-5) Not Available Not Available Not Available Carafate 1 tab qid between meal and hs 08/07 completed carafate ;Recorde d Status: Recorded on: 08/08/19 16 3:04PM;D iscontin ued Status: Disconti nued on: 08/08/19 16 3:21PM;U ser: markesbe ryh;Est. Completi on: 08/29/19 16;Indic ation: - (-5) Not Available Not Available Not Available Protonix 1 bid 11/01 completed protonic 40 mg;Recor ded Status: Recorded on: 05/31/19 15 1:55PM;D iscontin ued Status: Disconti nued on: 11/02/19 15 3:00PM;U ser: fabi chapin;Est. Completi on: 10/29/19 15;Indic ation: None Selected - (-5) Not Available Not Available Not Available Albuterol Sulfate HFA qid 07/23 completed albutero l mdi;Joshua rded Status: Recorded on: 07/24/19 16 12:09PM; Disconti nued Status: Disconti nued on: 07/24/19 16 12:14PM; User: fabi chapin;Est. Completi on: 11/21/19 16 Not Available Not Available Not Available omeprazol e 20 mg tablet,de layed release take 1 tablet by oral route 2 times a day for 30 days 11/01 completed omeprazo le 20 mg oral tablet,d elayed release (/EC); Prescrib e Status: Prescrib ed on: 02/08/20 14 10:24AM; Disconti nued Status: Disconti nued on: 11/02/19 15 3:00PM;U ser: woodst;E st. Completi on: 06/07/19 15;Pharm acyVerif ied: 02/08/20 14 10:24AM Not Available Not Available Not Available oxycodone 10 mg tablet TAKE ONE TABLET BY MOUTH TWICE DAILY NEEDED FOR PAIN FROM PANCREAT ITIS active Not Available Not Available No t Available Creon 12,000-38 ,000-60,0 00 unit capsule,d elayed release Take 2 capsules 3 times a day by oral route. 03/17 completed Not Available Not Available Not Available Vitamin B-1 (mononitr ate) 100 mg tablet active Not Available Not Available No t Available Creon 36,000 unit-114, 000 unit-180, 000 unit capsule,d elayed release TAKE 6 CAPSULES BY MOUTH TWICE DAILY active Not Available Not Available No t Available potassium chloride ER 20 mEq tablet,ex tended release Take 1 tablet every day by oral route. 03/17 completed Not Available Not Available Not Available Folinic-P max 4 mg-50 mg-2 mg tablet Take 1 tablet every day by oral route. 06/03 completed Not Available Not Available Not Available ProAir RespiClic k 90 mcg/actua tion breath activated INHALE 1 PUFF BY MOUTH EVERY 4 HOURS NEEDED FOR SHORTNES S OF BREATH active Not Available Not Available No t Available vitamins no.121-ir on 28 mg-folic acid 800 mcg tablet Take 1 tablet every day by oral route. 03/17 completed Not Available Not Available Not Available Vitals Date Recorded Body weight Body temperature Heart rate Oxygen saturation Respiratory rate Pain severity - 0-10 verbal numeric rating [Score] - Reported Systolic And Diastolic Provider Name and Address Organization Details Last Updated DateTime 3 58121.7 4 g 97.6 [degF] 118 /min 97 % 20 /min 5 130/80 mm[Hg] Lupis Lucas [place] - [facility] 3 16:00:56 Date Recorded Body weight Body temperature Heart rate Respiratory rate Pain severity - 0-10 verbal numeric rating [Score] - Reported Systolic And Diastolic Provider Name and Address Organization Details Last Updated DateTime 3 84118.7 9 g 98 [degF] 107 /min 20 /min 4 110/70 mm[Hg] Lupis Lucas [place] - [facility] 3 14:50:53 Date Recorded Body mass index (BMI) Body weight Heart rate Oxygen saturation Respiratory rate Systolic And Diastolic Provider Name and Address Organization Details Last Updated DateTime 8 24.2 kg/m2 98173.1 5 g 114 /min 93 % 18 /min 112/78 mm[Hg] Kathleen Driscoll [place] - [facility] 8 10:34:54 Date Recorded Body height Pain severity - 0-10 verbal numeric rating [Score] - Reported Provider Name and Address Organization Details Last Updated DateTime 04/01/2018 175.26 cm 7 Shakila Santos [place] - [facility] 06/23/2018 15:45:56 Date Recorded Body height Body mass index (BMI) Body weight Body temperature Heart rate Oxygen saturation Respiratory rate Systolic And Diastolic Provider Name and Address Organization Details Last Updated DateTime 4 175.26 cm 20 kg/m2 94501.0 7 g 97.7 [degF] 92 /min 97 % 18 /min 146/82 mm[Hg] Jahaira Stears [place] - [facility] 4 13:43:57 Date Recorded Body height Body mass index (BMI) Body weight Heart rate Oxygen saturation Respiratory rate Pain severity - 0-10 verbal numeric rating [Score] - Reported Systolic And Diastolic Provider Name and Address Organization Details Last Updated DateTime 8 175.26 cm 23.6 kg/m2 16739.7 8 g 88 /min 97 % 20 /min 8 112/70 mm[Hg] Shakilaellie Manns [place] - [facility] 8 14:28:11 Social History Question Answer Notes LastModified by SilMachat ion Details LastModified Time Tobacco Smoking Status Current Every Day Smoker Amy Goldstein massimo [place] - [facility] 03/05/2016 10:43:01 Do You Have An Advance Directive? No Information not available 08/22/2016 Are You Blind Or Do You Have Difficulty Seeing? No Information not available 08/22/2016 What Is Your Level Of Caffeine Consumption? Occasional Information not available 04/19/2016 How Much Tobacco Do You Chew? None Information not available 08/22/2016 Are You Deaf Or Do You Have Serious Difficulty Hearing? No Information not available 08/22/2016 What Type Of Diet Are You Following? REGULAR Information not available 08/22/2016 Which Illicit Or Recreational Drugs Have You Used? None Information not available 04/19/2016 What Is The Highest Grade Or Level Of School You Have Completed Or The Highest Degree You Have Received? [id number] [email or web address] Information not available 12/03/2017 How Many Days Of Moderate To Strenuous Exercise, Like A Brisk Walk, Did You Do In The Last 7 Days? 1 Information not available 12/03/2017 On Those Days That You Engage In Moderate To Strenuous Exercise, How Many Minutes, On Average, Do You Exercise? 1 [email or web address] Information not available 12/03/2017 Swimming/diving No Informati on not available 11/13/2016 Have There Been Any Changes To Your Family Or Social Situation? No Information no t available 04/22/2024 How Hard Is It For You To Pay For The Very Basics Like Food, Housing, Medical Care, And Heating? [id number] [email or web address] Information not available 12/03/2017 Hard Of Hearing Or Deaf In One Or Both Ears? No [email or web address] Information not available 11/13/2016 Legally Blind In One Or Both Eyes? No [email or web address] Information no t available 11/13/2016 Live Alone Or With Others? Alone Information not available 08/22/2016 Do You Have A Medical Power Of Hand I Blocker? No Information not available 04/22/2024 What Was The Date Of Your Most Recent Tobacco Screening? 04/21/2024 Information not available 04/22/2024 How Many Children Do You Have? 0 Information not available 08/22/2016 What Is Your Current Pack Years? [email or web address] Information not available 04/22/2024 What Is Your Relationship Status? Information not available 08/22/2016 Seat Belts Used Routinely Yes Information not available 08/22/2016 Smoke Alarm In Home Yes Information not available 08/22/2016 Do You Have Smoke And Carbon Monoxide Detectors In Your Home? Yes Information not available 04/22/2024 At What Age Did You Start Smoking Tobacco? 13 Information not available 04/22/2024 How Much Tobacco Do You Smoke? 2 PPD Information not available 06/03/2022 General Stress Level Low Information not available 08/22/2016 Do You Use Sunscreen Routinely? No [email or web address] Information not available 11/13/2016 Has Tobacco Cessation Counseling Been Provided? Yes Information not available 11/13/2016 On What Date Was Tobacco Cessation Counseling Provided? 05/18/2018 [email or web address] Information not available 05/18/2018 How Many Years Have You Smoked Tobacco? 46 Information not available 06/03/2022 Do You Have Difficulty Walking Or Climbing Stairs? No Information not available 08/22/2016 Sex: Male Functional Status Question Answer Note LastModified by Organizat ion Details LastModified Time How many times per week do you consume alcohol? 1-2 times per week Information not available 04/22/2024 Do you use any illicit or recreational drugs? No Information not available 04/22/2024 Do you or have you ever used any other forms of tobacco or nicotine? No Information not available 04/22/2024 What is your level of alcohol consumption? Occasional [email or web address] Information not available 03/05/2016 Are you currently employed? No Information not available 08/22/2016 Do you have transportation difficulties? No Information not available 04/22/2024 Are you able to walk independently without assistance or assistive devices? [email or web address] Information not available 11/13/2016 Do you have difficulty doing errands alone? No Information not available 08/22/2016 Are you able to care for yourself independently? Yes Information not available 08/22/2016 What is your occupation? unemployed Information not available 07/11/2017 Do you have difficulty dressing, bathing, grooming, or toileting? No Information not available 08/22/2016 What is your exercise level? Occasional Information not available 08/22/2016 Mental Status Question Answer Note LastModified by Organizat ion Details LastModified Time Do you feel stressed (tense, restless, nervous, or anxious, or unable to sleep at night)? [id number] [email or web address] Information not available 12/03/2017 Do you have difficulty concentrating, remembering or making decisions? No Information no t available 08/22/2016 Family History Relationship Description Onset Age of this Age Resolved Age Notes LastModified by Organization Details LastModified Time Unspecified Relation Family history of pulmonary emphysema [email or web address] Not available 2015 13:11:03 Medical History Condition Response Anxiety Disorder Y Acid Reflux (GERD) Y COPD Y Immunizations Vaccine Type Date Status Note Provider Nam e and Address Organization Details Recorded Time Influenza, split virus, trivalent, PF 4 completed Jahaira Zepeda null, [place] - [facility] 04/22/2024 13:44:15 Influenza, split virus, quadrivalent, PF 0 completed Lupis Lucas null, [place] - [facility] 06/03/2022 16:01:17 Influenza, split virus, quadrivalent, PF 2 completed Lupis Lucas null, [place] - [facility] 06/03/2022 16:01:17 pneumococcal polysaccharide PPV23 6 completed Lupis Lucas null, [place] - [facility] 06/03/2022 16:01:17 Pneumococcal conjugate PCV 13 2 completed FUENTES Thor[place] - [facility] 06/03/2022 16:01:17 pneumococcal polysaccharide PPV23 6 completed Not Available [facility] 06/05/2019 03:54:16 Past Encounters Encounter ID Performer Location Encounter Start Date Encounter Closed Date Diagnosis/Indication Diagnosis SNOMED-CT Code Diagnosis ICD10 Code Diagnosis IMO Codes Diagnosis Note [id number] [facility] [address] [place] [address] 04/06/2015 00:00:00 [id number] [facility] [address] [place] [address] 07/24/2015 00:00:00 [id number] [facility] [address] [place] [address] 08/08/2015 00:00:00 [id number] [facility] [address] [place] [address] 08/15/2015 00:00:00 [id number] [facility] [address] [place] [address] 11/08/2015 00:00:00 [id number] [facility] [address] [place] [address] 03/27/2015 00:00:00 [id number] Pantera Cline MD [address] [place] [address] 03/05/2016 10:26:53 03/05/2016 13:15:49 Alcoholic cirrhosis 797362151 K70.30 Anemia 307818088 D64.9 Influenza vaccine needed 3298247094 106 Z23 Administra tion of pneumococcal vaccine 64730699 Z23 [id number] Pantera Cline MD [address] [address] 04/01/2016 13:28:48 04/01/2016 15:24:20 Cobalamin deficiency 783846677 E53.8 Pain of joint 19364024 M 25.50 Pain of sh oulder region 57831614 M25.511 Cough 67838402 R05 Standard c hest X-ray abnormal 025564644 R93.8 Tobacco user 837125685 Z 72.0 [id number] Pantera Cline MD [address] [place] [address] 04/03/2016 13:03:01 04/03/2016 14:57:21 Bronchitis 42658654 J40 Squamous c ell carcinoma of bronchus 362622324 C34.90 [id number] Pantera Cline MD [address] [place] [address] 04/15/2016 13:26:00 04/15/2016 16:21:16 Cervical radiculopathy 00351848 M54.12 Metastatic malignant neoplasm to bone 58225653 C79.51 [id number] Umang Martínez MD [address] [place] [address] 04/19/2016 13:18:46 04/19/2016 14:09:40 Upper respiratory infection 98681325 J06.9 Tobacco user 851497319 Z 72.0 encourage patient to stop smoking [id number] Pantera Cline MD [address] [place] [address] 06/24/2016 10:42:30 06/24/2016 11:53:04 Tobacco user 949539728 Z72.0 History of alcoholism 16 9827733 F10.21 Cobalamin deficiency 190 178530 E53.8 Acid reflux 543615690 K2 1.9 [id number] Genevieve Sloan APRN [address] [place] [address] 08/22/2016 10:25:08 08/22/2016 11:38:59 Upper respiratory infection 69083391 J06.9 Malignant neoplasm of lung 571101410 C34.90 [id number] Pantera Cline MD [address] [place] [address] 09/25/2016 14:45:13 09/25/2016 16:02:13 Cobalamin deficiency 969544677 E53.8 Malignant neoplasm of lung 212787432 C34.90 Acid reflux 118283967 K2 1.9 History of alcoholism 16 8616579 F10.21 Tobacco user 231732423 Z 72.0 Squamous c ell carcinoma of bronchus 646559814 C34.90 Body mass index 25-29 - overweight 053335180 Z68.29 [id number] Pantera Cline MD [address] [place] [address] 10/29/2016 14:19:30 10/29/2016 17:34:25 History of alcoholism 593336305 F10.21 Cobalamin deficiency 190 417116 E53.8 Acid reflux 056519756 K2 1.9 Malignant neoplasm of lung 630744134 C34.90 Fatigue 46486469 R53.83 Anxiety 32284024 F41.9 [id number] Pantera Cline MD [address] [place] [address] 12/10/2016 14:11:30 12/10/2016 15:34:08 History of alcoholism 944907396 F10.21 Cobalamin deficiency 190 516177 E53.8 Malignant neoplasm of lung 286706318 C34.90 Acid reflux 356774981 K2 1.9 Tobacco user 175369669 Z 72.0 Gastroesop hageal reflux disease 787112014 K21.0 Anxiety 88026726 F41.9 Fatigue 62614065 R53.83 [id number] Pantera Cline MD [address] [place] [address] 01/08/2017 12:33:09 01/08/2017 13:38:54 Acid reflux 813545388 K21.9 Abdominal pain 86807082 R10.9 Alcoholism 0793340 F10.2 0 Stomach cramps 21739674 R10.9 Anxiety 85352609 F41.9 Tremor 41549071 R25.1 Decrease in appetite 643 61514 R63.0 Malignant neoplasm of lung 090348094 C34.90 [id number] Pantera Cline MD [address] [place] [address] 03/26/2017 10:34:13 03/26/2017 13:16:23 History of alcoholism 291070127 F10.21 Cobalamin deficiency 190 711049 E53.8 Malignant neoplasm of lung 224537942 C34.90 Acid reflux 433271371 K2 1.9 Gastritis 9480966 K29.70 [id number] Pantera Cline MD [address] [place] [address] 07/02/2017 13:36:42 07/02/2017 15:19:07 History of alcoholism 723815761 F10.21 Cobalamin deficiency 190 526237 E53.8 Malignant neoplasm of lung 154009269 C34.90 Acid reflux 770565286 K2 1.9 Metastatic malignant neoplasm to bone 51165086 C79.51 Aftercare 394836549 Z51. 89 hospital follow up Tobacco user 658475197 Z 72.0 Restless sleep 62315549 G47.9 Anxiety 55822340 F41.9 Nausea 101208662 R11.0 [id number] Lauryn Rust APRN [address] [place] [address] 07/10/2017 13:02:30 07/10/2017 15:29:56 Influenza-like symptoms 361976012 R68.89 Acute sinusitis 27377808 J01.90 [id number] Pantera Cline MD [address] [place] [address] 07/16/2017 10:19:38 07/16/2017 11:06:20 History of alcoholism 627065329 F10.21 Cobalamin deficiency 190 078649 E53.8 Malignant neoplasm of lung 930664889 C34.90 Acid reflux 351421102 K2 1.9 Metastatic malignant neoplasm to bone 38422255 C79.51 Tobacco user 643334957 Z 72.0 Restless sleep 57740710 G47.9 Anxiety 15404881 F41.9 Nausea 962345908 R11.0 Bronchitis 59021263 J40 Wheezing 79579085 R06.2 [id number] Nj Jones MD [facility] [address] [facility] [place] [address] 08/18/2017 11:36:04 08/18/2017 12:01:49 Malignant neoplasm of lung 032636339 C34.90 Chronic cough 98318420 R 05 [id number] Pantera Cline MD [address] [place] [address] 09/10/2017 13:47:49 09/10/2017 14:58:25 Tobacco user 029637383 Z72.0 History of alcoholism 16 9121289 F10.21 Cobalamin deficiency 190 254546 E53.8 Acid reflux 588674705 K2 1.9 Anxiety 47070832 F41.9 Malignant neoplasm of lung 613176096 C34.90 Nicotine dependence 5629 4008 F17.200 Abdominal pain 46146759 R10.9 Nausea 773329657 R11.0 Low back pain 325815625 M54.5 [id number] Pantera Cline MD [address] [address] 12/03/2017 14:26:28 12/03/2017 15:43:40 Aftercare 414321315 Z51.89 hospital follow up History of alcoholism 16 0627649 F10.21 Hyperlipidemia 43139158 E78.5 Squamous c ell carcinoma of bronchus 047660265 C34.90 Diarrhea 29488254 R19.7 Cobalamin deficiency 190 053093 E53.8 Malignant neoplasm of lung 831443488 C34.90 Acid reflux 663356346 K2 1.9 Body mass index 25-29 - overweight 182404191 Z68.29 [id number] Pantera Cline MD [facility] [address] [place], [place] [address] [place] [address] 04/01/2018 09:56:40 04/01/2018 11:25:34 Chronic anxiety 113788921 F41.9 Squamous c ell carcinoma of bronchus 739251127 C34.90 Tobacco user 306480562 Z 72.0 History of alcoholism 16 3423997 F10.21 Muscle weakness 92426117 M62.81 Hypoxemia 543686990 R09. 02 Blood in urine 52864481 R31.9 per caregiver Cirrhosis of liver 60721 007 K74.60 Diarrhea 97692011 R19.7 Cobalamin deficiency 190 462134 E53.8 Hypokalemia 35528322 E87 .6 [id number] Pantera Cline MD [facility] [address] [place] [address] 05/18/2018 14:15:27 05/18/2018 15:43:55 Chronic anxiety 111737688 F41.9 Squamous c ell carcinoma of bronchus 128399590 C34.90 Tobacco user 070902163 Z 72.0 History of alcoholism 16 8317124 F10.21 Nausea 877898456 R11.0 Diarrhea 81305890 R19.7 Cobalamin deficiency 190 201058 E53.8 Acid reflux 421085522 K2 1.9 Fatigue 02371473 R53.83 Unexplaine d weight loss 158826227 R63.4 [id number] Juliana Hernandez [place] [address] 06/03/2022 15:47:56 06/03/2022 16:43:31 Decreased urine output 760960509 R34 increase fluid intakeif any issues go to ed anum Nausea and vomiting 1693 1999 R11.2 [id number] Juliana Hernandez [place] [address] 03/17/2023 14:32:16 03/17/2023 15:24:27 Pharyngitis 492342869 J02.[address] edgar about steroids. he oked prednisone strep negative [id number] Juliana Hernandez [place] [address] 04/22/2024 10:14:35 04/30/2024 13:18:03 Atypical pneumonia 832893561 J18.[address] edgar in two daysif symptoms worsen or no improvemen t return Health Concerns Section Related Observation LastModified by Organization Detai ls LastModified Time None Recorded Concern Status LastModified by Organization Details LastModified Time None Recorded Advance Directives Directive N: Payers Insurance Date Sequence Insurance Name Policy Number Policy Cheung Covered Member ID Cheung Member ID Guarantor Name 04/22/2024 [place] [employer]MED[place]ID[place] [id number] Rihcard Rice [id number] Richard Rice 04/22/2024 [place] [id number] Richard Rice [id number] Richard Rice 04/22/2024 [place] [id number] Richard Rice [id number] Richard Rice 05/03/2024 1 [employer] [place]) [id number] Richard Rice [id number] Richard Rice 07/16/2016 1 UNSPECIFIED REMIT PAYOR Richard Hermelindo 04/22/2024 [place] [id number] Richard Rice [id number] Richard Rice 04/22/2024 [place] [id number] Richard Rice [id number] Richard Hermelindo Notes Date Note Type Note Provider Name and Address Organization Details Recorded Time 8 text/html Hospitalization Contact RecordReported by Patient FatigueReported by PatientHPIFor severity, patient reportschange in sleep patternsandchanges in normal activities. For modifying factors, patient reportsnew stressors in life. For associated symptoms, patient reportsalcohol consumption,joint pain,sob, anddizziness. For status, patient reportschronic. For duration, patient reportsconstant. For timing, patient reportsgradual. Anxiety/DepressionReported by PatientHPIFor context, patient reportsmajor life stressorsandetoh use(health issues, history of alcohol). For associated symptoms, patient reportsrestlessness/agitati on,sleep disturbances, andanxiety with muscle tension. For quality, patient reportssymptoms improved. For severity, patient reportsdenies suicidal ideations. For duration, patient reportssymptoms lasting over 2 weeks. For onset/timing, patient reportsgradual. Emergency Department Follow-Up RecordReported by PatientROS as noted in the HPI diarrhea nausea and vomiting swollen abd watery diarrhea sob 12 pk/day doesn't go to chemotherapy [place] - [facility] 06/23/2018 15:49:18 8 text/html FatigueReported by PatientHPIFor severity, patient reportschange in sleep patternsandchanges in normal activities. For modifying factors, patient reportsnew stressors in life. For associated symptoms, patient reportsalcohol consumption,joint pain,sob, anddizziness. For status, patient reportschronic. For duration, patient reportsconstant. For timing, patient reportsgradual. Anxiety/DepressionReported by PatientHPIFor context, patient reportsmajor life stressorsandetoh use(health issues, history of alcohol). For associated symptoms, patient reportsrestlessness/agitati on,sleep disturbances, andanxiety with muscle tension. For quality, patient reportssymptoms improved. For severity, patient reportsdenies suicidal ideations. For duration, patient reportssymptoms lasting over 2 weeks. For onset/timing, patient reportsgradual. Abdominal PainReported by PatientAbdominal PainFor quality, patient reportspain,bloating,crampi ng,aching,fullness, andtender. For associated symptoms, patient reportsnausea,diarrhea,decr eased appetite, andweight loss. For location, patient reportsepigastric. For severity, patient reportsmoderateandpain level 8/10. For duration, patient reportsconstant. For onset/timing, patient reportsgradual. For modifying factors, patient reportsnothing gives relief.ROS as noted in the HPI pain right side constantswelling left nipple tenderbreathing okdiarrhea 6 monthsdecreased appetite has not been to oncology for months off keytruda was to take to [facility] due to etoh [place], [place] - [facility] 05/18/2018 16:37:01 3 text/html 57 yr old male with urinary tract complaints. States he is unable to urinate much and it is very dark in color. Symptoms started about 4 days ago. pt denies burning,freq or urgency. pt states he just does not seem to be going as much as he did.pt states he has nausea and vomiting and unable to eat or drink much.refuses to go to ed for jonathanal Juliana Hernandez, [employer] WORK[employer] [address], [place], [address], [place] - [facility] 06/03/2022 16:32:31 3 text/html 58 yr old male presents with a sore throat for a week. He says it is more of a discomfort than bad pain. He was intubated on 03/10 for a procedure. Juliana Hernandez APRN [address], [place], [address], [facility] - [facility] 03/17/2023 16:13:21 4 text/html ROS as noted in the HPI 59 year old male who presents to the office on Friday04-20-24 with concerns ofcough, congestion, yellow phelgm and shortness of breathjust [facility]. Juliana Hernandez APRN [address], [place], [address], [facility] - [facility] 04/30/2024 08:19:25
--- OUTSIDE RECORDS SUMMARY | 2025-05-04 13:29 | XMS_ITS | Clinical Summary ---
Author Organization [facility] Address [address] [place] [address] Care Team Providers Care Internship Name Role Phone Richard Edgar MD Primary Care Provider [phone] Social History Tobacco Use Types Packs/Day Years [...] patient's age to complete this topic Insurance [place] MED[place]ID [employer] Care Teams Internship Relationship Specialty [place] [id number] [place] [address] PCP - General Family Medicine 07/20/20
--- OUTSIDE RECORDS SUMMARY | 2025-05-04 13:29 | XMS_ITS | Encounter Summary ---
Author Organization [facility] Address [address] [place] [address] Care Team Providers Care Recreation Therapy Teacher Name Role Phone Richard Edgar MD Primary Care Provider [phone] Encounter Details Date Type Department Care Team (Latest Contact Info) Description 11/03/2023 Community [facility] [address] [place] [address] Richard Edgar MD [facility] [place] [address] None to low serum cortisol response with [...] drink first t yung in the morning (EYE-EDGE ROLLER) to 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 or to get [...] as of this encounter Plan of Treatment Not on file documented as of this encounter Visit Diagnoses [...] documented as of this encounter Care Teams Recreation Therapy Teacher Relationship Specialty Start Date End Date Richard Edgar MD PCP - General 09/29/20 documented as of this encounter
--- OUTSIDE RECORDS SUMMARY | 2025-05-04 13:29 | XMS_ITS | Clinical Summary ---
Author Organization [facility] Address [address] [place] [address] Care Team Providers Care Joiner Name Role Phone Unknown, Attending Provider Primary [...] therelease of HIV test results or diagnoses. [id number] Allergies Active Allergy Reactions Criticality Noted [...] (1 - 1-dose 75+ series) 2040 Insurance [facility] care Address: [facility] [address] [place] [address] Care Teams Joiner Relationship Specialty Start Date End Date Unknown, Attending Provider PCP - General 11/05/22
--- OUTSIDE RECORDS SUMMARY | 2025-05-04 13:29 | XMS_ITS ---
Author Organization [facility] Address [address], [address] [place] [address] Care Team Providers Care Head Of Digital Name Role Phone Marlyn Quintero MD, Pantera Primary [facility] Active Problems Problem Noted Date Diagnosed [...]
--- OUTSIDE RECORDS SUMMARY | 2025-05-04 13:29 | XMS_ITS | Clinical Summary ---
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
== END 2025-05-04 23:59 | disposition home or self-care (01) ==
LOC: RAD 12:43
PROVIDERS: PCP Family Medicine; Visit Provider Nurse Practitioner Family
DX: M25.512 Pain in left shoulder (principal)
CPT/HCPCS: 73030